=== PATIENT | female | born 1970 | race Caucasian/White ===

== ENCOUNTER 2022-07-25 21:28 | Emergency (ER) | payer MEDICARE, SELFPAY ==
[2022-07-25 21:30] VITALS: BP 140/81; PULSE 71; RESP 20; TEMP 36.6; O2SAT 93; BMI 84.9
[2022-07-25 21:50] VITALS: PULSE 71
--- NOTE | 2022-07-25 22:02 | ED_ITS ---
HPI - Extremity Injury (Lower) General Chief Complaint: Extremity Injury, Lower Stated Complaint: LOWER EXTREMITY INJURY Time Seen by Provider: 07/25/22 21:58 Source: patient Mode of arrival: ambulance Limitations: no limitations History of Present Illness HPI Narrative: patient has chronic numbness of her left lower extremity. Has left foot drop and wears AFO brace. has walk in tub. Step into tub with her right foot. when she step in with the left foot it twisted. She now presents via Squad complaining of pain of the ankle. Denies other injury MD complaint: Reports ankle injury Onset (ago): hour(s) Injury: Left: ankle Related Data Home Medications Medication Instructions Recorded Confirmed apixaban 5 mg tablet (Eliquis) 5 mg PO DAILY 07/25/22 07/25/22 gabapentin 300 mg capsule 300 mg PO BID 07/25/22 07/25/22 metoprolol tartrate 25 mg tablet 25 mg PO DAILY 07/25/22 07/25/22 solifenacin 5 mg tablet 5 mg PO DAILY 07/25/22 07/25/22 Allergies Allergy/AdvReac Type Severity Reaction Status Date / Time No Known Drug Allergies Allergy Verified 07/25/22 21:35 Review of Systems ROS Status of ROS 10 or more systems reviewed and unremarkable except as noted in history and below [facility] PFS Social History Smoking status: Never smoker Exam Constitutional Vital Signs - 24 hr 07/25/22 21:30 07/25/22 21:50 Temperature 97.9 F Pulse Rate [Monitor] 71 71 Respiratory Rate 20 Blood Pressure [Right Arm] 140/81 H Pulse Oximetry 93 L Oxygen Delivery Method Room Air Common normals: no apparent distress, oriented x3 and alert HENMT Common normals: normocephalic and head/scalp atraumatic Eye Common normals: PERRL and EOMs intact bilaterally Respiratory Common normals: normal respiratory effort, no retractions and no use of acc essory muscles Cardio Common normals: no JVD, regular rate, regular rhythm, S1 normal heart sound and S2 normal heart sound GI Common normals: Normal to inspection, nondistended, normoactive bowel sounds present Extremity Other: mild swelling left lat malleolus. No discoloration. Mild tenderness Neuro Common normals: oriented x3 and CN's II-XII intact bilaterally Psych Appearance: grossly normal Course Vital Signs Vital signs: Vital Signs Temperature 97.9 F 07/25/22 21:30 Pulse Rate 71 07/25/22 21:30 Respiratory Rate 20 07/25/22 21:30 Blood Pressure 140/81 H 07/25/22 21:30 Pulse Oximetry 93 L 07/25/22 21:30 Oxygen Delivery Method Room Air 07/25/22 21:30 Temperature 97.9 F 07/25/22 21:30 Pulse Rate 71 07/25/22 21:50 Respiratory Rate 20 07/25/22 21:30 Blood Pressure 140/81 H 07/25/22 21:30 Pulse Oximetry 93 L 07/25/22 21:30 Oxygen Delivery Method Room Air 07/25/22 21:30 MDM - Extremity Injury (Lower) MDM Narrative Medical decision making narrative: patient presents after twisting her left ankle stepping into her walk in tub. she has drop foot left ankle. Exam with mild swelling and tenderness. Xray of the left ankle and foot neg. Patient informed of the diagnosis of ankle sprain and discharged home Discharge Plan Discharge Chief Complaint: Extremity Injury, Lower Clinical Impression: Ankle sprain and strain Patient Disposition: Home, Self-Care Prescriptions / Home Meds: No Action Eliquis 5 mg tablet 5 mg PO DAILY gabapentin 300 mg capsule 300 mg PO BID metoprolol tartrate 25 mg tablet 25 mg PO DAILY solifenacin 5 mg tablet 5 mg PO DAILY Instructions: Ankle Sprain (ED) Stand Alone Forms: Portal Instructions Referrals: Physician,Non-Staff, MD [Primary Care Provider] - 1 week Follow Up Appointments: follow up with the family doctor next week
--- NOTE | 2022-07-25 22:09 | XR_ITS ---
The [address] [address] Patient Name: LUIS DANIEL SMITH MRN: [id number] date: 1970 Sex: F Assigned Patient Location: ER Current Patient Location: ER Accession/Order Number: [id number] Exam Date: 07/25/2022 22:20 Report Date: 07/25/2022 22:46 At the request of: KEV RAMIREZ Procedure: XR foot LT min 3V EXAM: XR foot LT min 3V, XR ankle LT min 3V HISTORY: Posterior foot getting into tub COMPARISON: None. TECHNIQUE: 3 views of the ankle and 3 views of the foot FINDINGS: Global decreased osseous mineralization and soft tissue irregularities consistent with patient's nerve damage. No visualized acute fracture, dislocation, subluxation or osseous lesion. No acute soft tissue edema. Joint spaces are unremarkable. IMPRESSION: No visualized acute irregularity. Electronically authenticated by: BRAD RUFFIN Date: 07/25/2022 22:46
--- NOTE | 2022-07-25 22:09 | XR_ITS ---
The [address] [address] Patient Name: LUIS DANIEL SMITH MRN: [id number] date: 1970 Sex: F Assigned Patient Location: ER Current Patient Location: ER Accession/Order Number: [id number] Exam Date: 07/25/2022 22:20 Report Date: 07/25/2022 22:46 At the request of: KEV RAMIREZ Procedure: XR ankle LT min 3V EXAM: XR foot LT min 3V, XR ankle LT min 3V HISTORY: Posterior foot getting into tub COMPARISON: None. TECHNIQUE: 3 views of the ankle and 3 views of the foot FINDINGS: Global decreased osseous mineralization and soft tissue irregularities consistent with patient's nerve damage. No visualized acute fracture, dislocation, subluxation or osseous lesion. No acute soft tissue edema. Joint spaces are unremarkable. IMPRESSION: No visualized acute irregularity. Electronically authenticated by: BRAD RUFFIN Date: 07/25/2022 22:46
== END 2022-07-26 00:09 | disposition home or self-care (01) ==
PROVIDERS: Emergency Provider Internal Medicine
DX: S93.402A Sprain of unspecified ligament of left ankle, initial encounter (principal); X50.1XXA Overexertion from prolonged static or awkward postures, initial encounter; M21.372 Foot drop, left foot; Z79.899 Other long term (current) drug therapy; Z79.01 Long term (current) use of anticoagulants
CPT/HCPCS: 73610; 73630; 99283

== ENCOUNTER 2022-08-06 10:05 | Outpatient (OUT) | payer MEDICARE, SELFPAY ==
--- NOTE | 2022-08-06 10:18 | XR_ITS ---
The [address] [address] Patient Name: LUIS DANIEL SMITH MRN: [id number] date: 1970 Sex: F Assigned Patient Location: [facility] Current Patient Location: [facility] Accession/Order Number: [id number] Exam Date: 08/06/2022 10:35 Report Date: 08/06/2022 11:13 At the request of: LON IBRAHIM Procedure: XR foot LT min 3V PROCEDURE: XR foot LT min 3V DATE: 08/06/2022 9:35 AM CDT COMPARISONS: 07/25/2022 CLINICAL INDICATION: FALL, SUBSEQUENT ENCOUNTER W19.XXXD FINDINGS: There is no evidence of fractures or other acute osseous abnormalities. There is diffuse bone demineralization as on previous exam 07/25/2022. Soft tissue swelling is noted about the foot and ankle. There is a small spur off the posterior inferior os calcis. IMPRESSION: 1. Bone demineralization 2. No evidence of foot fracture . Electronically authenticated by: SARAH MARCELO Date: 08/06/2022 11:13
--- NOTE | 2022-08-06 10:18 | XR_ITS ---
The [address] [address] Patient Name: LUIS DANIEL SMITH MRN: [id number] date: 1970 Sex: F Assigned Patient Location: [facility] Current Patient Location: [facility] Accession/Order Number: [id number] Exam Date: 08/06/2022 10:35 Report Date: 08/06/2022 11:10 At the request of: LON IBRAHIM Procedure: XR ankle LT min 3V PROCEDURE: XR ankle LT min 3V DATE: 08/06/2022 9:35 AM CDT COMPARISONS: 07/25/2022 CLINICAL INDICATION: FALL, SUBSEQUENT ENCOUNTER W19.XXXD Requisition states: Left foot and ankle pain x2 weeks. FINDINGS: There is irregularity of the distal fibula, better seen on today's exam than on previous exam. This could represent nondisplaced avulsion of the distal fibula.. The ankle mortise is intact. There is diffuse bone demineralization, stable. There is diffuse soft tissue swelling, stable from previous exam. There are small spur off the posterior inferior os calcis. There is diffuse soft tissue swelling about the foot and ankle. IMPRESSION: 1. Bone demineralization 2. Soft tissue swelling 3. Today's images show irregularity of the distal fibula which may represent recent or subacute minimally distracted avulsion fracture related to recent trauma. This is not well visualized on previous ankle radiographs from 07/25/2022 . Electronically authenticated by: SARAH MARCELO Date: 08/06/2022 11:10
== END 2022-08-06 10:06 | disposition home or self-care (01) ==
LOC: RAD 10:11
PROVIDERS: PCP Family Medicine; Visit Provider Family Medicine
DX: M79.672 Pain in left foot (principal); W19.XXXD Unspecified fall, subsequent encounter
CPT/HCPCS: 73610; 73630

== ENCOUNTER 2022-10-20 13:43 | Emergency (ER) | payer MEDICARE, SELFPAY ==
[2022-10-20 14:03] VITALS: BP 127/96; PULSE 84; RESP 16; TEMP 36.7; O2SAT 95; BMI 38.5
--- NOTE | 2022-10-20 14:04 | ED_ITS ---
HPI - Female Genitourinary General Chief complaint: Urogenital-Female Stated complaint: BOTTOM AREA BLEEDING Time Seen by Provider: 10/20/22 13:50 History of Present Illness HPI Narrative: 52-year-old female presents for blood in her urine. She'll only sees it when she urinates. No blood in her stool. She has decreased sensation from her waist down because of an old surgery so she doesn't have much sensation. She is able to walk with a walker. No complaints of back pain. There was no injury. Symptoms are intermittent. No fever or vomiting. Related Data Home Medications Medication Instructions Recorded Confirmed apixaban 5 mg tablet (Eliquis) 5 mg PO DAILY 07/25/22 07/25/22 gabapentin 300 mg capsule 300 mg PO BID 07/25/22 07/25/22 metoprolol tartrate 25 mg tablet 25 mg PO DAILY 07/25/22 07/25/22 solifenacin 5 mg tablet 5 mg PO DAILY 07/25/22 07/25/22 Previous Rx's Medication Instructions Recorded cephalexin 500 mg capsule 500 mg PO TID 7 days #21 caps 10/20/22 Allergies Allergy/AdvReac Type Severity Reaction Status Date / Time adhesive tape AdvReac Intermediate Rash Verified 10/20/22 14:07 Review of Systems ROS Narrative A ten point review of systems is negative except as noted above. PFSH PFSH Social History Smoking status: Never smoker Exam Narrative Exam Narrative: Nurses note and vital signs reviewed and patient is not hypoxic. General: The patient appears well and in no apparent distress. Patient is resting comfortably on cart. Skin: Warm, dry, no pallor noted. There is no rash noted. Head: Normocephalic, atraumatic Eye: Normal conjunctiva, no drainage Ears, Nose, Mouth, and Throat: oral mucosa is moist. Nares patent. Cardiovascular: Regular Rate and Rhythm Respiratory: Patient is in no distress, no accessory muscle use, lungs are clear to auscultation, no wheezing, rales or rhonchi Back: non-tender GI: obese and nontender Musculoskeletal: The patient has no evidence of calf tenderness, no pitting edema, symmetrical pulses noted bilaterally Neurological: A&O, normal speech Psychiatric: Cooperative Constitutional Vital Signs, click to edit/add: Last Vital Signs Temp 98.1 F 10/20/22 14:03 Pulse 84 10/20/22 14:03 Resp 16 10/20/22 14:03 BP 127/96 H 10/20/22 14:03 Pulse Ox 95 10/20/22 14:03 O2 Del Method Room Air 10/20/22 14:03 Course Vital Signs Vital signs: Vital Signs Temperature 98.1 F 10/20/22 14:03 Pulse Rate 84 10/20/22 14:03 Respiratory Rate 16 10/20/22 14:03 Blood Pressure 127/96 H 10/20/22 14:03 Pulse Oximetry 95 10/20/22 14:03 Oxygen Delivery Method Room Air 10/20/22 14:03 Temperature 98.1 F 10/20/22 14:03 Pulse Rate 84 10/20/22 14:03 Respiratory Rate 16 10/20/22 14:03 Blood Pressure 127/96 H 10/20/22 14:03 Pulse Oximetry 95 10/20/22 14:03 Oxygen Delivery Method Room Air 10/20/22 14:03 MDM - Female Genitourinary MDM Narrative Medical decision making narrative: urinary tract infection identified and she's prescribed Keflex. She was started on here. I've no clinical suspicion of pyelonephritis. Treatment diagnosis and follow up are discussed with the patient. Differential Diagnosis Differential diagnosis: Likely urinary tract infection and other (kidney stone) Lab Data Attestation: I reviewed the patient's lab results. Labs: Lab Results 10/20/22 Range/Units 14:15 Urine Color Dk red A (YELLOW) Urine Clarity Turbid A (CLEAR) Urine pH 5.5 (5.0-9.0) Ur Specific [place] 1.015 (1.005-1.025) Urine Protein 100 A (NEG/TRACE) mg/dL Urine Glucose (UA) Negative (NEGATIVE) mg/dL Urine Ketones Negative (NEGATIVE) mg/dL Urine Occult Blood Large A (NEGATIVE) Urine Nitrite Negative (NEGATIVE) Urine Bilirubin Negative (NEGATIVE) Urine Urobilinogen 0.2 (0.2-1.0) EU/dL Ur Leukocyte Esterase Moderate A (NEGATIVE) Urine RBC >100 A (0-2) #/HPF Urine WBC 75-100 A (NONE SEEN) #/HPF Ur Squamous Epith Cells Few A (NONE/RARE) #/LPF Urine Bacteria Large A (NONE SEEN) #/HPF Urine Mucus None seen (NONE SEEN) Discharge Plan Discharge Chief Complaint: Urogenital-Female Clinical Impression: Urinary tract infection Patient Disposition: Home, Self-Care Time of Disposition Decision: 14:51 Condition: Good Mode of Transportation: Private Vehicle Prescriptions / Home Meds: New cephalexin 500 mg capsule 500 mg PO TID 7 Days Qty: 21 0RF No Action Eliquis 5 mg tablet 5 mg PO DAILY gabapentin 300 mg capsule 300 mg PO BID metoprolol tartrate 25 mg tablet 25 mg PO DAILY solifenacin 5 mg tablet 5 mg PO DAILY Instructions: Urinary Tract Infection in Women (ED) Stand Alone Forms: Portal Instructions Referrals: LON IBRAHIM [Primary Care Provider] - 1 week
[2022-10-20 14:31] LABS: Bilirubin Urine NEGATIVE (NEGATIVE); Blood Urine LARGE (NEGATIVE); Glucose Urine UA NEGATIVE (NEGATIVE); Ketones Urine NEGATIVE (NEGATIVE); Leukocyte Esterase Urine MODERATE (NEGATIVE); Nitrite Urine NEGATIVE (NEGATIVE); Protein Urine 100 mg/dL (NEG/TRACE); Specific Gravity Urine 1.015 (1.005-1.025); Urobilinogen Urine 0.2 EU/dL (0.2-1.0); pH Urine 5.5 (5.0-9.0)
[2022-10-20 14:34] LABS: Color Urine DK RED (YELLOW)
[2022-10-20 14:35] LABS: Clarity Urine TURBID (CLEAR)
[2022-10-20 14:36] LABS: Bacteria Urine LARGE #/HPF (NONE SEEN); Mucus Urine NONE SEEN (NONE SEEN); RBC Urine >100 #/HPF (0-2); Squamous Epithelial Cell Urine FEW #/LPF (NONE/RARE); WBC Urine 75-100 #/HPF (NONE SEEN)
[2022-10-20] MEDS: CEPHALEXIN 500 MG CAPSULE PO (15:04)
== END 2022-10-20 15:20 | disposition home or self-care (01) ==
PROVIDERS: Emergency Provider Emergency Medicine; PCP Family Medicine
DX: N39.0 Urinary tract infection, site not specified (principal); Z79.899 Other long term (current) drug therapy; Z79.01 Long term (current) use of anticoagulants
CPT/HCPCS: 81001; 87086; 87150; 87186; 99283

== ENCOUNTER 2023-03-01 09:40 | Outpatient (OUT) | payer MEDICARE, SELFPAY ==
--- NOTE | 2023-03-01 09:46 | MM_ITS ---
Patient Name: LUIS DANIEL SMITH MR#: [id number] : 1970 Exam Date: 03/01/2023 Ordering Doctor: DR LON IBRAHIM RADIOLOGY REPORT PROCEDURE: MM TOMOSYNTHESIS SCREENING BI COMPARISON: MAMMO SAKINA SCREEN, 09/04/2016. MAMMO SAKINA SCREEN, 09/03/2020. INDICATIONS: screening Calculator Name NCI Breast Cancer Risk Assessment Tool 5 Year Breast Cancer Risk 1.20% Lifetime Breast Cancer Risk 9.40% Personal Breast Cancer No Personal Ovarian Cancer No Treatments None Family Cancers None LOCATION: [facility] BREAST COMPOSITION: Scattered areas fibroglandular density. FINDINGS: DIAGNOSTIC CATEGORY 2--BENIGN FINDING. NO CHANGE FROM COMPARISON. Scattered benign-appearing calcifications are present. Bilateral partially inverted nipples, grossly stable RIGHT BREAST: No significant suspicious finding. LEFT BREAST: No significant suspicious finding. RECOMMENDATIONS: ROUTINE MAMMOGRAM AND CLINICAL EVALUATION IN 12 MONTHS. PLEASE NOTE: A NORMAL MAMMOGRAM DOES NOT EXCLUDE THE POSSIBILITY OF BREAST CANCER. A CLINICALLY SUSPICIOUS PALPABLE LUMP SHOULD BE BIOPSIED. Dictated by: Harjinder Murdock MD on 03/09/2023 at 14:38 Approved by: Harjinder Murdock MD on 03/09/2023 at 14:46
== END 2023-03-01 09:41 | disposition home or self-care (01) ==
LOC: MAMMO 09:40
PROVIDERS: PCP Family Medicine; Visit Provider Family Medicine
DX: Z12.31 Encounter for screening mammogram for malignant neoplasm of breast (principal)
CPT/HCPCS: 77063; 77067

== ENCOUNTER 2023-04-28 07:52 | Outpatient (OUT) | payer MEDICARE, SELFPAY ==
--- OUTSIDE RECORDS SUMMARY | 2023-04-28 07:57 | XMS_ITS | CCD ---
Author Organization [facility] Care Team Providers Care Bed Setter Name Role Phone KAELYN ZAIDI Referring Unavailable HECTOR, RUGEN M Primary Care Unavailable Hetcor Rugen M Primary Care Provider [phone] AHAKAELYN SANTOS Admitting Unavailable KAELYN ZAIDI Attending Unavailable HECTOR, RUGEN M Primary Care Unavailable GROUP, PSYCH COVERAGE Consulting Unavailabl e HECTOR, RUGEN M Primary Care Unavailable TIM KIM Consulting Unavailable FIDEL GUERRERO Admitting Unavailable IONA VANG Attending Unavailable YOLANDA FIDEL Consulting Unavailable ARLINE MOHJAILENE S Consulting Unavailable CYPEARLOR JANINA M Referring Unavailable HECTOR, RUGEN M Primary Care Unavailable CYJANINA GIBBS Referring Unavailable HECTOR, RUGEN M Primary Care Unavailable AK Procedure Practitioner Unavailab LON Arceo Primary Care Unavailable UNKNOWN, PROVIDER Admitting Unavailable UNKNOWN, PROVIDER Surgeon Unavailable UNKNOWN, PROVIDER Attending Unavailable LON IBRAHIM Referring Unavailable LON IBRAHIM Primary Care Physician [phone] Lon Ibrahim Unavailable DO Lon Ibrahim Primary Care Provider DO Lon Ibrahim Attending Provider [phone] LON IBRAHIM Attending Unavailable DR LON IBRAHIM Primary Care Unavailable DR LON IBRAHIM Admitting Unavailable Lon Ibrahim DO Primary Care Provider Unavailab Lon Arceo Primary Care Provider [phone] Ann Marie Mccrod CNP Unavailable Nicole KEENE Attending Unavailable Nicole KEENE Attending Unavailable Nicole KEENE Attending Unavailable Nicole KEENE Attending Unavailable Nicole KEENE Referring Unavailable RICE, Nicole W Attending Unavailable Cheatham, Mihir L Attending Unavailable RICE, Nicole W Attending Unavailable RICE, Nicole W Referring Unavailable Cheatham, Mihir L Attending Unavailable MARYJANE, ANGELITA E Attending Unavailable RICE, Nicole W Admitting Unavailable RICE, Nicole W Attending Unavailable RICE, Nicole W Referring Unavailable RICE, Nicole W Attending Unavailable RICE, Nicole W Admitting Unavailable MARYJANE, ANGELITA E Admitting Unavailable MARYJANE, ANGELITA E Attending Unavailable RICE, Nicole W Admitting Unavailable RICE, Nicole W Attending Unavailable Kuns DO, Lon R Primary Care Provider Unavailab le LON ANTONIO Referring Unavailab le KUNS, LON R Primary Care Unavailable BRYCE LARA Referring Unavailable KUNS, LON R Primary Care Unavailable ILSA PERALTA Attending Unavailable CAM CARVER Referring Unavailable Kelly Mcdowell Unavailable LEATHA Mcdowell Attending Provider Kuns, DO Lon Primary Care Provider Kuns, DO Lon Attending Provider Kuns, Lon Admitting Unavailable Kuns, Lon Primary Care Unavailable Kuns, Lon Attending Unavailable Kuns, Lon Admitting Unavailable Kuns, Lon Primary Care Unavailable Kuns, Lon Attending Unavailable NO FAMILY, PHYSICIAN Primary Care Unavailable Kelly Mcdowell Admitting Unavailable Kelly Mcdowell Attending Unavailable KUNS, LON BC Primary Care Unavailable BONUSTUANCHAMP Attending Unavailable KUNS, LON BC Primary Care Unavailable BONUS, CHAMP Referring Unavailable KUNS, LON BC Primary Care Unavailable PELLEMARITAMOISES Referring Unavailable PELLEMOISES Attending Unavailable WORTHAMS, JANINA Referring Unavailable KUNS, LON BC Primary Care Unavailable WORTHAMS, JANINA Referring Unavailable KUNS, LON BC Primary Care Unavailable WORTHAMS, JANINA Referring Unavailable KUNS, LON BC Primary Care Unavailable WORTHAMS, JANINA Referring Unavailable KUNS, LON BC Primary Care Unavailable APURVA CAMPA Attending Unavailable KUNS, LON BC Primary Care Unavailable APURVA CAMPA Referring Unavailable LON ANTONIO Referring Unavailab le KUNS, LON BC Primary Care Unavailable BRYCE LARA Attending Unavailable PELLEMOISES Attending Unavailable KUNS, LON BC Primary Care Unavailable BRYCE LARA Referring Unavailable PELLEMOISES Referring Unavailable KUNS, LON BC Primary Care Unavailable LON IBRAHIM Primary Care Unavailable MOISES WILLIS Referring Unavailable Allergies Allergy Classification Reported Allergen(s) Allergy Type Date of Onset Reaction(s) Facility (7 sources) Adhesive Tape; Translations: [Tape] Drug allergy Eruption (morphologic abnormality) [facility] (20 sources) Amoxicillin / Clavulanate Drug Allergy diarrhea, vomiting [facility] Other (20 sources) oxyCODONE; Translations: [OXYCODONE] Drug Allergy 3 Unknown [facility] (3 sources) Adhesive Tape; Translations: [adhesive tape] Propensity to adverse reactions 1 itchy rash [facility] (19 sources) Amoxicillin / Clavulanate; Translations: [AMOXICILLIN-PO T CLAVULANATE] Drug Allergy 3 Diarrhea [facility] (19 sources) Adhesive Tape-Silicones; Translations: [ADHESIVE TAPE-SILICONES] Drug Allergy 9 Rash [facility] (1 source) ALLERGIES NOT ON FILE; Translations: [ALLERGIES NOT ON FILE] Propensity to adverse reactions (disorder) [facility] (1 source) Amoxicillin Drug Allergy 4 [facility] (1 source) Clavulanate Drug Allergy 4 [facility] (1 source) oxyCODONE Drug Allergy 4 [facility] Medications Current Medications Medication Drug Class(es) Dates Sig (Normalized) Sig (Original) Acetaminophen (20 sources) Start: 11-16-2018 acetaminophen Refills(s) 0 Start Date: 11/16/18 Status: Ordered Start: 08-31-2018 take 2 tablets by mo uth every six hours as needed for pain acetaminophen (TYLENOL) 500 MG tablet Take 2 tablets by mouth every 6 hours as needed for Pain 60 tablet 0 08/31/2018 Active take 1 capsule by mo uth every six hours Acetaminophen 500 MG 1 capsule as needed Orally every 6 hrs Active take 1 capsule by mo uth every six hours as needed Acetaminophen 500 MG 1 capsule as needed Orally every 6 hrs Active Cranberry Conc-Ascorbic Acid (2 sources) Non-Standardized Food Allergenic Extract, Non-Standardized Plant Allergenic Extract, Vitamin C Start: 03-21-2019 take 1 tablet by mouth once daily Cranberry Conc-Ascorbic Acid (Cranberry Plus Vitamin C) 140-100 mg Capsule Active 1 TAB PO Daily March 21, 2019 12:00am Start: 03-21-2019 take 1 tablet by walter th once daily Cranberry Conc-Ascorbic Acid (Cranberry Plus Vitamin C) 140-100 mg Capsule Active 1 TAB PO Daily March 21, 2019 1:00am azithromycin 250 mg oral tablet (8 sources) Macrolide Antimicrobial Start: 02-24-2021 Zithromax Z-Qasim 250 MG 2 tablet on the first day, then 1 tablet daily for 4 days Orally Once a day for 5 day(s) Feb, Active B Complex 100 (6 sources) Start: 11-16-2018 B Complex 100 sacod, Refill(s) 0 Start Date: 11/16/18 Status: Ordered b complex vitamins capsule (4 sources) take 1 capsule by mouth once daily b complex vitamins capsule Take 1 capsule by mouth daily 0 Active Balance B-100 - (20 sources) take 1 tablet by mouth once daily Balance B-100 - 1 tablet Orally once a day Active take 1 tablet by mouth once lee ann y Balance B-100 - 1 tablet Orally once a day for 90 days Active Biotin (20 sources) Start: 07-25-2020 biotin Oral, B edtime, Refills(s) 0 Start Date: 07/25/20 Status: Ordered Start: 03-21-2019 take 1 capsule by mo ut once daily Biotin Active 1 CAP PO Daily March 21, 2019 12:00am take 1 capsule by mo uth every twenty-four hours Biotin 5000 MCG 1 capsule Orally Once a day Active take 1 capsule by mo uth once daily Biotin 5000 MCG 1 capsule Orally Once a day Active Bisacodyl (8 sources) Stimulant Laxative Start: 11-16-2018 bisacodyl R efills(s) 0 Start Date: 11/16/18 Status: Ordered Start: 08-31-2018 take 1 tablet by walter th once daily as needed for constipation bisacodyl (DULCOLAX) 5 MG EC tablet Take 1 tablet by mouth daily as needed for Constipation 5 tablet 0 08/31/2018 Active calcium carbonate 750 mg chewable tablet (20 sources) Start: 03-21-2019 take 2 tablets by mouth twice daily Calcium Carbonate (Tums Extra Strength Smoothies) 300 mg (750 mg) Tablet,Chewable Active 2 TAB PO Twice daily March 21, 2019 12:00am Start: 11-16-2018 calcium carbon ate Refills(s) 0 Start Date: 11/16/18 Status: Ordered take 1000 mg by mout h three times daily calcium carbonate (TUMS ULTRA) 400 mg (1,000 mg) chew Take 1,000 mg by mouth three times daily. 0 Active Comment on above: Take 1,000 mg by walter th three times daily. Calcium Carbonate Antacid 750 MG (20 sources) take 1 tablet by mouth once daily Calcium Carbonate Antacid 750 MG 1 tablet Orally Once a day Active cefdinir 300 mg oral capsule (2 sources) Cephalosporin Antibacterial take 1 capsule by mouth twice daily cefdinir (OMNICEF) 300 MG capsule Take 300 mg by mouth 2 times daily 0 Active cephalexin 500 mg oral capsule (6 sources) Cephalosporin Antibacterial Start: 3 take 1 capsule by mouth every eight hours Cephalexin 500 MG 1 capsule Orally every 8 hrs for 7 Jan, Active Start: 09-11-2021 take 1 capsule by [facility] once daily Keflex 250 mg Cap 250 mg = 1 cap(s), Oral, Daily, # 30 cap(s), Refills(s) 11, Pharmacy: [facility]/pharmacy #[id number], 187, helen, 07/09/21 13:05:00 EDT, Height/Length Dosing, 110, kg, 07/21/21 14:28:00 EDT, Weight Dosing Start Date: 09/11/21 Status: Ordered Start: 04-29-2021 take 1 capsule by [facility] once daily Keflex 250 mg Cap 250 mg = 1 cap(s), Oral, Daily, # 30 cap(s), Refills(s) 3, Pharmacy: [facility]/pharmacy #[id number], 187, helen, 03/20/21 9:31:00 EST, Height/Length Dosing, 110, kg, 03/20/21 9:31:00 EST, Weight Dosing Start Date: 04/29/21 Status: Ordered cholecalciferol 0.125 mg oral tablet (20 sources) Vitamin D Start: 02-09-2021 take 1 tablet by mouth once daily Cholecalciferol (Vitamin D3) (Vitamin D3) 125 mcg (5,000 unit) Tablet Active 125 MCG PO Daily March 19, 2020 12:00am Start: 11-21-2019 take 1 capsule by mo [facility] every twenty-four hours Vitamin D (Cholecalciferol) 50 MCG (1999 UT) 1 capsule Orally Once a day 5000 IU OTC Nov, Active cholecalciferol (VITAMIN D3) 5,000 unit tab Vitamin D3 1000 IU daily 0 Active Comment on above: Vitamin D3 1000 IU daily ciprofloxacin 500 mg oral tablet (4 sources) Quinolone Antimicrobial Start: 2 take 1 tablet by mouth twice daily Cipro 500 mg Tab 500 mg = 1 tab(s), Oral, BID, # 14 tab(s), Refills(s) 0, Pharmacy: [facility]/pharmacy #[id number], 187, cm, 12/22/21 15:10:00 EST, Height/Length Dosing, 110, kg, 12/22/21 15:10:00 EST, Weight Dosing Start Date: 12/22/21 Status: Ordered Start: 07-09-2021 take 1 tablet by [facility] once daily Cipro 500 mg Tab 500 mg = 1 tab(s), Oral, As Directed, Take 1 tablet day before procedure, then 1 tablet day of procedure after procedure., # 2 tab(s), Refills(s) 0, Pharmacy: [facility]/pharmacy #[id number], 187, cm, 07/09/21 13:05:00 EDT, Height/Length Dosing, 110, kg, 07/09/21... Start Date: 07/09/21 Status: Ordered Compression stockings, 20-30mmHg, calf 20-30mmHg (20 sources) Start: 06-11-[address] ockings, 20-30mmHg, calf 20-30mmHg as directed externally daily as directed June, Active Cranberry preparation (20 sources) Non-Standardized Food Allergenic Extract, Non-Standardized Plant Allergenic Extract Start: 11-16-2018 Cranberry Refill(s) 0 Start Date: 11/16/18 Status: Ordered take 1 tablet by mouth twice rosie ly Cranberry 400 MG TABS Take 1 tablet by mouth 2 times daily For urine 0 Active Cranberry 400 MG as directed Orally Active take 1 tablet by mouth twice rosie ly Cranberry 400 MG TABS Take 1 tablet by mouth 2 times daily For urine 0 Active cyclobenzaprine hydrochloride 10 mg oral tablet (2 sources) Muscle Relaxant take 1 tablet by mouth three times daily as needed for muscle spasms cyclobenzaprine (FLEXERIL) 10 MG tablet Take 10 mg by mouth 3 times daily as needed for Muscle spasms 0 Active docosahexaenoic acid 120 mg / eicosapentaenoic acid 180 mg oral capsule (2 sources) take 1 capsule by mouth once daily Defiance-3 Fatty Acids (FISH OIL) 1000 MG CAPS Take 1,000 mg by mouth daily LAST DOSE 08/16/2018 0 Active Defiance 8-Gnc-Mgy-Fish Oil (2 sources) Start: 03-21-19 20 take 1000 mg by mouth once daily [place] 6-Riz-Upc-Fish Oil Active 1000 MG PO Daily March 21, 2019 12:00am Start: 03-21-2019 take 1000 mg by mout h once daily [place] 7-Awe-Nmh-Fish Oil Active 1000 MG PO Daily March 21, 2019 1:00am docusate sodium 100 mg oral capsule (20 sources) Start: 03-21-2019 take 100 mg by mouth three times daily Docusate Sodium Active 100 MG PO Three times daily March 21, 2019 12:00am Start: 11-16-2018 docusate sodiu m Refills(s) 0 Start Date: 11/16/18 Status: Ordered Start: 08-31-2018 take 1 capsule by mo uth twice daily docusate sodium (COLACE, DULCOLAX) 100 MG CAPS Take 100 mg by mouth 2 times daily 30 capsule 0 08/31/2018 Active Docusate Sodium 250 mg capsule Stool Softener Active 0 Active Comment on above: Stool Softener Activ e 12 hr guaiFENesin 600 mg extended release oral tablet (2 sources) take 2 tablets by mouth twice daily as needed for congestion, then take 1 tablet by mouth as needed for congestion guaiFENesin (MUCINEX) 600 MG extended release tablet Take 1,200 mg by mouth 2 times daily as needed for Congestion 0 Active hydrOXYzine hydrochloride 10 mg oral tablet (2 sources) Antihistamine take 1 tablet by mouth three times daily as needed hydrOXYzine (ATARAX) 10 MG tablet Take 10 mg by mouth 3 times daily as needed for Itching 0 Active lidocaine 0.04 mg/mg medicated patch (2 sources) Antiarrhythmic, Amide Local Anesthetic Start : 09-01 apply 1 dose transdermal route once daily lidocaine 4 % external patch Place 1 patch onto the skin daily 15 patch 0 09/01/2018 Active magnesium hydroxide 80 mg/ml oral suspension (2 sources) Start : 08-31 take 30 mL by mouth once daily as needed for constipation magnesium hydroxide (MILK OF MAGNESIA) 400 MG/5ML suspension Take 30 mLs by mouth daily as needed for Constipation 1 Bottle 0 08/31/2018 Active menthol 3 mg oral lozenge (2 sources) menthol-cetylpyr idiniu m (CEPACOL) 3 MG lozenge Take 1 lozenge by mouth every 2 hours as needed for Sore Throat 0 Active methylPREDNISolone 4 mg oral tablet (8 sources) Corticosteroid Start : 02-24 methylPREDNISolone 4 MG as directed Orally Feb, Active 24 hr metoprolol succinate 25 mg extended release oral tablet (20 sources) beta-Adrenergic Pilo Start : 04-09 take 1 mg by mouth once daily metoprolol 25 mg ER Tab mg tab(s), Oral, Daily, Refills(s) 0 Start Date: 04/09/20 Status: Ordered Start: 03-19-2020 take 1 tablet by walter th twice daily metoprolol tartrate, short acting, (LOPRESSOR) 25 mg tablet metoprolol tartrate 25 mg tablet TAKE 1/2 TABLET BY MOUTH TWICE DAILY 0 03/19/2020 Active Start: 03-19-2020 take 12.5 mg by mout h twice daily Metoprolol Tartrate Active 12.5 MG PO Twice daily March 19, 2020 12:00am take 0.5 tablet by m outh twice daily at mealtime Metoprolol Tartrate 25 MG 1/2 tablet with food Orally Twice a day for 90 days Active metoprolol tartr ate (LOPRESSOR) 25 MG tablet Take 12.5 mg by mouth 2 times daily 0 Active Comment on above: metoprolol tartrate 25 mg tablet TAKE 1/2 TABLET BY MOUTH TWICE DAILY Multi Vitamin+ (6 sources) Start: 9 Multi Vitamin+ Refill(s) 0 Start Date: 11/16/18 Status: Ordered Multiple Vitamin (MVI, BARIATRIC ADVANTAGE MULTI-FORMULA, CHEW TAB) (4 sources) Multiple Vitamin (MVI, BARIATRIC ADVANTAGE MULTI-FORMULA, CHEW TAB) Take 1 tablet by mouth 0 Active Multiple Vitamins-Minerals (WOMENS MULTI VITAMIN & MINERAL PO) (2 sources) take 1 tablet by mouth once daily Multiple Vitamins-Minerals (WOMENS MULTI VITAMIN & MINERAL PO) Take 1 tablet by mouth daily 0 Active Multivitamin Adult - (20 sources) Start: 7 take 1 tablet by mouth once daily Multivitamin Adult - 1 tablet Orally QD 14 Oct, 2016 Active Multivitamin preparation (2 sources) Start: 0 take 1 tablet by mouth once daily Multivitamin Active 1 TAB PO Daily March 21, 2019 12:00am Start: 03-21-2019 take 1 tablet by walter th once daily Multivitamin Active 1 TAB PO Daily March 21, 2019 1:00am Defiance 3 1000 MG (20 sources) take 1 capsule by mouth once daily Defiance 3 1000 MG 1 capsule Orally Once a day for 90 days Active Defiance-3 (6 sources) Start: Defiance-3 Refill(s) 0 Start Date: 11/16/18 Status: Ordered omega-3 acid ethyl esters (half-way) 1000 mg oral capsule (2 sources) take 1 capsule by mouth once daily Defiance-3 Fatty Acids (FISH OIL) 1000 MG CAPS Take 1,000 mg by mouth daily LAST DOSE 08/16/2018 0 Active oxyCODONE hydrochloride 5 mg oral tablet (2 sources) Opioid Agonist take 1 tablet by mouth every four hours as needed for pain oxyCODONE (ROXICODONE) 5 MG immediate release tablet Take 5 mg by mouth every 4 hours as needed for Pain. 0 Active polyethylene glycol 3350 [id number] mg powder for oral solution (2 sources) Osmotic Laxative take 17 g by mouth once daily as needed polyethylene glycol (GLYCOLAX) powder Take 17 g by mouth daily as needed 0 Active sennosides, half-way 8.6 mg oral tablet (2 sources) take 2 tablets by mouth once daily senna (SENOKOT) 8.6 MG tablet Take 2 tablets by mouth nightly 0 Active sertraline 25 mg oral tablet (2 sources) Serotonin Reuptake Inhibitor Start: 019 take 1 tablet by mouth once daily sertraline (ZOLOFT) 25 MG tablet Take 1 tablet by mouth daily 30 tablet 0 08/31/2018 Active 1000 ml sodium chloride 9 mg/ml injection (1 source) Start: 024 End: 0.9 % sodium chloride (NACL 0.9%) infusion Administer at rate defined per CT contrast administration specifications. To be provided with radiology test. 150 mL 0 04/19/2023 04/19/2023 Active Comment on above: Administer at rate d efined per CT contrast administration specifications. To be provided with radiology test. Stool Softener (20 sources) Stool Softener A ctive Tespo Womens Bariatric Complete Vitamin Formula (2 sources) Start: take 1 capsule by mouth twice daily Tespo Womens Bariatric Complete Vitamin Formula Active 1 CAP PO Twice daily March 21, 2019 12:00am Start: 03-21-2019 take 1 capsule by mo uth twice daily Tespo Womens Bariatric Complete Vitamin Formula Active 1 CAP PO Twice daily March 21, 2019 1:00am Vitamin B Complex-Folic Acid (2 sources) Start: 03-21-2019 take 1 tablet by mouth once daily Vitamin B Complex-Folic Acid Active 1 TAB PO Daily March 21, 2019 12:00am Start: 03-21-2019 take 1 tablet by walter th once daily Vitamin B Complex-Folic Acid Active 1 TAB PO Daily March 21, 2019 1:00am Vitamin D (Cholecalciferol) 50 MCG (2000 UT) (20 sources) Start: 11-21-2019 take 1 capsule by mouth once daily Vitamin D (Cholecalciferol) 50 MCG (2000 UT) 1 capsule Orally Once a day 5000 IU OTC Nov, Active Completed/Discontinued Medications Medication Drug Class(es) Dates Sig (Normalized) Sig (Original) acetaminophen 325 mg / HYDROcodone bitartrate 5 mg oral tablet (8 sources) Opioid Agonist Start: 08-24-2019 End: 03-19-2020 take 1 tablet by mouth every four to six hours Hydrocodone-Acetam inophen (Pep) 5-325 mg tablet Discontinued 1 TAB PO EVERY 4-6 HOURS 7 August 30, 2019 March 19, 2020 1:17pm apixaban 5 mg oral tablet (20 sources) Factor Xa Inhibitor Start: 09-13-2018 take 1 tablet by mouth twice daily apixaban (ELIQUIS) 5 mg tab(s) Eliquis 5 mg tablet TAKE 1 TABLET BY MOUTH TWICE A DAY 0 09/13/2018 Active Comment on above: Eliquis 5 mg tablet TAKE 1 TABLET BY MOUTH TWICE A DAY atorvastatin 40 mg oral tablet (2 sources) HMG-CoA Reductase Inhibitor Start: 08-30-2019 End: 03-19-2020 take 40 mg by mouth once daily in the evening Atorvastatin Discontinued 40 MG PO Every evening 0 August 29, 2019 11:00pm March 19, 2020 1:17pm 0.4 ml enoxaparin sodium 100 mg/ml prefilled syringe (2 sources) Low Molecular Weight Heparin Start: 08-27-2019 End: 08-30-2019 inject 40 mg by subcutaneous injection once daily Enoxaparin Discontinued 40 MG SUBCUT Daily August 26, 2019 11:00pm August 30, 2019 10:20am gabapentin 600 mg oral tablet (20 sources) Anti-epileptic Agent Start: 06-23-2022 take 1 tablet by mouth once daily at bedtime gabapentin (NEURONTIN) 600 mg tablet Take 600 mg by mouth daily at bedtime. 0 06/23/2022 Active Start: 03-21-2019 End: 09-23-2020 take 200 mg by mouth twice daily Gabapentin Discontinu ed 200 MG PO Twice daily March 21, 2019 12:00am September 23, 2020 8:16am Start: 11-16-2018 take 1 capsule by mo uth in the morning gabapentin (NEURONTIN) 300 mg capsule TAKE 1 CAPSULE BY MOUTH IN THE MORNING AND IN THE AFTERNOON 0 04/05/2022 Active Start: 04-19-2018 take 400 mg by mouth once daily at bedtime Gabapentin Active 400 MG PO Daily at bedtime March 21, 2019 12:00am take 2 capsules by m out twice daily gabapentin (NEURONTIN) 100 MG capsule Take 200 mg by mouth 2 times daily. Give 2 capsules BID for neuropathy 0 Active Comment on above: Take 600 mg by mouth daily at bedtime. TAKE 1 CAPSULE BY MO UTH IN THE MORNING AND IN THE AFTERNOON iv contrast (will be provided with radiology test) (2 sources) Start: 04-19-2023 End: 04-20-2023 iv contrast (will be provided with radiology test) CT Urogram WO/W Inject, intravenously, once for 1 dose.No IV access, insert saline lock prior to the beginning of sedation, infusion, injection of imaging exam. Discontinue saline lock post exam. If Pt. has a central line or IVAD, may access for administration according to line specific nursing protocol. Once exam is complete flush line and de-access according to line specific nursing protocol in the CT contrast administration guidelines link. 1 Each 0 04/19/2023 04/20/2023 Start: 04-19-2023 End: 04-20-2023 iv contrast (will be provide d with radiology test) CT Urogram WO/W Inject, intravenously, once for 1 dose.No IV access, insert saline lock prior to the beginning of sedation, infusion, injection of imaging exam. Discontinue saline lock post exam. If Pt. has a central line or IVAD, may access for administration according to line specific nursing protocol. Once exam is complete flush line and de-access according to line specific nursing protocol in the CT contrast administration guidelines link. 1 Each 0 04/19/2023 04/20/2023 Active Comment on above: CT Urogram WO/W Inje ct, intravenously, once for 1 dose.No IV access, insert saline lock prior to the beginning of sedation, infusion, injection of imaging exam. Discontinue saline lock post exam. If Pt. has a central line or IVAD, may access for administration according to line specific nursing protocol. Once exam is complete flush line and de-access according to line specific nursing protocol in the CT contrast administration guidelines link. Ketorolac (20 sources) Nonsteroidal Anti-inflammatory Drug, Cyclooxygenase Inhibitor Start: 05-12-2017 Toradol per 15 mg May, 2 cc Start: 05-05-2017 Toradol per 15 mg Apr, 2 cc Start: 11-12-2016 Toradol per 15 mg Nov, 2 cc Start: 10-27-2016 Toradol per 15 mg Oct, 2 cc Start: 11-01-2014 Toradol per 15 mg Oct, 2 mL multivit-minerals/folic acid (ONE-A-DAY WOMEN VITACRAVES ORAL) (18 sources) multivit-mineral s/folic acid (ONE-A-DAY WOMEN VITACRAVES ORAL) Take by mouth. 0 Active Comment on above: Take by mouth. nitrofurantoin, macrocrystals 25 mg / nitrofurantoin, monohydrate 75 mg oral capsule (2 sources) Nitrofuran Antibacterial Star t: 06-08 End: 09-08 take 100 mg by mouth twice daily Nitrofurantoin Monohyd/M-Cryst Discontinued 100 MG PO Twice daily June 16, 2020 11:00pm September 23, 2020 8:17am omega-3 fatty acids 1,000 mg cap (18 sources) omega-3 fatty ac ids 1,000 mg cap Take by mouth q 24 HR. 0 Active Comment on above: Take by mouth q 24 H R. sennosides (SENOKOT ORAL) (18 sources) sennosides (SENO NANI ORAL) Take by mouth. 0 Active Comment on above: Take by mouth. solifenacin succinate 5 mg oral tablet (20 sources) Cholinergic Muscarinic Antagonist Star t: 06-08 take 1 tablet by mouth in the evening solifenacin (VESICARE) 5 mg tablet Take 15 mg by mouth as directed. TAKE 2 TABLETS BY MOUTH IN THE MORNING, AND 1 TABLET IN THE EVENING 0 06/25/2022 Active Start: 01-21-2022 take 1 tablet by walter twice daily Vesicare 5 mg Tab 5 mg = 1 tab(s), Oral, BID, # 60 tab(s), Refills(s) 5, Pharmacy: [id number], 187, cm, 12/30/21 9:14:00 EST, Height/Length Dosing, 110, kg, 12/30/21 9:14:00 EST, Weight Dosing Start Date: 01/21/22 Status: Ordered take 2 tablets by mo [facility] in the morning, then take 1 tablet by mouth twice daily in the evening Solifenacin Succinate 5 MG 2 tablets in the AM, 1 tablet in the PM Orally twice a day as directed Active take 1 tablet by walter every twenty-four hours VESIcare 5 MG 1 tablet Orally Once a day Active Comment on above: Take 15 mg by mouth as directed. TAKE 2 TABLETS BY MOUTH IN THE MORNING, AND 1 TABLET IN THE EVENING sulfamethoxazole 800 mg / trimethoprim 160 mg oral tablet (4 sources) Dihydrofolate Reductase Inhibitor Antibacterial, Sulfonamide Antimicrobial Start: 06-01-19 End: 06-18-19 take 1 tablet by mouth twice daily Sulfamethoxazole-Tr imethoprim (Sulfamethoprim Ds) 800-160 mg Tablet Discontinued 1 TAB PO Twice daily May 30, 2020 11:00pm June 17, 2020 7:08am Start: 03-21-2019 End: 08-24-2019 take 2 tablets by mouth twice daily Sulfamethoxazole-Trimethoprim Discontinu ed 2 TAB PO Twice daily March 21, 2019 12:00am August 24, 2019 5:19am viatmin b complex - vitamin C - ferrous fumarate - folic acid (NEPHRON FA) 66 mg iron- 1,000 mcg tab tablet (18 sources) Start: 11-16-2018 viatmin b comp michael - vitamin C - ferrous fumarate - folic acid (NEPHRON FA) 66 mg iron- 1,000 mcg tab tablet B Complex 100 sacod, Refill(s) 0 Start Date: 11/16/18 Status: Ordered 0 11/16/2018 Active Comment on above: B Complex 100 sacod, Refill(s) 0 Start Date: 11/16/18 Status: Ordered Vitamin D 1000 intl units Tab (6 sources) Start: 07-25-2020 take 1 tablet by mouth once daily Vitamin D 1000 intl units Tab 1,000 International_Unit = 1 tab(s), Oral, Daily, # 30 tab(s), Refills(s) 0 Start Date: 07/25/20 Status: Ordered Problems Active Problems Problem Classification Problem Date Documented Da te Episodic/Chronic Acquired foot deformities (20 sources) Left foot drop; Translations: [Foot drop, left foot] 08-29-2019 Episodic Acute myocardial infarction (20 sources) Acute non-ST segment elevation myocardial infarction; Translations: [Non-ST elevation (NSTEMI) myocardial infarction] 08-28-2019 Chronic Administrative/social admission (3 sources) Dietary counseling and surveillance; Translations: [Reduced mobility] Onset: 2 Resolved: 2 Episodic Anxiety disorders (20 sources) Mixed anxiety and depressive disorder; Translations: [Anxiety disorder] 09-04-2018 Chronic Bacterial infection; unspecified site (20 sources) Actinomycotic infection; Translations: [Actinomycosis, unspecified] 03-28-2019 Episodic Biliary tract disease (20 sources) Cholecystitis; Translations: [Cholecystitis, unspecified] Episodic Cardiac dysrhythmias (20 sources) Supraventricular tachycardia; Translations: [Supraventricular tachycardia] Onset: 2 Resolved: 2 Chronic Cardiac dysrhythmias (6 sources) Tachycardia 11-15-2018 Episodic Chronic ulcer of skin (20 sources) Pressure ulcer of unspecified site, unspecified stage; Translations: [Non-pressure chronic ulcer of other part of left foot with unspecified severity] 06-26-2020 Chronic Conditions associated with dizziness or vertigo (2 sources) Dizziness; Translations: [Dizziness and giddiness] 08-28-2019 Episodic Congestive heart failure; nonhypertensive (20 sources) Diastolic heart failure; Translations: [Unspecified diastolic (congestive) heart failure] 08-29-2019 Chronic Deficiency and other anemia (2 sources) Anemia; Translations: [Anemia, unspecified] 08-29-2019 Episodic Diabetes mellitus without complication (2 sources) Type 2 diabetes mellitus; Translations: [Type 2 diabetes mellitus without complications] 03-19-2020 Chronic Disorders of lipid metabolism (20 sources) Hypertriglyceridemia; Translations: [Hyperlipidemia] Onset: 7 Resolved: 2 08-05-2016 Chronic Diverticulosis and diverticulitis (8 sources) Diverticular disease; Translations: [Diverticulum of duodenum] Onset: 7 11-15-2018 Chronic Diverticulosis and diverticulitis (2 sources) Diverticulum of duodenum; Translations: [Duodenal diverticulum] Onset: 7 08-05-2016 E Codes: Fall (2 sources) Unspecified fall, subsequent encounter; Translations: [Unspecified fall, initial encounter] Episodic Esophageal disorders (20 sources) Gastroesophageal reflux disease without esophagitis; Translations: [Gastroesophageal reflux disease] Resolved: 8 10-25-2017 Chronic Esophageal disorders (4 sources) Esophageal mass; Translations: [Esophageal mass] 07-20-2016 Episodic Essential hypertension (2 sources) Hypertensive disorder; Translations: [Essential (primary) hypertension] 03-28-2019 Chronic Gastroduodenal ulcer (except hemorrhage) (20 sources) Gastric ulcer; Translations: [Gastric ulcer, unspecified as acute or chronic, without hemorrhage or perforation] Chronic Genitourinary congenital anomalies (20 sources) Cyst of kidney; Translations: [Congenital renal cyst, unspecified] Chronic Genitourinary symptoms and ill-defined conditions (20 sources) Urge incontinence; Translations: [Genuine stress incontinence] Onset: 2 Chronic Genitourinary symptoms and ill-defined conditions (20 sources) Microscopic hematuria; Translations: [Other microscopic hematuria] Onset: 2 Episodic Headache; including migraine (20 sources) Headache; Translations: [Headache] Episodic Immunizations and screening for infectious disease (2 sources) Infectious disease carrier; Translations: [Carrier or suspected carrier of Methicillin resistant Staphylococcus aureus] 03-28-2019 Episodic Malaise and fatigue (2 sources) Decline in functional status; Translations: [Other malaise] 03-29-2019 Episodic Mood disorders (20 sources) Depressive disorder; Translations: [Major depressive disorder, single episode, unspecified] 11-15-2018 Chronic Mood disorders (20 sources) Mood swings; Translations: [Emotional lability] Episodic Neoplasms of unspecified nature or uncertain behavior (1 source) Neoplasm of bladder; Translations: [Neoplasm of unspecified behavior of bladder] 04-20-2023 Episodic Nutritional deficiencies (20 sources) Vitamin D deficiency; Translations: [Vitamin D deficiency, unspecified] Onset: 2 Resolved: 2 Chronic Other aftercare (2 sources) Long-term current use of anticoagulant; Translations: [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 (current) use of anticoagulants] Onset: 2 Episodic Other connective tissue disease (1 source) History of cervical spine fusion; Translations: [Arthrodesis status] Episodic Other connective tissue disease (2 sources) Muscle weakness of upper limb; Translations: [Other symptoms and signs involving the musculoskeletal system] Episodic Other connective tissue disease (9 sources) Pain in left foot; Translations: [Pain in left foot] Episodic Other connective tissue disease (2 sources) Pain in left foot Episodic Other diseases of bladder and urethra (8 sources) Detrusor and sphincter dyssynergia; Translations: [Muscular disorders of urethra] 04-12-2019 Chronic Other diseases of bladder and urethra (10 sources) Mass of urinary bladder; Translations: [Other specified disorders of bladder] 04-12-2019 Chronic Other diseases of bladder and urethra (20 sources) Neurogenic bladder; Translations: [Neuromuscular dysfunction of bladder, unspecified] 04-12-2019 Chronic Other diseases of bladder and urethra (4 sources) Neuromuscular dysfunction of bladder, unspecified; Translations: [Neuromuscular dysfunction of bladder, unspecified] Onset: 3 Chronic Other diseases of bladder and urethra (1 source) Other specified disorders of bladder; Translations: [Bladder mass] Onset: 4 Chronic Other diseases of kidney and ureters (9 sources) Hydronephrosis; Translations: [Other hydronephrosis] 04-12-2019 Episodic Other diseases of kidney and ureters (1 source) Bilateral hydronephrosis ; Translations: [Unspecified hydronephrosis] 04-19-2023 Episodic Other diseases of kidney and ureters (2 sources) Unspecified hydronephrosis; Translations: [Bilateral hydronephrosis] Onset: 4 Episodic Other diseases of kidney and ureters (1 source) Other hydronephrosis; Translations: [Other hydronephrosis] Onset: 4 Episodic Other diseases of veins and lymphatics (10 sources) Lymphedema; Translations: [Lymphedema, not elsewhere classified] Onset: 7 08-05-2016 Chronic Other diseases of veins and lymphatics (20 sources) Disorder of vein; Translations: [Venous insufficiency (chronic) (peripheral)] Episodic Other ear and sense organ disorders (10 sources) Bilateral tinnitus; Translations: [Tinnitus, bilateral] Episodic Other gastrointestinal disorders (20 sources) Constipation; Translations: [Constipation, unspecified] Episodic Other gastrointestinal disorders (20 sources) History of bariatric surgical procedure; Translations: [Bariatric surgery status] Episodic Other gastrointestinal disorders (5 sources) Bariatric surgery status; Translations: [Bariatric surgery status] Onset: 2 Resolved: 2 Episodic Other gastrointestinal disorders (2 sources) History of bypass of stomach; Translations: [Bariatric surgery status] 04-17-2020 Episodic Other hematologic conditions (1 source) High troponin I level; Translations: [Other specified abnormalities of plasma proteins] 08-28-2019 Episodic Other hematologic conditions (1 source) Raised cardiac enzyme or marker; Translations: [Other specified abnormalities of plasma proteins] 08-28-2019 Episodic Other liver diseases (4 sources) Steatosis of liver; Translations: [Fatty (change of) liver, not elsewhere classified] 06-28-2017 Chronic Other nervous system disorders (11 sources) Cervical myelopathy; Translations: [Disease of spinal cord, unspecified] Chronic Other nervous system disorders (1 source) Disease of spinal cord, unspecified; Translations: [Disease of spinal cord, unspecified] Onset: 3 Chronic Other nervous system disorders (20 sources) Paresthesia; Translations: [Paresthesia of skin] Episodic Other non-traumatic joint disorders (20 sources) Arthralgia of the pelvic region and thigh; Translations: [Pain in left hip] Episodic Other nutritional; endocrine; and metabolic disorders (4 sources) Body mass index 30+ - obesity; Translations: [Obesity, unspecified] Onset: 9 09-04-2018 Chronic Other nutritional; endocrine; and metabolic disorders (20 sources) Morbid obesity; Translations: [Morbid (severe) obesity due to excess calories] Onset: 7 Resolved: 9 03-08-2018 Chronic Other nutritional; endocrine; and metabolic disorders (2 sources) Obesity; Translations: [Obesity, unspecified] 03-19-2020 Chronic Other nutritional; endocrine; and metabolic disorders (19 sources) Body mass index 40+ - severely obese; Translations: [Body mass index (BMI) 45.0-49.9, adult] Onset: 7 Resolved: 9 03-08-2018 Chronic Other nutritional; endocrine; and metabolic disorders (1 source) Body mass index (BMI) 45.0-49.9, adult Chronic Other nutritional; endocrine; and metabolic disorders (1 source) Morbid (severe) obesity due to excess calories Chronic Other nutritional; endocrine; and metabolic disorders (4 sources) Obesity caused by energy imbalance; Translations: [Morbid (severe) obesity due to excess calories] Onset: 4 04-19-2023 Chronic Other screening for suspected conditions (not mental disorders or infectious disease) (4 sources) Imaging result abnormal; Translations: [Abnormal findings on diagnostic imaging of other specified body structures] Onset: 4 03-24-2023 Chronic Other screening for suspected conditions (not mental disorders or infectious disease) (20 sources) Culture positive for methicillin resistant Staphylococcus aureus; Translations: [Mammography abnormal] Onset: 0 03-13-2019 Episodic Comment on above: MRSA urine 03/07/2019 MRSA urine 03/07/2019 Other skin disorders (20 sources) Epidermoid cyst of skin; Translations: [Sebaceous cyst] Episodic Paralysis (4 sources) Paraplegia, unspecified; Translations: [PARAPLEGIA UNSPECIFIED] Onset: 3 Chronic Jessie-; endo-; and myocarditis; cardiomyopathy (except that caused by tuberculosis or sexually transmitted disease) (4 sources) Pericardial effusion; Translations: [Pericardial effusion] 09-04-2018 Episodic Pulmonary heart disease (20 sources) Pulmonary embolism; Translations: [H/O: pulmonary embolus] Onset: 9 Resolved: 2 09-05-2018 Episodic Residual codes; unclassified (4 sources) Obstructive sleep apnea syndrome; Translations: [Obstructive sleep apnea (adult) (pediatric)] Onset: 7 09-04-2018 Chronic Residual codes; unclassified (6 sources) Sleep apnea 11-15-2018 Chronic Residual codes; unclassified (20 sources) Obstructive sleep apnea of adult; Translations: [Obstructive sleep apnea (adult) (pediatric)] Chronic Residual codes; unclassified (20 sources) Edema; Translations: [Edema, unspecified] Episodic Residual codes; unclassified (20 sources) History of excision of intestinal structure; Translations: [Acquired absence of other specified parts of digestive tract] Episodic Residual codes; unclassified (2 sources) Postoperative state; Translations: [Other specified postprocedural states] 08-28-2019 Episodic Residual codes; unclassified (10 sources) Postprocedural state finding; Translations: [Other specified postprocedural states] Episodic Residual codes; unclassified (1 source) Asymptomatic menopausal state Episodic Spondylosis; intervertebral disc disorders; other back problems (2 sources) Degeneration of lumbar intervertebral disc; Translations: [Other intervertebral disc degeneration, lumbar region] Chronic Thyroid disorders (20 sources) Thyroid nodule; Translations: [Nontoxic single thyroid nodule] Chronic Unclassified (1 source) History of cervical spine fusion; Translations: [S/P cervical spinal fusion] Unclassified (6 sources) Drug therapy finding 03-01-2019 Unclassified (4 sources) Asymptomatic microscopic hematuria 07-21-2021 Urinary tract infections (20 sources) Urinary tract infectious disease; Translations: [Urinary tract infection, site not specified] Onset: 2 Episodic Past or Other Problems Problem Classification Problem Date Documented Da te Episodic/Chronic Diabetes mellitus without complication (20 sources) Hyperglycemia, unspecified; Translations: [Hyperglycemia] Onset: 10-10-2021 Resolved: 10-10-2021 Episodic Other connective tissue disease (3 sources) Neuralgia and neuritis, unspecified Onset: 02-24-2021 Resolved: 10-24-2021 Episodic Other connective tissue disease (3 sources) Arthrodesis status; Translations: [S/P cervical spinal fusion] Onset: 06-29-2022 Episodic Other connective tissue disease (5 sources) Other symptoms and signs involving the musculoskeletal system; Translations: [Other musculoskeletal symptoms referable to limbs] Onset: 06-29-2022 Episodic Other gastrointestinal disorders (2 sources) History of sleeve gastrectomy; Translations: [Bariatric surgery status] Onset: 06-21-2017 06-23-2017 Episodic Other nervous system disorders (4 sources) Numbness of foot ; Translations: [Anesthesia of skin] Onset: 08-05-2016 08-05-2016 Episodic Residual codes; unclassified (4 sources) History of surgical procedure on cervical spine; Translations: [Other specified postprocedural states] Onset: 08-30-2018 09-04-2018 Episodic Residual codes; unclassified (2 sources) H/O: surgery; Translations: [Status post laparoscopic sleeve gastrectomy] Onset: 06-21-2017 06-23-2017 Episodic Spondylosis; intervertebral disc disorders; other back problems (20 sources) Lumbosacral radiculopathy; Translations: [Spinal stenosis in cervical region] Onset: 06-29-2022 06-23-2017 Episodic Results Test Name Value Interpretation Reference Range [facility] CARRIE FLETCHER ([id number]) 1970 F Date Time Provider Department 04/20/23 APURVA CAMPA During your visit today, we recorded the following information about you: Apurva Campa MD 04/20/2023 12:28 AM Signed Please schedule patient for local flexible cystoscopy at [facility] on Wednesday05-04-23 MD Angela Griffith Heather A 04/20/2023 4:07 PM Signed Left VM confirming date. 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 Discontinue saline lock post exam. If Pt. has a central line or IVAD, may access for administration according to line specific nursing protocol. Once exam is complete flush line and de-access according to line specific nursing protocol in the CT contrast administration guidelines link. - gabapentin (NEURONTIN) 600 mg tablet Take 600 mg by mouth daily at bedtime. - gabapentin (NEURONTIN) 300 mg capsule TAKE 1 CAPSULE BY MOUTH IN THE MORNING AND IN THE AFTERNOON - metoprolol tartrate, short acting, (LOPRESSOR) 25 mg tablet metoprolol tartrate 25 mg tablet TAKE 1/2 TABLET BY MOUTH TWICE DAILY - apixaban (ELIQUIS) 5 mg tab(s) Eliquis 5 mg tablet TAKE 1 TABLET BY MOUTH TWICE A DAY - solifenacin (VESICARE) 5 mg tablet Take 15 mg by mouth as directed. TAKE 2 TABLETS BY MOUTH IN THE MORNING, AND 1 TABLET IN THE EVENING - Docusate Sodium 250 mg capsule Stool Softener Active - cholecalciferol (VITAMIN D3) 5,000 unit tab Vitamin D3 1000 IU daily - omega-3 fatty acids 1,000 mg cap Take by mouth q 24 HR. - viatmin b complex - vitamin C - ferrous fumarate - folic acid (NEPHRON FA) 66 mg iron- 1,000 mcg tab tablet B Complex 100 sacod, Refill(s) 0 Start Date: 11/16/18 Status: Ordered - calcium carbonate (TUMS ULTRA) 400 mg (1,000 mg) chew Take 1,000 mg by mouth three times daily. - multivit-minerals/fol ic acid (ONE-A-DAY WOMEN VITACRAVES ORAL) Take by mouth. - sennosides (SENOKOT ORAL) Take by mouth. Problem List As Of Date 04/20/2023 Noted Resolved Mild protein-calorie malnutrition (HCC) [E44.1] 04/19/2023 Morbid (severe) obesity due to excess calories *04/19/2023 Encounter Status:Closed by MACY SIMON on 04/20/23 [facility] Bacteria Ur Culton 4 Bacteria identified Cx Nom (U) ORGANISM ID: 1 >=100,000 CFU/ml Mixed microbiota No further workup. Mixed microbiota can be due to???urine???contamin ation with skin bacteria at time of collection or presence of a long-term urinary catheter. If a new culture is needed, please consider re-education of the patient on proper midstream collection technique or straight catheterization for???urine???collect ion. [facility] Comment on above: Performed By: #### 6 30-4 ####[facility] LABCLIA [id number] [address] [place] 04-19-2023 CNOV Office Visit (UROLLN ) CARRIE FLETCHER ([id number]) 1970 F Date Time Provider Department 04/19/23 2:40 PM APURVA CAMPA During your visit today, we recorded the following information about you: Pulse Blood pressure Weight 80/minute 131/87 158.8 kg Apurva Campa MD 04/19/2023 2:43 PM Addendum UA/culture[facility]ology [facility] lab Schedule CTU Surgical schedulers will call for cystoscopy under local 05/04/23 office visit post op 05-12-23 in post op slot 9:20 AM Negrita Da Silva 04/19/2023 2:41 PM Signed Carrie Fletcher [id number] [facility] [id number] is a 52 year old female and is here today for hydronephrosis, bladder mass at the request of Janina Hadley [id number] [facility] [id number] My final recommendation will be communicated back to the requesting physician by way of shared medical record or letter. 52 year old female with degenerative disc disease, lumbar steosis, obesity, unsteady gait, on Eliquis here today for bladder mass and bilateral moderate-marked hydronephrosis. Renal US 04/15/23: Irregular echogenic material within the urinary bladder and probable wall thickening, suspicious for urothelial neoplasm. Urology consultation and potentially further assessment with cystoscopy is suggested. Bilateral moderate-marked hydronephrosis, right greater than left. Findings are likely secondary to distal ureteral obstruction in light of urinary bladder findings. If warranted, this can be further assessed with CT Urogram. Creatinine Date Value Ref Range Status 03/30/2023 1.01 (H) 0.58 - 0.96 mg/dL Final GFR 03/30/23: 67 HISTORY OF PRESENT ILLNESS: Location: bladder Severity Scale: see lab Duration: several months Associated signs and symptoms: none No past medical history on file. No past surgical history on file. No family history on file. Social History Tobacco Use Smoking status: Never Smokeless tobacco: Never Substance Use Topics Alcohol use: Never Drug use: Never MEDICATIONS: Current Outpatient Medications Medication Sig gabapentin (NEURONTIN) 600 mg tablet Take 600 mg by mouth daily at bedtime. gabapentin (NEURONTIN) 300 mg capsule TAKE 1 CAPSULE BY MOUTH IN THE MORNING AND IN THE AFTERNOON metoprolol tartrate, short acting, (LOPRESSOR) 25 mg tablet metoprolol tartrate 25 mg tablet TAKE 1/2 TABLET BY MOUTH TWICE DAILY apixaban (ELIQUIS) 5 mg tab(s) Eliquis 5 mg tablet TAKE 1 TABLET BY MOUTH TWICE A DAY solifenacin (VESICARE) 5 mg tablet Take 15 mg by mouth as directed. TAKE 2 TABLETS BY MOUTH IN THE MORNING, AND 1 TABLET IN THE EVENING Docusate Sodium 250 mg capsule Stool Softener Active cholecalciferol (VITAMIN D3) 5,000 unit tab Vitamin D3 1000 IU daily omega-3 fatty acids 1,000 mg cap Take by mouth q 24 HR. viatmin b complex - vitamin C - ferrous fumarate - folic acid (NEPHRON FA) 66 mg iron- 1,000 mcg tab tablet B Complex 100 sacod, Refill(s) 0 Start Date: 11/16/18 Status: Ordered calcium carbonate (TUMS ULTRA) 400 mg (1,000 mg) chew Take 1,000 mg by mouth three times daily. multivit-minerals/fol ic acid (ONE-A-DAY WOMEN VITACRAVES ORAL) Take by mouth. sennosides (SENOKOT ORAL) Take by mouth. No current facility-administered medications for this visit. ALLERGY: ALLERGIES Allergen Reactions Amoxicillin-Pot Cla* Diarrhea Oxycodone Unknown Adhesive Tape-Silic* Rash REVIEW OF SYSTEMS GENERAL: No fever, no fatigue and no weight loss. HEAD AND NECK: No headache, no blurred vision and no hearing loss. CARDIOVASCULAR: No chest pain, no palpitations and no leg edema. RESPIRATORY: No cough, wheezing and no shortness of breath. : As indicated in HPI. GI: No epigastric discomfort, no blood in stool and no changes in bowel habits. MUSCLOSKELETAL: No neck pain, no back anin and no joint pain. SKIN: No varicose veins, no rash and no abnormal itching. NEUROLOGICAL: No numbness, no seizures and no tremor. BLOOD: No ekimosis, no hematomas or no bleeding from the gums. PHYSICAL EXAM: GENERAL: Alert, oriented and in no distress. ABDOMEN: Soft, non tender with no masses or organomegaly. No CVA tenderness. HERNIA: Negative EXTREMITIES: No leg edema, No joint swelling GENITALIA: Deferred IMPRESSION: (Diagnostic Possibilities): Irregular echogenic material within the urinary bladder and probable wall thickening, suspicious for urothelial neoplasm. Bilateral moderate-marked hydronephrosis, right greater than left. Paralysis s/p gastric bypass surgery 2018 Able to walk with a walker after neck surgery 2019 On Eliquis PLAN: (Management Options): UA/culture[facility]ology [facility] lab CTU, GFR 03/31/23: 67 Cystoscopy under local in the operating room 05/04/23. Medical Decision Making: Data: Unique test (more content not included)... [facility] CYTOLOGY NON-GYNon CASE REPORT [facility] Comment on above: Order Comment: Speci men Type: FLUID SPECIMENOrdering Facility: [facility] Address: [address] [place] [address] Result Comment: [facility] Cytology Report Case: [id number] Authorizing Provider: Apurva Campa MD Collected: 04/19/2023 02:58 PM Ordering Location: Urology Received: 04/19/2023 03:19 PM Pathologist: Ruy Díaz MD Specimen: URINE VOIDED Performed By: #### C YTONON ####[facility] LABCLIA [id number] [place] [address] [place] CLINICAL HISTORY bladder mass, hydronephrosis [facility] Comment on above: Order Comment: Speci men Type: FLUID SPECIMENOrdering Facility: [facility] Address: [address] [place] [address] Performed By: #### C YTONON ####[facility] LABCLIA [id number] [place] [address] [place] FINAL DIAGNOSIS Normal [facility] Comment on above: Order Comment: Speci men Type: FLUID SPECIMENOrdering Facility: [facility] Address: [address] [place] [address] Result Comment: A - URINE VOIDED Negative for high-grade urothelial carcinoma. Acute inflammation Performed By: #### C YTONON ####[facility] LABCLIA [id number] [place] [address] [place] FINAL PERFORMING LAB Normal [facility] Comment on above: Order Comment: Speci men Type: FLUID SPECIMENOrdering Facility: [facility] Address: [address] [place] [address] Result Comment: Tech nical component, surveillance dual rate officer screening performed at [facility], [address] [place] [address] CLIA# [id number] Diagnostic interpretation performed at [facility], [address] [place] [address] CLIA# [id number] Assistant Portfolio Manager: Sha Boswell M.D. Performed By: #### C YTONON ####[facility] LABCLIA [id number] [place] [address] [place] GROSS DESCRIPTION A. URINE VOIDED Normal [facility] Comment on above: Order Comment: Speci men Type: FLUID SPECIMENOrdering Facility: [facility] Address: [address] [place] [address] Result Comment: 10 c c cloudy light yellow fluid . ThinPrep prepared. Performed By: #### C YTONON ####[facility] LABCLIA [id number] [place] [address] [place] URINALYSIS, REFLEX MICROSCOP ICon 04-19-2023 BACTERIA UL >9821 High Negative [facility] Comment on above: Order Comment: Speci men Type: URINE SPECIMENOrdering Facility: [facility] Address: [address] [place] [address] Performed By: #### L [id number] ####[facility] LABCLIA [id number] [place] [address] [place] Bilirubin Ql (U) Negative Normal Negative [facility] Comment on above: Order Comment: Speci men Type: URINE SPECIMENOrdering Facility: [facility] Address: [address] [place] [address] Performed By: #### L [id number] ####[facility] LABCLIA [id number] [place] [address] [place] Clarity (Unsp spec) Turbid Abnormal Clear [facility] Comment on above: Order Comment: Speci men Type: URINE SPECIMENOrdering Facility: [facility] Address: [address] [place] [address] Performed By: #### L [id number] ####[facility] LABCLIA [id number] [place] [address] [place] Color (U) Yellow Normal Yellow [facility] Comment on above: Order Comment: Speci men Type: URINE SPECIMENOrdering Facility: [facility] Address: [address] [place] [address] Performed By: #### L [id number] ####[facility] LABCLIA [id number] [place] [address] [place] Epithelial cells LM.HPF (Urine sed) [#/Area] Moderate Normal [facility] Comment on above: Order Comment: Speci men Type: URINE SPECIMENOrdering Facility: [facility] Address: [address] [place] [address] Performed By: #### L [id number] ####[facility] LABCLIA [id number] [place] [address] [place] Glucose Test strip (U) [Mass/Vol] Negative Normal Negative [facility] Comment on above: Order Comment: Speci men Type: URINE SPECIMENOrdering Facility: [facility] Address: [address] [place] [address] Performed By: #### L [id number] ####[facility] LABCLIA [id number] [place] [address] [place] Hemoglobin Ql (U) 2+ Abnormal Negative [facility] Comment on above: Order Comment: Speci men Type: URINE SPECIMENOrdering Facility: [facility] Address: [address] [place] [address] Performed By: #### L [id number] ####[facility] LABCLIA [id number] [place] [address] [place] Hyaline casts (Urine sed) [#/Area] /[LPF] Abnormal 0 /LPF [facility] Comment on above: Order Comment: Speci men Type: URINE SPECIMENOrdering Facility: [facility] Address: [address] [place] [address] Performed By: #### L [id number] ####[facility] LABCLIA [id number] [place] [address] [place] Ketones Ql (U) Negative Normal Negative [facility] Comment on above: Order Comment: Speci men Type: URINE SPECIMENOrdering Facility: [facility] Address: [address] [place] [address] Performed By: #### L [id number] ####[facility] LABCLIA [id number] [place] [address] [place] Leukocyte esterase Test strip Ql (U) 3+ Abnormal Negative [facility] Comment on above: Order Comment: Speci men Type: URINE SPECIMENOrdering Facility: [facility] Address: [address] [place] [address] Performed By: #### L [id number] ####[facility] LABCLIA [id number] [place] [address] [place] Nitrite Ql (U) Positive Abnormal Negative [facility] Comment on above: Order Comment: Speci men Type: URINE SPECIMENOrdering Facility: [facility] Address: [address] [place] [address] Performed By: #### L [id number] ####[facility] LABCLIA [id number] [place] [address] [place] pH (U) 7.0 [pH] Normal <8.5 [facility] Comment on above: Order Comment: Speci men Type: URINE SPECIMENOrdering Facility: [facility] Address: [address] [place] [address] Performed By: #### L [id number] ####[facility] LABIA [id number] [place] [address] [place] Protein (U) [Mass/Vol] 2+ Abnormal Negative Cl [facility] Comment on above: Order Comment: Speci men Type: URINE SPECIMENOrdering Facility: [facility] Address: [address] [place] [address] Performed By: #### L [id number] ####[facility] [id number] [place] [address] [place] RBC LM.HPF (Urine sed) [#/Area] 0-2 /HPF Normal 0-2 /HPF [facility] Comment on above: Order Comment: Speci men Type: URINE SPECIMENOrdering Facility: [facility] Address: [address] [place] [address] Performed By: #### L [id number] ####[facility] [id number] [place] [address] [place] Specific gravity (U) [Rel density] 1.013 Normal 1.005-1.030 [facility] Comment on above: Order Comment: Speci men Type: URINE SPECIMENOrdering Facility: [facility] Address: [address] [place] [address] Performed By: #### L [id number] ####[facility] LABIA [id number] [place] [address] [place] Urobilinogen Ql (U) 0.2 EU/dL Normal 0.2-1.0 EU/dL [facility] Comment on above: Order Comment: Speci men Type: URINE SPECIMENOrdering Facility: [facility] Address: [address] [place] [address] Performed By: #### L [id number] ####[facility] LABCLIA [id number] [place] [address] [place] WBC LM.HPF (Urine sed) [#/Area] /[HPF] Abnormal 0-5 /HPF [facility] Comment on above: Order Comment: Speci men Type: URINE SPECIMENOrdering Facility: [facility] Address: [address] [place] [address] Performed By: #### L [id number] ####[facility] LABCLIA [id number] [place] [address] [place] US KIDNEY/BLADDERon 04-15-19 US KIDNEY/BLADDER * * *Final Report* * * DATE OF EXAM: Apr 15 2023 1:52PM [id number] - US KIDNEY/BLADDER / PROCEDURE REASON: multiple diagnoses * * * * Physician Interpretation * * * * EXAMINATION: RENAL ULTRASOUND CLINICAL HISTORY: Hydronephrosis identified on lumbar spine MRI TECHNIQUE: Sonography of the kidneys and urinary bladder was performed. Images were obtained and stored in a permanent archive. MQ: UR_1 COMPARISON: MRI lumbar spine 11/16/2022 RESULT: Right Kidney: -Renal length: 13.7 cm -Parenchyma: Normal parenchymal echogenicity. Normal parenchymal thickness. -Collecting system: Severe hydronephrosis -Calculus: No echogenic, shadowing calculus. -Lesion: Suspected cyst arising from the upper pole measuring 5.3 cm. Left Kidney: -Renal length: 13.3 cm -Parenchyma: Normal parenchymal echogenicity. Normal parenchymal thickness. -Collecting system: Moderate hydronephrosis -Calculus: No echogenic, shadowing calculus. -Lesion: None. Bladder: Incompletely distended. Irregular hypoechoic material within the dependent bladder lumen and probable bladder wall thickening. IMPRESSION: 1. Irregular echogenic material within the urinary bladder and probable wall thickening, suspicious for urothelial neoplasm. Urology consultation and potentially further assessment with cystoscopy is suggested. 2. Bilateral moderate-marked hydronephrosis, right greater than left. Findings are likely secondary to distal ureteral obstruction in light of urinary bladder findings. If warranted, this can be further assessed with CT urogram. COMMUNICATION: Communicated with Janina Hadley NP on 04/15/2023 4:27 PM via verbal communication. ACTIONABLE RESULT: FOLLOW-UP Acuity: Actionable Findings: Kidneys/Ureters/Bladd er Routing Code: GU_1 Recommendation: Unlisted Recommendation (see report) Time Frame: At the discretion of the clinical team. COMMUNICATION: Results will be communicated with the ordering provider via Tarisa staff message or phone message by [employer] within 2 business days of report finalization. --END OF FINDING-- Acuity: Actionable Findings: Kidneys/Ureters/Bladd er Routing Code: GU_1 Recommendation: CT UROGRAM WO/W IVCON TimeFrame: at the discretion of the clinical team. --END OF FINDING-- Orthopedic Nurse: PSCB Transcribe Date/Time: Apr 15 2023 4:17P Dictated by : LUIS DANIEL SANZ MD This examination was interpreted and the report reviewed and electronically signed by: LUIS DANIEL SANZ MD on Apr 15 2023 4:28PM EST [id number] N ACTIONABLE Invalid Interpretation Code [facility] US Kidney - bilateral and Ur inary bladderon 04-15-2023 Radiology Result ACTIONABLE Abnormal [facility] Comprehensive metabolic 2000 panelon 03-30-2023 Albumin [Mass/Vol] 3.6 g/dL Low 3.9-4.9 [facility] Comment on above: Order Comment: Speci men Type: BLOOD SPECIMENOrdering Facility: [facility] Address: [address] [place] [address] Performed By: #### 2 4323-8 ####[facility] LABCLIA [id number] [place] [address] [place] ALP [Catalytic activity/Vol] 53 U/L Normal 34-123 [facility] Comment on above: Order Comment: Speci men Type: BLOOD SPECIMENOrdering Facility: [facility] Address: [address] [place] [address] Performed By: #### 2 4323-8 ####[facility] LABCLIA [id number] [place] [address] [place] ALT [Catalytic activity/Vol] 11 U/L Normal 7-38 [facility] Comment on above: Order Comment: Speci men Type: BLOOD SPECIMENOrdering Facility: [facility] Address: [address] [place] [address] Performed By: #### 2 4323-8 ####[facility] LABCLIA [id number] [address] [address] [place] Anion gap [Moles/Vol] 12 mmol/L Normal 9-18 [facility] Comment on above: Order Comment: Speci men Type: BLOOD SPECIMENOrdering Facility: [facility] Address: [address] [place] [address] Performed By: #### 2 4323-8 ####[facility] LABCLIA [id number] [place] [address] [place] AST [Catalytic activity/Vol] 9 U/L Low 13-35 [facility] Comment on above: Order Comment: Speci men Type: BLOOD SPECIMENOrdering Facility: [facility] Address: [address] [place] [address] Performed By: #### 2 4323-8 ####[facility] LABCLIA [id number] [place] [address] [place] Bilirubin [Mass/Vol] 0.2 mg/dL Normal 0.2-1.3 [facility] Comment on above: Order Comment: Speci men Type: BLOOD SPECIMENOrdering Facility: [facility] Address: [address] [place] [address] Performed By: #### 2 4323-8 ####[facility] LABCLIA [id number] [place] [address] [place] Calcium [Mass/Vol] 10.0 mg/dL Normal 8.5-10.2 [facility] Comment on above: Order Comment: Speci men Type: BLOOD SPECIMENOrdering Facility: [facility] Address: [address] [place] [address] Performed By: #### 2 4323-8 ####[facility] LABCLIA [id number] [place] [address] [place] Chloride [Moles/Vol] 106 mmol/L High 97-105 [facility] Comment on above: Order Comment: Speci men Type: BLOOD SPECIMENOrdering Facility: [facility] Address: [address] [place] [address] Performed By: #### 2 4323-8 ####[facility] LABCLIA [id number] [place] [address] [place] CO2 [Moles/Vol] 26 mmol/L Normal 22-30 [facility] Comment on above: Order Comment: Speci men Type: BLOOD SPECIMENOrdering Facility: [facility] Address: [address] [place] [address] Performed By: #### 2 4323-8 ####[facility] LABCLIA [id number] [place] [address] [place] Creatinine [Mass/Vol] 1.01 mg/dL High 0.58-0.96 [facility] Comment on above: Order Comment: Speci men Type: BLOOD SPECIMENOrdering Facility: [facility] Address: [address] [place] [address] Performed By: #### 2 4323-8 ####[facility] LABIA [id number] [address] [facility] Creatinine and Glomerular filtration rate.predicted panel (S/P/Bld) 67 mL/min/1.73m??? Normal >=60 [facility] Comment on above: Order Comment: Speci men Type: BLOOD SPECIMENOrdering Facility: [facility] Address: [address] [place] [address] Result Comment: Radha mated Glomerular Filtration Rate (eGFR) is calculated using the 2020 CKD-EPI creatinine equation. This equation utilizes serum creatinine, sex, and age as parameters. The creatinine assay has traceable calibration to isotope dilution-mass spectrometry. Refer to KDIGO guidelines for clinical interpretation. In patients with unstable renal function, e.g. those with acute kidney injury, the eGFR may not accurately reflect actual GFR. Performed By: #### 2 4323-8 ####[facility] LABIA [id number] [place] [address] [place] Glucose [Mass/Vol] 84 mg/dL Normal 74-99 [facility] Comment on above: Order Comment: Enrique men Type: BLOOD SPECIMENOrdering Facility: [facility] Address: [address] [place] [address] Result Comment: The [place] [employer] (ADA) provides guidance for cutoff values for fasting glucose and random glucose. The ADA defines fasting as no caloric intake for at least 8 hours. Fasting plasma glucose results between 100 to 125 mg/dL indicate increased risk for diabetes (prediabetes). Fasting plasma glucose results greater than or equal to 126 mg/dL meet the criteria for diagnosis of diabetes. In the absence of unequivocal hyperglycemia, results should be confirmed by repeat testing. In a patient with classic symptoms of hyperglycemia or hyperglycemic crisis, random plasma glucose results greater than or equal to 200 mg/dL meet the criteria for diagnosis of diabetes. Reference: Standards of Medical Care in Diabetes 2016, [place] [employer] Association. Diabetes Care. 2016.39(Suppl 1). Performed By: #### 2 4323-8 ####[facility] LABIA [id number] [place] [address] [place] Potassium [Moles/Vol] 4.7 mmol/L Normal 3.7-5.1 [facility] Comment on above: Order Comment: Enrique men Type: BLOOD SPECIMENOrdering Facility: [facility] Address: [address] [place] [address] Performed By: #### 2 4323-8 ####[facility] LABIA [id number] [place] [address] [place] Protein [Mass/Vol] 7.6 g/dL Normal 6.3-8.0 [facility] Comment on above: Order Comment: Enrique lam Type: BLOOD SPECIMENOrdering Facility: [facility] Address: [address] [place] [address] Performed By: #### 2 4323-8 ####[facility] LABIA [id number] [place] [id number] [place] Sodium [Moles/Vol] 144 mmol/L Normal 136-144 [facility] Comment on above: Order Comment: Speci men Type: BLOOD SPECIMENOrdering Facility: [facility] Address: [address] [place] [address] Performed By: #### 2 4323-8 ####[facility] LABIA [id number] [place] [address] [place] Urea nitrogen [Mass/Vol] 23 mg/dL High 7-21 [facility] Comment on above: Order Comment: Speci men Type: BLOOD SPECIMENOrdering Facility: [facility] Address: [address] [place] [address] Performed By: #### 2 4323-8 ####[facility] [id number] [address] OF [place] Rina 03-25-2023 NATALIA Telephone (EBONI) CARRIE FLETCHER ([id number]) 1970 F Date Time Provider Department 03/25/23 JANINA HADLEY During your visit today, we recorded the following information about you: Allergies As of Date: 03/25/2023 Noted Allergy Reaction AMOXICILLIN-POT CLAVULANATE 06/29/2022 6 - Diarrhea OXYCODONE 06/29/2022 16 - Unknown ADHESIVE TAPE-SILICONES 11/08/2018 2 - Rash Date Reviewed: 12/21/2022 Reviewed by: Shelley Cheatham MA - Fully Assessed Primary Visit Diagnosis:Abnormal finding of diagnostic imaging [R93.89] Prescriptions as of 04/01/2023 - gabapentin (NEURONTIN) 600 mg tablet Take 600 mg by mouth daily at bedtime. - gabapentin (NEURONTIN) 300 mg capsule TAKE 1 CAPSULE BY MOUTH IN THE MORNING AND IN THE AFTERNOON - metoprolol tartrate, short acting, (LOPRESSOR) 25 mg tablet metoprolol tartrate 25 mg tablet TAKE 1/2 TABLET BY MOUTH TWICE DAILY - apixaban (ELIQUIS) 5 mg tab(s) Eliquis 5 mg tablet TAKE 1 TABLET BY MOUTH TWICE A DAY - solifenacin (VESICARE) 5 mg tablet Take 15 mg by mouth as directed. TAKE 2 TABLETS BY MOUTH IN THE MORNING, AND 1 TABLET IN THE EVENING - Docusate Sodium 250 mg capsule Stool Softener Active - cholecalciferol (VITAMIN D3) 5,000 unit tab Vitamin D3 1000 IU daily - omega-3 fatty acids 1,000 mg cap Take by mouth q 24 HR. - viatmin b complex - vitamin C - ferrous fumarate - folic acid (NEPHRON FA) 66 mg iron- 1,000 mcg tab tablet B Complex 100 sacod, Refill(s) 0 Start Date: 11/16/18 Status: Ordered - calcium carbonate (TUMS ULTRA) 400 mg (1,000 mg) chew Take 1,000 mg by mouth three times daily. - multivit-minerals/fol ic acid (ONE-A-DAY WOMEN VITACRAVES ORAL) Take by mouth. - sennosides (SENOKOT ORAL) Take by mouth. Problem List As Of Date: 03/25/2023 (None) Encounter Status:Closed by TIFFANY GRUBER on 04/01/23 Normal [facility] A1C with Estimated Average G thereseshaehen 01-15-2023 Glucose [Mass/Vol] 105 mg/dL Normal [facility] Comment on above: Order Comment: Reaso n for Exam Neurogenic bladder;S/P bariatric surgery;History of pulmonar Result Comment: PERF ORMED BY: [address] [place] [address] PATHOLOGIST HEALTH PROFESSIONAL DINO ANDREWS M.D. Performed By: #### A 1C [facility] #### [address] [place] [address] [place] HbA1c (Bld) [Mass fraction] 5.3 % Normal 4.3-5.6 [facility] Comment on above: Order Comment: Reaso n for Exam Neurogenic bladder;S/P bariatric surgery;History of pulmonar Result Comment: Incr eased risk for diabetes: 5.7 - 6.4 diabetes: >6.4 glycemic control for adults with diabetes: <7.0 Performed By: #### A 1C [facility] #### [facility] [address] [id number] [facility] Alanine aminotransferase [En zymatic activity/volume] in Serum or PlasmaOrdered By: Lon Ibrahim on 01-15-2023 ALT [Catalytic activity/Vol] 12 U/L 7-52 [facility] Albumin [Mass/volume] in Ser um or Plasma by Bromocresol green (BCG) dye binding methoOrdered By: Lon Ibrahim on 01-15-2023 Albumin BCG dye [Mass/Vol] 3.7 g/dL 3.5-5.7 [facility] Alkaline phosphatase [Enzyma tic activity/volume] in Serum or PlasmaOrdered By: Lon Ibrahim on 01-15-2023 ALP [Catalytic activity/Vol] 44 U/L 34-104 [facility] Aspartate aminotransferase [ Enzymatic activity/volume] in Serum or PlasmaOrdered By: Lon Ibrahim on 01-15-2023 AST [Catalytic activity/Vol] 13 U/L 13-39 [facility] Basophils Auto (Bld) [#/Vol] Ordered By: Lon Ibrahim on 01-15-2023 Basophils (Bld) [#/Vol] 0.0 10*3/uL 0.0-0.2 [facility] Basophils/100 WBC Auto (Bld) Ordered By: Lon Ibrahim on 01-15-2023 Basophils/100 WBC (Bld) 0.3 % . F [facility] Bilirubin.total [Mass/volume ] in Serum or PlasmaOrdered By: Lon Ibrahim on 01-15-2023 Bilirubin [Mass/Vol] 0.3 mg/dL 0.3-1.0 [facility] Calcium [Mass/volume] in Ser um or PlasmaOrdered By: Lon Ibrahim on 01-15-2023 Calcium [Mass/Vol] 9.2 mg/dL 8.6-10.3 [facility] Carbon dioxide, total [Moles /volume] in Serum or PlasmaOrdered By: Lon Ibrahim on 01-15-2023 CO2 [Moles/Vol] 28.4 mmol/L 21.0-31.0 [facility] Chloride [Moles/volume] in S enedina or PlasmaOrdered By: Lon Ibrahim on 01-15-2023 Chloride [Moles/Vol] 107 mmol/L 98-107 [facility] Cholesterol [Mass/volume] in Serum or PlasmaOrdered By: Lon Ibrahim on 01-15-2023 Cholesterol [Mass/Vol] 193 mg/dL 140-200 [facility] Comment on above: Chol less than 200 m g/dl low riskChol 201-239 mg/dl borderline riskChol 240 mg/dl and greater high risk Cholesterol in LDL Calc [Mas s/Vol]Ordered By: Lon Ibrahim on 01-15-2023 Cholesterol in LDL [Mass/Vol] 104 mg/dL 0-100 [facility] Comment on above: LDL ATP III CLASSIFI CATIONLDL less than 100 mg/dL OptimalLDL 100-129 mg/dL Near or above optimalLDL 130-159 mg/dL Borderline highLDL 160-189 mg/dL HighLDL greater than 189 mg/dL Very high Cholesterol in VLDL Calc [Ma ss/Vol]Ordered By: Lon Ibrahim on 01-15-2023 Cholesterol in VLDL [Mass/Vol] 39 mg/dL [facility] Complete Blood Count Auto Di ffon 01-15-2023 Basophils (Bld) [#/Vol] 0.0 10*3/uL Normal 0.0-0.2 [facility] Comment on above: Order Comment: Reaso n for Exam Hyperlipidemia Reason for Exam S/P bariatric surgery Result Comment: PERF ORMED BY: [facility] [address] [place] [address] PATHOLOGIST HEALTH PROFESSIONAL DINO ANDREWS M.D. Performed By: #### B 12, BARIN, CBC, FOL, TSH3, CMP, LIPID, A1C WT eA #### [facility] [address] [place] [address] [place] Basophils/100 WBC (Bld) 0.3 % Normal . F [facility] Comment on above: Order Comment: Reaso n for Exam Hyperlipidemia Reason for Exam S/P bariatric surgery Performed By: #### B 12, BRAIN, CBC, FOL, TSH3, CMP, LIPID, A1C WTH eA #### [facility] [address] [place] [address] [place] Eosinophils (Bld) [#/Vol] 0.1 10*3/uL Normal 0.0-0.45 [facility] Comment on above: Order Comment: Reaso n for Exam Hyperlipidemia Reason for Exam S/P bariatric surgery Performed By: #### B 12, BRAIN, CBC, FOL, TSH3, CMP, LIPID, A1C WTH eA #### [facility] [address] [place] [address] [place] Eosinophils/100 WBC (Bld) 1.6 % Normal . [facility] Comment on above: Order Comment: Reaso n for Exam Hyperlipidemia Reason for Exam S/P bariatric surgery Performed By: #### B 12, BRAIN, CBC, FOL, TSH3, CMP, LIPID, A1C WTH eA #### [facility] [address] Erythrocyte distribution width (RBC) [Ratio] 14.1 % Normal 11.9-15.3 [facility] Comment on above: Order Comment: Reaso n for Exam Hyperlipidemia Reason for Exam S/P bariatric surgery Performed By: #### B 12, BRAIN, CBC, FOL, TSH3, CMP, LIPID, A1C WTH eA #### [facility] [address] [place] [address] [place] Hematocrit (Bld) [Volume fraction] 39.8 % Normal 34.0-46.4 [facility] Comment on above: Order Comment: Reaso n for Exam Hyperlipidemia Reason for Exam S/P bariatric surgery Performed By: #### B 12, BRIAN, CBC, FOL, TSH3, CMP, LIPID, A1C WTH eA #### [facility] [address] [place] [address] [place] Hemoglobin (Bld) [Mass/Vol] 13.0 g/dL Normal 11.8-15.4 [facility] Comment on above: Order Comment: Reaso n for Exam Hyperlipidemia Reason for Exam S/P bariatric surgery Performed By: #### B 12, BRAIN, CBC, FOL, TSH3, CMP, LIPID, A1C WTH eA #### [facility] [address] Lymphocytes (Bld) [#/Vol] 2.5 10*3/uL Normal 1.00-4.8 [facility] Comment on above: Order Comment: Reaso n for Exam Hyperlipidemia Reason for Exam S/P bariatric surgery Performed By: #### B 12, BRAIN, CBC, FOL, TSH3, CMP, LIPID, A1C WTH eA #### [facility] [address] Lymphocytes/100 WBC (Bld) 37.2 % Normal . [facility] Comment on above: Order Comment: Reaso n for Exam Hyperlipidemia Reason for Exam S/P bariatric surgery Performed By: #### B 12, BRAIN, CBC, FOL, TSH3, CMP, LIPID, A1C WTH eA #### [facility] [address] MCH (RBC) [Entitic mass] 30.3 pg Normal 24.7-34.3 [facility] Comment on above: Order Comment: Reaso n for Exam Hyperlipidemia Reason for Exam S/P bariatric surgery Performed By: #### B 12, BRAIN, CBC, FOL, TSH3, CMP, LIPID, A1C WTH eA #### [facility] [address] [place] [address] MCV (RBC) [Entitic vol] 93.2 fL Normal 80-100 F [facility] Comment on above: Order Comment: Reaso n for Exam Hyperlipidemia Reason for Exam S/P bariatric surgery Performed By: #### B 12, BRAIN, CBC, FOL, TSH3, CMP, LIPID, A1C WTH eA #### [facility] [address] Mean Corpuscular HGB Conc 32.5 g/dL Normal 32.0-35.0 [facility] Comment on above: Order Comment: Reaso n for Exam Hyperlipidemia Reason for Exam S/P bariatric surgery Performed By: #### B 12, BRAIN, CBC, FOL, TSH3, CMP, LIPID, A1C WTH eA #### [facility] [address] [place] [address] [place] Monocytes (Bld) [#/Vol] 0.4 10*3/uL Normal 0.0-0.8 [facility] Comment on above: Order Comment: Reaso n for Exam Hyperlipidemia Reason for Exam S/P bariatric surgery Performed By: #### B 12, BRAIN, CBC, FOL, TSH3, CMP, LIPID, A1C WTH eA #### [facility] [address] [place] [address] [place] Monocytes/100 WBC (Bld) 6.4 % Normal . [facility] Comment on above: Order Comment: Reaso n for Exam Hyperlipidemia Reason for Exam S/P bariatric surgery Performed By: #### B 12, BRAIN, CBC, FOL, TSH3, CMP, LIPID, A1C WTH eA #### [facility] [address] [place] [address] [place] Neutrophils (Bld) [#/Vol] 3.7 10*3/uL Normal 1.8-7.7 [facility] Comment on above: Order Comment: Reaso n for Exam Hyperlipidemia Reason for Exam S/P bariatric surgery Performed By: #### B 12, BRAIN, CBC, FOL, TSH3, CMP, LIPID, A1C WTH eA #### [facility] [address] [place] [id number] [place] Neutrophils/100 WBC (Bld) 54.5 % Normal . [facility] Comment on above: Order Comment: Reaso n for Exam Hyperlipidemia Reason for Exam S/P bariatric surgery Performed By: #### B 12, BRAIN, CBC, FOL, TSH3, CMP, LIPID, A1C WTH eA #### [facility] [address] [place] [address] [place] NRBC% 0.1 /100{WBC} Normal 0-0.5 [facility] Comment on above: Order Comment: Reaso n for Exam Hyperlipidemia Reason for Exam S/P bariatric surgery Performed By: #### B 12, BRAIN, CBC, FOL, TSH3, CMP, LIPID, A1C WTH eA #### [facility] [address] Platelet mean volume (Bld) [Entitic vol] 8.7 fL Normal 6.3-10.7 [facility] Comment on above: Order Comment: Reaso n for Exam Hyperlipidemia Reason for Exam S/P bariatric surgery Performed By: #### B 12, BRAIN, CBC, FOL, TSH3, CMP, LIPID, A1C WTH eA #### [facility] [address] [place] [id number] [facility] Platelets (Bld) [#/Vol] 234 10*3/uL Normal 150-450 [facility] Comment on above: Order Comment: Reaso n for Exam Hyperlipidemia Reason for Exam S/P bariatric surgery Performed By: #### B 12, BRAIN, CBC, FOL, TSH3, CMP, LIPID, A1C WTH eA #### [facility] [address] RBC (Bld) [#/Vol] 4.27 10*6/uL Normal 3.60-5.00 [facility] Comment on above: Order Comment: Reaso n for Exam Hyperlipidemia Reason for Exam S/P bariatric surgery Performed By: #### B 12, BRAIN, CBC, FOL, TSH3, CMP, LIPID, A1C WTH eA #### [facility] [address] WBC (Bld) [#/Vol] 6.8 10*3/uL Normal 3.8-11.6 [facility] Comment on above: Order Comment: Reaso n for Exam Hyperlipidemia Reason for Exam S/P bariatric surgery Performed By: #### B 12, BRAIN, CBC, FOL, TSH3, CMP, LIPID, A1C WTH eA #### [facility] [address] Comprehensive Metabolic Pane mal 01-15-2023 Albumin [Mass/Vol] 3.7 g/dL Normal 3.5-5.7 [facility] Comment on above: Order Comment: Reaso n for Exam Hyperlipidemia Reason for Exam S/P bariatric surgery Performed By: #### B 12, BRAIN, CBC, FOL, TSH3, CMP, LIPID, A1C WTH eA #### [facility] [address] [place] [id number] [place] Albumin/Globulin [Mass ratio] 1.1 {ratio} Normal [facility] Comment on above: Order Comment: Reaso n for Exam Hyperlipidemia Reason for Exam S/P bariatric surgery Performed By: #### B 12, BRAIN, CBC, FOL, TSH3, CMP, LIPID, A1C WTH eA #### [facility] [address] [place] [id number] [place] ALP [Catalytic activity/Vol] 44 U/L Normal 34-104 [facility] Comment on above: Order Comment: Reaso n for Exam Hyperlipidemia Reason for Exam S/P bariatric surgery Performed By: #### B 12, BRAIN, CBC, FOL, TSH3, CMP, LIPID, A1C WTH eA #### [facility] [address] [place] [id number] [facility] ALT [Catalytic activity/Vol] 12 U/L Normal 7-52 [facility] Comment on above: Order Comment: Reaso n for Exam Hyperlipidemia Reason for Exam S/P bariatric surgery Performed By: #### B 12, BRAIN, CBC, FOL, TSH3, CMP, LIPID, A1C WTH eA #### [facility] [address] [place] [address] [place] Anion gap [Moles/Vol] 9.7 mmol/L Normal 6.0-15.0 [facility] Comment on above: Order Comment: Reaso n for Exam Hyperlipidemia Reason for Exam S/P bariatric surgery Performed By: #### B 12, BRAIN, CBC, FOL, TSH3, CMP, LIPID, A1C WTH eA #### [facility] [address] [place] [id number] [place] AST [Catalytic activity/Vol] 13 U/L Normal 13-39 [facility] Comment on above: Order Comment: Reaso n for Exam Hyperlipidemia Reason for Exam S/P bariatric surgery Performed By: #### B 12, BRAIN, CBC, FOL, TSH3, CMP, LIPID, A1C WTH eA #### [facility] [address] [place] [id number] [place] Bilirubin [Mass/Vol] 0.3 mg/dL Normal 0.3-1.0 [facility] Comment on above: Order Comment: Reaso n for Exam Hyperlipidemia Reason for Exam S/P bariatric surgery Performed By: #### B 12, BRAIN, CBC, FOL, TSH3, CMP, LIPID, A1C WTH eA #### [facility] [address] Calcium [Mass/Vol] 9.2 mg/dL Normal 8.6-10.3 [facility] Comment on above: Order Comment: Reaso n for Exam Hyperlipidemia Reason for Exam S/P bariatric surgery Performed By: #### B 12, BRAIN, CBC, FOL, TSH3, CMP, LIPID, A1C WTH eA #### [facility] [address] Chloride [Moles/Vol] 107 mmol/L Normal 98-107 [facility] Comment on above: Order Comment: Reaso n for Exam Hyperlipidemia Reason for Exam S/P bariatric surgery Performed By: #### B 12, BRAIN, CBC, FOL, TSH3, CMP, LIPID, A1C WTH eA #### [facility] [address] CO2 [Moles/Vol] 28.4 mmol/L Normal 21.0-31.0 [facility] Comment on above: Order Comment: Reaso n for Exam Hyperlipidemia Reason for Exam S/P bariatric surgery Performed By: #### B 12, BRAIN, CBC, FOL, TSH3, CMP, LIPID, A1C WTH eA #### [facility] [address] Creatinine [Mass/Vol] 0.83 mg/dL Normal 0.60-1.20 [facility] Comment on above: Order Comment: Reaso n for Exam Hyperlipidemia Reason for Exam S/P bariatric surgery Performed By: #### B 12, BRAIN, CBC, FOL, TSH3, CMP, LIPID, A1C WTH eA #### [facility] [address] [place] [address] [place] GFR/1.73 sq M.predicted MDRD (S/P/Bld) [Vol rate/Area] mL/min/{1.73_m2} [facility] Comment on above: Order Comment: Reaso n for Exam Hyperlipidemia Reason for Exam S/P bariatric surgery Performed By: #### B 12, BRAIN, CBC, FOL, TSH3, CMP, LIPID, A1C WTH eA #### [facility] [address] [place] [id number] [facility] Globulin (S) [Mass/Vol] 3.3 g/dL Normal [facility] Comment on above: Order Comment: Reaso n for Exam Hyperlipidemia Reason for Exam S/P bariatric surgery Performed By: #### B 12, BRAIN, CBC, FOL, TSH3, CMP, LIPID, A1C WTH eA #### [facility] [address] Glucose [Mass/Vol] 84 mg/dL Normal 70-100 [facility] Comment on above: Order Comment: Reaso n for Exam Hyperlipidemia Reason for Exam S/P bariatric surgery Result Comment: [facility] Glucose Reference Range is dependent on time and content of last meal. Glucose of more than 200 mg/dL in a nonstressed, ambulatory subject supports the diagnosis of Diabetes Mellitus. ADA recommended reference range Performed By: #### B 12, BRAIN, CBC, FOL, TSH3, CMP, LIPID, A1C WTH eA #### [facility] [address] Potassium [Moles/Vol] 4.1 mmol/L Normal 3.5-5.1 [facility] Comment on above: Order Comment: Reaso n for Exam Hyperlipidemia Reason for Exam S/P bariatric surgery Performed By: #### B 12, BRAIN, CBC, FOL, TSH3, CMP, LIPID, A1C WTH eA #### [facility] [address] [place] [id number] [facility] Protein [Mass/Vol] 7.0 g/dL Normal 6.4-8.9 [facility] Comment on above: Order Comment: Reaso n for Exam Hyperlipidemia Reason for Exam S/P bariatric surgery Performed By: #### B 12, BRAIN, CBC, FOL, TSH3, CMP, LIPID, A1C WTH eA #### [facility] [address] [place] [id number] [facility] Sodium [Moles/Vol] 141 mmol/L Normal 136-145 [facility] Comment on above: Order Comment: Reaso n for Exam Hyperlipidemia Reason for Exam S/P bariatric surgery Performed By: #### B 12, BRAIN, CBC, FOL, TSH3, CMP, LIPID, A1C WT eA #### [facility] [address] Urea nitrogen [Mass/Vol] 22 mg/dL Normal 7-25 [facility] Comment on above: Order Comment: Reaso n for Exam Hyperlipidemia Reason for Exam S/P bariatric surgery Performed By: #### B 12, BRAIN, CBC, FOL, TSH3, CMP, LIPID, A1C WT eA #### [facility] [address] [place] [address] [place] Creatinine [Mass/volume] in Serum or PlasmaOrdered By: Lon Ibrahim on 01-15-2023 Creatinine [Mass/Vol] 0.83 mg/dL 0.60-1.20 [facility] Eosinophils Auto (Bld) [#/Vo l]Ordered By: Lon Ibrahim on 01-15-2023 Eosinophils (Bld) [#/Vol] 0.1 10*3/uL 0.0-0.45 [facility] Eosinophils/100 WBC Auto (Bl d)Ordered By: Lon Ibrahim on 01-15-2023 Eosinophils/100 WBC (Bld) 1.6 % . [facility] Erythrocyte distribution wid th Auto (RBC) [Ratio]Ordered By: Lon Ibrahim on 01-15-2023 Erythrocyte distribution width (RBC) [Ratio] 14.1 % 11.9-15.3 [facility] Globulin Calc (S) [Mass/Vol] Ordered By: Lon Ibrahim on 01-15-2023 Globulin (S) [Mass/Vol] 3.3 g/dL [facility] Glucose [Mass/volume] in Ser um or PlasmaOrdered By: Lon Ibrahim on 01-15-2023 Glucose [Mass/Vol] 84 mg/dL 70-100 [facility] Comment on above: ADA recommended refe rence rangeRandom Glucose Reference Range is dependent on time and content of last meal. Glucose of more than 200 mg/dL in a nonstressed, ambulatory subject supports the diagnosis of Diabetes Mellitus. Hematocrit Auto (Bld) [Volum e fraction]Ordered By: Lon Ibrahim on 01-15-2023 Hematocrit (Bld) [Volume fraction] 39.8 % 34.0-46.4 [facility] Hemoglobin [Mass/volume] in BloodOrdered By: Lon Ibrahim on 01-15-2023 Hemoglobin (Bld) [Mass/Vol] 13.0 g/dL 11.8-15.4 [facility] Leukocytes [#/volume] correc patricia for nucleated erythrocytes in Blood by Automated counOrdered By: Lon Ibrahim on 01-15-2023 WBC corrected for nucl RBC Auto (Bld) [#/Vol] 6.8 10*3/uL 3.8-11.6 [facility] Lipid Panelon 01-15-2023 Cholesterol [Mass/Vol] 193 mg/dL Normal 140-200 [facility] Comment on above: Order Comment: Reaso n for Exam Hyperlipidemia Reason for Exam S/P bariatric surgery Result Comment: Chol less than 200 mg/dl low risk Chol 201-239 mg/dl borderline risk Chol 240 mg/dl and greater high risk Performed By: #### B 12, BRAIN, CBC, FOL, TSH3, CMP, LIPID, A1C WT eA #### [facility] [address] Cholesterol in HDL [Mass/Vol] 50 mg/dL Normal 23-92 [facility] Comment on above: Order Comment: Reaso n for Exam Hyperlipidemia Reason for Exam S/P bariatric surgery Result Comment: HDL CHOL ATP-III CLASSIFICATION Cardiovascular Risk HDL > or equal to 60 mg/dL LOW HDL < 40 mg/dL HIGH Performed By: #### B 12, BRAIN, CBC, FOL, TSH3, CMP, LIPID, A1C WT eA #### [facility] [address] [place] [address] [place] Cholesterol.total/Roseanna sterol in HDL [Mass ratio] 3.9 {ratio} Normal <5.0 [facility] Comment on above: Order Comment: Reaso n for Exam Hyperlipidemia Reason for Exam S/P bariatric surgery Performed By: #### B 12, BRAIN, CBC, FOL, TSH3, CMP, LIPID, A1C WTH eA #### [facility] [address] LDL Cholesterol,Calculated 104 mg/dL High 0-100 [facility] Comment on above: Order Comment: Reaso n for Exam Hyperlipidemia Reason for Exam S/P bariatric surgery Result Comment: LDL ATP III CLASSIFICATION LDL less than 100 mg/dL Optimal LDL 100-129 mg/dL Near or above optimal LDL 130-159 mg/dL Borderline high LDL 160-189 mg/dL High LDL greater than 189 mg/dL Very high Performed By: #### B 12, BRAIN, CBC, FOL, TSH3, CMP, LIPID, A1C WTH eA #### [facility] [address] Triglyceride w/Reflex 196 mg/dL High 0-149 [facility] Comment on above: Order Comment: Reaso n for Exam Hyperlipidemia Reason for Exam S/P bariatric surgery Result Comment: TRIG ATP III CLASSIFICATION TRIG less than 150 mg/dL Normal TRIG 150-199 mg/dL Borderline high TRIG 200-500 mg/dL High TRIG greater than 500 mg/dL Very high Standard traceable to the Center for Disease Conrtrol and Prevention (CDC) test method. Performed By: #### B 12, BRAIN, CBC, FOL, TSH3, CMP, LIPID, A1C WTH eA #### [facility] [address] VLDL CHOLESTEROL 39 mg/dL Normal [facility] Comment on above: Order Comment: Reaso n for Exam Hyperlipidemia Reason for Exam S/P bariatric surgery Performed By: #### B 12, BRAIN, CBC, FOL, TSH3, CMP, LIPID, A1C WTH eA #### [facility] [address] Lymphocytes Auto (Bld) [#/Vo l]Ordered By: Lon Ibrahim on 01-15-2023 Lymphocytes (Bld) [#/Vol] 2.5 10*3/uL 1.00-4.8 [facility] Lymphocytes/100 WBC Auto (Bl d)Ordered By: Lon Ibrahim on 01-15-2023 Lymphocytes/100 WBC (Bld) 37.2 % . [facility] MCH Auto (RBC) [Entitic mass ]Ordered By: Lon Ibrahim on 01-15-2023 MCH (RBC) [Entitic mass] 30.3 pg 24.7-34.3 [facility] MCHC Auto (RBC) [Mass/Vol]Or dered By: Lon Ibrahim on 01-15-2023 MCHC (RBC) [Mass/Vol] 32.5 g/dL 32.0-35.0 [facility] MCV Auto (RBC) [Entitic vol] Ordered By: Lon Ibrahim on 01-15-2023 MCV (RBC) [Entitic vol] 93.2 fL 80-100 F [facility] Monocytes Auto (Bld) [#/Vol] Ordered By: Lon Ibrahim on 01-15-2023 Monocytes (Bld) [#/Vol] 0.4 10*3/uL 0.0-0.8 [facility] Monocytes/100 WBC Auto (Bld) Ordered By: Lon Ibrahim on 01-15-2023 Monocytes/100 WBC (Bld) 6.4 % . [facility] Neutrophils Auto (Bld) [#/Vo l]Ordered By: Lon Ibrahim on 01-15-2023 Neutrophils (Bld) [#/Vol] 3.7 10*3/uL 1.8-7.7 [facility] Neutrophils/100 WBC Auto (Bl d)Ordered By: Lon Ibrahim on 01-15-2023 Neutrophils/100 WBC (Bld) 54.5 % . [facility] No Panel InformationOrdered By: Lon Ibrahim on 01-15-2023 Estimated GFR (CKD-EPI) > 60.0 mL/Min [facility] Creatinine Clearance (Chem N/A [facility] Nucleated erythrocytes [Pres ence] in Blood by Automated countOrdered By: Lon Ibrahim on 01-15-2023 Nucleated RBC Auto Ql (Bld) 0.1 /100{WBC} 0-0.5 [facility] Platelet mean volume Auto (B ld) [Entitic vol]Ordered By: Lon Ibrahim on 01-15-2023 Platelet mean volume (Bld) [Entitic vol] 8.7 fL 6.3-10.7 [facility] Platelets Auto (Bld) [#/Vol] Ordered By: Lon Ibrahim on 01-15-2023 Platelets (Bld) [#/Vol] 234 10*3/uL 150-450 [facility] Potassium [Moles/volume] in Serum or PlasmaOrdered By: Lon Ibrahim on 01-15-2023 Potassium [Moles/Vol] 4.1 mmol/L 3.5-5.1 [facility] Protein [Mass/volume] in Ser um or PlasmaOrdered By: Lon Ibrahim on 01-15-2023 Protein [Mass/Vol] 7.0 g/dL 6.4-8.9 [facility] RBC Auto (Bld) [#/Vol]Ordere d By: Lon Ibrahim on 01-15-2023 RBC (Bld) [#/Vol] 4.27 10*6/uL 3.60-5.00 [facility] Serum or plasma albumin/glob ulin mass ratioOrdered By: Lon Ibrahim on 01-15-2023 Albumin/Globulin [Mass ratio] 1.1 {ratio} [facility] Serum or plasma anion gap de terminationOrdered By: Lon Ibrahim on 01-15-2023 Anion gap [Moles/Vol] 9.7 mmol/L 6.0-15.0 [facility] Serum or plasma high density lipoprotein (HDL) cholesterol measurementOrdered By: Lon Ibrahim on 01-15-2023 Cholesterol in HDL [Mass/Vol] 50 mg/dL 23-92 [facility] Comment on above: HDL CHOL ATP-III CLA SSIFICATION Cardiovascular RiskHDL > or equal to 60 mg/dL LOWHDL < 40 mg/dL HIGH Serum or plasma total choles terol/high density lipoprotein (HDL) cholesterol mass ratOrdered By: Lon Ibrahim on 01-15-2023 Cholesterol.total/Roseanna sterol in HDL [Mass ratio] 3.9 {ratio} <5.0 [facility] Sodium [Moles/volume] in Ser um or PlasmaOrdered By: Lon Ibrahim on 01-15-2023 Sodium [Moles/Vol] 141 mmol/L 136-145 [facility] Thyroid Stimulating Hormoneo n 01-15-2023 TSH Qn 1.78 m[IU]/L Normal 0.45-5.33 [facility] Comment on above: Order Comment: Reaso n for Exam Hyperlipidemia Reason for Exam S/P bariatric surgery Result Comment: PERF ORMED BY: [facility] [address] [place] [address] PATHOLOGIST HEALTH PROFESSIONAL DINO ANDREWS M.D. Performed By: #### B 12, BRAIN, CBC, FOL, TSH3, CMP, LIPID, A1C WTH eA #### [facility] [address] Thyrotropin [Units/volume] i n Serum or PlasmaOrdered By: Lon Ibrahim on 01-15-2023 TSH Qn 1.78 m[IU]/L 0.45-5.33 [facility] Triglyceride [Mass/volume] i n Serum or PlasmaOrdered By: Lon Ibrahim on 01-15-2023 Triglyceride [Mass/Vol] 196 mg/dL 0-149 [facility] Comment on above: TRIG ATP III CLASSIF ICATIONTRIG less than 150 mg/dL NormalTRIG 150-199 mg/dL Borderline highTRIG 200-500 mg/dL High TRIG greater than 500 mg/dL Very highStandard traceable to the Center for Disease Conrtrol and Prevention (CDC) test method. Urea nitrogen [Mass/volume] in Serum or PlasmaOrdered By: Lon Ibrahim on 01-15-2023 Urea nitrogen [Mass/Vol] 22 mg/dL 7-25 [facility] WBC Auto (Bld) [#/Vol]Ordere d By: Lon Ibrahim on 01-15-2023 WBC (Bld) [#/Vol] 6.8 10*3/uL 3.8-11.6 [facility] Urinalysis - AUTOMATEDon Appearance (U) cloudy [employer] Other Bilirubin Ql (U) Negative [employer] Other Color (U) brown [employer] Other Glucose Ql (U) Negative [employer] Other Hemoglobin Ql (U) Large [employer] Other Ketones Ql (U) Trace [employer] Other Leukocyte esterase Test strip Ql (U) Large [employer] Other Nitrite Ql (U) Positive [employer] Other pH (U) 6.0 [pH] [employer] Other Protein Ql (U) 30+ [employer] Other Specific gravity (U) [Rel density] 1.015 [employer] Other Urobilinogen (U) [Mass/Vol] 0.2 mg/dL [employer] Other Urinalysis - AUTOMATED No rt [employer] Other Urine Cultureon 01-12-2023 Bacteria identified Cx Nom (U) ORGANISM: Escherichia coli (MDRO) (O:ESCCOLMDRO) [place] Count >100,000 Aerobic JAVIER Charge (NMIC56) ---- SUSCEPTIBILITY --- ORGANISM: O:ESCCOLMDRO ANTIBIOTIC INTERPRETATION JAVIER Amikacin S <16 Amoxacillin/K Clavulanate I 1616/8 Ampicillin R >16 Ampicillin/Sulbactam R >16 Aztreonam S <4 Cefazolin R >16 Cefepime S <2 Ceftazidime S <1 Ceftazidime/Avibactam S <4 Ceftolozane/Tazobacta m S <2 Ceftriaxone S <1 Cefuroxime R >16 Ciprofloxacin R >2 Ertapenem S <0.5 Gentamicin R >8 Levofloxacin R >4 Meropenem S <1 Meropenem/Vaborbactam S <2 Nitrofurantoin I 64 Piperacillin/Tazobact am I 64 Tetracycline R >8 Tigecycline S <2 Tobramycin R >8 Trimethoprim/Sulfamet hoxazole R >2 S = SUSCEPTIBLE I = INTERMEDIATE R = RESISTANT BLANK = DATA NOT AVAILABLE, OR DRUG NOT ADVISABLE OR TESTED R* = RESISTANCE DUE TO EXTENDED SPECTRUM BETA-LACTAMASES ESBL = EXTENDED SPECTRUM BETA-LACTAMASE TFG = THYMIDINE-DEPENDENT STRAIN LUISA = BETA-LACTAMASE POSITIVE IB = INDUCIBLE BETA-LACTAMASE. APPEARS IN PLACE OF 'S' WITH SPECIES KNOWN TO POSSESS INDUCIBLE BETA-LACTAMASES. POTENTIALLY THEY MAY BECOME RESISTANT TO ALL B-LACTAM DRUGS. PERFORMED BY: [place] [address] PATHOLOGIST HEALTH PROFESSIONAL DINO ANDREWS M.D. Normal [facility] Comment on above: Performed By: #### C UU #### [address] CNOVon 12-21-2022 CNOV Office Visit (SPNSMN ) CARRIE FLETCHER ([id number]) 1970 F Date Time Provider Department 12/21/22 12:00 PM MOISES WILLIS SPNSMN During your visit today, we recorded the following information about you: Pulse Respiration Blood pressure Weight 87/minute 16/minute 122/91 136.1 kg Height 1.88 m Moises Willis MD 12/21/2022 1:15 PM Signed SPINE SURGERY ESTABLISHED This is an in-person visit. Staff note: Patient with stable leg symptoms that came on suddenly with cord injury SP gastric bypass Lumbar canal stenosis, severe No pain in legs, numbness and weakness Patient not interested in lumbar surgery at this time FU in one year if stable symptoms, sooner with symptom worsening Moises Willis MD DATE OF SERVICE: 12/21/2022 DATE OF LAST VISIT: 09/21/2022 SUBJECTIVE: HPI:Carrie Fletcher is a 52 year old female presenting alone. Patient with complex history of 2018 gastric bypass c/b leg paralysis, which partially resolved after 2019 ACDF with residual left foot drop. She then experienced burning pain and weakness in the legs, progressing since 2021. Last saw Champ Patel on 11/27 during a virtual visit, with MRI showing severe central stenosis at L2/3, L3/4, moderate at L1/2, L4/5. Recommended to see Dr. Willis with lumbar flex/ex XR and CT scan. Today reports stable lower extremity and right shoulder weakness. She reports occasional burning feet bilaterally, occasional shooting pain in the left posterior leg below the knee and circumferential numbness. She has chronic numbness in the buttocks bilaterally. She worked with OT with her arms without much progression, with weakness with arm above her head. No pain. Known incontinence since 2018 gastric bypass. 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 gabapentin (NEURONTIN) 300 mg capsule TAKE 1 CAPSULE BY MOUTH IN THE MORNING AND IN THE AFTERNOON metoprolol tartrate, short acting, (LOPRESSOR) 25 mg tablet metoprolol tartrate 25 mg tablet TAKE 1/2 TABLET BY MOUTH TWICE DAILY apixaban (ELIQUIS) 5 mg tab(s) Eliquis 5 mg tablet TAKE 1 TABLET BY MOUTH TWICE A DAY solifenacin (VESICARE) 5 mg tablet Take 15 mg by mouth as directed. TAKE 2 TABLETS BY MOUTH IN THE MORNING, AND 1 TABLET IN THE EVENING Docusate Sodium 250 mg capsule Stool Softener Active cholecalciferol (VITAMIN D3) 5,000 unit tab Vitamin D3 1000 IU daily omega-3 fatty acids 1,000 mg cap Take by mouth q 24 HR. viatmin b complex - vitamin C - ferrous fumarate - folic acid (NEPHRON FA) 66 mg iron- 1,000 mcg tab tablet B Complex 100 sacod, Refill(s) 0 Start Date: 11/16/18 Status: Ordered calcium carbonate (TUMS ULTRA) 400 mg (1,000 mg) chew Take 1,000 mg by mouth three times daily. multivit-minerals/fol ic acid (ONE-A-DAY WOMEN VITACRAVES ORAL) Take by mouth. sennosides (SENOKOT ORAL) Take by mouth. Patient Entered Questionnaires Spine Questions 09/20/2022 11/24/2022 12/17/2022 Pain Location: Neck Leg Leg Pain Duration: 1 to 5 years - - Pain over last 6 months: Every day or nearly every day in the past 6 months - - Symptoms from neck/cervical spine: Yes Yes Yes Employment Status: Disabled due to back pain, permanently or temporarily - Disabled due to back pain, permanently or temporarily Off work 1 month or more due to back/neck pain: Yes - Yes Applied for/receive disability/WC due to low back/neck pain Yes - Yes Involved in law suit/legal claim: No - - Neck Questionnaires 09/20/2022 11/24/2022 Benzel Modified VELASQUEZ Score 12 (A lower score indicates increased pain and issues.) 13 (A lower score indicates increased pain and issues.) PROMIS Score Percentiles Physical Health 09/20/2022 11/24/2022 Physical Function Percentile 4 0 Sleep Percentile 24* 34 Fatigue Percentile 31 38 Pain Interference Percentile 4 10 PROMIS SOCIAL ROLE SCORE 09/20/2022 11/24/2022 Social Role Satisfaction Percentile 27* 21* PROMIS Global Health Scale 09/20/2022 12/17/2022 Physical Health Percentile 2 (more content not included)... Normal [facility] XR LUMBAR 4V AP/LAT/ FLEX/EX Ton 12-21-2022 XR LUMBAR 4V AP/LAT/ FLEX/EXT * * *Final Report* * * DATE OF EXAM: Dec 21 2022 11:43AM [facility] [id number] - XR LUMBAR 4V AP/LAT/ FLEX/EXT / PROCEDURE REASON: Spinal stenosis, lumbar region with neurogenic claudication * * * * Physician Interpretation * * * * EXAMINATION: XR LUMBAR 4V AP/LAT/ FLEX/EXT HISTORY: back pain Spinal stenosis, lumbar region with neurogenic claudication . TECHNIQUE: XR LUMBAR 4V AP/LAT/ FLEX/EXT Laterality: NOT APPLICABLE Number of different views (projections): 4 M: XB_1 COMPARISON: None RESULT/ IMPRESSION: Counting reference: Lumbosacral junction. For the purposes of this report, L4-5 is considered the level of the iliac crest and assume there are 5 lumbar-type vertebrae. Anatomic variant: None. Minimal retrolisthesis of L3 on L4 and L4 on L5 without significant change on flexion or extension. Multilevel degenerative changes. No compression fracture. Narrowing and sclerosis about the lower lumbar facet joints. No other significant abnormality. Orthopedic Nurse: PSCB Transcribe Date/Time: Dec 21 2022 12:36P Dictated by : BERTA HERMAN MD This examination was interpreted and the report reviewed and electronically signed by: BERTA HERMAN MD on Dec 21 2022 12:38PM EST [id number] Normal [facility] XR LUMBAR MOTION 4V AP/LAT/ FLEX/EXTon 12-21-2022 [facility] No Panel Informationon 11-17 Radiology Result ACTIONABLE Abnormal [facility] MRI LUMBAR SPINE WO IVCONon 11-16-2022 MRI LUMBAR SPINE WO IVCON * * *Final Report* * * DATE OF EXAM: Nov 16 2022 4:58PM [facility] 0303 - MRI LUMBAR SPINE WO IVCON / PROCEDURE REASON: Spinal stenosis of lumbar region, unspecified whether neurogenic claudication pr * * * * Physician Interpretation * * * * EXAMINATION: MRI THORACIC SPINE WO IVCON, MRI LUMBAR SPINE WO IVCON CLINICAL HISTORY: Spinal stenosis of lumbar region, unspecified whether neurogenic claudication present TECHNIQUE: Routine lumbosacral and thoracic spine MR protocol without gadolinium. MQ: [id number] COMPARISON: Cervical spine MRI performed 05/18/2022 RESULT: THORACIC: Counting reference: Craniocervical and lumbosacral junctions. For the purposes of this report, L4-5 is considered the level of the iliac crest and assume there are 5 lumbar-type vertebrae. Anatomic variant: None. Localizer images: Noncontributory. Alignment: Alignment is anatomic. Cord: The thoracic spinal cord is within normal limits of signal intensity and morphology. Bone marrow signal/fracture: No evidence of pathologic marrow infiltration. No evidence of prior fracture. Thoracic soft tissues: Small bilateral pleural effusions. Canal and foramina: Mild multilevel degenerative changes throughout the thoracic spine. Multiple bulging discs, most notably T10-T11 and T11-T12. Neural foraminal narrowing bilaterally at T10-T11 and T11-T12. LUMBAR: Counting reference: Craniocervical and lumbosacral junctions. For the purposes of this report, L4-5 is considered the level of the iliac crest and assume there are 5 lumbar-type vertebrae. Anatomic variant: None. Localizer images: Innumerable hepatic cysts and hydronephrosis and hydroureter partially imaged. Alignment: Straightening lumbar lordosis with alignment otherwise normal. Bone marrow signal/fracture: No evidence of pathologic marrow infiltration. No evidence of prior fracture. Posterior elements are intact. Type I endplate changes at L4-L5 with type II endplate changes at L5-S1 Conus: The conus is within normal limits of signal intensity and morphology. Paraspinal soft tissues: Innumerable renal cysts. L1-L2: Bulging disk, facet, and ligamentous hypertrophy results in moderate central canal narrowing and minimal neural foraminal narrowing. L2-L3: Bulging disk, facet, and ligamentous hypertrophy results in severe central canal narrowing and minimal neural foraminal narrowing. L3-L4: Bulging disk, facet, and ligamentous hypertrophy results in severe central canal narrowing and moderate neural foraminal narrowing. L4-L5: Bulging disk with a central inferiorly directed disc extrusion, facet, and ligamentous hypertrophy results in severe central canal narrowing and severe RIGHT and moderate LEFT neural foraminal narrowing. L5-S1: Bulging disk, facet, and ligamentous hypertrophy results in moderate central canal narrowing and severe neural foraminal narrowing. Sacrum and iliac wings: The visualized sacrum and iliac wings are within normal limits. The presacral soft tissues are normal in appearance. IMPRESSION: Degenerative changes at multiple levels in the lumbar spine most severe at L2-L3 through L4-L5 as itemized above. Mild multilevel degenerative changes present within the thoracic spine. Hydronephrosis and hydroureter, partially imaged. Anatomic Thoracic/Lumbar Variant: None. L4-5 is considered the level of the iliac crest and assume there are 5 lumbar-type vertebrae. ACTIONABLE RESULT: FOLLOW-UP Acuity: Actionable Findings: Kidneys/Ureters/Bladd er Routing Code: GU_1 Recommendation: Unlisted Recommendation (see report) Time Frame: At the discretion of the clinical team. COMMUNICATION: Results will be communicated with the ordering provider via [facility]isa staff message or phone message by [facility] Support Services within 2 business days of report finalization. --END OF FINDING-- Algorithms for management of incidental imaging findings can be found on the [facility] Intranet Sharepoint site at: [email or web address] [email or web address] [email or web address] [email or web address] [email or web address] Orthopedic Nurse: BEBEOT Transcribe Date/Time: Nov 17 2022 7:28A Dictated by : MOUSTAPHA DAY MD This examination was interpreted and the report reviewed and electronically signed by: MOUSTAPHA DAY MD on Nov 17 2022 7:41AM EST [id number] ACTIONABLE Invalid Interpretation Code [facility] MRI THORACIC SPINE WO IVCONo n 11-16-2022 MRI THORACIC SPINE WO IVCON * * *Final Report* * * DATE OF EXAM: Nov 16 2022 4:58PM [facility] 0325 - MRI THORACIC SPINE WO IVCON / PROCEDURE REASON: Spinal stenosis of lumbar region, unspecified whether neurogenic claudication pr * * * * Physician Interpretation * * * * EXAMINATION: MRI THORACIC SPINE WO IVCON, MRI LUMBAR SPINE WO IVCON CLINICAL HISTORY: Spinal stenosis of lumbar region, unspecified whether neurogenic claudication present TECHNIQUE: Routine lumbosacral and thoracic spine MR protocol without gadolinium. MQ: [id number] COMPARISON: Cervical spine MRI performed 05/18/2022 RESULT: THORACIC: Counting reference: Craniocervical and lumbosacral junctions. For the purposes of this report, L4-5 is considered the level of the iliac crest and assume there are 5 lumbar-type vertebrae. Anatomic variant: None. Localizer images: Noncontributory. Alignment: Alignment is anatomic. Cord: The thoracic spinal cord is within normal limits of signal intensity and morphology. Bone marrow signal/fracture: No evidence of pathologic marrow infiltration. No evidence of prior fracture. Thoracic soft tissues: Small bilateral pleural effusions. Canal and foramina: Mild multilevel degenerative changes throughout the thoracic spine. Multiple bulging discs, most notably T10-T11 and T11-T12. Neural foraminal narrowing bilaterally at T10-T11 and T11-T12. LUMBAR: Counting reference: Craniocervical and lumbosacral junctions. For the purposes of this report, L4-5 is considered the level of the iliac crest and assume there are 5 lumbar-type vertebrae. Anatomic variant: None. Localizer images: Innumerable hepatic cysts and hydronephrosis and hydroureter partially imaged. Alignment: Straightening lumbar lordosis with alignment otherwise normal. Bone marrow signal/fracture: No evidence of pathologic marrow infiltration. No evidence of prior fracture. Posterior elements are intact. Type I endplate changes at L4-L5 with type II endplate changes at L5-S1 Conus: The conus is within normal limits of signal intensity and morphology. Paraspinal soft tissues: Innumerable renal cysts. L1-L2: Bulging disk, facet, and ligamentous hypertrophy results in moderate central canal narrowing and minimal neural foraminal narrowing. L2-L3: Bulging disk, facet, and ligamentous hypertrophy results in severe central canal narrowing and minimal neural foraminal narrowing. L3-L4: Bulging disk, facet, and ligamentous hypertrophy results in severe central canal narrowing and moderate neural foraminal narrowing. L4-L5: Bulging disk with a central inferiorly directed disc extrusion, facet, and ligamentous hypertrophy results in severe central canal narrowing and severe RIGHT and moderate LEFT neural foraminal narrowing. L5-S1: Bulging disk, facet, and ligamentous hypertrophy results in moderate central canal narrowing and severe neural foraminal narrowing. Sacrum and iliac wings: The visualized sacrum and iliac wings are within normal limits. The presacral soft tissues are normal in appearance. IMPRESSION: Degenerative changes at multiple levels in the lumbar spine most severe at L2-L3 through L4-L5 as itemized above. Mild multilevel degenerative changes present within the thoracic spine. Hydronephrosis and hydroureter, partially imaged. Anatomic Thoracic/Lumbar Variant: None. L4-5 is considered the level of the iliac crest and assume there are 5 lumbar-type vertebrae. ACTIONABLE RESULT: FOLLOW-UP Acuity: Actionable Findings: Kidneys/Ureters/Bladd er Routing Code: GU_1 Recommendation: Unlisted Recommendation (see report) Time Frame: At the discretion of the clinical team. COMMUNICATION: Results will be communicated with the ordering provider via [facility] staff message or phone message by Imaging Support Services within 2 business days of report finalization. --END OF FINDING-- Algorithms for management of incidental imaging findings can be found on the [facility] Intranet Sharepoint site at: [email or web address] [email or web address] [email or web address] [email or web address] [email or web address] Orthopedic Nurse: BEBETO Transcribe Date/Time: Nov 17 2022 7:28A Dictated by : MOUSTAPHA DAY MD This examination was interpreted and the report reviewed and electronically signed by: MOUSTAPHA DAY MD on Nov 17 2022 7:41AM EST [id number] ACTIONABLE Invalid Interpretation Code [facility] Telephoneon 11-13-2022 Telephone [id number] Carrie Fletcher 1970 F Date Provider Department Center 11/13/2022 ILSA MÁRQUEZ OT Medical [facility] No family history on file Normal [facility] CNOVon 09-21-2022 CNOV Office Visit (SPNSMN ) CARRIE FLETCHER ([id number]) 1970 F Date Time Provider Department 09/21/22 10:10 AM MOISES WILLIS SPNSMN During your visit today, we recorded the following information about you: Pulse Respiration Blood pressure Weight 77/minute 18/minute 119/67 136.1 kg Height 1.88 m Moises Willis MD 09/21/2022 12:40 PM Signed SPINE SURGERY NEW PATIENT This is an in-person visit. Staff note: Patient with complex story, BLLE parparetic SP gastric bypass, no thoracic imaging, no lumbar imaging, 4.5 ACDF with some improvement, still with inability to walk without support and LLE foot drop, complaints of C5 palsy MRI prior to surgery to be sent in MRI t and L spine Scoli xr Plan to follow Moises Willis MD PCP: Lon Ibrahim REFERRING PROVIDER: Bryce Lara APRN.[employer] SUBJECTIVE HISTORY OF PRESENT ILLNESS: Carrie Fletcher is a 52 year old female presenting with spouse. CHIEF COMPLAINT: R arm weakness PRECIPITATING EVENT: Gastric bypass surgery in 2018 DURATION OF SYMPTOMS: Greater Than 1 Year Patient reports that all of her symptoms began after gastric bypass surgery in 2018. She endorses left foot drop since then; she is unable to dorsi or plantarflex her foot and wears her AFO. She is unable to ambulate without assistive devices; she uses a walker at home and a wheelchair when out of the house. She does not stand without assistance. She had a C4-5 ACDF in 2019 following the gastric bypass; postoperative course was complicated by PE. She takes Eliquis 5 mg twice daily since. Her symptoms today include subjective weakness of the right arm, especially the right shoulder. She feels that she is not able to abduct or forward flex the right shoulder adequately compared to the left. She endorses further clumsiness of her hands bilaterally; she notes dropping mugs frequently. She also reports intermittent numbness of the left thumb. She does not have any neck pain per se, and denies radicular pain or paresthesias in the arms. She has ill-defined lower extremity pain, complicated by patchy numbness following the gastric bypass surgery. She does not feel her buttocks, but notes a burning sensation in her calves intermittently. She takes gabapentin 300 mg twice daily and 600 mg at night. She takes Tylenol frequently for diffuse body pain. 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 PAIN EVALUATION 09/20/2022 0225 09/21/2022 0931 Pain Level: 5 -- Pain Location: Ankle-Right Back neck Description: Numbness -- Duration Amount of Time: 5 -- Duration Units: Hours -- Frequency: Intermittent -- Pain Radiation: Nonspecific R arm, nonradicular Aggravating Factors: Above shoulder activities Alleviating Factors: None Pain Ratio: Pain in the arm is greater than in the neck DERMATOMAL DISTRIBUTION: Not applicable AMBULATORY STATUS: Impaired Home Distances ANTIPLATELET OR ANTICOAGULATION STATUS: Yes PE 2019 after ACDF ; Eliquis 5 mg BID PREVIOUS CONSERVATIVE TREATMENTS: OTC NSAIDS for 3 Months or Greater (Tylenol / acetaminophen) Dates of PT this year for shoulders Gabapentin as above PREVIOUS SPINAL SURGERY: SURGERY #1: ACDF C4-5 2019 There is no problem list on file for this patient. No past medical history on file. No past surgical history on file. No family history on file. Social History Tobacco Use Smoking status: Never Smokeless tobacco: Never Substance Use Topics Alcohol use: Never Drug use: Never ALLERGIES Allergen Reactions Amoxicillin-Pot Cla* Diarrhea Oxycodone Unknown Adhesive Tape-Silic* Rash MEDICATIONS: gabapentin (NEURONTIN) 600 mg tablet Take 600 mg by mouth daily at bedtime. gabapentin (NEURONTIN) 300 mg capsule TAKE 1 CAPSULE BY MOUTH IN THE MORNING AND IN THE AFTERNOON metoprolol tartrate, short acting, (LOPRESSOR) 25 mg tablet metoprolol tartrate 25 mg tablet TAKE 1/2 TABLET BY MOUTH TWICE DAILY apixaban (ELIQUIS) 5 mg tab(s) Eliquis 5 mg tablet TAKE 1 TABLET BY MOUTH TWICE A DAY solifenacin (VESICARE) 5 mg tablet Take 15 mg by mouth as directed. TAKE 2 TABLETS BY MOUTH IN THE MORNING, AND 1 TABLET IN THE EVENING Docusate Sodium 250 mg capsule Stool Softener Active cholecalciferol (VITAMIN D3) 5,000 unit tab Vitamin D3 1000 IU daily omega-3 fatty acids 1,000 mg cap Take by mouth q 24 HR. viatmin b complex - vitamin C - ferrous fumarate - folic acid (NEPHRON FA) 66 mg iron- 1,000 mcg tab tablet B Complex 100 sacod, Refill(s) 0 Start Date: 11/16/18 Status: Ordered calcium carbonate (TUMS ULTRA) 400 mg (1,000 mg) chew Take 1,000 mg by mouth three times daily. multivit-minerals/fol ic acid (ONE-A-DAY WOMEN VITACRAVES ORAL) Take by mouth. sennosides (SENOKOT ORAL) Take by mouth. REVIEW OF SYSTEMS: GENERAL: No weight loss or malaise MUSCULOSKELETAL: Negative for joint pain, swelling or muscl (more content not included)... Normal [facility] No Panel Informationon 09-21 [facility] XR SCOLIOSIS 2V PA STAND/LAT on 09-21-2022 XR SCOLIOSIS 2V PA STAND/LAT * * *Final Report* * * DATE OF EXAM: Sep 21 2022 11:19AM [facility] 5251 - XR SCOLIOSIS 2V PA STAND/LAT / PROCEDURE REASON: Spinal stenosis of lumbar region, unspecified whether neurogenic claudication pr * * * * Physician Interpretation * * * * XR SCOLIOSIS 2V PA STAND/LAT HISTORY: chronic. Spinal stenosis of lumbar region, unspecified whether neurogenic claudication present . TECHNIQUE: AP and lateral scoliosis series (11 total films). COMPARISON: None RESULT: Counting reference: Lumbosacral junction. For the purposes of this report, L5-S1 is considered the last lumbar type disc space and L4-5 is considered the level of the iliac crest. Minimal S-shaped scoliosis thoracolumbar spine which is convex to the left in the thoracic spine and convex to the right in the lumbar spine. There is degenerative disc disease throughout the thoracolumbar spine, this is mild throughout the thoracic spine and mild to moderate in the lumbar spine. Findings are most pronounced at L3-L4 and L5-S1. Additionally noted are postsurgical changes from remote anterior cervical spine fusion at C4-C5. IMPRESSION: Minimal scoliosis thoracolumbar spine. Mild thoracic and mild to moderate lumbar degenerative change. Orthopedic Nurse: BEBETO Transcribe Date/Time: Sep 21 2022 11:58A Dictated by : BETH FUNEZ MD This examination was interpreted and the report reviewed and electronically signed by: BETH FUNEZ MD on Sep 21 2022 12:44PM EST [id number] Normal [facility] Telephoneon 08-27-2022 Telephone [id number] Carrie Fletcher 1970 F Date Provider Department Center 08/27/2022 ILSA MÁRQUEZ MP OT Medical [facility] No family history on file Normal [facility] Telephoneon 08-24-2022 Telephone [id number] Carrie Fletcher 1970 F Date Provider Department Center 08/24/2022 ILSA MÁRQUEZ MP OT Medical [facility] No family history on file Normal [facility] Rina 07-28-2022 CNPN Telephone (SPNSMN) CARRIE FLETCHER ([id number]) 1970 F Date Time Provider Department 07/28/22 BRYCE LARA SPNSMN During your visit today, we recorded the following information about you: Meaghan Moser [facility] 07/28/2022 9:50 AM Signed Pt called; states she had EMG completed on 06/06/22 at an external facility; she will notify them to fax it to [phone]. Allergies As of Date: 07/28/2022 Noted Allergy Reaction AMOXICILLIN-POT CLAVULANATE 06/29/2022 6 - Diarrhea OXYCODONE 06/29/2022 16 - Unknown ADHESIVE TAPE-SILICONES 11/08/2018 2 - Rash Date Reviewed: 06/29/2022 Reviewed by: Shelley Cheatham MA - Fully Assessed Reason for Visit: Patient Update [1234] Prescriptions as of 07/28/2022 - gabapentin (NEURONTIN) 600 mg tablet Take 600 mg by mouth daily at bedtime. - gabapentin (NEURONTIN) 300 mg capsule TAKE 1 CAPSULE BY MOUTH IN THE MORNING AND IN THE AFTERNOON - metoprolol tartrate, short acting, (LOPRESSOR) 25 mg tablet metoprolol tartrate 25 mg tablet TAKE 1/2 TABLET BY MOUTH TWICE DAILY - apixaban (ELIQUIS) 5 mg tab(s) Eliquis 5 mg tablet TAKE 1 TABLET BY MOUTH TWICE A DAY - solifenacin (VESICARE) 5 mg tablet Take 15 mg by mouth as directed. TAKE 2 TABLETS BY MOUTH IN THE MORNING, AND 1 TABLET IN THE EVENING - Docusate Sodium 250 mg capsule Stool Softener Active - cholecalciferol (VITAMIN D3) 5,000 unit tab Vitamin D3 1000 IU daily - omega-3 fatty acids 1,000 mg cap Take by mouth q 24 HR. - viatmin b complex - vitamin C - ferrous fumarate - folic acid (NEPHRON FA) 66 mg iron- 1,000 mcg tab tablet B Complex 100 sacod, Refill(s) 0 Start Date: 11/16/18 Status: Ordered - calcium carbonate (TUMS ULTRA) 400 mg (1,000 mg) chew Take 1,000 mg by mouth three times daily. - multivit-minerals/fol ic acid (ONE-A-DAY WOMEN VITACRAVES ORAL) Take by mouth. - sennosides (SENOKOT ORAL) Take by mouth. Problem List As Of Date: 07/28/2022 (None) Encounter Status:Closed by MEAGHAN DAVID on 07/28/22 [address] [facility] [address] CERVICAL SPINE WO CONTRAS Ton 07-18-2022 CT CERVICAL SPINE WO CONTRAST EXAMINATION: CT OF THE CERVICAL SPINE WITHOUT CONTRAST 07/13/2022 11:32 am TECHNIQUE: CT of the cervical spine was performed without the administration of intravenous contrast. Multiplanar reformatted images are provided for review. Automated exposure control, iterative reconstruction, and/or weight based adjustment of the mA/kV was utilized to reduce the radiation dose to as low as reasonably achievable. COMPARISON: MRI 05/18/2022. HISTORY: ORDERING SYSTEM PROVIDED HISTORY: Spinal stenosis, cervical region FINDINGS: BONES/ALIGNMENT: Prior anterior metallic fusion discectomy at C4-C5 is again noted. The hardware is intact with no evidence of loosening. The disc space appears partially fused. There is normal spinal alignment. C1 and C2 have normal relationship. There is no acute fracture. DEGENERATIVE CHANGES: Degenerative disc disease is moderate at C5-C6 and mild elsewhere. There is [id number] multilevel facet arthropathy in the spine. Central canal narrowing appears at least moderate and possibly severe at C5-C6 and is mild at C3-C4 and C6-C7. Multilevel osseous foraminal narrowing is mild bilaterally at C3-C4, mild on the left at C4-C5 and [id number] bilaterally at C5-C6. SOFT TISSUES: There is no prevertebral soft tissue swelling. IMPRESSION: 1. Prior anterior metallic fusion discectomy at C4-C5 out evident hardware complication. 2. Spinal degenerative changes as described. Multilevel central canal narrowing is most prominent at least moderate and possibly severe at C5-C6. Multilevel osseous neural foraminal narrowing is most prominent and ivuu-jv-lbxxfjoh bilaterally at C5-C6. Interpreted by: Ilsa Whitley MD Signed by: Ilsa Whitley MD 07/17/22 Final result [facility] 07-17-2022 [facility] Telephone (NIQ) CARRIE FLETCHER ([id number]) 1970 F Date Time Provider Department 07/17/22 BRYCE LARA During your visit today, we recorded the following information about you: Donna Pal 07/17/2022 12:55 PM Signed Received the following record(s) via Fax. -MRI Cervical Spine WO Contrast Date 05/18/22 Sending images over through PACS. Record(s) scanned into pt's chart. Donna Bradmel Allergies As of Date: 07/17/2022 Noted Allergy Reaction AMOXICILLIN-POT CLAVULANATE 06/29/2022 6 - Diarrhea OXYCODONE 06/29/2022 16 - Unknown ADHESIVE TAPE-SILICONES 11/08/2018 2 - Rash Date Reviewed: 06/29/2022 Reviewed by: Shelley Cheatham MA - Fully Assessed Reason for Visit: MRI Report [1240] Prescriptions as of 07/28/2022 - gabapentin (NEURONTIN) 600 mg tablet Take 600 mg by mouth daily at bedtime. - gabapentin (NEURONTIN) 300 mg capsule TAKE 1 CAPSULE BY MOUTH IN THE MORNING AND IN THE AFTERNOON - metoprolol tartrate, short acting, (LOPRESSOR) 25 mg tablet metoprolol tartrate 25 mg tablet TAKE 1/2 TABLET BY MOUTH TWICE DAILY - apixaban (ELIQUIS) 5 mg tab(s) Eliquis 5 mg tablet TAKE 1 TABLET BY MOUTH TWICE A DAY - solifenacin (VESICARE) 5 mg tablet Take 15 mg by mouth as directed. TAKE 2 TABLETS BY MOUTH IN THE MORNING, AND 1 TABLET IN THE EVENING - Docusate Sodium 250 mg capsule Stool Softener Active - cholecalciferol (VITAMIN D3) 5,000 unit tab Vitamin D3 1000 IU daily - omega-3 fatty acids 1,000 mg cap Take by mouth q 24 HR. - viatmin b complex - vitamin C - ferrous fumarate - folic acid (NEPHRON FA) 66 mg iron- 1,000 mcg tab tablet B Complex 100 sacod, Refill(s) 0 Start Date: 11/16/18 Status: Ordered - calcium carbonate (TUMS ULTRA) 400 mg (1,000 mg) chew Take 1,000 mg by mouth three times daily. - multivit-minerals/fol ic acid (ONE-A-DAY WOMEN VITACRAVES ORAL) Take by mouth. - sennosides (SENOKOT ORAL) Take by mouth. Problem List As Of Date: 07/17/2022 (None) Encounter Status:Closed by MEAGHAN DAVID on 07/28/22 [facility] Rina 07-16-2022 NATALIA Telephone (NIQ) CARRIE FLETCHER ([id number]) 1970 F Date Time Provider Department 07/16/22 BRYCE LARA During your visit today, we recorded the following information about you: Donna Pal 07/16/2022 1:33 PM Signed Received outside imaging/report: CD Yes Report No Images Uploaded: Yes Report Scanned: No Imaging received CT Cervical Spine Date of study 07/13/22 Verified imaging and reports were received. Forwarded to team for review. Donna Lara APRN.[facility] 07/22/2022 9:33 AM Addendum Called patient to go over CT results next step in plan of care. No answer on patient's phone and voicemail was full could not leave a message. We will place order for EMG of right upper extremity to confirm cervical radiculopathy versus neuropathy. Reviewed with Dr Banks and I will also review with Dr. 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 Once I have confirmed this with an EMG I will probably recommend patient see first available surgeon to discuss possible revision versus alternative treatments. Bryce Lara APRN.[facility] Allergies As of Date: 07/16/2022 Noted Allergy Reaction AMOXICILLIN-POT CLAVULANATE 06/29/2022 6 - Diarrhea OXYCODONE 06/29/2022 16 - Unknown ADHESIVE TAPE-SILICONES 11/08/2018 2 - Rash Date Reviewed: 06/29/2022 Reviewed by: Shelley Cheatham MA - Fully Assessed Reason for Visit: Scans [867] Primary Visit Diagnosis:Cervical disc disorder with radiculopathy [M50.10] Other Visit Diagnosis:Right arm weakness [R29.898] Order(s):EMG(NEURO/NI ) [[id number]] Order #: [id number]: 1 FUTURE Prescriptions as of 07/22/2022 - gabapentin (NEURONTIN) 600 mg tablet Take 600 mg by mouth daily at bedtime. - gabapentin (NEURONTIN) 300 mg capsule TAKE 1 CAPSULE BY MOUTH IN THE MORNING AND IN THE AFTERNOON - metoprolol tartrate, short acting, (LOPRESSOR) 25 mg tablet metoprolol tartrate 25 mg tablet TAKE 1/2 TABLET BY MOUTH TWICE DAILY - apixaban (ELIQUIS) 5 mg tab(s) Eliquis 5 mg tablet TAKE 1 TABLET BY MOUTH TWICE A DAY - solifenacin (VESICARE) 5 mg tablet Take 15 mg by mouth as directed. TAKE 2 TABLETS BY MOUTH IN THE MORNING, AND 1 TABLET IN THE EVENING - Docusate Sodium 250 mg capsule Stool Softener Active - cholecalciferol (VITAMIN D3) 5,000 unit tab Vitamin D3 1000 IU daily - omega-3 fatty acids 1,000 mg cap Take by mouth q 24 HR. - viatmin b complex - vitamin C - ferrous fumarate - folic acid (NEPHRON FA) 66 mg iron- 1,000 mcg tab tablet B Complex 100 sacod, Refill(s) 0 Start Date: 11/16/18 Status: Ordered - calcium carbonate (TUMS ULTRA) 400 mg (1,000 mg) chew Take 1,000 mg by mouth three times daily. - multivit-minerals/fol ic acid (ONE-A-DAY WOMEN VITACRAVES ORAL) Take by mouth. - sennosides (SENOKOT ORAL) Take by mouth. Problem List As Of Date: 07/16/2022 (None) Encounter Status:Closed by BRYCE LARA on 07/22/22 [facility] CNOVon 06-29-2022 CNOV Office Visit (SPNSMN ) CARRIE FLETCHER ([id number]) 1970 F Date Time Provider Department 06/29/22 1:00 PM BRYCE LARA SPNSMN During your visit today, we recorded the following information about you: Pulse Respiration Blood pressure Height 88/minute 16/minute 121/71 1.88 m Bryce Lara APRN.[facility] 07/01/2022 11:56 AM Signed SPINE SURGERY OUTPATIENT CONSULT This is an in-person visit. SERVICE DATE: 06/29/2022 PCP: Lon Ibrahim DO REFERRING PROVIDER: Lon Antonio DO [address] [place] [phone] Consult requested for an opinion regarding the evaluation and treatment of right arm weakness. My final impression and recommendations will be communicated back to the requesting physician by way of the shared medical record or letter via US mail. SUBJECTIVE Carrie Fletcher is a 51 year old female presenting with her brother. CHIEF COMPLAINT: Right arm weakness In 2018 patient had gastric bypass and woke up with left foot drop was discharged to a jail and now wears AFO brace constantly since. Has been in PT since 2018. She endorses left leg numbness and difficulty walking uses a walker shortly and currently in wheelchair. She had C4/5 ACDF in 2019 still having difficulty walking has recently fall twice. CMT: PT, Gabapentin 300 mg BID, 600 mg at night + bowel and bladder incontinence; she does have a spastic bladder following ACDF on Vesicare. Denies trouble using hands. Denies numbness and tingling. Denies neck pain. HISTORY OF PRESENT ILLNESS PRECIPITATING EVENT: None DURATION OF SYMPTOMS: Greater Than 1 Year Progressive worsening right arm weakness AMBULATORY STATUS: Impaired Community Distances ANTIPLATELET OR ANTICOAGULATION STATUS: Yes SVTs PREVIOUS CONSERVATIVE TREATMENTS: See HPI PREVIOUS SPINAL SURGERY: SURGERY #1: ACDF C4/5 2019 ALLERGIES Allergen Reactions Amoxicillin-Pot Cla* Diarrhea Oxycodone Unknown Adhesive Tape-Silic* Rash MEDICATIONS: gabapentin (NEURONTIN) 600 mg tablet Take 600 mg by mouth daily at bedtime. gabapentin (NEURONTIN) 300 mg capsule TAKE 1 CAPSULE BY MOUTH IN THE MORNING AND IN THE AFTERNOON metoprolol tartrate, short acting, (LOPRESSOR) 25 mg tablet metoprolol tartrate 25 mg tablet TAKE 1/2 TABLET BY MOUTH TWICE DAILY apixaban (ELIQUIS) 5 mg tab(s) Eliquis 5 mg tablet TAKE 1 TABLET BY MOUTH TWICE A DAY solifenacin (VESICARE) 5 mg tablet Take 15 mg by mouth as directed. TAKE 2 TABLETS BY MOUTH IN THE MORNING, AND 1 TABLET IN THE EVENING Docusate Sodium 250 mg capsule Stool Softener Active cholecalciferol (VITAMIN D3) 5,000 unit tab Vitamin D3 1000 IU daily omega-3 fatty acids 1,000 mg cap Take by mouth q 24 HR. viatmin b complex - vitamin C - ferrous fumarate - folic acid (NEPHRON FA) 66 mg iron- 1,000 mcg tab tablet B Complex 100 sacod, Refill(s) 0 Start Date: 11/16/18 Status: Ordered calcium carbonate (TUMS ULTRA) 400 mg (1,000 mg) chew Take 1,000 mg by mouth three times daily. multivit-minerals/fol ic acid (ONE-A-DAY WOMEN VITACRAVES ORAL) Take by mouth. sennosides (SENOKOT ORAL) Take by mouth. REVIEW OF SYSTEMS: GENERAL: No weight loss or malaise MUSCULOSKELETAL: Negative for joint pain, swelling or muscle pain NEURO: No history of headaches, syncope, paralysis, seizures or tremors Patient Entered Questionnaires PROMIS Score Percentiles Percentiles provide an indication of how the patient's score ranks in relation to the general population. Higher percentile rankings indicate better function/quality of life. 50th percentile is the average of the general population and indicates half of respondents had a worse score. Depression Screening: PHQ-9 Self-Harm (Item 9) response options: 0 Not at all 1 Several days 2 More than half the days 3 Nearly every day PHQ-9 Levels: 0-4 No to mild depression 5-9 Mild depression 10-14 Moderate depression 15-19 Moderately severe depression 20-27 Severe depression OBJECTIVE: PHYSICAL EXAM BP 121/71 Pulse 88 Resp 16 Ht 188 cm (6' 2 ) SpO2 94% GENERAL APPEARANCE: Well nourished, well developed, and no apparent distress. NEURO PSYCH: Patient oriented to person, place, and time. Mood pleasant. Benign affect. MUSCULOSKELETAL VISUAL INSPECTION CERVICAL: WNL THORACIC: WNL LUMBAR: WNL PALPATION: SPINOUS PROCESS: No pain. PARASPINALS: No pain. MUSCLE BULK: Normal and symmetrical in the upper AND lower extremities. MUSCLE TONE: Normal. MOTOR: Deltoid Right: 4, Left: 5 SENSORY: Normal sensory exam GAIT: Abnormal. Antalgic. Steppage gait. REFLEXES: +2 to bilateral U/L extremities. PROPRIOCEPTION: Normal. LONG TRACT SIGNS: No clonus. No Hoffmans. LHERMITTE SIGN: Negative. SPURLING'S TEST: Negative. DATA REVIEW Images independently reviewed with the patient MRI cervical spine reveals chronic myomalacia centered at C for C5 le (more content not included)... 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1970 Visit Date:06/16/2022 Ambulatory Visit Instructions Your Diagnosis Recurrent UTI Incontinence without sensory awareness Asymptomatic microscopic hematuria Postinfective urethral stricture in female Your Care Team Attending Physician - Nicole KEENE MD Primary Care Physician - LON IBRAHIM DO This Is Your Medications List solifenacin (Vesicare 5 mg Tab) Contact prescribing physician if questions or concerns acetaminophen apixaban (Eliquis 5 mg oral tablet) biotin bisacodyl calcium carbonate cholecalciferol (Vitamin D 1000 intl units Tab) ciprofloxacin (Cipro 500 mg Tab) cranberry (Cranberry) docusate (docusate sodium) gabapentin gabapentin (gabapentin 400 mg Cap) metoprolol (metoprolol 25 mg ER Tab) multivitamin (B Complex 100) multivitamin (Multi Vitamin+) omega-3 polyunsaturated fatty acids ([place]-3) Procedures Performed Urodynamics (12/10/2021), Cystourethroscopy and dilation of bladder (07/21/2021), TURBT - Transurethral resection of bladder tumor (03/11/2019), 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 Discharge Vitals Heart Rate (Peripheral) 90 Respiratory Rate 16 Blood Pressure 114/76 Height 187 cm Height 74 in Weight 110 kg Weight 242 lb BMI 31.46 What to do next Scheduled Follow-Up Appointments Wednesday. 2023 9:45 AM EDT With: YECENIA FOLEY, Nicole Garcia Where: [facility] Patient Educationon 06-17-19 Patient Education Obstetrics and Gynecology Urinary Tract Infection, Adult A urinary tract infection (UTI) is an infection of any part of the urinary tract. The urinary tract includes the kidneys, ureters, bladder, and urethra. These organs make, store, and get rid of urine in the body. An upper UTI affects the ureters and kidneys. A lower UTI affects the bladder and urethra. What are the causes? Most urinary tract infections are caused by bacteria in your genital area around your urethra, where urine leaves your body. These bacteria grow and cause inflammation of your urinary tract. What increases the risk? You are more likely to develop this condition if: ? You have a urinary catheter that stays in place. ? You are not able to control when you urinate or have a bowel movement (incontinence). ? You are female and you: ? Use a spermicide or diaphragm for control. ? Have low estrogen levels. ? Are . ? You have certain genes that increase your risk. ? You are sexually active. ? You take antibiotic medicines. ? You have a condition that causes your flow of urine to slow down, such as: ? An enlarged prostate, if you are male. ? Blockage in your urethra. ? A kidney stone. ? A nerve condition that affects your bladder control (neurogenic bladder). ? Not getting enough to drink, or not urinating often. ? You have certain medical conditions, such as: ? Diabetes. ? A weak disease-fighting system (immunesystem). ? Sickle cell disease. ? Gout. ? Spinal cord injury. What are the signs or symptoms? Symptoms of this condition include: ? Needing to urinate right away (urgency). ? Frequent urination. This may include small amounts of urine each time you urinate. ? Pain or burning with urination. ? Blood in the urine. ? Urine that smells bad or unusual. ? Trouble urinating. ? Cloudy urine. ? Vaginal discharge, if you are female. ? Pain in the abdomen or the lower back. You may also have: ? Vomiting or a decreased appetite. ? Confusion. ? Irritability or tiredness. ? A fever or chills. ? Diarrhea. The first symptom in older adults may be confusion. In some cases, they may not have any symptoms until the infection has worsened. How is this diagnosed? This condition is diagnosed based on your medical history and a physical exam. You may also have other tests, including: ? Urine tests. ? Blood tests. ? Tests for STIs (sexually transmitted infections). If you have had more than one UTI, a cystoscopy or imaging studies may be done to determine the cause of the infections. How is this treated? Treatment for this condition includes: ? Antibiotic medicine. ? Ftrn-vkp-obzxfln medicines to treat discomfort. ? Drinking enough water to stay hydrated. If you have frequent infections or have other conditions such as a kidney stone, you may need to see a health care provider who specializes in the urinary tract (urologist). In rare cases, urinary tract infections can cause sepsis. Sepsis is a life-threatening condition that occurs when the body responds to an infection. Sepsis is treated in the hospital with IV antibiotics, fluids, and other medicines. Follow these instructions at home: Medicines ? Take irga-lxg-ezzanoz and prescription medicines only as told by your health care provider. ? If you were prescribed an antibiotic medicine, take it as told by your health care provider. Do not stop using the antibiotic even if you start to feel better. General instructions ? Make sure you: ? Empty your bladder often and completely. Do not hold urine for long periods of time. ? Empty your bladder after sex. ? Wipe from front to back after urinating or having a bowel movement if you are female. Use each tissue only one time when you wipe. ? Drink enough fluid to keep your urine pale yellow. ? Keep all follow-up visits. This is important. Contact a health care provider if: ? Your symptoms do not get better after 1?2 days. ? Your symptoms go away and then return. Get help right away if: ? You have severe pain in your back or your lower abdomen. ? You have a fever or chills. ? You have nausea or vomiting. Summary ? A urinary tract infection (UTI) is an infection of any part of the urinary tract, which includes the kidneys, ureters, bladder, and urethra. ? Most urinary tract infections are caused by bacteria in your genital area. ? Treatment for this condition often includes antibiotic medicines. ? If you were prescribed an antibiotic medicine, take it as told by your health care provider. Do not stop using the antibiotic even if you start to feel better. ? Keep all follow-up visits. This is important. This information is not intended to replace advice given to you by your health care provider. Make sure you discuss any questions you have with your health care provider. Document Revised: 09/06/2020 Document Revie (more content not included)... Normal [facility] Urology Office/Clinic Noteon 06-16-2022 Urology Office/Clinic Note Chief Complaint 3 month HPI Staff This is a 51 year old female here for 3 month F/U. Previous DX: recurrent UTI, incontinence without sensory awareness, asymptomatic micro hematuria and postinfective urethral stricture in female. S/P Cysto/UD done 07/21/21. Pt. is not able to give a urine sample today. Pt. states VESIcare is working a little. Pt. states she has been taking Uqora over the counter. Pain with urination:No Blood in urine:Pt. states her urine was dark brown and not sure was blood or just dark urine. Incomplete bladder emptying:No Frequency: every 2 hours Urgency:No Nocturia:1x Hesitancy:No Urination requires straining:No Stream:good stream Stream starts and stops:no Leaking before getting to the restroom:Moderate Urinary incontinence without sensory awareness:Moderate Temporarily unable to restrain urination with body movement:Moderate Wearing pad/Depends:Yes Pt. will use 6 depends a day History of Present Illness Tests reviewed: None. I have reviewed the previous health record information and history for this patient from Dr. Keene. I have reviewed and verified the staff HPI to be accurate for this encounter. There have been no associated fever, chills, flank pain, or blood in the urine. Denies any urinary infections since last encounter. Review of Systems PHQ Score Initial Depression Screen Score: 0 ROS - Provider Constitutional: denies weight loss, denies hot flashes. Eyes: denies eye problems. Gastrointestinal: denies nausea, denies vomiting. Cardiovascular: denies chest pain or angina. Integumentary: no dryness Musculoskeletal: denies musculoskeletal symptoms. ENMT: denies otolaryngeal symptoms. Respiratory: no shortness of breath. Heme/Lymph: denies easy bleeding tendency, denies easy bruising tendency. Psychiatric: no confusion, no anxiety. Genitourinary: See HPI. Physical Exam Vitals & Measurements HR: 90(Peripheral) RR: 16 BP: 114/76 HT: 74 in HT: 187 cm WT: 110 kg WT: 242 lb BMI: 31.46 General Appearance: alert , no acute distress, well nourished, well developed female. Genitourinary: bladder nonpalpable, no flank pain. Assessment/Plan 1. Recurrent UTI (N39.0: Urinary tract infection, site not specified) No urine sample today. + culture 02/26/22 E Coli. Patient states she starting taking Uqora. 2. Incontinence without sensory awareness (N39.42: Incontinence without sensory awareness) Urodynamics 12/10/21 normal report. Patient also experiencing urge incontinence. Continues VESIcare 5mg daily, states it is somewhat working. Patient goes through 6 pads/day. Will increase VESIcare 5mg (2 tabs in the morning and 1 tab in the evening). New script sent today. Follow up in 1 year. All questions/concerns were discussed. Pt. to call the office if she encounters any issues prior. Pt. acknowledges understanding. 3. Asymptomatic microscopic hematuria (R31.21: Asymptomatic microscopic hematuria) S/p cysto 07/2021 neg for b.t. or lesions. No urine sample provided today. States her urine is dark. Denies gross hematuria. Patient to call the office if she would witness gross blood. 4. Postinfective urethral stricture in female (N35.12: Postinfective urethral stricture, not elsewhere classified, female) S/p Cysto/UD 07/21/21. 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 Follow-up With When Contact Information YECENIA FOLEY, Nicole Garcia, URL [address] [place] [address]- Additional Instructions: 1 year Patient Education Urinary Tract Infection, Adult I, Peyton Bond, personally scribed for Dr. Keene on 06/16/2022 10:19:29. . Documentation recorded by the scribe, Peyton Bond, accurately reflects the services(s) I performed and decisions made by me. Authenticated by Dr. Keene on 06/16/2022 10:23:43. Problem List/Past Medical History Ongoing Anticoagulated Anxiety disorder Apnea, sleep Asymptomatic microscopic hematuria Bladder diverticulitis Bladder mass Cervical spine disease Chronic lower back pain Depression Detrusor and sphincter dyssynergia Diverticulosis GERD (gastroesophageal reflux disease) Gross hematuria Hydronephrosis of right kidney Incontinence without sensory awareness Lymphedema Microhematuria Morbid obesity MRSA (methicillin resistant staph aureus) culture positive Neurogenic bladder Postinfective urethral stricture in female Recurrent UTI Retention of urine Stress incontinence Tachycardia Urgency incontinence Urinary retention Historical No qualifying data Procedure/Surgical History Urodynamics (12/10/2021), Cystourethr (more content not included)... Normal [facility] Comment on above: Result Comment: Elec tronically Signed By: Nicole KEENE MD\.br\Date and Time Signed: 06/16/22 10:23 EDT\.br\Electronically Co-Signed By: Peyton Bond\.br\Date and Time Co-Signed: 06/16/22 10:19 EDT A1C with Estimated Average G thereseshaheen 05-26-2022 Glucose [Mass/Vol] 108 mg/dL Normal [facility] Comment on above: Order Comment: Reaso n for Exam Hyperglycemia Result Comment: PERF ORMED BY: [facility] [address] [place] [address] PATHOLOGIST HEALTH PROFESSIONAL DINO ANDREWS M.D. Performed By: #### B 12, BRAIN, CBC, FOL, TSH3, CMP, LIPID, A1C WT eA #### [address] HbA1c (Bld) [Mass fraction] 5.4 % Normal 4.3-5.6 [facility] Comment on above: Order Comment: Reaso n for Exam Hyperglycemia Result Comment: Incr eased risk for diabetes: 5.7 - 6.4 diabetes: >6.4 glycemic control for adults with diabetes: <7.0 Performed By: #### B 12, BRAIN, CBC, FOL, TSH3, CMP, LIPID, A1C WTH eA #### [address] Complete Blood Count Auto Di ffon 05-26-2022 Basophils (Bld) [#/Vol] 0.0 10*3/uL Normal 0.0-0.2 [facility] Comment on above: Order Comment: Reaso n for Exam Hyperlipidemia Result Comment: PERF ORMED BY: [place] [address] PATHOLOGIST HEALTH PROFESSIONAL DINO ANDREWS M.D. Performed By: #### B 12, BRAIN, CBC, FOL, TSH3, CMP, LIPID, A1C WTH eA #### [address] Basophils/100 WBC (Bld) 0.3 % Normal . F [facility] Comment on above: Order Comment: Reaso n for Exam Hyperlipidemia Performed By: #### B 12, BRAIN, CBC, FOL, TSH3, CMP, LIPID, A1C WTH eA #### [address] Eosinophils (Bld) [#/Vol] 0.1 10*3/uL Normal 0.0-0.45 [facility] Comment on above: Order Comment: Reaso n for Exam Hyperlipidemia Performed By: #### B 12, BRAIN, CBC, FOL, TSH3, CMP, LIPID, A1C WTH eA #### [address] Eosinophils/100 WBC (Bld) 2.1 % Normal . [facility] Comment on above: Order Comment: Reaso n for Exam Hyperlipidemia Performed By: #### B 12, BRAIN, CBC, FOL, TSH3, CMP, LIPID, A1C WTH eA #### [facility] [address] Erythrocyte distribution width (RBC) [Ratio] 14.1 % Normal 11.9-15.3 [facility] Comment on above: Order Comment: Reaso n for Exam Hyperlipidemia Performed By: #### B 12, BRAIN, CBC, FOL, TSH3, CMP, LIPID, A1C WTH eA #### [facility] [address] Hematocrit (Bld) [Volume fraction] 39.2 % Normal 34.0-46.4 [facility] Comment on above: Order Comment: Reaso n for Exam Hyperlipidemia Performed By: #### B 12, BRAIN, CBC, FOL, TSH3, CMP, LIPID, A1C WTH eA #### [address] Hemoglobin (Bld) [Mass/Vol] 12.6 g/dL Normal 11.8-15.4 [facility] Comment on above: Order Comment: Reaso n for Exam Hyperlipidemia Performed By: #### B 12, BRAIN, CBC, FOL, TSH3, CMP, LIPID, A1C WTH eA #### [address] Lymphocytes (Bld) [#/Vol] 2.3 10*3/uL Normal 1.00-4.8 [facility] Comment on above: Order Comment: Reaso n for Exam Hyperlipidemia Performed By: #### B 12, BRAIN, CBC, FOL, TSH3, CMP, LIPID, A1C WTH eA #### [place] [address] [place] Lymphocytes/100 WBC (Bld) 35.4 % Normal . [facility] Comment on above: Order Comment: Reaso n for Exam Hyperlipidemia Performed By: #### B 12, BRAIN, CBC, FOL, TSH3, CMP, LIPID, A1C WTH eA #### [address] MCH (RBC) [Entitic mass] 30.0 pg Normal 24.7-34.3 [facility] Comment on above: Order Comment: Reaso n for Exam Hyperlipidemia Performed By: #### B 12, BRAIN, CBC, FOL, TSH3, CMP, LIPID, A1C WTH eA #### [facility] [address] MCV (RBC) [Entitic vol] 93.3 fL Normal 80-100 F [facility] Comment on above: Order Comment: Reaso n for Exam Hyperlipidemia Performed By: #### B 12, BRAIN, CBC, FOL, TSH3, CMP, LIPID, A1C WTH eA #### [facility] [address] Mean Corpuscular HGB Conc 32.2 g/dL Normal 32.0-35.0 [facility] Comment on above: Order Comment: Reaso n for Exam Hyperlipidemia Performed By: #### B 12, BRAIN, CBC, FOL, TSH3, CMP, LIPID, A1C WTH eA #### [address] Monocytes (Bld) [#/Vol] 0.4 10*3/uL Normal 0.0-0.8 [facility] Comment on above: Order Comment: Reaso n for Exam Hyperlipidemia Performed By: #### B 12, BRAIN, CBC, FOL, TSH3, CMP, LIPID, A1C WTH eA #### [facility] [address] [place] [address] Monocytes/100 WBC (Bld) 6.9 % Normal . F [facility] Comment on above: Order Comment: Reaso n for Exam Hyperlipidemia Performed By: #### B 12, BRAIN, CBC, FOL, TSH3, CMP, LIPID, A1C WTH eA #### [place] [address] [place] Neutrophils (Bld) [#/Vol] 3.6 10*3/uL Normal 1.8-7.7 [facility] Comment on above: Order Comment: Reaso n for Exam Hyperlipidemia Performed By: #### B 12, BRAIN, CBC, FOL, TSH3, CMP, LIPID, A1C WTH eA #### [facility] [address] [place] [address] Neutrophils/100 WBC (Bld) 55.3 % Normal . [facility] Comment on above: Order Comment: Reaso n for Exam Hyperlipidemia Performed By: #### B 12, BRAIN, CBC, FOL, TSH3, CMP, LIPID, A1C WTH eA #### [facility] [address] NRBC% 0.2 /100{WBC} Normal 0-0.5 [facility] Comment on above: Order Comment: Reaso n for Exam Hyperlipidemia Performed By: #### B 12, BRAIN, CBC, FOL, TSH3, CMP, LIPID, A1C WTH eA #### [address] Platelet mean volume (Bld) [Entitic vol] 8.3 fL Normal 6.3-10.7 [facility] Comment on above: Order Comment: Reaso n for Exam Hyperlipidemia Performed By: #### B 12, BRAIN, CBC, FOL, TSH3, CMP, LIPID, A1C WTH eA #### [address] Platelets (Bld) [#/Vol] 219 10*3/uL Normal 150-450 [facility] Comment on above: Order Comment: Reaso n for Exam Hyperlipidemia Performed By: #### B 12, BRAIN, CBC, FOL, TSH3, CMP, LIPID, A1C WTH eA #### [address] RBC (Bld) [#/Vol] 4.20 10*6/uL Normal 3.60-5.00 [facility] Comment on above: Order Comment: Reaso n for Exam Hyperlipidemia Performed By: #### B 12, BRAIN, CBC, FOL, TSH3, CMP, LIPID, A1C WTH eA #### [address] WBC (Bld) [#/Vol] 6.5 10*3/uL Normal 3.8-11.6 [facility] Comment on above: Order Comment: Reaso n for Exam Hyperlipidemia Performed By: #### B 12, BRAIN, CBC, FOL, TSH3, CMP, LIPID, A1C WTH eA #### [facility] [address] Comprehensive Metabolic Pane mal 05-26-2022 Albumin [Mass/Vol] 3.7 g/dL Normal 3.5-5.7 [facility] Comment on above: Order Comment: Reaso n for Exam Hyperlipidemia Reason for Exam S/P bariatric surgery Performed By: #### B 12, BRAIN, CBC, FOL, TSH3, CMP, LIPID, A1C WTH eA #### [facility] [address] Albumin/Globulin [Mass ratio] 1.1 {ratio} Normal [facility] Comment on above: Order Comment: Reaso n for Exam Hyperlipidemia Reason for Exam S/P bariatric surgery Performed By: #### B 12, BRAIN, CBC, FOL, TSH3, CMP, LIPID, A1C WTH eA #### [facility] [address] ALP [Catalytic activity/Vol] 44 U/L Normal 34-104 [facility] Comment on above: Order Comment: Reaso n for Exam Hyperlipidemia Reason for Exam S/P bariatric surgery Performed By: #### B 12, BRAIN, CBC, FOL, TSH3, CMP, LIPID, A1C WTH eA #### [facility] [address] ALT [Catalytic activity/Vol] 12 U/L Normal 7-52 [facility] Comment on above: Order Comment: Reaso n for Exam Hyperlipidemia Reason for Exam S/P bariatric surgery Performed By: #### B 12, BRAIN, CBC, FOL, TSH3, CMP, LIPID, A1C WTH eA #### [facility] [address] Anion gap [Moles/Vol] 10.6 mmol/L Normal 6.0-15.0 [facility] Comment on above: Order Comment: Reaso n for Exam Hyperlipidemia Reason for Exam S/P bariatric surgery Performed By: #### B 12, BRAIN, CBC, FOL, TSH3, CMP, LIPID, A1C WTH eA #### [facility] [address] AST [Catalytic activity/Vol] 13 U/L Normal 13-39 [facility] Comment on above: Order Comment: Reaso n for Exam Hyperlipidemia Reason for Exam S/P bariatric surgery Performed By: #### B 12, BRAIN, CBC, FOL, TSH3, CMP, LIPID, A1C WTH eA #### [facility] [address] [place] [id number] [facility] Bilirubin [Mass/Vol] 0.5 mg/dL Normal 0.3-1.0 [facility] Comment on above: Order Comment: Reaso n for Exam Hyperlipidemia Reason for Exam S/P bariatric surgery Performed By: #### B 12, BRAIN, CBC, FOL, TSH3, CMP, LIPID, A1C WT eA #### [facility] [address] Calcium [Mass/Vol] 8.7 mg/dL Normal 8.6-10.3 [facility] Comment on above: Order Comment: Reaso n for Exam Hyperlipidemia Reason for Exam S/P bariatric surgery Performed By: #### B 12, BRAIN, CBC, FOL, TSH3, CMP, LIPID, A1C WTH eA #### [facility] [address] [place] [address] [place] Chloride [Moles/Vol] 107 mmol/L Normal 98-107 [facility] Comment on above: Order Comment: Reaso n for Exam Hyperlipidemia Reason for Exam S/P bariatric surgery Performed By: #### B 12, BRAIN, CBC, FOL, TSH3, CMP, LIPID, A1C WTH eA #### [facility] [address] [place] [id number] [place] CO2 [Moles/Vol] 28.3 mmol/L Normal 21.0-31.0 [facility] Comment on above: Order Comment: Reaso n for Exam Hyperlipidemia Reason for Exam S/P bariatric surgery Performed By: #### B 12, BRAIN, CBC, FOL, TSH3, CMP, LIPID, A1C WTH eA #### [facility] [address] [place] [id number] [facility] Creatinine [Mass/Vol] 0.96 mg/dL Normal 0.60-1.20 [facility] Comment on above: Order Comment: Reaso n for Exam Hyperlipidemia Reason for Exam S/P bariatric surgery Performed By: #### B 12, BRAIN, CBC, FOL, TSH3, CMP, LIPID, A1C WTH eA #### [facility] [address] [place] [address] [place] GFR/1.73 sq M.predicted MDRD (S/P/Bld) [Vol rate/Area] mL/min/{1.73_m2} [facility] Comment on above: Order Comment: Reaso n for Exam Hyperlipidemia Reason for Exam S/P bariatric surgery Performed By: #### B 12, BRAIN, CBC, FOL, TSH3, CMP, LIPID, A1C WTH eA #### [facility] [address] [place] [id number] [facility] Globulin (S) [Mass/Vol] 3.4 g/dL Normal [facility] Comment on above: Order Comment: Reaso n for Exam Hyperlipidemia Reason for Exam S/P bariatric surgery Performed By: #### B 12, BRAIN, CBC, FOL, TSH3, CMP, LIPID, A1C WTH eA #### [facility] [address] Glucose [Mass/Vol] 82 mg/dL Normal 70-100 [facility] Comment on above: Order Comment: Reaso n for Exam Hyperlipidemia Reason for Exam S/P bariatric surgery Result Comment: [facility] Glucose Reference Range is dependent on time and content of last meal. Glucose of more than 200 mg/dL in a nonstressed, ambulatory subject supports the diagnosis of Diabetes Mellitus. ADA recommended reference range Performed By: #### B 12, BRAIN, CBC, FOL, TSH3, CMP, LIPID, A1C WTH eA #### [facility] [address] [place] [id number] [facility] Potassium [Moles/Vol] 3.9 mmol/L Normal 3.5-5.1 [facility] Comment on above: Order Comment: Reaso n for Exam Hyperlipidemia Reason for Exam S/P bariatric surgery Performed By: #### B 12, BRAIN, CBC, FOL, TSH3, CMP, LIPID, A1C WTH eA #### [facility] [address] [place] [id number] [place] Protein [Mass/Vol] 7.1 g/dL Normal 6.4-8.9 [facility] Comment on above: Order Comment: Reaso n for Exam Hyperlipidemia Reason for Exam S/P bariatric surgery Performed By: #### B 12, BRAIN, CBC, FOL, TSH3, CMP, LIPID, A1C WTH eA #### [facility] [address] Sodium [Moles/Vol] 142 mmol/L Normal 136-145 [facility] Comment on above: Order Comment: Reaso n for Exam Hyperlipidemia Reason for Exam S/P bariatric surgery Performed By: #### B 12, BRAIN, CBC, FOL, TSH3, CMP, LIPID, A1C WT eA #### [facility] [address] Urea nitrogen [Mass/Vol] 24 mg/dL Normal 7-25 [facility] Comment on above: Order Comment: Reaso n for Exam Hyperlipidemia Reason for Exam S/P bariatric surgery Performed By: #### B 12, BRAIN, CBC, FOL, TSH3, CMP, LIPID, A1C WTH eA #### [facility] [address] [place], [place] [id number] [facility] Ferritinon 05-26-2022 Ferritin [Mass/Vol] 28.0 ng/mL Normal 11.0-306.8 [facility] Comment on above: Order Comment: Reaso n for Exam Hyperlipidemia Reason for Exam S/P bariatric surgery Performed By: #### B 12, BRAIN, CBC, FOL, TSH3, CMP, LIPID, A1C WTH eA #### [facility] [address] [place] [id number] [facility] Folateon 05-26-2022 Folate 37.0 ng/mL Normal >5.9 [facility] Comment on above: Order Comment: Reaso n for Exam Hyperlipidemia Reason for Exam S/P bariatric surgery Result Comment: Linda te reference range: >5.9 ng/ml The WHO technical consultation on folate and vitamin b12 deficiencies has determined that folate concentrations less than 4 ng/ml are considered deficient. Performed By: #### B 12, BRAIN, CBC, FOL, TSH3, CMP, LIPID, A1C WTH eA #### [facility] [address] [place] [address] [place] Lipid Panelon 05-26-2022 Cholesterol [Mass/Vol] 192 mg/dL Normal 140-200 [facility] Comment on above: Order Comment: Reaso n for Exam Hyperlipidemia Reason for Exam S/P bariatric surgery Result Comment: Chol less than 200 mg/dl low risk Chol 201-239 mg/dl borderline risk Chol 240 mg/dl and greater high risk Performed By: #### B 12, BRAIN, CBC, FOL, TSH3, CMP, LIPID, A1C WTH eA #### [facility] [address] [place] [address] [place] Cholesterol in HDL [Mass/Vol] 51 mg/dL Normal 35-85 [facility] Comment on above: Order Comment: Reaso n for Exam Hyperlipidemia Reason for Exam S/P bariatric surgery Result Comment: HDL CHOL ATP-III CLASSIFICATION Cardiovascular Risk HDL > or equal to 60 mg/dL LOW HDL < 40 mg/dL HIGH Performed By: #### B 12, BRAIN, CBC, FOL, TSH3, CMP, LIPID, A1C WTH eA #### [facility] [address] [place] [id number] [place] Cholesterol.total/Roseanna sterol in HDL [Mass ratio] 3.8 {ratio} Normal <5.0 [facility] Comment on above: Order Comment: Reaso n for Exam Hyperlipidemia Reason for Exam S/P bariatric surgery Performed By: #### B 12, BRAIN, CBC, FOL, TSH3, CMP, LIPID, A1C WTH eA #### [facility] [address] [place] [address] [place] LDL Cholesterol,Calculated 108 mg/dL High 0-100 [facility] Comment on above: Order Comment: Reaso n for Exam Hyperlipidemia Reason for Exam S/P bariatric surgery Result Comment: LDL ATP III CLASSIFICATION LDL less than 100 mg/dL Optimal LDL 100-129 mg/dL Near or above optimal LDL 130-159 mg/dL Borderline high LDL 160-189 mg/dL High LDL greater than 189 mg/dL Very high Performed By: #### B 12, BRAIN, CBC, FOL, TSH3, CMP, LIPID, A1C WTH eA #### [facility] [address] [place] [address] [place] Triglyceride w/Reflex 166 mg/dL High 0-149 [facility] Comment on above: Order Comment: Reaso n for Exam Hyperlipidemia Reason for Exam S/P bariatric surgery Result Comment: TRIG ATP III CLASSIFICATION TRIG less than 150 mg/dL Normal TRIG 150-199 mg/dL Borderline high TRIG 200-500 mg/dL High TRIG greater than 500 mg/dL Very high Standard traceable to the Center for Disease Conrtrol and Prevention (CDC) test method. Performed By: #### B 12, BRAIN, CBC, FOL, TSH3, CMP, LIPID, A1C WTH eA #### [address] VLDL CHOLESTEROL 33 mg/dL Normal [facility] Comment on above: Order Comment: Reaso n for Exam Hyperlipidemia Reason for Exam S/P bariatric surgery Performed By: #### B 12, BRAIN, CBC, FOL, TSH3, CMP, LIPID, A1C WTH eA #### [address] Thyroid Stimulating Hormoneo n 05-26-2022 TSH Qn 1.91 m[IU]/L Normal 0.45-5.33 [facility] Comment on above: Order Comment: Reaso n for Exam Hyperlipidemia Reason for Exam S/P bariatric surgery Result Comment: PERF ORMED BY: [place] [address] PATHOLOGIST HEALTH PROFESSIONAL DINO ANDREWS M.D. Performed By: #### B 12, BRAIN, CBC, FOL, TSH3, CMP, LIPID, A1C WTH eA #### [address] Vitamin B12on 05-26-2022 Cobalamin (Vitamin B12) [Mass/Vol] 330 pg/mL Normal 180-914 [facility] Comment on above: Order Comment: Reaso n for Exam Hyperlipidemia Reason for Exam S/P bariatric surgery Performed By: #### B 12, BRAIN, CBC, FOL, TSH3, CMP, LIPID, A1C WTH eA #### [address] MRI CERVICAL SPINE WO CONTRA STon 05-19-2022 MRI CERVICAL SPINE WO CONTRAST EXAMINATION: MRI OF THE CERVICAL SPINE WITHOUT CONTRAST 05/18/2022 2:55 pm TECHNIQUE: Multiplanar multisequence MRI of the cervical spine was performed without the administration of intravenous contrast. COMPARISON: 07/14/2018. HISTORY: ORDERING SYSTEM PROVIDED HISTORY: Cervical myelopathy (HCC) FINDINGS: Suboptimal evaluation secondary to image degradation, likely related to body habitus. BONES/ALIGNMENT: Anterior cervical discectomy and fusion of C4-C5, new since 07/14/2018. No significant spondylolisthesis. Vertebral body heights appear preserved. Marrow signal appears within normal limits. No evidence of acute fracture or aggressive appearing osseous lesions. SPINAL CORD: Chronic myelomalacia centered at the C4-C5 level. Otherwise, no abnormal cord signal. SOFT TISSUES: No paraspinal mass identified. C2-C3: No significant spinal canal stenosis or foraminal narrowing. C3-C4: Disc osteophyte complex. Moderate spinal canal stenosis. Suspected mild bilateral foraminal narrowing. C4-C5: Status post fusion. Osteophytosis. Mild spinal canal stenosis. Suspected mild/moderate bilateral foraminal narrowing. C5-C6: Disc osteophyte complex. Ligamentum flavum thickening. Severe spinal canal stenosis. Suspected severe bilateral foraminal narrowing. C6-C7: Disc osteophyte complex. Ligamentum flavum thickening. Mild/moderate spinal canal stenosis. Suspected mild left foraminal narrowing. C7-T1: Disc bulge. Ligamentum flavum thickening. Mild spinal canal stenosis. No significant foraminal narrowing. IMPRESSION: 1. Anterior cervical discectomy and fusion of C4-C5. 2. Multilevel cervical spondylosis, most notable at C5-C6 (severe spinal canal stenosis, suspected severe bilateral foraminal narrowing). 3. Chronic C4-C5 myelomalacia. Interpreted by: Ramsey Trammell MD Signed by: Ramsey Trammell MD 05/19/22 Final result Normal [facility] 1. Anterior cervical discectomy and fusion of C4-C5. 2. Multilevel cervical spondylosis, most notable at C5-C6 (severe spinal canal stenosis, suspected severe bilateral foraminal narrowing). 3. Chronic C4-C5 myelomalacia. [facility] RIS CONSOLIDATED EXAMINATION: MRI OF THE CERVICAL SPINE WITHOUT CONTRAST 05/18/2022 2:55 pm TECHNIQUE: Multiplanar multisequence MRI of the cervical spine was performed without the administration of intravenous contrast. COMPARISON: 07/14/2018. HISTORY: ORDERING SYSTEM PROVIDED HISTORY: Cervical myelopathy (HCC) FINDINGS: Suboptimal evaluation secondary to image degradation, likely related to body habitus. BONES/ALIGNMENT: Anterior cervical discectomy and fusion of C4-C5, new since 07/14/2018. No significant spondylolisthesis. Vertebral body heights appear preserved. Marrow signal appears within normal limits. No evidence of acute fracture or aggressive appearing osseous lesions. SPINAL CORD: Chronic myelomalacia centered at the C4-C5 level. Otherwise, no abnormal cord signal. SOFT TISSUES: No paraspinal mass identified. C2-C3: No significant spinal canal stenosis or foraminal narrowing. C3-C4: Disc osteophyte complex. Moderate spinal canal stenosis. Suspected mild bilateral foraminal narrowing. C4-C5: Status post fusion. Osteophytosis. Mild spinal canal stenosis. Suspected mild/moderate bilateral foraminal narrowing. C5-C6: Disc osteophyte complex. Ligamentum flavum thickening. Severe spinal canal stenosis. Suspected severe bilateral foraminal narrowing. C6-C7: Disc osteophyte complex. Ligamentum flavum thickening. Mild/moderate spinal canal stenosis. Suspected mild left foraminal narrowing. C7-T1: Disc bulge. Ligamentum flavum thickening. Mild spinal canal stenosis. No significant foraminal narrowing. [facility] RIS CONSOL[facility] Ramsey Trammell MD - 05/19/2022 EXAMINATION: MRI OF THE CERVICAL SPINE WITHOUT CONTRAST 05/18/2022 2:55 pm TECHNIQUE: Multiplanar multisequence MRI of the cervical spine was performed without the administration of intravenous contrast. COMPARISON: 07/14/2018. HISTORY: ORDERING SYSTEM PROVIDED HISTORY: Cervical myelopathy (HCC) FINDINGS: Suboptimal evaluation secondary to image degradation, likely related to body habitus. BONES/ALIGNMENT: Anterior cervical discectomy and fusion of C4-C5, new since 07/14/2018. No significant spondylolisthesis. Vertebral body heights appear preserved. Marrow signal appears within normal limits. No evidence of acute fracture or aggressive appearing osseous lesions. SPINAL CORD: Chronic myelomalacia centered at the C4-C5 level. Otherwise, no abnormal cord signal. SOFT TISSUES: No paraspinal mass identified. C2-C3: No significant spinal canal stenosis or foraminal narrowing. C3-C4: Disc osteophyte complex. Moderate spinal canal stenosis. Suspected mild bilateral foraminal narrowing. C4-C5: Status post fusion. Osteophytosis. Mild spinal canal stenosis. Suspected mild/moderate bilateral foraminal narrowing. C5-C6: Disc osteophyte complex. Ligamentum flavum thickening. Severe spinal canal stenosis. Suspected severe bilateral foraminal narrowing. C6-C7: Disc osteophyte complex. Ligamentum flavum thickening. Mild/moderate spinal canal stenosis. Suspected mild left foraminal narrowing. C7-T1: Disc bulge. Ligamentum flavum thickening. Mild spinal canal stenosis. No significant foraminal narrowing. IMPRESSION: 1. Anterior cervical discectomy and fusion of C4-C5. 2. Multilevel cervical spondylosis, most notable at C5-C6 (severe spinal canal stenosis, suspected severe bilateral foraminal narrowing). 3. Chronic C4-C5 myelomalacia. [employer] Phone: MRI CERVICAL SPINE WO CONTRA STOrdered By: Ramsey Trammell on 05-19-2022 [employer] Phone: MRI CERVICAL SPINE WO CONTRA STon 05-18-2022 Radiology Study observation (narrative) [employer] Phone: Telephoneon 04-08-2022 Telephone [phone] Carrie Fletcher 1970 F Date Provider Department Center 04/08/2022 ILSA MÁRQUEZ [facility] Medical Pavi No family history on file Normal [facility] Clinical Supporton Clinical Support [id number] Carrie Fletcher 1970 F Date Provider Department Center 03/06/2022 ILSA MÁRQUEZ [facility] Medical Pavi No family history on file Normal [facility] Coding Summary.on 03-02-2022 Coding Summary. [id number] G h0bWw+PGhlYWQ+TF6ZZSG bP41pjJQchP5RE0uVUI5G FTIQZJUJWR8VPT5cbYM4R GkkX1IhixUm ZpsfkKNnQR32BEa5XMZ2j ValPXbtvH4ieTSeL4f2Uh JrXN47eS82QEqkIGPkDrN 3LjZpbjsgbWFy H9mwBeYnbFMhSvy+PHRhY mxlIHdpZHRoPScxMDAlJy WwqBplFD6cVc0iGUFbFXF vbGxhcHNlOiBj c6gaRVTtYCqyUR0hfZwhB 4XqpCN5VDGjz4l8Za77oX I+IPFaDYB5bPcbXFyib26 7NfMir6qbKYD4 wVCzTXidHMH2D82zi2O3W FBnGUPpJTL8hQO1gF9edM ejdfnoV1EniSZgGaB7ZIE 2yYMcaQ4zbEtw noiumI2sYvn+Z65TJA9RA FDREL1XEcz8W8OwHynozT I+XZ21LBVpCP08tJPucBR ql2lkyAo0HbDw EYHuEDX0tZxnTYgxd6WmA IClN04hdDXek2V8TWVjlX qkoZXoImKhdIX9yI9sRHg zneuzo9vhrhia Dzggv5arcf48nR75V83aS KmbYZMvVHK2BPKpADDsyU hhlr8tyY6aMg7+UFiet7m sv2pgbCo9DuNn CJMdbpAboAkdDDP2q4JtT f26M7MqyVltx1QqUrc6uj 10xPKjj1G8kBG3EOhuFZX xoD8zLBclCgE4 WDYkWnHnxG70vYWePWmjJ p9uwMnvfVitPG3fEIUtgm jeQESxeV5xEHBpcKWtkRz uBM2wPEXkcxkv o652TbDkBNW4WUAfeTErU 6BnoW9oUwHfJYFoXXTiD6 MfqPMsVAkzO570KPqpAvU 0BTUubkXvZ6Kh LQKneAbgHpE6v7C9Pi3Ob 8UfuacvXXJ9PMwwSSNoMe OwQpIvUdN0G6ZuNat1VUX cpJscAV8jT1Em BBFuzwtiofifdUA4FTIzK MVnkA56jNOvOYvaDj0dp2 A1f356OCMhPTLbjA57Wj8 udDogMTBwdCBU bT3mcjskd5fzywsaQqFiR OCdLNm2JJd4AUIegVvaDm RiDPG0WyJ4ERQ0zNGeiA7 qiUituikitE3d Oyc+V71rnC5lOWN2KHA4a fvoLDImrnMoBI10UF01Q3 RyPjwvdGFibGU+PGRpdiB xeDdhLW8oGeYq s7qqi0IxAKdkW2TuCDGlQ JfbKeg8AKHhUKU4yBX7tI 1tFHHzENtuz4N5fRW0N3U hsfWiiw8sl2cj MBLqGTovR83vfDJwi1E0O TUgbFI5ROBemZggCtGdqU 93Oyc+RDBsxGqyi3XsSpg nx6wnj8fpvPp3 HkYtVVQtbjBqjAuiZCU3t 5HuOi40Z70pILtnWFNgWB XxFEHvKDDleNfwza1kwJ2 wIi8+PGNvbCB3 wJO0yZ6oGJPzUaT3GGdvQ 821JyLszXJfMnlvt9bzf2 lhxJq2NzLtEVMqoxRpsSk jJBU4g3ZoLc66 S99yUFrkDUTxJVSjXSNjT SLujNccxw1rqS7jVn5+PC 3yb3srwh04oA95hDH+PHR kIQR5cQgvDXrd TZNevG5rFYhzEjF2EZYwX bZfjP81nUZuRCbmLq7tsM hpnFksFN5iFHKdhegtb24 4UkOzf2ubCOGp oREeFHqtZHX7C91yw3W8K AWwXHUwQIO7pLI7uQ2wlT lnbjogbGVmdDsgdmVydGl kQHzzUKnmX379 IHRvcDsnPlBhdGllbnQgT iUiXQa9C0ZoTif9ILDvgP rnEI8meBTrPDndDi2kcFq uyJloVA0gWVWy oppkl669UfNhf0iwSWCce TZbCAueHQH6F51mr5I7NF ExZJDhGSR8gEX1wA2bqQi nbjogbGVmdDsg ttLifLgrGXrnRYmmJ067B HRvcDsnPkJpcnRoIERhdG G0NI24MF68gBPik9S6wFY 6X6FhELShrnam vnboaOQ4TNViUMCebT55P z0xyRfdLk0iIQMhWBF8CW DpvDVgU7HabZ2gPhZdWKD sXZXqN3XhiSUd IXavP255ZGohBaX4SRNlu kImR4CjMWAgyFniBcW2b8 H6Cs0GU7A5IL00SL96eXZ dx6Q9vEC3R3Qt VHByurscucrwaWC5HMIxG NMswV59Ms6gxJvnEb3dDH VzESN6YAWuwBNcJ4RihZ8 yOiAjMDAwMDAw W4LufAQdSNnvJ422VYjnT fO2MIGrwoQlH4NrYHWmoA cjQwI5o6P3Jk4DTMc4NJ3 6BH71tSGer0F1 vIG2K9CpMCYmdpooalone WA2VYEhFFAmuY28Xl9zyE thRx0bDOXwGDB0SDHzxNN oW0KehW7oXzHi XDVzDWOaR8PdiAIwRFpiX 266CYjgXjE8KMCtguPkL3 QcGNLgiQegImK9x7X3Zy7 KBCCfLN92DNL4 qZF9EF30ZQ04F6QfLtjwr GFibGU+PHRhYmxlIHdpZH RoPScxMDAlJyBzdHlsZT0 eLn6wGOClKAGe rEdepNQxKyNao9yoNOOdU YavJE8rrUtmW5LgsAP3BT Taw3q9Lm96V77wU9NlwWV +RVYvrZV8gKP5 hH7sQnZaVlX2OOrdS557A yFueQRpZtxfj2zzy0kxiT m2LtL2NOGijtSdpSigOVS 1x2BqLz94J90i IHdpZHRoPSIxNSUiIHZhb Xudyw8qvU5uRt3+PGNvbC H8cCR9pE9gNyNhQzD7SYj xJ889DlVbbYNn Ohcer0mdr9kzpKk1SjKpN FTvjwNneTanFNE8p6KoIx 81G2QwrFmwa0GoUes8lo5 4qWLda7V0jIN0 X5TxHNBawghcwCTckDesI P8tTRKgrwcrIOTthN2zEM AgH4j3FvPyEtW2DJibV6Y nouJ3SCLdmSSj [id number] TLgXTW8gSP4sZ6qiNczzy ogbGVmdDsgdmVydGljYWw gWPqtI091JRKf uTygVMTswH3oIARwqHZbk PdwIE4yDEPwyvpgYqAZQM osIERFTkEgTTwvdGQ+PHR cDND2fFbzHXxg NSTbjR6aGJUxW1b3LcXyT jS0IHzkX4YhDXMwqwewDr 81qS5jYlKgFeI2OEqgI8T pgrW1RBHyaPCv ILrbKTL0S50im5D2ADPrS DArDEO8yQE7lK9mlTdxpy ogbGVmdDsgdmVydGljYWw nQNnpC702JCVo gXgqEdE2YcH0JxR4DvQ6H 0HfMiv3QUFjwMjxXU9byB GkJFgrSq4gmPdftZuoRM9 wNTBpbjtwYWRk zX7cGSCbhOBxwDybNN1wD PQzfiveo366UoHbMXT6JS YjuLNfX1SnsV2gBjNtARA eHNOtS1HzkAVb AJrcB939MWgmOuN2BJAqc cZrL9XbNOVmhCekYwS7r1 W2Tj45XaACGVUrnhkfqXH +IOTnYMU8wAqq UYuqIFMlpN3tLYEpU3z5R jQxNgH6SDtiB6ShFXPtfu zmSs88hQ3iWjXfKjJ1SNf hS6OxceD8CXFt gNFoUCufLCF1N79cv1M0Z AOpGCXsZCT6jWL8oO6akQ lnbjogbGVmdDsgdmVydGl fHPmfGJgwU220 IHRvcDsnPkZlbWFsZTwvd GQ+SZKtVSC1nYquPMhuGP HpnB6gOUDaE3m5CvPlUpZ 9AJsyN6LeNWLt kyccAe66bL5nTiQkOjT4H UveU4YsjrL0VDKnwNYeUD mjTZC3D80wy7U9JYTnNTU eELC4yRQ1zE4r bGlnbjogbGVmdDsgdmVyd AawZEafRJcaQ250XXAiaW rwRgqyTvOGyh1yVT3hZzs vdGQ+BG04om75 L2SyFeagQyh2IYCcPXK8k ND6lI0wWFUfNMvgd9M4pY K0K9EvolBeud2ai6qvVWA oDPieI74foKVx h0G2LOQqnVQ9AKKozUiwC eTiyF73Ulf+PGNvbGdyb3 FeJnoni9xjt9omgQc1NyY wJSIgdmFsaWdu UUS3e1MrUn26K33xMVvzS HRoPSIzMCUiIHZhbGlnbj 0wlC4rKx4+HXSwlAJ5kEP 8fE2qIrQjEmG6 RUqkD605LqQhoZSoGtesd 9iul6jxkEd9HsAyIRJuxl XtoHduORT7b7EoQk94Z3A vgIaad5McJnp6 fi43tYWhn4M5sKI1Q8GoS EQroyveiPHzjMgxXA9rGX AwccvzONXseW0uURFoX1j 4SsJbEcI9UTom K3BdweV7FFMfcDOnIPGdi TCZsB0lpoiee9medqxaOa EnGIVoPTw3GMc7LUYlgXc sFpHpKBT5XlS7 AYX8rYHdjB3knYjrfyoqh G9wOyc+PGh2n1zyhXByAM 9qsGK1QJ10UP28jLCrh3H 1tEU3X5EbQULw agwctmsrhGG8EPSaVCCyk B81Ia2kzPpuOr6tCCAmGM W3DJQaeSDvB5YtpZ4pRpF wTGMgQTSyJ9Ku eUBrIFwiJ611SRvjSpQ1Z VBxqwZtB6KgSQQwxZcbFd F9i3J6Jj6NJW10GE03YV5 4wFFia1N5fZC0 F3EwUXPyuiecmjtteCA4T HFqKKQkuO28Xo8woQpcKe 5mONGyDKO9BAZddQYkI9B rxV8uJrRzVMCp KPJjL1UzvFJqMHdcB889O IqbKdA4MAGeurTbK3RtCX UvuLetQeT8w2D5Wg1UMs8 9MM88VH67cYMp z1Z5tIP8W1SqNDWndsksc hovqVX8KMVlBZGckW11Fa 2apObuOn0vVDCtFXF5TGF gdBOnV4VkbM0m QmEbLLAnWBHlA8YgvVMaI BymE574KNdzVuG9XAIpaw ZnS6TjVAKtkZdtVzC1m4Y 9Ut1NVEjqwql9 X0GwVwefbSR+TF69BPAkX T07sLRirFYky1auaDe6Zd NfULOuINN5aKktFXyck6L jCGQmW52ohXYd c2U6 (more content not included)... Normal [facility] Lab Reportson 02-27-2022 Lab Reports [id number] .00CD:127 Normal [facility] C Urineon 02-26-2022 Bacteria identified Cx Nom (U) Microbiology PROCEDURE: Urine Culture [R1] SOURCE: U Random BODY SITE: COLLECTED DATE/TIME: 02/24/2022 13:42 EST RECEIVED DATE/TIME: 02/24/2022 18:50 EST START DATE/TIME: 02/24/2022 18:50 EST FREE TEXT SOURCE: YECENIA FOLEY, Nicole KEENE MD, Nicole Garcia FINAL REPORTS Final Report [] Verified Date/Time: 02/26/2022 10:54 EST >100,000 cfu/ml Escherichia coli SUSCEPTIBILITY RESULTS LEGEND: S=Susceptible, N/R=Not Reported, Blank=Data not available, or drug not advisable or tested, I=Intermediate, ESBL=Extended spectrum beta-lactamase, R=Resistant, TFG=Thymidine-depende nt strain, LUISA=Beta-lactamase positive, JAVIER=mcg/m;(mg/L), S*=Predicted susceptible interp, R*=Predicted resistant interp EC Antibiotic JAVIER Dilutn JAVIER Interp Amikacin <=16 S Ampicillin >16 R Ampicillin/ >16/8 R Sulbactam Aztreonam <=4 S Cefazolin >16 R Cefepime <=2 S Cefoxitin 16 I Ceftazidime <=1 S Ceftazidime/ <=8 S Avibactam Ceftriaxone <=1 S Ciprofloxacin >2 R Ertapenem <=0.5 S Gentamicin >8 R Levofloxacin >4 R Meropenem <=1 S Nitrofurantoin >64 R Piperacillin/ 64 I Tazobactam Tetracycline >8 R Tigecycline <=2 S Tobramycin >8 R Trimethoprim/ >2/38 R Sulfa Performing Locations R1: This test was performed at: [facility], [address] [place] [address], [id number] , [place], Normal [facility] Comment on above: Performed By: #### [id number] ####[facility] [address] [place] [address] Ambulatory Visit Summaryon 0 02-24-2022 Ambulatory Visit Summary LUIS CARRIE oRwan :1970 Visit Date:02/24/2022 Ambulatory Visit Instructions Your Diagnosis Recurrent UTI Incontinence without sensory awareness Asymptomatic microscopic hematuria Postinfective urethral stricture in female Anticoagulated Tests Performed Urnls Dip Stick Auto w/o Microscopy POC 41889 Your Care Team Attending Physician - Nicole KEENE MD Primary Care Physician - LON IBRAHIM DO This Is Your Medications List solifenacin (Vesicare 5 mg Tab) Contact prescribing physician if questions or concerns acetaminophen apixaban (Eliquis 5 mg oral tablet) biotin bisacodyl calcium carbonate cholecalciferol (Vitamin D 1000 intl units Tab) ciprofloxacin (Cipro 500 mg Tab) cranberry (Cranberry) docusate (docusate sodium) gabapentin gabapentin (gabapentin 400 mg Cap) metoprolol (metoprolol 25 mg ER Tab) multivitamin (B Complex 100) multivitamin (Multi Vitamin+) omega-3 polyunsaturated fatty acids (Defiance-3) Procedures Performed Urodynamics (12/10/2021), Cystourethroscopy and dilation of bladder (07/21/2021), TURBT - Transurethral resection of bladder tumor (03/11/2019), 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 Discharge Vitals Height 187 cm Height 74 in Weight 110 kg Weight 242 lb BMI 31.46 What to do next Scheduled Follow-Up Appointments Wednesday 9:15 AM EDT With: Nicole KEENE MD Where: [facility] [place] Normal [facility] Patient Educationon 02-24-19 Patient Education Obstetrics and Gynecology Urinary Tract Infection, Adult A urinary tract infection (UTI) is an infection of any part of the urinary tract. The urinary tract includes the kidneys, ureters, bladder, and urethra. These organs make, store, and get rid of urine in the body. Your health care provider may use other names to describe the infection. An upper UTI affects the ureters and kidneys (pyelonephritis). A lower UTI affects the bladder (cystitis) and urethra (urethritis). What are the causes? Most urinary tract infections are caused by bacteria in your genital area, around the entrance to your urinary tract (urethra). These bacteria grow and cause inflammation of your urinary tract. What increases the risk? You are more likely to develop this condition if: ? You have a urinary catheter that stays in place (indwelling). ? You are not able to control when you urinate or have a bowel movement (you have incontinence). ? You are female and you: ? Use a spermicide or diaphragm for control. ? Have low estrogen levels. ? Are . ? You have certain genes that increase your risk (genetics). ? You are sexually active. ? You take antibiotic medicines. ? You have a condition that causes your flow of urine to slow down, such as: ? An enlarged prostate, if you are male. ? Blockage in your urethra (stricture). ? A kidney stone. ? A nerve condition that affects your bladder control (neurogenic bladder). ? Not getting enough to drink, or not urinating often. ? You have certain medical conditions, such as: ? Diabetes. ? A weak disease-fighting system (immunesystem). ? Sickle cell disease. ? Gout. ? Spinal cord injury. What are the signs or symptoms? Symptoms of this condition include: ? Needing to urinate right away (urgently). ? Frequent urination or passing small amounts of urine frequently. ? Pain or burning with urination. ? Blood in the urine. ? Urine that smells bad or unusual. ? Trouble urinating. ? Cloudy urine. ? Vaginal discharge, if you are female. ? Pain in the abdomen or the lower back. You may also have: ? Vomiting or a decreased appetite. ? Confusion. ? Irritability or tiredness. ? A fever. ? Diarrhea. The first symptom in older adults may be confusion. In some cases, they may not have any symptoms until the infection has worsened. How is this diagnosed? This condition is diagnosed based on your medical history and a physical exam. You may also have other tests, including: ? Urine tests. ? Blood tests. ? Tests for sexually transmitted infections (STIs). If you have had more than one UTI, a cystoscopy or imaging studies may be done to determine the cause of the infections. How is this treated? Treatment for this condition includes: ? Antibiotic medicine. ? Uzow-ymp-wlltjqs medicines to treat discomfort. ? Drinking enough water to stay hydrated. If you have frequent infections or have other conditions such as a kidney stone, you may need to see a health care provider who specializes in the urinary tract (urologist). In rare cases, urinary tract infections can cause sepsis. Sepsis is a life-threatening condition that occurs when the body responds to an infection. Sepsis is treated in the hospital with IV antibiotics, fluids, and other medicines. Follow these instructions at home: Medicines ? Take xzhh-hfp-wefmrem and prescription medicines only as told by your health care provider. ? If you were prescribed an antibiotic medicine, take it as told by your health care provider. Do not stop using the antibiotic even if you start to feel better. General instructions ? Make sure you: ? Empty your bladder often and completely. Do not hold urine for long periods of time. ? Empty your bladder after sex. ? Wipe from front to back after a bowel movement if you are female. Use each tissue one time when you wipe. ? Drink enough fluid to keep your urine pale yellow. ? Keep all follow-up visits as told by your health care provider. This is important. Contact a health care provider if: ? Your symptoms do not get better after 1?2 days. ? Your symptoms go away and then return. Get help right away if you have: ? Severe pain in your back or your lower abdomen. ? A fever. ? Nausea or vomiting. Summary ? A urinary tract infection (UTI) is an infection of any part of the urinary tract, which includes the kidneys, ureters, bladder, and urethra. ? Most urinary tract infections are caused by bacteria in your genital area, around the entrance to your urinary tract (urethra). ? Treatment for this condition often includes antibiotic medicines. ? If you were prescribed an antibiotic medicine, take it as told by your health care provider. Do not stop using the antibiotic even if you start to feel better. ? Keep all follow-up visits as told by your health care provider. This is important. This in (more content not included)... Normal [facility] Urology Office/Clinic Noteon 02-24-2022 Urology Office/Clinic Note Chief Complaint 2 month F/U HPI Staff This is a 51 year old female here for 2 month F/U to starting VESIcare. Previous DX: recurrent UTI, incontinence w/out sensory awareness, asymptomatic micro hematuria and postinfective urethral stricture. S/P Cysto/UD done 07/21/21. Pt. states she has only been on the VESIcare for a couple weeks Dysuria: no Incomplete bladder emptying: no Hematuria: UA shows large today Frequency: no Urgency: occasionally Nocturia: 1-2x's Pt. states last night she woke up wet. Stream: Pt. states the last 2 days the stream is slow, Pt. states normally stream is good Leaking: yes Post void dripping: _ Wearing pads/ Depends: yes Urge incontinence: yes Stress incontinence: yes Incontinence without Sensory Awareness: yes History of Present Illness Tests reviewed: reviewed UA. I have reviewed the previous health record information and history for this patient from Dr. Keene. I have reviewed and verified the staff HPI to be accurate for this encounter. There have been no associated fever, chills, flank pain, or blood in the urine. Denies any urinary infections since last encounter. Review of Systems ROS - Provider Constitutional: denies weight loss, denies hot flashes. Eyes: denies eye problems. Gastrointestinal: denies nausea, denies vomiting. Cardiovascular: denies chest pain or angina. Integumentary: no dryness Musculoskeletal: denies musculoskeletal symptoms. ENMT: denies otolaryngeal symptoms. Respiratory: no shortness of breath. Heme/Lymph: denies easy bleeding tendency, denies easy bruising tendency. Psychiatric: no confusion, no anxiety. Genitourinary: denies vaginal discharge, denies incontinence, denies dysuria, denies hematuria, denies urinary frequency, denies amenorrhea, denies menorrhagia, denies abnormal bleeding, denies pelvic pain, denies genital sores, and denies decreased libido. Physical Exam Vitals & Measurements HT: 74 in HT: 187 cm WT: 110 kg WT: 242 lb BMI: 31.46 General Appearance: alert , no acute distress, well nourished, well developed female. Genitourinary: bladder nonpalpable, no flank pain. Assessment/Plan 1. Recurrent UTI (N39.0: Urinary tract infection, site not specified) UA today shows LARGE blood, positive nitrates, and large AGUSTIN. Two documented cultures on 12/22/21 and 07/09/21. Encouraged adequate hydration. Will send today's sample for culture. 2. Incontinence without sensory awareness (N39.42: Incontinence without sensory awareness) UDS done 12/10/21, normal report. Patient also experiencing urge incontinence. Pt. was started on VESIcare 5mg BID last encounter. Pt. states she has not been on medication for a long time due to issues with insurance. Pt. states she has noticed an improvement with medication. Pt. to continue timed voids. Follow up in 3 months. All questions/concerns were discussed. Pt. to call the office if she encounters any issues prior. Pt. acknowledges understanding. 3. Asymptomatic microscopic hematuria (R31.21: Asymptomatic microscopic hematuria) SMALL per UA today. Denies gross hematuria. Pt. to call the office if she would experience gross hematuria. Negative Cysto in July. 4. Postinfective urethral stricture in female (N35.12: Postinfective urethral stricture, not elsewhere classified, female) S/p Cysto/UD done 07/21/21. patient understands that the stricture can return and dilation may need repeated. States her stream is better than what it Dr. Keene dictating this patient and only sporadically tried Vesicare she failed her to obtain but now she has it she has been on it regularly yet so I told her to take it in the morning and then evening. She said when she did take it. To help sort on the right track I checked her urine had some white cells and touch of blood but she is on blood thinner I thought the best thing to do which is culture make sure there is no infection because she has had those in the past otherwise she will go on her Vesicare 5 mg twice a day I will see her in 3 months Patient was. Follow-up With When Contact Information YECENIA FOLEY, Nicole Garcia, [address] [place] [address]- Additional Instructions: 3 mos Patient Education Urinary Tract Infection, Adult I, Peyton Bond, personally scribed for Dr. Keene on 02/24/2022 12:57:02. Documentation recorded by the [email or web address] meade, accurately reflects the services(s) I performed and decisions made by me. Authenticated by Dr. Keene on 02/24/2022 13:21:46.12:57:02. Problem List/Past Medical History Ongoing Anticoagulated Anxiety disorder Apnea, sleep Asymptomatic microscopic hematuria Bladder diverticulitis Bladder mass Cervical spine disease Chronic lower back pain Depression Detrusor and sphincter dyssynergia Diverticulosis GERD (gastroesophageal reflux disease) Gross hematuria Hydronephrosis of right kidney Incontinence without sensory aw (more content not included)... Normal [facility] Comment on above: Result Comment: Elec tronically Signed By: Nicole KEENE MD\.br\Date and Time Signed: 02/24/22 13:22 EST\.br\Electronically Co-Signed By: Peyton Bond\.br\Date and Time Co-Signed: 02/24/22 12:57 EST IntraOperative Documentson 1 03-30-2021 Intra[employer]ative Documents [id number]# 1.00CD:127 Normal [facility] [employer] Documents [id number]# 1.00CD:127 Normal [facility] Ambulatory Visit Summaryon 1 03-01-2021 Ambulatory Visit Summary 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1970 Visit Date:12/30/2021 Ambulatory Visit Instructions Your Diagnosis Recurrent UTI Incontinence without sensory awareness Asymptomatic microscopic hematuria Postinfective urethral stricture in female Anticoagulated Tests Performed Urnls Dip Stick Auto w/o Microscopy POC 98988 Your Care Team Attending Physician - Nicole KEENE MD Primary Care Physician - LON IBRAHIM DO This Is Your Medications List solifenacin (Vesicare 5 mg Tab) Contact prescribing physician if questions or concerns acetaminophen apixaban (Eliquis 5 mg oral tablet) biotin bisacodyl calcium carbonate cefdinir (cefdinir 300 mg Cap) cholecalciferol (Vitamin D 1000 intl units Tab) ciprofloxacin (Cipro 500 mg Tab) cranberry (Cranberry) docusate (docusate sodium) gabapentin gabapentin (gabapentin 400 mg Cap) metoprolol (metoprolol 25 mg ER Tab) multivitamin (B Complex 100) multivitamin (Multi Vitamin+) omega-3 polyunsaturated fatty acids (Defiance-3) Procedures Performed Urodynamics (12/10/2021), Cystourethroscopy and dilation of bladder (07/21/2021), TURBT - Transurethral resection of bladder tumor (03/11/2019), 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 Discharge Vitals Height 187 cm Height 74 in Weight 110 kg Weight 242 lb BMI 31.46 What to do next Scheduled Follow-Up Appointments Wednesday 12:15 PM EST With: Nicole KEENE MD Where: [facility] Patient Educationon 12-31-19 Patient Education Obstetrics and Gynecology Urinary Tract Infection, Adult A urinary tract infection (UTI) is an infection of any part of the urinary tract. The urinary tract includes the kidneys, ureters, bladder, and urethra. These organs make, store, and get rid of urine in the body. Your health care provider may use other names to describe the infection. An upper UTI affects the ureters and kidneys (pyelonephritis). A lower UTI affects the bladder (cystitis) and urethra (urethritis). What are the causes? Most urinary tract infections are caused by bacteria in your genital area, around the entrance to your urinary tract (urethra). These bacteria grow and cause inflammation of your urinary tract. What increases the risk? You are more likely to develop this condition if: ? You have a urinary catheter that stays in place (indwelling). ? You are not able to control when you urinate or have a bowel movement (you have incontinence). ? You are female and you: ? Use a spermicide or diaphragm for control. ? Have low estrogen levels. ? Are . ? You have certain genes that increase your risk (genetics). ? You are sexually active. ? You take antibiotic medicines. ? You have a condition that causes your flow of urine to slow down, such as: ? An enlarged prostate, if you are male. ? Blockage in your urethra (stricture). ? A kidney stone. ? A nerve condition that affects your bladder control (neurogenic bladder). ? Not getting enough to drink, or not urinating often. ? You have certain medical conditions, such as: ? Diabetes. ? A weak disease-fighting system (immunesystem). ? Sickle cell disease. ? Gout. ? Spinal cord injury. What are the signs or symptoms? Symptoms of this condition include: ? Needing to urinate right away (urgently). ? Frequent urination or passing small amounts of urine frequently. ? Pain or burning with urination. ? Blood in the urine. ? Urine that smells bad or unusual. ? Trouble urinating. ? Cloudy urine. ? Vaginal discharge, if you are female. ? Pain in the abdomen or the lower back. You may also have: ? Vomiting or a decreased appetite. ? Confusion. ? Irritability or tiredness. ? A fever. ? Diarrhea. The first symptom in older adults may be confusion. In some cases, they may not have any symptoms until the infection has worsened. How is this diagnosed? This condition is diagnosed based on your medical history and a physical exam. You may also have other tests, including: ? Urine tests. ? Blood tests. ? Tests for sexually transmitted infections (STIs). If you have had more than one UTI, a cystoscopy or imaging studies may be done to determine the cause of the infections. How is this treated? Treatment for this condition includes: ? Antibiotic medicine. ? Dgoj-qpp-plwiwuv medicines to treat discomfort. ? Drinking enough water to stay hydrated. If you have frequent infections or have other conditions such as a kidney stone, you may need to see a health care provider who specializes in the urinary tract (urologist). In rare cases, urinary tract infections can cause sepsis. Sepsis is a life-threatening condition that occurs when the body responds to an infection. Sepsis is treated in the hospital with IV antibiotics, fluids, and other medicines. Follow these instructions at home: Medicines ? Take ytam-tfm-giwmrws and prescription medicines only as told by your health care provider. ? If you were prescribed an antibiotic medicine, take it as told by your health care provider. Do not stop using the antibiotic even if you start to feel better. General instructions ? Make sure you: ? Empty your bladder often and completely. Do not hold urine for long periods of time. ? Empty your bladder after sex. ? Wipe from front to back after a bowel movement if you are female. Use each tissue one time when you wipe. ? Drink enough fluid to keep your urine pale yellow. ? Keep all follow-up visits as told by your health care provider. This is important. Contact a health care provider if: ? Your symptoms do not get better after 1?2 days. ? Your symptoms go away and then return. Get help right away if you have: ? Severe pain in your back or your lower abdomen. ? A fever. ? Nausea or vomiting. Summary ? A urinary tract infection (UTI) is an infection of any part of the urinary tract, which includes the kidneys, ureters, bladder, and urethra. ? Most urinary tract infections are caused by bacteria in your genital area, around the entrance to your urinary tract (urethra). ? Treatment for this condition often includes antibiotic medicines. ? If you were prescribed an antibiotic medicine, take it as told by your health care provider. Do not stop using the antibiotic even if you start to feel better. ? Keep all follow-up visits as told by your health care provider. This is important. This in (more content not included)... Normal [facility] Urology Office/Clinic Noteon 12-30-2021 Urology Office/Clinic Note Chief Complaint 2 week F/U HPI Staff This is a 51 year old female here for 2 week F/U. Previous DX: recurrent UTI, postinfective without sensory awareness, asymptomatic micro hematuria and urge incontinence. S/P URO's 12/10/21, Cysto/UD 07/21/21. Dysuria: no Incomplete bladder emptying: no Hematuria: UA shows large today Frequency: every 1-2 hours Urgency: yes Nocturia: 2x's Stream: better then what it was Leaking: yes Post void dripping: no Wearing pads/ Depends: yes, Pt. using 6 Depends a day Urge incontinence: yes Stress incontinence: yes Incontinence without Sensory Awareness: occasionally Abdominal pain: no Flank pain: no History of Present Illness Tests reviewed: reviewed UA I have reviewed the previous health record information and history for this patient from Dr. Keene. I have reviewed and verified the staff HPI to be accurate for this encounter. There have been no associated fever, chills, flank pain, or blood in the urine. Denies any urinary infections since last encounter. Review of Systems ROS - Provider Constitutional: denies weight loss, denies hot flashes. Eyes: denies eye problems. Gastrointestinal: denies nausea, denies vomiting. Cardiovascular: denies chest pain or angina. Integumentary: no dryness Musculoskeletal: denies musculoskeletal symptoms. ENMT: denies otolaryngeal symptoms. Respiratory: no shortness of breath. Heme/Lymph: denies easy bleeding tendency, denies easy bruising tendency. Psychiatric: no confusion, no anxiety. Genitourinary: denies vaginal discharge, denies incontinence, denies dysuria, denies hematuria, denies urinary frequency, denies amenorrhea, denies menorrhagia, denies abnormal bleeding, denies pelvic pain, denies genital sores, and denies decreased libido. Physical Exam Vitals & Measurements HT: 74 in HT: 187 cm WT: 110 kg WT: 242 lb BMI: 31.46 General Appearance: alert , no acute distress, well nourished, well developed female. Genitourinary: bladder nonpalpable, no flank pain. Assessment/Plan 1. Recurrent UTI (N39.0: Urinary tract infection, site not specified) UA today shows LARGE blood and moderate AGUSTIN. Two documented cultures on 12/22/21 and 07/09/21. Pt. reports she has 2 or 3 days left of abx course. Encouraged adequate hydration. 2. Incontinence without sensory awareness (N39.42: Incontinence without sensory awareness) UDS done 12/10/21, normal report. Patient also experiencing urge incontinence. Reports she is going through 6 depends a day, states she was using 8. Pt. shares that leakage is worse during the night. Patient has tried Oxybutynin in the past but states it made her feel like she couldn't void. Will start Vesicare 5mg bid (AM/PM). Discussed the medication side effects, and the patient will monitor closely for these, as well as for symptom improvement. If severe side effects occur, the medication should be stopped and the office notified. Follow up in February. Pt. to continue timed voids. 3. Asymptomatic microscopic hematuria (R31.21: Asymptomatic microscopic hematuria) LARGE per UA today. Denies gross hematuria. Negative Cysto in July. 4. Postinfective urethral stricture in female (N35.12: Postinfective urethral stricture, not elsewhere classified, female) S/p Cysto/UD done 07/21/21. patient understands that the stricture can return and dilation may need repeated. States her stream is better than what it was. 5. Anticoagulated (Z79.01: 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 (current) use of anticoagulants) Eliquis therapy. Patient needs timed voiding for her leakage a small dose of Vesicare 5 every morning and at bedtime may help. Her urinary tract infection has responded to the antibiotic therapy. Patient still has her uterus. Dr. Cheatham had scoped this patient that is good finally I will see the patient in 2 months and see how she makes out with timed voiding and Vesicare medications Follow-up With When Contact Information YECENIA FOLEY, Nicole Garcia, [facility] [address] [place] [address]- Additional Instructions: 2 mos f/up to new med Patient Education Urinary Tract Infection, Adult IPeyton, personally scribed for Dr. Keene on 12/30/2021 09:57:23. Documentation recorded by the scribe, Peyton Bond, accurately reflects the services(s) I performed and decisions made by me. Authenticated by Dr. Keene on 12/30/2021 10:00:57.09:57:23. Problem List/Past Medical History Ongoing Anticoagulated Anxiety disorder Apnea, sleep Asymptomatic microscopic hematuria Bladder diverticulitis Bladder mass Cervical spine disease Chronic lower back pain Depression Detrusor and sphincter dyssynergia Diverticulosis GERD (gastroesophageal reflux disease) Gross hematuria Hydronephrosis of right kidney Incontinence without sensory awareness Lymphedema Microhematuria Morbid obesity MRSA (methicillin resistant staph aureus) culture positive Neurogeni (more content not included)... Normal [facility] Comment on above: Result Comment: Elec tronically Signed By: Nicole KEENE MD\.br\Date and Time Signed: 12/30/21 10:01 EST\.br\Electronically Co-Signed By: Peyton Bond.br\Date and Time Co-Signed: 12/30/21 09:57 EST Physician Orderon 12-29-2021 Physician Order [id number] .00CD:127 Normal [facility] Coding Summary.on 12-27-2021 Coding Summary. CD:[id number] G h0bWw+PGhlYWQ+RP6TWHM zP24pfQVvyP3MD4nELB2A MOJDPEYEMI4CNH7gnXZ4I LjpT5MujxEi ZhirfEWdIS34CDk5TZA8z YghXPcpaF4ruDHtN7x9Ow GuEC54dE70IIrnQARuWtW 3LjZpbjsgbWFy X5tpWaDyvBStIsz+PHRhY mxlIHdpZHRoPScxMDAlJy IspZkbHW1pPt5hULZpIVI vbGxhcHNlOiBj u1crXYEcSNkkYB6vpWwuL 7BfnWM9LYDsi8m7Nu37lV I+RQSfJIG2dKojMJfcw04 4EpLgp3thVXK6 gKAuPOloUPM8V47dm1N2T YRkNPNdZLH3lWJ2zI5qsL vjcbfmH3RnzYKeImI4MKS 9aPOlyI5zsNeg wnakdQ2cHso+R87KGW4FW WMJFK9JPpq5Z9IrSletfB I+LC92ESRtDB42xTQrzOV dy6qoeCo1TxRm TIDaOSZ0pFfuEAqda9BsW SUbE69rkVPye6Z4KOFojB getVTyMqKmjIL8jR4eRYs zqoceo3duvers Gqtsb5npln60gR55A50vQ PxjCUIsYOD3YGPnDRXfvF urmh6euR9mCt1+HCbfa9q aw7jhmLl4QpWx TQHckrKnzXekQTY0k2GqA u76J1ZzgMmho3MeIpp3jq 55aVAet5F5iEA9APgmOHZ inU6mXWwzSwU3 MXRzPaCcoU06lCMiKOzqH j1paBrfyNmcGN4rSQLwwn xlYTLotA7bOLUxpCOqvBl vTB8eEXQezvel z388McJaHVA3QDDljCXaH 7YorT2lDkVmYRGqWRWsP6 EfrQHxLQdrT506LCziLjU 5BFFzepSaI6Bl PORlpFmqRcN3o9T0Rs4Lr 6YtlmfmZNX0LDbxEMRzWx U4GjSoPbR1D5XrMjp4FZE ngEwtKF5fC2Vr PPGoeavnjcsalIS7KEMcC XFdpU36vKPaPAdePh8bh6 H5n276GRLqABUthU22Qp6 udDogMTBwdCBU gZ3euprsr6hlhfzjUuQaR LHkLZg8DIb8ZXHmiUigOz ApWTU4WiH6KBQ0mREgnB2 qzZhankhwjB6h Oyc+R05fgY0qUMJ9JZQ8w btrDPLcmhNrYB29CY53D7 RyPjwvdGFibGU+PGRpdiB jyKboGJ4qQsLm e9efd0OyNWngA3XmALJiN CymGjt4IMCtRKJ8dIU5dV 5xKBUtXBitb9J6gBV7E1Z txxOejd4zf0hj CWZaEWncR36nhBZjq2H4K ZRetGL1OUMekPpoYoIogQ 93Oyc+MCEuhYsnu5VbTrn lg4pnz9bhvVx4 QyZrVURezdSubQbbLVK6d 0YgMj49K76nNYnnYMLwMU CoEITkESRkqHhzfu7mfK3 wIi8+PGNvbCB3 kGX9hO0eTOSrMjD5IZcjG 318FxQihVTqPhhzm1god9 vckUp7LkOeNDZfauPeaOa xRNY2l8YwZj77 N78nRBopSPCvLTJwANAmJ QWxsSbpnv5dgJ9jKn0+PC 8og7quiy82dI81gKP+PHR nAKF4tKgcYMji GFKjmC7oOGsaZgU7QYVcT pKmhN44lTLqOWvsOh3rzT bosZlxJB1oHZLbmoyxa09 2WgPka8gvLOFb eDGzVNutRIO3I77xm7X8Q CGaOGXrQZS4cWZ6rG5ndY lnbjogbGVmdDsgdmVydGl vEEqnHQmxL672 IHRvcDsnPlBhdGllbnQgT mTwLUb7E4IoQfu2LLTlnP nyQI7jjEPxOEzvDg9vyFw ysIokEX2rNVYj iymba783KdIzo7mnATEyo TDxXZauICM8P13id1Y2LV PbZZUxKCD6yEQ6tQ4dvFx nbjogbGVmdDsg lgCukFbfVXnuZNsnD010F HRvcDsnPkJpcnRoIERhdG R0WP24OW72yIRry1L0lHR 1P4YxVMQezfcj aufmfIS6VXSkVAQggJ99M p6mqZdvNg3bYWVyABS4UI UrrZJfW9ZhxT0dLhStVYP tPJUqW4GyvUWn TGfcV187BIwkDnZ5OGBed cXaF1XgKMKncDpnWzW4d3 J0Uv7RL2T6HU57AG50uDH dp8K7xIM4R2Za HGXstapdfemhlUA2UFUxU XZnwG48Lt5ulExnRg1vQZ IhNNS5QKZghUTiU4LfbK0 yOiAjMDAwMDAw C2GzeWZbLIgnG220UWbwY eR7XTBiubSeE9QnFJGikN jyGvK4v7E0Bg7HIEl3BY6 2MU31wMPjw4F7 mFI0R4IpSTWrhrjvxachf JN6OZJxXMYowI69Vh9ilW fmRv8iIXFsYFE5OZOnfGS vD8VeyL2eJmWe STQbEKVsV8ErjDYpRYijJ 551EFqbFyM6MZLsnrDpG3 CbCOWdmBkxWjO1t5N4Pd4 FEYIyNI26QLT9 eKQ5JI14MA01I3VzJayje GFibGU+PHRhYmxlIHdpZH RoPScxMDAlJyBzdHlsZT0 pXb4uRVApRGVi fFsbxNJmVqDyi3reVXDbR XjuBV9cnWenB1TidBF1CW Epq4q6Mo55R43vQ3WpgJL +DHOnpJM8aCP6 oU7dMbHlDwL8WZwgT951I gBnfBOjYjngv2zcv3vbyN a6VoK3WKFywrKnkAouWWV 3k0VlTv15E49n IHdpZHRoPSIxNSUiIHZhb Fncgt9oyT8xBu8+PGNvbC X8dFA0vG7fOsWlLyH4TKf lR669NnQauZQz Petch1acc7fooAp4EbPiC IQznwQscWwdUBZ7n4UfOk 93X6VzaBjou0YbPgf7zu2 2aZHdc3A4sSP3 M8ZfZCRdlqhuvTPybAvvQ E7eFDFgkijcFAJisI4pLH PyE3h2RuZiPkN0KScmI0E ascT1EQZamACo RJsmLUF5R47xd4F7DKMrM ZQkAKP3xOE3hQ4jjLhzwu ogbGVmdDsgdmVydGljYWw uNLknT077EBTb qBmbKNHgcW1dONLiaKYme ZcmZD7dDTSjegepLiIZMU osIERFTkEgTTwvdGQ+PHR nZDH0aLudJVux GRRxzI2iYPLdJ1g6QxQlK xT0UHliX9XmYCUiesqeTg 96pB2yPzEaJoD5WYtwL6F pruV4XKMakSOe EVsvDGX7I95tm8S8CXHdC DIvXCG3mES2eP2onEarzh ogbGVmdDsgdmVydGljYWw mGFhyZ025WBYh bZwgTsI1YcS0QhO6XzC8W 4BdSkh2JNXroYmrHS5soV GpMZoxLz5toSnbeNkvLP9 wNTBpbjtwYWRk sH6xTBNfxNFvxLrmXC9rC PTyjanlp771UdRqIFP1GB OepVEaV7ZrbJ7sNoBbZYM uZWTzL3QqyXYq KNkfQ435SWyjQdT5IBLja tUxE8AbECMsvThfPrK0p5 Z8Hy73PeMUILCczliuiPZ +ZLHuDHB8tAje JTrwJWYhlX4nNOJaB5d6S vDlPuG9WQvkM2NyWTGwpf nkBn12rD7bHwNrWhJ3PCq tZ6XtvlT1YPHj iUUgUJrfROL8N70lf1O8A DXbNLDjWQJ8jKL1yD2dfU lnbjogbGVmdDsgdmVydGl yAAssYEqcJ768 IHRvcDsnPkZlbWFsZTwvd GQ+NBIiTJK9iMujHVtzYS VyoJ9mHNUxJ7a5CyDsRrN 2JOquA0QtSJXj yixyGl18oV7aIiLiFzP9C MbwS5RrxuD4CULyeMEgTS hpCOO8Q50po8L2NBTvDXY gGDS4aVU3nF9x bGlnbjogbGVmdDsgdmVyd UnfWFicVJvwV821SQJueW pnKtsoRnQAou6tEY3lLfe vdGQ+JS77oe03 S4FuZmjnGtp4RBFtCQV1w FB1nO3jRJKwTYbpt6G7tZ M6H2NhdmVcxa0ql8quUAX bLNruY49qlGSp z1W5PANgcHH7ROWhaFsyD jKhoD71Fzd+PGNvbGdyb3 TvRdysv7ash3kywTq4DkR wJSIgdmFsaWdu MAG3w8CvRb69S05eLWjeF HRoPSIzMCUiIHZhbGlnbj 7sfY8pLx8+SLTivGC1qGI 2zY3fXbRcFeW8 UDttQ690ZyYryAYeXxugy 6hlu4aplBx0OhMnYKHuep BhzJjrFJP3u0FsGn78W6O gvOjtb2MfYay8 lj28tVAck7Q2pFC3Q6YgB THpmvlkjRJblGnoPQ1jOQ ZmfghfCQNaiV5pHHYnO0o 7UnJtXzX6LHnq F7PsqdI8AEHfmZHdCGGnz QLIeA2dlnkkn2nmaqmtYp ZfPUMbXLd8PJo3CXYymJd cRyLvPBO1FaJ7 ANT9lDJjlX1fsBcdcjcli G9wOyc+RCh0z9xkzZJoXC 5xgGR2NG32OY17cZShl7T 1nOM4O6HbXQMl bzeagrsqyDW1JFFjZDZup W63Ld6jxKcgWh4iPCHqVD F6UHKwzQVaL8HlsH0jObU kTSYvKTDuW3Es oWBkQEbfD167DPcqFqS3D XVqhvRjJ1GmBQKmrOfoSq B2o8B7Si2VWO57ZD14LF3 2vLRbi6F2qPF0 O0OvHNAavdhftbfdeVW6J JVhSVPqnQ12Fg6rlNdiNk 3xKKOmDMO0JYJfkDScF4P neF4xJqUiNCLm RWBoR7AraZGsEOmuY186Y JexUxQ4VZCwdqKmY1BuOR XctMvrOkP4g0H9Tp4TWc9 0MY45II63oABf y6V2cEE5O0EcRURqnxoty zxoeSB2CTRpKVXszZ03Bv 0tbYxpMf3pUMRfWFI0UYP zoQCkR8MouR2x OvVbPCXsYABgL7JbaUNwH MyiD211MFxzDlR0PPRwix CiT6VtQEHoqVojEmJ5b7J 4Sv4FLXjncbx2 N4UcAhkszMK+CQ62RHVoX A12xOYolBQwx0uuhDw0Tb YlCVUhIYP4sXgeZOphq0T uWGQaF29ceJMy c2U6 (more content not included)... Normal [facility] C Urineon 12-25-2021 Bacteria identified Cx Nom (U) Microbiology PROCEDURE: Urine Culture [R1] SOURCE: U Random BODY SITE: COLLECTED DATE/TIME: 12/22/2021 15:30 EST RECEIVED DATE/TIME: 12/23/2021 11:26 EST START DATE/TIME: 12/23/2021 11:26 EST FREE TEXT SOURCE: YECENIA FOLEY, Nicole KEENE MD, Nicole Garcia FINAL REPORTS Final Report [] Verified Date/Time: 12/25/2021 08:46 EST >100,000 cfu/ml Escherichia coli SUSCEPTIBILITY RESULTS LEGEND: S=Susceptible, N/R=Not Reported, Blank=Data not available, or drug not advisable or tested, I=Intermediate, ESBL=Extended spectrum beta-lactamase, R=Resistant, TFG=Thymidine-depende nt strain, LUISA=Beta-lactamase positive, JAVIER=mcg/m;(mg/L), S*=Predicted susceptible interp, R*=Predicted resistant interp EC Antibiotic JAVIER Dilutn JAVIER Interp Amikacin <=16 S Ampicillin >16 R Ampicillin/ >16/8 R Sulbactam Aztreonam <=4 S Cefazolin >16 R Cefepime <=2 S Cefoxitin <=8 S Ceftazidime <=1 S Ceftazidime/ <=8 S Avibactam Ceftriaxone <=1 S Ciprofloxacin >2 R Ertapenem <=0.5 S Gentamicin >8 R Levofloxacin >4 R Meropenem <=1 S Nitrofurantoin 64 I Piperacillin/ 64 I Tazobactam Tetracycline >8 R Tigecycline <=2 S Tobramycin >8 R Trimethoprim/ >2/38 R Sulfa Performing Locations R1: This test was performed at: [facility], [address] [place] [address], [facility]- , , [facility] Comment on above: Performed By: #### [id number] ####[facility] [address] [place] [address] Physician Orderon 12-24-2021 Physician Order [id number] .[id number]:127 [facility] Ambulatory Visit Summaryon 1 02-21-2021 Ambulatory Visit Summary 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1970 Visit Date:12/22/2021 Ambulatory Visit Instructions Your Diagnosis Recurrent UTI 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 Asymptomatic microscopic hematuria Urgency incontinence Anticoagulated Tests Performed Urnls Dip Stick Auto w/o Microscopy POC 78621 Your Care Team Attending Physician - Nicole KEENE MD Primary Care Physician - LON IBRAHIM DO Referring Physician - Nicole KEENE MD This Is Your Medications List Contact prescribing physician if questions or concerns acetaminophen apixaban (Eliquis 5 mg oral tablet) biotin bisacodyl calcium carbonate cholecalciferol (Vitamin D 1000 intl units Tab) cranberry (Cranberry) docusate (docusate sodium) gabapentin gabapentin (gabapentin 400 mg Cap) metoprolol (metoprolol 25 mg ER Tab) multivitamin (B Complex 100) multivitamin (Multi Vitamin+) omega-3 polyunsaturated fatty acids (Defiance-3) Procedures Performed Urodynamics (12/10/2021), Cystourethroscopy and dilation of bladder (07/21/2021), TURBT - Transurethral resection of bladder tumor (03/11/2019), 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 Discharge Vitals Height 187.0 cm Height 74 in Weight 110.0 kg Weight 242 lb BMI 31.46 What to do next Scheduled Follow-Up Appointments Wednesday 10:45 AM EST With: Nicole KEENE MD Where: [facility] Patient Educationon 12-23-19 Patient Education Urology Urodynamic Testing What is urodynamic testing? Urodynamic tests are done to determine how well your lower urinary tract is working. The lower urinary tract includes your bladder and the part of your body that drains urine from the bladder (urethra). When your kidneys filter your blood, urine is stored in your bladder until you feel the urge to urinate. Urination requires coordination between the nerves and muscles of your bladder and urethra. When your lower urinary tract is working well, you should be able to: ? Start urinating when your bladder is full. ? Empty your bladder completely. ? Control the flow of your urine. Why do I need urodynamic testing? You may need urodynamic testing to help find the cause of any of these problems: ? Leaking urine (incontinence). ? Problems starting or stopping your urine flow. ? Frequent or painful urination. ? Frequent urinary tract infections. ? Being unable to empty your bladder completely. ? Having strong urges to pass urine (urgency). ? Having a weak flow of urine. How do I prepare for the tests? ? Ask your health care provider about changing or stopping your regular medicines. This is especially important if you are taking diabetes medicines or blood thinners. ? You may be asked to avoid urinating before coming to the test so that you arrive with a full bladder. ? Tell a health care provider about: ? Any allergies you have. ? All medicines you are taking, including vitamins, herbs, eye drops, creams, and txua-hei-dndfzpj medicines. ? Whether you are or may be . What are the risks of this testing? Generally, these tests are safe. However, some of the tests have risks, including: ? Discomfort. ? Frequent urge to urinate. ? Bleeding. ? Infection. ? Allergic reactions to medicines or dyes (contrast material). How is urodynamic testing done? You may have various urodynamic tests. The tests may be done separately or may all be done during one testing visit. You may be given an antibiotic medicine before or after testing to help prevent infection. The types of tests that may be done include: Uroflowmetry This test measures how much urine you pass and how long it takes to pass. ? You will urinate into a certain type of toilet or device (flowmeter). ? The device will measure the volume and the time of your urine flow. ? These measurements will be sent to a computer that creates a graph of your urine flow. Postvoid residual measurement This test measures how much urine is left in your bladder after you urinate. ? The test may be done with ultrasound. In this method, sound waves and a computer will be used to create an image of your bladder. ? The test can also be done by inserting a thin, flexible tube (catheter) into your bladder after you urinate. The remaining urine will be removed through the catheter so it can be measured. ? Remaining urine will be measured in milliliters (mL). If you have more than 100 mL left in your bladder after you urinate, your bladder is not emptying as it should. Cystometric testing This test uses a type of bladder catheter that can measure pressure. ? You may be given a medicine to numb the area (local anesthetic). ? The area around the opening of your urethra will be cleaned. ? A urinary catheter will be passed through your urethra into your bladder and used to empty your bladder completely. ? Then a measuring catheter will be placed, and your bladder will be filled with warm, germ-free (sterile) water. ? Pressure measurements will be taken: ? As your bladder fills. ? When you feel the need to urinate. ? As your bladder is emptied. ? You may be asked to cough or bear down to check for leakage. ? In some cases, your bladder may be filled with a material that shows up on X-rays (contrast material) so that X-ray pictures can be taken during the test. Electromyogram This test measures the electrical activity of the nerves and muscles of your bladder and the opening of your urethra. ? Sticky patches (electrodes) will be placed near your rectum and urethra to measure electrical activity. ? The measurements will show how well your nerves are communicating with your muscles. What happens after the testing? ? You should be able to go home right away and do your usual activities. ? You may be told to drink a glass of water every 30 minutes for the first 2 hours after testing. ? Taking a warm bath or using warm, wet cloths (warm compresses) may relieve any discomfort near your urethra. ? Contact your health care provider if you have: ? Pain. ? Blood in your urine. ? Chills. ? Fever. What do the results mean? Talk with your health care provider about what your results mean. Some common causes for abnormal results from urodynamic tests include: ? Enlarged prostate in men. ? Overactive bladder. ? Urinary tract infection. ? Nervous system diseases. (more content not included)... Normal [facility] Urology Office/Clinic Noteon 12-22-2021 Urology Office/Clinic Note Chief Complaint follow up to Urodynamics HPI Staff 2 weeks follow up to Urodynamics done 12/10/21. Previous DX: asymptomatic microscopic hematuria, bladder mass, gross hematuria, hydronephrosis of right kidney, incontinence without sensory awareness, neurogenic bladder, retention of urine, recurrent UTI, stress incontinence, urge incontinence. Dysuria: denies pain or burning Incomplete bladder emptying: denies Hematuria: denies visible blood, UA shows LARGE Frequency: yes Urgency: yes Nocturia: 2x a night Stream: slow stream Leaking: yes Post void dripping: yes Wearing pads/ Depends: yes wears depends daily, changes 5-8x times a day Urge incontinence: yes Stress incontinence: yes Incontinence without Sensory Awareness: yes when she sleeps she urinates Abdominal pain: denies Flank pain: denies Sexual complaints: denies History of Present Illness Tests reviewed: reviewed UA, urodynamics. I have reviewed the previous health record information and history for this patient from Dr. Keene. I have reviewed and verified the staff HPI to be accurate for this encounter. There have been no associated fever, chills, flank pain, or blood in the urine. Denies any urinary infections since last encounter. Review of Systems PHQ Score Initial Depression Screen Score: 0 ROS - Provider Constitutional: denies weight loss, denies hot flashes. Eyes: denies eye problems. Gastrointestinal: denies nausea, denies vomiting. Cardiovascular: denies chest pain or angina. Integumentary: no dryness Musculoskeletal: denies musculoskeletal symptoms. ENMT: denies otolaryngeal symptoms. Respiratory: no shortness of breath. Heme/Lymph: denies easy bleeding tendency, denies easy bruising tendency. Psychiatric: no confusion, no anxiety. Genitourinary: denies vaginal discharge, denies incontinence, denies dysuria, denies hematuria, denies urinary frequency, denies amenorrhea, denies menorrhagia, denies abnormal bleeding, denies pelvic pain, denies genital sores, and denies decreased libido. Physical Exam Vitals & Measurements HT: 74 in HT: 187.0 cm WT: 110.0 kg WT: 242 lb BMI: 31.46 General Appearance: alert , no acute distress, well nourished, well developed female. Genitourinary: bladder nonpalpable, no flank pain. Assessment/Plan Dr. Cheatham patient. 1. Recurrent UTI (N39.0: Urinary tract infection, site not specified) UA today shows LARGE leuks and POSITIVE nitrates, TRACE proteins. Will send urine for culture. Pt reports that she was getting UTIs every month, then after starting abx therapy, she was only getting UTIs every few months. Sent Rx for Cipro 500mg BID x 14ct. Will call pt with results from culture. 2. Postinfective urethral stricture in female (N35.12: Postinfective urethral stricture, not elsewhere classified, female) S/p Cysto/UD done 07/21/2021 without complications. 3. Incontinence without sensory awareness (N39.42: Incontinence without sensory awareness) Pt reports when she sleeps she urinates. Wears depends daily, changes 5-8x times a day. 4. Asymptomatic microscopic hematuria (R31.21: Asymptomatic microscopic hematuria) UA shows LARGE. Pt has hx of asymptomatic microscopic blood, moderate at previous encounter. Pt denies visible blood. Pt to call if she were to experience gross blood. 5. Urgency incontinence (N39.41: Urge incontinence) Urodynamics done 12/10/21. Discussed results of urodynamics study with pt, normal urodynamics. Ongoing, pt experiencing urgency, frequency. 6. Anticoagulated (Z79.01: 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 (current) use of anticoagulants) Eliquis 5mg. It is a complicated story patient had gastric bypass and 18 507 pounds. That said 2018. 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 May have been something to do with the neck 1 never knows. She is developed chronic UTIs and urinary incontinence still weighs almost 300 pounds is difficult to assess. Dr. Cheatham had done cystoscopy in the summer I was treating her for UTIs I am seeing her now she does have a UTI I am sending it for culture and sensitivity meantime putting her on Cipro pending the cultures. Urodynamics that I did and the patient were equivocal certainly no residual urine looks like she is emptying her bladder. We will treat her infections here in 2 weeks I may put her on long-term prophylactic medications we will see Follow-up With When Contact Information YECENIA FOLEY, Nicole Garcia, URL [address] [place] [address]- Additional Instructions: F/u 2 weeks Patient Education Urodynamic Testing ISheeba, personally scribed for Dr. Keene on 12/22/2021 15:46:36. . Documentation recorded by the scribe, Kelly Craft, accurately reflects the services(s) I performed and decisions made by me. Authenticated by Dr. Keene on 12/22/2021 15:54:15. Problem List/Past Medical History Ongoing Anticoagulated (more content not included)... Normal [facility] Comment on above: Result Comment: Elec tronically Signed By: Nicole KEENE MD\.br\Date and Time Signed: 12/22/21 15:54 EST\.br\Electronically Co-Signed By: Sheeba Gunn\.br\Date and Time Co-Signed: 12/22/21 15:47 EST Coding Summary.on 12-11-2021 Coding Summary. CD:[id number] G h0bWw+PGhlYWQ+IW1VZFL aQ96fpRDkiL1AH1gFBZ4G FXNLIPRXCS1GZJ8lfNT0T JuuV6KahlXz ZqewuMZkCA90ATd9CWG5z WecQBckhU3yzNUkY6y4Jz ZlYI39jQ30TYnbVHPsFnM 3LjZpbjsgbWFy J2rqCwTivYPqJkz+PHRhY mxlIHdpZHRoPScxMDAlJy NklQdvYX8iRn8zYJOcJDL vbGxhcHNlOiBj s5ueZYOkLQtuXD8hyXbqA 9UijFV4UZFek1z3Ux73gH I+IKMoCEE8eWunHJjfb70 8YvQyj2dnRNS4 fPDrZZopJJN5E62ya7V0P PLnMDImQNC7aQW9lB4vcG pgrxjmG3StkHRjTfA3PSY 6jIYfoB7pvWwc lkspeM8oVcu+L93OLE3IJ OBURU0BVel6H3NpPptguQ I+SA49EVLjDA94lZWdwAT ug1jwaCu3JpWl IJOjQTU4wWzcTGnfe6DlG BSkY57pyDVsj7T1MGBwfP npkOQaSvMyuMA8yO2sVNe dutzbj2qpdppa Ghwuo5oenk07wT67L67zK OlaWOXpJUD1JLSgSXKouL chzp0ibZ0pPb4+AGixc0l rg0xlcGz1UmOj JLAgfpTweDrdKOI9d8XjD i47I1FvyKglu7PfWwa5kc 80zDXsh3Z1jJR7MIixQGF foJ9bRVpgTzW6 KJNgXjRefG74vEXxTEjqO g3ghIekoMkpEL2rUTRfex yeTBHejP3pHKQajATeiKl gEV8gIMIgombk k142YhUsBKQ9BOPqzMRzI 1ZwjG4xBmCuKCFtKGCiJ0 WraHPxOHtwF719EUwhLvK 8QBUpjbIrY9Lu CQMaxLitJkR8a7B4Rn7No 2YdkzupIJP7ABeaAZZcSz NoQeZaUcK3L9SmNmw4XOQ axXagGI6kA0Qv LYYrqxfyccmljSV1PYMeV RRceA15ySRaBHyfLu2yj5 C4d345RLMbOYXzcA12Ko1 udDogMTBwdCBU rC6yzjlgu5aasrdwOrGiE FRjNBp8VHk0EXMnfGyxNm HmYFF4YlZ8QEN1eAOhoH0 pqZwaroenaO7c Oyc+F53jdI2lDNK6REF4s yfySUVmyxRoRV98GB52I8 RyPjwvdGFibGU+PGRpdiB poCesFH5cCdHr a8ofo9PdRWisN8FcPYBrV JyrEki1DOTuUNA0iBW0aI 3uJCNnQYwpe7K7zQA7X0X wfkOwax4yw4yo EORtQTysM10biVKuc7A9V LZywUG4NGPzfUadCsQylX 93Oyc+IRUhyXpag4RsYor xw2vwg5gnoMk5 ObPiSQUydsFdpWeqMLA2w 2UkDd92C40vWDtaGJZsTM OxDFVgMZQqmNwnsb5rqP0 wIi8+PGNvbCB3 aVM4fB6nVMWrAwV6ATuyM 226ZrGhxPAmTsobk1wnk0 cbeKk3SiQaBAImouTlmLh vHSO2o3FgIf81 K85jOXbnKSRqTJRfUOGbH XGkgFtxwj1qpT8dJd8+PC 1oc1mnol31jJ86lID+PHR cMXX0eJhzVEjg ROEaoQ3fLBhhXfB9GGIpF hMauB95sDMtCAuyZh6rfD rydQdyXA6pEXIsisvoc64 4DdSbx1seNWVn sVGlSSqpJBT5Q14wu7A6T NSpJSDvMQP2hCU7cV3jpS lnbjogbGVmdDsgdmVydGl qDArlUCkoK946 IHRvcDsnPlBhdGllbnQgT vCtSFw3G2PpKuq2HMLvxJ kaIN6bzVGmUEkvKa1rlDj naSyoZN8tVKBj rrnui388AuLsc4ooMJHgq ZYvIAdnRSC9J24ws1M0MP HhVGBgKYC7nCX7mQ7nmSz nbjogbGVmdDsg knPjcBhnLWmsIHjzL120C HRvcDsnPkJpcnRoIERhdG V0MA47BL53qQGfn0O2rPZ 9X1AiUETutzuz nahrkAT0CVZsUHLdpK03U s7deQzsQe8oDXHfZRX0XG QaxBWpQ9BmcF1tKcUbPUY rGATmP8SbcPDy ZGiuW919OHaiDtS1GPOey bOfT9XjZWNwwIqpAwD9p1 A3Gs9MR4O8RP38EE10fJC wj6L0nRY6P1Ea CGHjlxrktrndrIZ3RIBvK VWxvH73Xs9pqFsmMs1vBE EiJYB2BVMtzSWbF7NcoV6 yOiAjMDAwMDAw O3QomFTpUWcyJ479VEyqX mI6SOZsjsYfJ7JfABLziB wvKrD8n1S7Mz5XBLs9KR9 6XU41pVNnz2X7 pYG8A2CtHSBzsfisuiqua IL6WNZoEDEgfX69Lu8toV zaSg3kNXQqFAZ4ITKmfJY iY4QqdT2dMmUj TFXlDGGxB5LglGQaWVtlA 216YUnePnA0UBZksiTuL3 MaXLHimWekUgS2i7P6Aw1 HUVOaAB50HNI8 vPX9WS47JM58Z9PmAhonw GFibGU+PHRhYmxlIHdpZH RoPScxMDAlJyBzdHlsZT0 yVb0zMUXeILDi sLobnWTtFzEdg6ngEYRnF XjmBK7zaYgvW7VheBD8GD Plb9d5Qb11L48aR5SlzKW +YPJjeXH0iOM7 fW5fZvXqZcH4PKytP133G tNcdMRqXzbal0jac0wtyH t6NzZ5VKGfjtNnmAvdUGT 6g9HpJm14E34u IHdpZHRoPSIxNSUiIHZhb Iwyka1hrJ2gZc4+PGNvbC T6rWB1lA1yQjMlLrM9ACo lD868WxSxxZKy Fnwfu8jzg6jmvAe4QfUnT OImjrIbbEamTZA3m4VnHt 68O4YrxHobi7DeCqg9op7 7rLFdg3I5nOX0 D8NzTDTsmiqmbYMajVkkN G0oCEVkvunvYKMigR0rYO YmI1q3CeBgBnE4KZyqV4Q ttzN6CWExoBSj FXraZWS9Q17rt2R4ZBZiC LNeWBB6iEC8lW2enAtywt ogbGVmdDsgdmVydGljYWw uGFuyG139YGMn pCclVCPvlL3zUDJkwCOvj TvjDZ6wWDNwrbbgSuHEIV osIERFTkEgTTwvdGQ+PHR jPMC4yRsbAYyr ERPhyX7rHSZbN0t5PwUwW wL7WChvE1SkZGAogiqsOf 26lI0lNcUnWiA9RQolU5K qjiF5WPHrmAXk GNvgJQA3S55dw0H1OVTtS SLiIVB1mFS4fB4udNcriv ogbGVmdDsgdmVydGljYWw aFPwbL831RQVo uShdElV8IgE6UfQ8VvE1B 8QoPmt2CDPrcDfvXX0wrY VkCLivNw6xeAsnvKacZN3 wNTBpbjtwYWRk sN9mWCVlvVXpoSanGR2hD RWwqeggk866FnFzJJE1PL FdkNRlX5OkaU6cNkYsIJK gOZEwI9EpeHHf RJkzY391LAkwWmV3VZGnx xRbD5OrTZPjyRhcBlU2n4 X5Fb34XxGAFGRdkgxfuMH +SMEpVWD1gPew AUhmYBFbxK9eOZXlT7d2A qXuVwG9MEhiZ1CmYLReqz gdIk15nN6fTjXoLuF2UGd hL3BgncS3HIEm xIPmQTmkZPN8E81cr2Z8U TVoDWUeKWM1jME1fI8wfJ lnbjogbGVmdDsgdmVydGl qACxrJYqfO335 IHRvcDsnPkZlbWFsZTwvd GQ+NVPaHUI1dSllFIajVQ WhmI5eKNJbJ7y2MpDjQnT 0DKcqN0XvIAKh ekyvEn06rL3sCqXwEfR8B BwyO3JnptA9IEKikKXbDV foDXW5W18ws9J2FZJsWVJ rMPD2jXS1tJ9n bGlnbjogbGVmdDsgdmVyd BxrEChoBYznF978EGQqeF tzRv24uDMgxVaxtcM8T0G kPjwvdHI+PC90 EEHgKE13oGPmoHMpi2nxq Aw4UqFeBXLoOOS2wXlaNU evn5NlMJTtF04xbNYpc6C 6IGNvbGxhcHNl XgZcgSI9rZ0eWOkqwoqjm 8bpapdvVicpu2rkgb31kG 24Q31cNVtjAMTjBEQkDOM nGSQogTcbur5l mF9mId7+CMYnvYP7yCY8s E0oJhWhJbD8RGvjN376Qz HgkFPtShdto1vzb2inoCd 9IjIwJSIgdmFs yWwaKSA8g5NiUn34T40oI HdpZHRoPSIyMCUiIHZhbG qlkw4maX9xHq0+NC6zm3x cdy85tR85jLP+ CNQtIZG3hXwhHHwwGCXtj L2nBTirHeY3BTInCxRbeV 63sNYfMKozEx7lmEfmqYm nEZ2aQWFvcttr r705JrQyv9tlJSQhdQWrS CxdYHE6F43qa6N6DDByOG SvBVO0qHQ8dQ3gqZiufzp gbGVmdDsgdmVy wXtmLKskVWfeI423WKDca EyxHyQhgYUgE7oqufKYZT 1lOjwvdGQ+JKMsODX8sBe qRZkrLSAarO0z QWGcD9t4QqZrGcJ4RUstX 9AlouV9ELZccYWtZHAdkU GCrG5hakrvi5mavzrkPxK qJOEfOXr4ZHj0 IVGzgVlzRtQdHYI6BhH4H HF2iDBliP5bpVifecwjzE 9wOyc+RklOOjwvdGQ+PHR fAQP2lXkfDOws PGXicT9bCXRzY8d4BnByJ wJ7OIdpS8VmiwE7GDEjtD YtZLDzlDEUhS7rkfkyj4s vcjogIzAwMDAw PHl1WVf7SGWnuNcdTpOuW UB5DoF5UVB8cXQqsW7cyK cozqnqoX2yVgj+TVJOOjw vdGQ+PHRkIHN0 eXyiSQfrLOHyxT8oBWLwR 3s9MoEwXvH8YRhxA5Oqyr K0OTGxjGEmVUOqiXKQcS1 necpto0jhsamx VxHhGNPmRMo6LFf3NWHvw EhwAsYlYNF0XgA4MMH1eI JdaN8aoXoltjzybD5iImi +DYK6OZX1JU34 VP21D7MgUmjnhVLouMJ+P HRhYmxlIHdpZHRoPScxMD LlSnGhhGhiNS3sCm8cAFR yLWNvbGxhcHNl OiBj (more content not included)... Normal [facility] Consent for Procedure/Surger yon 12-10-2021 Consent for Procedure/Surgery [id number]# 1.00CD:127 Normal [facility] Consent for Treatmenton Consent for Treatment [id number]#1 .00CD:127 Normal [facility] Albumin [Mass/volume] in Ser um or PlasmaOrdered By: Lon Ibrahim on 10-16-2021 Albumin [Mass/Vol] 3.3 g/dL 3.2-5.5 [facility] Basophils Auto (Bld) [#/Vol] Ordered By: Lon Ibrahim on 10-16-2021 Basophils (Bld) [#/Vol] 0.0 10*3/uL 0.0-0.2 [facility] Basophils/100 WBC Auto (Bld) Ordered By: Lon Ibrahim on 10-16-2021 Basophils/100 WBC (Bld) 0.5 % . [facility] Blood hemoglobin measurement (mass/volume)Ordered By: Lon Ibrhaim on 10-16-2021 Hemoglobin (Bld) [Mass/Vol] 12.8 g/dL 11.8-15.4 [facility] Blood leukocytes automated c ount (number/volume)Ordered By: Lon Ibrahim on 10-16-2021 WBC (Bld) [#/Vol] 6.2 10*3/uL 4.5-11.0 [facility] Cholesterol [Mass/volume] in Serum or PlasmaOrdered By: Lon Ibrahim on 10-16-2021 Cholesterol [Mass/Vol] 206 mg/dL 140-200 [facility] Comment on above: Chol less than 200 m g/dl low risk Chol 201-239 mg/dl borderline risk Chol 240 mg/dl and greater high risk Cholesterol in LDL Calc [Mas s/Vol]Ordered By: Lon Ibrahim on 10-16-2021 Cholesterol in LDL [Mass/Vol] 118 mg/dL 0-100 [facility] Comment on above: LDL ATP III CLASSIFI CATION LDL less than 100 mg/dL Optimal LDL 100-129 mg/dL Near or above optimal LDL 130-159 mg/dL Borderline high LDL 160-189 mg/dL High LDL greater than 189 mg/dL Very high Cholesterol in VLDL Calc [Ma ss/Vol]Ordered By: Lon Ibrahim on 10-16-2021 Cholesterol in VLDL [Mass/Vol] 38 mg/dL [facility] Creatinine and Glomerular fi ltration rate.predicted panel (S/P/Bld)Ordered By: Lon Ibrahim on 10-16-2021 Creatinine [Mass/Vol] 0.90 mg/dL 0.44-1.03 [facility] Eosinophils Auto (Bld) [#/Vo l]Ordered By: Lon Ibrahim on 10-16-2021 Eosinophils (Bld) [#/Vol] 0.1 10*3/uL 0.0-0.45 [facility] Eosinophils/100 WBC Auto (Bl d)Ordered By: Lon Ibrahim on 10-16-2021 Eosinophils/100 WBC (Bld) 1.7 % . [facility] Erythrocyte distribution wid th Auto (RBC) [Ratio]Ordered By: Lon Ibrahim on 10-16-2021 Erythrocyte distribution width (RBC) [Ratio] 13.4 % 11.9-15.3 [facility] Estimated glomerular filtrat ion rate (GFR) non- AmericanOrdered By: Lon Ibrahim on 10-16-2021 GFR/1.73 sq M.predicted among non-blacks MDRD (S/P/Bld) [Vol rate/Area] > 60 mL/Min [facility] Ferritin [Mass/volume] in Se rum or PlasmaOrdered By: Lon Ibrahim on 10-16-2021 Ferritin [Mass/Vol] 46.6 ng/mL 11-306.8 [facility] Folate [Mass/volume] in Seru m or PlasmaOrdered By: Lon Ibrahim on 10-16-2021 Folate [Mass/Vol] ng/mL >5.9 [facility] Comment on above: Folate reference ran ge: >5.9 ng/ml The WHO technical consultation on folate and vitamin b12 deficiencies has determined that folate concentrations less than 4 ng/ml are considered deficient. Globulin Calc (S) [Mass/Vol] Ordered By: Lon Ibrahim on 10-16-2021 Globulin (S) [Mass/Vol] 3.3 g/dL [facility] Glucose mean value [Mass/vol ume] in Blood Estimated from glycated hemoglobinOrdered By: Lon Ibrahim on 10-16-2021 Average glucose Estimated from glycated hemoglobin (Bld) [Mass/Vol] 105 mg/dL [facility] Hematocrit Auto (Bld) [Volum e fraction]Ordered By: Lon Ibrahim on 10-16-2021 Hematocrit (Bld) [Volume fraction] 39.1 % 34.0-46.4 [facility] Hemoglobin A1c percentageOrd ered By: Lon Ibrahim on 10-16-2021 HbA1c (Bld) [Mass fraction] 5.3 % 4.3-5.6 [facility] Comment on above: Increased risk for d iabetes: 5.7 - 6.4 diabetes: >6.4 glycemic control for adults with diabetes: <7.0 Laboratory - Chemistry and C hemistry - challengeOrdered By: Lon Ibrahim on 10-16-2021 Cobalamin (Vitamin B12) [Mass/Vol] 432 pg/mL 180-914 [facility] Laboratory - Hematology and Cell countsOrdered By: Lon Ibrahim on 10-16-2021 Nucleated RBC/100 WBC (Bld) [Ratio] 0.2 % 0-0.5 [facility] Lymphocytes Auto (Bld) [#/Vo l]Ordered By: Lon Ibrahim on 10-16-2021 Lymphocytes (Bld) [#/Vol] 2.3 10*3/uL 1.00-4.8 [facility] Lymphocytes/100 WBC Auto (Bl d)Ordered By: Lon Ibrahim on 10-16-2021 Lymphocytes/100 WBC (Bld) 37.6 % . [facility] MCH Auto (RBC) [Entitic mass ]Ordered By: Lon Ibrahim on 10-16-2021 MCH (RBC) [Entitic mass] 30.6 pg 24.7-34.3 [facility] MCHC Auto (RBC) [Mass/Vol]Or dered By: Lon Ibrahim on 10-16-2021 MCHC (RBC) [Mass/Vol] 32.7 g/dL 32.0-35.[address] [facility] MCV Auto (RBC) [Entitic vol] Ordered By: Lon Ibrahim on 10-16-2021 MCV (RBC) [Entitic vol] 93.5 fL 80-100 [facility] Monocytes Auto (Bld) [#/Vol] Ordered By: Lon Ibrahim on 10-16-2021 Monocytes (Bld) [#/Vol] 0.4 10*3/uL 0.0-0.8 [facility] Monocytes/100 WBC Auto (Bld) Ordered By: Lon Ibrahim on 10-16-2021 Monocytes/100 WBC (Bld) 6.9 % . [facility] Neutrophils Auto (Bld) [#/Vo l]Ordered By: Lon Ibrahim on 10-16-2021 Neutrophils (Bld) [#/Vol] 3.3 10*3/uL 1.8-7.7 [facility] Neutrophils/100 WBC Auto (Bl d)Ordered By: Lon Ibrahim on 10-16-2021 Neutrophils/100 WBC (Bld) 53.3 % . [facility] No Panel InformationOrdered By: Lon Ibrahim on 10-16-2021 25-Hydroxy Vitamin D Total 47.4 ng/mL 30-100 [facility] Comment on above: VITAMIN D STATUS 25( [place])VITAMIN D RANGE (ng/mL) Deficient <20 Insufficient 20 to <30 Sufficient 30 to 100 Reference: Neema MF,Tico NC, Cindi ANGULO, et al. Evaluation,treatment, and prevention of vitamin D deficiency; an Endocrine Society clinical practice guideline. JCEM. 2010; 96(7):1911-30. Estimated GFR () > 60 mL/Min [facility] Comment on above: GFR estimated refere nce range: According to KDOQI guidelines, <60 ml/min/1.73m2 is sufficient to diagnose a patient with chronic kidney disease. Pharmacy Creatinine Clearance (Chem N/A [facility] Platelet mean volume Auto (B ld) [Entitic vol]Ordered By: Lon Ibrahim on 10-16-2021 Platelet mean volume (Bld) [Entitic vol] 8.6 fL 6.3-10.7 [facility] Platelets Auto (Bld) [#/Vol] Ordered By: Lon Ibrahim on 10-16-2021 Platelets (Bld) [#/Vol] 237 10*3/uL 150-450 [facility] Protein [Mass/volume] in Ser um or PlasmaOrdered By: Lon Ibrahim on 10-16-2021 Protein [Mass/Vol] 6.6 g/dL 6.1-7.9 [facility] RBC Auto (Bld) [#/Vol]Ordere d By: Lon Ibrahim on 10-16-2021 RBC (Bld) [#/Vol] 4.18 10*6/uL 3.60-5.00 [facility] Serum or plasma alanine swenson otransferase measurement without P-5'-P (enzymatic activiOrdered By: Lon Ibrahim on 10-16-2021 ALT No additional P-5'-P [Catalytic activity/Vol] 16 U/L 10-60 [facility] Serum or plasma albumin/glob ulin mass ratioOrdered By: Lon Ibrahim on 10-16-2021 Albumin/Globulin [Mass ratio] 1.0 {ratio} [facility] Serum or plasma alkaline yandel sphatase measurement (enzymatic activity/volume)Ordered By: Lon Ibrahim on 10-16-2021 ALP [Catalytic activity/Vol] 56 U/L 32-92 [facility] Serum or plasma anion gap de terminationOrdered By: Lon Ibrahim on 10-16-2021 Anion gap [Moles/Vol] 12.5 mmol/L 6.0-15.0 [facility] Serum or plasma aspartate am inotransferase measurement (enzymatic activity/volume)Ordered By: Lon Ibrahim on 10-16-2021 AST [Catalytic activity/Vol] 15 U/L 10-42 [facility] Serum or plasma calcium jon urement (mass/volume)Ordered By: Lon Ibrahim on 10-16-2021 Calcium [Mass/Vol] 9.3 mg/dL 8.2-10.2 [facility] Serum or plasma chloride latrell surement (moles/volume)Ordered By: Lon Ibrahim on 10-16-2021 Chloride [Moles/Vol] 103 mmol/L 95-114 [facility] Serum or plasma glucose jon urement (mass/volume)Ordered By: Lon Ibrahim on 10-16-2021 Glucose [Mass/Vol] 80 mg/dL 70-100 [facility] Comment on above: ADA recommended refe rence range Random Glucose Reference Range is dependent on time and content of last meal. Glucose of more than 200 mg/dL in a nonstressed, ambulatory subject supports the diagnosis of Diabetes Mellitus. Serum or plasma high density lipoprotein (HDL) cholesterol measurementOrdered By: Lon Ibrahim on 10-16-2021 Cholesterol in HDL [Mass/Vol] 50 mg/dL 35-85 [facility] Comment on above: HDL CHOL ATP-III CLA SSIFICATION Cardiovascular Risk HDL > or equal to 60 mg/dL LOW HDL < 40 mg/dL HIGH Serum or plasma potassium me asurement (moles/volume)Ordered By: Lon Ibrahim on 10-16-2021 Potassium [Moles/Vol] 4.2 mmol/L 3.5-5.1 [facility] Serum or plasma sodium measu rement (moles/volume)Ordered By: Lon Ibrahim on 10-16-2021 Sodium [Moles/Vol] 139 mmol/L 136-146 [facility] Serum or plasma total biliru bin measurement (mass/volume)Ordered By: Lon Ibrahim on 10-16-2021 Bilirubin [Mass/Vol] 0.5 mg/dL 0.3-1.2 [facility] Serum or plasma total carbon dioxide measurement (moles/volume)Ordered By: Lon Ibrahim on 10-16-2021 CO2 [Moles/Vol] 27.7 mmol/L 22.0-30.0 [facility] Serum or plasma total choles terol/high density lipoprotein (HDL) cholesterol mass ratOrdered By: Lon Ibrahim on 10-16-2021 Cholesterol.total/Roseanna sterol in HDL [Mass ratio] 4.1 {ratio} <5.0 [facility] Serum or plasma urea nitroge n measurement (mass/volume)Ordered By: Lon Ibrahim on 10-16-2021 Urea nitrogen [Mass/Vol] 21 mg/dL 9-23 [facility] TSH DL <= 0.005 mIU/L QnOrde red By: Lon Ibrahim on 10-16-2021 TSH Qn 1.34 m[IU]/L 0.45-5.33 [facility] Triglyceride [Mass/volume] i n Serum or PlasmaOrdered By: Lon Ibrahim on 10-16-2021 Triglyceride [Mass/Vol] 192 mg/dL 35-149 [facility] Comment on above: TRIG ATP III CLASSIF ICATION TRIG less than 150 mg/dL Normal TRIG 150-199 mg/dL Borderline high TRIG 200-500 mg/dL High TRIG greater than 500 mg/dL Very high Standard traceable to the Center for Disease Conrtrol and Prevention (CDC) test method. Ambulatory Visit Summaryon 0 09-16-2021 Ambulatory Visit Summary 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1970 Visit Date:09/16/2021 Ambulatory Visit Instructions Your Diagnosis 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 Asymptomatic microscopic hematuria Recurrent UTI Urgency incontinence Anticoagulated Tests Performed Urnls Dip Stick Auto w/o Microscopy POC 32542 Your Care Team Attending Physician - Linden Villarreal MD, Mihir Broderick Primary Care Physician - LON IBRAHIM DO This Is Your Medications List Contact prescribing physician if questions or concerns acetaminophen apixaban (Eliquis 5 mg oral tablet) biotin bisacodyl calcium carbonate cephalexin (Keflex 250 mg Cap) cholecalciferol (Vitamin D 1000 intl units Tab) cranberry (Cranberry) docusate (docusate sodium) gabapentin gabapentin (gabapentin 400 mg Cap) metoprolol (metoprolol 25 mg ER Tab) multivitamin (B Complex 100) multivitamin (Multi Vitamin+) omega-3 polyunsaturated fatty acids ([place]iance-3) Procedures Performed Cystourethroscopy and dilation of bladder (07/21/2021), TURBT - Transurethral resection of bladder tumor (03/11/2019), 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 Discharge Vitals Respiratory Rate 16 Height 187.0 cm Height 187 cm Weight 110.0 kg Weight 110 kg BMI 31.46 What to do next You Need to Schedule the Following Appointments Follow Up with Linden Villarreal MD, Mihir Broderick, URO When: Comments: schedule Urodynamics Where: [facility] [address] , [place] [address]- [phone] Medications What How Much When Why Instructions Unchanged acetaminophen Contact prescribing physician if questions or concerns Unchanged apixaban (Eliquis 5 mg oral tablet) 1 Tablets By Mouth 2 times a day Contact prescribing physician if questions or concerns Unchanged biotin By Mouth At bedtime Contact prescribing physician if questions or concerns Unchanged bisacodyl Contact prescribing physician if questions or concerns Unchanged calcium carbonate Contact prescribing physician if questions or concerns Unchanged cephalexin (Keflex 250 mg Cap) 1 Capsules By Mouth Every day Recurrent UTI Contact prescribing physician if questions or concerns Unchanged cholecalciferol (Vitamin D 1000 intl units Tab) 1 Tablets By Mouth Every day Contact prescribing physician if questions or concerns Unchanged cranberry (Cranberry) Contact prescribing physician if questions or concerns Unchanged docusate (docusate sodium) Contact prescribing physician if questions or concerns Unchanged gabapentin 300 Milligram By Mouth 2 times a day Contact prescribing physician if questions or concerns Unchanged gabapentin (gabapentin 400 mg Cap) 90 Unspecified/ Unknown, TAKE 1 CAPSULE BY MOUTH AT BEDTIME Contact prescribing physician if questions or concerns Unchanged metoprolol (metoprolol 25 mg ER Tab) By Mouth Every day Contact prescribing physician if questions or concerns Unchanged multivitamin (B Complex 100) sacod Contact prescribing physician if questions or concerns Unchanged multivitamin (Multi Vitamin+) Contact prescribing physician if questions or concerns Unchanged omega-3 polyunsaturated fatty acids (Defiance-3) Contact prescribing physician if questions or concerns Test Results Urnls Dip Stick Auto w/o Microscopy POC 09933 (09/16/2021) Bilirubin Urine Dipstick - Negative Blood Urine Dipstick - 2+ Moderate Glucose Urine Dipstick - Negative Ketones Urine Dipstick - Negative Leukocytes Urine Dipstick - 3+ Large Nitrite Urine Dipstick - Negative Protein Urine Dipstick - Negative Specific [place] Urine Dipstick - 1.015 Urine Appearance Urine Dipstick - Clear Urine Color Urine Dipstick - Light yellow Urobilinogen Urine Dipstick - Normal 0.2-1 EU/dl pH Urine Dipstick - 6 Allergies Tape (Rash) Problems Ongoing - Any problem that you are currently receiving treatment for. Anticoagulated Anxiety disorder Apnea, sleep Asymptomatic microscopic hematuria Bladder diverticulitis Bladder mass Cervical spine disease Chronic lower back pain Depression Detrusor and sphincter dyssynergia Diverticulosis GERD (gastroesophageal reflux disease) Gross hematuria Hydronephrosis of right kidney Incontinence without sensory awareness Lymphedema Microhematuria Morbid obesity MRSA (methicillin resistant staph aureus) culture positive Neurogenic bladder Postinfective urethral stricture in female Recurrent UTI Retention of urine Stress incontinence Tachycardia Urgency incontinence Urinary retention Education Materials Urinary Tract Infection, Adult A urinary tract infection (UTI) is an infection of any part of the urinary tract. The urinary tract includes: ? The kidneys. ? The ureters. ? The bladder. ? The urethra. These organs make, store, and get (more content not included)... Normal [facility] Patient Educationon 09-17-19 Patient Education Obstetrics and Gynecology Urinary Tract Infection, Adult A urinary tract infection (UTI) is an infection of any part of the urinary tract. The urinary tract includes: ? The kidneys. ? The ureters. ? The bladder. ? The urethra. These organs make, store, and get rid of pee (urine) in the body. What are the causes? This is caused by germs (bacteria) in your genital area. These germs grow and cause swelling (inflammation) of your urinary tract. What increases the risk? You are more likely to develop this condition if: ? You have a small, thin tube (catheter) to drain pee. ? You cannot control when you pee or poop (incontinence). ? You are female, and: ? You use these methods to prevent : ? A medicine that kills sperm (spermicide). ? A device that blocks sperm (diaphragm). ? You have low levels of a female hormone (estrogen). ? You are . ? You have genes that add to your risk. ? You are sexually active. ? You take antibiotic medicines. ? You have trouble peeing because of: ? A prostate that is bigger than normal, if you are male. ? A blockage in the part of your body that drains pee from the bladder (urethra). ? A kidney stone. ? A nerve condition that affects your bladder (neurogenic bladder). ? Not getting enough to drink. ? Not peeing often enough. ? You have other conditions, such as: ? Diabetes. ? A weak disease-fighting system (immune system). ? Sickle cell disease. ? Gout. ? Injury of the spine. What are the signs or symptoms? Symptoms of this condition include: ? Needing to pee right away (urgently). ? Peeing often. ? Peeing small amounts often. ? Pain or burning when peeing. ? Blood in the pee. ? Pee that smells bad or not like normal. ? Trouble peeing. ? Pee that is cloudy. ? Fluid coming from the vagina, if you are female. ? Pain in the belly or lower back. Other symptoms include: ? Throwing up (vomiting). ? No urge to eat. ? Feeling mixed up (confused). ? Being tired and grouchy (irritable). ? A fever. ? Watery poop (diarrhea). How is this treated? This condition may be treated with: ? Antibiotic medicine. ? Other medicines. ? Drinking enough water. Follow these instructions at home: Medicines ? Take ipge-vwb-aaixekf and prescription medicines only as told by your doctor. ? If you were prescribed an antibiotic medicine, take it as told by your doctor. Do not stop taking it even if you start to feel better. General instructions ? Make sure you: ? Pee until your bladder is empty. ? Do not hold pee for a long time. ? Empty your bladder after sex. ? Wipe from front to back after pooping if you are a female. Use each tissue one time when you wipe. ? Drink enough fluid to keep your pee pale yellow. ? Keep all follow-up visits as told by your doctor. This is important. Contact a doctor if: ? You do not get better after 1?2 days. ? Your symptoms go away and then come back. Get help right away if: ? You have very bad back pain. ? You have very bad pain in your lower belly. ? You have a fever. ? You are sick to your stomach (nauseous). ? You are throwing up. Summary ? A urinary tract infection (UTI) is an infection of any part of the urinary tract. ? This condition is caused by germs in your genital area. ? There are many risk factors for a UTI. These include having a small, thin tube to drain pee and not being able to control when you pee or poop. ? Treatment includes antibiotic medicines for germs. ? Drink enough fluid to keep your pee pale yellow. This information is not intended to replace advice given to you by your health care provider. Make sure you discuss any questions you have with your health care provider. Document Released: 07/13/2008 Document Revised: 01/12/2019 Document Reviewed: 08/04/2018 [employer] Patient Education ? 2019 [employer]. [facility] Urology Office/Clinic Noteon 09-16-2021 Urology Office/Clinic Note Chief Complaint 2 month follow up with Cysto/UD This 51-year-old female urinary incontinence. Status post Patient on 07/21/2021. Since that time her symptoms are well since improved significantly. She still has urgency and stress incontinence with the use of 10 incontinence garments per day. He is here to discuss treatment options. HPI Staff Carrie is here today for a 2 month follow up from Cysto/UD done on 07/21/21. Previous DX: Postinfective urethral stricture in female, incontinence without sensory awareness, asymptomatic microscopic hematuria, recurrent UTI, urgency incontinence, anticoagulated. Pt is currently taking Keflex 250mg qd.PVR today was 151ml. Dysuria: _denies Incomplete bladder emptying: _denies Hematuria: _denies, UA shows moderate blood. Frequency: _roughly every hour and a half Urgency: _yes Nocturia: _2x Stream: _slower stream Leaking: _yes Post void dripping: _yes Wearing pads/ Depends: _yes changed multiple times a day Urge incontinence: _yes Stress incontinence: _yes Incontinence without Sensory Awareness: _yes Abdominal pain: _denies Flank pain: _denies Sexual complaints: _ History of Present Illness Tests reviewed: reviewed UA I have reviewed the previous health record information and history for this patient from Dr. Cheatham. I have reviewed and verified the staff HPI to be accurate for this encounter. There have been no associated fever, chills, flank pain, or blood in the urine. Denies any urinary infections since last encounter. Review of Systems PHQ Score Initial Depression Screen Score: 0 ROS - Provider Constitutional: denies weight loss, denies hot flashes. Eyes: denies eye problems. Gastrointestinal: denies nausea, denies vomiting. Cardiovascular: denies chest pain or angina. Integumentary: no dryness Musculoskeletal: denies musculoskeletal symptoms. ENMT: denies otolaryngeal symptoms. Respiratory: no shortness of breath. Heme/Lymph: denies easy bleeding tendency, denies easy bruising tendency. Psychiatric: no confusion, no anxiety. Genitourinary: denies vaginal discharge, denies incontinence, denies dysuria, denies hematuria, denies urinary frequency, denies amenorrhea, denies menorrhagia, denies abnormal bleeding, denies pelvic pain, denies genital sores, and denies decreased libido. Physical Exam Vitals & Measurements RR: 16 HT: 187.0 cm HT: 187 cm WT: 110.0 kg WT: 110 kg BMI: 31.46 General Appearance: alert , no acute distress, well nourished, well developed female. Genitourinary: bladder nonpalpable, no flank pain. Assessment/Plan Urinary incontinence most likely stress incontinence with mixed incontinence. Symptoms. This patient is being scheduled for urodynamics. Following that we will discuss the possibility of surgical options to help with her urinary incontinence. The procedure risk and potential complications have been discussed with the patient. Informed consent has been obtained. Arranges will be made for urodynamics. Review of urinalysis shows positive leukocytes and blood. She is on anticoagulants and went to be planned constantly causing significant amount of irritation.. She has no symptoms of urinary tract infection. 1. Postinfective urethral stricture in female (N35.12: Postinfective urethral stricture, not elsewhere classified, female) S/p Cysto/UD done 07/21/2021 without complications. PVR today is 151mL. Ordered: Measure Post Void residual urine and/or bladder capacity by US- non-imaging 00141 Urnls Dip Stick Auto w/o Microscopy POC 99337 Urology Procedure Order 2. 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 Pt states she wears briefs and changes them about 10x/day. Ordered: Measure Post Void residual urine and/or bladder capacity by US- non-imaging 63377 Urnls Dip Stick Auto w/o Microscopy POC 20901 Urology Procedure Order 3. Asymptomatic microscopic hematuria (R31.21: Asymptomatic microscopic hematuria) UA today shows moderate blood. Ordered: Measure Post Void residual urine and/or bladder capacity by US- non-imaging 01646 Urnls Dip Stick Auto w/o Microscopy POC 38537 Urology Procedure Order 4. Recurrent UTI (N39.0: Urinary tract infection, site not specified) Pt states she is unable to feel if she has dysuria or itching. Pt has been taking her Keflex 250mg qd. UA today shows large leuks. Ordered: Measure Post Void residual urine and/or bladder capacity by US- non-imaging 77992 Urnls Dip Stick Auto w/o Microscopy POC 37950 Urology Procedure Order 5. Urgency incontinence (N39.41: Urge incontinence) Pt c/o daytime freq, urgency, bladder spasms, nocturia x2, changes pads multiple times daily. Discussed w/ pt tx options, such as urodynamics. Will schedule Urodynamics. Ordered: Measure Post Void residual urine and/or bladder capacity by US- non-imaging 86759 Urnls Dip Stick Auto w/o Microscopy POC 16087 Urology Procedure Order (more content not included)... Normal [facility] Comment on above: Result Comment: Elec tronically Signed By: Linden Villarreal MD, Mihir Broderick\.br\Date and Time Signed: 09/16/21 09:04 EDT\.br\Electronically Co-Signed By: Loren Negro\.br\Date and Time Co-Signed: 09/16/21 08:54 EDT Consent for Procedure/Surger yon 07-22-2021 Consent for Procedure/Surgery [id number]:127 Normal [facility] Urology Office/Clinic Noteon 07-22-2021 Urology Office/Clinic Note Chief Complaint Patient in office for Cysto/UD HPI Staff Patient in office for Cysto/UD. Antibiotics have been taken. History of Present Illness Tests Reviewed: I have reviewed and verified the staff HPI to be accurate for this encounter. I have reviewed the previous health record information and history for this patient from Dr. Cheatham There have been no associated fever, chills, flank pain, or blood in the urine. Denies any urinary infections since last encounter...ag Review of Systems ROS - Provider Constitutional: denies weight loss, denies hot flashes. Eyes: denies eye problems. Gastrointestinal: denies nausea, denies vomiting. Cardiovascular: denies chest pain or angina. Integumentary: no dryness Musculoskeletal: denies musculoskeletal symptoms. ENMT: denies otolaryngeal symptoms. Respiratory: no shortness of breath. Heme/Lymph: denies easy bleeding tendency, denies easy bruising tendency. Psychiatric: no confusion, no anxiety. Genitourinary: denies vaginal discharge, denies incontinence, denies dysuria, denies hematuria, denies urinary frequency, denies amenorrhea, denies menorrhagia, denies abnormal bleeding, denies pelvic pain, denies genital sores, and denies decreased libido. Physical Exam Vitals & Measurements HR: 66(Peripheral) BP: 124/72 WT: 110.0 kg WT: 110.0 kg General Appearance: alert , no acute distress, well nourished, well developed female. Genitourinary: bladder nonpalpable, no flank pain. Procedure Operative Information Anesthesia Type: Local Procedure: Local Cystoscopy with Urethral Dilation Complications: None Surgical risks, benefits, details of the procedure have been explained to the patient. Full informed consent has been obtained. Intraoperative Information Prepped: Patient is brought back to the endoscopy suite. Patient is placed in modified dorso/lithotomy position. Patient prepped in the usual fashion with Betadine solution. 2% Xylocaine Jelly is placed per Urethra. After waiting several minutes, the Cystoscope is introduced. The Urethra is: Tight The Prostatic Urethra is: _ The Bladder: Abnormal, Trabeculated: Moderate (2) small diverticuli were identified. There were no mucosal lesions seen. Valsalva revealed a significant amount of leakage of urine. Simulated suspension of the urethra using fingers led to a significant improvement on the incontinence. There is a grade 2 cystocele. The Ureteral orifices: Show efflux of clear urine The Urethra was dilated to: 28 Kazakh with sounds. Specimens Removed: None Removal: Cystoscope is removed. The patient tolerated it well. Postoperative Information Patient is discharged home with antibiotic coverage. Follow up arranged. Assessment/Plan This patient has a relatively hypermobile urethra with urinary incontinence especially with Valsalva. Urethral dilation was performed without complication. This patient's bladder was moderately trabeculated with some cellule formation. This has the appearance of a high-pressure bladder. 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 I am not sure that that is still a problem at this point. She does frequently urinate at times. We will discuss treatment options on her next visit. These may include sling type bladder suspension and/or the possible use of Botox. Hopefully she will have some relief after the urethral dilation. We will reassess on her next visit. 1. Postinfective urethral stricture in female (N35.12: Postinfective urethral stricture, not elsewhere classified, female) cysto/ud done today Ordered: 43054 Cystourethroscop w/ calib and/or dilat of structure/stenosis w/w/o meatotomy / inj Dilation of urethral stricture, female, Initial 82207 2. 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 3. Asymptomatic microscopic hematuria (R31.21: Asymptomatic microscopic hematuria) previous UA showed large Ordered: 19640 Cystourethroscop w/ calib and/or dilat of structure/stenosis w/w/o meatotomy / inj Dilation of urethral stricture, female, Initial 71295 4. Recurrent UTI (N39.0: Urinary tract infection, site not specified) Pt stated she feels as if she currently has a UTI. Stated that her urine is a dark color and a little cloudy. Denies burning. no odor noted. has been taking her suppressive Keflex. Previous UA showed large blood and small AGUSTIN. Ordered: 25819 Cystourethroscop w/ calib and/or dilat of structure/stenosis w/w/o meatotomy / inj Dilation of urethral stricture, female, Initial 68495 5. Urgency incontinence (N39.41: Urge incontinence) c/o daytime freq, urgency, bladder spasms, nocturia x2, changes pads multiple times daily Tried oxybutynin 5mg but stopped it because she felt it made it difficult to void. Ordered: 60361 Cystourethroscop w/ calib and/or dilat of structure/stenosis w/w/o meatotomy / inj Dilation of urethral stri (more content not included)... Normal [facility] Comment on above: Result Comment: Elec tronically Signed By: Mihir Cheatham Jr., MD\.br\Date and Time Signed: 07/22/21 08:18 EDT\.br\Electronically Co-Signed By: Shirley Guevara MA\.br\Date and Time Co-Signed: 07/21/21 15:13 EDT Ambulatory Visit Summaryon 0 07-21-2021 Ambulatory Visit Summary LUISRANJEETHannah Rowan :1970 Visit Date:07/21/2021 Ambulatory Visit Instructions Your Diagnosis Recurrent UTI Asymptomatic microscopic hematuria Urgency incontinence Postinfective urethral stricture in female Anticoagulated Your Care Team Attending Physician - Mihir Cheatham Jr., MD Primary Care Physician - LON IBRAHIM DO This Is Your Medications List Contact prescribing physician if questions or concerns acetaminophen apixaban (Eliquis 5 mg oral tablet) biotin bisacodyl calcium carbonate cholecalciferol (Vitamin D 1000 intl units Tab) cranberry (Cranberry) docusate (docusate sodium) gabapentin gabapentin (gabapentin 400 mg Cap) metoprolol (metoprolol 25 mg ER Tab) multivitamin (B Complex 100) multivitamin (Multi Vitamin+) omega-3 polyunsaturated fatty acids (Defiance-3) Procedures Performed Cystourethroscopy and dilation of bladder (07/21/2021), TURBT - Transurethral resection of bladder tumor (03/11/2019), 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 Discharge Vitals Heart Rate (Peripheral) 66 Blood Pressure 124/72 Weight 110.0 kg Weight 110.0 kg What to do next Scheduled Follow-Up Appointments Wednesday 8:00 AM EDT With: Linden Villarreal MD, Mihir Broderick Where: [facility] F[facility]ix Normal [facility] Patient Educationon 07-22-19 Patient Education Obstetrics and Gynecology Overactive Bladder, Adult Overactive bladder refers to a condition in which a person has a sudden need to pass urine. The person may leak urine if he or she cannot get to the bathroom fast enough (urinary incontinence). A person with this condition may also wake up several times in the night to go to the bathroom. Overactive bladder is associated with poor nerve signals between your bladder and your brain. Your bladder may get the signal to empty before it is full. You may also have very sensitive muscles that make your bladder squeeze too soon. These symptoms might interfere with daily work or social activities. What are the causes? This condition may be associated with or caused by: ? Urinary tract infection. ? Infection of nearby tissues, such as the prostate. ? Prostate enlargement. ? Surgery on the uterus or urethra. ? Bladder stones, inflammation, or tumors. ? Drinking too much caffeine or alcohol. ? Certain medicines, especially medicines that get rid of extra fluid in the body (diuretics). ? Muscle or nerve weakness, especially from: ? A spinal cord injury. ? Stroke. ? Multiple sclerosis. ? Parkinson's disease. ? Diabetes. ? Constipation. What increases the risk? You may be at greater risk for overactive bladder if you: ? Are an older adult. ? Smoke. ? Are going through menopause. ? Have prostate problems. ? Have a neurological disease, such as stroke, dementia, Parkinson's disease, or multiple sclerosis (MS). ? Eat or drink things that irritate the bladder. These include alcohol, spicy food, and caffeine. ? Are overweight or obese. What are the signs or symptoms? Symptoms of this condition include: ? Sudden, strong urge to urinate. ? Leaking urine. ? Urinating 8 or more times a day. ? Waking up to urinate 2 or more times a night. How is this diagnosed? Your health care provider may suspect overactive bladder based on your symptoms. He or she will diagnose this condition by: ? A physical exam and medical history. ? Blood or urine tests. You might need bladder or urine tests to help determine what is causing your overactive bladder. You might also need to see a health care provider who specializes in urinary tract problems (urologist). How is this treated? Treatment for overactive bladder depends on the cause of your condition and whether it is mild or severe. You can also make lifestyle changes at home. Options include: ? Bladder training. This may include: ? Learning to control the urge to urinate by following a schedule that directs you to urinate at regular intervals (timed voiding). ? Doing Kegel exercises to strengthen your pelvic floor muscles, which support your bladder. Toning these muscles can help you control urination, even if your bladder muscles are overactive. ? Special devices. This may include: ? Biofeedback, which uses sensors to help you become aware of your body's signals. ? Electrical stimulation, which uses electrodes placed inside the body (implanted) or outside the body. These electrodes send gentle pulses of electricity to strengthen the nerves or muscles that control the bladder. ? Women may use a plastic device that fits into the vagina and supports the bladder (pessary). ? Medicines. ? Antibiotics to treat bladder infection. ? Antispasmodics to stop the bladder from releasing urine at the wrong time. ? Tricyclic antidepressants to relax bladder muscles. ? Injections of botulinum toxin type A directly into the bladder tissue to relax bladder muscles. ? Lifestyle changes. This may include: ? Weight loss. Talk to your health care provider about weight loss methods that would work best for you. ? Diet changes. This may include reducing how much alcohol and caffeine you consume, or drinking fluids at different times of the day. ? Not smoking. Do not use any products that contain nicotine or tobacco, such as cigarettes and e-cigarettes. If you need help quitting, ask your health care provider. ? Surgery. ? A device may be implanted to help manage the nerve signals that control urination. ? An electrode may be implanted to stimulate electrical signals in the bladder. ? A procedure may be done to change the shape of the bladder. This is done only in very severe cases. Follow these instructions at home: Lifestyle ? Make any diet or lifestyle changes that are recommended by your health care provider. These may include: ? Drinking less fluid or drinking fluids at different times of the day. ? Cutting down on caffeine or alcohol. ? Doing Kegel exercises. ? Losing weight if needed. ? Eating a healthy and balanced diet to prevent constipation. This may include: ? Eating foods that are high in fiber, such as fresh fruits and vegetables, whole grains, and beans. ? Limiting foods that are high in fat and processed sugars, such as fried and sweet foods. General instructions ? Take ove (more content not included)... Normal [facility] C Urineon 07-11-2021 Bacteria identified Cx Nom (U) Microbiology PROCEDURE: Urine Culture [R1] SOURCE: U CleanCatch BODY SITE: COLLECTED DATE/TIME: 07/09/2021 13:50 EDT RECEIVED DATE/TIME: 07/09/2021 18:01 EDT START DATE/TIME: 07/09/2021 18:01 EDT FREE TEXT SOURCE: MARYJANE PEARSON, ANGELITA PAEZ PA-C, ANGELITA Meade FINAL REPORTS Final Report [] Verified Date/Time: 07/11/2021 10:07 EDT >100,000 cfu/ml Morganella morganii SUSCEPTIBILITY RESULTS LEGEND: S=Susceptible, N/R=Not Reported, Blank=Data not available, or drug not advisable or tested, I=Intermediate, ESBL=Extended spectrum beta-lactamase, R=Resistant, TFG=Thymidine-depende nt strain, LUISA=Beta-lactamase positive, JAVIER=mcg/m;(mg/L), S*=Predicted susceptible interp, R*=Predicted resistant interp Mormor Antibiotic JAVIER Dilutn JAVIER Interp Amikacin <=16 S Ampicillin >16 R Ampicillin/ >16/8 R Sulbactam Aztreonam >16 R Cefazolin >16 R Cefepime <=2 S Cefoxitin <=8 S Ceftazidime >16 R Ceftazidime/ <=8 S Avibactam Ceftriaxone 8 R Ciprofloxacin <=1 S Ertapenem <=0.5 S Gentamicin <=4 S Levofloxacin <=2 S Meropenem <=1 S Nitrofurantoin >64 R Piperacillin/ <=16 S Tazobactam Tetracycline >8 R Tigecycline <=2 R* Tobramycin <=4 S Trimethoprim/ <=2/38 S Sulfa Performing Locations R1: This test was performed at: [facility], [address] [place] [address], [id number] , , [facility] Comment on above: Performed By: #### 2 [id number] ####[place] [address] Coding Summary.on 07-11-2021 Coding Summary. [id number] G h0bWw+PGhlYWQ+XI8ZUNZ iW03cmAAahP5TL7kEEN3O EMOAEXTYTL6MMZ1muNV8U ZwlK0YrhhJs MfqrkOYyPK18NFw9RBE1d JhdQSikxS8iaSGqK0n1Xi OiPG45aO74OIpjHOOxYfD 3LjZpbjsgbWFy L9ckQkMlxWZuJnq+PHRhY mxlIHdpZHRoPScxMDAlJy SyxPwiTJ8uGo9nICAbSFC vbGxhcHNlOiBj v1jlLKYgLJhhLL9jqCuoE 2IngAB9MZBwr6q7Bs38dS I+BEYnRKA2vDlhIShpj46 3GeEha0cxZST6 dDKqTJhmOJH1R04bz2G8T KQdWUBuYFM7nTV0qW2sbM bhghveX7AebTEtHmM5ODC 8aYRtpC7wdUdq ksbeeL9oLmp+C62NCQ8CI RLBHL1WJyi0H2CnMdufoB I+SG40LZFzOO50iRFbwJW yd4mrgVn7PlUx PSNuWUX7pSepTTbfm2DtC RRfH42xrKUnt5D2BJIuqB awlVOdQkYctBW3tO7gNFe wxqyzg4qzpodf Iwbcr2pzdh38bF41P15lO ZisHIZuSBU3MMKhLVOyaF jfvf6psJ8iRb4+UPyfm0z fi3gbiJs5AlYx KYNbrcJkuEorTLS2m2BvY l14C7TioIpqy6ToTnh5hz 03oVEli9B5rRH8YDblPWZ dvY1vJGgtCpF9 INHyGtHneV48eLPuWIpyP j7cfRzblHtlJJ4wJSSisy yoRUWfgZ9nPXNztCZmaVu jFS8iVKPryzun t730FpRpWUY0JFLenCBbP 7GsrH3bSoTmRYVlRHUeB2 OyrOCoONtpB099OOdhQsR 1DRUuipEwC0Rq WCEyiRspJhO1p7A7Ag6Gf 8FlnbzdDPC7XUjzJTT8Zu UtLnLpReA2D9UsPwg4KSR abYgrTY6kW0Bm GJMpyofnedaspEA8WDHbN XOwzX67cVVrUHwzPz1hm1 V1s504UPDlDKXbqJ54Qy2 udDogMTBwdCBU hT9jlpyzj6lpenbzXpKdT PDtGDp7UYs8HAOdyDqeCj HaFTJ3NzO1ZUW6cPQlpX4 nfYszctwktZ9r Oyc+U24soK1dDRJ9RMM4b roeRPRgqxRlHP40YY93D3 RyPjwvdGFibGU+PGRpdiB enRaxPL6zBjUu z0usj0JoAZqoB5YvDHWgH NmpZzb0HOPqMHE7fRV3oK 0wDLPvQPxbu8E1zBA2C8W dhnZztx5ot6wa EASkITcwI91akENol7E7E ZGvrOL6NIGrcXdjSbBqiN 93Oyc+KGJjlAjhx3IhJhm un7zda5nhbKj7 UmKmHOOlkbFzmKyaHBO9t 8EhQa81I33vKEbdNSKnKZ SzXPBuNYTzbHzopl5muY0 wIi8+PGNvbCB3 gFB4xK6eEUUpBiN8AQkfJ 566MfKndCFjJooak1kzg2 jbmTm2AuOeHEBlcbGquZu lYOJ0k9HsBi94 M04uXJtmDXXfSALhOHNpH RMqqAowyd1zcZ2nSr3+PC 4aa6abmh68jM45tYP+PHR zBIB1nPgqNHmz ZFGahU7jZDngApJ9SGCoA rHmqP53oOGfCOnlPq6mqQ khdMbuMA0yNQDykdebq84 7ZfRjd7xpGFAa aUQrVXojXBJ2U92lw5Z7U AJbOLZkQPA7dUM2jB7knP lnbjogbGVmdDsgdmVydGl mLYssZFrfG300 IHRvcDsnPlBhdGllbnQgT sZkNOw0Y1XkDlb9VIIupE nrQE3ecAPnMFvtNe0ygRl xlOeaJT5nCZLk enise961OsNqh0bzHQAsr UTtXCycXQV9A13wi7F8WF NlJISaFGL0iIV4qR3biAz nbjogbGVmdDsg suXbsIeyIGgbTLuzX581B HRvcDsnPkJpcnRoIERhdG G2UL95OK36cLNah8U8hVZ 7Y4YlBNMekneh zhsrwHQ1MBIjKQCkgC82M g9vyQdkXh3tCUOjSNX3KY VnhTHdC2AbfE7uOjLtDQA uYNVsI4OggVVp UIfvD324GKoqFdH5PVAdr bLfB1VcUOYguDslUwW7m2 E2Sa7VQ5O5BF22UH10ePC nd1O8fDC2C0Sf GZPenhtxxwbjzSM1IAFqX KKayU43Pf7pqOegBw6cFU XdITH7XOQptENvY1XrkF2 yOiAjMDAwMDAw N1MoaFQvZUrhH063FHhiO yU3BBVkciXvR1XoOEIeeV iuCyQ2v7C2Jg5VPSg8WH9 6XU25dHHgb4A9 cJK1Z8MlLDFfcukgzebug VY3XNGlOZPhyQ49Ce6koN xiKj2bXWEzXNG8SGJcjIG zF6ObdV1pUtDe LRHqUWNaT7YllHAwDDwbY 476LNioYoU8ZYSonrOtL7 WhTKVzwIftThS0u9E1Pc9 BFBXiQT25YIT4 dWO2XC79ZV54F8GwGvnfe GFibGU+PHRhYmxlIHdpZH RoPScxMDAlJyBzdHlsZT0 eQi2eKLXgWHHv iGbvxIWvJbJbh8fmSNSoX VbdBG3pjZseC1VgrWZ6MI Izd8v8Vf99P73yH3AumQQ +ZCHaoDN9aLO4 lU1bQvMdIlJ7RCboK911C wJeuSGnJmxpg6owh1qouS s2GmQ0WIAizvHnvKzmWMY 4y7MzJz97C73p IHdpZHRoPSIxNSUiIHZhb Gfavu4ukA6kNe2+PGNvbC T3hUI1cQ5nXoGfKvV1IRf sG673DvBiaUXf Cnoxl3dks5byoNx3IwSsD LImxgKsyWaaEMI6o5PuTg 82O6JhfQwmy8UqRzw8dp3 6mKGjd0D4kOW0 U6CuINMfizjyhCOrvThsQ T2yUYLgipwlDJIphA9oET IvD1h0MnNlFxM2UMicR1U koeB7OIMifMNd YJwjUIF9A31xg7X8TKQrE FBdCHB1lFF4iJ6umHtiuq ogbGVmdDsgdmVydGljYWw eZZwjZ811SKLk wDxgMOYudU4tDRDmnUCfi QdaKX8lKIGjuuokKcTCJJ osIERFTkEgTTwvdGQ+PHR lSZF3uKsvQNey QMKjbH7zCUDcN8u5UmXzN gU1FFimH4YvJLJkriqcKv 64kB1vTjQlVkF3GNnfP0K wizS7RWItaAZn CRqhCMR8S39zs7C2AAAzU BLrQDP3gHQ2wA8sdWacqf ogbGVmdDsgdmVydGljYWw jSVwyF741UNIu tPlyQkP4GaR3LkJ6TiX4Y 6FuMku7QVDwnXcdSE0bdE VgXIswQb5dpQnoeIoyUK8 wNTBpbjtwYWRk hE5sTEXcwPLgjNwsCH0nI VYckojhu145QtJcXEH5HU XlzVTaK1AdiU5hTpDaBUO hSPKhC8CvzKTi MIwsL431PGbzOlY7JCVzu rBsC9DfQHGlmEzkEvP4f4 J4Oo03VDSNJJZaduxryQP +FERgAWQ3pZuq MUnwLJNcjP1kAJKgG6o7T vDaWdU6WZmgI2GlZZYmee cqTk09cS5oMxRuWaZ3EXf uC3BncyF8THDo uXLjQWzqEGF2G35od0L3K VUsKBJxWIH0iNS2wR8ddC lnbjogbGVmdDsgdmVydGl aABoiLWhkM623 IHRvcDsnPkZlbWFsZTwvd GQ+AMFiRVS4uSdhBUiiOS GkxA1hLZIgK4z2ZbBmLnR 3HJarX7FuLTVe nwmdSu00oZ6oTpDvMhG4Z ZlqX9WtlcU6MZPiiVOxRP lmTFF2Y53hx6N4OKDxNTU tMFR3aWR2kD5t bGlnbjogbGVmdDsgdmVyd SebFGilJJhpH218ADHdrX xkHbbrQhLPeo0gFV3nDms vdGQ+FI89qa38 A8UzRqojCuy1NAUpHGY1k AM6cD8kVDMwMBarl7P7oT T4I1WdoxSran2yt4xgWSB dRFjgS83hxUKu b9D0XVZuwYZ2GZNmxGhbK nBxcL32Egu+PGNvbGdyb3 MfIkfov8utu7olnIl7FbX wJSIgdmFsaWdu VCO5a9TtHu67V24nMEoyA HRoPSIzMCUiIHZhbGlnbj 2cpA1fYu0+MJQjuXX6bQL 3mX2sCdArEsH8 EWyfH274UqVefVMwHyflf 4nqh5xvkVp3WnHnHSUmfl JpkTpgESQ1j5TeWe50F3V juZnpp8CiPxf2 uw20tUOwn2C3kCU0U1HjY DYmzyizqMYliZrxNJ3vLF DnxckfPDJpmK8eQMHyA2n 7IuJgNqR4IRqs R0LlvzR0TDJuhVIlDDBur UJRbV6aesvme4araphqIm HaQLMtBWf8ZMb4LESgyWs fObJoINW7VaK1 LHI2uIQumH3vhSsbtvxrt G9wOyc+SKi8b2yxbXNoDW 7ssTN7LE28HI81eTUlu2F 8gJV2X0EyPYWi kkorbhbqcWB6FKMrQKGgd T14Ix0kaFibRa5kBLOmVF F2BYVzcWKuV9UxxW4nRsQ kASWeTHRyD3Ah lRJgNCqeE072XCthXqR8V HNtghAqT9JaLUWtpCtaKa Y0k4G4Of3XEC16HS26VM0 4hBHxm5K3iYG7 V4LsHKAhunhamjnrgET2W PYrGAMjwT60Ea0zzNucPq 2zRYOnUKA3FUDmrTKgY5G izI8mDjRzEDQp AIDqQ6LenCPjEQycE947U GuoAqQ5DKCpoiDmK5GlOA QfoGsaLuX7c2D6Lz5NQx6 3MX94YE40gIXu v0Q2dSJ3R2RjHUEgmwktf wftvLK6RNJzOMRhdJ45Aq 7dtZlxKm1vPPDvKFR7QSX yeAVzM9SmjX2n KgNkHNFdOHUlL7OmcGMsM ZmfW945EGevBuR4YEEkon YaB9FkHBKosZtvWbB7b1P 5Nj1UPVzdenj8 T2IkEqdgkAB+UF14DQVtV Z97vANluNVmv8njfVe8Ri UkLZHsXKM0yDtiZLksj3A vTTYiT02wpSRj c2U6 (more content not included)... Normal [facility] Reminderson 07-11-2021 Reminders - From: Kelly Dominguez MA To: EU - Clinical; Sent: 07/09/2021 13:51:55 EDT Show up: 07/11/2021 13:51:00 EDT Subject: Urine Culture Reminder/Recall Urine Culture addressed. DAREK Normal [facility] Ambulatory Visit Summaryon 0 07-09-2021 Ambulatory Visit Summary 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1970 Visit Date:07/09/2021 Ambulatory Visit Instructions Your Diagnosis Recurrent UTI Weak urine stream Urgency incontinence Microhematuria Tests Performed Urnls Dip Stick Auto w/o Microscopy POC 95209 Your Care Team Attending Physician - ANGELITA PAEZ PA-C Primary Care Physician - LON IBRAHIM DO This Is Your Medications List ciprofloxacin (Cipro 500 mg Tab) Contact prescribing physician if questions or concerns acetaminophen apixaban (Eliquis 5 mg oral tablet) biotin bisacodyl calcium carbonate cephalexin (Keflex 250 mg Cap) cholecalciferol (Vitamin D 1000 intl units Tab) cranberry (Cranberry) docusate (docusate sodium) gabapentin gabapentin (gabapentin 400 mg Cap) metoprolol (metoprolol 25 mg ER Tab) multivitamin (B Complex 100) multivitamin (Multi Vitamin+) omega-3 polyunsaturated fatty acids (Defiance-3) [Image Removed: STOP]Stop taking these medications oxybutynin (oxybutynin 5 mg ER Tab) Procedures Performed TURBT - Transurethral resection of bladder tumor (03/11/2019), 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 Discharge Vitals Heart Rate (Peripheral) 79 Blood Pressure 125/89 Height 187 cm Height 187.0 cm Weight 110 kg Weight 110.0 kg BMI 31.46 What to do next You Need to Schedule the Following Appointments Follow Up with ANGELITA PAEZ PA-C, URL When: Where: [address] [place] [address] Medications What How Much When Why Instructions New ciprofloxacin (Cipro 500 mg Tab) 1 Tablets By Mouth As Directed Take 1 tablet day before procedure, then 1 tablet day of procedure after procedure. Pickup at [facility]/pharmacy #[id number] Unchanged acetaminophen Contact prescribing physician if questions or concerns Unchanged apixaban (Eliquis 5 mg oral tablet) 1 Tablets By Mouth 2 times a day Contact prescribing physician if questions or concerns Unchanged biotin By Mouth At bedtime Contact prescribing physician if questions or concerns Unchanged bisacodyl Contact prescribing physician if questions or concerns Unchanged calcium carbonate Contact prescribing physician if questions or concerns Unchanged cephalexin (Keflex 250 mg Cap) 1 Capsules By Mouth Every day Recurrent UTI Contact prescribing physician if questions or concerns Unchanged cholecalciferol (Vitamin D 1000 intl units Tab) 1 Tablets By Mouth Every day Contact prescribing physician if questions or concerns Unchanged cranberry (Cranberry) Contact prescribing physician if questions or concerns Unchanged docusate (docusate sodium) Contact prescribing physician if questions or concerns Unchanged gabapentin 300 Milligram By Mouth 2 times a day Contact prescribing physician if questions or concerns Unchanged gabapentin (gabapentin 400 mg Cap) 90 Unspecified/ Unknown, TAKE 1 CAPSULE BY MOUTH AT BEDTIME Contact prescribing physician if questions or concerns Unchanged metoprolol (metoprolol 25 mg ER Tab) By Mouth Every day Contact prescribing physician if questions or concerns Unchanged multivitamin (B Complex 100) sacod Contact prescribing physician if questions or concerns Unchanged multivitamin (Multi Vitamin+) Contact prescribing physician if questions or concerns Unchanged omega-3 polyunsaturated fatty acids (Defiance-3) Contact prescribing physician if questions or concerns Pharmacy Information [facility]/pharmacy #[id number]: [address], [place] [id number] [phone] What How Much When Why Comments Stop Taking oxybutynin (oxybutynin 5 mg ER Tab) 1 Tablets By Mouth Every day Urge incontinence Urine frequency Recurrent UTI Microscopic hematuria Test Results Urnls Dip Stick Auto w/o Microscopy POC 65696 (07/09/2021) Bilirubin Urine Dipstick - Negative Blood Urine Dipstick - 3+ Large Glucose Urine Dipstick - Negative Ketones Urine Dipstick - Negative Leukocytes Urine Dipstick - 1+ Small Nitrite Urine Dipstick - Negative Protein Urine Dipstick - 1+ (30 mg/dl) Specific [place] Urine Dipstick - 1.015 Urine Appearance Urine Dipstick - Clear Urine Color Urine Dipstick - Yellow Urobilinogen Urine Dipstick - Normal 0.2-1 EU/dl pH Urine Dipstick - 6 Medications and Immunizations Administered Not Given SARS-CoV-2 mRNA (tozinameran 5y-11y) vac, Postpone due to refusal Allergies Tape (Rash) Problems Ongoing - Any problem that you are currently receiving treatment for. Anticoagulated Anxiety disorder Apnea, sleep Bladder diverticulitis Bladder mass Cervical spine disease Chronic lower back pain Depression Detrusor and sphincter dyssynergia Diverticulosis GERD (gastroesophageal reflux disease) Gross hematuria Hydronephrosis of right kidney Incontinence without sensory awareness Lymphedema Microhematuria Morbid obesity MRSA (methicillin resistant staph aureus) culture (more content not included)... Normal [facility] Patient Educationon 07-10-19 Patient Education Obstetrics and Gynecology Overactive Bladder, Adult Overactive bladder refers to a condition in which a person has a sudden need to pass urine. The person may leak urine if he or she cannot get to the bathroom fast enough (urinary incontinence). A person with this condition may also wake up several times in the night to go to the bathroom. Overactive bladder is associated with poor nerve signals between your bladder and your brain. Your bladder may get the signal to empty before it is full. You may also have very sensitive muscles that make your bladder squeeze too soon. These symptoms might interfere with daily work or social activities. What are the causes? This condition may be associated with or caused by: ? Urinary tract infection. ? Infection of nearby tissues, such as the prostate. ? Prostate enlargement. ? Surgery on the uterus or urethra. ? Bladder stones, inflammation, or tumors. ? Drinking too much caffeine or alcohol. ? Certain medicines, especially medicines that get rid of extra fluid in the body (diuretics). ? Muscle or nerve weakness, especially from: ? A spinal cord injury. ? Stroke. ? Multiple sclerosis. ? Parkinson's disease. ? Diabetes. ? Constipation. What increases the risk? You may be at greater risk for overactive bladder if you: ? Are an older adult. ? Smoke. ? Are going through menopause. ? Have prostate problems. ? Have a neurological disease, such as stroke, dementia, Parkinson's disease, or multiple sclerosis (MS). ? Eat or drink things that irritate the bladder. These include alcohol, spicy food, and caffeine. ? Are overweight or obese. What are the signs or symptoms? Symptoms of this condition include: ? Sudden, strong urge to urinate. ? Leaking urine. ? Urinating 8 or more times a day. ? Waking up to urinate 2 or more times a night. How is this diagnosed? Your health care provider may suspect overactive bladder based on your symptoms. He or she will diagnose this condition by: ? A physical exam and medical history. ? Blood or urine tests. You might need bladder or urine tests to help determine what is causing your overactive bladder. You might also need to see a health care provider who specializes in urinary tract problems (urologist). How is this treated? Treatment for overactive bladder depends on the cause of your condition and whether it is mild or severe. You can also make lifestyle changes at home. Options include: ? Bladder training. This may include: ? Learning to control the urge to urinate by following a schedule that directs you to urinate at regular intervals (timed voiding). ? Doing Kegel exercises to strengthen your pelvic floor muscles, which support your bladder. Toning these muscles can help you control urination, even if your bladder muscles are overactive. ? Special devices. This may include: ? Biofeedback, which uses sensors to help you become aware of your body's signals. ? Electrical stimulation, which uses electrodes placed inside the body (implanted) or outside the body. These electrodes send gentle pulses of electricity to strengthen the nerves or muscles that control the bladder. ? Women may use a plastic device that fits into the vagina and supports the bladder (pessary). ? Medicines. ? Antibiotics to treat bladder infection. ? Antispasmodics to stop the bladder from releasing urine at the wrong time. ? Tricyclic antidepressants to relax bladder muscles. ? Injections of botulinum toxin type A directly into the bladder tissue to relax bladder muscles. ? Lifestyle changes. This may include: ? Weight loss. Talk to your health care provider about weight loss methods that would work best for you. ? Diet changes. This may include reducing how much alcohol and caffeine you consume, or drinking fluids at different times of the day. ? Not smoking. Do not use any products that contain nicotine or tobacco, such as cigarettes and e-cigarettes. If you need help quitting, ask your health care provider. ? Surgery. ? A device may be implanted to help manage the nerve signals that control urination. ? An electrode may be implanted to stimulate electrical signals in the bladder. ? A procedure may be done to change the shape of the bladder. This is done only in very severe cases. Follow these instructions at home: Lifestyle ? Make any diet or lifestyle changes that are recommended by your health care provider. These may include: ? Drinking less fluid or drinking fluids at different times of the day. ? Cutting down on caffeine or alcohol. ? Doing Kegel exercises. ? Losing weight if needed. ? Eating a healthy and balanced diet to prevent constipation. This may include: ? Eating foods that are high in fiber, such as fresh fruits and vegetables, whole grains, and beans. ? Limiting foods that are high in fat and processed sugars, such as fried and sweet foods. General instructions ? Take ove (more content not included)... Normal [facility] Urology Office/Clinic Noteon 07-09-2021 Urology Office/Clinic Note Chief Complaint 3 month f/u HPI Staff Carrie is a 50 y/o female here for a 3 month f/u. 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 Pt is no longer taking oxybutynin Dysuria: _denies Incomplete bladder emptying: _denies Hematuria: _denies Frequency: _roughly every hour and a half Urgency: _yes Nocturia: _2x Stream: _slower stream Leaking: _yes Post void dripping: _yes Wearing pads/ Depends: _yes changed multiple times a day Urge incontinence: _yes Stress incontinence: _yes Incontinence without Sensory Awareness: _yes Abdominal pain: _denies Flank pain: _denies Sexual complaints: _ History of Present Illness staff HPI reviewed and agree. Review of Systems no fever, chills, malaise, myalgia. no rash/lesions. no chest pain, palpitations, or SOB. no abdominal pain, nausea, vomiting. no unilateral calf swelling, redness, pain Physical Exam Vitals & Measurements HR: 79(Peripheral) BP: 125/89 HT: 187 cm HT: 187.0 cm WT: 110 kg WT: 110.0 kg BMI: 31.46 General: nontoxic, NAD Mouth: moist mucosa Lungs: normal respiratory effort Cardio: regular rate, good distal perfusion Abdomen: nondistended, no suprapubic distention or tenderness, no CVA tenderness Skin: No rashes or suspicious lesions Assessment/Plan 1. Recurrent UTI (N39.0: Urinary tract infection, site not specified) Pt stated she feels as if she currently has a UTI. Stated that her urine is a dark color and a little cloudy. Denies burning. no odor noted. has been taking her suppressive keflex. UA today shows large blood and small AGUSTIN. Will send pt UA for culture. Ordered: Urnls Dip Stick Auto w/o Microscopy POC 24033 2. Weak urine stream (R39.12: Poor urinary stream) She has a weak stream, and some straining and hesitancy. Pt had cysto U/D July 2020. feels things have worsened over the past couple months. Will schedule pt for another cysto UD. Will schedule Cysto with UD. The procedure risks, benefits, details, and treatment alternatives have been discussed with the patient. These include bleeding, infection, recurrent scar in over 50%, need for repeat dilation or other procedures, no symptom relief with dilation, among others. Full informed consent has been obtained. Will order Local anesthesia. 3. Urgency incontinence (N39.41: Urge incontinence) c/o daytime freq, urgency, bladder spasms, nocturia x2, changes pads multiple times daily Tried oxybutynin 5mg but stopped it because she felt it made it difficult to void. 4. Microhematuria (R31.29: Other microscopic hematuria) neg cysto w retrogrades Mar 2019. neg cysto Jul 2020. large on UA today. has upcoming cysto/UD. Follow-up With When Contact Information ANGELITA PAEZ PA-C, URL [address] [place] [place] [address] Additional Instructions: Patient Education Overactive Bladder, Adult I, Janina Rosa, personally scribed for Angelita Paez PA-C on 07/09/2021 13:34:14. . Documentation recorded by the scrsivakumar Rosa accurately reflects the services(s) I performed and decisions made by me. Authenticated by Angelita Paez PA-C on 07/09/2021 13:49:23. Problem List/Past Medical History Ongoing Anticoagulated Anxiety disorder Apnea, sleep Bladder diverticulitis Bladder mass Cervical spine disease Chronic lower back pain Depression Detrusor and sphincter dyssynergia Diverticulosis GERD (gastroesophageal reflux disease) Gross hematuria Hydronephrosis of right kidney Incontinence without sensory awareness Lymphedema Morbid obesity MRSA (methicillin resistant staph aureus) culture positive Neurogenic bladder Recurrent UTI Retention of urine Stress incontinence Tachycardia Urgency incontinence Urinary retention Historical No qualifying data Procedure/Surgical History TURBT - Transurethral resection of bladder tumor (03/11/2019), 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 Medications acetaminophen B Complex 100, sacod biotin, Oral, Bedtime bisacodyl calcium carbonate Cranberry docusate sodium Eliquis 5 mg oral tablet, 5 mg= 1 tab(s), Oral, BID gabapentin, 300 mg, Oral, BID gabapentin 400 mg Cap Keflex 250 mg Cap, 250 mg= 1 cap(s), Oral, Daily, 3 refills metoprolol 25 mg ER Tab, Oral, Daily Multi Vitamin+ Defiance-3 oxybutynin 5 mg ER Tab, 5 mg= 1 tab(s), Oral, Daily, Not taking Vitamin D 1000 intl units Tab, 1000 International_Unit= 1 tab(s), Oral, Daily Allergies Tape (Rash) Social History Tobacco Never (less than 100 in lifetime) Tobacco Use:., 07/16/2020 Never (less than 100 in lifetime) Tobacco Use:., 04/09/2020 Never (less than 100 in lifetime) Tobacco Use:. Never Smokeless Tobacco Use:., 11/16/2018 Family History Cardiac arrhythmia: Mot (more content not included)... Normal [facility] Comment on above: Result Comment: Elec tronically Signed By: ANGELITA PAEZ PA-C\.br\Date and Time Signed: 07/09/21 13:49 EDT\.br\Electronically Co-Signed By: Janina Rosa\.br\Date and Time Co-Signed: 07/09/21 13:34 EDT Operative Reporton Operative Report MR#: [id number] [facility] Pt. Name: Carrie Fletcher Room #: D5 Discharge 03/09/2020 Date: Birthdate: 1970 OPERATIVE REPORT DATE OF SURGERY: 03/12/2020 SURGEON: Rehan Brown M.D. PREOPERATIVE DIAGNOSIS: Acute cholecystitis status post percutaneous drainage of gallbladder. POSTOPERATIVE DIAGNOSIS: Acute cholecystitis status post percutaneous drainage of gallbladder. PROCEDURE: DaVinci assisted laparoscopic cholecystectomy. ESTIMATED BLOOD LOSS: Minimal. COMPLICATIONS: None. SPECIMENS REMOVED: Gallbladder. PATIENT CONDITION: Stable. ANESTHESIA: General anesthesia. DRAINS PLACED: None. PROCEDURE NOTE: The patient was seen in our General Surgery Clinic. She is status post percutaneous drainage of the gallbladder for acute cholecystitis. The patient had clearance from the supervisor phosphatic fertilizer and she was scheduled for DaVinci assisted cholecystectomy. The patient was identified in the holding area by me. She was then taken to the operating room and kept in supine position. General anesthesia was given and the patient was intubated. The patient received 3 g of Ancef for antibiotic prophylaxis. EPC cuffs were placed in both the lower extremities for mechanical DVT prophylaxis. A Jansen catheter was placed into the bladder. The previously placed cholecystostomy drain tube was removed. The abdomen was prepped using ChloraPrep solution and draped in the sterile fashion. After time-out, a skin incision was made in the left upper quadrant and a 10 mm balloon trocar was placed under direct vision into the peritoneal cavity. Pneumoperitoneum of 15 mmHg was created. We then proceeded to place 8 mm trocar in the supraumbilical area, 8 mm trocar in the left side of the supraumbilical trocar, and two 8 mm trocars, 1 in the midclavicular line and 1 in the anterior axillary line on the right side along the line of the umbilical trocar. The patient was then kept in reverse Trendelenburg position and the right side up. The DaVinci robot was docked. The gallbladder was found to be distended and there were omental adhesions to the gallbladder wall, which was taken down using hook electrocautery. The fundus was then held with the help of a grasper and retracted in the cephalad direction. I then started dissecting around the gallbladder in the hepatic cystic triangle taking down the adhesions. There was severe inflammatory reaction from the previous acute cholecystitis. The cystic duct was skeletonized. The firefly was used to identify the cystic duct and the common bile duct. At this point, I found that the gallbladder was folded onto itself. The cystic duct was anterior and the fundus was found to be posteriorly stuck to the gallbladder fossa. I then carefully dissected the fundus of the gallbladder from the gallbladder fossa to make sure it was not a double gallbladder. There was only 1 cystic duct and cystic artery. After confirming this, I clipped the cystic duct twice proximally, once distally using Hem-o-kortney clips and divided sharply with the help of Endo Giselle. I then clipped the cystic artery twice proximally, once distally with the help of Hem-o-kortney clips and divided sharply with the help of the hook electrocautery. The gallbladder was then taken out of the gallbladder fossa using hook electrocautery. It was then kept in an endobag and delivered through the previously placed 10 mm trocar site and sent for histopathology. After making sure that the hemostasis was completely adequate, I proceeded to release the pneumoperitoneum. The fascia of the 10 mm trocar site was closed using 0 Vicryl sutures. The skin incisions were closed using 4-0 Monocryl subcuticular sutures. After removing all of the trocars. Skin glue was applied. The patient was then extubated and taken back to the PACU where she was stable at the end of the procedure. Electronically Signed by: Rehan Brown M.D. 03/15/2020 05:38 A Rehan Brown M.D. Date Dict: 03/14/2020/10:46 A/Rehan Brown M.D. Date Trans: 03/14/2020 09:53 P/mmo [id number] cc: Lon Ibrahim M.D. [facility] [address] [facility] [address] [place] [facility] Operative Report MR#: [id number] [facility] Pt. Name: Carrie Fletcher Room #: 4AB [id number] Discharge 03/13/2020 Date: Birthdate: 1970 OPERATIVE REPORT DATE OF SURGERY: 03/12/2020 SURGEON: Rehan Brown M.D. PREOPERATIVE DIAGNOSIS: Acute cholecystitis status post percutaneous drainage of gallbladder. POSTOPERATIVE DIAGNOSIS: Acute cholecystitis status post percutaneous drainage of gallbladder. PROCEDURE: DaVinci assisted laparoscopic cholecystectomy. ESTIMATED BLOOD LOSS: Minimal. COMPLICATIONS: None. SPECIMENS REMOVED: Gallbladder. PATIENT CONDITION: Stable. ANESTHESIA: General anesthesia. DRAINS PLACED: None. PROCEDURE NOTE: The patient was seen in our General Surgery Clinic. She is status post percutaneous drainage of the gallbladder for acute cholecystitis. The patient had clearance from the supervisor phosphatic fertilizer and she was scheduled for DaVinci assisted cholecystectomy. The patient was identified in the holding area by me. She was then taken to the operating room and kept in supine position. General anesthesia was given and the patient was intubated. The patient received 3 g of Ancef for antibiotic prophylaxis. EPC cuffs were placed in both the lower extremities for mechanical DVT prophylaxis. A Jansen catheter was placed into the bladder. The previously placed cholecystostomy drain tube was removed. The abdomen was prepped using ChloraPrep solution and draped in the sterile fashion. After time-out, a skin incision was made in the left upper quadrant and a 10 mm balloon trocar was placed under direct vision into the peritoneal cavity. Pneumoperitoneum of 15 mmHg was created. We then proceeded to place 8 mm trocar in the supraumbilical area, 8 mm trocar in the left side of the supraumbilical trocar, and two 8 mm trocars, 1 in the midclavicular line and 1 in the anterior axillary line on the right side along the line of the umbilical trocar. The patient was then kept in reverse Trendelenburg position and the right side up. The Suite101inci robot was docked. The gallbladder was found to be distended and there were omental adhesions to the gallbladder wall, which was taken down using hook electrocautery. The fundus was then held with the help of a grasper and retracted in the cephalad direction. I then started dissecting around the gallbladder in the hepatic cystic triangle taking down the adhesions. There was severe inflammatory reaction from the previous acute cholecystitis. The cystic duct was skeletonized. The firefly was used to identify the cystic duct and the common bile duct. At this point, I found that the gallbladder was folded onto itself. The cystic duct was anterior and the fundus was found to be posteriorly stuck to the gallbladder fossa. I then carefully dissected the fundus of the gallbladder from the gallbladder fossa to make sure it was not a double gallbladder. There was only 1 cystic duct and cystic artery. After confirming this, I clipped the cystic duct twice proximally, once distally using Hem-o-kortney clips and divided sharply with the help of Endo Giselle. I then clipped the cystic artery twice proximally, once distally with the help of Hem-o-kortney clips and divided sharply with the help of the hook electrocautery. The gallbladder was then taken out of the gallbladder fossa using hook electrocautery. It was then kept in an endobag and delivered through the previously placed 10 mm trocar site and sent for histopathology. After making sure that the hemostasis was completely adequate, I proceeded to release the pneumoperitoneum. The fascia of the 10 mm trocar site was closed using 0 Vicryl sutures. The skin incisions were closed using 4-0 Monocryl subcuticular sutures. After removing all of the trocars. Skin glue was applied. The patient was then extubated and taken back to the PACU where she was stable at the end of the procedure. Electronically Signed by: Rehan Brown M.D. 03/15/2020 05:38 A Rehan Brown M.D. Date Dict: 03/14/2020/10:46 A/Rehan Brown M.D. Date Trans: 03/14/2020 09:53 P/patriziao [id number] cc: Lon Ibrahim M.D. [address] [place] [address] Normal The [facility] BASIC METABOLIC PANELon Calcium [Mass/Vol] 9.0 mg/dL Normal 8.6-10.3 [facility] Comment on above: Order Comment: No: D o not add to previous draw Performed By: #### 1 4530, 04269, 10537 #### [facility] [address] [place] [address], [facility] Chloride [Moles/Vol] 100 mmol/L Normal 98-107 The [facility] Comment on above: Order Comment: No: D o not add to previous draw Performed By: #### 1 0070, 26209, 85400 #### [facility] [address] [place] [address], [facility] CO2 [Moles/Vol] 30 mmol/L Normal 21-31 [facility] Comment on above: Order Comment: No: D o not add to previous draw Performed By: #### 1 0070, 70348, 53677 #### [facility] [address] [place] [address], [place] Creatinine [Mass/Vol] 0.57 mg/dL Low 0.60-1.20 [facility] Comment on above: Order Comment: No: D o not add to previous draw Performed By: #### 1 0070, 69167, 15817 #### [facility] [address] [place] [address], [place] GFR/1.73 sq M.predicted among blacks MDRD (S/P/Bld) [Vol rate/Area] mL/min/{1.73_m2} Normal >60 [facility] Comment on above: Order Comment: No: D o not add to previous draw Performed By: #### 1 0070, 31347, 56712 #### [facility] [address] [place] [address], [place] GFR/1.73 sq M.predicted among non-blacks MDRD (S/P/Bld) [Vol rate/Area] mL/min/{1.73_m2} Normal >60 The [facility] Comment on above: Order Comment: No: D o not add to previous draw Performed By: #### 1 0, 58641, 20155 #### [facility] [address] [place] [address], [place] Glucose [Mass/Vol] 120 mg/dL High 70-100 [facility] Comment on above: Order Comment: No: D o not add to previous draw Performed By: #### 1 0070, 83220, 61403 #### [facility] [address] [place] [address], [place] Potassium [Moles/Vol] 3.8 mmol/L Normal 3.5-5.1 The [facility] Comment on above: Order Comment: No: D o not add to previous draw Performed By: #### 1 0070, 02603, 92008 #### [facility] [address] [place] [address], [facility] Sodium [Moles/Vol] 134 mmol/L Low 136-145 [facility] Comment on above: Order Comment: No: D o not add to previous draw Performed By: #### 1 0070, 82842, 86075 #### [facility] [address] [place] [address], [facility] Urea nitrogen [Mass/Vol] 15 mg/dL Normal 7-25 The [facility] Comment on above: Order Comment: No: D o not add to previous draw Performed By: #### 1 0070, 60862, 22067 #### [facility] [address] [place] [address], [facility] CBC COMPLETE BLOOD COUNTon 0 - Erythrocyte distribution width (RBC) [Ratio] 13.9 % Normal 11.5-15.0 The [facility] Comment on above: Order Comment: Evalu ate Performed By: #### 5 0608 ####[facility] [facility] [place] [address], [facility] Hematocrit (Bld) [Volume fraction] 36.9 % Normal 36.0-45.0 The [facility] Comment on above: Order Comment: Evalu ate Performed By: #### 5 0608 ####[facility] [facility] [place] [address], [facility] Hemoglobin (Bld) [Mass/Vol] 11.7 g/dL Low 12.0-15.0 The [facility] Comment on above: Order Comment: Evalu ate Performed By: #### 5 0608 ####[facility] [place] [address], [facility] MCH (RBC) [Entitic mass] 29.8 pg Normal 27.0-33.0 The [facility] Comment on above: Order Comment: Evalu ate Performed By: #### 5 0608 ####[facility] [place] [address], [facility] MCHC (RBC) [Mass/Vol] 31.7 g/dL Low 32.0-35.0 The [facility] Comment on above: Order Comment: Evalu ate Performed By: #### 5 0608 ####[facility] MCV (RBC) [Entitic vol] 94.1 fL Normal 82.0-98.0 T he [facility] Comment on above: Order Comment: Evalu ate Performed By: #### 5 0608 ####[facility] Nucleated RBC/100 WBC (Bld) [Ratio] 0 % Normal 0-0 The [facility] Comment on above: Order Comment: Evalu ate Performed By: #### 5 0608 ####[facility] PLAT CNT 190 10*3/uL Normal 150-400 The [facility] Comment on above: Order Comment: Evalu ate Performed By: #### 5 0608 ####[place] [address] [address] RBC (Bld) [#/Vol] 3.92 10*6/uL Normal 3.80-5.00 The [facility] Comment on above: Order Comment: Evalu ate Performed By: #### 5 0608 ####[facility].[address] WBC (Bld) [#/Vol] 7.94 10*3/uL Normal 4.00-10.60 The [facility] Comment on above: Order Comment: Evalu ate Performed By: #### 5 0608 ####[facility] [place] [address] LIVER BATTERYon 03-13-2020 Albumin [Mass/Vol] 3.2 g/dL Low 3.5-5.7 The [facility] Comment on above: Order Comment: No: D o not add to previous draw Performed By: #### 1 0070, 91200, 00167 #### [facility] [address] [place] [address], [place] ALKALINE PHOSPH 34 IU/L Normal 34-104 [facility] Comment on above: Order Comment: No: D o not add to previous draw Performed By: #### 1 0070, 65299, 31375 #### [facility] [address] [place] [address], [place] ALT [Catalytic activity/Vol] 8 U/L Normal 7-52 The [facility] Comment on above: Order Comment: No: D o not add to previous draw Performed By: #### 1 0070, 61466, 44388 #### [facility] [address] [place] [address], [place] AST [Catalytic activity/Vol] 11 U/L Low 13-39 The [facility] Comment on above: Order Comment: No: D o not add to previous draw Performed By: #### 1 0, 07262, 39808 #### [facility] [address] [place] [address], [place] Bilirubin [Mass/Vol] 0.5 mg/dL Normal 0.3-1.0 The [facility] Comment on above: Order Comment: No: D o not add to previous draw Performed By: #### 1 0, 56741, 96294 #### [facility] [address] [place] [address], [place] Bilirubin.direct [Mass/Vol] 0.1 mg/dL Normal 0.0-0.2 The [facility] Comment on above: Order Comment: No: D o not add to previous draw Performed By: #### 1 0070, 67111, 23740 #### [facility] [address] [place] [address], [place] Protein [Mass/Vol] 6.1 g/dL Normal 6.0-8.3 The [facility] Comment on above: Order Comment: No: D o not add to previous draw Performed By: #### 1 0070, 19958, 45823 #### [facility] [address] MAGNESIUM BLOODon 03-13-2020 Magnesium [Mass/Vol] 1.4 mg/dL Low 1.9-2.7 The [facility] Comment on above: Order Comment: No: D o not add to previous draw Performed By: #### 1 0070, 27453, 76376 #### [facility] [address] [facility] [address] POC GLUCOSE LABon 03-12-2020 Glucose [Mass/Vol] 81 mg/dL Normal 70-100 The [facility] Comment on above: Performed By: #### 8 5499 #### [facility] [address] [facility]. [address] *SARS-CoV-2 COVID-19on 03-09 Clinical Report Normal [facility] Comment on above: Result Comment: Spec imen: OROPHARYNGEAL Collected: 03/09/2020 09:30 Status: Final Last Updated: 03/09/2020 14:46 COVID-19 (Final) Not Detected The [employer] SARS-CoV-2 assay is a real-time (rt) reverse transcriptase (RT) polymerase chain reaction (PCR) test intended for the [employer] system. The SARS-CoV-2 primer and probe sets are designed to detect RNA from SARS-CoV-2 in a nasopharyngeal (FISH DRIER) or oropharyngeal (OP) swab from patients with signs and symptoms of infection who are suspected of COVID-19. Results are for the identification of SARS-CoV-2 RNA. The SARS-CoV-2 RNA is generally detectable in a nasopharyngeal or oropharyngeal swab during the acute phase of infection. The [employer] SARS-CoV-2 assay is intended for use by qualified and trained clinical laboratory personnel specifically instructed and trained in the techniques of real-time PCR and in vitro diagnostic procedures. The [employer] SARS-CoV-2 assay is only for use under the Food and Drug Administration Emergency Use Authorization. Testing is limited to laboratories certified under the Clinical Laboratory Improvement Amendments of 1988 (CLIA), 42 U.S.C. 263a, to perform high complexity tests. Performed By: #### 3 1792 #### [facility] [address] *MRSA/MSSA DNA NASALon 02-22 *MRSA/MSSA DNA NASAL Clinical Report: (D ) Specimen: NASAL SWAB Collected: 02/23/2020 11:12 Status: Final Last Updated: 02/23/2020 15:43 MSSA DNA (Final) Negative MRSA DNA (Final) Methicillin Resistant Staphylococcus aureus DNA Detected Normal The [facility] Comment on above: Performed By: #### 3 1595 ####[facility] APTTon 02-23-2020 aPTT Coag (Bld) [Time] 27.7 s Normal 25.0-35.0 Th e [facility] Comment on above: Result Comment: ALL RESULTS MUST BE INTERPRETED WITH RESPECT TO BLOOD DRAWING ARTIFACT OR DILUTION ERROR OF ANTICOAGULANT AT THE TIME OF SAMPLING. THE APTT SHOULD NOT BE USED TO MONITOR UNFRACTIONATED HEPARIN THERAPY, THIS LABORATORY NO LONGER HAS AN ESTABLISHED THERAPEUTIC RANGE BASED ON THE APTT. IT IS RECOMMENDED THAT THE UFH - HEPARIN ASSAY (ANTI-XA ACTIVITY) BE USED FOR THIS PURPOSE. Performed By: #### 5 6101, 31000 #### [facility] [address] BASIC METABOLIC PANELon 02-08 Calcium [Mass/Vol] 9.8 mg/dL Normal 8.6-10.3 [facility] Comment on above: Performed By: #### 0 0071 #### [facility] [address] Chloride [Moles/Vol] 104 mmol/L Normal 98-107 The [facility] Comment on above: Performed By: #### 0 0071 #### [facility] [address] [place] [address], [place] CO2 [Moles/Vol] 31 mmol/L Normal 21-31 The [facility] Comment on above: Performed By: #### 0 0071 #### [facility] [address] [place] [address], [place] Creatinine [Mass/Vol] 0.62 mg/dL Normal 0.60-1.20 The [facility] Comment on above: Performed By: #### 0 0071 #### [facility] [address] [place] [address], [place] GFR/1.73 sq M.predicted among blacks MDRD (S/P/Bld) [Vol rate/Area] mL/min/{1.73_m2} Normal >60 The [facility] Comment on above: Performed By: #### 0 0071 #### [facility] [address] [place] [address], [place] GFR/1.73 sq M.predicted among non-blacks MDRD (S/P/Bld) [Vol rate/Area] mL/min/{1.73_m2} Normal >60 The [facility] Comment on above: Performed By: #### 0 0071 #### [facility] [address] [place] [address], [place] Glucose [Mass/Vol] 88 mg/dL Normal 70-100 The [facility] Comment on above: Performed By: #### 0 0071 #### [facility] [address] [place] [address], [place] Potassium [Moles/Vol] 3.9 mmol/L Normal 3.5-5.1 The [facility] Comment on above: Performed By: #### 0 0071 #### [facility] [address] [place] [address], [place] Sodium [Moles/Vol] 140 mmol/L Normal 136-145 The [facility] Comment on above: Performed By: #### 0 0071 #### [facility] [address] [facility] [place] [address], [facility] Urea nitrogen [Mass/Vol] 21 mg/dL Normal 7-25 [facility] Comment on above: Performed By: #### 0 0071 #### [facility] [address] [facility] [place] [address], [facility] CBC W/DIFFon 02-23-2020 ABS IMM GRANS 0.0 10*3/uL Normal 0.0-0.2 The [facility] Comment on above: Performed By: #### 5 0103 ####[facility] [place] [address], [facility] ABS NEUTROPHILS 3.5 10*3/uL Normal 1.6-7.6 The [facility] Comment on above: Performed By: #### 5 0103 ####[facility] [place] [address], [facility] Basophils (Bld) [#/Vol] 0.0 10*3/uL Normal 0.0-0.2 The [facility] Comment on above: Performed By: #### 5 3 ####[facility] [place] [address], [facility] Basophils/100 WBC (Bld) 0.3 % Normal 0.0-1.0 T zack [facility] Comment on above: Performed By: #### 5 3 ####[facility] [facility] [place] [address], [facility] Eosinophils (Bld) [#/Vol] 0.1 10*3/uL Normal 0.0-0.5 The [facility] Comment on above: Performed By: #### 5 102 ####[facility] [place] [address], [facility] Eosinophils/100 WBC (Bld) 1.9 % Normal 0.0-6.0 The [facility] Comment on above: Performed By: #### 5 0103 ####[facility] [facility].[address] Erythrocyte distribution width (RBC) [Ratio] 14.1 % Normal 11.5-15.0 The [facility] Comment on above: Performed By: #### 5 0103 ####[facility] Hematocrit (Bld) [Volume fraction] 41.2 % Normal 36.0-45.0 The [facility] Comment on above: Performed By: #### 5 3 ####[facility] [facility].[address] Hemoglobin (Bld) [Mass/Vol] 12.9 g/dL Normal 12.0-15.0 The [facility] Comment on above: Performed By: #### 5 0103 ####[facility] [facility].[address] IMMATURE GRANS 0.3 % Normal 0.0-1.0 The [facility] Comment on above: Performed By: #### 5 3 ####[facility] [facility].[address] Lymphocytes (Bld) [#/Vol] 2.7 10*3/uL Normal 1.2-4.0 The [facility] Comment on above: Performed By: #### 5 3 ####[facility] [facility].[address] Lymphocytes/100 WBC (Bld) 40.1 % Normal 20.0-45.0 The [facility] Comment on above: Performed By: #### 5 3 ####[facility] [facility] [place] [address], [facility] MCH (RBC) [Entitic mass] 29.3 pg Normal 27.0-33.0 The [facility] Comment on above: Performed By: #### 5 0103 ####[facility] [facility].[address] MCHC (RBC) [Mass/Vol] 31.3 g/dL Low 32.0-35.0 [facility] Comment on above: Performed By: #### 5 0103 ####[facility] MCV (RBC) [Entitic vol] 93.6 fL Normal 82.0-98.0 T [facility] Comment on above: Performed By: #### 5 0103 ####[facility] Monocytes (Bld) [#/Vol] 0.4 10*3/uL Normal 0.1-1.0 The [facility] Comment on above: Performed By: #### 5 0103 ####[facility] MONOS 5.3 % Normal 5.0-12.0 [facility] Comment on above: Performed By: #### 5 0103 ####[facility] Neutrophils/100 WBC (Bld) 52.1 % Normal 40.0-72.0 [facility] Comment on above: Performed By: #### 5 3 ####[facility] [place] [address], [facility] Nucleated RBC/100 WBC (Bld) [Ratio] 0 % Normal 0-0 The [facility] Comment on above: Performed By: #### 5 3 ####[facility] [place] [address], [facility] PLAT CNT 272 10*3/uL Normal 150-400 The [facility] Comment on above: Performed By: #### 5 0103 ####[facility] [facility].[address] RBC (Bld) [#/Vol] 4.40 10*6/uL Normal 3.80-5.00 The [facility] Comment on above: Performed By: #### 5 0103 ####[facility] WBC (Bld) [#/Vol] 6.78 10*3/uL Normal 4.00-10.60 The [facility] Comment on above: Performed By: #### 5 0103 ####[facility] PROTHROMBIN TIMEon 1 INR Coag (PPP) [Relative time] 1.10 {INR} Normal 0.91-1.16 [facility] Comment on above: Result Comment: ACCC P RECOMMENDED INR FOR WARFARIN THERAPY ------- CONDITION INR PROPHYLAXIS OF VENOUS THROMBOSIS 2-3 (HIGH-RISK SURGERY) TREATMENT OF VENOUS THROMBOSIS 2-3 TREATMENT OF PULMONARY EMBOLISM 2-3 PREVENTION OF SYSTEMIC EMBOLISM: 2-3 ACUTE MYOCARDIAL INFARCTION TISSUE HEART VALVES VALVULAR HEART DISEASE ATRIAL FIBRILLATION RECURRENT SYSTEMIC EMBOLISM MECHANICAL HEART VALVE 2.5-3.5 FROM: ORAL ANTICOAGULANTS. MECHANISM OF ACTION, CLINICAL EFFECTIVENESS, AND OPTIMAL THERAPEUTIC RANGE. CHEST 1995;108:231S-246S. Performed By: #### 5 6101, 08792 #### [facility] [address] PT Coag (PPP) [Time] 14.3 s Normal 12.3-14.8 The [facility] Comment on above: Result Comment: ALL RESULTS MUST BE INTERPRETED WITH RESPECT TO BLOOD DRAWING ARTIFACT OR DILUTION ERROR OF ANTICOAGULANT AT THE TIME OF SAMPLING. Performed By: #### 5 6101, 32566 #### [address] T TUBE CHOLANGIOGRAMon 01-15 T TUBE CHOLANGIOGRAM [facility] Department of Radiology [address] [place] [address] [phone] Patient Name: 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 1970 Sex: F Age: Race: White Pt. Location: Patient Status: Ordered Date: 01/01/2020 9:45:00 AM Completed Date: 01/16/2020 11:33 AM Requesting Provider: REHAN BROWN Attending Provider: Report Copy To: Signs & Symptoms: K81.0 Acute cholecystitis I10 History: Comments: Evaluate Exam: T TUBE CHOLANGIOGRAM Cholangiogram via cholecystotomy tube: Iodinated contrast material was injected through the patient's cholecystotomy tube. The study outlined the patient's gallbladder. The cystic duct was opacified with some passage of contrast into the duodenum. Impression satisfactory positioning of cholecystostomy tube. Patency of the cystic duct with passage of contrast through cystic duct into duodenum. Electronically signed: Nicole Jackson. Transcribed by: [email or web address], User Resident: Electronically Signed by: NICOLE JACKSON @ 01/16/2020 01:36 PM Normal The [facility] Comment on above: Order Comment: Evalu ate XR CERVICAL SPINE (2-3 VIEWS )on 12-28-2018 XR CERVICAL SPINE (2-3 VIEWS) EXAMINATION: 3 XRAY VIEWS OF THE CERVICAL SPINE 12/28/2018 10:01 am COMPARISON: August 31, 2018 HISTORY: ORDERING SYSTEM PROVIDED HISTORY: S/P cervical spinal fusion TECHNOLOGIST PROVIDED HISTORY: s/p ACDF 08/30/18 Reason for Exam: Pt states cervical fusion August 2018, f/u Acuity: Unknown Type of Exam: Subsequent/Follow-up FINDINGS: Status post anterior discectomy and fusion at C4-5, unchanged in appearance. No acute osseous abnormality identified. Minimal anterolisthesis of C2. Advanced lower cervical facet arthropathy and mild multilevel disc space narrowing. No prevertebral soft tissue abnormality identified. Hardware fixation overlying the maxillary region and mandible again demonstrated. The lung apices are clear. IMPRESSION: Expected postoperative findings status post C4-5 ACDF. Interpreted by: Anurag Mcqueen MD Signed by: Anurag Mcqueen MD 12/28/18 Final result Normal [facility] Expected postoperative findings status post C4-5 ACDF. [facility] XRAY VIEWS OF THE CERVICAL SPINE 12/28/2018 10:01 am COMPARISON: August 31, 2018 HISTORY: ORDERING SYSTEM PROVIDED HISTORY: S/P cervical spinal fusion TECHNOLOGIST PROVIDED HISTORY: s/p ACDF 08/30/18 Reason for Exam: Pt states cervical fusion August 2018, f/u Acuity: Unknown Type of Exam: Subsequent/Follow-up FINDINGS: Status post anterior discectomy and fusion at C4-5, unchanged in appearance. No acute osseous abnormality identified. Minimal anterolisthesis of C2. Advanced lower cervical facet arthropathy and mild multilevel disc space narrowing. No prevertebral soft tissue abnormality identified. Hardware fixation overlying the maxillary region and mandible again demonstrated. The lung apices are clear. [facility] William, Mhpn Incoming Radiant Results From 3G Multimediacribe/Pacs - 12/28/2018 10:11 AM EST EXAMINATION: 3 XRAY VIEWS OF THE CERVICAL SPINE 12/28/2018 10:01 am COMPARISON: August 31, 2018 HISTORY: ORDERING SYSTEM PROVIDED HISTORY: S/P cervical spinal fusion TECHNOLOGIST PROVIDED HISTORY: s/p ACDF 08/30/18 Reason for Exam: Pt states cervical fusion August 2018, f/u Acuity: Unknown Type of Exam: Subsequent/Follow-up FINDINGS: Status post anterior discectomy and fusion at C4-5, unchanged in appearance. No acute osseous abnormality identified. Minimal anterolisthesis of C2. Advanced lower cervical facet arthropathy and mild multilevel disc space narrowing. No prevertebral soft tissue abnormality identified. Hardware fixation overlying the maxillary region and mandible again demonstrated. The lung apices are clear. IMPRESSION: Expected postoperative findings status post C4-5 ACDF. [facility] [place] Bacterial susceptibility lentz el by [facility] 11-27-2018 Bacterial susceptibility panel by Minimum inhibitory concentration (JAVIER) ORDERED BY: DR. SRIDHAR SOURCE: Urine Clean Catch COLLECTED: 11/27/18 08:42 ANTIBIOTICS AT [facility]ELIS[facility].: RECEIVED : 11/27/18 08:42 CALL doctor [id number] tel. , Culture, Urine FINAL 11/29/18 08:27 >100,000 CFU/ml Escherichia coli E. coli ANTIBIOTICS JAVIER Interp Amoxicillin/Clavulana te 4 S Ampicillin >=32 R Cefazolin <=4 S Ciprofloxacin >=4 R Gentamicin >=16 R Levofloxacin >=8 R Nitrofurantoin <=16 S Tobramycin 8 I Trimethoprim/Sulfamet hoxazole <=20 S S=SUSCEPTIBLE I=INTERMEDIATE R=RESISTANT Normal [facility] Comment on above: Performed By: #### 5 0545-3 #### [facility] [address] [place] [address] Culture, Urineon 11-27-2018 Culture, Urine ORDERED BY: DR. SRIDHAR SOURCE: Urine Clean Catch COLLECTED: 11/27/18 08:42 ANTIBIOTICS AT MELIS[facility].: RECEIVED : 11/27/18 08:42 CALL doctor [id number] tel. , Culture, Urine INTERIM 11/28/18 08:05 >100,000 CFU/ml Escherichia coli Sensitivity to follow Normal [facility] Comment on above: Performed By: #### C TAMIKARN #### [facility] [address] [facility] [address] Urinalysis, reflex to cultur tori 11-27-2018 Bilirubin Ql (U) Negative Normal Negative [facility] Comment on above: Order Comment: CALL doctor [id number] tel. , Performed By: #### U AR #### [facility] [address] [place] [address] Clarity (U) TURBID Abnormal Clear [facility] Comment on above: Order Comment: CALL doctor [id number] tel. , Performed By: #### U AR #### [facility] [address] [place] [address] Color (U) Yellow Normal Straw/Isabela [facility] Comment on above: Order Comment: CALL doctor [id number] tel. , Performed By: #### U AR #### [facility] [address] [place] [address] Glucose Ql (U) Negative Normal Negative [facility] Comment on above: Order Comment: CALL doctor [id number] tel. , Performed By: #### U AR #### [facility] [address] [place] [address] Hemoglobin Ql (U) LARGE Abnormal Negative [facility] Comment on above: Order Comment: CALL doctor [id number] tel. , Performed By: #### U AR #### [facility] [address] [place] [address] Ketones Ql (U) Negative Normal Negative [facility] Comment on above: Order Comment: CALL doctor [id number] tel. , Performed By: #### U AR #### [facility] [address] [place] [address] Leukocyte esterase Test strip Ql (U) LARGE Abnormal Negative [facility] Comment on above: Order Comment: CALL doctor [id number] tel. , Performed By: #### U AR #### [facility] [address] [place] [address] Nitrite Ql (U) Negative Normal Negative [facility] Comment on above: Order Comment: CALL doctor [id number] tel. , Performed By: #### U AR #### [facility] [address] [place] [address] pH (U) 8.0 [pH] Normal 5.0-9.0 [facility] Comment on above: Order Comment: CALL doctor [id number] tel. , Performed By: #### U AR #### [facility] [address] [place] [address] Protein Ql (U) 30 mg/dL Abnormal Negative [facility] Comment on above: Order Comment: CALL doctor [id number] tel. , Performed By: #### U AR #### [facility] [address] [place] [address] Specific gravity (U) [Rel density] 1.016 Normal 1.005-1.03 [facility] Comment on above: Order Comment: CALL doctor [id number] tel. , Performed By: #### U AR #### [facility] [address] [place] [address] Urine Reflexed to Culture YES Normal [facility] Comment on above: Order Comment: CALL doctor [id number] tel. , Performed By: #### U AR #### [facility] [address] [place] [address] Urobilinogen Qn (U) 1.0 {Marcela'U}/dL Normal < 2.0 [facility] Comment on above: Order Comment: CALL doctor [id number] tel. , Performed By: #### U AR #### [facility] [address] [place] [address] Urine Microscopicon 10-20-20 19 RBC (U) [#/Vol] 10-20 Abnormal 0-2 [facility] Comment on above: Order Comment: CALL doctor [id number] tel. , Performed By: #### U JAVIER #### [facility] [address] [place] [address] Bacteria LM.HPF (Urine sed) [#/Area] MANY Abnormal [facility] Comment on above: Order Comment: CALL doctor [id number] tel. , Performed By: #### U JAVIER #### [facility] [address] [place] [address] Urine Epithelial Cells Auto 0-2 Normal 0-5 [facility] Comment on above: Order Comment: CALL doctor [id number] tel. , Performed By: #### U JAVIER #### [facility] [address] [place] [address] Urine Hyaline Casts Auto 10-20 Normal 0-5 [facility] Comment on above: Order Comment: CALL doctor [id number] tel. , Performed By: #### U JAVIER #### [facility] [address] [place] [address] Urine WBC Auto >100 Critically high 0-5 [facility] Comment on above: Order Comment: CALL doctor [id number] tel. , Performed By: #### U JAVIER #### [facility] [address] [place] [id number] Basic Metab w/rfx MGon 09-06 (cont.) Normal [facility] Comment on above: Result Comment: Aver age GFR for 40-49 years old: 99 mL/min/1.73sq m Chronic Kidney Disease: <60 mL/min/1.73sq m Kidney failure: <15 mL/min/1.73sq m eGFR calculated using average adult body mass. Additional eGFR calculator available at: http://www.[employer]/multiple_crcl_2012.htm Performed By: #### B MPX, CDP ####[facility] [address] [place], [place] [phone] Director: Felipe Randall MD Anion gap [Moles/Vol] 8 mmol/L Low 9-17 [facility] Comment on above: Performed By: #### B MPX, CDP ####[facility] [address] [place], [place] [phone] Director: Felipe Randall MD Calcium [Mass/Vol] 8.8 mg/dL Normal 8.6-10.4 [facility] Comment on above: Performed By: #### B MPX, CDP ####[facility] Llpxzbycgneg2098 [place], [place] [id number])[phone] Director: Felipe Randall MD Chloride [Moles/Vol] 100 mmol/L Normal 98-107 [facility] Comment on above: Performed By: #### B MPX, CDP ####[facility] [address]xddbs[address] [place], [place] [phone] Director: Felipe Randall MD CO2 [Moles/Vol] 29 mmol/L Normal 20-31 [facility] Comment on above: Performed By: #### B MPX, CDP ####[facility] Tzsk[address]efcfjy[address] [place], [place] [phone] Director: Felipe Randall MD Creatinine [Mass/Vol] 0.54 mg/dL Normal 0.50-0.90 [facility] Comment on above: Performed By: #### B MPX, CDP ####[facility] [address]qi[address] [place] [address] Lab Director: Felipe Randall MD GFR, Amer >60 Normal >60 [facility] Comment on above: Performed By: #### B MPX, CDP ####[facility] K[address]stsp[address] [place], [place] [id number])[phone] Director: Felipe Randall MD GFR,non Amer >60 Normal >60 [facility] Comment on above: Performed By: #### B MPX, CDP ####[facility] Q[address]yp[address] [place], [place] [phone])[phone] Director: Felipe Randall MD Glucose [Mass/Vol] 83 mg/dL Normal 70-99 [facility] Comment on above: Performed By: #### B MPX, CDP ####[facility] Qdxzwyhsxraj9844 [place], [place] [id number])[phone] Director: Felipe Randall MD Potassium [Moles/Vol] 3.7 mmol/L Normal 3.7-5.3 [facility] Comment on above: Performed By: #### B MPX, CDP ####[facility] [address]edy[address]xtsi[address] [place], [place] [id number])[phone] Director: Felipe Randall MD Sodium [Moles/Vol] 137 mmol/L Normal 135-144 [facility] Comment on above: Performed By: #### B MPX, CDP ####[facility] [address]isptjy[address] [place], [place] [id number])[phone] Director: Felipe Randall MD Urea nitrogen [Mass/Vol] 9 mg/dL Normal 6-20 [facility] Comment on above: Performed By: #### B MPX, CDP ####[facility] Mfqhpmwttgxc[address]42 [place], [place] [phone])[phone] Director: Felipe Randall MD BUN/CRE Ratio NOT REPORTED Normal - [facility] Comment on above: Performed By: #### B MPX, CDP ####[address] [place], [place] [id number])[phone] Director: Felipe Randall MD Staging: NOT REPORTED Normal [facility] Comment on above: Performed By: #### B MPX, CDP ####[address] [address])[phone] Director: Felipe Randall MD CBC with Diffon 09-06-2018 Abs. Basophil 0.03 k/uL Normal 0.00-0.20 [facility] Comment on above: Performed By: #### B MPX, CDP ####[address] [address])[phone] Director: Felipe Randall MD Abs.Imm.Granulocyte 0.04 k/uL Normal 0.00-0.30 [facility] Comment on above: Performed By: #### B MPX, CDP ####[address] [place], [place] [id number])[phone] Director: Felipe Randall MD Abs.Neutrophil (Seg) 3.48 k/uL Normal 1.50-8.10 [facility] Comment on above: Performed By: #### B MPX, CDP ####[facility] Olxvhimpdgpu[address]47 [place], [place] [id number])[phone] Director: Felipe Randall MD Basophils/100 WBC (Bld) 1 % Normal 0-2 [facility] Comment on above: Performed By: #### B MPX, CDP ####[facility] [address] [place] [address] [id number])[phone] Director: Felipe Randall MD Eosinophils (Bld) [#/Vol] 0.16 10*3/uL Normal 0.00-0.44 [facility] Comment on above: Performed By: #### B MPX, CDP ####[address] [address] Lab Director: Felipe Randall MD Eosinophils/100 WBC (Bld) 3 % Normal 1-4 [facility] Comment on above: Performed By: #### B MPX, CDP ####[facility] [address] [place] [address])[phone] Director: Felipe Randall MD Erythrocyte distribution width (RBC) [Ratio] 13.2 % Normal 11.8-14.4 [facility] Comment on above: Performed By: #### B MPX, CDP ####[address] [address])[phone] Director: Felipe Randall MD Hematocrit (Bld) [Volume fraction] 35.5 % Low 36.3-47.1 [facility] Comment on above: Performed By: #### B MPX, CDP ####[place], [place] [address])[phone] Director: Felipe Randall MD Hemoglobin (Bld) [Mass/Vol] 11.6 g/dL Low 11.9-15.1 [facility] Comment on above: Performed By: #### B MPX, CDP ####[facility] [address] [place] [address])[phone] Director: Felipe Randall MD Immature granulocytes (Bld) [#/Vol] 1 % High 0 [facility] Comment on above: Performed By: #### B MPX, CDP ####[facility] Hvmiuzdluzqh4615 [place] [address] Lab Director: Felipe Randall MD Lymphocytes (Bld) [#/Vol] 2.34 10*3/uL Normal 1.10-3.70 [facility] Comment on above: Performed By: #### B MPX, CDP ####[facility] [address] [place] [address])[phone] Director: Felipe Randall MD Lymphocytes/100 WBC (Bld) 36 % Normal 24-43 [facility] Comment on above: Performed By: #### B MPX, CDP ####[place], [place] [address])[phone] Director: Felipe Randall MD MCH (RBC) [Entitic mass] 29.2 pg Normal 25.2-33.5 [facility] Comment on above: Performed By: #### B MPX, CDP ####[place], [place] [address])[phone] Director: Felipe Randall MD MCHC (RBC) [Mass/Vol] 32.7 g/dL Normal 28.4-34.8 [facility] Comment on above: Performed By: #### B MPX, CDP ####[place], [place] [address])[phone] Director: Felipe Randall MD MCV (RBC) [Entitic vol] 89.4 fL Normal 82.6-102.9 [facility] Comment on above: Performed By: #### B MPX, CDP ####[place], [place] [address])[phone] Director: Felipe Randall MD Monocytes (Bld) [#/Vol] 0.37 10*3/uL Normal 0.10-1.20 [facility] Comment on above: Performed By: #### B MPX, CDP ####[address] [address])[phone] Director: Felipe Randall MD Monocytes/100 WBC (Bld) 6 % Normal 3-12 [facility] Comment on above: Performed By: #### B MPX, CDP ####[facility] [address] [place], [place] [id number])[phone] Director: Felipe Randall MD Neutrophil (Seg) 54 % Normal 36-65 [facility] Comment on above: Performed By: #### B MPX, CDP ####[facility] [address]udls[address]nyjoqb2402 [place], [place] [id number])[phone] Director: Felipe Randall MD NRBC Automated 0.0 per 100 WBC Normal 0.0 [facility] Comment on above: Performed By: #### B MPX, CDP ####[facility] Xmfnsmbpkcad6184 [place], [place] [id number])[phone] Director: Felipe Randall MD Platelet mean volume (Bld) [Entitic vol] 10.5 fL Normal 8.1-13.5 [facility] Comment on above: Performed By: #### B MPX, CDP ####[facility] [address] [place] [address] [id number])[phone] Director: Felipe Randall MD Platelets (Bld) [#/Vol] 220 10*3/uL Normal 138-453 [facility] Comment on above: Performed By: #### B MPX, CDP ####[facility] [address] [place], [place] [id number])[phone] Director: Felipe Randall MD RBC (Bld) [#/Vol] 3.97 10*6/uL Normal 3.95-5.11 [facility] Comment on above: Performed By: #### B MPX, CDP ####[facility] Ektxyggbjtiw6979 [place], [place] [phone])[phone] Director: Felipe Randall MD WBC (Bld) [#/Vol] 6.4 10*3/uL Normal 3.5-11.3 [facility] Comment on above: Performed By: #### B MPX, CDP ####[facility] [address]qsngwktyu[address]24 [place] [address] Lab Director: Felipe Randall MD Auto Diff Performed NOT REPORTED Normal [facility] Comment on above: Performed By: #### B MPX, CDP ####[facility] Guoth[address]kaavaf[address] [place], [place] [id number])[phone] Director: Felipe Randall MD Platelets (Bld) [#/Vol] NOT REPORTED Normal [facility] Comment on above: Performed By: #### B MPX, CDP ####[facility] Zficwfadlyte9088 [place], [place] [id number])[phone] Director: Felipe Randall MD RBC morphology finding Nom (Bld) NOT REPORTED Normal [facility] Comment on above: Performed By: #### B MPX, CDP ####[facility] [address] [place] [address] [id number])[phone] Director: Felipe Randall MD WBC Morphology NOT REPORTED Normal [facility] Comment on above: Performed By: #### B MPX, CDP ####[facility] [address]kw[address] [place], [place] [id number])[phone] Director: Felipe Randall MD APTTon 09-05-2018 aPTT Coag (Bld) [Time] 56.3 s High 20.5-30.5 Me [facility] Comment on above: Performed By: #### P TT ####[facility] [address] [place] [address] [id number])[phone] Director: Felipe Randall MD aPTT Coag (Bld) [Time] 84.6 s High 20.5-30.5 Me [facility] Comment on above: Performed By: #### P TT ####[facility] [address] [place] [address] [id number])[phone] Director: Felipe Randall MD aPTT Coag (Bld) [Time] 78.1 s High 20.5-30.5 Me [facility] Comment on above: Performed By: #### P TT ####[facility] Al[address]psg2662 [place] [address] Lab Director: Felipe Randall MD Basic Metab w/rfx MGon 09-05 (cont.) Normal [facility] Comment on above: Result Comment: Aver age GFR for 40-49 years old: 99 mL/min/1.73sq m Chronic Kidney Disease: <60 mL/min/1.73sq m Kidney failure: <15 mL/min/1.73sq m eGFR calculated using average adult body mass. Additional eGFR calculator available at: http://www.[employer]/multiple_crcl_2011.htm Performed By: #### C DP, BMPX ####[facility] [address] [place] [address] [id number])[phone] Director: Felipe Randall MD Anion gap [Moles/Vol] 12 mmol/L Normal 9-17 [facility] Comment on above: Performed By: #### C DP, BMPX ####[facility] [address] [place] [address] Lab Director: Felipe Randall MD Calcium [Mass/Vol] 8.7 mg/dL Normal 8.6-10.4 [facility] Comment on above: Performed By: #### C DP, BMPX ####[facility] Xjuu[address]utfts2619 [place] [address] Lab Director: Felipe Randall MD Chloride [Moles/Vol] 104 mmol/L Normal 98-107 [facility] Comment on above: Performed By: #### C DP, BMPX ####[facility] Umbaq[address]bgigbr6477 [place], [place] [id number])[phone] Director: Felipe Randall MD CO2 [Moles/Vol] 25 mmol/L Normal 20-31 [facility] Comment on above: Performed By: #### C DP, BMPX ####[facility] [address]oy[address] [place] [address] Lab Director: Felipe Randall MD Creatinine [Mass/Vol] 0.47 mg/dL Low 0.50-0.90 [facility] Comment on above: Performed By: #### C DP, BMPX ####[facility] Cgpxktpjlfmw7072 [place] [address] Lab Director: Felipe Randall MD GFR, Amer >60 Normal >60 [facility] Comment on above: Performed By: #### C DP, BMPX ####[facility] Y[address]zsvbqqiwot[address] [place], [place] [id number])[phone] Director: Felipe Randall MD GFR,non Amer >60 Normal >60 [facility] Comment on above: Performed By: #### C DP, BMPX ####[facility] [address] [place] [address] Lab Director: Felipe Randall MD Glucose [Mass/Vol] 91 mg/dL Normal 70-99 [facility] Comment on above: Performed By: #### C DP, BMPX ####[facility] [address] [place] [address] [id number])[phone] Director: Felipe Randall MD Potassium [Moles/Vol] 3.9 mmol/L Normal 3.7-5.3 [facility] Comment on above: Performed By: #### C DP, BMPX ####[facility] [address] [place] [address] [id number])[phone] Director: Felipe Randall MD Sodium [Moles/Vol] 141 mmol/L Normal 135-144 [facility] Comment on above: Performed By: #### C DP, BMPX ####[facility] [address] [place] [address] [id number])[phone] Director: Felipe Randall MD Urea nitrogen [Mass/Vol] 8 mg/dL Normal 6-20 [facility] Comment on above: Performed By: #### C DP, BMPX ####[address] [address])[phone] Director: Felipe Randall MD BUN/CRE Ratio NOT REPORTED Normal -20 [facility] Comment on above: Performed By: #### C DP, BMPX ####[address] [address])[phone] Director: Felipe Randall MD Staging: NOT REPORTED Normal [facility] Comment on above: Performed By: #### C DP, BMPX ####[place], [place] [address])[phone] Director: Felipe Randall MD CBC with Diffon 09-05-2018 Abs. Basophil 0.03 k/uL Normal 0.00-0.20 [facility] Comment on above: Performed By: #### C DP, BMPX ####[place], [place] [address])[phone] Director: Felipe Randall MD Abs.Imm.Granulocyte <0.03 Normal 0.00-0.30 [facility] Comment on above: Performed By: #### C DP, BMPX ####[place], [place] [address])[phone] Director: Felipe Randall MD Abs.Neutrophil (Seg) 3.98 k/uL Normal 1.50-8.10 [facility] Comment on above: Performed By: #### C DP, BMPX ####[place], [place] [address])[phone] Director: Felipe Randall MD Basophils/100 WBC (Bld) 0 % Normal 0-2 M [facility] Comment on above: Performed By: #### C DP, BMPX ####[address] [address])[phone] Director: Felipe Randall MD Eosinophils (Bld) [#/Vol] 0.25 10*3/uL Normal 0.00-0.44 [facility] Comment on above: Performed By: #### C DP, BMPX ####[place] [address] Lab Director: Felipe Randall MD Eosinophils/100 WBC (Bld) 3 % Normal 1-4 [facility] Comment on above: Performed By: #### C DP, BMPX ####[place], [place] [address])[phone] Director: Felipe Randall MD Erythrocyte distribution width (RBC) [Ratio] 13.2 % Normal 11.8-14.4 [facility] Comment on above: Performed By: #### C DP, BMPX ####[place], [place] [address])[phone] Director: Felipe Randall MD Hematocrit (Bld) [Volume fraction] 36.9 % Normal 36.3-47.1 [facility] Comment on above: Performed By: #### C DP, BMPX ####[place], [place] [address])[phone] Director: Felipe Randall MD Hemoglobin (Bld) [Mass/Vol] 11.3 g/dL Low 11.9-15.1 [facility] Comment on above: Performed By: #### C DP, BMPX ####[place], [place] [address])[phone] Director: Felipe Randall MD Immature granulocytes (Bld) [#/Vol] 0 % Normal 0 [facility] Comment on above: Performed By: #### C DP, BMPX ####[place] [address] Lab Director: Felipe Randall MD Lymphocytes (Bld) [#/Vol] 2.62 10*3/uL Normal 1.10-3.70 [facility] Comment on above: Performed By: #### C DP, BMPX ####[place], [place] [address])[phone] Director: Felipe Randall MD Lymphocytes/100 WBC (Bld) 36 % Normal 24-43 [facility] Comment on above: Performed By: #### C DP, BMPX ####[place], [place] [address])[phone] Director: Felipe Randall MD MCH (RBC) [Entitic mass] 28.6 pg Normal 25.2-33.5 [facility] Comment on above: Performed By: #### C DP, BMPX ####[place], [place] [address])[phone] Director: Felipe Randall MD MCHC (RBC) [Mass/Vol] 30.6 g/dL Normal 28.4-34.8 [facility] Comment on above: Performed By: #### C DP, BMPX ####[place], [place] [address])[phone] Director: Felipe Randall MD MCV (RBC) [Entitic vol] 93.4 fL Normal 82.6-102.9 [facility] Comment on above: Performed By: #### C DP, BMPX ####[place], [place] [address])[phone] Director: Felipe Randall MD Monocytes (Bld) [#/Vol] 0.45 10*3/uL Normal 0.10-1.20 [facility] Comment on above: Performed By: #### C DP, BMPX ####[place], [place] [address])[phone] Director: Felipe Randall MD Monocytes/100 WBC (Bld) 6 % Normal 3-12 [facility] Comment on above: Performed By: #### C DP, BMPX ####[facility] [address] [place] [address] Lab Director: Felipe Randall MD Neutrophil (Seg) 55 % Normal 36-65 [facility] Comment on above: Performed By: #### C DP, BMPX ####[address] [address] Lab Director: Felipe Randall MD NRBC Automated 0.0 per 100 WBC Normal 0.0 [facility] Comment on above: Performed By: #### C DP, BMPX ####[address] [address] Lab Director: Felipe Randall MD Platelet mean volume (Bld) [Entitic vol] 10.4 fL Normal 8.1-13.5 [facility] Comment on above: Performed By: #### C DP, BMPX ####[address] [address] Lab Director: Felipe Randall MD Platelets (Bld) [#/Vol] 258 10*3/uL Normal 138-453 [facility] Comment on above: Performed By: #### C DP, BMPX ####[address] [address] Lab Director: Felipe Randall MD RBC (Bld) [#/Vol] 3.95 10*6/uL Normal 3.95-5.11 [facility] Comment on above: Performed By: #### C DP, BMPX ####[address] [address] Lab Director: Felipe Randall MD WBC (Bld) [#/Vol] 7.4 10*3/uL Normal 3.5-11.3 [facility] Comment on above: Performed By: #### C DP, BMPX ####[address], [place] [id number])[phone] Director: Felipe Randall MD Auto Diff Performed NOT REPORTED Normal [facility] Comment on above: Performed By: #### C DP, BMPX ####[facility] [address] [place] [address] [id number])[phone] Director: Felipe Randall MD Platelets (Bld) [#/Vol] NOT REPORTED Normal [facility] Comment on above: Performed By: #### C DP, BMPX ####[facility] [address] [place] [address] [id number])[phone] Director: Felipe Randall MD RBC morphology finding Nom (Bld) NOT REPORTED Normal [facility] Comment on above: Performed By: #### C DP, BMPX ####[facility] [address] [place] [address] [id number])[phone] Director: Felipe Randall MD WBC Morphology NOT REPORTED Normal [facility] Comment on above: Performed By: #### C DP, BMPX ####[facility] [address] [place] [address] [id number])[phone] Director: Felipe Randall MD APTTon 09-04-2018 aPTT Coag (Bld) [Time] 53.8 s High 20.5-30.5 [facility] Comment on above: Performed By: #### C DP, PTT, BMPX ####[facility] [address] [place] [address] [id number])[phone] Director: Felipe Randall MD aPTT Coag (Bld) [Time] 66.8 s High 20.5-30.5 [facility] Comment on above: Performed By: #### U A, [place] #### [facility] [address] [place] [address] [employer] Secretary: Felipe Randall MD Basic Metab w/rfx MGon 09-04 (cont.) Normal [facility] Comment on above: Result Comment: Aver age GFR for 40-49 years old: 99 mL/min/1.73sq m Chronic Kidney Disease: <60 mL/min/1.73sq m Kidney failure: <15 mL/min/1.73sq m eGFR calculated using average adult body mass. Additional eGFR calculator available at: http://www.[employer]/multiple_crcl_2012.htm Performed By: #### C DP, PTT, BMPX ####[facility] [address] [place] [address])[phone] Director: Felipe Randall MD Anion gap [Moles/Vol] 11 mmol/L Normal 9-17 [facility] Comment on above: Performed By: #### C DP, PTT, BMPX ####[place], [place] [address])[phone] Director: Felipe Randall MD Calcium [Mass/Vol] 8.5 mg/dL Low 8.6-10.4 [facility] Comment on above: Performed By: #### C DP, PTT, BMPX ####[facility] [address] [place] [address])[phone] Director: Felipe Randall MD Chloride [Moles/Vol] 104 mmol/L Normal 98-107 [facility] Comment on above: Performed By: #### C DP, PTT, BMPX ####[facility] [address] [place] [address])[phone] Director: Feliep Randall MD CO2 [Moles/Vol] 29 mmol/L Normal 20-31 [facility] Comment on above: Performed By: #### C DP, PTT, BMPX ####[facility] [address] [place] [address])[phone] Director: Felipe Randall MD Creatinine [Mass/Vol] 0.51 mg/dL Normal 0.50-0.90 [facility] Comment on above: Performed By: #### C DP, PTT, BMPX ####[facility] [address]mos[address]xwirq75[address] [place], [place] [id number])[phone] Director: Felipe Randall MD GFR, Amer >60 Normal >60 [facility] Comment on above: Performed By: #### C DP, PTT, BMPX ####[facility] [address]tw[address]dwx50[address] [place], [place] [id number])[phone] Director: Felipe Randall MD GFR,non Amer >60 Normal >60 [facility] Comment on above: Performed By: #### C DP, PTT, BMPX ####[facility] Yft[address]vhuwh[address] [place], [place] [id number])[phone] Director: Felipe Randall MD Glucose [Mass/Vol] 89 mg/dL Normal 70-99 [facility] Comment on above: Performed By: #### C DP, PTT, BMPX ####[facility] [address] [place] [address] [id number])[phone] Director: Felipe Randall MD Potassium [Moles/Vol] 3.6 mmol/L Low 3.7-5.3 [facility] Comment on above: Performed By: #### C DP, PTT, BMPX ####[facility] [address] [place] [address] [id number])[phone] Director: Felipe Randall MD Sodium [Moles/Vol] 144 mmol/L Normal 135-144 [facility] Comment on above: Performed By: #### C DP, PTT, BMPX ####[facility] [address] [place], [place] [id number])[phone] Director: Felipe Randall MD Urea nitrogen [Mass/Vol] 8 mg/dL Normal 6-20 [facility] Comment on above: Performed By: #### C DP, PTT, BMPX ####[facility] [address]qbs[address]xb[address] [place], [place] [id number])[phone] Director: Felipe Randall MD BUN/CRE Ratio NOT REPORTED Normal 9-20 [facility] Comment on above: Performed By: #### C DP, PTT, BMPX ####[address] [address] Lab Director: Felipe Randall MD Staging: NOT REPORTED Normal [facility] Comment on above: Performed By: #### C DP, PTT, BMPX ####[place], [place] [address])[phone] Director: Felipe Randall MD CBC with Diffon 09-04-2018 Abs. Basophil 0.03 k/uL Normal 0.00-0.20 [facility] Comment on above: Performed By: #### U AENIDICAO #### [place] [address] Special Education Secretary: Felipe Randall MD Abs.Imm.Granulocyte 0.04 k/uL Normal 0.00-0.30 [facility] Comment on above: Performed By: #### U ENID YoungICAKamran #### [place] [address] Special Education Secretary: Felipe Randall MD Abs.Neutrophil (Seg) 5.49 k/uL Normal 1.50-8.10 [facility] Comment on above: Performed By: #### U AENIDICAO #### [place] [address] Special Education Secretary: Felipe Randall MD Basophils/100 WBC (Bld) 0 % Normal 0-2 M [facility] Comment on above: Performed By: #### U AENIDICAO #### [place] [address] Special Education Secretary: Felipe Randall MD Eosinophils (Bld) [#/Vol] 0.27 10*3/uL Normal 0.00-0.44 [facility] Comment on above: Performed By: #### U A, UMICAO #### [address] [address] Special Education Secretary: Felipe Randall MD Eosinophils/100 WBC (Bld) 3 % Normal 1-4 [facility] Comment on above: Performed By: #### U A, UMICAO #### [address] [address] Special Education Secretary: Felipe Randall MD Erythrocyte distribution width (RBC) [Ratio] 13.2 % Normal 11.8-14.4 [facility] Comment on above: Performed By: #### U ANEOO #### [address] [address] Special Education Secretary: Felipe Randall MD Hematocrit (Bld) [Volume fraction] 38.6 % Normal 36.3-47.1 [facility] Comment on above: Performed By: #### U A, NEOO #### [address] [address] Special Education Secretary: Felipe Randall MD Hemoglobin (Bld) [Mass/Vol] 12.3 g/dL Normal 11.9-15.1 [facility] Comment on above: Performed By: #### U ANEOO #### [address] [address] Special Education Secretary: Felipe Randall MD Immature granulocytes (Bld) [#/Vol] 1 % High 0 [facility] Comment on above: Performed By: #### U A UMICAO #### [facility] [employer] [address] [place] [address] Special Education Secretary: Felipe Randall MD Lymphocytes (Bld) [#/Vol] 2.08 10*3/uL Normal 1.10-3.70 [facility] Comment on above: Performed By: #### U ANEOO #### [address] [address] Special Education Secretary: Felipe Randall MD Lymphocytes/100 WBC (Bld) 25 % Normal 24-43 [facility] Comment on above: Performed By: #### U A, UMICAO #### [address] [address] Special Education Secretary: Felipe Randall MD MCH (RBC) [Entitic mass] 28.9 pg Normal 25.2-33.5 [facility] Comment on above: Performed By: #### U A, UMKONGO #### [address] [address] Special Education Secretary: Felipe Randall MD MCHC (RBC) [Mass/Vol] 31.9 g/dL Normal 28.4-34.8 [facility] Comment on above: Performed By: #### U A, UMKONGO #### [address] [address] Special Education Secretary: Felipe Randall MD MCV (RBC) [Entitic vol] 90.6 fL Normal 82.6-102.9 [facility] Comment on above: Performed By: #### U A, UMKONGO #### [address] [address] Special Education Secretary: Felipe Randall MD Monocytes (Bld) [#/Vol] 0.42 10*3/uL Normal 0.10-1.20 [facility] Comment on above: Performed By: #### U A, UMICAO #### [address] [address] Special Education Secretary: Felipe Randall MD Monocytes/100 WBC (Bld) 5 % Normal 3-12 M [facility] Comment on above: Performed By: #### U A, UMICAO #### [address] [address] Special Education Secretary: Felipe Randall MD Neutrophil (Seg) 66 % High 36-65 [facility] Comment on above: Performed By: #### U A, ENIDICAO #### [address] [address] Special Education Secretary: Felipe Randall MD NRBC Automated 0.0 per 100 WBC Normal 0.0 [facility] Comment on above: Performed By: #### U A, ENIDICAO #### [address] [address] Special Education Secretary: Felipe Randall MD Platelet mean volume (Bld) [Entitic vol] 10.5 fL Normal 8.1-13.5 [facility] Comment on above: Performed By: #### U ANEOO #### [address] [address] Special Education Secretary: Felipe Randall MD Platelets (Bld) [#/Vol] 243 10*3/uL Normal 138-453 [facility] Comment on above: Performed By: #### U ANEOO #### [address] [address] Special Education Secretary: Felipe Randall MD RBC (Bld) [#/Vol] 4.26 10*6/uL Normal 3.95-5.11 [facility] Comment on above: Performed By: #### U A UMICAO #### [address] [address] Special Education Secretary: Felipe Randall MD WBC (Bld) [#/Vol] 8.3 10*3/uL Normal 3.5-11.3 [facility] Comment on above: Performed By: #### U AENIDICAO #### [address] [address] Special Education Secretary: Felipe Randall MD Auto Diff Performed NOT REPORTED Normal [facility] Comment on above: Performed By: #### U A, UMICAO #### [facility] [address] [place] [address] Special Education Secretary: Felipe Randall MD Platelets (Bld) [#/Vol] NOT REPORTED Normal [facility] Comment on above: Performed By: #### U A, UMICAO #### [facility] [address] [place] [address] Special Education Secretary: Felipe Randall MD RBC morphology finding Nom (Bld) NOT REPORTED Normal [facility] Comment on above: Performed By: #### U A, UMICAO #### [facility] [address] [place] [address] Special Education Secretary: Felipe Randall MD WBC Morphology NOT REPORTED Normal [facility] Comment on above: Performed By: #### U A, NEOO #### [facility] [address] [place] [address] Special Education Secretary: Felipe Randall MD APTTon 09-03-2018 aPTT Coag (Bld) [Time] 50.3 s High 20.5-30.5 [facility] Comment on above: Performed By: #### U ANEOO #### [facility] [address] [place] [address] Special Education Secretary: Felipe Randall MD aPTT Coag (Bld) [Time] 62.8 s High 20.5-30.5 [facility] Comment on above: Performed By: #### U A, UMICAO #### [facility] [address] [place] [address] Special Education Secretary: Felipe Randall MD aPTT Coag (Bld) [Time] 21.9 s Normal 20.5-30.5 [facility] Comment on above: Performed By: #### U TAYLOR Young #### [facility] [address] [place] [address] Special Education Secretary: Felipe Randall MD aPTT Coag (Bld) [Time] 22.8 s Normal 20.5-30.5 [facility] Comment on above: Performed By: #### TAYLOR Masters #### [facility] [address] [place] [address] Special Education Secretary: Felipe Randall MD Basic Metab w/rfx MGon 09-03 Potassium [Moles/Vol] 3.4 mmol/L Low 3.7-5.3 [facility] Comment on above: Performed By: #### TAYLOR Masters #### [facility] [employer] [address] [place] [address] Special Education Secretary: Felipe Randall MD Anion gap [Moles/Vol] 12 mmol/L Normal 9-17 [facility] Comment on above: Performed By: #### TAYLOR Masters #### [facility] [employer] [address] [place] [address] Special Education Secretary: Felipe Randall MD Calcium [Mass/Vol] 8.8 mg/dL Normal 8.6-10.4 [facility] Comment on above: Performed By: #### TAYLOR Masters #### [facility] [employer] [address] [place] [address] Special Education Secretary: Felipe Randall MD Chloride [Moles/Vol] 101 mmol/L Normal 98-107 [facility] Comment on above: Performed By: #### TAYLOR Masters #### [facility] [address] [place] [address] Special Education Secretary: Felipe Randall MD CO2 [Moles/Vol] 27 mmol/L Normal 20-31 [facility] Comment on above: Performed By: #### ENID MastersICAO #### [facility] [address] [place] [address] Special Education Secretary: Felipe Randall MD Creatinine [Mass/Vol] 0.64 mg/dL Normal 0.50-0.90 [facility] Comment on above: Performed By: #### U A, UMICAO #### [facility] [address] [place] [address] Special Education Secretary: Felipe Randall MD GFR, Amer >60 Normal >60 [facility] Comment on above: Performed By: #### U A, UMICAO #### [facility] [address] [place] [address] Special Education Secretary: Felipe Randall MD GFR,non Amer >60 Normal >60 [facility] Comment on above: Performed By: #### U A, UMICAO #### [address] [address] Special Education Secretary: Felipe Randall MD Glucose [Mass/Vol] 89 mg/dL Normal 70-99 [facility] Comment on above: Performed By: #### U A, UMICAO #### [address] [address] Special Education Secretary: Felipe Randall MD Sodium [Moles/Vol] 140 mmol/L Normal 135-144 [facility] Comment on above: Performed By: #### U A, UMICAO #### [facility] [address] [place] [address] Special Education Secretary: Felipe Randall MD Urea nitrogen [Mass/Vol] 11 mg/dL Normal 6-20 [facility] Comment on above: Performed By: #### U A, UMICAO #### [facility] [address] [place] [address] Special Education Secretary: Felipe Randall MD (cont.) Normal [facility] Comment on above: Result Comment: Aver age GFR for 40-49 years old: 99 mL/min/1.73sq m Chronic Kidney Disease: <60 mL/min/1.73sq m Kidney failure: <15 mL/min/1.73sq m eGFR calculated using average adult body mass. Additional eGFR calculator available at: http://www.[employer]/multiple_crcl_2012.htm Performed By: #### U A, UMICAO #### [facility] [address] [place] [address] Special Education Secretary: Felipe Randall MD BUN/CRE Ratio NOT REPORTED Normal - [facility] Comment on above: Performed By: #### U A, UMKONGO #### [facility] [employer] [address] [place] [address] Special Education Secretary: Felipe Randall MD Staging: NOT REPORTED Normal [facility] Comment on above: Performed By: #### U A, UMICAO #### [facility] [employer] [address] [place] [address] Special Education Secretary: Felipe Randall MD Basic Metabolic Profon 09-03 Anion gap [Moles/Vol] 10 mmol/L Normal 9-17 [facility] Comment on above: Performed By: #### U A, ENIDICAO #### [address] [address] Special Education Secretary: Felipe Randall MD Calcium [Mass/Vol] 8.7 mg/dL Normal 8.6-10.4 [facility] Comment on above: Performed By: #### U A UMICAO #### [facility] [employer] [address] [place] [address] Special Education Secretary: Felipe Randall MD Chloride [Moles/Vol] 100 mmol/L Normal 98-107 [facility] Comment on above: Performed By: #### U A, UMICAO #### [facility] [employer] [address] [place] [address] Special Education Secretary: Felipe Randall MD CO2 [Moles/Vol] 26 mmol/L Normal 20-31 [facility] Comment on above: Performed By: #### U A, ENIDICAO #### [facility] [address] [place] [address] Special Education Secretary: Felipe Randall MD Creatinine [Mass/Vol] 0.57 mg/dL Normal 0.50-0.90 [facility] Comment on above: Performed By: #### U AENIDICAO #### [facility] [address] [place] [address] Special Education Secretary: Felipe Randall MD GFR, Amer >60 Normal >60 [facility] Comment on above: Performed By: #### U ATAYLOR #### [facility] [address] [place] [address] Special Education Secretary: Felipe Randall MD GFR,non Amer >60 Normal >60 [facility] Comment on above: Performed By: #### U ANEOO #### [facility] [address] [place] [address] Special Education Secretary: Felipe Randall MD Glucose [Mass/Vol] 102 mg/dL High 70-99 [facility] Comment on above: Performed By: #### U ANEOO #### [facility] [address] [place] [address] Special Education Secretary: Felipe Randall MD Potassium [Moles/Vol] 3.5 mmol/L Low 3.7-5.3 [facility] Comment on above: Performed By: #### U A, UMICAO #### [facility] [address] [place] [address] Special Education Secretary: Felipe Randall MD Sodium [Moles/Vol] 136 mmol/L Normal 135-144 [facility] Comment on above: Performed By: #### U A, UMICAO #### [address] [place] [address] Special Education Secretary: Felipe Randall MD Urea nitrogen [Mass/Vol] 11 mg/dL Normal -20 [facility] Comment on above: Performed By: #### U A, UMICAO #### [address] [address] Special Education Secretary: Felipe Randall MD (cont.) Normal [facility] Comment on above: Result Comment: Aver age GFR for 40-49 years old: 99 mL/min/1.73sq m Chronic Kidney Disease: <60 mL/min/1.73sq m Kidney failure: <15 mL/min/1.73sq m eGFR calculated using average adult body mass. Additional eGFR calculator available at: http://www.[employer]/multiple_crcl_2012.htm Performed By: #### U A, UMICAO #### [address] [address] Special Education Secretary: Felipe Randall MD BUN/CRE Ratio NOT REPORTED Normal -20 [facility] Comment on above: Performed By: #### U A, UMICAO #### [address] [address] Special Education Secretary: Felipe Randall MD Staging: NOT REPORTED Normal [facility] Comment on above: Performed By: #### U A, UMICAO #### [facility] [address] [place] [address] Special Education Secretary: Felipe Randall MD Brain Natri. Peptideon 09-03 Natriuretic peptide B (Bld) [Mass/Vol] 2284 pg/mL High <300 [facility] Comment on above: Result Comment: Pro- BNP results cannot be compared to BNP results. Performed By: #### C DP, BNP, TROPI, BMP, PT, PTT #### [address] [address] Special Education Secretary: Felipe Randall MD Natriuretic peptide B (Bld) [Mass/Vol] Pro-BNP Reference Range: Normal [facility] Comment on above: Result Comment: Rule Out: <300 [place]: Age <50 300-450 Age 50-75 300-900 Age >75 300-1800 Usually represents mild to moderate HF but other cardiopulmonary causes cannot be ruled out. Rule In: Age <50 >450 Age 50-75 >900 Age >75 >1800 Performed By: #### C DP, BNP, TROPI, BMP, PT, PTT #### [address] [address] Special Education Secretary: Felipe Randall MD CBCon 09-03-2018 Erythrocyte distribution width (RBC) [Ratio] 13.4 % Normal 11.8-14.4 [facility] Comment on above: Performed By: #### TAYLOR Masters #### [facility] [employer] [address] [place] [address] Special Education Secretary: Felipe Randall MD Hematocrit (Bld) [Volume fraction] 36.7 % Normal 36.3-47.1 [facility] Comment on above: Performed By: #### TAYLOR Masters #### [facility] [employer] [address] [place] [address] Special Education Secretary: Felipe Randall MD Hemoglobin (Bld) [Mass/Vol] 11.7 g/dL Low 11.9-15.1 [facility] Comment on above: Performed By: #### TAYLOR Masters #### [facility] [employer] [address] [place] [address] Special Education Secretary: Felipe Randall MD MCH (RBC) [Entitic mass] 28.4 pg Normal 25.2-33.5 [facility] Comment on above: Performed By: #### U TAYLOR Young #### [address] [address] Special Education Secretary: Felipe Randall MD MCHC (RBC) [Mass/Vol] 31.9 g/dL Normal 28.4-34.8 [facility] Comment on above: Performed By: #### U TAYLOR Young #### [address] [address] Special Education Secretary: Felipe Randall MD MCV (RBC) [Entitic vol] 89.1 fL Normal 82.6-102.9 [facility] Comment on above: Performed By: #### U ATAYLOR #### [address] [address] Special Education Secretary: Felipe Randall MD NRBC Automated 0.0 per 100 WBC Normal 0.0 [facility] Comment on above: Performed By: #### U ATAYLOR #### [address] [address] Special Education Secretary: Felipe Randall MD Platelet mean volume (Bld) [Entitic vol] 10.9 fL Normal 8.1-13.5 [facility] Comment on above: Performed By: #### U TAYLOR Young #### [address] [address] Special Education Secretary: Felipe Randall MD Platelets (Bld) [#/Vol] 232 10*3/uL Normal 138-453 [facility] Comment on above: Performed By: #### U ANEOO #### [address] [address] Special Education Secretary: Felipe Randall MD RBC (Bld) [#/Vol] 4.12 10*6/uL Normal 3.95-5.11 [facility] Comment on above: Performed By: #### U ANEOO #### [address] [address] Special Education Secretary: Felipe Randall MD WBC (Bld) [#/Vol] 8.9 10*3/uL Normal 3.5-11.3 [facility] Comment on above: Performed By: #### U ATAYLOR #### [address] [address] Special Education Secretary: Felipe Randall MD CBC with Diffon 09-03-2018 Abs. Basophil 0.04 k/uL Normal 0.00-0.20 [facility] Comment on above: Performed By: #### U ATAYLOR #### [address] [address] Special Education Secretary: Felipe Randall MD Abs.Imm.Granulocyte 0.03 k/uL Normal 0.00-0.30 [facility] Comment on above: Performed By: #### TAYLOR Masters #### [place] [address] Special Education Secretary: Felipe Randall MD Abs.Neutrophil (Seg) 5.69 k/uL Normal 1.50-8.10 [facility] Comment on above: Performed By: #### U TAYLOR Young #### [address] [address] Special Education Secretary: Felipe Randall MD Basophils/100 WBC (Bld) 0 % Normal 0-2 M [facility] Comment on above: Performed By: #### U AENIDICAO #### [place] [address] Special Education Secretary: Felipe Randall MD Eosinophils (Bld) [#/Vol] 0.15 10*3/uL Normal 0.00-0.44 [facility] Comment on above: Performed By: #### U ANEOO #### [address] [address] Special Education Secretary: Felipe Randall MD Eosinophils/100 WBC (Bld) 2 % Normal 1-4 [facility] Comment on above: Performed By: #### U A, UMICAO #### [address] [address] Special Education Secretary: Felipe Randall MD Erythrocyte distribution width (RBC) [Ratio] 13.4 % Normal 11.8-14.4 [facility] Comment on above: Performed By: #### U A, UMICAO #### [address] [address] Special Education Secretary: Felipe Randall MD Hematocrit (Bld) [Volume fraction] 37.7 % Normal 36.3-47.1 [facility] Comment on above: Performed By: #### U A UMICAO #### [address] [address] Special Education Secretary: Felipe Randall MD Hemoglobin (Bld) [Mass/Vol] 11.6 g/dL Low 11.9-15.1 [facility] Comment on above: Performed By: #### U A, UMICAO #### [address] [address] Special Education Secretary: Felipe Randall MD Immature granulocytes (Bld) [#/Vol] 0 % Normal 0 [facility] Comment on above: Performed By: #### U A, UMICAO #### [address] [address] Special Education Secretary: Felipe Randall MD Lymphocytes (Bld) [#/Vol] 3.06 10*3/uL Normal 1.10-3.70 [facility] Comment on above: Performed By: #### U A, UMICAO #### [facility] [employer] [address] [place] [phone] Special Education Secretary: Felipe Randall MD Lymphocytes/100 WBC (Bld) 32 % Normal 24-43 [facility] Comment on above: Performed By: #### U A, UMICAO #### [address] [address] Special Education Secretary: Felipe Randall MD MCH (RBC) [Entitic mass] 29.1 pg Normal 25.2-33.5 [facility] Comment on above: Performed By: #### U A, UMICAO #### [address] [address] Special Education Secretary: Felipe Randall MD MCHC (RBC) [Mass/Vol] 30.8 g/dL Normal 28.4-34.8 [facility] Comment on above: Performed By: #### U A, UMICAO #### [address] [address] Special Education Secretary: Felipe Randall MD MCV (RBC) [Entitic vol] 94.7 fL Normal 82.6-102.9 [facility] Comment on above: Performed By: #### U A, UMICAO #### [address] [address] Special Education Secretary: Felipe Randall MD Monocytes (Bld) [#/Vol] 0.56 10*3/uL Normal 0.10-1.20 [facility] Comment on above: Performed By: #### U A, UMICAO #### [address] [address] Special Education Secretary: Felipe Randall MD Monocytes/100 WBC (Bld) 6 % Normal 3-12 [facility] Comment on above: Performed By: #### U A, UMICAO #### [address] [address] Special Education Secretary: Felipe Randall MD Neutrophil (Seg) 60 % Normal 36-65 [facility] Comment on above: Performed By: #### U NEO YoungO #### [address] [address] Special Education Secretary: Felipe Randall MD NRBC Automated 0.0 per 100 WBC Normal 0.0 [facility] Comment on above: Performed By: #### U AENIDICAO #### [address] [address] Special Education Secretary: Felipe Randall MD Platelet mean volume (Bld) [Entitic vol] 10.7 fL Normal 8.1-13.5 [facility] Comment on above: Performed By: #### U AENIDICAO #### [address] [address] Special Education Secretary: Felipe Randall MD Platelets (Bld) [#/Vol] 283 10*3/uL Normal 138-453 [facility] Comment on above: Performed By: #### U ANEOO #### [address] [address] Special Education Secretary: Felipe Randall MD RBC (Bld) [#/Vol] 3.98 10*6/uL Normal 3.95-5.11 [facility] Comment on above: Performed By: #### U A UMICAO #### [address] [address] Special Education Secretary: Felipe Randall MD WBC (Bld) [#/Vol] 9.5 10*3/uL Normal 3.5-11.3 [facility] Comment on above: Performed By: #### U A, UMICAO #### [address] [address] Special Education Secretary: Felipe Randall MD Auto Diff Performed NOT REPORTED Normal [facility] Comment on above: Performed By: #### U A, UMICAO #### [address] [address] Special Education Secretary: Felipe Randall MD Platelets (Bld) [#/Vol] NOT REPORTED Normal [facility] Comment on above: Performed By: #### U A, UMICAO #### [address] [address] Special Education Secretary: Felipe Randall MD RBC morphology finding Nom (Bld) NOT REPORTED Normal [facility] Comment on above: Performed By: #### U ATAYLOR #### [address] [address] Special Education Secretary: Felipe Randall MD WBC Morphology NOT REPORTED Normal [facility] Comment on above: Performed By: #### U ATAYLOR #### [address] [address] Special Education Secretary: Felipe Randall MD Abs. Basophil 0.03 k/uL Normal 0.00-0.20 [facility] Comment on above: Performed By: #### C DP, BNP, TROPI, BMP, PT, PTT #### [place] [address] Special Education Secretary: Felipe Randall MD Abs.Imm.Granulocyte 0.03 k/uL Normal 0.00-0.30 [facility] Comment on above: Performed By: #### C DP, BNP, TROPI, BMP, PT, PTT #### [address] [address] Special Education Secretary: Felipe Randall MD Abs.Neutrophil (Seg) 5.21 k/uL Normal 1.50-8.10 [facility] Comment on above: Performed By: #### C DP, BNP, TROPI, BMP, PT, PTT #### [address] [place] [address] Special Education Secretary: Felipe Randall MD Basophils/100 WBC (Bld) 0 % Normal 0-2 [facility] Comment on above: Performed By: #### C DP, BNP, TROPI, BMP, PT, PTT #### [address] [address] Special Education Secretary: Felipe Randall MD Eosinophils (Bld) [#/Vol] 0.13 10*3/uL Normal 0.00-0.44 [facility] Comment on above: Performed By: #### C DP, BNP, TROPI, BMP, PT, PTT #### [address] [address] Special Education Secretary: Felipe Randall MD Eosinophils/100 WBC (Bld) 1 % Normal 1-4 [facility] Comment on above: Performed By: #### C DP, BNP, TROPI, BMP, PT, PTT #### [place] [address] Special Education Secretary: Felipe Randall MD Erythrocyte distribution width (RBC) [Ratio] 13.5 % Normal 11.8-14.4 [facility] Comment on above: Performed By: #### C DP, BNP, TROPI, BMP, PT, PTT #### [address] [address] Special Education Secretary: Felipe Randall MD Hematocrit (Bld) [Volume fraction] 35.2 % Low 36.3-47.1 [facility] Comment on above: Performed By: #### C DP, BNP, TROPI, BMP, PT, PTT #### [address] [address] Special Education Secretary: Felipe Randall MD Hemoglobin (Bld) [Mass/Vol] 11.1 g/dL Low 11.9-15.1 [facility] Comment on above: Performed By: #### C DP, BNP, TROPI, BMP, PT, PTT #### [address] [address] Special Education Secretary: Felipe Randall MD Immature granulocytes (Bld) [#/Vol] 0 % Normal 0 [facility] Comment on above: Performed By: #### C DP, BNP, TROPI, BMP, PT, PTT #### [place] [address] Special Education Secretary: Felipe Randall MD Lymphocytes (Bld) [#/Vol] 3.12 10*3/uL Normal 1.10-3.70 [facility] Comment on above: Performed By: #### C DP, BNP, TROPI, BMP, PT, PTT #### [place] [address] Special Education Secretary: Felipe Randall MD Lymphocytes/100 WBC (Bld) 34 % Normal 24-43 [facility] Comment on above: Performed By: #### C DP, BNP, TROPI, BMP, PT, PTT #### [place] [address] Special Education Secretary: Felipe Randall MD MCH (RBC) [Entitic mass] 29.1 pg Normal 25.2-33.5 [facility] Comment on above: Performed By: #### C DP, BNP, TROPI, BMP, PT, PTT #### [place] [address] Special Education Secretary: Felipe Randall MD MCHC (RBC) [Mass/Vol] 31.5 g/dL Normal 28.4-34.8 [facility] Comment on above: Performed By: #### C DP, BNP, TROPI, BMP, PT, PTT #### [address] [address] Special Education Secretary: Felipe Randall MD MCV (RBC) [Entitic vol] 92.1 fL Normal 82.6-102.9 [facility] Comment on above: Performed By: #### C DP, BNP, TROPI, BMP, PT, PTT #### [address] [address] Special Education Secretary: Felipe Randall MD Monocytes (Bld) [#/Vol] 0.62 10*3/uL Normal 0.10-1.20 [facility] Comment on above: Performed By: #### C DP, BNP, TROPI, BMP, PT, PTT #### [address] [address] Special Education Secretary: Felipe Randall MD Monocytes/100 WBC (Bld) 7 % Normal 3-12 [facility] Comment on above: Performed By: #### C DP, BNP, TROPI, BMP, PT, PTT #### [address] [address] Special Education Secretary: Felipe Randall MD Neutrophil (Seg) 57 % Normal 36-65 [facility] Comment on above: Performed By: #### C DP, BNP, TROPI, BMP, PT, PTT #### [address] [address] Special Education Secretary: Felipe Randall MD NRBC Automated 0.0 per 100 WBC Normal 0.0 [facility] Comment on above: Performed By: #### C DP, BNP, TROPI, BMP, PT, PTT #### [address] [address] Special Education Secretary: Felipe Randall MD Platelet mean volume (Bld) [Entitic vol] 10.4 fL Normal 8.1-13.5 [facility] Comment on above: Performed By: #### C DP, BNP, TROPI, BMP, PT, PTT #### [address] [address] Special Education Secretary: Felipe Randall MD Platelets (Bld) [#/Vol] 278 10*3/uL Normal 138-453 [facility] Comment on above: Performed By: #### C DP, BNP, TROPI, BMP, PT, PTT #### [address] [address] Special Education Secretary: Felipe Randall MD RBC (Bld) [#/Vol] 3.82 10*6/uL Low 3.95-5.11 [facility] Comment on above: Performed By: #### C DP, BNP, TROPI, BMP, PT, PTT #### [address] [address] Special Education Secretary: Felipe Randall MD WBC (Bld) [#/Vol] 9.1 10*3/uL Normal 3.5-11.3 [facility] Comment on above: Performed By: #### C DP, BNP, TROPI, BMP, PT, PTT #### [address] [address] Special Education Secretary: Felipe Randall MD Auto Diff Performed NOT REPORTED Normal [facility] Comment on above: Performed By: #### C DP, BNP, TROPI, BMP, PT, PTT #### [address] [address] Special Education Secretary: Felipe Randall MD Platelets (Bld) [#/Vol] NOT REPORTED Normal [facility] Comment on above: Performed By: #### C DP, BNP, TROPI, BMP, PT, PTT #### [address] [address] Special Education Secretary: Felipe Randall MD RBC morphology finding Nom (Bld) NOT REPORTED Normal [facility] Comment on above: Performed By: #### C DP, BNP, TROPI, BMP, PT, PTT #### [address] [address] Special Education Secretary: Felipe Randall MD WBC Morphology NOT REPORTED Normal [facility] Comment on above: Performed By: #### C DP, BNP, TROPI, BMP, PT, PTT #### [facility] [place] [address] Special Education Secretary: Felipe Randall MD Lactic Acidon 09-03-2018 Lactate [Moles/Vol] 1.0 mmol/L Normal 0.7-2.1 [facility] Comment on above: Performed By: #### U A UMICAO #### [facility] [address] [place] [address] Special Education Secretary: Felipe Randall MD Lactate [Moles/Vol] NOT REPORTED Normal [facility] Comment on above: Performed By: #### U ANEOO #### [facility] [employer] [address] [place] [address] Special Education Secretary: Felipe Randall MD Liver Profileon 09-03-2018 Albumin [Mass/Vol] 2.9 g/dL Low 3.5-5.2 [facility] Comment on above: Performed By: #### U A UMICAO #### [facility] [employer] [address] [place] [address] Special Education Secretary: Felipe Randall MD Albumin/Globulin [Mass ratio] 0.7 {ratio} Low 1.0-2.5 [facility] Comment on above: Performed By: #### U A UMICAO #### [facility] [address] [place] [address] Special Education Secretary: Felipe Randall MD Alkaline Phos 50 U/L Normal 35-104 [facility] Comment on above: Performed By: #### U A UMICAO #### [facility] [employer] [address] [place] [address] Special Education Secretary: Felipe Randall MD ALT [Catalytic activity/Vol] 6 U/L Normal 5-33 [facility] Comment on above: Performed By: #### U TAYLOR Young #### [facility] [facility] [address] [place] [address] Special Education Secretary: Felipe Randall MD AST [Catalytic activity/Vol] 16 U/L Normal <32 [facility] Comment on above: Performed By: #### U TAYLOR Young #### [facility] [address] [place] [address] Special Education Secretary: Felpie Randall MD Bilirubin Ql (U) 0.32 mg/dL Normal 0.3-1.2 [facility] Comment on above: Performed By: #### U TAYLOR Young #### [facility] [employer] [address] [place] [address] Special Education Secretary: Felipe Randall MD Bilirubin, Indirect 0.22 mg/dL Normal 0.00-1.00 [facility] Comment on above: Performed By: #### TAYLOR Masters #### [facility] [address] [place] [address] Special Education Secretary: Felipe Randall MD Bilirubin.direct [Mass/Vol] 0.10 mg/dL Normal <0.31 [facility] Comment on above: Performed By: #### U TAYLOR Young #### [facility] [address] [place] [address] Special Education Secretary: Felipe Randall MD Protein [Mass/Vol] 7.0 g/dL Normal 6.4-8.3 [facility] Comment on above: Performed By: #### U NEO YoungO #### [facility] [facility] [address] [place] [address] Special Education Secretary: Felipe Randall MD Globulin (S) [Mass/Vol] NOT REPORTED Normal 1.5-3.8 [facility] Comment on above: Performed By: #### U Hannah, NEOO #### [facility] [address] [place] [address] Special Education Secretary: Felipe Randall MD MRSA, DNA, Nasalon 9 MRSA, DNA, Nasal POSITIVE: MRSA DNA detected by nucleic acid amplification. Abnormal NMRSAA [facility] Comment on above: Result Comment: Results should be used as an adjunct to nosocomial control efforts to identify patients needing enhanced precautions. The test is not intended to identify patients with staphylococcal infections. Results should not be used to guide or monitor treatment for MRSA infections. Performed By: #### U Hannah, NEOO #### [facility] [address] [place] [address] Special Education Secretary: Felipe Randall MD Specimen Description .NASAL SWAB Normal [facility] Comment on above: Performed By: #### TAYLOR Masters #### [facility] [address] [place] [address] Special Education Secretary: Felipe Randall MD Magnesiumon 09-03-2018 Magnesium [Mass/Vol] 1.5 mg/dL Low 1.6-2.6 [facility] Comment on above: Performed By: #### U NEO YoungO #### [facility] [facility] [address] [place] [address] Special Education Secretary: Felipe Randall MD PTon 09-03-2018 INR Coag (PPP) [Relative time] 1.0 {INR} Normal [facility] Comment on above: Result Comment: Therapeutic Range: Moderate Anticoagulant Intensity: INR = 2.0-3.0 High Anticoagulant Intensity: INR = 2.5-3.5 Performed By: #### U Hannah UMKONGO #### [facility] [facility] [address] [place] [address] Special Education Secretary: Felipe Randall MD PT Coag (PPP) [Time] 10.6 s Normal 9.0-12.0 [facility] Comment on above: Performed By: #### U TAYLOR Yougn #### [facility] [address] [place] [address] Special Education Secretary: Felipe Randall MD INR Coag (PPP) [Relative time] 1.0 {INR} Normal [facility] Comment on above: Result Comment: Therapeutic Range: Moderate Anticoagulant Intensity: INR = 2.0-3.0 High Anticoagulant Intensity: INR = 2.5-3.5 Performed By: #### TAYLOR Masters #### [facility] [address] [place] [address] Special Education Secretary: Felipe Randall MD PT Coag (PPP) [Time] 10.8 s Normal 9.0-12.0 [facility] Comment on above: Performed By: #### TAYLOR Masters #### [facility] [address] [place] [address] Special Education Secretary: Felipe Randall MD TSH w/reflex to FT4on 2018 TSH Qn 1.30 m[IU]/L Normal 0.30-5.00 [facility] Comment on above: Performed By: #### TAYLOR Masters #### [facility] [address] [place] [address] Special Education Secretary: Felipe Randall MD Troponinon 09-03-2018 Troponin I.cardiac [Mass/Vol] 96 ng/L Critically high 0-14 [facility] Comment on above: Result Comment: High Sensitivity Troponin values cannot be compared with other Troponin methodologies. Patients with high levels of Biotin oral intake (i.e >5mg/day) may have falsely decreased Troponin levels. Samples collected within 8 hours of biotin intake may require additional information for diagnosis. Previous Alert Value Reported Performed By: #### U TAYLOR Young #### [facility] [address] [place] [address] Special Education Secretary: Felipe Randall MD Troponin I.cardiac [Mass/Vol] NOT REPORTED Normal [facility] Comment on above: Performed By: #### U A, UMICAO #### [facility] [address] [place] [address] Special Education Secretary: Felipe Randall MD Troponin I.cardiac [Mass/Vol] 133 ng/L Critically high 0-14 [facility] Comment on above: Result Comment: High Sensitivity Troponin values cannot be compared with other Troponin methodologies. Patients with high levels of Biotin oral intake (i.e >5mg/day) may have falsely decreased Troponin levels. Samples collected within 8 hours of biotin intake may require additional information for diagnosis. Previous Alert Value Reported Performed By: #### U A, UMICAO #### [employer] [address] [place] [address] Special Education Secretary: Felipe Randall MD Troponin I.cardiac [Mass/Vol] NOT REPORTED Normal <0.03 [facility] Comment on above: Performed By: #### U A, UMICAO #### [facility] [address] [place] [address] Special Education Secretary: Felipe Randall MD Troponin I.cardiac [Mass/Vol] 132 ng/L Critically high 0-14 [facility] Comment on above: Result Comment: High Sensitivity Troponin values cannot be compared with other Troponin methodologies. Patients with high levels of Biotin oral intake (i.e >5mg/day) may have falsely decreased Troponin levels. Samples collected within 8 hours of biotin intake may require additional information for diagnosis. Performed By: #### C DP, BNP, TROPI, BMP, PT, PTT #### [facility] [address] [place] [address] Special Education Secretary: Felipe Randall MD Troponin I.cardiac [Mass/Vol] NOT REPORTED Normal [facility] Comment on above: Performed By: #### C DP, BNP, TROPI, BMP, PT, PTT #### [employer] [address] [place] [address] Special Education Secretary: Felipe Randall MD Vitamin D 25 OHon 09-03-2018 Vitamin D 25 [place] 34.6 ng/mL Normal 30.0-100.0 [facility] Comment on above: Result Comment: Reference Range: Vitamin D status Range Deficiency <20 ng/mL Mild Deficiency 20-30 ng/mL Sufficiency 30-100 ng/mL Toxicity >100 ng/mL Performed By: #### U NEO YoungO #### [address] [address] Special Education Secretary: Felipe Randall MD Cult,Urineon 09-01-2018 Cult,Urine Specimen Description .URINE Special Requests 1ST INSERTION Culture AEROCOCCUS URINAE >[id number] CFU/ML There are no CLSI interpretive guidelines for routine susceptibility testing. Aerococcus species are reported to be susceptible to penicillin. A. urinae has also been described as susceptible to amoxicillin and nitrofurantoin (for treatment of urinary tract infections only). Report Status FINAL 08/31/2018 Normal [facility] Comment on above: Performed By: #### U RC #### [address] [address] Special Education Secretary: Felipe Randall MD CBCon 08-31-2018 Erythrocyte distribution width (RBC) [Ratio] 13.4 % Normal 11.8-14.4 [facility] Comment on above: Performed By: #### C BC #### [address] [address] Special Education Secretary: Felipe Randall MD Hematocrit (Bld) [Volume fraction] 39.8 % Normal 36.3-47.1 [facility] Comment on above: Performed By: #### C BC #### [facility] [address] [place] [phone] Special Education Secretary: Felipe Randall MD Hemoglobin (Bld) [Mass/Vol] 11.6 g/dL Low 11.9-15.1 [facility] Comment on above: Performed By: #### C BC #### [address] [address] Special Education Secretary: Felipe Randall MD MCH (RBC) [Entitic mass] 28.9 pg Normal 25.2-33.5 [facility] Comment on above: Performed By: #### C BC #### [address] [address] Special Education Secretary: Felipe Randall MD MCHC (RBC) [Mass/Vol] 29.1 g/dL Normal 28.4-34.8 [facility] Comment on above: Performed By: #### C BC #### [address] [address] Special Education Secretary: Felipe Randall MD MCV (RBC) [Entitic vol] 99.0 fL Normal 82.6-102.9 [facility] Comment on above: Performed By: #### C BC #### [address] [address] Special Education Secretary: Felipe Randall MD NRBC Automated 0.0 per 100 WBC Normal 0.0 [facility] Comment on above: Performed By: #### C BC #### [address] [address] Special Education Secretary: Felipe Randall MD Platelet mean volume (Bld) [Entitic vol] 11.2 fL Normal 8.1-13.5 [facility] Comment on above: Performed By: #### C BC #### [address] [address] Special Education Secretary: Felipe Randall MD Platelets (Bld) [#/Vol] 239 10*3/uL Normal 138-453 [facility] Comment on above: Performed By: #### C BC #### [address] [address] Special Education Secretary: Felipe Randall MD RBC (Bld) [#/Vol] 4.02 10*6/uL Normal 3.95-5.11 [facility] Comment on above: Performed By: #### C BC #### [facility] [facility] [address] [place] [address] Special Education Secretary: Felipe Randall MD WBC (Bld) [#/Vol] 10.1 10*3/uL Normal 3.5-11.3 [facility] Comment on above: Performed By: #### C BC #### [facility] [address] [place] [address] Special Education Secretary: Felipe Randall MD XR CERVICAL SPINE (2-3 VIEWS )on 08-31-2018 XR CERVICAL SPINE (2-3 VIEWS) EXAMINATION: TWO XRAY VIEWS OF THE CERVICAL SPINE 08/30/2018 10:41 am COMPARISON: Initial evaluation HISTORY: ORDERING SYSTEM PROVIDED HISTORY: Intra op TECHNOLOGIST PROVIDED HISTORY: Intra op Reason for Exam: C4-C5 fusion in OR, fluoro time: 26.2 sec, cumulative dose: 9.05 mGy There are two intraoperative exposures. FINDINGS: C-arm was provided for intraoperative cervical spine fusion. The procedure was performed by Dr. Zaidi. A screw and plate has been applied to the anterior aspect of the C4-5 vertebral bodies with intervertebral spacer. Refer to the intraoperative report for full detail. IMPRESSION: C-arm provided for intraoperative cervical spine fusion at C4-5. Refer to the intraoperative report for full detail. Interpreted by: Sanaz Mullins MD Signed by: Sanaz Mullins MD 08/31/18 Final result Normal [facility] XR CERVICAL SPINE (2-3 VIEWS) EXAMINATION: 2 XRAY VIEWS OF THE CERVICAL SPINE 08/31/2018 9:49 am COMPARISON: Fluoroscopy from August 30, 2018 HISTORY: ORDERING SYSTEM PROVIDED HISTORY: post-op TECHNOLOGIST PROVIDED HISTORY: AP AND lateral post-op FINDINGS: AP and lateral views of the cervical spine demonstrate anterior cervical fusion of C4-C5 with prevertebral soft tissue swelling and a soft tissue drain. No acute osseous abnormality. IMPRESSION: Expected postoperative changes from anterior cervical fusion. Interpreted by: Pepe Mckeon MD Signed by: Pepe Mckeon MD 08/31/18 Final result Normal [facility] Type + Screenon 08-30-2018 Type + Screen Sample Expiration 09/02/2018 Arm Band Number [id number] ABO/Rh(D) AB POSITIVE Antibody Screen NEGATIVE Normal [facility] Comment on above: Performed By: #### T YS #### [address] [address] Special Education Secretary: Felipe Randall MD Urinalysis, Routineon 2018 Acetoacetic Acid,Ur Negative Normal NEG [facility] Comment on above: Performed By: #### U A, UMICAO #### [facility] [address] [place] [address] Special Education Secretary: Felipe Randall MD Bilirubin, SemiQt,Ur Negative Normal NEG [facility] Comment on above: Performed By: #### U A, UMICAO #### [facility] [address] [place] [address] Special Education Secretary: Felipe Randall MD Color (U) YELLOW Normal YEL [facility] Comment on above: Performed By: #### U A, UMICAO #### [facility] [address] [place] [address] Special Education Secretary: Felipe Randall MD Glucose Ql (U) Negative Normal NEG [facility] Comment on above: Performed By: #### U A, UMICAO #### [facility] [address] [place] [address] Special Education Secretary: eFlipe Randall MD Hemoglobin, Ur SMALL Abnormal NEG [facility] Comment on above: Performed By: #### U A, UMICAO #### [facility] [address] [place] [address] Special Education Secretary: Felipe Randall MD Leukocyte esterase Test strip Ql (U) LARGE Abnormal NEG [facility] Comment on above: Performed By: #### U A, UMICAO #### [facility] [address] [place] [address] Special Education Secretary: Felipe Randall MD Nitrite,Ur Negative Normal NEG [facility] Comment on above: Performed By: #### U A, UMICAO #### [facility] [address] [place] [address] Special Education Secretary: Felipe Randall MD pH (U) 6.0 [pH] Normal 5.0-8.0 [facility] Comment on above: Performed By: #### U A, UMICAO #### [facility] [address] [place] [address] Special Education Secretary: Felipe Randall MD Protein Ql (U) TRACE Abnormal NEG [facility] Comment on above: Performed By: #### U A, UMICAO #### [facility] [address] [place] [address] Special Education Secretary: Felipe Randall MD Specific gravity (U) [Rel density] 1.008 Normal 1.005-1.030 [facility] Comment on above: Performed By: #### U A, UMICAO #### [facility] [facility] [address] [place] [address] Special Education Secretary: Felipe Randall MD Turbidity TURBID Abnormal CLEAR [facility] Comment on above: Performed By: #### U A, UMICAO #### [facility] [facility] [address] [place] [address] Special Education Secretary: Felipe Randall MD Urobilinogen,Ur Normal Normal NORM [facility] Comment on above: Performed By: #### U A, UMICAO #### [address] [address] Special Education Secretary: Felipe Randall MD Comment NOT REPORTED Normal [facility] Comment on above: Performed By: #### U A, UMICAO #### [facility] [facility] [address] [place] [address] Special Education Secretary: Felipe Randall MD Urinalysis,Microon 9 ----- Normal [facility] Comment on above: Performed By: #### U A, UMICAO #### [address] [address] Special Education Secretary: Felipe Randall MD Bacteria LM.HPF (Urine sed) [#/Area] MANY Abnormal NONE [facility] Comment on above: Performed By: #### U A, UMICAO #### [facility] [address] [place] [address] Special Education Secretary: Felipe Randall MD Casts LM.LPF (Urine sed) [#/Area] 2 TO 5 HYALINE Normal 0-8 [facility] Comment on above: Result Comment: Refe rence range defined for non-centrifuged specimen. Performed By: #### U A, UMICAO #### [facility] [address] [place] [address] Special Education Secretary: Felipe Randall MD Epithelial cells LM.HPF (Urine sed) [#/Area] 0 TO 2 Normal 0-5 [facility] Comment on above: Performed By: #### U A, UMICAO #### [facility] [facility] [address] [place] [address] Special Education Secretary: Felipe Randall MD RBC (U) [#/Vol] 5 TO 10 Normal 0-4 [facility] Comment on above: Result Comment: Refe rence range defined for non-centrifuged specimen. Performed By: #### U A, UMICAO #### [address] [address] Special Education Secretary: Felipe Randall MD WBC (U) [#/Vol] TOO NUMEROUS TO COUNT Normal 0-5 [facility] Comment on above: Performed By: #### U A, UMICAO #### [facility] [address] [place] [address] Special Education Secretary: Felipe Randall MD Amorphous sediment LM Ql (Urine sed) NOT REPORTED Normal NONE [facility] Comment on above: Performed By: #### U A, UMICAO #### [facility] [address] [place] [place] [phone] Special Education Secretary: Felipe Randall MD Crystals LM Nom (Urine sed) NOT REPORTED Normal NONE [facility] Comment on above: Performed By: #### U A, UMICAO #### [facility] [address] [place] [phone] Special Education Secretary: Felipe Randall MD Epithelial, Renal NOT REPORTED Normal 0 [facility] Comment on above: Performed By: #### U A, UMICAO #### [facility] [address] [place] [phone] Special Education Secretary: Felipe Randall MD Mucus Strands NOT REPORTED Normal NONE [facility] Comment on above: Performed By: #### U A, UMICAO #### [facility] [address] [place] [phone] Special Education Secretary: Felipe Randall MD Other Observations NOT REPORTED Normal NREQ [facility] Comment on above: Performed By: #### U A, UMICAO #### [facility] [address] [place] [phone] Special Education Secretary: Felipe Randall MD Trichomonas NOT REPORTED Normal NONE [facility] Comment on above: Performed By: #### U A, UMICAO #### [facility] [address] [place] [phone] Special Education Secretary: Felipe Randall MD Yeast LM Ql (Urine sed) NOT REPORTED Normal [facility] Comment on above: Performed By: #### U A, UMICAO #### [facility] [address] [place] [phone] Special Education Secretary: Felipe Randall MD MRI CERVICAL SPINE WO CONTRA STon 07-14-2018 MRI CERVICAL SPINE WO CONTRAST EXAMINATION: MRI OF THE CERVICAL SPINE WITHOUT CONTRAST 07/14/2018 2:23 pm TECHNIQUE: Multiplanar multisequence MRI of the cervical spine was performed without the administration of intravenous contrast. COMPARISON: None. HISTORY: ORDERING SYSTEM PROVIDED HISTORY: Chronic incomplete quadriplegia (HCC) TECHNOLOGIST PROVIDED HISTORY: Ordering Physician Provided Reason for Exam: chronic incomplete quadriplegia Additional signs and symptoms: lower back pain, arm problems amd numb from waiste down for over a year FINDINGS: BONES/ALIGNMENT: There straightening of the normal cervical spine lordotic curvature. Degenerative endplate signal changes are noted at C5-6. There is no acute fracture SPINAL CORD: Cord signal evaluation is limited due to artifact. Increased signal in the cord is noted on both sides of midline at the upper C5 level. SOFT TISSUES: Multiple small cervical nodes are present. C2-C3: Mild endplate and facet hypertrophic changes are noted. C3-C4: Minimal disc bulging is noted. Mild endplate and facet hypertrophic changes are noted. Mild foraminal narrowing is noted, left greater than right. Mild narrowing of the canal is noted C4-C5: Diffuse disc bulging is noted. There is a broad-based right paracentral protrusion. Smaller left proximal foraminal protrusion is noted. Endplate, uncovertebral and facet hypertrophic changes are noted. Severe foraminal narrowing is noted, left greater than right. Cord compression is noted with severe canal narrowing. C5-C6: Minimal disc bulging is noted with a broad-based right paracentral protrusion. Ventral cord flattening is noted. Moderate narrowing of the canal right of midline is noted. There is a suggested left foraminal protrusion. Severe left foraminal narrowing is noted. There is moderate to severe right foraminal narrowing. C6-C7: Minimal disc bulging is noted. Minimal endplate and mild facet hypertrophic changes are noted. Mild foraminal narrowing is noted bilaterally C7-T1: Facet hypertrophic changes are noted. IMPRESSION: Multilevel degenerative disc disease throughout the cervical spine as described. See above for detailed description of every level High signal in the cord is noted on both sides of midline at the upper C5 level myelomalacia related to the cord compression just above this level is favored. Interpreted by: Ilsa Finch MD Signed by: Ilsa Finch MD 07/14/18 Final result Normal [facility] Vital Signs Date Time Vital Sign Value Performing Clinician Facility 04-19-2023 14:07-0400 Body weight 158.76 kg Apurva Campa MD Work Phone: [facility] 04-19-2023 14:07-0400 Diastolic blood pressure 87 mm[Hg] Apurva Campa MD Work Phone: [facility] 04-19-2023 14:07-0400 Heart rate 80 /min Apurva Campa MD Work Phone: [facility] 04-19-2023 14:07-0400 Systolic blood pressure 131 mm[Hg] Apurva Campa MD Work Phone: [facility] 02-16-2023 10:00-0500 Body height 187.96 cm Lon Ibrahim Other [employer] Other 02-16-2023 10:00-0500 Body mass index (BMI) [Ratio] 45.32 kg/m2 Lon Telefonicas Other [employer] Other 02-16-2023 10:00-0500 Body weight 160.12 kg Lon Telefonicas Other [employer] Other 02-16-2023 10:00-0500 Diastolic blood pressure 86 mm[Hg] Lon Telefonicas Other [employer] Other 02-16-2023 10:00-0500 Respiratory rate 18 /min Lon Telefonicas Other [employer] Other 02-16-2023 10:00-0500 SaO2% (BldA) [Mass fraction] 93 % Lon Telefonicas Other [employer] Other 02-16-2023 10:00-0500 Systolic blood pressure 126 mm[Hg] Lon Telefonicas Other [employer] Other 01-12-2023 17:40-0500 Body height 187.96 cm Kelly Jeremias Other [employer] Other 01-12-2023 17:40-0500 Body mass index (BMI) [Ratio] 38.51 kg/m2 Kelly Mcdowell Other [employer] Other 01-12-2023 17:40-0500 Body temperature 97.9 [degF] Kelly Mcdowell Other [employer] Other 01-12-2023 17:40-0500 Body weight 136.08 kg Kelly Mcdowell Other [employer] Other 01-12-2023 17:40-0500 Respiratory rate 18 /min Kelly Mcdowell Other [employer] Other 01-12-2023 17:40-0500 SaO2% (BldA) [Mass fraction] 93 % Kelly Mcdowell Other [employer] Other 12-21-2022 11:56-0500 Body height 188 cm Moises Willis MD Work Phone: [facility] 12-21-2022 11:56-0500 Body weight 136.08 kg Moises Willis MD Work Phone: [facility] 12-21-2022 11:56-0500 Diastolic blood pressure 91 mm[Hg] Moises Willis MD Work Phone: [facility] 12-21-2022 11:56-0500 Heart rate 87 /min Moises Willis MD Work Phone: [facility] 12-21-2022 11:56-0500 Respiratory rate 16 /min Moises Willis MD Work Phone: [facility] 12-21-2022 11:56-0500 SaO2% (BldA) [Mass fraction] 98 % Moises Willis MD Work Phone: [facility] 12-21-2022 11:56-0500 Systolic blood pressure 122 mm[Hg] Moises Willis MD Work Phone: [facility] 09-21-2022 09:26-0400 Body height 188 cm Moises Willis MD Work Phone: [facility] 09-21-2022 09:26-0400 Body weight 136.08 kg Moises Willis MD Work Phone: [facility] 09-21-2022 09:26-0400 Diastolic blood pressure 67 mm[Hg] Moises Willis MD Work Phone: [facility] 09-21-2022 09:26-0400 Heart rate 77 /min Moises Willis MD Work Phone: [facility] 09-21-2022 09:26-0400 Respiratory rate 18 /min Moises Willis MD Work Phone: [facility] 09-21-2022 09:26-0400 SaO2% (BldA) [Mass fraction] 96 % Moises Willis MD Work Phone: [facility] 09-21-2022 09:26-0400 Systolic blood pressure 119 mm[Hg] Moises Willis MD Work Phone: [facility] 03-26-2022 11:15-0500 Body height 187.96 cm Lon Telefon[employer] Other [employer] Other 03-26-2022 11:15-0500 Body mass index (BMI) [Ratio] 42.83 kg/m2 LonNightingales Other [employer] Other 03-26-2022 11:15-0500 Body weight 151.32 kg Lon [employer] Other [employer] Other 03-26-2022 11:15-0500 Diastolic blood pressure 76 mm[Hg] Lon Kuns Other [employer] Other 03-26-2022 11:15-0500 Respiratory rate 16 /min Lon Kuns Other [employer] Other 03-26-2022 11:15-0500 SaO2% (BldA) [Mass fraction] 95 % Lon Kuns Other [employer] Other 03-26-2022 11:15-0500 Systolic blood pressure 112 mm[Hg] Lon Kuns Other [employer] Other 02-26-2022 11:15-0500 Body height 187.96 cm Lon Kuns Other [employer] Other 02-26-2022 11:15-0500 Body mass index (BMI) [Ratio] 43.65 kg/m2 Lon Kuns Other [employer] Other 02-26-2022 11:15-0500 Body weight 154.22 kg Lon Kuns Other [employer] Other 02-26-2022 11:15-0500 Diastolic blood pressure 84 mm[Hg] Lon Kuns Other [employer] Other 02-26-2022 11:15-0500 Respiratory rate 16 /min Lon Kuns Other [employer] Other 02-26-2022 11:15-0500 SaO2% (BldA) [Mass fraction] 95 % Lon Kuns Other [employer] Other 02-26-2022 11:15-0500 Systolic blood pressure 136 mm[Hg] Lon Ibrahim Other [employer] Other 10-24-2021 14:30-0400 Body height 187.96 cm Lon Ibrahim Other [employer] Other 09-16-2021 08:20-0400 Blood Pressure Location Mihir Cheatham Jr. [facility] 09-16-2021 08:20-0400 Respiratory rate 16 /min Mihir Linden Villarreal [facility] 07-09-2021 13:05-0400 Blood Pressure Location [facility]EZ [facility] 07-09-2021 13:05-0400 Diastolic blood pressure 89 mm[Hg] ANGELITA PAEZ [facility] 07-09-2021 13:05-0400 Heart rate 79 /min ANGELITA PAEZ [facility] 07-09-2021 13:05-0400 Systolic blood pressure 125 mm[Hg] ANGELITA MARYJANE [facility] En[facility] Encounter Date Encounter Type Care Provider Facility Start: 06-22-2023 ambulatory [facility] Facility: [facility] Start: 04-26-2023 Chart abstracting Apurva Gary Work Phone: Urology Start: 04-20-2023 Telephone encounter Apurva Campa MD Work Phone: Urology Start: 04-19-2023 End: 04-20-2023 ambulatory LON IBRAHIM Facility:[facility] Start: 04-19-2023 End: 04-19-2023 Patient encounter procedure Apurva Campa MD Work Phone: Urology Comment on above: Bilateral hydronephr osis (Primary Dx); Bladder mass; Hydronephrosis, unspecified hydronephrosis type; Mild protein-calorie malnutrition (HCC); Morbid (severe) obesity due to excess calories (HCC) Start: 04-15-2023 End: 04-15-2023 [facility] Start: 04-15-2023 End: 04-15-2023 Telemedicine consultation with patient [facility] Work Phone: [facility] Start: 04-15-2023 End: 04-15-2023 [facility] Comment on above: Other hydronephrosis (Primary Dx); Bladder mass Start: 04-15-2023 End: 04-15-2023 [facility] Comment on above: Abnormal finding of diagnostic imaging [R93.89] Start: 03-30-2023 End: 03-30-2023 ambulatory JANINA [facility] Facility:[facility] Start: 03-25-2023 Telephone encounter Janina Peterson ams DRUG ABUSE SOCIAL WORKER.DRIVER MERCHANDISER Work Phone: Radiology Start: 03-24-2023 E-mail encounter harriett rowan caregiver Nicole Engle PA-C Work Phone: [facility] Start: 03-24-2023 Follow-up encounter Nicole trivedi PA-C Work Phone: Radiology Comment on above: Actionable Findings Follow-Up Start: 02-16-2023 End: 02-16-2023 ambulatory Lon Ibrahim Other [employer] Other Start: 02-16-2023 Patient encounter procedure Lon Ibrahim [facility] Start: 01-15-2023 End: 01-15-2023 ambulatory Lon Ibrahim Facility:[facility] Start: 01-15-2023 End: 01-15-2023 ambulatory DO Lon Kuns Work Phone: [facility] Work Phone: Start: 01-15-2023 End: 01-15-2023 Patient encounter procedure DO Lon Kuns Work Phone: [facility] [place] Work Phone: Start: 01-13-2023 End: 01-13-2023 ambulatory Lonalondra Morejons Other [employer] Other Start: 01-13-2023 Telephone encounter Lon Morejons [facility] Start: 01-12-2023 End: 01-12-2023 Departed Referred DO Lon Kuns Work Phone: [facility] [place] Work Phone: Start: 01-12-2023 End: 01-12-2023 ambulatory PHYSICIAN NO [facility] [employer] Other Start: 01-12-2023 Office outpatient vi sit 15 minutes Kelly Mcdowell [facility] Start: 01-08-2023 End: 01-08-2023 ambulatory Lonalondra Ibrahim Other [employer] Other Start: 01-08-2023 Telephone encounter Lon Ibrahim [facility] Start: 12-21-2022 End: 12-21-2022 ambulatory LON IBRAHIM Facility:[facility] Start: 12-21-2022 End: 12-21-2022 Patient encounter procedure Moises Willis MD Work Phone: [facility] Comment on above: Spinal stenosis, lum bar region with neurogenic claudication (Primary Dx) Start: 12-21-2022 End: 12-21-2022 Subsequent hospital visit by physician Magdaleno Sheikh J1-4 Work Phone: Radiology Comment on above: Spinal stenosis, lum bar region with neurogenic claudication [M48.062] Start: 11-30-2022 End: 11-30-2022 ambulatory Lon Ibrahim Other [employer] Other Start: 11-30-2022 Telephone encounter Lon Ibrahim [facility] Start: 11-27-2022 End: 11-27-2022 ambulatory LON YANCEY LINDAAna Facility:[facility] Start: 11-27-2022 End: 11-27-2022 ambulatory Champ Fierrous PEARSON Work Phone: [facility] Comment on above: Spinal stenosis, lum bar region with neurogenic claudication (Primary Dx); Spinal stenosis of lumbar region with neurogenic claudication Start: 11-27-2022 End: 11-27-2022 Telemedicine consultation with patient Champ Patel MICHEL Work Phone: [facility] Start: 11-16-2022 End: 11-16-2022 ambulatory LON IBRAHIM Facility:[facility] Start: 11-16-2022 End: 11-16-2022 Subsequent hospital visit by physician Mri [facility] (Lg Bore/1.5t) Radiology MRI Comment on above: Spinal stenosis of l umbar region, unspecified whether neurogenic claudication present [M48.061] Start: 10-16-2022 ambulatory Moises Willis MD Work Phone: [facility] Comment on above: mri dvd Start: 10-09-2022 End: 10-09-2022 ambulatory Lon Evelia Other [employer] Other Start: 10-09-2022 Telephone encounter Lonalondra Morejonana [facility] Start: 09-24-2022 End: 09-24-2022 ambulatory Lon Ibrahim Other [employer] Other Start: 09-24-2022 Telephone encounter Lon Ibrahim [facility] Start: 09-21-2022 End: 09-21-2022 ambulatory MOISES WILLIS Facility:[facility] Start: 09-21-2022 End: 09-21-2022 Subsequent hospital visit by physician [facility] Radiology Comment on above: Spinal stenosis of l umbar region, unspecified whether neurogenic claudication present [M48.061] Start: 09-21-2022 End: 09-22-2022 ambulatory MOISES CHANELL Facility:[facility] Start: 09-21-2022 End: 09-21-2022 Patient encounter procedure Moises Willis MD Work Phone: [facility] Comment on above: Spinal stenosis of l umbar region, unspecified whether neurogenic claudication present (Primary Dx); Spinal stenosis in cervical region; Arm weakness Start: 09-10-2022 End: 09-10-2022 ambulatory Lon Ibrahim Other [employer] Other Start: 09-10-2022 Telephone encounter Lon Ibrahim [facility] Start: 09-03-2022 End: 09-03-2022 ambulatory Lon Ibrahim Other [employer] Other Start: 09-03-2022 Telephone encounter Lon Ibrahim [facility] Start: 07-28-2022 End: 07-28-2022 ambulatory Bryce Lara APRN.DRIVER MERCHANDISER Work Phone: [facility] Comment on above: Emg Start: 07-28-2022 Telephone encounter Bryce polanco DRUG ABUSE SOCIAL WORKER.DRIVER MERCHANDISER Work Phone: [facility] Comment on above: Patient Update Start: 07-17-2022 Telephone encounter Bryce polanco DRUG ABUSE SOCIAL WORKER.DRIVER MERCHANDISER Work Phone: Neurology Comment on above: MRI Report Start: 07-16-2022 Telephone encounter Bryce polanco DRUG ABUSE SOCIAL WORKER.DRIVER MERCHANDISER Work Phone: Neurology Comment on above: Scans Start: 07-13-2022 End: 07-16-2022 ambulatory [facility] Start: 07-13-2022 End: 07-15-2022 Subsequent hospital visit by physician [facility] Cat Scan Room [facility] CT Scan Comment on above: Spinal stenosis, cer vical region Start: 06-29-2022 End: 06-30-2022 ambulatory LON ANTONIO Facility:[facility] Start: 06-17-2022 Chart abstracting Unk Pcp Justo broderick) Neurology Start: 06-16-2022 End: 06-17-2022 ambulatory Nicole KEENE Facility:[facility] Start: 05-26-2022 End: 05-26-2022 ambulatory Lon Ibrahim Facility:[facility] Start: 05-18-2022 End: 05-21-2022 [facility] Start: 05-18-2022 End: 05-20-2022 Subsequent hospital visit by physician [facility] Mri Scanner [facility] MRI Comment on above: Cervical myelopathy (HCC) Start: 04-07-2022 End: 04-07-2022 ambulatory Lon Ibrahim Other [employer] Other Start: 04-07-2022 Telephone encounter Lon Ibrahim [facility] Start: 03-31-2022 End: 03-31-2022 ambulatory Lon Ibrahim Other [employer] Other Start: 03-31-2022 Telephone encounter Lon Ibrahim [facility] Start: 03-26-2022 End: 03-26-2022 ambulatory Lon Ibrahim Other [employer] Other Start: 03-26-2022 Office outpatient vi sit 25 minutes Lon Ibrahim [facility] Start: 03-13-2022 End: 04-08-[address] LON IBRAHIM Facility:[facility] Start: 03-09-2022 End: 03-09-2022 ambulatory Lon Ibrahim Other [employer] Other Start: 03-09-2022 Telephone encounter Lon Ibrahim [facility] [place] Start: 03-06-2022 ambulatory ILSA [facility] Start: 02-26-2022 End: 02-26-2022 ambulatory Lon Ibrahim Other [employer] Other Start: 02-26-2022 Office outpatient vi sit 25 minutes Lonalondra Morejons [facility] [place] Start: 02-24-2022 End: 02-25-2022 ambulatory Nicole W RICE Facility:[facility] Start: 02-24-2022 End: 02-25-2022 ambulatory Nicole W RICE Facility:[facility] Start: 02-24-2022 End: 02-24-2022 Lab Drop off Nicole KEENE [facility] Start: 02-24-2022 End: 02-24-2022 Patient encounter procedure Nicole KEENE [facility] Start: 02-16-2022 End: 02-16-2022 ambulatory Lon Ibrahim Other [employer] Other Start: 02-16-2022 Telephone encounter Lon Ibrahim [facility] [place] Start: 02-12-2022 End: 02-12-2022 ambulatory Lon Ibrahim Other [employer] Other Start: 02-12-2022 Telephone encounter Lon Morejons [facility] [place] Start: 12-30-2021 End: 12-31-2021 ambulatory Nicole W RICE [facility] Start: 12-22-2021 End: 12-23-2021 ambulatory Nicole W RICE Facility:[facility] Start: 12-22-2021 End: 12-23-2021 ambulatory Nicole W RICE Facility: [facility] Start: 12-10-2021 End: 12-11-2021 ambulatory Nicole W RICE Facility:[facility] Start: 10-24-2021 End: 10-24-2021 ambulatory Lon Kuns Other [employer] Other Start: 10-24-2021 Office outpatient vi sit 15 minutes Lon Kuns [facility] Start: 10-16-2021 End: 10-16-2021 Patient encounter procedure DO Lon Kuns Work Phone: [facility] [place] Start: 10-14-2021 End: 10-14-2021 ambulatory Lon Kuns Other [employer] Other Start: 10-14-2021 Telephone encounter Lon Kuns [facility] Start: 10-10-2021 End: 10-10-2021 ambulatory Lon Kuns Other [employer] Other Start: 10-10-2021 Telephone encounter Lon Kuns [facility] Start: 09-17-2021 End: 10-10-2021 Pre-admission assessment Mihir Cheatham Jr. [facility] Start: 09-16-2021 End: 09-17-2021 ambulatory Mihir Cheatham Facility:[facility] Start: 09-16-2021 End: 09-16-2021 Patient encounter procedure Mihir Cheatham Jr. [facility] Start: 07-21-2021 ambulatory Nicole KEENE Facility:[facility] Start: 07-21-2021 End: 07-22-2021 ambulatory Mihir Cheatham Facility:[facility] Start: 07-09-2021 End: 07-10-2021 ambulatory ANGELITA PAEZ Facility:[facility] Start: 07-09-2021 End: 07-10-2021 ambulatory ANGELITA PAEZ Facility:[facility] [place] Start: 07-09-2021 End: 07-09-2021 Lab Drop off ANGELITA PAEZ [facility] Start: 07-09-2021 End: 07-09-2021 Patient encounter procedure ANGELITA PAEZ [facility] Start: 07-01-2021 End: 07-01-2021 ambulatory Lon Kuns Other [employer] Other Start: 07-01-2021 Telephone encounter Lon Kuns [facility] Start: 05-12-2021 End: 05-12-2021 ambulatory Lon Kuns Other [employer] Other Start: 05-12-2021 Telephone encounter Lon Kuns [facility] Start: 04-10-2021 End: 04-10-2021 ambulatory Lon Kuns Other [employer] Other Start: 04-10-2021 Telephone encounter Lon Kuns [facility] Start: 02-24-2021 End: 02-24-2021 ambulatory Lon Kuns Other [employer] Other Start: 02-24-2021 Telephone encounter Lon Kuns [facility] Start: 01-23-2021 End: 01-23-2021 ambulatory Lon Kuns Other [employer] Other Start: 01-23-2021 Telephone encounter Lon Kuns [facility] [place] Start: 12-03-2020 Telephone encounter Lon Kuns [facility] [place] Start: 03-12-2020 End: 03-13-2020 ambulatory [place] Facility:[facility] Start: 12-28-2018 End: 12-31-2018 Patient encounter procedure JANINA HERNANDEZALVARO [facility] Start: 12-28-2018 End: 12-30-2018 Subsequent hospital visit by physician Juvencio C-Arm 2 [facility] Radiology Comment on above: S/P cervical spinal fusion; 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) Start: 09-03-2018 End: 09-07-2018 Evaluation and management of inpatient TUSHAR YOUNG [facility] Start: 08-30-2018 End: 08-31-2018 [facility] Start: 07-14-2018 End: 07-17-2018 Patient encounter procedure [facility] Procedures Date Procedure Procedure Detail Performing Clinician Start: 04-15-2023 Us retroperitoneal r eal time w/image complete Janina Hadley APRN.DRIVER MERCHANDISER Work Phone: Start: 12-21-2022 Radex spine lumbosac ral minimum 4 views Champ Patel PA-C Work Phone: Start: 11-16-2022 Mri spinal canal tho racic w/o contrast matrl Baljinder Keith MD Work Phone: Start: 09-21-2022 Radex entir thrc lmb r crv sac spi w/skull 2/3 vw Baljinder Keith MD Work Phone: Start: 05-18-2022 Mri spinal canal cer vical w/o contrast matrl Lon Antonio DO Work Phone: Start: 12-10-2021 Urodynamic studies Medhat KEENE Start: 07-21-2021 Cystourethroscopy an d dilation of bladder Mihir Cheatham Jr. Start: 03-12-2020 Anes intraperitoneal upper abdomen w/laps nos Start: 03-12-2020 Laparoscopic cholecystectomy REHAN BROWN Start: 03-11-2019 Transurethral resect ion of bladder neoplasm ANGELITA PAEZ Start: 12-28-2018 Radex spine cervical 2 or 3 views KAELYN AHAMMAD Start: 12-28-2018 Radex spine cervical 2 or 3 views Janina Qureshi Start: 09-06-2018 CPAP KAELYN AHA MMAD Start: 09-06-2018 Blood count complete auto&auto difrntl wbc KAELYN AHAMMAD Start: 09-06-2018 Comprehensive metabo lic panel KAELYN AHAMMAD Start: 09-06-2018 CPAP KAELYN AHA MMAD Start: 09-06-2018 DISCHARGE PATIENT ZUBAI R AHAMMAD Start: 09-06-2018 CPAP KAELYN AHA MMAD Start: 09-06-2018 CPAP KAELYN AHA MMAD Start: 09-06-2018 INITIATE OXYGEN THER APY PROTOCOL KAELYN AHAMMAD Start: 09-06-2018 NASAL CANNULA OXYGEN ZU DANNY AHAMMAD Start: 09-06-2018 Blood count complete auto&auto difrntl wbc KAELYN AHAMMAD Start: 09-06-2018 Comprehensive metabo lic panel KAELYN AHAMMAD Start: 09-06-2018 CPAP KAELYN AHA MMAD Start: 09-06-2018 INTAKE AND OUTPUT ZUBAI R AHAMMAD Start: 09-06-2018 CPAP KEALYN AHA MMAD Start: 09-05-2018 CPAP KAELYN AHA MMAD Start: 09-05-2018 CPAP KAELYN AHA MMAD Start: 09-05-2018 CPAP KAELYN AHA MMAD Start: 09-05-2018 Thromboplastin time partial plasma/whole blood KAELYN AHAMMAD Start: 09-05-2018 Dup-scan xtr veins c omplete bilateral study KAELYN AHAMMAD Start: 09-05-2018 CPAP KAELYN AHA MMAD Start: 09-05-2018 INITIATE OXYGEN THER APY PROTOCOL KAELYN AHAMMAD Start: 09-05-2018 RHYTHM STRIP REPORT ZUB AIR AHAMMAD Start: 09-05-2018 Blood count complete auto&auto difrntl wbc KAELYN AHAMMAD Start: 09-05-2018 Comprehensive metabo lic panel KAELYN AHAMMAD Start: 09-05-2018 CPAP KAELYN AHA MMAD Start: 09-05-2018 Thromboplastin time partial plasma/whole blood KAELYN AHAMMAD Start: 09-05-2018 INTAKE AND OUTPUT ZUBAI R AHAMMAD Start: 09-05-2018 CPAP KAELYN AHA MMAD Start: 09-05-2018 Thromboplastin time partial plasma/whole blood KAELYN AHAMMAD Start: 09-04-2018 CPAP KAELYN AHA MMAD Start: 09-04-2018 CPAP KAELYN AHA MMAD Start: 09-04-2018 CPAP KAELYN AHA MMAD Start: 09-04-2018 Blood count complete auto&auto difrntl wbc KAELYN AHAMMAD Start: 09-04-2018 Comprehensive metabo lic panel KAELYN AHAMMAD Start: 09-04-2018 Thromboplastin time partial plasma/whole blood KAELYN AHAMMAD Start: 09-04-2018 Culture bacterial quanttative colony count urine KAELYN AHAMMAD Start: 09-04-2018 INITIATE OXYGEN THER APY PROTOCOL KAELYN AHAMMAD Start: 09-04-2018 INTAKE AND OUTPUT ZUBAI R AHAMMAD Start: 09-04-2018 Thromboplastin time partial plasma/whole blood KAELYN AHAMMAD Start: 09-04-2018 Urnls dip stick/tabl et reagent auto microscopy KAELYN AHAMMAD Start: 09-03-2018 CONTACT ISOLATION ZUBAI R AHAMMAD Start: 09-03-2018 Urnls dip stick/tabl et rgnt auto w/o microscopy KAELYN AHAMMAD Start: 09-03-2018 DIET GENERAL KAELYN AHA MMAD Start: 09-03-2018 Thromboplastin time partial plasma/whole blood KAELYN AHAMMAD Start: 09-03-2018 TRANSFER PATIENT KAELYN AHAMMAD Start: 09-03-2018 Dup-scan xtr veins c omplete bilateral study KAELYN AHAMMAD Start: 09-03-2018 Assay of troponin quantitative KAELYN AHAMMAD Start: 09-03-2018 Blood count complete automated KAELYN AHAMMAD Start: 09-03-2018 PREVIOUS SPECIMEN ZUBAI R AHAMMAD Start: 09-03-2018 Thromboplastin time partial plasma/whole blood KAELYN AHAMMAD Start: 09-03-2018 OT EVAL AND TREAT ZUBAI R AHAMMAD Start: 09-03-2018 PT EVAL AND TREAT ZUBAI R AHAMMAD Start: 09-03-2018 ELEVATE HEELS OFF OF BED KAELYN AHAMMAD Start: 09-03-2018 HEAD OF BED 60 DEGRE ES OR LESS KAELYN AHAMMAD Start: 09-03-2018 NURSING COMMUNICATION Z UBAIR AHAMMAD Start: 09-03-2018 TURN PATIENT KAELYN AHA MMAD Start: 09-03-2018 Echo tthrc r-t 2d w/ wom-mode compl spec&colr d KAELYN AHAMMAD Start: 09-03-2018 INITIATE OXYGEN THER APY PROTOCOL KAELYN AHAMMAD Start: 09-03-2018 Iadna s aureus methi cillin resist amp probe tq KAELYN AHAMMAD Start: 09-03-2018 25 hydroxy includes fractions if performed KAELYN AHAMMAD Start: 09-03-2018 Assay of lactate KAELYN AHAMMAD Start: 09-03-2018 Assay of magnesium ZUBA IR AHAMMAD Start: 09-03-2018 Assay of thyroid sti mulating hormone tsh KAELYN AHAMMAD Start: 09-03-2018 Assay of troponin quantitative KAELYN AHAMMAD Start: 09-03-2018 Blood count complete auto&auto difrntl wbc KAELYN AHAMMAD Start: 09-03-2018 Comprehensive metabo lic panel KAELYN AHAMMAD Start: 09-03-2018 Hepatic function panel KAELYN AHAMMAD Start: 09-03-2018 Blood gases any comb ination ph pco2 po2 co2 hco3 KAELYN AHAMMAD Start: 09-03-2018 FULL CODE KAELYN AHA MMAD Start: 09-03-2018 PLACE INTERMITTENT P NEUMATIC COMPRESSION DEVICE KAELYN AHAMMAD Start: 09-03-2018 REASON FOR NO CHEMIC AL VTE PROPHYLAXIS KAELYN AHAMMAD Start: 09-03-2018 TELEMETRY MONITORING ZU DANNY AHAMMAD Start: 09-03-2018 DAILY WEIGHTS KAELYN AH AMMAD Start: 09-03-2018 ELEVATE HOB KAELYN AHA MMAD Start: 09-03-2018 INITIATE OXYGEN THER APY PROTOCOL KAELYN AHAMMAD Start: 09-03-2018 INTAKE AND OUTPUT ZUBAI R AHAMMAD Start: 09-03-2018 IP CONSULT TO CASE MANAGEMENT KAELYN AHAMMAD Start: 09-03-2018 NEURO/VASCULAR CHECKS Z UBAIR AHAMMAD Start: 09-03-2018 NOTIFY PHYSICIAN (SPECIFY) KAELYN AHAMMAD Start: 09-03-2018 VITAL SIGNS KAELYN AHA MMAD Start: 09-03-2018 IP CONSULT TO CARDIOLOGY KAELYN AHAMMAD Start: 09-03-2018 HEIGHT AND WEIGHT TIMOTHY R AHAMMAD Start: 09-03-2018 PATIENT STATUS (FROM ED OR OR/PROCEDURAL) KAELYN AHAMMAD Start: 09-03-2018 Ecg routine ecg w/le ast 12 lds w/i&r KAELYN AHAMMAD Start: 09-03-2018 EKG REPORT KAELYN AHA STAND Start: 09-03-2018 Assay of troponin quantitative KAELYN AHASTAND Start: 09-03-2018 Basic metabolic pane l calcium total KAELYN AHASTAND Start: 09-03-2018 Blood count complete auto&auto difrntl wbc KAELYN KRISHNAD Start: 09-03-2018 BRAIN NATRIURETIC PEPTIDE KAELYN AHASTAND Start: 09-03-2018 Prothrombin time KAELYN KRISHNAD Start: 09-03-2018 Thromboplastin time partial plasma/whole blood KAELYN KRISHNAD Start: 09-03-2018 IP CONSULT TO CRITICAL CARE KAELYN KRISHNAD Start: 09-03-2018 [facility] Start: 09-03-2018 Jim-Jair sequenc e (disorder) ANGELITA PAEZ Start: 08-31-2018 INCENTIVE SPIROMETRY RT KAELYN AHAMMAD Start: 08-31-2018 INCENTIVE SPIROMETRY RT KAELYN AHAMMAD Start: 08-31-2018 INCENTIVE SPIROMETRY RT KAELYN AHAMMAD Start: 08-31-2018 DISCHARGE PATIENT TIMOTHY R KRISHNAD Start: 08-31-2018 INCENTIVE SPIROMETRY RT KAELYN AHAMMAD Start: 08-31-2018 Radex spine cervical 2 or 3 views KAELYN AHAMMAD Start: 08-31-2018 INCENTIVE SPIROMETRY RT KAELYN AHAMMAD Start: 08-31-2018 IP CONSULT TO PSYCHIATRY KAELYN ANNETTAMMAD Start: 08-31-2018 INCENTIVE SPIROMETRY RT KAELYN AHAMMAD Start: 08-31-2018 INITIATE OXYGEN THER APY PROTOCOL KAELYN ANNETTAMMAD Start: 08-31-2018 INCENTIVE SPIROMETRY RT KAELYN AHAMMAD Start: 08-31-2018 Blood count complete automated [facility] Start: 08-31-2018 ELEVATE HEELS OFF OF BED KAELYN AHAMMAD Start: 08-31-2018 HEAD OF BED 60 DEGRE ES OR LESS KAELYN AHAMMAD Start: 08-31-2018 NURSING COMMUNICATION Z UBAIR AHAMMAD Start: 08-31-2018 TURN PATIENT KAELYN AHA MMAD Start: 08-31-2018 CATHETER REMOVAL KAELYN AHAMMAD Start: 08-31-2018 INTAKE AND OUTPUT ZUBAI R AHAMMAD Start: 08-31-2018 VITAL SIGNS KAELYN AHA MMAD Start: 08-31-2018 NURSING COMMUNICATION Z UBAIR AHAMMAD Start: 08-31-2018 ADVANCE DIET TOLE RATED (NURSING COMMUNICATION) KAELYN AHAMMAD Start: 08-31-2018 DIET CLEAR LIQUID ZUBAI R AHAMMAD Start: 08-31-2018 ENCOURAGE DEEP BREAT ROSALIE AND COUGHING KAELYN AHAMMAD Start: 08-31-2018 OT EVAL AND TREAT ZUBAI R AHAMMAD Start: 08-31-2018 PT EVAL AND TREAT ZUBAI R AHAMMAD Start: 08-31-2018 TELEMETRY MONITORING ZU DANNY AHAMMAD Start: 08-31-2018 ACTIVITY TOLERATED Z UBAIR AHAMMAD Start: 08-31-2018 AMBULATE PATIENT KAELYN AHAMMAD Start: 08-31-2018 FULL CODE KAELYN AHA MMAD Start: 08-31-2018 INCENTIVE SPIROMETRY RT KAELYN AHAMMAD Start: 08-31-2018 INITIATE OXYGEN THER APY PROTOCOL KAELYN AHAMMAD Start: 08-31-2018 WOUND CARE KAELYN AHA MMAD Start: 08-31-2018 INTAKE AND OUTPUT ZUBAI R AHAMMAD Start: 08-31-2018 NEURO/VASCULAR CHECKS Z UBAIR AHAMMAD Start: 08-31-2018 PLACE INTERMITTENT P NEUMATIC COMPRESSION DEVICE KAELYN AHAMMAD Start: 08-31-2018 NOTIFY PHYSICIAN (SPECIFY) KAELYN AHAMMAD Start: 08-31-2018 VITAL SIGNS KAELYN AHA MMAD Start: 08-30-2018 PLACE CERVICAL COLLAR Z UBAIR AHAMMAD Start: 08-30-2018 PATIENT STATUS (FROM ED OR OR/PROCEDURAL) KAELYN AHAMMAD Start: 08-30-2018 TRANSFER PATIENT KAELYN AHAMMAD Start: 08-30-2018 Radex spine cervical 2 or 3 views KAELYN AHAMMAD Start: 08-30-2018 Urinalysis microscopic only KAELYN ZAIDI Start: 08-30-2018 Urnls dip stick/tabl et rgnt auto w/o microscopy KAELYN ANNETTAMMAD Start: 08-30-2018 Culture bacterial quanttative colony count urine KAELYN KELLERD Start: 08-30-2018 TYPE AND SCREEN KAELYN KELLERD Start: 07-14-2018 Mri spinal canal cer vical w/o contrast matrl KAELYN KELLERD Bariatric surgery se rvice (qualifier value) ANGELITA PAEZ Cystoscopy ANGELITA PAEZ Pericardial effusion (disorder) ANGELITA PAEZ Pulmonary embolism (disorder) ANGELITA PAEZ Comment on above: treated at [facility] treated at [facility] Tonsillectomy and adenoidectomy ANGELITA PAEZ Plan of Treatment Date Care Activity Detail Author Start: 10-16-2026 Lipid panel Lipids [facility] Start: 03-30-2026 Diabetes Screening Diabetes Screenin [facility] Start: 04-19-2023 End: 07-19-2023 Bacteria identified in Urine by Culture [facility] Work Phone: Comment on above: Expected: 04/19/2023 (Approximate), Expires: 07/19/2023 Start: 04-19-2023 End: 05-18-2024 CT Kidney WO and W contrast IV CT UROGRAM WO/W IVCON Radiology Routine Hydronephrosis, unspecified hydronephrosis type Expected: 04/19/2023 (Approximate), Expires: 05/18/2024 [facility] Work Phone: Comment on above: Expected: 04/19/2023 (Approximate), Expires: 05/18/2024 Start: 04-19-2023 End: 07-19-2023 CYTOLOGY NON-INTEGRITY SPECIALIST [facility] Work Phone: Comment on above: Expected: 04/19/2023 (Approximate), Expires: 07/19/2023 Start: 04-19-2023 End: 07-19-2023 URINALYSIS, REFLEX MICROSCOPIC [facility] Work Phone: Comment on above: Expected: 04/19/2023 (Approximate), Expires: 07/19/2023 Start: 03-09-2023 Lipid screen Lipid screen [place], [place] Start: 02-08-2023 Depression Assessment Depression Ass [facility] Start: 02-08-2023 DTaP/Tdap/Td vaccine (2 - Td or Tdap) DTaP/Tdap/Td vaccine (2 - Td or Tdap) [facility] Start: 02-08-2023 DTaP/Tdap/Td vaccine (2 - Td) DTaP/Tdap/Td vaccine (2 - Td) [place], [place] Start: 02-08-2023 Urine microalbumin profile DTaP,Tdap,Td Vaccine (2 - Td or Tdap) [facility] Start: 01-12-2023 Urine culture Urine Culture [facility] Start: 10-09-2022 Covid-19 Vaccine ( season) Covid-19 Vaccine ( season) [facility] Start: 10-09-2022 Influenza vaccination [facility] Start: 02-08-2022 DEPRESSION ASSESSMENT DEPRESSION ASS [facility] Start: 09-06-2021 Diabetes Screening Diabetes Screenin g [facility] Start: 03-19-2021 COVID-19 VACCINE (4 - Booster for Moderna series) COVID-19 VACCINE (4 - Booster for Moderna series) [facility] Start: 03-19-2021 COVID-19 VACCINE (4 - Moderna series) COVID-19 VACCINE (4 - Moderna series) [facility] Start: 07-28-2019 Screening for malign ant neoplasm of breast Breast cancer screen [facility] Start: 07-28-2019 Shingles vaccine (1 of 2) Shingles vaccine (1 of 2) [facility] Start: 07-28-2019 SHINGRIX VACCINE (1 of 2) SHINGRIX VACCINE (1 of 2) [facility] Start: 02-23-2019 End: 02-23-2019 Office Visit [facility] Start: 10-09-2018 Influenza vaccination Flu vaccine (# 1) [place], [place] Start: 08-21-2018 Annual Wellness Visi t (AWV) Annual Wellness Visit (AWV) [facility] Start: 2014 COLOGUARD (FIT-DNA) COLOGUARD (FIT-D NA) [facility] Start: 2014 Colonoscopy COLONOSCOPY [facility] Start: 2014 COLORECTAL CANCER SCREENING COLORECTAL CANCER SCREENING [facility] Start: [address] COLONOGRAPHY [facility] Start: 2014 DIABETES SCREEN DIABETES SCREEN [facility] Start: 2014 Diabetes Screening Diabetes Screenin g [facility] Start: 2014 FECAL OCCULT BLOOD FECAL OCCULT BLOO D [facility] Start: 2014 Lipid 1996 panel - Serum or Plasma Lipid Screening [facility] Start: 2014 Lipid panel Lipid Screening [facility] Start: 2014 LIPID SCREEN LIPID SCREEN [facility] Start: 2014 Screening for malign ant neoplasm of colon [facility] Start: 2014 SIGMOIDOSCOPY SIGMOIDOSCOPY [facility] Start: 2009 Mammography [facility] Start: 2009 Screening for malign ant neoplasm of breast Mammogram Screening [facility] Start: 07-28-1999 HPV TESTING HPV TESTING [facility] Start: 07-28-1999 Screening for malign ant neoplasm of cervix [facility] Start: 1990 Cervical cancer screen Cervical canc er screen [place], [place] Start: 1990 PAP TESTING PAP TESTING [facility] Start: 1990 Screening for malign ant neoplasm of cervix [facility] Start: 1988 Hepatitis B Vaccine (1 of 3 - + 3-dose series) Hepatitis B Vaccine (1 of 3 - + 3-dose series) [facility] Start: 1988 Urine microalbumin profile DTAP,TDAP,TD (1 - Tdap) [facility] Start: 07-28-1987 Hepatitis C screening B ON [facility] Start: 07-28-1987 HEPATITIS C SCREENING HEPATITIS C SC REENING [facility] Start: 07-28-1987 HIV SCREENING HIV SCREENING [facility] Start: 07-28-1987 HIV screening HIV Screening [facility] Start: 1984 HIV screen HIV screen [facility] jeniffer- [facility] Start: 1984 HIV screening HIV screen [facility] Start: 1981 Depression Monitoring Depression Mon itoring [facility] Start: 1969 HEPATITIS B (1 of 3 - 3-dose series) HEPATITIS B (1 of 3 - 3-dose series) [facility] Start: 1969 Hepatitis B Vaccine (1 of 3 - 3-dose series) Hepatitis B Vaccine (1 of 3 - 3-dose series) [facility] End: 07-13-2022 CT CERVICAL SPINE WO CONTRAST [facility] Work Phone: Comment on above: 1 Occurrences starti ng 07/13/2022 until 07/13/2022 End: 12-27-2023 Ct lumbar spine w/o contrast material CT LUMBAR SPINE WO IVCON Radiology Routine Spinal stenosis of lumbar region with neurogenic claudication 1 Occurrences starting 11/27/2022 until 12/27/2023 [facility] Work Phone: Comment on above: 1 Occurrences starti ng 11/27/2022 until 12/27/2023 End: 07-23-2023 EMG(NEURO/NI) EMG(NEURO/NI) EMG Routine Cervical disc disorder with radiculopathy Right arm weakness 1 Occurrences starting 07/22/2022 until 07/23/2023 [facility] Work Phone: Comment on above: 1 Occurrences starti ng 07/22/2022 until 07/23/2023 Glucose measurement estimated from glycated hemoglobin [facility] End: 10-21-2023 Mri spinal canal lumbar w/o contrast material MRI LUMBAR SPINE WO IVCON Radiology Routine Spinal stenosis of lumbar region, unspecified whether neurogenic claudication present 1 Occurrences starting 09/21/2022 until 10/21/2023 [facility] Work Phone: Comment on above: 1 Occurrences starti ng 09/21/2022 until 10/21/2023 End: 10-21-2023 Mri spinal canal thoracic w/o contrast matrl MRI THORACIC SPINE WO IVCON Radiology Routine Spinal stenosis of lumbar region, unspecified whether neurogenic claudication present 1 Occurrences starting 09/21/2022 until 10/21/2023 [facility] Work Phone: Comment on above: 1 Occurrences starti ng 09/21/2022 until 10/21/2023 End: 12-27-2023 Radex spine lumbosacral minimum 4 views XR LUMBAR MOTION 4V AP/LAT/ FLEX/EXT Radiology Routine Spinal stenosis, lumbar region with neurogenic claudication 1 Occurrences starting 11/27/2022 until 12/27/2023 [facility] Work Phone: Comment on above: 1 Occurrences starti ng 11/27/2022 until 12/27/2023 [facility] [place] Immunizations Immunization Date Immunization Notes Care Provider Hayley mayfield 11-30-2022 Flu Shot - Documentation Purposes Only [employer] Other [employer] [facility] Other 11-30-2022 COVID-19 Vaccine Pfizer - Documentation Purposes Only [employer] Other [employer] [facility] Other 11-21-2021 influenza virus vaccine, unspecified formulation [place] [facility] 11-21-2021 SARS-CoV-2 (COVID-19 ) [id number] [employer] [facility] 01-22-2021 SARS-CoV-2 (COVID-19 ) [id number] vaccine [employer] [facility] 05-25-2020 COVID-19 Vaccine Moderna - Documentation Purposes Only [employer] Other [facility] 04-27-2020 COVID-19 Vaccine Moderna - Documentation Purposes Only [employer] Other [facility] 02-09-2020 SARS-CoV-2 (COVID-19 ) [id number] vaccine ANGELITA PAEZ [facility] Comment on above: Result Comment: pt i s fully vaccinated but does not know the dates Result Comment: pt i s fully vaccinated but does not know the dates 12-10-2019 influenza virus vaccine, unspecified formulation ANGELITA PAEZ [facility] 11-21-2019 influenza, injectabl e, quadrivalent, contains preservative [employer] Other [employer] Other 11-21-2019 influenza virus vaccine, unspecified formulation [employer] [facility] 11-13-2018 influenza virus vaccine, unspecified formulation [employer] [facility] 05-12-2017 Toradol per 15 mg [employer] Other [employer] Other 05-05-2017 Toradol per 15 mg [employer] Other [employer] Other 11-12-2016 influenza virus vaccine, unspecified formulation [employer] [facility] 11-12-2016 influenza, injectabl e, quadrivalent, contains preservative [employer] Other [employer] Other 11-12-2016 Toradol per 15 mg [employer] Other [employer] Other 12-18-2015 influenza virus vaccine, unspecified formulation [employer] [facility] 11-01-2014 Toradol per 15 mg [employer] Other [employer] Other 12-21-2013 influenza virus vaccine, unspecified formulation [employer] [facility] 02-08-2013 tetanus toxoid, reduced diphtheria toxoid, and acellular pertussis vaccine, adsorbed Stv 2 [facility] Comment on above: Result Comment: 2021: EXTERNAL ADMIN: PT RPT 11-30-2012 influenza virus vaccine, unspecified formulation [employer] [facility] 12-23-2011 influenza virus vaccine, unspecified formulation [employer] [facility] 11-25-2010 influenza virus vaccine, unspecified formulation [place] [facility] 12-14-2007 pneumococcal polysaccharide vaccine, 23 valent [employer] [facility] 12-13-2007 influenza, whole [employer] [facility] NEGATED: Highlighted row has not occurred!07-09-2021 SARS-CoV-2 mRNA (tozinameran 5y-11y) vaccine ANGELITA PAEZ [facility] NEGATED: Highlighted row has not occurred!10-27-2016 Toradol per 15 mg [employer] Other [employer] Other Payers Date Payer Category Payer Self-pay [id number] 2022 Unknown [id number] 2022 Medicare [id number] 2018 Medicaid MEDICAID [facility] DEPT OF JOB xxxxxxxxxxxx 2018-Present [phone] [address] [place] [address] xxxxxxxxxxxx [id number] 2018 Medicaid [id number] 2018 Medicare MEDICARE MEDICAR E PART A AND B xxxxxxxxxxx 2018-Present [phone] [address] [address] [place] [address] xxxxxxxxxxx [id number] 2018 Medicare [id number] 2014 Unknown [id number] 1969 Unknown [id number] [id number] 1969 Unknown [id number] 2.16.840.1.521121.3.579.2.175 1969 Unknown [id number] 2.16.840.1.871172.3.579.2.175 1969 Unknown [id number] 2.16.840.1.747958.3.579.2.175 1969 Unknown [id number] 2.16.840.1.123031.3.579.2.175 1969 Unknown [id number] 2.16.840.1.556478.3.579.2.647 1969 Unknown [id number] 2.16.840.1.041204.3.579.2.593 1969 Unknown [id number] 2.16.840.1.113462.3.579.2.72 1969 Unknown [id number] 2.16.840.1.553177.3.579.2. 1969 Unknown [id number] 2.16.840.1.618667.3.579.2.72 1969 Unknown [id number] 2.16.840.1.036797.3.579.2. 1969 Unknown [id number] 2.16.840.1.944860.3.579.2. 1969 Unknown [id number] 2.16.840.1.879721.3.579.2 1969 Unknown [id number] 2.16.840.1.167077.3.579.2. 1969 Unknown [id number] 2.16.840.1.934185.3.579.2. 1969 Unknown [id number] 2.16.840.1.750711.3.579.2 1969 Unknown [id number] 2.16.840.1.637951.3.579.2. 1969 Unknown [id number] 2.16.840.1.557724.3.579.2. 1969 Unknown [id number] 2.16.840.1.871078.3.579.2. 1969 Unknown [id number] 2.16.840.1.921843.3.579.2. 1969 Unknown [id number] 2.16.840.1.314854.3.579.2 1969 Unknown [id number] 2.16.840.1.471111.3.579.2.173 1969 Unknown [id number] 2.16.840.1.831041.3.579.2.173 1959 Medicare [id number] 2.16.840.1.356543.19 Self-pay [id number] Unknown HCAP/HFA/FAP Active [id number] Unknown [id number] 2.16840.1.470975.3.579.2.531 Unknown [id number] 2.840.1.365688.3.579.2.531 Unknown [id number] 2.16840.1.255866.3.579.2.531 Social History Date Type Detail Facility Start: 12-28-2018 End: 06-29-2022 Tobacco smoking status IAIS Never smoker [place], [place] Start: 12-28-2018 End: 04-03-2020 Alcohol intake Current non-drinker of alcohol (finding) [place], [place] Start: 1970 Sex Assigned At Not on file [place] Start: 09-21-2022 End: 11-24-2022 Female [facility] Other Start: 1970 Sex Assigned At Female [facility] Tobacco smoking status Never [facility] Start: 07-02-2016 End: 06-29-2022 Tobacco use and exposure Smokeless tobacco non-user [facility] Work Phone: Tobacco smoking status IAIS Tobacco smoking consumption unknown [facility] Start: 06-29-2022 End: 12-21-2022 Alcohol intake Lifetime non-drinker (finding) [facility] Start: 09-21-2022 End: 11-24-2022 History of Social function [facility] Start: 09-20-2022 Gender identity Identifies as female gender (finding) [facility] Medical Equipment Procedure Code Equipment Code Equipment Origin al Text Equipment Identifier Dates Bailey-Putty Proge nix Plus 1cc [id number] Start: 08-30-2018 Reload Stapler 4 5 Bl Davinci Xi _imp Start: 06-21-2017 Reload Stapler 4 5 Bl Davinci Xi [id number] Start: 06-21-2017 Reload Stapler 4 5 Bl Davinci Xi [id number] Start: 06-21-2017 Reload Stapler 4 5 Bl Davinci Xi [id number] Start: 06-21-2017 Reload Sequoyah B lk 60mm [id number] Start: 06-21-2017 Reload Sequoyah B lk 60mm [id number] Start: 06-21-2017 Impl Spine Cage Spacr Bengal Lg 7deg 6mm [id number] Start: 08-30-2018 Plate Cerv Ant T i 12mm [id number] Start: 08-30-2018 Screw Cerv [facility] Ti 16mm [id number] Start: 08-30-2018 Functional Status Date Assessment Result Facility 02-24-2022 Functional Status N/A [facility] 09-16-2021 Functional Status N/A [facility] Clinical Notes 08-08-2016 to 04-26-2023 Apurva Campa MD - 04/26/2023 9:29 PM EDTTelephone Encounter - Macy Simon - 04/20/2023 4:14 PM EDTTelephone Encounter - Macy Simon - 04/20/2023 4:07 PM EDTPatient Instructions Note Date & Type Note Facility 04-26-2023 Note HNO ID: [id number] Author: APURVA CAMPA MD Service: ? Author Type: Physician Type: Progress Notes Filed: 04/26/2023 21:37 Note Text: local cysto 05-04-23 lumbar steosis, obesity, unsteady gait, on Eliquis Irregular echogenic material within the urinary bladder and probable wall thickening, suspicious for urothelial neoplasm. Bilateral moderate-marked hydronephrosis, right greater than left. Paralysis s/p gastric bypass surgery 2017 Able to walk with a walker after neck surgery 2018 On Eliquis Renal US 04/15/23: Irregular echogenic material urinary bladder and probable wall thickening, suspicious for urothelial neoplasm. Urology consultation and potentially further assessment with cystoscopy is suggested. Bilateral moderate-marked hydronephrosis, right > left. secondary to distal ureteral obstruction in light of urinary bladder findings. UA 04-19-23 = nitrite +ve, wbc and RBC Culture =-ve cytology= blood [facility] 04-26-2023 History of Presen t illness Narrative local cysto 05-04-23 lumbar steosis, obesity, unsteady gait, on Eliquis Irregular echogenic material within the urinary bladder and probable wall thickening, suspicious for urothelial neoplasm. Bilateral moderate-marked hydronephrosis, right greater than left. Paralysis s/p gastric bypass surgery 2018 Able to walk with a walker after neck surgery 2019 On Eliquis Renal US 04/15/23: Irregular echogenic material urinary bladder and probable wall thickening, suspicious for urothelial neoplasm. Urology consultation and potentially further assessment with cystoscopy is suggested. Bilateral moderate-marked hydronephrosis, right > left. secondary to distal ureteral obstruction in light of urinary bladder findings. UA 04-19-23 = nitrite +ve, wbc and RBC Culture =-ve cytology= blood documented in this encounter [facility] 04-20-2023 Miscellaneous Notes Formattin g of this note might be different from the original. Patient called back and confirmed date Left VM confirming date. Please schedule patient for local flexible cystoscopy at [facility] on Wednesday05-04-23 Apurva Campa MD documented in this encounter [facility] 04-19-2023 Note HNO ID: [id number] Author: ?, ?, ? Service: ? Author Type: ? Type: Progress Notes Filed: 04/19/2023 14:41 Note Text: Carrie Fletcher [id number] [facility] [address] is a 52 year old female and is here today for hydronephrosis, bladder mass at the request of Janina Hadley [address] [place] [address] My final recommendation will be communicated back to the requesting physician by way of shared medical record or letter. 52 year old female with degenerative disc disease, lumbar steosis, obesity, unsteady gait, on Eliquis here today for bladder mass and bilateral moderate-marked hydronephrosis. Renal US 04/15/23: Irregular echogenic material within the urinary bladder and probable wall thickening, suspicious for urothelial neoplasm. Urology consultation and potentially further assessment with cystoscopy is suggested. Bilateral moderate-marked hydronephrosis, right greater than left. Findings are likely secondary to distal ureteral obstruction in light of urinary bladder findings. If warranted, this can be further assessed with CT Urogram. Creatinine Date Value Ref Range Status 03/30/2023 1.01 (H) 0.58 - 0.96 mg/dL Final GFR 03/30/23: 67 HISTORY OF PRESENT ILLNESS: Location: bladder Severity Scale: see lab Duration: several months Associated signs and symptoms: none No past medical history on file. No past surgical history on file. No family history on file. Social History Tobacco Use Smoking status: Never Smokeless tobacco: Never Substance Use Topics Alcohol use: Never Drug use: Never MEDICATIONS: Current Outpatient Medications Medication Sig gabapentin (NEURONTIN) 600 mg tablet Take 600 mg by mouth daily at bedtime. gabapentin (NEURONTIN) 300 mg capsule TAKE 1 CAPSULE BY MOUTH IN THE MORNING AND IN THE AFTERNOON metoprolol tartrate, short acting, (LOPRESSOR) 25 mg tablet metoprolol tartrate 25 mg tablet TAKE 1/2 TABLET BY MOUTH TWICE DAILY apixaban (ELIQUIS) 5 mg tab(s) Eliquis 5 mg tablet TAKE 1 TABLET BY MOUTH TWICE A DAY solifenacin (VESICARE) 5 mg tablet Take 15 mg by mouth as directed. TAKE 2 TABLETS BY MOUTH IN THE MORNING, AND 1 TABLET IN THE EVENING Docusate Sodium 250 mg capsule Stool Softener Active cholecalciferol (VITAMIN D3) 5,000 unit tab Vitamin D3 1000 IU daily omega-3 fatty acids 1,000 mg cap Take by mouth q 24 HR. viatmin b complex - vitamin C - ferrous fumarate - folic acid (NEPHRON FA) 66 mg iron- 1,000 mcg tab tablet B Complex 100 sacod, Refill(s) 0 Start Date: 11/16/18 Status: Ordered calcium carbonate (TUMS ULTRA) 400 mg (1,000 mg) chew Take 1,000 mg by mouth three times daily. multivit-minerals/folic acid (ONE-A-DAY WOMEN VITACRAVES ORAL) Take by mouth. sennosides (SENOKOT ORAL) Take by mouth. No current facility-administered medications for this visit. ALLERGY: ALLERGIES Allergen Reactions Amoxicillin-Pot Cla* Diarrhea Oxycodone Unknown Adhesive Tape-Silic* Rash == REVIEW OF SYSTEMS == GENERAL: No fever, no fatigue and no weight loss. HEAD AND NECK: No headache, no blurred vision and no hearing loss. CARDIOVASCULAR: No chest pain, no palpitations and no leg edema. RESPIRATORY: No cough, wheezing and no shortness of breath. : As indicated in HPI. GI: No epigastric discomfort, no blood in stool and no changes in bowel habits. MUSCLOSKELETAL: No neck pain, no back anin and no joint pain. SKIN: No varicose veins, no rash and no abnormal itching. NEUROLOGICAL: No numbness, no seizures and no tremor. BLOOD: No ekimosis, no hematomas or no bleeding from the gums. = PHYSICAL EXAM: = GENERAL: Alert, oriented and in no distress. ABDOMEN: Soft, non tender with no masses or organomegaly. No CVA tenderness. HERNIA: Negative EXTREMITIES: No leg edema, No joint swelling GENITALIA: Deferred IMPRESSION: (Diagnostic Possibilities): Irregular echogenic material within the urinary bladder and probable wall thickening, suspicious for urothelial neoplasm. Bilateral moderate-marked hydronephrosis, right greater than left. Paralysis s/p gastric bypass surgery 2018 Able to walk with a walker after neck surgery 2019 On Eliquis PLAN: (Management Options): [facility], GFR 03/31/23: 67 Cystoscopy under local in the operating room 05/04/23. Medical Decision Making: Data: Unique test result(s) reviewed: 3+ Unique test(s) ordered: 1 Risk: Moderate: Moderate risk from testing/treatment Medical Decision Making Level: 4 - Moderate By signing my name below, Negrita Haji, attest that this documentation has been prepared under the direction and in the presence of Dr. Campa. Negrita Da Silva Scribhalina Provider Attestation: Apurva Haji M.D., personally performed the services described in this documentation. All medical record entries m (more content not included)... [facility] 04-19-2023 History of Presen t illness Narrative Carrie Fletcher [id number] [facility] [address] is a 52 year old female and is here today for hydronephrosis, bladder mass at the request of Janina Hadley [address] [facility] [address] My final recommendation will be communicated back to the requesting physician by way of shared medical record or letter. 52 year old female with degenerative disc disease, lumbar steosis, obesity, unsteady gait, on Eliquis here today for bladder mass and bilateral moderate-marked hydronephrosis. Renal US 04/15/23: Irregular echogenic material within the urinary bladder and probable wall thickening, suspicious for urothelial neoplasm. Urology consultation and potentially further assessment with cystoscopy is suggested. Bilateral moderate-marked hydronephrosis, right greater than left. Findings are likely secondary to distal ureteral obstruction in light of urinary bladder findings. If warranted, this can be further assessed with CT Urogram. Creatinine Date Value Ref Range Status 03/30/2023 1.01 (H) 0.58 - 0.96 mg/dL Final GFR 03/30/23: 67 HISTORY OF PRESENT ILLNESS: Location: bladder Severity Scale: see lab Duration: several months Associated signs and symptoms: none No past medical history on file. No past surgical history on file. No family history on file. Social History Tobacco Use Smoking status: Never Smokeless tobacco: Never Substance Use Topics Alcohol use: Never Drug use: Never MEDICATIONS: Current Outpatient Medications Medication Sig gabapentin (NEURONTIN) 600 mg tablet Take 600 mg by mouth daily at bedtime. gabapentin (NEURONTIN) 300 mg capsule TAKE 1 CAPSULE BY MOUTH IN THE MORNING AND IN THE AFTERNOON metoprolol tartrate, short acting, (LOPRESSOR) 25 mg tablet metoprolol tartrate 25 mg tablet TAKE 1/2 TABLET BY MOUTH TWICE DAILY apixaban (ELIQUIS) 5 mg tab(s) Eliquis 5 mg tablet TAKE 1 TABLET BY MOUTH TWICE A DAY solifenacin (VESICARE) 5 mg tablet Take 15 mg by mouth as directed. TAKE 2 TABLETS BY MOUTH IN THE MORNING, AND 1 TABLET IN THE EVENING Docusate Sodium 250 mg capsule Stool Softener Active cholecalciferol (VITAMIN D3) 5,000 unit tab Vitamin D3 1000 IU daily omega-3 fatty acids 1,000 mg cap Take by mouth q 24 HR. viatmin b complex - vitamin C - ferrous fumarate - folic acid (NEPHRON FA) 66 mg iron- 1,000 mcg tab tablet B Complex 100 sacod, Refill(s) 0 Start Date: 11/16/18 Status: Ordered calcium carbonate (TUMS ULTRA) 400 mg (1,000 mg) chew Take 1,000 mg by mouth three times daily. multivit-minerals/folic acid (ONE-A-DAY WOMEN VITACRAVES ORAL) Take by mouth. sennosides (SENOKOT ORAL) Take by mouth. No current facility-administered medications for this visit. ALLERGY: ALLERGIES Allergen Reactions Amoxicillin-Pot Cla* Diarrhea Oxycodone Unknown Adhesive Tape-Silic* Rash == REVIEW OF SYSTEMS == GENERAL: No fever, no fatigue and no weight loss. HEAD & NECK: No headache, no blurred vision and no hearing loss. CARDIOVASCULAR: No chest pain, no palpitations and no leg edema. RESPIRATORY: No cough, wheezing and no shortness of breath. : As indicated in HPI. GI: No epigastric discomfort, no blood in stool and no changes in bowel habits. MUSCLOSKELETAL: No neck pain, no back anin and no joint pain. SKIN: No varicose veins, no rash and no abnormal itching. NEUROLOGICAL: No numbness, no seizures and no tremor. BLOOD: No ekimosis, no hematomas or no bleeding from the gums. = PHYSICAL EXAM: = GENERAL: Alert, oriented and in no distress. ABDOMEN: Soft, non tender with no masses or organomegaly. No CVA tenderness. HERNIA: Negative EXTREMITIES: No leg edema, No joint swelling GENITALIA: Deferred IMPRESSION: (Diagnostic Possibilities): Irregular echogenic material within the urinary bladder and probable wall thickening, suspicious for urothelial neoplasm. Bilateral moderate-marked hydronephrosis, right greater than left. Paralysis s/p gastric bypass surgery 2018 Able to walk with a walker after neck surgery 2019 On Eliquis PLAN: (Management Options): [facility], GFR 03/31/23: 67 Cystoscopy under local in the operating room 05/04/23. Medical Decision Making: Data: Unique test result(s) reviewed: 3+ Unique test(s) ordered: 1 Risk: Moderate: Moderate risk from testing/treatment Medical Decision Making Level: 4 - Moderate By signing my name below, INegrita, attest that this documentation has been prepared under the direction and in the presence of Dr. Campa. Marcelino Phelps Provider Attestation: IApurva M.D., personally performed the services described in this documentation. All medical record entries made by the scribe were at my direction and in my presence. I have reviewed the chart and discharge instructions (if applicable) and agree that the record reflects my personal performance and is accurate and complete. Apurva Campa M.D. documented in this encounter [facility] 04-19-2023 Instructions Apurva Campa MD - 04/19/2023 2:38 PM EDT UA[facility]culture[facility] Schedule CTU Surgical schedulers will call for cystoscopy under local 05/04/23 office visit post op 05-12-23 in post op slot 9:20 AM documented in this encounter [facility] 04-15-2023 Note HNO ID: [id number] Author: JANINA HADLEY APRN.MERLYN Service: ? Author Type: Nurse Practitioner Type: Progress Notes Filed: 04/15/2023 16:54 Note Text: Called pt to discussed results after receiving phone call from josse Engle to cover this matter if needed tomorrow Message sent to Brittany Cheatham RN Consult placed Phone number sent to pt to call if she doesn't hear anything by Wednesday next week All questions answered Other hydronephrosis - CONSULT TO UROLOGY; Future Bladder mass - CONSULT TO UROLOGY; Future Janina Hadley APRN.CNP Actionable Findings Diagnostic Hector Impression IMPRESSION: 1. Irregular echogenic material within the urinary bladder and probable wall thickening, suspicious for urothelial neoplasm. Urology consultation and potentially further assessment with cystoscopy is suggested. 2. Bilateral moderate-marked hydronephrosis, right greater than left. Findings are likely secondary to distal ureteral obstruction in light of urinary bladder findings. If warranted, this can be further assessed with CT urogram. COMMUNICATION: Communicated with Janina Hadley NP on 04/15/2023 4:27 PM via verbal communication. [facility] 04-15-2023 History of Presen t illness Narrative Called pt to discussed results after receiving phone call from josse Engle to cover this matter if needed tomorrow Message sent to Brittany Cheatham RN Consult placed Phone number sent to pt to call if she doesn't hear anything by Wednesday evening next week All questions answered Other hydronephrosis - CONSULT TO UROLOGY; Future Bladder mass - CONSULT TO UROLOGY; Future Janina Hadley APRN.CNP Actionable Findings Diagnostic Hector Impression IMPRESSION: 1. Irregular echogenic material within the urinary bladder and probable wall thickening, suspicious for urothelial neoplasm. Urology consultation and potentially further assessment with cystoscopy is suggested. 2. Bilateral moderate-marked hydronephrosis, right greater than left. Findings are likely secondary to distal ureteral obstruction in light of urinary bladder findings. If warranted, this can be further assessed with CT urogram. COMMUNICATION: Communicated with Janina Hadley NP on 04/15/2023 4:27 PM via verbal communication. documented in this encounter [facility] 04-15-2023 Note HNO ID: [id number] Author: DANIELLE PARIS RT(Iram) Service: ? Author Type: Art Display Maker Type: Progress Notes Filed: 04/15/2023 13:39 Note Text: Radiology Service Progress Note PATIENT NAME: Carrie Fletcher DATE OF SERVICE: April 15, 2023 TIME: 1:39 PM PATIENT IDENTITY VERIFICATION COMPLETED USING TWO (2) IDENTIFIERS: Name and Date of confirmed by patient verbally. FALL SCREENING: Has the patient had 2 falls in the last year or 1 fall with injury or currently using an Ambulatory Assistive Device (Walker, Cane, Wheelchair, Crutches, etc.)? Yes, Patient High Risk for Falls What interventions were put in place to prevent falls during this visit? Offered Assistance with Transfers/Clothing and Increased Observations by Caregivers PATIENT GENDER DATA: Female. status: : No status: N/A PATIENT RELEVANT IMPLANT DATA REVIEWED: Not Applicable PATIENT PRESENTS WITH AN IMPLANTABLE OR ATTACHED LOOK OUT TOWER FIRE WATCHER: No RADIOLOGY DEPARTMENT: Ultrasound PERIPHERAL IV DATA: Not applicable SIGNED BY: RT Byron(Iram) April 15, 2023 1:39 PM [facility] 02-16-2023 Evaluation note Encounter Date Diagnosis Assessment Notes Feb, Medicare annual wellness visit, subsequent (ICD-10 - Z00.00) Personalized health advice was given to the beneficiary including a written plan for screenings discussed and provided. Advanced care planning reviewed and/or information given as requested. Additional counseling was provided here today in regards to, mammography, gynecological exam and dexa. The above visit was performed by [Melody Flynn LPN ], under direct supervision of [ Lon Ibrahim ]. Document reviewed and amended by provider signed below. Feb, Hyperlipidemia (ICD-10 - E78.5) Review of patients laboratory results and therefore they are to continue watching her diet and increase their exercise regimen and we will continue to monitor. Feb, Morbid obesity (ICD-10 - E66.01) Feb, Chronic UTI (ICD-10 - N39.0) Urine collection kit was provided to her she will drop a sample off at [facility]. If positive will call her and initiate treatemtn Feb, Neurogenic bladder (ICD-10 - N31.9) Encouraged patient to call for f/u with urologist. Feb, S/P bariatric surgery (ICD-10 - Z98.84) Patient has gained weight back since her gastric bipass surgery. She has not seen surgeon in quite a while. Feb, Encounter for screening mammogram for malignant neoplasm of breast (ICD-10 - Z12.31) Mammogram ordered today Feb, Degenerative lumbar disc (ICD-10 - M51.36) I have reviewed her recent progress note and recent MRIs. I would recommend that she follow up with local neurolgist in addition to [facility]. Feb, Spinal stenosis of thoracolumbar region (ICD-10 - M48.05) Feb, Post-menopausal (ICD-10 - Z78.0) [employer] Other 12-05-2023 Evaluation note* Encounter Date Diagnosis Assessment Notes Treatment Notes Treatment Clinical Notes Jan, Hematuria (ICD-10 - R31.9) Jan, Acute cystitis with hematuria (ICD-10 - N30.01) Discussed diagnosis and dipstick findings with patient. Will treat patient for UTI. Instructed patient to take antibiotic as prescribed, take with food, complete entire course of therapy even if feeling better. Allergies and recent antibiotic use were reviewed with patient. Advised patient culture was sent today and we will call with her results in 2-5 days. Patient instructed to push fluids. Patient symptoms should improve in the next 48 hours, if symptoms persist follow up with PCP or UC. Immediate eval by ER if back or flank pain, fever, chills, N/V, or any other concerning symptoms arise. Advised to call PCP in morning to make follow up appointment. Patient verbalizes understanding and is agreeable to treatment plan. Jan, Other Urinary tract infection (UTI) home care material was printed [employer] Other 11-13-2023 NoteHNO ID: [id number] Author: Moises Willis MD Service: ? Author Type: Physician Type: Progress Notes Filed: 12/21/2022 1:15 PM Note Text: SPINE SURGERY ESTABLISHED This is an in-person visit. Staff note: Patient with stable leg symptoms that came on suddenly with cord injury SP gastric bypass Lumbar canal stenosis, severe No pain in legs, numbness and weakness Patient not interested in lumbar surgery at this time FU in one year if stable symptoms, sooner with symptom worsening Moises Willis MD DATE OF SERVICE: 12/21/2022 DATE OF LAST VISIT: 09/21/2022 SUBJECTIVE: HPI:Carrie Fletcher is a 52 year old female presenting alone. Patient with complex history of 2018 gastric bypass c/b leg paralysis, which partially resolved after 2019 ACDF with residual left foot drop. She then experienced burning pain and weakness in the legs, progressing since 2021. Last saw Champ Patel on 11/27 during a virtual visit, with MRI showing severe central stenosis at L2/3, L3/4, moderate at L1/2, L4/5. Recommended to see Dr. Willis with lumbar flex/ex XR and CT scan. Today reports stable lower extremity and right shoulder weakness. She reports occasional burning feet bilaterally, occasional shooting pain in the left posterior leg below the knee and circumferential numbness. She has chronic numbness in the buttocks bilaterally. She worked with OT with her arms without much progression, with weakness with arm above her head. No pain. Known incontinence since 2018 gastric bypass. PAIN EVALUATION 12/17/2022 1426 Pain Level: 5 Pain Location: Foot-Left Description: Burning;Stabbing;Throbbing Duration Units: Months Frequency: Intermittent Intervention/Comfort measure: Medication;Relaxation Pain Radiation: none Aggravating Factors: Lying supine Alleviating Factors: Walking Pain Ratio: Pain in the leg(s) is greater than in the back, AMBULATORY STATUS: wheelchair out and about, walker at home ANTIPLATELET OR ANTICOAGULATION STATUS: Yes DVT or PE on Eliquis since 2019 PREVIOUS CONSERVATIVE TREATMENTS: Intolerant of NSAIDS Dates of PT February and March 2022 for shoulder, for lower back Membrane Stabilizers REVIEW OF SYSTEMS: GENERAL: No weight loss or malaise MUSCULOSKELETAL: weakness in right shoulder, burning pain in feet NEURO: No history of headaches, syncope, paralysis, seizures or tremors MEDICATIONS: gabapentin (NEURONTIN) 600 mg tablet Take 600 mg by mouth daily at bedtime. gabapentin (NEURONTIN) 300 mg capsule TAKE 1 CAPSULE BY MOUTH IN THE MORNING AND IN THE AFTERNOON metoprolol tartrate, short acting, (LOPRESSOR) 25 mg tablet metoprolol tartrate 25 mg tablet TAKE 1/2 TABLET BY MOUTH TWICE DAILY apixaban (ELIQUIS) 5 mg tab(s) Eliquis 5 mg tablet TAKE 1 TABLET BY MOUTH TWICE A DAY solifenacin (VESICARE) 5 mg tablet Take 15 mg by mouth as directed. TAKE 2 TABLETS BY MOUTH IN THE MORNING, AND 1 TABLET IN THE EVENING Docusate Sodium 250 mg capsule Stool Softener Active cholecalciferol (VITAMIN D3) 5,000 unit tab Vitamin D3 1000 IU daily omega-3 fatty acids 1,000 mg cap Take by mouth q 24 HR. viatmin b complex - vitamin C - ferrous fumarate - folic acid (NEPHRON FA) 66 mg iron- 1,000 mcg tab tablet B Complex 100 sacod, Refill(s) 0 Start Date: 11/16/18 Status: Ordered calcium carbonate (TUMS ULTRA) 400 mg (1,000 mg) chew Take 1,000 mg by mouth three times daily. multivit-minerals/folic acid (ONE-A-DAY WOMEN VITACRAVES ORAL) Take by mouth. sennosides (SENOKOT ORAL) Take by mouth. Patient Entered Questionnaires Spine Questions 09/20/2022 11/24/2022 12/17/2022 Pain Location: Neck Leg Leg Pain Duration: 1 to 5 years - - Pain over last 6 months: Every day or nearly every day in the past 6 months - - Symptoms from neck/cervical spine: Yes Yes Yes Employment Status: Disabled due to back pain, permanently or temporarily - Disabled due to back pain, permanently or temporarily Off work 1 month or more due to back/neck pain: Yes - Yes Applied for/receive disability/WC due to low back/neck pain Yes - Yes Involved in law suit/legal claim: No - - Neck Questionnaires 09/20/2022 11/24/2022 Benzel Modified VELASQUEZ Score 12 (A lower score indicates increased pain and issues.) 13 (A lower score indicates increased pain and issues.) PROMIS Score Percentiles Physical Health 09/20/2022 11/24/2022 Physical Function Percentile 4 0 Sleep Percentile 24* 34 Fatigue Percentile 31 38 Pain Interference Percentile 4 10 PROMIS SOCIAL ROLE SCORE 09/20/2022 11/24/2022 Social Role Satisfaction Percentile 27* 21* PROMIS Global Health Scale 09/20/2022 12/17/2022 Physical Health Percentile 2 7 Mental Health Percentile 13 9 Percentiles provide an indication of how the patient's score ranks in relation to the general population. Higher percentile rankings indicate better function/quality of life. 50th percentile is the average of the general populati (more content not included)...[facility] 12-21-2022 NoteHNO ID: [id number] Author: Bree Sharma RT(R) Service: Radiology Author Type: Technologist Type: Progress Notes Filed: 12/21/2022 11:48 AM Note Text: Radiology Service Progress Note PATIENT NAME: Carrie Fletcher DATE OF SERVICE: December 21, 2022 TIME: 11:48 AM PATIENT IDENTITY VERIFICATION COMPLETED USING TWO (2) IDENTIFIERS: Name and Date of confirmed by patient verbally. FALL SCREENING: Has the patient had 2 falls in the last year or 1 fall with injury or currently using an Ambulatory Assistive Device (Walker, Cane, Wheelchair, Crutches, etc.)? No PATIENT GENDER DATA: Female. status: : No status: NO. PATIENT RELEVANT IMPLANT DATA REVIEWED: Not Applicable RADIOLOGY DEPARTMENT: General X-ray: Exam(s) Completed: Spine X-Ray(s): Lumbar AP / LAT / L5-S1 / FLEX-EXT PERIPHERAL IV DATA: Not applicable SIGNED BY: RT RILEY(R) December 21, 2022 11:48 [facility]11-13-[facility]23 History of Present illness Narrative* Moises Willis MD - 12/21/2022 12:18 PM EST Images from the original note were not included. SPINE SURGERY ESTABLISHED This is an in-person visit. Staff note: Patient with stable leg symptoms that came on suddenly with cord injury SP gastric bypass Lumbar canal stenosis, severe No pain in legs, numbness and weakness Patient not interested in lumbar surgery at this time FU in one year if stable symptoms, sooner with symptom worsening Moises Willis MD DATE OF SERVICE: 12/21/2022 DATE OF LAST VISIT: 09/21/2022 SUBJECTIVE: HPI:Carrie Fletcher is a 52 year old female presenting alone. Patient with complex history of 2018 gastric bypass c/b leg paralysis, which partially resolved after 2019 ACDF with residual left foot drop. She then experienced burning pain and weakness in the legs, progressing since 2021. Last saw Champ Patel on 11/27 during a virtual visit, with MRI showing severe central stenosis at L2/3, L3/4, moderate at L1/2, L4/5. Recommended to see Dr. Willis with lumbar flex/ex XR and CT scan. Today reports stable lower extremity and right shoulder weakness. She reports occasional burning feet bilaterally, occasional shooting pain in the left posterior leg below the knee and circumferential numbness. She has chronic numbness in the buttocks bilaterally. She worked with OT with her arms without much progression, with weakness with arm above her head. No pain. Known incontinence since 2018 gastric bypass. PAIN EVALUATION 12/17/2022 1426 Pain Level: 5 Pain Location: Foot-Left Description: Burning;Stabbing;Throbbing Duration Units: Months Frequency: Intermittent Intervention/Comfort measure: Medication;Relaxation Pain Radiation: none Aggravating Factors: Lying supine Alleviating Factors: Walking Pain Ratio: Pain in the leg(s) is greater than in the back, AMBULATORY STATUS: wheelchair out and about, walker at home ANTIPLATELET OR ANTICOAGULATION STATUS: Yes DVT or PE on Eliquis since 2019 PREVIOUS CONSERVATIVE TREATMENTS: Intolerant of NSAIDS Dates of PT February and March 2022 for shoulder, for lower back Membrane Stabilizers REVIEW OF SYSTEMS: GENERAL: No weight loss or malaise MUSCULOSKELETAL: weakness in right shoulder, burning pain in feet NEURO: No history of headaches, syncope, paralysis, seizures or tremors MEDICATIONS: gabapentin (NEURONTIN) 600 mg tablet Take 600 mg by mouth daily at bedtime. gabapentin (NEURONTIN) 300 mg capsule TAKE 1 CAPSULE BY MOUTH IN THE MORNING AND IN THE AFTERNOON metoprolol tartrate, short acting, (LOPRESSOR) 25 mg tablet metoprolol tartrate 25 mg tablet TAKE 1/2 TABLET BY MOUTH TWICE DAILY apixaban (ELIQUIS) 5 mg tab(s) Eliquis 5 mg tablet TAKE 1 TABLET BY MOUTH TWICE A DAY solifenacin (VESICARE) 5 mg tablet Take 15 mg by mouth as directed. TAKE 2 TABLETS BY MOUTH IN THE MORNING, AND 1 TABLET IN THE EVENING Docusate Sodium 250 mg capsule Stool Softener Active cholecalciferol (VITAMIN D3) 5,000 unit tab Vitamin D3 1000 IU daily omega-3 fatty acids 1,000 mg cap Take by mouth q 24 HR. viatmin b complex - vitamin C - ferrous fumarate - folic acid (NEPHRON FA) 66 mg iron- 1,000 mcg tab tablet B Complex 100 sacod, Refill(s) 0 Start Date: 11/16/18 Status: Ordered calcium carbonate (TUMS ULTRA) 400 mg (1,000 mg) chew Take 1,000 mg by mouth three times daily. multivit-minerals/folic acid (ONE-A-DAY WOMEN VITACRAVES ORAL) Take by mouth. sennosides (SENOKOT ORAL) Take by mouth. Patient Entered Questionnaires Spine Questions 09/20/2022 11/24/2022 12/17/2022 Pain Location: Neck Leg Leg Pain Duration: 1 to 5 years - - Pain over last 6 months: Every day or nearly every day in the past 6 months - - Symptoms from neck/cervical spine: Yes Yes Yes Employment Status: Disabled due to back pain, permanently or temporarily - Disabled due to back pain, permanently or temporarily Off work 1 month or more due to back/neck pain: Yes - Yes Applied for/receive disability/WC due to low back/neck pain Yes - Yes Involved in law suit/legal claim: No - - Neck Questionnaires 09/20/2022 11/24/2022 Benzel Modified VELASQUEZ Score 12 (A lower score indicates increased pain and issues.) 13 (A lower scoreindicates increased pain and issues.) PROMIS Score Percentiles Physical Health 09/20/2022 11/24/2022 Physical Function Percentile 4 0 Sleep Percentile 24* 34 Fatigue Percentile 31 38 Pain Interference Percentile 4 10 PROMIS SOCIAL ROLE SCORE 09/20/2022 11/24/2022 Social Role Satisfaction Percentile 27* 21* PROMIS Global Health Scale 09/20/2022 12/17/2022 Physical Health Percentile 2 7 Mental Health Percentile 13 9 Percentiles provide an indication of how the patient's score ranks in relation to the general population. Higher percentile rankings indicate better function/quality of life. 50th percentile is the average of the general population and indicates half of respondents had a worse score. Depression Screening: PHQ-9 09/20/2022 11/24/2022 Score 3 1 PHQ-9 Self-harm Question 09/20/2022 11/24/2022 Thoughts that you would be better off , or of hurting yourself in some way 0 0 PHQ-9 Self-Harm (Item 9) response options: 0 Not at all 1 Several days 2 More than half the days 3 Nearly every day PHQ-9 Levels: 0-4 No to mild depression 5-9 Mild depression 10-14 Moderate depression 15-19 Moderately severe depression 20-27 Severe depression OBJECTIVE: PHYSICAL EXAM: BP 122/91 Pulse 87 Resp 16 Ht 6' 2 (1.88m) Wt 300 lb (136.1kg) SpO2 98% BMI 38.50 kg/(m^2). GENERAL APPEARANCE: Well nourished, well developed, and no apparent distress. NEURO PSYCH: Patient oriented to person, place, and time. Mood pleasant. Benign affect. MUSCULOSKELETAL VISUAL INSPECTION CERVICAL: WNL THORACIC: WNL LUMBAR: WNL MOTOR: Deltoid Right: 4, Left: 5 Elbow Flexors Right: 5, Left: 5 Wrist Extensors Right: 5, Left: 5 Elbow Extensors Right: 5, Left: 5 Hip Flexors Right: 5, Left: 5 Knee Extensors Right 5 and Left 5 Long Toe Extensors Right: 5, Left: 0 Ankle Plantar Flexors Right: 4, Left: 0 SENSORY: Normal sensory exam, Stocking GAIT: Antalgic. NEURO TESTS: None DATA REVIEW:Diagnostic tests reviewed for today's visit, films/specimens were personally reviewed by me: [facility] records independently reviewed ASSESSMENT/PLAN (M48.062) Spinal stenosis, lumbar region with neurogenic claudication (primary encounter diagnosis) Carrie Fletcher will continue with medical management of his/her condition. 1. No Orders Entered Today 2. Follow up: in one year to monitor progression Imaging Ordered: None Moises Willis MD SIGNATURE: Moises Willis MD PATIENT NAME: Carrie Fletcher DATE: December 21, 2022 TIME: 12:18 PM PAGER: documented in this encounter[facility] History of Present illness Narrative* Bree Sharma RT(R) - 12/21/2022 10:50 AM EST Radiology Service Progress Note PATIENT NAME: Carrie Fletcher DATE OF SERVICE: December 21, 2022 TIME: 11:48 AM PATIENT IDENTITY VERIFICATION COMPLETED USING TWO (2) IDENTIFIERS: Name and Date of confirmedby patient verbally. FALL SCREENING: Has the patient had 2 falls in the last year or 1 fall with injury or currently using an Ambulatory Assistive Device (Walker, Cane, Wheelchair, Crutches, etc.)? No PATIENT GENDER DATA: Female. status: : No status: NO. PATIENT RELEVANT IMPLANT DATA REVIEWED: Not Applicable RADIOLOGY DEPARTMENT: General X-ray: Exam(s) Completed: Spine X-Ray(s): Lumbar AP / LAT / L5-S1 / FLEX-EXT PERIPHERAL IV DATA: Not applicable SIGNED BY: RT RILEY(R) December 21, 2022 11:48 AM documented in this encounterOhio[facility]10-23-2023 Evaluation note* Encounter Date Diagnosis Assessment Notes Treatment Notes Treatment Clinical Notes Nov, History of pulmonary embolism (ICD-10 - Z86.711) [employer] Other 10-20-2023 NoteHNO ID: [id number] Author: Champ Patel PA-C Service: ? Author Type: Physician Pot Puncher Type: Progress Notes Filed: 11/27/2022 7:19 AM Note Text: SPINE SURGERY ESTABLISHED This is a virtual visit using [employer] Video Visit. It required patient-provider interaction for the medical decision making as documented below. I have communicated my name and active licensure. The patient's identity and physical location were verified at the time of this visit. Either the patient or their legal medical center representative has been informed of the risks and benefits of -- and alternatives to -- treatment through a remote evaluation and consents to proceed with the evaluation remotely. DATE OF SERVICE: 11/27/2022 DATE OF LAST VISIT: 09/21/2022 SUBJECTIVE: HPI:Carrie Fletcher is a 52 year old female Seen virtually for image review. She continues to have burning pain in the legs, weakness and foot drop. Complex hx of paralysis in the legs post gastric bypass in 2018. ACDF in 2019 and regained her ability to walk. Burning pain and subjective weakness/heaviness in the legs progressed in 2021. No new symptoms since her last visit with Dr. Willis in September. REVIEW OF SYSTEMS: GENERAL: No weight loss or malaise MUSCULOSKELETAL: see HPI NEURO: No history of headaches, syncope, paralysis, seizures or tremors MEDICATIONS: gabapentin (NEURONTIN) 600 mg tablet Take 600 mg by mouth daily at bedtime. gabapentin (NEURONTIN) 300 mg capsule TAKE 1 CAPSULE BY MOUTH IN THE MORNING AND IN THE AFTERNOON metoprolol tartrate, short acting, (LOPRESSOR) 25 mg tablet metoprolol tartrate 25 mg tablet TAKE 1/2 TABLET BY MOUTH TWICE DAILY apixaban (ELIQUIS) 5 mg tab(s) Eliquis 5 mg tablet TAKE 1 TABLET BY MOUTH TWICE A DAY solifenacin (VESICARE) 5 mg tablet Take 15 mg by mouth as directed. TAKE 2 TABLETS BY MOUTH IN THE MORNING, AND 1 TABLET IN THE EVENING Docusate Sodium 250 mg capsule Stool Softener Active cholecalciferol (VITAMIN D3) 5,000 unit tab Vitamin D3 1000 IU daily omega-3 fatty acids 1,000 mg cap Take by mouth q 24 HR. viatmin b complex - vitamin C - ferrous fumarate - folic acid (NEPHRON FA) 66 mg iron- 1,000 mcg tab tablet B Complex 100 sacod, Refill(s) 0 Start Date: 11/16/18 Status: Ordered calcium carbonate (TUMS ULTRA) 400 mg (1,000 mg) chew Take 1,000 mg by mouth three times daily. multivit-minerals/folic acid (ONE-A-DAY WOMEN VITACRAVES ORAL) Take by mouth. sennosides (SENOKOT ORAL) Take by mouth. Patient Entered Questionnaires Spine Questions 09/20/2022 11/24/2022 Pain Location: Neck Leg Pain Duration: 1 to 5 years - Pain over last 6 months: Every day or nearly every day in the past 6 months - Symptoms from neck/cervical spine: Yes Yes Employment Status: Disabled due to back pain, permanently or temporarily - Off work 1 month or more due to back/neck pain: Yes - Applied for/receive disability/WC due to low back/neck pain Yes - Involved in law suit/legal claim: No - Neck Questionnaires 09/20/2022 11/24/2022 Benzel Modified VELASQUEZ Score 12 (A lower score indicates increased pain and issues.) 13 (A lower score indicates increased pain and issues.) PROMIS Score Percentiles Physical Health 09/20/2022 11/24/2022 Physical Function Percentile 4 0 Sleep Percentile 24* 34 Fatigue Percentile 31 38 Pain Interference Percentile 4 10 PROMIS SOCIAL ROLE SCORE 09/20/2022 11/24/2022 Social Role Satisfaction Percentile 27* 21* PROMIS Global Health Scale 09/20/2022 Physical Health Percentile 2 Mental Health Percentile 13 Percentiles provide an indication of how the patient's score ranks in relation to the general population. Higher percentile rankings indicate better function/quality of life. 50th percentile is the average of the general population and indicates half of respondents had a worse score. Depression Screening: PHQ-9 09/20/2022 11/24/2022 Score 3 1 PHQ-9 Self-harm Question 09/20/2022 11/24/2022 Thoughts that you would be better off , or of hurting yourself in some way 0 0 PHQ-9 Self-Harm (Item 9) response options: 0 Not at all 1 Several days 2 More than half the days 3 Nearly every day PHQ-9 Levels: 0-4 No to mild depression 5-9 Mild depression 10-14 Moderate depression 15-19 Moderately severe depression 20-27 Severe depression OBJECTIVE: PHYSICAL EXAM: There were no vitals taken for this visit. Virtual visit NEURO TESTS: None DATA REVIEW:Diagnostic tests reviewed for today's visit, films/specimens were personally reviewed by me: [facility] records independently reviewed ASSESSMENT/PLAN No diagnosis found. Complex hx. Seen virtually for image review. Previously seen by Dr. Willis and thoracic and lumbar MRI ordered because of progressive leg pain, and LE weakness. Lumbar MRI with multilevel central stenosis. Severe at L2-3, L3-4. Moderate at L1-2, L4-5. Denies any red flags. Flat back as well. Given her complex hx and imag (more content not included)...[facility]10-20-[facility] History of Present illness Narrative* Champ Patel PA-C - 11/27/2022 6:56 AM EDT SPINE SURGERY ESTABLISHED This is a virtual visit using [employer] Video Visit. It required patient- provider interaction for the medical decision making as documented below. I have communicated my name and active licensure. The patient's identity and physical location wereverified at the time of this visit. Either the patient or their legal medical center representative has been informed of the risks and benefits of -- and alternatives to -- treatment through a remote evaluation andconsents to proceed with the evaluation remotely. DATE OF SERVICE: 11/27/2022 DATE OF LAST VISIT: 09/21/2022 SUBJECTIVE: HPI:Carrie Fletcher is a 52 year old female Seen virtually for image review. She continues to have burning pain in the legs, weakness and foot drop. Complex hx of paralysis in the legs post gastric bypass in 2017. ACDF in 2018 and regained her ability to walk. Burning pain and subjective weakness/heaviness in the legs progressed in 2021. No new symptoms since her last visit with Dr. Willis in September. REVIEW OF SYSTEMS: GENERAL: No weight loss or malaise MUSCULOSKELETAL: see HPI NEURO: No history of headaches, syncope, paralysis, seizures or tremors MEDICATIONS: gabapentin (NEURONTIN) 600 mg tablet Take 600 mg by mouth daily at bedtime. gabapentin (NEURONTIN) 300 mg capsule TAKE 1 CAPSULE BY MOUTH IN THE MORNING AND IN THE AFTERNOON metoprolol tartrate, short acting, (LOPRESSOR) 25 mg tablet metoprolol tartrate 25 mg tablet TAKE 1/2 TABLET BY MOUTH TWICE DAILY apixaban (ELIQUIS) 5 mg tab(s) Eliquis 5 mg tablet TAKE 1 TABLET BY MOUTH TWICE A DAY solifenacin (VESICARE) 5 mg tablet Take 15 mg by mouth as directed. TAKE 2 TABLETS BY MOUTH IN THE MORNING, AND 1 TABLET IN THE EVENING Docusate Sodium 250 mg capsule Stool Softener Active cholecalciferol (VITAMIN D3) 5,000 unit tab Vitamin D3 1000 IU daily omega-3 fatty acids 1,000 mg cap Take by mouth q 24 HR. viatmin b complex - vitamin C - ferrous fumarate - folic acid (NEPHRON FA) 66 mg iron- 1,000 mcg tab tablet B Complex 100 sacod, Refill(s) 0 Start Date: 11/16/18 Status: Ordered calcium carbonate (TUMS ULTRA) 400 mg (1,000 mg) chew Take 1,000 mg by mouth three times daily. multivit-minerals/folic acid (ONE-A-DAY WOMEN VITACRAVES ORAL) Take by mouth. sennosides (SENOKOT ORAL) Take by mouth. Patient Entered Questionnaires Spine Questions 09/20/2022 11/24/2022 Pain Location: Neck Leg Pain Duration: 1 to 5 years - Pain over last 6 months: Every day or nearly every day in the past 6 months - Symptoms from neck/cervical spine: Yes Yes Employment Status: Disabled due to back pain, permanently or temporarily - Off work 1 month or more due to back/neck pain: Yes - Applied for/receive disability/WC due to low back/neck pain Yes - Involved in law suit/legal claim: No - Neck Questionnaires 09/20/2022 11/24/2022 Benzel Modified VELASQUEZ Score 12 (A lower score indicates increased pain and issues.) 13 (A lower scoreindicates increased pain and issues.) PROMIS Score Percentiles Physical Health 09/20/2022 11/24/2022 Physical Function Percentile 4 0 Sleep Percentile 24* 34 Fatigue Percentile 31 38 Pain Interference Percentile 4 10 PROMIS SOCIAL ROLE SCORE 09/20/2022 11/24/2022 Social Role Satisfaction Percentile 27* 21* PROMIS Global Health Scale 09/20/2022 Physical Health Percentile 2 Mental Health Percentile 13 Percentiles provide an indication of how the patient's score ranks in relation to the general population. Higher percentile rankings indicate better function/quality of life. 50th percentile is the average of the general population and indicates half of respondents had a worse score. Depression Screening: PHQ-9 09/20/2022 11/24/2022 Score 3 1 PHQ-9 Self-harm Question 09/20/2022 11/24/2022 Thoughts that you would be better off , or of hurting yourself in some way 0 0 PHQ-9 Self-Harm (Item 9) response options: 0 Not at all 1 Several days 2 More than half the days 3 Nearly every day PHQ-9 Levels: 0-4 No to mild depression 5-9 Mild depression 10-14 Moderate depression 15-19 Moderately severe depression 20-27 Severe depression OBJECTIVE: PHYSICAL EXAM: There were no vitals taken for this visit. Virtual visit NEURO TESTS: None DATA REVIEW:Diagnostic tests reviewed for today's visit, films/specimens were personally reviewed by me: [facility] records independently reviewed ASSESSMENT/PLAN No diagnosis found. Complex hx. Seen virtually for image review. Previously seen by Dr. Willis and thoracic and lumbar MRI ordered because of progressive leg pain, and LE weakness. Lumbar MRI with multilevel central stenosis. Severe at L2-3, L3-4. Moderate at L1-2, L4-5. Denies any red flags. Flat back as well. Given her complex hx and imaging I would recommend she see Dr. Willis again prior to scheduling surgery. Appointment scheduled for 12/21/22. X-Ray and CT ordered. The majority of the visit was spent counseling and/or coordinating care for the patient. Total faceto face time was 30 minutes. SIGNATURE: Champ Patel PA-C PATIENT NAME: Carrie Fletcher DATE: November 27, 2022 TIME: 6:59 AM PAGER: documented in this encounterOhio[facility]10-09-2023 NoteHNO ID: [id number] Author: Alexis Ramos RT(Iram) Service: Radiology Author Type: Technologist Type: Progress Notes Filed: 11/16/2022 4:13 PM Note Text: Radiology Service Progress Note PATIENT NAME: Carrie Fletcher DATE OF SERVICE: November 16, 2022 TIME: 4:04 PM PATIENT IDENTITY VERIFICATION COMPLETED USING TWO (2) IDENTIFIERS: Name and Date of confirmed by patient verbally and Name and Date of confirmed by identification band FALL SCREENING: Has the patient had 2 falls in the last year or 1 fall with injury or currently using an Ambulatory Assistive Device (Walker, Cane, Wheelchair, Crutches, etc.)? No PATIENT GENDER DATA: Female. status: : No status: N/A PATIENT RELEVANT IMPLANT DATA REVIEWED: Yes RADIOLOGY DEPARTMENT: MR; Exam(s) Completed: Spine: Thoracic spine and Lumbar spine PERIPHERAL IV DATA: Not applicable SIGNED BY: RT Yg(R) November 16, 2022 4:04 [facility]10-09-2023 History of Present illness Narrative* Alexis Ramos RT(R) - 11/16/2022 4:00 PM EDT Radiology Service Progress Note PATIENT NAME: Carrie Fletcher DATE OF SERVICE: November 16, 2022 TIME: 4:04 PM PATIENT IDENTITY VERIFICATION COMPLETED USING TWO (2) IDENTIFIERS: Name and Date of confirmedby patient verbally and Name and Date of confirmed by identification band FALL SCREENING: Has the patient had 2 falls in the last year or 1 fall with injury or currently using an Ambulatory Assistive Device (Walker, Cane, Wheelchair, Crutches, etc.)? No PATIENT GENDER DATA: Female. status: : No status: N/A PATIENT RELEVANT IMPLANT DATA REVIEWED: Yes RADIOLOGY DEPARTMENT: MR; Exam(s) Completed: Spine: Thoracic spine and Lumbar spine PERIPHERAL IV DATA: Not applicable SIGNED BY: RT Yg(R) November 16, 2022 4:04 PM documented in this encounterOhio[facility]10-06-2023 NoteOccupational Therapy Covered [facility] 11/13. Spoke with Carrie regarding follow up with surgeon. She is pending further MRI's at this time. 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 Ilsa Peralta OTR/L CDRSUniversity of [facility]09-01-2023 Evaluation note* Encounter Date Diagnosis Assessment Notes Treatment Notes Treatment Clinical Notes Oct, Left foot pain (ICD-10 - M79.672) [facility] Other 08-17-2023 Evaluation note* Encounter Date Diagnosis Assessment Notes Treatment Notes Treatment Clinical Notes Sep, Spinal stenosis of lumbar region with neurogenic claudication (ICD-10 - M48.062) [employer] Other 08-14-2023 NoteHNO ID: [id number] Author: Moises Willis MD Service: ? Author Type: Physician Type: Progress Notes Filed: 09/21/2022 12:40 PM Note Text: SPINE SURGERY NEW PATIENT This is an in-person visit. Staff note: Patient with complex story, BLLE parparetic SP gastric bypass, no thoracic imaging, no lumbar imaging, 4.5 ACDF with some improvement, still with inability to walk without support and LLE foot drop, complaints of C5 palsy MRI prior to surgery to be sent in MRI t and L spine Scoli xr Plan to follow Moises Willis MD PCP: Lon Ibrahim REFERRING PROVIDER: Bryce Lara APRN.DRIVER MERCHAND[employer] SUBJECTIVE HISTORY OF PRESENT ILLNESS: Carrie Fletcher is a 52 year old female presenting with spouse. CHIEF COMPLAINT: R arm weakness PRECIPITATING EVENT: Gastric bypass surgery in 2018 DURATION OF SYMPTOMS: Greater Than 1 Year Patient reports that all of her symptoms began after gastric bypass surgery in 2018. She endorses left foot drop since then; she is unable to dorsi or plantarflex her foot and wears her AFO. She is unable to ambulate without assistive devices; she uses a walker at home and a wheelchair when out of the house. She does not stand without assistance. She had a C4-5 ACDF in 2019 following the gastric bypass; postoperative course was complicated by PE. She takes Eliquis 5 mg twice daily since. Her symptoms today include subjective weakness of the right arm, especially the right shoulder. She feels that she is not able to abduct or forward flex the right shoulder adequately compared to the left. She endorses further clumsiness of her hands bilaterally; she notes dropping mugs frequently. She also reports intermittent numbness of the left thumb. She does not have any neck pain per se, and denies radicular pain or paresthesias in the arms. She has ill-defined lower extremity pain, complicated by patchy numbness following the gastric bypass surgery. She does not feel her buttocks, but notes a burning sensation in her calves intermittently. She takes gabapentin 300 mg twice daily and 600 mg at night. She takes Tylenol frequently for diffuse body pain. 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 PAIN EVALUATION 09/20/2022 0225 09/21/2022 0903 Pain Level: 5 -- Pain Location: Ankle-Right Back neck Description: Numbness -- Duration Amount of Time: 5 -- Duration Units: Hours -- Frequency: Intermittent -- Pain Radiation: Nonspecific R arm, nonradicular Aggravating Factors: Above shoulder activities Alleviating Factors: None Pain Ratio: Pain in the arm is greater than in the neck DERMATOMAL DISTRIBUTION: Not applicable AMBULATORY STATUS: Impaired Home Distances ANTIPLATELET OR ANTICOAGULATION STATUS: Yes PE 2019 after ACDF ; Eliquis 5 mg BID PREVIOUS CONSERVATIVE TREATMENTS: OTC NSAIDS for 3 Months or Greater (Tylenol / acetaminophen) Dates of PT this year for shoulders Gabapentin as above PREVIOUS SPINAL SURGERY: SURGERY #1: ACDF C4-5 2019 There is no problem list on file for this patient. No past medical history on file. No past surgical history on file. No family history on file. Social History Tobacco Use Smoking status: Never Smokeless tobacco: Never Substance Use Topics Alcohol use: Never Drug use: Never ALLERGIES Allergen Reactions Amoxicillin-Pot Cla* Diarrhea Oxycodone Unknown Adhesive Tape-Silic* Rash MEDICATIONS: gabapentin (NEURONTIN) 600 mg tablet Take 600 mg by mouth daily at bedtime. gabapentin (NEURONTIN) 300 mg capsule TAKE 1 CAPSULE BY MOUTH IN THE MORNING AND IN THE AFTERNOON metoprolol tartrate, short acting, (LOPRESSOR) 25 mg tablet metoprolol tartrate 25 mg tablet TAKE 1/2 TABLET BY MOUTH TWICE DAILY apixaban (ELIQUIS) 5 mg tab(s) Eliquis 5 mg tablet TAKE 1 TABLET BY MOUTH TWICE A DAY solifenacin (VESICARE) 5 mg tablet Take 15 mg by mouth as directed. TAKE 2 TABLETS BY MOUTH IN THE MORNING, AND 1 TABLET IN THE EVENING Docusate Sodium 250 mg capsule Stool Softener Active cholecalciferol (VITAMIN D3) 5,000 unit tab Vitamin D3 1000 IU daily omega-3 fatty acids 1,000 mg cap Take by mouth q 24 HR. viatmin b complex - vitamin C - ferrous fumarate - folic acid (NEPHRON FA) 66 mg iron- 1,000 mcg tab tablet B Complex 100 sacod, Refill(s) 0 Start Date: 11/16/18 Status: Ordered calcium carbonate (TUMS ULTRA) 400 mg (1,000 mg) chew Take 1,000 mg by mouth three times daily. multivit-minerals/folic acid (ONE-A-DAY WOMEN VITACRAVES ORAL) Take by mouth. sennosides (SENOKOT ORAL) Take by mouth. REVIEW OF SYSTEMS: GENERAL: No weight loss or malaise MUSCULOSKELETAL: Negative for joint pain, swelling or muscle pain NEURO: No history of headaches, syncope, paralysis, seizures or tremors Patient Entered Questionnaires Spine Questions 09/20/2022 Pain Location: Neck Pain Duration: 1 to 5 years Pain over last 6 months: Every day or nearly every day in the past 6 months Sy (more content not included)...[facility]08-14-2023 History of Present illness Narrative* Moises Willis MD - 09/21/2022 9:31 AM EDT Images from the original note were not included. SPINE SURGERY NEW PATIENT This is an in-person visit. Staff note: Patient with complex story, BLLE parparetic SP gastric bypass, no thoracic imaging, no lumbar imaging, 4.5 ACDF with some improvement, still with inability to walk without support and LLE foot drop, complaints of C5 palsy MRI prior to surgery to be sent in MRI t and L spine Scoli xr Plan to follow Moises Willis MD PCP: Lon Ibrahim REFERRING PROVIDER: Bryce Lara APRN.DRIVER MERCHANDISER SUBJECTIVE HISTORY OF PRESENT ILLNESS: Carrie Fletcher is a 52 year old female presenting with spouse. CHIEF COMPLAINT: R arm weakness PRECIPITATING EVENT: Gastric bypass surgery in 2018 DURATION OF SYMPTOMS: Greater Than 1 Year Patient reports that all of her symptoms began after gastric bypass surgery in 2018. She endorses left foot drop since then; she is unable to dorsi or plantarflex her foot and wears her AFO. She is unable to ambulate without assistive devices; she uses a walker at home and a wheelchair when out of the house. She does not stand without assistance. She had a C4-5 ACDF in 2019 following the gastric bypass; postoperative course was complicated by PE. She takes Eliquis 5 mg twice daily since. Her symptoms today include subjective weakness of the right arm, especially the right shoulder. Shefeels that she is not able to abduct or forward flex the right shoulder adequately compared to the left. She endorses further clumsiness of her hands bilaterally; she notes dropping mugs frequently. She also reports intermittent numbness of the left thumb. She does not have any neck pain per se, and denies radicular pain or paresthesias in the arms. She has ill-defined lower extremity pain, complicated by patchy numbness following the gastric bypass surgery. She does not feel her buttocks, but notes a burning sensation in her calves intermittently. She takes gabapentin 300 mg twice daily and 600 mg at night. She takes Tylenol frequently for diffuse body pain. 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 PAIN EVALUATION 09/20/2022 0225 09/21/2022 0925 Pain Level: 5 -- Pain Location: Ankle-Right Back neck Description: Numbness -- Duration Amount of Time: 5 -- Duration Units: Hours -- Frequency: Intermittent -- Pain Radiation: Nonspecific R arm, nonradicular Aggravating Factors: Above shoulder activities Alleviating Factors: None Pain Ratio: Pain in the arm is greater than in the neck DERMATOMAL DISTRIBUTION: Not applicable AMBULATORY STATUS: Impaired Home Distances ANTIPLATELET OR ANTICOAGULATION STATUS: Yes PE 2019 after ACDF ; Eliquis 5 mg BID PREVIOUS CONSERVATIVE TREATMENTS: OTC NSAIDS for 3 Months or Greater (Tylenol / acetaminophen) Dates of PT this year for shoulders Gabapentin as above PREVIOUS SPINAL SURGERY: SURGERY #1: ACDF C4-5 2019 There is no problem list on file for this patient. No past medical history on file. No past surgical history on file. No family history on file. Social History Tobacco Use Smoking status: Never Smokeless tobacco: Never Substance Use Topics Alcohol use: Never Drug use: Never ALLERGIES Allergen Reactions Amoxicillin-Pot Cla* Diarrhea Oxycodone Unknown Adhesive Tape-Silic* Rash MEDICATIONS: gabapentin (NEURONTIN) 600 mg tablet Take 600 mg by mouth daily at bedtime. gabapentin (NEURONTIN) 300 mg capsule TAKE 1 CAPSULE BY MOUTH IN THE MORNING AND IN THE AFTERNOON metoprolol tartrate, short acting, (LOPRESSOR) 25 mg tablet metoprolol tartrate 25 mg tablet TAKE 1/2 TABLET BY MOUTH TWICE DAILY apixaban (ELIQUIS) 5 mg tab(s) Eliquis 5 mg tablet TAKE 1 TABLET BY MOUTH TWICE A DAY solifenacin (VESICARE) 5 mg tablet Take 15 mg by mouth as directed. TAKE 2 TABLETS BY MOUTH IN THE MORNING, AND 1 TABLET IN THE EVENING Docusate Sodium 250 mg capsule Stool Softener Active cholecalciferol (VITAMIN D3) 5,000 unit tab Vitamin D3 1000 IU daily omega-3 fatty acids 1,000 mg cap Take by mouth q 24 HR. viatmin b complex - vitamin C - ferrous fumarate - folic acid (NEPHRON FA) 66 mg iron- 1,000 mcg tab tablet B Complex 100 sacod, Refill(s) 0 Start Date: 11/16/18 Status: Ordered calcium carbonate (TUMS ULTRA) 400 mg (1,000 mg) chew Take 1,000 mg by mouth three times daily. multivit-minerals/folic acid (ONE-A-DAY WOMEN VITACRAVES ORAL) Take by mouth. sennosides (SENOKOT ORAL) Take by mouth. REVIEW OF SYSTEMS: GENERAL: No weight loss or malaise MUSCULOSKELETAL: Negative for joint pain, swelling or muscle pain NEURO: No history of headaches, syncope, paralysis, seizures or tremors Patient Entered Questionnaires Spine Questions 09/20/2022 Pain Location: Neck Pain Duration: 1 to 5 years Pain over last 6 months: Every day or nearly every day in the past 6 months Symptoms from neck/cervical spine: Yes Employment Status: Disabled due to back pain, permanently or temporarily Off work 1 month or more due to back/neck pain: Yes Applied for/receive disability/WC due to low back/neck pain Yes Involved in law suit/legal claim: No Neck Questionnaires 09/20/2022 Benzel Modified VELASQUEZ Score 12 (A lower score indicates increased pain and issues.) PROMIS Score Percentiles Physical Health 09/20/2022 Physical Function Percentile 4 Sleep Percentile 24* Fatigue Percentile 31 Pain Interference Percentile 4 PROMIS SOCIAL ROLE SCORE 09/20/2022 Social Role Satisfaction Percentile 27* PROMIS Global Health Scale 09/20/2022 Physical Health Percentile 2 Mental Health Percentile 13 Percentiles provide an indication of how the patient's score ranks in relation to the general population. Higher percentile rankings indicate better function/quality of life. 50th percentile is the average of the general population and indicates half of respondents had a worse score. Depression Screening: PHQ-9 09/20/2022 Score 3 PHQ-9 Self-harm Question 09/20/2022 Thoughts that you would be better off , or of hurting yourself in some way 0 PHQ-9 Self-Harm (Item 9) response options: 0 Not at all 1 Several days 2 More than half the days 3 Nearly every day PHQ-9 Levels: 0-4 No to mild depression 5-9 Mild depression 10-14 Moderate depression 15-19 Moderately severe depression 20-27 Severe depression OBJECTIVE: PHYSICAL EXAM BP 119/67 Pulse 77 Resp 18 Ht 188 cm (6' 2 ) Wt 136.1 kg (300 lb) LMP (LMP Unknown) SpO2 96% BMI 38.52 kg/m GENERAL APPEARANCE: Well nourished, well developed, and no apparent distress. NEURO PSYCH: Patient oriented to person, place, and time. Mood pleasant. Benign affect. MUSCULOSKELETAL VISUAL INSPECTION CERVICAL: WNL THORACIC: WNL LUMBAR: WNL MOTOR: Deltoid Right: 4, Left: 5 Elbow Flexors Right: 5, Left: 5 Wrist Extensors Right: 5, Left: 5 Elbow Extensors Right: 5, Left: 5 Finger Flexors (Distal Phalanx of Middle Finger) Right: 5, Left: 5 Finger Abductors (Little Finger) Right: 4, Left: 4 Hip Flexors Right: 4, Left: 4 Knee Extensors Right 4 and Left 4 Long Toe Extensors Right: 4, Left: 0 Ankle Plantar Flexors Right: 4, Left: 0 SENSORY: Normal sensory exam GAIT: In wheelchair, unable to ambulate for exam today REFLEXES: +2 to bilateral U/L extremities. PROPRIOCEPTION: Not tested. LONG TRACT SIGNS: No clonus. No Hoffmans. NEURO TESTS: None DATA REVIEW [facility] records independently reviewed Imaging and outside records independently reviewed ASSESSMENT/PLAN (M48.061) Spinal stenosis of lumbar region, unspecified whether neurogenic claudication present (primary encounter diagnosis) (M48.02) Spinal stenosis in cervical region (R29.898) Arm weakness Moises Willis MD SIGNATURE: Moises Willis MD PATIENT NAME: Carrie Fletcher DATE: September 21, 2022 TIME: 9:31 AM PAGER: documented in this encounterOhio[facility]08-[facility] Evaluation note* Encounter Date Diagnosis Assessment Notes Treatment Notes Treatment Clinical Notes Sep, Supraventricular tachycardia (ICD-10 - I47.1) [employer] Other 2023 Evaluation note* Encounter Date Diagnosis Assessment Notes Treatment Notes Treatment Clinical Notes Aug, Left foot pain (ICD-10 - M79.672) Aug, Fall, initial encounter (ICD-10 - W19.XXXA) [employer] Other 07-20-2023 NoteOccupational Therapy Covered [facility] Spoke with Mrs. Fletcher today. States she has a LE fx and follows up with a surgeon in October. 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 Mailbox stated full, will re attempt at a later time. Ilsa Peralta OTR/L CDRSUniversFayette [facility]06-21-2023 Miscellaneous Notes* Telephone Encounter - Bryce Lara APRN.CNP - 07/29/2022 10:38 AM EDT Called patient after reviewing all uploaded files including MRI, EMG, CT scan. 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 MRI shows severe canal stenosis as well as bilateral foraminal narrowing. I discussed with the patient I feel she should see a cervical spine surgeon to see if she is a surgical candidate due to the severity of her symptoms and how they are progressing. Will have schedulers reach out to patient to schedule and in the meantime patient is instructed to continue PT to maintain strength. All questions answered. Bryce Lara APRN.CNP documented in this encounterOhiohealth [facility] Hospital06-20-2023 Evaluation note* Encounter Date Diagnosis Assessment Notes Treatment Notes Treatment Clinical Notes Jul, Fall, subsequent encounter (ICD-10 - W19.XXXD) [employer] Other 06-20-2023 Miscellaneous Notes* Telephone Encounter - Meaghan Moser [facility] [place] [facility] - 07/28/2022 9:49 AM EDT Pt called; states she had EMG completed on 06/06/22 at an external facility; she will notify them tofax it to [phone]. Electronically signed by Meaghan Moser [facility] at 07/28/2022 9:50 AM EDT documented in this encounterOhiohealth Shelby Hospital06-14-2023 Miscellaneous Notes* Telephone Encounter - Bryce Lara APRN.CNP - 07/22/2022 9:28 AM EDT Called patient to go over CT results next step in plan of care. No answer on patient's phone and voicemail was full could not leave a message. We will place order for EMG of right upper extremity to confirm cervical radiculopathy versus neuropathy. Reviewed with Dr Banks and I will also review with Dr. 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 Once I have confirmed this with an EMG I will probably recommend patient see first available surgeon to discuss possible revision versus alternative treatments. Bryce Lara APRN.MERLYN * Telephone Encounter - Donna Pal - 07/16/2022 1:32 PM EDT Received outside imaging/report: CD Yes Report No Images Uploaded: Yes Report Scanned: No Imaging received CT Cervical Spine Date of study 07/13/22 Verified imaging and reports were received. Forwarded to team for review. Donna Pal documented in this encounterOhiohealth Shelby Hospital06-09-2023 Miscellaneous Notes* Telephone Encounter - Donna Pal - 07/17/2022 12:53 PM EDT Received the following record(s) via Fax. -MRI Cervical Spine WO Contrast Date 05/18/22 Sending images over through PACS. Record(s) scanned into pt's chart. Donna Pal documented in this encounterOhiohealth Shelby Hospital05-22-2023 NoteHNO ID: [id number] Author: Bryce Lara APRN.DRIVER MERCHANDISER Service: ? Author Type: Nurse Practitioner Type: Progress Notes Filed: 07/01/2022 11:56 AM Note Text: SPINE SURGERY OUTPATIENT CONSULT This is an in-person visit. SERVICE DATE: 06/29/2022 PCP: Lon Ibrahim DO REFERRING PROVIDER: Lon Antonio DO [address] [place] [phone] Consult requested for an opinion regarding the evaluation and treatment of right arm weakness. My final impression and recommendations will be communicated back to the requesting physician by way of the shared medical record or letter via US mail. SUBJECTIVE Carrie Fletcher is a 51 year old female presenting with her brother. CHIEF COMPLAINT: Right arm weakness In 2018 patient had gastric bypass and woke up with left foot drop was discharged to a jail and now wears AFO brace constantly since. Has been in PT since 2018. She endorses left leg numbness and difficulty walking uses a walker shortly and currently in wheelchair. She had C4/5 ACDF in 2019 still having difficulty walking has recently fall twice. CMT: PT, Gabapentin 300 mg BID, 600 mg at night + bowel and bladder incontinence; she does have a spastic bladder following ACDF on Vesicare. Denies trouble using hands. Denies numbness and tingling. Denies neck pain. HISTORY OF PRESENT ILLNESS PRECIPITATING EVENT: None DURATION OF SYMPTOMS: Greater Than 1 Year Progressive worsening right arm weakness AMBULATORY STATUS: Impaired Community Distances ANTIPLATELET OR ANTICOAGULATION STATUS: Yes SVTs PREVIOUS CONSERVATIVE TREATMENTS: See HPI PREVIOUS SPINAL SURGERY: SURGERY #1: ACDF C4/5 2019 ALLERGIES Allergen Reactions Amoxicillin-Pot Cla* Diarrhea Oxycodone Unknown Adhesive Tape-Silic* Rash MEDICATIONS: gabapentin (NEURONTIN) 600 mg tablet Take 600 mg by mouth daily at bedtime. gabapentin (NEURONTIN) 300 mg capsule TAKE 1 CAPSULE BY MOUTH IN THE MORNING AND IN THE AFTERNOON metoprolol tartrate, short acting, (LOPRESSOR) 25 mg tablet metoprolol tartrate 25 mg tablet TAKE 1/2 TABLET BY MOUTH TWICE DAILY apixaban (ELIQUIS) 5 mg tab(s) Eliquis 5 mg tablet TAKE 1 TABLET BY MOUTH TWICE A DAY solifenacin (VESICARE) 5 mg tablet Take 15 mg by mouth as directed. TAKE 2 TABLETS BY MOUTH IN THE MORNING, AND 1 TABLET IN THE EVENING Docusate Sodium 250 mg capsule Stool Softener Active cholecalciferol (VITAMIN D3) 5,000 unit tab Vitamin D3 1000 IU daily omega-3 fatty acids 1,000 mg cap Take by mouth q 24 HR. viatmin b complex - vitamin C - ferrous fumarate - folic acid (NEPHRON FA) 66 mg iron- 1,000 mcg tab tablet B Complex 100 sacod, Refill(s) 0 Start Date: 11/16/18 Status: Ordered calcium carbonate (TUMS ULTRA) 400 mg (1,000 mg) chew Take 1,000 mg by mouth three times daily. multivit-minerals/folic acid (ONE-A-DAY WOMEN VITACRAVES ORAL) Take by mouth. sennosides (SENOKOT ORAL) Take by mouth. REVIEW OF SYSTEMS: GENERAL: No weight loss or malaise MUSCULOSKELETAL: Negative for joint pain, swelling or muscle pain NEURO: No history of headaches, syncope, paralysis, seizures or tremors Patient Entered Questionnaires PROMIS Score Percentiles Percentiles provide an indication of how the patient's score ranks in relation to the general population. Higher percentile rankings indicate better function/quality of life. 50th percentile is the average of the general population and indicates half of respondents had a worse score. Depression Screening: PHQ-9 Self-Harm (Item 9) response options: 0 Not at all 1 Several days 2 More than half the days 3 Nearly every day PHQ-9 Levels: 0-4 No to mild depression 5-9 Mild depression 10-14 Moderate depression 15-19 Moderately severe depression 20-27 Severe depression OBJECTIVE: PHYSICAL EXAM BP 121/71 Pulse 88 Resp 16 Ht 188 cm (6' 2 ) SpO2 94% GENERAL APPEARANCE: Well nourished, well developed, and no apparent distress. NEURO PSYCH: Patient oriented to person, place, and time. Mood pleasant. Benign affect. MUSCULOSKELETAL VISUAL INSPECTION CERVICAL: WNL THORACIC: WNL LUMBAR: WNL PALPATION: SPINOUS PROCESS: No pain. PARASPINALS: No pain. MUSCLE BULK: Normal and symmetrical in the upper AND lower extremities. MUSCLE TONE: Normal. MOTOR: Deltoid Right: 4, Left: 5 SENSORY: Normal sensory exam GAIT: Abnormal. Antalgic. Steppage gait. REFLEXES: +2 to bilateral U/L extremities. PROPRIOCEPTION: Normal. LONG TRACT SIGNS: No clonus. No Hoffmans. LHERMITTE SIGN: Negative. SPURLING'S TEST: Negative. DATA REVIEW Images independently reviewed with the patient MRI cervical spine reveals chronic myomalacia centered at C for C5 level. Prior anterior cervical discectomy and fusion at C4-5. Mild spinal stenosis at C4-5 moderate canal stenosis at C3-C4 with bilateral foraminal narrowing C5-6 severe canal stenosis and possible suspected severe bilateral foraminal stenos (more content not included)...[facility]05-15-2023 NoteHNO ID: [id number] Author: Danielle Alarcon PA-C Service: ? Author Type: Physician Pot Puncher Type: Progress Notes Filed: 06/22/2022 8:37 AM Note Text: Per Triage: Carrie Fletcher is a 51 year old female that requests evaluation of spine. Per review, they have symptoms of difficulty walking, left leg numbness, right foot numbness. Right shoulder weakness. Request: 1st available Referring provider: Dr. Lno Antonio Patient out of state: no 2nd opinion: no Prior spine surgery: [place] [address] CMT: PT Gabapentin Tylenol Studies (Reports unless indicated) MRI cervical spine report 05/18/22 1. Anterior cervical discectomy and fusion of C4-C5. 2. Multilevel cervical spondylosis, most notable at C5-C6 (severe spinal canal stenosis, suspected severe bilateral foraminal narrowing). 3. Chronic C4-C5 myelomalacia. Disposition: Based on triage, recommend patient be scheduled with surgical GARIMA for eval - in person for exam. May need xrays and CT cervical spine as well. [facility] History of Present illness Narrative* Danielle Alarcon PA-C - 06/22/2022 8:34 AM EDT Per Triage: Carrie Fletcher is a 51 year old female that requests evaluation of spine. Per review, they have symptoms of difficulty walking, left leg numbness, right foot numbness. Right shoulder weakness. Request: 1st available Referring provider: Dr. Lon Antonio Patient out of state: no 2nd opinion: no Prior spine surgery: yes [id number] [place] [address] CMT: PT Gabapentin Tylenol Studies (Reports unless indicated) MRI cervical spine report 05/18/22 1. Anterior cervical discectomy and fusion of C4-C5. 2. Multilevel cervical spondylosis, most notable at C5-C6 (severe spinal canal stenosis, suspected severe bilateral foraminal narrowing). 3. Chronic C4-C5 myelomalacia. Disposition: Based on triage, recommend patient be scheduled with surgical GARIMA for eval - in person for exam. May need xrays and CT cervical spine as well. Danielle Alarcon PA-C * Anastasia Berumen - 06/17/2022 4:51 PM EDT Patient name: Carrie Fletcher Are you being referred by a [facility] Provider or [facility] Management Provider at [facility]? No If answer is YES please schedule directly with surgeon, triage does not need to be completed. Is this a self-referral No If not, who is the Referring Provider Dr. Lon Antonio Is this a 2nd opinion? No Were you offered surgery? No MRI/CT/myelogram within 12 months? Yes If NO , please refer to medical spine or PCP to complete above imaging, triage does not need to be completed If YES, please ask for the name/address of the facility where the MRI/CT/myelogram was completed: [address] , [place] [address] MRI/CT/myelogram viewable in Epic: No If not, please provide [phone] to fax in imaging reports for review. Also, please inform patient to hand carry imaging disc to appointment. XR (spine) within 12 months: No If YES, please ask for the name/address of the facility where the XR was completed: Dr. Banks's patients: Have you had previous EMG/Nerve Conduction Study, Ultrasound, or MRI for thesesame symptoms? If YES, please ask for the name/address of the facility where they were completed: Requested provider (First and Last name): unknown Are you interested in a virtual visit if offered? 1. Where are you having symptoms related to this visit? Cervical spine Back pain No Leg pain No Arm pain No Neck pain No 2. Are you having any of the following symptoms: Difficulty walking Yes Numbness Yes Lt leg and Rt foot Weakness Yes Rt shoulder Trouble using your hands? No 3. Have you had any injections or physical therapy in the last 12 months? Yes If YES then please ask for the name/address of the facility where the injections and/or physical therapy was completed PT: [facility] [address] [place] [address] Have you tried any other kinds of non-surgical treatments in the last 12 months? (For example: NSAIDS, muscle relaxants, analgesics, oral steroids, Chiropractor, Acupuncture): Gabapentin, Tylenol 4. Are you currently taking daily prescribed narcotic medications for your current symptoms (For example Oxycodone, Hydrocodone, Tramadol, Morphine, Other)? No 5. Have you had previous spinal surgery for this same symptoms? Yes 2019 If YES please ask for the name of facility/address of where the surgery was completed: [facility] [place] [address] Additional Comments [phone] documented in this encounterOhio[facility]05-10-2023 NoteHNO ID: [id number] Author: Anastasia Berumen Service: ? Author Type: ? Type: Progress Notes Filed: 06/22/2022 8:37 AM Note Text: Patient name: Carrie Fletcher Are you being referred by a [facility] or [facility] Management Provider at [facility]? No If answer is YES please schedule directly with surgeon, triage does not need to be completed. Is this a self-referral No If not, who is the Referring Provider Dr. Lon Antonio Is this a 2nd opinion? No Were you offered surgery? No MRI/CT/myelogram within 12 months? Yes If NO , please refer to medical spine or PCP to complete above imaging, triage does not need to be completed If YES,? please ask for the name/address of the facility where the MRI/CT/myelogram was completed: [facility] [address] [place] [address] MRI/CT/myelogram viewable in Epic: No If not, please provide [phone] to fax in imaging reports for review. Also, please inform patient to hand carry imaging disc to appointment. XR (spine) within 12 months: No If YES,? please ask for the name/address of the facility where the XR was completed: Dr. Banks's patients: Have you had previous EMG/Nerve Conduction Study, Ultrasound, or MRI for these same symptoms? If YES,? please ask for the name/address of the facility where they were completed: Requested provider (First and Last name): unknown Are you interested in a virtual visit if offered? 1. Where are you having symptoms related to this visit? Cervical spine Back pain No Leg pain No Arm pain No Neck pain No 2. Are you having any of the following symptoms: Difficulty walking Yes Numbness Yes Lt leg and Rt foot Weakness Yes Rt shoulder Trouble using your hands? No 3. Have you had any injections or physical therapy in the last 12 months? Yes If YES then please ask for the name/address of the facility where the injections and/or physical therapy was completed PT: [facility] [address] [place] [address] Have you tried any other kinds of non-surgical treatments in the last 12 months? (For example: NSAIDS, muscle relaxants, analgesics, oral steroids, Chiropractor, Acupuncture): Gabapentin, Tylenol 4. Are you currently taking daily prescribed narcotic medications for your current symptoms (For example Oxycodone, Hydrocodone, Tramadol, Morphine, Other)? No 5. Have you had previous spinal surgery for this same symptoms? Yes 2019 If YES? please ask for the name of facility/address of where the surgery was completed: [facility] [address] [place] [address] Additional Comments [phone]03-[facility] Note Occupational Therapy Covered [facility] 04/08/22 Follow up vladimir regarding advancement with community services such as Waiver and OOD. 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 Stated Medicare will cover new wheelchair for her. Will plan to follow up 2-4 weeks to determine OOD application status and Waiver prior to return to local company truck driver rehab. Ilsa Peralta OTR/L CDRSUniOhio State Health System02-16-2023 Evaluation note* Encounter Date Diagnosis Assessment Notes Treatment Notes Treatment Clinical Notes Mar, Spinal stenosis of lumbar region with neurogenic claudication (ICD-10 - M48.062) Functional community mobility evaluation by occupational therapist Ilsa Peralta performed in regard to her driving capacities. In my medical opinion due to her righ upper and bilateral lower extremity weakness .The patient advised I am not comfortable releasing her to operate a motor vehicle even with adaptive driving. I recommend she consults with a neurosurgeon for a neurological evaluation and recommendation. Neurosurgeon Dr.Deborah Eubanks recommended. Mar, S/P cervical spinal fusion (ICD-10 - Z98.1) The patient continues to have right armed weakness, she has not noticed any improvement since starting occupational therapy. Discussion was had an MRI of the cervical spine will likely be needed. We will let the neurosurgeon make this decision. Mar, Left foot drop (ICD-10 - M21.372) The patient encouraged following through with Kavya as scheduled today in regard to her broken left foot brace. Left foot drop continues to be evident Mar, Hyperlipidemia (ICD-10 - E78.5) Blood work ordered. Mar, S/P bariatric surger y (ICD-10 - Z98.84) Mar, Hyperglycemia (ICD-1 0 - R73.9) Mar, Neurogenic bladder (ICD-10 - N31.9) Per patient the above medication seems to have made an improvement in regards to better bladder control. The patient encouraged to continue following with urology as scheduled. 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 Chart Reviewed: Yes Family/Caregiver Present: No Patient Active Problem List Diagnosis Paraplegia, unspecified (CMS/HCC) Past Surgical History: Procedure Laterality Date CT GUIDED PERCUTANEOUS PERITONEAL OR RETROPERITONEAL FLUID COLLECTION DRAINAGE 12/08/2019 CT GUIDED PERCUTANEOUS PERITONEAL OR RETROPERITONEAL FLUID COLLECTION DRAINAGE PRO CONVERSION IR BILIARY CHOLANGIOGRAM 01/16/2020 IR BILIARY CHOLANGIOGRAM PRO CONVERSION Functional Community Mobility Assessment Time: 8:00-9:30 Diagnosis and Onset: Ms. 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 Per history, she underwent gastric bypass in 2018 and woke up from surgery with no lower extremity function and right shoulder weakness. 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 2019 she underwent C3-C4 fusion. She is now able to ambulate very short distances with a rolling walker, however is compromised due to lower extremity weakness, left foot drop, lower extremity numbness, and decreased endurance. She is mostly dependent on a manual wheelchair throughout the community and is only able to ambulate very short distances such as in her house using her walker. She reports having increased falls within the last few months and increased lower extremity weakness. She stated that this is being monitored and she may need further surgical intervention. She is dependent upon communitymobility by her family. She has not driven in approximately 5 years and her goal is to be able to resume independent community mobility by using adaptive devices. She was referred to determine adaptive device recommendations, return to community mobility independence, and vehicle selection assistance due to paraplegia. Past History: Gastric bypass 2017, C3-C4 fusion 2018, right ankle fracture 2014, cholecystectomy 2020, neurogenic bladder. Medications: Gabapentin, antibiotics, vitamin B, vitamin D, multivitamin, stool softener, Eliquis, metoprolol [place]: [id number]. State: [place]. Expiration Date: 07/28/2023. License Restrictions: B. [place]. Vehicle Make and Model: Currently does not have a vehicle. Attempted driving since disability: No Last time driven: 2018. Current means of community mobility: Dependent upon family. Brother provides most driving. 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 Currently dependent hand primary passenger. Necessity for eval: medical condition, cannot operate OEM setup Denies History of : Seizure Spasms Drowsiness Education/Occupation: Currently off work. 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 Goals with Driving: Return to independence with community mobility, use of adaptive devices, return to employment. Pain Pain Assessment Pain Assessment: No/denies pain Precautions Precautions Prosthesis/Orthosis Used: Uses left AFO Visual Oculomotor Skills Visual History: Ms. Fletcher wears glasses. She reports she has seen an wholesale and retail merchant within the past year. She denies any visual changes. Range of Motion: Right eye: Full. Left eye: Full. Both eyes: Full. Convergence: Normal. Saccades: Horizontal and vertical. Right Field: Direct fixation. Left Field: Direct fixation. Pursuits: Sustains fixation. Stereo Optical [facility] Vision Test Peripheral Brown Left Eye: 40 degrees nasal-85 degrees temporal intact. Right Eye: 40 degrees nasal-85 degrees temporal intact. Bilateral Simultaneous Stimulation: Intact at 70 degrees. Contrast Sensitivity: 6/9, within functional limits. Distant Visual Acuity: Assessed with correction. Left Eye: 20/40-1. Both Eyes: 20/40-1. Right Eye: 20/40. Near Visual Acuity: Within functional limits. Depth Perception: 3/[address] Sign Recognition: 10/12. Color Recognition: 4/4. Comments: MVPT: Visual Processing Raw Score: 36/36. Within normal limits. Norm: 32-36. Processing Time: 3.25 seconds. Within normal limits. Norm: 3.0-5.4 seconds. Comments: Cognition Cognition Overall Cognitive Status: Within Functional Limits Arousal/Alertness: Appropriate responses to stimuli Orientation Level: Oriented X4 Following Commands: Follows multistep commands without difficulty Communication: Intact Hearing: Intact Ubaldo Cognitive Assessment: Evaluates orientation and general cognitive functioning. Norm equals 26 or more. Score: 26. WFL Nenana Making Part B: Evaluates divided attention and mental flexibility. Completion time: 105 seconds. Comments: No error (more content not included)... [facility]01-23-2023 NotePhysical Therapy Communications Note Patient Name: Carrie Fletcher Today's Date: 03/02/22 Total Visit Count: 1 Time In: 1:15 PM Time Out: 1:35 PM Subjective: Carrie Fletcher is a 51 y.o. 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 She has not driven in some time and wants to get a van that she can drive with modifications. Currently her brother, Arvin, brings her to appointments, but the patient states he is starting to become frustrated with transporting her. She wishes to gain some independence by returning to driving. In 2017 she underwent gastric bypass but woke up without BLE function and limited R shoulder function. For the next 1.5 years she was paralyzed from the waist down and was operating at a slideboard level. In August 2018, she underwent a C3-C4 fusion at the [facility]. She experienced partial return of the BLEs. She has L drop foot; generally her L leg is weaker than the R, but both are problematic. Her R leg is also weak 2/2 a fall in 2014 resulting in a R ankle fx; s/p non-operative management. In 2019, she had plastic surgery to remove excess skin from her pelvis. And in 2020 she had a cholecystectomy. She denies any significant change in her mobility after the last 2 surgeries. Within the last month, her pain has intensified and legs are going more numb than usual. Her walking is also more difficult despite use of the L AFO; feels that her L foot drags on the ground occasionally. Carrie walks with the FWW at home and uses a manual WC or uses the store's scooter in the community. She does not use the WC in the home. She has experienced 2 falls in the last 3 months. Her pain is in the LLE from the knee to the toes and describes it as numb and burning. She is on Gabapentin but states the pain has been constant. The pain intensifies when she lays down at night (supine). She uses a special mattress at home because she is prone to pressure sores. She wears a brief d/t urinary incontinence, which has not changed since . Carrie lives 1.5 hours away from [facility] and would prefer to undergo PT closer to home, as transportation is an issue. However, she is interested in scheduling a Covered Buckle Assembler's Evaluation at [facility]. Plan: Carrie was instructed to contact her PCP to send her PT referral to the PT clinic closer to home that she has in mind. She was scheduled for an OT Covered Buckle Assembler's Evaluation today, which she will attend on 03/17/22. No formal PT evaluation was completed today, as it is in the patient's best interest to attend PT closer to home.[facility]01-23-2023 [id number] Carrie Fletcher 1970 F Date Provider Department Center 03/02/2022 [facility] No [facility]* Encounter Date Diagnosis Assessment Notes Treatment Notes Treatment Clinical Notes Feb, Depression (ICD-10 - F32.9) Patient declined treatment. I encouraged her to call if she changes her mind and or if depression becomes worse. Patient states that she can be a little emotional but mainly due to her health conditions. Feb, BMI 45.0-49.9, adult (ICD-10 - Z68.42) Patient reports a poor diet over the last several months due to the holidays and eating more carbohydrates. Feb, Spinal stenosis of lumbar region with neurogenic claudication (ICD-10 - M48.062) Patient has an appt at a special rehabilitation center to determine if she would be a candidate to learn to drive again with modifications. I am concerned with her increased weakness and increased neuropathy symptoms. Prevous surgery and followed by [facility]. I encouraged her to have rehab dept fax us a report after her consultation and will determine further work up / diagnostic imaging following report. Continue with gabapentin for the time being. Feb, S/P cervical spinal fusion (ICD-10 - Z98.1) Patient reports left sided neck pain, with arm weakness however worse in right upper extremity vs left. Feb, Upper extremity weakness (ICD-10 - R29.898) Patient does report worsening upper extremity weakness. I am concerned this is related to her cevical spine therefore we discussed further work up once she has consult with rehab. Feb, Neurogenic bladder (ICD-10 - N31.9) Patient is to continue with the above regimen and urologists plan of care. [employer] Other 01-17-2023 Hospital Discharge instructions Patient Education 02/24/2022 12:56:44 Urinary Tract Infection, Adult Urinary Tract Infection, Adult A urinary tract infection (UTI) is an infection of any part of the urinary tract. The urinary tractincludes the kidneys, ureters, bladder, and urethra. These organs make, store, and get rid of urinein the body. Your health care provider may use other names to describe the infection. An upper UTI affects the ureters and kidneys (pyelonephritis). A lower UTI affects the bladder (cystitis) and urethra (urethritis). What are the causes? Most urinary tract infections are caused by bacteria in your genital area, around the entrance to your urinary tract (urethra). These bacteria grow and cause inflammation of your urinary tract. What increases the risk? You are more likely to develop this condition if: You have a urinary catheter that stays in place (indwelling). You are not able to control when you urinate or have a bowel movement (you have incontinence). You are female and you: ?Use a spermicide or diaphragm for control. ?Have low estrogen levels. ?Are . You have certain genes that increase your risk (genetics). You are sexually active. You take antibiotic medicines. You have a condition that causes your flow of urine to slow down, such as: ?An enlarged prostate, if you are male. ?Blockage in your urethra (stricture). ?A kidney stone. ?A nerve condition that affects your bladder control (neurogenic bladder). ?Not getting enough to drink, or not urinating often. You have certain medical conditions, such as: ?Diabetes. ?A weak disease-fighting system (immunesystem). ?Sickle cell disease. ?Gout. ?Spinal cord injury. What are the signs or symptoms? Symptoms of this condition include: Needing to urinate right away (urgently). Frequent urination or passing small amounts of urine frequently. Pain or burning with urination. Blood in the urine. Urine that smells bad or unusual. Trouble urinating. Cloudy urine. Vaginal discharge, if you are female. Pain in the abdomen or the lower back. You may also have: Vomiting or a decreased appetite. Confusion. Irritability or tiredness. A fever. Diarrhea. The first symptom in older adults may be confusion. In some cases, they may not have any symptoms until the infection has worsened. How is this diagnosed? This condition is diagnosed based on your medical history and a physical exam. You may also have other tests, including: Urine tests. Blood tests. Tests for sexually transmitted infections (STIs). If you have had more than one UTI, a cystoscopy or imaging studies may be done to determine the cause of the infections. How is this treated? Treatment for this condition includes: Antibiotic medicine. Juse-xcw-oatqwux medicines to treat discomfort. Drinking enough water to stay hydrated. If you have frequent infections or have other conditions such as a kidney stone, you may need to see a health care provider who specializes in the urinary tract (urologist). In rare cases, urinary tract infections can cause sepsis. Sepsis is a life- threatening condition that occurs when the body responds to an infection. Sepsis is treated in the hospital with IV antibiotics, fluids, and other medicines. Follow these instructions at home: Medicines Take mnvc-moi-drzzjxw and prescription medicines only as told by your health care provider. If you were prescribed an antibiotic medicine, take it as told by your health care provider. Do notstop using the antibiotic even if you start to feel better. General instructions Make sure you: ?Empty your bladder often and completely. Do not hold urine for long periods of time. ?Empty your bladder after sex. ?Wipe from front to back after a bowel movement if you are female. Use each tissue one time when you wipe. Drink enough fluid to keep your urine pale yellow. Keep all follow-up visits as told by your health care provider. This is important. Contact a health care provider if: Your symptoms do not get better after 1 2 days. Your symptoms go away and then return. Get help right away if you have: Severe pain in your back or your lower abdomen. A fever. Nausea or vomiting. Summary A urinary tract infection (UTI) is an infection of any part of the urinary tract, which includes the kidneys, ureters, bladder, and urethra. Most urinary tract infections are caused by bacteria in your genital area, around the entrance to your urinary tract (urethra). Treatment for this condition often includes antibiotic medicines. If you were prescribed an antibiotic medicine, take it as told by your health care provider. Do notstop using the antibiotic even if you start to feel better. Keep all follow-up visits as told by your health care provider. This is important. This information is not intended to replace advice given to you by your health care provider. Make sure you discuss any questions you have with your health care provider. Document Released: 11/04/2005 Document Revised: 01/12/2019 Document Reviewed: 08/04/2018 [employer] Patient Education 2019 [employer]. Follow Up Care 12/30/2021 09:59:20 With:YECENIA FOLEY, Nicole Garcia, URL Address: [address] [place] [address]- When: Unknown [facility] 11-02-2022 Note [id number] 10-24-2021 Evaluation note* Encounter Date Diagnosis Assessment Notes Treatment Notes Treatment Clinical Notes Oct, Neuropathic pain (ICD-10 - M79.2) Patient is to continue with the above medications. Oct, Bariatric surgery status (ICD-10 - Z98.84) Blood work appears to be satisfactory upon review, we will fax results to Dr. Camacho. Oct, Vitamin D deficiency (ICD-10 - E55.9) Vitamin D level is WNL upon review of blood work results, I advised the patient to continue with the above medication. Oct, Hyperlipidemia (ICD-10 - E78.5) [employer] Other 09-06-2022 Evaluation note* Encounter Date Diagnosis Assessment Notes Treatment Notes Treatment Clinical Notes Oct, S/P bariatric surgery (ICD-10 - Z98.84) Oct, Dietary counseling and surveillance (ICD-10 - Z71.3) [employer] Other 09-02-2022 Evaluation note* Encounter Date Diagnosis Assessment Notes Treatment Notes Treatment Clinical Notes Oct, Vitamin D deficiency (ICD-10 - E55.9) Oct, Hyperlipidemia (ICD-10 - E78.5) Oct, Hyperglycemia (ICD-1 0 - R73.9) [employer] [facility] Other 08-09-2022 Hospital Discharge instructions Patient Education 09/16/2021 08:40:56 Urinary Tract Infection, Adult, Tzdx-bt-Utun Urinary Tract Infection, Adult A urinary tract infection (UTI) is an infection of any part of the urinary tract. The urinary tractincludes: The kidneys. The ureters. The bladder. The urethra. These organs make, store, and get rid of pee (urine) in the body. What are the causes? This is caused by germs (bacteria) in your genital area. These germs grow and cause swelling (inflammation) of your urinary tract. What increases the risk? You are more likely to develop this condition if: You have a small, thin tube (catheter) to drain pee. You cannot control when you pee or poop (incontinence). You are female, and: ?You use these methods to prevent : ?A medicine that kills sperm (spermicide). ?A device that blocks sperm (diaphragm). ?You have low levels of a female hormone (estrogen). ?You are . You have genes that add to your risk. You are sexually active. You take antibiotic medicines. You have trouble peeing because of: ?A prostate that is bigger than normal, if you are male. ?A blockage in the part of your body that drains pee from the bladder (urethra). ?A kidney stone. ?A nerve condition that affects your bladder (neurogenic bladder). ?Not getting enough to drink. ?Not peeing often enough. You have other conditions, such as: ?Diabetes. ?A weak disease-fighting system (immune system). ?Sickle cell disease. ?Gout. ?Injury of the spine. What are the signs or symptoms? Symptoms of this condition include: Needing to pee right away (urgently). Peeing often. Peeing small amounts often. Pain or burning when peeing. Blood in the pee. Pee that smells bad or not like normal. Trouble peeing. Pee that is cloudy. Fluid coming from the vagina, if you are female. Pain in the belly or lower back. Other symptoms include: Throwing up (vomiting). No urge to eat. Feeling mixed up (confused). Being tired and grouchy (irritable). A fever. Watery poop (diarrhea). How is this treated? This condition may be treated with: Antibiotic medicine. Other medicines. Drinking enough water. Follow these instructions at home: Medicines Take qpof-bga-qeseryb and prescription medicines only as told by your doctor. If you were prescribed an antibiotic medicine, take it as told by your doctor. Do not stop taking it even if you start to feel better. General instructions Make sure you: ?Pee until your bladder is empty. ?Do not hold pee for a long time. ?Empty your bladder after sex. ?Wipe from front to back after pooping if you are a female. Use each tissue one time when you wipe. Drink enough fluid to keep your pee pale yellow. Keep all follow-up visits as told by your doctor. This is important. Contact a doctor if: You do not get better after 1 2 days. Your symptoms go away and then come back. Get help right away if: You have very bad back pain. You have very bad pain in your lower belly. You have a fever. You are sick to your stomach (nauseous). You are throwing up. Summary A urinary tract infection (UTI) is an infection of any part of the urinary tract. This condition is caused by germs in your genital area. There are many risk factors for a UTI. These include having a small, thin tube to drain pee and notbeing able to control when you pee or poop. Treatment includes antibiotic medicines for germs. Drink enough fluid to keep your pee pale yellow. This information is not intended to replace advice given to you by your health care provider. Make sure you discuss any questions you have with your health care provider. Document Released: 07/13/2008 Document Revised: 01/12/2019 Document Reviewed: 08/04/2018 [employer] Patient Education 2020 [employer]. Follow Up Care 07/21/2021 15:16:53 With:Linden Villarreal MD, iMhir Broderick, URO Address: [facility] [address] [place] [address]- [phone] When: Unknown Comments:schedule Urodynamics [facility] 06-01-2022 Hospital Discharge instructions Patient Education 07/09/2021 13:33:39 Overactive Bladder, Adult Overactive Bladder, Adult Overactive bladder refers to a condition in which a person has a sudden need to pass urine. The person may leak urine if he or she cannot get to the bathroom fast enough (urinary incontinence). A person with this condition may also wake up several times in the night to go to the bathroom. Overactive bladder is associated with poor nerve signals between your bladder and your brain. Your bladder may get the signal to empty before it is full. You may also have very sensitive muscles thatmake your bladder squeeze too soon. These symptoms might interfere with daily work or social activities. What are the causes? This condition may be associated with or caused by: Urinary tract infection. Infection of nearby tissues, such as the prostate. Prostate enlargement. Surgery on the uterus or urethra. Bladder stones, inflammation, or tumors. Drinking too much caffeine or alcohol. Certain medicines, especially medicines that get rid of extra fluid in the body (diuretics). Muscle or nerve weakness, especially from: ?A spinal cord injury. ?Stroke. ?Multiple sclerosis. ?Parkinson's disease. Diabetes. Constipation. What increases the risk? You may be at greater risk for overactive bladder if you: Are an older adult. Smoke. Are going through menopause. Have prostate problems. Have a neurological disease, such as stroke, dementia, Parkinson's disease, or multiple sclerosis (MS). Eat or drink things that irritate the bladder. These include alcohol, spicy food, and caffeine. Are overweight or obese. What are the signs or symptoms? Symptoms of this condition include: Sudden, strong urge to urinate. Leaking urine. Urinating 8 or more times a day. Waking up to urinate 2 or more times a night. How is this diagnosed? Your health care provider may suspect overactive bladder based on your symptoms. He or she will diagnose this condition by: A physical exam and medical history. Blood or urine tests. You might need bladder or urine tests to help determine what is causing your overactive bladder. You might also need to see a health care provider who specializes in urinary tract problems (urologist). How is this treated? Treatment for overactive bladder depends on the cause of your condition and whether it is mild or severe. You can also make lifestyle changes at home. Options include: Bladder training. This may include: ?Learning to control the urge to urinate by following a schedule that directs you to urinate at regular intervals (timed voiding). ?Doing Kegel exercises to strengthen your pelvic floor muscles, which support your bladder. Toning these muscles can help you control urination, even if your bladder muscles are overactive. Special devices. This may include: ?Biofeedback, which uses sensors to help you become aware of your body's signals. ?Electrical stimulation, which uses electrodes placed inside the body (implanted) or outside the body. These electrodes send gentle pulses of electricity to strengthen the nerves or muscles that control the bladder. ?Women may use a plastic device that fits into the vagina and supports the bladder (pessary). Medicines. ?Antibiotics to treat bladder infection. ?Antispasmodics to stop the bladder from releasing urine at the wrong time. ?Tricyclic antidepressants to relax bladder muscles. ?Injections of botulinum toxin type A directly into the bladder tissue to relax bladder muscles. Lifestyle changes. This may include: ?Weight loss. Talk to your health care provider about weight loss methods that would work best for you. ?Diet changes. This may include reducing how much alcohol and caffeine you consume, or drinking fluids at different times of the day. ?Not smoking. Do not use any products that contain nicotine or tobacco, such as cigarettes and e-cigarettes. If you need help quitting, ask your health care provider. Surgery. ?A device may be implanted to help manage the nerve signals that control urination. ?An electrode may be implanted to stimulate electrical signals in the bladder. ?A procedure may be done to change the shape of the bladder. This is done only in very severe cases. Follow these instructions at home: Lifestyle Make any diet or lifestyle changes that are recommended by your health care provider. These may include: ?Drinking less fluid or drinking fluids at different times of the day. ?Cutting down on caffeine or alcohol. ?Doing Kegel exercises. ?Losing weight if needed. ?Eating a healthy and balanced diet to prevent constipation. This may include: ?Eating foods that are high in fiber, such as fresh fruits and vegetables, whole grains, and beans. ?Limiting foods that are high in fat and processed sugars, such as fried and sweet foods. General instructions Take cafu-llb-bsajgjm and prescription medicines only as told by your health care provider. If you were prescribed an antibiotic medicine, take it as told by your health care provider. Do notstop taking the antibiotic even if you start to feel better. Use any implants or pessary as told by your health care provider. If needed, wear pads to absorb urine leakage. Keep a journal or log to track how much and when you drink and when you feel the need to urinate. This will help your health care provider monitor your condition. Keep all follow-up visits as told by your health care provider. This is important. Contact a health care provider if: You have a fever. Your symptoms do not get better with treatment. Your pain and discomfort get worse. You have more frequent urges to urinate. Get help right away if: You are not able to control your bladder. Summary Overactive bladder refers to a condition in which a person has a sudden need to pass urine. Several conditions may lead to an overactive bladder. Treatment for overactive bladder depends on the cause and severity of your condition. Follow your health care provider's instructions about lifestyle changes, doing Kegel exercises, keeping a journal, and taking medicines. This information is not intended to replace advice given to you by your health care provider. Make sure you discuss any questions you have with your health care provider. Document Released: 11/21/2009 Document Revised: 05/18/2019 Document Reviewed: 02/10/2018 [employer] Patient Education 2020 [employer] Follow Up Care 03/20/2021 09:54:04 With:MARYJANE PEARSON, ANGELITA Meade, URL Address: [address] [place] [address] When: Unknown [facility] [employer] 06-01-2022 Evaluation + Plan note Diagnostic Tests Pending * Urine Culture 07/09/21 [facility] Evaluation note* Encounter Date Diagnosis Assessment Notes Treatment Notes Treatment Clinical Notes June, Supraventricular tachycardia (ICD-10 - I47.1) [employer] Other 04-04-2022 Evaluation note* Encounter Date Diagnosis Assessment Notes Treatment Notes Treatment Clinical Notes May, History of pulmonary embolus (PE) (ICD-10 - Z86.711) [employer] Other 03-03-2022 Evaluation note* Encounter Date Diagnosis Assessment Notes Treatment Notes Treatment Clinical Notes Apr, Neuropathic pain (ICD-10 - M79.2) [facility] Other 01-17-2022 Evaluation note* Encounter Date Diagnosis Assessment Notes Treatment Notes Treatment Clinical Notes 17 Bud, 2022 Neuropathic pain (ICD-10 - M79.2) [employer] Other 02-04-2021 NoteMR#: [id number] [facility] Pt. Name: Carrie Fletcher Admitted: 03/12/2020 Discharged: 03/13/2020 Date of : 1970 Physician: Rehan Brown M.D. DISCHARGE SUMMARY RESIDENT PHYSICIAN: Sammi Piedra M.D. PRIMARY DIAGNOSIS: Acute cholecystitis, status post robotic cholecystectomy. SECONDARY DIAGNOSES: History of pulmonary embolism on Eliquis, morbid obesity status post gastric bypass surgery, lymphedema. HOSPITAL COURSE: The patient is a 49-year-old female with a past medical history of pulmonary embolism on Eliquis, morbid obesity status post gastric bypass surgery, transferred from [facility] on 12/06/2019 for management of septic shock due to acute cholecystitis and UTI. The patient subsequently underwent percutaneous cholecystectomy tube placement. The patient was seen in clinic by Dr. Brwon and scheduled for elective cholecystectomy. The patient presented on 03/11/2020 for robotic cholecystectomy. The patient underwent robotic cholecystectomy on 03/11/2020. The patient tolerated the procedure well, was extubated in the OR, transferred to PACU in stable condition. Postoperative recovery was uneventful. The patient tolerated advancement of diet without abdominal pain, nausea, or vomiting. On the day of discharge, the patient was passing gas, pain was well controlled with oral medications, tolerating diet with no nausea or vomiting, was ambulating in the halls without difficulty. On postoperative #2, the patient was deemed stable for discharge to home. The patient was seen and examined on the date of discharge and this discharge summary is in conjunction with any daily progress notes from date of discharge. CONSULTS: None. DISCHARGE MEDICATIONS: All home medications restarted on discharge. ACTIVITY: Up as tolerated. DIET: Regular diet, low fat. The patient instructed to eat low fat diet. FOLLOWUP APPOINTMENTS: The patient instructed to call the clinic to schedule a followup appointment with me in 2 weeks. Reviewed By: Sammi Piedra MD 03/14/2020 04:54 P Electronically Signed by: Rehan Brown M.D. 03/15/2020 05:38 A Rehan Brown M.D. I personally saw this patient on the day of the encounter, performed the chowdary portion(s) of the service and participated in the management and confirm the resident's documentation. Please note there may be an additional personal documentation from me. Date Dict: 03/13/2020/06:17 P/Sammi Piedra MD Date Trans: 03/14/2020 09:42 A/adi [id number] cc: Lon Ibrahim M.D. [facility] [address] [facility] [address] History general Narrative - Reported* Type Description Date Medical History mammogram at age 34 Medical History Fractured left arm Medical History Fracture of foot Medical History Fracture of foot Medical History EGD Medical History 08/2016 Mammogram Medical History osteoarthritis Medical History spinal stenosis Medical History lymphadema Medical History sepsis Medical History obesity Medical History diverticulitis Medical History gastric bipass 06/2017 Medical History Pulmonary embolism 08/2018 Medical History Lexiscan 02/29/20 Normal Surgical History Jaw Surgical History tonsillectomy and adenoidectomy Surgical History gastric bipass 06/2017 Surgical History cervical fusion 08/2018 Surgical History lipectomy w/ Dr. Smallwood Surgical History Cholecystecomy 03/2019 [facility] Other 07-01-2017 History general Narrative - Reported* Type Description Date Medical History mammogram at age 34 Medical History Fractured left arm Medical History Fracture of foot Medical History Fracture of foot Medical History EGD Medical History 08/2016 Mammogram Medical History osteoarthritis Medical History spinal stenosis Medical History lymphadema Medical History sepsis Medical History obesity Medical History diverticulitis Medical History gastric bipass 06/2017 Medical History Pulmonary embolism 08/2018 Medical History Lexiscan 02/29/20 Normal Surgical History Jaw Surgical History tonsillectomy and adenoidectomy Surgical History gastric bipass 06/2017 Surgical History cervical fusion 08/2018 Surgical History lipectomy w/ Dr. Smallwood Surgical History Cholecystecomy 03/2019 Hospitalization History See Above [employer] Other Evaluation + Plan note No data available for this section [facility] evaluation + Plan note Future Appointments Appointment Date:05/26/2022 09:15:00 AM Scheduled Provider:Nicole KEENE MD Location: Appointment Type:URO Office Visit [facility] Evaluation + Plan note Future Appointments Appointment Date:05/26/2022 09:15:00 AM Scheduled Provider:Nicole KEENE MD Location: Appointment Type:URO Office Visit Diagnostic Tests Pending * [facility]rine [facility] InformationNort [email or web address] Other evaluation noteNo assessment information available [facility] Work Phone: [email or web address] note* Diagnosis Cervical myelopathy (HCC) Cervical spondylosis with myelopathy documented in this encounter [employer] Work Phone: [email or web address] note* Diagnosis S/P cervical spinal fusion- Primary Arthrodesis status 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) [facility] Diagnosis Spinal stenosis, cervical region documented in this encounter [employer] Phone: evaluation note* Diagnosis Cervical disc disorder with radiculopathy- Primary Brachial neuritis or radiculitis nos Right arm weakness Other musculoskeletal symptoms referable to limbs [facility]* Diagnosis Spinal stenosis in cervical region- Primary Arm weakness Other musculoskeletal symptoms referable to limbs [facility]* Diagnosis Spinal stenosis of lumbar region, unspecified whether neurogenic claudication present- Primary Spinal stenosis in cervical region Arm weakness Other musculoskeletal symptoms referable to limbs [facility]* Diagnosis Spinal stenosis of lumbar region, unspecified whether neurogenic claudication present [facility]* Diagnosis Spinal stenosis, lumbar region with neurogenic claudication- Primary Spinal stenosis of lumbar region with neurogenic claudication Spinal stenosis, lumbar region, with neurogenic claudication [facility]* Diagnosis Spinal stenosis of lumbar region, unspecified whether neurogenic claudication present [facility]* Diagnosis Spinal stenosis, lumbar region with neurogenic claudication- Primary [facility]* Diagnosis Spinal stenosis, lumbar region with neurogenic claudication [facility]* Diagnosis Abnormal finding of diagnostic imaging- Primary Other nonspecific (abnormal) findings on radiological and other examinations of body structure [facility]* Diagnosis Abnormal finding of diagnostic imaging- Primary Other nonspecific (abnormal) findings on radiological and other examinations of body structure [facility]* Diagnosis Other hydronephrosis- Primary Bladder mass Other specified disorders of bladder [facility]* Diagnosis Abnormal finding of diagnostic imaging Other nonspecific (abnormal) findings on radiological and other examinations of body structure Hydronephrosis, unspecified hydronephrosis type [facility]* Diagnosis Bilateral hydronephrosis- Primary Hydronephrosis Bladder mass Other specified disorders of bladder Hydronephrosis, unspecified hydronephrosis type Mild protein-calorie malnutrition (HCC) Malnutrition of mild degree Morbid (severe) obesity due to excess calories (HCC) [facility]* Diagnosis 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 of unspecified nature of bladder documented in this encounter [facility] Discharge instructions No data available for this section [facility] No data available for this section [facility] [place] reason for referral (narrative)* Outpatient Procedure (Routine) - Pending Review Specialty Diagnoses / Procedures Referred By Sima paulino Referred To Contact [facility] Diagnoses Cervical disc disorder with radiculopathy Right arm weakness Procedures EMG(NEURO/NI) NERVE CONDUCTION STUDIES 9-10 STUDIES Bryce Lara APRN.[employer] [address] [place] [address] [facility] [address] [place] [id number] Referral ID Status Reason Start Date Expiration Date Visits Requested Visits Authorized [id number] Pending Review Auto-Generat ed Referral 07/22/2022 07/23/[address] [facility] for referral (narrative)* Diagnostic Procedure Only (Routine) - Closed Specialty Diagnoses / Procedures Referred By Contac t Referred To Contact XR IMAGING Diagnoses Spinal stenosis of lumbar region, unspecified whether neurogenic claudication present Procedures XR SCOLIOSIS PA STAND/LAT 2V RADEX ENTIR THRC LMBR CRV SAC SPI W/SKULL 2/3 VW Moises Willis MD [address] [place] [address] Xr Imaging Referral ID Status Reason Start Date Expiration Date V isits Requested Visits Authorized [id number] Closed Auto-Generate d Referral 09/21/2022 10/21/2023 1 1 * MRI/CT (Routine) - Authorized Specialty Diagnoses / Procedures Referred By Contac t Referred To Contact MR IMAGING Diagnoses Spinal stenosis of lumbar region, unspecified whether neurogenic claudication present Procedures MRI LUMBAR SPINE WO IVCON MRI SPINAL CANAL LUMBAR W/O CONTRAST MATERIAL Moises Willis MD [address] [facility] [address] Mr Imaging Referral ID Status Reason Start Date Expiration Date Visits Requested Visits Authorized [id number] Authorized Auto-Generat ed Referral 09/21/2022 10/21/2023 1 1 * MRI/CT (Routine) - Authorized Specialty Diagnoses / Procedures Referred By Contac t Referred To Contact MR IMAGING Diagnoses Spinal stenosis of lumbar region, unspecified whether neurogenic claudication present Procedures MRI THORACIC SPINE WO IVCON MRI SPINAL CANAL THORACIC W/O CONTRAST MATRL Moises Willis MD [address] [place] [address] Mr Imaging Referral ID Status Reason Start Date Expiration Date Visits Requested Visits Authorized [id number] Authorized Auto-Generat ed Referral 09/21/2022 10/21/[address] [facility] for referral (narrative)* Diagnostic Procedure Only (Routine) - Closed Specialty Diagnoses / Procedures Referred By Contac t Referred To Contact XR IMAGING Diagnoses Spinal stenosis of lumbar region, unspecified whether neurogenic claudication present Procedures XR SCOLIOSIS PA STAND/LAT 2V RADEX ENTIR THRC LMBR CRV SAC SPI W/SKULL 2/3 VW Moises Willis MD [address] [place] [id number] Xr Imaging Referral ID Status Reason Start Date Expiration Date V isits Requested Visits Authorized [id number] Closed Auto-Generate d Referral 09/21/2022 10/21/2023 1 1 [facility] for referral (narrative)* Diagnostic Procedure Only (Routine) - Closed Specialty Diagnoses / Procedures Referred By Contac t Referred To Contact XR IMAGING Diagnoses Spinal stenosis, lumbar region with neurogenic claudication Procedures XR LUMBAR MOTION 4V AP/LAT/ FLEX/EXT RADEX SPINE LUMBOSACRAL MINIMUM 4 VIEWS Champ Patel PA-C [address] [place] [address] Xr Imaging [facility] Referral ID Status Reason Start Date Expiration Date V isits Requested Visits Authorized [id number] Closed Auto-Generate d Referral 11/27/2022 12/27/2023 1 1 [facility] for referral (narrative)* Diagnostic Procedure Only (Routine) - Closed Specialty Diagnoses / Procedures Referred By Contac t Referred To Contact US IMAGING Diagnoses Abnormal finding of diagnostic imaging Hydronephrosis, unspecified hydronephrosis type Procedures US KIDNEY/BLADDER US RETROPERITONEAL REAL TIME W/IMAGE Janina Bourgeois APRN.DR[employer] [address] [place] [id number] Us Imaging [facility] Referral ID Status Reason Start Date Expiration Date V isits Requested Visits Authorized [id number] Closed Auto-Generate d Referral 03/25/2023 04/23/[address] [facility] for visit Narrative* Diagnostic Procedure Only (Routine) - Closed Specialty Diagnoses / Procedures Referred By Contac t Referred To Contact XR IMAGING Diagnoses Spinal stenosis of lumbar region, unspecified whether neurogenic claudication present Procedures XR SCOLIOSIS PA STAND/LAT 2V RADEX ENTIR THRC LMBR CRV SAC SPI W/SKULL 2/3 VW Moises Willis MD [address] [place] [address] Xr Imaging Referral ID Status Reason Start Date Expiration Date V isits Requested Visits Authorized [id number] Closed Auto-Generate d Referral 09/21/2022 10/21/[address] [facility] for visit Narrative* Diagnostic Procedure Only (Routine) - Closed Specialty Diagnoses / Procedures Referred By Contac t Referred To Contact US IMAGING Diagnoses Abnormal finding of diagnostic imaging Hydronephrosis, unspecified hydronephrosis type Procedures US KIDNEY/BLADDER US RETROPERITONEAL REAL TIME W/IMAGE COMPLETE Janina Hadley, SHASHA [address] [place] [address] [place] [address] Referral ID Status Reason Start Date Expiration Date V isits Requested Visits Authorized [id number] Closed Auto-Generate d Referral 03/25/2023 04/23/2024 1 1 [facility] Summary Purpose Family History No Family History Records Found Relationship Condition Age at Onset Recorded Date/T steven Not Specified Presence of cardiac pacemaker Unknown Hypertension Unknown Hyperlipidemia Unknown father Malignant neoplasm of liver Unknown brother Hyperlipidemia Unknown Advance Directives No Advanced Directives Records FoundDocuments on File Type Date Recorded Patient Roll On Worker Expl anation Advance Directives and Living Will Power of Psychic Reader Latest Code Status on File Code Status Date Activated Date Inactivated Comments Full Code 09/03/2018 3:56 AM 09/07/2018 2:02 AM Full Code 09/03/2018 3:56 AM 09/03/2018 3:56 AM Full Code 08/30/2018 10:15 PM 08/31/2018 8:47 PM Full Code 08/30/2018 10:07 PM 08/30/2018 10:15 PM Full Code 06/21/2017 2:09 PM 06/25/2017 12:45 AM Advance Directive Response Recorded Date/ Time Advance Directives No October 9:10am Latest Code Status on File Code Status Date Activated Date Inactivated Comments Full Code 09/03/2018 3:56 AM 09/07/2018 2:02 AM Code Status History Code Status Date Activated Date Inactivated Comments Full Code 09/03/2018 3:56 AM 09/03/2018 3:56 AM Full Code 08/30/2018 10:15 PM 08/31/2018 8:47 PM Full Code 08/30/2018 10:07 PM 08/30/2018 10:15 PM Full Code 06/21/2017 2:09 PM 06/25/2017 12:45 AM Advance Directive Response Recorded Date/ Time Advance Directives No October 8:10am Assessments Diagnosis S/P cervical spinal fusion Arthrodesis status 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) Chief Complaint and Reason for Visit Chief Complaint E55.9 E78.5 R73.9 Chief Complaint n31.9 e78.5 i47.1 z8 6.711 z98.84 Reason for Referral Specialty Diagnoses / Procedures Referred By Sima paulino Referred To Contact CT IMAGING Diagnoses Hydronephrosis, unspecified hydronephrosis type Procedures CT UROGRAM WO/W IVCON CT ABD & PELVIS W/WO CONTRST 1+ BODY Apurva Stauffer MD [address] [place] [address] [place] [address] Referral ID Status Reason Start Date Expiration Date Visits Requested Visits Authorized [id number] Pending Review Auto-Generat ed Referral 04/19/2023 05/18/2024 1 1 Specialty Diagnoses / Procedures Referred By Sima paulino Referred To Contact Urology Diagnoses Other hydronephrosis Bladder mass Procedures CONSULT TO UROLOGY OFFICE/OUTPATIENT NEW HIGH MDM 60 MINUTES Janina Hadley, LEATHA.DRIVER [employer] [address] [place] [address] Referral ID Status Reason Start Date Expiration Date Visits Requested Visits Authorized [id number] Authorized PCP Requested Referral 04/15/2023 04/14/2024 1 1 Specialty Diagnoses / Procedures Referred By Contac t Referred To Contact MR IMAGING Diagnoses Spinal stenosis of lumbar region, unspecified whether neurogenic claudication present Procedures MRI LUMBAR SPINE WO IVCON MRI SPINAL CANAL LUMBAR W/O CONTRAST MATERIAL Moises Willis MD [address] [address] [facility] [place] [phone] Mr Imaging [facility] Referral ID Status Reason Start Date Expiration Date V isits Requested Visits Authorized [id number] Closed Auto-Generate d Referral 09/21/2022 10/21/2023 1 1 Specialty Diagnoses / Procedures Referred By Contac t Referred To Contact MR IMAGING Diagnoses Spinal stenosis of lumbar region, unspecified whether neurogenic claudication present Procedures MRI THORACIC SPINE WO IVCON MRI SPINAL CANAL THORACIC W/O CONTRAST MATRL Moises Willis MD [address] [place] [phone] Mr Imaging [facility] Referral ID Status Reason Start Date Expiration Date V isits Requested Visits Authorized [id number] Closed Auto-Generate d Referral 09/21/2022 10/21/2023 1 1 Specialty Diagnoses / Procedures Referred By Contac t Referred To Contact CT IMAGING Diagnoses Spinal stenosis of lumbar region with neurogenic claudication Procedures CT LUMBAR SPINE WO IVCON CT LUMBAR SPINE W/O CONTRAST MATERIAL Champ Patel PA-C [address] [facility] [place] [phone] Imaging [facility] Referral ID Status Reason Start Date Expiration Date Visits Requested Visits Authorized [id number] Pending Review Auto-Generat ed Referral 3 12/27/2023 1 1 Specialty Diagnoses / Procedures Referred By Contac t Referred To Contact XR IMAGING Diagnoses Spinal stenosis, lumbar region with neurogenic claudication Procedures XR LUMBAR MOTION 4V AP/LAT/ FLEX/EXT RADEX SPINE LUMBOSACRAL MINIMUM 4 VIEWS Champ Patel PA-C [address] [place] [address] Xr Imaging [facility] Referral ID Status Reason Start Date Expiration Date Visits Requested Visits Authorized [id number] Pending Review Auto-Generat ed Referral 3 12/27/2023 1 1 Specialty Diagnoses / Procedures Referred By Contac t Referred To Contact Diagnoses Spinal stenosis in cervical region Arm weakness Procedures CONSULT TO SPINE SURGERY OFFICE/OUTPATIENT NEW HIGH MDM 60-74 MINUTES Bryce Laar APRN.[facility] [address] [phone] Referral ID Status Reason Start Date Expiration Date Visits Requested Visits Authorized [id number] Authorized PCP Requested Referral 07/29/2022 07/29/2023 1 1 Specialty Diagnoses / Procedures Referred By Contac t Referred To Contact Radiology Diagnoses Spinal stenosis, cervical region Procedures CT CERVICAL SPINE WO CONTRAST Bryce Lara APRN - [facility] [address] [facility] [place] [address] Referral ID Status Reason Start Date Expiration Date Visits Re quested Visits Authorized [id number] Open 07/13/2022 07/13/2023 1 1 Specialty Diagnoses / Procedures Referred By Contac t Referred To Contact Radiology Diagnoses Cervical myelopathy (HCC) Procedures MRI CERVICAL SPINE WO CONTRAST Lon Antonio, [address] [place] [address] Referral ID Status Reason Start Date Expiration Date Visits Re quested Visits Authorized [id number] Closed 05/04/2022 05/04/2023 1 1 Reason consult and treat Diagnosis 1 Spinal stenosis of l umbar region with neurogenic claudication (M48.062) Referral Organization [facility] Family [facility] Referring Provider First Name Lon Referring Provider Last Name Evelia Referring Provider Specialty Family Prac cleo Referred Organization [facility] Ne urosurgery Referred Provider Caprice Eubanks Referred Address [address],[phone] Referred Provider Specialty Neurological Surgery Referral Priority Routine General Notes Melody Flynn 03/11 03:11:34 PM > This evaluation is requested to assist with determining if patient is able to drive with modifications. H/o c-spine fusion in 2019, will hard fax old notes from neurosurgeon seperately , files are too large to attach. No recent MRI- see our notes also about her recent PT etc. Melody Flynn 03/26/2022 03:19:40 PM > Melody Flynn 03/26/2022 03:19:42 PM >sent p2p Additional Source Comments INFORMATION SOURCE (unrecogn ized section and content) DATE CREATED AUTHOR 07/17/2018 [facility] DATE CREATED AUTHOR AUTHOR'S ORGANIZ ATION 12/30/2018 [facility] DATE CREATED AUTHOR AUTHOR'S ORGANIZ ATION 12/31/2018 [facility] DATE CREATED AUTHOR AUTHOR'S ORGANIZ ATION 12/29/2020 [facility] DATE CREATED AUTHOR AUTHOR'S ORGANIZ ATION 04/10/2022 [facility] DATE CREATED AUTHOR AUTHOR'S ORGANIZ ATION 06/24/2022 [facility] DATE CREATED AUTHOR AUTHOR'S ORGANIZ ATION 07/20/2022 [facility] DATE CREATED AUTHOR AUTHOR'S ORGANIZ ATION 11/16/2022 [facility] DATE CREATED AUTHOR AUTHOR'S ORGANIZ ATION 03/19/2023 [facility] DATE CREATED AUTHOR AUTHOR'S ORGANIZ ATION 04/27/2023 [facility] REASON FOR VISIT (unrecogniz ed section and content) Specialty Diagnoses / Procedures Referred By Contac t Referred To Contact Radiology Diagnoses Cervical myelopathy (HCC) Procedures MRI CERVICAL SPINE WO CONTRAST Lon Antonio, [address] [place], [place] [id number] Referral ID Status Reason Start Date Expiration Date Visits Re quested Visits Authorized [id number] Closed 05/04/2022 05/04/2023 1 1 Specialty Diagnoses / Procedures Referred By Contac t Referred To Contact Radiology Diagnoses Spinal stenosis, cervical region M48.02 (ICD-10-CM) - Spinal stenosis, cervical region Procedures CT CERVICAL SPINE WO CONTRAST CHG CT CERVICAL SPINE W/O CONTRAST MATERIAL [address] - CHG CT CERVICAL SPINE W/O CONTRAST MATERIAL Lon Ibrahim, DO [address] [place] [address] Referral ID Status Reason Start Date Expiration Date V isits Requested Visits Authorized [id number] Pending Review 07/03/2022 07/13/2023 1 1 Reason Comments Scans Reason Comments MRI Report Reason Comments Patient Update Reason Comments New Patient Specialty Diagnoses / Procedures Referred By Contac t Referred To Contact Diagnoses Spinal stenosis in cervical region Arm weakness Procedures CONSULT TO SPINE SURGERY OFFICE/OUTPATIENT NEW HIGH MDM 60-74 MINUTES Bryce Lara APRN.DR[employer] [address] [place] [address] Referral ID Status Reason Start Date Expiration Date V isits Requested Visits Authorized [id number] Closed PCP Requested Referral 07/29/2022 07/29/2023 1 1 Reason Comments Established Patient Specialty Diagnoses / Procedures Referred By Contac t Referred To Contact MR IMAGING Diagnoses Spinal stenosis of lumbar region, unspecified whether neurogenic claudication present Procedures MRI THORACIC SPINE WO IVCON MRI SPINAL CANAL THORACIC W/O CONTRAST MATRL Moises Willis MD [address] [place] [address] [facility] [place] [address] Referral ID Status Reason Start Date Expiration Date V isits Requested Visits Authorized [id number] Closed Auto-Generate d Referral 09/21/2022 10/21/2023 1 1 Reason Comments Established Patient Follow Up Specialty Diagnoses / Procedures Referred By Contac t Referred To Contact Neurosurgery / SPINE SURGERY Diagnoses Spinal stenosis of lumbar region with neurogenic claudication Procedures EST NI PATIENT Moises Willis MD [address] [place] [address] Moises Willis MD [address] [place] [address] Referral ID Status Reason Start Date Expiration Date Visits Re quested Visits Authorized [id number] Closed 12/21/2022 02/07/2023 1 1 Reason Comments Radio Main J1 Specialty Diagnoses / Procedures Referred By Contac t Referred To Contact XR IMAGING Diagnoses Spinal stenosis, lumbar region with neurogenic claudication Procedures XR LUMBAR MOTION 4V AP/LAT/ FLEX/EXT RADEX SPINE LUMBOSACRAL MINIMUM 4 VIEWS Champ Patel PA-C [address] [place] [address] Xr Imaging [id number] Referral ID Status Reason Start Date Expiration Date V isits Requested Visits Authorized [id number] Closed Auto-Generate d Referral 11/27/2022 12/27/2023 1 1 Reason Comments Radiology Review Reason Comments Consult Specialty Diagnoses / Procedures Referred By Contac t Referred To Contact Urology Diagnoses Other hydronephrosis Bladder mass Procedures CONSULT TO UROLOGY OFFICE/OUTPATIENT [facility] [place] 60 MINUTES Janina Hadley, LEATHA.DRIVER [employer] [address] [place] [id number] Referral ID Status Reason Start Date Expiration Date V isits Requested Visits Authorized [id number] Closed PCP Requested Referral 04/15/2023 04/14/2024 1 1 Care Team (unrecognized sect ion and content) Team Status: Active Member Role Status Dates Lon Ibrahim DO Primary Care Provider Active Team Status: Inactive Member Role Status Dates Kelly Mcdowell APRN Attending Provider Active Team Status: Inactive Member Role Status Dates Lon Ibrahim DO Primary Care Provider, Attending Provi kenneth Active Bed Setter Relationship Specialty Start Date End Date Lon Ibrahim DO PCP - General Family Medicine 02/23/19 Bed Setter Relationship Specialty Start Date End Date Lon Ibrahim [address] [place] [phone] PCP - General Family Medicine 06/05/22 Ann Marie Mccord CNP [address] [place] [phone] Referring Family Medicine 06/19/22 Bed Setter Relationship Specialty Start Date End Date Lon Ibrahim DO PCP - General Family Medicine 02/23/19 Bed Setter Relationship Specialty Start Date End Date Lon Ibrahim [address] [place] [address] PCP - General Family Medicine 06/05/22 Ann Marie Mccord, [employer] [address] [id number] Referring Family Medicine 06/19/22 Bed Setter Relationship Specialty Start Date End Date Eevlia Lon Lechugaer [address] [place] [phone] PCP - General Family Medicine 06/05/22 Ann Marie Mccord CNP [address] [facility] [address] [place] [address] Referring Family Medicine 06/19/22 Bed Setter Relationship Specialty Start Date End Date Lon Ibrahim [address] [place] [address] PCP - General Family Medicine 06/05/22 Ann Marie Mccord CNP [address] [facility] [address] [place] [address] Referring Family Medicine 06/19/22 Bed Setter Relationship Specialty Start Date End Date LindaanaLon [address] [place] [phone] PCP - General Family Medicine 06/05/22 Ann Marie Mccord CNP [address] [place] [address] Referring Family Medicine 06/19/22 Bed Setter Relationship Specialty Start Date End Date Lon Ibrahim [address] [place] [phone] PCP - General Family Medicine 06/05/22 Ann Marie Mccord CNP [address] [place] [address] Referring Family Medicine 06/19/22 Bed Setter Relationship Specialty Start Date End Date Lon Ibrahim [address] [place] [address] PCP - General Family Medicine 06/05/22 Ann Marie Mccord CNP [address] [place] [address] Referring Family Medicine 06/19/22 Bed Setter Relationship Specialty Start Date End Date Lon Ibrahim [address] [place] [phone] PCP - General Family Medicine 06/05/22 Ann Marie Mccord CNP [address] [place] [address] Referring Family Medicine 06/19/22 Bed Setter Relationship Specialty Start Date End Date Evelia Lon Lechugaer [address] [place] [phone] PCP - General Family Medicine 06/05/22 Ann Marie Mccord CNP [address] [place] [address] Referring Family Medicine 06/19/22 Bed Setter Relationship Specialty Start Date End Date Lon Ibrahimer [address] [place] [phone] PCP - General Family Medicine 06/05/22 Ann Marie Mccord CNP [address] [place] [address] Referring Family Medicine 06/19/22 Bed Setter Relationship Specialty Start Date End Date Evelia Lon Bc [address] [place] [phone] PCP - General Family Medicine 06/05/22 Ann Marie Mccord CNP [address] [place] [address] Referring Family Medicine 06/19/22 Bed Setter Relationship Specialty Start Date End Date Lon Ibrahim [address] [place] [address] PCP - General Family Medicine 06/05/22 Ann Marie Mccord CNP [address] [place] [address] Referring Family Medicine 06/19/22 Bed Setter Relationship Specialty Start Date End Date Lon Ibrahim [address] [place] [address] PCP - General Family Medicine 06/05/22 Ann Marie Mccord CNP [address] [place] [address] Referring Family Medicine 06/19/22 Goals (unrecognized section and content) Goals may be documented in a n alternate section Source Comments (unrecognize d section and content) In the event this informatio n is protected by the Federal Confidentiality of Alcohol and Drug Abuse Patient Records regulations: The Federal rules restrict any use of the information to criminally investigate or prosecute any alcohol or drug abuse patient.[facility] the event this information is protected by the Federal Confidentiality of Alcohol and Drug Abuse Patient Records regulations: The Federal rules restrict any use of the information to criminally investigate or prosecute any alcohol or drug abuse patient.[facility] HospitalIn the event this information is protected by the Federal Confidentiality of Alcohol and Drug Abuse Patient Records regulations: The Federal rules restrict any use of the information to criminally investigate or prosecute any alcohol or drug abuse patient.[facility] the event this information is protected by the Federal Confidentiality of Alcohol and Drug Abuse Patient Records regulations: The Federal rules restrict any use of the information to criminally investigate or prosecute any alcohol or drug abuse patient.[facility] Hospital[facility] the event this information is protected by the Federal Confidentiality of Alcohol and Drug Abuse Patient Records regulations: The Federal rules restrict any use of the information to criminally investigate or prosecute any alcohol or drug abuse patient.[facility] Hospital[facility] the event this information is protected by the Federal Confidentiality of Alcohol and Drug Abuse Patient Records regulations: The Federal rules restrict any use of the information to criminally investigate or prosecute any alcohol or drug abuse patient.[facility] Hospital[facility] the event this information is protected by the Federal Confidentiality of Alcohol and Drug Abuse Patient Records regulations: The Federal rules restrict any use of the information to criminally investigate or prosecute any alcohol or drug abuse patient.[facility] HospitalIn the event this information is protected by the Federal Confidentiality of Alcohol and Drug Abuse Patient Records regulations: The Federal rules restrict any use of the information to criminally investigate or prosecute any alcohol or drug abuse patient.[facility] HospitalIn the event this information is protected by the Federal Confidentiality of Alcohol and Drug Abuse Patient Records regulations: The Federal rules restrict any use of the information to criminally investigate or prosecute any alcohol or drug abuse patient.[facility] Hospital[facility] the event this information is protected by the Federal Confidentiality of Alcohol and Drug Abuse Patient Records regulations: The Federal rules restrict any use of the information to criminally investigate or prosecute any alcohol or drug abuse patient.[facility] HospitalIn the event this information is protected by the Federal Confidentiality of Alcohol and Drug Abuse Patient Records regulations: The Federal rules restrict any use of the information to criminally investigate or prosecute any alcohol or drug abuse patient.[facility] HospitalIn the event this information is protected by the Federal Confidentiality of Alcohol and Drug Abuse Patient Records regulations: The Federal rules restrict any use of the information to criminally investigate or prosecute any alcohol or drug abuse patient.[facility] HospitalIn the event this information is protected by the Federal Confidentiality of Alcohol and Drug Abuse Patient Records regulations: The Federal rules restrict any use of the information to criminally investigate or prosecute any alcohol or drug abuse patient.[facility] HospitalIn the event this information is protected by the Federal Confidentiality of Alcohol and Drug Abuse Patient Records regulations: The Federal rules restrict any use of the information to criminally investigate or prosecute any alcohol or drug abuse patient.[facility] HospitalIn the event this information is protected by the Federal Confidentiality of Alcohol and Drug Abuse Patient Records regulations: The Federal rules restrict any use of the information to criminally investigate or prosecute any alcohol or drug abuse patient.[facility] HospitalIn the event this information is protected by the Federal Confidentiality of Alcohol and Drug Abuse Patient Records regulations: The Federal rules restrict any use of the information to criminally investigate or prosecute any alcohol or drug abuse patient.[facility] HospitalIn the event this information is protected by the Federal Confidentiality of Alcohol and Drug Abuse Patient Records regulations: The Federal rules restrict any use of the information to criminally investigate or prosecute any alcohol or drug abuse patient.[facility] HospitalIn the event this information is protected by the Federal Confidentiality of Alcohol and Drug Abuse Patient Records regulations: The Federal rules restrict any use of the information to criminally investigate or prosecute any alcohol or drug abuse patient.[facility] HospitalIn the event this information is protected by the Federal Confidentiality of Alcohol and Drug Abuse Patient Records regulations: The Federal rules restrict any use of the information to criminally investigate or prosecute any alcohol or drug abuse patient.[facility] FOR RECORDS PERTAINING TO PATIENTS WHO ARE OR HAVE BEEN ENROLLED IN A CHEMICAL DEPENDENCY/SUBSTANCEABUSE PROGRAM, SOME INFORMATION MAY BE OMITTED. This clinical summary was aggregated from multiple sources. Caution should be exercised in using it in the provision of clinical care. This summary normalizes information from multiple sources, and as a consequence, information in this document may materially change the coding, format and clinical context of patient data. In addition, data may be omitted in some cases. CLINICAL DECISIONS SHOULD BE BASED ON THE PRIMARY CLINICAL RECORDS. [facility] [employer] [facility]. provides no warranty or guarantee of the accuracy or completeness of information in this document.
--- NOTE | 2023-04-28 07:58 | CT_ITS ---
[address] [address] Patient Name: LUIS DANIEL SMITH MRN: [id number] date: 1970 Sex: F Assigned Patient Location: CT Current Patient Location: Accession/Order Number: [id number] Exam Date: 04/28/2023 08:05 Report Date: 04/29/2023 06:43 At the request of: NON-STAFF PHYSICIAN Procedure: CT abdomen pelvis wo/w con EXAMINATION: CT abdomen pelvis wo/w con HISTORY: Hydronephrosis N13.30 COMPARISON: No relevant comparison available. TECHNIQUE: Axial, Coronal, and Sagittal images were obtained without and/or with IV contrast as indicated by examination type. Dose reduction techniques were achieved by using automated exposure control and/or adjustment of mA and/or kV according to patient size and/or use of iterative reconstruction technique. FINDINGS: LUNG BASES: No visible pulmonary or pleural disease. LIVER: No enlargement, atrophy, suspicious density, or significant focal lesion. BILIARY: Cholecystectomy. PANCREAS: No lesion, fluid collection, or abnormal duct dilatation. SPLEEN: No enlargement or focal lesion. ADRENALS: No mass or enlargement. KIDNEYS: Marked hydronephrosis bilaterally without perinephric edema. Marked dilation of the ureters bilaterally, up to 1.8 cm in diameter on the right. No appreciable renal or ureteral mass or stones. BOWEL/MESENTERY: No visible mass, obstruction, or bowel wall thickening. AORTA/VASCULAR: No aneurysm or dissection. RETROPERITONEUM: No mass or adenopathy. LYMPH NODES: No adenopathy. URINARY BLADDER: Markedly irregular, circumferential bladder wall thickening up to 1.5 cm. PELVIC ORGANS: No visible mass. Pelvic organs appropriate for patient age. ABDOMINAL WALL: No mass or hernia. BONES: No bony lesion or fracture. L5-S1 marked degenerative disc disease. Multilevel moderate degenerative changes. OTHER: Negative. CT/CT abdomen pelvis wo/w con IMPRESSION: 1. Chronic marked hydronephrosis and hydroureter bilaterally secondary to irregular urinary bladder wall thickening most suggestive of neoplasm. 2. No appreciable lymphadenopathy or metastatic disease. 3. L5-S1 marked degenerative disc disease. Electronically authenticated by: JEFF ESQUIVEL Date: 04/29/2023 06:43
== END 2023-04-28 07:53 | disposition home or self-care (01) ==
LOC: CT 07:52
DX: N13.30 Unspecified hydronephrosis (principal)
CPT/HCPCS: 74178; Q9967

== ENCOUNTER 2023-05-07 14:24 | Emergency (ER) | payer MEDICARE, SELFPAY ==
[2023-05-07 14:30] VITALS: BP 132/95; PULSE 87; TEMP 36.7; O2SAT 93; BMI 44.9
--- OUTSIDE RECORDS SUMMARY | 2023-05-07 14:35 | XMS_ITS | CCD ---
Author Organization [facility] Care Team Providers Care Human Resources Office Assistant Name Role Phone AHATOM KAELYN Referring Unavailable HECTOR, RUGEN M Primary Care Unavailable Mccaskill, Rugen M Primary Care Provider AHAMMAD KAELYN Admitting Unavailable AHAMMAD, KAELYN Attending Unavailable HECTOR, RUGEN M Primary Care Unavailable GROUP, PSYCH COVERAGE Consulting Unavailabl e HECTOR, RUGEN M Primary Care Unavailable TIM KIM Consulting Unavailable YOLANDA, FIDEL Admitting Unavailable IONA VANG Attending Unavailable YOLANDA, FIDEL Consulting Unavailable ARLINE MOHJAILENE S Consulting Unavailable CYGNOR, JANINA M Referring Unavailable HECTOR, RUGEN M Primary Care Unavailable CYGNOR JANINA M Referring Unavailable HECTOR, RUGEN M Primary Care Unavailable NH Procedure Practitioner Unavailab LON Arceo Primary Care Unavailable UNKNOWN, PROVIDER Admitting Unavailable UNKNOWN, PROVIDER Surgeon Unavailable UNKNOWN, PROVIDER Attending Unavailable LON IBRAHIM Referring Unavailable LON IBRAHIM Primary Care Physician Lon Ibrahim Unavailable DO Lon Ibrahim Primary Care Provider DO Lon Ibrahim Attending Provider DR LON IBRAHIM Attending Unavailable ALEXANDRIA, DR FORREST Primary Care Unavailable DR LON IBRAHIM Admitting Unavailable Lon Ibrahim DO Primary Care Provider Unavailab Lon Arceo Primary Care Provider [phone] Ann Marie Mccord CNP Unavailable [phone] Nicole KEENE Attending Unavailable Nicole KEENE Attending Unavailable Nicole KEENE Attending Unavailable Nicole KEENE Attending Unavailable Nicole KEENE Referring Unavailable Nicole KEENE Attending Unavailable Mihir Cheatham Attending Unavailable Nicole KEENE Attending Unavailable Nicole KEENE Referring Unavailable Mihir Cheatham Attending Unavailable MARYJANE, ANGELITA Meade Attending Unavailable RICE, Nicole W Admitting Unavailable RICE, Nicole W Attending Unavailable RICE, Nicole W Referring Unavailable RICE, Nicole W Attending Unavailable RICE, Nicole W Admitting Unavailable MARYJANE, ANGELITA Meade Admitting Unavailable MARYJANE, ANGELITA Me[address] Attending Unavailable RICE, Nicole W Admitting Unavailable RICE, Nicole W Attending Unavailable Kuns DO, Lon R Primary Care Provider Unavailab le LON ANTONIO Referring Unavailab le KUNS, LON R Primary Care Unavailable BRYCE LARA Referring Unavailable KUNS, LON R Primary Care Unavailable ILSA PERALTA Attending Unavailable CAM CARVER Referring Unavailable Jeremias, Kelly Unavailable LEATHA Mcdowell Attending Provider Kuns, DO Lno Primary Care Provider Kuns, DO Lon Attending Provider Kuns, Lon Admitting Unavailable Kuns, Lon Primary Care Unavailable Kuns, Lon Attending Unavailable Kuns, Lon Admitting Unavailable Kuns, Lon Primary Care Unavailable Kuns, Lon Attending Unavailable NO FAMILY, PHYSICIAN Primary Care Unavailable Kelly Mcdowell L Admitting Unavailable Kelly Mcdowell L Attending Unavailable PELLMOISES Meade Attending Unavailable PELLE, MOISES Referring Unavailable KUNS, LON BC Primary Care Unavailable KATHERYN, APURVA Referring Unavailable KUNS, LON BC Primary Care Unavailable KUNS, LON BC Primary Care Unavailable BRYCE LARA Attending Unavailable LON ANTONIO Referring Unavailab le APURVA CAMPA Attending Unavailable KUNS, LON BC Primary Care Unavailable WORTHAMS, JANINA Referring Unavailable KUNS, LON BC Primary Care Unavailable WORTHAMS, JANINA Referring Unavailable KUNS, LON BC Primary Care Unavailable WORTHAMS, JANINA Referring Unavailable KUNS, LON BC Primary Care Unavailable KATHERYN, APURVA Referring Unavailable KATHERYN, APURVA Admitting Unavailable KATHERYN APURVA Attending Unavailable KUNS, LON BC Primary Care Unavailable WORTHAMS, JANINA Referring Unavailable KUNS, LON BC Primary Care Unavailable LARABRYCE Referring Unavailable PELLEMOISES Attending Unavailable PELLE, MOISES Referring Unavailable KUNS, LON BC Primary Care Unavailable PELLE, MOISES Referring Unavailable KUNS, LON BC Primary Care Unavailable CHAMP CARR Attending Unavailable LNO IBRAHIM Primary Care Unavailable CHAMP CARR Referring Unavailable LON IBRAHIM Primary Care Unavailable Allergies Allergy Classification Reported Allergen(s) Allergy Type Date of Onset Reaction(s) Facility (7 sources) Adhesive Tape; Translations: [Tape] Drug allergy Eruption (morphologic abnormality) [facility] (20 sources) Amoxicillin / Clavulanate Drug Allergy diarrhea, vomiting [place] Other (20 sources) oxyCODONE; Translations: [OXYCODONE] Drug Allergy 3 Unknown [facility] (3 sources) Adhesive Tape; Translations: [adhesive tape] Propensity to adverse reactions 1 itchy rash [facility] (20 sources) Amoxicillin / Clavulanate; Translations: [AMOXICILLIN-PO T CLAVULANATE] Drug Allergy 3 Diarrhea [facility] (20 sources) Adhesive Tape-Silicones; Translations: [ADHESIVE TAPE-SILICONES] Drug Allergy 9 Rash [facility] (1 source) ALLERGIES NOT ON FILE; Translations: [ALLERGIES NOT ON FILE] Propensity to adverse reactions (disorder) [facility] (1 source) Amoxicillin Drug Allergy 4 [facility] (1 source) Clavulanate Drug Allergy 4 [facility] (1 source) oxyCODONE Drug Allergy 4 [facility] Medications Current Medications Medication Drug Class(es) [...] Start: 03-21-2019 take 1 capsule by mo [facility] once daily Biotin Active 1 CAP PO Daily March 21, 2019 12:00am take 1 capsule by mo [facility] every twenty-four hours Biotin 5000 MCG 1 capsule Orally Once a day Active take 1 capsule by mo sch once daily Biotin 5000 MCG 1 capsule Orally Once a day Active Bisacodyl (8 sources) Stimulant Laxative Start: 11-16-2018 bisacodyl R efills(s) 0 Start Date: 11/16/18 Status: Ordered Start: 08-31-2018 take 1 tablet by [facility]ter once daily as needed for constipation bisacodyl [...] Active Start: 09-11-2021 take 1 capsule by [facility] once daily Keflex 250 mg Cap 250 mg = 1 cap(s), Oral, Daily, # 30 cap(s), Refills(s) 11, Pharmacy: [facility]/pharmacy #[id number], 187, helen, 07/09/21 13:05:00 EDT, Height/Length Dosing, 110, kg, 07/21/21 14:28:00 EDT, Weight Dosing Start Date: 09/11/21 Status: Ordered Start: 04-29-2021 take 1 capsule by [facility] once daily Keflex 250 mg Cap 250 mg = 1 cap(s), Oral, Daily, # 30 cap(s), Refills(s) 3, Pharmacy: [facility]/pharmacy #[id number], 187helen, 03/20/21 9:31:00 EST, Height/Length Dosing, 110, kg, 03/20/21 9:31:00 EST, Weight Dosing Start Date: 04/29/21 Status: Ordered cholecalciferol 0.125 mg oral tablet (20 sources) Vitamin D Start: 03-19-2020 take 1 tablet by mouth once daily Cholecalciferol (Vitamin D3) (Vitamin D3) 125 mcg (5,000 unit) Tablet Active 125 MCG PO Daily March 19, 2020 12:00am Start: 11-21-2019 take 1 capsule by mo [facility] every twenty-four hours Vitamin D (Cholecalciferol) 50 MCG (2000 UT) 1 capsule Orally Once a day 5000 IU OTC Nov, Active cholecalciferol (VITAMIN D3) 5,000 unit tab Vitamin D3 1000 IU daily 0 Active Comment on above: Vitamin D3 1000 IU daily ciprofloxacin 500 mg oral tablet (6 sources) Quinolone Antimicrobial Start: 05-04-19 End: 05-14-19 take 1 tablet by mouth twice daily ciprofloxacin HCl (CIPRO) 500 mg tablet Take 1 tablet by mouth two times a day for 10 days. 20 tablet 0 05/04/2023 05/14/2023 Active Start: 12-22-2021 take 1 tablet by walter twice daily Cipro 500 mg Tab 500 mg = 1 tab(s), Oral, BID, # 14 tab(s), Refills(s) 0, Pharmacy: [facility]/pharmacy #[id number], 187, cm, 12/22/21 15:10:00 EST, Height/Length Dosing, 110, kg, 12/22/21 15:10:00 EST, Weight Dosing Start Date: 12/22/21 Status: Ordered Start: 07-09-2021 take 1 tablet by walter once daily Cipro 500 mg Tab 500 mg = 1 tab(s), Oral, As Directed, Take 1 tablet day before procedure, then 1 tablet day of procedure after procedure., # 2 tab(s), Refills(s) 0, Pharmacy: [facility]/pharmacy #[id number], 187, cm, 07/09/21 13:05:00 EDT, Height/Length Dosing, 110, kg, 07/09/21... Start Date: 07/09/21 Status: Ordered Comment on above: Take 1 tablet by walter two times a day for 10 days. Compression stockings, 20-30mmHg, calf 20-30mmHg (20 sources) Start: 06-11-2017 Compression stockings, 20-30mmHg, calf 20-30mmHg as directed externally daily [...] take 1 capsule by mouth once daily [place]-3 Fatty Acids (FISH OIL) 1000 MG CAPS Take 1,000 mg by mouth daily LAST DOSE 08/16/2018 0 Active [place] 9-Lao-Jhc-Fish Oil (2 sources) Start: 03-21-19 20 take 1000 mg by mouth once daily [place] 3-Zrv-Src-Fish Oil Active 1000 MG PO Daily March 21, 2019 12:00am Start: 03-21-2019 take 1000 mg by mout h once daily [place] 8-Tek-Bid-Fish Oil Active 1000 MG PO Daily March [...] TAB PO Daily March 21, 2019 1:00am [place] 3 1000 MG (20 sources) take 1 capsule by mouth once daily [place] 3 1000 MG 1 capsule Orally Once a day for 90 days Active [place]-3 (6 sources) Start: 019 [place]-3 Refill(s) 0 Start Date: 11/16/18 Status: Ordered omega-3 acid ethyl esters ([facility]) 1000 mg oral capsule (2 sources) take 1 capsule by mouth once daily [place]-3 Fatty Acids (FISH OIL) 1000 MG CAPS [...] for Pain. 0 Active polyethylene glycol 3350 [id number] mg powder for oral solution (2 sources) Osmotic Laxative take 17 g by mouth once daily as needed polyethylene glycol (GLYCOLAX) powder Take 17 g by mouth daily as needed 0 Active sennosides, [facility] 8.6 mg oral tablet (2 sources) take [...] chloride 9 mg/ml injection (1 source) Start: End: 024 0.9 % sodium chloride (NACL 0.9%) infusion [...] 2019 1:00am Vitamin D (Cholecalciferol) 50 MCG (1999 UT) (20 sources) Start: 11-21-2019 take 1 [...] every four to six hours Hydrocodone-Acetam inophen ([place]) 5-325 mg tablet Discontinued 1 TAB PO EVERY 4-6 HOURS 7 7 August 30, 2019 March 19, 2020 [...] Start: 11-16-2018 take 1 capsule by mo [facility] in the morning gabapentin (NEURONTIN) 300 mg capsule TAKE 1 CAPSULE BY MOUTH IN THE MORNING AND IN THE AFTERNOON 0 04/05/2022 Active Start: 04-19-2018 take 400 mg by mouth once daily at bedtime Gabapentin Active 400 MG PO Daily at bedtime March 21, 2019 12:00am take 2 capsules by [facility] twice daily gabapentin (NEURONTIN) 100 MG capsule Take 200 mg by mouth 2 times daily. Give 2 capsules BID for neuropathy 0 Active Comment on above: Take 600 mg by mouth daily at bedtime. TAKE 1 CAPSULE BY [facility] IN THE MORNING AND IN THE AFTERNOON [...] mL multivit-minerals/folic acid (ONE-A-DAY WOMEN VITACRAVES ORAL) (20 sources) multivit-mineral s/folic acid (ONE-A-DAY WOMEN VITACRAVES [...] 8:17am omega-3 fatty acids 1,000 mg cap (20 sources) omega-3 fatty ac ids 1,000 mg cap Take by mouth q 24 HR. 0 Active Comment on above: Take by mouth q 24 H R. sennosides (SENOKOT ORAL) (20 sources) sennosides (SENO NANI ORAL) Take by [...] Start: 01-21-2022 take 1 tablet by walter th twice daily Vesicare 5 mg Tab 5 mg = 1 tab(s), Oral, BID, # 60 tab(s), Refills(s) 5, Pharmacy: [facility] #[id number], 187, cm, 12/30/21 9:14:00 EST, Height/Length Dosing, 110, kg, 12/30/21 9:14:00 EST, Weight Dosing Start Date: 01/21/22 Status: Ordered take 2 tablets by mo [facility] in the morning, then take 1 tablet by mouth twice daily in the evening Solifenacin Succinate 5 MG 2 tablets in the AM, 1 tablet in the PM Orally twice a day as directed Active take 1 tablet by walter th every twenty-four hours VESIcare 5 MG 1 [...] 66 mg iron- 1,000 mcg tab tablet (20 sources) Start: 11-16-2018 viatmin b comp michael [...] Neoplasms of unspecified nature or uncertain behavior (4 sources) Neoplasm of bladder; Translations: [Neoplasm of unspecified behavior of bladder] Onset: 4 04-20-2023 Episodic Nutritional deficiencies (20 sources) Vitamin D deficiency; Translations: [Vitamin D deficiency, unspecified] Onset: 2 Resolved: 2 Chronic Other aftercare (2 sources) Long-term current use of anticoagulant; Translations: [prison (current) use of anticoagulants] Onset: 2 Episodic [...] nutritional; endocrine; and metabolic disorders (20 sources) Body mass index 40+ - severely obese; Translations: [Body mass index (BMI) 45.0-49.9, adult] Onset: 7 Resolved: 9 03-08-2018 Chronic Other nutritional; endocrine; and metabolic disorders (1 source) Body mass index (BMI) 45.0-49.9, adult Chronic Other nutritional; endocrine; and metabolic disorders (1 source) Morbid (severe) obesity due to excess calories Chronic Other nutritional; endocrine; and metabolic disorders (6 sources) Obesity caused by energy imbalance; Translations: [...] Results Test Name Value Interpretation Reference Range Facility [facility] 05-04-2023 NATALIA Telephone (LOPROV) CARRIE FLETCHER ([id number]) 1970 F Date Time Provider Department 05/04/23 APURVA CAMPA During your visit today, we recorded the following information about you: Apurva Campa MD 05/04/2023 12:48 PM Signed Patient has cystoscopy under local at [facility] today. Schedule follow-up office visit with nurse practitioner in 1 month. Plan to remove catheter at the office visit at the office visit. Kinjal GRIFFITH Angelique 05/04/2023 4:03 PM Signed Called and spoke with patient. Patient is scheduled ov in 1 month with Vi Fernandes CNP on 06/04/23 Allergies As of Date: 05/04/2023 Noted Allergy Reaction AMOXICILLIN-POT CLAVULANATE 06/29/2022 6 - Diarrhea OXYCODONE 06/29/2022 16 - Unknown ADHESIVE TAPE-SILICONES 11/08/2018 2 - Rash Date Reviewed: 05/04/2023 Reviewed by: Shelbie Betancourt RN - Fully Assessed Order(s):Order #: [id number] Prescriptions as of 05/04/2023 - ciprofloxacin HCl (CIPRO) 500 mg tablet Take 1 tablet by mouth two times a day for 10 days. - gabapentin (NEURONTIN) 600 mg tablet Take [...] by mouth. Problem List As Of Date 05/04/2023 Noted Resolved Mild protein-calorie malnutrition (HCC) [E44.1] 04/19/2023 Morbid (severe) obesity due to excess calories *04/19/2023 Obesity, Class III, BMI >= 40 [E66.01] 05/04/2023 Bladder tumor [D49.4] 05/04/2023 Prescriptions ordered this encounter Disp Refills Start End CIPROFLOXACIN 500 MG TABLET 20 t* 0 05/04/2023 05/14/2023 Class: Print RX Route: ORAL Sig: Take 1 tablet by mouth two times a day for 10 days. Encounter Status:Closed by APURVA CAMPA on 05/04/23 [facility] Telephone (UROMAYDAN) CARRIE FLETCHER ([id number]) 1970 F Date Time Provider Department 05/04/23 APURVA CAMPA During your visit today, we recorded the following information about you: Apurva Campa MD 05/04/2023 2:32 PM Signed Please get me the report of CT scan of the patient that was done at [facility] APURVA CAMPA M.D. Barbara Marie MA 05/05/2023 10:38 AM Signed I left a detailed voicemail and mychart message in regards to message below. If patient were to call back, please read over messages to patient. Thank you Barbara Marie MA 05/05/2023 1:50 PM Signed Received fax of results. Placed in Dr. Campa's box for further review. Hoda Costello 05/05/2023 1:52 PM Signed Patient returning call. She states she spoke with [facility] and they indicate they will upload the imaging today. It may take 24-48 hours to appear in her chart. Care everywhere utilized to pull report and imaging date. Please call to advise when everything has been received. Hoda Pravin [facility] (Patient Operations Support Team) Please note: Please do not re-route encounters back to this agent, please send to appropriate office pool. Agent works in operations center and cannot complete patient specific tasks. Barbara Marie MA 05/05/2023 2:04 PM Signed Tried to call patient, OVM to return call or send [employer] message back. On Voicemail I explained that we would need actual images as care everywhere only shows reports. No imaging is accessed. If she is able to have qasim transfer her scans to CD and either the CD is mailed to our office, or she brings them to the office to get uploaded on [facility] end that would work. The reports from the scans were received by fax and given to Dr. Campa for review. If she calls back please advise her of the message below. Allergies As of Date: 05/04/2023 Noted Allergy Reaction AMOXICILLIN-POT CLAVULANATE 06/29/2022 6 - Diarrhea OXYCODONE 06/29/2022 16 - Unknown ADHESIVE TAPE-SILICONES 11/08/2018 2 - Rash Date Reviewed: 05/04/2023 Reviewed by: Shelbie Betancourt, EVE - Fully Assessed Reason for Visit: Results [95] Prescriptions as of 05/05/2023 - ciprofloxacin HCl (CIPRO) 500 mg tablet Take 1 tablet by mouth two times a day for 10 days. - gabapentin (NEURONTIN) 600 mg tablet Take [...] by mouth. Problem List As Of Date 05/04/2023 Noted Resolved Mild protein-calorie malnutrition (HCC) [E44.1] 04/19/2023 Morbid (severe) obesity due to excess calories *04/19/2023 Obesity, Class III, BMI >= 40 [E66.01] 05/04/2023 Bladder tumor [D49.4] 05/04/2023 Encounter Status:Closed by APURVA CAMPA on 05/04/23 [facility] HISTORY PHYSICALon HISTORY PHYSICAL HNO ID: [id number] Author: BRYCE MON APRN.SHOWROOM MANAGER Service: ? Author Type: Nurse Practitioner Type: H&P Filed: 05/04/2023 11:44 Note Text: LOCAL PROCEDURE HISTORY AND PHYSICAL EXAM SERVICE DATE: 05/04/2023 SERVICE TIME: 11:43 AM Provisional Diagnosis/Treatment Plan: Bladder tumor [D49.4] Subjective HPI: This is a 52 year old female who presents with bladder tumor schedule for CYSTOSCOPY FLEXIBLE today. Patient denies recent illnesses, fevers, chills, cough, SOB, CP, palpitations, or fluttering. MEDICATIONS: Prior to Admission medications as of 04/19/23 1407 Medication Sig Last Dose Taking gabapentin (NEURONTIN) 600 mg tablet Take 600 [...] mouth. sennosides (SENOKOT ORAL) Take by mouth. ALLERGIES Allergen Reactions Amoxicillin-Pot Cla* Diarrhea Oxycodone Unknown Adhesive Tape-Silic* Rash Objective PHYSICAL EXAM: The remainder of the physical exam is noncontributory. GENERAL: Alert, no distress, cooperative, Morbidly Obese LUNGS: Lungs clear to auscultation, Good diaphragmatic excursion CARDIAC: Normal S1 and S2; no rubs, murmurs, or gallops LMP (LMP Unknown) PAIN ASSESSMENT: PAIN EVALUATION No data found in the last 1 encounters. Assessment/Plan Active Problems: Obesity, Class III, BMI >= 40 (POA: Unknown) Assessment AND Plan: Bladder tumor (POA: Unknown) Assessment AND Plan: Resolved Problems: Bladder tumor [D49.4] Medication and Non-Pharmacologic VTE Prophylaxis/Anticoagu lants VTE Prophylaxis: NA SIGNATURE: Bryce Mon APRN.CNP PATIENT NAME: Carrie Fletcher DATE: May 04, 2023 TIME: 11:43 AM PAGER: [facility] HISTORY PHYSICAL HNO ID: [id number] Author: APURVA CAMPA MD Service: Urology Author Type: Physician Type: H&P Filed: 05/04/2023 11:40 Note Text: UPDATED HISTORY AND PHYSICAL EXAMINATION SERVICE DATE: 05/04/2023 SERVICE TIME: 11:40 AM PHYSICAL EXAM MUST BE COMPLETED ON ADMISSION The History and Physical (completed in the past 30 days) has been reviewed and the patient has been examined. The contents accurately reflect the patient's condition with the following additions or revisions since the HANDP was completed. Examination indicates no changes. This HANDP can be found in the attached. SIGNATURE: Apurva Campa MD PATIENT NAME: Carrie Fletcher DATE: May 04, 2023 TIME: 11:40 AM [facility] OPERATIVE NOon 05-04-2023 OPERATIVE NO HNO ID: [id number] Author: APURVA CAMPA MD Service: Urology Author Type: Physician Type: Operative Report Filed: 05/04/2023 12:45 Note Text: PROCEDURE: CYSTOSCOPY Preoperative diagnosis: Bladder tumor Postoperative diagnosis: Acute cystitis with debris, multiple diverticulum Surgeon: Apurva Campa M.D. ANESTHESIA: 2% LOCAL XYLOCAIN JELLY. PREOPERATIVE/PROCEDUR AL VERIFICATION: History and Physical reviewed and unchanged. Risks, benefits, alternatives and personnel discussed with patient who consents to proceed. Pt ID verified with patient::YES Procedure verified with patient:: Yes Procedure confirmed with gwot ia/ilo intelligence support:Yes Audible time out was performed: Yes PATIENT WAS PLACED IN: Supine GENETALIA PREPED WITH BETADINE AND DRAPED IN STERILE MANNER. CYSTOSCOPY WAS PERFORMED WITH: Flexible FIBEROPTIC CYSTOSCOPE 30 DEGREE LENSE FINDINGS: COTTON SWAB TEST: NOT APPLICABLE URETHAL MEATUS: NORMAL BLADDER NECK: CLOSED URETHAL DILIATION: No PVRV: DEFERRED STRESS TEST: NOT APPLICABLE CYSTOCELE: NO RECTOCELE: Yes PV EXAM: DEFERRED BLADDER: INFLAMMED: Yes, diffuse throughout the whole bladder TRABECULATIONS: Yes, severe DIVERTICULAE: Yes, multiple and diffuse throughout the bladder STONES: No NORMAL URETERIC ORFICES: Yes NORMAL TRIGONE: Yes TUMOR: no Jansen catheter 18 Serbian was inserted into the bladder and attached to gravity drainage COMPLICATIONS: No DIAGNOSIS: Acute cystitis with pyuria, debris and multiple small diverticuli PLAN: DISCUSSED FINDINGS WITH PATIENT Indwelling catheter inserted Will treat with antibiotics Encourage liberal fluid intake Will remove catheter in 1 month Drain: Nil Specimen: Nil Complications: Nil Estimated blood loss: Nil Incidental punctures or lacerations: Nil I performed the entire procedure APURVA CAMPA M.D. Incision/Procedure Start Time: 12:24 PM Incision Close/Procedure End Time: 12:31 PM May 04, 2023 [facility] CNPNon 04-20-2023 CNPN Telephone (UROLLN) CARRIE FLETCHER ([id number]) 1970 F Date Time Provider Department 04/20/23 APURVA CAMPA During your visit today, we recorded the following information about you: Apurva Campa MD 04/20/2023 12:28 AM Signed Please schedule patient for local flexible cystoscopy at [facility] on Wednesday05-04-23 MD Angela Griffith Heather [...] tumor [D49.4] Order(s):SURGICAL REQUEST - ELECTIVE (09/2019) [[id number]] Order #: [id number]: 1 Prescriptions as of 04/20/2023 - iv [...] Status:Closed by MACY SIMON on 04/20/23 [facility] Bacteria Ur Culton 4 Bacteria identified Cx Nom (U) ORGANISM ID: 1 >=100,000 CFU/ml Mixed microbiota No further workup. Mixed microbiota can be due to???urine???contamin ation with skin bacteria at time of collection or presence of a long-term urinary catheter. If a new culture is needed, please consider re-education of the patient on proper midstream collection technique or straight catheterization for???urine???collect ion. [facility] Comment on above: Performed By: #### 6 30-4 ####[facility] LAB[facility] [id number] [facility] [id number] [facility] CNOVon 04-19-2023 CNOV Office Visit (UROLLN ) CARRIE FLETCHER ([id number]) 1970 F Date Time Provider Department 04/19/23 2:40 PM APURVA CAMPA During your visit today, we recorded the following information about you: Pulse Blood pressure Weight 80/minute 131/87 158.8 kg Apurva Campa MD 04/19/2023 2:43 PM Addendum UA/culture/cytology at [facility] lab Schedule CTU Surgical schedulers will call for cystoscopy under local 05/04/23 office visit post op -05-01 in post op slot 9:20 AM Negrita Da Silva 04/19/2023 2:41 PM Signed Carrie Rowan Chance [id number] [facility] [id number] is a 52 year old female and is here today for hydronephrosis, bladder mass at the request of Janina Hadley [id number] [id number] My final recommendation will be communicated back [...] On Eliquis PLAN: (Management Options): UA/culture/cytology at [facility] lab CTU, GFR 03/31/23: 66 Cystoscopy under local in the operating room 05/04/23. Medical Decision Making: Data: Unique test (more content not included)... [facility] CYTOLOGY NON-GYNon 4 CASE REPORT [facility] Comment on above: Order Comment: Speci men Type: FLUID SPECIMENOrdering Facility: [facility] Address: [address] [place] [address] Result Comment: [facility] Cytology Report Case: [id number] Authorizing Provider: Apurva Campa MD Collected: 04/19/2023 02:58 PM Ordering Location: Urology Received: 04/19/2023 03:19 PM Pathologist: Ruy Díaz MD Specimen: URINE VOIDED Performed By: #### C YTONON ####[facility] LABCLIA [id number] [place] [address] [place] CLINICAL HISTORY bladder mass, hydronephrosis Normal [facility] Comment on above: Order Comment: Speci men Type: FLUID SPECIMENOrdering Facility: [facility] Address: [address] [place] [address] Performed By: #### C YTONON ####[facility] LABCLIA [id number] [place] [address] [place] FINAL DIAGNOSIS Normal [facility] Comment on above: Order Comment: Speci men Type: FLUID SPECIMENOrdering Facility: [facility] Address: [address] [place] [address] Result Comment: A - URINE VOIDED Negative for high-grade urothelial carcinoma. Acute inflammation Performed By: #### C YTONON ####[facility] LABCLIA [id number] [address] [place] FINAL PERFORMING LAB Normal [facility] Comment on above: Order Comment: Speci men Type: FLUID SPECIMENOrdering Facility: [facility] Address: [address] [place] [address] Result Comment: Tech nical component, shock absorber installer screening performed at [facility], [address] [place] [address] CLIA# [id number] Diagnostic interpretation performed at [facility], [address] [place] [address] CLIA# [id number] Overedge Sewer: Sha Boswell M.D. Performed By: #### C YTONON ####[facility] LABCLIA [id number] [place] [address] [place] GROSS DESCRIPTION A. URINE VOIDED Normal Cl [facility] Comment on above: Order Comment: Speci men Type: FLUID SPECIMENOrdering Facility: [facility] Address: [address] [place] [address] Result Comment: 10 c c cloudy light yellow fluid . ThinPrep prepared. Performed By: #### C YTONON ####[facility] LABCLIA [id number] [place] [address] [place] URINALYSIS, REFLEX MICROSCOP ICon 04-19-2023 BACTERIA UL >9821 High Negative [facility] Comment on above: Order Comment: Speci men Type: URINE SPECIMENOrdering Facility: [facility] Address: [address] [place] [address] Performed By: #### L [id number] ####[facility] LABCLIA [id number] [place] [address] [place] Bilirubin Ql (U) Negative Normal Negative [facility] Comment on above: Order Comment: Speci men Type: URINE SPECIMENOrdering Facility: [facility] Address: [address] [place] [address] Performed By: #### L [id number] ####[facility] LABCLIA [id number] [place] [address] [place] Clarity (Unsp spec) Turbid Abnormal Clear [facility] Comment on above: Order Comment: Speci men Type: URINE SPECIMENOrdering Facility: [facility] Address: [address] [place] [address] Performed By: #### L [id number] ####[facility] LABCLIA [id number] [place] [address] [place] Color (U) Yellow Normal Yellow [facility] Comment on above: Order Comment: Speci men Type: URINE SPECIMENOrdering Facility: [facility] Address: [address] [place] [address] Performed By: #### L [id number] ####[facility] LABCLIA [id number] [place] [address] [place] Epithelial cells LM.HPF (Urine sed) [#/Area] Moderate Normal [facility] Comment on above: Order Comment: Speci men Type: URINE SPECIMENOrdering Facility: [facility] Address: [address] [place] [address] Performed By: #### L [id number] ####[facility] LABCLIA [id number] [place] [address] [place] Glucose Test strip (U) [Mass/Vol] Negative Normal Negative [facility] Comment on above: Order Comment: Speci men Type: URINE SPECIMENOrdering Facility: [facility] Address: [address] [place] [address] Performed By: #### L [id number] ####[facility] LABCLIA [id number] [place] [address] [place] Hemoglobin Ql (U) 2+ Abnormal Negative [facility] Comment on above: Order Comment: Speci men Type: URINE SPECIMENOrdering Facility: [facility] Address: [address] [place] [address] Performed By: #### L [id number] ####[facility] LABCLIA [id number] [place] [address] [place] Hyaline casts (Urine sed) [#/Area] /[LPF] Abnormal 0 /LPF [facility] Comment on above: Order Comment: Speci men Type: URINE SPECIMENOrdering Facility: [facility] Address: [address] [place] [address] Performed By: #### L [id number] ####[facility] LABCLIA [id number] [place] [address] [place] Ketones Ql (U) Negative Normal Negative [facility] Comment on above: Order Comment: Speci men Type: URINE SPECIMENOrdering Facility: [facility] Address: [address] [place] [address] Performed By: #### L [id number] ####[facility] LABCLIA [id number] [place] [address] [place] Leukocyte esterase Test strip Ql (U) 3+ Abnormal Negative [facility] Comment on above: Order Comment: Speci men Type: URINE SPECIMENOrdering Facility: [facility] Address: [address] [place] [address] Performed By: #### L [id number] ####[facility] LABCLIA [id number] [place] [address] [place] Nitrite Ql (U) Positive Abnormal Negative [facility] Comment on above: Order Comment: Speci men Type: URINE SPECIMENOrdering Facility: [facility] Address: [address] [place] [address] Performed By: #### L [id number] ####[facility] LABCLIA [id number] [place] [address] [place] pH (U) 7.0 [pH] Normal <8.5 [facility] Comment on above: Order Comment: Speci men Type: URINE SPECIMENOrdering Facility: [facility] Address: [address] [place] [address] Performed By: #### L [id number] ####[facility] LABCLIA [id number] [place] [address] [place] Protein (U) [Mass/Vol] 2+ Abnormal Negative Cl [facility] Comment on above: Order Comment: Speci men Type: URINE SPECIMENOrdering Facility: [facility] Address: [address] [place] [address] Performed By: #### L [id number] ####[facility] LABCLIA [id number] [place] [address] [place] RBC LM.HPF (Urine sed) [#/Area] 0-2 /HPF Normal 0-2 /HPF [facility] Comment on above: Order Comment: Speci men Type: URINE SPECIMENOrdering Facility: [facility] Address: [address] [place] [address] Performed By: #### L [id number] ####[facility] LABIA [id number] [place] [address] [place] Specific gravity (U) [Rel density] 1.013 Normal 1.005-1.030 [facility] Comment on above: Order Comment: Speci men Type: URINE SPECIMENOrdering Facility: [facility] Address: [address] [place] [address] Performed By: #### L [id number] ####[facility] LABIA [id number] [address] [place] Urobilinogen Ql (U) 0.2 EU/dL Normal 0.2-1.0 EU/dL [facility] Comment on above: Order Comment: Speci men Type: URINE SPECIMENOrdering Facility: [facility] Address: [address] [place] [address] Performed By: #### L [id number] ####[facility] LABIA [id number] [address] [place] WBC LM.HPF (Urine sed) [#/Area] /[HPF] Abnormal 0-5 /HPF [facility] Comment on above: Order Comment: Speci men Type: URINE SPECIMENOrdering Facility: [facility] Address: [address] [place] [address] Performed By: #### L [id number] ####[facility] LABIA [id number] [place] [address] [place] US KIDNEY/BLADDERon 04-15-19 24 US KIDNEY/BLADDER * * *Final Report* * * DATE OF EXAM: Apr 15 2023 1:52PM [facility] 1055 - KIDNEY/BLADDER / PROCEDURE REASON: multiple diagnoses * [...] be communicated with the ordering provider via [employer] staff message or phone message by [employer] within 2 business days of report finalization. --END OF FINDING-- Acuity: Actionable Findings: Kidneys/Ureters/Bladd er Routing Code: GU_1 Recommendation: CT UROGRAM WO/W IVCON TimeFrame: at the discretion of the clinical team. --END OF FINDING-- Manager Pool: [id number] Transcribe Date/Time: Apr 15 2023 4:17P Dictated by : LUIS DANIEL SANZ MD This examination was interpreted and the report reviewed and electronically signed by: LUIS DANIEL SANZ MD on Apr 15 2023 4:28PM EST [id number] N ACTIONABLE Invalid Interpretation Code [facility] US Kidney - bilateral and Ur inary bladderon 04-15-2023 Radiology Result ACTIONABLE Abnormal [facility] metabolic 2000 panelon 03-30-2023 Albumin [Mass/Vol] 3.6 g/dL Low 3.9-4.9 [facility] Comment on above: Order Comment: Speci men Type: BLOOD SPECIMENOrdering Facility: [facility] Address: [address] [place] [address] Performed By: #### 2 4323-8 ####[facility] LABCLIA [id number] [place] [address] [place] ALP [Catalytic activity/Vol] 53 U/L Normal 34-123 [facility] Comment on above: Order Comment: Speci men Type: BLOOD SPECIMENOrdering Facility: [facility] Address: [address] [place] [address] Performed By: #### 2 4323-8 ####[facility] LABCLIA [id number] [place] [address] [place] ALT [Catalytic activity/Vol] 11 U/L Normal 7-38 [facility] Comment on above: Order Comment: Speci men Type: BLOOD SPECIMENOrdering Facility: [facility] Address: [address] [place] [address] Performed By: #### 2 4323-8 ####[facility] LABCLIA [id number] [place] [address] [place] Anion gap [Moles/Vol] 12 mmol/L Normal 9-18 [facility] Comment on above: Order Comment: Speci men Type: BLOOD SPECIMENOrdering Facility: [facility] Address: [address] [place] [address] Performed By: #### 2 4323-8 ####[facility] LABCLIA [id number] [place] [address] [place] AST [Catalytic activity/Vol] 9 U/L Low 13-35 [facility] Comment on above: Order Comment: Speci men Type: BLOOD SPECIMENOrdering Facility: [facility] Address: [address] [place] [address] Performed By: #### 2 4323-8 ####[facility] LABCLIA [id number] [place] [id number] [place] Bilirubin [Mass/Vol] 0.2 mg/dL Normal 0.2-1.3 [facility] Comment on above: Order Comment: Speci men Type: BLOOD SPECIMENOrdering Facility: [facility] Address: [address] [place] [address] Performed By: #### 2 4323-8 ####[facility] LABCLIA [id number] [place] [address] [place] Calcium [Mass/Vol] 10.0 mg/dL Normal 8.5-10.2 [facility] Comment on above: Order Comment: Speci men Type: BLOOD SPECIMENOrdering Facility: [facility] Address: [address] [place] [address] Performed By: #### 2 4323-8 ####[facility] LABCLIA [id number] [place] [address] [place] Chloride [Moles/Vol] 106 mmol/L High 97-105 [facility] Comment on above: Order Comment: Speci men Type: BLOOD SPECIMENOrdering Facility: [facility] Address: [address] [place] [address] Performed By: #### 2 4323-8 ####[facility] LABCLIA [id number] [place] [address] [place] CO2 [Moles/Vol] 26 mmol/L Normal 22-30 [facility] Comment on above: Order Comment: Speci men Type: BLOOD SPECIMENOrdering Facility: [facility] Address: [address] [place] [address] Performed By: #### 2 4323-8 ####[facility] LABCLIA [id number] [place] [address] [place] Creatinine [Mass/Vol] 1.01 mg/dL High 0.58-0.96 [facility] Comment on above: Order Comment: Enrique lam Type: BLOOD SPECIMENOrdering Facility: [facility] Address: [address] [place] [address] Performed By: #### 2 4323-8 ####[facility] LABIA [id number] [place] [address] [place] Creatinine and Glomerular filtration rate.predicted panel (S/P/Bld) 67 mL/min/1.73m??? Normal >=60 [facility] Comment on above: Order Comment: Enrique lam Type: BLOOD SPECIMENOrdering Facility: [facility] Address: [address] [place] [address] Result Comment: Radha mated Glomerular Filtration Rate [...] actual GFR. Performed By: #### 2 4323-8 ####[facility] LABIA [id number] [place] [address] [place] Glucose [Mass/Vol] 84 mg/dL Normal 74-99 [facility] Comment on above: Order Comment: Enrique lam Type: BLOOD SPECIMENOrdering Facility: [facility] Address: [address] [place] [address] Result Comment: The [place] Diabetes [employer] (ADA) provides guidance for cutoff [...] Standards of Medical Care in Diabetes 2016, [place] [employer]. Diabetes Care. 2016.39(Suppl 1). Performed By: #### 2 4323-8 ####[facility] LABCLIA [id number] [place] [address] [place] Potassium [Moles/Vol] 4.7 mmol/L Normal 3.7-5.1 [facility] Comment on above: Order Comment: Speci men Type: BLOOD SPECIMENOrdering Facility: [facility] Address: [address] [place] [address] Performed By: #### 2 4323-8 ####[facility] LABCLIA [id number] [place] [address] [place] Protein [Mass/Vol] 7.6 g/dL Normal 6.3-8.0 [facility] Comment on above: Order Comment: Speci men Type: BLOOD SPECIMENOrdering Facility: [facility] Address: [address] [place] [address] Performed By: #### 2 4323-8 ####[facility] LABCLIA [id number] [place] [address] [place] Sodium [Moles/Vol] 144 mmol/L Normal 136-144 [facility] Comment on above: Order Comment: Speci men Type: BLOOD SPECIMENOrdering Facility: [facility] Address: [address] [place] [address] Performed By: #### 2 4323-8 ####[facility] LABCLIA [id number] [place] [address] [place] Urea nitrogen [Mass/Vol] 23 mg/dL High 7-21 [facility] Comment on above: Order Comment: Speci men Type: BLOOD SPECIMENOrdering Facility: [facility] Address: [address] [place] [id number] Performed By: #### 2 4323-8 ####[facility] JUNIOR [id number] [id number] [id number] [place] Rina 03-25-2023 CNPN Telephone (ANGMNQ) CARRIE FLETCHER ([id number]) 1970 F Date Time Provider Department 03/25/23 [...] Status:Closed by TIFFANY GRUBER on 04/01/23 Normal [facility] A1C with Estimated Average Rito salehshaheen 01-15-2023 Glucose [Mass/Vol] 105 mg/dL Normal [facility] Comment on above: Order Comment: Reaso n for Exam Neurogenic bladder;S/P bariatric surgery;History of pulmonar Result Comment: PERF ORMED BY: [place] [address] PATHOLOGIST BILLING MANAGER DINO ANDREWS M.D. Performed By: #### [facility] e[facility] #### [facility] [address] [place] [address] HbA1c (Bld) [Mass fraction] 5.3 % Normal 4.3-5.6 [facility] Comment on above: Order Comment: Reaso n for Exam Neurogenic bladder;S/P bariatric surgery;History of pulmonar Result Comment: Incr eased risk for diabetes: 5.7 - 6.4 diabetes: >6.4 glycemic control for adults with diabetes: <7.0 Performed By: #### [facility] #### [facility] [address] [place] [address] Alanine aminotransferase [En zymatic activity/volume] in Serum or PlasmaOrdered By: Lon Ibrahim on 01-15-2023 ALT [Catalytic activity/Vol] 12 U/L 7-52 [facility] Albumin [Mass/volume] in Ser um or Plasma by Bromocresol green (BCG) dye binding methoOrdered By: Lon Ibrahim on 01-15-2023 Albumin BCG dye [Mass/Vol] 3.7 g/dL 3.5-5.7 [facility] Alkaline phosphatase [Enzyma tic activity/volume] in Serum or PlasmaOrdered By: Lon Ibrahim on 01-15-2023 ALP [Catalytic activity/Vol] 44 U/L 34-104 [facility] Aspartate aminotransferase [ Enzymatic activity/volume] in Serum or PlasmaOrdered By: Lon Ibrahim on 01-15-2023 AST [Catalytic activity/Vol] 13 U/L 13-39 [facility] Basophils Auto (Bld) [#/Vol] Ordered By: Lon Ibrahim on 01-15-2023 Basophils (Bld) [#/Vol] 0.0 10*3/uL 0.0-0.2 [facility] Basophils/100 WBC Auto (Bld) Ordered By: Lon Ibrahim on 01-15-2023 Basophils/100 WBC (Bld) 0.3 % . [facility] Bilirubin.total [Mass/volume ] in Serum or PlasmaOrdered By: Lon Ibrahim on 01-15-2023 Bilirubin [Mass/Vol] 0.3 mg/dL 0.3-1.0 [facility] Calcium [Mass/volume] in Ser um or PlasmaOrdered By: Lon Ibrahim 01-15-2023 Calcium [Mass/Vol] 9.2 mg/dL 8.6-10.3 [facility] Carbon dioxide, total [Moles /volume] in Serum or PlasmaOrdered By: Lon Ibrahim on 01-15-2023 CO2 [Moles/Vol] 28.4 mmol/L 21.0-31.0 [facility] Chloride [Moles/volume] in S enedina or PlasmaOrdered By: Lon Ibrahim 01-15-2023 Chloride [Moles/Vol] 107 mmol/L 98-107 [facility] Cholesterol [Mass/volume] in Serum or PlasmaOrdered By: Lon Ibrahim on 01-15-2023 Cholesterol [Mass/Vol] 193 mg/dL 140-200 [facility] Comment on above: Chol less than 200 m g/dl low riskChol 201-239 mg/dl borderline riskChol 240 mg/dl and greater high risk Cholesterol in LDL Calc [Mas s/Vol]Ordered By: Lon Ibrahim on 01-15-2023 Cholesterol in LDL [Mass/Vol] 104 mg/dL 0-100 [facility] Comment on above: LDL ATP III CLASSIFI CATIONLDL less than 100 mg/dL OptimalLDL 100-129 mg/dL Near or above optimalLDL 130-159 mg/dL Borderline highLDL 160-189 mg/dL HighLDL greater than 189 mg/dL Very high Cholesterol in VLDL Calc [Ma ss/Vol]Ordered By: Lon Ibrahim on 01-15-2023 Cholesterol in VLDL [Mass/Vol] 39 mg/dL [facility] Complete Blood Count Auto Di ffon 01-15-2023 Basophils (Bld) [#/Vol] 0.0 10*3/uL Normal 0.0-0.2 [facility] Comment on above: Order Comment: Reaso n for Exam Hyperlipidemia Reason for Exam S/P bariatric surgery Result Comment: PERF ORMED BY: [place] [address] PATHOLOGIST BILLING MANAGER DINO ANDREWS M.D. Performed By: #### B 12, BRAIN, CBC, FOL, TSH3, CMP, LIPID, A1C WTH eA #### [facility] [address] [place] [address] [place] Basophils/100 WBC (Bld) 0.3 % Normal . [facility] Comment on above: Order Comment: Reaso n for Exam Hyperlipidemia Reason for Exam S/P bariatric surgery Performed By: #### B 12, BRAIN, CBC, FOL, TSH3, CMP, LIPID, A1C WTH eA #### [facility] [address] [place] [address] [place] Eosinophils (Bld) [#/Vol] 0.1 10*3/uL Normal 0.0-0.45 [facility] Comment on above: Order Comment: Reaso n for Exam Hyperlipidemia Reason for Exam S/P bariatric surgery Performed By: #### B 12, BRAIN, CBC, FOL, TSH3, CMP, LIPID, A1C WTH eA #### [facility] [address] [place] [address] [place] Eosinophils/100 WBC (Bld) 1.6 % Normal . [facility] Comment on above: Order Comment: Reaso n for Exam Hyperlipidemia Reason for Exam S/P bariatric surgery Performed By: #### B 12, BRAIN, CBC, FOL, TSH3, CMP, LIPID, A1C WTH eA #### [facility] [address] Erythrocyte distribution width (RBC) [Ratio] 14.1 % Normal 11.9-15.3 [facility] Comment on above: Order Comment: Reaso n for Exam Hyperlipidemia Reason for Exam S/P bariatric surgery Performed By: #### B 12, BRAIN, CBC, FOL, TSH3, CMP, LIPID, A1C WTH eA #### [facility] [address] [place] [address] Hematocrit (Bld) [Volume fraction] 39.8 % Normal 34.0-46.4 [facility] Comment on above: Order Comment: Reaso n for Exam Hyperlipidemia Reason for Exam S/P bariatric surgery Performed By: #### B 12, BRAIN, CBC, FOL, TSH3, CMP, LIPID, A1C WTH eA #### [place] [address] [place] Hemoglobin (Bld) [Mass/Vol] 13.0 g/dL Normal 11.8-15.4 [facility] Comment on above: Order Comment: Reaso n for Exam Hyperlipidemia Reason for Exam S/P bariatric surgery Performed By: #### B 12, BRAIN, CBC, FOL, TSH3, CMP, LIPID, A1C WTH eA #### [place] [address] [place] Lymphocytes (Bld) [#/Vol] 2.5 10*3/uL Normal 1.00-4.8 [facility] Comment on above: Order Comment: Reaso n for Exam Hyperlipidemia Reason for Exam S/P bariatric surgery Performed By: #### B 12, BRAIN, CBC, FOL, TSH3, CMP, LIPID, A1C WTH eA #### [place] [address] [place] Lymphocytes/100 WBC (Bld) 37.2 % Normal . [facility] Comment on above: Order Comment: Reaso n for Exam Hyperlipidemia Reason for Exam S/P bariatric surgery Performed By: #### B 12, BRAIN, CBC, FOL, TSH3, CMP, LIPID, A1C WTH eA #### [facility] [address] MCH (RBC) [Entitic mass] 30.3 pg Normal 24.7-34.3 [facility] Comment on above: Order Comment: Reaso n for Exam Hyperlipidemia Reason for Exam S/P bariatric surgery Performed By: #### B 12, BRAIN, CBC, FOL, TSH3, CMP, LIPID, A1C WTH eA #### [facility] [address] MCV (RBC) [Entitic vol] 93.2 fL Normal 80-100 [facility] Comment on above: Order Comment: Reaso n for Exam Hyperlipidemia Reason for Exam S/P bariatric surgery Performed By: #### B 12, BRAIN, CBC, FOL, TSH3, CMP, LIPID, A1C WTH eA #### [facility] [address] [place] [address] Mean Corpuscular HGB Conc 32.5 g/dL Normal 32.0-35.0 [facility] Comment on above: Order Comment: Reaso n for Exam Hyperlipidemia Reason for Exam S/P bariatric surgery Performed By: #### B 12, BRAIN, CBC, FOL, TSH3, CMP, LIPID, A1C WTH eA #### [address] Monocytes (Bld) [#/Vol] 0.4 10*3/uL Normal 0.0-0.8 [facility] Comment on above: Order Comment: Reaso n for Exam Hyperlipidemia Reason for Exam S/P bariatric surgery Performed By: #### B 12, BRAIN, CBC, FOL, TSH3, CMP, LIPID, A1C WTH eA #### [facility] [address] [place] [address] [place] Monocytes/100 WBC (Bld) 6.4 % Normal . [facility] Comment on above: Order Comment: Reaso n for Exam Hyperlipidemia Reason for Exam S/P bariatric surgery Performed By: #### B 12, BRAIN, CBC, FOL, TSH3, CMP, LIPID, A1C WTH eA #### [facility] [address] [place] [address] [place] Neutrophils (Bld) [#/Vol] 3.7 10*3/uL Normal 1.8-7.7 [facility] Comment on above: Order Comment: Reaso n for Exam Hyperlipidemia Reason for Exam S/P bariatric surgery Performed By: #### B 12, BRAIN, CBC, FOL, TSH3, CMP, LIPID, A1C WTH eA #### [facility] [address] [place] [address] [place] Neutrophils/100 WBC (Bld) 54.5 % Normal . [facility] Comment on above: Order Comment: Reaso n for Exam Hyperlipidemia Reason for Exam S/P bariatric surgery Performed By: #### B 12, BRAIN, CBC, FOL, TSH3, CMP, LIPID, A1C WTH eA #### [facility] [address] [place] [address] NRBC% 0.1 /100{WBC} Normal 0-0.5 [facility] Comment on above: Order Comment: Reaso n for Exam Hyperlipidemia Reason for Exam S/P bariatric surgery Performed By: #### B 12, BRAIN, CBC, FOL, TSH3, CMP, LIPID, A1C WTH eA #### [facility] [address] [place] [address] [place] Platelet mean volume (Bld) [Entitic vol] 8.7 fL Normal 6.3-10.7 [facility] Comment on above: Order Comment: Reaso n for Exam Hyperlipidemia Reason for Exam S/P bariatric surgery Performed By: #### B 12, BRAIN, CBC, FOL, TSH3, CMP, LIPID, A1C WTH eA #### [facility] [address] [place] [address] [place] Platelets (Bld) [#/Vol] 234 10*3/uL Normal 150-450 [facility] Comment on above: Order Comment: Reaso n for Exam Hyperlipidemia Reason for Exam S/P bariatric surgery Performed By: #### B 12, BRAIN, CBC, FOL, TSH3, CMP, LIPID, A1C WTH eA #### [facility] [address] [place] [address] [place] RBC (Bld) [#/Vol] 4.27 10*6/uL Normal 3.60-5.00 [facility] Comment on above: Order Comment: Reaso n for Exam Hyperlipidemia Reason for Exam S/P bariatric surgery Performed By: #### B 12, BRAIN, CBC, FOL, TSH3, CMP, LIPID, A1C WTH eA #### [facility] [address] [place] [id number] [facility] WBC (Bld) [#/Vol] 6.8 10*3/uL Normal 3.8-11.6 [facility] Comment on above: Order Comment: Reaso n for Exam Hyperlipidemia Reason for Exam S/P bariatric surgery Performed By: #### B 12, BRAIN, CBC, FOL, TSH3, CMP, LIPID, A1C WTH eA #### [facility] [address] Comprehensive Metabolic Pane mal 01-15-2023 Albumin [Mass/Vol] 3.7 g/dL Normal 3.5-5.7 [facility] Comment on above: Order Comment: Reaso n for Exam Hyperlipidemia Reason for Exam S/P bariatric surgery Performed By: #### B 12, BRAIN, CBC, FOL, TSH3, CMP, LIPID, A1C WTH eA #### [facility] [address] Albumin/Globulin [Mass ratio] 1.1 {ratio} Normal [facility] Comment on above: Order Comment: Reaso n for Exam Hyperlipidemia Reason for Exam S/P bariatric surgery Performed By: #### B 12, BRAIN, CBC, FOL, TSH3, CMP, LIPID, A1C WTH eA #### [facility] [address] [place] [id number] [facility] ALP [Catalytic activity/Vol] 44 U/L Normal 34-104 [facility] Comment on above: Order Comment: Reaso n for Exam Hyperlipidemia Reason for Exam S/P bariatric surgery Performed By: #### B 12, BRAIN, CBC, FOL, TSH3, CMP, LIPID, A1C WTH eA #### [facility] [address] ALT [Catalytic activity/Vol] 12 U/L Normal 7-52 [facility] Comment on above: Order Comment: Reaso n for Exam Hyperlipidemia Reason for Exam S/P bariatric surgery Performed By: #### B 12, BRAIN, CBC, FOL, TSH3, CMP, LIPID, A1C WTH eA #### [facility] [address] [place] [id number] [facility] Anion gap [Moles/Vol] 9.7 mmol/L Normal 6.0-15.0 [facility] Comment on above: Order Comment: Reaso n for Exam Hyperlipidemia Reason for Exam S/P bariatric surgery Performed By: #### B 12, BRAIN, CBC, FOL, TSH3, CMP, LIPID, A1C WTH eA #### [facility] [address] AST [Catalytic activity/Vol] 13 U/L Normal 13-39 [facility] Comment on above: Order Comment: Reaso n for Exam Hyperlipidemia Reason for Exam S/P bariatric surgery Performed By: #### B 12, BRAIN, CBC, FOL, TSH3, CMP, LIPID, A1C WTH eA #### [facility] [address] Bilirubin [Mass/Vol] 0.3 mg/dL Normal 0.3-1.0 [facility] Comment on above: Order Comment: Reaso n for Exam Hyperlipidemia Reason for Exam S/P bariatric surgery Performed By: #### B 12, BRAIN, CBC, FOL, TSH3, CMP, LIPID, A1C WTH eA #### [facility] [address] [place] [id number] [facility] Calcium [Mass/Vol] 9.2 mg/dL Normal 8.6-10.3 [facility] Comment on above: Order Comment: Reaso n for Exam Hyperlipidemia Reason for Exam S/P bariatric surgery Performed By: #### B 12, BRAIN, CBC, FOL, TSH3, CMP, LIPID, A1C WTH eA #### [facility] [address] [place] [id number] [facility] Chloride [Moles/Vol] 107 mmol/L Normal 98-107 [facility] Comment on above: Order Comment: Reaso n for Exam Hyperlipidemia Reason for Exam S/P bariatric surgery Performed By: #### B 12, BRAIN, CBC, FOL, TSH3, CMP, LIPID, A1C WTH eA #### [facility] [address] CO2 [Moles/Vol] 28.4 mmol/L Normal 21.0-31.0 [facility] Comment on above: Order Comment: Reaso n for Exam Hyperlipidemia Reason for Exam S/P bariatric surgery Performed By: #### B 12, BRAIN, CBC, FOL, TSH3, CMP, LIPID, A1C WTH eA #### [facility] [address] Creatinine [Mass/Vol] 0.83 mg/dL Normal 0.60-1.20 [facility] Comment on above: Order Comment: Reaso n for Exam Hyperlipidemia Reason for Exam S/P bariatric surgery Performed By: #### B 12, BRAIN, CBC, FOL, TSH3, CMP, LIPID, A1C WTH eA #### [facility] [address] GFR/1.73 sq M.predicted MDRD (S/P/Bld) [Vol rate/Area] mL/min/{1.73_m2} [facility] Comment on above: Order Comment: Reaso n for Exam Hyperlipidemia Reason for Exam S/P bariatric surgery Performed By: #### B 12, BRAIN, CBC, FOL, TSH3, CMP, LIPID, A1C WTH eA #### [facility] [address] [place] [place] [phone] [facility] Globulin (S) [Mass/Vol] 3.3 g/dL Normal [facility] Comment on above: Order Comment: Reaso n for Exam Hyperlipidemia Reason for Exam S/P bariatric surgery Performed By: #### B 12, BRAIN, CBC, FOL, TSH3, CMP, LIPID, A1C WTH eA #### [facility] [address] [place] [place] [id number] [facility] Glucose [Mass/Vol] 84 mg/dL Normal 70-100 [facility] Comment on above: Order Comment: Reaso n for Exam Hyperlipidemia Reason for Exam S/P bariatric surgery Result Comment: [facility] Glucose Reference Range is dependent on time and content of last meal. Glucose of more than 200 mg/dL in a nonstressed, ambulatory subject supports the diagnosis of Diabetes Mellitus. ADA recommended reference range Performed By: #### B 12, BRAIN, CBC, FOL, TSH3, CMP, LIPID, A1C WTH eA #### [facility] [address] [place] [phone] [facility] Potassium [Moles/Vol] 4.1 mmol/L Normal 3.5-5.1 [facility] Comment on above: Order Comment: Reaso n for Exam Hyperlipidemia Reason for Exam S/P bariatric surgery Performed By: #### B 12, BRAIN, CBC, FOL, TSH3, CMP, LIPID, A1C WTH eA #### [facility] [address] Protein [Mass/Vol] 7.0 g/dL Normal 6.4-8.9 [facility] Comment on above: Order Comment: Reaso n for Exam Hyperlipidemia Reason for Exam S/P bariatric surgery Performed By: #### B 12, BRAIN, CBC, FOL, TSH3, CMP, LIPID, A1C WTH eA #### [facility] [address] [place] [id number] [place] Sodium [Moles/Vol] 141 mmol/L Normal 136-145 [facility] Comment on above: Order Comment: Reaso n for Exam Hyperlipidemia Reason for Exam S/P bariatric surgery Performed By: #### B 12, BRAIN, CBC, FOL, TSH3, CMP, LIPID, A1C WTH eA #### [facility] [address] [place] [place] [phone] [place] Urea nitrogen [Mass/Vol] 22 mg/dL Normal 7-25 [facility] Comment on above: Order Comment: Reaso n for Exam Hyperlipidemia Reason for Exam S/P bariatric surgery Performed By: #### B 12, BRAIN, CBC, FOL, TSH3, CMP, LIPID, A1C WTH eA #### [facility] [address] [place] [place] [phone] [place] Creatinine [Mass/volume] in Serum or PlasmaOrdered By: Lon Ibrahim on 01-15-2023 Creatinine [Mass/Vol] 0.83 mg/dL 0.60-1.20 [facility] Eosinophils Auto (Bld) [#/Vo l]Ordered By: Lon Ibrahim on 01-15-2023 Eosinophils (Bld) [#/Vol] 0.1 10*3/uL 0.0-0.45 [facility] Eosinophils/100 WBC Auto (Bl d)Ordered By: Lon Ibrahim on 01-15-2023 Eosinophils/100 WBC (Bld) 1.6 % . [facility] Erythrocyte distribution wid th Auto (RBC) [Ratio]Ordered By: Lon Ibrahim on 01-15-2023 Erythrocyte distribution width (RBC) [Ratio] 14.1 % 11.9-15.3 [facility] Globulin Calc (S) [Mass/Vol] Ordered By: Lon Ibrahim on 01-15-2023 Globulin (S) [Mass/Vol] 3.3 g/dL [facility] Glucose [Mass/volume] in Ser um or PlasmaOrdered By: Lon Ibrahim on 01-15-2023 Glucose [Mass/Vol] 84 mg/dL 70-100 [facility] Comment on above: ADA recommended refe rence rangeRandom Glucose Reference Range is dependent on time and content of last meal. Glucose of more than 200 mg/dL in a nonstressed, ambulatory subject supports the diagnosis of Diabetes Mellitus. Hematocrit Auto (Bld) [Volum e fraction]Ordered By: Lon Ibrahim on 01-15-2023 Hematocrit (Bld) [Volume fraction] 39.8 % 34.0-46.4 [facility] Hemoglobin [Mass/volume] in BloodOrdered By: Lon Ibrahim on 01-15-2023 Hemoglobin (Bld) [Mass/Vol] 13.0 g/dL 11.8-15.4 [facility] Leukocytes [#/volume] correc patricia for nucleated erythrocytes in Blood by Automated counOrdered By: Lon Ibrahim on 01-15-2023 WBC corrected for nucl RBC Auto (Bld) [#/Vol] 6.8 10*3/uL 3.8-11.6 [facility] Lipid Panelon 01-15-2023 Cholesterol [Mass/Vol] 193 mg/dL Normal 140-200 [facility] Comment on above: Order Comment: Reaso n for Exam Hyperlipidemia Reason for Exam S/P bariatric surgery Result Comment: Chol less than 200 mg/dl low risk Chol 201-239 mg/dl borderline risk Chol 240 mg/dl and greater high risk Performed By: #### B 12, BRAIN, CBC, FOL, TSH3, CMP, LIPID, A1C WTH eA #### [facility] [address] [place] [address] [place] Cholesterol in HDL [Mass/Vol] 50 mg/dL Normal 23-92 [facility] Comment on above: Order Comment: Reaso n for Exam Hyperlipidemia Reason for Exam S/P bariatric surgery Result Comment: HDL CHOL ATP-III CLASSIFICATION Cardiovascular Risk HDL > or equal to 60 mg/dL LOW HDL < 40 mg/dL HIGH Performed By: #### B 12, BRAIN, CBC, FOL, TSH3, CMP, LIPID, A1C WT eA #### [facility] [address] [place] [phone] [facility] Cholesterol.total/Roseanna sterol in HDL [Mass ratio] 3.9 {ratio} Normal <5.0 [facility] Comment on above: Order Comment: Reaso n for Exam Hyperlipidemia Reason for Exam S/P bariatric surgery Performed By: #### B 12, BRAIN, CBC, FOL, TSH3, CMP, LIPID, A1C WTH eA #### [facility] [address] [place] [address] [place] LDL Cholesterol,Calculated 104 mg/dL High 0-100 [facility] Comment on above: Order Comment: Reaso n [...] TSH3, CMP, LIPID, A1C WTH eA #### [facility] [address] [place] [address] [place] Triglyceride w/Reflex 196 mg/dL High 0-149 [facility] Comment on above: Order Comment: Reaso n [...] TSH3, CMP, LIPID, A1C WT eA #### [facility] [address] VLDL CHOLESTEROL 39 mg/dL Normal [facility] Comment on above: Order Comment: Reaso n for Exam Hyperlipidemia Reason for Exam S/P bariatric surgery Performed By: #### B 12, BRAIN, CBC, FOL, TSH3, CMP, LIPID, A1C WT eA #### [facility] [address] Lymphocytes Auto (Bld) [#/Vo l]Ordered By: Lon Ibrahim on 01-15-2023 Lymphocytes (Bld) [#/Vol] 2.5 10*3/uL 1.00-4.8 [facility] Lymphocytes/100 WBC Auto (Bl d)Ordered By: Lon Ibrahim on 01-15-2023 Lymphocytes/100 WBC (Bld) 37.2 % . [facility] MCH Auto (RBC) [Entitic mass ]Ordered By: Lon Ibrahim on 01-15-2023 MCH (RBC) [Entitic mass] 30.3 pg 24.7-34.3 [facility] MCHC Auto (RBC) [Mass/Vol]Or dered By: Lon Ibrahim on 01-15-2023 MCHC (RBC) [Mass/Vol] 32.5 g/dL 32.0-35.0 [facility] MCV Auto (RBC) [Entitic vol] Ordered By: Lon Ibrahim on 01-15-2023 MCV (RBC) [Entitic vol] 93.2 fL 80-100 [facility] Monocytes Auto (Bld) [#/Vol] Ordered By: Lon Ibrahim on 01-15-2023 Monocytes (Bld) [#/Vol] 0.4 10*3/uL 0.0-0.8 [facility] Monocytes/100 WBC Auto (Bld) Ordered By: Lon Ibrahim on 01-15-2023 Monocytes/100 WBC (Bld) 6.4 % . [facility] Neutrophils Auto (Bld) [#/Vo l]Ordered By: Lon Ibrahim on 01-15-2023 Neutrophils (Bld) [#/Vol] 3.7 10*3/uL 1.8-7.7 [facility] Neutrophils/100 WBC Auto (Bl d)Ordered By: Lon Ibrahim on 01-15-2023 Neutrophils/100 WBC (Bld) 54.5 % . [facility] No Panel InformationOrdered By: Lon Ibrahim on 01-15-2023 Estimated GFR (CKD-EPI) > 60.0 mL/Min [facility] Creatinine Clearance (Chem N/A [facility] Nucleated erythrocytes [Pres ence] in Blood by Automated countOrdered By: Lon Ibrahim on 01-15-2023 Nucleated RBC Auto Ql (Bld) 0.1 /100{WBC} 0-0.5 [facility] Platelet mean volume Auto (B ld) [Entitic vol]Ordered By: Lon Ibrahim on 01-15-2023 Platelet mean volume (Bld) [Entitic vol] 8.7 fL 6.3-10.7 [facility] Platelets Auto (Bld) [#/Vol] Ordered By: Lon Ibrahim on 01-15-2023 Platelets (Bld) [#/Vol] 234 10*3/uL 150-450 [facility] Potassium [Moles/volume] in Serum or PlasmaOrdered By: Lon Ibrahim on 01-15-2023 Potassium [Moles/Vol] 4.1 mmol/L 3.5-5.1 [facility] Protein [Mass/volume] in Ser um or PlasmaOrdered By: Lon Ibrahim on 01-15-2023 Protein [Mass/Vol] 7.0 g/dL 6.4-8.9 [facility] RBC Auto (Bld) [#/Vol]Ordere d By: Lon Ibrahim on 01-15-2023 RBC (Bld) [#/Vol] 4.27 10*6/uL 3.60-5.00 [facility] Serum or plasma albumin/glob ulin mass ratioOrdered By: Lon Ibrahim on 12-08-2023 Albumin/Globulin [Mass ratio] 1.1 {ratio} [facility] Serum or plasma anion gap de terminationOrdered By: Lon Ibrahim on 01-15-2023 Anion gap [Moles/Vol] 9.7 mmol/L 6.0-15.0 [facility] Serum or plasma high density lipoprotein (HDL) cholesterol measurementOrdered By: Lon Ibrahim on 01-15-2023 Cholesterol in HDL [Mass/Vol] 50 mg/dL 23-92 [facility] Comment on above: HDL CHOL ATP-III CLA SSIFICATION Cardiovascular RiskHDL > or equal to 60 mg/dL LOWHDL < 40 mg/dL HIGH Serum or plasma total choles terol/high density lipoprotein (HDL) cholesterol mass ratOrdered By: Lon Ibrahim on 01-15-2023 Cholesterol.total/Roseanna sterol in HDL [Mass ratio] 3.9 {ratio} <5.0 [facility] Sodium [Moles/volume] in Ser um or PlasmaOrdered By: Lon Ibrahim on 01-15-2023 Sodium [Moles/Vol] 141 mmol/L 136-145 [facility] Thyroid Stimulating Hormoneo n 01-15-2023 TSH Qn 1.78 m[IU]/L Normal 0.45-5.33 [facility] Comment on above: Order Comment: Reaso n for Exam Hyperlipidemia Reason for Exam S/P bariatric surgery Result Comment: PERF ORMED BY: [place] [address] PATHOLOGIST BILLING MANAGER DINO ANDREWS M.D. Performed By: #### B 12, BRAIN, CBC, FOL, TSH3, CMP, LIPID, A1C [facility] e[facility] #### [facility] [address] Thyrotropin [Units/volume] i n Serum or PlasmaOrdered By: Lon Ibrahim on 01-15-2023 TSH Qn 1.78 m[IU]/L 0.45-5.33 [facility] Triglyceride [Mass/volume] i n Serum or PlasmaOrdered By: Lon Ibrahim on 01-15-2023 Triglyceride [Mass/Vol] 196 mg/dL 0-149 [facility] Comment on above: TRIG ATP III CLASSIF ICATIONTRIG less than 150 mg/dL NormalTRIG 150-199 mg/dL Borderline highTRIG 200-500 mg/dL High TRIG greater than 500 mg/dL Very highStandard traceable to the Center for Disease Conrtrol and Prevention (CDC) test method. Urea nitrogen [Mass/volume] in Serum or PlasmaOrdered By: Lon Ibrahim on 01-15-2023 Urea nitrogen [Mass/Vol] 22 mg/dL 7-25 [facility] WBC Auto (Bld) [#/Vol]Ordere d By: Lon Ibrahim on 01-15-2023 WBC (Bld) [#/Vol] 6.8 10*3/uL 3.8-11.6 [facility] Urinalysis - AUTOMATEDon Appearance (U) cloudy [employer] Other Bilirubin Ql (U) Negative [employer] Other Color (U) brown [employer] Other Glucose Ql (U) Negative [employer] Other Hemoglobin Ql (U) Large [employer] Other Ketones Ql (U) Trace [employer] Other Leukocyte esterase Test strip Ql (U) [employer] Other Nitrite Ql (U) Positive [employer] Other pH (U) 6.0 [pH] [employer] Other Protein Ql (U) 30+ [employer] Other Specific gravity (U) [Rel density] 1.015 [employer] Other Urobilinogen (U) [Mass/Vol] 0.2 mg/dL [employer] Other Urinalysis - AUTOMATED No rt [employer] Other Urine Cultureon 01-12-2023 Bacteria identified Cx Nom (U) ORGANISM: Escherichia coli (MDRO) (O:ESCCOLMDRO) [place] Count >100,000 Aerobic JAVIER Charge (NMIC56) ---- [...] RESISTANT TO ALL B-LACTAM DRUGS. PERFORMED BY: [place] [address] PATHOLOGIST BILLING MANAGER DINO ANDREWS M.D. Normal [facility] Comment on above: Performed By: #### C UU #### [address] CNOVon 12-21-2022 CNOV Office Visit (SPNSMN ) CARRIE FLETCHER ([id number]) 1970 F Date Time Provider Department 12/21/22 [...] legs, progressing since 2021. Last saw Champ Carr on 11/27 during a virtual visit, with [...] Percentile 2 (more content not included)... Normal [facility] XR LUMBAR 4V AP/LAT/ FLEX/EX Ton 12-21-2022 [...] lumbar facet joints. No other significant abnormality. Manager Pool: PSCB Transcribe Date/Time: Dec 21 2022 12:36P Dictated by : BERTA HERMAN MD This examination was interpreted and the report reviewed and electronically signed by: BERTA HERMAN MD on Dec 21 2022 12:38PM EST [id number] Normal [facility] XR LUMBAR MOTION 4V AP/LAT/ FLEX/EXTon 12-21-2022 [facility] No Panel Informationon 11-17 Radiology Result ACTIONABLE Abnormal [facility] MRI LUMBAR SPINE WO IVCONon 11-16-2022 MRI LUMBAR SPINE WO IVCON * * *Final Report* * * DATE OF EXAM: Nov 16 2022 4:58PM [facility] 0303 - MRI LUMBAR SPINE WO IVCON [...] be communicated with the ordering provider via [employer] staff message or phone message by [employer] within 2 business days of report finalization. --END OF FINDING-- Algorithms for management of incidental imaging findings can be found on the [facility] Intranet Sharepoint site at: [email or web address] [email or web address] [email or web address]%20Incide ntal%20Findi ngs%20at%20Imaging/Fo suellen/AllItems.aspx Manager Pool: BEBETO Transcribe Date/Time: Nov 17 2022 7:28A Dictated by : MOUSTAPHA DAY MD This examination was interpreted and the report reviewed and electronically signed by: MOUSTAPHA DAY MD on Nov 17 2022 7:41AM EST [id number] ACTIONABLE Invalid Interpretation Code [facility] MRI THORACIC SPINE WO IVCONo n 11-16-2022 MRI THORACIC SPINE WO IVCON * * *Final Report* * * DATE OF EXAM: Nov 16 2022 4:58PM [facility] 0325 - MRI THORACIC SPINE WO [...] be communicated with the ordering provider via [employer] staff message or phone message by [employer] within 2 business days of report finalization. --END OF FINDING-- Algorithms for management of incidental imaging findings can be found on the [facility] Intranet Sharepoint site at: [email or web address] [email or web address] nks/Managing%20Incide ntal%20Findi ngs%20at%20Imaging/Fo suellen/AllItems.aspx Manager Pool: BEBETO Transcribe Date/Time: Nov 17 2022 7:28A Dictated by : MOUSTAPHA DAY MD This examination was interpreted and the report reviewed and electronically signed by: MOUSTAPHA DAY MD on Nov 17 2022 7:41AM EST [id number] ACTIONABLE Invalid Interpretation Code [facility] Telephoneon 11-13-2022 Telephone [id number] Carrie Fletcher 1970 F Date Provider Department Center 11/13/2022 ILSA MÁRQUEZ MP OT Medical [facility]avi No family history on file Normal [facility] CNOVon 09-21-2022 CNOV Office Visit (SPNSMN ) CARRIE FLETCHER ([id number]) 1970 F Date Time Provider Department 09/21/22 [...] PCP: Lon Ibrahim REFERRING PROVIDER: Bryce Lara APRN.SHOWROOM MANAGER SUBJECTIVE HISTORY OF PRESENT ILLNESS: Carrie Fletcher [...] or muscl (more content not included)... Normal [facility] No Panel Informationon 09-21 [facility] XR SCOLIOSIS 2V PA STAND/LAT on [...] and mild to moderate lumbar degenerative change. Manager Pool: PSCB Transcribe Date/Time: Sep 21 2022 11:58A Dictated by : BETH FUNEZ MD This examination was interpreted and the report reviewed and electronically signed by: BETH FUNEZ MD on Sep 21 2022 12:44PM EST [id number] Normal [facility] Telephoneon 08-27-2022 Telephone [id number] Carrie Fletcher 1970 F Date Provider Department Center 08/27/2022 ILSA MÁRQUEZ OT Medical [facility] No family history on file Normal [facility] Telephoneon 08-24-2022 Telephone [id number] Carrie Fletcher 1970 F Date Provider Department Center 08/24/2022 ILSA MÁRQUEZ MP OT Medical [facility] No family history on file Normal [facility] CNPNon 07-28-2022 CNPN Telephone (SPNSMN) CARRIE FLETCHER ([id number]) 1970 F Date Time Provider Department 07/28/22 BRYCE LARA OTTOWY During your visit today, we recorded the following information about you: Meaghan Moser [facility] 07/28/2022 9:50 AM Signed Pt called; states she had EMG completed on 06/06/22 at an external facility; she will notify them to fax it to [phone]. Allergies As of Date: 07/28/2022 Noted Allergy [...] Status:Closed by MEAGHAN DAVID on 07/28/22 Normal [facility] CT CERVICAL SPINE WO CONTRAS Ton 07-18-2022 [...] at C5-C6 and mild elsewhere. There is pzxg-zj-vjjihdgd multilevel facet arthropathy in the spine. Central canal narrowing appears at least moderate and possibly severe at C5-C6 and is mild at C3-C4 and C6-C7. Multilevel osseous foraminal narrowing is mild bilaterally at C3-C4, mild on the left at C4-C5 and afmq-sq-uttmdfod bilaterally at C5-C6. SOFT TISSUES: There is no prevertebral soft tissue swelling. IMPRESSION: 1. Prior anterior metallic fusion discectomy at C4-C5 out evident hardware complication. 2. Spinal degenerative changes as described. Multilevel central canal narrowing is most prominent at least moderate and possibly severe at C5-C6. Multilevel osseous neural foraminal narrowing is most prominent and agdv-ll-rqrwigdr bilaterally at C5-C6. Interpreted by: Ilsa Whitley MD Signed by: Ilsa Whitley MD 07/17/22 Final result Normal [facility] 07-17-2022 [facility] Telephone (NIQ) CARRIE FLETCHER ([id number]) 1970 F Date Time Provider Department 07/17/22 BRYCE LARA During your visit today, we recorded the following information about you: Donna Kae 07/17/2022 12:55 PM Signed Received the following record(s) via Fax. -MRI Cervical Spine WO Contrast Date 05/18/22 Sending images over through PACS. Record(s) scanned into pt's chart. Donna Pal Allergies As of Date: 07/17/2022 Noted Allergy [...] Encounter Status:Closed by MEAGHAN DAVID on 07/28/22 [facility] Rina 07-16-2022 [facility] Telephone (NIQ) CARRIE FLETCHER ([id number]) 1970 F Date Time Provider Department 07/16/22 BRYCE LARA During your visit today, we recorded the following information about you: Donna Pal 07/16/2022 1:33 PM Signed Received outside imaging/report: CD Yes Report No Images Uploaded: Yes Report Scanned: No Imaging received CT Cervical Spine Date of study 07/13/22 Verified imaging and reports were received. Forwarded to team for review. Donna Lara APRN.[facility] 07/22/2022 9:33 AM Addendum Called patient to [...] possible revision versus alternative treatments. Bryce Lara APRN.SHOWROOM MANAGER Allergies As of Date: 07/16/2022 Noted Allergy Reaction AMOXICILLIN-POT CLAVULANATE 06/29/2022 6 - Diarrhea OXYCODONE 06/29/2022 16 - Unknown ADHESIVE TAPE-SILICONES 11/08/2018 2 - Rash Date Reviewed: 06/29/2022 Reviewed by: Shelley Cheatham MA - Fully Assessed Reason for Visit: Scans [867] Primary Visit Diagnosis:Cervical disc disorder with radiculopathy [M50.10] Other Visit Diagnosis:Right arm weakness [R29.898] Order(s):EMG(NEURO/NI ) [9480013] Order #: [id number]: 1 FUTURE Prescriptions as of 07/22/2022 - [...] Encounter Status:Closed by [facility]SPNSMN [facility] CARRIE FLETCHER ([id number]) 1970 F Date Time Provider Department 06/29/22 1:00 PM BRYCE LARA SPNSMN During your visit today, we recorded the following information about you: Pulse Respiration Blood pressure Height 88/minute 16/minute 121/71 1.88 m Bryce LaraLEATHA.SHOWROOM MANAGER 07/01/2022 11:56 AM Signed SPINE SURGERY OUTPATIENT CONSULT This is an in-person visit. SERVICE DATE: 06/29/2022 PCP: Lon Ibrahim DO REFERRING PROVIDER: Lon Antonio DO [address] [place] [phone] Consult requested for an opinion regarding the [...] left foot drop [place] and now wears AFO brace constantly since. [...] C5 le (more content not included)... Normal [facility] Ambulatory Visit Summaryon 0 06-16-2022 Ambulatory Visit [...] multivitamin (Multi Vitamin+) omega-3 polyunsaturated fatty acids ([place]-3) Procedures Performed Urodynamics (12/10/2021), Cystourethroscopy and dilation [...] Appointments Wednesday. 2023 9:45 AM EDT With: Nicole KEENE MD Where: [facility] Patient Educationon 06-17-19 23 Patient Education Obstetrics and Gynecology Urinary Tract [...] this condition includes: ? Antibiotic medicine. ? Avyc-hym-iyvpwhn medicines to treat discomfort. ? Drinking enough [...] these instructions at home: Medicines ? Take nrux-rfn-zyhsxlc and prescription medicines only as told by [...] Document Revie (more content not included)... Normal [facility] Urology Office/Clinic Noteon 06-16-2022 Urology Office/Clinic Note Chief Complaint 3 month HPI Staff This is a 51 year old female here for 3 month F/U. Previous DX: recurrent UTI, incontinence without sensory awareness, asymptomatic micro hematuria and postinfective urethral stricture in female. S/P Cysto/UD done 07/21/21. Pt. is not able to give a urine sample today. Pt. states [employer] is working a little. Pt. states she [...] Information YECENIA FOLEY, Nicole Garcia, URL [address] [place] [address]- Additional Instructions: 1 year Patient Education Urinary Tract Infection, Adult I, Peyton Bond, personally scribed for Dr. Keene on 06/16/2022 10:19:29. . Documentation recorded by the scribPeyton meade, accurately reflects the services(s) I performed [...] (12/10/2021), Cystourethr (more content not included)... Normal [facility] Comment on above: Result Comment: Elec tronically Signed By: Nicole KEENE MD\.br\Date and Time Signed: 06/16/22 10:23 EDT\.br\Electronically Co-Signed By: Peyton Bond\.br\Date and Time Co-Signed: 06/16/22 10:19 EDT A1C with Estimated Average G thereseshaheen 05-26-2022 Glucose [Mass/Vol] 108 mg/dL Normal [facility] Comment on above: Order Comment: Reaso n for Exam Hyperglycemia Result Comment: PERF ORMED BY: [place] [address] PATHOLOGIST BILLING MANAGER DINO ANDREWS M.D. Performed By: #### B 12, BRAIN, CBC, FOL, TSH3, CMP, LIPID, A1C WT eA #### [facility] [address] [place] [address] HbA1c (Bld) [Mass fraction] 5.4 % Normal 4.3-5.6 [facility] Comment on above: Order Comment: Reaso n for Exam Hyperglycemia Result Comment: Incr eased risk for diabetes: 5.7 - 6.4 diabetes: >6.4 glycemic control for adults with diabetes: <7.0 Performed By: #### B 12, BRAIN, CBC, FOL, TSH3, CMP, LIPID, A1C WT eA #### [facility] [address] [place] [address] Complete Blood Count Auto Di ffon 05-26-2022 Basophils (Bld) [#/Vol] 0.0 10*3/uL Normal 0.0-0.2 [facility] Comment on above: Order Comment: Reaso n for Exam Hyperlipidemia Result Comment: PERF ORMED BY: [place] [address] PATHOLOGIST BILLING MANAGER DINO ANDREWS M.D. Performed By: #### B 12, BRAIN, CBC, FOL, TSH3, CMP, LIPID, A1C WTH eA #### [place] [address] [place] Basophils/100 WBC (Bld) 0.3 % Normal . [facility] Comment on above: Order Comment: Reaso n for Exam Hyperlipidemia Performed By: #### B 12, BRAIN, CBC, FOL, TSH3, CMP, LIPID, A1C WTH eA #### [place] [address] [place] Eosinophils (Bld) [#/Vol] 0.1 10*3/uL Normal 0.0-0.45 [facility] Comment on above: Order Comment: Reaso n for Exam Hyperlipidemia Performed By: #### B 12, BRAIN, CBC, FOL, TSH3, CMP, LIPID, A1C WTH eA #### [address] Eosinophils/100 WBC (Bld) 2.1 % Normal . [facility] Comment on above: Order Comment: Reaso n for Exam Hyperlipidemia Performed By: #### B 12, BRAIN, CBC, FOL, TSH3, CMP, LIPID, A1C WTH eA #### [address] Erythrocyte distribution width (RBC) [Ratio] 14.1 % Normal 11.9-15.3 [facility] Comment on above: Order Comment: Reaso n for Exam Hyperlipidemia Performed By: #### B 12, BRAIN, CBC, FOL, TSH3, CMP, LIPID, A1C WTH eA #### [address] Hematocrit (Bld) [Volume fraction] 39.2 % Normal 34.0-46.4 [facility] Comment on above: Order Comment: Reaso n for Exam Hyperlipidemia Performed By: #### B 12, RBAIN, CBC, FOL, TSH3, CMP, LIPID, A1C WTH eA #### [address] [address] [place] Hemoglobin (Bld) [Mass/Vol] 12.6 g/dL Normal 11.8-15.4 [facility] Comment on above: Order Comment: Reaso n for Exam Hyperlipidemia Performed By: #### B 12, BRAIN, CBC, FOL, TSH3, CMP, LIPID, A1C WTH eA #### [address] Lymphocytes (Bld) [#/Vol] 2.3 10*3/uL Normal 1.00-4.8 [facility] Comment on above: Order Comment: Reaso n for Exam Hyperlipidemia Performed By: #### B 12, BRAIN, CBC, FOL, TSH3, CMP, LIPID, A1C WTH eA #### [address] Lymphocytes/100 WBC (Bld) 35.4 % Normal . [facility] Comment on above: Order Comment: Reaso n for Exam Hyperlipidemia Performed By: #### B 12, BRAIN, CBC, FOL, TSH3, CMP, LIPID, A1C WTH eA #### [address] MCH (RBC) [Entitic mass] 30.0 pg Normal 24.7-34.3 [facility] Comment on above: Order Comment: Reaso n for Exam Hyperlipidemia Performed By: #### B 12, BRAIN, CBC, FOL, TSH3, CMP, LIPID, A1C WTH eA #### [address] MCV (RBC) [Entitic vol] 93.3 fL Normal 80-100 [facility] Comment on above: Order Comment: Reaso n for Exam Hyperlipidemia Performed By: #### B 12, BRAIN, CBC, FOL, TSH3, CMP, LIPID, A1C WTH eA #### [address] Mean Corpuscular HGB Conc 32.2 g/dL Normal 32.0-35.0 [facility] Comment on above: Order Comment: Reaso n for Exam Hyperlipidemia Performed By: #### B 12, BRAIN, CBC, FOL, TSH3, CMP, LIPID, A1C WTH eA #### [facility] [address] [place] [address] [place] Monocytes (Bld) [#/Vol] 0.4 10*3/uL Normal 0.0-0.8 [facility] Comment on above: Order Comment: Reaso n for Exam Hyperlipidemia Performed By: #### B 12, BRAIN, CBC, FOL, TSH3, CMP, LIPID, A1C WTH eA #### [facility] [address] [place] [address] [place] Monocytes/100 WBC (Bld) 6.9 % Normal . [facility] Comment on above: Order Comment: Reaso n for Exam Hyperlipidemia Performed By: #### B 12, BRAIN, CBC, FOL, TSH3, CMP, LIPID, A1C WTH eA #### [facility] [address] [place] [address] [place] Neutrophils (Bld) [#/Vol] 3.6 10*3/uL Normal 1.8-7.7 [facility] Comment on above: Order Comment: Reaso n for Exam Hyperlipidemia Performed By: #### B 12, BRAIN, CBC, FOL, TSH3, CMP, LIPID, A1C WTH eA #### [facility] [address] [place] [address] [place] Neutrophils/100 WBC (Bld) 55.3 % Normal . [facility] Comment on above: Order Comment: Reaso n for Exam Hyperlipidemia Performed By: #### B 12, BRAIN, CBC, FOL, TSH3, CMP, LIPID, A1C WTH eA #### [facility] [address] [place] [address] [place] NRBC% 0.2 /100{WBC} Normal 0-0.5 [facility] Comment on above: Order Comment: Reaso n for Exam Hyperlipidemia Performed By: #### B 12, BRAIN, CBC, FOL, TSH3, CMP, LIPID, A1C WTH eA #### [address] Platelet mean volume (Bld) [Entitic vol] 8.3 fL Normal 6.3-10.7 [facility] Comment on above: Order Comment: Reaso n for Exam Hyperlipidemia Performed By: #### B 12, BRAIN, CBC, FOL, TSH3, CMP, LIPID, A1C WTH eA #### [facility] [address] Platelets (Bld) [#/Vol] 219 10*3/uL Normal 150-450 [facility] Comment on above: Order Comment: Reaso n for Exam Hyperlipidemia Performed By: #### B 12, BRAIN, CBC, FOL, TSH3, CMP, LIPID, A1C WTH eA #### [facility] [address] RBC (Bld) [#/Vol] 4.20 10*6/uL Normal 3.60-5.00 [facility] Comment on above: Order Comment: Reaso n for Exam Hyperlipidemia Performed By: #### B 12, BRAIN, CBC, FOL, TSH3, CMP, LIPID, A1C WTH eA #### [facility] [address] WBC (Bld) [#/Vol] 6.5 10*3/uL Normal 3.8-11.6 [facility] Comment on above: Order Comment: Reaso n for Exam Hyperlipidemia Performed By: #### B 12, BRAIN, CBC, FOL, TSH3, CMP, LIPID, A1C WTH eA #### [facility] [address] Comprehensive Metabolic Pane mal 05-26-2022 Albumin [Mass/Vol] 3.7 g/dL Normal 3.5-5.7 [facility] Comment on above: Order Comment: Reaso n for Exam Hyperlipidemia Reason for Exam S/P bariatric surgery Performed By: #### B 12, BRAIN, CBC, FOL, TSH3, CMP, LIPID, A1C WTH eA #### [facility] [address] Albumin/Globulin [Mass ratio] 1.1 {ratio} Normal [facility] Comment on above: Order Comment: Reaso n for Exam Hyperlipidemia Reason for Exam S/P bariatric surgery Performed By: #### B 12, BRAIN, CBC, FOL, TSH3, CMP, LIPID, A1C WTH eA #### [facility] [address] [place] [id number] [place] ALP [Catalytic activity/Vol] 44 U/L Normal 34-104 [facility] Comment on above: Order Comment: Reaso n for Exam Hyperlipidemia Reason for Exam S/P bariatric surgery Performed By: #### B 12, BRAIN, CBC, FOL, TSH3, CMP, LIPID, A1C WTH eA #### [facility] [address] [place] [id number] [facility] ALT [Catalytic activity/Vol] 12 U/L Normal 7-52 [facility] Comment on above: Order Comment: Reaso n for Exam Hyperlipidemia Reason for Exam S/P bariatric surgery Performed By: #### B 12, BRAIN, CBC, FOL, TSH3, CMP, LIPID, A1C WTH eA #### [facility] [address] [place] [id number] [facility] Anion gap [Moles/Vol] 10.6 mmol/L Normal 6.0-15.0 [facility] Comment on above: Order Comment: Reaso n for Exam Hyperlipidemia Reason for Exam S/P bariatric surgery Performed By: #### B 12, BRAIN, CBC, FOL, TSH3, CMP, LIPID, A1C WTH eA #### [facility] [address] AST [Catalytic activity/Vol] 13 U/L Normal 13-39 [facility] Comment on above: Order Comment: Reaso n for Exam Hyperlipidemia Reason for Exam S/P bariatric surgery Performed By: #### B 12, BRAIN, CBC, FOL, TSH3, CMP, LIPID, A1C WTH eA #### [facility] [address] [place] [id number] [facility] Bilirubin [Mass/Vol] 0.5 mg/dL Normal 0.3-1.0 [facility] Comment on above: Order Comment: Reaso n for Exam Hyperlipidemia Reason for Exam S/P bariatric surgery Performed By: #### B 12, BRAIN, CBC, FOL, TSH3, CMP, LIPID, A1C WTH eA #### [facility] [address] [place] [id number] [facility] Calcium [Mass/Vol] 8.7 mg/dL Normal 8.6-10.3 [facility] Comment on above: Order Comment: Reaso n for Exam Hyperlipidemia Reason for Exam S/P bariatric surgery Performed By: #### B 12, BRAIN, CBC, FOL, TSH3, CMP, LIPID, A1C WTH eA #### [facility] [address] Chloride [Moles/Vol] 107 mmol/L Normal 98-107 [facility] Comment on above: Order Comment: Reaso n for Exam Hyperlipidemia Reason for Exam S/P bariatric surgery Performed By: #### B 12, BRAIN, CBC, FOL, TSH3, CMP, LIPID, A1C WTH eA #### [facility] [address] CO2 [Moles/Vol] 28.3 mmol/L Normal 21.0-31.0 [facility] Comment on above: Order Comment: Reaso n for Exam Hyperlipidemia Reason for Exam S/P bariatric surgery Performed By: #### B 12, BRAIN, CBC, FOL, TSH3, CMP, LIPID, A1C WTH eA #### [facility] [address] Creatinine [Mass/Vol] 0.96 mg/dL Normal 0.60-1.20 [facility] Comment on above: Order Comment: Reaso n for Exam Hyperlipidemia Reason for Exam S/P bariatric surgery Performed By: #### B 12, BRAIN, CBC, FOL, TSH3, CMP, LIPID, A1C WTH eA #### [facility] [address] GFR/1.73 sq M.predicted MDRD (S/P/Bld) [Vol rate/Area] mL/min/{1.73_m2} Normal [facility] Comment on above: Order Comment: Reaso n for Exam Hyperlipidemia Reason for Exam S/P bariatric surgery Performed By: #### B 12, BRAIN, CBC, FOL, TSH3, CMP, LIPID, A1C WTH eA #### [facility] [address] Globulin (S) [Mass/Vol] 3.4 g/dL Normal [facility] Comment on above: Order Comment: Reaso n for Exam Hyperlipidemia Reason for Exam S/P bariatric surgery Performed By: #### B 12, BRAIN, CBC, FOL, TSH3, CMP, LIPID, A1C WTH eA #### [facility] [address] [place] [id number] [facility] Glucose [Mass/Vol] 82 mg/dL Normal 70-100 [facility] Comment on above: Order Comment: Reaso n for Exam Hyperlipidemia Reason for Exam S/P bariatric surgery Result Comment: [facility] Glucose Reference Range is dependent on time and content of last meal. Glucose of more than 200 mg/dL in a nonstressed, ambulatory subject supports the diagnosis of Diabetes Mellitus. ADA recommended reference range Performed By: #### B 12, BRAIN, CBC, FOL, TSH3, CMP, LIPID, A1C WTH eA #### [facility] [address] Potassium [Moles/Vol] 3.9 mmol/L Normal 3.5-5.1 [facility] Comment on above: Order Comment: Reaso n for Exam Hyperlipidemia Reason for Exam S/P bariatric surgery Performed By: #### B 12, BRAIN, CBC, FOL, TSH3, CMP, LIPID, A1C WTH eA #### [facility] [address] [place] [address] [place] Protein [Mass/Vol] 7.1 g/dL Normal 6.4-8.9 [facility] Comment on above: Order Comment: Reaso n for Exam Hyperlipidemia Reason for Exam S/P bariatric surgery Performed By: #### B 12, BRAIN, CBC, FOL, TSH3, CMP, LIPID, A1C WTH eA #### [facility] [address] [place] [id number] [place] Sodium [Moles/Vol] 142 mmol/L Normal 136-145 [facility] Comment on above: Order Comment: Reaso n for Exam Hyperlipidemia Reason for Exam S/P bariatric surgery Performed By: #### B 12, BRAIN, CBC, FOL, TSH3, CMP, LIPID, A1C WTH eA #### [facility] [address] [place] [id number] [place] Urea nitrogen [Mass/Vol] 24 mg/dL Normal 7-25 [facility] Comment on above: Order Comment: Reaso n for Exam Hyperlipidemia Reason for Exam S/P bariatric surgery Performed By: #### B 12, BRAIN, CBC, FOL, TSH3, CMP, LIPID, A1C WT eA #### [facility] [address] [place] [id number] [facility] Ferritinon 05-26-2022 Ferritin [Mass/Vol] 28.0 ng/mL Normal 11.0-306.8 [facility] Comment on above: Order Comment: Reaso n for Exam Hyperlipidemia Reason for Exam S/P bariatric surgery Performed By: #### B 12, BRAIN, CBC, FOL, TSH3, CMP, LIPID, A1C WT eA #### [facility] [address] [place] [id number] [facility] Folateon 05-26-2022 Folate 37.0 ng/mL Normal >5.9 [facility] Comment on above: Order Comment: Reaso n for Exam Hyperlipidemia Reason for Exam S/P bariatric surgery Result Comment: Linda te reference range: >5.9 ng/ml The WHO technical consultation on folate and vitamin b12 deficiencies has determined that folate concentrations less than 4 ng/ml are considered deficient. Performed By: #### B 12, BRAIN, CBC, FOL, TSH3, CMP, LIPID, A1C WT eA #### [facility] [address] [place] [id number] [facility] Lipid Panelon 05-26-2022 Cholesterol [Mass/Vol] 192 mg/dL Normal 140-200 [facility] Comment on above: Order Comment: Reaso n for Exam Hyperlipidemia Reason for Exam S/P bariatric surgery Result Comment: Chol less than 200 mg/dl low risk Chol 201-239 mg/dl borderline risk Chol 240 mg/dl and greater high risk Performed By: #### B 12, BRAIN, CBC, FOL, TSH3, CMP, LIPID, A1C WT eA #### [facility] [address] [place] [id number] [facility] Cholesterol in HDL [Mass/Vol] 51 mg/dL Normal 35-85 [facility] Comment on above: Order Comment: Reaso n for Exam Hyperlipidemia Reason for Exam S/P bariatric surgery Result Comment: HDL CHOL ATP-III CLASSIFICATION Cardiovascular Risk HDL > or equal to 60 mg/dL LOW HDL < 40 mg/dL HIGH Performed By: #### B 12, BRAIN, CBC, FOL, TSH3, CMP, LIPID, A1C WTH eA #### [facility] [address] Cholesterol.total/Roseanna sterol in HDL [Mass ratio] 3.8 {ratio} Normal <5.0 [facility] Comment on above: Order Comment: Reaso n for Exam Hyperlipidemia Reason for Exam S/P bariatric surgery Performed By: #### B 12, BRAIN, CBC, FOL, TSH3, CMP, LIPID, A1C WTH eA #### [facility] [address] LDL Cholesterol,Calculated 108 mg/dL High 0-100 [facility] Comment on above: Order Comment: Reaso n [...] TSH3, CMP, LIPID, A1C WT eA #### [facility] [address] Triglyceride w/Reflex 166 mg/dL High 0-149 [facility] Comment on above: Order Comment: Reaso n [...] TSH3, CMP, LIPID, A1C WTH eA #### [facility] [address] [place] [id number] [facility] VLDL CHOLESTEROL 33 mg/dL Normal [facility] Comment on above: Order Comment: Reaso n for Exam Hyperlipidemia Reason for Exam S/P bariatric surgery Performed By: #### B 12, BRAIN, CBC, FOL, TSH3, CMP, LIPID, A1C WTH eA #### [facility] [address] [place], [place] [id number] [facility] Thyroid Stimulating Hormoneo n 05-26-2022 TSH Qn 1.91 m[IU]/L Normal 0.45-5.33 [facility] Comment on above: Order Comment: Reaso n for Exam Hyperlipidemia Reason for Exam S/P bariatric surgery Result Comment: PERF ORMED BY: [place] [address] PATHOLOGIST BILLING MANAGER DINO ANDREWS M.D. Performed By: #### B 12, BRAIN, CBC, FOL, TSH3, CMP, LIPID, A1C WTH eA #### [place] [id number] [facility] Vitamin B12on 05-26-2022 Cobalamin (Vitamin B12) [Mass/Vol] 330 pg/mL Normal 180-914 [facility] Comment on above: Order Comment: Reaso n for Exam Hyperlipidemia Reason for Exam S/P bariatric surgery Performed By: #### B 12, BRAIN, CBC, FOL, TSH3, CMP, LIPID, A1C WTH eA #### [address] MRI CERVICAL SPINE WO CONTRA STon [...] Ramsey Trammell MD 05/19/22 Final result Normal [facility] 1. Anterior cervical discectomy and fusion of C4-C5. 2. Multilevel cervical spondylosis, most notable at C5-C6 (severe spinal canal stenosis, suspected severe bilateral foraminal narrowing). 3. Chronic C4-C5 myelomalacia. [facility] RIS CONSOLIDATED EXAMINATION: MRI OF THE CERVICAL [...] spinal canal stenosis. No significant foraminal narrowing. [facility] Ramsey Wolfe MD - 05/19/2022 EXAMINATION: MRI OF THE [...] bilateral foraminal narrowing). 3. Chronic C4-C5 myelomalacia. [facility] Phone: MRI CERVICAL SPINE WO CONTRA STOrdered By: Ramsey Trammell on 05-19-2022 [employer] Phone: MRI CERVICAL SPINE CONCEPCION Madrigal 05-18-2022 Radiology Study observation (narrative) SIDNEY SERRANO DICOM [employer] Phone: Telephoneon 04-08-2022 Telephone [phone] Carrie Fletcher 1970 F Date Provider Department Center 04/08/2022 ILSA MÁRQUEZ MP OT Medical Pavi No family history on file Normal [facility] Clinical Supporton Clinical Support [id number] Carrie Fletcher 1970 F Date Provider Department Center 03/06/2022 ILSA MÁRQUEZ MP OT Medical Pavi No family history on file Normal [facility] Coding Summary.on 03-02-2022 Coding Summary. CD:[id number] G h0bWw+PGhlYWQ+IZ9YRGK kR70juHThmG3MA0hRBD3K IWMZAQTGRH7VXL0dwCU7C IuoV4KgvtRy QafzbQXnGR81DQr3KCP5t McwTOlyiQ2pmSFkV5d2Ut XwQK29pB43CNmsXSVuJmV 3LjZpbjsgbWFy M4omYrGozPVkPqy+PHRhY mxlIHdpZHRoPScxMDAlJy WyqXdhND4fZm5fYMXeRYI vbGxhcHNlOiBj x5waPGVqLKbuXP7lyKdnO 3AmnCR9KRBke9p2Rc12fT I+AHBjFPC1pEcaHVcgf92 4DnEzx0nsOMD8 zPKvVVadEDL0U23pn0U7Y FGdWFTkOSK1eCQ7tN0orW rwzqfgP0PjqEPcSxB0MKV 7dPCupB9rkOyu vjoqwE3sTso+P62RKF0ZL YJTBA9XQwg2W5YcDhfzaJ I+BO40WALyGT93tVIjzEY rf6vyuGs3TqJt HDUoXGH2tEsvIFooz0FcP QQuE52foUHts0M5IFPttO fmoJLlKjJojMS8nC3jCWw dxjqif7taaqlq Eokab2svzy10aS95S53xK ZiwHZPcBYC0MTRzBFYmaV stvo8kmA2hKx0+TJvtj1p aq0tfzHw2GbIo DOJrjkQhpTuxDOY0t5LxZ q87P0MdmZmtn6JeEvu9de 22iTDla4P2uKM3DLsfWVG zhR0vFIrrXuH0 VUYsScOloV59vWXaTWtaC t2xbKbeuSqdYL3oCXLrfy rkNPRhwA4cJDGleYKqkZx oEU3cBDNzwqxs h686ZmLxKEB3KDDgiEKbK 4PutN5nPdYdRZHaDSZmI4 BdmAGoBOsiH158AIpiXxH 1YQHvwiUqV4Zl HVBgzFhsHfR8f9G6Du8Yb 8PeswdmHQQ4QMbuGSXcWt KlYjFiOoL0K3ZaVeg6HBN noTqyQN1hG4Vu RPUnrfvgkgszuED0EQAnT LTaeQ23pNPfPXroTp7rc6 Q3m113TTEyXUTskB42Qh3 udDogMTBwdCBU pQ2kdyoua0qixsidHtMwN XOzFNf3POv4BZDziWdhNk QkLMM2GhA3CFX8oXXhgS0 reYcrmqjkiA2p Oyc+C72rgH7dCTW9GFY5b qreGQQxeeIiCI82HZ34W4 RyPjwvdGFibGU+PGRpdiB pnVyuJD6sZyKj j1xwh2XfXVyoS0WxTNUsA LzqAew9DUOmHVB1fZI6iN 4cUWKlAKhyu9Z3yHX7O3F wygKroh5oi7zz QJTsLRwzF63ijXJpt5G9O GTkdCU3FYCguKgpHyAzsY 93Oyc+VVOckTsoc7HvWbr rm0vke6uoxIb8 LsHzSVHzkvAvnHuaNCC5a 4HnJu48E89jKVdeMTSbHR MdIFJmCILymBfqmw8jfH9 wIi8+PGNvbCB3 eYB7vG6lEMEaQxW0HScgE 653RjRozKKwQzzrz9gxw0 rxlZa8XkPfVFMhojWetQw cSMP3p4LzUp55 H36gLDauLYDmRDAeCQByS GSqcJzutr4ojG3jJi2+PC 7qh1iemw19oZ18jXY+PHR uKCJ1rIjrHYkv PSErnE1rWEdwBpL6RODtW cMcfE24nKCcGRxsEa9zlA oplMagNB0cRDOdaeoni99 8UtJlh6feFXJd gPArIRzxROR0L54ej5W9G EVvJFApTGV7oQU5sN0xbF lnbjogbGVmdDsgdmVydGl sMRsvXGdsL914 IHRvcDsnPlBhdGllbnQgT dWkSXn9M6PmKva6IJJkbR mnRL8tnIAvGVugJc3yhTb uwNoaRC8aJPGu wpxrc444NlEoh6doQUVts YEcAXycSPI1N35uj0N6GO TfOGAcWZT1xQP4aJ7aoOb nbjogbGVmdDsg uuPozXotBYrvSSunL283X HRvcDsnPkJpcnRoIERhdG J9QQ20EY29cEQsp0J5wES 4M8AwIZAxjuuk pqtcvTL8WUTdUGRdsR91M l4ymRmhLs6eGYPiGOX0UO EsnMPbO4PdbU0bMwFgLIE yEJHtS4GhrBJx PJxqG178PXfqUsR5GQVkg uFmJ5FiZROkwEcbEyW4o6 V2To3QW1V2BX26QA08rDG kk4B8wHW7X7Xl WZTyhoyptvhotZH8DDXmJ RVmgJ19Ac1orFdoBs4jCL CuXQD0BPWqkWTmD5YsfD9 yOiAjMDAwMDAw M2TznKTbLPkbT045GNolK rP0BYKfknReP4ZiQKBtnY zkArC5e1E7Zg5TOKl2OU7 4GP07pIHtu6U9 gEW8L4LbOBXyyaetoobad SN8USLwMRYreQ56Yq7msR jpDo6hIBVkPPA2DDEfgFW fH5KqsV6nCrFz HGOlUOGgC8NnbKPoSMpsO 060ZCxaNdD3JIKfktLkJ9 ViSOCbiFoxJaQ3e7W2Hm9 AGXTtPD07RVC4 lQL0PR49JF04O6KeMiehk GFibGU+PHRhYmxlIHdpZH RoPScxMDAlJyBzdHlsZT0 nMe6tEOHpSFBh mRmrrNEaZcUyf5kwGLHtP IeyTN5ezAanE9UuySH9SX Kun2u1Za65J48gN3BdwXL +GJNlhBV0wBX2 pC4hMoJcKfI6FZpdM525W aUddYJhGvqyt3cvs4xaiF h8VeP0DOTtkuSctBwrKIF 4e5CuSj69X98v IHdpZHRoPSIxNSUiIHZhb Ycroe3ndP3yOo2+PGNvbC A7hYP7sQ0qWzSyWpW4UUa eX000ZfNmxAQh Shnby8xze7ykkLu8NwDwH DMuvkYzhFgzLPW5f4AxYk 24E6HhkNxaw6MqCnn3aa3 7wAGvd2U8dQF9 O1MmKAVqosqjgUJqmVsbF D9kDDRbgvgwUUWqeC6zLC EwH6e3GeYmYbH8CEtoD7B aakO3ZCFtvYMe BTkhBNK1Z45au4N1ZTRrB KYuWWI4rAE3wW7ybOfwrf ogbGVmdDsgdmVydGljYWw qWUbbS837QZGj yEujYLNvgY3fNGSadJUxy RjgUE8gZPLcoccrJfBLHQ osIERFTkEgTTwvdGQ+PHR sJVN5iBrrICnl ZUWrnA5bBFEwL5t1FxBbD wD6ZUwqC8MkFGXcctajMr 68aN1qAiKiBcN3VWruQ9O pcvT7GYFibXWo AIpwMIP1J05dj2G4LYZcH BVcYZI8vEY8aY4gwQlwgk ogbGVmdDsgdmVydGljYWw oOIgjD434TLZm dVjuPxC0KwN9CdO5ZmI4T 9OgBco9QKJxsJmhZI0ojK LsZEigDl3xdGirsQagNH2 wNTBpbjtwYWRk fJ1pAJJjgQVbgTboST3qU HHfmujnh113TzKxJBK2ZT XgtJSxW3AphH1bUnMlRGB qMHUcF8GbqUKf CFhpW502XMifKhO7HFMml lPeN5YjJPOsvBeaZeO7k1 W6Cp97NfAKBQWqfrpovSX +QNAvTVX3zQav ZKqgXVByvX3jTMKfV0z2X pPcJoC4SZhdM3OdAWGaxm ebAw15wL2tBuFrExX4QLr bS8UuujK1NBMj eAPrNJwuDXR1S07vk6H7N SNrEBJqGJJ0xZV7yQ0fmH lnbjogbGVmdDsgdmVydGl vVSxyOWphZ110 IHRvcDsnPkZlbWFsZTwvd GQ+HUChEYL6mNioSBhvHK DmkL7qIGBuV0h7JbSvNhI 3HHxgZ0PrKQIr qfcaVh88aB5zNxFmJzP2W TvwZ2BtgaR5BQNhaIIiPS nrUYM9M95wv1I5GEFeJFX pWKB9eTJ3fW3b bGlnbjogbGVmdDsgdmVyd CjiCVsdWHueN677EYSrvT gyXflpUbORlg9hTC8rPdl vdGQ+CK53gx10 E9NcHypoUhl6FORiZGT3z AD5zM2vWJHkIGfmh4A4zD M7P6HbfaHtmy3cn6ofIND jFFcoL67enJKc b5V6ESNtrUN9ECZpnErgF iFhuA09Boc+PGNvbGdyb3 IcUapan4gps1ghoPu0XkU wJSIgdmFsaWdu ARI7w4ZhIy42L04rMLpcW HRoPSIzMCUiIHZhbGlnbj 0aqB7mTu9+XLWjmKD3iWN 3wE7qTcGdRnH3 RTmvO650JmQdsUIrWrsee 4aix0wzlRg8CmCfPBQooh VnrAxqMVQ4d8YhDq03G4W voQmcm8WfIbm7 hu87iXRlh4E3uQB3M9OnE FZofhotpFVckBncMB5bJR PihptrGFRfmJ9pQTLsQ7g 2ArDvZsL0QHgu L3DwkwO6HLSjbOEvXZNvw GXSjR8bmknjs8gvrmbhIk GiYSZbONt7GBy7CSRzmAy jYfJvVZS1ZpO1 JQN9yNVrcI4zdOhiohisl G9wOyc+PJs9s7eojSJfTF 6ezKD7IP76KN95wOPjw6M 3eZI1C4JcKPXc exggydwnjPS5FYQfSPBwj N53Ma9glPxaRs7cWATnYF U9HKNspUFsB0RrcY3oSiL jULSwLQOzO9No oJJrTCdeP152TMovWsS7I HXtqvMvP3EnKICjvTmdUe H2d3V6Ds6LSH83ZY20XH7 2kLIos8X2iLM6 F1PkPRRdlkmklavmbNO1P BBjAAXmsL10Wj0hkQlxMy 9yQYQeSYG2GIViwULnV4N opA2uRzEoGYZw GULdM6LthUFhTFhwT221K CxkQvW2QNYfknAhR4HoPU BdoNbmQpY6a9Q8Nr0NRr2 9EN66OW13zEKi h2G9iDD1F2TdCSRelgsjm kjaySG2ESLoXPKmkC91Qf 3jnRxkGi9sQZLzGGT8MNX itIToF0KigB3n HlNzWXYfUDRwB6PonBEpG FcfJ956OUpiZvW0ZFKsog OiG3UkQKMckVmoViC9f3G 5Fu9GEEtoltg5 K3MzFjvaqVD+GO92NLRnV M50vDJyySNna0ikvSh0Vy AhIIAnIOB4xRkmWNred2W vBVObG38pqGGu c2U6 (more content not included)... Normal [facility] Lab Reportson 02-27-2022 Lab Reports [id number]#1 .00CD:[address] [facility] C Urineon 02-26-2022 Bacteria identified Cx [...] Locations R1: This test was performed at: [facility], [address] [place] [address], [address] , , [facility] Comment on above: Performed By: #### 2 [id number] ####[id number] [place] [address] Ambulatory Visit Summaryon 0 02-24-2022 Ambulatory Visit Summary CHANCE, CARRIE M :1970 Visit Date:02/24/2022 Ambulatory Visit Instructions Your Diagnosis Recurrent UTI Incontinence without sensory awareness Asymptomatic microscopic hematuria Postinfective urethral stricture in female Anticoagulated Tests Performed Urnls Dip Stick Auto w/o Microscopy POC 88983 Your Care Team Attending Physician - Nicole [...] multivitamin (Multi Vitamin+) omega-3 polyunsaturated fatty acids ([place]-3) Procedures Performed Urodynamics (12/10/2021), Cystourethroscopy and dilation [...] Nicole KEENE MD Where: [facility] Patient Educationon 02-24-19 Patient Education Obstetrics and [...] this condition includes: ? Antibiotic medicine. ? Hxwt-cpb-kaxbeko medicines to treat discomfort. ? Drinking enough [...] these instructions at home: Medicines ? Take kbch-egb-mqfwjhe and prescription medicines only as told by [...] This in (more content not included)... Normal [facility] Urology Office/Clinic Noteon 02-24-2022 Urology Office/Clinic [...] Contact Information YECENIA FOLEY, Nicole Garcia, [address] [id number]- Additional Instructions: 3 mos Patient Education Urinary Tract Infection, Adult IPeyton, personally scribed for Dr. Keene on 02/24/2022 12:57:02. Documentation recorded by the scribePeyton, accurately reflects the services(s) I performed and [...] sensory aw (more content not included)... Normal [facility] Comment on above: Result Comment: Elec tronically Signed By: Nicole KEENE MD\.br\Date and Time Signed: 02/24/22 13:22 EST\.br\Electronically Co-Signed By: Peyton Bond\.br\Date and Time Co-Signed: 02/24/22 12:57 EST IntraOperative Documentson 1 03-30-2021 IntraOperative Documents [id number]# 1.00CD:127 [facility] IntraOperative Documents [id number]# 1.00CD:127 [facility] Ambulatory Visit Summaryon 1 03-01-2021 Ambulatory Visit Summary 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1970 Visit Date:12/30/2021 Ambulatory Visit Instructions Your Diagnosis Recurrent UTI Incontinence without sensory awareness Asymptomatic microscopic hematuria Postinfective urethral stricture in female Anticoagulated Tests Performed Urnls Dip Stick Auto w/o Microscopy POC 73360 Your Care Team Attending Physician - Nicole [...] multivitamin (Multi Vitamin+) omega-3 polyunsaturated fatty acids ([place]-3) Procedures Performed Urodynamics (12/10/2021), Cystourethroscopy and dilation of bladder (07/21/2021), TURBT - Transurethral resection of bladder tumor (03/11/2019), 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 Discharge Vitals Height 187 cm Height 74 in Weight 110 kg Weight 242 lb BMI 31.46 What to do next Scheduled Follow-Up Appointments Wednesday 12:15 PM EST With: YECENIA FOLEY, Nicole Garcia Where: [facility] Patient Educationon 12-31-19 Patient Education Obstetrics and [...] this condition includes: ? Antibiotic medicine. ? Nfbd-qda-nlgplkb medicines to treat discomfort. ? Drinking enough [...] these instructions at home: Medicines ? Take mtam-gzf-pcqajdn and prescription medicines only as told by [...] This in (more content not included)... Normal [facility] Urology Office/Clinic Noteon 12-30-2021 Urology Office/Clinic [...] than what it was. 5. Anticoagulated (Z79.01: prison (current) use of anticoagulants) Eliquis therapy. Patient [...] Information YECENIA FOLEY, Nicole Garcia, [address] [place] [address]- Additional Instructions: 2 mos f/up to [facility] Patient Education Urinary Tract Infection, Adult I, Peyton Bond, personally scribed for Dr. Keene on 12/30/2021 09:57:23. Documentation recorded by the scribPeyton meade, accurately reflects the services(s) I performed [...] culture positive Neurogeni (more content not included)... [facility] Comment on above: Result Comment: Elec tronically Signed By: Nicole KEENE MD\.br\Date and Time Signed: 12/30/21 10:01 EST\.br\Electronically Co-Signed By: Peyton Bond\.br\Date and Time Co-Signed: 12/30/21 09:57 EST Physician Orderon 12-29-2021 Physician Order [id number]#1 .00CD:[address] [facility] Coding Summary.on 12-27-2021 Coding Summary. CD:[id number] G h0bWw+PGhlYWQ+OD5HHFE qF97clPVyyB3HA6zQBK1J VIXOKWWEJE7GXA4ejSY2S WpoX7BgcgAd XlxjaXYdLM23NTv9XEW3d VovEIwfiG4anGBzV9h5Za ZvCT87qE39JKfvSLRqSyQ 3LjZpbjsgbWFy D6bxXuUysQTxCvh+PHRhY mxlIHdpZHRoPScxMDAlJy XipHnbMD4kJx5qSSDcVSW vbGxhcHNlOiBj d7gcYEAnAUlyNX5duOvgF 4VedKE4MDIst3h4Yq67xC I+IZYuCGA8tKfxPSerz71 2JzZve8kzLVG3 zTHyYBooISW7R36mb9H1X KDiHANnCUI0fQU9iB0ojF ywujkwP9DfaSCqSaW5QQN 1zNZfcB7ggTbx npvscP2kHad+H08CBD9IS OTIRM2IXpo8P5HaHscdkO I+RB33LCSgHY60lCAyyVB wx1djeFq5QzIj NQLlSOS5gVxvRRfta4QaC TDfP59mmXTmb1M4LLHjqH rrmOHjBtZdsBQ7hY8lKBl ozchml2xejelh Lkpnf8ibvl81hY52W57sL WxjMZPpSXB3CEEiENYxxV vyqe7goL7hYi9+DHwjp1y pm2xgpMq2ZxJb NWPgsmNbbVnhUEW8q4WrF y52P6RgaIsso6CiZto4bt 96eGXca0U0lIQ6CMzcJTW kcR8iAAdsZkL9 FJTgXxHjbQ62hIBgACgwZ p2cnQlrsMegJT2xBBLcob ghMFBcdN2qTVRvxTAzgGt vVH7dCMHujjbc g529HwFgIML9SGSyjMJaA 5RwiO1xJiQeRRInZDXwN2 AiiLRrYGauJ582UTfnGyO 3OMQebvDqR7Vz PZIbhEmuIuX0b4M1Bi0Rf 8IhnjotGBD5VVnnCCKwBx L6EfAwLvM3S3MwVxt6MAC vtKyxTP0tD5Ue QVQwvkawgthzhGB0VCTlY QLctH21aKRdHIpoJq7ae2 F5c253DJJqGYHwgI24Nc2 udDogMTBwdCBU mX5othrfe9nnvpjlZhEbT EWuQPo4VRm5VJEjkWsnZc YvTOH8SuK1DPR9rATrhQ3 rnCzanjvhyQ2r Oyc+J35awQ0cELQ5JJB0b qhgDMWtdzHzIP56MS98R9 RyPjwvdGFibGU+PGRpdiB juPlvKF4uCeEs s2rjt5PrUPkoZ7GaGWYmR AjcJxl6INPvCXJ5aRZ2zE 9lGTNoQRhhi4E9eQY1V2L hcpPazy9cx5ep FXFoGPciZ06kaBFko6H9V AQxwGH9PKCwbLqeMrHlgQ 93Oyc+NDCrrHpem9DfNkt mw9rbf7yovGu6 MgJrBGYxwuVnpJfqGZE6t 9AmGy59I19hQFzaRBOvCS TjXKQeRIAckNdexf4lwK0 wIi8+PGNvbCB3 sTE1xU0kJKTcQaR2KUmrW 033AxLtkNZzXmivc6eeq0 hbdJz0BuKdJKXespArlAg zRUR3s3IfGh48 R53nUNwdMRPtVVGcKTHjU IPlaLveyi1xoB7mHs5+PC 9mc2tptk49cT95mWS+PHR oEVL1uXxpXIpx IJJerZ5jFRvsAdW3RVWfK zQwbE26oUIaICxzWe5dzS nhwVxdUB4wXVCgkxhdv53 0JiIiq7ldDUJf kYOqGMawNRC5O00bn7W6A OSwYAEjTUI6rOK7oI7urI lnbjogbGVmdDsgdmVydGl nWWwbSSrhZ805 IHRvcDsnPlBhdGllbnQgT yFvQIx3B0PlOto5KCLpkW qfYW5hqYBiLRakOr5yoMb pyCvnOL8pROSp uicbq070GbWxq1yyDEBsp WSmSZaeLIK2F47xw5Y1SZ BzAOLzXNA2yFL6uQ8rdQf nbjogbGVmdDsg zgKbwXzgIUriYCzcG922W HRvcDsnPkJpcnRoIERhdG E2PY15VI85dMJtt0T9lBV 8Y4YsJXFwbpkr ckvaoDO5SLFnVSCwzE46H t6osRaiXs8rFDZnXZR1ZQ HkdDUaA9WgcR3rLaXaJIN lQCQrJ5MhoBAe QWywN524UQgmCiX0JUWjv zTnI9NoDUKfaGzvHcY1h5 V5Ra2AJ3Y6NB77DB53kWU xk1B9zGO9J0Kk AYNfkoylwwvcdFK4QZLsO LZvuG16Eu2eoScrAv7iEN HoJAF0LEFegPYwW6ZlgI7 yOiAjMDAwMDAw Q6MwjVGpLTqrH803FRkmC uA6DNKrczYgX0KzEWAnhZ ciYmY0a6W4Pj5ARRx4DG5 3NZ36uHXcj9J3 tJQ9P1HaZXStqprvodxss TA4MZYvLJHtyR62Kq5jzH lhKl6eYOKpJUF2YAKoyRP fY1DvmX2cRlXu WJGbHRIkD9TnrYBlDGteU 994ATtmYwO9CLKnkhRmA7 XjOVEqrTazJtU0m3F2Io2 HHYIpQI12RTD0 iHQ3AU43BD98G3YsZfofo GFibGU+PHRhYmxlIHdpZH RoPScxMDAlJyBzdHlsZT0 xBn4yXUQtDSAq vZwreKUuHiCga1zfDVPxI CmiNL5evEgzK8HixZP1CR Fvm2k4Ut99T19aU7AliYY +OBKxrFV8fDA3 iN3sVtYeDzM9ACyzY568K wUzuTCuLmwea3zzg5xmqO u1LaB3IMDbnmLrqJkkLBP 6y8FdOb30X26a IHdpZHRoPSIxNSUiIHZhb Bkeob9hgI3xHv5+PGNvbC Z7yKS3iR6wTuExClY4PSl wZ821GkEejWQi Bzscd4jgi0ehsRn6SgVcH OHfenMipKhwUYC5p1LdZd 96P0DbzRsvj1XkRkb5bc1 2iVJob9S6yMX8 U7OxDKEcpcdqyTIpyLmfI N8iUQWpezviORAawF8iPX SgZ4o5UeOcRyN9YXwwZ3T czqM5GCCerYPk RInxTNY9V69nd4L6MMXmG QBnAHN4nTJ4hJ3nuJnowv ogbGVmdDsgdmVydGljYWw rQGeaL298WIVt eUwgCOQgmC7cBFInnZLus EuvMA8xLEJommcyRhUWOA osIERFTkEgTTwvdGQ+PHR bYCN3hDqfVQww TTMzdO5hZREcK2n5MwYgR jN1ARcsL8XdZLWzrrpkDc 02eH5kVfMiXbN9XCikJ8C tjxY1TFOviNLp WAzhFEX3G06pn2L3XHEfT JZyORG2dNL5iA8hdJvsph ogbGVmdDsgdmVydGljYWw zMBgbC535UQKf nDwaXsQ4QxJ3LzE5TwO2Y 5RySpl7CBChuXunBU9ruY HgDKtrNi0koYmfcRreJS9 wNTBpbjtwYWRk jN7yNHIdmBEtbSbgSE0iB PErhoejk676NgWtJSS3QW JweNDrB2NbxC4zYtZuJSV iFNCdJ7PqgVKy BAuzE620QFnwWzI1XROok oOkK0OsNWEnxEphNgR5k5 Z5Nm40NjVSPVGneskvjHF +XXDoPPE1zVgm KSlqEJJqxS4hLDBoV6f0F tKtOeO9DAnkX9LeQLLreb qaBz71qK4cOdUmWwI4ANa sL2RfymD0SCXz sHTqEVoxEBS2P45br2F1C SZwZORhPPT4bVL8dD8eyA lnbjogbGVmdDsgdmVydGl qTHyqDJkuX923 IHRvcDsnPkZlbWFsZTwvd GQ+VHUsAHX4lIncWQovLI PhqG1xEOVgT8j4WfRgKyS 2ZHwyM7YeJIDz jwunBi76xR1gGjIlOpS6Y WzuW6KvcgY6LMYlmWEiPO ycTSF3E20ug3V0SGLqZIB qXXJ0tQH6eJ6j bGlnbjogbGVmdDsgdmVyd KtsIQdwSKpmJ170LVLaxU erVmcpQkTRxt7qHN5yQdm vdGQ+QO21kk58 B3OyXtmjRlv6DQJpZJP0d UF4vV5xJDCpRUzlw9R3hQ Z3Q2JgwxZrex0cq9hnAYA yUSriA52dwTLo b5Y4FAQjwGO3IXOskDrlM gKxmP37Woe+PGNvbGdyb3 WwAibdd9vzw9pgnTg1IwE wJSIgdmFsaWdu ARS9s5BuQk03A47jWUtyA HRoPSIzMCUiIHZhbGlnbj 4elZ6nTv1+IBVveXP2tNA 5eU2pTnHyPoT4 SCodX281VvQelKRcZwyle 4axk5mokWk4NdMcSEWdhy ZroQfnLPP8m9CbKn05O7J cfYzgj1KjWjm1 bu47uKFbl7W0xNK0D8GmJ EOuxvybsHWdxSzmWX1zXO LlhummVPXuoA6zQABeF0r 1McKnJvX9UPja M7DxuaF7VGWfiXBdIZAgc OALpG1urxgtt0hqttljWq PhZHVwUCw5YBv5BTLvvVj zEbNwIDW7XnL1 QIV1oVBpxD4jlAzqrvcux G9wOyc+KKj6e5iphSUqXI 5bzMV2GS54LB31oTOtq2B 2tOO6N5ShZSCv cgafpfruzVT4DLYgAPBbx A10Cq1ogZbtJw4aHMYfWR S9TJWqcWBwQ8NqyR2jEwJ kXJZnXYTgP0Zo gAKgRIscA685GXeiMkA6G MZcgxCyF5SgCJGhvRvgRl S4i0F4Gr9OFW59WS96MG6 7uAXvs6R9yKH9 Y7BvNVYninfqwmyneUO4E FZsLEAjuQ27Dl5npKvpRb 8sQIFmSKH7IJEtaSQiL8I bdW4nSsApFGFq CBGsR7WbrAApECxbF542W HxpLoR2TAItwqFjD4IyTL XhkLecKuM2p5T3Dy5TJg2 2EJ80FA26tFBd l5G6tRC2C7PuVLRhsdbof cwnoAG5ITJbGCYxtP98Xk 8muTroNo4uUVPbSIG2MTS esOOsA1JnjQ8v UdGcWBUcSRJyD6VfiMRhZ VcbQ276VPagAzV3EBVfik TwC5GyBPSfmEuvAnQ2t8T 6Lv6QNHmbvmv1 W0EdZactvVN+KU55BYYtE F96kBButHSri5ogeMl7Du WwTPGnPWJ4xZfjAUjuz9I uCEBvG59ihGBt c2U6 (more content not included)... Normal [facility] C Urineon 12-25-2021 Bacteria identified Cx [...] Locations R1: This test was performed at: [facility], [address] [place] [address], [address] , [place], Normal [facility] Comment on above: Performed By: #### 2 [id number] ####[facility] [address] [place] [address] Physician Orderon 12-24-2021 Physician Order [id number] .[id number]:127 [facility] Ambulatory Visit Summaryon 1 02-21-2021 Ambulatory Visit Summary CHANCECARRIE Luz :1970 Visit Date:12/22/2021 Ambulatory Visit Instructions Your Diagnosis Recurrent UTI 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 Discharge Vitals Height 187.0 cm Height 74 in Weight 110.0 kg Weight 242 lb BMI 31.46 What to do next Scheduled Follow-Up Appointments Wednesday 10:45 AM EST With: YECENIA FOLEY, Nicole Garcia Where: [facility] Patient Educationon 12-23-19 Patient Education Urology Urodynamic [...] including vitamins, herbs, eye drops, creams, and fgga-aaf-dvhsowk medicines. ? Whether you are or may [...] system diseases. (more content not included)... Normal [facility] Urology Office/Clinic Noteon 12-22-2021 Urology Office/Clinic [...] pt experiencing urgency, frequency. 6. Anticoagulated (Z79.01: intermediate designer (current) use of anticoagulants) Eliquis 5mg. It [...] When Contact Information YECENIA FOLEY, Nicole Garcia, [address] [id number]- Additional Instructions: F/u 2 weeks Patient Education Urodynamic Testing I, Sheeba Gunn, personally scribed for Dr. Keene on 12/22/2021 15:46:36. . Documentation recorded by the scribe, Kelly Craft, accurately reflects the services(s) I performed and decisions made by me. Authenticated by Dr. Keene on 12/22/2021 15:54:15. Problem List/Past Medical History Ongoing Anticoagulated (more content not included)... Normal [facility] Comment on above: Result Comment: Elec tronically Signed By: Nicole KEENE MD\.br\Date and Time Signed: 12/22/21 15:54 EST\.br\Electronically Co-Signed By: Sheeba Gunn\.br\Date and Time Co-Signed: 12/22/21 15:47 EST Coding Summary.on 12-11-2021 Coding Summary. CD:[id number] G h0bWw+PGhlYWQ+KM0QSWC zL39cxIEmgJ4WL1rQCM8A AVCJCAEHRY2VDS2hoQE7J EziC6IxetGx DbecfAZtNI64OEj4JEI9x BdzYKypcE5vbDWrW4g0Is UoPP18iB02XPpaQHPmDtG 3LjZpbjsgbWFy Y2dlKnWecKMwHmt+PHRhY mxlIHdpZHRoPScxMDAlJy EcpQbjLJ4eKc0rQGSiLOS vbGxhcHNlOiBj a9opEAHqBAipUB3ikKnrS 4JlzZS3OZWvf3b9Lk87gI I+MQQtLCB7oBpkYZuzq95 8OqZbv9toNGP7 yOBoATmvYXC3X14sw9E1G VPmYNMoMRL2mCS0gL4tjJ tlnzxmM3SyqXJmUoP4VEK 2xNVcuI4xxWeh tkhleH0vYnj+S55YIA1JP VPCWN5TRuk0L6QyTwtoaW I+OO31RLByTW03xNOaaAA dr5qrhGx1QkWy NAOkJTP3lKmsPZifs8TxB YYqE36jlXUas4V9EMTstJ ddxRVcHpMpjAO6lE9iBGh ujdzbg0gdeyfr Fxxzv0aewt52pS79W41xY WvgMQMyQJF7QIMjJWMzyM igxx9lpN9fXz6+LVdlt8f gm2futRl0AjHw OLGejvEprHtgNCM6g7LmW l34M9RxhQikm9UhOlw2ft 59tTGgv3P7fXU3TKsoEKO crP4vAUvmPoJ1 VDCfItYrvE02vVLzBEulB m9nwZihzYrvYW5mNDMgsv lgBVXteO8hMWUqqDJclRi vCI3eCGAufrsl e321YhMrAAB6THTthRAxV 6WruG4xKzUdPAEaRQVrF9 BqzHZkYXqvJ832CVfgDbX 1VNHravVpQ7Aa FGJnoVzfIoD2e2T7Bz0Ea 3SumdmbPND4UBxsCMOmCj DhXmAxJiE2P6VvXjx7LWY dnYpoUJ2vD9Qe QFSrlknnfepuuPN1EFMdD XWgeE12iMAlVDpiYr2rb3 I7n958RAHwOARpiJ26Rk9 udDogMTBwdCBU mA7deowua1tsraenBqChG VDzBWx0ZAp4BSBflYbcMi HvODN9YjG1RAW4qZEgrG1 bbBsmkjgyiU1q Oyc+Q29xgE9cSNU2SZT1m uzeLWFtxbZjQP53IP41O4 RyPjwvdGFibGU+PGRpdiB leSetFS0bDjJb j3jza4CqNPdnP5IbWZKpQ TwvZbp5BWVmGIA6vNL5zR 8xFWDsTZimj8A6nZC3E5B ulqFwdq7ga4xu NVHfWRmzP04wlEKli9Q1B VXkrXW8JYYdnZeqVpRsuA 93Oyc+LTDmhUuvf4BzJba zq9ehl3ugmOt2 GxInEWZejzSlgRsrZJK0c 4RcSe28A65kEPgzMIFzSR HdFSLhUWKlrIalth0zpZ5 wIi8+PGNvbCB3 uVJ0yA9gBMDcZuG9IZhcW 680TbGpaUIwQbklq7rem7 anuOq4AfEpKRMqqjJwwAn wBLE6w2EdRt97 P93jAAemKDLdIWBeFSSnN NDhqGbsgp5zgY3vMs4+PC 1ym4tvwv64zN96kHD+PHR rCSC6mRxxDPry PDFmhF9qHCgzTlX7MNBdA lMvfM16rOAsMFfxRs7cbV bfmZbwLU4nNBCbckamp70 9BqQup5ufMHPj oESiHYtsWPJ6H06xs1W8J AExZDJqJNU1rJM2fL9avU lnbjogbGVmdDsgdmVydGl fRKmhQTsbH502 IHRvcDsnPlBhdGllbnQgT xRiIPd5W6HtJpg9RDWorX peRQ6ysTJjJFpaMu7rxGm xnTnvMD5zUPYu thxty622HzLxs5ogZELpx QSnFTlyTDZ0S92xu6Z6MB KxBNNbFDD7fGK7wD5zoVt nbjogbGVmdDsg xyAekLvrIBmeXNjqV564T HRvcDsnPkJpcnRoIERhdG E1SH54BS25fURwa5P4mCB 0W7VcBBKkduim fwhypHG2YWHyNEFhuH90K m3baCetZu9mEWMbYAN9SR QgqPMoD0GhhS8rDyZrOZB jXVNeB3XcdIFz AScoW406HEygNgI3MBAnj hYdH6LmLKWqyHuiInQ9y6 X8Nd2HF8P2CQ62QH35gYD gn7T8iRD9O6Sg ZGLwhhcqgdjxySL1DTMuN HHriV32Xb9szJweUe5xSS JqGDV7SOFkoTJsI5UulY5 yOiAjMDAwMDAw F6NcyIQrLHnsG686WYuiT pH2BPTiipWaD4HfFURgjE ojKaZ2o3Q9Up9JFRi6AG6 1XB67kZWig9S1 fRQ0Y7FcLIGilbtbggelv QW1YOOtKYGgxR89Zu4hfJ seEh4hFJByNNJ2WSNafYM yF7GuvA8mJtJq ZTDkBRIlQ3GhhUJjACyqZ 579GYmaKvE3DZJcdmSgI4 ZzNKMhsYhrJyC7z5K9De9 WJISfRP98JRE4 wQR6HE77ES81C1VsGhrjn GFibGU+PHRhYmxlIHdpZH RoPScxMDAlJyBzdHlsZT0 kUz7iIERaAUDs rYodxAGeCrAea7dmRYSwL XksIX1hsXizK1CigNO2YO Lwh0m1Vz48N40kY7BswBM +RVTolVX8bMW2 nB5fDfTsEpE4GYzeF592C uJhcITlFofic8xfy3jbsS c2CsR0WMZyluGfdWybXRN 0u8ReVt54P35s IHdpZHRoPSIxNSUiIHZhb Sguxn0utN2aFb1+PGNvbC X8vGB5lO4vMbEsWgO4GGq lY583PwCeeYBo Gweha1hbq5wzkOk9RqXcR HTgqkSegKedYDD7d9YyMa 55A3OniXtar3HlJyv1lq7 2aASbk6V7uLW3 B3VcUXZsrzdysNYskJfiT R6gRGKcjfmnOUKxpM0qWG EvC4h1EpXeCfD8JYejO2G brzV3JCExrFHb YYppHRH3I08oi6E9CEOcM GCmFGV5vBQ3cC5qyLvsnr ogbGVmdDsgdmVydGljYWw pUSjwH434XHVi iPjjBLEgwF1mMNEobQSls LgeHD0eNUZyqomzVlYGPA osIERFTkEgTTwvdGQ+PHR iZZK5wMwuTXdp UMRoaG8wLSAwW0d7VcLvC xR4MNqsY2JhKKEldmvvWp 37kE6cKoDkZuU8TFexV4D cwzW6QRKhaIVz AHvtZRC2A26jl9V4CSQoG YMdWAU3iCM6jL8jeNjufl ogbGVmdDsgdmVydGljYWw xLYabU343FGDp lVpdJjG5GwF2GaQ7AmZ9L 5RqZzv8GXMzwVwnEH7qjL PyIUibWr6jkMetzIuaZD7 wNTBpbjtwYWRk mB1cGNMyoBQbpLlrXJ8qG EQnzergg613AkCjOXP9TE BvcCFnP7UfqR2lYcSmSQL iPMXaB6BksMEx MVpnW520SBjmAaU3GEVat oCyA1VqTSUoyPnjOaO8f9 Y2Sq50PeFFESIcayvutZV +RGOwIJF5nNha ZShyQYLmiZ3vTXPzQ3r2J jFaBzJ7XEojH5JkMJKxng blMt65vZ6pWrTuPtT2GSw yK8MrxnL1GVOe xNUlNEakWTA8Z60un8Q0Y HUlQTToCCU4iIC2dY1orZ lnbjogbGVmdDsgdmVydGl mMXjcQNjlK992 IHRvcDsnPkZlbWFsZTwvd GQ+HJLrNOE8fNvtXMvoXB DphM6mICXpM6m5McGfNbF 0NPypE8LtNXYo alfeUq97qG8zKwIfIgJ9M IviO6DiwzO6WDDecBWtHI gjDCN8V46mg8H1BKGbEQY xZOP8yPK8hI2u bGlnbjogbGVmdDsgdmVyd AotTFggKWvvF083BVTevN mbKi16pXKpmFdhviR8Z6H kPjwvdHI+PC90 DPZaXM30eITvnTUem5oyi Iz1WdGxRUJfIAJ4gAliVX bvh0ScQJRlD93plCTvx8L 6IGNvbGxhcHNl EiHmiTO8oD0dWWsarttch 6wrbuhrXpxcv4xhqy04aB 17V05zPNqkBKDrRBIlLGU rEDZwkMiqjo4r rD7cMp8+RDPclPM8oOK9y Q4oGoEpBdL7EEuwZ845Nk GchXGzZdhdo4tdr3epdXd 9IjIwJSIgdmFs aHgqKRR5b9XrAh27F82cD HdpZHRoPSIyMCUiIHZhbG laqs4iqG9nWq6+PB5vp0w kkq56rE22eXA+ NRYpXGI4jBmjYPekJCNjb B2hBFrfGeH5UWDrEeJsgS 04aLYrAWfoHt1bgMlskAh eET4tHJRepqjm s991DpIgp7zkHTVqiZMeX IcoYDZ3F55bk4X2EPPcXQ AjQEE6gNH1xI4pvRxysor gbGVmdDsgdmVy qGnuQMtvBLmlU001SDUdy QxbLyIieZOvM6eopwPAGD 1lOjwvdGQ+SGJmPIP7aTo vWKiqTPDeuY9y MZEbB6l9ZmAsDoV9AAenE 1YcljM4TYBbpJTxRNJxvN JEhV5crcvip9ozghpiQnG gFENiEEm2LNe0 VDHydBrrPhKiKKL7CkT0W WZ4xZCelR6mvUdkmorkzS 9wOyc+RklOOjwvdGQ+PHR zSGD6zAomJIvt JQEcpJ1vIQOaT0c1RbRyN lO6YSnlL8XevxU4CKKmnU QsTOPclEWRpS9mkerrd8u vcjogIzAwMDAw MIr8SLq8OBJjdZclVhYxI WU2IiO3HEI8zZMgaS0nxJ bjnroqhN7fKgx+TVJOOjw vdGQ+PHRkIHN0 uHipROioHBQqjD5oOQFsZ 8f0YdMtAaT4WOexE3Cruv U1WZIuqECbRUDmkOJRzX5 wzncan0upvepe XaBwOIXgTRf1DPr4AAOdq WnkKrOlTTS4CbY6UTC7uK YpmH5fuFnfvzwfzE0vYxr +XAK5NVF8GL21 WV48P3FbNnljjDFjhRN+P HRhYmxlIHdpZHRoPScxMD FzWsFtiNvcED0iZk5nYVI yLWNvbGxhcHNl OiBj (more content not included)... Normal [facility] Consent for Procedure/Surger yon 12-10-2021 Consent for Procedure/Surgery [id number]# 1.00CD:127 Normal [facility] Consent for Treatmenton 11-0 Consent for Treatment [id number]#1 .00CD:127 Normal [facility] Albumin [Mass/volume] in Ser um or PlasmaOrdered By: Lon Ibrahim on 10-16-2021 Albumin [Mass/Vol] 3.3 g/dL 3.2-5.5 [facility] Basophils Auto (Bld) [#/Vol] Ordered By: Lon Ibrahim on 10-16-2021 Basophils (Bld) [#/Vol] 0.0 10*3/uL 0.0-0.2 [facility] Basophils/100 WBC Auto (Bld) Ordered By: Lon Ibrahim on 10-16-2021 Basophils/100 WBC (Bld) 0.5 % . [facility] Blood hemoglobin measurement (mass/volume)Ordered By: Lon Ibrahim on 10-16-2021 Hemoglobin (Bld) [Mass/Vol] 12.8 g/dL 11.8-15.4 [facility] Blood leukocytes automated c ount (number/volume)Ordered By: Lon Ibrahim on 10-16-2021 WBC (Bld) [#/Vol] 6.2 10*3/uL 4.5-11.0 [facility] Cholesterol [Mass/volume] in Serum or PlasmaOrdered By: Lon Ibrahim on 10-16-2021 Cholesterol [Mass/Vol] 206 mg/dL 140-200 [facility] Comment on above: Chol less than 200 m g/dl low risk Chol 201-239 mg/dl borderline risk Chol 240 mg/dl and greater high risk Cholesterol in LDL Calc [Mas s/Vol]Ordered By: Lon Ibrahim on 10-16-2021 Cholesterol in LDL [Mass/Vol] 118 mg/dL 0-100 [facility] Comment on above: LDL ATP III CLASSIFI CATION LDL less than 100 mg/dL Optimal LDL 100-129 mg/dL Near or above optimal LDL 130-159 mg/dL Borderline high LDL 160-189 mg/dL High LDL greater than 189 mg/dL Very high Cholesterol in VLDL Calc [Ma ss/Vol]Ordered By: Lon Ibrahim on 10-16-2021 Cholesterol in VLDL [Mass/Vol] 38 mg/dL [facility] Creatinine and Glomerular fi ltration rate.predicted panel (S/P/Bld)Ordered By: Lon Ibrahim on 10-16-2021 Creatinine [Mass/Vol] 0.90 mg/dL 0.44-1.03 [facility] Eosinophils Auto (Bld) [#/Vo l]Ordered By: Lon Ibrahim on 10-16-2021 Eosinophils (Bld) [#/Vol] 0.1 10*3/uL 0.0-0.45 [facility] Eosinophils/100 WBC Auto (Bl d)Ordered By: Lon Ibrahim on 10-16-2021 Eosinophils/100 WBC (Bld) 1.7 % . [facility] Erythrocyte distribution wid th Auto (RBC) [Ratio]Ordered By: Lon Ibrahim on 10-16-2021 Erythrocyte distribution width (RBC) [Ratio] 13.4 % 11.9-15.3 [facility] Estimated glomerular filtrat ion rate (GFR) non- AmericanOrdered By: Lon Ibrahim on 10-16-2021 GFR/1.73 sq M.predicted among non-blacks MDRD (S/P/Bld) [Vol rate/Area] > 60 mL/Min [facility] Ferritin [Mass/volume] in Se rum or PlasmaOrdered By: Lon Ibrahim on 10-16-2021 Ferritin [Mass/Vol] 46.6 ng/mL 11-306.8 [facility] Folate [Mass/volume] in Seru m or PlasmaOrdered By: Lon Ibrahim on 10-16-2021 Folate [Mass/Vol] ng/mL >5.9 [facility] Comment on above: Folate reference ran ge: >5.9 ng/ml The WHO technical consultation on folate and vitamin b12 deficiencies has determined that folate concentrations less than 4 ng/ml are considered deficient. Globulin Calc (S) [Mass/Vol] Ordered By: Lon Ibrahim on 10-16-2021 Globulin (S) [Mass/Vol] 3.3 g/dL [facility] Glucose mean value [Mass/vol ume] in Blood Estimated from glycated hemoglobinOrdered By: Lon Ibrahim on 10-16-2021 Average glucose Estimated from glycated hemoglobin (Bld) [Mass/Vol] 105 mg/dL [facility] Hematocrit Auto (Bld) [Volum e fraction]Ordered By: Lon Ibrahim on 10-16-2021 Hematocrit (Bld) [Volume fraction] 39.1 % 34.0-46.4 [facility] Hemoglobin A1c percentageOrd ered By: Lon Ibrahim on 10-16-2021 HbA1c (Bld) [Mass fraction] 5.3 % 4.3-5.6 [facility] Comment on above: Increased risk for d iabetes: 5.7 - 6.4 diabetes: >6.4 glycemic control for adults with diabetes: <7.0 Laboratory - Chemistry and C hemistry - challengeOrdered By: Lon Ibrahim on 10-16-2021 Cobalamin (Vitamin B12) [Mass/Vol] 432 pg/mL 180-914 [facility] Laboratory - Hematology and Cell countsOrdered By: Lon Ibrahim on 10-16-2021 Nucleated RBC/100 WBC (Bld) [Ratio] 0.2 % 0-0.5 [facility] Lymphocytes Auto (Bld) [#/Vo l]Ordered By: Lon Ibrahim on 10-16-2021 Lymphocytes (Bld) [#/Vol] 2.3 10*3/uL 1.00-4.8 [facility] Lymphocytes/100 WBC Auto (Bl d)Ordered By: Lon Ibrahim on 10-16-2021 Lymphocytes/100 WBC (Bld) 37.6 % . [facility] MCH Auto (RBC) [Entitic mass ]Ordered By: Lon Ibrahim on 10-16-2021 MCH (RBC) [Entitic mass] 30.6 pg 24.7-34.3 [facility] MCHC Auto (RBC) [Mass/Vol]Or dered By: Lon Ibrahim on 10-16-2021 MCHC (RBC) [Mass/Vol] 32.7 g/dL 32.0-35.0 [facility] MCV Auto (RBC) [Entitic vol] Ordered By: Lon Ibrahim on 10-16-2021 MCV (RBC) [Entitic vol] 93.5 fL 80-100 [facility] Monocytes Auto (Bld) [#/Vol] Ordered By: Lon Ibrahim on 10-16-2021 Monocytes (Bld) [#/Vol] 0.4 10*3/uL 0.0-0.8 [facility] Monocytes/100 WBC Auto (Bld) Ordered By: Lon Ibrahim on 10-16-2021 Monocytes/100 WBC (Bld) 6.9 % . [facility] Neutrophils Auto (Bld) [#/Vo l]Ordered By: Lon Ibrahim on 10-16-2021 Neutrophils (Bld) [#/Vol] 3.3 10*3/uL 1.8-7.7 [facility] Neutrophils/100 WBC Auto (Bl d)Ordered By: Lon Ibrahim on 10-16-2021 Neutrophils/100 WBC (Bld) 53.3 % . [facility] No Panel InformationOrdered By: Lon Ibrahim on 10-16-2021 25-Hydroxy Vitamin D Total 47.4 ng/mL 30-100 [facility] Comment on above: VITAMIN D STATUS 25( [place])VITAMIN D RANGE (ng/mL) Deficient <20 Insufficient 20 to <30 Sufficient 30 to 100 Reference: Neema MF,Tico NC, Cindi ANGULO, et al. Evaluation,treatment, and prevention of vitamin D deficiency; an Endocrine Society clinical practice guideline. JCEM. 2010; 96(7):1911-30. Estimated GFR () > 60 mL/Min [facility] Comment on above: GFR estimated refere nce range: According to KDOQI guidelines, <60 ml/min/1.73m2 is sufficient to diagnose a patient with chronic kidney disease. Pharmacy Creatinine Clearance (Chem N/A [facility] Platelet mean volume Auto (B ld) [Entitic vol]Ordered By: Lon Ibrahim on 10-16-2021 Platelet mean volume (Bld) [Entitic vol] 8.6 fL 6.3-10.7 [facility] Platelets Auto (Bld) [#/Vol] Ordered By: Lon Ibrahim on 10-16-2021 Platelets (Bld) [#/Vol] 237 10*3/uL 150-450 [facility] Protein [Mass/volume] in Ser um or PlasmaOrdered By: Lon Ibrahim on 10-16-2021 Protein [Mass/Vol] 6.6 g/dL 6.1-7.9 [facility] RBC Auto (Bld) [#/Vol]Ordere d By: Lon Ibrahim on 10-16-2021 RBC (Bld) [#/Vol] 4.18 10*6/uL 3.60-5.00 [facility] Serum or plasma alanine swenson otransferase measurement without P-5'-P (enzymatic activiOrdered By: Lon Ibrahim on 10-16-2021 ALT No additional P-5'-P [Catalytic activity/Vol] 16 U/L 10-60 [facility] Serum or plasma albumin/glob ulin mass ratioOrdered By: Lon Ibrahim on 10-16-2021 Albumin/Globulin [Mass ratio] 1.0 {ratio} [facility] Serum or plasma alkaline yandel sphatase measurement (enzymatic activity/volume)Ordered By: Lon Ibrahim on 10-16-2021 ALP [Catalytic activity/Vol] 56 U/L 32-92 [facility] Serum or plasma anion gap de terminationOrdered By: Lon Ibrahim on 10-16-2021 Anion gap [Moles/Vol] 12.5 mmol/L 6.0-15.0 [facility] Serum or plasma aspartate am inotransferase measurement (enzymatic activity/volume)Ordered By: Lon Ibrahim on 10-16-2021 AST [Catalytic activity/Vol] 15 U/L 10-42 [facility] Serum or plasma calcium jon urement (mass/volume)Ordered By: Lon Ibrahim on 10-16-2021 Calcium [Mass/Vol] 9.3 mg/dL 8.2-10.2 [facility] Serum or plasma chloride latrell surement (moles/volume)Ordered By: Lon Ibrahim on 10-16-2021 Chloride [Moles/Vol] 103 mmol/L 95-114 [facility] Serum or plasma glucose jon urement (mass/volume)Ordered By: Lon Ibrahim on 10-16-2021 Glucose [Mass/Vol] 80 mg/dL 70-100 [facility] Comment on above: ADA recommended refe rence range Random Glucose Reference Range is dependent on time and content of last meal. Glucose of more than 200 mg/dL in a nonstressed, ambulatory subject supports the diagnosis of Diabetes Mellitus. Serum or plasma high density lipoprotein (HDL) cholesterol measurementOrdered By: Lon Ibrahim on 10-16-2021 Cholesterol in HDL [Mass/Vol] 50 mg/dL 35-85 [facility] Comment on above: HDL CHOL ATP-III CLA SSIFICATION Cardiovascular Risk HDL > or equal to 60 mg/dL LOW HDL < 40 mg/dL HIGH Serum or plasma potassium me asurement (moles/volume)Ordered By: Lon Ibrahim on 10-16-2021 Potassium [Moles/Vol] 4.2 mmol/L 3.5-5.1 [facility] Serum or plasma sodium measu rement (moles/volume)Ordered By: Lon Ibrahim on 10-16-2021 Sodium [Moles/Vol] 139 mmol/L 136-146 [facility] Serum or plasma total biliru bin measurement (mass/volume)Ordered By: Lon Ibrahim on 10-16-2021 Bilirubin [Mass/Vol] 0.5 mg/dL 0.3-1.2 [facility] Serum or plasma total carbon dioxide measurement (moles/volume)Ordered By: Lon Ibrahim on 10-16-2021 CO2 [Moles/Vol] 27.7 mmol/L 22.0-30.0 [facility] Serum or plasma total choles terol/high density lipoprotein (HDL) cholesterol mass ratOrdered By: Lon Ibrahim on 10-16-2021 Cholesterol.total/Roseanna sterol in HDL [Mass ratio] 4.1 {ratio} <5.0 [facility] Serum or plasma urea nitroge n measurement (mass/volume)Ordered By: Lon Ibrahim on 10-16-2021 Urea nitrogen [Mass/Vol] 21 mg/dL 9- [facility] TSH DL <= 0.005 mIU/L QnOrde red By: Lon Ibrahim on 10-16-2021 TSH Qn 1.34 m[IU]/L 0.45-5.33 [facility] Triglyceride [Mass/volume] i n Serum or PlasmaOrdered By: Lon Ibrahim on 10-16-2021 Triglyceride [Mass/Vol] 192 mg/dL 35-149 [facility] Comment on above: TRIG ATP III CLASSIF [...] Urnls Dip Stick Auto w/o Microscopy POC 23022 Your Care Team Attending Physician - Linden [...] multivitamin (Multi Vitamin+) omega-3 polyunsaturated fatty acids ([place]) Procedures Performed Cystourethroscopy and dilation of bladder [...] schedule Urodynamics Where: [facility] [address], [place] [phone] Medications What How Much When Why Instructions [...] or concerns Unchanged omega-3 polyunsaturated fatty acids ([place]-3) Contact prescribing physician if questions or concerns Test Results Urnls Dip Stick Auto w/o Microscopy POC 88340 (09/16/2021) Bilirubin Urine Dipstick - Negative Blood Urine Dipstick - 2+ Moderate Glucose Urine Dipstick - Negative Ketones Urine Dipstick - Negative Leukocytes Urine Dipstick - 3+ Large Nitrite Urine Dipstick - Negative Protein Urine Dipstick - Negative Specific [place] Urine Dipstick - 1.015 Urine Appearance Urine [...] and get (more content not included)... Normal [facility] Patient Educationon 09-17-19 Patient Education Obstetrics [...] these instructions at home: Medicines ? Take oxtr-bvs-pybcvth and prescription medicines only as told by [...] 07/13/2008 Document Revised: 01/12/2019 Document Reviewed: 08/04/2018 [employer] Patient Education ? 2019 [employer] Vinny [facility] Urology Office/Clinic Noteon 09-16-2021 Urology Office/Clinic Note [...] urine and/or bladder capacity by US- non-imaging 86816 Urnls Dip Stick Auto w/o Microscopy POC 43136 Urology Procedure Order 2. 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 Pt states she wears briefs and changes them about 10x/day. Ordered: Measure Post Void residual urine and/or bladder capacity by US- non-imaging 23792 Urnls Dip Stick Auto w/o Microscopy POC 69122 Urology Procedure Order 3. Asymptomatic microscopic hematuria (R31.21: Asymptomatic microscopic hematuria) UA today shows moderate blood. Ordered: Measure Post Void residual urine and/or bladder capacity by US- non-imaging 50538 Urnls Dip Stick Auto w/o Microscopy POC 14471 Urology Procedure Order 4. Recurrent UTI (N39.0: Urinary tract infection, site not specified) Pt states she is unable to feel if she has dysuria or itching. Pt has been taking her Keflex 250mg qd. UA today shows large leuks. Ordered: Measure Post Void residual urine and/or bladder capacity by US- non-imaging 02229 Urnls Dip Stick Auto w/o Microscopy POC 41797 Urology Procedure Order 5. Urgency incontinence (N39.41: Urge incontinence) Pt c/o daytime freq, urgency, bladder spasms, nocturia x2, changes pads multiple times daily. Discussed w/ pt tx options, such as urodynamics. Will schedule Urodynamics. Ordered: Measure Post Void residual urine and/or bladder capacity by US- non-imaging 29873 Urnls Dip Stick Auto w/o Microscopy POC 56587 Urology Procedure Order (more content not included)... Normal [facility] Comment on above: Result Comment: Elec tronically Signed By: Linden Villarreal MD, Mihir Broderick\.br\Date and Time Signed: 09/16/21 09:04 EDT\.br\Electronically Co-Signed By: Loren Negro\.br\Date and Time Co-Signed: 09/16/21 08:54 EDT Consent for Procedure/Surger yon 07-22-2021 Consent for Procedure/Surgery [id number] Normal [facility] Urology Office/Clinic Noteon 07-22-2021 Urology Office/Clinic Note [...] urine The Urethra was dilated to: 28 Serbian with sounds. Specimens Removed: None Removal: Cystoscope [...] elsewhere classified, female) cysto/ud done today Ordered: 89959 Cystourethroscop w/ calib and/or dilat of structure/stenosis w/w/o meatotomy / inj Dilation of urethral stricture, female, Initial 82869 2. 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 3. Asymptomatic microscopic hematuria (R31.21: Asymptomatic microscopic hematuria) previous UA showed large Ordered: 64438 Cystourethroscop w/ calib and/or dilat of structure/stenosis w/w/o meatotomy / inj Dilation of urethral stricture, female, Initial 56992 4. Recurrent UTI (N39.0: Urinary tract infection, site not specified) Pt stated she feels as if she currently has a UTI. Stated that her urine is a dark color and a little cloudy. Denies burning. no odor noted. has been taking her suppressive Keflex. Previous UA showed large blood and small AGUSTIN. Ordered: 54019 Cystourethroscop w/ calib and/or dilat of structure/stenosis w/w/o meatotomy / inj Dilation of urethral stricture, female, Initial 68469 5. Urgency incontinence (N39.41: Urge incontinence) c/o daytime freq, urgency, bladder spasms, nocturia x2, changes pads multiple times daily Tried oxybutynin 5mg but stopped it because she felt it made it difficult to void. Ordered: 69233 Cystourethroscop w/ calib and/or dilat of structure/stenosis w/w/o meatotomy / inj Dilation of urethral stri (more content not included)... 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 Discharge Vitals Heart Rate (Peripheral) 66 Blood Pressure 124/72 Weight 110.0 kg Weight 110.0 kg What to do next Scheduled Follow-Up Appointments Wednesday 8:00 AM EDT With: Mihir Cheatham Jr., MD Where: [facility] Patient Educationon 07-22-19 22 Patient Education Obstetrics and Gynecology Overactive Bladder, [...] Take ove (more content not included)... Normal [facility] C Urineon 07-11-2021 Bacteria identified Cx [...] Locations R1: This test was performed at: [facility], [address] [place] [address], [address] , [place], Normal [facility] Comment on above: Performed By: #### 2 [id number] ####[facility] [id number] SINGH Vigil [address] Coding Summary.on 07-11-2021 Coding Summary. CD:[id number] G h0bWw+PGhlYWQ+MX1WYUK fG73jqVBdjP5FB6eFUU9Z YBSBAYEJIM7TGV3ndIQ2G OifZ9DoplHq SmdshTIsVB14DIr9XZL4f RjfOFsllY9hdFIlK1u1Ko JbJK07aW77MIejXONcCzZ 3LjZpbjsgbWFy B7dhHiMypUEcNbv+PHRhY mxlIHdpZHRoPScxMDAlJy ZofNdyEK4rIh3iZQJqFBH vbGxhcHNlOiBj h0suJGHlPLvdZA8ohUoeI 3FkeRV2MZZpa9d6Vk87qN I+DQHeKQR2aApbTQzvn75 4BwHww5vgUUG7 xUNiQYcmCNZ5L12fx4E2M RWzVUAxFOY9uOL2nA3gaS ydouasK5UwaIKvGsW5BPU 5qTIcnM0qgWqo kxpzsV1pQlo+Y57VNI3NI XWDPS2YSij7O9EeUrhayL I+YQ55UATyTH57uNTtySC gq0kliBk5FoRa GKVpNIU4tAkrEDcvq2BsC QGgI62raCHic1I3BINmeG qagVCtKgUxeHN3tD8vHVc qvuxuw9jalihm Bbipi3qwcd48dK79C76tY SrnEVAoBHM0DVMqLAFuyL azit1xpG7sJf1+PEjno9a yx9oryVa0RaRb HHTulaKvfOjzXYT1z4UjJ t45L3MrqVomc4OnGjj8nz 97jKLzb4P7lTE6YEuaELO zqA3wDLqxPkW7 OPTgAhMedK90oHNxXCafP n5oxJtbfFawTH5nWKWtod yyXPUbrA3pDISxgKCftKj kYR7jLZAvibvp e117TfNjOHL7PXRmjUFhV 0JgyP8oZjVhSXKjZFRwX2 AtfAQiDDrkC287VQwzWjE 0ZORvpkLqF2Xa FUGjnGenLoF6p3K7Lo1Qu 7WxulfjUFD3IUypQKD2Lh AeZlHlHoS6M3DtFwl5YFM aaImoNQ3iR8Cp QSXztepmzutcqXV4DLWqP UCeqX17aBWqZNqeRk9xp4 P2h145HSXuCFOmtJ02Sm3 udDogMTBwdCBU fJ1qzsipj3gmlcdcHtNuK IClCWd1PMt1ETFvnAhpZg HjWMQ8FgN8PYS2nJHciI4 qpVeafisziQ9r Oyc+Q59gbX9kAOP3ZRC8i aaoMDLjwcVwLK72AS13I8 RyPjwvdGFibGU+PGRpdiB nsLszHG1wHwMy y8xlq7QuTHrkT2ZcGMToB PxmQey5QXOgURK9dTK3eT 7eLLFnUNwee2B7fFE7I2N frkFxsp7ea5du RHSaSAnwP74zsVBjd0Y9D WQdxOP2ZTBieAwcPtSmqG 93Oyc+JGCfuArqt6TuUbp wo9yvz9wrpBu6 ScTnUXMybhRyaBzsXZD0u 2WlXv93R89pAAesMFZdIP OrGSHqJINrkHeoqh5irU1 wIi8+PGNvbCB3 hHQ0vB4wHOLgKsW7KLbuA 664FvYstVMeDnfyi7zht2 bwtLr5KsDrQVKqpqStdCz qVVW3v0CiYk34 L50yNRgnYSPjMRIqHVVtP VKpeQocpu1elH1hKd3+PC 6ey8szsf54fT04qRT+PHR hTKU0iYscPDbh WHCnzX8mHLlxOzS0ARPgX wExqP74tGZoHUoiUy9zqR sgfKjjBE3hMWOfimpbj10 9QlQll9ehYNXy oGFmRGziAFP3P41lj2K8F JPgBBStOJS4sVI2gT2lpF lnbjogbGVmdDsgdmVydGl cLDmxLUixD031 IHRvcDsnPlBhdGllbnQgT nUhIMq4K2VgSoa5NJUgjF nvGD3xjMGtGAdzCf6llBt pdGfcEG4pAOCu dhgjf957QnAzv0msYXNnj VUhTGziLFC2E01mf8S3WM ZsWFOhROB1rJW2qR8evEx nbjogbGVmdDsg shXvrNtpGLneHTqvO715M HRvcDsnPkJpcnRoIERhdG Z5LB61UV87wESut4W1nNA 4U9QfRMBiexyi qehdiOC3NMWcIDMggR45Z k9nkEuaCk5dNHWmRBG5ZP UynNEiO1AsxV3lCsZkUVR zDONpS1PluMRu PAizO259CRqrItA8MWQyj sMkD9ZiGRHtkEniFxJ6p9 J6Xf6ON8R6RG51VK39tVB mp4K8yCF6X2Ke VHLtcrcsxzkchWO8PNEuP DBadP14Qi5suQyjAd3lTW KfXBG0HSUzbSWbF2IbdJ0 yOiAjMDAwMDAw J6SwoXQxJHxxV426JPokZ qN9JJFwxmTnN6OtVYFfiS snTyL7l3O3Lg0AEQn1WV0 2UQ50jUEur5A4 uCQ1Q9LfWJNpaucgrczkc LM3JQFlQBGzhB75Ha5dxN hfEb0qNOQoXDP0IEOviVW lA8ShtD4tHiKs PFOlGHMcZ3MjqEPhPDcfY 693TMshWtN4GLZnjrZuW1 MmSGFluCzqEmW5t9P8Bd8 BCIEzXV61PEF7 eCL2BL83LX36B8AuVadzo GFibGU+PHRhYmxlIHdpZH RoPScxMDAlJyBzdHlsZT0 cEc6hAYSjIKEi eIxeiYVcZiVme8meKWVmS TiiCU0irKxhK4JkuSU7FD Rpi4q9Nz51Z19vU3WkbFT +HOImgKS6wUZ8 mC0kRbPnNhL7LZfoD677W hZuiGBbXzbgm3myf8obiV d5BoG2HQOoqkDtgSndZOP 9g5LmBy63T24o IHdpZHRoPSIxNSUiIHZhb Gsejo1dgS3hDp3+PGNvbC P1aVF7vG2bWfXmSjE2MFh aN058ZzZzuEIc Ullic4ubx9wfuAp8AoLvG EAjamGfaKoeMNW1p7FqEn 03F1OifEeaj5QoSqe5md5 5sTDxl0U0mUU1 D2LdQSFxdfoavIJgwGwxS R1dSLHeyxthJLOeaP9vZB HlL7i4QqUwKgO4JAdnO6V bwsB4DUXtqTBg AQejGBA1O22ji5Q4JVZyD VHeJKP0pYV5eJ2nxRarat ogbGVmdDsgdmVydGljYWw tOUycC193VMGf xWqiGTUxgG2yUQKpsBNog QyiFV1fWWEgvqbpYpZFDH osIERFTkEgTTwvdGQ+PHR jLMW3xFvtARwi RCDlkM7gYUCjG2a2XfLcY wW6RAvcR8WuJDTuvyblEt 74yN1vLqEfKrZ8JDwuR4X ftvJ6MHCqbNGu DHgwZRN8G70zc6X2KFGsM CTfWLZ2fFS1lF9bqYdsja ogbGVmdDsgdmVydGljYWw lBOxfN999VNLx tRhzExW1IaW3MuM3XvY4A 3SvPuv3AOHnyVdaNH6kmB QjROmeBe9gxWgdcOooNI7 wNTBpbjtwYWRk tP4aQCRljSEkoRzbAG9zT VSxwixiu928AuZhWVS4VO KjcCMmT0ViyZ9rOzTjVXK nJRZiU0MyrXZl YZdrH077ESikNaL2YOBfh pIhB2OxYJMrpDlgBhT6k2 B0Ak21BDIKLJOtlachaCM +ULYoWFI8mYem WSckXQEzlC0gIHSrN8i3S cQnArP0ABjyB8EbSQGmev bcGo35qX0qJxObUgL7EVb bZ9AwtqJ8MTWi sVTfICzlSSR6I29mu3W5A PNyCHFdGHB6vYE5nV2bxW lnbjogbGVmdDsgdmVydGl aCHjnKOnpG045 IHRvcDsnPkZlbWFsZTwvd GQ+LAMsOHF8qJcvKGogSQ JkoS9jHSZxR0j7IkTmTcB 4XWlaB9GrNUAt hfgvEh35kV1uOrZzHcB2Z SgfP0SuowR4FXGqdZPsLW rzHRD9U90bw6O0WUCvTPV fAGV3lJC4lD0a bGlnbjogbGVmdDsgdmVyd SnnGWpcWTpkW463DARieM wyAewtSuLCqb4oXU5uVah vdGQ+BZ91vf93 W8TtSyyjPug7IPNwWVT9l VX9jL9aCLPpWKenf7E7bF W4Z2KqfuAoaz0uk0ruSTQ nPHxwA85geOMf m0G9WJRarSL6KULicAsuB vXokC13Gaj+PGNvbGdyb3 WjTcwnt4lip4iwtNs1UwH wJSIgdmFsaWdu TMN1t0EyUg06A92lTArjV HRoPSIzMCUiIHZhbGlnbj 3cfW7bXv9+PJZmuKP4rJJ 4eA0kDvNwHfG2 OVpeT477FgRuyBBaQoeqg 4grq1sznXm1EnTzOOZbfu EbxAxvTQT3f7VeZx76L8G dkNvwp2UvLan5 cf37vJMnh8G9xOR5Z7XpK XVlqeuqlFRinSmeLM6cRF JombztJMDrmI2tHYDrS7d 5AbNkMyJ9PMqq W0WfoeD9AFFjsERfOOUlw PROwE2ckdhnk6kvgoekDv CcEEElMAh1QEq7VOOjjCl dFfKgQNK5EmC5 DXP4pZTbfF5zoJwmshfoq G9wOyc+GNy3h9ltxVBcAH 2vbDS5WQ70XC08iJEvo0G 1yFD2W4GeULSi qjoesseqqSV4LOGiYGJti H31Cx7nfHtgAd4mBQSlUE X5SFYtfXMhD4GvmA6eTvJ gHIKyMYOuN4Xt vKRpIZneD102YOcoHlP5T ZNyuvEhZ4QvVZZffErwXm W9s6F0Do0WKM59JF47ZT6 2iCBmu8E7oHJ5 Q6WfFYUmqvzwspcgqPQ8D USfNXWbsI07Cv9biUymVt 3dARHuGPA6ZYIgfBXmH4R lcM8dAvEpSNMb ETQlR1DebFAjZVgdX022K HisSwJ0IIFepoNqA4BlXJ TrpHgbYuP1n5S4Bi6DYz1 0AY62FH38eXXb a5J9gFG5O2MaVVTtbcosh tawtQM1YVUmQRNahO40Th 1dqQnmEh0pHHTlMTB1UEM ssWFtS5IqdP2d IlWdNVTyIIZiD4LxbSWtE KmsM512BCseXmZ9VZXagd ZfR6WmDNUenGxfWoZ0b9I 1Va0PKIwqhvt7 W8PuTjeymWI+BD41TMYmW P07rLResKWgd6bamZn0Ht UsYPUuJWJ8cMukPIsef3I jKAMpN66inCYw c2U6 (more content not included)... Normal [facility] Reminderson 07-11-2021 Reminders - From: Kelly Dominguez MA To: EU - Clinical; Sent: 07/09/2021 13:51:55 EDT Show up: 07/11/2021 13:51:00 EDT Subject: Urine Culture Reminder/Recall Urine Culture addressed. DAREK Normal [facility] Ambulatory Visit Summaryon 0 07-09-2021 Ambulatory Visit Summary 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1970 Visit Date:07/09/2021 Ambulatory Visit Instructions Your Diagnosis Recurrent UTI Weak urine stream Urgency incontinence Microhematuria Tests Performed Urnls Dip Stick Auto w/o Microscopy POC 37680 Your Care Team Attending Physician - ANGELITA [...] multivitamin (Multi Vitamin+) omega-3 polyunsaturated fatty acids ([place]-3) [Image Removed: STOP]Stop taking these medications oxybutynin [...] ANGELITA PAEZ PA-C, URL When: Where: [address] [place] [address] Medications What How Much When Why Instructions New ciprofloxacin (Cipro 500 mg Tab) 1 Tablets By Mouth As Directed Take 1 tablet day before procedure, then 1 tablet day of procedure after procedure. Pickup at [facility]/pharmacy #[id number] Unchanged acetaminophen Contact prescribing physician if questions [...] or concerns Unchanged omega-3 polyunsaturated fatty acids ([place]-3) Contact prescribing physician if questions or concerns Pharmacy Information [facility]/pharmacy #[id number]: [address] [place], [place] [id number] [phone] What How Much When Why Comments Stop Taking oxybutynin (oxybutynin 5 mg ER Tab) 1 Tablets By Mouth Every day Urge incontinence Urine frequency Recurrent UTI Microscopic hematuria Test Results Urnls Dip Stick Auto w/o Microscopy POC 00413 (07/09/2021) Bilirubin Urine Dipstick - Negative Blood Urine Dipstick - 3+ Large Glucose Urine Dipstick - Negative Ketones Urine Dipstick - Negative Leukocytes Urine Dipstick - 1+ Small Nitrite Urine Dipstick - Negative Protein Urine Dipstick - 1+ (30 mg/dl) Specific [place] Urine Dipstick - 1.015 Urine Appearance Urine [...] aureus) culture (more content not included)... Normal [facility] Patient Educationon 07-10-19 Patient Education Obstetrics and [...] Take ove (more content not included)... Normal [facility] Urology Office/Clinic Noteon 07-09-2021 Urology Office/Clinic [...] Urnls Dip Stick Auto w/o Microscopy POC 36612 2. Weak urine stream (R39.12: Poor urinary [...] upcoming cysto/UD. Follow-up With When Contact Information MARYJANE PEARSON, ANGELITA Meade, URL [address] [place] [address] Additional Instructions: Patient Education Overactive Bladder, Adult I, Jainna Rosa, personally scribed for Angelita Paez PA-C on 07/09/2021 13:34:14. . Documentation recorded by the scribyemi Rosa accurately reflects the services(s) I performed [...] mg ER Tab, Oral, Daily Multi Vitamin+ [place]-3 oxybutynin 5 mg ER Tab, 5 mg= [...] arrhythmia: Mot (more content not included)... Normal [facility] Comment on above: Result Comment: Elec tronically Signed By: ANGELITA PAEZ PA-C\.br\Date and Time Signed: 07/09/21 13:49 EDT\.br\Electronically Co-Signed By: Janina Rosa\.br\Date and Time Co-Signed: 07/09/21 13:34 EDT Operative Reporton Operative Report MR#: [id number] # [facility] Pt. Name: Carrie Fletcher Room #: D5 [...] cholecystitis. The patient had clearance from the plate shop helper and she was scheduled for DaVinci assisted [...] position and the right side up. The Pristine.[email or web address] robot was docked. The gallbladder was found [...] Brown M.D. Date Trans: 03/14/2020 09:53 P/patriziao [id number] cc: Lon Ibrahim M.D. [facility] [address] [facility] [address] [place] [facility] Operative Report MR#: [id number] 2 [facility] Pt. Name: Carrie Fletcher Room #: 4AB [id number] Discharge 03/13/2020 Date: Birthdate: 1970 OPERATIVE REPORT [...] cholecystitis. The patient had clearance from the plate shop helper and she was scheduled for DaVinci assisted [...] position and the right side up. The Pristine.[email or web address] robot was docked. The gallbladder was found [...] Brown M.D. Date Trans: 03/14/2020 09:53 P/mmo [id number] cc: Lon Ibrahim M.D. [address] [facility] [address] Normal [facility] BASIC METABOLIC PANELon 02-0 Calcium [Mass/Vol] 9.0 mg/dL Normal 8.6-10.3 [facility] Comment on above: Order Comment: No: D o not add to previous draw Performed By: #### 1 0070, 62134, [address]261 #### [facility] [address] [place] [address], [facility] Chloride [Moles/Vol] 100 mmol/L Normal 98-107 [facility] Comment on above: Order Comment: No: D o not add to previous draw Performed By: #### 1 0, 59070, 70619 #### [facility] [address] [place] [address], [place] CO2 [Moles/Vol] 30 mmol/L Normal 21-31 [facility] Comment on above: Order Comment: No: D o not add to previous draw Performed By: #### 1 0, [id number], [id number] #### [facility] [address] [place] [address], [place] Creatinine [Mass/Vol] 0.57 mg/dL Low 0.60-1.20 [facility] Comment on above: Order Comment: No: D o not add to previous draw Performed By: #### 1 0070, [id number], [id number] #### [facility] [address] [place] [address], [place] GFR/1.73 sq M.predicted among blacks MDRD (S/P/Bld) [Vol rate/Area] mL/min/{1.73_m2} Normal >60 [facility] Comment on above: Order Comment: No: D o not add to previous draw Performed By: #### 1 0070, 52771, 05716 #### [facility] [address] [place] [address], [facility] GFR/1.73 sq M.predicted among non-blacks MDRD (S/P/Bld) [Vol rate/Area] mL/min/{1.73_m2} Normal >60 [facility] Comment on above: Order Comment: No: D o not add to previous draw Performed By: #### 1 0070, 08676, 49683 #### [facility] [address] [place] [address], [facility] Glucose [Mass/Vol] 120 mg/dL High 70-100 The [facility] Comment on above: Order Comment: No: D o not add to previous draw Performed By: #### 1 0, 43247, 89784 #### [facility] [address] [place] [address], [facility] Potassium [Moles/Vol] 3.8 mmol/L Normal 3.5-5.1 [facility] Comment on above: Order Comment: No: D o not add to previous draw Performed By: #### 1 0, 74922, 60647 #### [facility] [address] [place] [address], [facility] Sodium [Moles/Vol] 134 mmol/L Low 136-145 [facility] Comment on above: Order Comment: No: D o not add to previous draw Performed By: #### 1 0, 08524, 74419 #### [facility] [address] [place] [id number], [facility] Urea nitrogen [Mass/Vol] 15 mg/dL Normal 7-25 [facility] Comment on above: Order Comment: No: D o not add to previous draw Performed By: #### 1 0070, 01994, 90588 #### [facility] [address] [place] [address], [place] CBC COMPLETE BLOOD COUNTon 0 2- Erythrocyte distribution width (RBC) [Ratio] 13.9 % Normal 11.5-15.0 [facility] Comment on above: Order Comment: Evalu ate Performed By: #### 5 0608 ####[facility].[address] Hematocrit (Bld) [Volume fraction] 36.9 % Normal 36.0-45.0 [facility] Comment on above: Order Comment: Evalu ate Performed By: #### 5 0608 ####[facility].[address] Hemoglobin (Bld) [Mass/Vol] 11.7 g/dL Low 12.0-15.0 [facility] Comment on above: Order Comment: Evalu ate Performed By: #### 5 0608 ####[address] MCH (RBC) [Entitic mass] 29.8 pg Normal 27.0-33.0 [facility] Comment on above: Order Comment: Evalu ate Performed By: #### 5 0608 ####[facility] MCHC (RBC) [Mass/Vol] 31.7 g/dL Low 32.0-35.0 [facility] Comment on above: Order Comment: Evalu ate Performed By: #### 5 0608 ####[facility].[address] MCV (RBC) [Entitic vol] 94.1 fL Normal 82.0-98.0 T he [facility] Comment on above: Order Comment: Evalu ate Performed By: #### 5 0608 ####[address] Nucleated RBC/100 WBC (Bld) [Ratio] 0 % Normal 0-0 The [facility] Comment on above: Order Comment: Evalu ate Performed By: #### 5 0608 ####[facility] [facility] [place] [address], [facility] PLAT CNT 190 10*3/uL Normal 150-400 The [facility] Comment on above: Order Comment: Evalu ate Performed By: #### 5 0608 ####[facility] [place] [address], [facility] RBC (Bld) [#/Vol] 3.92 10*6/uL Normal 3.80-5.00 The [facility] Comment on above: Order Comment: Evalu ate Performed By: #### 5 0608 ####[facility] [place] [address], [facility] WBC (Bld) [#/Vol] 7.94 10*3/uL Normal 4.00-10.60 The [facility] Comment on above: Order Comment: Evalu ate Performed By: #### 5 0608 ####[facility].[address] LIVER BATTERYon 03-13-2020 Albumin [Mass/Vol] 3.2 g/dL Low 3.5-5.7 [facility] Comment on above: Order Comment: No: D o not add to previous draw Performed By: #### 1 0, 03019, 81150 #### [facility] [address] [facility] [place] [address], [facility] ALKALINE PHOSPH 34 IU/L Normal 34-104 The [facility] Comment on above: Order Comment: No: D o not add to previous draw Performed By: #### 1 0, 80410, 04947 #### [facility] [address] [facility] [place] [address], [facility] ALT [Catalytic activity/Vol] 8 U/L Normal 7-52 The [facility] Comment on above: Order Comment: No: D o not add to previous draw Performed By: #### 1 0, 52975, 12875 #### [facility] [address] [place] [address], [facility] AST [Catalytic activity/Vol] 11 U/L Low 13-39 The [facility] Comment on above: Order Comment: No: D o not add to previous draw Performed By: #### 1 0070, 20164, 93346 #### [facility] [address] [place] [address], [place] Bilirubin [Mass/Vol] 0.5 mg/dL Normal 0.3-1.0 The [facility] Comment on above: Order Comment: No: D o not add to previous draw Performed By: #### 1 0070, 09717, 10958 #### [facility] [address] [place] [address], [facility] Bilirubin.direct [Mass/Vol] 0.1 mg/dL Normal 0.0-0.2 The [facility] Comment on above: Order Comment: No: D o not add to previous draw Performed By: #### 1 0, 57184, 26377 #### [facility] [address] [place] [id number], [facility] Protein [Mass/Vol] 6.1 g/dL Normal 6.0-8.3 The [facility] Comment on above: Order Comment: No: D o not add to previous draw Performed By: #### 1 0, 56960, 64160 #### [facility] [address] [place] [id number], [facility] MAGNESIUM BLOODon 03-13-2020 Magnesium [Mass/Vol] 1.4 mg/dL Low 1.9-2.7 The [facility] Comment on above: Order Comment: No: D o not add to previous draw Performed By: #### 1 0070, 96392, 51635 #### [facility] [address] [place] [address], [place] POC GLUCOSE LABon 03-12-2020 Glucose [Mass/Vol] 81 mg/dL Normal 70-100 The [facility] Comment on above: Performed By: #### 8 5499 #### [facility] [address] [facility]. [address] *SARS-CoV-2 COVID-19on 03-09 Clinical Report Normal The [facility] Comment on above: Result Comment: Spec imen: OROPHARYNGEAL Collected: 03/09/2020 09:30 Status: Final Last Updated: 03/09/2020 14:46 COVID-19 (Final) Not Detected The [employer] SARS-CoV-2 assay is a real-time (rt) reverse transcriptase (RT) polymerase chain reaction (PCR) test intended for the [employer] system. The SARS-CoV-2 primer and probe sets are designed to detect RNA from SARS-CoV-2 in a nasopharyngeal (RCIS) or oropharyngeal (OP) swab from patients with signs and symptoms of infection who are suspected of COVID-19. Results are for the identification of SARS-CoV-2 RNA. The SARS-CoV-2 RNA is generally detectable in a nasopharyngeal or oropharyngeal swab during the acute phase of infection. The [employer] SARS-CoV-2 assay is intended for use by qualified and trained clinical laboratory personnel specifically instructed and trained in the techniques of real-time PCR and in vitro diagnostic procedures. The [employer] SARS-CoV-2 assay is only for use under the Food and Drug Administration Emergency Use Authorization. Testing is limited to laboratories certified under the Clinical Laboratory Improvement Amendments of 1988 (CLIA), 42 U.S.C. 263a, to perform high complexity tests. Performed By: #### 3 1792 #### [facility] [address] [facility]. [address] *MRSA/MSSA DNA NASALon 02-22 *MRSA/MSSA DNA NASAL Clinical Report: (D ) Specimen: NASAL SWAB Collected: 02/23/2020 11:12 Status: Final Last Updated: 02/23/2020 15:43 MSSA DNA (Final) Negative MRSA DNA (Final) Methicillin Resistant Staphylococcus aureus DNA Detected Normal The [facility] Comment on above: Performed By: #### 3 1595 ####[facility] APTTon 02-23-2020 aPTT Coag (Bld) [Time] 27.7 s Normal 25.0-35.0 Th e [facility] Comment on above: Result Comment: ALL RESULTS [...] THIS PURPOSE. Performed By: #### 5 6101, 99874 #### [facility] [address] [place] [address], [facility] BASIC METABOLIC PANELon 02-08 Calcium [Mass/Vol] 9.8 mg/dL Normal 8.6-10.3 [facility] Comment on above: Performed By: #### 0 0071 #### [facility] [address] [facility] [place] [address], [facility] Chloride [Moles/Vol] 104 mmol/L Normal 98-107 The [facility] Comment on above: Performed By: #### 0 0071 #### [facility] [address] [facility] [place] [address], [facility] CO2 [Moles/Vol] 31 mmol/L Normal 21-31 [facility] Comment on above: Performed By: #### 0 0071 #### [facility] [address] [facility] [place] [address], [facility] Creatinine [Mass/Vol] 0.62 mg/dL Normal 0.60-1.20 The [facility] Comment on above: Performed By: #### 0 0071 #### [facility] [address] [place] [address], [facility] GFR/1.73 sq M.predicted among blacks MDRD (S/P/Bld) [Vol rate/Area] mL/min/{1.73_m2} Normal >60 The [facility] Comment on above: Performed By: #### 0 0071 #### [facility] [address] [facility] [place] [address], [facility] GFR/1.73 sq M.predicted among non-blacks MDRD (S/P/Bld) [Vol rate/Area] mL/min/{1.73_m2} Normal >60 The [facility] Comment on above: Performed By: #### 0 0071 #### [facility] [address] [facility] [place] [address], [facility] Glucose [Mass/Vol] 88 mg/dL Normal 70-100 The [facility] Comment on above: Performed By: #### 0 0071 #### [facility] [address] [place] [address], [facility] Potassium [Moles/Vol] 3.9 mmol/L Normal 3.5-5.1 The [facility] Comment on above: Performed By: #### 0 0071 #### [facility] [address] [facility] [place] [address], [facility] Sodium [Moles/Vol] 140 mmol/L Normal 136-145 The [facility] Comment on above: Performed By: #### 0 0071 #### [facility] [address] [facility] [place] [place] [address], [facility] Urea nitrogen [Mass/Vol] 21 mg/dL Normal 7-25 The [facility] Comment on above: Performed By: #### 0 0071 #### [facility] [address] [facility] [place] [address], [facility] CBC W/DIFFon 02-23-2020 ABS IMM GRANS 0.0 10*3/uL Normal 0.0-0.2 The [facility] Comment on above: Performed By: #### 5 0103 ####[facility] [place] [address], [facility] ABS NEUTROPHILS 3.5 10*3/uL Normal 1.6-7.[address] [facility] Comment on above: Performed By: #### 0103 ####[facility] [place] [address], [facility] Basophils (Bld) [#/Vol] 0.0 10*3/uL Normal 0.0-0.2 The [facility] Comment on above: Performed By: #### 0103 ####[facility] [place] [address], [facility] Basophils/100 WBC (Bld) 0.3 % Normal 0.0-1.0 T [facility] Comment on above: Performed By: #### 5 3 ####[facility] [place] [address], [facility] Eosinophils (Bld) [#/Vol] 0.1 10*3/uL Normal 0.0-0.5 The [facility] Comment on above: Performed By: #### 5 0103 ####[facility] [place] [address], [facility] Eosinophils/100 WBC (Bld) 1.9 % Normal 0.0-6.0 The [facility] Comment on above: Performed By: #### 3 ####[facility] [place] [address], [facility] Erythrocyte distribution width (RBC) [Ratio] 14.1 % Normal 11.5-15.0 The [facility] Comment on above: Performed By: #### 3 ####[facility] [place] [address], [facility] Hematocrit (Bld) [Volume fraction] 41.2 % Normal 36.0-45.0 The [facility] Comment on above: Performed By: #### 3 ####[facility] [place] [address], [facility] Hemoglobin (Bld) [Mass/Vol] 12.9 g/dL Normal 12.0-15.0 The [facility] Comment on above: Performed By: #### 5 0103 ####[facility] [place] [address], [facility] IMMATURE GRANS 0.3 % Normal 0.0-1.0 The [facility] Comment on above: Performed By: #### 5 0103 ####[facility] [place] [address], [facility] Lymphocytes (Bld) [#/Vol] 2.7 10*3/uL Normal 1.2-4.0 The [facility] Comment on above: Performed By: #### 5 0103 ####[address] Lymphocytes/100 WBC (Bld) 40.1 % Normal 20.0-45.0 The [facility] Comment on above: Performed By: #### 5 0103 ####[facility] MCH (RBC) [Entitic mass] 29.3 pg Normal 27.0-33.0 The [facility] Comment on above: Performed By: #### 5 3 ####[facility] [place] [address], [facility] MCHC (RBC) [Mass/Vol] 31.3 g/dL Low 32.0-35.0 The [facility] Comment on above: Performed By: #### 5 0103 ####[facility] [place] [address], [facility] MCV (RBC) [Entitic vol] 93.6 fL Normal 82.0-98.0 T zack [facility] Comment on above: Performed By: #### 5 3 ####[facility] [place] [address], [facility] Monocytes (Bld) [#/Vol] 0.4 10*3/uL Normal 0.1-1.0 The [facility] Comment on above: Performed By: #### 5 0103 ####[facility] [place] [address], [facility] MONOS 5.3 % Normal 5.0-12.0 The [facility] Comment on above: Performed By: #### 5 0103 ####[facility] [place] [address], [facility] Neutrophils/100 WBC (Bld) 52.1 % Normal 40.0-72.0 The [facility] Comment on above: Performed By: #### 5 3 ####[facility] [place] [address], [facility] Nucleated RBC/100 WBC (Bld) [Ratio] 0 % Normal 0-0 The [facility] Comment on above: Performed By: #### 5 3 ####[facility] [place] [address], [facility] PLAT CNT 272 10*3/uL Normal 150-400 The [facility] Comment on above: Performed By: #### 5 3 ####[facility] [place] [address].[place] [address], [facility] RBC (Bld) [#/Vol] 4.40 10*6/uL Normal 3.80-5.00 The [facility] Comment on above: Performed By: #### 5 102 ####[facility] [place] [address], [facility] WBC (Bld) [#/Vol] 6.78 10*3/uL Normal 4.00-10.60 The [facility] Comment on above: Performed By: #### 5 102 ####[facility] [place] [address].[place] [address], [facility] PROTHROMBIN TIMEon 1 INR Coag (PPP) [Relative time] 1.10 {INR} Normal 0.91-1.16 The [facility] Comment on above: Result Comment: [facility] P RECOMMENDED INR FOR WARFARIN THERAPY ------- [...] CHEST 1995;108:231S-246S. Performed By: #### 5 6101, [address]017 #### [address] PT Coag (PPP) [Time] 14.3 s Normal 12.3-14.8 [facility] Comment on above: Result Comment: ALL RESULTS MUST BE INTERPRETED WITH RESPECT TO BLOOD DRAWING ARTIFACT OR DILUTION ERROR OF ANTICOAGULANT AT THE TIME OF SAMPLING. Performed By: #### 5 6101, 79091 #### [address] T TUBE CHOLANGIOGRAM 01-15 T TUBE CHOLANGIOGRAM [facility] Department of Radiology [address] [place] [id number] Patient Name: 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 1970 Sex: [...] duodenum. Electronically signed: Nicole Jackson. Transcribed by: [email or web address], User Resident: Electronically Signed by: NICOLE JACKSON @ 01/16/2020 01:36 PM Normal The [facility] Comment on above: Order Comment: Evalu [...] Anurag Mcqueen MD 12/28/18 Final result Normal [facility] Expected postoperative findings status post C4-5 ACDF. [place] EXAMINATION: 3 XRAY VIEWS OF THE CERVICAL [...] again demonstrated. The lung apices are clear. [place], [place], [facility] Incoming Radiant Results From [employer] - 12/28/2018 10:11 AM EST EXAMINATION: 3 [...] Expected postoperative findings status post C4-5 ACDF. [place] Bacterial susceptibility lentz el by [facility] 11-27-2018 Bacterial susceptibility panel by Minimum inhibitory [...] hoxazole <=20 S S=SUSCEPTIBLE I=INTERMEDIATE R=RESISTANT Normal [facility] Comment on above: Performed By: #### 5 0545-3 #### [facility] [address] [place] [address] Culture, Urineon 11-27-2018 Culture, Urine ORDERED BY: DR. SRIDHAR SOURCE: Urine Clean Catch COLLECTED: 11/27/18 08:42 ANTIBIOTICS AT [facility].: RECEIVED : 11/27/18 08:42 CALL doctor [id number] tel. , Culture, Urine INTERIM 11/28/18 08:05 >100,000 CFU/ml Escherichia coli Sensitivity to follow Normal [facility] Comment on above: Performed By: #### C XURN #### [facility] [address] [place] [address] Urinalysis, reflex to cultur tori 11-27-2018 Bilirubin Ql (U) Negative Normal Negative [facility] Comment on above: Order Comment: CALL doctor [id number] tel. , Performed By: #### U AR #### [facility] [address] [place] [address] Clarity (U) TURBID Abnormal [facility] Comment on above: Order Comment: CALL doctor [id number] tel. , Performed By: #### U AR #### [facility] [address] [place] [address] Color (U) Yellow Normal [facility] [facility] Comment on above: Order Comment: CALL doctor [id number] tel. , Performed By: #### U AR #### [facility] [address] [place] [address] Glucose Ql (U) Negative Normal Negative [facility] Comment on above: Order Comment: CALL doctor [id number] tel. , Performed By: #### U AR #### [facility] [address] [place] [address] Hemoglobin Ql (U) LARGE Abnormal Negative [facility] [place] Comment on above: Order Comment: CALL doctor [id number] tel. , Performed By: #### U AR #### [facility] [address] [place] [address] Ketones Ql (U) Negative Normal Negative [facility] Comment on above: Order Comment: CALL doctor [id number] tel. , Performed By: #### U AR #### [facility] [address] [place] [address] Leukocyte esterase Test strip Ql (U) LARGE Abnormal Negative [facility] Comment on above: Order Comment: CALL doctor [id number] tel. , Performed By: #### U AR #### [facility] [address] [place] [address] Nitrite Ql (U) Negative Normal Negative [facility] Comment on above: Order Comment: CALL doctor [id number] tel. , Performed By: #### U AR #### [facility] [address] [place] [address] pH (U) 8.0 [pH] Normal 5.0-9.0 [facility] Comment on above: Order Comment: CALL doctor [id number] tel. , Performed By: #### U AR #### [facility] [address] [place] [address] Protein Ql (U) 30 mg/dL Abnormal Negative [facility] Comment on above: Order Comment: CALL doctor [id number] tel. , Performed By: #### U AR #### [facility] [address] [place] [address] Specific gravity (U) [Rel density] 1.016 Normal 1.005-1.03 [facility] Comment on above: Order Comment: CALL doctor [id number] tel. , Performed By: #### U AR #### [facility] [address] [place] [address] Urine Reflexed to Culture YES Normal [facility] Comment on above: Order Comment: CALL doctor [id number] tel. , Performed By: #### U AR #### [facility] [address] [place] [address] Urobilinogen Qn (U) 1.0 {Marcela'U}/dL Normal < 2.0 [facility] Comment on above: Order Comment: CALL doctor [id number] tel. , Performed By: #### U AR #### [facility] [address] [place] [address] Urine Microscopicon 10-20-20 19 RBC (U) [#/Vol] 10-20 Abnormal 0-2 [facility] Comment on above: Order Comment: CALL doctor [id number] tel. , Performed By: #### U JAVIER #### [facility] [address] [facility] [address] Bacteria LM.HPF (Urine sed) [#/Area] MANY Abnormal [facility] Comment on above: Order Comment: CALL doctor [id number] tel. , Performed By: #### U JAVIER #### [facility] [address] [facility] [address] Urine Epithelial Cells Auto 0-2 Normal 0-5 [facility] Comment on above: Order Comment: CALL doctor [id number] tel. , Performed By: #### U JAVIER #### [facility] [address] [facility] [address] Urine Hyaline Casts Auto 10-20 Normal 0-5 [facility] Comment on above: Order Comment: CALL doctor [id number] tel. , Performed By: #### U JAVIER #### [facility] [address] [facility] [address] Urine WBC Auto >100 Critically high 0-5 [facility] Comment on above: Order Comment: CALL doctor [id number] tel. , Performed By: #### U JAVIER #### [facility] [address] [facility] [address] Basic Metab w/rfx MGon 09-06 (cont.) Normal [facility] Comment on above: Result Comment: Aver age GFR for 40-49 years old: 99 mL/min/1.73sq m Chronic Kidney Disease: <60 mL/min/1.73sq m Kidney failure: <15 mL/min/1.73sq m eGFR calculated using average adult body mass. Additional eGFR calculator available at: http://www.[employer]Soft.com/multiple_crcl_2011.htm Performed By: #### B MPX, CDP ####[place] [address] [place] [address] [facility] Director: Felipe Randall MD Anion gap [Moles/Vol] 8 mmol/L Low 9-17 [facility] Comment on above: Performed By: #### B MPX, CDP ####[facility] [address] [place], [place] [phone])[phone] Director: Felipe Randall MD Calcium [Mass/Vol] 8.8 mg/dL Normal 8.6-10.4 [facility] Comment on above: Performed By: #### B MPX, CDP ####[facility] [address] [place], [place] [id number])[phone] Director: Felipe Randall MD Chloride [Moles/Vol] 100 mmol/L Normal 98-107 [facility] Comment on above: Performed By: #### B MPX, CDP ####[facility] [address] [place], [place] [phone])[phone] Director: Felipe Randall MD CO2 [Moles/Vol] 29 mmol/L Normal 20-31 [facility] Comment on above: Performed By: #### B MPX, CDP ####[facility] [address] [place], [place] [phone] Director: Felipe Randall MD Creatinine [Mass/Vol] 0.54 mg/dL Normal 0.50-0.90 [facility] Comment on above: Performed By: #### B MPX, CDP ####[facility] [address] [place], [place] [phone])[phone] Director: Felipe Randall MD GFR, Amer >60 Normal >60 [facility] Comment on above: Performed By: #### B MPX, CDP ####[facility] [address] [place], [place] [phone] Director: Felipe Randall MD GFR,non Amer >60 Normal >60 [facility] Comment on above: Performed By: #### B MPX, CDP ####[facility] [address] [place] [address] Lab Director: Felipe Randall MD Glucose [Mass/Vol] 83 mg/dL Normal 70-99 [facility] Comment on above: Performed By: #### B MPX, CDP ####[facility] [address] [place], [place] [phone])[phone] Director: Felipe Randall MD Potassium [Moles/Vol] 3.7 mmol/L Normal 3.7-5.3 [facility] Comment on above: Performed By: #### B MPX, CDP ####[facility] [address] [place], [place] [phone] Director: Felipe Randall MD Sodium [Moles/Vol] 137 mmol/L Normal 135-144 [facility] Comment on above: Performed By: #### B MPX, CDP ####[facility] [address] [place] [address] [phone] Director: Felipe Randall MD Urea nitrogen [Mass/Vol] 9 mg/dL Normal 6-20 [facility] Comment on above: Performed By: #### B MPX, CDP ####[facility] [address] [place] [address] [phone] Director: Felipe Randall MD BUN/CRE Ratio NOT REPORTED Normal 9-20 [facility] Comment on above: Performed By: #### B MPX, CDP ####[facility] [address] [place], [place] [phone] Director: Felipe Randall MD Staging: NOT REPORTED Normal [facility] Comment on above: Performed By: #### B MPX, CDP ####[facility] [address] [place], [place] [phone] Director: Felipe Randall MD CBC with Diffon 09-06-2018 Abs. Basophil 0.03 k/uL Normal 0.00-0.20 [facility] Comment on above: Performed By: #### B MPX, CDP ####[facility] [address] [place], [place] [phone] Director: Felipe Randall MD Abs.Imm.Granulocyte 0.04 k/uL Normal 0.00-0.30 [facility] Comment on above: Performed By: #### B MPX, CDP ####[address] [address])[phone] Director: Felipe Randall MD Abs.Neutrophil (Seg) 3.48 k/uL Normal 1.50-8.10 [facility] Comment on above: Performed By: #### B MPX, CDP ####[address] [address])[phone] Director: Felipe Randall MD Basophils/100 WBC (Bld) 1 % Normal 0-2 [facility] Comment on above: Performed By: #### B MPX, CDP ####[address] [address])[phone] Director: Felipe Randall MD Eosinophils (Bld) [#/Vol] 0.16 10*3/uL Normal 0.00-0.44 [facility] Comment on above: Performed By: #### B MPX, CDP ####[address] [address] Lab Director: Felipe Randall MD Eosinophils/100 WBC (Bld) 3 % Normal 1-4 [facility] Comment on above: Performed By: #### B MPX, CDP ####[facility] [address] [place] [address])[phone] Director: Felipe Randall MD Erythrocyte distribution width (RBC) [Ratio] 13.2 % Normal 11.8-14.4 [facility] Comment on above: Performed By: #### B MPX, CDP ####[facility] [address] [place] [address] [phone] Director: Felipe Randall MD Hematocrit (Bld) [Volume fraction] 35.5 % Low 36.3-47.1 [facility] Comment on above: Performed By: #### B MPX, CDP ####[facility] [address] [place], [place] [id number])[phone] Director: Felipe Randall MD Hemoglobin (Bld) [Mass/Vol] 11.6 g/dL Low 11.9-15.1 [facility] Comment on above: Performed By: #### B MPX, CDP ####[facility] [address] [place], [place] [id number])[phone] Director: Felipe Randall MD Immature granulocytes (Bld) [#/Vol] 1 % High 0 [facility] Comment on above: Performed By: #### B MPX, CDP ####[facility] [address] [place], [place] [phone] Director: Felipe Randall MD Lymphocytes (Bld) [#/Vol] 2.34 10*3/uL Normal 1.10-3.70 [facility] Comment on above: Performed By: #### B MPX, CDP ####[facility] [address] [place], [place] [phone])[phone] Director: Felipe Randall MD Lymphocytes/100 WBC (Bld) 36 % Normal 24-43 [facility] Comment on above: Performed By: #### B MPX, CDP ####[facility] [address] [place], [place] [phone] Director: Felipe Randall MD MCH (RBC) [Entitic mass] 29.2 pg Normal 25.2-33.5 [facility] Comment on above: Performed By: #### B MPX, CDP ####[facility] Wcf[address]60[address] [place], [place] [phone] Director: Felipe Randall MD MCHC (RBC) [Mass/Vol] 32.7 g/dL Normal 28.4-34.8 [facility] Comment on above: Performed By: #### B MPX, CDP ####[address] [phone] Director: Felipe Randall MD MCV (RBC) [Entitic vol] 89.4 fL Normal 82.6-102.9 [facility] Comment on above: Performed By: #### B MPX, CDP ####[address] [phone] Director: Felipe Randall MD Monocytes (Bld) [#/Vol] 0.37 10*3/uL Normal 0.10-1.20 [facility] Comment on above: Performed By: #### B MPX, CDP ####[address] [phone] Director: Felipe Randall MD Monocytes/100 WBC (Bld) 6 % Normal 3-12 [facility] Comment on above: Performed By: #### B MPX, CDP ####[address] [id number])[phone] Director: Felipe Randall MD Neutrophil (Seg) 54 % Normal 36-65 [facility] Comment on above: Performed By: #### B MPX, CDP ####[address] [phone] Director: Felipe Randall MD NRBC Automated 0.0 per 100 WBC Normal 0.0 [facility] Comment on above: Performed By: #### B MPX, CDP ####[address] [phone] Director: Felipe Randall MD Platelet mean volume (Bld) [Entitic vol] 10.5 fL Normal 8.1-13.5 [facility] Comment on above: Performed By: #### B MPX, CDP ####[facility] [address] [place] [address] Lab Director: Felipe Randall MD Platelets (Bld) [#/Vol] 220 10*3/uL Normal 138-453 [facility] Comment on above: Performed By: #### B MPX, CDP ####[facility] [address] [place] [address] Lab Director: Felipe Randall MD RBC (Bld) [#/Vol] 3.97 10*6/uL Normal 3.95-5.11 [facility] Comment on above: Performed By: #### B MPX, CDP ####[facility] [address] [place] [address] Lab Director: Felipe Randall MD WBC (Bld) [#/Vol] 6.4 10*3/uL Normal 3.5-11.3 [facility] Comment on above: Performed By: #### B MPX, CDP ####[facility] [address] [place] [address] Lab Director: Felipe Randall MD Auto Diff Performed NOT REPORTED Normal [facility] Comment on above: Performed By: #### B MPX, CDP ####[facility] [address] [place] [address] Lab Director: Felipe Randall MD Platelets (Bld) [#/Vol] NOT REPORTED Normal [facility] Comment on above: Performed By: #### B MPX, CDP ####[facility] [address] [place] [address] Lab Director: Felipe Randall MD RBC morphology finding Nom (Bld) NOT REPORTED Normal [facility] Comment on above: Performed By: #### B MPX, CDP ####[facility] [address] [place] [address] Lab Director: Felipe Randall MD WBC Morphology NOT REPORTED Normal [facility] Comment on above: Performed By: #### B MPX, CDP ####[address] [address])[phone] Director: Felipe Randall MD APTTon 09-05-2018 aPTT Coag (Bld) [Time] 56.3 s High 20.5-30.5 [facility] Comment on above: Performed By: #### P TT ####[address] [address])[phone] Director: Felipe Randall MD aPTT Coag (Bld) [Time] 84.6 s High 20.5-30.5 [facility] Comment on above: Performed By: #### P TT ####[address] [address])[phone] Director: Felipe Randall MD aPTT Coag (Bld) [Time] 78.1 s High 20.5-30.5 [facility] Comment on above: Performed By: #### P TT ####[address] [address])[phone] Director: Felipe Randall MD Basic Metab w/rfx MGon 09-05 (cont.) Normal [facility] Comment on above: Result Comment: Aver age GFR for 40-49 years old: 99 mL/min/1.73sq m Chronic Kidney Disease: <60 mL/min/1.73sq m Kidney failure: <15 mL/min/1.73sq m eGFR calculated using average adult body mass. Additional eGFR calculator available at: http://www.ScheduleSoft.Purple Blue Bo/multiple_crcl_2012.htm Performed By: #### C DP, BMPX ####[address] [address])[phone] Director: Felipe Randall MD Anion gap [Moles/Vol] 12 mmol/L Normal 9-17 [facility] Comment on above: Performed By: #### C DP, BMPX ####[facility] [address] [place] [address] Lab Director: Felipe Randall MD Calcium [Mass/Vol] 8.7 mg/dL Normal 8.6-10.4 [facility] Comment on above: Performed By: #### C DP, BMPX ####[facility] [address] [place] [address])[phone] Director: Felipe Randall MD Chloride [Moles/Vol] 104 mmol/L Normal 98-107 [facility] Comment on above: Performed By: #### C DP, BMPX ####[facility] [address] [place] [address])[phone] Director: Felipe Randall MD CO2 [Moles/Vol] 25 mmol/L Normal 20-31 [facility] Comment on above: Performed By: #### C DP, BMPX ####[facility] [address] [place] [address])[phone] Director: Felipe Randall MD Creatinine [Mass/Vol] 0.47 mg/dL Low 0.50-0.90 [facility] Comment on above: Performed By: #### C DP, BMPX ####[facility] [address] [place] [address])[phone] Director: Felipe Randall MD GFR, Amer >60 Normal >60 [facility] Comment on above: Performed By: #### C DP, BMPX ####[facility] [address] [place], [place] [phone])[phone] Director: Felipe Randall MD GFR,non Amer >60 Normal >60 [facility] Comment on above: Performed By: #### C DP, BMPX ####[facility] [id number])[phone] Director: Felipe Randall MD Glucose [Mass/Vol] 91 mg/dL Normal 70-99 [facility] Comment on above: Performed By: #### C DP, BMPX ####[address] [id number])[phone] Director: Felipe Randall MD Potassium [Moles/Vol] 3.9 mmol/L Normal 3.7-5.3 [facility] Comment on above: Performed By: #### C DP, BMPX ####[address] [id number])[phone] Director: Felipe Randall MD Sodium [Moles/Vol] 141 mmol/L Normal 135-144 [facility] Comment on above: Performed By: #### C DP, BMPX ####[address] [id number])[phone] Director: Felipe Randall MD Urea nitrogen [Mass/Vol] 8 mg/dL Normal 6-20 [facility] Comment on above: Performed By: #### C DP, BMPX ####[address] [phone])[phone] Director: Felipe Randall MD BUN/CRE Ratio NOT REPORTED Normal 9-20 [facility] Comment on above: Performed By: #### C DP, BMPX ####[facility] [address] [place] [address] [id number])[phone] Director: Felipe Randall MD Staging: NOT REPORTED Normal [facility] Comment on above: Performed By: #### C DP, BMPX ####[address] [id number])[phone] Director: Felipe Randall MD CBC with Diffon 09-05-2018 Abs. Basophil 0.03 k/uL Normal 0.00-0.20 [facility] Comment on above: Performed By: #### C DP, BMPX ####[address] [address])[phone] Director: Felipe Randall MD Abs.Imm.Granulocyte <0.03 Normal 0.00-0.30 [facility] Comment on above: Performed By: #### C DP, BMPX ####[place], [place] [address])[phone] Director: Felipe Randall MD Abs.Neutrophil (Seg) 3.98 k/uL Normal 1.50-8.10 [facility] Comment on above: Performed By: #### C DP, BMPX ####[place], [place] [address])[phone] Director: Felipe Randall MD Basophils/100 WBC (Bld) 0 % Normal 0-2 [facility] Comment on above: Performed By: #### C DP, BMPX ####[place], [place] [address])[phone] Director: Felipe Randall MD Eosinophils (Bld) [#/Vol] 0.25 10*3/uL Normal 0.00-0.44 [facility] Comment on above: Performed By: #### C DP, BMPX ####[place], [place] [address])[phone] Director: Felipe Randall MD Eosinophils/100 WBC (Bld) 3 % Normal 1-4 [facility] Comment on above: Performed By: #### C DP, BMPX ####[place], [place] [address])[phone] Director: Felipe Randall MD Erythrocyte distribution width (RBC) [Ratio] 13.2 % Normal 11.8-14.4 [facility] Comment on above: Performed By: #### C DP, BMPX ####[address], [place] [id number])[phone] Director: Felipe Randall MD Hematocrit (Bld) [Volume fraction] 36.9 % Normal 36.3-47.1 [facility] Comment on above: Performed By: #### C DP, BMPX ####[address] [phone] Director: Felipe Randall MD Hemoglobin (Bld) [Mass/Vol] 11.3 g/dL Low 11.9-15.1 [facility] Comment on above: Performed By: #### C DP, BMPX ####[address] [address])[phone] Director: Felipe Randall MD Immature granulocytes (Bld) [#/Vol] 0 % Normal 0 [facility] Comment on above: Performed By: #### C DP, BMPX ####[address] [address])[phone] Director: Felipe Randall MD Lymphocytes (Bld) [#/Vol] 2.62 10*3/uL Normal 1.10-3.70 [facility] Comment on above: Performed By: #### C DP, BMPX ####[address] [phone] Director: Felipe Randall MD Lymphocytes/100 WBC (Bld) 36 % Normal 24-43 [facility] Comment on above: Performed By: #### C DP, BMPX ####[address] [phone])[phone] Director: Felipe Randall MD MCH (RBC) [Entitic mass] 28.6 pg Normal 25.2-33.5 [facility] Comment on above: Performed By: #### C DP, BMPX ####[address] [address])[phone] Director: Felipe Randall MD MCHC (RBC) [Mass/Vol] 30.6 g/dL Normal 28.4-34.8 [facility] Comment on above: Performed By: #### C DP, BMPX ####[address] [id number])[phone] Director: Felipe Randall MD MCV (RBC) [Entitic vol] 93.4 fL Normal 82.6-102.9 [facility] Comment on above: Performed By: #### C DP, BMPX ####[address] [address])[phone] Director: Felipe Randall MD Monocytes (Bld) [#/Vol] 0.45 10*3/uL Normal 0.10-1.20 [facility] Comment on above: Performed By: #### C DP, BMPX ####[address] [address])[phone] Director: Felipe Randall MD Monocytes/100 WBC (Bld) 6 % Normal 3-12 [facility] Comment on above: Performed By: #### C DP, BMPX ####[address] [address])[phone] Director: Felipe Randall MD Neutrophil (Seg) 55 % Normal 36-65 [facility] Comment on above: Performed By: #### C DP, BMPX ####[address] [address])[phone] Director: Felipe Randall MD NRBC Automated 0.0 per 100 WBC Normal 0.0 [facility] Comment on above: Performed By: #### C DP, BMPX ####[address] [address])[phone] Director: Felipe Randall MD Platelet mean volume (Bld) [Entitic vol] 10.4 fL Normal 8.1-13.5 [facility] Comment on above: Performed By: #### C DP, BMPX ####[facility] [address] [place] [address] Lab Director: Felipe Randall MD Platelets (Bld) [#/Vol] 258 10*3/uL Normal 138-453 [facility] Comment on above: Performed By: #### C DP, BMPX ####[facility] [address] [place] [address] Lab Director: Felipe Randall MD RBC (Bld) [#/Vol] 3.95 10*6/uL Normal 3.95-5.11 [facility] Comment on above: Performed By: #### C DP, BMPX ####[address] [address] Lab Director: Felipe Randall MD WBC (Bld) [#/Vol] 7.4 10*3/uL Normal 3.5-11.3 [facility] Comment on above: Performed By: #### C DP, BMPX ####[address] [address] Lab Director: Felipe Randall MD Auto Diff Performed NOT REPORTED Normal [facility] Comment on above: Performed By: #### C DP, BMPX ####[facility] [address] [place] [address] Lab Director: Felipe Randall MD Platelets (Bld) [#/Vol] NOT REPORTED Normal [facility] Comment on above: Performed By: #### C DP, BMPX ####[facility] [address] [place] [address] Lab Director: Felipe Randall MD RBC morphology finding Nom (Bld) NOT REPORTED Normal [facility] Comment on above: Performed By: #### C DP, BMPX ####[facility] [address] [place] [address] Lab Director: Felipe Randall MD WBC Morphology NOT REPORTED Normal [facility] Comment on above: Performed By: #### C DP, BMPX ####[facility] [address] [place] [address] Lab Director: Felipe Randall MD APTTon 09-04-2018 aPTT Coag (Bld) [Time] 53.8 s High 20.5-30.5 [facility] Comment on above: Performed By: #### C DP, PTT, BMPX ####[facility] [address] [place], [place] [address])[phone] Director: Felipe Randall MD aPTT Coag (Bld) [Time] 66.8 s High 20.5-30.5 [facility] Comment on above: Performed By: #### U A, UMICAO #### [address] [place] [address] Record Changer Tester: Felipe Randall MD Basic Metab w/rfx MGon 09-04 (cont.) Normal [facility] Comment on above: Result Comment: Aver age GFR for 40-49 years old: 99 mL/min/1.73sq m Chronic Kidney Disease: <60 mL/min/1.73sq m Kidney failure: <15 mL/min/1.73sq m eGFR calculated using average adult body mass. Additional eGFR calculator available at: http://www.ScheduleSoft.Purple Blue Bo/multiple_crcl_2012.htm Performed By: #### C DP, PTT, BMPX ####[facility] [address] [place] [address] Lab Director: Felipe Randall MD Anion gap [Moles/Vol] 11 mmol/L Normal 9-17 [facility] Comment on above: Performed By: #### C DP, PTT, BMPX ####[facility] [address] [place] [address] [id number] Lab Director: Felipe Randall MD Calcium [Mass/Vol] 8.5 mg/dL Low 8.6-10.4 [facility] Comment on above: Performed By: #### C DP, PTT, BMPX ####[facility] [address] [place], [place] [id number])[phone] Director: Felipe Randall MD Chloride [Moles/Vol] 104 mmol/L Normal 98-107 [facility] Comment on above: Performed By: #### C DP, PTT, BMPX ####[facility] [address] [place] [address] Lab Director: Felipe Randall MD CO2 [Moles/Vol] 29 mmol/L Normal 20-31 [facility] Comment on above: Performed By: #### C DP, PTT, BMPX ####[address] [address])[phone] Director: Felipe Randall MD Creatinine [Mass/Vol] 0.51 mg/dL Normal 0.50-0.90 [facility] Comment on above: Performed By: #### C DP, PTT, BMPX ####[address] [address] Lab Director: Felipe Randall MD GFR, Amer >60 Normal >60 [facility] Comment on above: Performed By: #### C DP, PTT, BMPX ####[facility] [address] [place] [address] Lab Director: Felipe Randall MD GFR,non Amer >60 Normal >60 [facility] Comment on above: Performed By: #### C DP, PTT, BMPX ####[facility] [address] [place] [address] Lab Director: Felipe Randall MD Glucose [Mass/Vol] 89 mg/dL Normal 70-99 [facility] Comment on above: Performed By: #### C DP, PTT, BMPX ####[facility] [address] [place] [address] Lab Director: Felipe Randall MD Potassium [Moles/Vol] 3.6 mmol/L Low 3.7-5.3 [facility] Comment on above: Performed By: #### C DP, PTT, BMPX ####[facility] [address] [place], [place] [id number])[phone] Director: Felipe Randall MD Sodium [Moles/Vol] 144 mmol/L Normal 135-144 [facility] Comment on above: Performed By: #### C DP, PTT, BMPX ####[facility] [address] [place], [place] [id number])[phone] Director: Felipe Randall MD Urea nitrogen [Mass/Vol] 8 mg/dL Normal 6-20 [facility] Comment on above: Performed By: #### C DP, PTT, BMPX ####[facility] [address] [place] [address] [id number])[phone] Director: Felipe Randall MD BUN/CRE Ratio NOT REPORTED Normal -20 [facility] Comment on above: Performed By: #### C DP, PTT, BMPX ####[facility] [address] [place], [place] [id number])[phone] Director: Felipe Randall MD Staging: NOT REPORTED Normal [facility] Comment on above: Performed By: #### C DP, PTT, BMPX ####[facility] [address] [place], [place] [id number])[phone] Director: Felipe Randall MD CBC with Diffon 09-04-2018 Abs. Basophil 0.03 k/uL Normal 0.00-0.20 [facility] Comment on above: Performed By: #### U TAYLOR Young #### [facility] [address] [place] [address] Record Changer Tester: Felipe Randall MD Abs.Imm.Granulocyte 0.04 k/uL Normal 0.00-0.30 [facility] Comment on above: Performed By: #### U TAYLOR Young #### [address] [address] Record Changer Tester: Felipe Randall MD Abs.Neutrophil (Seg) 5.49 k/uL Normal 1.50-8.10 [facility] Comment on above: Performed By: #### U ATAYLOR #### [address] [address] Record Changer Tester: Felipe Randall MD Basophils/100 WBC (Bld) 0 % Normal 0-2 [facility] Comment on above: Performed By: #### TAYLOR Masters #### [address] [address] Record Changer Tester: Felipe Randall MD Eosinophils (Bld) [#/Vol] 0.27 10*3/uL Normal 0.00-0.44 [facility] Comment on above: Performed By: #### U ATAYLOR #### [address] [address] Record Changer Tester: Felipe Randall MD Eosinophils/100 WBC (Bld) 3 % Normal 1-4 [facility] Comment on above: Performed By: #### U ANEOO #### [address] [address] Record Changer Tester: Felipe Randall MD Erythrocyte distribution width (RBC) [Ratio] 13.2 % Normal 11.8-14.4 [facility] Comment on above: Performed By: #### U ANEOO #### [address] [address] Record Changer Tester: Felipe Randall MD Hematocrit (Bld) [Volume fraction] 38.6 % Normal 36.3-47.1 [facility] Comment on above: Performed By: #### U ATAYLOR #### [facility] [employer] [address] [place] [address] Record Changer Tester: Felipe Randall MD Hemoglobin (Bld) [Mass/Vol] 12.3 g/dL Normal 11.9-15.1 [facility] Comment on above: Performed By: #### U A, UMICAO #### [facility] [employer] [address] [place] [address] Record Changer Tester: Felipe Randall MD Immature granulocytes (Bld) [#/Vol] 1 % High 0 [facility] Comment on above: Performed By: #### U ANEOO #### [address] [address] Record Changer Tester: Felipe Randall MD Lymphocytes (Bld) [#/Vol] 2.08 10*3/uL Normal 1.10-3.70 [facility] Comment on above: Performed By: #### U A, U[place] #### [address] [address] Record Changer Tester: Felipe Randall MD Lymphocytes/100 WBC (Bld) 25 % Normal 24-43 [facility] Comment on above: Performed By: #### U A, UMICAO #### [facility] [employer] [address] [place] [address] Record Changer Tester: Felipe Randall MD MCH (RBC) [Entitic mass] 28.9 pg Normal 25.2-33.5 [facility] Comment on above: Performed By: #### U A, UMICAO #### [facility] [employer] [address] [place] [address] Record Changer Tester: Felipe Randall MD MCHC (RBC) [Mass/Vol] 31.9 g/dL Normal 28.4-34.8 [facility] Comment on above: Performed By: #### U TAYLOR Young #### [address] [address] Record Changer Tester: Felipe Randall MD MCV (RBC) [Entitic vol] 90.6 fL Normal 82.6-102.9 [facility] Comment on above: Performed By: #### TAYLOR Masters #### [address] [address] Record Changer Tester: Felipe Randall MD Monocytes (Bld) [#/Vol] 0.42 10*3/uL Normal 0.10-1.20 [facility] Comment on above: Performed By: #### TAYLOR Masters #### [address] [address] Record Changer Tester: Felipe Randall MD Monocytes/100 WBC (Bld) 5 % Normal 3-12 [facility] Comment on above: Performed By: #### TAYLOR Masters #### [address] [address] Record Changer Tester: Felipe Randall MD Neutrophil (Seg) 66 % High 36-65 [facility] Comment on above: Performed By: #### TAYLOR Masters #### [place] [address] Record Changer Tester: Felipe Randall MD NRBC Automated 0.0 per 100 WBC Normal 0.0 [facility] Comment on above: Performed By: #### TAYLOR Masters #### [address] [address] Record Changer Tester: Felipe Randall MD Platelet mean volume (Bld) [Entitic vol] 10.5 fL Normal 8.1-13.5 [facility] Comment on above: Performed By: #### U A, UMICAO #### [facility] [place] [address] Record Changer Tester: Felipe Randall MD Platelets (Bld) [#/Vol] 243 10*3/uL Normal 138-453 [facility] Comment on above: Performed By: #### U A, UMICAO #### [facility] [facility] [address] [place] [address] 20842 Record Changer Tester: Felipe Randall MD RBC (Bld) [#/Vol] 4.26 10*6/uL Normal 3.95-5.11 [facility] Comment on above: Performed By: #### U A, UMICAO #### [facility] [address] [place] [address] 04859 Record Changer Tester: Felipe Randall MD WBC (Bld) [#/Vol] 8.3 10*3/uL Normal 3.5-11.3 [facility] Comment on above: Performed By: #### U A, UMICAO #### [facility] [address] [place] [address] 44241 Record Changer Tester: Felipe Randall MD Auto Diff Performed NOT REPORTED Normal [facility] Comment on above: Performed By: #### U A, UMICAO #### [facility] [address] [place] [address] 70780 Record Changer Tester: Felipe Randall MD Platelets (Bld) [#/Vol] NOT REPORTED Normal [facility] Comment on above: Performed By: #### U A, UMICAO #### [facility] [address] [place] [address] 50602 Record Changer Tester: Felipe Randall MD RBC morphology finding Nom (Bld) NOT REPORTED Normal [facility] Comment on above: Performed By: #### U A, UMICAO #### [facility] [address] [place] [address] [phone] Record Changer Tester: Felipe Randall MD WBC Morphology NOT REPORTED Normal [facility] Comment on above: Performed By: #### U TAYLOR Young #### [facility] [employer] [address] [place] [address] 33562 Record Changer Tester: Felipe Randall MD APTTon 09-03-2018 aPTT Coag (Bld) [Time] 50.3 s High 20.5-30.5 [facility] Comment on above: Performed By: #### U TAYLOR Young #### [facility] [address] [place] [address] 34494 Record Changer Tester: Felipe Randall MD aPTT Coag (Bld) [Time] 62.8 s High 20.5-30.5 [facility] Comment on above: Performed By: #### TAYLOR Masters #### [address] [address] Record Changer Tester: Felipe Randall MD aPTT Coag (Bld) [Time] 21.9 s Normal 20.5-30.5 [facility] Comment on above: Performed By: #### TAYLOR Masters #### [facility] [address] [place] [address] 24573 Record Changer Tester: Felipe Randall MD aPTT Coag (Bld) [Time] 22.8 s Normal 20.5-30.5 [facility] Comment on above: Performed By: #### U TAYLOR Young #### [address] [address] Record Changer Tester: Felipe Randall MD Basic Metab w/rfx MGon 09-03 Potassium [Moles/Vol] 3.4 mmol/L Low 3.7-5.3 [facility] Comment on above: Performed By: #### U TAYLOR Young #### [facility] [employer] [address] [place] [address] 37335 Record Changer Tester: Felipe Randall MD Anion gap [Moles/Vol] 12 mmol/L Normal 9-17 [facility] Comment on above: Performed By: #### U A, UMICAO #### [facility] [address] [place] [address] 63070 Record Changer Tester: Felipe Randall MD Calcium [Mass/Vol] 8.8 mg/dL Normal 8.6-10.4 [facility] Comment on above: Performed By: #### U A, UMICAO #### [facility] [address] [place] [address] 58934 Record Changer Tester: Felipe Randall MD Chloride [Moles/Vol] 101 mmol/L Normal 98-107 [facility] Comment on above: Performed By: #### U A UMICAO #### [facility] [address] [place] [address] 57746 Record Changer Tester: Felipe Randall MD CO2 [Moles/Vol] 27 mmol/L Normal 20-31 [facility] Comment on above: Performed By: #### U A, UMICAO #### [facility] [address] [place] [address] 38075 Record Changer Tester: Felipe Randall MD Creatinine [Mass/Vol] 0.64 mg/dL Normal 0.50-0.90 [facility] Comment on above: Performed By: #### U A, UMICAO #### [facility] [address] [place] [address] 77077 Record Changer Tester: Felipe Randall MD GFR, Amer >60 Normal >60 [facility] Comment on above: Performed By: #### U A, UMICAO #### [facility] [address] [place] [address] 52747 Record Changer Tester: Felipe Randall MD GFR,non Amer >60 Normal >60 [facility] Comment on above: Performed By: #### U A, UMICAO #### [facility] [address] [place] [address] Record Changer Tester: Felipe Randall MD Glucose [Mass/Vol] 89 mg/dL Normal 70-99 [facility] Comment on above: Performed By: #### U A, UMICAO #### [facility] [address] [place] [address] Record Changer Tester: Felipe Randall MD Sodium [Moles/Vol] 140 mmol/L Normal 135-144 [facility] Comment on above: Performed By: #### U A, UMICAO #### [facility] [address] [place] [address] 15491 Record Changer Tester: Felipe Randall MD Urea nitrogen [Mass/Vol] 11 mg/dL Normal 6-20 [facility] Comment on above: Performed By: #### U A, UMICAO #### [address] [address] Record Changer Tester: Felipe Randall MD (cont.) Normal [facility] Comment on above: Result Comment: Aver age GFR for 40-49 years old: 99 mL/min/1.73sq m Chronic Kidney Disease: <60 mL/min/1.73sq m Kidney failure: <15 mL/min/1.73sq m eGFR calculated using average adult body mass. Additional eGFR calculator available at: http://www.ScheduleSoft.Purple Blue Bo/multiple_crcl_2012.htm Performed By: #### U A, UMICAO #### [facility] [address] [place] [address] Record Changer Tester: Felipe Randall MD BUN/CRE Ratio NOT REPORTED Normal -20 [facility] Comment on above: Performed By: #### U A, UMICAO #### [facility] [address] [place] [address] 06917 Record Changer Tester: Felipe Randall MD Staging: NOT REPORTED Normal [facility] Comment on above: Performed By: #### U TAYLOR Young #### [facility] [employer] [address] [place] [address] 20561 Record Changer Tester: Felipe Randall MD Basic Metabolic Profon 09-03 Anion gap [Moles/Vol] 10 mmol/L Normal 9-17 [facility] Comment on above: Performed By: #### U TAYLOR Young #### [facility] [address] [place] [address] 05471 Record Changer Tester: Felipe Randall MD Calcium [Mass/Vol] 8.7 mg/dL Normal 8.6-10.4 [facility] Comment on above: Performed By: #### U TAYLOR Young #### [address] [address] Record Changer Tester: Felipe Randall MD Chloride [Moles/Vol] 100 mmol/L Normal 98-107 [facility] Comment on above: Performed By: #### U TAYLOR Young #### [address] [address] Record Changer Tester: Felipe Randall MD CO2 [Moles/Vol] 26 mmol/L Normal 20-31 [facility] Comment on above: Performed By: #### U TAYLOR Young #### [facility] [employer] [address] [place] [address] 58850 Record Changer Tester: Felipe Randall MD Creatinine [Mass/Vol] 0.57 mg/dL Normal 0.50-0.90 [facility] Comment on above: Performed By: #### U TAYLOR Young #### [facility] [employer] [address] [place] [address] 25100 Record Changer Tester: Felipe Randall MD GFR, Amer >60 Normal >60 [facility] Comment on above: Performed By: #### U A, UMICAO #### [facility] [employer] [address] [place] [address] 44074 Record Changer Tester: Felipe Randall MD GFR,non Amer >60 Normal >60 [facility] Comment on above: Performed By: #### U A, UMICAO #### [facility] [address] [place] [address] 58536 Record Changer Tester: Felipe Randall MD Glucose [Mass/Vol] 102 mg/dL High 70-99 [facility] Comment on above: Performed By: #### U A, UMICAO #### [facility] [address] [place] [address] 36477 Record Changer Tester: Felipe Randall MD Potassium [Moles/Vol] 3.5 mmol/L Low 3.7-5.3 [facility] Comment on above: Performed By: #### U A, UMICAO #### [address] [address] Record Changer Tester: Felipe Randall MD Sodium [Moles/Vol] 136 mmol/L Normal 135-144 [facility] Comment on above: Performed By: #### U A, UMICAO #### [facility] [address] [place] [address] 45845 Record Changer Tester: Felipe Randall MD Urea nitrogen [Mass/Vol] 11 mg/dL Normal 6-20 [facility] Comment on above: Performed By: #### U A, UMICAO #### [address] [address] Record Changer Tester: Felipe Randall MD (cont.) [facility] Comment on above: Result Comment: Aver age GFR for 40-49 years old: 99 mL/min/1.73sq m Chronic Kidney Disease: <60 mL/min/1.73sq m Kidney failure: <15 mL/min/1.73sq m eGFR calculated using average adult body mass. Additional eGFR calculator available at: http://www.ScheduleSoft.com/multiple_crcl_2012.htm Performed By: #### TAYLOR Masters #### [address] [address] Record Changer Tester: Felipe Randall MD BUN/CRE Ratio NOT REPORTED Normal 9-20 [facility] Comment on above: Performed By: #### U TAYLOR Young #### [address] [address] Record Changer Tester: Felipe Randall MD Staging: NOT REPORTED Normal [facility] Comment on above: Performed By: #### TAYLOR Masters #### [address] [address] Record Changer Tester: Felipe Randall MD Brain Natri. Peptideon 09-03 Natriuretic peptide B (Bld) [Mass/Vol] 2284 pg/mL High <300 [facility] Comment on above: Result Comment: Pro- BNP results cannot be compared to BNP results. Performed By: #### C DP, BNP, TROPI, BMP, PT, PTT #### [address] [address] Record Changer Tester: Felipe Randall MD Natriuretic peptide B (Bld) [Mass/Vol] Pro-BNP Reference Range: Normal [facility] Comment on above: Result Comment: Rule Out: <300 [place] Zone: Age <50 300-450 Age 50-75 300-900 Age >75 300-1800 Usually represents mild to moderate HF but other cardiopulmonary causes cannot be ruled out. Rule In: Age <50 >450 Age 50-75 >900 Age >75 >1800 Performed By: #### C DP, BNP, TROPI, BMP, PT, PTT #### [address] [address] Record Changer Tester: Felipe Randall MD CBCon 09-03-2018 Erythrocyte distribution width (RBC) [Ratio] 13.4 % Normal 11.8-14.4 [facility] Comment on above: Performed By: #### U TAYLOR Young #### [facility] [address] [place] [address] 49551 Record Changer Tester: Felipe Randall MD Hematocrit (Bld) [Volume fraction] 36.7 % Normal 36.3-47.1 [facility] Comment on above: Performed By: #### U ATAYLOR #### [facility] [address] [place] [address] 92691 Record Changer Tester: Felipe Randall MD Hemoglobin (Bld) [Mass/Vol] 11.7 g/dL Low 11.9-15.1 [facility] Comment on above: Performed By: #### U TAYLOR Young #### [address] 7[address] Record Changer Tester: Felipe Randall MD MCH (RBC) [Entitic mass] 28.4 pg Normal 25.2-33.5 [facility] Comment on above: Performed By: #### U TAYLOR Young #### [address] [address] Record Changer Tester: Felipe Randall MD MCHC (RBC) [Mass/Vol] 31.9 g/dL Normal 28.4-34.8 [facility] Comment on above: Performed By: #### U ATAYLOR #### [address] [address] Record Changer Tester: Felipe Randall MD MCV (RBC) [Entitic vol] 89.1 fL Normal 82.6-102.9 [facility] Comment on above: Performed By: #### U ANEOO #### [facility] [employer] [address] [place] [address] 21826 Record Changer Tester: Felipe Randall MD NRBC Automated 0.0 per 100 WBC Normal 0.0 [facility] Comment on above: Performed By: #### U A, UMICAO #### [address] [address] Record Changer Tester: Felipe Randall MD Platelet mean volume (Bld) [Entitic vol] 10.9 fL Normal 8.1-13.5 [facility] Comment on above: Performed By: #### U A, UMICAO #### [address] [address] Record Changer Tester: Felipe Randall MD Platelets (Bld) [#/Vol] 232 10*3/uL Normal 138-453 [facility] Comment on above: Performed By: #### U A, UMICAO #### [address] [address] Record Changer Tester: Felipe Randall MD RBC (Bld) [#/Vol] 4.12 10*6/uL Normal 3.95-5.11 [facility] Comment on above: Performed By: #### NEO MastersO #### [address] [address] Record Changer Tester: Felipe Randall MD WBC (Bld) [#/Vol] 8.9 10*3/uL Normal 3.5-11.3 [facility] Comment on above: Performed By: #### U A, UMICAO #### [address] [address] Record Changer Tester: Felipe Randall MD CBC with Diffon 09-03-2018 Abs. Basophil 0.04 k/uL Normal 0.00-0.20 [facility] Comment on above: Performed By: #### U A, UMICAO #### [facility] [employer] [address] [place] [address] 72634 Record Changer Tester: Felipe Randall MD Abs.Imm.Granulocyte 0.03 k/uL Normal 0.00-0.30 [facility] Comment on above: Performed By: #### U ANEOO #### [address] [address] Record Changer Tester: Felipe Randall MD Abs.Neutrophil (Seg) 5.69 k/uL Normal 1.50-8.10 [facility] Comment on above: Performed By: #### U A, ENIDICAO #### [address] [address] Record Changer Tester: Felipe Randall MD Basophils/100 WBC (Bld) 0 % Normal 0-2 [facility] Comment on above: Performed By: #### U ANEOO #### [address] [address] Record Changer Tester: Felipe Randall MD Eosinophils (Bld) [#/Vol] 0.15 10*3/uL Normal 0.00-0.44 [facility] Comment on above: Performed By: #### U ANEOO #### [address] [address] Record Changer Tester: Felipe Randall MD Eosinophils/100 WBC (Bld) 2 % Normal 1-4 [facility] Comment on above: Performed By: #### U ANEOO #### [address] [address] Record Changer Tester: Felipe Randall MD Erythrocyte distribution width (RBC) [Ratio] 13.4 % Normal 11.8-14.4 [facility] Comment on above: Performed By: #### U AENIDICAO #### [address] [address] Record Changer Tester: Felipe Randall MD Hematocrit (Bld) [Volume fraction] 37.7 % Normal 36.3-47.1 [facility] Comment on above: Performed By: #### U TAYLOR Young #### [address] [address] Record Changer Tester: Felipe Randall MD Hemoglobin (Bld) [Mass/Vol] 11.6 g/dL Low 11.9-15.1 [facility] Comment on above: Performed By: #### TAYLOR Masters #### [address] [address] Record Changer Tester: Felipe Randall MD Immature granulocytes (Bld) [#/Vol] 0 % Normal 0 [facility] Comment on above: Performed By: #### TAYLOR Masters #### [address] [address] Record Changer Tester: Felipe Randall MD Lymphocytes (Bld) [#/Vol] 3.06 10*3/uL Normal 1.10-3.70 [facility] Comment on above: Performed By: #### TAYLOR Masters #### [place] [address] Record Changer Tester: Felipe Randall MD Lymphocytes/100 WBC (Bld) 32 % Normal 24-43 [facility] Comment on above: Performed By: #### TAYLOR Masters #### [place] [address] Record Changer Tester: Felipe Randall MD MCH (RBC) [Entitic mass] 29.1 pg Normal 25.2-33.5 [facility] Comment on above: Performed By: #### TAYLOR Masters #### [address] [address] Record Changer Tester: Felipe Randall MD MCHC (RBC) [Mass/Vol] 30.8 g/dL Normal 28.4-34.8 [facility] Comment on above: Performed By: #### NEO MastersO #### [address] [address] Record Changer Tester: Felipe Randall MD MCV (RBC) [Entitic vol] 94.7 fL Normal 82.6-102.9 [facility] Comment on above: Performed By: #### U A, UMICAO #### [address] [address] Record Changer Tester: Felipe Randall MD Monocytes (Bld) [#/Vol] 0.56 10*3/uL Normal 0.10-1.20 [facility] Comment on above: Performed By: #### U A, UMICAO #### [address] [address] Record Changer Tester: Felipe Randall MD Monocytes/100 WBC (Bld) 6 % Normal 3-12 [facility] Comment on above: Performed By: #### U A, UMICAO #### [address] [address] Record Changer Tester: Felipe Randall MD Neutrophil (Seg) 60 % Normal 36-65 [facility] Comment on above: Performed By: #### U A, UMICAO #### [address] [address] Record Changer Tester: Felipe Ranadll MD NRBC Automated 0.0 per 100 WBC Normal 0.0 [facility] Comment on above: Performed By: #### U A, UMICAO #### [address] [address] Record Changer Tester: Felipe Randall MD Platelet mean volume (Bld) [Entitic vol] 10.7 fL Normal 8.1-13.5 [facility] Comment on above: Performed By: #### U A, UMICAO #### [address] [address] Record Changer Tester: Felipe Randall MD Platelets (Bld) [#/Vol] 283 10*3/uL Normal 138-453 [facility] Comment on above: Performed By: #### U A, UMICAO #### [facility] [address] [place] [address] 90071 Record Changer Tester: Felipe Randall MD RBC (Bld) [#/Vol] 3.98 10*6/uL Normal 3.95-5.11 [facility] Comment on above: Performed By: #### U A, UMICAO #### [address] [address] Record Changer Tester: Felipe Randall MD WBC (Bld) [#/Vol] 9.5 10*3/uL Normal 3.5-11.3 [facility] Comment on above: Performed By: #### U A, UMICAO #### [address] [address] Record Changer Tester: Felipe Randall MD Auto Diff Performed NOT REPORTED Normal [facility] Comment on above: Performed By: #### U A, UMICAO #### [address] [address] Record Changer Tester: Felipe Randall MD Platelets (Bld) [#/Vol] NOT REPORTED Normal [facility] Comment on above: Performed By: #### U A, UMICAO #### [facility] [address] [place] [address] 9[address]92 Record Changer Tester: Felipe Randall MD RBC morphology finding Nom (Bld) NOT REPORTED Normal [facility] Comment on above: Performed By: #### U A, UMICAO #### [facility] [address] [place] [address] 13155 Record Changer Tester: Felipe Randall MD WBC Morphology NOT REPORTED Normal [facility] Comment on above: Performed By: #### U A, UMICAO #### [address] [address] Record Changer Tester: Felipe Randall MD Abs. Basophil 0.03 k/uL Normal 0.00-0.20 [facility] Comment on above: Performed By: #### C DP, BNP, TROPI, BMP, PT, PTT #### [address] [address] Record Changer Tester: Felipe Randall MD Abs.Imm.Granulocyte 0.03 k/uL Normal 0.00-0.30 [facility] Comment on above: Performed By: #### C DP, BNP, TROPI, BMP, PT, PTT #### [place] [address] Record Changer Tester: Felipe Randall MD Abs.Neutrophil (Seg) 5.21 k/uL Normal 1.50-8.10 [facility] Comment on above: Performed By: #### C DP, BNP, TROPI, BMP, PT, PTT #### [place] [address] Record Changer Tester: Felipe Randall MD Basophils/100 WBC (Bld) 0 % Normal 0-2 [facility] Comment on above: Performed By: #### C DP, BNP, TROPI, BMP, PT, PTT #### [place] [address] Record Changer Tester: Felipe Randall MD Eosinophils (Bld) [#/Vol] 0.13 10*3/uL Normal 0.00-0.44 [facility] Comment on above: Performed By: #### C DP, BNP, TROPI, BMP, PT, PTT #### [address] [address] Record Changer Tester: Felipe Randall MD Eosinophils/100 WBC (Bld) 1 % Normal 1-4 [facility] Comment on above: Performed By: #### C DP, BNP, TROPI, BMP, PT, PTT #### [address] [address] Record Changer Tester: Felipe Randall MD Erythrocyte distribution width (RBC) [Ratio] 13.5 % Normal 11.8-14.4 [facility] Comment on above: Performed By: #### C DP, BNP, TROPI, BMP, PT, PTT #### [address] [address] Record Changer Tester: Felipe Randall MD Hematocrit (Bld) [Volume fraction] 35.2 % Low 36.3-47.1 [facility] Comment on above: Performed By: #### C DP, BNP, TROPI, BMP, PT, PTT #### [address] [address] Record Changer Tester: Felipe Randall MD Hemoglobin (Bld) [Mass/Vol] 11.1 g/dL Low 11.9-15.1 [facility] Comment on above: Performed By: #### C DP, BNP, TROPI, BMP, PT, PTT #### [address] [address] Record Changer Tester: Felipe Randall MD Immature granulocytes (Bld) [#/Vol] 0 % Normal 0 [facility] Comment on above: Performed By: #### C DP, BNP, TROPI, BMP, PT, PTT #### [address] [address] Record Changer Tester: Felipe Randall MD Lymphocytes (Bld) [#/Vol] 3.12 10*3/uL Normal 1.10-3.70 [facility] Comment on above: Performed By: #### C DP, BNP, TROPI, BMP, PT, PTT #### [facility] [address] [place] [address] Record Changer Tester: Felipe Randall MD Lymphocytes/100 WBC (Bld) 34 % Normal 24-43 [facility] Comment on above: Performed By: #### C DP, BNP, TROPI, BMP, PT, PTT #### [address] [address] Record Changer Tester: Felipe Randall MD MCH (RBC) [Entitic mass] 29.1 pg Normal 25.2-33.5 [facility] Comment on above: Performed By: #### C DP, BNP, TROPI, BMP, PT, PTT #### [place] [address] Record Changer Tester: Felipe Randall MD MCHC (RBC) [Mass/Vol] 31.5 g/dL Normal 28.4-34.8 [facility] Comment on above: Performed By: #### C DP, BNP, TROPI, BMP, PT, PTT #### [address] [address] Record Changer Tester: Felipe Randall MD MCV (RBC) [Entitic vol] 92.1 fL Normal 82.6-102.9 [facility] Comment on above: Performed By: #### C DP, BNP, TROPI, BMP, PT, PTT #### [place] [address] Record Changer Tester: Felipe Randall MD Monocytes (Bld) [#/Vol] 0.62 10*3/uL Normal 0.10-1.20 [facility] Comment on above: Performed By: #### C DP, BNP, TROPI, BMP, PT, PTT #### [address] [address] Record Changer Tester: Felipe Randall MD Monocytes/100 WBC (Bld) 7 % Normal 3-12 [facility] Comment on above: Performed By: #### C DP, BNP, TROPI, BMP, PT, PTT #### [address] [address] Record Changer Tester: Felipe Randall MD Neutrophil (Seg) 57 % Normal 36-65 [facility] Comment on above: Performed By: #### C DP, BNP, TROPI, BMP, PT, PTT #### [address] [address] Record Changer Tester: Felipe Randall MD NRBC Automated 0.0 per 100 WBC Normal 0.0 [facility] Comment on above: Performed By: #### C DP, BNP, TROPI, BMP, PT, PTT #### [address] [address] Record Changer Tester: Felipe Randall MD Platelet mean volume (Bld) [Entitic vol] 10.4 fL Normal 8.1-13.5 [facility] Comment on above: Performed By: #### C DP, BNP, TROPI, BMP, PT, PTT #### [address] [address] Record Changer Tester: Felipe Randall MD Platelets (Bld) [#/Vol] 278 10*3/uL Normal 138-453 [facility] Comment on above: Performed By: #### C DP, BNP, TROPI, BMP, PT, PTT #### [address] [address] Record Changer Tester: Felipe Randall MD RBC (Bld) [#/Vol] 3.82 10*6/uL Low 3.95-5.11 [facility] Comment on above: Performed By: #### C DP, BNP, TROPI, BMP, PT, PTT #### [address] [address] Record Changer Tester: Felipe Randall MD WBC (Bld) [#/Vol] 9.1 10*3/uL Normal 3.5-11.3 [facility] Comment on above: Performed By: #### C DP, BNP, TROPI, BMP, PT, PTT #### [address] [address] Record Changer Tester: Felipe Randall MD Auto Diff Performed NOT REPORTED Normal [facility] Comment on above: Performed By: #### C DP, BNP, TROPI, BMP, PT, PTT #### [address] [address] Record Changer Tester: Felipe Randall MD Platelets (Bld) [#/Vol] NOT REPORTED Normal [facility] Comment on above: Performed By: #### C DP, BNP, TROPI, BMP, PT, PTT #### [address] [address] Record Changer Tester: Felipe Randall MD RBC morphology finding Nom (Bld) NOT REPORTED Normal [facility] Comment on above: Performed By: #### C DP, BNP, TROPI, BMP, PT, PTT #### [address] [address] Record Changer Tester: Felipe Randall MD WBC Morphology NOT REPORTED Normal [facility] Comment on above: Performed By: #### C DP, BNP, TROPI, BMP, PT, PTT #### [address] [address] Record Changer Tester: Felipe Randall MD Lactic Acidon 09-03-2018 Lactate [Moles/Vol] 1.0 mmol/L Normal 0.7-2.1 [facility] Comment on above: Performed By: #### TAYLOR Masters #### [facility] [address] [place] [address] Record Changer Tester: Felipe Randall MD Lactate [Moles/Vol] NOT REPORTED Normal [facility] Comment on above: Performed By: #### U ATAYLOR #### [facility] [address] [place] [address] Record Changer Tester: Felipe Randall MD Liver Profileon 09-03-2018 Albumin [Mass/Vol] 2.9 g/dL Low 3.5-5.2 [facility] Comment on above: Performed By: #### U ANEOO #### [facility] [address] [place] [address] Record Changer Tester: Felipe Randall MD Albumin/Globulin [Mass ratio] 0.7 {ratio} Low 1.0-2.5 [facility] Comment on above: Performed By: #### U ATAYLOR #### [facility] [address] [place] [phone] Record Changer Tester: Felipe Randall MD Alkaline Phos 50 U/L Normal 35-104 [facility] Comment on above: Performed By: #### U ATAYLOR #### [facility] [address] [place] [phone] Record Changer Tester: Felipe Randall MD ALT [Catalytic activity/Vol] 6 U/L Normal 5-33 [facility] Comment on above: Performed By: #### U ATAYLOR #### [facility] [address] [place] [address] Record Changer Tester: Felipe Randall MD AST [Catalytic activity/Vol] 16 U/L Normal <32 [facility] Comment on above: Performed By: #### U A UMICAO #### [facility] [address] [place] [address] Record Changer Tester: Felipe Randall MD Bilirubin Ql (U) 0.32 mg/dL Normal 0.3-1.2 [facility] Comment on above: Performed By: #### U AENIDICAO #### [facility] [address] [place] [address] Record Changer Tester: Felipe Randall MD Bilirubin, Indirect 0.22 mg/dL Normal 0.00-1.00 [facility] Comment on above: Performed By: #### U AENIDICAO #### [facility] [address] [place] [address] Record Changer Tester: Felipe Randall MD Bilirubin.direct [Mass/Vol] 0.10 mg/dL Normal <0.31 [facility] Comment on above: Performed By: #### U A, UMICAO #### [facility] [address] [place] [address] Record Changer Tester: Felipe Randall MD Protein [Mass/Vol] 7.0 g/dL Normal 6.4-8.3 [facility] Comment on above: Performed By: #### U A, UMICAO #### [facility] [address] [place] [address] Record Changer Tester: Felipe Randall MD Globulin (S) [Mass/Vol] NOT REPORTED Normal 1.5-3.8 [facility] Comment on above: Performed By: #### U A UMICAO #### [facility] [address] [place] [address] Record Changer Tester: Felipe Randall MD MRSA, DNA, Nasalon 9 MRSA, DNA, Nasal POSITIVE: MRSA DNA detected by nucleic acid amplification. Abnormal NMRSAA [facility] Comment on above: Result Comment: Results should be used as an adjunct to nosocomial control efforts to identify patients needing enhanced precautions. The test is not intended to identify patients with staphylococcal infections. Results should not be used to guide or monitor treatment for MRSA infections. Performed By: #### U A, UMICAO #### [facility] [address] [place] [phone] Record Changer Tester: Felipe Randall MD Specimen Description .NASAL SWAB Normal [facility] Comment on above: Performed By: #### U ANEOO #### [facility] [place] [address] Record Changer Tester: Felipe Randall MD Magnesiumon 09-03-2018 Magnesium [Mass/Vol] 1.5 mg/dL Low 1.6-2.6 [facility] Comment on above: Performed By: #### U A UMJOSETTE #### [facility] [address] [place] [phone] Record Changer Tester: Felipe Randall MD PTon 09-03-2018 INR Coag (PPP) [Relative time] 1.0 {INR} Normal [facility] Comment on above: Result Comment: Therapeutic Range: Moderate Anticoagulant Intensity: INR = 2.0-3.0 High Anticoagulant Intensity: INR = 2.5-3.5 Performed By: #### U ATAYLOR #### [facility] [address] [place] [address] Record Changer Tester: Felipe Randall MD PT Coag (PPP) [Time] 10.6 s Normal 9.0-12.0 [facility] Comment on above: Performed By: #### U TAYLOR Young #### [facility] [address] [place] [address] Record Changer Tester: Felipe Randall MD INR Coag (PPP) [Relative time] 1.0 {INR} Normal [facility] Comment on above: Result Comment: Therapeutic Range: Moderate Anticoagulant Intensity: INR = 2.0-3.0 High Anticoagulant Intensity: INR = 2.5-3.5 Performed By: #### U A UMICAO #### [facility] [address] [place] [address] Record Changer Tester: Felipe Randall MD PT Coag (PPP) [Time] 10.8 s Normal 9.0-12.0 [facility] Comment on above: Performed By: #### U AENIDICAKamran #### [facility] [address] [place] [phone] Record Changer Tester: Felipe Randall MD TSH w/reflex to FT4on 2018 TSH Qn 1.30 m[IU]/L Normal 0.30-5.00 [facility] Comment on above: Performed By: #### U A, TAYLOR #### [facility] [address] [place] [address] Record Changer Tester: Felipe Randall MD Troponinon 09-03-2018 Troponin I.cardiac [Mass/Vol] 96 ng/L Critically high 0-14 [facility] Comment on above: Result Comment: High Sensitivity Troponin values cannot be compared with other Troponin methodologies. Patients with high levels of Biotin oral intake (i.e >5mg/day) may have falsely decreased Troponin levels. Samples collected within 8 hours of biotin intake may require additional information for diagnosis. Previous Alert Value Reported Performed By: #### U A, TAYLOR #### [facility] [address] [place] [address] Record Changer Tester: Felipe Randall MD Troponin I.cardiac [Mass/Vol] NOT REPORTED Normal [facility] Comment on above: Performed By: #### U A, TAYLOR #### [facility] [address] [place] [address] Record Changer Tester: Felipe Randall MD Troponin I.cardiac [Mass/Vol] 133 ng/L Critically high 0-14 [facility] Comment on above: Result Comment: High Sensitivity Troponin values cannot be compared with other Troponin methodologies. Patients with high levels of Biotin oral intake (i.e >5mg/day) may have falsely decreased Troponin levels. Samples collected within 8 hours of biotin intake may require additional information for diagnosis. Previous Alert Value Reported Performed By: #### U A, UMKONGO #### [facility] [address] [place] [phone] Record Changer Tester: Felipe Randall MD Troponin I.cardiac [Mass/Vol] NOT REPORTED Normal <0.03 [facility] Comment on above: Performed By: #### U NEO YoungO #### [facility] [address] [place] [address] [phone] Record Changer Tester: Felipe Randall MD Troponin I.cardiac [Mass/Vol] 132 ng/L Critically high 0-14 [facility] Comment on above: Result Comment: High Sensitivity Troponin values cannot be compared with other Troponin methodologies. Patients with high levels of Biotin oral intake (i.e >5mg/day) may have falsely decreased Troponin levels. Samples collected within 8 hours of biotin intake may require additional information for diagnosis. Performed By: #### C DP, BNP, TROPI, BMP, PT, PTT #### [facility] [address] [place] [address] [phone] Record Changer Tester: Felipe Randall MD Troponin I.cardiac [Mass/Vol] NOT REPORTED Normal [facility] Comment on above: Performed By: #### C DP, BNP, TROPI, BMP, PT, PTT #### [facility] [address] [place] [address] [phone] Record Changer Tester: Felipe Randall MD Vitamin D 25 OHon 09-03-2018 Vitamin D 25 OH 34.6 ng/mL Normal 30.0-100.0 [facility] Comment on above: Result Comment: Reference Range: Vitamin D status Range Deficiency <20 ng/mL Mild Deficiency 20-30 ng/mL Sufficiency 30-100 ng/mL Toxicity >100 ng/mL Performed By: #### U A, UMICAO #### [address] [id number] Record Changer Tester: Felipe Randall MD Cult,Urineon 09-01-2018 Cult,Urine Specimen Description .URINE Special Requests 1ST INSERTION Culture AEROCOCCUS URINAE >[id number] CFU/ML There are no CLSI interpretive guidelines for routine susceptibility testing. Aerococcus species are reported to be susceptible to penicillin. A. urinae has also been described as susceptible to amoxicillin and nitrofurantoin (for treatment of urinary tract infections only). Report Status FINAL 08/31/2018 Normal [facility] Comment on above: Performed By: #### U RC #### [address] [address] Record Changer Tester: Felipe Randall MD CBCon 08-31-2018 Erythrocyte distribution width (RBC) [Ratio] 13.4 % Normal 11.8-14.4 [facility] Comment on above: Performed By: #### C BC #### [address] [address] Record Changer Tester: Felipe Randall MD Hematocrit (Bld) [Volume fraction] 39.8 % Normal 36.3-47.1 [facility] Comment on above: Performed By: #### C BC #### [address] [address] Record Changer Tester: Felipe Randall MD Hemoglobin (Bld) [Mass/Vol] 11.6 g/dL Low 11.9-15.1 [facility] Comment on above: Performed By: #### C BC #### [address] [address] Record Changer Tester: Felipe Randall MD MCH (RBC) [Entitic mass] 28.9 pg Normal 25.2-33.5 [facility] Comment on above: Performed By: #### C BC #### [address] [address] Record Changer Tester: Felipe Randall MD MCHC (RBC) [Mass/Vol] 29.1 g/dL Normal 28.4-34.8 [facility] Comment on above: Performed By: #### C BC #### [address] [address] Record Changer Tester: Felipe Randall MD MCV (RBC) [Entitic vol] 99.0 fL Normal 82.6-102.9 [facility] Comment on above: Performed By: #### C BC #### [address] [address] Record Changer Tester: Felipe Randall MD NRBC Automated 0.0 per 100 WBC Normal 0.0 [facility] Comment on above: Performed By: #### C BC #### [address] [address] Record Changer Tester: Felipe Randall MD Platelet mean volume (Bld) [Entitic vol] 11.2 fL Normal 8.1-13.5 [facility] Comment on above: Performed By: #### C BC #### [address] [address] Record Changer Tester: Felipe Randall MD Platelets (Bld) [#/Vol] 239 10*3/uL Normal 138-453 [facility] Comment on above: Performed By: #### C BC #### [address] [address] Record Changer Tester: Felipe Randall MD RBC (Bld) [#/Vol] 4.02 10*6/uL Normal 3.95-5.11 [facility] Comment on above: Performed By: #### C BC #### [address] [address] Record Changer Tester: Felipe Randall MD WBC (Bld) [#/Vol] 10.1 10*3/uL Normal 3.5-11.3 [facility] Comment on above: Performed By: #### C BC #### [address] [address] Record Changer Tester: Felipe Randall MD XR CERVICAL SPINE (2-3 [...] Sanaz Mullins MD 08/31/18 Final result Normal [facility] XR CERVICAL SPINE (2-3 VIEWS) EXAMINATION: 2 [...] Pepe Mckeon MD 08/31/18 Final result Normal [facility] Type + Screenon 08-30-2018 Type + Screen Sample Expiration 09/02/2018 Arm Band Number [id number] ABO/Rh(D) AB POSITIVE Antibody Screen NEGATIVE Normal [facility] Comment on above: Performed By: #### T YS #### [facility] [address] [place] [phone] Record Changer Tester: Felipe Randall MD Urinalysis, Routineon 2018 Acetoacetic Acid,Ur Negative Normal NEG [facility] Comment on above: Performed By: #### U TAYLOR Young #### [facility] [address] [place] [address] Record Changer Tester: Felipe Randall MD Bilirubin, SemiQt,Ur Negative Normal NEG [facility] Comment on above: Performed By: #### U TAYLOR Young #### [facility] [address] [place] [address] Record Changer Tester: Felipe Randall MD Color (U) YELLOW Normal YEL [facility] Comment on above: Performed By: #### U A, UMICAO #### [facility] [address] [place] [address] Record Changer Tester: Felipe Randall MD Glucose Ql (U) Negative Normal NEG [facility] Comment on above: Performed By: #### U A, UMICAO #### [facility] [address] [place] [address]61 Record Changer Tester: Felipe Randall MD Hemoglobin, Ur SMALL Abnormal NEG [facility] Comment on above: Performed By: #### U A, UMICAO #### [facility] [address] [place] [address] Record Changer Tester: Felipe Randall MD Leukocyte esterase Test strip Ql (U) LARGE Abnormal NEG [facility] Comment on above: Performed By: #### U A, UMICAO #### [address] [address] Record Changer Tester: Felipe Randall MD Nitrite,Ur Negative Normal NEG [facility] Comment on above: Performed By: #### U A, UMICAO #### [address] [address] Record Changer Tester: Felipe Randall MD pH (U) 6.0 [pH] Normal 5.0-8.0 [facility] Comment on above: Performed By: #### U A, UMICAO #### [address] [address] Record Changer Tester: Felipe Randall MD Protein Ql (U) TRACE Abnormal NEG [facility] Comment on above: Performed By: #### U A, UMICAO #### [facility] [address] [place] [address] Record Changer Tester: Felipe Randall MD Specific gravity (U) [Rel density] 1.008 Normal 1.005-1.030 [facility] Comment on above: Performed By: #### U A, UMICAO #### [facility] [address] [place] [address] Record Changer Tester: Felipe Randall MD Turbidity TURBID Abnormal CLEAR [facility] Comment on above: Performed By: #### U A, UMICAO #### [facility] [address] [place] [address] Record Changer Tester: Felipe Randall MD Urobilinogen,Ur Normal Normal NORM [facility] Comment on above: Performed By: #### U A, UMICAO #### [address] [address] Record Changer Tester: Felipe Randall MD Comment NOT REPORTED Normal [facility] Comment on above: Performed By: #### U A, UMICAO #### [address] [address] Record Changer Tester: Felipe Randall MD Urinalysis,Microon 9 ----- Normal [facility] Comment on above: Performed By: #### U A, UMICAO #### [address] [address] Record Changer Tester: Felipe Randall MD Bacteria LM.HPF (Urine sed) [#/Area] MANY Abnormal NONE [facility] Comment on above: Performed By: #### U A, UMICAO #### [address] [address] Record Changer Tester: Felipe Randall MD Casts LM.LPF (Urine sed) [#/Area] 2 TO 5 HYALINE Normal 0-8 [facility] Comment on above: Result Comment: Refe rence range defined for non-centrifuged specimen. Performed By: #### U A, UMICAO #### [facility] [address] [place] [address] Record Changer Tester: Felipe Randall MD Epithelial cells LM.HPF (Urine sed) [#/Area] 0 TO 2 Normal 0-5 [facility] Comment on above: Performed By: #### U A, UMICAO #### [facility] [address] [place] [address] Record Changer Tester: Felipe Randall MD RBC (U) [#/Vol] 5 TO 10 Normal 0-4 [facility] Comment on above: Result Comment: Refe rence range defined for non-centrifuged specimen. Performed By: #### U A, UMICAO #### [facility] [address] [place] [address] Record Changer Tester: Felipe Randall MD WBC (U) [#/Vol] TOO NUMEROUS TO COUNT Normal 0-5 [facility] Comment on above: Performed By: #### U A, UMICAO #### [facility] [address] [place] [address] Record Changer Tester: Felipe Randall MD Amorphous sediment LM Ql (Urine sed) NOT REPORTED Normal NONE [facility] Comment on above: Performed By: #### U A, UMICAO #### [facility] [address] [place] [phone] Record Changer Tester: Felipe Randall MD Crystals LM Nom (Urine sed) NOT REPORTED Normal NONE [facility] Comment on above: Performed By: #### U A, UMICAO #### [facility] [address] [place] [address]12 Record Changer Tester: Felipe Randall MD Epithelial, Renal NOT REPORTED Normal 0 [facility] Comment on above: Performed By: #### U A, UMICAO #### [facility] [address] [place] [address] [phone] Record Changer Tester: Felipe Randall MD Mucus Strands NOT REPORTED Normal NONE [facility] Comment on above: Performed By: #### U A, UMICAO #### [facility] [address] [place], [place] [phone] Record Changer Tester: Felipe Randall MD Other Observations NOT REPORTED Normal NREQ [facility] Comment on above: Performed By: #### U A, UMICAO #### [facility] [address] [place] [phone] Record Changer Tester: Felipe Randall MD Trichomonas NOT REPORTED Normal NONE [facility] Comment on above: Performed By: #### U A, UMICAO #### [facility] [address] [place] [address] [phone] Record Changer Tester: Felipe Randall MD Yeast LM Ql (Urine sed) NOT REPORTED Normal [facility] Comment on above: Performed By: #### U A, UMICAO #### [address] [address] Record Changer Tester: Felipe Randall MD MRI CERVICAL SPINE WO [...] Ilsa Finch MD 07/14/[address] Final [address] [facility] Vital Signs Date Time Vital Sign Value Performing Clinician Facility 04-19-2023 14:07-0400 Body weight 158.76 kg Apurva Campa MD Work Phone: [facility] 04-19-2023 14:07-0400 Diastolic blood pressure 87 mm[Hg] Apurva Campa MD Work Phone: [facility] 04-19-2023 14:07-0400 Heart rate 80 /min Apurva Campa MD Work Phone: [facility] 04-19-2023 14:07-0400 Systolic blood pressure 131 mm[Hg] Apurva Campa MD Work Phone: [facility] 02-16-2023 10:00-0500 Body height 187.96 cm Lon Ibrahim Other [facility] 02-16-2023 10:00-0500 Body mass index (BMI) [Ratio] 45.32 kg/m2 Lonalondra Mckeons Other [facility] 02-16-2023 10:00-0500 Body weight 160.12 kg Lon Jean-Pierres Other [facility] 02-16-2023 10:00-0500 Diastolic blood pressure 86 mm[Hg] Lon Kuns Other [facility] 02-16-2023 10:00-0500 Respiratory rate 18 /min Lon Jean-Pierres Other [facility] 02-16-2023 10:00-0500 SaO2% (BldA) [Mass fraction] 93 % Lonalondra Mckeons Other [facility] 02-16-2023 10:00-0500 Systolic blood pressure 126 mm[Hg] Lon Kuns Other [facility] 01-12-2023 17:40-0500 Body height 187.96 cm Kelly Mcdowell Other [facility] 01-12-2023 17:40-0500 Body mass index (BMI) [Ratio] 38.51 kg/m2 Kelly Mcdowell Other [facility] 01-12-2023 17:40-0500 Body temperature 97.9 [degF] Kelly Mcdowell Other [facility] 01-12-2023 17:40-0500 Body weight 136.08 kg Kelly Mcdowell Other [facility] 01-12-2023 17:40-0500 Respiratory rate 18 /min Kelly Mcdowell Other [facility] 01-12-2023 17:40-0500 SaO2% (BldA) [Mass fraction] 93 % Kelly Mcdowell Other [facility] 12-21-2022 11:56-0500 Body height 188 cm Moises Willis MD Work Phone: [facility] 12-21-2022 11:56-0500 Body weight 136.08 kg Moises Willis MD Work Phone: [facility] 12-21-2022 11:56-0500 Diastolic blood pressure 91 mm[Hg] Moises Willis MD Work Phone: [facility] 12-21-2022 11:56-0500 Heart rate 87 /min Moises Willis MD Work Phone: [facility] 12-21-2022 11:56-0500 Respiratory rate 16 /min Moises Willis MD Work Phone: [facility] 12-21-2022 11:56-0500 SaO2% (BldA) [Mass fraction] 98 % Moises Willis MD Work Phone: [facility] 12-21-2022 11:56-0500 Systolic blood pressure 122 mm[Hg] Moises Willis MD Work Phone: [facility] 09-21-2022 09:26-0400 Body height 188 cm Moises Willis MD Work Phone: [facility] 09-21-2022 09:26-0400 Body weight 136.08 kg Moises Willis MD Work Phone: [facility] 09-21-2022 09:26-0400 Diastolic blood pressure 67 mm[Hg] Moises Willis MD Work Phone: [facility] 09-21-2022 09:26-0400 Heart rate 77 /min Moises Willis MD Work Phone: [facility] 09-21-2022 09:26-0400 Respiratory rate 18 /min Moises Willis MD Work Phone: [facility] 09-21-2022 09:26-0400 SaO2% (BldA) [Mass fraction] 96 % Moises Willis MD Work Phone: [facility] 09-21-2022 09:26-0400 Systolic blood pressure 119 mm[Hg] Moises Willis MD Work Phone: [facility] 03-26-2022 11:15-0500 Body height 187.96 cm Lon Ibrahim Other [facility] 03-26-2022 11:15-0500 Body mass index (BMI) [Ratio] 42.83 kg/m2 Lonalondra Ibrahim Other [facility] 03-26-2022 11:15-0500 Body weight 151.32 kg Lon [employer] Other [facility] 03-26-2022 11:15-0500 Diastolic blood pressure 76 mm[Hg] Lonalondra Mckeons Other [facility] 03-26-2022 11:15-0500 Respiratory rate 16 /min Lon [employer] Other [facility] 03-26-2022 11:15-0500 SaO2% (BldA) [Mass fraction] 95 % Lon [employer] Other [facility] 03-26-2022 11:15-0500 Systolic blood pressure 112 mm[Hg] Lon Jean-Pierres Other [facility] 02-26-2022 11:15-0500 Body height 187.96 cm Lon Kuns Other [facility] 02-26-2022 11:15-0500 Body mass index (BMI) [Ratio] 43.65 kg/m2 Lon Kuns Other [facility] 02-26-2022 11:15-0500 Body weight 154.22 kg Lon Kuns Other [facility] 02-26-2022 11:15-0500 Diastolic blood pressure 84 mm[Hg] Lon Kuns Other [facility] 02-26-2022 11:15-0500 Respiratory rate 16 /min Lon Kuns Other [facility] 02-26-2022 11:15-0500 SaO2% (BldA) [Mass fraction] 95 % Lon Kuns Other [facility] 02-26-2022 11:15-0500 Systolic blood pressure 136 mm[Hg] Lon Kuns Other [facility] 10-24-2021 14:30-0400 Body height 187.96 cm Lon Kuns Other [facility] 09-16-2021 08:20-0400 Blood Pressure Location Mihir Cheatham Jr. [facility] 09-16-2021 08:20-0400 Respiratory rate 16 /min Mihir Cheatham Jr. [facility] 07-09-2021 13:05-0400 Blood Pressure Location ANGELITA PAEZ [facility] 07-09-2021 13:05-0400 Diastolic blood pressure 89 mm[Hg] ANGELITA PAEZ [facility] 07-09-2021 13:05-0400 Heart rate 79 /min ANGELITA PAEZ [facility] 07-09-2021 13:05-0400 Systolic blood pressure 125 mm[Hg] ANGELITA PAEZ [facility] [facility] Date Encounter Type Care Provider Facility Start: 06-22-2023 ambulatory [facility] Facility: [facility] Start: 05-04-2023 Telephone encounter Apurva Campa MD Work Phone: [facility] Adult Start: 05-04-2023 End: 05-04-2023 ambulatory LON IBRAHIM Facility:[facility] Start: 04-26-2023 Chart abstracting Apurva Gary Work Phone: Urology Start: 04-20-2023 Telephone encounter Apurva Campa MD Work Phone: Urology Start: 04-19-2023 End: 04-20-2023 ambulatory APURVA CAMPA Facility:[facility] Start: 04-19-2023 End: 04-19-2023 Patient encounter procedure Apurva Campa MD Work Phone: Urology Comment on above: Bilateral hydronephr osis (Primary Dx); Bladder mass; Hydronephrosis, unspecified hydronephrosis type; Mild protein-calorie malnutrition (HCC); Morbid (severe) obesity due to excess calories (HCC) Start: 04-15-2023 End: 04-15-2023 ambulatory LON IBRAHIM Facility:[facility] Start: 04-15-2023 End: 04-15-2023 Telemedicine consultation with patient [facility] Work Phone: [facility] Start: 04-15-2023 End: 04-15-2023 ambulatory LON MCKEONAna Radiology Comment on above: Other hydronephrosis (Primary Dx); Bladder mass Start: 04-15-2023 End: 04-15-2023 Subsequent hospital visit by physician [facility] Ultrasound Comment on above: Abnormal finding of diagnostic imaging [R93.89] Start: 03-30-2023 End: 03-30-2023 ambulatory LON IBRAHIM Facility:[facility] Start: 03-25-2023 Telephone encounter Janina Peterson ams, APRN.SHOWROOM MANAGER Work Phone: Radiology Start: 03-24-2023 E-mail encounter harriett rowan caregiver Nicole Engle PA-C Work Phone: [facility] Start: 03-24-2023 Follow-up encounter Nicole trivedi PA-C Work Phone: Radiology Comment on above: Actionable Findings Follow-Up Start: 02-16-2023 End: 02-16-2023 ambulatory Lon Ibrahim Other [facility] Other Start: 02-16-2023 Patient encounter procedure Lon Ibrahim [facility] Start: 01-15-2023 End: 01-15-2023 ambulatory Lon Ibrahim Facility:[facility] Start: 01-15-2023 End: 01-15-2023 ambulatory DO Lon Jean-Pierres Work Phone: [facility] Work Phone: Start: 01-15-2023 End: 01-15-2023 Patient encounter procedure DO Lon Jean-Pierres Work Phone: [facility] Work Phone: Start: 01-13-2023 End: 01-13-2023 ambulatory Lon Ibrahim Other [facility] Other Start: 01-13-2023 Telephone encounter Lon Ibrahim [facility] Start: 01-12-2023 End: 01-12-2023 Departed Referred DO Lon Ibrahim Work Phone: [facility] [place] Work Phone: Start: 01-12-2023 End: 01-12-2023 ambulatory PHYSICIAN NO [facility] Other Start: 01-12-2023 Office outpatient vi sit 15 minutes Kelly Mcdowell [facility] Start: 01-08-2023 End: 01-08-2023 ambulatory Lon Ibrahim Other [facility] Other Start: 01-08-2023 Telephone encounter Lon Ibrahim [facility] Start: 12-21-2022 End: 12-21-2022 ambulatory MOISES WILLIS Facility:[facility] Start: 12-21-2022 End: 12-21-2022 Patient encounter procedure Moises Willis MD Work Phone: [facility] Comment on above: Spinal stenosis, lum bar region with neurogenic claudication (Primary Dx) Start: 12-21-2022 End: 12-21-2022 Subsequent hospital visit by physician [facility] J1-4 Work Phone: Radiology Comment on above: Spinal stenosis, lum bar region with neurogenic claudication [M48.062] Start: 11-30-2022 End: 11-30-2022 ambulatory Lon Ibrahim Other [facility] Other Start: 11-30-2022 Telephone encounter Lon Ibrahim [facility] Start: 11-27-2022 End: 11-27-2022 ambulatory CHAMP CARR Facility:[facility] Start: 11-27-2022 End: 11-27-2022 ambulatory Champ Carr MICHEL Work Phone: [facility] Comment on above: Spinal stenosis, lum bar region with neurogenic claudication (Primary Dx); Spinal stenosis of lumbar region with neurogenic claudication Start: 11-27-2022 End: 11-27-2022 Telemedicine consultation with patient Champ Carr MICHEL Work Phone: [facility] Start: 11-16-2022 End: 11-16-2022 ambulatory MOISES WILLIS Facility:[facility] Start: 11-16-2022 End: 11-16-2022 Subsequent hospital visit by physician Mri [facility] [place] (Lg Bore/1.5t) Radiology MRI Comment on above: Spinal stenosis of l umbar region, unspecified whether neurogenic claudication present [M48.061] Start: 10-16-2022 ambulatory Moises Willis MD Work Phone: [facility] Comment on above: mri dvd Start: 10-09-2022 End: 10-09-2022 ambulatory Lon Ibrahim Other [facility] Other Start: 10-09-2022 Telephone encounter Lon Ibrahim [facility] Start: 09-24-2022 End: 09-24-2022 ambulatory oLn Ibrahim Other [facility] Other Start: 09-24-2022 Telephone encounter Lon Ibrahim [facility] Start: 09-21-2022 End: 09-21-2022 ambulatory MOISES WILLIS Facility:[facility] Start: 09-21-2022 End: 09-21-2022 Subsequent hospital visit by physician Xr [facility] Radiology Comment on above: Spinal stenosis of l umbar region, unspecified whether neurogenic claudication present [M48.061] Start: 09-21-2022 End: 09-22-2022 ambulatory LON IBRAHIM Facility:[facility] Start: 09-21-2022 End: 09-21-2022 Patient encounter procedure Moises Willis MD Work Phone: [facility] Comment on above: Spinal stenosis of l umbar region, unspecified whether neurogenic claudication present (Primary Dx); Spinal stenosis in cervical region; Arm weakness Start: 09-10-2022 End: 09-10-2022 ambulatory Lon Alexandria Other [facility] [employer] Other Start: 09-10-2022 Telephone encounter Lon Ibrahim [facility] Start: 09-03-2022 End: 09-03-2022 ambulatory Lon Ibrahim Other [employer] [facility] [employer] Other Start: 09-03-2022 Telephone encounter Lon Ibrahim [facility] Start: 07-28-2022 End: 07-28-2022 ambulatory Bryce Lara LOADING MACHINE OPERATOR.SHOWROOM MANAGER Work Phone: [facility] Comment on above: Emg Start: 07-28-2022 Telephone encounter Bryce polanco LOADING MACHINE OPERATOR.SHOWROOM MANAGER Work Phone: [facility] Comment on above: Patient Update Start: 07-17-2022 Telephone encounter Bryce polanco LOADING MACHINE OPERATOR.SHOWROOM MANAGER Work Phone: Neurology Comment on above: MRI Report Start: 07-16-2022 Telephone encounter Bryce polanco LOADING MACHINE OPERATOR.SHOWROOM MANAGER Work Phone: Neurology Comment on above: Scans Start: 07-13-2022 End: 07-16-2022 ambulatory BRYCE LARA [facility] Start: 07-13-2022 End: 07-15-2022 Subsequent hospital visit by physician [facility] Cat Scan Room [facility] CT Scan Comment on above: Spinal stenosis, cer vical region Start: 06-29-2022 End: 06-30-2022 ambulatory LON IBRAHIM Facility:[facility] Start: 06-17-2022 Chart abstracting Unk Pcp (Pantera broderick) Neurology Start: 06-16-2022 End: 06-17-2022 ambulatory Nicole KEENE Facility:[facility] Start: 05-26-2022 End: 05-26-2022 ambulatory Lon Ibrahim Facility:[facility] Start: 05-18-2022 End: 05-21-2022 ambulatory [facility]ON [facility] Start: 05-18-2022 End: 05-20-2022 Subsequent hospital visit by physician Mth Mri Scanner [facility] MRI Comment on above: Cervical myelopathy (HCC) Start: 04-07-2022 End: 04-07-2022 ambulatory Lon Ibrahim Other [facility] Other Start: 04-07-2022 Telephone encounter Lon Ibrahim [facility] Start: 03-31-2022 End: 03-31-2022 ambulatory Lon Ibrahim Other [facility] Other Start: 03-31-2022 Telephone encounter Lon Ibrahim [facility] Start: 03-26-2022 End: 03-26-2022 ambulatory Lon Ibrahim Other [facility] Other Start: 03-26-2022 Office outpatient vi sit 25 minutes Lon Ibrahim [facility] Start: 03-13-2022 End: 04-08-[address] LON IBRAHIM Facility: Start: 03-09-2022 End: 03-09-2022 ambulatory Lon Ibrahim Other [facility] Other Start: 03-09-2022 Telephone encounter Lon Ibrahim [facility] Start: 03-06-2022 ambulatory ILSA [facility] Start: 02-26-2022 End: 02-26-2022 ambulatory Lon Ibrahim Other [facility] Other Start: 02-26-2022 Office outpatient vi sit 25 minutes Lon Ibrahim [facility] Start: 02-24-2022 End: 02-25-2022 ambulatory Nicole KEENE [facility] Start: 02-24-2022 End: 02-25-2022 ambulatory Nicole W RICE Facility:[facility] Start: 02-24-2022 End: 02-24-2022 Lab Drop off Nicole KEENE [facility] Start: 02-24-2022 End: 02-24-2022 Patient encounter procedure Nicole KEENE [facility] Start: 02-16-2022 End: 02-16-2022 ambulatory Lon Kuns Other [facility] Other Start: 02-16-2022 Telephone encounter Lon Kuns [facility] Start: 02-12-2022 End: 02-12-2022 ambulatory Lon Kuns Other [facility] Other Start: 02-12-2022 Telephone encounter Lon Kuns [facility] Start: 12-30-2021 End: 12-31-2021 ambulatory Nicole W RICE Facility: [place] Start: 12-22-2021 End: 12-23-2021 ambulatory Nicole W RICE [facility] Start: 12-22-2021 End: 12-23-2021 ambulatory Nicole W RICE Facility: [facility] Start: 12-10-2021 End: 12-11-2021 ambulatory Nicole W RICE Facility[facility] Start: 10-24-2021 End: 10-24-2021 ambulatory Lon Kuns Other [facility] Other Start: 10-24-2021 Office outpatient vi sit 15 minutes Lon Kuns [facility] Start: 10-16-2021 End: 10-16-2021 Patient encounter procedure DO Lon Kuns Work Phone: [facility] Start: 10-14-2021 End: 10-14-2021 ambulatory Lon Kuns Other [facility] Other Start: 10-14-2021 Telephone encounter Lon Jean-Pierres [facility] Start: 10-10-2021 End: 10-10-2021 ambulatory Lon Jean-Pierres Other [facility] Other Start: 10-10-2021 Telephone encounter Lon Jean-Pierres [facility] Start: 09-17-2021 End: 10-10-2021 Pre-admission assessment Mihir Cheatham Jr. [facility] Start: 09-16-2021 End: 09-17-2021 ambulatory Mihir Cheatham Facility:[facility] Start: 09-16-2021 End: 09-16-2021 Patient encounter procedure Mihir Cheatham Jr. [facility] Start: 07-21-2021 ambulatory Nicole KEENE Facility:[facility] Start: 07-21-2021 End: 07-22-2021 ambulatory Mihir Cheatham Facility:[facility] Start: 07-09-2021 End: 07-10-2021 ambulatory ANGELITA PAEZ Facility[facility] Start: 07-09-2021 End: 07-10-2021 ambulatory ANEGLITA PAEZ Facility:[facility] Start: 07-09-2021 End: 07-09-2021 Lab Drop off ANGELITA JIMENEZRY [facility] Start: 07-09-2021 End: 07-09-2021 Patient encounter procedure ANGELITA PAEZ [facility] Start: 07-01-2021 End: 07-01-2021 ambulatory Lonalondra Mckeons Other [facility] Other Start: 07-01-2021 Telephone encounter Lon Kuns [facility] Start: 05-12-2021 End: 05-12-2021 ambulatory Lon Kuns Other [facility] Other Start: 05-12-2021 Telephone encounter Lon Kuns [facility] Start: 04-10-2021 End: 04-10-2021 ambulatory Lon Kuns Other [facility] Other Start: 04-10-2021 Telephone encounter Lon Kuns [facility] Start: 02-24-2021 End: 02-24-2021 ambulatory Lon Kuns Other [facility] Other Start: 02-24-2021 Telephone encounter Lon Kuns [facility] Start: 01-23-2021 End: 01-23-2021 ambulatory Lon Kuns Other [facility] Other Start: 01-23-2021 Telephone encounter Lon Kuns [facility] Start: 12-03-2020 Telephone encounter Lon Kuns [facility] Start: 03-12-2020 End: 03-13-2020 ambulatory [place] Facility:[facility] Start: 12-28-2018 End: 12-31-2018 Patient encounter procedure JANINA QURESHI [facility] Start: 12-28-2018 End: 12-30-2018 Subsequent hospital visit by physician Juvencio C-Arm 2 [facility] Radiology Comment on above: S/P cervical spinal fusion; 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 Procedures Date Procedure Procedure Detail Performing Clinician Start: 04-15-2023 Us retroperitoneal r eal time w/image complete Janina Hadley APRN.SHOWROOM MANAGER Work Phone: Start: 12-21-2022 Radex spine lumbosac ral minimum 4 views Champ Carr PA-C Work Phone: Start: 11-16-2022 Mri spinal [...] Transurethral resect ion of bladder neoplasm ANGELITA MARYJANE Start: 12-28-2018 Radex spine cervical 2 or [...] OUTPUT ZUBAI R AHAMMAD Start: 09-06-2018 CPAP KAELYN AHA MMAD Start: 09-05-2018 CPAP [...] KAELYN AHAMMAD Start: 09-03-2018 HEIGHT AND WEIGHT ZUBAI R AHAMMAD Start: 09-03-2018 PATIENT STATUS (FROM ED OR OR/PROCEDURAL) KAELYN AHAMMAD Start: 09-03-2018 Ecg routine ecg w/le ast 12 lds w/i&r KAELYN AHAMMAD Start: 09-03-2018 EKG REPORT KAELYN AHA MMAD Start: 09-03-2018 Assay of troponin quantitative KAELYN AHAMMAD Start: 09-03-2018 Basic metabolic pane l calcium total KAELYN AHAMMAD Start: 09-03-2018 Blood count complete auto&auto difrntl wbc KAELYN AHAMMAD Start: 09-03-2018 BRAIN NATRIURETIC PEPTIDE KAELYN AHAMMAD Start: 09-03-2018 Prothrombin time KAELYN AHAMMAD Start: 09-03-2018 Thromboplastin time partial plasma/whole blood KAELYN AHAMMAD Start: 09-03-2018 IP CONSULT TO CRITICAL CARE KAELYN AHAMMAD Start: 09-03-2018 IP CONSULT TO NEUROSURGERY KAELYN AHAMMAD Start: 09-03-2018 [facility] ANGELITA PAEZ Start: 08-31-2018 INCENTIVE SPIROMETRY RT KAELYN AHAMMAD Start: 08-31-2018 INCENTIVE SPIROMETRY RT KAELYN AHAMMAD Start: 08-31-2018 INCENTIVE SPIROMETRY RT KAELYN AHAMMAD Start: 08-31-2018 DISCHARGE PATIENT ZUBAI R AHAMMAD Start: 08-31-2018 INCENTIVE SPIROMETRY RT KAELYN AHAMMAD Start: 08-31-2018 Radex spine cervical 2 or 3 views KAELYN AHAMMAD Start: 08-31-2018 INCENTIVE SPIROMETRY RT KAELYN AHAMMAD Start: 08-31-2018 IP CONSULT TO PSYCHIATRY KAELYN AHAMMAD Start: 08-31-2018 INCENTIVE SPIROMETRY RT KAELYN AHAMMAD Start: 08-31-2018 INITIATE OXYGEN THER APY PROTOCOL KAELYN AHAMMAD Start: 08-31-2018 INCENTIVE SPIROMETRY RT KAELYN AHAMMAD Start: 08-31-2018 Blood count complete automated KAELYN AHAMMAD Start: 08-31-2018 ELEVATE HEELS OFF OF BED KAELYN AHAMMAD Start: 08-31-2018 HEAD OF BED 60 DEGRE ES OR LESS KAELYN AHAMMAD Start: 08-31-2018 NURSING COMMUNICATION Z UBAIR AHAMMAD Start: 08-31-2018 TURN PATIENT KAELYN AHA MMAD Start: 08-31-2018 CATHETER REMOVAL KAELYN AHAMMAD Start: 08-31-2018 INTAKE AND OUTPUT ZUBAI R AHAMMAD Start: 08-31-2018 VITAL SIGNS AKELYN AHA MMAD Start: 08-31-2018 NURSING COMMUNICATION Z [...] AHAMMAD Start: 08-30-2018 Urinalysis microscopic only KAELYN AHAMMAD Start: 08-30-2018 Urnls dip stick/tabl et rgnt auto w/o microscopy KAELYN AHAMMAD Start: 08-30-2018 Culture bacterial quanttative colony count urine KAELYN AHAMMAD Start: 08-30-2018 TYPE AND SCREEN KAELYN AHAMMAD Start: 07-14-2018 Mri spinal canal cer vical w/o contrast matrl KAELYN AHAMMAD Bariatric surgery se rvice (qualifier value) ANGELITA PAEZ Cystoscopy ANGELITA PAEZ Pericardial effusion (disorder) ANGELITA PAEZ Pulmonary embolism (disorder) ANGELITA PAEZ Comment on above: treated at [facility] treated at [facility] Tonsillectomy and adenoidectomy ANGELITA PAEZ Plan of Treatment Date Care Activity Detail Author Start: 10-16-2026 Lipid panel Lipids [facility] Start: 03-30-2026 Diabetes Screening Diabetes Screenin g [facility] Start: 04-19-2023 End: 07-19-2023 Bacteria identified in Urine by Culture [facility] Work Phone: Comment on above: Expected: 04/19/2023 (Approximate), Expires: 07/19/2023 Start: 04-19-2023 End: 05-18-2024 CT Kidney WO and W contrast IV CT UROGRAM WO/W IVCON Radiology Routine Hydronephrosis, unspecified hydronephrosis type Expected: 04/19/2023 (Approximate), Expires: 05/18/2024 [facility] Work Phone: Comment on above: Expected: 04/19/2023 (Approximate), Expires: 05/18/2024 Start: 04-19-2023 End: 07-19-2023 CYTOLOGY NON-HARPOONER [facility] Work Phone: Comment on above: Expected: 04/19/2023 (Approximate), Expires: 07/19/2023 Start: 04-19-2023 End: 07-19-2023 URINALYSIS, REFLEX MICROSCOPIC [facility] Work Phone: Comment on above: Expected: 04/19/2023 (Approximate), Expires: 07/19/2023 Start: 03-09-2023 Lipid screen Lipid screen [facility]- [place], [place] Start: 02-08-2023 Depression Assessment Depression Ass essment [facility] Start: 02-08-2023 DTaP/Tdap/Td vaccine (2 - Td or Tdap) DTaP/Tdap/Td vaccine (2 - Td or Tdap) [facility] Start: 02-08-2023 DTaP/Tdap/Td vaccine (2 - Td) DTaP/Tdap/Td vaccine (2 - Td) [place] Start: 02-08-2023 Urine microalbumin profile DTaP,Tdap,Td Vaccine (2 - Td or Tdap) [facility] Start: 01-12-2023 Urine culture Urine Culture [facility] Start: 10-09-2022 Covid-19 Vaccine () Covid-19 Vaccine ( season) [facility] Start: 10-09-2022 Influenza vaccination [facility] Start: 02-08-2022 DEPRESSION ASSESSMENT DEPRESSION ASS ESSMENT [facility] Start: 09-06-2021 Diabetes Screening Diabetes Screenin g [facility] Start: 03-19-2021 COVID-19 VACCINE (4 - Booster for Moderna series) COVID-19 VACCINE (4 - Booster for Moderna series) [facility] Start: 03-19-2021 COVID-19 VACCINE (4 - Moderna series) COVID-19 VACCINE (4 - Moderna series) [facility] Start: 07-28-2019 Screening for malign ant neoplasm of breast Breast cancer screen [facility] Start: 07-28-2019 Shingles vaccine (1 of 2) Shingles vaccine (1 of 2) [facility] Start: 07-28-2019 SHINGRIX VACCINE (1 of 2) SHINGRIX VACCINE (1 of 2) [facility] Start: 02-23-2019 End: 02-23-2019 Office Visit Chantel Melendez Invasive Bariatric Surg Start: 10-09-2018 Influenza vaccination Flu vaccine (# 1) [place] Start: 08-21-2018 Annual Wellness Visi t (AWV) Annual Wellness Visit (AWV) [facility] Start: 2014 COLOGUARD (FIT-DNA) COLOGUARD (FIT-D NA) [facility] Start: 2014 Colonoscopy COLONOSCOPY [facility] Start: 2014 COLORECTAL CANCER SCREENING COLORECTAL CANCER SCREENING [facility] Start: [address] COLONOGRAPHY [facility] Start: 2014 DIABETES SCREEN DIABETES SCREEN [facility] Start: 2014 Diabetes Screening Diabetes Screenin g [facility] Start: 2014 FECAL OCCULT BLOOD FECAL OCCULT BLOO D [facility] Start: 2014 Lipid 1996 panel - Serum or Plasma Lipid Screening [facility] Start: 2014 Lipid panel Lipid Screening [facility] Start: 2014 LIPID SCREEN LIPID SCREEN [facility] Start: 2014 Screening for malign ant neoplasm of colon [facility] Start: 2014 SIGMOIDOSCOPY SIGMOIDOSCOPY [facility] Start: 2009 Mammography [facility] Start: 2009 Screening for malign ant neoplasm of breast Mammogram Screening [facility] Start: 07-28-1999 HPV TESTING HPV TESTING [facility] Start: 07-28-1999 Screening for malign ant neoplasm of cervix [facility] Start: 1990 Cervical cancer screen Cervical canc er screen [facility] [place] Start: 1990 PAP TESTING PAP TESTING [facility] Start: 1990 Screening for malign ant neoplasm of cervix [facility] Start: 1988 Hepatitis B Vaccine (1 of 3 - 19+ 3-dose series) Hepatitis B Vaccine (1 of 3 - + 3-dose series) [facility] Start: 1988 Urine microalbumin profile DTAP,TDAP,TD (1 - Tdap) [facility] Start: 07-28-1987 Hepatitis C screening B ON [facility] Start: 07-28-1987 HEPATITIS C SCREENING HEPATITIS C SC REENING [facility] Start: 07-28-1987 HIV SCREENING HIV SCREENING [facility] Start: 07-28-1987 HIV screening HIV Screening [facility] Start: 1984 HIV screen HIV screen [facility] [place] [place] Start: 1984 HIV screening HIV screen [facility] Start: 1981 Depression Monitoring Depression Mon itoring [facility] Start: 1969 HEPATITIS B (1 of 3 - 3-dose series) HEPATITIS B (1 of 3 - 3-dose series) [facility] Start: 1969 Hepatitis B Vaccine (1 of 3 - 3-dose series) Hepatitis B Vaccine (1 of 3 - 3-dose series) [facility] End: 07-13-2022 CT CERVICAL SPINE WO CONTRAST BON [facility] Work Phone: Comment on above: 1 Occurrences starti ng 07/13/2022 until 07/13/2022 End: 12-27-2023 Ct lumbar spine w/o contrast material CT LUMBAR SPINE WO IVCON Radiology Routine Spinal stenosis of lumbar region with neurogenic claudication 1 Occurrences starting 11/27/2022 until 12/27/2023 [facility] Work Phone: Comment on above: 1 Occurrences starti ng 11/27/2022 until 12/27/2023 End: 07-23-2023 EMG(NEURO/NI) EMG(NEURO/NI) EMG Routine Cervical disc disorder with radiculopathy Right arm weakness 1 Occurrences starting 07/22/2022 until 07/23/2023 [facility] Work Phone: Comment on above: 1 Occurrences starti ng 07/22/2022 until 07/23/2023 Glucose measurement estimated from glycated hemoglobin [facility] End: 10-21-2023 Mri spinal canal lumbar w/o contrast material MRI LUMBAR SPINE WO IVCON Radiology Routine Spinal stenosis of lumbar region, unspecified whether neurogenic claudication present 1 Occurrences starting 09/21/2022 until 10/21/2023 [facility] Work Phone: Comment on above: 1 Occurrences starti ng 09/21/2022 until 10/21/2023 End: 10-21-2023 Mri spinal canal thoracic w/o contrast matrl MRI THORACIC SPINE WO IVCON Radiology Routine Spinal stenosis of lumbar region, unspecified whether neurogenic claudication present 1 Occurrences starting 09/21/2022 until 10/21/2023 [facility] Work Phone: Comment on above: 1 Occurrences starti ng 09/21/2022 until 10/21/2023 End: 12-27-2023 Radex spine lumbosacral minimum 4 views XR LUMBAR MOTION 4V AP/LAT/ FLEX/EXT Radiology Routine Spinal stenosis, lumbar region with neurogenic claudication 1 Occurrences starting 11/27/2022 until 12/27/2023 [facility] Work Phone: Comment on above: 1 Occurrences starti ng 11/27/2022 until 12/27/2023 [facility] Immunizations Immunization Date Immunization Notes Care Provider Hayley mayfield 11-30-2022 Flu Shot - Documentation Purposes Only Lon Kuns Other [facility] Other 11-30-2022 COVID-19 Vaccine Pfizer - Documentation Purposes Only Lon Kuns Other [facility] Other 11-21-2021 influenza virus vaccine, unspecified formulation Nicole [employer] 11-21-2021 SARS-CoV-2 (COVID-19 ) [id number] Nicole [employer] [facility] 01-22-2021 SARS-CoV-2 (COVID-19 ) mRNA-1273 vaccine Nicole KEENE [facility] 05-25-2020 COVID-19 Vaccine Moderna - Documentation Purposes Only Lon Kuns Other [facility] 04-27-2020 COVID-19 Vaccine Moderna - Documentation Purposes Only Lon Kuns Other [facility] 02-09-2020 SARS-CoV-2 (COVID-19 ) mRNA-1273 vaccine ANGELITA PAEZ [facility] Comment on above: Result Comment: pt i s fully vaccinated but does not know the dates Result Comment: pt i s fully vaccinated but does not know the dates 12-10-2019 influenza virus vaccine, unspecified formulation ANGELITA PAEZ [facility] 11-21-2019 influenza, injectabl e, quadrivalent, contains preservative Lon Kuns Other [facility] Other 11-21-2019 influenza virus vaccine, unspecified formulation Nicole Ponominalu[employer]ru [facility] 11-13-2018 influenza virus vaccine, unspecified formulation Nicole Ponominalu[employer]ru [facility] 05-12-2017 Toradol per 15 mg Lon Kuns Other [facility] Other 05-05-2017 Toradol per 15 mg Lon Kuns Other [facility] Other 11-12-2016 influenza virus vaccine, unspecified formulation EVERFANS [facility] 11-12-2016 influenza, injectabl e, quadrivalent, contains preservative Lon Kuns Other [facility] Other 11-12-2016 Toradol per 15 mg Lon Kuns Other [facility] Other 12-18-2015 influenza virus vaccine, unspecified formulation Nicole [employer]ru [facility] 11-01-2014 Toradol per 15 mg Lon Kuns Other [facility] Other 12-21-2013 influenza virus vaccine, unspecified formulation Nicole Ponom[employer]ru [facility] 02-08-2013 tetanus toxoid, reduced diphtheria toxoid, and acellular pertussis vaccine, adsorbed Stv 2 [facility] Comment on above: Result Comment: 2021: EXTERNAL ADMIN: PT RPT 11-30-2012 influenza virus vaccine, unspecified formulation Nicole [employer] [facility] 12-23-2011 influenza virus vaccine, unspecified formulation Nicole [employer] [facility] 11-25-2010 influenza virus vaccine, unspecified formulation Nicole [employer] [facility] 12-14-2007 pneumococcal polysaccharide vaccine, 23 valent Nicole [employer] [facility] 12-13-2007 influenza, whole Nicole [employer] [facility] NEGATED: Highlighted row has not occurred!07-09-2021 SARS-CoV-2 mRNA (tozinameran 5y-11y) vaccine ANGELITA PAEZ [facility] NEGATED: Highlighted row has not occurred!10-27-2016 Toradol per 15 mg Lon Kuns Other [facility] Other Payers Date Payer Category Payer Self-pay [id number] 2022 Unknown [id number] 2022 Medicare [id number] .[id number] 2018 Medicaid MEDICAID [facility] DEPT OF JOB xxxxxxxxxxxx 2018-Present [phone] [address] [place] [address] xxxxxxxxxxxx [id number] .[id number] 2018 Medicaid [id number] 2018 Medicare MEDICARE MEDICAR E PART A AND B xxxxxxxxxxx 2018-Present [phone] [place] [address] xxxxxxxxxxx [id number] .[id number] 2018 Medicare [id number] 2014 Unknown [id number] 1970 Unknown [id number] 2.16.840.1.636568.3.579.2.176 1969 Unknown [id number] 2.16.840.1.514639.3.579.2.175 1969 Unknown [id number] 2.16.840.1.992569.3.579.2.175 1969 Unknown [id number] 2.16.840.1.706809.3.579.2.175 1969 Unknown [id number] 2.16.840.1.428183.3.579.2.175 1969 Unknown [id number] 2.16.840.1.777697.3.579.2.647 1969 Unknown [id number] 2.16.840.1.289647.3.579.2.593 1969 Unknown [id number] 2.16.840.1.139977.3.579.2.727 1969 Unknown [id number] 2.16.840.1.091533.3.579.2.727 1969 Unknown [id number] 2.16.840.1.583558.3.579.2.727 1969 Unknown [id number] 2.16.840.1.440767.3.579.2.727 1969 Unknown [id number] 2.16.840.1.838761.3.579.2.727 1969 Unknown [id number] 2.16.840.1.699005.3.579.2.727 1969 Unknown [id number] 2.16.840.1.520612.3.579.2.727 1969 Unknown [id number] 2.16.840.1.642186.3.579.2. 1969 Unknown [id number] 2.16.840.1.875874.3.579.2.72 1969 Unknown [id number] 2.16.840.1.669788.3.579.2. 1969 Unknown [id number] 2.16.840.1.752778.3.579.2. 1969 Unknown [id number] 2.16.840.1.647633.3.579.2. 1969 Unknown [id number] 2.16.840.1.340172.3.579.2. 1969 Unknown [id number] 2.16.840.1.944505.3.579.2. 1969 Unknown [id number] 2.16.840.1.682621.3.579.2.173 1969 Unknown [id number] 2.16.840.1.346482.3.579.2.173 1959 Medicare [id number] 2.16.840.1.737306.19 Self-pay [id number] Unknown HCAP/HFA/FAP Active [id number] Unknown [id number] 2.16.840.1.941029.3.579.2.531 Unknown [id number] 2.16.840.1.949265.3.579.2.531 Unknown [id number] 2.16.840.1.925286.3.579.2.531 Social History Date Type Detail Facility Start: 12-28-2018 End: 06-29-2022 Tobacco smoking status NHIS Never smoker [facility] Start: 12-28-2018 End: 04-03-2020 Alcohol intake Current non-drinker of alcohol (finding) [facility] Start: 1970 Sex Assigned At Not on file [place] Start: 09-21-2022 End: 11-24-[address] [facility] [employer] Other Start: 1970 Sex Assigned At Female [facility] Tobacco smoking status Never [facility] Start: 07-02-2016 End: 06-29-2022 Tobacco use and exposure Smokeless tobacco non-user [facility] zhouwu Work Phone: Tobacco [facility] smoking consumption unknown [facility] Start: 06-29-2022 End: 05-04-2023 Alcohol intake Lifetime non-drinker (finding) [facility] Start: 09-21-2022 End: 11-24-2022 History of Social function [facility] Start: 09-20-2022 Gender identity Identifies as female gender (finding) [facility] Medical Equipment Procedure Code Equipment Code Equipment Origin al Text Equipment Identifier Dates Bailey-Putty Proge nix Plus 1cc [id number] Start: 08-30-2018 Reload Stapler 4 5 Bl Davinci Xi _imp Start: 06-21-2017 Reload Stapler 4 5 Bl Davinci Xi [id number] Start: 06-21-2017 Reload Stapler 4 5 Bl Davinci Xi [id number] Start: 06-21-2017 Reload Stapler 4 5 Bl Davinci Xi [id number] Start: 06-21-2017 Reload [place] B lk 60mm [id number] Start: 06-21-2017 Reload [place] B lk 60mm [id number] Start: 06-21-2017 Impl Spine Cage Spacr Bengal Lg 7deg 6mm [id number] Start: 08-30-2018 Plate Cerv Ant T i 12mm [id number] Start: 08-30-2018 Screw Cerv [facility] Selftap Ti 16mm [id number] Start: 08-30-2018 Functional Status Date Assessment Result Facility 02-24-2022 Functional Status N/A [facility] 09-16-2021 Functional Status N/A [facility] Clinical Notes 08-08-2016 to 05-04-2023 Telephone Encounter - Tiffanie Bucio - 05/04/2023 4:01 PM EDTTelephone Encounter - Apurva Campa MD - 05/04/2023 12:46 PM EDTTelephone Encounter - Apurva Campa MD - 05/04/2023 2:31 PM EDT Note Date & Type Note Facility 05-04-2023 Miscellaneous Notes Formattin g of this note might be different from the original. Called and spoke with patient. Patient is scheduled ov in 1 month with Vi Fernandes CNP on 06/04/23 Patient has cystoscopy under local at [facility]. Schedule follow-up office visit with nurse practitioner in 1 month. Plan to remove catheter at the office visit at the office visit. APURVA CAMPA M.D. documented in this encounter [facility] 05-04-2023 Miscellaneous Notes Formattin g of this note might be different from the original. Please get me the report of CT scan of the patient that was done at [facility] APURVA CAMPA M.D. documented in this encounter [facility] 04-26-2023 Note HNO ID: [id number] Author: APURVA CAMPA MD Service: ? Author [...] wbc and RBC Culture =-ve cytology= blood [facility] 04-26-2023 History of Presen t illness Narrative [...] =-ve cytology= blood documented in this encounter [facility] 04-20-2023 Miscellaneous Notes Formattin g of this note might be different from the original. Patient called back and confirmed date Left VM confirming date. Please schedule patient for local flexible cystoscopy at [facility] on Wednesday05-04-23 Apurva Campa MD documented in this encounter [facility] 04-19-2023 Note HNO ID: [id number] Author: ?, ?, ? Service: ? Author Type: ? Type: Progress Notes Filed: 04/19/2023 14:41 Note Text: Carrie Fletcher [id number] [facility] [address] is a 52 year old female and is here today for hydronephrosis, bladder mass at the request of Janina Hadley [address] [facility] [address] My final recommendation will be communicated back [...] On Eliquis PLAN: (Management Options): UA/culture/cytology at [facility] lab CTU, GFR 03/31/23: 67 Cystoscopy under [...] presence of Dr. Campa. Negrita Da Silva Scribe Provider Attestation: pAurva Haji M.D., personally performed the services described in this documentation. All medical record entries m (more content not included)... [facility] 04-19-2023 History of Presen t illness Narrative Carrie Fletcher [id number] [facility] [address] is a 52 year old female and is here today for hydronephrosis, bladder mass at the request of Janina Hadley [address] [facility] [address] My final recommendation will be communicated back [...] On Eliquis PLAN: (Management Options): UA/culture/cytology at [facility] lab CTU, GFR 03/31/23: 67 Cystoscopy under [...] of Dr. Campa. Marcelino Phelps Provider Attestation: Apurva Haji M.D., personally performed the services described in this documentation. All medical record entries made by the scribe were at my direction and in my presence. I have reviewed the chart and discharge instructions (if applicable) and agree that the record reflects my personal performance and is accurate and complete. Apurva Campa M.D. documented in this encounter [facility] 04-19-2023 Instructions Apurva Campa MD - 04/19/2023 2:38 PM EDT UA/culture/cytology at [facility] lab Schedule CTU Surgical schedulers will call for cystoscopy under local 05/04/23 office visit post op 05-12-23 in post op slot 9:20 AM documented in this encounter [facility] 04-15-2023 Note HNO ID: [id number] Author: JANINA HADLEY APRN.SHOWROOM MANAGER Service: ? Author Type: Nurse Practitioner Type: [...] - CONSULT TO UROLOGY; Future Janina Hadley APRN.SHOWROOM MANAGER Actionable Findings Diagnostic Mobile Impression IMPRESSION: 1. Irregular echogenic material within [...] on 04/15/2023 4:27 PM via verbal communication. [facility] 04-15-2023 History of Presen t illness Narrative Called pt to discussed results after receiving phone call from josse Engle to cover this matter if needed tomorrow Message sent to Brittany Cheatham RN Consult placed Phone number sent to pt to call if she doesn't hear anything by Ulises evening next week All questions answered Other hydronephrosis - CONSULT TO UROLOGY; Future Bladder mass - CONSULT TO UROLOGY; Future Janina Hadley APRN.CNP Actionable Findings Diagnostic Mobile Impression IMPRESSION: 1. Irregular echogenic material within [...] via verbal communication. documented in this encounter [facility] 04-15-2023 Note HNO ID: [id number] Author: DANIELLE PARIS RT(Iram) Service: ? Author Type: Food And Beverage Manager Type: Progress Notes Filed: 04/15/2023 13:39 Note [...] PATIENT PRESENTS WITH AN IMPLANTABLE OR ATTACHED CLINICAL TRIALS SPECIALIST: No RADIOLOGY DEPARTMENT: Ultrasound PERIPHERAL IV DATA: Not applicable SIGNED BY: RT Byron(Iram) April 15, 2023 1:39 PM [facility] 02-16-2023 Evaluation note Encounter Date Diagnosis Assessment [...] Flynn LPN ], under direct supervision of Dr. [ Lon Ibrahim ]. Document reviewed and [...] she will drop a sample off at [facility]. If positive will call her and initiate [...] up with local neurolgist in addition to [facility]. Feb, Spinal stenosis of thoracolumbar region (ICD-10 - M48.05) Feb, Post-menopausal (ICD-10 - Z78.0) [facility] Other 12-05-2023 Evaluation note* Encounter Date Diagnosis [...] infection (UTI) home care material was printed [facility] Other 11-13-2023 NoteHNO ID: [id number] Author: Moises Willis MD Service: ? Author [...] legs, progressing since 2021. Last saw Champ Carr on 11/27 during a virtual visit, with [...] of the general populati (more content not included)...[facility] 12-21-2022 NoteHNO ID: [id number] Author: Bree Sharma RT(R) Service: Radiology Author [...] PERIPHERAL IV DATA: Not applicable SIGNED BY: SANAZ LINR) December 21, 2022 11:48 [facility]11-13-2023 History of Present illness Narrative* Moises Willis [...] legs, progressing since 2021. Last saw Champ Carr on 11/27 during a virtual visit, with [...] TIME: 12:18 PM PAGER: [facility] History of Present illness Narrative* Bree [...] 21, 2022 11:48 AM documented [facility] Evaluation note* Encounter Date Diagnosis Assessment Notes Treatment Notes Treatment Clinical Notes Nov, History of pulmonary embolism (ICD-10 - Z86.711) [facility] Other 10-20-2023 NoteHNO ID: [id number] Author: Champ Carr PA-C Service: ? Author Type: Physician Pipe Roller Type: Progress Notes Filed: 11/27/2022 7:19 AM Note Text: SPINE SURGERY ESTABLISHED This is a virtual visit using Care Team Connectom Video Visit. It required patient-provider interaction for the medical decision making as documented below. I have communicated my name and active licensure. The patient's identity and physical location were verified at the time of this visit. Either the patient or their legal customer solutions representative has been informed of the risks [...] complex hx and imag (more content not included)...[facility]10-20-2023 History of Present illness Narrative* Champ Carr PA-C - 11/27/2022 6:56 AM EDT SPINE SURGERY ESTABLISHED This is a virtual visit using [email or web address] Zoom Video Visit. It required patient- provider interaction for the medical decision making as documented below. I have communicated my name and active licensure. The patient's identity and physical location wereverified at the time of this visit. Either the patient or their legal customer solutions representative has been informed of the risks [...] face time was 30 minutes. SIGNATURE: Champ Carr PA-C PATIENT NAME: Carrie Fletcher DATE: November 27, 2022 TIME: 6:59 AM PAGER: documented in [facility] encounterCl[facility]10-09-2023 NoteHNO ID: [id number] Author: Alexis Ramos RT(Iram) Service: Radiology Author [...] BY: RT Yg(R) November 16, 2022 4:04 [facility]10-09-2023 History of Present illness Narrative* Alexis [...] IV DATA: Not applicable SIGNED BY: RT Yg(Iram) November 16, 2022 4:04 PM documented in this encounterCl[facility]10-06-2023 NoteOccupational Therapy Psych Coordinator Rehab 11/13. Spoke with Carrie regarding follow up with surgeon. She is pending further MRI's at this time. Will follow up to determine plan of action for driver wheelchair rehab goals/services. Ilsa Peralta OTR/L CDRSUniFort Hamilton Hospital09-01-2023 Evaluation note* Encounter Date Diagnosis Assessment Notes Treatment Notes Treatment Clinical Notes Oct, Left foot pain (ICD-10 - M79.672) [facility] Other 08-17-2023 Evaluation note* Encounter Date Diagnosis Assessment Notes Treatment Notes Treatment Clinical Notes Sep, Spinal stenosis of lumbar region with neurogenic claudication (ICD-10 - M48.062) [facility] Other 08-14-2023 NoteHNO ID: [id number] Author: Moises Willis MD Service: ? Author [...] PCP: Lon Ibrahim REFERRING PROVIDER: Bryce Lara APRN.SHOWROOM MANAGER SUBJECTIVE HISTORY OF PRESENT ILLNESS: Carrie Fletcher [...] past 6 months Sy (more content not included)...[facility]08-14-2023 History of Present illness Narrative* Moises Willis [...] PCP: Lon Ibrahim REFERRING PROVIDER: Bryce Lara APRN.SHOWROOM MANAGER SUBJECTIVE HISTORY OF PRESENT ILLNESS: Carrie Fletcher [...] SIGNATURE: Moises Willis MD PATIENT NAME: Carrie Feltcher DATE: September 21, 2022 TIME: 9:31 AM PAGER: documented in this encounterCl[facility]08-03-2023 Evaluation note* Encounter Date Diagnosis Assessment Notes Treatment Notes Treatment Clinical Notes Sep, Supraventricular tachycardia (ICD-10 - I47.1) [facility] Other 2023 Evaluation note* Encounter Date Diagnosis Assessment Notes Treatment Notes Treatment Clinical Notes Aug, Left foot pain (ICD-10 - M79.672) Aug, Fall, initial encounter (ICD-10 - W19.XXXA) [facility] Other 07-20-2023 NoteOccupational Therapy Psych Coordinator Rehab Spoke with Mrs. Fletcher today. States she has a LE fx and follows up with a surgeon in October. Pt is on hold at this time regarding driver wheelchair rehab. Advised to follow up after appointment with surgeon to determine advancement with driver wheelchair rehab. Ilsa Peralta OTR/L CDRSUniversity [facility]07-17-2023 Note Occupational Therapy Psych Coordinator Rehab Attempted to call pt 08/24 to follow up on process regarding return to driver wheelchair rehab. Mailbox stated full, will re attempt at a later time. Ilsa Peralta OTR/L CDRSUniversity [facility]06-21-2023 Miscellaneous Notes* Telephone Encounter - [...] answered. Bryce Lara APRN.CNP documented in this encounterCl[facility]06-20-2023 Evaluation note* Encounter Date Diagnosis Assessment Notes Treatment Notes Treatment Clinical Notes Jul, Fall, subsequent encounter (ICD-10 - W19.XXXD) [facility] Other [id number] Miscellaneous Notes* Telephone Encounter - Meaghan Ehsan [facility] - 07/28/2022 9:49 AM EDT Pt called; states she had EMG completed on 06/06/22 at an external facility; she will notify them tofax it to [phone]. documented in this encounterClinton [facility] Hospital06-14-2023 Miscellaneous Notes* Telephone Encounter - Bryce [...] possible revision versus alternative treatments. Bryce Lara APRN.CNP * Telephone Encounter - Donna Pal - 07/16/2022 1:32 PM EDT Received outside imaging/report: CD Yes Report No Images Uploaded: Yes Report Scanned: No Imaging received CT Cervical Spine Date of study 07/13/22 Verified imaging and reports were received. Forwarded to team for review. Donna Pal documented in this encounterCl[facility] Hospital06-09-2023 Miscellaneous Notes* Telephone Encounter - Donnazain Limonmel - 07/17/2022 12:53 PM EDT Received the following record(s) via Fax. -MRI Cervical Spine WO Contrast Date 05/18/22 Sending images over through PACS. Record(s) scanned into pt's chart. Donnazain Pal documented in this encounterCl[facility] Hospital05-22-2023 NoteHNO ID: [id number] Author: Bryce Lara APRN.SHOWROOM MANAGER Service: ? Author Type: Nurse Practitioner Type: Progress Notes Filed: 07/01/2022 11:56 AM Note Text: SPINE SURGERY OUTPATIENT CONSULT This is an in-person visit. SERVICE DATE: 06/29/2022 PCP: Lon Ibrahim DO REFERRING PROVIDER: Lon Antonio DO [address] [place] [phone] Consult requested for an opinion regarding the [...] left foot drop was [place] [facility] [place] and now wears AFO brace constantly since. [...] severe bilateral foraminal stenos (more content not included)...[facility]05-15-2023 NoteHNO ID: [id number] Author: Danielle Alarcon PA-C Service: ? Author Type: Physician Pipe Roller Type: Progress Notes Filed: 06/22/2022 8:37 AM Note Text: Per Triage: Carrie Fletcher is a 51 year old female that requests evaluation of spine. Per review, they have symptoms of difficulty walking, left leg numbness, right foot numbness. Right shoulder weakness. Request: 1st available Referring provider: Dr. Lon Antonio Patient out of state: no 2nd opinion: no Prior spine surgery: yes [facility] [place] [address] CMT: PT Gabapentin Tylenol Studies (Reports unless [...] xrays and CT cervical spine as well. HOLLY ArchibaldCClA[facility]05-15-[facility] History of Present illness Narrative* Danielle [...] 2nd opinion: no Prior spine surgery: yes [address] [address] CMT: PT Gabapentin Tylenol Studies (Reports unless [...] Health Provider or Pain Management Provider at [facility]? No If answer is YES please schedule [...] the facility where the MRI/CT/myelogram was completed: [address] , [place] [address] MRI/CT/myelogram viewable in Epic: No If not, please provide [phone] to fax in imaging reports for review. [...] and/or physical therapy was completed PT: [facility] [address] [place] [address] Have you tried any other kinds of [...] facility/address of where the surgery was completed: [facility] [place] [address] Additional Comments [phone] documented in this encounterClinton [facility] Hospital05-10-2023 NoteHNO ID: [id number] Author: Anastasia Berumen Service: ? Author Type: ? Type: Progress Notes Filed: 06/22/2022 8:37 AM Note Text: Patient name: Carrie Fletcher Are you being referred by a Center for [facility] Provider or Pain Management Provider at [facility]? No If answer is YES please schedule [...] the facility where the MRI/CT/myelogram was completed: [address] [place], [facility] MRI/CT/myelogram viewable in Epic: No If not, please provide [phone] to fax in imaging reports for review. [...] and/or physical therapy was completed PT: [facility] [address] [place] [address] Have you tried any other kinds of [...] facility/address of where the surgery was completed: [facility] [address] [place] [address] Additional Comments [phone] [facility] Center03-01-2023 Note Occupational Therapy Psych Coordinator Rehab 04/08/22 Follow up vladimir regarding advancement with community services such as Waiver and OOD. Pending follow up with Waiver and OOD before starting driver wheelchair rehab. Stated Medicare will cover new wheelchair for her. Will plan to follow up 2-4 weeks to determine OOD application status and Waiver prior to return to driver wheelchair rehab. Ilsa Peralta OTR/L CDRSUniversity of [facility]02-16-2023 Evaluation note* Encounter Date Diagnosis Assessment Notes [...] scheduled. Mar, Arm weakness (ICD-10 - R29.898) [facility] Other 01-27-2023 NoteOccupational Therapy Occupational Therapy Evaluation Psych Coordinator Rehab 8:00-: Patient Name: Carrie Fletcher : 1970 Date: [...] PRO CONVERSION Functional Community Mobility Assessment Time: 8:00-: Diagnosis and Onset: Ms. Fletcher is a 51-year-old female who was referred to the driver wheelchair rehab clinic for a functional community mobility evaluation. Per history, she underwent gastric bypass in 2018 and woke up from surgery with no lower extremity function and right shoulder weakness. 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 2018 she underwent C3-C4 fusion. She is now [...] stool softener, Eliquis, metoprolol [place]: [id number]. State: [place]. Expiration Date: 07/28/2023. License Restrictions: B. [employer]. Vehicle Make and Model: Currently does not have a vehicle. Attempted driving since disability: No Last time driven: 2018. Current means of community mobility: Dependent upon family. Brother provides most driving. 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 Primary Psych Coordinator/Passenger: Prior to 2018 was primary driver wheelchair. Currently dependent hand primary passenger. Necessity for [...] glasses. She reports she has seen an freight booker within the past year. She denies any visual changes. Range of Motion: Right eye: Full. Left eye: Full. Both eyes: Full. Convergence: Normal. Saccades: Horizontal and vertical. Right Field: Direct fixation. Left Field: Direct fixation. Pursuits: Sustains fixation. [employer] Psych Coordinator Rehab Vision Test Peripheral Brown Left Eye: [...] commands without difficulty Communication: Intact Hearing: Intact [place] Cognitive Assessment: Evaluates orientation and general cognitive functioning. Norm equals 26 or more. Score: 26. WFL [place] Making Part B: Evaluates divided attention and mental flexibility. Completion time: 105 seconds. Comments: No error (more content not included)... [facility]01-23-2023 NotePhysical Therapy Communications Note Patient Name: Carrie Fletcher Today's Date: 03/02/22 Total Visit Count: 1 Time In: 1:15 PM Time Out: 1:35 PM Subjective: Carrie Fletcher is a 51 y.o. female who believes she is here today for a driver wheelchair's evaluation. She has not driven in some [...] she underwent a C3-C4 fusion at the [facility]. She experienced partial return of the [...] . Carrie lives 1.5 hours away from [facility] and would prefer to undergo PT closer to home, as transportation is an issue. However, she is interested in scheduling a Psych Coordinator's Evaluation at [facility]. Plan: Carrie was instructed to contact her PCP to send her PT referral to the PT clinic closer to home that she has in mind. She was scheduled for an OT Psych Coordinator's Evaluation today, which she will attend on 03/17/22. No formal PT evaluation was completed today, as it is in the patient's best interest to attend PT closer to home.[facility]01-23-2023 [id number] Carrie Fletcher 1970 F Date Provider Department Center 03/02/2022 ADRIANA MAJOR MP PT Medical Pavi [facility] Evaluation [facility]* Encounter Date Diagnosis Assessment Notes [...] neuropathy symptoms. Prevous surgery and followed by [facility]. I encouraged her to have [...] above regimen and urologists plan of care. [facility] Other 01-17-2023 Hospital Discharge instructions Patient Education [...] Treatment for this condition includes: Antibiotic medicine. Uzjd-bby-ussfysx medicines to treat discomfort. Drinking enough water [...] Follow these instructions at home: Medicines Take sayn-qtt-riicfoq and prescription medicines only as told by [...] 11/04/2005 Document Revised: 01/12/2019 Document Reviewed: 08/04/2018 [employer] Patient Education 2020 [email or web address] Follow Up Care 12/30/2021 09:59:20 With:YECENIA FOLEY, Nicole Garcia, URL Address: [address] [place] [address]- When: Unknown [facility] 11-02-2022 Note [id number]:127[facility] 10-24-2021 Evaluation note* Encounter Date Diagnosis [...] above medication. Oct, Hyperlipidemia (ICD-10 - E78.5) [facility] Other 09-06-2022 Evaluation note* Encounter Date Diagnosis Assessment Notes Treatment Notes Treatment Clinical Notes Oct, S/P bariatric surgery (ICD-10 - Z98.84) Oct, Dietary counseling and surveillance (ICD-10 - Z71.3) [facility] Other 09-02-2022 Evaluation note* Encounter Date Diagnosis Assessment Notes Treatment Notes Treatment Clinical Notes Oct, Vitamin D deficiency (ICD-10 - E55.9) Oct, Hyperlipidemia (ICD-10 - E78.5) Oct, Hyperglycemia (ICD-1 0 - R73.9) [facility] Other 08-09-2022 Hospital Discharge instructions Patient Education 09/16/2021 08:40:56 Urinary Tract Infection, Adult, Tpvq-gg-Vxdz Urinary Tract Infection, Adult A urinary tract [...] Follow these instructions at home: Medicines Take uqfc-vtd-uqblbsu and prescription medicines only as told by [...] 07/13/2008 Document Revised: 01/12/2019 Document Reviewed: 08/04/2018 [employer] Patient Education 2020 [email or web address] Follow Up Care 07/21/2021 15:16:53 With:Linden Villarreal MD, Mihir Broderick, URO Address: [facility] [address] [place] [phone] When: Unknown Comments:schedule [employer] [facility] 06-01-2022 Hospital Discharge instructions Patient Education 07/09/2021 [...] fried and sweet foods. General instructions Take wioy-iuy-piynwct and prescription medicines only as told by [...] 11/21/2009 Document Revised: 05/18/2019 Document Reviewed: 02/10/2018 [employer] Patient Education 2020 [email or web address] Follow Up Care 03/20/2021 09:54:04 With:ANGELITA PAEZ PA-C, URL Address: [address] [place], [place] [address]dg[place] [address] When: Unknown [facility] 06-01-2022 Evaluation + Plan note Diagnostic Tests Pending * Urine Culture 07/09/21 [facility]05-24-2022 Evaluation note* Encounter Date Diagnosis Assessment Notes Treatment Notes Treatment Clinical Notes June, Supraventricular tachycardia (ICD-10 - I47.1) [facility] Other 04-04-2022 Evaluation note* Encounter Date Diagnosis Assessment Notes Treatment Notes Treatment Clinical Notes May, History of pulmonary embolus (PE) (ICD-10 - Z86.711) [facility] Other 03-03-2022 Evaluation note* Encounter Date Diagnosis Assessment Notes Treatment Notes Treatment Clinical Notes Apr, Neuropathic pain (ICD-10 - M79.2) [facility] [employer] Other 01-17-2022 Evaluation note* Encounter Date Diagnosis Assessment Notes Treatment Notes Treatment Clinical Notes Feb, Neuropathic pain (ICD-10 - M79.2) [facility] Other 02-04-2021 NoteMR#: [id number] [facility] Pt. Name: Carrie Fletcher Admitted: 03/12/2020 Discharged: [...] status post gastric bypass surgery, transferred from [facility] on 12/06/2019 for management of septic shock due to acute cholecystitis and UTI. The patient subsequently underwent percutaneous cholecystectomy tube placement. The patient was seen in clinic by Dr. Brown and scheduled for elective cholecystectomy. The patient [...] Piedra MD Date Trans: 03/14/2020 09:42 A/adi [id number] cc: Lon Ibrahim M.D. [address] [address] History general Narrative - Reported* Type Description [...] w/ Dr. Smallwood Surgical History Cholecystecomy 03/2019 [facility] Other [id number] History general Narrative - Reported* Type Description [...] History Cholecystecomy 03/2019 Hospitalization History See Above [place] [employer] Other Evaluation + Plan note No data available for this section [facility] evaluation + Plan note Future Appointments Appointment Date:05/26/2022 09:15:00 AM Scheduled Provider:Nicole KEENE MD Location:[facility] Appointment Type:URO Office Visit [facility] Evaluation + Plan note Future Appointments Appointment Date:05/26/2022 09:15:00 AM Scheduled Provider:Nicole KEENE MD Location:[facility] Appointment Type:URO Office Visit Diagnostic Tests Pending * Urine Culture 02/24/22 [facility] noteNo InformationNort [employer] Other Evalukwgeh noteNo assessment information available [facility] Work Phone: Evaluooqep note* Diagnosis Cervical myelopathy (HCC) Cervical spondylosis with myelopathy documented in this encounter [employer] Work Phone: evaltvozbf note* Diagnosis S/P cervical spinal fusion- Primary Arthrodesis status 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) [facility] Diagnosis Spinal stenosis, cervical region documented in this encounter [employer] Work Phone: evaltufiqt note* Diagnosis Cervical disc disorder with radiculopathy- Primary Brachial neuritis or radiculitis nos Right arm weakness Other musculoskeletal symptoms referable to limbs [facility] Diagnosis Spinal stenosis in cervical region- Primary Arm weakness Other musculoskeletal symptoms referable to limbs [facility] Diagnosis Spinal stenosis of lumbar region, unspecified whether neurogenic claudication present- Primary Spinal stenosis in cervical region Arm weakness Other musculoskeletal symptoms referable to limbs [facility] Diagnosis Spinal stenosis of lumbar region, unspecified whether neurogenic claudication present [facility]* Diagnosis Spinal stenosis, lumbar region with neurogenic claudication- Primary Spinal stenosis of lumbar region with neurogenic claudication Spinal stenosis, lumbar region, with neurogenic claudication documented [facility]* Diagnosis Spinal stenosis of lumbar region, unspecified whether neurogenic claudication present documented [facility]* Diagnosis Spinal stenosis, lumbar region with neurogenic claudication- Primary [facility]* Diagnosis Spinal stenosis, lumbar region with neurogenic claudication documented [facility]* Diagnosis Abnormal finding of diagnostic imaging- Primary Other nonspecific (abnormal) findings on radiological and other examinations of body structure [facility] Diagnosis Abnormal finding of diagnostic imaging- Primary Other nonspecific (abnormal) findings on radiological and other examinations of body structure documented [facility]* Diagnosis Other hydronephrosis- Primary Bladder mass Other specified disorders of bladder [facility]* Diagnosis Abnormal finding of diagnostic imaging Other nonspecific (abnormal) findings on radiological and other examinations of body structure Hydronephrosis, unspecified hydronephrosis type documented [facility]* Diagnosis Bilateral hydronephrosis- Primary Hydronephrosis Bladder mass Other specified disorders of bladder Hydronephrosis, unspecified hydronephrosis type Mild protein-calorie malnutrition (HCC) Malnutrition of mild degree Morbid (severe) obesity due to excess calories (HCC) documented [facility] this encounter [facility]* Diagnosis 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 of unspecified nature of bladder [facility] No data available for this section [facility] No data available for this section [facility] reason for referral (narrative)* Outpatient Procedure (Routine) - Pending Review Specialty Diagnoses / Procedures Referred By Sima paulino [facility]erred To [facility] Diagnoses Cervical disc disorder with radiculopathy Right arm weakness Procedures EMG(NEURO/NI) NERVE CONDUCTION STUDIES 9-10 STUDIES Bryce Lara APRN.CNP [address] [id number] [facility] [address] [place] [address] Referral ID Status Reason Start Date Expiration Date Visits Requested Visits Authorized [id number] Pending Review Auto-Generat ed Referral 07/22/2022 07/23/2023 1 1 [facility] for referral (narrative)* Diagnostic Procedure Only (Routine) - Closed Specialty Diagnoses / Procedures Referred By Contac t Referred To Contact XR IMAGING Diagnoses Spinal stenosis of lumbar region, unspecified whether neurogenic claudication present Procedures XR SCOLIOSIS PA STAND/LAT 2V RADEX ENTIR THRC LMBR CRV SAC SPI W/SKULL 2/3 VW Moises Willis MD [address] [place] [address] Xr Imaging Referral ID Status Reason Start Date Expiration Date V isits Requested Visits Authorized [id number] Closed Auto-Generate d Referral 09/21/2022 10/21/2023 1 1 * MRI/CT (Routine) - Authorized Specialty Diagnoses / Procedures Referred By Contac t Referred To Contact MR IMAGING Diagnoses Spinal stenosis of lumbar region, unspecified whether neurogenic claudication present Procedures MRI LUMBAR SPINE WO IVCON MRI SPINAL CANAL LUMBAR W/O CONTRAST MATERIAL Moises Willis MD [address] [phone] Mr Imaging Referral ID Status Reason Start Date Expiration Date Visits Requested Visits Authorized [id number] Authorized Auto-Generat ed Referral 09/21/2022 10/21/2023 1 1 * MRI/CT (Routine) - Authorized Specialty Diagnoses / Procedures Referred By Contac t Referred To Contact MR IMAGING Diagnoses Spinal stenosis of lumbar region, unspecified whether neurogenic claudication present Procedures MRI THORACIC SPINE WO IVCON MRI SPINAL CANAL THORACIC W/O CONTRAST MATRL Moises Willis MD [address] [place] [address] Mr Imaging Referral ID Status Reason Start Date Expiration Date Visits Requested Visits Authorized [id number] Authorized Auto-Generat ed Referral 09/21/2022 10/21/2023 1 1 [facility] for referral (narrative)* Diagnostic Procedure Only (Routine) - Closed Specialty Diagnoses / Procedures Referred By Contac t Referred To Contact XR IMAGING Diagnoses Spinal stenosis of lumbar region, unspecified whether neurogenic claudication present Procedures XR SCOLIOSIS PA STAND/LAT 2V RADEX ENTIR THRC LMBR CRV SAC SPI W/SKULL 2/3 VW Moises Willis MD [address] [place] [address] Xr Imaging Referral ID Status Reason Start Date Expiration Date V isits Requested Visits Authorized [id number] Closed Auto-Generate d Referral 09/21/2022 10/21/2023 1 1 [facility] (narrative)* Diagnostic Procedure Only (Routine) - Closed Specialty Diagnoses / Procedures Referred By Contac t Referred To Contact XR IMAGING Diagnoses Spinal stenosis, lumbar region with neurogenic claudication Procedures XR LUMBAR MOTION 4V AP/LAT/ FLEX/EXT RADEX SPINE LUMBOSACRAL MINIMUM 4 VIEWS Champ Carr PA-C [address] [facility] [facility] [address] Xr Imaging [place] [address] Referral ID Status Reason Start Date Expiration Date V isits Requested Visits Authorized [id number] Closed Auto-Generate d Referral 11/27/2022 12/27/2023 1 1 [facility] for referral (narrative)* Diagnostic Procedure Only (Routine) - Closed Specialty Diagnoses / Procedures Referred By Contac t Referred To Contact US IMAGING Diagnoses Abnormal finding of diagnostic imaging Hydronephrosis, unspecified hydronephrosis type Procedures US KIDNEY/BLADDER US RETROPERITONEAL REAL TIME W/IMAGE COMPLETE Janina Hadley APRN.SHOWROOM MANAGER [address] [facility] [facility] [place] [phone] [place] [id number] Referral ID Status Reason Start Date Expiration Date V isits Requested Visits Authorized [id number] Closed Auto-Generate d Referral 03/25/2023 04/23/2024 1 1 [facility] for visit Narrative* Diagnostic Procedure Only (Routine) - Closed Specialty Diagnoses / Procedures [facility] Referred To Contact XR IMAGING Diagnoses Spinal stenosis of lumbar region, unspecified whether neurogenic claudication present Procedures XR SCOLIOSIS PA STAND/LAT 2V RADEX ENTIR THRC LMBR CRV SAC SPI W/SKULL 2/3 VW Moises Willis MD [address] [facility] [place] [phone] Xr Imaging Referral ID Status Reason Start Date Expiration Date V isits Requested Visits Authorized [id number] Closed Auto-Generate d Referral 09/21/2022 10/21/2023 1 1 [facility] for visit Narrative* Diagnostic Procedure Only (Routine) - Closed Specialty Diagnoses / Procedures [facility] Referred To Contact US IMAGING Diagnoses Abnormal finding of diagnostic imaging Hydronephrosis, unspecified hydronephrosis type Procedures US KIDNEY/BLADDER US RETROPERITONEAL REAL TIME W/IMAGE COMPLETE Janina Hadley, LEATHA.SHOWROOM MANAGER [address] [facility] [address] [place] [id number] Referral ID Status Reason Start Date Expiration Date V isits Requested Visits Authorized [id number] Closed Auto-Generate d Referral 03/25/2023 04/23/2024 1 1 [facility] Summary Purpose Family History No Family History Records Found Relationship Condition Age at Onset Recorded Date/T steven Not Specified Presence of cardiac pacemaker Unknown Hypertension Unknown Hyperlipidemia Unknown father Malignant neoplasm of liver Unknown brother Hyperlipidemia Unknown Advance Directives No Advanced Directives Records FoundDocuments on File Type Date Recorded Patient Fit Model Expl anation Advance Directives and Living Will Power of Transfer Knitter Latest Code Status on File Code Status [...] Specialty Diagnoses / Procedures Referred By Sima t Referred To Contact CT IMAGING Diagnoses Hydronephrosis, unspecified hydronephrosis type Procedures CT UROGRAM WO/W IVCON CT ABD & PELVIS W/WO CONTRST 1+ BODY Apurva Stauffer MD [address] [facility] [address] [place] [id number] Referral ID Status Reason Start Date Expiration Date Visits Requested Visits Authorized [id number] Pending Review Auto-Generat ed Referral 04/19/2023 05/18/2024 1 1 Specialty Diagnoses / Procedures Referred By Contac t Referred To Contact Urology Diagnoses Other hydronephrosis Bladder mass Procedures CONSULT TO UROLOGY OFFICE/OUTPATIENT [facility] 60 MINUTES Janina Hadley APRN.MERLYN [address] [phone] Referral ID Status Reason Start Date Expiration Date Visits Requested Visits Authorized [id number] Authorized PCP Requested Referral 04/15/2023 04/14/2024 1 1 Specialty Diagnoses / Procedures Referred By Contac t Referred To Contact MR IMAGING Diagnoses Spinal stenosis of lumbar region, unspecified whether neurogenic claudication present Procedures MRI LUMBAR SPINE WO IVCON MRI SPINAL CANAL LUMBAR W/O CONTRAST MATERIAL Moises Willis MD [address] [facility] [place] [phone] Mr [facility] Referral ID Status Reason Start Date Expiration Date V isits Requested Visits Authorized [id number] Closed Auto-Generate d Referral 09/21/2022 10/21/2023 1 1 Specialty Diagnoses / Procedures Referred By Contac t Referred To Contact MR IMAGING Diagnoses Spinal stenosis of lumbar region, unspecified whether neurogenic claudication present Procedures MRI THORACIC SPINE WO IVCON MRI SPINAL CANAL THORACIC W/O CONTRAST MATRL Moises Willis MD [address] [phone] Mr [facility] Referral ID Status Reason Start Date Expiration Date V isits Requested Visits Authorized [id number] Closed Auto-Generate d Referral 09/21/2022 10/21/2023 1 1 Specialty Diagnoses / Procedures Referred By Contac t Referred To Contact CT IMAGING Diagnoses Spinal stenosis of lumbar region with neurogenic claudication Procedures CT LUMBAR SPINE WO IVCON CT LUMBAR SPINE W/O CONTRAST MATERIAL Champ Carr PA-C [phone] [facility] Referral ID Status Reason Start Date Expiration Date Visits Requested Visits Authorized [id number] Pending Review Auto-Generat ed Referral 12/27/2023 1 1 Specialty Diagnoses / Procedures Referred By Contac t Referred To Contact XR IMAGING Diagnoses Spinal stenosis, lumbar region with neurogenic claudication Procedures XR LUMBAR MOTION 4V AP/LAT/ FLEX/EXT RADEX SPINE LUMBOSACRAL MINIMUM 4 VIEWS Champ Carr PA-C [address] [place] [address] Xr Imaging [place] [address] Referral ID Status Reason Start Date Expiration Date Visits Requested Visits Authorized [id number] Pending Review Auto-Generat ed Referral 3 12/27/2023 1 1 Specialty Diagnoses / Procedures Referred By Contac t Referred To Contact Diagnoses Spinal stenosis in cervical region Arm weakness Procedures CONSULT TO SPINE SURGERY OFFICE/OUTPATIENT [facility] 60-74 MINUTES Bryce Lara APRN.SHOWROOM MANAGER [facility] [place] [address] Referral ID Status Reason Start Date Expiration Date Visits Requested Visits Authorized [id number] Authorized PCP Requested Referral 07/29/2022 07/29/2023 1 1 Specialty Diagnoses / Procedures Referred By Contac t Referred To Contact Radiology Diagnoses Spinal stenosis, cervical region Procedures CT CERVICAL SPINE WO CONTRAST Bryce Lara APRN - SHOWROOM MANAGER [facility] [address] [facility] [address] [place] [address] Referral ID Status Reason Start Date Expiration Date Visits Re quested Visits Authorized [id number] Open 07/13/2022 07/13/2023 1 1 Specialty Diagnoses / Procedures Referred By Contac t Referred To Contact Radiology Diagnoses Cervical myelopathy (HCC) Procedures MRI CERVICAL SPINE WO CONTRAST Lon Antonio, [address] [place], [place] [id number] Referral ID Status Reason Start Date Expiration Date Visits Re quested Visits Authorized [id number] Closed 05/04/2022 05/04/2023 1 1 Reason consult and treat Diagnosis 1 Spinal stenosis of l umbar region with neurogenic claudication (M48.062) Referral Organization [facility] Family Medicin e Davy Referring Provider First Name Lon Referring Provider Last Name [place] Referring Provider Specialty Family Prac cleo Referred Organization [facility] Ne urosurgery Referred Provider Caprice Eubanks Referred Address [address] [facility] [address] ,[place], [place],[address] Referred Provider Specialty Neurological Surgery Referral Priority Routine General Notes SunitaravinderMelody campos Hannah 03/11 03:11:34 PM > This evaluation is requested to assist with determining if patient is able to drive with modifications. H/o c-spine fusion in 2019, will hard fax old notes from neurosurgeon seperately , files are too large to attach. No recent MRI- see our notes also about her recent PT etc. SunitaMelody alexis 03/26/2022 03:19:40 PM > Melody Flynn 03/26/2022 03:19:42 PM >sent p2p Additional Source Comments INFORMATION SOURCE (unrecogn ized section and content) DATE CREATED AUTHOR 07/17/2018 [facility] DATE CREATED AUTHOR AUTHOR'S ORGANIZ ATION 12/30/2018 [facility] DATE CREATED AUTHOR AUTHOR'S ORGANIZ ATION 12/31/2018 [facility] DATE CREATED AUTHOR AUTHOR'S ORGANIZ ATION 12/29/2020 [facility] DATE CREATED AUTHOR AUTHOR'S ORGANIZ ATION 04/10/2022 [facility] DATE CREATED AUTHOR AUTHOR'S ORGANIZ ATION 06/24/2022 [facility] DATE CREATED AUTHOR AUTHOR'S ORGANIZ ATION 07/20/2022 [facility] DATE CREATED AUTHOR AUTHOR'S ORGANIZ ATION 11/16/2022 [facility] DATE CREATED AUTHOR AUTHOR'S ORGANIZ ATION 03/19/2023 [facility] DATE CREATED AUTHOR AUTHOR'S ORGANIZ ATION 05/05/2023 [facility] REASON FOR VISIT (unrecogniz ed section and content) Specialty Diagnoses / Procedures Referred By Sima paulino Referred To Contact Radiology Diagnoses Cervical myelopathy (HCC) Procedures MRI CERVICAL SPINE WO CONTRAST Lon Antonio, [address] [place] [address] Referral ID Status Reason Start Date Expiration Date Visits Re quested Visits Authorized [id number] Closed 05/04/2022 05/04/2023 1 1 Specialty Diagnoses / Procedures Referred By Contac t Referred To Contact Radiology Diagnoses Spinal stenosis, cervical region M48.02 (ICD-10-CM) - Spinal stenosis, cervical region Procedures CT CERVICAL SPINE WO CONTRAST CHG CT CERVICAL SPINE W/O CONTRAST MATERIAL 48846 - CHG CT CERVICAL SPINE W/O CONTRAST MATERIAL Lon Ibrahim, DO Mthz Ct Scan [address] [id number] Referral ID Status Reason Start Date Expiration Date V isits Requested Visits Authorized [id number] Pending Review 07/03/2022 07/13/2023 1 1 Reason Comments Scans Reason Comments MRI Report Reason Comments Patient Update Reason Comments New Patient Specialty Diagnoses / Procedures Referred By Contac t Referred To Contact Diagnoses Spinal stenosis in cervical region Arm weakness Procedures CONSULT TO SPINE SURGERY OFFICE/OUTPATIENT NEW HIGH MDM 60-74 MINUTES Bryce Lara APRN.SHOWROOM MANAGER [address] [place] [address] Referral ID Status Reason Start Date Expiration Date V isits Requested Visits Authorized [id number] Closed PCP Requested Referral 07/29/2022 07/29/2023 1 1 Reason Comments Established Patient Specialty Diagnoses / Procedures Referred By Contac t Referred To Contact MR IMAGING Diagnoses Spinal stenosis of lumbar region, unspecified whether neurogenic claudication present Procedures MRI THORACIC SPINE WO IVCON MRI SPINAL CANAL THORACIC W/O CONTRAST MATRL Moises Willis MD [address] [place] [address] Mr Imaging [place] [address] Referral ID Status Reason Start Date Expiration Date V isits Requested Visits Authorized [id number] Closed Auto-Generate d Referral 09/21/2022 10/21/2023 1 1 Reason Comments Established Patient Follow Up Specialty Diagnoses / Procedures Referred By Contac t Referred To Contact Neurosurgery / SPINE SURGERY Diagnoses Spinal stenosis of lumbar region with neurogenic claudication Procedures EST NI PATIENT Moises Willis MD [address] [place] [address] Moises Willis MD [address] [place] [address] Referral ID Status Reason Start Date Expiration Date Visits Re quested Visits Authorized [id number] Closed 12/21/2022 02/07/2023 1 1 Reason Comments Radio Main J1 Specialty Diagnoses / Procedures Referred By Contac t Referred To Contact XR IMAGING Diagnoses Spinal stenosis, lumbar region with neurogenic claudication Procedures XR LUMBAR MOTION 4V AP/LAT/ FLEX/EXT RADEX SPINE LUMBOSACRAL MINIMUM 4 VIEWS Champ Carr PA-C [address] [employer] [place] [address] Xr Imaging [place] [address] Referral ID Status Reason Start Date Expiration Date V isits Requested Visits Authorized [id number] Closed Auto-Generate d Referral 11/27/2022 12/27/2023 1 1 Reason Comments Radiology Review Reason Comments Consult Specialty Diagnoses / Procedures Referred By Contac t Referred To Contact Urology Diagnoses Other hydronephrosis Bladder mass Procedures CONSULT TO UROLOGY OFFICE/OUTPATIENT [facility] 60 MINUTES Janina Hadley APRN.SHOWROOM MANAGER [address] [place] [address] Referral ID Status Reason Start Date Expiration Date V isits Requested Visits Authorized [id number] Closed PCP Requested Referral 04/15/2023 04/14/2024 1 1 Care Team (unrecognized sect ion and content) Team Status: Active Member Role Status Dates Lon Ibrahim DO Primary Care Provider Active Team Status: Inactive Member Role Status Dates Kelly Mcdowell APRN Attending Provider Active Team Status: Inactive Member Role Status Dates Lon Ibrahim DO Primary Care Provider, Attending Provi kenneth Active Human Resources Office Assistant Relationship Specialty Start Date End Date Lon Ibrahim DO PCP - General Family Medicine 02/23/19 Human Resources Office Assistant Relationship Specialty Start Date End Date Lon Ibrahim [address] [facility] [place] [address] PCP - General Family Medicine 06/05/22 Ann Marie Mccord, SHOWROOM MANAGER [address] [place] [address] Referring Family Medicine 06/19/22 Human Resources Office Assistant Relationship Specialty Start Date End Date Lon Ibrahim DO PCP - General Family Medicine 02/23/19 Human Resources Office Assistant Relationship Specialty Start Date End Date Jean-PierreanaLon Bc [address] [place] [address] PCP - General Family Medicine 06/05/22 Ann Marie Mccord CNP [address] [place] [address] Referring Family Medicine 06/19/22 Human Resources Office Assistant Relationship Specialty Start Date End Date Jean-PierreanaLon [address] [place] [address] PCP - General Family Medicine 06/05/22 Ann Marie Mccord CNP [address] [facility] [address] [place] [address] Referring Family Medicine 06/19/22 Human Resources Office Assistant Relationship Specialty Start Date End Date Lon Ibrahim [address] [place] [phone] PCP - General Family Medicine 06/05/22 Ann Marie Mccord CNP [address] [place] [address] Referring Family Medicine 06/19/22 Human Resources Office Assistant Relationship Specialty Start Date End Date Jean-PierreLon perez [address] [place] [address] PCP - General Family Medicine 06/05/22 Ann Marie Mccord CNP [address] [place] [address] Referring Family Medicine 06/19/22 Human Resources Office Assistant Relationship Specialty Start Date End Date Lon Ibrahim [address] [place] [address] PCP - General Family Medicine 06/05/22 Ann Marie Mccord CNP [address] [place] [address] Referring Family Medicine 06/19/22 Human Resources Office Assistant Relationship Specialty Start Date End Date Lon Ibrahim [address] [place] [phone] PCP - General Family Medicine 06/05/22 Ann Marie Mccord CNP [address] [place] [address] Referring Family Medicine 06/19/22 Human Resources Office Assistant Relationship Specialty Start Date End Date Lon Ibrahim [address] [place] [phone] PCP - General Family Medicine 06/05/22 Ann Marie Mccord CNP [address] [address] Referring Family Medicine 06/19/22 Human Resources Office Assistant Relationship Specialty Start Date End Date Lon Ibrahim [address] [place] [phone] PCP - General Family Medicine 06/05/22 Ann Marie Mccord CNP [address] [address] Referring Family Medicine 06/19/22 Human Resources Office Assistant Relationship Specialty Start Date End Date Lon Ibrahim [address] [place] [phone] PCP - General Family Medicine 06/05/22 Ann Marie Mccord CNP [address] [place] [address] Referring Family Medicine 06/19/22 Human Resources Office Assistant Relationship Specialty Start Date End Date Lon Ibrahim [address] [place] [phone] PCP - General Family Medicine 06/05/22 Ann Marie Mccord CNP [address] [place] [address] Referring Family Medicine 06/19/22 Human Resources Office Assistant Relationship Specialty Start Date End Date Lon Ibrahim [address] [place] [address] PCP - General Family Medicine 06/05/22 Ann Marie Mccord CNP [address], [place] [phone] Referring Family Medicine 06/19/22 Human Resources Office Assistant Relationship Specialty Start Date End Date Lon Ibrahim [address] [place] [phone] PCP - General Family Medicine 06/05/22 Ann Marie Mccord CNP [address] [place] [address] Referring Family Medicine 06/19/22 Human Resources Office Assistant Relationship Specialty Start Date End Date Lon Ibrahim [address] [place] [phone] PCP - General Family Medicine 06/05/22 Ann Marie Mccord CNP [address] [place] [address] Referring Family Medicine 06/19/22 Human Resources Office Assistant Relationship Specialty Start Date End Date Lon Ibrahim [address] [place] [phone] PCP - General Family Medicine 06/05/22 Ann Marie Mccord CNP [address] [place] [address] Referring Family Medicine 06/19/22 Goals (unrecognized section [...] or prosecute any alcohol or drug abuse patient.[facility] the event this information is protected by the Federal Confidentiality of Alcohol and Drug Abuse Patient Records regulations: The Federal rules restrict any use of the information to criminally investigate or prosecute any alcohol or drug abuse patient.[facility] HospitalIn the event this information is protected by the Federal Confidentiality of Alcohol and Drug Abuse Patient Records regulations: The Federal rules restrict any use of the information to criminally investigate or prosecute any alcohol or drug abuse patient.[facility] Hospital[facility] the event this information is protected by the Federal Confidentiality of Alcohol and Drug Abuse Patient Records regulations: The Federal rules restrict any use of the information to criminally investigate or prosecute any alcohol or drug abuse patient.[facility] Hospital[facility] the event this information is protected by the Federal Confidentiality of Alcohol and Drug Abuse Patient Records regulations: The Federal rules restrict any use of the information to criminally investigate or prosecute any alcohol or drug abuse patient.[facility] HospitalIn the event this information is protected by the Federal Confidentiality of Alcohol and Drug Abuse Patient Records regulations: The Federal rules restrict any use of the information to criminally investigate or prosecute any alcohol or drug abuse patient.[facility] Hospital[facility] the event this information is protected by the Federal Confidentiality of Alcohol and Drug Abuse Patient Records regulations: The Federal rules restrict any use of the information to criminally investigate or prosecute any alcohol or drug abuse patient.[facility] HospitalIn the event this information is protected by the Federal Confidentiality of Alcohol and Drug Abuse Patient Records regulations: The Federal rules restrict any use of the information to criminally investigate or prosecute any alcohol or drug abuse patient.[facility] HospitalIn the event this information is protected by the Federal Confidentiality of Alcohol and Drug Abuse Patient Records regulations: The Federal rules restrict any use of the information to criminally investigate or prosecute any alcohol or drug abuse patient.[facility] Hospital[facility] the event this information is protected by the Federal Confidentiality of Alcohol and Drug Abuse Patient Records regulations: The Federal rules restrict any use of the information to criminally investigate or prosecute any alcohol or drug abuse patient.[facility] HospitalIn the event this information is protected by the Federal Confidentiality of Alcohol and Drug Abuse Patient Records regulations: The Federal rules restrict any use of the information to criminally investigate or prosecute any alcohol or drug abuse patient.[facility] HospitalIn the event this information is protected by the Federal Confidentiality of Alcohol and Drug Abuse Patient Records regulations: The Federal rules restrict any use of the information to criminally investigate or prosecute any alcohol or drug abuse patient.[facility] HospitalIn the event this information is protected by the Federal Confidentiality of Alcohol and Drug Abuse Patient Records regulations: The Federal rules restrict any use of the information to criminally investigate or prosecute any alcohol or drug abuse patient.[facility] HospitalIn the event this information is protected by the Federal Confidentiality of Alcohol and Drug Abuse Patient Records regulations: The Federal rules restrict any use of the information to criminally investigate or prosecute any alcohol or drug abuse patient.[facility] HospitalIn the event this information is protected by the Federal Confidentiality of Alcohol and Drug Abuse Patient Records regulations: The Federal rules restrict any use of the information to criminally investigate or prosecute any alcohol or drug abuse patient.[facility] HospitalIn the event this information is protected by the Federal Confidentiality of Alcohol and Drug Abuse Patient Records regulations: The Federal rules restrict any use of the information to criminally investigate or prosecute any alcohol or drug abuse patient.[facility] HospitalIn the event this information is protected by the Federal Confidentiality of Alcohol and Drug Abuse Patient Records regulations: The Federal rules restrict any use of the information to criminally investigate or prosecute any alcohol or drug abuse patient.[facility] HospitalIn the event this information is protected by the Federal Confidentiality of Alcohol and Drug Abuse Patient Records regulations: The Federal rules restrict any use of the information to criminally investigate or prosecute any alcohol or drug abuse patient.[facility] HospitalIn the event this information is protected by the Federal Confidentiality of Alcohol and Drug Abuse Patient Records regulations: The Federal rules restrict any use of the information to criminally investigate or prosecute any alcohol or drug abuse patient.[facility] HospitalIn the event this information is protected by the Federal Confidentiality of Alcohol and Drug Abuse Patient Records regulations: The Federal rules restrict any use of the information to criminally investigate or prosecute any alcohol or drug abuse patient.[facility] HospitalIn the event this information is protected by the Federal Confidentiality of Alcohol and Drug Abuse Patient Records regulations: The Federal rules restrict any use of the information to criminally investigate or prosecute any alcohol or drug abuse patient.[facility] FOR RECORDS PERTAINING TO PATIENTS WHO [...] BE BASED ON THE PRIMARY CLINICAL RECORDS. [facility] [employer] [facility]. provides no warranty or guarantee of the accuracy or completeness of information in this document.
--- NOTE | 2023-05-07 14:45 | ED_ITS ---
HPI - Female Genitourinary General Chief complaint: Urogenital-Female Stated complaint: CATHETER CAME OUT Time Seen by Provider: 05/07/23 14:38 Source: patient Mode of arrival: Wheelchair Limitations: physical limitation History of Present Illness HPI Narrative: 52-year-old female presents to the emergency department because her Jansen catheter fell out. She does not know how it happened. She did not feel it and does not have any pain, there is been no bleeding. She is under the care of a urologist at the [facility] and she was told she will need it for a month because of infections. Related Data Home Medications ?Medication ?Instructions ?Recorded ?Confirmed apixaban 5 mg tablet (Eliquis) 5 mg PO DAILY 07/25/22 05/07/23 gabapentin 300 mg capsule 300 mg PO BID 07/25/22 05/07/23 metoprolol tartrate 25 mg tablet 25 mg PO DAILY 07/25/22 05/07/23 solifenacin 5 mg tablet 5 mg PO DAILY 07/25/22 05/07/23 Previous Rx's ?Medication ?Instructions ?Recorded cephalexin 500 mg capsule 500 mg PO TID 7 days #21 caps 10/20/22 Allergies Allergy/AdvReac Type Severity Reaction Status Date / Time adhesive tape AdvReac Intermediate Rash Verified 05/07/23 14:34 Review of Systems ROS Narrative A ten point review of systems is negative except as noted above. PFSH PFSH Social History Smoking status: Never smoker Exam Narrative Exam Narrative: Nurses note and vital signs reviewed and patient is not hypoxic. General: The patient appears well and in no apparent distress. Patient is resting comfortably on cart. Skin: Warm, dry, no pallor noted. There is no rash noted. Head: Normocephalic, atraumatic Ears, Nose, Mouth, and Throat: oral mucosa is moist. Nares patent. Cardiovascular: Regular Rate and Rhythm Respiratory: Patient is in no distress, no accessory muscle use, lungs are clear to auscultation, no wheezing, rales or rhonchi Back: non-tender GI: Soft and nontender Musculoskeletal: No joint swelling Neurological: Awake and alert Psychiatric: Cooperative Constitutional Vital Signs, click to edit/add: Last Vital Signs Temp 98.1 F 05/07/23 14:30 Pulse 87 05/07/23 14:30 Resp 18 05/07/23 14:30 BP 132/95 H 05/07/23 14:30 Pulse Ox 93 L 05/07/23 14:30 O2 Del Method Room Air 05/07/23 14:30 Course Vital Signs Vital signs: Vital Signs Temperature 98.1 F 05/07/23 14:30 Pulse Rate 87 05/07/23 14:30 Respiratory Rate 18 05/07/23 14:30 Blood Pressure 132/95 H 05/07/23 14:30 Pulse Oximetry 93 L 05/07/23 14:30 Oxygen Delivery Method Room Air 05/07/23 14:30 Temperature 98.1 F 05/07/23 14:30 Pulse Rate 87 05/07/23 14:30 Respiratory Rate 18 05/07/23 14:30 Blood Pressure 132/95 H 05/07/23 14:30 Pulse Oximetry 93 L 05/07/23 14:30 Oxygen Delivery Method Room Air 05/07/23 14:30 MDM - Female Genitourinary MDM Narrative Medical decision making narrative: Jansen catheter was replaced and she is discharged home. Differential Diagnosis Differential diagnosis: Likely other (Jansen catheter displacement) Discharge Plan Discharge Stand Alone Forms: Portal Instructions Chief Complaint: Urogenital-Female Clinical Impression: Displacement of Jansen catheter Patient Disposition: Home, Self-Care Time of Disposition Decision: 14:44 Condition: Good Mode of Transportation: Private Vehicle Prescriptions / Home Meds: No Action Eliquis 5 mg tablet 5 mg PO DAILY gabapentin 300 mg capsule 300 mg PO BID metoprolol tartrate 25 mg tablet 25 mg PO DAILY solifenacin 5 mg tablet 5 mg PO DAILY cephalexin 500 mg capsule 500 mg PO TID 7 Days Qty: 21 0RF Print Language: Tajik Instructions: Jansen Catheter Placement and Care (ED) Referrals: Physician,Non-Staff, MD [Primary Care Provider] - 1 week
[2023-05-07] MEDS: OXYBUTYNIN chloride 5 MG TABLET 10 MG PO (15:21)
== END 2023-05-07 16:08 | disposition home or self-care (01) ==
PROVIDERS: Emergency Provider Emergency Medicine
DX: Z46.6 Encounter for fitting and adjustment of urinary device (principal); Z79.01 Long term (current) use of anticoagulants; Z79.899 Other long term (current) drug therapy
CPT/HCPCS: 51702; 99284

== ENCOUNTER 2023-05-26 10:37 | Emergency (ER) | payer MEDICARE, SELFPAY ==
[2023-05-26 10:43] VITALS: BP 120/74; PULSE 57; TEMP 36.7; O2SAT 94; BMI 44.9
--- NOTE | 2023-05-26 11:12 | XR_ITS ---
The [address] [address] Patient Name: LUIS DANIEL SMITH MRN: [id number] date: 1970 Sex: F Assigned Patient Location: ER Current Patient Location: ER Accession/Order Number: [id number] Exam Date: 05/26/2023 11:25 Report Date: 05/26/2023 12:11 At the request of: NEEL CARTER Procedure: XR cervical spine 2-3V EXAMINATION: XR cervical spine 2-3V HISTORY: Atraumatic pain, woke up 2 days ago with pain COMPARISON: No relevant comparison available. FINDINGS: BONES: Normal alignment with no acute fracture or spondylolisthesis. Mild to moderate degenerative spondylosis and facet osteoarthropathy. Anterior fusion with interbody spacer C4-C5. No mechanical failure DISC SPACES: Mild to moderate multilevel disc space narrowing most significant C3-4 and C5-6 PARASPINOUS: Negative. No paraspinous abnormality is seen. OTHER: Negative. XR/XR cervical spine 2-3V IMPRESSION: Mild to moderate degenerative change with no acute abnormality Anterior C4-C5 fusion Electronically authenticated by: BRAD TRUJILLO Date: 05/26/2023 12:11
--- NOTE | 2023-05-26 11:13 | ED.NECK1 ---
HPI HPI - Neck Pain/Injury General Chief Complaint: Neck Pain/Injury Stated Complaint: NECK PAIN Time Seen by Provider: 05/26/23 11:10 Source: patient Mode of arrival: walk-in Limitations: no limitations History of Present Illness HPI Narrative: 52-year-old female presents for neck pain. She woke up this way 2 days ago. There was no injury or unusual activity. 5 years ago she had C3-C4 fusion. She does not know if there is hardware in her neck or not. The pain is bilateral and goes towards her shoulders. No weakness or numbness. The pain is moderate and worse if she turns her head. Related Data Home Medications ?Medication ?Instructions ?Recorded ?Confirmed apixaban 5 mg tablet (Eliquis) 5 mg PO DAILY 07/25/22 05/26/23 gabapentin 300 mg capsule 300 mg PO BID 07/25/22 05/26/23 metoprolol tartrate 25 mg tablet 25 mg PO DAILY 07/25/22 05/26/23 solifenacin 5 mg tablet 5 mg PO DAILY 07/25/22 05/26/23 gabapentin 600 mg tablet 600 mg PO DAILY 05/26/23 05/26/23 Previous Rx's ?Medication ?Instructions ?Recorded methocarbamol 750 mg tablet 750 mg PO Q8H #20 tabs 05/26/23 Allergies Allergy/AdvReac Type Severity Reaction Status Date / Time adhesive tape AdvReac Intermediate Rash Verified 05/07/23 14:34 Opioid HPI Opioid Management Most Recent Opioid Data: Last Pain Scale 7 05/26/23 11:24 Review of Systems ROS Narrative A ten point review of systems is negative except as noted above. PFSH PFSH Social History Smoking status: Never smoker Exam Narrative Exam Narrative: Nurses note and vital signs reviewed and patient is not hypoxic. General: The patient is sitting in a wheelchair and is reluctant to turn her head. Skin: Warm, dry, no pallor noted. There is no rash noted. Head: Normocephalic, atraumatic; neck has no bruise or rash or swelling or mass. Eye: Normal conjunctiva, no drainage Ears, Nose, Mouth, and Throat: oral mucosa is moist. Nares patent. Cardiovascular: Regular Rate and Rhythm Respiratory: Patient is in no distress, no accessory muscle use, lungs are clear to auscultation, no wheezing, rales or rhonchi GI: Soft and nontender Musculoskeletal: No joint swelling Neurological: A&O, normal speech Psychiatric: Cooperative Constitutional Vital Signs, click to edit/add: Last Vital Signs Temp 98.0 F 05/26/23 10:43 Pulse 57 L 05/26/23 10:43 Resp 18 05/26/23 10:43 BP 120/74 05/26/23 10:43 Pulse Ox 94 L 05/26/23 10:43 O2 Del Method Room Air 05/26/23 10:43 Course Vital Signs Vital signs: Vital Signs Temperature 98.0 F 05/26/23 10:43 Pulse Rate 57 L 05/26/23 10:43 Respiratory Rate 18 05/26/23 10:43 Blood Pressure 120/74 05/26/23 10:43 Pulse Oximetry 94 L 05/26/23 10:43 Oxygen Delivery Method Room Air 05/26/23 10:43 Temperature 98.0 F 05/26/23 10:43 Pulse Rate 57 L 05/26/23 10:43 Respiratory Rate 18 05/26/23 10:43 Blood Pressure 120/74 05/26/23 10:43 Pulse Oximetry 94 L 05/26/23 10:43 Oxygen Delivery Method Room Air 05/26/23 10:43 MDM - Neck Pain/Injury MDM Narrative Medical decision making narrative: X-ray findings were discussed with the patient. She had fusion of C4-5, not C3-4 as she thought. No acute findings are present and she is feeling improved with IM Norflex. Treatment diagnosis and follow-up were discussed with the patient. Differential Diagnosis Differential diagnosis: Likely disc disorder of cervical region, cervical radiculopathy, torticollis and strain of neck muscle Imaging Data X-ray C-spine: Radiologist's impression: ITS Impressions Cervical Spine X-Ray 05/26/23 11:12 IMPRESSION: Mild to moderate degenerative change with no acute abnormality Anterior C4-C5 fusion Electronically authenticated by: BRAD TRUJILLO Date: 05/26/2023 12:11 Discharge Plan Discharge Stand Alone Forms: Portal Instructions Chief Complaint: Neck Pain/Injury Clinical Impression: Cervical muscle strain Patient Disposition: Home, Self-Care Time of Disposition Decision: 12:25 Condition: Good Mode of Transportation: Private Vehicle Prescriptions / Home Meds: New methocarbamol 750 mg tablet 750 mg PO Q8H Qty: 20 0RF No Action Eliquis 5 mg tablet 5 mg PO DAILY gabapentin 300 mg capsule 300 mg PO BID metoprolol tartrate 25 mg tablet 25 mg PO DAILY solifenacin 5 mg tablet 5 mg PO DAILY gabapentin 600 mg tablet 600 mg PO DAILY Print Language: Iranian Instructions: Cervical Strain (ED) Referrals: Physician,Non-Staff, MD [Primary Care Provider] - 1 week
[2023-05-26] MEDS: ORPHENADRINE 60 MG/ 2 ML VIAL IM (11:20)
== END 2023-05-26 12:51 | disposition home or self-care (01) ==
PROVIDERS: Emergency Provider Emergency Medicine
DX: S16.1XXA Strain of muscle, fascia and tendon at neck level, initial encounter (principal); X58.XXXA Exposure to other specified factors, initial encounter; Z98.1 Arthrodesis status; Z79.899 Other long term (current) drug therapy; Z79.01 Long term (current) use of anticoagulants
CPT/HCPCS: 72040; 96372; 99284

== ENCOUNTER 2023-10-08 09:30 | Outpatient (RCR) | payer MEDICARE, SELFPAY | END 2023-11-05 15:28 | disposition home or self-care (01) | LOC: OT 09:30 | PROVIDERS: PCP Family Medicine; Visit Provider Family Medicine | DX: Z74.09 Other reduced mobility (principal) | CPT/HCPCS: 97166 ==

== ENCOUNTER 2024-01-25 14:16 | Emergency (ER) | payer MEDICARE, SELFPAY ==
[2024-01-25 14:25] VITALS: BP 131/95; PULSE 77; TEMP 37; O2SAT 95; BMI 44.9
--- NOTE | 2024-01-25 14:45 | ED_ITS ---
HPI - Female Genitourinary General Chief complaint: Urogenital-Female Stated complaint: UTI COMPLAINTS Time Seen by Provider: 01/25/24 14:39 Source: patient Mode of arrival: Wheelchair History of Present Illness HPI Narrative: 53 year old female presents to the ED for UTI concern. Reports fever, brain fog the past 3 days. She noticed blood in her urine today. She is incontinent of urine and utilizes the Purewick at home. Denies abd pain, flank pain, N/V/D. She has decreased sensation from the waist down; onset in 2019. She ambulates with a walker. Related Data Home Medications ?Medication ?Instructions ?Recorded ?Confirmed apixaban 5 mg tablet (Eliquis) 5 mg PO DAILY 07/25/22 05/26/23 gabapentin 300 mg capsule 300 mg PO BID 07/25/22 05/26/23 metoprolol tartrate 25 mg tablet 25 mg PO DAILY 07/25/22 05/26/23 solifenacin 5 mg tablet 5 mg PO DAILY 07/25/22 05/26/23 gabapentin 600 mg tablet 600 mg PO DAILY 05/26/23 05/26/23 Previous Rx's ?Medication ?Instructions ?Recorded methocarbamol 750 mg tablet 750 mg PO Q8H #20 tabs 05/26/23 cephalexin 500 mg capsule 500 mg PO TID #15 caps 01/25/24 Allergies Allergy/AdvReac Type Severity Reaction Status Date / Time adhesive tape AdvReac Intermediate Rash Verified 05/07/23 14:34 Review of Systems ROS Constitutional Reports: fever; Denies: chills Ears, nose, mouth, and throat Denies: throat pain Cardiovascular Denies: chest pain Respiratory Denies: shortness of breath or cough Gastrointestinal Denies: abdominal pain, nausea, vomiting or diarrhea Genitourinary Reports: blood in urine; Denies: painful urination, urinary frequency or urinary urgency Musculoskeletal Denies: back pain or neck pain Integumentary/Breast Denies: rash Neurological Denies: headache PFSH PFSH Social History Smoking status: Never smoker Little interest or pleasure in doing things: not at all Feeling down, depressed, or hopeless: not at all Exam Constitutional Vital Signs, click to edit/add: Last Vital Signs Temp 98.6 F 01/25/24 14:25 Pulse 77 01/25/24 14:25 Resp 16 01/25/24 14:25 BP 131/95 H 01/25/24 14:25 Pulse Ox 95 01/25/24 14:25 O2 Del Method Room Air 01/25/24 14:25 Common normals: no apparent distress and oriented x3 General appearance: cooperative; not ill appearing HENMT Common normals: moist oral mucous membranes Eye Common normals: conjunctivae normal and no scleral icterus Neck & C-Spine Common normals: supple Chest Chest: symmetrical chest wall rise Respiratory Common normals: normal respiratory effort Effort & inspection: able to speak in complete sentences and symmetric chest movement Cardio Common normals: regular rate and regular rhythm GI Common normals: Normal to inspection, nondistended, normoactive bowel sounds present, soft to palpation and non-tender Common normals: no CVA tenderness Neuro Common normals: oriented x3 Sensorium/orientation: awake and alert Speech: speech normal Course Vital Signs Vital signs: Vital Signs Temperature 98.6 F 01/25/24 14:25 Pulse Rate 77 01/25/24 14:25 Respiratory Rate 16 01/25/24 14:25 Blood Pressure 131/95 H 01/25/24 14:25 Pulse Oximetry 95 01/25/24 14:25 Oxygen Delivery Method Room Air 01/25/24 14:25 Temperature 98.6 F 01/25/24 14:25 Pulse Rate 77 01/25/24 14:25 Respiratory Rate 16 01/25/24 14:25 Blood Pressure 131/95 H 01/25/24 14:25 Pulse Oximetry 95 01/25/24 14:25 Oxygen Delivery Method Room Air 01/25/24 14:25 MDM - Female Genitourinary MDM Narrative Medical decision making narrative: Urinalysis showed infection; culture was pending. A prescription was provided for Keflex. Follow up with pcp for a recheck, further evaluation and treatment. Differential Diagnosis Differential diagnosis: Likely urinary tract infection, cystitis and other Medical Records Attestation: I reviewed the patient's medical records. Lab Data Attestation: I reviewed the patient's lab results. Labs: Lab Results 01/25/24 Range/Units 14:40 Urine Color Yellow (YELLOW) Urine Clarity Clear (CLEAR) Urine pH 6.0 (5.0-9.0) Ur Specific [place] 1.015 (1.005-1.025) Urine Protein 30 A (NEG/TRACE) mg/dL Urine Glucose (UA) Negative (NEGATIVE) mg/dL Urine Ketones Negative (NEGATIVE) mg/dL Urine Occult Blood Moderate A (NEGATIVE) Urine Nitrite Positive A (NEGATIVE) Urine Bilirubin Negative (NEGATIVE) Urine Urobilinogen 0.2 (0.2-1.0) EU/dL Ur Leukocyte Esterase Large A (NEGATIVE) Urine RBC 5-10 A (0-2) #/HPF Urine WBC >100 A (NONE SEEN) #/HPF Ur Squamous Epith Cells Few A (NONE/RARE) #/LPF Urine Crystals None seen (None Seen) #/HPF Urine Bacteria Moderate A (NONE SEEN) #/HPF Urine Casts None seen (NONE SEEN) #/LPF Urine Mucus None seen (NONE SEEN) Ur Culture Indicated? Yes Discharge Plan Discharge Chief Complaint: Urogenital-Female Clinical Impression: Urinary tract infection Patient Disposition: Home, Self-Care Time of Disposition Decision: 14:53 Condition: Good Mode of Transportation: Private Vehicle Prescriptions / Home Meds: New cephalexin 500 mg capsule 500 mg PO TID Qty: 15 0RF No Action Eliquis 5 mg tablet 5 mg PO DAILY gabapentin 300 mg capsule 300 mg PO BID metoprolol tartrate 25 mg tablet 25 mg PO DAILY solifenacin 5 mg tablet 5 mg PO DAILY gabapentin 600 mg tablet 600 mg PO DAILY methocarbamol 750 mg tablet 750 mg PO Q8H Qty: 20 0RF Print Language: Estonian Instructions: Urinary Tract Infection in Women (ED) Additional Instructions: Return to the ER for worsening symptoms. Referrals: LON IBRAHIM [Primary Care Provider] - 1 week Discharge Date/Time: 01/25/24 15:16
[2024-01-25 14:48] LABS: Bilirubin Urine NEGATIVE (NEGATIVE); Blood Urine MODERATE (NEGATIVE); Clarity Urine CLEAR (CLEAR); Color Urine YELLOW (YELLOW); Glucose Urine UA NEGATIVE (NEGATIVE); Ketones Urine NEGATIVE (NEGATIVE); Leukocyte Esterase Urine LARGE (NEGATIVE); Nitrite Urine POSITIVE (NEGATIVE); Protein Urine 30 mg/dL (NEG/TRACE); Specific Gravity Urine 1.015 (1.005-1.025); Urine Microscopic Indicated YES; Urobilinogen Urine 0.2 EU/dL (0.2-1.0)
[2024-01-25 14:55] LABS: Bacteria Urine MODERATE #/HPF (NONE SEEN); Cast Seen? NONE SEEN #/LPF (NONE SEEN); Crystals Seen? None Seen #/HPF (None Seen); Mucus Urine NONE SEEN (NONE SEEN); Squamous Epithelial Cell Urine FEW #/LPF (NONE/RARE); Urine Culture Indicated YES; WBC Urine >100 #/HPF (NONE SEEN)
== END 2024-01-25 15:16 | disposition home or self-care (01) ==
PROVIDERS: Nurse Practitioner Family; Emergency Provider Emergency Medicine; PCP Family Medicine
DX: N39.0 Urinary tract infection, site not specified (principal)
CPT/HCPCS: 81001; 87086; 87150; 87186; 99285

== ENCOUNTER 2024-12-14 10:01 | Outpatient (OUT) | payer MEDICARE, SELFPAY ==
--- OUTSIDE RECORDS SUMMARY | 2024-12-13 19:30 | XMS_ITS | Continuity of Care Document ---
Author Organization [facility] Address [address] [place] [address] Phone Care Team Providers Care Benefits Advisor Name Role Phone Garth Altamirano DO Primary Care Provider Garth Altamirano DO Attending Provider Care Teams Patient Care Team Team Status: Active Member Role/Relationship Status Dates Garth Altamirano DO Primary Care Provider Active Visit Care Team Team Status: Inactive Member Role/Relationship Status Dates Garth Altamirano DO Primary Care Provider Active Sta rt: December 13, 2024 End: December 13rose Altamirano DOAttcarline ProviderActiveStart: December 13, 2024 End: December 13, 2024 Visit Care Team Team Status: Inactive Member Role/Relationship Status Dates Garth Altamirano DO Primary Care Provider Active Sta rt: December 13, 2024 End: December 13Herrera Ramirez ProviderActiveStart: December 13, 2024 End: December 13, 2024 Chief Complaint and Reason for Visit Chief Complaint Admit Date follow up December 13, 2024 1 :07pm Reason for Visit Admit Date BMI 50.0-59.9, adult December 13, 2024 1:07pm Chronic UTI December 13, 2024 1 :07pm Decreased mobility December 13, 2024 1 :07pm Lumbar radiculopathy December 13, 2024 1:07pm Skin breakdown December 13, 2024 1 :07pm Allergies, Adverse Reactions, Alerts Allergen Type Severity Reaction Last Updated Verified Status amoxicillin Allergy Unknown diarrhea, vomiting December 13, 2024 1:45pm Yes Active clavulanic acid Allergy Unknown diarrhea, vomiting December 13, 2024 1:45pm Yes Active oxycodone Allergy Unknown dizziness December 13, 2024 1:45pm Yes Active adhesive tape Adverse Reaction Unknown itchy rash December 13, 2024 1:45pm Yes Active Social History Smoking Status Status Start Date End Date Date of Observa tion Never smoked tobacco (finding) September 23, 2020 9:15am Observation Status Observation Response Date of Response Legal Sex [facility] (finding) [facility] Family History Relationship Condition Age at Onset Recorded Date/T steven mother Presence of cardiac pacemaker Unknown HypertensionUnknownHyperlipidemiaUnknownfatherMalignant neoplasm of liverUnknown brotherHyperlipidemiaUnknownbrotherHyperlipidemiaUnknownfatherMalignant neoplasm UnknownDeceasedUnknownfatherMalignant neoplasmUnknowngrandparentHeart disease UnknownDeceasedUnknowngrandparentDiabetes mellitusUnknownDeceasedUnknown grandparentDeceasedUnknownDiabetes mellitusUnknowngrandparentDeceasedUnknown grandparentHeart diseaseUnknowngrandparentDiabetes mellitusUnknowngrandparent Diabetes mellitusUnknownmotherHypertensionUnknownDeceasedUnknownmother HypertensionUnknown Problems Active Problems Problem Diagnosis/Recorded Date Onset Date Status C omments Obstructive sleep apnea May 20, 2023 7:55am Unknown Active Other specified postprocedural statesApril 2023 7:55amUnknownActiveLumbar radiculopathyApril 2023 7:55amUnknownActiveHx of gastric bypassFebruary 2020 1:33pmUnknownActiveMorbid obesityJune 2023 8:11amUnknownActive Neurogenic bladderApril 2023 7:11lrJvquljiYekwemB3ZB (type 2 diabetes mellitus)March 28, 2019 4:41pmUnknownActiveDepressionApril 2023 7:56amUnknownActiveHyperglycemiaApril 2023 7:55amUnknownActive HyperlipidemiaApril 2023 7:55amUnknownActiveLimited mobilityFebruary 2020 1:31pmUnknownActiveChronic UTIApril 2023 7:56amUnknownActiveDiastolic heart failureApril 2023 7:56amUnknownActiveDecreased activities of daily living (ADL)August 02, 2023 12:00pmUnknownActiveLow back pain with right-sided sciaticaApril 2023 7:55amUnknownActiveOsteoarthritisApril 2023 7:55amUnknownActiveNSTEMI (non-ST elevated myocardial infarction)May 20, 2023 7:56amUnknownActiveS/P bariatric surgeryApril 2023 7:55amUnknown ActiveUrinary catheter (Jansen) change requiredApril 2023 5:20pmUnknown ActiveRight leg paresthesiasApril 2023 7:55amUnknownActiveRenal cystApril 2023 7:55amUnknownActiveDegenerative lumbar discApril 2023 7:55am UnknownActiveShakinessJune 2023 8:03amUnknownActiveVenous insufficiency May 20, 2023 7:56amUnknownActiveDecreased mobilityJune 2023 12:00pm UnknownActiveCervical myelopathyApril 2023 7:55amUnknownActiveBMI 50.0- 59.9, adultNovember 2024 4:15pmUnknownActiveS/P cholecystectomyApril 2023 7:55amUnknownActiveAnxiety and depressionApril 2023 7:55amUnknown ActiveLeft foot dropApril 2023 7:55amUnknownActiveHistory of pulmonary embolismApril 2023 7:55amUnknownActiveSkin breakdownNovember 2024 2:12pmUnknownActiveGERD (gastroesophageal reflux disease)May 20, 2023 7:56am UnknownActiveImpaired mobilityAugust 2023 1:08pmUnknownActiveVitamin D deficiencyApril 2023 7:56amUnknownActiveObesityApril 2023 7:56am UnknownActiveObesityJuly 2019 7:34amUnknownActiveInactive/Resolved Problems Problem Diagnosis/Recorded Date Onset Date Status C omments UTI (urinary tract infection) August 28, 2019 8:47am Unknown Resolved Problem L ist clean-up per request of Phys. EHR Cmte Neck pain with history of cervical spinal surgery March 28, 2019 9:36am Unknown Resolved Probl em List clean-up per request of Phys. EHR Cmte Elevated troponin I level August 28, 2019 12:53pm Unknown Resolved Problem List clean-up per request of Phys. EHR Cmte Dizziness August 28, 2019 8:48am Unknown Resolved Pr oblem List clean-up per request of Phys. EHR Cmte Morbid obesity March 21, 2019 2:17pm Unknown Resol tara Problem List clean-up per request of Phys. EHR Cmte DSD (detrusor and sphincter dyssynergia) March 28, 2019 9:38am Unknown Resolved Probl em List clean-up per request of Phys. EHR Cmte Stranguria March 28, 2019 9:35am Unknown Resolved Problem List clean-up per request of Phys. EHR Cmte Ulcer March 19, 2020 1:32pm Unknown Resolved Anemialy 2019 7:32amUnknownResolvedProblem List clean-up per request of Phys. EHR CmteColonization with multidrug-resistant bacteriaFebruary 2019 9:36amUnknownResolvedProblem List clean-up per request of Phys. EHR Cmte Infection with multi-drug resistant microorganismsFebruary 2019 9:36am UnknownResolvedProblem List clean-up per request of Phys. EHR CmteChronic UTI March 28, 2019 9:35amUnknownResolvedProblem List clean-up per request of Phys. EHR CmteDiastolic heart failurely 2019 7:34amUnknownResolved Problem List clean-up per request of Phys. EHR CmteNSTEMI (non-ST elevated myocardial infarction)August 28, 2019 8:48amUnknownResolvedProblem List clean-up per request of Phys. EHR CmteElevated troponinly 2019 3:43amUnknown ResolvedProblem List clean-up per request of Phys. EHR CmteUrinary retention March 29, 2019 6:59amUnknownResolvedProblem List clean-up per request of Phys. EHR CmteFoot dropJuly 2019 7:32amUnknownResolvedProblem List clean- up per request of Phys. EHR CmteDeclining functional statusFebruary 2019 6:58amUnknownResolvedProblem List clean-up per request of Phys. EHR CmteAcute non-ST elevation myocardial infarction (NSTEMI)August 27, 2019 11:23pmUnknown ResolvedProblem List clean-up per request of Phys. EHR CmtePost-operative state August 28, 2019 8:47amUnknownResolvedProblem List clean-up per request of Phys. EHR CmtePulmonary embolismFebruary 2019 2:04pmUnknownResolvedProblem List clean-up per request of Phys. EHR CmteKidney filling defectFebruary 2019 7:01amUnknownResolvedProblem List clean-up per request of Phys. EHR CmteBladder massFebruary 2019 9:35amUnknownResolvedProblem List clean-up per request of Phys. EHR CmteHypertensionFebruary 2019 4:41pmUnknownResolvedProblem List clean-up per request of Phys. EHR Cmte Medications Medication Status Dose Units Route Directions Qty Days Refills S tart Date Stop Date End Date Reason(s) Instructions Adherence Gabapentin 600 mg tablet Discontinued 600 MG PO Da juliane March 29, 2023 12:00amFebruary 2023 12:37pmGabapentin 600 mg tablet Vfxcwdyfmazd389XXRNSabbg996Wondrorz 2023 12:36pmMay 2023 11:32am Apixaban (Eliquis) 5 mg iqimglFccpcgfhfahw4QRDMGijru bbtox1402Fmomw 2023 2:30pmAugust 2023 1:15pmGabapentin 600 mg aozpyfFqckqspkfosf219QGRYFuypy88 2023 11:32amAugust 2023 1:15pmApixaban (Eliquis) 5 mg tablet Mpozsgsqsuju2HIDKVilgu gcikj8610Twduye2023 1:14pmMarch 2024 3:25pm Metoprolol Tartrate 25 mg jdifplJonalzdhrckq68.5MGPOTwice clcbg1685Mjhroh2023 1:14pmAugust 2024 1:50pmGabapentin 300 mg ldwqgxgUjnlwmetrtau991FXAX Twice ipdyr950945Hwqakp2023 1:15pmMar2024 3:25pmFreeTextSi capsule orally in the morning and in the afternoon Provider: Evelia Walden Gabapentin 600 mg ckgrujDmwrujpczmdu638EJVLMtubx037Vljsoa 23rd, 2024 1:15pm December 09, 2023 4:29pmGabapentin 600 mg zrozsbEnpurwghuafk788NRQGVaklk730 December 09, 2023 4:29pmAugust 2024 1:50pmApixaban (Eliquis) 5 mg tablet Noyqyyshmhty5FBQZMrqwk ahxaf4806Vonyo2024 3:24pmJuly 2024 6:13am Gabapentin 300 mg bpekmzcSrfnrzihyxie581OGSKIvfgk rzers341652Hwuhe2024 3:24pmSeptember 2024 5:58amFreeTextSi capsule orally in the morning and in the afternoon Provider: Evelia Liang RApixaban (Eliquis) 5 mg tablet Tfugbncofkic1AGCCItsxr iduqb8304Jkbv2024 6:13amSept2024 5:58am Gabapentin 600 mg ylryvsIoynekvwhvhf426IDHGJvthg138Ditjym 11th, 2025 1:50pm December 13, 2024 2:18pmMetoprolol Tartrate 25 mg pmwjvdQdxifd75.5MGPOTwice ptqek3553Ccrczz2024 1:50pmUnknownApixaban (Eliquis) 5 mg khbvcmSoaiar4ZF POTwice knawj9672Rxwvfgnsw2024 5:58amUnknownGabapentin 300 mg capsule Jlzzon630HZMNEysmt wixgb293826Qiuohjbzx 2024 5:58amFreeTextSi capsule orally in the morning and in the afternoon Provider: Evelia Lowe Multivitamin EfvpruIszafo8JGUCSIpmzgQqdmsxld 2019 12:00amsupplementUnknown Sulfamethoxazole-Trimethoprim 400-80 mg rgrgbzBhtufryoaqih1ROPAVPaixy daily March 21, 2019 12:00amJuly 2019 5:19amutiGabapentin 400 mg capsule Wfvaaesgkvin214QQBWAmvdx at bedtimeFebruary 2019 12:00amFebruary 2023 10:56amnerve painCalcium Carbonate (Tums Extra Strength Smoothies) 300 mg (750 mg) Tablet,VvrerfcnZbuwwb5SQLMPQuqux dailyFebruary 2019 12:00am supplementUnknownCranberry Conc-Ascorbic Acid (Cranberry Plus Vitamin C) 140-100 mg IofluazDpfnuk4MXZMYOvhbkBaucfntw 2019 12:00amsupplementUnknownDocusate Sodium 100 mg huatguvJqwwnl159WMSZDsidm times dailyFebruary 2019 12:00am constipationUnknownGabapentin 100 mg tehxfsdGvlnjqrzjewu730OTJIGvmbm daily March 21, 2019 12:00amAugust 2020 8:16amnerve painVitamin B Complex- Folic Acid 400 mcg tablet extended arxqmtoGsnbxt5GJIHPDpvtdJrpegatt 2019 12:00amsupplementUnknownOmega 2-Hrt-Rbn-Fish Oil 300-1,000 mg kflpvqpZrzcqh0659 MGPODailyFebruary 2019 12:00amhyperlipidemiaUnknownBiotin 1 mg Capsule Rhzbviwowirq1JZZAGKpuowIlqpmmis 2019 12:00amMarch 2023 10:00am supplementTespo Womens Bariatric Complete Vitamin GwkezecHgkkqp1TAQWYVtmhu daily March 21, 2019 12:00amsupplementUnknownMetoprolol Tartrate 25 mg tablet Umbxsulozlwh73.5MGPOTwice dailyFebruary 2020 12:00amMarch 2023 9:58am Cholecalciferol (Vitamin D3) (Vitamin D3) 125 mcg (5,000 unit) Tablet Yodduomseazj795HKJTNCdrsjOigvxtxk 2020 12:00amMarch 2023 10:01am Sulfamethoxazole-Trimethoprim (Sulfamethoprim Ds) 800-160 mg TabletDiscontinued1 TABPOTwice dailyApril 2020 11:00pmMay 2020 7:08amNitrofurantoin Monohyd/M-Cryst 100 mg tsyzavpImawjkqwjqvq394CAEQArmxt dailyMay 2020 11:00pmAugust 2020 8:17amApixaban (Eliquis) 5 mg qbomqqKympqixakkvg3TMGR Twice dailyJuly 2019 11:00pmApril 2023 2:30pmHydrocodone-Acetaminophen (Abell) 5-325 mg plntbpRnmffonupnyo5HASRJVUCWP 4-6 HOURS as needed for vzzd1096 August 24, 2019July 2019 4:04pmEncounter for cosmetic surgery Encounter for cosmetic surgeryHydrocodone-Acetaminophen (Abell) 5-325 mg tablet Wyanbossyvnf0GKIICNDPEV 4-6 HOURS as needed for cplp8036Kfot 2019July 2019 4:04pmEncounter for cosmetic surgery Encounter for cosmetic surgeryHydrocodone-Acetaminophen (Abell) 5-325 mg tablet Kocnxmseheky2ARUTTPYFLK 4-6 HOURS as needed for ovrz2515Jbqb 2019July 2019 10:20amEncounter for cosmetic surgery Encounter for cosmetic surgeryEnoxaparin 40 mg/0.4 mL pudncfuPitwfxtjfuwe60XF SUBCUTDailyJuly 2019 11:00pmJuly 2019 10:20amAtorvastatin 40 mg IyuoblImtzlgheqopn92CVOPUvfpm egqzggf73Vdek 2019 11:00pmFebruary 2020 1:17pmHydrocodone-Acetaminophen (Abell) 5-325 mg gfvncuZdsdaynrahge8KBJFHRRXST 4-6 HOURS as needed for qurz372Scje 2019February 2020 1:17pmEncounter for cosmetic surgery Encounter for cosmetic surgeryGabapentin 300 mg ecpktazWcrrkmxswmrb343UYOGDmauo dailyAugust 2020 11:00pmFebruary 2023 10:56amSolifenacin 5 mg tablet DiscontinuedMGPOMarch 2023 11:00pmJune 2023 6:59amFreeTextSi tablets in the AM, 1 tablet in the PM Orally twice a day as directed; Note: Source Status: Taking; Provider: Evelia Liang ( )Metoprolol Tartrate 25 mg tabletDiscontinued0.5TABPOTwice dailyMarch 2023 11:00pmJun2023 7:00amFreeTextSi/2 tablet with food Orally Twice a day; Note: Source Status: Taking; Refills: 3; Provider: Evelia Liang RAcetaminophen 500 mg avmbayyRdghke2RNOWWUcrzx 6 hours[facility] 2023 11:00pmFreeTextSi capsule as needed Orally every 6 hrs; Note: Source Status: Taking; Provider: Evelia Liang ( )UnknownGabapentin 300 mg bwvcoxzXjryivpiqwba525TJZXHfjss daily April 21, 2023 11:00pmMarch 2023 1:54pmFreeTextSi capsule orally in the morning and in the afternoon Provider: Evelia Liang RBiotin 5 mg capsuleActive 1CAPPODailyWilson Health 2023 11:00pmFreeTextSi capsule Orally Once a day; Note: Source Status: Taking; Provider: Evelia Liang ( )Unknown Cholecalciferol (Vitamin D3) 50 mcg (2,000 unit) epfvheuFjfkum8TWBATVfuhbRoyuu 2023 11:00pmFreeTextSi capsule Orally Once a day; Note: Source Status: Cixzln4832 IU OTC; Provider: Evelia MorelandnMetoprolol Tartrate 25 mg tablet Vqirdmqytyvk99.5MGPOTwice dailyAtrium Health [facility] 2023 6:59amAugust 2023 1:15pm Methocarbamol 750 mg rdqjhaJohvox699SAYLIhwy 2023 11:00pmUnknown Ciprofloxacin Hcl 500 mg plwlrjLrcprl426AIEANrkmw khteu86272Jbjzlbae 5th, 2025 12:00amUnknownGabapentin 600 mg twujbiLabnvw850YEXEYticv331Nmtkfqka 5th, 2025 2:18pmUnknownPerfecto miscActive0.Wrihi07RrvoozzaDecember 13, 2024 12:00amDecreased activities of daily living (ADL) Impaired mobility Other specified health status Other reduced mobilityAs directedGabapentin 300 mg jjeuveoDqyxpaiemjvn654QROY Twice wjtoe665316Twpyq 2023 1:54pmAugust 2023 1:15pmFreeTextSi capsule orally in the morning and in the afternoon Provider: Evelia Walden Immunizations Immunization Event Date Not Given Reason Dose Number Analog Design 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 Vaccine, 23 valent December 14, 2007Quadrivalent InfluenzaOctober 2016Quadrivalent Influenza November 21, 2019Quadrivalent InfluenzaNovember 2015Quadrivalent Influenza November 21, 2021Tetanus, Diphtheria, Pertussis (Tdap)February 08, 2013 Trivalent Influenza VaccineOctober 2010Trivalent Influenza VaccineNovember 2011Trivalent Influenza VaccineOctober 2012Trivalent Influenza VaccineNovember 2013 Relevant Diagnostic Tests and/or Laboratory Data Laboratory Results Test Collection Date/Time Result Date/Time Result Interpretation Reference Range Result Comment Performing Site Corrected White Blood Count December 13, 2024 2:24pm December 13, 2024 8:27pm 8.7 10*3/uL 3.8-11.6F[facility] [id number] [address] [facility] [address]Lxdfzyvnpjf WBC CountNov2024 2:24pmNov2024 8:27pm8.7 10*3/uL3.8-11.6FVan [facility] [id number] [address] [facility] [address]Abc Blood CountNov2024 2:24pmDecember 13, 2024 8:27pm4.65 10*6/uL3.60-5.00[facility] [id number] [address] [facility] [address]GjhtmoegkfIeqdstxk 5th, 2025 2:24pmNov2024 8:27pm 14.4 g/dL11.8-15.4FVan [facility] [id number] [address] [facility] [address]27[address]XkoxviqwbnDvmekycf 5th, 2025 2:24pmDecember 13, 2024 8:27pm 44.1 %34.0-46.4F[facility] [id number] [address] [facility] 395[address]Xtvf Corpuscular VolumeNov2024 2:24pmNov2024 8:27pm94.9 sP44-540XsvrabosmAdams County [facility] [id number] [address] [facility] [address]Fupr Corpuscular HemoglobinNov2024 2:24pmNov2024 8:27pm30.9 pg24.7-34.3FVan [facility] [id number] [address] [facility] [address]Hiuk Corpuscular Hemoglobin ConcentNov2024 2:24pm December 13, 2024 8:27pm32.6 g/dL32.0-35.0[facility] [id number] [address] [facility] [address]Egs Cell Distribution WidthNov2024 2:24pmNov2024 8:27pm14.3 %11.9-15.3F[facility] [id number] [address] [facility] 17[address]Vnhrocyq CountDecember 13, 2024 2:24pmNov2024 8:31gy940 10*3/gT224-665WhzqkauwcAd[facility] [id number] [address] [facility] [address]Mpgc Platelet VolumeDecember 13, 2024 2:24pmNov2024 8:27pm8.1 fL6.3-10.7FVan [facility] [id number] [address] [facility] [address]487Hmnoclfkxvw (%) (Auto)December 13, 2024 2:24pmNov2024 8:27pm72.8 %.[facility] [id number] [address] [facility] [address]Dvsqnufyymo (%) (Auto)December 13, 2024 2:24pmNov2024 8:27pm18.8 %.[facility] [id number] [address] [facility] [address]Lpbwrqsgl (%) (Auto)December 13, 2024 2:24pmNov2024 8:27pm5.7 %.[facility] [id number] [address] [facility] [address]Lknhwnpragc (%) (Auto)December 13, 2024 2:24pmNov2024 8:27pm2.1 %.[facility] [id number] [address] [facility] [address]Ttbqmivsl (%) (Auto)December 13, 2024 2:24pmNov2024 8:27pm0.6 %.[facility] [id number] [address] [facility] [address]Iezabilzq RBC Relative Count (auto)December 13, 2024 2:24pm December 13, 2024 8:27pm0.1 /100{WBC}0-0.5F[facility] [id number] [address] [facility] [address]Hefzmduxwkk # (Auto)December 13, 2024 2:24pmNov2024 8:27pm6.3 10*3/uL1.8-7.7F[facility] [id number] [address] [facility] [address]Sqfjnubuouz # (Auto)December 13, 2024 2:24pmNov2024 8:27pm1.6 10*3/uL1.00-4.8[facility] [id number] [address] [facility] [address]Fzfltoula # (Auto)December 13, 2024 2:24pmNov2024 8:27pm0.5 10*3/uL0.0-0.8[facility] [id number] [address] [facility] [address]Kkderranabp # (Auto)December 13, 2024 2:24pmNov2024 8:27pm0.2 10*3/uL0.0-0.45[facility] [id number] [address] [facility] [address]Ywpdavtte # (Auto)December 13, 2024 2:24pmNov2024 8:27pm0.1 10*3/uL0.0-0.2FVan [facility] [id number] [address] [facility] [address]Wscukvf LevelNov2024 2:24pmNov2024 8:33pm 94 mg/hX88-766FJC recommended reference rangeRandom Glucose Reference Range is dependent on time and content of last meal. Glucose of more than 200 mg/dL in a nonstressed, ambulatory subject supports the diagnosisof Diabetes Mellitus. [facility] [id number] [address] [facility] [address]Zcoxe Urea NitrogenNov2024 2:24pmNov2024 8:33pm16 mg/dL7-25[facility] [id number] [address] [facility] [address]793MnxjnjrweiCltwxbfs 5th, 2025 2:24pmNov2024 8:33pm 1.09 mg/dL0.60-1.20[facility] [id number] [address] [facility] 36783Nipdxdhxr GFR (CKD-EPI)December 13, 2024 2:24pmNov2024 8:33pm59.995 mL/MinAdams County Regional [facility] [id number] [address] [facility] 14[address]Eepxxn LevelNovember 2024 2:24pmNovember 2024 8:33pm 141 mmol/F203-240IwkixhnviAdams County Regional [facility] [id number] [address] [facility] [address]Lqkjqjtsf LevelNovember 2024 2:24pmNovember 2024 8:33pm4.1 mmol/L3.5-5.1FVan [facility] [id number] [address] [facility] [address]Okezbjka LevelNovember 2024 2:24pmNovember 2024 8:45gw720 mmol/LAbove high uecrvu18-937EbsythlhoAd[facility] [id number] [address] [facility] [address]Tmvnzz Dioxide LevelNovember 2024 2:24pmNovember 2024 8:33pm24.6 mmol/L21.0-31.0[facility] [id number] [address] [facility] [address]Rpldh GapNov2024 2:24pmNovember 2024 8:33pm11.5 mEq/L6.0-15.0[facility] [id number] [address] [facility] [address]Jibigej LevelNovember 2024 2:24pmNovember 2024 8:33pm 9.4 mg/dL8.6-10.3F[facility] [id number] [address] [facility] 28[address]Rqogq ProteinNovember 2024 2:24pmNovember 2024 8:33pm 7.4 g/dL6.4-8.9[facility] [id number] [address] [facility] [address]AsacmtfOexmphwz 2024 2:24pmNovember 2024 8:33pm3.8 g/dL3.5-5.7FVan [facility] [id number] [address] [facility] 7[address]LafmpxvdJpmcuhui 2024 2:24pmNovember 2024 8:33pm3.6 g/dLAdams County Regional [facility] [id number] [address] [facility] [address]Txljxue/Globulin RatioNovember 2024 2:24pmNov2024 8:33pm1.1FVan [facility] [id number] [address] [facility] 20424Lpebk BilirubinNov2024 2:24pmNov2024 8:33pm0.3 mg/dL0.3-1.0[facility] [id number] [address] [facility] 264[address]Btfmvenaf Amino Transf (AST/SGOT)December 13, 2024 2:24pm December 13, 2024 8:33pm18 U/V94-99HttltywmzAdams County Regional [facility] [id number] [address] [facility] 08942Zzdhgqo Aminotransferase (ALT/SGPT)December 13, 2024 2:24pm December 13, 2024 8:33pm18 U/L7-52[facility] [id number] [address] [facility] [address]Vgtsrdvl PhosphataseNov2024 2:24pmNov2024 8:33pm55 U/V73-784QaapeexmwAdams County Regional [facility] [id number] [address] [facility] [address]Xrqngsbrxmt LevelNov2024 2:24pmNov2024 8:18ok888 mg/pJ228-343Agnb less than 200 mg/dl low riskChol 201-239 mg/dl borderline riskChol 240 mg/dl and greater high riskAdams County Regional Medical Center [facility]tr [id number] [address] [facility] [address]CBX CholesterolNov2024 2:24pmNov2024 8:33pm49 mg/vY99-44CVX CHOL ATP-III CLASSIFICATION Cardiovascular RiskHDL > or equal to 60 mg/dL LOWHDL < 40 mg/dL HIGHAdams County Regional Medical Center Ctr [id number] [address] [facility] [address]Yuqtqrjzthisp LevelNov2024 2:24pmNov2024 8:14af338 mg/dLAbove high normal0-149TRIG ATP III CLASSIFICATIONTRIG less than 150 mg/dL NormalTRIG 150-199 mg/dL Borderline highTRIG 200-500 mg/dL High TRIG greater than 500 mg/dL Very highStandard traceable to the Center for Disease Co nrtrol and Prevention (CDC) test method.[facility] [id number] [address] [facility] [address]OOF Cholesterol, CalculatedNov2024 2:24pmDecember 13, 2024 8:33pm73 mg/dL0-100LDL ATP III CLASSIFICATIONLDL less than 100 mg/dL OptimalLDL 100-129 mg/dL Near or above optimalLDL 130-159 mg/dL Borderline highLDL 160-189 mg/dL HighLDL greater than 189 mg/dL Very highAdams County [facility] [id number] [address] [facility] 15356VQOF CholesterolNov2024 2:24pmNov2024 8:33pm48 mg/dLAdams County Regional Medical [facility] [id number] [address] [facility] [address]Esslkgerjie/HDL RatioNovember 2024 2:24pmDecember 13, 2024 8:33pm3.5<5.0[facility] [id number] [address] [facility] 19462Aeqsdbc Stimulating Hormone GenDecember 13, 2024 2:24pm December 13, 2024 8:47pm1.33 u[iU]/mL0.45-5.33[facility] [id number] [address] [facility] [address]Oytrigni Creatinine Clearance (ChemNov2024 2:24pm December 13, 2024 8:33pmN/AFVan [facility]ert [facility] [id number] [address] [facility] [address] Vital Signs Vital Reading Result Reference Range Collection Date/Time Height 74 [in_i] December 13, 2024 1:50igUtvfyk705.35 kgDecember 13, 2024 1:19pmBody Wsbcndleboz891.4 [degF]97.6-99.0December 13, 2024 1:19pmHeart Rate61 /ykx23-662 December 13, 2024 1:19pmOxygen saturation by Pulse voijyqvp06 %95-100December 13, 2024 1:19pmBP Nagnwykg189 mm[Hg]100-140December 13, 2024 1:19pmBP Hdxwjvmiq67 mm[Hg]60-100Nov2024 1:19pmBMI (Body Mass Index)50.2 kg/m2 December 13, 2024 1:19pm Advance Directives Advance Directive Response Recorded Date/ Time Advance Directives No October 8:10am Insurance Providers Guarantor Luz Velazquez Address [address] [address]Contact Info.Home Phone: Coverage Status Update:December 13, 2024 Payer Group Member ID Coverage Type Subscriber Relationship to Subscriber Effective Date Expiration Date Medicaid [id number] Butz , M Id: [id number] [address] [address] Home Phone: Email: [email or web address] Medicaid [id number] Butz , M Id: [id number] [address] [address] Home Phone: Email: [email or web address] [id number] Butz , M Id: [id number] [address] [id number] Home Phone: Email: [email or web address] Nonpatient Id: [id number] Butz , M Id: [id number] [address] [id number] Home Phone: Email: [email or web address] PFFS [id number] Butz , M Id: [id number] [address] [id number] Home Phone: Email: [email or web address] PFFS [id number] Butz , M Id: [id number] [address] [facility] [address] Home Phone: Email: [email or web address] DevelopmentLECOM Health - [facility] Hospitaln[facility] Healthcare Dual Compl [id number] Butz , M Id: [id number] [address] [facility] [address] Home Phone: Email: [email or web address] DevelopmentHaven Behavioral HealthcareApplication Developments plc 2022HCAP/HFA/FAP Active 100% 08/25/22 [address] [id number] Work Phone: [phone] [id number] Butz , M Id: [id number] [address] [facility] [address] Home Phone: Email: [email or web address] DevelopmentC[facility] 2022 Encounters Encounter Location(s) Arrival/Admit Date Discharge/Departure Date Discharge/Departure Disposition Provider(s) Departed Physician/ Provider Office Visit -[facility] Family Medicine Mckenzie December 13, 2024 1:07pm December 13, 2024 2:25pm Discharged to home care or self care (routine discharge) Garth Altamirano DO Departed Clinical -Lab [place] December 13, 2024 2:17pm December 13, 2024 2:18pm Discharged to home care or self care (routine discharge) Garth Altamirano DO Recent Diagnosis Onset Date Admit Date BMI 50.0-59.9, adult Unknown December 1:07pm Chronic UTI Unknown December 13 1:07pm Decreased mobility Unknown December 13, 2024 1:07pm Lumbar radiculopathy Unknown December 1:07pm Skin breakdown Unknown December 13 1:07pm Assessments Diagnosis Onset Date Resolution Status Admit Date BMI 50.0-59.9, adult acuteNovember 2024 1:07pmChronic UTIacuteNovember 2024 1:07pmDecreased mobilityacuteNovember 2024 1:07pmLumbar radiculopathyacuteNovember 2024 1:07pmSkin breakdownacuteNovember 2024 1:07pm Plan of Treatment Author Melody Flynn [facility]Author[facility]December 13, 2024 4:17pmPatient has significant mobility deficits that impairs her ability to perform her ADLS. S/p lumbar and cervical surgeries, has chronic neuropathy and left foot drop. This mobility deficit cannot be corrected with cane or crutches. She is able to safely use a walker in her home and her functional mobility deficits can be sufficiently resolved by the use of a walker. Patient continues to use her AFO brace, walker, and also has a hover round. She denies any increase in radiculopathy symptoms but it has not gotten any better. Mild skin irritation is noted on her abdominal fold. No skin break down. Recommended she use a barrier cream and call if anything worsens. Due to diarrhea and chronic UTI , she could potentially have a urinary tract infection. Discussed and recommended to patient that we treat with Cipro, as this would target an E Coli infection. Preferably would like her to give urine sample first but she was unable to give sample today. She will go to [facility] to give sample, as they can cath her if she cannot go. Strongly encouraged patient to make dietary changes. Exercise is limited. Sooner if needed, ER if concerns. The above note was written by Melody Flynn LPN , acting as human recorder, note dictated by Dr. Garth Altamirano. Future Tests Future scheduled test information is unavailable Pending Tests Test Name Ordered Date Scheduled Date Hemoglobin A1c December 13, 2024 2:24pm Estimated Average GlucoseDecember 13, 2024 2:24pm Future Visits Future appointment information is unavailable Future Procedures Procedure Name Ordered Date Scheduled Date A1C with Estimated Average Glu December 13 2:10pm December 13, 2024 2:24pm Urine Culture December 13, 2024 1:46pm UrinalysisDecember 13, 2024 1:46pm Future Medications Future medication information is unavailable Patient Instructions Patient instructions are unavailable
--- OUTSIDE RECORDS SUMMARY | 2024-12-14 10:06 | XMS_ITS | Clinical Summary ---
Author Organization [facility] Address [address] [place] [address] Care Team Providers Care Sales Engagement Executive Name Role Phone Unavailable Primary Care Provider Unavailabl e Active Problems ProblemNoted DateDiagnosed DateParaplegia, /27/2023 Social History Tobacco UseTypesPacks/DayYears UsedDateSmoking Tobacco: Never AssessedUT Safety & EnvironmentAnswerDate RecordedFear of Current or Ex-PartnerNot on file 04/01/2023Emotionally AbusedNot on file04/01/2023hysically AbusedNot on file 04/01/2023Sexually AbusedNot on file04/01/2023hysically or Sexually AbusedNot on file04/01/2023CommentsUnknownSex and Gender InformationValueDate RecordedSex Assigned at BirthNot on fileLegal YxjVhmgmt59/29/2022 11:35 PM EDT Gender IdentityNot on fileSexual OrientationNot on file Last Filed Vital Signs Vital SignReadingTime TakenCommentsBlood Scjougyf426/67003/25/2020 8:42 AM EST Fxfkx370003/25/2020 8:42 AM ZAKAbsvnycdexb31.5 ??C (97.7 ??F)01/29/2020 9:17 AM ESTRespiratory Rate--Oxygen Saturation--Inhaled Oxygen Concentration--Szemml401 kg (276 lb)03/25/2020 8:41 AM WRFKrnxnl321 cm (6' 2 )03/25/2020 8:41 AM ESTBody Mass Index35.44003/25/2020 8:41 AM EST Plan of Treatment Health MaintenanceDue DateLast DoneCommentsCT Yvftddloqpic03/19/1970Colonoscopy 1969Colorectal Cancer Lutmlrahl16/19/1970FIT-DNA1969FIT1969 FOBT1969Medicare Annual Wellness (AWV)1969 5918Jwkcsihcyrrez07/19/1970 Depression Mhaipjqlo34/19/1982Hepatitis B Vaccines (1 of 3 - 19+ 3-dose series) 1988Pap Smear1990Cervical Cancer Qfimrangb69/19/2000HPV/Cotest 07/28/19997055Sincbguvh17/19/2010Zoster Vaccines (1 of 2)07/28/2019Adult Tetanus /02/2013COVID-19 Vaccine (2 - season) Influenza Vaccine (#1)/, 11/21/2019, 11/09/2019, Additional history existsPneumococcal Vaccine: Pediatrics (0 to 5 Years) and At-Risk Patients (6 to 64 Years)Aged Out12/14/2007No longer eligible based on patient's age to complete this topicHIB VaccinesAged OutNo longer eligible based on patient's age to complete this topicHPV VaccinesAged OutNo longer eligible based on patient's age to complete this topicIPV VaccinesAged OutNo longer eligible based on patient's age to complete this topicMeningococcal B VaccineAged OutNo longer eligible based on patient's age to complete this topicMeningococcal VaccineAged OutNo longer eligible based on patient's age to complete this topic Rotavirus VaccinesAged OutNo longer eligible based on patient's age to complete this topic Insurance * Guarantor: Lenora Fletcher TypeRelation to PatientDate of BirthPhoneBilling AddressPersonal/SvfzksFulx39/[birth year]/[id number] [address]
--- OUTSIDE RECORDS SUMMARY | 2024-12-14 10:06 | XMS_ITS | Clinical Summary ---
Author Organization [facility] Address [address] [place] [address] Care Team Providers Care Associate Pastor Name Role Phone Unallocated, [facility] Provider Primary Care Provi kenneth Social History Tobacco UseTypesPacks/DayYears UsedDateSmoking Tobacco: Never Assessed CommentsUnknownSex and Gender InformationValueDate RecordedSex Assigned at Not on fileLegal McmVvomsh77/15/2023 7:14 PM EDTGender IdentityNot on fileSexual OrientationNot on file Plan of Treatment Health MaintenanceDue DateLast DoneCommentsCT Mwoopvzhqwfq66/19/1970Colonoscopy 1969Colorectal Cancer Slbtjehke74/19/1970FIT-DNA1969FIT1969 FOBT1969Medicare Annual Wellness (AWV)1969 5018Pczwnypiotovl55/19/1970Pap Smear1990Cervical Cancer Hlnydirqp61/19/2000HPV/Ykmtit0407/28/1999Mammogram 2009COVID-19 Vaccine ( season)2024Influenza Vaccine (#1) , 11/13/2018, 11/12/2016, Additional history exists Pneumococcal Vaccine: Pediatrics (0 to 5 Years) and At-Risk Patients (6 to 64 Years)Aged OutNo longer eligible based on patient's age to complete this topic Insurance * Guarantor: Carrie Fletchercount TypeRelation to PatientDate of BirthPhone Billing AddressPersonal/OaekdfLkpi13/[birth year][id number] [address] Care Teams Team MemberRelationshipSpecialtyStart DateEnd Date Unallocated, [facility], [address] [place] [address] PCP - GeneralFamily Ehknbjzk26/18/24
--- OUTSIDE RECORDS SUMMARY | 2024-12-14 10:06 | XMS_ITS | Patient Health Record ---
Author Organization [facility] Address [address] [place], [place] [id number] [place], [place] [id number] Care Team Providers Care School Speech Language Pathologist Name Role Phone Camacho Trent DODGE Primary Care Provider Stone Shanks MD Steven Unavailable [phone] Reason For Referral No Information Plan Of Treatment No Information Insurance Providers Payer Name Payer Address Payer Phone Subscriber Number Group Number Insured Name Patient Relationship to Insured Coverage Start Date Coverage End Date [facility] [address] [place] [id number] Sharri Fletcher - patient is the insured
--- OUTSIDE RECORDS SUMMARY | 2024-12-14 10:06 | XMS_ITS | Clinical Summary ---
Author Organization [facility] Address [address] [facility] [place] [address] Care Team Providers Care Satellite Dish Installer Name Role Phone Unavailable Primary Care Provider Unavailabl e Source Comments The following information is NOT included in Care Everywhere downloads:Psychiatric notes, ECG results, Cardiac Rehab notes, Pulmonary Function notes, data from SmartForms (includes but not limited toPregnancy data,audiograms, eye exams, pre-surgical evaluation notes, well-child exam data).[facility] Immunizations ImmunizationAdministration DatesNext DueInfluenza, injectable, quadrivalent, preservative (LEI=671)11/21/2019,11/13/2018,11/12/2016Influenza, injectable, quadrivalent, preservative free (HDK=976)12/18/2015Influenza, injectable, trivalent, preservative (NVA=635)12/21/2013,11/30/2012,12/23/2011,11/25/2010 Influenza, novel E0P0-53, injectable, preservative-free (BFO=123)02/27/2009 Influenza, whole virus (CVX=16)12/13/2007Pneumococcal polysaccharide 23 Valent (PPSV23) (CVX=33)12/14/2007Tdap (TWX=957)02/08/2013 Social History Tobacco UseTypesPacks/DayYears UsedDateSmoking Tobacco: Never Assessed CommentsUnknownSex and Gender InformationValueDate RecordedSex Assigned at Not on fileLegal LrjPcdfem64/28/2020 8:31 PM EDTGender IdentityNot on fileSexual OrientationNot on file Plan of Treatment Health MaintenanceDue DateLast BfirMckrtdljEnudoyheojn92/19/1970HIV Test 1984Hepatitis C Ecrtwmoa32/19/1988Hepatitis A (HAV) Vaccine (optional start 19+ years)1988Hepatitis B (HBV) Vaccine (1 of 3 - 19+ 3-dose series) 1988Pap Smear07/27/19900148Iunjnyfepna58/19/2010CRC Dmrlyscqu19/19/2015 Iaffqqvogwx96/19/2015Cologuard (Stool DNA)2014FIT2014Pneumococcal Vaccine(s) (50+ yrs) (2 of 2 - PCV)/06/2007Shingles (RZV) Vaccine (1 of 2)07/28/2019Annual Wellness Visit (G0438)08/09/2019Tetanus (Td or Tdap) Tzzoqxq44/01/74473402/08/2013COVID-19 Vaccine (2024- season)2024 01/22/2021, 05/25/2020, 04/27/2020Influenza Vaccine (#1)/, 11/13/2018, 11/12/2016, Additional history existsTdap KlxormaZdvaktbpj27/01/2014 Insurance
--- OUTSIDE RECORDS SUMMARY | 2024-12-14 10:07 | XMS_ITS | Continuity of Care Document ---
Author Organization [facility] Address [address], [address] [place] [address] Care Team Providers Care Retail Representative Name Role Phone Jean-PierreanaGarth DO Primary Care Provider [phone] Encounters DateTypeDepartmentCare VxleFksbowqrjoa73/27/2024bstract [place] [facility] - [place] [address] [place], [place] [address] [place] [address] Sara Aburto MD 06/24/2023Telephone [facility] Invasive B[facility]ric [facility]urg [address] [facility] [address] [place], [place] [phone] Trent Camacho DO Annual post op /05/2023 2:18 PM EDT - 07/15/2022 11:59 PM EDT Hospital Encounter [facility] CT Scan [address] [place], [place] [id number] Spinal stenosis, cervical region Discharge Disposition: Home or Self Care07/08/2022Orders Only [facility] CT Scan [address] [place] [address] [phone] Suzie Lara APRN - MERLYN 06/30/2022Transcribe Orders [facility] Pre Access [address] [place] [address] [phone] Suzie Lara APRN - MERLYN Spinal stenosis in cervical region (Primary Dx)05/18/2022 2:41 PM EDT - 05/20/2022 11:59 PM EDTHospital Encounter [facility] MRI [address] [place] [address] Cervical myelopathy (HCC) Discharge Disposition: Home or Self Care05/04/2022Transcribe Orders [facility] Pre Access [address] [place] [address] Eliezer Antonio DO Cervical myelopathy (HCC) (Primary Dx)2Orders Only [facility] [address] [facility] [address] [place] [address] Provider, MD Adela 05/07/2020Orders Only [facility] [address] [place] [address] Shirley Bill MA Status post bariatric rnzdpuo0804/03/20206619Lgtfge43/24/2021 9:00 AM ESTOffice Visit [facility] [address] [place] [address] Trent Camacho DO Gastroesophageal reflux disease without esophagitis (Primary Dx); Status post bariatric zxgyaqz5010/27/2019Orders Only [facility] [address] [place] [address] Provider, MD Adela 04/20/2019Telephone [address] - Ground Floor, [address] [place] [address] Naye Zaidi, DO Other (address progress note in media)04/13/2019[facility] [address] [place] [address] Trent Camacho DO Other (Diarrhea )02/23/2019 9:30 AM ESTOffice Visit [facility] [address] [place] [address] Trent Camacho DO Gastroesophageal reflux disease without esophagitis (Primary Dx); S/P bariatric [id number]/28/2018 9:51 AM EST - 12/30/2018 11:59 PM ESTHospital Encounter [facility] Radiology [address] [place] [address] S/P cervical spinal fusion; 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) Discharge Disposition: Home or Self Care12/28/2018 9:48 AM EST - 12/30/2018 11:59 PM ESTHospital Encounter [facility] Radiology [address] [place] [address] Discharge Disposition: Home or Self Care12/28/2018 11:10 AM ESTOffice Visit [facility] [address] [facility] [address] - Ground Floor, [address] [place] [address] Naye Zaidi DO 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 Invasive Bariatric Surg [address] [place] [address] Trent Camacho DO Other (other)09/12/2018 10:30 AM EDTOffice Visit [place] [address] [facility] [address] - Ground Floor, [address] [place] [address] Gena Qureshi PA S/P cervical spinal fusion (Primary Dx); 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)09/03/2018 1:05 AM EDT - 09/06/2018 10:45 PM EDTHospital Encounter [facility] Car 3- [facility] [address] [place] [address] Cal Ham MD Sauber, MD Tal Marroquin Rawan, MD Jamal, MD Fidel Other acute pulmonary embolism without acute cor pulmonale (HCC) (Primary Dx) Discharge Disposition: Assisted Yffveley23/27/0752Cnifrh85/26/2019Direct Admit Orders [facility] INT MED [address] [place] [address] Guerita Cabrera, CAGE CLERK - BANANA LOADER 09/02/2018Telephone [facility] [address] [facility] [address] - Ground Floor, [address] [place] [address] Naye Zaidi DO Other (discharge orders )09/01/2018Telephone [facility] [address] [facility] [address] - Ground Floor, [address] [place] [address] Naye Zaidi DO Nutrition Bfxevocghc67/23/2019 6:01 AM EDT - 08/31/2018 6:30 PM EDTHospital Encounter [facility] 5C Stepdown [address] [place] [address] Naye Zaidi DO H/O cervical spine surgery (Primary Dx) Discharge Disposition: Assisted Zeaawkux19/23/2019 8:32 AM EDTAnesthesia Event [facility] OR [facility] [place] [address] Aryan Ortiz MD 08/30/2018 8:30 AM EDT - 08/30/2018 11:[address] OR [address] [place] [address] Naye Zaidi DO ANTERIOR CERVICAL DISCECTOMY WITH FUSION C4, C5, (SYNTHES, SUPINE, C-ARM, EVOKES CONF# [id number] - [facility])08/26/2018 2:[address] [facility] Invasive Bariatric Surg [address] [place] [address] Trent Camacho DO Obstructive sleep apnea (Primary Dx); Status post bariatric lxkrwbd4208/01/2018Telephone 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) (Primary Dx); Chronic incomplete quadriplegia (HCC)07/14/2018 12:05 PM EDT - 07/16/2018 11:59 PM EDTHospital Encounter [facility] [address] [place] [address] Chronic incomplete quadriplegia (HCC) Discharge Disposition: Home or Self Care07/06/2018 10:20 AM EDTOffice Visit [facility] Neurology Specialist [address] [facility] [address] [place] [address] Elvin Reagan MD Lumbar radiculopathy (Primary Dx)06/29/2018 9:30 AM EDTOffice Visit [facility] [address] [facility] [address] - Ground Floor, [address] [place] [address] Naye Zaidi DO Chronic incomplete quadriplegia (HCC) (Primary Dx)06/21/2018 8:40 AM EDTOffice Visit [facility] Neurology Specialist [address] [facility] [address] [place] [address] Elvin Reagan MD Spinal stenosis of lumbar region, unspecified whether neurogenic claudication present; Weakness of both lower limbs06/01/2018 9:31 AM EDT - 06/03/2018 11:59 PM EDT Hospital Encounter [facility] MRI [address] [place] [address] Spinal stenosis of lumbar region, unspecified whether neurogenic claudication present; Weakness of both lower limbs Discharge Disposition: Home or Self Care05/31/2018 11:00 AM EDTOffice Visit [facility] [address] [facility] [address] [place] [address] Kate Dixon, CAGE CLERK - BANANA LOADER JOLANTA (obstructive sleep apnea) (Primary Dx); Lymphedema; Status post laparoscopic sleeve gastrectomy; Chronic midline low back pain with bilateral sciatica; Obesity (BMI 30-39.9)05/24/2018Telephone [facility] Neurology Specialist [address] [facility] [address] [place] [address] Elvin Reagan MD Results (on MRI lumbar spine/ hydronephrosis)05/24/2018 10:00 AM EDTOffice Visit [facility] Neurology Specialist [address] [facility] [address] [place] [address] Elvin Reagan MD Lumbar radiculitis (Primary Dx)05/10/2018 11:59 AM EDT - 05/12/2018 11:59 PM EDT Hospital Encounter [address] [address] Spinal stenosis of lumbar region, unspecified whether neurogenic claudication present; Weakness of both lower limbs Discharge Disposition: Home or Self Care04/26/2018 2:00 PM EDTOffice Visit [facility] Neurosurgery [facility] [address] [facility] [address] - Ground Floor, [address] [place] [address] Gena Qureshi PA Spinal stenosis of lumbar region, unspecified whether neurogenic claudication present (Primary Dx); Weakness of both lower limbs03/24/2018Telephone [facility] Min Invasive Bariatric Surg [address] [facility] [address] [place] [address] Trent Camacho DO Medication Problem (d/c lovenox )03/15/2018 9:40 AM ESTOffice Visit [facility] Neurology Specialist [address] [facility] [address] [place] [address] Elvin Reagan MD Lumbar radiculopathy (Primary Dx)03/10/2018Orders Only [facility] [address] [facility] [address] [place] [address] Kate Dixon, CAGE CLERK - BANANA LOADER JOLANTA (obstructive sleep apnea); Status post laparoscopic sleeve gastrectomy; Chronic midline low back pain with sciatica, sciatica laterality unspecified; Lumbosacral radiculopathy; High triglycerides; Lymphedema; Hepatic steatosis; Morbid obesity with body mass index (BMI) of 40.0 to 49.9 (HCC)03/08/2018 11:00 AM ESTOffice Visit [facility] Management [place] [address] [facility] [address] [place] [address] Kate Dixon APRN - CNP JOLANTA (obstructive sleep apnea) (Primary Dx); Hepatic steatosis; Chronic midline low back pain with sciatica, sciatica laterality unspecified; Status post laparoscopic sleeve gastrectomy; Lymphedema; Obesity (BMI 30-39.9)12/01/2017Telephone [facility] Neurology Specialist [address] [facility] [address] [place] [address] Elvin Reagan MD Other11/11/2017 12:20 PM EDTOffice Visit [facility] Neurology Specialist [address] [facility] [address] [place] [address] Elvin Reagan MD Weakness of both lower extremities (Primary Dx)10/25/2017Orders Only [facility] Invasive Bariatric Surg [address] [facility] [address] [place] [address] Shirley Bill MA JOLANTA (obstructive sleep apnea); Status post laparoscopic sleeve gastrectomy; Chronic midline low back pain with sciatica, sciatica laterality unspecified; Lumbosacral radiculopathy; High triglycerides; Lymphedema; Hepatic steatosis; Morbid obesity with body mass index (BMI) of 40.0 to 49.9 (HCC); Obstructive sleep apnea; Status post bariatric xqzalwr4710/25/2017 9:30 AM EDTOffice Visit [facility] [address] [facility] [address] [place] [address] Kate Dixon APRN - CNP JOLANTA (obstructive sleep apnea) (Primary Dx); Status post laparoscopic sleeve gastrectomy; Chronic midline low back pain with sciatica, sciatica laterality unspecified; Lumbosacral radiculopathy; High triglycerides; Lymphedema; Hepatic steatosis; Morbid obesity with body mass index (BMI) of 40.0 to 49.9 ([facility])09/28/2017Orders Only [facility] 2C Ortho/Med Surg [address] [place] [address] Sharmin Burden, CAGE CLERK - BANANA LOADER Chronic midline low back pain with sciatica, sciatica laterality unspecified; Lumbosacral radiculopathy; Numbness of right foot09/27/2017 11:00 AM EDTOffice Visit [facility] Neurology Specialist [address] [place] [address] [address] [place] [address] Elvin Reagan MD Lumbar spondylolysis (Primary Dx)09/10/2017 9:10 AM EDTOffice Visit [address] [place] [address] Ronn Little MD Urinary retention (Primary Dx)08/19/2017 2:[address] [facility] Invasive Bariatric Surg [address] [place] [address] Trent Camacho DO Obstructive sleep apnea (Primary Dx); Status post bariatric yaeiqmz9308/16/2017 2:40 PM EDTOffice Visit [facility] Neurology Specialist [address] [place] [address] [address] [place] [address] Elvin Reagan MD Numbness (Primary Dx)08/06/2017 8:40 AM EDTOffice Visit [address] [place] [address] Schuyler Avina MD Urinary retention (Primary Dx); Acute cystitis without bekhcvupu39/31/2018 11:15 AM EDTOffice Visit [facility] [address] [place] [address] Trent Camacho DO Status post bariatric surgery (Primary Dx)07/01/2017Telephone [facility] [address] [place] [address] Kirsty Alicia RN Other (question from care center)06/25/2017Telephone [facility] [address] [place] [address] Kirsty Alicia RN Other (routine post op call)06/21/2017 7:10 AM EDT - 06/24/2017 10:30 PM EDT Hospital Encounter [facility] Ortho/Med Surg [address] [place] [address] Trent Camacho DO Status post laparoscopic sleeve gastrectomy (Primary Dx); Chronic midline low back pain with sciatica, sciatica laterality unspecified; Lumbosacral radiculopathy; Numbness of right foot Discharge Disposition: Assisted Dtjcwztc02/14/2018 9:50 AM EDT - 06/21/2017 12:00 PM EDTSurgery ST[facility] OR [address] [place] [address] Trent Camacho DO XI ROBOTIC GASTRECTOMY SLEEVE LAPAROSCOPIC, LIVER BIOPSY, EGD - GI UNIT SCHEDULED.06/21/2017 9:51 AM EDTAnesthesia Event [facility] OR [address] [place] [address] Miya Graham MD Waldman, Brian A, CAGE CLERK - CREDIT CARD CONTROL CLERK 05/20/2017Telephone [facility] [address] [place] [address] Trent Camacho DO Surgery Scheduling (reschedule bariatric surgery )05/20/2017 3:00 PM EDTOffice Visit [facility] [address] [place] [address] Trent Camacho DO Obstructive sleep apnea (Primary Dx); Gastroesophageal reflux disease without esophagitis; Morbid obesity (HCC)05/11/2017 11:30 AM EDTNurse Only [facility] [address] [place] [address] 05/06/2017 1:47 PM EDT - 05/10/2017 11:59 PM EDTHospital Encounter [facility] Pre-Admit Testing [address] [place] [address] Discharge Disposition: Home or Self Care05/06/2017 2:38 PM EDT - 05/08/2017 11:59 PM EDTHospital Encounter [facility] Radiology [address] [place] [address] Discharge Disposition: Home or Self Care04/21/2017Telephone [facility] Min Invasive Bariatric Surg [address] [place] [address] Trent Camacho DO Other (insurance denial)03/17/2017Telephone [facility] Min Invasive Bariatric Surg [address] [place] [address] Trent Camacho, Other (Submitted to insurance [facility])03/12/2017 11:30 AM ESTOffice Visit [facility] [address] [facility] [address] [place] [address] Kate Dixon, CAGE CLERK - BANANA LOADER JOLANTA (obstructive sleep apnea) (Primary Dx); High triglycerides; Lymphedema; Gastroesophageal reflux disease without esophagitis; Duodenal qywatqinudto54/10/2018 3:15 PM ESTOffice Visit [facility], [facility] [address] [facility] [address] [place] [address] Fidel Guerrero MD JOLANTA on CPAP (Primary Dx)02/17/2017 12:00 PM ESTOffice Visit [facility] Bariatric [address] [place] [address] Unruly Pleitez MD JOLANTA (obstructive sleep apnea) (Primary Dx); Lymphedema; High iunmejvhmedau36/13/2017 1:30 PM ESTOffice Visit [facility] Bariatric [address] [place], [place] [address] Trent Camacho DO Obstructive sleep apnea (Primary Dx); Morbid obesity (HCC)12/16/2016 1:15 PM ESTOffice Visit [address] [place], [place] [address] Unruly Pleitez MD JOLANTA (obstructive sleep apnea) (Primary Dx); Lymphedema; Gastroesophageal reflux disease without yzvwfwnmpwb60/11/2017 12:15 PM EDTOffice Visit [address] [place] [address] Unruly Pleitez MD JOLANTA (obstructive sleep apnea) (Primary Dx); Lymphedema; Gastroesophageal reflux disease without gwtcqhdevhk08/09/2017 9:24 AM EDT Anesthesia Event [facility] [address] [place] [address] Rory Delong MD 11/16/2016 8:30 AM EDT - 11/16/2016 9:00 AM EDTSurgery [facility] Endoscopy [address] [place] [address] Carlton Guerra, EGD YRYTQD7511/16/2016 8:01 AM EDT - 11/16/2016 11:15 AM EDTHospital Encounter [facility] [address] [place] [address] Carlton Guerra DO Discharge Disposition: Home or Self Care10/21/2016 2:00 PM EDTOffice Visit [address] [facility] [place] [address] Trent Camacho DO Obstructive sleep apnea (Primary Dx); Morbid obesity due to excess calories (HCC)10/07/2016 1:30 PM EDTOffice Visit [facility] [address] [place] [address] [address] [place] [address] Fidel Guerrero MD JOLANTA (obstructive sleep apnea) (Primary Dx); Pre-op [id number]/07/2016 2:15 PM EDTOffice Visit [facility] [address] [facility] [address] [place] [address] Fidel Guerrero MD JOLANTA (obstructive sleep apnea) (Primary Dx); Morbid obesity with body mass index (BMI) of 60.0 to 69.9 in adult (HCC) 09/17/2016Telephone [facility] Invasive Bariatric Surg [address] [place] [address], LD Other (review of nutrition goals)09/16/2016 2:45 PM EDTOffice Visit [facility] Bariatric [address] [place] [address] Trent Camacho DO Obstructive sleep apnea (Primary Dx); Congenital duplication cyst of esophagus; Morbid obesity due to excess calories ([facility])09/10/2016Orders Only [facility] Invasive Bariatric Surg [address] [facility] [address] [place] [address] Shirley Bill MA Gastroesophageal reflux disease without esophagitis; Snoring; Primary osteoarthritis involving multiple joints; Morbid obesity due to excess calories ([facility])08/19/2016 1:30 PM EDTOffice Visit [address] [place] [address] Unruly Pleitez MD JOLANTA (obstructive sleep apnea) (Primary Dx); Lymphedema; Duodenal diverticulum; Gastroesophageal reflux disease without esophagitis; Morbid obesity with BMI of 60.0-69.9, adult ([facility])08/12/2016 8:01 AM EDT Anesthesia Event [facility] OR [address] [place] [address] Mary Welch MD 08/12/2016 7:30 AM EDT - 08/12/2016 9:00 AM EDTSurgery [facility] OR [address] [place] [address] Steven Shanks MD ENDOSCOPIC ULTRASOUND WITH PATHOLOGY (PATHOLOGY AVAIJANN CHESTER) - GI OWWIWNTLQ90/05/2017 6:14 AM EDT - 08/12/2016 9:52 AM EDTHospital Encounter [facility] OR [address] [place] [address] Steven Shanks MD Discharge Disposition: Home or Self Care08/05/2016 3:15 PM EDTOffice Visit [facility] [address] [facility] [address] [place] [address] Kate Dixon, CAGE CLERK - BANANA LOADER Gastroesophageal reflux disease without esophagitis (Primary Dx); Esophageal mass; Morbid obesity with BMI of 60.0-69.9, adult (HCC); JOLANTA (obstructive sleep apnea); Numbness of right foot; Lymphedema; Duodenal diverticulum; High ktezxnwmnriio57/28/2017 5:30 PM EDTNurse Only [facility] [address] [place] [address] 07/31/2016 6:44 PM EDT - 07/31/2016 11:59 PM EDTHospital Encounter [facility] Sleep [address] [address] Discharge Disposition: Home or Self Care07/25/2016 7:05 PM EDT - 07/25/2016 11:59 PM EDTHospital Encounter [address] [address] Discharge Disposition: Home or Self Care07/23/2016Orders Only [facility] [place] [address] [facility] [address] [place] [address] Trent Camacho DO Esophageal mass (Primary Dx)07/22/2016 5:30 PM EDTNurse Only [facility] [address] [place] [address] Morbid obesity due to excess calories (HCC) (Primary Dx)07/21/2016Orders Only [facility] [address] [place] [address] Trent Camacho DO Gastroesophageal reflux disease without esophagitis; Snoring; Primary osteoarthritis involving multiple joints; Morbid obesity due to excess calories (HCC)07/17/2016 8:42 AM EDT - 07/17/2016 11:59 PM EDTHospital Encounter [facility] Radiology [address] [place], [place] [address] Radiologist, [facility] Gastroesophageal reflux disease without esophagitis; Morbid obesity due to excess calories (HCC) Discharge Disposition: Home or Self Care07/10/2016 10:33 AM EDTAnesthesia Event [facility] Endoscopy [address] [place] [address] Stanley Tijerina MD 07/10/2016 9:50 AM EDT - 07/10/2016 10:10 AM EDTSurgery [facility] Endoscopy [address] [place] [address] Trent Camacho DO EGD LABEVD8707/10/2016 8:20 AM EDT - 07/10/2016 12:15 PM EDTHospital Encounter [facility] [address] [place] [address] Trent Camacho DO Discharge Disposition: Home or Self Care07/08/2016 12:30 PM EDTNurse Only [facility] [address] [place] [address] 07/02/2016 8:30 AM EDTOffice Visit [facility] [address] [place] [address] Trent Camacho DO Gastroesophageal reflux disease without esophagitis (Primary Dx); Snoring; Primary osteoarthritis involving multiple joints; Morbid obesity due to excess calories (HCC)06/10/2016Telephone [facility] [address] [place] [address] Trent Camacho DO Other (online surgical seminar- can schedule ADMINISTRATIVE OFFICE MANAGER appt) Allergies No known active allergies Medications MedicationSigDispense QuantityRefillsLast FilledStart DateEnd DateStatus b complex vitamins capsule Take 1 capsule by mouth dailyActive gabapentin (NEURONTIN) 400 MG capsule Indications:pt. states taking 200 mg AM; 200 in afternoon; 400mg at nightTake 400 mg by mouth every evening. Indications: pt. states taking 200 mg AM; 200 in afternoon; 400mg at night04/19/2018Active [place]-3 Fatty Acids (FISH OIL) 1000 MG CAPS Take 1,000 mg by mouth daily LAST DOSE 08/16/2018Active calcium carbonate (TUMS E-X 750) 750 MG chewable tablet Take 1 tablet by mouth 2 times dailyActive Multiple Vitamin (MVI, BARIATRIC ADVANTAGE MULTI-FORMULA, CHEW TAB) Take 1 tablet by mouthActive acetaminophen (TYLENOL) 500 MG tablet Take 2 tablets by mouth every 6 hours as needed for Pain 60 tablet 08/31/2018Active docusate sodium (COLACE, DULCOLAX) 100 MG CAPS Take 100 mg by mouth 2 times daily 30 capsule 08/31/2018Active apixaban (ELIQUIS) 5 MG TABS tablet Take 1 tablet by mouth 2 times daily 60 tablet 5009/13/2018Active gabapentin (NEURONTIN) 100 MG capsule Take 200 mg by mouth 2 times daily. Give 2 capsules BID for neuropathyActive Cranberry 400 MG TABS Take 1 tablet by mouth 2 times daily For urineActive metoprolol tartrate (LOPRESSOR) 25 MG tablet Take 12.5 mg by mouth 2 times dailyActive Active Problems Patient Care Coordination No te Formatting of this note is d ifferent from the original. Post -op Bariatric Summary Procedure: Xochilt carrillo Surgeon: Dr. Camacho HT: 6'2 ?? Date Weight Labs Ordered Labs Resulted Notes Initial Wt 07-02-16 501 ?? Day of Surgery 06-21-16 459 ?? 1 Wk Post-op ??07-08-17 396 ? Weighed at [facility] 5 Wk Post-op 08-19-17 363 Y ?? Weighed [facility] 3 Mon Post-op 10/25/17?? 342lb y 10-11-[address] dent 6 Mon Post-op ? 9 Mon Post-op ??05/31/18 ??287 y ? 1 Year Post-op ??08/26/18 280? Annual ? Starting at 1 Wk Post-op: Bariatric Multivitamin with iron and Calcium Citrate ProblemNoted DateDiagnosed DatePulmonary embolism on right09/03/2018 Overview (11/08/2024): Replacing diagnoses that were inactivated after the 11/08 regulatory import H/O cervical spine jfiaeiz9908/30/2018Obesity (BMI 30-39.9)03/08/2018Status post laparoscopic sleeve hkltqgsxlup22/14/2018OSA (obstructive sleep apnea)08/05/2016 Numbness of right foot08/05/20162819Fyyayxzgoo52/28/2017Duodenal diverticulum 08/05/2016High zeugzxfcrmxum02/28/2017Esophageal massChronic midline low back pain with sciaticaLumbosacral radiculopathyHepatic steatosisAnxiety and depressionPericardial effusion Resolved Problems ProblemNoted DateDiagnosed DateResolved DateMorbid obesity with body mass index (BMI) of 40.0 to 49.90Gastroesophageal reflux disease without ujwbtfgmvkj99/17/2018 Immunizations ImmunizationAdministration DatesNext DueTDaP, ADACEL (age 10y-64y), BOOSTRIX (age 10y+), IM, 0.5mL02/08/2013 Family History Medical HistoryRelationNameCommentsHigh Blood PressureBrother 1JONHigh CholesterolBrother 1JONCancerFatherLIVERHeart DiseaseMaternal Grandfather DiabetesMaternal GrandmotherCancerMaternal UncleDiabetesMaternal UncleHeart DiseaseMotherHigh Blood PressureMotherHigh CholesterolMotherOtherMotherPACEMAKER DiabetesPaternal GrandfatherRelationNameStatusCommentsBrother 1JONAliveBrother 2 ALLENAliveBrother 3BENAliveFatherDeceasedMaternal GrandfatherDeceasedMaternal GrandmotherDeceasedMaternal UncleMotherAlivePaternal GrandfatherDeceasedPaternal GrandmotherDeceased Social History Tobacco UseTypesPacks/DayYears UsedDateSmoking Tobacco: Never AssessedSex and Gender InformationValueDate RecordedSex Assigned at BirthNot on fileLegal Sex Lwugzk5303/20/2012 6:41 PM ESTGender IdentityNot on fileSexual OrientationNot on file Last Filed Vital Signs Vital SignReadingTime TakenCommentsBlood Pgbjecsj749/72004/03/2020 8:39 AM EST Pejhv372502/23/2019 9:11 AM AYOPocrkmyiqkc76.9 ??C (96.6 ??F)04/03/2020 8:39 AM ESTRespiratory Trhx676802/23/2019 9:11 AM ESTOxygen Wmmyezceib13%12/28/2018 11:23 AM ESTInhaled Oxygen Concentration--Qyqvmw833.9 kg (271 lb)04/03/2020 8:39 AM RFCLkclbj381 cm (6' 2 )04/03/2020 8:39 AM ESTBody Mass Index34.7904/03/2020 8:39 AM EST Plan of Treatment Not on file Medical Devices ImplantedTypeAreaManufacturerDevice IdentifierShelf Expiration DateModel / Serial / LotTims-Putty Progenix Plus 1cc Implanted:Qty: 1 on 08/30/2018 [facility]/Human/SynthN/A: Spine CervicalMEDTRONIC USA INC-PMM 02/28/[id number] / / [id number] Stapler 45 Bl Davinci Xi Implanted:Qty: 1 on 06/21/2017 by Trent Camacho DO at [facility] SURGICAL INC-[id number] / / Reload Stapler 45 Bl Davinci Xi Implanted:Qty: 1 on 06/21/2017 by Trent Camacho DO at [facility] SURGICAL INC-[id number] / / Reload Stapler 45 Bl Davinci Xi Implanted:Qty: 1 on 06/21/2017 by Trent Camacho DO at [facility] SURGICAL INC-[id number] / / Reload Stapler 45 Bl Davinci Xi Implanted:Qty: 1 on 06/21/2017 [facility]-[id number] / / Reload [place] Blk 60mm Implanted:Qty: 1 on 06/21/2017 [facility] DEPUY ORTHOPAEDICS-[id number] / / Reload [place] Blk 60mm Implanted:Qty: 1 on 06/21/2017 [facility] DEPUY ORTHOPAEDICS-[id number] / / Screw Cerv [place] Selftap Ti 16mm Implanted:Qty: 4 on 08/30/2018 [facility]/A: Spine CervicalJN[place]: DEPUY ORTHOPAEDICS-[id number] / / Impl Spine Cage Spacr Bengal Lg 7deg 6mm Implanted:Qty: 1 on 08/30/2018 by Naye Zaidi DO at [facility] [place]/A: Spine CervicalJN[place]: DEPUY ORTHOPAEDICS-[id number] / / Plate Cerv Ant Ti 12mm Implanted:Qty: 1 on 08/30/2018 by Naye Zaidi DO at [facility] [place]/A: Spine CervicalJN[place]: DEPUY ORTHOPAED[employer]-[id number] / / Procedures Procedure NamePriorityDate/TimeAssociated DiagnosisCommentsCT CERVICAL SPINE WO CUVTMNYZNtgkypy65/05/2023 2:32 PM EDT Spinal stenosis, cervical region MRI CERVICAL SPINE WO TYVHRTAOAujallp63/10/2023 3:26 PM EDT Cervical myelopathy (HCC) KFVOMLMsapbam97/08/2022 IHHOZDPOHxsdrsq39/08/2022 VITAMIN D 1,25 UTAOUXSKALruilmv41/08/2022 VITAMIN K00Uioxfqh49/08/2022 CBC WITH AUTO LKYNDNONMZJIOwfnaeh76/08/2022 TSH REFLEX TO FT4, R1Wldtjhz07/08/2022 LIPID IOSONCvlwuyq02/08/2022 COMPREHENSIVE METABOLIC YSJQSDqppeva73/08/2022 HEMOGLOBIN G2AUqtboqu79/08/2022 VITAMIN J7Lwdcbls12/18/2021 Status post bariatric surgery CYUOQqtlzso09/18/2021 Status post bariatric surgery VITAMIN UXhulqxd25/18/2021 Status post bariatric surgery PTH, FZDAWBCejhwae18/18/2021 Status post bariatric surgery HEMOGLOBIN D5BDzndjjp01/18/2021 Status post bariatric surgery VITAMIN D 25 NSFVRSCZnrgypw65/18/2021 Status post bariatric surgery GAGDezgnet36/ Status post bariatric surgery VITAMIN B12 & AXIVKGIrldjyb80/18/2021 Status post bariatric surgery FMDYYIFPZCebohgp30 Status post bariatric surgery IRON AND SILBIolcwfn22/18/2021 Status post bariatric surgery LIPID UNYQWJlwtlgo63/18/2021 Status post bariatric surgery COMPREHENSIVE METABOLIC BLXDPZrkgipr08/18/2021 Status post bariatric surgery CBC WITH AUTO EBTINHQYPEHUQkccbge23/18/2021 Status post bariatric surgery KGTXKXBVIPxuqujs17/18/2020 PTH, GCDDEPMgichnq36/18/2020 VITAMIN D 1,25 YNCCXUNINQeogfql18/18/2020 COMPREHENSIVE METABOLIC LONMRKsonexz27/18/2020 XR CERVICAL SPINE (2-3 VIEWS)Oxgqlxg0712/28/2018 10:01 AM EST S/P cervical spinal fusion 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) MICROSCOPIC ZUVZHSLMCCOprhfbx35/20/2019 8:42 AM EDT URINALYSIS WITH REFLEX TO BGJJYOCLopyfhz96/20/2019 8:42 AM EDT CULTURE, MOSCGJejrtbg80/20/2019 8:42 AM EDT RHYTHM STRIP UIJIEY7909/07/2018 3:13 PM EDTCBC WITH AUTO DIFFERENTIALSTAT 09/06/2018 5:50 AM EDT BASIC METABOLIC PANEL W/ REFLEX TO MG FOR LOW KSTAT09/06/2018 5:50 AM EDT RQHHYtdgcfc48/29/2019 11:30 AM EDT VASCULAR YDFJIZ7109/05/2018 10:57 AM EDTCBC WITH AUTO ERAOCPZDUMHITYQR13/29/2019 5:31 AM EDT BASIC METABOLIC PANEL W/ REFLEX TO MG FOR LOW KSTAT09/05/2018 5:31 AM EDT AKRTUjwdgds27/29/2019 3:20 AM EDT RWAQLamzv02/28/2019 10:05 PM EDT YBKAPallr39/28/2019 10:24 AM EDT CBC WITH AUTO YTTSLZDBNHPCQKQN90/28/2019 10:24 AM EDT BASIC METABOLIC PANEL W/ REFLEX TO MG FOR LOW KSTAT09/04/2018 10:24 AM EDT EMPUHzljm13/27/2019 11:25 PM EDT ONPDLxyqy23/27/2019 5:11 PM EDT VL DUP LOWER EXTREMITY VENOUS HKWKALFVPYpatkfo40/27/2019 2:08 PM EDT ORRBECJUPlkss25/27/2019 10:10 AM EDT OTZLLocnh81/27/2019 10:10 AM EDT WLWGczudhl33/27/2019 10:10 AM EDT ECHOCARDIOGRAM COMPLETE 2D W DOPPLER W ESTXCWxzxpje72/27/2019 8:15 AM EDT PROTIME-ENLSrtglqv25/27/2019 5:00 AM EDT NPKVInybf45/27/2019 5:00 AM EDT MRSA DNA PROBE, NASALSunquest Label Print09/03/2018 4:55 AM EDT VITAMIN D 25 XXZPUYRHspzace29/27/2019 4:54 AM EDT TSH REFLEX TO VA1Iyuypij14/27/2019 4:54 AM EDT NEHSMKTEUPlvruey22/27/2019 4:54 AM EDT CBC WITH AUTO BOBTQUIBAJMQIIRM39/27/2019 4:54 AM EDT XZYQEAUPLsjuu01/27/2019 4:54 AM EDT LACTIC YEXOMYZW19/27/2019 4:54 AM EDT BASIC METABOLIC PANEL W/ REFLEX TO MG FOR LOW KSTAT09/03/2018 4:54 AM EDT HEPATIC FUNCTION QYUGFUCFG49/27/2019 4:54 AM EDT EKG REVLIV3809/03/2018 2:49 AM EDTEKG 12-ZSXUPfocvvo34/27/2019 2:49 AM EDT CRDEFZMCEjkgj13/27/2019 2:23 AM EDT BRAIN NATRIURETIC PEPTIDEStat Sunquest Label 09/03/2018 2:23 AM EDT APTTStat Sunquest Label 09/03/2018 2:23 AM EDT PROTIME-INRStat Sunquest Label print09/03/2018 2:23 AM EDT BASIC METABOLIC PANELStat Sunquest Label print09/03/2018 2:23 AM EDT CBC WITH AUTO DIFFERENTIALStat Sunquest Label print09/03/2018 2:23 AM EDT RHYTHM STRIP YPKIBX6509/01/2018 3:02 PM EDTXR CERVICAL SPINE (2-3 VIEWS)Routine 08/31/2018 10:36 AM EDT HZSVzpxaxq83/24/2019 5:29 AM EDT XR CERVICAL SPINE (2-3 VIEWS)Jwvtxrt6108/30/2018 10:35 AM EDT MICROSCOPIC FFEWVAIEHFWfyacru16/23/2019 10:20 AM EDT OASYHGZRZZCjrusxr06/23/2019 10:20 AM EDT CULTURE, XWPRCXmwfrfm44/23/2019 10:19 AM EDT CERVICAL LAMINECTOMY FUSION JFEKIDEQ38/23/2019 8:32 AM EDT CERVICAL STENOSIS Special Needs PAT OFFSITE, PT IN NURSING FACILITY, NICOLA TYPE AND SCREENStat Sunquest Label 08/30/2018 7:00 AM EDT MRI CERVICAL SPINE WO GDUYPTZXOipxnuy11/06/2019 4:33 PM EDT Chronic incomplete quadriplegia (HCC) MRI THORACIC SPINE WO OKUDBYGYJwlaeka77/24/2019 10:54 AM EDT Spinal stenosis of lumbar region, unspecified whether neurogenic claudication present Weakness of both lower limbs MRI LUMBAR SPINE WO VKEEAIQGYgkilwc48/02/2019 1:09 PM EDT Spinal stenosis of lumbar region, unspecified whether neurogenic claudication present Weakness of both lower limbs BHAKplmsiy31/27/2019 JOLANTA (obstructive sleep apnea) Status post laparoscopic sleeve gastrectomy Chronic midline low back pain with sciatica, sciatica laterality unspecified Lumbosacral radiculopathy High triglycerides Lymphedema Hepatic steatosis Morbid obesity with body mass index (BMI) of 40.0 to 49.9 (HCC) CBBXXGOWNIdywvow20/30/2019 JOLANTA (obstructive sleep apnea) Status post laparoscopic sleeve gastrectomy Chronic midline low back pain with sciatica, sciatica laterality unspecified Lumbosacral radiculopathy High triglycerides Lymphedema Hepatic steatosis Morbid obesity with body mass index (BMI) of 40.0 to 49.9 (HCC) LIPID JELXHWgqdeov24/30/2019 JOLANTA (obstructive sleep apnea) Status post laparoscopic sleeve gastrectomy Chronic midline low back pain with sciatica, sciatica laterality unspecified Lumbosacral radiculopathy High triglycerides Lymphedema Hepatic steatosis Morbid obesity with body mass index (BMI) of 40.0 to 49.9 (HCC) VITAMIN B12 & VLZHPMZfjieai08/30/2019 JOLANTA (obstructive sleep apnea) Status post laparoscopic sleeve gastrectomy Chronic midline low back pain with sciatica, sciatica laterality unspecified Lumbosacral radiculopathy High triglycerides Lymphedema Hepatic steatosis Morbid obesity with body mass index (BMI) of 40.0 to 49.9 (HCC) IRON AND GDYDZsqujjp91/30/2019 JOLANTA (obstructive sleep apnea) Status post laparoscopic sleeve gastrectomy Chronic midline low back pain with sciatica, sciatica laterality unspecified Lumbosacral radiculopathy High triglycerides Lymphedema Hepatic steatosis Morbid obesity with body mass index (BMI) of 40.0 to 49.9 (HCC) LRNEFTSMFpaetkt78/30/2019 JOLANTA (obstructive sleep apnea) Status post laparoscopic sleeve gastrectomy Chronic midline low back pain with sciatica, sciatica laterality unspecified Lumbosacral radiculopathy High triglycerides Lymphedema Hepatic steatosis Morbid obesity with body mass index (BMI) of 40.0 to 49.9 (HCC) T4, YWTSBrawtif79/30/2019 JOLANTA (obstructive sleep apnea) Status post laparoscopic sleeve gastrectomy Chronic midline low back pain with sciatica, sciatica laterality unspecified Lumbosacral radiculopathy High triglycerides Lymphedema Hepatic steatosis Morbid obesity with body mass index (BMI) of 40.0 to 49.9 (HCC) COMPREHENSIVE METABOLIC WXQRDApgyyzc40/30/2019 JOLANTA (obstructive sleep apnea) Status post laparoscopic sleeve gastrectomy Chronic midline low back pain with sciatica, sciatica laterality unspecified Lumbosacral radiculopathy High triglycerides Lymphedema Hepatic steatosis Morbid obesity with body mass index (BMI) of 40.0 to 49.9 (HCC) CBC WITH AUTO XLSOGWYUYZPHApsrqkf32/30/2019 JOLANTA (obstructive sleep apnea) Status post laparoscopic sleeve gastrectomy Chronic midline low back pain with sciatica, sciatica laterality unspecified Lumbosacral radiculopathy High triglycerides Lymphedema Hepatic steatosis Morbid obesity with body mass index (BMI) of 40.0 to 49.9 (HCC) HEMOGLOBIN T3SSnyrxkf78/03/2018 Obstructive sleep apnea Status post bariatric surgery VITAMIN D 25 BHRPHACXhnvsqw25/03/2018 Obstructive sleep apnea Status post bariatric surgery KQUXSHWNECqevcsf20/03/2018 Obstructive sleep apnea Status post bariatric surgery HEMOGLOBIN V5KTxryzsc13/03/2018 JOLANTA (obstructive sleep apnea) Status post laparoscopic sleeve gastrectomy Chronic midline low back pain with sciatica, sciatica laterality unspecified Lumbosacral radiculopathy High triglycerides Lymphedema Hepatic steatosis Morbid obesity with body mass index (BMI) of 40.0 to 49.9 (HCC) RNOTvztouw27/03/2018 Obstructive sleep apnea Status post bariatric surgery COMPREHENSIVE METABOLIC JNEHCOjwynew39/03/2018 Obstructive sleep apnea Status post bariatric surgery IRON AND MVIYCydirxp70/03/2018 Obstructive sleep apnea Status post bariatric surgery PTH, NAHUGFQhxoyis16/03/2018 Obstructive sleep apnea Status post bariatric surgery TSH REFLEX TO RY7Xonbgaf60/03/2018 Obstructive sleep apnea Status post bariatric surgery VITAMIN B12 & MJTIDYZpnljaj83/03/2018 Obstructive sleep apnea Status post bariatric surgery VITAMIN D 25 UMJOMNSVgzsscs39/03/2018 JOLANTA (obstructive sleep apnea) Status post laparoscopic sleeve gastrectomy Chronic midline low back pain with sciatica, sciatica laterality unspecified Lumbosacral radiculopathy High triglycerides Lymphedema Hepatic steatosis Morbid obesity with body mass index (BMI) of 40.0 to 49.9 (HCC) MRI LUMBAR SPINE WO PQCQGRNQVdkzagv09/21/2018 Chronic midline low back pain with sciatica, sciatica laterality unspecified Lumbosacral radiculopathy Numbness of right foot RHYTHM STRIP EZEMBW8106/28/2017 2:23 PM EDTCULTURE, URINESunquest Label Print 06/24/2017 7:39 PM EDT MICROSCOPIC YVTHAYMYIPRjaiqwo14/17/2018 2:30 PM EDT URINALYSISSunquest Label Print06/24/2017 2:30 PM EDT VITAMIN O6Jdwybfq22/16/2018 5:40 PM EDT TSH REFLEX TO BR7Zvdokla27/16/2018 5:40 PM EDT BASIC METABOLIC OGDHUEfmusyv08/16/2018 5:40 PM EDT SEDIMENTATION DNQLKyujire05/16/2018 5:40 PM EDT ELECTROPHORESIS PROTEIN, NREGJOyfjdmb69/16/2018 5:40 PM EDT C4 CBWFEFVLDBZcthxwb09/16/2018 5:40 PM EDT C3 IPVZMDIJMKSjkloik46/16/2018 5:40 PM EDT VITAMIN DLlfyubu35/16/2018 5:40 PM EDT SUSY SCREEN WITH RQJOVNZlnniml57/16/2018 5:40 PM EDT HEAVY METALS SCREEN, URINESunquest Label 06/23/2017 2:50 PM EDT KAPPA / LAMBDA LIGHT CHAINS, URINE, 24 HOURSunquest Label 06/23/2017 2:00 PM EDT XR KNEE LEFT (3 VIEWS)STAT06/22/2017 5:40 PM EDT XR LUMBAR SPINE (2-3 VIEWS)STAT06/22/2017 5:40 PM EDT XR HIP LEFT (2-3 VIEWS)STAT06/22/2017 5:40 PM EDT FL RQFVIXIPNCGngrcwk36/15/2018 9:05 AM EDT BASIC METABOLIC GVMUCXeutacp79/14/2018 4:01 PM EDT CBC WITH AUTO EQZFXUNYGSRIBdhelxl84/14/2018 4:01 PM EDT SURGICAL SEEYVVGSMJzfcrxd46/14/2018 2:42 PM EDT GASTRECTOMY SLEEVE LAPAROSCOPIC RXSXIYS7306/21/2017 9:52 AM EDT MORBID OBESITY, OBSTRUCTIVE SLEEP APNEA, LYMPHEDEMA, GERD Special Needs PAT (MICHELE) HCG, SERUM, QUALITATIVESunquest Label 06/21/2017 9:00 AM EDT XR CHEST (2 VW)Cthzorc6405/06/2017 3:50 PM EDT MUEErbrxrf58/29/2018 3:37 PM EDT ALKALINE JQNYASJDCBHBvfeicz12/29/2018 3:37 PM EDT NICOTINE, MMAVQKcvnpwi98/29/2018 3:37 PM EDT PROTIME-IWDAdkoxmo90/29/2018 3:37 PM EDT ZNEKJevxzkt00/29/2018 3:37 PM EDT BASIC METABOLIC CEMJYTzludtt89/29/2018 3:37 PM EDT DAQHsmfhkz42/29/2018 3:37 PM EDT EKG 12-XWYRDmxeclg86/29/2018 1:49 PM EDT SURGICAL IULCYQRABAmetngy09/09/2017 12:03 PM EDT ESOPHAGOGASTRODUODENOSCOPY ZZROYM3611/16/2016 9:25 AM EDT GASTRIC ULCER FOLLOW UP Special Needs GARRICK Duenas ZLCJDMQDQmqvnzy68/02/2017 Gastroesophageal reflux disease without esophagitis Snoring Primary osteoarthritis involving multiple joints Morbid obesity due to excess calories (HCC) KYKVLBPIMPrzfuzx01/02/2017 Gastroesophageal reflux disease without esophagitis Snoring Primary osteoarthritis involving multiple joints Morbid obesity due to excess calories (HCC) AMB EXTERNAL REFERRAL TO GUXBXMIBPOCfcomfc53/17/2017 Gastroesophageal reflux disease without esophagitis Primary osteoarthritis involving multiple joints Morbid obesity due to excess calories (HCC) AMB EXTERNAL REFERRAL TO OTICOKQLBKJlumvmy51/10/2017 Morbid obesity due to excess calories (HCC) RHYTHM STRIP ULXWOV3608/14/2016 1:17 PM EDTSURGICAL ETERYDTOKDbeipcn07/05/2017 10:06 AM EDT US GI ENDOSCOPIC S&QNtupgso45/05/2017 9:43 AM EDT ENDOSCOPIC XQGJGLOUUF16/05/2017 7:58 AM EDT ESOPHAGEAL MASS POCT URINE DDHXMUZARQkgqhlf05/05/2017 6:35 AM EDT AMB REFERRAL TO SLEEP ZORDKBJRGogkjfc87/17/2017 Snoring Morbid obesity due to excess calories (HCC) FL DQVYcptyzt68/09/2017 9:18 AM EDT Gastroesophageal reflux disease without esophagitis Morbid obesity due to excess calories (HCC) HEMOGLOBIN V2ADnjtmby76/07/2017 Gastroesophageal reflux disease without esophagitis [place]oring Primary osteoarthritis involving multiple joints Morbid obesity due to excess calories (HCC) NICOTINE, WQATXMqeqbam32/07/2017 Gastroesophageal reflux disease without esophagitis [place]oring Primary osteoarthritis involving multiple joints Morbid obesity due to excess calories (HCC) VITAMIN V4Gctzyvc89/07/2017 Gastroesophageal reflux disease without esophagitis [place]oring Primary osteoarthritis involving multiple joints Morbid obesity due to excess calories (HCC) JOSJYsrrelm20/07/2017 Gastroesophageal reflux disease without esophagitis [place]oring Primary osteoarthritis involving multiple joints Morbid obesity due to excess calories (HCC) PTH, FVRBRQZlhadns58/07/2017 Gastroesophageal reflux disease without esophagitis [place]oring Primary osteoarthritis involving multiple joints Morbid obesity due to excess calories (HCC) VITAMIN FSjgsnxv65/07/2017 Gastroesophageal reflux disease without esophagitis [place]oring Primary osteoarthritis involving multiple joints Morbid obesity due to excess calories (HCC) VITAMIN D 25 SZAMNMJJmjbffl94/07/2017 Gastroesophageal reflux disease without esophagitis [place]oring Primary osteoarthritis involving multiple joints Morbid obesity due to excess calories (HCC) URINE DRUG NPMSXJEpvqjty21/07/2017 Gastroesophageal reflux disease without esophagitis [place]oring Primary osteoarthritis involving multiple joints Morbid obesity due to excess calories (HCC) IRON AND EQBMPhqxgxw02/07/2017 Gastroesophageal reflux disease without esophagitis [place]oring Primary osteoarthritis involving multiple joints Morbid obesity due to excess calories (HCC) VITAMIN B12 & GKRNUBCixawpw70/07/2017 Gastroesophageal reflux disease without esophagitis [place]oring Primary osteoarthritis involving multiple joints Morbid obesity due to excess calories (HCC) T4, FFJEAygkhok59/07/2017 Gastroesophageal reflux disease without esophagitis [place]oring Primary osteoarthritis involving multiple joints Morbid obesity due to excess calories (HCC) CVSYjxwzzv58/07/2017 Gastroesophageal reflux disease without esophagitis [place]oring Primary osteoarthritis involving multiple joints Morbid obesity due to excess calories (HCC) LIPID PUCCZQxtrtow49/07/2017 Gastroesophageal reflux disease without esophagitis [place]oring Primary osteoarthritis involving multiple joints Morbid obesity due to excess calories (HCC) COMPREHENSIVE METABOLIC JEHEWIuhulus04/07/2017 Gastroesophageal reflux disease without esophagitis [place]oring Primary osteoarthritis involving multiple joints Morbid obesity due to excess calories (HCC) CBC WITH AUTO QTUGIUBUSSUCQyvfrya00/07/2017 Gastroesophageal reflux disease without esophagitis [place]oring Primary osteoarthritis involving multiple joints Morbid obesity due to excess calories (HCC) SURGICAL OWLIPACAVAopqkaz00/02/2017 2:17 PM EDT H. PYLORI JCOYBMMKGDwosxxm20/02/2017 10:40 AM EDT ESOPHAGOGASTRODUODENOSCOPY OPTGLL6707/10/2016 10:33 AM EDT GERD, OBESITY Special Needs (FAX) POCT URINE FVLRPLZTTLciltjc71/02/2017 9:10 AM EDT Results * CT CERVICAL SPINE WO CONTRAST (07/13/2022 2:32 PM EDT)Anatomical Region LateralityModalityC-spine, T-spine, NeckComputed TomographySpecimen (Source) Anatomical Location / LateralityCollection Method / VolumeCollection Time Received Time07/13/2022 2:37 PM EDT Impressions 07/17/2022 11:00 PM EDT 1. Prior anterior metallic fusion discectomy at C4-C5 out evident hardware complication. 2. Spinal degenerative changes as described. ??Multilevel central canal narrowing is most prominent at least moderate and possibly severe at C5-C6. Multilevel osseous neural foraminal narrowing is most prominent and ygsg-ce-mmgwqehc bilaterally at C5-C6. Narrative 07/17/2022 11:00 PM EDT EXAMINATION: CT OF THE CERVICAL SPINE WITHOUT [...] fusion discectomy at C4-C5 is again noted. ??The hardware is intact with no evidence of loosening. ??The disc space appears partially fused. ??There is normal spinal alignment. ??C1 and C2 have normal relationship. ??There is no acute fracture. DEGENERATIVE CHANGES: Degenerative disc disease is moderate at C5-C6 and mild elsewhere. ??There is iasj-nt-pujavjoh multilevel facet arthropathy in the spine. ??Central canal narrowing appears at least moderate and possibly severe at C5-C6 and is mild at C3-C4 and C6-C7. ??Multilevel osseous foraminal narrowing is mild bilaterally at C3-C4, mild on the left at C4-C5 and snjb-iz-bijpkwsa bilaterally at C5-C6. SOFT TISSUES: There is no prevertebral soft tissue swelling. Procedure Note Ezra Mason MD - 07/17/2022 EXAMINATION: CT OF THE CERVICAL SPINE WITHOUT CONTRAST 07/13/2022 11:32 am TECHNIQUE: CT of the cervical spine was performed without the administration of intravenous contrast. Multiplanar reformatted images are provided forreview. Automated exposure control, iterative reconstruction, and/or weightbased adjustment of the mA/kV was utilized to reduce the radiation dose to aslow as reasonably achievable. COMPARISON: MRI 05/18/2022. HISTORY: ORDERING SYSTEM PROVIDED HISTORY: Spinal stenosis, cervical region FINDINGS: BONES/ALIGNMENT: Prior anterior metallic fusion discectomy at C4-C5 isagain noted. The hardware is intact with no evidence of loosening. The discspace appears partially fused. There is normal spinal alignment. C1 and C2have normal relationship. There is no acute fracture. DEGENERATIVE CHANGES: Degenerative disc disease is moderate at C5-C6 andmild elsewhere. There is xmms-ct-gogsnewx multilevel facet arthropathy inthe spine. Central canal narrowing appears at least moderate and possiblysevere at C5-C6 and is mild at C3-C4 and C6-C7. Multilevel osseous foraminal narrowing is mild bilaterally at C3-C4, mild on the left at C4-C5 and iujk-ol-tcvryovj bilaterally at C5-C6. SOFT TISSUES: There is no prevertebral soft tissue swelling. IMPRESSION: 1. Prior anterior metallic fusion discectomy at C4-C5 out evidenthardware complication. 2. Spinal degenerative changes as described. Multilevel central canal narrowing is most prominent at least moderate and possibly severe atC5-C6. Multilevel osseous neural foraminal narrowing is most prominent and pyda-qr-opdmdqkg bilaterally at C5-C6. Authorizing ProviderResult TypeResult StatusMegan Lara CAGE CLERK - CNPNORMAN REGIONAL H[facility]ITAL [facility] – [place] ORDERABLESFinal Result * MRI CERVICAL SPINE WO CONTRAST (05/18/2022 3:26 PM EDT) Only the most recent of2 resultswithin the time period is included. Anatomical RegionLateralityModalityC-spine, T-spine, NeckMagnetic Resonance Specimen (Source)Anatomical Location / LateralityCollection Method / Volume Collection TimeReceived Time05/18/2022 3:37 PM EDT Impressions 05/19/2022 10:27 AM EDT 1. Anterior cervical discectomy and fusion of C4-C5. 2. Multilevel cervical spondylosis, most notable at C5-C6 (severe spinal canal stenosis, suspected severe bilateral foraminal narrowing). 3. Chronic C4-C5 myelomalacia. Narrative 05/19/2022 10:27 AM EDT EXAMINATION: MRI OF THE CERVICAL SPINE WITHOUT CONTRAST 05/18/2022 2:55 pm TECHNIQUE: Multiplanar multisequence MRI of the cervical spine was performed without the administration of intravenous contrast. COMPARISON: 07/14/2018. HISTORY: ORDERING SYSTEM PROVIDED HISTORY: Cervical myelopathy (HCC) FINDINGS: Suboptimal evaluation secondary to image degradation, likely related to body habitus. BONES/ALIGNMENT: Anterior cervical discectomy and fusion of C4-C5, new since 07/14/2018. ??No significant spondylolisthesis. ??Vertebral body heights appear preserved. ??Marrow signal appears within normal limits. ??No evidence of acute fracture or aggressive appearing osseous lesions. SPINAL CORD: Chronic myelomalacia centered at the C4-C5 level. ??Otherwise, no abnormal cord signal. SOFT TISSUES: No paraspinal mass identified. C2-C3: No significant spinal canal stenosis or foraminal narrowing. C3-C4: Disc osteophyte complex. ??Moderate spinal canal stenosis. ??Suspected mild bilateral foraminal narrowing. C4-C5: Status post fusion. ??Osteophytosis. ??Mild spinal canal stenosis. Suspected mild/moderate bilateral foraminal narrowing. C5-C6: Disc osteophyte complex. ??Ligamentum flavum thickening. ??Severe spinal canal stenosis. ??Suspected severe bilateral foraminal narrowing. C6-C7: Disc osteophyte complex. ??Ligamentum flavum thickening. ??Mild/moderate spinal canal stenosis. ??Suspected mild left foraminal narrowing. C7-T1: Disc bulge. ??Ligamentum flavum thickening. ??Mild spinal canal stenosis. ??No significant foraminal narrowing. Procedure Note Ramsey Trammell MD - 05/19/2022 EXAMINATION: MRI OF THE CERVICAL SPINE WITHOUT CONTRAST 05/18/2022 2:55 pm TECHNIQUE: Multiplanar multisequence MRI of the cervical spine was performed withoutthe administration of intravenous contrast. COMPARISON: 07/14/2018. HISTORY: ORDERING SYSTEM PROVIDED HISTORY: Cervical myelopathy (HCC) FINDINGS: Suboptimal evaluation secondary to image degradation, likely related tobody habitus. BONES/ALIGNMENT: Anterior cervical discectomy and fusion of C4-C5, newsince 07/14/2018. No significant spondylolisthesis. Vertebral body heightsappear preserved. Marrow signal appears within normal limits. No evidence ofacute fracture or aggressive appearing osseous lesions. SPINAL CORD: Chronic myelomalacia centered at the C4-C5 level. Otherwise,no abnormal cord signal. SOFT TISSUES: No paraspinal mass identified. C2-C3: No significant spinal canal stenosis or foraminal narrowing. C3-C4: Disc osteophyte complex. Moderate spinal canal stenosis.Suspected mild bilateral foraminal narrowing. C4-C5: Status post fusion. Osteophytosis. Mild spinal canal stenosis. Suspected mild/moderate bilateral foraminal narrowing. C5-C6: Disc osteophyte complex. Ligamentum flavum thickening. Severespinal canal stenosis. Suspected severe bilateral foraminal narrowing. C6-C7: Disc osteophyte complex. Ligamentum flavum thickening.Mild/moderate spinal canal stenosis. Suspected mild left foraminal narrowing. C7-T1: Disc bulge. Ligamentum flavum thickening. Mild spinal canal stenosis. No significant foraminal narrowing. IMPRESSION: 1. Anterior cervical discectomy and fusion of C4-C5. 2. Multilevel cervical spondylosis, most notable at C5-C6 (severe spinal canal stenosis, suspected severe bilateral foraminal narrowing). 3. Chronic C4-C5 myelomalacia. Authorizing ProviderResult TypeResult StatusChristopher Luz Antonio [facility] MRI ORDERABLESFinal Result * TSH with Reflex to FT4 (10/16/2021)Specimen (Source)Anatomical Location / LateralityCollection Method / VolumeCollection TimeReceived TimeBLOOD SPECIMEN / Unknown Impressions Tom Franklin RN - 10/16/2021 1.34 (reference range 0.45-5.33) Narrative Authorizing ProviderResult TypeResult StatusHistorical Provider MDCHEMISTRY ORDERABLESEdited Result - Final * CBC with Auto Differential (10/16/2021) Only the most recent of10 resultswithin the time period is included. ComponentValueRef RangeTest MethodAnalysis TimePerformed AtPathologist Signature WBC6.210^3/mLRBC4.1810^6/??KNiqncmvrhn40.812.0 - 16.0 g/sBXiamvbeiub94.136 - 46 %MCV93.9pBREJ54.7tvOEBI45.7g/mWUzsqdfgyn879J/??LRDW13.4%MPV8.6fLNeutrophils % 53.3%Lymphocytes %37.6%Monocytes %6.9%Eosinophils %1.7%Basophils %0.5% Neutrophils Absolute3.3/??LLymphocytes Absolute2.3/??LMonocytes Absolute0.4/??L Eosinophils Absolute0.1/??LBasophils Absolute0.0/??LSpecimen (Source)Anatomical Location / LateralityCollection Method / VolumeCollection TimeReceived TimeBLOOD SPECIMEN / Unknown Narrative Authorizing ProviderResult TypeResult StatusHistorical Provider MDHEMATOLOGY ORDERABLESEdited Result - Final * Vitamin D 1,25 Dihydroxy (10/16/2021) Only the most recent of2 resultswithin the time period is included. Specimen (Source)Anatomical Location / LateralityCollection Method / Volume Collection TimeReceived TimeBLOOD SPECIMEN / Unknown Impressions Tom Franklin, EVE - 10/16/2021 47.4 (reference range 30-100ng/mL) Narrative Authorizing ProviderResult TypeResult StatusHistorical Provider MDCHEMISTRY ORDERABLESEdited Result - Final * Hemoglobin A1C (10/16/2021) Only the most recent of5 resultswithin the time period is included. ComponentValueRef RangeTest MethodAnalysis TimePerformed AtPathologist Signature Hemoglobin A1C5.3%Estimated Avg Ohzdcwb884Ildaukih (Source)Anatomical Location / LateralityCollection Method / VolumeCollection TimeReceived TimeBLOOD SPECIMEN / Unknown Narrative Authorizing ProviderResult TypeResult StatusHistorical Provider MDCHEMISTRY ORDERABLESEdited Result - Final * Folate (10/16/2021)Specimen (Source)Anatomical Location / LateralityCollection Method / VolumeCollection TimeReceived TimeBLOOD SPECIMEN / Unknown Impressions Tom Franklin RN - 10/16/2021 >22.3 Narrative Authorizing ProviderResult TypeResult StatusHistorical Provider MDCHEMISTRY ORDERABLESEdited Result - Final * Ferritin (10/16/2021) Only the most recent of3 resultswithin the time period is included. ComponentValueRef RangeTest MethodAnalysis TimePerformed AtPathologist Signature Fpqhptbd15.69.0 - 150.0 ng/mLComment:reference range 11-306.8ng/mLSpecimen (Source)Anatomical Location / LateralityCollection Method / VolumeCollection TimeReceived TimeBLOOD SPECIMEN / Unknown Narrative Authorizing ProviderResult TypeResult StatusHistorical Provider MDCHEMISTRY ORDERABLESEdited Result - Final * Vitamin B12 (10/16/2021)ComponentValueRef RangeTest MethodAnalysis Time Performed AtPathologist SignatureVitamin B-80347Gxgnaur:refrence range 180-914 pg/mlSpecimen (Source)Anatomical Location / LateralityCollection Method / VolumeCollection TimeReceived TimeBLOOD SPECIMEN / Unknown Narrative Authorizing ProviderResult TypeResult StatusHistorical Provider MDCHEMISTRY ORDERABLESEdited Result - Final * Lipid Panel (10/16/2021) Only the most recent of4 resultswithin the time period is included. ComponentValueRef RangeTest MethodAnalysis TimePerformed AtPathologist Signature Cholesterol, Zitou155lo/xDYRC4234 - 70 mg/dLLDL Qdnqbbggwe5767 - 160 mg/dL Dcmmpfcssjuoi464mm/dLChol/HDL Ratio4.6EPFP44sg/dLCholesterol non HDLSpecimen (Source)Anatomical Location / LateralityCollection Method / VolumeCollection TimeReceived TimeBLOOD SPECIMEN / Unknown Narrative Authorizing ProviderResult TypeResult StatusHistorical Provider MDCHEMISTRY ORDERABLESEdited Result - Final * Comprehensive Metabolic Panel (10/16/2021) Only the most recent of6 resultswithin the time period is included. ComponentValueRef RangeTest MethodAnalysis TimePerformed AtPathologist Signature Lqjkuw333mbzl/JNsvixzeh314owts/LPotassium4.2mmol/FQKB82mk/dLCreatinine0.90 Ssjwkyr30as/wPJEU86P/MDCH78J/LCalcium9.3mg/dLTotal Protein6.4AE076.7mmol/L Albumin3.2Alkaline Dmctatedahb66O/LTotal Bilirubin0.50.1 - 1.4 mg/dLEst, Glom Filt Rate>60Anion GapSpecimen (Source)Anatomical Location / LateralityCollection Method / VolumeCollection TimeReceived TimeBLOOD SPECIMEN / Unknown Narrative Authorizing ProviderResult TypeResult StatusHistorical Provider MDCHEMISTRY ORDERABLESEdited Result - Final * Vitamin B12 & Folate (04/25/2020) Only the most recent of4 resultswithin the time period is included. ComponentValueRef RangeTest MethodAnalysis TimePerformed AtPathologist Signature Vitamin B-75182Lkeowq>20.0Specimen (Source)Anatomical Location / Laterality Collection Method / VolumeCollection TimeReceived TimeBLOOD SPECIMEN / Unknown 04/25/2020 Narrative Authorizing ProviderResult TypeResult StatusFormerly [facility] DOCHEMISTRY ORDERABLESFinal Result * Iron and TIBC (04/25/2020) Only the most recent of4 resultswithin the time period is included. ComponentValueRef RangeTest MethodAnalysis TimePerformed AtPathologist Signature Czxd338HUIV548Fskxofae (Source)Anatomical Location / LateralityCollection Method / VolumeCollection TimeReceived TimeBLOOD SPECIMEN / Epxxthz8404/25/2020 Narrative Authorizing ProviderResult TypeResult StatusW[facility] [place] DOCHEMISTRY ORDERABLESFinal Result * Zinc (04/25/2020) Only the most recent of2 resultswithin the time period is included. Specimen (Source)Anatomical Location / LateralityCollection Method / Volume Collection TimeReceived TimeBLOOD SPECIMEN / Schdmax2004/25/2020 Impressions RankShirley MA - 04/25/2020 100 Narrative Authorizing ProviderResult TypeResult [facility] AdVantage NetworksHEMISTRY ORDERABLESFinal Result * Vitamin A (04/25/2020) Only the most recent of2 resultswithin the time period is included. Specimen (Source)Anatomical Location / LateralityCollection Method / Volume Collection TimeReceived TimeBLOOD SPECIMEN / Nbuzgwr2504/25/2020 Impressions Rank, Shirley Delgadillo MA - 04/25/2020 53.9 Narrative Authorizing ProviderResult TypeResult StatusFormerly [facility] AdVantage NetworksHEMISTRY ORDERABLESFinal Result * Vitamin D 25 Hydroxy (04/25/2020) Only the most recent of5 resultswithin the time period is included. ComponentValueRef RangeTest MethodAnalysis TimePerformed AtPathologist Signature Vit D, 25-Skeolyu30.2Vitamin D3,25 HydroxyVitamin D2, 25 HydroxySpecimen (Source)Anatomical Location / LateralityCollection Method / VolumeCollection TimeReceived TimeBLOOD SPECIMEN / Hdbhicg3004/25/2020 Narrative Authorizing ProviderResult TypeResult StatusWalthall [facility] [place] AdVantage NetworksHEMISTRY ORDERABLESFinal Result * TSH without Reflex (04/25/2020) Only the most recent of3 resultswithin the time period is included. ComponentValueRef RangeTest MethodAnalysis TimePerformed AtPathologist Signature TSH1.622uIU/mLSpecimen (Source)Anatomical Location / LateralityCollection Method / VolumeCollection TimeReceived TimeBLOOD SPECIMEN / Fjxzwsu2204/25/2020 Narrative Authorizing ProviderResult TypeResult StatusW[facility] [employer] Player ORDERABLESFinal Result * Vitamin B1 (04/25/2020) Only the most recent of3 resultswithin the time period is included. Specimen (Source)Anatomical Location / LateralityCollection Method / Volume Collection TimeReceived TimeBloodBLOOD SPECIMEN / Mvujqcl3104/25/2020 Impressions Rank, Shirley DelgadilloELVIS - 04/25/2020 215.1 Narrative Authorizing ProviderResult TypeResult StatusWalth[facility] [employer] Player ORDERABLESEdited Result - Final * PTH, Intact (04/25/2020) Only the most recent of4 resultswithin the time period is included. ComponentValueRef RangeTest MethodAnalysis TimePerformed AtPathologist Signature Pth Lvetbo37Incgcrof (Source)Anatomical Location / LateralityCollection Method / VolumeCollection TimeReceived TimeBLOOD SPECIMEN / Bzultab1104/25/2020 Narrative Authorizing ProviderResult TypeResult StatusWalth[facility] [employer] Player ORDERABLESFinal Result * Magnesium (04/25/2020) Only the most recent of6 resultswithin the time period is included. ComponentValueRef RangeTest MethodAnalysis TimePerformed AtPathologist Signature Magnesium1.9mg/dLSpecimen (Source)Anatomical Location / LateralityCollection Method / VolumeCollection TimeReceived TimeBLOOD SPECIMEN / Vzhpkyx1504/25/2020 Narrative Authorizing ProviderResult TypeResult StatusWalthall [facility] Hospital On[employer] Player ORDERABLESFinal Result * XR CERVICAL SPINE (2-3 VIEWS) (12/28/2018 10:01 AM EST) Only the most recent of3 resultswithin the time period is included. Anatomical RegionLateralityModalityC-spine, T-spine, NeckComputed Radiography Specimen (Source)Anatomical Location / LateralityCollection Method / Volume Collection TimeReceived Time12/28/2018 10:03 AM EST Impressions 12/28/2018 10:09 AM EST Expected postoperative findings status post C4-5 ACDF. Narrative 12/28/2018 10:09 AM EST EXAMINATION: 3 XRAY VIEWS OF [...] in appearance. No acute osseous abnormality identified. ??Minimal anterolisthesis of C2. Advanced lower cervical facet arthropathy and mild multilevel disc space narrowing. ??No prevertebral soft tissue abnormality identified. ??Hardware fixation overlying the maxillary region and mandible again demonstrated. ??The lung apices are clear. Procedure Note Anurag Mcqueen MD - 12/28/2018 EXAMINATION: 3 XRAY VIEWS OF THE CERVICAL SPINE 12/28/2018 10:01 am COMPARISON: August 31, 2018 HISTORY: ORDERING SYSTEM PROVIDED HISTORY: S/P cervical spinal fusion TECHNOLOGIST PROVIDED HISTORY: s/p ACDF 08/30/18 Reason for Exam: Pt states cervical fusion August 2018, f/u Acuity: Unknown Type of Exam: Subsequent/Follow-up FINDINGS: Status post anterior discectomy and fusion at C4-5, unchanged inappearance. No acute osseous abnormality identified. Minimal anterolisthesis of C2. Advanced lower cervical facet arthropathy and mild multilevel disc space narrowing. No prevertebral soft tissue abnormality identified.Hardware fixation overlying the maxillary region and mandible again demonstrated.The lung apices are clear. IMPRESSION: Expected postoperative findings status post C4-5 ACDF. Authorizing ProviderResult TypeResult StatusGena Escobar [facility] ORDERABLESFinal Result * (ABNORMAL) Urinalysis Reflex to Culture (11/27/2018 8:42 AM EDT)ComponentValue Ref RangeTest MethodAnalysis TimePerformed AtPathologist SignatureColor, UA YellowStraw/Icctjn1811/27/2018 8:22 AM [facility] LABClarity, UA TURBID(A)Clear11/27/2018 8:22 AM [facility] LABGlucose, Ur NegativeNegative mg/dL11/27/2018 8:22 AM [facility] LABBilirubin LmyrjPqvmsfbvXglnejid49/20/2019 8:22 AM [facility] LABKetones, UrineNegativeNegative mg/dL11/27/2018 8:22 AM [facility] Specific [place], UA1.0161.005 - 1.8971211/27/2018 8:22 AM [facility] LABBlood, UrineLARGE(A)Mlkrqrzx15/20/2019 8:22 AM [facility] LABpH, UA8.05.0 - 9.010 8:22 AM [facility] Protein, UA30(A)Negative mg/dL11/27/2018 8:22 AM [facility] Urobilinogen, Urine1.0<2.0 E.U./dL11/27/2018 8:22 AM [facility] LABNitrite, FpphuFwcediqmXmcrkozk02/20/2019 8:22 AM [facility] LABLeukocyte Esterase, UrineLARGE(A)Eluiqoyq92/20/2019 8:22 AM [facility] LABUrine Reflex to PzdziwpVYD18/20/2019 8:22 AM [facility] LABSpecimen (Source)Anatomical Location / LateralityCollection Method / VolumeCollection TimeReceived TimeURINE SPECIMEN / Jdalwzw7611/27/2018 8:42 AM EDT1 8:42 AM EDT Narrative [facility] - 11/27/2018 9:34 AM EDT CALL doctor [id number] tel. , Authorizing ProviderResult TypeResult StatusYousuf Lady Harris MDURINE ORDERABLESEdited Result - FinalPerforming OrganizationAddressCity/State/ZIP Code Phone Number [facility] [address] [place] [address], [facility] [place] [phone] * (ABNORMAL) Microscopic Urinalysis (11/27/2018 8:42 AM EDT) Only the most recent of3 resultswithin the time period is included. ComponentValueRef RangeTest MethodAnalysis TimePerformed AtPathologist Signature RBC, UA10-20(A)0 - 2 /HPF11/27/2018 9:34 AM [facility] Bacteria, UAMANY(A)/HPF11/27/2018 8:25 AM [facility] LABHyaline Casts, OX76-072 - 5 /HPF11/27/2018 8:25 AM [facility] LABWBC, UA >100(H)0 - 5 /HPF11/27/2018 8:25 AM [facility] LABEpithelial Cells, UA0-20 - 5 /HPF11/27/2018 8:25 AM [facility] LABSpecimen (Source)Anatomical Location / LateralityCollection Method / VolumeCollection TimeReceived Time11/27/2018 8:42 AM EDT1 8:42 AM EDT [facility] - 11/27/2018 9:34 AM EDT CALL doctor [id number] tel. , Authorizing ProviderResult TypeResult StatusIla SALGADO ORDERABLES Edited Result - FinalPerforming OrganizationAddressCity/State/ZIP CodePhone Number [facility] [address] [place] [address], [facility] [place] [phone] * (ABNORMAL) Urine Culture (11/27/2018 8:42 AM EDT) Only the most recent of3 resultswithin the time period is included. ComponentValueRef RangeTest MethodAnalysis TimePerformed AtPathologist Signature OrganismEscherichia coli(A)[facility] LABUrine Culture, Routine >100,000 CFU/mlHCA [facility] LABSpecimen (Source)Anatomical Location / LateralityCollection Method / VolumeCollection TimeReceived TimeURINE SPECIMEN / Vmastio0511/27/2018 8:42 AM EDT1 8:42 AM EDT [facility] - 11/29/2018 8:27 AM EDT ORDERED BY: DR. SRIDHAR SOURCE: Urine Clean Catch ?COLLECTED: ??11/27/18 08:42 ANTIBIOTICS AT [facility].: ?RECEIVED : ??11/27/18 08:42 CALL ??doctor ??[id number] tel. , OrganismAntibioticMethodSusceptibilityEscherichia coliamoxicillin-clavulanate BACTERIAL SUSCEPTIBILITY PANEL BY JAVIER 4 mcg/mL: Sensitive Escherichia coliampicillinBACTERIAL SUSCEPTIBILITY PANEL BY JAVIER >=32 mcg/mL: Resistant Escherichia coliceFAZolinBACTERIAL SUSCEPTIBILITY PANEL BY JAVIER <=4 mcg/mL: Sensitive Escherichia coliciprofloxacinBACTERIAL SUSCEPTIBILITY PANEL BY JAVIER >=4 mcg/mL: Resistant Escherichia coligentamicinBACTERIAL SUSCEPTIBILITY PANEL BY JAVIER >=16 mcg/mL: Resistant Escherichia colilevofloxacinBACTERIAL SUSCEPTIBILITY PANEL BY JAVIER >=8 mcg/mL: Resistant Escherichia colinitrofurantoinBACTERIAL SUSCEPTIBILITY PANEL BY JAVIER <=16 mcg/mL: Sensitive Escherichia colitobramycinBACTERIAL SUSCEPTIBILITY PANEL BY JAVIER 8 mcg/mL: Intermediate Escherichia colitrimethoprim-sulfamethoxazoleBACTERIAL SUSCEPTIBILITY PANEL BY JAVIER <=20 mcg/mL: Sensitive Authorizing ProviderResult TypeResult StatusUnknown Provider ResultMICROBIOLOGY - GENERAL ORDERABLESFinal ResultPerforming OrganizationAddressCity/State/ZIP CodePhone Number [facility] [address] [facility] [place] [address], [facility] [place] [phone] * RHYTHM STRIP REPORT (09/07/2018 3:13 PM EDT) Only the most recent of4 resultswithin the time period is included. Narrative Authorizing ProviderResult TypeResult StatusHpf ScanningECG ORDERABLESFinal Result * (ABNORMAL) Basic Metabolic Panel w/ Reflex to MG (09/06/2018 5:50 AM EDT) Only the most recent of4 resultswithin the time period is included. ComponentValueRef RangeTest MethodAnalysis TimePerformed AtPathologist Signature Aihfemi4819 - 99 mg/dL09/06/2018 5:50 AM EDTMERCY PGMXXVJLJXLNWQS86 - 20 mg/dL 09/06/2018 5:50 AM EDTMERCY LABORATORIESCreatinine0.540.50 - 0.90 mg/dL 09/06/2018 5:50 AM EDTMERCY LABORATORIESBUN/Creatinine RatioNOT REPORTED9 - 20 09/06/2018 5:50 AM EDTMERCY LABORATORIESCalcium8.88.6 - 10.4 mg/dL09/06/2018 5:50 AM EDTMERCY YMFSBVCJLGUVQsilwj590772 - 144 mmol/L09/06/2018 5:50 AM EDT [facility] LABORATORIESPotassium3.73.7 - 5.3 mmol/L09/06/2018 5:50 AM EDTMERCY DHULZPZBIYLYNjyumwwq40186 - 107 mmol/L09/06/2018 5:50 AM EDTMERCY LABORATORIES IG35177 - 31 mmol/L09/06/2018 5:50 AM EDTMERCY LABORATORIESAnion Gap8(L)9 - 17 mmol/L09/06/2018 5:50 AM EDTMERCY LABORATORIESGFR Non->60>60 mL/min09/06/2018 5:50 AM EDTMERCY LABORATORIESGFR >60>60 mL/min 09/06/2018 5:50 AM EDTMERCY LABORATORIESGFR Rnzfxpv9009/06/2018 5:50 AM EDTMERCY LABORATORIESComment: Average GFR for 40-49 years old: 99 mL/min/1.73sq m Chronic Kidney Disease: <60 mL/min/1.73sq m Kidney failure: <15 mL/min/1.73sq m ? eGFR calculated using average adult body mass. Additional eGFR calculator available at: ? http://www.[employer]/multiple_crcl_2012.htm ? GFR StagingNOT AFJGKEYR02/30/2019 5:50 AM EDTMERCY LABORATORIESSpecimen (Source) Anatomical Location / LateralityCollection Method / VolumeCollection Time Received TimeBLOOD SPECIMEN / Huxasyc5009/06/2018 5:50 AM EDT09/06/2018 5:57 AM EDT Narrative Authorizing ProviderResult TypeResult StatusYousuf Lady Harris MDCHEMISTRY ORDERABLESFinal ResultPerforming OrganizationAddressCity/State/ZIP CodePhone Number KATIE BOWER [address] [place] [address], [facility] [place] [phone] * (ABNORMAL) APTT (09/05/2018 11:30 AM EDT) Only the most recent of10 resultswithin the time period is included. ComponentValueRef RangeTest MethodAnalysis TimePerformed AtPathologist Signature APTT56.3(H)20.5 - 30.5 sec09/05/2018 11:30 AM EDTMERCSylvia LABORATORIESSpecimen (Source)Anatomical Location / LateralityCollection Method / VolumeCollection TimeReceived TimeBLOOD SPECIMEN / Ysrcssj7909/05/2018 11:30 AM EDT09/05/2018 11:53 AM EDT Narrative Authorizing ProviderResult TypeResult StatusRadaniel Parada MDHEMATOLOGY ORDERABLES Final ResultPerforming OrganizationAddressCity/State/ZIP CodePhone Number [employer] [address] [place] [address], [facility] [place] [phone] * VASCULAR REPORT (09/05/2018 10:57 AM EDT)Anatomical RegionLateralityModality Other Narrative Authorizing ProviderResult TypeResult StatusHpf ScanningIMG VASCULAR ORDERABLES Final Result * VL DUP LOWER EXTREMITY VENOUS BILATERAL (09/03/2018 2:08 PM EDT)Anatomical RegionLateralityModalityOtherSpecimen (Source)Anatomical Location / Laterality Collection Method / VolumeCollection TimeReceived Time09/03/2018 2:08 PM EDT Narrative 09/04/2018 2:06 AM EDT [facility] Vascular Lower Extremities DVT Study Procedure Patient Name ?? LUIS Escobar Date of Study ? 09/03/2018 Date of ??1970 ??Gender ?Female Age ?48 year(s) ??Race ? Room Number ?0121 ?Height: ? 74 inch, 187.96 cm Corporate ID # [id number] ?Weight: ? 280 pounds, 127 kg Patient ?? BSA: ?2.51 m^2 ?BMI: ?35.95 kg/m^2 MR # ? [id number] ? Channel Cementer Insole Machine ? Kandis Mcqueen RVT Accession # ?[id number] ?? Interpreting Physician ??Harjinder Levy Referring ?Referring Physician ? FIDEL TARUN Nurse Practitioner Procedure Type of Study: Veins: Lower Extremities DVT Study, Venous Scan Lower Bilateral. Indications for Study:Pulmonary Embolism. Patient Status:In Patient. Technical Quality:Limited visualization. Limitation reason:edema. ??- Critical Result:Dung Pérez RN at 2:36PM. Conclusions Summary Chronic deep vein thrombosis of the bilateral leg involving the popliteal veins. No evidence of superficial venous thrombosis in the right lower extremity. Superficial phlebitis of the left greater saphenous vein. Signature Findings: Right Impression: ?Left Impression: The common femoral, femoral and ?The common femoral, femoral and tibial veins demonstrate normal ?tibial veins demonstrate normal compressibility and augmentation. ?compressibility and augmentation. The popliteal vein demonstrates ?The popliteal vein demonstrates partial compressibility. ? partial compressibility. Normal compressibility of the great ??Normal compressibility of the great saphenous vein. ?saphenous vein proximally. Normal compressibility of the small ??The great saphenous vein mid thigh to saphenous vein. ?knee demonstrates partial ?compressibility. ?Normal compressibility of the small ?saphenous vein. Risk Factors History + +----+--------+ !Diagnosis ? !Date!Comments! + +----+--------+ !Pulmonary Embolism ?! ?! ?! + +----+--------+ ??- The patient's risk factor(s) include: obesity. Velocities are measured in cm/s ; Diameters are measured in cm Right Lower Extremities DVT Study Measurements Right 2D Measurements + + + + + !Location ?!Visualized!Compressibility!Thrombosis! + + + + + !Common Femoral ?!Yes ? !Yes ?!None ?! + + + + + !Prox Femoral ?!Yes ? !Yes ?!None ?! + + + + + !Mid Femoral ? !Yes ? !Yes ?!None ?! + + + + + !Dist Femoral ?!Yes ? !Yes ?!None ?! + + + + + !Deep Femoral ?!No ?! ? ! ?! + + + + + !Popliteal ? !Yes ? !Partial ?!Chronic ?? ! + + + + + !Sapheno Femoral Junction ?!Yes ? !Yes ?!None ?! + + + + + !PTV ? !Partial ?? !Yes ?!None ?! + + + + + !Peroneal ?!Partial ?? !Yes ?!None ?! + + + + + !Gastroc ? !Yes ? !Yes ?!None ?! + + + + + !GSV Thigh ? !Yes ? !Yes ?!None ?! + + + + + !GSV Knee ?!Yes ? !Yes ?!None ?! + + + + + !GSV Ankle ? !Yes ? !Yes ?!None ?! + + + + + !SSV ? !Yes ? !Yes ?!None ?! + + + + + Right Doppler Measurements + +------+------+ + !Location ? !Signal!Reflux!Reflux (msec) ? ! + +------+------+ + !Common Femoral ? !Phasic! ?! ?! + +------+------+ + !Prox Femoral ? !Phasic! ?! ?! + +------+------+ + !Popliteal ?!Phasic! ?! ?! + +------+------+ + Left Lower Extremities DVT Study Measurements Left 2D Measurements + + + + + !Location ?!Visualized!Compressibility!Thrombosis! + + + + + !Common Femoral ?!Yes ? !Yes ?!None ?! + + + + + !Prox Femoral ?!Yes ? !Yes ?!None ?! + + + + + !Mid Femoral ? !Yes ? !Yes ?!None ?! + + + + + !Dist Femoral ?!Yes ? !Yes ?!None ?! + + + + + !Deep Femoral ?!No ?! ? ! ?! + + + + + !Popliteal ? !Yes ? !Partial ?!Chronic ?? ! + + + + + !Sapheno Femoral Junction ?!Yes ? !Yes ?!None ?! + + + + + !PTV ? !Partial ?? !Yes ?!None ?! + + + + + !Peroneal ?!Partial ?? !Yes ?!None ?! + + + + + !Gastroc ? !Yes ? !Yes ?!None ?! + + + + + !GSV Thigh ? !Yes ? !Yes ?!None ?! + + + + + !GSV Knee ?!Yes ? !Partial ?!Chronic ?? ! + + + + + !GSV Ankle ? !Yes ? !Yes ?!None ?! + + + + + !SSV ? !Yes ? !Yes ?!None ?! + + + + + Left Doppler Measurements + +------+------+ + !Location ? !Signal!Reflux!Reflux (msec) ? ! + +------+------+ + !Common Femoral ? !Phasic! ?! ?! + +------+------+ + !Prox Femoral ? !Phasic! ?! ?! + +------+------+ + !Popliteal ?!Phasic! ?! ?! + +------+------+ + Procedure Note Harjinder Levy MD - 09/04/2018 [facility] Vascular Lower Extremities DVT Study Procedure Patient Name LUIS Escobar Date of Study 09/03/2018 Date of 1970 Gender Female Age 48 year(s) Race Room Number 0121 Height: 74 inch, 187.96 cm Corporate ID # [id number] Weight: 280 pounds, 127 kg Patient BSA: 2.51 m^2 BMI: 35.95kg/m^2 MR # [id number] Channel Cementer Insole Machine Kandis Mcqueen RVT Interpreting Physician Harjinder Levy Referring Referring Physician FIDEL GUERRERO Nurse Practitioner Procedure Type of Study: Veins: Lower Extremities DVT Study, Venous Scan Lower Bilateral. Indications for Study:Pulmonary Embolism. Patient Status:In Patient. Technical Quality:Limited visualization. Limitation reason:edema. - Critical Result:Dung Pérez RN at 2:36PM. Conclusions Summary Chronic deep vein thrombosis of the bilateral leg involving thepopliteal veins. No evidence of superficial venous thrombosis in the right lowerextremity. Superficial phlebitis of the left greater saphenous vein. Signature Findings: Right Impression: Left Impression: The common femoral, femoral and The common femoral, femoral and tibial veins demonstrate normal tibial veins demonstrate normal compressibility and augmentation. compressibility and augmentation. The popliteal vein demonstrates The popliteal vein demonstrates partial compressibility. partial compressibility. Normal compressibility of the great Normal compressibility of thegreat saphenous vein. saphenous vein proximally. Normal compressibility of the small The great saphenous vein mid thighto saphenous vein. knee demonstrates partial compressibility. Normal compressibility of thesmall saphenous vein. Risk Factors History + +----+--------+ !Diagnosis!Date!Comments! + +----+--------+ !Pulmonary Embolism ! !! + +----+--------+ - The patient's risk factor(s) include: obesity. Velocities are measured in cm/s ; Diameters are measured in cm Right Lower Extremities DVT Study Measurements Right 2D Measurements + + + + + !Location!Visualized!Compressibility!Thrombosis! + + + + + !Common Femoral !Yes !Yes !None! + + + + + !Prox Femoral !Yes !Yes !None! + + + + + !Mid Femoral !Yes !Yes !None! + + + + + !Dist Femoral !Yes !Yes !None! + + + + + !Deep Femoral !No ! !! + + + + + !Popliteal !Yes !Partial !Chronic! + + + + + !Sapheno Femoral Junction !Yes !Yes !None! + + + + + !PTV !Partial !Yes !None! + + + + + !Peroneal !Partial !Yes !None! + + + + + !Gastroc !Yes !Yes !None! + + + + + !GSV Thigh !Yes !Yes !None! + + + + + !GSV Knee !Yes !Yes !None! + + + + + !GSV Ankle !Yes !Yes !None! + + + + + !SSV !Yes !Yes !None! + + + + + Right Doppler Measurements + +------+------+ + !Location !Signal!Reflux!Reflux (msec)! + +------+------+ + !Common Femoral !Phasic! !! + +------+------+ + !Prox Femoral !Phasic! !! + +------+------+ + !Popliteal !Phasic! !! + +------+------+ + Left Lower Extremities DVT Study Measurements Left 2D Measurements + + + + + !Location!Visualized!Compressibility!Thrombosis! + + + + + !Common Femoral !Yes !Yes !None! + + + + + !Prox Femoral !Yes !Yes !None! + + + + + !Mid Femoral !Yes !Yes !None! + + + + + !Dist Femoral !Yes !Yes !None! + + + + + !Deep Femoral !No ! !! + + + + + !Popliteal !Yes !Partial !Chronic! + + + + + !Sapheno Femoral Junction !Yes !Yes !None! + + + + + !PTV !Partial !Yes !None! + + + + + !Peroneal !Partial !Yes !None! + + + + + !Gastroc !Yes !Yes !None! + + + + + !GSV Thigh !Yes !Yes !None! + + + + + !GSV Knee !Yes !Partial !Chronic! + + + + + !GSV Ankle !Yes !Yes !None! + + + + + !SSV !Yes !Yes !None! + + + + + Left Doppler Measurements + +------+------+ + !Location !Signal!Reflux!Reflux (msec)! + +------+------+ + !Common Femoral !Phasic! !! + +------+------+ + !Prox Femoral !Phasic! !! + +------+------+ + !Popliteal !Phasic! !! + +------+------+ + Authorizing ProviderResult TypeResult StatusYousmahsa Harris MDRito VASCULAR ORDERABLESFinal Result * (ABNORMAL) Troponin (09/03/2018 10:10 AM EDT) Only the most recent of3 resultswithin the time period is included. ComponentValueRef RangeTest MethodAnalysis TimePerformed AtPathologist Signature Troponin, High Wrintrbpmiw30(HH)0 - 14 ng/L09/03/2018 10:10 AM EDContactualComment: ? High Sensitivity Troponin values cannot be compared with other Troponin methodologies. ? Patients with high levels of Biotin oral intake (i.e >5mg/day) may have falsely decreased Troponin levels. Samples collected within 8 hours of biotin intake may require additional information for diagnosis. Previous Alert Value Reported Troponin TNOT REPORTED<0.03 ng/mL09/03/2018 10:10 AM [facility]Store[facility] Troponin InterpNOT ZKFCPKRC95/27/2019 10:10 AM EDStoreAge LABORATORIESSpecimen (Source)Anatomical Location / LateralityCollection Method / VolumeCollection TimeReceived Time09/03/2018 10:10 AM EDT09/03/2018 10:15 AM EDT Narrative Authorizing ProviderResult TypeResult StatusRaheel Tarun MDCHEMISTRY ORDERABLES Final ResultPerforming OrganizationAddressCity/State/ZIP CodePhone Number [employer] [facility] [place] [address], [facility] [place] [phone] * (ABNORMAL) CBC (09/03/2018 10:10 AM EDT) Only the most recent of4 resultswithin the time period is included. ComponentValueRef RangeTest MethodAnalysis TimePerformed AtPathologist Signature WBC8.93.5 - 11.3 k/uL09/03/2018 10:10 AM EDTMERCY LABORATORIESRBC4.123.95 - 5.11 m/uL09/03/2018 10:10 AM EDTMERCY WIBOMHKZDDSGUmgtpfieie16.7(L)11.9 - 15.1 g/dL 09/03/2018 10:10 AM EDTMERCY VHRHZUGFYWAYFiuqnzrjhu61.736.3 - 47.1 %09/03/2018 10:10 AM EDTMERCY XHCHHULXZDKNFKX09.182.6 - 102.9 fL09/03/2018 10:10 AM EDTMERCY FVLQXDOFSGTBOLQ29.425.2 - 33.5 pg09/03/2018 10:10 AM EDTMERCY LABORATORIESMCHC 31.928.4 - 34.8 g/dL09/03/2018 10:10 AM EDTMERCY LWALQGUDMSLAQAK50.411.8 - 14.4 %09/03/2018 10:10 AM EDTMERCY GYUMAOFXOSZSPqvspwtgu020592 - 453 k/uL09/03/2018 10:10 AM EDTMERCY IPJXQBWYXDQUQSR46.98.1 - 13.5 fL09/03/2018 10:10 AM EDTMERCY LABORATORIESNRBC Automated0.00.0 per 100 WBC09/03/2018 10:10 AM EDTMERCY LABORATORIESSpecimen (Source)Anatomical Location / LateralityCollection Method / VolumeCollection TimeReceived Time09/03/2018 10:10 AM EDT09/03/2018 10:15 AM EDT Narrative Authorizing ProviderResult TypeResult StatusRaheel Tarun MDHEMATOLOGY ORDERABLES Final ResultPerforming OrganizationAddressCity/State/[place] [address], [facility] [place] [phone] * ECHO Complete 2D W Doppler W Color (09/03/2018 8:15 AM EDT)ComponentValueRef RangeTest MethodAnalysis TimePerformed AtPathologist SignatureLeft Ventricular Ejection Kbdfhrwe39IQ LVEFLVEF MODALITYECHOMH LVEFSpecimen (Source)Anatomical Location / LateralityCollection Method / VolumeCollection TimeReceived Time 09/03/2018 8:15 AM EDT Narrative MH LVEF - 09/03/2018 3:01 PM EDT Transthoracic Echocardiography Report (TTE) Patient Name LUIS Escobar Date of Study ? 09/03/2018 Date of ?1970 ??Gender ?Female Age ?48 year(s) ??Race ? Room Number ??0121 ?Height: ? 74 inch, 187.96 cm Corporate ID [id number] ?Weight: ? 280 pounds, 127 kg # Patient Acct [id number] ?? BSA: ? 2.51 m^2 ? BMI: ? 35.95 kg/m^2 # MR # ? [id number] ? Channel Cementer Insole Machine ? Suzie Rodriguez ?? Interpreting Physician ?Sara Garrison Fellow ? Referring Nurse ?Practitioner Interpreting ? Referring Physician ? Daniel Harris MD Fellow Additional Comments Technically difficult study, patient body habitus. Patient supine and unable to be adequately repositioned. Type of Study TTE procedure:2D Echocardiogram, M-Mode, Doppler, Color Doppler. Procedure Date Date: 09/03/2018 Start: 08:15 AM Study Location: [facility] Technical Quality: Adequate visualization Indications:LV Function and Pulmonary embolus. History / Tech. Comments: Procedure explained to patient. PMHx: Gastric bypass surgery Patient Status: Inpatient Height: 74 inches Weight: 280.01 pounds BSA: 2.51 m^2 BMI: 35.95 kg/m^2 HR: 56 bpm CONCLUSIONS Summary Left ventricle is normal in size, normal wall thickness, global left ventricular systolic function is normal, calculated ejection fraction is 60% (by 3D Heart Model.) Evidence of moderate (grade II) diastolic dysfunction. Small pericardial effusion noted posteriorly (measuring between 0.65cm-1.0cm.) Signature FINDINGS Left Atrium Left atrium is mildly dilated. Inter-atrial septum is intact with no evidence for an atrial septal defect, by color doppler. Left Ventricle Left ventricle is normal in size, normal wall thickness, global left ventricular systolic function is normal, calculated ejection fraction is 60% (by 3D Heart Model.) Evidence of moderate (grade II) diastolic dysfunction. Right Atrium Right atrium is normal in size. Right Ventricle Normal right ventricular size and function. Mitral Valve Normal mitral valve structure. No evidence of mitral regurgitation. Aortic Valve Aortic valve is trileaflet. No evidence of aortic insufficiency or stenosis. Tricuspid Valve Tricuspid valve was not well visualized. No tricuspid regurgitation was seen. Insignificant tricuspid regurgitation, unable to estimate RVSP. Pulmonic Valve Pulmonic valve not well visualized but Doppler velocities are normal. Pericardial Effusion Small pericardial effusion noted posteriorly (measuring between 0.65cm-1.0cm.) Anterior echo free space suggestive of fat pad. Miscellaneous Normal aortic root dimension. E/E'' = 12.75 . IVC Increased diameter, but still has inspiratory variation suggesting upper normal or mildly elevated RA filling pressure. M-mode / 2D Measurements & Calculations: LVIDd:4.8 cm(3.7 - 5.6 cm) ?Diastolic Volume:85.5 ml IVSd:0.9 cm(0.6 - 1.1 cm) ? Systolic Volume:34.3 ml LVPWd:0.9 cm(0.6 - 1.1 cm) ?Aortic Root:3.4 cm(2.0 - 3.7 cm) ? LA Dimension: 4.3 cm(1.9 - 4.0 cm) Calculated LVEF (%): 59.88 % ?LA volume/Index: 85.09 ml /34m^2 ? LVOT:2.4 cm ? RVDd:3.4 cm Mitral: ? Aortic Valve Area (P1/2-Time): 3.73 cm^2 ? Peak Velocity: 1.23 m/s Peak E-Wave: 1.01 m/s ? Mean Velocity: 0.88 m/s Peak A-Wave: 0.86 m/s ? Peak Gradient: 6.05 mmHg E/A Ratio: 1.18 ? Mean Gradient: 4 mmHg Peak Gradient: 4.08 mmHg Mean Gradient: 2 mmHg Deceleration Time: 151 msec ? Area (continuity): 3.34 cm^2 P1/2t: 59 msec ?AV VTI: 28.6 cm Area (continuity): 2.58 cm^2 Mean Velocity: 0.56 m/s ? Pulmonic: ? Peak Velocity: 0.77 m/s ? Peak Gradient: 2.38 mmHg Diastology / Tissue Doppler Septal Wall E' velocity:0.08 m/s Septal Wall E/E':13.4 Lateral Wall E' velocity:0.08 m/s Lateral Wall E/E':12.1 Procedure Note Sara Garrison S, DO / Result, Unknown Provider - 09/03/2018 Transthoracic Echocardiography Report (TTE) Patient Name LUIS Escobar Date of Study 09/03/2018 Date of 1970 Gender Female Age 48 year(s) Race Room Number 0121 Height: 74 inch, 187.96 cm Corporate ID [id number] Weight: 280 pounds, 127 kg # Patient Acct [id number] BSA: 2.51 m^2 BMI: 35.95kg/m^2 # MR # [id number] Channel Cementer Insole Machine Suzie Rodriguez Interpreting Physician Sara Garrison Fellow Referring Nurse Practitioner Interpreting Referring Physician Daniel Harris MD Fellow Additional Comments Technically difficult study, patient body habitus. Patient supine and unable to be adequately repositioned. Type of Study TTE procedure:2D Echocardiogram, M-Mode, Doppler, Color Doppler. Procedure Date Date: 09/03/2018 Start: 08:15 AM Study Location: [facility] Technical Quality: Adequate visualization Indications:LV Function and Pulmonary embolus. History / Tech. Comments: Procedure explained to patient. PMHx: Gastric bypass surgery Patient Status: Inpatient Height: 74 inches Weight: 280.01 pounds BSA: 2.51 m^2 BMI: 35.95 kg/m^2 HR: 56 bpm CONCLUSIONS Summary Left ventricle is normal in size, normal wall thickness, global left ventricular systolic function is normal, calculated ejection fraction is60% (by 3D Heart Model.) Evidence of moderate (grade II) diastolic dysfunction. Small pericardial effusion noted posteriorly (measuring between 0.65cm-1.0cm.) Signature 11:23 AM FINDINGS Left Atrium Left atrium is mildly dilated. Inter-atrial septum is intact with no evidence for an atrial septaldefect, by color doppler. Left Ventricle Left ventricle is normal in size, normal wall thickness, global left ventricular systolic function is normal, calculated ejection fraction is60% (by 3D Heart Model.) Evidence of moderate (grade II) diastolic dysfunction. Right Atrium Right atrium is normal in size. Right Ventricle Normal right ventricular size and function. Mitral Valve Normal mitral valve structure. No evidence of mitral regurgitation. Aortic Valve Aortic valve is trileaflet. No evidence of aortic insufficiency or stenosis. Tricuspid Valve Tricuspid valve was not well visualized. No tricuspid regurgitation was seen. Insignificant tricuspid regurgitation, unable to estimate RVSP. Pulmonic Valve Pulmonic valve not well visualized but Doppler velocities are normal. Pericardial Effusion Small pericardial effusion noted posteriorly (measuring between 0.65cm-1.0cm.) Anterior echo free space suggestive of fat pad. Miscellaneous Normal aortic root dimension. E/E'' = 12.75 . IVC Increased diameter, but still has inspiratory variation suggestingupper normal or mildly elevated RA filling pressure. M-mode / 2D Measurements & Calculations: LVIDd:4.8 cm(3.7 - 5.6 cm) Diastolic Volume:85.5 ml IVSd:0.9 cm(0.6 - 1.1 cm) Systolic Volume:34.3 ml LVPWd:0.9 cm(0.6 - 1.1 cm) Aortic Root:3.4 cm(2.0 - 3.7 cm) LA Dimension: 4.3 cm(1.9 - 4.0 cm) Calculated LVEF (%): 59.88 % LA volume/Index: 85.09 ml /34m^2 LVOT:2.4 cm RVDd:3.4 cm Mitral: Aortic Valve Area (P1/2-Time): 3.73 cm^2 Peak Velocity: 1.23 m/s Peak E-Wave: 1.01 m/s Mean Velocity: 0.88 m/s Peak A-Wave: 0.86 m/s Peak Gradient: 6.05 mmHg E/A Ratio: 1.18 Mean Gradient: 4 mmHg Peak Gradient: 4.08 mmHg Mean Gradient: 2 mmHg Deceleration Time: 151 msec Area (continuity): 3.34 cm^2 P1/2t: 59 msec AV VTI: 28.6 cm Area (continuity): 2.58 cm^2 Mean Velocity: 0.56 m/s Pulmonic: Peak Velocity: 0.77 m/s Peak Gradient: 2.38 mmHg Diastology / Tissue Doppler Septal Wall E' velocity:0.08 m/s Septal Wall E/E':13.4 Lateral Wall E' velocity:0.08 m/s Lateral Wall E/E':12.1 Authorizing ProviderResult TypeResult StatusYousmahsa SIMON ORDERABLES Edited Result - FinalPerforming OrganizationAddressCity/State/ZIP CodePhone Number [facility] LVEF * Protime-INR (09/03/2018 5:00 AM EDT) Only the most recent of3 resultswithin the time period is included. ComponentValueRef RangeTest MethodAnalysis TimePerformed AtPathologist Signature Zcyqpsp53.69.0 - 12.0 sec09/03/2018 5:00 AM EDTMERCY LABORATORIESINR1.0 09/03/2018 5:00 AM EDTMERCY LABORATORIESComment: ? Therapeutic Range: Moderate Anticoagulant Intensity: ?? INR = 2.0-3.0 High Anticoagulant Intensity: ?? INR = 2.5-3.5 ? Specimen (Source)Anatomical Location / LateralityCollection Method / Volume Collection TimeReceived Time09/03/2018 5:00 AM EDT09/03/2018 5:04 AM EDT Narrative Authorizing ProviderResult TypeResult StatusYousmahsa Harris MDHEMATOLOGY ORDERABLESFinal ResultPerforming OrganizationAddressty/State/ZIP CodePhone Number [address] [phone] * (ABNORMAL) MRSA DNA Probe, Nasal (09/03/2018 4:55 AM EDT)ComponentValueRef RangeTest MethodAnalysis TimePerformed AtPathologist SignatureSpecimen Description.NASAL SWAB09/03/2018 4:55 AM EDTMERCY LABORATORIESMRSA, DNA, Nasal POSITIVE: MRSA DNA detected by nucleic acid amplification.(A)NEGATIVE: MRSA DNA not detected by nucleic acid ulzcoohwwtx35/27/2019 4:55 AM EDTMERCY LABORATORIESComment: ? Results should be used as an adjunct to nosocomial control efforts to identify patients needing enhanced precautions. ?? The test is not intended to identify patients with staphylococcal infections. ??Results should not be used to guide or monitor treatment for MRSA infections. Specimen (Source)Anatomical Location / LateralityCollection Method / Volume Collection TimeReceived OkgyKxlns27/27/2019 4:55 AM EDT09/03/2018 4:56 AM EDT Narrative Authorizing ProviderResult TypeResult StatusLuis Halina Lee MDMICROBIOLOGY - GENERAL ORDERABLESFinal ResultPerforming OrganizationAddressty/State/ZIP Code Phone Number [address] [phone] * TSH with Reflex (09/03/2018 4:54 AM EDT) Only the most recent of3 resultswithin the time period is included. ComponentValueRef RangeTest MethodAnalysis TimePerformed AtPathologist Signature TSH1.300.30 - 5.00 mIU/L09/03/2018 4:54 AM EDTMERCY LABORATORIESSpecimen (Source)Anatomical Location / LateralityCollection Method / VolumeCollection TimeReceived Time09/03/2018 4:54 AM EDT09/03/2018 4:59 AM EDT Narrative Authorizing ProviderResult TypeResult StatusDaniel Harris MDCHEMISTRY ORDERABLESFinal ResultPerforming OrganizationAddressCity/State/[place] [address], [facility] [place] [phone] * Lactic acid, plasma (09/03/2018 4:54 AM EDT)ComponentValueRef RangeTest Method Analysis TimePerformed AtPathologist SignatureLactic AcidNOT REPORTEDmmol/L 09/03/2018 4:54 AM EDTMERCY LABORATORIESLactic Acid, Whole Blood1.00.7 - 2.1 mmol/L09/03/2018 4:54 AM EDTMERCY LABORATORIESSpecimen (Source)Anatomical Location / LateralityCollection Method / VolumeCollection TimeReceived Time BLOOD SPECIMEN / Fhgywwn0009/03/2018 4:54 AM EDT09/03/2018 4:59 AM EDT Narrative Authorizing ProviderResult TypeResult StatusDaniel Harris MDCHEMISTRY ORDERABLESFinal ResultPerforming OrganizationAddressCity/State/ZIP CodePhone Number [facility] [employer] [address] [place] [address], [facility] [place] [phone] * (ABNORMAL) Hepatic function panel (09/03/2018 4:54 AM EDT)ComponentValueRef RangeTest MethodAnalysis TimePerformed AtPathologist SignatureAlbumin2.9(L)3.5 - 5.2 g/dL09/03/2018 4:54 AM EDTMERCY LABORATORIESAlkaline Jndryepopfw9952 - 104 U/L09/03/2018 4:54 AM EDTMERCY HNIPBTIPLASDTPF69 - 33 U/L09/03/2018 4:54 AM EDTMERCY EBKPJXROMJMTXON27<32 U/L09/03/2018 4:54 AM EDTMERCY LABORATORIES Total Bilirubin0.320.3 - 1.2 mg/dL09/03/2018 4:54 AM EDTMERCY LABORATORIES Bilirubin, Direct0.10<0.31 mg/dL09/03/2018 4:54 AM EDTMERCY LABORATORIES Bilirubin, Indirect0.220.00 - 1.00 mg/dL09/03/2018 4:54 AM EDTMERCY LABORATORIESTotal Protein7.06.4 - 8.3 g/dL09/03/2018 4:54 AM EDTMERCY LABORATORIESGlobulinNOT REPORTED1.5 - 3.8 g/dL09/03/2018 4:54 AM EDTMERCY LABORATORIESAlbumin/Globulin Ratio0.7(L)1.0 - 2.507 4:54 AM EDTMERCY LABORATORIESSpecimen (Source)Anatomical Location / LateralityCollection Method / VolumeCollection TimeReceived TimeBLOOD SPECIMEN / Gaxfnay9209/03/2018 4:54 AM EDT09/03/2018 4:59 AM EDT Narrative Authorizing ProviderResult TypeResult StatusYousuf Narayanan Steven MDCHEMISTRY ORDERABLESFinal ResultPerforming OrganizationAddressCity/State/ZIP CodePhone Number [employer] [address] [place] [address], [facility] [place] [phone] * EKG REPORT (09/03/2018 2:49 AM EDT) Narrative Authorizing ProviderResult TypeResult StatusHpf ScanningECG ORDERABLESFinal Result * EKG 12 Lead (09/03/2018 2:49 AM EDT) Only the most recent of2 resultswithin the time period is included. ComponentValueRef RangeTest MethodAnalysis TimePerformed AtPathologist Signature Ventricular Klzz08DOZOJXJ STV MUSEAtrial Zwjr77LKWKBOC STV MUSEP-R Ivrqgtdx275cm MHPN STV MUSEQRS Bjrxeqji29reBGIN STV MUSEQ-T Rnkfezeq123qqOUCR STV MUSEQTc Calculation ([place]azett)459msMHPN STV MUSEP Purk30xzntihqJOGL STV MUSER [place]-7 degreesMHPN STV MUSET Zpxb80xsfeundRZCZ STV MUSESpecimen (Source)Anatomical Location / LateralityCollection Method / VolumeCollection TimeReceived Time 09/03/2018 2:49 AM EDT Narrative MHPN STV MUSE - 09/05/2018 9:25 AM EDT Sinus rhythm with Premature atrial complexes with Aberrant conduction Otherwise normal ECG When compared with ECG of 06-MAY-2017 13:49, Aberrant conduction is now Present Procedure Note Neal Cortez MD - 09/05/2018 Sinus rhythm with Premature atrial complexes with Aberrant conduction Otherwise normal ECG When compared with ECG of 06-MAY-2017 13:49, Aberrant conduction is now Present Authorizing ProviderResult TypeResult Jai Powell MDECG ORDERABLES Final ResultPerforming OrganizationAddressCity/State/ZIP CodePhone Number MHPN STV MUSE * (ABNORMAL) Brain Natriuretic Peptide (09/03/2018 2:23 AM EDT)ComponentValueRef RangeTest MethodAnalysis TimePerformed AtPathologist SignaturePro-BNP2,284(H) <300 pg/mL09/03/2018 2:23 AM EDTMERCY LABORATORIESComment:Pro-BNP results cannot be compared to BNP results.BNP InterpretationPro-BNP Reference Range: 09/03/2018 2:23 AM EDTMERCY LABORATORIESComment: ? Rule Out: <300 ? [place] Zone: Age <50 300-450 Age 50-75 ?? 300-900 Age >75 300-1800 Usually represents mild to moderate HF but other cardiopulmonary causes cannot be ruled out. ? Rule In: Age <50 >450 Age 50-75 >900 Age >75 >1800 Specimen (Source)Anatomical Location / LateralityCollection Method / Volume Collection TimeReceived TimeBLOOD SPECIMEN / Ucbdbrb8309/03/2018 2:23 AM EDT 09/03/2018 2:28 AM EDT Narrative Authorizing ProviderResult TypeResult Jai Powell MDCHEMISTRY ORDERABLESFinal ResultPerforming OrganizationAddressCity/State/[place] [address], [facility] [place] [phone] * (ABNORMAL) Basic Metabolic Panel (09/03/2018 2:23 AM EDT) Only the most recent of4 resultswithin the time period is included. ComponentValueRef RangeTest MethodAnalysis TimePerformed AtPathologist Signature Dxzuzbo081(H)70 - 99 mg/dL09/03/2018 2:23 AM EDTMERCY YSNKVECKGVXYVTY159 - 20 mg/dL09/03/2018 2:23 AM EDTMERCY LABORATORIESCreatinine0.570.50 - 0.90 mg/dL 09/03/2018 2:23 AM EDTMERCY LABORATORIESBUN/Creatinine RatioNOT REPORTED9 - 20 09/03/2018 2:23 AM EDTMERCY LABORATORIESCalcium8.78.6 - 10.4 mg/dL09/03/2018 2:23 AM EDTMERCY ZAGFBNUBWAKXAxnfrz364026 - 144 mmol/L09/03/2018 2:23 AM EDT MERCZoodak LABORATORIESPotassium3.5(L)3.7 - 5.3 mmol/L09/03/2018 2:23 AM EDTMERCY DFFWKVEZNRPFEqmepxtx76123 - 107 mmol/L09/03/2018 2:23 AM EDTMERCY LABORATORIES PU27119 - 31 mmol/L09/03/2018 2:23 AM EDTMERCY LABORATORIESAnion Bgg674 - 17 mmol/L09/03/2018 2:23 AM EDTMERCY LABORATORIESGFR Non->60>60 mL/min09/03/2018 2:23 AM EDTMERCY LABORATORIESGFR >60>60 mL/min 09/03/2018 2:23 AM EDTMERCY LABORATORIESGFR Gedulqr0109/03/2018 2:23 AM EDTMERCY LABORATORIESComment: Average GFR for 40-49 years old: 99 mL/min/1.73sq m Chronic Kidney Disease: <60 mL/min/1.73sq m Kidney failure: <15 mL/min/1.73sq m ? eGFR calculated using average adult body mass. Additional eGFR calculator available at: ? http://www.[employer]/multiple_crcl_2012.htm ? GFR StagingNOT PDDMDSBC35/27/2019 2:23 AM EDTMERCY LABORATORIESSpecimen (Source) Anatomical Location / LateralityCollection Method / VolumeCollection Time Received TimeBLOOD SPECIMEN / Kqepsma2009/03/2018 2:23 AM EDT09/03/2018 2:28 AM EDT Narrative Authorizing ProviderResult TypeResult StatusMichael Powell MDCHEMISTRY ORDERABLESFinal ResultPerforming OrganizationAddressCity/State/ZIP CodePhone Number [facility] [address] [place] [address], [facility] [place] [phone] * (ABNORMAL) Urinalysis (08/30/2018 10:20 AM EDT) Only the most recent of2 resultswithin the time period is included. ComponentValueRef RangeTest MethodAnalysis TimePerformed AtPathologist Signature Color, YVOZSDDONYLYBV77/23/2019 10:20 AM EDTMERCY LABORATORIESTurbidity UATURBID (A)CLEAR08/30/2018 10:20 AM EDTMERCY LABORATORIESGlucose, UrNEGATIVENEGATIVE 08/30/2018 10:20 AM EDTMERCY LABORATORIESBilirubin UrineNEGATIVENEGATIVE 08/30/2018 10:20 AM EDTMERCY LABORATORIESKetones, UrineNEGATIVENEGATIVE 08/30/2018 10:20 AM EDTMERCY LABORATORIESSpecific [place], UA1.0081.005 - 1.030 08/30/2018 10:20 AM EDTMERCY LABORATORIESUrine HgbSMALL(A)UFHEIRVL13/23/2019 10:20 AM EDTMERCY LABORATORIESpH, UA6.05.0 - 8. 10:20 AM EDTMERCY LABORATORIESProtein, UATRACE(A)SZEHFHMA34/23/2019 10:20 AM EDTMERCY LABORATORIES Urobilinogen, TfztfVrdcvwGwhaul41/23/2019 10:20 AM EDTMERCY LABORATORIESNitrite, UsuudEMTRJISDIXLKEDCS89/23/2019 10:20 AM EDTMERCY LABORATORIESLeukocyte Esterase, UrineLARGE(A)QSQSCTMA88/23/2019 10:20 AM EDTMERCY LABORATORIES Urinalysis CommentsNOT WLMZGBIB97/23/2019 10:20 AM EDTMERCY LABORATORIESSpecimen (Source)Anatomical Location / LateralityCollection Method / VolumeCollection TimeReceived TimeUrine (substance) (Urine)08/30/2018 9:40 AM EDTComment:URINE - HART INSERTION Pre-op diagnosis: CERVICAL STENOSIS Narrative Authorizing ProviderResult TypeResult StatusZubair Ahammad DOURINE ORDERABLES Edited Result - FinalPerforming OrganizationAddressCity/State/ZIP CodePhone Number [employer] [address] [place] [address], [facility] [place] [phone] * TYPE AND SCREEN (08/30/2018 7:00 AM EDT)ComponentValueRef RangeTest Method Analysis TimePerformed AtPathologist SignatureExpiration Date09/02/2018 08/30/2018 7:00 AM EDTMERCY LABORATORIESArm Band NumberBE [id number] 7:00 AM EDTMERCY LABORATORIESABO/RhAB NTOUCBPL51/23/2019 7:00 AM EDTMERCY LABORATORIESAntibody PytjrdITOBFZMD09/23/2019 7:00 AM EDTMERCY LABORATORIES Specimen (Source)Anatomical Location / LateralityCollection Method / Volume Collection TimeReceived TimeBLOOD SPECIMEN / Jqizxia8008/30/2018 7:00 AM EDT 08/30/2018 7:46 AM EDT Narrative Authorizing ProviderResult TypeResult StatusZubair Ahammad DOBLOOD BANK TEST ORDERABLESFinal ResultPerforming OrganizationAddressCity/State/ZIP CodePhone Number [employer] [address] [place] [address], [facility] [place] [phone] * MRI THORACIC SPINE WO CONTRAST (06/01/2018 10:54 AM EDT)Anatomical Region LateralityModalityC-spine, T-spine, L-spine, ChestMagnetic ResonanceSpecimen (Source)Anatomical Location / LateralityCollection Method / VolumeCollection TimeReceived Time06/01/2018 11:16 AM EDT Impressions 06/01/2018 3:12 PM EDT 1. Multiple levels with small disc herniations in the thoracic spine. Please see body of the report for details. 2. ??Moderate spinal canal stenosis at T11-T12. ??Severe left and moderate right neural foraminal narrowing at T11-T12. 3. ??Small bilateral pleural effusions. Narrative 06/01/2018 3:12 PM EDT EXAMINATION: MRI OF THE THORACIC SPINE WITHOUT CONTRAST ??06/01/2018 9:46 am TECHNIQUE: Multiplanar multisequence MRI of the thoracic spine was performed without the administration of intravenous contrast. COMPARISON: None. HISTORY: ORDERING SYSTEM PROVIDED HISTORY: Spinal stenosis of lumbar region, unspecified whether neurogenic claudication present FINDINGS: BONES/ALIGNMENT: There is normal alignment of the spine. The vertebral body heights are maintained. The bone marrow signal appears unremarkable. SPINAL CORD: No abnormal cord signal is seen. SOFT TISSUES: No paraspinal mass identified. DEGENERATIVE CHANGES: T3-T4: Small central disc protrusion at T3-T4 without significant spinal canal stenosis or neural foraminal narrowing. T6-T7: Small right paracentral disc protrusion at T6-T7 without significant spinal canal stenosis or neural foraminal narrowing. T7-T8: Small focal right paracentral disc protrusion at T7-T8 has mass effect on the anterior contour of the cord. ??No significant spinal canal stenosis. Bilateral neural foramina are patent. T10-T11: Mild broad-based disc protrusion. ??Mild spinal canal stenosis. ??Mild bilateral neural foraminal narrowing. T11-T12: Right paracentral disc protrusion has mass effect on the anterior contour of the cord. ??Moderate spinal canal stenosis at this level. ??Severe left and moderate right neural foraminal narrowing at this level. T12-L1: Mild disc bulge. ??No significant spinal canal stenosis. ??Bilateral neural foramina are patent. Multiple bilateral renal cysts. ??Small bilateral pleural effusions. Procedure Note Flory Alcantara MD - 06/01/2018 EXAMINATION: MRI OF THE THORACIC SPINE WITHOUT CONTRAST 06/01/2018 9:46 am TECHNIQUE: Multiplanar multisequence MRI of the thoracic spine was performed withoutthe administration of intravenous contrast. COMPARISON: None. HISTORY: ORDERING SYSTEM PROVIDED HISTORY: Spinal stenosis of lumbar region, unspecified whether neurogenic claudication present FINDINGS: BONES/ALIGNMENT: There is normal alignment of the spine. The vertebralbody heights are maintained. The bone marrow signal appears unremarkable. SPINAL CORD: No abnormal cord signal is seen. SOFT TISSUES: No paraspinal mass identified. DEGENERATIVE CHANGES: T3-T4: Small central disc protrusion at T3-T4 without significant spinal canal stenosis or neural foraminal narrowing. T6-T7: Small right paracentral disc protrusion at T6-T7 withoutsignificant spinal canal stenosis or neural foraminal narrowing. T7-T8: Small focal right paracentral disc protrusion at T7-T8 has masseffect on the anterior contour of the cord. No significant spinal canalstenosis. Bilateral neural foramina are patent. T10-T11: Mild broad-based disc protrusion. Mild spinal canal stenosis.Mild bilateral neural foraminal narrowing. T11-T12: Right paracentral disc protrusion has mass effect on theanterior contour of the cord. Moderate spinal canal stenosis at this level.Severe left and moderate right neural foraminal narrowing at this level. T12-L1: Mild disc bulge. No significant spinal canal stenosis.Bilateral neural foramina are patent. Multiple bilateral renal cysts. Small bilateral pleural effusions. IMPRESSION: 1. Multiple levels with small disc herniations in the thoracic spine. Please see body of the report for details. 2. Moderate spinal canal stenosis at T11-T12. Severe left and moderate right neural foraminal narrowing at T11-T12. 3. Small bilateral pleural effusions. Authorizing ProviderResult TypeResult StatusGena Qureshi [facility] MRI ORDERABLES Final Result * MRI Lumbar Spine WO Contrast (05/10/2018 1:09 PM EDT) Only the most recent of2 resultswithin the time period is included. Anatomical RegionLateralityModalityT-spine, L-spine, PelvisMagnetic Resonance Specimen (Source)Anatomical Location / LateralityCollection Method / Volume Collection TimeReceived Time05/10/2018 1:50 PM EDT Impressions 05/12/2018 10:41 AM EDT Stable moderate to severe spinal canal narrowing and multifocal neural foraminal narrowing as detailed above compared to the prior exam. There is no evidence of cord compression or cauda equina compression. No myelomalacia in the lower spinal cord. New hydronephrosis bilaterally. ??CT abdomen and pelvis with contrast is advised for further evaluation. The findings were sent to the Radiology Results Communication Center at 2:26 pm on 05/10/2018to be communicated to a licensed caregiver. Narrative 05/12/2018 10:41 AM EDT EXAMINATION: MRI OF THE LUMBAR SPINE WITHOUT CONTRAST, 05/10/2018 12:45 pm TECHNIQUE: Multiplanar multisequence MRI of the lumbar spine was performed without the administration of intravenous contrast. COMPARISON: Outside MRI from August 10, 2017 HISTORY: ORDERING SYSTEM PROVIDED HISTORY: Spinal stenosis of lumbar region, unspecified whether neurogenic claudication present FINDINGS: BONES/ALIGNMENT: Straightening of the lumbar lordosis. ??Patchy bone marrow possibly related to underlying anemia. ??Endplate edema at L4-L5 and L5-S1 related to degenerative changes. ??No compression fracture. SPINAL CORD: The conus terminates normally. SOFT TISSUES: Bilateral hydronephrosis appears new since the prior exam and should be further evaluated with dedicated CT. ??Atrophy of the paraspinal muscles. ??Moderate spinal canal narrowing at T11-T12 secondary to disc bulges and facet arthropathy. ??There is no myelomalacia or cord signal abnormality. L1-L2: Circumferential disc bulge with facet and ligamentum flavum hypertrophy produce mild spinal canal narrowing. ??There is mild bilateral neural foraminal narrowing. L2-L3: Circumferential disc bulge with facet and ligamentum flavum hypertrophy produce moderate to severe spinal canal narrowing. ??There is mild bilateral neural foraminal narrowing. L3-L4: Circumferential disc bulge with facet and ligamentum flavum hypertrophy produce moderate to severe spinal canal narrowing and moderate bilateral neural foraminal narrowing. L4-L5: Circumferential disc bulge with facet and ligamentum flavum hypertrophy produce moderate to severe spinal canal narrowing. ??There is moderate bilateral neural foraminal narrowing. L5-S1: Circumferential disc bulge with facet and ligamentum flavum hypertrophy. ??There is moderate canal narrowing, moderate left, and severe right neural foraminal narrowing. Procedure Note Pepe Mckeon MD - 05/12/2018 EXAMINATION: MRI OF THE LUMBAR SPINE WITHOUT CONTRAST, 05/10/2018 12:45 pm TECHNIQUE: Multiplanar multisequence MRI of the lumbar spine was performed withoutthe administration of intravenous contrast. COMPARISON: Outside MRI from August 10, 2017 HISTORY: ORDERING SYSTEM PROVIDED HISTORY: Spinal stenosis of lumbar region, unspecified whether neurogenic claudication present FINDINGS: BONES/ALIGNMENT: Straightening of the lumbar lordosis. Patchy bonemarrow possibly related to underlying anemia. Endplate edema at L4-L5 andL5-S1 related to degenerative changes. No compression fracture. SPINAL CORD: The conus terminates normally. SOFT TISSUES: Bilateral hydronephrosis appears new since the prior examand should be further evaluated with dedicated CT. Atrophy of theparaspinal muscles. Moderate spinal canal narrowing at T11-T12 secondary to discbulges and facet arthropathy. There is no myelomalacia or cord signalabnormality. L1-L2: Circumferential disc bulge with facet and ligamentum flavum hypertrophy produce mild spinal canal narrowing. There is mildbilateral neural foraminal narrowing. L2-L3: Circumferential disc bulge with facet and ligamentum flavum hypertrophy produce moderate to severe spinal canal narrowing. There ismild bilateral neural foraminal narrowing. L3-L4: Circumferential disc bulge with facet and ligamentum flavum hypertrophy produce moderate to severe spinal canal narrowing andmoderate bilateral neural foraminal narrowing. L4-L5: Circumferential disc bulge with facet and ligamentum flavum hypertrophy produce moderate to severe spinal canal narrowing. There is moderate bilateral neural foraminal narrowing. L5-S1: Circumferential disc bulge with facet and ligamentum flavum hypertrophy. There is moderate canal narrowing, moderate left, andsevere right neural foraminal narrowing. IMPRESSION: Stable moderate to severe spinal canal narrowing and multifocal neural foraminal narrowing as detailed above compared to the prior exam. There is no evidence of cord compression or cauda equina compression. No myelomalacia in the lower spinal cord. New hydronephrosis bilaterally. CT abdomen and pelvis with contrast is advised for further evaluation. The findings were sent to the Radiology Results Communication Center at2:26 pm on 05/10/2018to be communicated to a licensed caregiver. Authorizing ProviderResult TypeResult StatusGena Qureshi [facility] MRI ORDERABLES Final Result * T4, Free (03/09/2018) Only the most recent of2 resultswithin the time period is included. ComponentValueRef RangeTest MethodAnalysis TimePerformed AtPathologist Signature T4 FreeSpecimen (Source)Anatomical Location / LateralityCollection Method / VolumeCollection TimeReceived TimeBLOOD SPECIMEN / Memcoin9903/09/2018 Narrative Authorizing ProviderResult TypeResult StatusKate Dixon CAGE CLERK - CNPCHEMISTRY ORDERABLESFinal Result * SUSY Screen with Reflex (06/23/2017 5:40 PM EDT)ComponentValueRef RangeTest MethodAnalysis TimePerformed AtPathologist QqycpnrbrQPZQEDBDMYNVIK44/17/2018 1:12 PM EDTMERCY LABORATORIESComment: This test was run on the [employer] SUSY test system. ??The system provides ten test results (HEp-2NA, dsDNA, SSA, SSB, Sm, LAWN SERVICE WORKER, Scl-70, Inez-1, Centromere and Histone analytes) from a single patient sample. ??A negative SUSY screen indicates that the specimen was negative for all ten markers. [facility] [address] [place] [address] ([phone] Specimen (Source)Anatomical Location / LateralityCollection Method / Volume Collection TimeReceived Time06/23/2017 5:40 PM EDT06/23/2017 5:40 PM EDT Narrative Authorizing ProviderResult TypeResult StatusTrent Camacho DOCHEMISTRY ORDERABLESFinal ResultPerforming OrganizationAddressCity/State/ZIP CodePhone Number [id number] [place] [address] * (ABNORMAL) Sedimentation Rate (06/23/2017 5:40 PM EDT)ComponentValueRef Range Test MethodAnalysis TimePerformed AtPathologist SignatureSed Rate, Fcbdfbzif41 (H)0 - 20 mm06/23/2017 6:52 PM EDTMERCY LABORATORIESComment:[address] [address] ([phone] (Source)Anatomical Location / LateralityCollection Method / VolumeCollection TimeReceived Time 06/23/2017 5:40 PM EDT06/23/2017 5:40 PM EDT Narrative Authorizing ProviderResult TypeResult StatusFormerly [facility] DOHEMATOLOGY ORDERABLESFinal ResultPerforming OrganizationAddressty/State/[place] [address], [facility] [place] [phone] * C3 Complement (06/23/2017 5:40 PM EDT)ComponentValueRef RangeTest Method Analysis TimePerformed AtPathologist SignatureComplement [id number] - 180 mg/dL 06/23/2017 6:22 PM EDTMERCY LABORATORIESComment:[address] [address] ([phone] (Source)Anatomical Location / LateralityCollection Method / VolumeCollection TimeReceived Time06/23/2017 5:40 PM EDT06/23/2017 5:40 PM EDT Narrative Authorizing ProviderResult TypeResult StatusGregGranville Medical Center DOCHEMISTRY ORDERABLESFinal ResultPerforming OrganizationAddLehigh Valley Hospital–Cedar Crestty/State/ZIP CodePhone Number [address] [address], [facility] [place] [phone] * C4 Complement (06/23/2017 5:40 PM EDT)ComponentValueRef RangeTest Method Analysis TimePerformed AtPathologist SignatureComplement Q89712 - 40 mg/dL 06/23/2017 6:22 PM EDTMERCY LABORATORIESComment:[address] [address] ([phone] (Source)Anatomical Location / LateralityCollection Method / VolumeCollection TimeReceived Time06/23/2017 5:40 PM EDT06/23/2017 5:40 PM EDT Narrative Authorizing ProviderResult TypeResult StatusGregnancy [place] DOCHEMISTRY ORDERABLESFinal ResultPerforming OrganizationAddressty/State/[place] [address], [facility] [place] [phone] * Vitamin E (06/23/2017 5:40 PM EDT)ComponentValueRef RangeTest MethodAnalysis TimePerformed AtPathologist SignatureAlpha-Tocopherol6.85.5 - 18.0 mg/L 06/26/2017 11:28 AM EDTARUP LABORATORYComment: (NOTE) Test developed and characteristics determined by [employer]. See Compliance Statement B: [employer]/ Gamma-Tocopherol1.10.0 - 6.0 mg/L06/26/2017 11:28 AM EDTARUP LABORATORYComment: (NOTE) Performed by [employer], [address] [place] [address] [email or web address], Papo Bradley MD, [place] [address] Specimen (Source)Anatomical Location / LateralityCollection Method / Volume Collection TimeReceived Time06/23/2017 5:40 PM EDT06/23/2017 5:40 PM EDT Narrative Authorizing ProviderResult TypeResult StatusGregaultman hospital [place] DOCHEMISTRY ORDERABLESFinal ResultPerforming OrganizationAddressty/State/ZIP CodePhone Number [address] [phone] [phone] * (ABNORMAL) Electrophoresis Protein, Serum without Reflex to Immunofixation (06/23/2017 5:40 PM EDT)ComponentValueRef RangeTest MethodAnalysis Time Performed AtPathologist SignatureTotal Protein5.8(L)6.4 - 8.3 g/dL06/23/2017 6:22 PM EDTMERCY LABORATORIESAlbumin (calculated)3.53.2 - 5.2 g/dL06/24/2017 4:43 PM EDTMERCY LABORATORIESAlbumin %6045 - 65 %06/24/2017 4:43 PM EDTMERCY LVFVTTHGCMIYQcibl-0-Tpolrvyh9.20.1 - 0.4 g/dL06/24/2017 4:43 PM EDTMERCY LABORATORIESAlpha 1 %43 - 6 %06/24/2017 4:43 PM EDTMERCY LABORATORIES Sbcqk-7-Drmdkpvl5.70.5 - 0.9 g/dL06/24/2017 4:43 PM EDTMERCY LABORATORIESAlpha 2 %126 - 13 %06/24/2017 4:43 PM EDTMERCY LABORATORIESBeta Globulin0.80.5 - 1.1 g/dL06/24/2017 4:43 PM EDTMERCY LABORATORIESBeta Onujbni7945 - 19 %06/24/2017 4:43 PM EDTMERCY LABORATORIESGamma Globulin0.70.5 - 1.5 g/dL06/24/2017 4:43 PM EDTMERCY LABORATORIESGamma Globulin %129 - 20 %06/24/2017 4:43 PM EDTMERCY LABORATORIESTotal Prot. Sum5.9(L)6.3 - 8.2 g/dL06/24/2017 4:43 PM EDTMERCY LABORATORIESTotal Prot. Sum,%28651 - 102 %06/24/2017 4:43 PM EDTMERCY LABORATORIESProtein Electrophoresis, SerumSLIGHTLY DECREASED TOTAL PROTEIN WITH A NORMAL ELECTROPHORETIC PATTERN.06/25/2017 7:43 AM EDTMERCY LABORATORIES PathologistELECTRONICALLY SIGNED. DAVID HENNING M.D.06/25/2017 7:43 AM EDTMERCY LABORATORIESComment:[facility] [address] [place] [address] [phone] ([phone] (Source)Anatomical Location / LateralityCollection Method / VolumeCollection TimeReceived Time06/23/2017 5:40 PM EDT06/23/2017 5:40 PM EDT Narrative Authorizing ProviderResult TypeResult StatusTrent Camacho DOIMMUNOLOGY ORDERABLESFinal ResultPerforming OrganizationAddressCity/State/ZIP CodePhone Number [employer] [address] [place] [address], [facility] [place] [phone] * (ABNORMAL) HEAVY METALS SCREEN, URINE (06/23/2017 2:50 PM EDT)ComponentValue Ref RangeTest MethodAnalysis TimePerformed AtPathologist SignatureHours WbcqpftydDFGMBFD27/16/2018 2:50 PM EDTMERCY LABORATORIESUrine Volume.Random Urine06/23/2017 3:17 PM EDTMERCY LABORATORIESArsenic, Urine /volume<10.00.0 - 34.9 ug/L06/27/2017 8:19 AM EDTARUP LABORATORYComment: (NOTE) INTERPRETIVE INFORMATION: Arsenic, Urine w/ Reflex to Fractionated The ACGIH Biological Exposure Index (JEFFERY) for arsenic in urine is 35 ug/L. The ACGIH JEFFEYR is based on the sum of inorganic and methylated species. For specimens with a total arsenic concentration of 35 to 2000 ug/L, fractionation is automatically performed to determine the proportions of inorganic, methylated and organic species. ??It may be appropriate to request fractionation for specimens with total arsenic greater than 30 ug/gCRT despite a total arsenic concentration less than 35 ug/L. If low-level chronic poisoning is suspected, the ug/gCRT ratio may be a more sensitive indicator of arsenic exposure than the total arsenic concentration. Test developed and characteristics determined by [employer]. See Compliance Statement B: [employer] Arsenic, Urine /24 HrNot Applicable0.0 - 49.9 ug/d006/27/2017 8:19 AM EDTARUP LABORATORYArsenic, Urine ratio CreatinineNot Applicable0.0 - 29.9 ug/g STUDENT LIFE COORDINATOR 06/27/2017 8:19 AM EDTARUP LABORATORYComment: (NOTE) Unable to accurately calculate the creatinine normalized result due to a low per volume result. Cadmium, Urine /volume<1.00.0 - 1.0 ug/L06/27/2017 8:19 AM EDTARUP LABORATORY Comment: (NOTE) INTERPRETATION INFORMATION: Cadmium, Urine Urine cadmium levels can be used to assess cadmium body burden. In chronic exposures, the kidneys are the primary target organ. Symptoms associated with cadmium toxicity vary based upon route of exposure and may include tubular proteinuria, fever, headache, dyspnea, chest pain, conjunctivitis, rhinitis, sore throat and cough. Ingestion of cadmium in high concentration may cause vomiting, diarrhea, salivation, cramps, and abdominal pain. See Compliance Statement B: [employer] Cadmium, Urine /24 HrNot Applicable0.0 - 3.2 ug/d006/27/2017 8:19 AM EDTARUP LABORATORYCadmium, Urine ratio CreatinineNot Applicable0.0 - 3.2 ug/g STUDENT LIFE COORDINATOR 06/27/2017 8:19 AM EDTARUP LABORATORYComment: (NOTE) Unable to accurately calculate the creatinine normalized result due to a low per volume result. Copper, Urine /volume1.60.3 - 3.2 ug/dL06/27/2017 8:19 AM EDTARUP LABORATORY Comment: (NOTE) INTERPRETIVE INFORMATION: Copper, Urine Individuals with symptomatic Jay disease usually excrete more than 100 ug copper per day. Other conditions associated with elevated urine copper include cholestatic liver disease, proteinuria, some medications, and contaminated specimens. Although random specimens may contain diagnostic information, a 24-hour collection is a more consistent indicator of urine copper. Test developed and characteristics determined by [employer]. See Compliance Statement B: [employer] Copper, Urine /24 HrNot Applicable3.0 - 45.0 ug/d006/27/2017 8:19 AM EDTARUP LABORATORYCopper, Urine ratio Aqafqwzcru19.610.0 - 45.0 ug/g CRT06/27/2017 8:19 AM EDTARUP LABORATORYLead, Urine /volume<5.00.0 - 1.4 ug/L06/27/2017 8:19 AM EDT [facility] LABORATORYComment: (NOTE) INTERPRETIVE INFORMATION: Lead, Urine Quantification of urine excretion rates before or after chelation therapy has been used as an indicator of lead exposure. Urinary excretion of >125 mg of lead per 24 hours is usually associated with related evidence of lead toxicity. See Compliance Statement B: [employer] Lead, Urine /24 HrNot Applicable0.0 - 8.1 ug/d006/27/2017 8:19 AM EDTARUP LABORATORYLead, Urine ratio CreatinineNot Applicable0.0 - 1.4 ug/g CRT06/27/2017 8:19 AM EDTARUP LABORATORYComment: (NOTE) Unable to accurately calculate the creatinine normalized result due to a low per volume result. Mercury, Urine/ Volume<2.50.0 - 1.9 ug/L06/27/2017 8:19 AM EDTARUP LABORATORY Comment: (NOTE) INTERPRETIVE INFORMATION: ??Mercury, Urine Urinary mercury levels predominantly reflect acute or chronic elemental or inorganic mercury exposure. Urine concentrations in unexposed individuals are typically less than 10 ug/L. 24 hour urine concentrations of 30 to 100 ug/L may be associated with subclinical neuropsychiatric symptoms and tremors. Concentrations greater than 100 ug/L can be associated with overt neuropsychiatric disturbances and tremors. Urine mercury levels may be useful in monitoring chelation therapy. Test developed and characteristics determined by [employer]. See Compliance Statement B: [employer] Mercury, Urine /24 HrNot Applicable0.0 - 2.9 ug/d006/27/2017 8:19 AM EDTARUP LABORATORYMercury, Urine /G CRTNot Applicable0.0 - 20.0 ug/g CRT06/27/2017 8:19 AM EDTARUP LABORATORYComment: (NOTE) Unable to accurately calculate the creatinine normalized result due to a low per volume result. Zinc, Urine /ffnqik55.415.0 - 120.0 ug/dL06/27/2017 8:19 AM EDTARUP LABORATORY Zinc, Urine /24 HrNot Iredqpggry932.0 - 1200.0 ug/d006/27/2017 8:19 AM EDTARUP LABORATORYZinc, Urine ratio Creatinine1,039.5(H)110.0 - 750.0 ug/g CRT06/27/2017 8:19 AM EDTARUP LABORATORYComment: (NOTE) INTERPRETIVE INFORMATION: Zinc, Urine Zinc is predominantly eliminated in the feces. Elevated urine zinc may suggest excessive zinc supplementation but should be interpreted with a corresponding serum zinc concentration. Test developed and characteristics determined by [employer]. See Compliance Statement B: [employer] Creatinine Urine /fhnbkt08hy/dL06/27/2017 8:19 AM EDTARUP LABORATORYCreatinine Urine /24 HrNot Nlsuwifbda166 - 1600 mg/d006/27/2017 8:19 AM EDTARUP LABORATORY Comment: (NOTE) Performed by [employer], [address] [place] [id number] [email or web address], Papo Bradley MD, Lab. Director [facility] [address] [place] [address] ([phone] Specimen (Source)Anatomical Location / LateralityCollection Method / Volume Collection TimeReceived TimeURINE SPECIMEN OBTAINED BY SINGLE CATHETERIZATION OF URINARY BLADDER / Ypbbqfg0206/23/2017 2:50 PM EDT06/23/2017 2:50 PM EDT Narrative Authorizing ProviderResult TypeResult StatusBrana SALGADO ORDERABLESFinal ResultPerforming OrganizationAddressCity/State/ZIP CodePhone Number KATIE BOWER [address] [place] [address], [facility] [place] [phone] [facility] [address] [place] [address], [facility] [place] [phone] * (ABNORMAL) Philippi / lambda light chains, urine, 24 hour (06/23/2017 2:00 PM EDT)ComponentValueRef RangeTest MethodAnalysis TimePerformed AtPathologist SignatureHours Zpauskjzi6087/17/2018 4:38 PM EDTMERCY LABORATORIESUrine Volume 2,2701506/24/2017 4:43 PM EDTMERCY LABORATORIESProtein, Total Jzyxf6423 - 140 mg/d006/27/2017 3:01 AM EDTARUP LABORATORYComment: (NOTE) INTERPRETIVE INFORMATION: Total Protein Total urinary protein is determined nephelometrically by adding the albumin and Philippi and/or Lambda light chains. This value may not agree with the total protein as determined by chemical methods, which characteristically underestimate urinary light chains. Albumin, OZyueknsdItlongnz79/20/2018 3:01 AM EDTARUP LABORATORYAlpha 1, Urine DetectedNone Snxmukmi99/20/2018 3:01 AM EDTARUP LABORATORYAlpha 2, UrineDetected None Vuzsgiei23/20/2018 3:01 AM EDTARUP LABORATORYBeta, UrineDetectedNone Qonbdmhp57/20/2018 3:01 AM EDTARUP LABORATORYGamma Globulin, UrineDetectedNone Bbvanevt18/20/2018 3:01 AM EDTARUP LABORATORYKappa Lambda Urine InterpSee Note 06/27/2017 3:01 AM EDTARUP LABORATORYComment: (NOTE) Urine MO[place]STO shows a polyclonal increase in free kappa and/or free lambda light chains. No monoclonal free light chains (Bence Angel Protein) are detected. Free Philippi Lt Chains,Ur2.78(H)0.14 - 2.42 mg/dL06/27/2017 3:01 AM EDTARUP LABORATORYUrine Free Philippi EXCRETION/Day58.82mg/d006/27/2017 3:01 AM EDTARUP LABORATORYFree Lambda Lt Chains,Ur0.170.02 - 0.67 mg/dL06/27/2017 3:01 AM EDT ARUP LABORATORYFree Ur Lambda Excretion/Day3.60mg/d006/27/2017 3:01 AM EDTARUP LABORATORYKappa/Lambda Ratio,U16.35(H)2.04 - 10.37 ratio06/27/2017 3:01 AM EDT [facility] LABORATORYComment: (NOTE) Performed by [employer], [address] [place] [address] [email or web address], Papo Bradley MD, [place] [address] Specimen (Source)Anatomical Location / LateralityCollection Method / Volume Collection TimeReceived TimeUrine (substance)URINE SPECIMEN OBTAINED BY SINGLE CATHETERIZATION OF URINARY BLADDER / Avmcdrp7306/23/2017 2:00 PM EDT06/24/2017 4:37 PM EDT Narrative Authorizing ProviderResult TypeResult StatusBruce Ila SALGADO ORDERABLESFinal ResultPerforming OrganizationAddressCity/State/[place] [address], [facility] [place] [phone] [phone] * XR KNEE LEFT (3 VIEWS) (06/22/2017 5:40 PM EDT)Anatomical RegionLaterality ModalityThigh, Knee, LegComputed RadiographySpecimen (Source)Anatomical Location / LateralityCollection Method / VolumeCollection TimeReceived Time 06/22/2017 5:53 PM EDT Impressions 06/22/2017 6:30 PM EDT Moderately severe degenerative change in the knee. Apparent lucency about the lateral aspect of the lateral tibial plateau is noted with findings of chronicity that may be related to an overhanging osteophyte. ??Clinical correlation is recommended to exclude acute trauma. Narrative 06/22/2017 6:30 PM EDT EXAMINATION: 3 VIEWS OF THE LEFT KNEE 06/22/2017 5:16 pm COMPARISON: None. 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 ??No significant joint effusion. ??An apparent lucency along the lateral margin of the lateral tibial plateau is noted with smooth margins suggestive of chronicity. ??This may represent an overhanging osteophyte versus acute trauma. Procedure Note Anurag Mcqueen MD - 06/22/2017 EXAMINATION: 3 VIEWS OF THE LEFT KNEE 06/22/2017 5:16 pm COMPARISON: None. 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 No significant joint effusion. An apparentlucency along the lateral margin of the lateral tibial plateau is noted withsmooth margins suggestive of chronicity. This may represent an overhanging osteophyte versus acute trauma. IMPRESSION: Moderately severe degenerative change in the knee. Apparent lucencyabout the lateral aspect of the lateral tibial plateau is noted with findingsof chronicity that may be related to an overhanging osteophyte. Clinical correlation is recommended to exclude acute trauma. Authorizing ProviderResult TypeResult StatusJerrod Strickland [facility] DIAGNOSTIC IMAGING ORDERABLESFinal Result * XR HIP LEFT (2-3 VIEWS) (06/22/2017 5:40 PM EDT)Anatomical RegionLaterality ModalityHip, Pelvis, ThighComputed RadiographySpecimen (Source)Anatomical Location / LateralityCollection Method / VolumeCollection TimeReceived Time 06/22/2017 5:52 PM EDT Impressions 06/22/2017 6:28 PM EDT No acute osseous abnormality or significant arthropathic features in the left hip. Narrative 06/22/2017 6:28 PM EDT EXAMINATION: 2 VIEWS OF THE LEFT HIP 06/22/2017 5:16 pm COMPARISON: None. HISTORY: ORDERING SYSTEM PROVIDED HISTORY: Hip pain TECHNOLOGIST PROVIDED HISTORY: Reason for exam:->Hip pain Acuity: Unknown Type of Exam: Unknown FINDINGS: No acute osseous abnormality identified. ??No significant arthropathic features are appreciated in the left hip or visualized left hemipelvis. Oral contrast is present within small bowel. Procedure Note Anurag Mcqueen MD - 06/22/2017 EXAMINATION: 2 VIEWS OF THE LEFT HIP 06/22/2017 5:16 pm COMPARISON: None. HISTORY: ORDERING SYSTEM PROVIDED HISTORY: Hip pain TECHNOLOGIST PROVIDED HISTORY: Reason for exam:->Hip pain Acuity: Unknown Type of Exam: Unknown FINDINGS: No acute osseous abnormality identified. No significant arthropathic features are appreciated in the left hip or visualized left hemipelvis. Oral contrast is present within small bowel. IMPRESSION: No acute osseous abnormality or significant arthropathic features in theleft hip. Authorizing ProviderResult TypeResult StatusJerrod Strickland [facility] DIAGNOSTIC IMAG[facility] ORDERABLESFinal Result * XR LUMBAR SPINE (2-3 VIEWS) (06/22/2017 5:40 PM EDT)Anatomical Region LateralityModalityT-spine, L-spine, PelvisComputed RadiographySpecimen (Source)Anatomical Location / LateralityCollection Method / VolumeCollection TimeReceived Time06/22/2017 5:52 PM EDT Impressions 06/22/2017 6:27 PM EDT Suboptimal exam. Mild anterior wedging of L1 and L2 is noted, which may be related to disc disease. ??Clinical correlation is recommended. Multilevel mild degenerative disc disease. Narrative 06/22/2017 6:27 PM EDT EXAMINATION: 3 VIEWS OF THE LUMBAR SPINE 06/22/2017 5:16 pm COMPARISON: None. HISTORY: ORDERING SYSTEM PROVIDED HISTORY: Lower back pain TECHNOLOGIST PROVIDED HISTORY: Reason for exam:->Lower back pain Acuity: Unknown Type of Exam: Unknown FINDINGS: The lateral views are degraded by diminished penetration through soft tissue. 5 lumbar type vertebral bodies are present. ??There is minimal anterior wedging at the L1 and L2 levels, which may be related to degenerative disc disease. ??There appears to be facet arthropathy at L5-S1 on the right. ??No listhesis. ??Multilevel mild disc disease is present. Residual oral contrast is present. ??There is mild gaseous prominence of the bowel. Procedure Note Anurag Mcqueen MD - 06/22/2017 EXAMINATION: 3 VIEWS OF THE LUMBAR SPINE 06/22/2017 5:16 pm COMPARISON: None. HISTORY: ORDERING SYSTEM PROVIDED HISTORY: Lower back pain TECHNOLOGIST PROVIDED HISTORY: Reason for exam:->Lower back pain Acuity: Unknown Type of Exam: Unknown FINDINGS: The lateral views are degraded by diminished penetration through softtissue. 5 lumbar type vertebral bodies are present. There is minimal anterior wedging at the L1 and L2 levels, which may be related to degenerativedisc disease. There appears to be facet arthropathy at L5-S1 on the right.No listhesis. Multilevel mild disc disease is present. Residual oral contrast is present. There is mild gaseous prominence ofthe bowel. IMPRESSION: Suboptimal exam. Mild anterior wedging of L1 and L2 is noted, which maybe related to disc disease. Clinical correlation is recommended. Multilevel mild degenerative disc disease. Authorizing ProviderResult TypeResult StatusJerrod Saritha Marco A [facility] DIAGNOSTIC IMAGING ORDERABLESFinal Result * FL ESOPHAGRAM (06/22/2017 9:05 AM EDT)Anatomical RegionLateralityModality Chest, Abdomen, NeckComputed RadiographySpecimen (Source)Anatomical Location / LateralityCollection Method / VolumeCollection TimeReceived Time06/22/2017 9:11 AM EDT Impressions 06/22/2017 10:22 AM EDT Postoperative gastric sleeve without evidence of obstruction or extravasation of contrast. Narrative 06/22/2017 10:22 AM EDT EXAMINATION: DOUBLE CONTRAST ESOPHAGRAM 06/22/2017 9:05 am TECHNIQUE: Single-contrast postoperative esophagram was performed with water soluble contrast. FLUOROSCOPY DOSE AND TYPE OR TIME AND EXPOSURES: 0.1 minutes. 6.444 Gy/cm2 COMPARISON: None HISTORY: ORDERING SYSTEM PROVIDED HISTORY: s/p sleeve gastrectomy TECHNOLOGIST PROVIDED HISTORY: Reason for exam:->s/p sleeve gastrectomy FINDINGS: Postsurgical changes are seen from gastric sleeve. ??No extravasation of contrast. ??No obstruction. Procedure Note Unruly Carrillo MD - 06/22/2017 EXAMINATION: DOUBLE CONTRAST ESOPHAGRAM 06/22/2017 9:05 am TECHNIQUE: Single-contrast postoperative esophagram was performed with watersoluble contrast. FLUOROSCOPY DOSE AND TYPE OR TIME AND EXPOSURES: 0.1 minutes. 6.444 Gy/cm2 COMPARISON: None HISTORY: ORDERING SYSTEM PROVIDED HISTORY: s/p sleeve gastrectomy TECHNOLOGIST PROVIDED HISTORY: Reason for exam:->s/p sleeve gastrectomy FINDINGS: Postsurgical changes are seen from gastric sleeve. No extravasation of contrast. No obstruction. IMPRESSION: Postoperative gastric sleeve without evidence of obstruction orextravasation of contrast. Authorizing ProviderResult TypeResult StatusDaadelfo Torres DOIMG FLUOROSCOPY ORDERABLESFinal Result * Surgical Pathology (06/21/2017 2:42 PM EDT) Only the most recent of4 resultswithin the time period is included. ComponentValueRef RangeTest MethodAnalysis TimePerformed AtPathologist Signature Surgical Pathology Report(NOTE) [id number] [facility] ??LABORATORIES CONSULTING PATHOLOGISTS [employer] ANATOMIC PATHOLOGY [address] [place] [address]. ??[place], [place] [address] SURGICAL PATHOLOGY CONSULTATION Patient Name: CARRIE FLETCHER [facility] Rec: [id number] Path Number: [id number] Collected: 06/21/2017 Received: 06/21/2017 Reported: 06/22/2017 12:18 -- Diagnosis -- 1. ??LIVER, WEDGE BIOPSY: - MILD MACROVESICULAR STEATOSIS (FATTY LIVER CHANGE). - NEGATIVE FOR SIDEROSIS, INCREASED FIBROSIS, GRANULOMATOUS INFLAMMATION AND MALIGNANCY. 2. ??STOMACH, PARTIAL GASTRECTOMY: - MILD CHRONIC GASTRITIS. - NEGATIVE FOR HELICOBACTER PYLORI, INTESTINAL METAPLASIA, DYSPLASIA AND MALIGNANCY. David Henning, Electronically Signed Out ? sls/06/22/2017 Clinical Information Pre-op Diagnosis: ??MORBID OBESITY, OBSTRUCTIVE SLEEP APNEA Operative Findings: ??LIVER BIOPSY; GASTRIC REMNANT Operation Performed: ??GASTRECTOMY SLEEVE LAPAROSCOPIC XI ROBOTIC, LIVER BIOPSY, EGD Source of Specimen 1: LIVER BIOPSY 2: GASTRIC REMNANT Gross Description 1. ?? CARRIE FLETCHER, LIVER BIOPSY 0.7 x 0.5 x 0.2 cm bustos-brown fragment. Entirely 1cs. ?? 2. ?? CARRIE FLETCHER, GASTRIC REMNANT 21.0 x 5.5 x 4.6 cm portion of stomach with a staple line that runs along its length. ??The serosa is pink-bustos and the mucosa is pink-red with no areas of granularity or masses. ??Cassette summary: A staple line, B additional sections. tm Microscopic Description 1. ??Mild macrovesicular steatosis (fatty liver change) is present. Portal chronic inflammation is minimal. ??Bile ducts and vessels in the portal tracts are unremarkable. ??Mild capsular reactive fibrosis is present. ??Iron stain is negative for hepatocellular siderosis. Trichrome and reticulin stains are negative for significant parenchymal fibrosis. ??The controls for the special stains are appropriate. ??There is no evidence of granulomatous inflammation or malignancy. 2. ??Mild chronic gastritis is present. ??Small lymphoid aggregates are present focally in the deep aspect of the mucosa. ??Submucosal adipose tissue appears increased. ??The muscularis propria smooth muscle and serosa are unremarkable. ??There is no evidence of Helicobacter pylori infection, intestinal metaplasia, dysplasia or malignancy.06/22/2017 12:00 AM EDTMRxRevu LABORATORIESSpecimen (Source)Anatomical Location / LateralityCollection Method / VolumeCollection TimeReceived Time06/21/2017 2:42 PM EDT06/21/2017 2:42 PM EDT Narrative Authorizing ProviderResult TypeResult StatusTrent Camacho DO PATHOLOGY/CYTOLOGY ORDERABLESFinal ResultPerforming OrganizationAddress City/State/ZIP CodePhone Number [employer] [address] [place] [address], [facility] [place] [phone] * HCG, SERUM, QUALITATIVE (06/21/2017 9:00 AM EDT)ComponentValueRef RangeTest MethodAnalysis TimePerformed AtPathologist SignaturePreg, SerumNEGATIVENEG 06/21/2017 9:35 AM EDStoreAge LABORATORIESComment: Specimens with hCG levels near the threshold of the test (25 mIU/mL) may give a negative or indeterminate result. ??In such cases, another test should be performed with a new specimen in 48-72 hours. ??If early is suspected clinically in this setting, correlation with quantitative serum b-hCG level is suggested. ? [facility] has confirmed the use of plasma for this test. This has not been cleared or approved by the U.S. Food and Drug Administration. ??The FDA has determined that such clearance is not necessary. [facility] [address] [place] [address] Specimen (Source)Anatomical Location / LateralityCollection Method / Volume Collection TimeReceived TimeBLOOD SPECIMEN / Iksrzjr8806/21/2017 9:00 AM EDT 06/21/2017 9:08 AM EDT Narrative Authorizing ProviderResult TypeResult StatusAbdalpike community hospitalan Hannah Rosenbergpamellasylvia MDCHEMISTRY ORDERABLESFinal ResultPerforming OrganizationAddressCity/State/ZIP CodePhone Number [facility] [place] [address], [facility] [place] [phone] * XR CHEST STANDARD (2 VW) (05/06/2017 3:50 PM EDT)Anatomical RegionLaterality ModalityChestComputed RadiographySpecimen (Source)Anatomical Location / LateralityCollection Method / VolumeCollection TimeReceived TimeThoracic structure (body structure)05/06/2017 3:55 PM EDT Impressions 05/06/2017 4:03 PM EDT No acute airspace disease identified. Mild cardiac silhouette enlargement. Narrative 05/06/2017 4:03 PM EDT EXAMINATION: TWO VIEWS OF THE CHEST 05/06/2017 3:50 pm COMPARISON: None. HISTORY: ORDERING SYSTEM PROVIDED HISTORY: preop TECHNOLOGIST PROVIDED HISTORY: Reason for exam:-> preoperative evaluation prior to gastric bypass. FINDINGS: Lordotic positioning is noted. ??The cardiac silhouette appears enlarged, which may in part be accentuated by positioning. There is no consolidation, pneumothorax or evidence for edema. ??No pleural effusion. ??No acute osseous abnormality identified. Procedure Note Anurag Mcqueen MD - 05/06/2017 EXAMINATION: TWO VIEWS OF THE CHEST 05/06/2017 3:50 pm COMPARISON: None. HISTORY: ORDERING SYSTEM PROVIDED HISTORY: preop TECHNOLOGIST PROVIDED HISTORY: Reason for exam:-> preoperative evaluation prior to gastric bypass. FINDINGS: Lordotic positioning is noted. The cardiac silhouette appears enlarged, which may in part be accentuated by positioning. There is noconsolidation, pneumothorax or evidence for edema. No pleural effusion. No acuteosseous abnormality identified. IMPRESSION: No acute airspace disease identified. Mild cardiac silhouette enlargement. Authorizing ProviderResult TypeResult StatusTrent Camacho [facility] DIAGNOSTIC IMAG[facility] ORDERABLESFinal Result * Nicotine, Blood (05/06/2017 3:37 PM EDT) Only the most recent of2 resultswithin the time period is included. ComponentValueRef RangeTest MethodAnalysis TimePerformed AtPathologist Signature Nicotine<2ng/mL05/11/2017 1:11 AM EDTARUP LABORATORYComment: (NOTE) Consistent with abstinence from nicotine-containing products for at least 1 week. INTERPRETIVE INFORMATION: Nicotine and Metabolites, ? Serum or Plasma, ? Quantitative Methodology: Quantitative Liquid Chromatography-Tandem Mass Spectrometry Positive cutoff: 2 ng/mL For medical purposes only; not valid for forensic use. This test is designed to evaluate recent use of nicotine-containing products. ??Passive and active exposure cannot be discriminated definitively, although a cutoff of 10 ng/mL cotinine is frequently used for surgery qualification purposes. For smoking cessation programs or compliance testing, the absence of expected drug(s) and/or drug metabolite(s) may indicate non-compliance, inappropriate timing of specimen collection relative to drug administration, poor drug absorption, or limitations of testing. This test cannot distinguish between use of tobacco and purified nicotine products. The concentration value must be greater than or equal to the cutoff to be reported as positive. Test developed and characteristics determined by [employer]. See Compliance Statement B: [employer] Performed by [employer], [address] [place] [address] [email or web address], Papo Bradley MD, Lab. Director Cotinine<2ng/mL05/11/2017 1:11 AM EDTARUP BUWZGSADIB0-DF-Qnkdypgi<2ng/mL 05/11/2017 1:11 AM EDTAP LABORATORYComment:[facility] [employer] [address] [place] [address] ([phone] (Source)Anatomical Location / Laterality Collection Method / VolumeCollection TimeReceived Time05/06/2017 3:37 PM EDT 05/06/2017 3:50 PM EDT Narrative Authorizing ProviderResult TypeResult StatusTrent Camacho DOCHEMISTRY ORDERABLESFinal ResultPerforming OrganizationAddressCity/State/ZIP CodePhone Number [address] [address], [facility] [place] [phone] [address], [facility] [place] [phone] * ALT (05/06/2017 3:37 PM EDT)ComponentValueRef RangeTest MethodAnalysis Time Performed AtPathologist BhtwggoupFXE024 - 33 U/L05/06/2017 4:24 PM EDTMERCY LABORATORIESComment:[address] [address] ([phone] (Source)Anatomical Location / LateralityCollection Method / VolumeCollection TimeReceived Time05/06/2017 3:37 PM EDT05/06/2017 3:51 PM EDT Narrative Authorizing ProviderResult TypeResult StatusMary Welch MDCHEMISTRY ORDERABLESFinal ResultPerforming OrganizationAddressCity/State/ZIP CodePhone Number [address] [phone] * Alkaline Phosphatase (05/06/2017 3:37 PM EDT)ComponentValueRef RangeTest MethodAnalysis TimePerformed AtPathologist SignatureAlkaline Zludrbdejbo9428 - 104 U/L05/06/2017 4:24 PM EDTMERCY LABORATORIESComment:[address] [address] ([phone] (Source)Anatomical Location / LateralityCollection Method / VolumeCollection TimeReceived Time05/06/2017 3:37 PM EDT05/06/2017 3:51 PM EDT Narrative Authorizing ProviderResult TypeResult StatusMary Welch MDCHEMISTRY ORDERABLESFinal ResultPerforming OrganizationAddressCity/State/ZIP CodePhone Number [address] [phone] * Amb External Referral To Psychology (08/24/2016) Narrative Authorizing ProviderResult TypeResult StatusGregnancy [facility] AMB EXT REFERRALSFinal Result * Amb External Referral To Cardiology (08/17/2016) Narrative Authorizing ProviderResult TypeResult StatusGregnancy [facility] AMB EXT REFERRALSEdited Result - Final * US GI ENDOSCOPIC (08/12/2016 9:43 AM EDT)Specimen (Source)Anatomical Location / LateralityCollection Method / VolumeCollection TimeReceived Time08/12/2016 10:38 AM EDT Narrative [facility] - 08/12/2016 11:19 AM EDT Radiology exam is complete. No Radiologist dictation. Please follow up with ordering provider. Authorizing ProviderResult TypeResult StatusSyed Danny Shanks [facility] ORDERABLESFinal ResultPerforming OrganizationAddressCity/State/ZIP CodePhone Number [facility] * POCT urine (08/12/2016 6:35 AM EDT) Only the most recent of2 resultswithin the time period is included. ComponentValueRef RangeTest MethodAnalysis TimePerformed AtPathologist Signature HCG, Urine (POC)JYCSENXIYBI47/05/2017 10:00 AM EDTMERCY LABORATORIES Comment: Specimens with hCG levels near the threshold of the test (25 mIU/mL) may give a negative or indeterminate result. ??In such cases, another test should be performed with a new specimen in 48-72 hours. ??If early is suspected clinically in this setting, correlation with quantitative serum b-hCG level is suggested. Specimen (Source)Anatomical Location / LateralityCollection Method / Volume Collection TimeReceived Time08/12/2016 6:35 AM EDT08/12/2016 10:00 AM EDT Narrative Authorizing ProviderResult TypeResult StatusSyed Danny Shanks [facility] TEST ORDERABLESFinal ResultPerforming OrganizationAddressCity/State/ZIP Code Phone Number [employer] [address] [place] [address], [facility] [place] [phone] * Ambulatory referral to Sleep Medicine (07/25/2016) Narrative Authorizing ProviderResult TypeResult StatusGregory R [facility] HospitalPATIENT REFERRAL ORDERABLESFinal Result * FL UGI (07/17/2016 9:18 AM EDT)Anatomical RegionLateralityModalityComputed Radiography, Radiographic ImagingSpecimen (Source)Anatomical Location / LateralityCollection Method / VolumeCollection TimeReceived Time Narrative 07/17/2016 11:22 AM EDT UPPER GI TECHNIQUE: Radiographic evaluation of the esophagus and stomach performed with thin barium contrast. INDICATION: Gastroesophageal reflux disease without esophagitis, morbid obesity due to excess calories FINDINGS: The esophagus is normal in size and contour. No stenosis, mass lesion or diverticulum identified. Gastroesophageal junction is below the diaphragm. Moderate gastroesophageal reflux in the supine position. The stomach is normal in size and contour. No focal mass lesions are identified. Normal rugal fold pattern. No evidence of ulceration. Duodenal bulb is normal. Moderate sized duodenal diverticulum. 1. Moderate gastroesophageal reflux 2. Moderate duodenal diverticulum Final report electronically signed by Vandana Salomon on 07/17/2016 11:22 AM Authorizing ProviderResult TypeResult StatusTrent Camacho DOI FLUOROSCOPY ORDERABLESEdited Result - Final * Urine Drug Screen (07/15/2016)ComponentValueRef RangeTest MethodAnalysis Time Performed AtPathologist SignatureAmphetamine Screen, UrnegBarbiturate Screen, UrnegBenzodiazepine Screen, UrinenegCannabinoid Scrn, UrCocaine Metabolite, UrinenegMethadone Screen, UrinenegOpiates, UrinenegPCPnegPropoxyphene, Urine Phencyclidine, UrineOxycodoneMethamphetamine, UrineTricyclic Antidepressants, UrineMDMA, UrineSpecimen (Source)Anatomical Location / LateralityCollection Method / VolumeCollection TimeReceived Time07/15/2016 Narrative Authorizing ProviderResult TypeResult StatusTrent Camacho DOURINE ORDERABLESFinal Result * H. PYLORI DETECTION (07/10/2016 10:40 AM EDT)ComponentValueRef RangeTest MethodAnalysis TimePerformed AtPathologist SignatureSpecimen Description .TISSUE, STOMACH OQEHOJ4907/10/2016 10:40 AM EDTMHPN LABSpecial RequestsNOT YZESNCUH52/02/2017 10:40 AM EDTMHPN LABDirect ScwiDBSEGAUW16/03/2017 11:35 AM EDTMHPN LABDirect [facility]am[facility] [address] [place] [address] (263)[phone]/11/2016 11:35 AM EDTMHPN LABStatusFINAL 11:35 AM EDTMHPN LABSpecimen (Source)Anatomical Location / Laterality Collection Method / VolumeCollection TimeReceived TimeBody tissue structure (body structure)SPECIMEN FROM STOMACH / Zugzrvi0307/10/2016 10:40 AM EDTComment: Gastric Bx Clotest Pre-op diagnosis: GERD, OBESITY Narrative Authorizing ProviderResult TypeResult StatusGregory R Camacho DOBODY FLUIDS AND STOOLS ORDERABLESFinal ResultPerforming OrganizationAddressCity/State/ZIP Code Phone Number [employer] [address] [place] [address], [facility] [place] [phone] [facility] Visit Diagnoses DiagnosisStart Date Gastroesophageal reflux disease without esophagitis Esophageal reflux 07/02/2016 Snoring Other dyspnea and respiratory abnormality 07/02/2016 Primary osteoarthritis involving multiple joints 07/02/2016 Morbid obesity due to excess calories (HCC) 07/02/2016 Gastroesophageal reflux disease without esophagitis Esophageal reflux 07/17/2016 Morbid obesity due to excess calories (HCC) 07/17/2016 Gastroesophageal reflux disease without esophagitis Esophageal reflux 07/21/2016 Snoring Other dyspnea and respiratory abnormality 07/21/2016 Primary osteoarthritis involving multiple joints 07/21/2016 Morbid obesity due to excess calories (HCC) 07/21/2016 Morbid obesity due to excess calories (HCC) 07/22/2016 Esophageal mass Unspecified disorder of esophagus 07/23/2016 Gastroesophageal reflux disease without esophagitis Esophageal reflux 08/05/2016 Esophageal mass Unspecified disorder of esophagus 08/05/2016 Morbid obesity with BMI of 60.0-69.9, adult (HCC) 08/05/2016 JOLANTA (obstructive sleep apnea) Obstructive sleep apnea (adult) (pediatric) 08/05/2016 Numbness of right foot 08/05/2016 Lymphedema Other lymphedema 08/05/2016 Duodenal diverticulum Diverticulosis of small intestine (without mention of hemorrhage) 08/05/2016 High triglycerides Pure hyperglyceridemia 08/05/2016 JOLANTA (obstructive sleep apnea) Obstructive sleep apnea (adult) (pediatric) 08/19/2016 Lymphedema Other lymphedema 08/19/2016 Duodenal diverticulum Diverticulosis of small intestine (without mention of hemorrhage) 08/19/2016 Gastroesophageal reflux disease without esophagitis Esophageal reflux 08/19/2016 Morbid obesity with BMI of 60.0-69.9, adult (HCC) 08/19/2016 Gastroesophageal reflux disease without esophagitis Esophageal reflux 09/10/2016 Snoring Other dyspnea and respiratory abnormality 09/10/2016 Primary osteoarthritis involving multiple joints 09/10/2016 Morbid obesity due to excess calories (HCC) 09/10/2016 Obstructive sleep apnea Obstructive sleep apnea (adult) (pediatric) 09/16/2016 Congenital duplication cyst of esophagus 09/16/2016 Morbid obesity due to excess calories (HCC) 09/16/2016 JOLANTA (obstructive sleep apnea) Obstructive sleep apnea (adult) (pediatric) 10/07/2016 Pre-op testing Preoperative examination, unspecified 10/07/2016 JOLANTA (obstructive sleep apnea) Obstructive sleep apnea (adult) (pediatric) 10/07/2016 Morbid obesity with body mass index (BMI) of 60.0 to 69.9 in adult ([facility]) 10/07/2016 Obstructive sleep apnea Obstructive sleep apnea (adult) (pediatric) 10/21/2016 Morbid obesity due to excess calories ([facility]) 10/21/2016 JOLANTA (obstructive sleep apnea) Obstructive sleep apnea (adult) (pediatric) 11/18/2016 Lymphedema Other lymphedema 11/18/2016 Gastroesophageal reflux disease without esophagitis Esophageal reflux 11/18/2016 JOLANTA (obstructive sleep apnea) Obstructive sleep apnea (adult) (pediatric) 12/16/2016 Lymphedema Other lymphedema 12/16/2016 Gastroesophageal reflux disease without esophagitis Esophageal reflux 12/16/2016 Obstructive sleep apnea Obstructive sleep apnea (adult) (pediatric) 01/20/2017 Morbid obesity ([facility]) Morbid obesity 01/20/2017 JOLANTA on CPAP Obstructive sleep apnea (adult) (pediatric) 02/17/2017 JOLANTA (obstructive sleep apnea) Obstructive sleep apnea (adult) (pediatric) 02/17/2017 Lymphedema Other lymphedema 02/17/2017 High triglycerides Pure hyperglyceridemia 02/17/2017 JOLANTA (obstructive sleep apnea) Obstructive sleep apnea (adult) (pediatric) 03/12/2017 High triglycerides Pure hyperglyceridemia 03/12/2017 Lymphedema Other lymphedema 03/12/2017 Gastroesophageal reflux disease without esophagitis Esophageal reflux 03/12/2017 Duodenal diverticulum Diverticulosis of small intestine (without mention of hemorrhage) 03/12/2017 Obstructive sleep apnea Obstructive sleep apnea (adult) (pediatric) 05/20/2017 Gastroesophageal reflux disease without esophagitis Esophageal reflux 05/20/2017 Morbid obesity (HCC) Morbid obesity 05/20/2017 Status post laparoscopic sleeve gastrectomy 06/21/2017 Chronic midline low back pain with sciatica, sciatica laterality unspecified 06/21/2017 Lumbosacral radiculopathy Thoracic or lumbosacral neuritis or radiculitis, unspecified 06/21/2017 Numbness of right foot 06/21/2017 Status post bariatric surgery Bariatric surgery status 07/08/2017 Urinary retention Retention of urine, unspecified 08/06/2017 Acute cystitis without hematuria Acute cystitis 08/06/2017 Numbness Disturbance of skin sensation 08/16/2017 Obstructive sleep apnea Obstructive sleep apnea (adult) (pediatric) 08/19/2017 Status post bariatric surgery Bariatric surgery status 08/19/2017 Urinary retention Retention of urine, unspecified 09/10/2017 Lumbar spondylolysis Acquired spondylolisthesis 09/27/2017 Chronic midline low back pain with sciatica, sciatica laterality unspecified 09/28/2017 Lumbosacral radiculopathy Thoracic or lumbosacral neuritis or radiculitis, unspecified 09/28/2017 Numbness of right foot 09/28/2017 JOLANTA (obstructive sleep apnea) Obstructive sleep apnea (adult) (pediatric) 10/25/2017 Status post laparoscopic sleeve gastrectomy 10/25/2017 Chronic midline low back pain with sciatica, sciatica laterality unspecified 10/25/2017 Lumbosacral radiculopathy Thoracic or lumbosacral neuritis or radiculitis, unspecified 10/25/2017 High triglycerides Pure hyperglyceridemia 10/25/2017 Lymphedema Other lymphedema 10/25/2017 Hepatic steatosis Other chronic nonalcoholic liver disease 10/25/2017 Morbid obesity with body mass index (BMI) of 40.0 to 49.9 (HCC) 10/25/2017 Obstructive sleep apnea Obstructive sleep apnea (adult) (pediatric) 10/25/2017 Status post bariatric surgery Bariatric surgery status 10/25/2017 JOLANTA (obstructive sleep apnea) Obstructive sleep apnea (adult) (pediatric) 10/25/2017 Status post laparoscopic sleeve gastrectomy 10/25/2017 Chronic midline low back pain with sciatica, sciatica laterality unspecified 10/25/2017 Lumbosacral radiculopathy Thoracic or lumbosacral neuritis or radiculitis, unspecified 10/25/2017 High triglycerides Pure hyperglyceridemia 10/25/2017 Lymphedema Other lymphedema 10/25/2017 Hepatic steatosis Other chronic nonalcoholic liver disease 10/25/2017 Morbid obesity with body mass index (BMI) of 40.0 to 49.9 (HCC) 10/25/2017 Weakness of both lower extremities 11/11/2017 JOLANTA (obstructive sleep apnea) Obstructive sleep apnea (adult) (pediatric) 03/08/2018 Hepatic steatosis Other chronic nonalcoholic liver disease 03/08/2018 Chronic midline low back pain with sciatica, sciatica laterality unspecified 03/08/2018 Status post laparoscopic sleeve gastrectomy 03/08/2018 Lymphedema Other lymphedema 03/08/2018 Obesity (BMI 30-39.9) Obesity, unspecified 03/08/2018 JOLANTA (obstructive sleep apnea) Obstructive sleep apnea (adult) (pediatric) 03/10/2018 Status post laparoscopic sleeve gastrectomy 03/10/2018 Chronic midline low back pain with sciatica, sciatica laterality unspecified 03/10/2018 Lumbosacral radiculopathy Thoracic or lumbosacral neuritis or radiculitis, unspecified 03/10/2018 High triglycerides Pure hyperglyceridemia 03/10/2018 Lymphedema Other lymphedema 03/10/2018 Hepatic steatosis Other chronic nonalcoholic liver disease 03/10/2018 Morbid obesity with body mass index (BMI) of 40.0 to 49.9 (HCC) 03/10/2018 Lumbar radiculopathy Thoracic or lumbosacral neuritis or radiculitis, unspecified 03/15/2018 Spinal stenosis of lumbar region, unspecified whether neurogenic claudication present 04/26/2018 Weakness of both lower limbs Other musculoskeletal symptoms referable to limbs 04/26/2018 Spinal stenosis of lumbar region, unspecified whether neurogenic claudication present 05/10/2018 Weakness of both lower limbs Other musculoskeletal symptoms referable to limbs 05/10/2018 Lumbar radiculitis Thoracic or lumbosacral neuritis or radiculitis, unspecified 05/24/2018 JOLANTA (obstructive sleep apnea) Obstructive sleep apnea (adult) (pediatric) 05/31/2018 Lymphedema Other lymphedema 05/31/2018 Status post laparoscopic sleeve gastrectomy 05/31/2018 Chronic midline low back pain with bilateral sciatica 05/31/2018 Obesity (BMI 30-39.9) Obesity, unspecified 05/31/2018 Spinal stenosis of lumbar region, unspecified whether neurogenic claudication present 06/01/2018 Weakness of both lower limbs Other musculoskeletal symptoms referable to limbs 06/01/2018 Spinal stenosis of lumbar region, unspecified whether neurogenic claudication present 06/21/2018 Weakness of both lower limbs Other musculoskeletal symptoms referable to limbs 06/21/2018 Chronic incomplete quadriplegia (HCC) 06/29/2018 Lumbar radiculopathy Thoracic or lumbosacral neuritis or radiculitis, unspecified 07/06/2018 Chronic incomplete quadriplegia (HCC) 07/14/2018 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) 07/18/2018 Chronic incomplete quadriplegia (HCC) 07/18/2018 Obstructive sleep apnea Obstructive sleep apnea (adult) (pediatric) 08/26/2018 Status post bariatric surgery Bariatric surgery status 08/26/2018 H/O cervical spine surgery Personal history of surgery to other organs 08/30/2018 Other acute pulmonary embolism without acute cor pulmonale (HCC) 09/03/2018 S/P cervical spinal fusion Arthrodesis status 09/12/2018 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) 09/12/2018 S/P bariatric surgery Bariatric surgery status 09/22/2018 Cervical myelopathy (HCC) Cervical spondylosis with myelopathy 10/06/2018 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) 12/28/2018 S/P cervical spinal fusion Arthrodesis status 12/28/2018 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) 12/28/2018 Gastroesophageal reflux disease without esophagitis Esophageal reflux 02/23/2019 S/P bariatric surgery Bariatric surgery status 02/23/2019 Gastroesophageal reflux disease without esophagitis Esophageal reflux 04/03/2020 Status post bariatric surgery Bariatric surgery status 04/03/2020 Status post bariatric surgery Bariatric surgery status 05/07/2020 Cervical myelopathy (HCC) Cervical spondylosis with myelopathy 05/04/2022 Cervical myelopathy (HCC) Cervical spondylosis with myelopathy 05/18/2022 Spinal stenosis in cervical region 06/30/2022 Spinal stenosis, cervical region 07/13/2022 Morbid obesity with BMI of 50.0-59.9, adult (HCC) 06/21/2017 Status post laparoscopic sleeve gastrectomy 06/21/2017 Gastroesophageal reflux disease without esophagitis Esophageal reflux 06/21/2017 JOLANTA (obstructive sleep apnea) Obstructive sleep apnea (adult) (pediatric) 06/21/2017 Chronic midline low back pain with sciatica 06/21/2017 Lumbosacral radiculopathy Thoracic or lumbosacral neuritis or radiculitis, unspecified 06/21/2017 H/O cervical spine surgery Personal history of surgery to other organs 08/30/2018 Anxiety and depression Dysthymic disorder 08/30/2018 Pulmonary embolism on right Other pulmonary embolism and infarction 09/03/2018 Anxiety and depression Dysthymic disorder 09/03/2018 H/O cervical spine surgery Personal history of surgery to other organs 09/03/2018 Obesity (BMI 30-39.9) Obesity, unspecified 09/03/2018 JOLANTA (obstructive sleep apnea) Obstructive sleep apnea (adult) (pediatric) 09/03/2018 Pericardial effusion Unspecified disease of pericardium 09/03/2018 Care Teams Team MemberRelationshipSpecialtyStart DateEnd Date Garth Altamirano DO PCP - GeneralFamily Medicine02/23/19
--- OUTSIDE RECORDS SUMMARY | 2024-12-14 10:07 | XMS_ITS | Clinical Summary ---
Author Organization [facility] Address [address] [place] [address] Care Team Providers Care Audio Experience Expert Name Role Phone Garth Altamirano Primary Care Provider [phone] Ann Marie Mccord HANDLE TURNER Unavailable [phone] Allergies Active AllergyReactionsCriticalityNoted DateCommentsAdhesive Tape-SiliconesRash Low11/08/2018Amoxicillin-Pot QeqmtkijogrZylbblsz45/22/2023OxycodoneUnknown 06/29/2022 Medications MedicationSigDispense QuantityRefillsLast FilledStart DateEnd DateStatus gabapentin (NEURONTIN) 600 mg tablet Take 600 mg by mouth daily at bedtime.06/23/2022ctive gabapentin (NEURONTIN) 300 mg capsule TAKE 1 CAPSULE BY MOUTH IN THE MORNING AND IN THE HKEFTEURZ41/26/2023ctive metoprolol tartrate, short acting, (LOPRESSOR) 25 mg tablet metoprolol tartrate 25 mg tablet TAKE 1/2 TABLET BY MOUTH TWICE DAILY03/19/2020ctive apixaban (ELIQUIS) 5 mg tab(s) Eliquis 5 mg tablet TAKE 1 TABLET BY MOUTH TWICE A DAY09/13/2018Active solifenacin (VESICARE) 5 mg tablet Take 15 mg by mouth as directed. TAKE 2 TABLETS BY MOUTH IN THE MORNING, AND 1 TABLET IN THE JDMALCW1606/25/2022ctive Docusate Sodium 250 mg capsule Stool Softener ActiveActive cholecalciferol (VITAMIN D3) 5,000 unit tab Vitamin D3 1000 IU dailyActive omega-3 fatty acids 1,000 mg cap Take by mouth q 24 HR.Active viatmin b complex - vitamin C - ferrous fumarate - folic acid (NEPHRON FA) 66 mg iron- 1,000 mcg tab tablet B Complex 100 sacod, Refill(s) 0 Start Date: 11/16/18 Status: Kszzzzi0811/16/2018 Active calcium carbonate (TUMS ULTRA) 400 mg (1,000 mg) chew Take 1,000 mg by mouth three times daily.Active multivit-minerals/folic acid (ONE-A-DAY WOMEN VITACRAVES ORAL) Take by mouth.Active sennosides (SENOKOT ORAL) Take by mouth.Active Active Problems ProblemNoted DateDiagnosed DateObesity, Class III, BMI >= 40005/04/2023ladder tumor05/04/2023Mild protein-calorie igitrtrcfiao88/11/2024Morbid (severe) obesity due to excess iaeqpqgl41/11/2024 Social History Tobacco UseTypesPacks/DayYears UsedDateSmoking Tobacco: NeverSmokeless Tobacco: Never Tobacco Cessation:Counseling Given: Not Answered Alcohol UseStandard Drinks/WeekCommentsNever0 (1 standard drink = 0.6 oz pure alcohol)PHQ-2AnswerDate RecordedPHQ-2 owmrt453/17/2023CommentsNoSex and Gender InformationValueDate RecordedSex Assigned at FbigfNlumch92/13/2023 2:09 AM EDTLegal IryLjlbtw41/28/2023 9:48 AM EDTGender EjrkgsrbZpevdz64/13/2023 2:09 AM EDTSexual OrientationNot on file Last Filed Vital Signs Vital SignReadingTime TakenCommentsBlood Ebcudxyc262/7806 3:29 PM EDT Sqmbf5248 3:29 PM NUHVbhiumextza87.1 ??C (97 ??F)05/04/2023 12:41 PM EDT Respiratory Sjam220905/04/2023 12:41 PM EDTOxygen Micgjavofd83%05/04/2023 12:41 PM EDTInhaled Oxygen Concentration--Amnuis145.8 kg (350 lb)07/14/2023 3:29 PM EDT Cxsixh009 cm (6' 2 )12/21/2022 11:56 AM ESTBody Mass Index44.9412/21/2022 11:56 AM EST Plan of Treatment Health MaintenanceDue DateLast DoneCommentsAnxiety Rkyszfyhp63/19/1988Depression Njspwijwg09/19/1988HIV Ynjbzpnfk16/19/1988Hepatitis C Ulnmhhzkz95/19/1988 Hepatitis B Vaccine (1 of 3 - 19+ 3-dose series)1988Cervical Cancer Kbqxscztu36/19/1991Mammogram Arxhqzrgp89/19/2010CT Ahmlctwewcpq61/19/2015 Cologuard (FIT-DNA)07/27/20149398Ynavxycdrud19/19/2015Colorectal Cancer Screening 2014Fecal Occult Blood2014Lipid Vlfqisfcf34/19/2015Sigmoidoscopy 2014Pneumococcal Vaccine: 50+ (2 of 2 - PCV)Shingrix Vaccine (1 of 2)07/28/2019DTaP,Tdap,Td Vaccine (2 - Td or Tdap)02/08/2023 02/08/2013Medicare Advantage Annual Wellness Visit5Covid-19 Vaccine ( season), 11/21/2021, 01/22/2021, Additional history existsInfluenza Vaccine (#1)/, 11/21/2021, 11/21/2019, Additional history existsDiabetes Zzuyefikd34, 09/06/2018, 09/05/2018, Additional history exists Procedures Procedure NamePriorityDate/TimeAssociated DiagnosisCommentsCOMPREHENSIVE METABOLIC IYTSANldgcun72/20/2024 10:18 AM EST Abnormal finding of diagnostic imaging Hydronephrosis, unspecified hydronephrosis type from Last 3 Months or Most Recently Relevant to Health Maintenance Results * (ABNORMAL) COMP METABOLIC PANEL (03/30/2023 10:18 AM EST)ComponentValueRef RangeTest MethodAnalysis TimePerformed AtPathologist SignatureProtein, Total 7.66.3 - 8.0 g/dL03/31/2023 12:46 AM [facility] Albumin3.6(L)3.9 - 4.9 g/dL03/31/2023 12:46 AM [facility] LABCalcium, Total10.08.5 - 10.2 mg/dL03/31/2023 12:46 AM [facility] LABBilirubin, Total0.20.2 - 1.3 mg/dL03/31/2023 12:46 AM [facility] LABAlkaline Fibzkuoceqw6626 - 123 U/L03/31/2023 12:46 AM [facility] LABAST9(L)13 - 35 U/L03/31/2023 12:46 AM [facility] ZVIXIM883 - 38 U/L03/31/2023 12:46 AM [facility] LTXTnuzwbh6802 - 99 mg/dL03/31/2023 12:46 AM [facility] LABComment: The [place] [employer] (ADA) provides guidance for cutoff values for fasting glucose andrandom glucose. The ADA defines fasting as no [...] Standards of Medical Care in Diabetes 2016, [place] [employer]. Diabetes Care. 2016.39(Suppl 1). BUN23(H)7 - 21 mg/dL03/31/2023 12:46 AM [facility] Creatinine1.01(H)0.58 - 0.96 mg/dL03/31/2023 12:46 AM [facility] SDORxcirq206307 - 144 mmol/L03/31/2023 12:46 AM [facility] LABPotassium4.73.7 - 5.1 mmol/L03/31/2023 12:46 AM [facility] IQZJvpuigeh238(H)97 - 105 mmol/L03/31/2023 12:46 AM [facility] SNXET87448 - 30 mmol/L03/31/2023 12:46 AM [facility] LABAnion Jkn239 - 18 mmol/L03/31/2023 12:46 AM [facility] LABEstimated Glomerular Filtration Rate67>=60 mL/min/1.73m 03/31/2023 12:46 AM [facility] LABComment:Estimated Glomerular Filtration Rate (eGFR) is calculated using the 2020 CKD-EPI creatinine equation. This equation utilizes serum creatinine, sex, and age as parameters. The creatinine assay has traceable calibration to isotope dilution- mass spectrometry. Refer to KDIGO guidelines for clinical interpretation. In patients with unstable renal function, e.g. those with acute kidney injury, the eGFRmay not accurately reflect actual GFR.Specimen (Source)Anatomical Location / LateralityCollection Method / VolumeCollection TimeReceived TimeBloodBLOOD SPECIMEN / UnknownVenipuncture / Fduhech4203/30/2023 10:18 AM EST03/30/2023 10:18 AM EST Narrative Authorizing ProviderResult TypeResult StatusAnna [facility].CNPLABORATORY Final ResultPerforming OrganizationAddressCity/State/ZIP CodePhone Number [facility] [address] [place] [address], from Last 3 Months or Most Recently Relevant to Health Maintenance Insurance Care Teams Team MemberRelationshipSpecialtyStart DateEnd Date Garth Altamirano [address] [place] [address] PCP - [facility]06/05/22 Ann Marie Mccord CNP [address] [place] [place] [id number] [facility]06/19/22
--- OUTSIDE RECORDS SUMMARY | 2024-12-14 10:07 | XMS_ITS | Clinical Summary ---
Author Organization [facility] Address [address] [place] [address] Phone Care Team Providers Care Grass Farm Laborer Name Role Phone Unavailable Primary Care Provider Unavailabl e Social History Tobacco UseTypesPacks/DayYears UsedDateSmoking Tobacco: Never Assessed CommentsUnknownSex and Gender InformationValueDate RecordedSex Assigned at Not on fileLegal YoaGkvrgi94/26/2022 1:59 PM ESTGender IdentityNot on fileSexual OrientationNot on file Plan of Treatment Not on file
--- OUTSIDE RECORDS SUMMARY | 2024-12-14 10:13 | XMS_ITS | CCD ---
Author Organization [facility] Care Team Providers Care Repacker Name Role Phone AHATOM KAELYN Referring Unavailable HECTOR, RUGEN M Primary Care Unavailable Hector, Rugen M Primary Care Provider AHAMMACookie KAELYN Admitting Unavailable AHAMMAD KAELYN Attending Unavailable HECTOR, RUGEN M Primary Care Unavailable GROUP, PSYCH COVERAGE Consulting Unavailabl e HETCOR, RUGEN M Primary Care Unavailable TIM KIM Consulting Unavailable YOLANDA, FIDEL Admitting Unavailable IONA VANG Attending Unavailable YOLANDA, FIDEL Consulting Unavailable ARLINE MOHJAILENE S Consulting Unavailable CYGNOR, JANINA M Referring Unavailable HECTOR, RUGEN M Primary Care Unavailable CYGNOR JANINA M Referring Unavailable HECTOR, RUGEN M Primary Care Unavailable [place] Procedure Practitioner Unavailab LON Arceo Primary Care Unavailable UNKNOWN, PROVIDER Admitting Unavailable UNKNOWN, PROVIDER Surgeon Unavailable UNKNOWN, PROVIDER Attending Unavailable LON IBRAHIM Referring Unavailable LON IBRAHIM Primary Care Physician [phone] Lon Ibrahim Unavailable DO Lon Ibrahim Primary Care Provider [phone] DO Lon Ibrahim Attending Provider DR LON IBRAHIM Attending Unavailable DR LON IBRAHIM Primary Care Unavailable DR LON IBRAHIM Admitting Unavailable Lon Ibrahim DO Primary Care Provider Unavailab Lon Arceo Primary Care Provider Ann Marie Mccord CNP Unavailable Nicole KEENE Attending Unavailable Nicole [...] DO, Lon R Primary Care Provider Unavailab LON Davis Referring Unavailab le KUNS, LON R Primary Care Unavailable BRYCE LARA Referring Unavailable KUNS, LON R Primary Care Unavailable Kelly Mcdowell Unavailable LEATHA Mcdowell Attending Provider Kuns, DO Lon Primary Care Provider [phone] Kuns, DO Lon Attending Provider [phone] Kuns, Lon Bc Primary Care Provider [phone] Kuns, DO Lon Primary Care Provider Kuns, DO Lon Attending Provider Kuns, Lon Admitting Unavailable Kuns, Lon Primary Care Unavailable Kuns, Lon Attending Unavailable Kuns, Lon Admitting Unavailable Kuns, Lon Primary Care Unavailable Kuns, Lon Attending Unavailable NO FAMILY, PHYSICIAN Primary Care Unavailable Kelly Mcdowell Admitting Unavailable Kelly Mcdowell Attending Unavailable Flex ZULETA Ann Marie Unavailable KUNS, LON BC Primary Care Unavailable WORTHAMS, JANINA Referring Unavailable AKTHERYN, APURVA Referring Unavailable KUNS, LON BC Primary Care Unavailable KUNS, LON BC Primary Care Unavailable DENA, HEATHER D Referring Unavailable KUNS, LON BC Primary Care Unavailable PELLE, MOISES Attending Unavailable PELLE, MOISES Referring Unavailable KUNS, LON BC Referring Unavailable KUNS, LON BC Primary Care Unavailable DENA, HEATHER D Attending Unavailable KUNS, LON BC Primary Care Unavailable DENA, HEATHER D Attending Unavailable KUNS, LON BC Primary Care Unavailable KATHERYN, APURVA Referring Unavailable KUNS, LON BC Primary Care Unavailable KATHERYN, APURVA Attending Unavailable WORTHAMS, JANINA Referring Unavailable KUNS, LON BC Primary Care Unavailable WORTHAMS, JANINA Referring Unavailable LINDAAnaLON Primary Care Unavailable JANINA HADLEY Referring Unavailable APURVA CAMPA Attending Unavailable APURVA CAMPA Referring Unavailable APURVA CAMPA Admitting Unavailable LINDALON Perez BC Primary Care Unavailable Lindaana DODGE Lon Primary Care Provider Rosana Ibrahim DOtt Attending Provider [phone] Allergies Allergy ClassificationReported Allergen(s)Allergy TypeDate of OnsetReaction(s) FacilityAdhesive Tape (1 source)Adhesive TapeSubstance Ryirqjr11-95-4077zeggcWyandot Memorial HospitalAmoxicillin / Clavulanate (1 source)Amoxicillin / ClavulanateDrug Qktwpno48-46-6190XkbxfbtwVvnlzdiyq ClinicClavulanate (1 source)ClavulanateDrug Qlzjlno80-72-3167afyuutnrUC Medical CenterOpioid Agonists (2 sources)oxyCODONEDrug Titdvue03-24-0356WtjlmckDdwoatezq ClinicPenicillins (antibiotic) (1 source)AmoxicillinDrug Tjuyzpm76-23-5678mdveiupsUC Medical Center (7 sources)Adhesive Tape; Translations: [Tape]Drug allergyEruption (morphologic abnormality)[facility] (20 sources)Amoxicillin / ClavulanateDrug Allergydiarrhea, vomitingNorth [facility] Other (20 sources)oxyCODONE; Translations: [OXYCODONE]Drug Zgflczr45-78-3698Zmqgeag [facility] (7 sources)Adhesive Tape; Translations: [adhesive tape]Propensity to adverse myjulvvfp73-29-1267fxjrbWyandot Memorial Hospital (20 sources)Amoxicillin / Clavulanate; Translations: [AMOXICILLIN-POT CLAVULANATE]Drug Rfjbkgy29-99-7218EtjmlvatBvegxlffm Clinic (20 sources)Adhesive Tape-Silicones; Translations: [ADHESIVE TAPE-SILICONES]Drug Uweejdb55-30-8054WbxmJsyuclmws Clinic (5 sources)Amoxicillin; Translations: [amoxicillin]Drug Fipbxhg95-83-3843 diarrhea, vomitingAdena [facility] (5 sources)Clavulanate; Translations: [clavulanic acid]Drug Cgvblcg46-33-5214 diarrhea, vomitingAdena Regional Medical Center (1 source)oxyCODONEDrug Opyaofh77-27-3560YefdzrroxAdena Regional Medical Center Repository Medications Current Medications MedicationDrug Class(es)DatesSig (Normalized)Sig (Original)acetaminophen 500 mg oral capsule (20 sources)Start: 76-06-7156lmuf 1 capsule by mouth every six hours as needed Start: 47-99-9483siughgdicbzkv Refills(s) 0 Start Date: 11/16/18 Status: Ordered Start: 25-97-1345wtgp 2 tablets by mouth every six hours as needed for pain acetaminophen (TYLENOL) 500 MG tablet Take 2 tablets by mouth every 6 hours as needed for Pain 60 tablet 0 08/31/2018 Activetake 1 capsule by mouth every six hoursAcetaminophen 500 MG 1 capsule as needed Orally every 6 hrs Activetake 1 capsule by mouth every six hours as neededAcetaminophen 500 MG 1 capsule as needed Orally every 6 hrs ActiveCranberry Conc-Ascorbic Acid (7 sources)Non-Standardized Food Allergenic Extract, Non-Standardized Plant Allergenic Extract, Vitamin CStart: 28-13-1872jubl 1 tablet by mouth once daily Start: 30-14-9046lltb 1 tablet by mouth once dailyCranberry Conc-Ascorbic Acid (Cranberry Plus Vitamin C) 140-100 mg Capsule Active 1 TAB PO Daily March 21, 2019 12:00amStart: 54-73-5482ewer 1 tablet by mouth once dailyCranberry Conc-Ascorbic Acid (Cranberry Plus Vitamin C) 140-100 mg Capsule Active 1 TAB PO Daily March 21, 2019 1:00amazithromycin 250 mg oral tablet (8 sources)Macrolide AntimicrobialStart: 29-86-9353Nxidbgsgw Z-Qasim 250 MG 2 tablet on the first day, then 1 tablet daily for 4 days Orally Once a day for 5 day(s) Feb, ActiveB Complex 100 (6 sources)Start: 11-16-2018B Complex 100 sacod, Refill(s) 0 Start Date: 11/16/18 Status: Orderedb complex vitamins capsule (4 sources)take 1 capsule by mouth once dailyb complex vitamins capsule Take 1 capsule by mouth daily 0 ActiveBalance B-100 - (20 sources)take 1 tablet by mouth once dailyBalance B-100 - 1 tablet Orally once a day Activetake 1 tablet by mouth once dailyBalance B-100 - 1 tablet Orally once a day for 90 days Activebiotin 5 mg oral capsule (20 sources)Start: 39-55-3787ghmb 1 capsule by mouth once dailyStart: 07-25-2020 biotin Oral, Bedtime, Refills(s) 0 Start Date: 07/25/20 Status: OrderedStart: 03-21-2019 End: 65-90-5470wdgu 1 capsule by mouth once dailyBiotin 1 mg Capsule Discontinued 1 CAP PO Daily March 21, 2019 12:00am April 22, 2023 10:00am supplementtake 1 capsule by mouth every twenty-four hoursBiotin 5000 MCG 1 capsule Orally Once a day Activetake 1 capsule by mouth once dailyBiotin 5000 MCG 1 capsule Orally Once a day ActiveBisacodyl (8 sources)Stimulant LaxativeStart: 35-41-1224kvstzxgic Refills(s) 0 Start Date: 11/16/18 Status: OrderedStart: 44-48-5275blow 1 tablet by mouth once daily as needed for constipationbisacodyl (DULCOLAX) 5 MG EC tablet Take 1 tablet by mouth daily as needed for Constipation 5 tablet 0 08/31/2018 Activecalcium carbonate 750 mg chewable tablet (20 sources)Start: 68-68-4135sklr 2 tablets by mouth twice dailyStart: 93-33-3252tigjbqc carbonate Refills(s) 0 Start Date: 11/16/18 Status: Orderedtake 1000 mg by mouth three times dailycalcium carbonate (TUMS ULTRA) 400 mg (1,000 mg) chew Take 1,000 mg by mouth three times daily. ActiveComment on above:Take 1,000 mg by mouth three times daily.Calcium Carbonate Antacid 750 MG (20 sources)take 1 tablet by mouth once dailyCalcium Carbonate Antacid 750 MG 1 tablet Orally Once a day Activecefdinir 300 mg oral capsule (2 sources)Cephalosporin Antibacterialtake 1 capsule by mouth twice daily cefdinir (OMNICEF) 300 MG capsule Take 300 mg by mouth 2 times daily 0 Active cephalexin 500 mg oral capsule (6 sources)Cephalosporin AntibacterialStart: 31-68-4991ugpu 1 capsule by mouth every eight hoursCephalexin 500 MG 1 capsule Orally every 8 hrs for 7 Jan, ActiveStart: 71-80-9560brqb 1 capsule by mouth once dailyKeflex 250 mg Cap 250 mg = 1 cap(s), Oral, Daily, # 30 cap(s), Refills(s) 11, Pharmacy: [facility]/pharmacy #[id number], 187, cm, 07/09/21 13:05:00 EDT, Height/Length Dosing, 110, kg, 07/21/21 14:28:00 EDT, Weight Dosing Start Date: 09/11/21 Status: Ordered Start: 13-43-8327dqpq 1 capsule by mouth once dailyKeflex 250 mg Cap 250 mg = 1 cap(s), Oral, Daily, # 30 cap(s), Refills(s) 3, Pharmacy: [facility]/pharmacy#[id number], 187, cm, 03/20/21 9:31:00 EST, Height/Length Dosing, 110, kg, 03/20/21 9:31:00 EST, Weight Dosing Start Date: 04/29/21 Status: Orderedcholecalciferol 0.05 mg oral capsule (20 sources)Vitamin DStart: 31-94-6676pznv 1 capsule by mouth once dailyStart: 03-19-2020 End: 04-40-9193nxol 1 tablet by mouth once dailyCholecalciferol (Vitamin D3) (Vitamin D3) 125 mcg (5,000 unit) Tablet Discontinued 125 MCG PO DailyFebruary 2020 12:00am April 22, 2023 10:01amStart: 25-14-4698edwb 1 capsule by mouth every twenty-four hoursVitamin D (Cholecalciferol) 50 MCG (2000 UT) 1 capsule Orally Once a day 5000 IU OTC Nov, Activecholecalciferol (VITAMIN D3) 5,000 unit tab Vitamin D3 1000 IU daily ActiveComment on above: Vitamin D3 1000 IU dailyciprofloxacin 500 mg oral tablet (10 sources)Quinolone AntimicrobialStart: 35-08-7801xmcj 1 tablet by mouth twice dailyStart: 06-04-2023 End: 50-51-7568yqyp 1 tablet by mouth twice dailyciprofloxacin HCl (CIPRO) 500 mg tablet Take 1 tablet by mouth two times a day for 3 days. 6 tablet0 06/04/2023 06/07/2023 ActiveStart: 05-04-2023 End: 88-75-4074lxhs 1 tablet by mouth twice dailyciprofloxacin HCl (CIPRO) 500 mg tablet Take 1 tablet by mouth two times a day for 10 days. 20 tablet 0 05/04/2023 05/14/2023 ActiveStart: 22-76-5219xryj 1 tablet by mouth twice daily Cipro 500 mg Tab 500 mg = 1 tab(s), Oral, BID, # 14 tab(s), Refills(s) 0, Pharmacy: [facility]/pharmacy #[id number], 187, cm, 12/22/21 15:10:00 EST, Height/Length Dosing, 110, kg, 12/22/21 15:10:00 EST, Weight Dosing Start Date: 12/22/21 Status: OrderedStart: 54-78-0967hykx 1 tablet by mouth once dailyCipro 500 mg Tab 500 mg = 1 tab(s), Oral, As Directed, Take 1 tablet day before procedure, then 1 tablet day of procedure after procedure., # 2 tab(s), Refills(s) 0, Pharmacy: [facility]/pharmacy #[id number], 187, cm, 07/09/21 13:05:00 EDT, Height/Length Dosing, 110, kg, 07/09/21... Start Date: 07/09/21 Status: OrderedComment on above: Take 1 tablet by mouth two times a day for 10 days.Compression stockings, 20- 30mmHg, calf 20-30mmHg (20 sources)Start: 31-59-7937Lntgfnchjam stockings, 20-30mmHg, calf 20-30mmHg as directed externally daily as directed June, ActiveCranberry preparation (20 sources)Non-Standardized Food Allergenic Extract, Non-Standardized Plant Allergenic ExtractStart: 42-80-4133Cfutmqcxr Refill(s) 0 Start Date: 11/16/18 Status: Orderedtake 1 tablet by mouth twice dailyCranberry 400 MG TABS Take 1 tablet by mouth 2 times daily For urine 0 ActiveCranberry 400 MG as directed Orally Activetake 1 tablet by mouth twice dailyCranberry 400 MG TABS Take 1 tablet by mouth 2 times daily For urine 0 Activecyclobenzaprine hydrochloride 10 mg oral tablet (2 sources)Muscle Relaxanttake 1 tablet by mouth three times daily as needed for muscle spasmscyclobenzaprine (FLEXERIL) 10 MG tablet Take 10 mg by mouth 3 times daily as needed for Muscle spasms 0 Activedocosahexaenoic acid 120 mg / eicosapentaenoic acid 180 mg oral capsule (2 sources)take 1 capsule by mouth once dailyOmega-3 Fatty Acids (FISH OIL) 1000 MG CAPS Take 1,000 mg by mouth daily LAST DOSE 08/16/2018 0 ActiveOmega 0-Teg-Fgu-Fish Oil (7 sources)Start: 17-19-4152Myrno: 31-72-2787wkjx 1000 mg by mouth once daily [place] 7-Bhd-Hhb-Fish Oil Active 1000 MG PO Daily March 21, 2019 12:00am Start: 98-07-2611rwxv 1000 mg by mouth once dailyOmega 2-Nyh-Bxg-Fish Oil Active 1000 MG PO Daily March 21, 2019 1:00amdocusate sodium 100 mg oral capsule (20 sources)Start: 21-65-2034iqcr 1 capsule by mouth three times dailyStart: 88-34-9909fftfilzn sodium Refills(s) 0 Start Date: 11/16/18 Status: OrderedStart: 21-42-2396aeij 1 capsule by mouth twice dailydocusate sodium (COLACE, DULCOLAX) 100 MG CAPS Take 100 mg by mouth 2 times daily 30 capsule 0 08/31/2018 Active Docusate Sodium 250 mg capsule Stool Softener Active ActiveComment on above: Stool Softener Eedwbn93 hr guaiFENesin 600 mg extended release oral tablet (2 sources)take 2 tablets by mouth twice daily as needed for congestion, then take 1 tablet by mouth as neededfor congestionguaiFENesin (MUCINEX) 600 MG extended release tablet Take 1,200 mg by mouth 2 times daily as neededfor Congestion 0 ActivehydrOXYzine hydrochloride 10 mg oral tablet (2 sources)Antihistaminetake 1 tablet by mouth three times daily as needed hydrOXYzine (ATARAX) 10 MG tablet Take 10 mg by mouth 3 times daily as needed for Itching 0 Activelidocaine 0.04 mg/mg medicated patch (2 sources)Antiarrhythmic, Amide Local AnestheticStart: 14-05-1924eslzb 1 dose transdermal route once dailylidocaine 4 % external patch Place 1 patch onto the skin daily 15 patch 0 09/01/2018 Activemagnesium hydroxide 80 mg/ml oral suspension (2 sources)Start: 64-72-2367klyn 30 mL by mouth once daily as needed for constipationmagnesium hydroxide (MILK OF MAGNESIA) 400 MG/5ML suspension Take 30 mLs by mouth daily as needed for Constipation 1 Bottle 0 08/31/2018 Active menthol 3 mg oral lozenge (2 sources)menthol-cetylpyridinium (CEPACOL) 3 MG lozenge Take 1 lozenge by mouth every 2 hours as needed for Sore Throat 0 Activemethocarbamol 750 mg oral tablet (5 sources)Muscle RelaxantStart: 71-08-6853offnqmPYHELLAfbvoi 4 mg oral tablet (8 sources)CorticosteroidStart: 67-66-0099diktfsTHBZZJYqzpan 4 MG as directed Orally Feb, ActiveMulti Vitamin+ (6 sources)Start: 01-55-6877Kgzwx Vitamin+ Refill(s) 0 Start Date: 11/16/18 Status: OrderedMultiple Vitamin (MVI, BARIATRIC ADVANTAGE MULTI-FORMULA, CHEW TAB) (4 sources)Multiple Vitamin (MVI, BARIATRIC ADVANTAGE MULTI-FORMULA, CHEW TAB) Take 1 tablet by mouth 0 ActiveMultiple Vitamins-Minerals (WOMENS MULTI VITAMIN & MINERAL PO) (2 sources)take 1 tablet by mouth once dailyMultiple Vitamins-Minerals (WOMENS MULTI VITAMIN & MINERAL PO) Take 1 tablet by mouth daily 0 Activemultivit- minerals/folic acid (ONE-A-DAY WOMEN VITACRAVES ORAL) (20 sources)multivit-minerals/folic acid (ONE-A-DAY WOMEN VITACRAVES ORAL) Take by mouth. Activemultivit-minerals/folic acid (ONE-A-DAY WOMEN VITACRAVES ORAL) Take by mouth. 0 ActiveComment on above:Take by mouth.Multivitamin Adult - (20 sources)Start: 61-73-5004smzj 1 tablet by mouth once dailyMultivitamin Adult - 1 tablet Orally QD 14 Oct, 2016 ActiveMultivitamin preparation (5 sources)Start: 77-85-8597dxlw 1 tablet by mouth once dailyMultivitamin Active 1 TAB PO Daily March 21, 2019 12:00amStart: 16-38-4310pebf 1 tablet by mouth once dailyMultivitamin Active 1 TAB PO Daily March 21, 2019 1:00am Multivitamin Tablet (2 sources)Start: 74-41-2917gmbv 1 tablet by mouth once dailyOmega 3 1000 MG (20 sources)take 1 capsule by mouth once dailyOmega 3 1000 MG 1 capsule Orally Once a day for 90 days ActiveOmega-3 (6 sources)Start: 39-00-2502Shmnq-3 Refill(s) 0 Start Date: 11/16/18 Status: Orderedomega-3 acid ethyl esters (retirement) 1000 mg oral capsule (2 sources)take 1 capsule by mouth once dailyOmega-3 Fatty Acids (FISH OIL) 1000 MG CAPS Take 1,000 mg by mouth daily LAST DOSE 08/16/2018 0 Activeomega-3 fatty acids 1,000 mg cap (20 sources)omega-3 fatty acids 1,000 mg cap Take by mouth q 24 HR. Activeomega- 3 fatty acids 1,000 mg cap Take by mouth q 24 HR. 0 ActiveComment on above:Take by mouth q 24 HR.oxyCODONE hydrochloride 5 mg oral tablet (2 sources)Opioid Agonisttake 1 tablet by mouth every four hours as needed for painoxyCODONE (ROXICODONE) 5 MG immediate release tablet Take 5 mg by mouth every 4 hours as needed forPain. 0 Activepolyethylene glycol 3350 60224 mg powder for oral solution (2 sources)Osmotic Laxativetake 17 g by mouth once daily as neededpolyethylene glycol (GLYCOLAX) powder Take 17 g by mouth daily as needed 0 Activesennosides (SENOKOT ORAL) (20 sources)sennosides (SENOKOT ORAL) Take by mouth. Activesennosides (SENOKOT ORAL) Take by mouth. 0 ActiveComment on above:Take by mouth.sennosides, retirement 8.6 mg oral tablet (2 sources)take 2 tablets by mouth once dailysenna (SENOKOT) 8.6 MG tablet Take 2 tablets by mouth nightly 0 Activesertraline 25 mg oral tablet (2 sources)Serotonin Reuptake InhibitorStart: 67-49-7401rwkj 1 tablet by mouth once dailysertraline (ZOLOFT) 25 MG tablet Take 1 tablet by mouth daily 30 tablet 0 08/31/2018 Npskwa1574 ml sodium chloride 9 mg/ml injection (1 source)Start: 04-19-2023 End: .9 % sodium chloride (NACL 0.9%) infusion Administer at rate defined per CT contrast administration specifications. To be provided with radiology test. 150 mL 0 04/19/2023 04/19/2023 ActiveComment on above:Administer at rate defined per CT contrast administration specifications. To be provided with radiology test.Stool Softener (20 sources)Stool Softener ActiveTespo Womens Bariatric Complete Vitamin Formula (7 sources)Start: 37-74-0662ljpb 1 capsule by mouth twice dailyStart: 03-21-2019 take 1 capsule by mouth twice dailyTespo Womens Bariatric Complete Vitamin Formula Active 1 CAP PO Twice daily March 21, 2019 12:00amStart: 03-21-2019 take 1 capsule by mouth twice dailyTespo Womens Bariatric Complete Vitamin Formula Active 1 CAP PO Twice daily March 21, 2019 1:00amviatmin b complex - vitamin C - ferrous fumarate - folic acid (NEPHRON FA) 66 mg iron- 1,000 mcg tab tablet (20 sources)Start: 97-31-6266wjftime b complex - vitamin C - ferrous fumarate - folic acid (NEPHRON FA) 66 mg iron- 1,000 mcg tab tablet B Complex 100 sacod, Refill(s) 0 Start Date: 11/16/18 Status: Ordered 11/16/2018 ActiveStart: 69-48-0540cdtthqt b complex - vitamin C - ferrous fumarate - folic acid (NEPHRON FA) 66 mg iron- 1,000 mcg tab tablet B Complex 100 sacod, Refill(s) 0 Start Date: 11/16/18 Status: Ordered 0 11/16/2018 ActiveComment on above:B Complex 100 sacod, Refill(s) 0 Start Date: 11/16/18 Status: OrderedVitamin B Complex-Folic Acid (5 sources)Start: 76-62-6445pzet 1 tablet by mouth once dailyVitamin B Complex- Folic Acid Active 1 TAB PO Daily March 21, 2019 12:00amStart: 03-21-2019 take 1 tablet by mouth once dailyVitamin B Complex-Folic Acid Active 1 TAB PO Daily March 21, 2019 1:00amVitamin B Complex-Folic Acid 400 mcg tablet extended release (2 sources)Start: 99-46-8237qwnc 1 tablet by mouth once dailyVitamin D (Cholecalciferol) 50 MCG (1999 UT) (20 sources)Start: 21-58-4745awxb 1 capsule by mouth once dailyVitamin D (Cholecalciferol) 50 MCG (1999 UT) 1 capsule Orally Once a day 5000 IU OTC Nov, ActiveWalker misc (1 source)Start: 33-19-4464Lhpnhc misc Active 0 .Route 1 0 December 13, 2024 12:00am Decreased activities of daily living (ADL) Impaired mobility Other specified health status Other reduced mobility As directed Completed/Discontinued Medications MedicationDrug Class(es)DatesSig (Normalized)Sig (Original)acetaminophen 325 mg / HYDROcodone bitartrate 5 mg oral tablet (20 sources)Opioid AgonistStart: 08-24-2019 End: 80-77-7493eomn 1 tablet by mouth every four to six hours as needed for pain Hydrocodone-Acetaminophen (Reserve) 5-325 mg tablet Discontinued 1 TAB PO EVERY 4- 6 HOURS as needed for pain 7 7 0 August 30, 2019 March 19, 2020 1:17pm Encounter for cosmetic surgery Encounter forcosmetic surgeryapixaban 5 mg oral tablet (20 sources)Factor Xa InhibitorStart: 09-13-2018 End: 31-53-9113mfwx 1 tablet by mouth twice dailyApixaban (Eliquis) 5 mg tablet Discontinued 5 MG PO Twice daily August 16, 2019 11:00pm May 18, 2023 2:30pm Comment on above:Eliquis 5 mg tablet TAKE 1 TABLET BY MOUTH TWICE A DAYatorvastatin 40 mg oral tablet (7 sources)HMG-CoA Reductase InhibitorStart: 08-30-2019 End: 08-41-9308wfql 1 tablet by mouth once daily in the eveningAtorvastatin 40 mg Tablet Discontinued 40 MG PO Every evening 0 0 August 29, 2019 11:00pm March 19, 2020 1:17pm0.4 ml enoxaparin sodium 100 mg/ml prefilled syringe (7 sources)Low Molecular Weight HeparinStart: 08-27-2019 End: 91-25-0959czijcr 40 mg by subcutaneous injection once dailyEnoxaparin 40 mg/0.4 mL syringe Discontinued 40 MG SUBCUT Daily August 26, 2019 11:00pm August 30, 2019 10:20amgabapentin 300 mg oral capsule (20 sources)Anti-epileptic AgentStart: 06-23-2022 End: 59-97-8068bntz 1 tablet by mouth once dailyGabapentin 600 mg tablet Discontinued 600 MG PO Daily 90 1 September 18, 2024 1:50pm December 13, 2024 2:18pmStart: 03-21-2019 End: 30-37-8582enyr 2 capsules by mouth twice dailyGabapentin 100 mg capsule Discontinued 200 MG PO Twice daily March 21, 2019 12:00am September 23, 2020 8:16am nerve painStart: 03-21-2019 End: 22-59-5476gvfe 200 mg by mouth twice dailyGabapentin Discontinued 200 MG PO Twice daily March 21, 2019 1:00am September 23, 2020 9:16amStart: 11-16-2018 End: 20-35-9854lsci 1 capsule by mouth twice daily in the morningGabapentin 300 mg capsule Discontinued 300 MG PO Twice daily 180 90 1 April 22, 2023 1:54pm October 01, 2023 1:15pm FreeTextSi capsule orally in the morning and in the afternoon Provider: Kristy RStart: 04-19-2018 End: 10-68-9101olqm 1 capsule by mouth once daily at bedtimeGabapentin 400 mg capsule Discontinued 400 MG PO Daily at bedtime March 21, 2019 12:00am March 29, 2023 10:56am nerve painComment on above:Take 600 mg by mouth daily at bedtime.TAKE 1 CAPSULE BY MOUTH IN THE MORNING AND IN THE AFTERNOONiv contrast (will be provided with radiology test) (2 sources)Start: 04-19-2023 End: 40-62-4175mx contrast (will be provided with radiology test) [...] guidelines link. 1 Each 0 04/19/2023 04/20/2023 ExpiredStart: 04-19-2023 End: 51-02-3716re contrast (will be provided with radiology test) [...] guidelines link. 1 Each 0 04/19/2023 04/20/2023 ActiveComment on above:CT Urogram WO/W Inject, intravenously, once for 1 dose.No IV access, insert saline lock prior to the beginning of sedation, infusion, injection of imaging exam. Discontinue saline lock post exam. If Pt. has a central line or IVAD, may access for administration according to line specific nursing protocol. Once exam is complete flush line and de-access according to line specific nursing protocol inthe CT contrast administration guidelines link. Ketorolac (20 sources)Nonsteroidal Anti-inflammatory Drug, Cyclooxygenase InhibitorStart: 84-56-0393Geebiun per 15 mg May, 2 ccStart: 49-72-2354Wmlldnm per 15 mg Apr, 2 ccStart: 38-45-5949Ujawdrg per 15 mg Nov, 2 ccStart: 54-93-0892Rwzgdxe per 15 mg Oct, 2 ccStart: 62-26-8707Sbwajuc per 15 mg Oct, 2 mLmetoprolol tartrate 25 mg oral tablet (20 sources)beta-Adrenergic BlockerStart: 08-03-2023 End: 44-27-5474Mzrwqnmdgj Tartrate 25 mg tablet Discontinued 12.5 MG PO Twice daily 180 1 October 01, 2023 1:14pmAugust 2024 1:50pmStart: 04-22-2023 End: 56-23-4223tnff 0.5 tablet by mouth twice daily at mealtimeMetoprolol Tartrate 25 mg tablet Discontinued 0.5 TAB PO Twice daily April 21, 2023 11:00pm August 03, 2023 7:00am FreeTextSi/2 tablet with food Orally Twice a day; Note: Source Status: Taking;Refills: 3; Provider: Evelia Liang RStart: 31-09-4447mzfm 1 mg by mouth once dailymetoprolol 25 mg ER Tab mg tab(s), Oral, Daily, Refills(s) 0 Start Date: 04/09/20 Status: OrderedStart: 03-19-2020 End: 86-10-0539jivs 1 tablet by mouth twice dailymetoprolol tartrate, short acting, (LOPRESSOR) 25 mg tablet metoprolol tartrate 25 mg tablet TAKE 1/2 TABLET BY MOUTH TWICE DAILY 03/19/2020 ActiveStart: 03-19-2020 End: 25-94-1704Bcapmlzysj Tartrate 25 mg tablet Discontinued 12.5 MG PO Twice daily March 19, 2020 12:00am April 22, 2023 9:58amStart: 03-19-2020 End: 09-16-7460yjug 12.5 mg by mouth twice dailyMetoprolol Tartrate Active 12.5 MG PO Twice daily 180 October 01, 2023 2:14pmtake 0.5 tablet by mouth twice daily at mealtimeMetoprolol Tartrate 25 MG 1/2 tablet with food Orally Twice a day for 90 days ActiveComment on above:metoprolol tartrate 25 mg tablet TAKE 1/2 TABLET BY MOUTH TWICE DAILYnitrofurantoin, macrocrystals 25 mg / nitrofurantoin, monohydrate 75 mg oral capsule (7 sources)Nitrofuran AntibacterialStart: 06-17-2020 End: 94-45-5683ucsc 1 capsule by mouth twice dailyNitrofurantoin Monohyd/M-Cryst 100 mg capsule Discontinued 100 MG PO Twice daily June 16, 2020 11:00pm September 23, 2020 8:17amsolifenacin succinate 5 mg oral tablet (20 sources)Cholinergic Muscarinic AntagonistStart: 04-22-2023 End: 59-73-6365bwci 2 tablets by mouth in the morning, then take 1 tablet by mouth twice daily in the eveningSolifenacin 5 mg tablet Discontinued MG PO April 21, 2023 11:00pm August 03, 2023 6:59am FreeTextSi tablets in the AM, 1 tablet in the PM Orally twice a day as directed; Note: Source Status: Taking; Provider: Evelia Liang ( )Start: 06-25-2022 End: 83-77-2652drjd 1 tablet by mouth in the eveningsolifenacin (VESICARE) 5 mg tablet Take 15 mg by mouth as directed. TAKE 2 TABLETS BY MOUTH IN THE MORNING, AND 1 TABLET IN THE EVENING 06/25/2022 ActiveStart: 23-52-9154tnln 1 tablet by mouth twice dailyVesicare 5 mg Tab 5 mg = 1 tab(s), Oral, BID, # 60 tab(s), Refills(s) 5, Pharmacy: [id number], 187, cm, 12/30/21 9:14:00 EST, Height/Length Dosing, 110, kg, 12/30/21 9:14:00 EST, Weight Dosing Start Date: 01/21/22 Status: Orderedtake 2 tablets by mouth in the morning, then take 1 tablet by mouth twice daily in the eveningSolifenacin Succinate 5 MG 2 tablets in the AM, 1 tablet in the PM Orally twice a day as directed Activetake 1 tablet by mouth every twenty-four hoursVESIcare 5 MG 1 tablet Orally Once a day Active Comment on above:Take 15 mg by mouth as directed. TAKE 2 TABLETS BY MOUTH IN THE MORNING, AND 1 TABLET IN THE EVENINGsulfamethoxazole 800 mg / trimethoprim 160 mg oral tablet (14 sources)Dihydrofolate Reductase Inhibitor Antibacterial, Sulfonamide AntimicrobialStart: 05-31-2020 End: 69-90-9511uiis 1 tablet by mouth twice dailySulfamethoxazole-Trimethoprim (Sulfamethoprim Ds) 800-160 mg Tablet Discontinued 1 TAB PO Twice daily May 30, 2020 11:00pm June 17, 2020 7:08amStart: 03-21-2019 End: 27-77-1641mrbs 2 tablets by mouth twice dailySulfamethoxazole-Trimethoprim 400-80 mg tablet Discontinued 2 TAB PO Twice daily March 21, 2019 12:00am August 24, 2019 5:19am utiVitamin D 1000 intl units Tab (6 sources)Start: 61-36-7833qouq 1 tablet by mouth once dailyVitamin D 1000 intl units Tab 1,000 International_Unit = 1 tab(s), Oral, Daily, # 30 tab(s), Refills (s) 0 Start Date: 07/25/20 Status: Ordered Problems Active Problems Problem ClassificationProblemDateDocumented DateEpisodic/ChronicAcquired foot deformities (20 sources)Left foot drop; Translations: [Foot drop, left foot]08-29-2019 EpisodicComment on above:Problem List clean-up per request of Phys. EHR Cmte Acute myocardial infarction (20 sources)Acute non-ST segment elevation myocardial infarction; Translations: [Non-ST elevation (NSTEMI) myocardial infarction]41-29-2402QfouufnZaakzwp on above:Problem List clean-up per request of Phys. EHR CmteAdministrative/social admission (12 sources)Dietary counseling and surveillance; Translations: [Reduced mobility]Onset: 10-14-2021 Resolved: 93-54-4691HhzllzxaXxpolbp disorders (20 sources)Mixed anxiety and depressive disorder; Translations: [Anxiety disorder]96-88-9712RjaiehqXmsrxgbgh infection; unspecified site (20 sources)Actinomycotic infection; Translations: [Actinomycosis, unspecified] 69-42-1853OeskdhvnEjphpfh on above:Problem List clean-up per request of Phys. EHR CmteBiliary tract disease (20 sources)Cholecystitis; Translations: [Cholecystitis, unspecified]Episodic Cardiac dysrhythmias (20 sources)Supraventricular tachycardia; Translations: [Supraventricular tachycardia]Onset: 07-01-2021 Resolved: 03-20-5163CgjtrhkZjvsvzd dysrhythmias (6 sources)Isgwipaflvj82-72-8511GktoawkvOcgsmcn ulcer of skin (20 sources)Pressure ulcer of unspecified site, unspecified stage; Translations: [Non-pressure chronic ulcer ofother part of left foot with unspecified severity] 62-62-5764YitxklzRgbklzirmf associated with dizziness or vertigo (7 sources)Dizziness; Translations: [Dizziness and giddiness]67-34-6803Rmktjnep Comment on above:Problem List clean-up per request of Phys. EHR CmteCongestive heart failure; nonhypertensive (20 sources)Diastolic heart failure; Translations: [Unspecified diastolic (congestive) heart failure]77-62-3055VwameuoEysuorj on above:Problem List clean- up per request of Phys. EHR CmteDeficiency and other anemia (7 sources)Anemia; Translations: [Anemia, unspecified]99-88-5555YupasnjnSgyjzyg on above:Problem List clean-up per request of Phys. EHR CmteDiabetes mellitus without complication (8 sources)Type 2 diabetes mellitus; Translations: [Type 2 diabetes mellitus without complications]Onset: 042071-24-1603QjzrecwFjdrpkha mellitus without complication (20 sources)Hyperglycemia, unspecified; Translations: [Hyperglycemia]Onset: 10-10-2021 Resolved: 10-81-5235WcibsgriRnqlowwgl of lipid metabolism (20 sources)Hypertriglyceridemia; Translations: [Hyperlipidemia]Onset: 08-05-2016 Resolved: 386439-33-7634XtqosbeWpmclnwklsmmwg and diverticulitis (8 sources)Diverticular disease; Translations: [Diverticulum of duodenum]Onset: 035017-02-7058GzjnjqsUbgzgvuqtgvtuq and diverticulitis (2 sources)Diverticulum of duodenum; Translations: [Duodenal diverticulum]Onset: E Codes: Fall (2 sources)Unspecified fall, subsequent encounter; Translations: [Unspecified fall, initial encounter]EpisodicEsophageal disorders (20 sources)Gastroesophageal reflux disease without esophagitis; Translations: [Gastroesophageal reflux disease] Resolved: 724044-96-8356AtzveoxIzfzpqwirv disorders (4 sources)Esophageal mass; Translations: [Esophageal mass]14-19-3776Ixuljigu Essential hypertension (7 sources)Hypertensive disorder; Translations: [Essential (primary) hypertension]15-13-4426BrxmutfIrjgjue on above:Problem List clean-up per request of Phys. EHR CmteGastroduodenal ulcer (except hemorrhage) (20 sources)Gastric ulcer; Translations: [Gastric ulcer, unspecified as acute or chronic, without hemorrhage orperforation]ChronicGenitourinary congenital anomalies (20 sources)Cyst of kidney; Translations: [Congenital renal cyst, unspecified] ChronicGenitourinary symptoms and ill-defined conditions (20 sources)Urge incontinence; Translations: [Genuine stress incontinence]Onset: 06-43-1532SrarremTjyjglvaggqzq symptoms and ill-defined conditions (20 sources)Microscopic hematuria; Translations: [Other microscopic hematuria] Onset: 57-47-5657TvpgwnfqEnrzqnv on above:Problem List clean-up per request of Phys. 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 EHR CmteMalaise and fatigue (7 sources)Decline in functional status; Translations: [Other malaise]03-29-2019 EpisodicComment on above:Problem List clean-up per request of Phys. 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]Onset: 96-75-3471LcrtvpbhWxbeq connective tissue disease (3 sources)Arthrodesis status; Translations: [S/P cervical spinal fusion]Onset: 17-58-6875SbtucwelZtnss connective tissue disease (3 sources)Other symptoms and signs involving the musculoskeletal system; Translations: [Other musculoskeletalsymptoms referable to limbs]EpisodicOther connective tissue disease (2 sources)History of cervical spine fusion; Translations: [Arthrodesis status] EpisodicOther connective tissue disease (2 sources)Muscle weakness of upper limb; Translations: [Other symptoms and signs involving the musculoskeletal system]EpisodicOther connective tissue disease (9 sources)Pain in left foot; Translations: [Pain in left foot]EpisodicOther connective tissue disease (2 sources)Pain in left footEpisodicOther diseases of bladder and urethra (13 sources)Detrusor and sphincter dyssynergia; Translations: [Muscular disorders of urethra]52-57-2072MdcbabqUprrabf on above:Problem List clean-up per request of Phys. EHR CmteOther diseases of bladder and urethra (15 sources)Mass of urinary bladder; Translations: [Other specified disorders of bladder]18-80-8386RpqvqfdGerhtze on above:Problem List clean-up per request of Phys. EHR CmteOther diseases of bladder and urethra (20 sources)Neurogenic bladder; Translations: [Neuromuscular dysfunction of bladder, unspecified]78-69-4670KpvlqjkVtloc diseases of bladder and urethra (4 sources)Neuromuscular dysfunction of bladder, unspecified; Translations: [Neuromuscular dysfunction of bladder, unspecified]Onset: 12-16-1551AiekujwDfrrm diseases of bladder and urethra (1 source)Hypertrophy of bladder; Translations: [Other specified disorders of bladder]73-98-5659TozuvfxQiqir diseases of bladder and urethra (1 source)Other specified disorders of bladder; Translations: [Bladder mass] Onset: 61-76-1520KdauenfXejek diseases of kidney and ureters (13 sources)Hydronephrosis; Translations: [Other hydronephrosis]04-12-2019 EpisodicOther diseases of kidney and ureters (1 source)Bilateral hydronephrosis ; Translations: [Unspecified hydronephrosis] 60-83-1693LooxdcbjLlmxm diseases of kidney and ureters (5 sources)Cyst of kidney; Translations: [Cyst of kidney, acquired]05-20-2023 EpisodicOther diseases of veins and lymphatics (10 sources)Lymphedema; Translations: [Lymphedema, not elsewhere classified] Onset: 440652-93-2944RazcwtpDbcpc diseases of veins and lymphatics (20 sources)Disorder of vein; Translations: [Venous insufficiency (chronic) (peripheral)]EpisodicOther diseases of veins and lymphatics (5 sources)Vascular insufficiency; Translations: [Venous insufficiency (chronic) (peripheral)]38-76-3542QpxxjjooJtsfn ear and sense organ disorders (10 sources)Bilateral tinnitus; Translations: [Tinnitus, bilateral]EpisodicOther gastrointestinal disorders (20 sources)Constipation; Translations: [Constipation, unspecified]EpisodicOther gastrointestinal disorders (20 sources)History of bariatric surgical procedure; Translations: [Bariatric surgery status]91-01-5467YzbbdzrgOaxzy gastrointestinal disorders (7 sources)History of bypass of stomach; Translations: [Bariatric surgery status]47-20-4956YssdmqgyIsnnq hematologic conditions (1 source)High troponin I level; Translations: [Other specified abnormalities of plasma proteins]45-90-1094EowcgztuXrknt hematologic conditions (1 source)Raised cardiac enzyme or marker; Translations: [Other specified abnormalities of plasma proteins]77-01-1140QzutntkgEtopi liver diseases (4 sources)Steatosis of liver; Translations: [Fatty (change of) liver, not elsewhere classified]97-50-7390AqrezfuSangr nervous system disorders (16 sources)Cervical myelopathy; Translations: [Disease of spinal cord, unspecified]ChronicOther nervous system disorders (4 sources)Disease of spinal cord, unspecified; Translations: [Cervical spondylosis with myelopathy]Onset: 460875-04-8117XaifpogAbsic nervous system disorders (20 sources)Paresthesia; Translations: [Paresthesia of skin]EpisodicOther nervous system disorders (5 sources)Paresthesia of right lower limb; Translations: [Paresthesia of skin] 94-51-3196PxljqavaPfjsm nervous system disorders (7 sources)Reduced mobility; Translations: [Other abnormalities of gait and mobility]09-46-7300XxyjtqeuHhiyv nervous system disorders (4 sources)Tremor; Translations: [Tremor, unspecified]10-95-7250GemoxecnRujwf nervous system disorders (2 sources)Tremor, unspecified; Translations: [Abnormal involuntary movements] 33-31-4337KvnxjexwCuabt non-traumatic joint disorders (20 sources)Arthralgia of the pelvic region and thigh; Translations: [Pain in left hip]EpisodicOther nutritional; endocrine; and metabolic disorders (4 sources)Body mass index 30+ - obesity; Translations: [Obesity, unspecified] Onset: 294081-02-2381UjifvndMtfvt nutritional; endocrine; and metabolic disorders (20 sources)Morbid obesity; Translations: [Morbid (severe) obesity due to excess calories]Onset: 08-05-2016 Resolved: 667654-33-8806KonmdtlXrggtpk on above:Problem List clean-up per request of Phys. EHR CmteOther nutritional; endocrine; and metabolic disorders (12 sources)Obesity; Translations: [Obesity, unspecified]16-00-6997DswgosaIebwh nutritional; endocrine; and metabolic disorders (20 sources)Body mass index 40+ - severely obese; Translations: [Body mass index (BMI) 45.0-49.9, adult]Onset: 08-05-2016 Resolved: 881965-87-8910ShtlmpmXlugr nutritional; endocrine; and metabolic disorders (1 source)Body mass index (BMI) 45.0-49.9, adultChronicOther nutritional; endocrine; and metabolic disorders (1 source)Morbid (severe) obesity due to excess caloriesChronicOther nutritional; endocrine; and metabolic disorders (12 sources)Obesity caused by energy imbalance; Translations: [Morbid (severe) obesity due to excess calories]Onset: 880095-32-0345RerewwyMrxtc nutritional; endocrine; and metabolic disorders (3 sources)Obesity, unspecified; Translations: [Obesity, unspecified]08-03-2023 ChronicOther screening for suspected conditions (not mental disorders or infectious disease) (4 sources)Imaging result abnormal; Translations: [Abnormal findings on diagnostic imaging of other specified body structures]Onset: 03-30-2023 33-43-2275ZeycedjDaijt screening for suspected conditions (not mental disorders or infectious disease) (20 sources)Culture positive for methicillin resistant Staphylococcus aureus; Translations: [Mammography abnormal]Onset: 683327-38-2135LvhxippyVjimijx on above:MRSA urine 03/07/2019MRSA urine 03/07/2019Problem List clean-up per request of Phys. EHR CmteOther skin disorders (20 sources)Epidermoid cyst of skin; Translations: [Sebaceous cyst]EpisodicOther skin disorders (4 sources)Broken skin; Translations: [Other skin changes]79-39-5057Txgpxuku Paralysis (4 sources)Paraplegia, unspecified; Translations: [PARAPLEGIA UNSPECIFIED]Onset: 18-47-0409GvfsrsePmbh-; endo-; and myocarditis; cardiomyopathy (except that caused by tuberculosis or sexually transmitted disease) (4 sources)Pericardial effusion; Translations: [Pericardial effusion]09-04-2018 EpisodicPulmonary heart disease (20 sources)Pulmonary embolism; Translations: [H/O: pulmonary embolus]Onset: 09-03-2018 Resolved: 225128-62-6348LhbylscwJaoxetf on above:Problem List clean-up per request of Phys. EHR CmteResidual codes; unclassified (9 sources)Obstructive sleep apnea syndrome; Translations: [Obstructive sleep apnea (adult) (pediatric)]Onset: 885552-27-3841OehcfniEkfjlttz codes; unclassified (6 sources)Sleep -05-3023TupjpcvNmjgromk codes; unclassified (20 sources)Obstructive sleep apnea of adult; Translations: [Obstructive sleep apnea (adult) (pediatric)]ChronicResidual codes; unclassified (20 sources)Edema; Translations: [Edema, unspecified]EpisodicResidual codes; unclassified (20 sources)History of excision of intestinal structure; Translations: [Acquired absence of other specified parts of digestive tract]EpisodicResidual codes; unclassified (7 sources)Postoperative state; Translations: [Other specified postprocedural states]35-15-8820QczjsvbwSltpegv on above:Problem List clean-up per request of Phys. EHR CmteResidual codes; unclassified (15 sources)Postprocedural state finding; Translations: [Other specified postprocedural states]02-12-6178LpknmpafTrzphqnx codes; unclassified (1 source)Asymptomatic menopausal stateEpisodicResidual codes; unclassified (5 sources)Activity of daily living (ADL) alteration; Translations: [Other specified health status]46-87-4173TcekcivkLzxumdhf codes; unclassified (3 sources)Other specified health status; Translations: [Other specified conditions influencing health status]52-51-7054AuwwaruaGwgiddtquwq; intervertebral disc disorders; other back problems (10 sources)Degeneration of lumbar intervertebral disc; Translations: [Other intervertebral disc degeneration, lumbar region]ChronicSpondylosis; intervertebral disc disorders; other back problems (20 sources)Lumbosacral radiculopathy; Translations: [Spinal stenosis in cervical region]Onset: 273616-22-8437VyeodzmoXqchqxe on above:Problem List clean-up per request of Phys. EHR CmteThyroid disorders (20 sources)Thyroid nodule; Translations: [Nontoxic single thyroid nodule] ChronicUnclassified (1 source)History of cervical spine fusion; Translations: [S/P cervical spinal fusion]Unclassified (6 sources)Drug therapy arqewzq23-67-1464Gleljvpilrie (4 sources)Asymptomatic microscopic -36-7544Xpspnsn tract infections (20 sources)Urinary tract infectious disease; Translations: [Urinary tract infection, site not specified]Onset: 91-73-7279UibutisbDpkcoll on above:Problem List clean-up per request of Phys. EHR Cmte Past or Other Problems Problem ClassificationProblemDateDocumented DateEpisodic/ChronicNeoplasms of unspecified nature or uncertain behavior (10 sources)Neoplasm of bladder; Translations: [Neoplasm of unspecified behavior of bladder]Onset: 502582-12-4960PuuhowxmZdvak connective tissue disease (3 sources)Neuralgia and neuritis, unspecifiedOnset: 02-24-2021 Resolved: 03-72-7205VdhpydknUxduk diseases of kidney and ureters (2 sources)Unspecified hydronephrosis; Translations: [Bilateral hydronephrosis] Onset: 13-53-6460SdjohbxzGbczs diseases of kidney and ureters (1 source)Other hydronephrosis; Translations: [Other hydronephrosis]Onset: 77-76-6252WkodkvdwMpbvo gastrointestinal disorders (5 sources)Bariatric surgery status; Translations: [Bariatric surgery status] Onset: 10-14-2021 Resolved: 17-73-6278PmosbiroSgfrc gastrointestinal disorders (2 sources)History of sleeve gastrectomy; Translations: [Bariatric surgery status]Onset: 414769-52-3621SklggdjwEeedj nervous system disorders (4 sources)Numbness of foot ; Translations: [Anesthesia of skin]Onset: 717802-40-1446IahsbxdwJgooxcbv codes; unclassified (4 sources)History of surgical procedure on cervical spine; Translations: [Other specified postprocedural states]Onset: 397889-97-7765IkgpkbgzOebfdesw codes; unclassified (2 sources)H/O: surgery; Translations: [Status post laparoscopic sleeve gastrectomy]Onset: 210507-47-8853Gyjtvssl Results Test NameValueInterpretationReference RangeFacilityAlanine aminotransferase [Enzymatic activity/volume] in Serum or PlasmaOrdered By: Lon Ibrahim on 12-43-2311ZIU [Catalytic activity/Vol]18 U/L7-52[facility] CenterAlbumin [Mass/volume] in Serum or Plasma by Bromocresol green (BCG) dye binding methoOrdered By: Lon Ibrahim on 70-98-0834Libjhfk BCG dye [Mass/Vol]3.8 g/dL3.5-5.7FOhioHealth Riverside Methodist HospitalAlkaline phosphatase [Enzymatic activity/volume] in Serum or PlasmaOrdered By: Lon Ibrahim on 81-47-3978PAR [Catalytic activity/Vol]55 U/A86-282IsrsehicxAdena Regional Medical CenterAspartate aminotransferase [Enzymatic activity/volume] in Serum or PlasmaOrdered By: Lon Ibrahim on 89-58-9867ONK [Catalytic activity/Vol]18 U/J53-60FgddpdxcqAdena Regional Medical CenterBasophils Auto (Bld) [#/Vol]Ordered By: Lon Ibrahim on 12-13-2024 Basophils (Bld) [#/Vol]0.1 10*3/uL0.0-0.2FOhioHealth Riverside Methodist Hospital Basophils/100 WBC Auto (Bld)Ordered By: Lon Ibrahim on 07-99-0101Rxprwpxcp/100 WBC (Bld)0.6 %.[facility] CenterBilirubin.total [Mass/volume] in Serum or PlasmaOrdered By: Lon Ibrahim 33-69-9075Oimhojbsv [Mass/Vol]0.3 mg/dL0.3-1.0[facility] CenterCalcium [Mass/volume] in Serum or PlasmaOrdered By: Lon Ibrahim on 01-96-9354Wirshgc [Mass/Vol]9.4 mg/dL8.6-10.3 [facility] CenterCarbon dioxide, total [Moles/volume] in Serum or PlasmaOrdered By: Lon Ibrahim on 27-19-3083TQ7 [Moles/Vol]24.6 mmol/L21.0-31.0 [facility] CenterChloride [Moles/volume] in Serum or Plasma Ordered By: Lon Ibrahim on 71-99-0309Pbitnkhz [Moles/Vol]109 mmol/ZEkaj46-037 [facility] CenterCholesterol [Mass/volume] in Serum or Plasma Ordered By: Lon Ibrahim on 91-05-4093Zedfnxztnpu [Mass/Vol]170 mg/vF070-447 [facility] CenterComment on above:Chol less than 200 mg/dl low riskChol 201-239 mg/dl borderline riskChol 240 mg/dl and greater high risk Cholesterol in HDL [Mass/volume] in Serum or PlasmaOrdered By: Lon Ibrahim on 00-20-5786Cgwvfcacnmy in HDL [Mass/Vol]49 mg/rM20-43TxlbmcwppAdena Regional Medical CenterComment on above:HDL CHOL ATP-III CLASSIFICATION Cardiovascular RiskHDL > or equal to 60 mg/dL LOWHDL < 40 mg/dL HIGHCholesterol in LDL Calc [Mass/Vol] Ordered By: Lon Ibrahim on 09-71-4568Akhrpnxtwpw in LDL [Mass/Vol]73 mg/dL0-100 [facility] CenterComment on above:LDL ATP III CLASSIFICATIONLDL less than 100 mg/dL OptimalLDL 100-129 mg/dL Near or above udqvtgcDFS518-213 mg/dL Borderline highLDL 160-189 mg/dL HighLDL greater than 189 mg/dL Very high Cholesterol in VLDL Calc [Mass/Vol]Ordered By: Lon Ibrahim on 12-13-2024 Cholesterol in VLDL [Mass/Vol]48 mg/dLAdena Regional Medical Center Creatinine [Mass/volume] in Serum or PlasmaOrdered By: Lon Ibrahim on 12-13-2024 Creatinine [Mass/Vol]1.09 mg/dL0.60-1.20[facility] Eosinophils Auto (Bld) [#/Vol]Ordered By: Lon Ibrahim on 66-25-8779Zhghgwnvyke (Bld) [#/Vol]0.2 10*3/uL0.0-0.45[facility] CenterEosinophils/100 WBC Auto (Bld)Ordered By: Lon Ibrahim on 73-41-6618Rtndmdbprhh/100 WBC (Bld)2.1 %.[facility] CenterErythrocyte distribution width Auto (RBC) [Ratio]Ordered By: Lon Ibrahim on 87-49-5415Msfaqrupvss distribution width (RBC) [Ratio]14.3 %11.9-15.3FOhioHealth Riverside Methodist HospitalGlobulin Calc (S) [Mass/Vol]Ordered By: Lon Ibrahim on 51-02-6056Qaktughg (S) [Mass/Vol]3.6 g/dL [facility] CenterGlomerular filtration rate [Volume Rate/Area] in Serum, Plasma or Blood by CreatinineOrdered By: Lon Ibrahim on 12-13-2024 Glomerular filtration rate [Volume Rate/Area] in Serum, Plasma or Blood by Osubnwfjdg52.995 mL/MinAdena Regional Medical CenterGlucose [Mass/volume] in Serum or PlasmaOrdered By: Lon Ibrahim on 86-50-1870Rqvttsj [Mass/Vol]94 mg/dL 70-100[facility] CenterComment on above:ADA recommended reference rangeRandom Glucose Reference Range is dependent on time and content of last meal. Glucose of more than 200 mg/dL in a nonstressed, ambulatory subject supports the diagnosisof Diabetes Mellitus.Hematocrit Auto (Bld) [Volume fraction]Ordered By: Lon Ibrahim on 08-51-9069Msszxqqthm (Bld) [Volume fraction] 44.1 %34.0-46.4FOhioHealth Riverside Methodist HospitalHemoglobin [Mass/volume] in BloodOrdered By: Lon Ibrahim on 40-34-3749Xdrqrfxzfn (Bld) [Mass/Vol]14.4 g/dL 11.8-15.4FOhioHealth Riverside Methodist HospitalLeukocytes [#/volume] corrected for nucleated erythrocytes in Blood by Automated counOrdered By: Lon Ibrahim on 20-32-4787VWY corrected for nucl RBC Auto (Bld) [#/Vol]8.7 10*3/uL3.8-11.6 [facility] CenterLymphocytes Auto (Bld) [#/Vol]Ordered By: Lon Ibrahim on 02-26-2038Enbnlwuggiq (Bld) [#/Vol]1.6 10*3/uL1.00-4.8[facility] CenterLymphocytes/100 WBC Auto (Bld)Ordered By: Lon Ibrahim on 58-35-5411Yoxuvctjwgf/100 WBC (Bld)18.8 %.[facility] CenterMCH Auto (RBC) [Entitic mass]Ordered By: Lon Ibrahim on 44-60-8504HVI (RBC) [Entitic mass]30.9 pg24.7-34.3FOhioHealth Riverside Methodist HospitalMCHC Auto (RBC) [Mass/Vol] Ordered By: Lon Ibrahim on 58-60-0693LLZJ (RBC) [Mass/Vol]32.6 g/dL32.0-35.0 [facility] CenterMCV Auto (RBC) [Entitic vol]Ordered By: Lon Ibrahim on 83-27-5815IFE (RBC) [Entitic vol]94.9 yK96-003EclrflrfsAdena Regional Medical CenterMonocytes Auto (Bld) [#/Vol]Ordered By: Lon Ibrahim on 78-97-5597Zzcblsrru (Bld) [#/Vol]0.5 10*3/uL0.0-0.8[facility] CenterMonocytes/100 WBC Auto (Bld)Ordered By: Lon Ibrahim on 01-78-9526Rbbjusszz/100 WBC (Bld)5.7 %. [facility] CenterNeutrophils Auto (Bld) [#/Vol]Ordered By: Lon Ibrahim on 17-62-7224Gdunsqcdnuq (Bld) [#/Vol]6.3 10*3/uL1.8-7.7FOhioHealth Riverside Methodist HospitalNeutrophils/100 WBC Auto (Bld)Ordered By: Lon Ibrahim on 88-75-1235Sekoszvdogz/100 WBC (Bld)72.8 %.[facility] CenterNo Panel InformationOrdered By: Lon Ibrahim on 11-62-5912Qqkcwthv Creatinine Clearance (ChemN/AFOhioHealth Riverside Methodist HospitalNucleated erythrocytes [Presence] in Blood by Automated countOrdered By: Lon Ibrahim on 12-13-2024 Nucleated RBC Auto Ql (Bld)0.1 /100{WBC}0-0.5FOhioHealth Riverside Methodist Hospital Platelet mean volume Auto (Bld) [Entitic vol]Ordered By: Lon Ibrahim on 34-58-2257Pgccodlm mean volume (Bld) [Entitic vol]8.1 fL6.3-10.7FOhioHealth Riverside Methodist HospitalPlatelets Auto (Bld) [#/Vol]Ordered By: Lon Ibrahim on 17-17-0796Mdeyfksho (Bld) [#/Vol]298 10*3/oR745-757QinkvkthdAdena Regional Medical CenterPotassium [Moles/volume] in Serum or PlasmaOrdered By: Lon Ibrahim on 45-02-8776Idnselbso [Moles/Vol]4.1 mmol/L3.5-5.1FOhioHealth Riverside Methodist HospitalProtein [Mass/volume] in Serum or PlasmaOrdered By: Lon Ibrahim on 46-98-7317Fdxpdda [Mass/Vol]7.4 g/dL6.4-8.9[facility] CenterRBC Auto (d) [#/Vol]Ordered By: Lon Ibrahim on 52-40-6585YGX (d) [#/Vol]4.65 10*6/uL3.60-5.00[facility]ula [facility] Hospitalerum or plasma albumin/globulin mass ratioOrdered By: Lon Ibrahim on 80-75-3299Ahwexbr/Globulin [Mass ratio]1.1 {ratio}[facility]ula [facility] Hospitalerum or plasma anion gap determinationOrdered By: Lon Ibrahim on 48-97-3821Lncta gap [Moles/Vol]11.5 mmol/L6.0-15.0[facility] Hospitalerum or plasma total cholesterol/high density lipoprotein (HDL) cholesterol mass ratOrdered By: Lon Ibrahim on 94-56-5264Hpmrnofdpqa.total/Cholesterol in HDL [Mass ratio]3.5 {ratio} <5.0[facility]ula [facility] Hospitalodium [Moles/volume] in Serum or Plasma Ordered By: Lon Ibrahim on 25-68-4599Cxpssk [Moles/Vol]141 mmol/P616-813ByijqnenwAdena Regional Medical CenterThyrotropin [Units/volume] in Serum or PlasmaOrdered By: Lon Ibrahim on 40-46-9119ITS Qn1.33 m[IU]/L0.45-5.33[facility] CenterTriglyceride [Mass/volume] in Serum or PlasmaOrdered By: Lon Ibrahim on 20-43-3112Khfvpitkxvtl [Mass/Vol]242 mg/dLHigh0-149[facility] CenterComment on above:TRIG ATP III CLASSIFICATIONTRIG less than 150 mg/dL NormalTRIG 150-199 mg/dL Borderline highTRIG 200-500 mg/dL High TRIG greater than 500 mg/dL Very highStandard traceable to the Center for Disease Conrtrol and Prevention (CDC) test method.Urea nitrogen [Mass/volume] in Serum or Plasma Ordered By: Lon Ibrahim on 89-50-6452Dsrg nitrogen [Mass/Vol]16 mg/dL09-01 [facility] CenterWBC Auto (Bld) [#/Vol]Ordered By: Lon Ibrahim on 69-96-2280ALG (Bld) [#/Vol]8.7 10*3/uL3.8-11.6FOhioHealth Riverside Methodist Hospital A1C with Estimated Average Gluon 94-92-0153Tfsxllg [Mass/Vol]103 mg/dLNormAdventHealth Daytona Beach Physician GroupComment on above:Result Comment: PERFORMED BY: [place] [address] PATHOLOGIST S[employer]IOR [employer] DEVELOPER DINO ANDREWS M.D.Performed By: #### LIPID, CBC, TSH3, A1C [facility] eA, CMP #### [facility] [address] [place] [address] USAAlanine aminotransferase [Enzymatic activity/volume] in Serum or PlasmaOrdered By: Lon Ibrahim on 36-29-2109OFE [Catalytic activity/Vol] 15 U/L7-52[facility] Medical CenterComment on above:Performed By: #### LIPID, CBC, TSH3, A1C [facility] Mya, CMP #### [facility] [address] [place] [address] USAAlbumin [Mass/volume] in Serum or Plasma by Bromocresol green (BCG) dye binding methoOrdered By: Lon Ibrahim on 68-45-8466Tortbro BCG dye [Mass/Vol]3.9 g/dL3.5-5.7FOhioHealth Riverside Methodist HospitalAlkaline phosphatase [Enzymatic activity/volume] in Serum or PlasmaOrdered By: Lon Ibrahim on 32-05-8623JVS [Catalytic activity/Vol]47 U/U80-640AnbkwovkwAdena Regional Medical CenterComment on above:Performed By: #### LIPID, CBC, TSH3, A1C [facility] eA, CMP #### [place] [address] USAAspartate aminotransferase [Enzymatic activity/volume] in Serum or PlasmaOrdered By: Lon Ibrahim on 18-05-8384OFD [Catalytic activity/Vol] 14 U/K41-33YjzspkjgrAdena Regional Medical CenterComment on above:Performed By: #### LIPID, CBC, TSH3, A1C [facility] eA, CMP #### [place] [address] USAAutomated basophil %Ordered By: Lon Ibrahim on 08-03-2023 Basophils/100 WBC (Bld)0.4 %.[facility] Medical CenterComment on above: Performed By: #### LIPID, CBC, TSH3, A1C [facility] eA, CMP #### [place] [address] USAAutomated basophil countOrdered By: Lon Ibrahim on 38-97-2644Ctdsqmpjo (Bld) [#/Vol]0.0 10*3/uL0.0-0.2FOhioHealth Riverside Methodist HospitalComment on above:Result Comment: PERFORMED BY: [place] [address] PATHOLOGIST S[employer]IOR [employer] DEVELOPER DINO ANDREWS M.D.Performed By: #### LIPID, CBC, TSH3, A1C [facility] eA, CMP #### [place] [address] USAAutomated blood monocyte countOrdered By: Lon Ibrahim on 99-14-1949Aunoovwix (Bld) [#/Vol]0.4 10*3/uL0.0-0.8[facility] CenterComment on above:Performed By: #### LIPID, CBC, TSH3, A1C [facility] eA, CMP #### [place] [address] USAAutomated eosinophil %Ordered By: Lon Ibrahim on 08-03-2023 Eosinophils/100 WBC (Bld)2.0 %.[facility] CenterComment on above:Performed By: #### LIPID, CBC, TSH3, A1C WT eA, CMP #### [facility] [address] [place] [address] USAAutomated eosinophil countOrdered By: Lon Ibrahim on 11-28-1208Oawbgacurka (Bld) [#/Vol]0.1 10*3/uL0.0-0.45[facility] CenterComment on above:Performed By: #### LIPID, CBC, TSH3, A1C WT eA, CMP #### [facility] [address] [place] [address] USAAutomated monocyte %Ordered By: Lon Ibrahim on 08-03-2023 Monocytes/100 WBC (Bld)6.0 %.[facility] Medical CenterComment on above: Performed By: #### LIPID, CBC, TSH3, A1C [facility] eA, CMP #### [facility] [address] [place] [address] USAAutomated neutrophil %Ordered By: Lon Ibrahim on 08-03-2023 Neutrophils/100 WBC (Bld)60.8 %.[facility] Medical CenterComment on above:Performed By: #### LIPID, CBC, TSH3, A1C [facility] eA, CMP #### [facility] [address] [place] [address] USABilirubin.total [Mass/volume] in Serum or PlasmaOrdered By: Lon Ibrahim on 78-78-7795Fdvcuukca [Mass/Vol]0.5 mg/dL0.3-1.0[facility] CenterComment on above:Performed By: #### LIPID, CBC, TSH3, A1C WT eA, CMP #### [facility] [address] [place] [address] USACalcium [Mass/volume] in Serum or PlasmaOrdered By: Lon Ibrahim on 98-95-7209Ktjkabt [Mass/Vol]9.1 mg/dL8.6-10.3FOhioHealth Riverside Methodist HospitalComment on above:Performed By: #### LIPID, CBC, TSH3, A1C WT eA, CMP #### [facility] [address] [place] [address] USACarbon dioxide, total [Moles/volume] in Serum or Plasma Ordered By: Lon Ibrahim on 59-54-8282RH7 [Moles/Vol]26.2 mmol/L21.0-31.0[facility] CenterComment on above:Performed By: #### LIPID, CBC, TSH3, A1C [facility] eA, CMP #### [facility] [address] [place] [address] USAChloride [Moles/volume] in Serum or PlasmaOrdered By: Lon Ibrahim on 42-97-9822Osxojgjd [Moles/Vol]109 mmol/KNkvp75-942ExcmpvzmdAdena Regional Medical CenterComment on above:Performed By: #### LIPID, CBC, TSH3, A1C [facility] Mya, CMP #### [facility] [address] [place] [address] USACholesterol [Mass/volume] in Serum or PlasmaOrdered By: Lon Ibrahim on 20-75-6012Zjqjhufqdlp [Mass/Vol]201 mg/xAKobn084-610GewryojpgAdena Regional Medical CenterComment on above:Chol less than 200 mg/dl low riskChol 201-239 mg/dl borderline riskChol 240 mg/dl and greater high riskResult Comment: Chol less than 200 mg/dl low risk Chol 201-239 mg/dl borderline risk Chol 240 mg/dl and greater high riskPerformed By: #### LIPID, CBC, TSH3, A1C WT Mya, CMP #### [facility] [address] [place] [address] USACholesterol in LDL Calc [Mass/Vol]Ordered By: Lon Ibrahim on 41-07-9162Zbeibygrgtx in LDL [Mass/Vol]107 mg/dLHigh0-100[facility] CenterComment on above:LDL ATP III CLASSIFICATIONLDL less than 100 mg/dL OptimalLDL 100-129 mg/dL Near or above qhqhqxoZAL240-944 mg/dL Borderline highLDL 160-189 mg/dL HighLDL greater than 189 mg/dL Very highCholesterol in VLDL Calc [Mass/Vol]Ordered By: Lon Ibrahim on 72-13-0976Tqoujhubogu in VLDL [Mass/Vol]39 mg/dLAdena Regional Medical CenterComplete Blood Count Auto Diffon 78-49-0427Nmuz Corpuscular HGB Conc33.2 g/rRXcktit14.0-35.0The [facility]dwell Physician GroupComment on above:Performed By: #### LIPID, CBC, TSH3, A1C WTH eA, CMP #### [facility] [address] [place] [address] USANRBC%0.1 /100{WBC}Normal0-0.5The [facility] Comment on above:Performed By: #### LIPID, CBC, TSH3, A1C WTH eA, CMP #### [facility] [address] [place] [address] USAComprehensive Metabolic Panelon 34-67-0687Qxdtypz [Mass/Vol]3.9 g/dLNormal3.5-5.7The [facility] Physician [facility] HospitalComment on above: Performed By: #### LIPID, CBC, TSH3, A1C WTH eA, CMP #### [place] [address] USAGFR/1.73 sq M.predicted MDRD (S/P/Bld) [Vol rate/Area] mL/min/{1.73_m2}NormalThe [facility] Physician [facility] HospitalComment on above:Performed By: #### LIPID, CBC, TSH3, A1C WTH eA, CMP #### [place] [address] USACreatinine [Mass/volume] in Serum or PlasmaOrdered By: Lon Ibrahim on 10-58-3254Bizvoavcvh [Mass/Vol]1.02 mg/dL0.60-1.20[facility] CenterComment on above:Performed By: #### LIPID, CBC, TSH3, A1C WTH eA, CMP #### [place] [address] USAErythrocyte distribution width [Ratio] by Automated count Ordered By: Lon Ibrahim on 64-25-9151Zsieqydfjiu distribution width (RBC) [Ratio] 14.7 %11.9-15.3FOhioHealth Riverside Methodist HospitalComment on above:Performed By: #### LIPID, CBC, TSH3, A1C WTH eA, CMP #### [address] [place] [address] USAErythrocytes [#/volume] in Blood by Automated countOrdered By: Lon Ibrahim on 85-20-0214YDP (Bld) [#/Vol]4.50 10*6/uL3.60-5.00[facility] Medical CenterComment on above:Performed By: #### LIPID, CBC, TSH3, A1C WTH Mya, CMP #### [facility] [address] [place] [address] USAGlucose [Mass/volume] in Serum or PlasmaOrdered By: Lon Ibrahim on 27-11-2937Tobowcn [Mass/Vol]86 mg/rU60-430YvrwuypfwAdena Regional Medical CenterComment on above:ADA recommended reference rangeRandom Glucose Reference Range is dependent on time and content of last meal. Glucose of more than 200 mg/dL in a nonstressed, ambulatory subject supports the diagnosisof Diabetes Mellitus.Result Comment: Random Glucose Reference Range is dependent on time and content of last meal. Glucose of more than 200 mg/dL in a nonstressed, ambulatory subject supports the diagnosis of Diabetes Mellitus. ADA recommended reference rangePerformed By: #### LIPID, CBC, TSH3, A1C WT Mya, CMP #### [facility] [address] [place] [address] USAGlucose mean value [Mass/volume] in Blood Estimated from glycated hemoglobinOrdered By: Lon Ibrahim on 37-15-3319Kfbsyps glucose Estimated from glycated hemoglobin (Bld) [Mass/Vol]103 mg/dLAdena Regional Medical CenterHematocrit [Volume Fraction] of Blood by Automated countOrdered By: Lon Ibrahim on 12-00-4856Nacnkrsqvi (Bld) [Volume fraction]41.8 %34.0-46.4FOhioHealth Riverside Methodist HospitalComment on above:Performed By: #### LIPID, CBC, TSH3, A1C WT Mya, CMP #### [facility] [address] [place] [address] USAHemoglobin A1c percentageOrdered By: Lon Ibrahim on 80-58-5587XiY4h (Bld) [Mass fraction]5.2 %4.3-5.6FOhioHealth Riverside Methodist HospitalComment on above:Increased risk for diabetes: 5.7 - 6.4diabetes: >6.4glycemic control for adults with diabetes: <7.0Result Comment: Increased risk for diabetes: 5.7 - 6.4 diabetes: >6.4 glycemic control for adults with diabetes: <7.0Performed By: #### LIPID, CBC, TSH3, A1C WTH eA, CMP #### [facility] [address] [place] [address] USAHemoglobin [Mass/volume] in BloodOrdered By: Lon Ibrahim on 38-20-8110Bsmarsuexs (Bld) [Mass/Vol]13.9 g/dL11.8-15.4FOhioHealth Riverside Methodist HospitalComment on above:Performed By: #### LIPID, CBC, TSH3, A1C WTH Mya, CMP #### [facility] [address] [place] [address] USALeukocytes [#/volume] corrected for nucleated erythrocytes in Blood by Automated counOrdered By: Lon Ibrahim on 36-96-5479NDU corrected for nucl RBC Auto (Bld) [#/Vol]6.4 10*3/uL3.8-11.6FOhioHealth Riverside Methodist Hospital Leukocytes [#/volume] in Blood by Automated countOrdered By: Lon Ibrahim on 32-45-2505GCQ (Bld) [#/Vol]6.4 10*3/uL3.8-11.6FOhioHealth Riverside Methodist Hospital Comment on above:Performed By: #### LIPID, CBC, TSH3, A1C WTH Mya, CMP #### [facility] [address] [place] [address] USALipid Panelon 15-97-8392GOF Cholesterol,Evmxdhtdhl023 mg/dLHigh0-100The [facility] Physician GroupComment on above:Result Comment: LDL ATP III CLASSIFICATION LDL less than 100 mg/dL Optimal LDL 100-129 mg/dL Near or above optimal LDL 130-159 mg/dL Borderline high LDL 160-189 mg/dL High LDL greater than 189 mg/dL Very highPerformed By: #### LIPID, CBC, TSH3, A1C WTH eA, CMP #### [facility] [address] [place] [id number] USATriglyceride w/Zlhlzc652 mg/dLHigh0-149The [facility] Physician GroupComment on above:Result Comment: TRIG ATP III CLASSIFICATION TRIG less than 150 mg/dL Normal TRIG 150-199 mg/dL Borderline high TRIG 200-500 mg/dL High TRIG greater than 500 mg/dL Very high Standard traceable to the Center for Disease Conrtrol and Prevention (CDC) test method.Performed By: #### LIPID, CBC, TSH3, A1C WTH eA, CMP #### [facility] [address] [place] [address] USAVLDL JNYEJAGPGJA59 mg/dLNormAdventHealth Daytona Beach Physician GroupComment on above:Performed By: #### LIPID, CBC, TSH3, A1C WTH eA, CMP #### [place] [address] USALymphocytes [#/volume] in Blood by Automated countOrdered By: Lon Ibrahim on 50-41-0403Gksnjrhkccv (Bld) [#/Vol]2.0 10*3/uL1.00-4.8 [facility] CenterComment on above:Performed By: #### LIPID, CBC, TSH3, A1C WTH eA, CMP #### [place] [id number] USALymphocytes/100 leukocytes in Blood by Automated count Ordered By: Lon Ibrahim on 19-52-2251Uuaypwwwdjz/100 WBC (Bld)30.8 %.[facility] Medical CenterComment on above:Performed By: #### LIPID, CBC, TSH3, A1C WTH eA, CMP #### [place] [id number] [facility] [Entitic mass] by Automated countOrdered By: Lon Ibrahim on 51-72-5373KTM (RBC) [Entitic mass]30.8 pg24.7-34.3FOhioHealth Riverside Methodist HospitalComment on above:Performed By: #### LIPID, CBC, TSH3, A1C WTH eA, CMP #### [place] [id number] [facility] Auto (RBC) [Mass/Vol]Ordered By: Lon Ibrahim on 43-94-2866FVCR (RBC) [Mass/Vol]33.2 g/dL32.0-35.0[facility] Medical CenterMCV [Entitic volume] by Automated countOrdered By: Lon Ibrahim on 62-11-8170YBR (RBC) [Entitic vol]93.0 uK85-274DnxrnyvnsAdena Regional Medical Center Comment on above:Performed By: #### LIPID, CBC, TSH3, A1C WT eA, CMP #### [facility] [address] [place] [address] USANeutrophils [#/volume] in Blood by Automated countOrdered By: Lon Ibrahim on 57-40-7893Sycbfdoswzd (Bld) [#/Vol]3.9 10*3/uL1.8-7.7FOhioHealth Riverside Methodist HospitalComment on above:Performed By: #### LIPID, CBC, TSH3, A1C [facility] Mya, CMP #### [facility] [address] [place] [address] USANo Panel InformationOrdered By: Lon Ibrahim on 08-03-2023 Estimated GFR (CKD-EPI)> 60.0 mL/MinAdena Regional Medical CenterPharmacy Creatinine Clearance (ChemN/UK HealthcareNucleated erythrocytes [Presence] in Blood by Automated countOrdered By: Lon Ibrahim on 21-87-7781Ndckpzwwb RBC Auto Ql (Bld)0.1 /100{WBC}0-0.5FOhioHealth Riverside Methodist HospitalPlatelet mean volume [Entitic volume] in Blood by Automated count Ordered By: Lon Ibrahim on 68-85-9955Whtwxwyo mean volume (Bld) [Entitic vol]8.7 fL6.3-10.7FOhioHealth Riverside Methodist HospitalComment on above:Performed By: #### LIPID, CBC, TSH3, A1C WTH eA, CMP #### [facility] [address] [place] [address] USAPlatelets [#/volume] in Blood by Automated countOrdered By: Lon Ibrahim on 48-52-4530Fuakrqwmn (Bld) [#/Vol]235 10*3/wQ117-548NabsnfbpzAdena Regional Medical CenterComment on above:Performed By: #### LIPID, CBC, TSH3, A1C WTH eA, CMP #### [facility] [address] [place] [address] USAPotassium [Moles/volume] in Serum or PlasmaOrdered By: Lon Kuns on 55-17-3164Texznklwc [Moles/Vol]4.3 mmol/L3.5-5.1FOhioHealth Riverside Methodist HospitalComment on above:Performed By: #### LIPID, CBC, TSH3, A1C WTH eA, CMP #### [facility] [address] [place] [address] USAProtein [Mass/volume] in Serum or PlasmaOrdered By: Lon Lindas on 89-34-9246Lbzedbn [Mass/Vol]7.2 g/dL6.4-8.9[facility] Medical CenterComment on above:Performed By: #### LIPID, CBC, TSH3, A1C WT Mya, CMP #### [facility] [address] [place] [address] USASerum globulin measurement by calculation (mass/volume) Ordered By: Lonalondra Morejons on 71-69-5895Dbmpzkks (S) [Mass/Vol]3.3 g/dLAdena Regional Medical CenterComment on above:Performed By: #### LIPID, CBC, TSH3, A1C WTH Mya, CMP #### [facility] [address] [place] [address] USASerum or plasma albumin/globulin mass ratioOrdered By: Lonalondra Morejons on 40-02-9676Xkoqbxi/Globulin [Mass ratio]1.2 {ratio}[facility] Medical CenterComment on above:Performed By: #### LIPID, CBC, TSH3, A1C WTH eA, CMP #### [facility] [address] [place] [address] USASerum or plasma anion gap determinationOrdered By: Lon Lindas on 75-21-5062Awrou gap [Moles/Vol]12.1 mmol/L6.0-15.0[facility] Medical CenterComment on above:Performed By: #### LIPID, CBC, TSH3, A1C WTH eA, CMP #### [facility] [address] [place] [id number] USASerum or plasma high density lipoprotein (HDL) cholesterol measurementOrdered By: Lon Ibrahim on 71-27-9354Mmhpwuunkat in HDL [Mass/Vol]55 mg/zY24-22WqewxqagkAdena Regional Medical CenterComment on above:HDL CHOL ATP-III CLASSIFICATION Cardiovascular RiskHDL > or equal to 60 mg/dL LOWHDL < 40 mg/dL HIGHResult Comment: HDL CHOL ATP-III CLASSIFICATION Cardiovascular Risk HDL > or equal to 60 mg/dL LOW HDL < 40 mg/dL HIGHPerformed By: #### LIPID, CBC, TSH3, A1C WT eA, CMP #### [facility] [address] [place], [place] [address] USASerum or plasma total cholesterol/high density lipoprotein (HDL) cholesterol mass ratOrdered By: Lon Ibrahim on 08-03-2023 Cholesterol.total/Cholesterol in HDL [Mass ratio]3.7 {ratio}<5.0A[facility] Medical CenterComment on above:Performed By: #### LIPID, CBC, TSH3, A1C WT eA, CMP #### [facility] [address] [place], [place] [address] USASodium [Moles/volume] in Serum or PlasmaOrdered By: Lon Ibrahim on 21-55-6721Robwkr [Moles/Vol]143 mmol/W023-841BlzihymxyAdena Regional Medical CenterComment on above:Performed By: #### LIPID, CBC, TSH3, A1C WT Mya, CMP #### [facility] [address] [place], [place] [address] USAThyrotropin [Units/volume] in Serum or PlasmaOrdered By: Lon Ibrahim on 12-24-3649SFI Qn1.60 m[IU]/L0.45-5.33A[facility] Medical CenterComment on above:Result Comment: PERFORMED BY: [place] [address] PATHOLOGIST SENIOR [employer] DEVELOPER DINO ANDREWS M.D.Performed By: #### LIPID, CBC, TSH3, A1C WTH Mya, CMP #### [facility] [address] [place] [address] USATriglyceride [Mass/volume] in Serum or PlasmaOrdered By: Lon Ibrahim on 86-67-2512Eudiswszzqon [Mass/Vol]197 mg/dLHigh0-149A[facility] Medical CenterComment on above:TRIG ATP III CLASSIFICATIONTRIG less than 150 mg/dL NormalTRIG 150-199 mg/dL Borderline highTRIG 200-500 mg/dL High TRIG greater than 500 mg/dL Very highStandard traceable to the Center for Disease Conrtrol and Prevention (CDC) test method.Urea nitrogen [Mass/volume] in Serum or PlasmaOrdered By: Lon Ibrahim on 19-79-0032Vxqu nitrogen [Mass/Vol]30 mg/dLHigh7-25A[facility] Medical CenterComment on above:Performed By: #### LIPID, CBC, TSH3, A1C [facility] Mya, CMP #### [facility] [address] [place] [address] USACNOVon 20-00-8146LCXTFiuwtd Visit (UROLLN) CARRIE FLETCHER ([id number]) 1970 F Date Time Provider Department 07/14/23 3:30 PM HEATHER FERNANDES During your visit today, we recorded the following information about you: Pulse Blood pressure Weight 88/minute 130/78 158.8 kg Heather Fernandes, [facility] 07/14/2023 6:52 PM Signed Carrie Fletcher [id number] [facility] [address] HISTORY OF PRESENT ILLNESS: Seen 06/04/23 for bladder mass and B/L moderate-marded hydronephrosis Pt stated that was urinating prior to catheter placement, pt stated that have desire to urinate. Jansen catheter removed with ease Urine in bag was yellow slightly cloudy Pt stated that have HST of constipation Renal US 04/15/23: Irregular echogenic material within the urinary bladder and probable wall thickening, suspicious for urothelial neoplasm. Urology consultation and potentially further assessment with cystoscopy is suggested. Bilateral moderate-marked hydronephrosis, right greater than left. Findings are likely secondary to distal ureteral obstruction in light of urinary bladder findings. If warranted, this can be further assessed with CT Urogram. US of kidney 06/01/23= IMPRESSION: Limited exam due to poor acoustic penetration. Mild bilateral hydronephrosis is suggested. Decompressed urinary bladder surrounding a Jansen catheter. cysto 05/04/23= DIAGNOSIS: Acute cystitis with pyuria, debris and multiple small diverticuli CT abdomen pelvis wo/w 04/28/23= Chronic marded hydronephrosis and hydroureter B/L secondary to irregular urinary bladder wall thickening most suggestive of neoplasm No appreciable lymphadenopathy or metastatic disease. L5-S1 marked degenerative disc disease Coming bladder mass, hydro, neurogenic bladder (new finding today 07/14/23) Denies gross hematuria Denies burning with urination Pt stated is doing well will cont with present regiment FYB=127 ML US kidney/pelvic w PVR 07/06/23= IMPRESSION: 1. Marked thickening of the wall of the urinary bladder with bladder wall trabeculation. This was also present on a prior outside CT scan from 04/28/2023. This could be secondary to bladder outlet obstruction, neurogenic bladder, or urothelial malignancy. This is not adequately evaluated on ultrasound can be further evaluated with cystoscopy if not already performed. Prevoid bladder volume measures 259 mL and the post void bladder volume measures 138 mL. 2. Mild right hydronephrosis and hydroureter and trace left hydronephrosis. This appears improved when compared to the prior exams. Location: bladder mass, hydro Pain Character: none Severity Scale: see lab, see X-rays Duration: few weeks PAST MEDICAL HISTORY Diagnosis Date A-fib (HCC) Foot drop, left foot Nerve damage Sleep apnea PAST SURGICAL HISTORY Procedure Laterality Date BACK SURGERY HX GASTRIC BYPASS HX No family history on file. Social History [...] 1 TABLET BY MOUTH TWICE A DAY Docusate Sodium 250 mg capsule Stool Softener [...] mouth. sennosides (SENOKOT ORAL) Take by mouth. solifenacin (VESICARE) 5 mg tablet Take 15 mg by mouth as directed. TAKE 2 TABLETS BY MOUTH IN THE MORNING, AND 1 TABLET IN THE EVENING (Patient not taking: Reported on 07/14/2023) No current facility-administered medications for this visit. [...] GI: No epigastric discomfort, no blood in stoo (more content not included)... [facility] Panel Informationon [id number]: 1. Marked thickening of the wall of the urinary bladder with bladder wall trabeculation. This was also present on a prior outside CT scan from 04/28/2023. This could be secondary to bladder outlet obstruction, neurogenic bladder, or urothelial malignancy. This is not adequately evaluated on ultrasound can be further evaluated with cystoscopy if not already performed. Prevoid bladder volume measures 259 mL and the post void bladder volume measures 138 mL. 2. Mild right hydronephrosis and hydroureter and trace left hydronephrosis. This appears improved when compared to the prior exams. Frothing Machine Operator: PSCB Transcribe Date/Time: Jul 06 2023 9:38P Dictated by : MARIBEL ROSADO MD This examination was interpreted and the report reviewed and electronically signed by: MARIBEL ROSADO MD on Jul 06 2023 9:48PM [facility] DIVISION OF RADIOLOGYRadiology Study observation (narrative)[facility] Panel InformationOrdered By: Cc Provider on [id number] ClinicUS KIDNEY/BLADDERon [id number] KIDNEY/BLADDER* * *Final Report* * * DATE OF EXAM: Jul 06 2023 1:40PM [facility] 105 - KIDNEY/BLADDER / PROCEDURE REASON: Hydronephrosis, unspecified hydronephrosis type * * * * Physician Interpretation * * * * EXAMINATION: RENAL ULTRASOUND CLINICAL HISTORY: Hydronephrosis. TECHNIQUE: Sonography of the kidneys and urinary bladder was performed. Images were obtained and stored in a permanent archive. MQ: UR_1 COMPARISON: Renal ultrasound from 06/01/[address] the abdomen pelvis with and without contrast from 04/28/2023 RESULT: Right Kidney: -Renal length: 13.4 cm -Parenchyma: Normal parenchymal echogenicity. Mild cortical atrophy. -Collecting system: Mild right hydronephrosis and hydroureter. -Calculus: No echogenic, shadowing calculus. -Lesion: 4.0 x 4.8 x 4.7 cm simple appearing cyst along the upper pole.. Left Kidney: -Renal length: 12.8 cm -Parenchyma: Normal parenchymal echogenicity. Mild cortical atrophy -Collecting system: Trace left hydronephrosis. -Calculus: No echogenic, shadowing calculus. -Lesion: 1.3 x 1.2 x 1.3 cm simple appearing cyst on the upper pole. Bladder: Marked thickening of the wall of the urinary bladder with bladder wall trabeculation. Prevoid bladder volume measures 259 mL and the post void bladder volume measures 138 mL. IMPRESSION: 1. Marked thickening of the wall of the urinary bladder with bladder wall trabeculation. This was also present on a prior outside CT scan from 04/28/2023. This could be secondary to bladder outlet obstruction, neurogenic bladder, or urothelial malignancy. This is not adequately evaluated on ultrasound can be further evaluated with cystoscopy if not already performed. Prevoid bladder volume measures 259 mL and the post void bladder volume measures 138 mL. 2. Mild right hydronephrosis and hydroureter and trace left hydronephrosis. This appears improved when compared to the prior exams. Frothing Machine Operator: PSCB Transcribe Date/Time: Jul 06 2023 9:38P Dictated by : MARIBEL ROSADO MD This examination was interpreted and the report reviewed and electronically signed by: MARIBEL ROSADO MD on Jul 06 2023 9:48PM EST [id number] Berger HospitalUS Kidney - bilateral and Urinary bladderon 07-06-2023* * *Final Report* * * DATE OF EXAM: Jul 06 2023 1:40PM [address] KIDNEY/BLADDER / PROCEDURE REASON: Hydronephrosis, unspecified hydronephrosis type * * * * Physician Interpretation * * * * EXAMINATION: RENAL ULTRASOUND CLINICAL HISTORY: Hydronephrosis. TECHNIQUE: Sonography of the kidneys and urinary bladder was performed. Images were obtained and stored in a permanent archive. MQ: UR_1 COMPARISON: Renal ultrasound from 06/01/[address] the abdomen pelvis with and without contrast from 04/28/2023 RESULT: Right Kidney: -Renal length: 13.4 cm -Parenchyma: Normal parenchymal echogenicity. Mild cortical atrophy. -Collecting system: Mild right hydronephrosis and hydroureter. -Calculus: No echogenic, shadowing calculus. -Lesion: 4.0 x 4.8 x 4.7 cm simple appearing cyst along the upper pole.. Left Kidney: -Renal length: 12.8 cm -Parenchyma: Normal parenchymal echogenicity. Mild cortical atrophy -Collecting system: Trace left hydronephrosis. -Calculus: No echogenic, shadowing calculus. -Lesion: 1.3 x 1.2 x 1.3 cm simple appearing cyst on the upper pole. Bladder: Marked thickening of the wall of the urinary bladder with bladder wall trabeculation. Prevoid bladder volume measures 259 mL and the post void bladder volume measures 138 mL. DIVISION OF RADIOLOGYProvider, [facility] [place] - 07/06/2023 * * *Final Report* * * DATE OF EXAM: Jul 06 2023 1:40PM [facility] 1055 - US KIDNEY/BLADDER / PROCEDURE REASON: Hydronephrosis, unspecified hydronephrosis type * * * * Physician Interpretation * * * * EXAMINATION: RENAL ULTRASOUND CLINICAL HISTORY: Hydronephrosis. TECHNIQUE: Sonography of the kidneys and urinary bladder was performed. Images were obtained and stored in a permanent archive. MQ: UR_1 COMPARISON: Renal ultrasound from 06/01/[address] the abdomen pelvis with and without contrast from 04/28/2023 RESULT: Right Kidney: -Renal length: 13.4 cm -Parenchyma: Normal parenchymal echogenicity. Mild cortical atrophy. -Collecting system: Mild right hydronephrosis and hydroureter. -Calculus: No echogenic, shadowing calculus. -Lesion: 4.0 x 4.8 x 4.7 cm simple appearing cyst along the upper pole.. Left Kidney: -Renal length: 12.8 cm -Parenchyma: Normal parenchymal echogenicity. Mild cortical atrophy -Collecting system: Trace left hydronephrosis. -Calculus: No echogenic, shadowing calculus. -Lesion: 1.3 x 1.2 x 1.3 cm simple appearing cyst on the upper pole. Bladder: Marked thickening of the wall of the urinary bladder with bladder wall trabeculation. Prevoid bladder volume measures 259 mL and the post void bladder volume measures 138 mL. IMPRESSION IMPRESSION: 1. Marked thickening of the wall of the urinary bladder with bladder wall trabeculation. This was also present on a prior outside CT scan from 04/28/2023. This could be secondary to bladder outlet obstruction, neurogenic bladder, or urothelial malignancy. This is not adequately evaluated on ultrasound can be further evaluated with cystoscopy if not already performed. Prevoid bladder volume measures 259 mL and the post void bladder volume measures 138 mL. 2. Mild right hydronephrosis and hydroureter and trace left hydronephrosis. This appears improved when compared to the prior exams. Frothing Machine Operator: BEBETO Transcribe Date/Time: Jul 06 2023 9:38P Dictated by : MARIBEL ROSADO MD This examination was interpreted and the report reviewed and electronically signed by: MARIBEL ROSADO MD on Jul 06 2023 9:48PM EST [facility] PELVIS BLADDER -NBon [id number] PELVIS BLADDER -NB* * *Final Report* * * DATE OF EXAM: Jul 06 2023 1:40PM [facility] - US PELVIS BLADDER -NB / PROCEDURE REASON: Hydronephrosis, unspecified hydronephrosis type * * * * Physician Interpretation * * * * EXAMINATION: RENAL ULTRASOUND CLINICAL HISTORY: Hydronephrosis. TECHNIQUE: Sonography of the kidneys and urinary bladder was performed. Images were obtained and stored in a permanent archive. MQ: UR_1 COMPARISON: Renal ultrasound from 06/01/[address] the abdomen pelvis with and without contrast from 04/28/2023 RESULT: Right Kidney: -Renal length: 13.4 cm -Parenchyma: Normal parenchymal echogenicity. Mild cortical atrophy. -Collecting system: Mild right hydronephrosis and hydroureter. -Calculus: No echogenic, shadowing calculus. -Lesion: 4.0 x 4.8 x 4.7 cm simple appearing cyst along the upper pole.. Left Kidney: -Renal length: 12.8 cm -Parenchyma: Normal parenchymal echogenicity. Mild cortical atrophy -Collecting system: Trace left hydronephrosis. -Calculus: No echogenic, shadowing calculus. -Lesion: 1.3 x 1.2 x 1.3 cm simple appearing cyst on the upper pole. Bladder: Marked thickening of the wall of the urinary bladder with bladder wall trabeculation. Prevoid bladder volume measures 259 mL and the post void bladder volume measures 138 mL. IMPRESSION: 1. Marked thickening of the wall of the urinary bladder with bladder wall trabeculation. This was also present on a prior outside CT scan from 04/28/2023. This could be secondary to bladder outlet obstruction, neurogenic bladder, or urothelial malignancy. This is not adequately evaluated on ultrasound can be further evaluated with cystoscopy if not already performed. Prevoid bladder volume measures 259 mL and the post void bladder volume measures 138 mL. 2. Mild right hydronephrosis and hydroureter and trace left hydronephrosis. This appears improved when compared to the prior exams. Frothing Machine Operator: BEBETO Transcribe Date/Time: Jul 06 2023 9:38P Dictated by : MARIBEL ROSADO MD This examination was interpreted and the report reviewed and electronically signed by: MARIBEL ROSADO MD on Jul 06 2023 9:48PM EST [id number] Health [facility] Hospital Urinary bladderon 07-06-2023* * *Final Report* * * DATE OF EXAM: Jul 06 2023 1:40PM [place] [id number] - PELVIS BLADDER -NB / PROCEDURE REASON: Hydronephrosis, unspecified hydronephrosis type * * * * Physician Interpretation * * * * EXAMINATION: RENAL ULTRASOUND CLINICAL HISTORY: Hydronephrosis. TECHNIQUE: Sonography of the kidneys and urinary bladder was performed. Images were obtained and stored in a permanent archive. MQ: UR_1 COMPARISON: Renal ultrasound from 06/01/[address] the abdomen pelvis with and without contrast from 04/28/2023 RESULT: Right Kidney: -Renal length: 13.4 cm -Parenchyma: Normal parenchymal echogenicity. Mild cortical atrophy. -Collecting system: Mild right hydronephrosis and hydroureter. -Calculus: No echogenic, shadowing calculus. -Lesion: 4.0 x 4.8 x 4.7 cm simple appearing cyst along the upper pole.. Left Kidney: -Renal length: 12.8 cm -Parenchyma: Normal parenchymal echogenicity. Mild cortical atrophy -Collecting system: Trace left hydronephrosis. -Calculus: No echogenic, shadowing calculus. -Lesion: 1.3 x 1.2 x 1.3 cm simple appearing cyst on the upper pole. Bladder: Marked thickening of the wall of the urinary bladder with bladder wall trabeculation. Prevoid bladder volume measures 259 mL and the post void bladder volume measures 138 mL. DIVISION OF RADIOLOGYProvider, [facility] [place] - 07/06/2023 * * *Final Report* * * DATE OF EXAM: Jul 06 2023 1:40PM [facility] 1042 - US PELVIS BLADDER -NB / PROCEDURE REASON: Hydronephrosis, unspecified hydronephrosis type * * * * Physician Interpretation * * * * EXAMINATION: RENAL ULTRASOUND CLINICAL HISTORY: Hydronephrosis. TECHNIQUE: Sonography of the kidneys and urinary bladder was performed. Images were obtained and stored in a permanent archive. MQ: UR_1 COMPARISON: Renal ultrasound from 06/01/[address] the abdomen pelvis with and without contrast from 04/28/2023 RESULT: Right Kidney: -Renal length: 13.4 cm -Parenchyma: Normal parenchymal echogenicity. Mild cortical atrophy. -Collecting system: Mild right hydronephrosis and hydroureter. -Calculus: No echogenic, shadowing calculus. -Lesion: 4.0 x 4.8 x 4.7 cm simple appearing cyst along the upper pole.. Left Kidney: -Renal length: 12.8 cm -Parenchyma: Normal parenchymal echogenicity. Mild cortical atrophy -Collecting system: Trace left hydronephrosis. -Calculus: No echogenic, shadowing calculus. -Lesion: 1.3 x 1.2 x 1.3 cm simple appearing cyst on the upper pole. Bladder: Marked thickening of the wall of the urinary bladder with bladder wall trabeculation. Prevoid bladder volume measures 259 mL and the post void bladder volume measures 138 mL. IMPRESSION IMPRESSION: 1. Marked thickening of the wall of the urinary bladder with bladder wall trabeculation. This was also present on a prior outside CT scan from 04/28/2023. This could be secondary to bladder outlet obstruction, neurogenic bladder, or urothelial malignancy. This is not adequately evaluated on ultrasound can be further evaluated with cystoscopy if not already performed. Prevoid bladder volume measures 259 mL and the post void bladder volume measures 138 mL. 2. Mild right hydronephrosis and hydroureter and trace left hydronephrosis. This appears improved when compared to the prior exams. Frothing Machine Operator: [facility] HOSPITALChang Transcribe Date/Time: Jul 06 2023 9:38P Dictated by : MARIBEL ROSADO MD This examination was interpreted and the report reviewed and electronically signed by: MARIBEL ROSADO MD on Jul 06 2023 9:48PM [facility] [id number] Visit (UROLLN) RANJEET FLETCHERA Luz ([id number]) 1970 F Date Time Provider Department 06/04/23 1:00 PM HEATHER FERNANDES During your visit today, we recorded the following information about you: Pulse Blood pressure Weight 75/minute 149/102 158.8 kg Heather Fernandes, [employer].ACETYLENE TORCH BURNER 06/04/2023 3:10 PM Signed Carrie Luz [place] [id number] [facility] [address] HISTORY OF PRESENT ILLNESS: Seen 04/19/[address] Campa here today for bladder mass and bilateral [...] can be further assessed with CT Urogram. Coming for bladder mass and B/L moderate-marded hydronephrosis (new finding today 06/04/23) Pt stated that was urinating prior to catheter placement, pt stated that have desire to urinate. Jansen catheter removed with ease Urine in bag was yellow slightly cloudy Pt stated that have HST of constipation UA 04/09/23=+2 hemoglobin, +2 protein, +nitrites, +3 leuk esterase, >20 wbc Culture 04/19/23=contaminated Cytology 04/19/23=neg BUN/crea 03/30/23=23/1.01 GFR=67 US of kidney 06/01/23= IMPRESSION: Limited exam due to poor acoustic penetration. Mild bilateral hydronephrosis is suggested. Decompressed urinary bladder surrounding a Jansen catheter. cysto 05/04/23= DIAGNOSIS: Acute cystitis with pyuria, debris and multiple small diverticuli CT abdomen pelvis wo/w 04/28/23= Chronic marded hydronephrosis and hydroureter B/L secondary to irregular urinary bladder wall thickening most suggestive of neoplasm No appreciable lymphadenopathy or metastatic disease. L5-S1 marked degenerative disc disease Location: bladder mass, hydro Pain Character: none Severity Scale: see lab, see X-rays Duration: few weeks PAST MEDICAL HISTORY Diagnosis Date A-fib (HCC) Foot drop, left foot Nerve damage Sleep apnea PAST SURGICAL HISTORY Procedure Laterality Date BACK SURGERY HX GASTRIC BYPASS HX No family history on file. Social History [...] mouth. sennosides (SENOKOT ORAL) Take by mouth. ciprofloxacin HCl (CIPRO) 500 mg tablet Take 1 tablet by mouth two times a day for 3 days. No current facility-administered medications for this visit. [...] no bleeding from the gums. PHYSICAL EXAM: VITALS: BP 149/102 Pulse 75 Wt (!) 158.8 kg (350 lb) LMP (LMP Unknown) BMI 44.94 kg/m? GENERAL: Alert, oriented and in no distress. HEAD (more content not included)...NormalOhiohealth Berger HospitalUS KIDNEY/BLADDERon [id number] KIDNEY/BLADDER* * *Final Report* * * DATE OF EXAM: Jun 01 2023 11:46AM [facility] 1055 - KIDNEY/BLADDER / PROCEDURE REASON: Hydronephrosis, unspecified hydronephrosis type * * * * Physician Interpretation * * * * EXAMINATION: RENAL ULTRASOUND CLINICAL HISTORY: Hydronephrosis TECHNIQUE: Sonography of the kidneys and urinary bladder was performed. Images were obtained and stored in a permanent archive. MQ: UR_1 COMPARISON: CT abdomen/pelvis 04/28/2023; renal ultrasound 04/15/2023 RESULT: Mildly limited exam due to poor acoustic penetration. Right Kidney: -Renal length: 13.8 cm -Parenchyma: Normal parenchymal echogenicity. Normal parenchymal thickness. -Collecting system: Mild proximal ureterectasis. -Calculus: No echogenic, shadowing calculus. -Lesion: A cyst within the upper pole measures 5 cm. Left Kidney: -Renal length: 13 cm -Parenchyma: Normal parenchymal echogenicity. Normal parenchymal thickness. -Collecting system: Mild hydronephrosis -Calculus: No echogenic, shadowing calculus. -Lesion: None. Bladder: Decompressed around a Jansen catheter balloon. IMPRESSION: Limited exam due to poor acoustic penetration. Mild bilateral hydronephrosis is suggested. Decompressed urinary bladder surrounding a Jansen catheter. Frothing Machine Operator: [facility] Transcribe Date/Time: Jun 01 2023 4:47P Dictated by : LUIS DANIEL SANZ MD This examination was interpreted and the report reviewed and electronically signed by: LUIS DANIEL SANZ MD on Jun 01 2023 4:50PM EST [id number]_IDCSIACNNormalOhiohealth Berger HospitalUS Kidney - bilateral and Urinary bladderon [id number]: Limited exam due to poor acoustic penetration. Mild bilateral hydronephrosis is suggested. Decompressed urinary bladder surrounding a Jansen catheter. Frothing Machine Operator: [facility] Transcribe Date/Time: Jun 01 2023 4:47P Dictated by : LUIS DANIEL SANZ MD This examination was interpreted and the report reviewed and electronically signed by: LUIS DANIEL SANZ MD on Jun 01 2023 4:50PM EST DIVISION OF RADIOLOGY* * *Final Report* * * DATE OF EXAM: Jun 01 2023 11:46AM [facility] 1055 - US KIDNEY/BLADDER / PROCEDURE REASON: Hydronephrosis, unspecified hydronephrosis type * * * * Physician Interpretation * * * * EXAMINATION: RENAL ULTRASOUND CLINICAL HISTORY: Hydronephrosis TECHNIQUE: Sonography of the kidneys and urinary bladder was performed. Images were obtained and stored in a permanent archive. MQ: UR_1 COMPARISON: CT abdomen/pelvis 04/28/2023; renal ultrasound 04/15/2023 RESULT: Mildly limited exam due to poor acoustic penetration. Right Kidney: -Renal length: 13.8 cm -Parenchyma: Normal parenchymal echogenicity. Normal parenchymal thickness. -Collecting system: Mild proximal ureterectasis. -Calculus: No echogenic, shadowing calculus. -Lesion: A cyst within the upper pole measures 5 cm. Left Kidney: -Renal length: 13 cm -Parenchyma: Normal parenchymal echogenicity. Normal parenchymal thickness. -Collecting system: Mild hydronephrosis -Calculus: No echogenic, shadowing calculus. -Lesion: None. Bladder: Decompressed around a Jansen catheter balloon. DIVISION OF RADIOLOGYProvider, [facility] [place] - 06/01/2023 * * *Final Report* * * DATE OF EXAM: Jun 01 2023 11:46AM [facility] 1055 - US KIDNEY/BLADDER / PROCEDURE REASON: Hydronephrosis, unspecified hydronephrosis type * * * * Physician Interpretation * * * * EXAMINATION: RENAL ULTRASOUND CLINICAL HISTORY: Hydronephrosis TECHNIQUE: Sonography of the kidneys and urinary bladder was performed. Images were obtained and stored in a permanent archive. MQ: UR_1 COMPARISON: CT abdomen/pelvis 04/28/2023; renal ultrasound 04/15/2023 RESULT: Mildly limited exam due to poor acoustic penetration. Right Kidney: -Renal length: 13.8 cm -Parenchyma: Normal parenchymal echogenicity. Normal parenchymal thickness. -Collecting system: Mild proximal ureterectasis. -Calculus: No echogenic, shadowing calculus. -Lesion: A cyst within the upper pole measures 5 cm. Left Kidney: -Renal length: 13 cm -Parenchyma: Normal parenchymal echogenicity. Normal parenchymal thickness. -Collecting system: Mild hydronephrosis -Calculus: No echogenic, shadowing calculus. -Lesion: None. Bladder: Decompressed around a Jansen catheter balloon. IMPRESSION IMPRESSION: Limited exam due to poor acoustic penetration. Mild bilateral hydronephrosis is suggested. Decompressed urinary bladder surrounding a Jansen catheter. Frothing Machine Operator: [facility] Transcribe Date/Time: Jun 01 2023 4:47P Dictated by : LUIS DANIEL SANZ MD This examination was interpreted and the report reviewed and electronically signed by: LUIS DANIEL SANZ MD on Jun 01 2023 4:50PM EST [facility] HospitalRadiology Study observation (narrative)[facility] Kidney - bilateral and Urinary bladderOrdered By: Ccf Provider on [id number] ClinicDocumentationon [id number] Carrie Fletcher 1970 F Date Provider Department Center 05/18/2023 Rivas-ILSA PERALTA MP OT Medical Pavi No family history on fileNormalUniversity of Citizens Medical CenterCNPNon [id number] (UROLLN) CARRIE FLETCHER ([id number]) 1970 F Date Time Provider Department 05/11/23 APURVA CAMPA During your visit today, we recorded the following information about you: Apurva Campa MD 05/11/2023 1:44 PM Signed PLEASE CALL PATIENT AND SEE HOW IS SHE IS DOING WITH THE CATHETER IN INFORM HER NEEDS TO KEEP THE CATHETER TILL SHE SEE HEATHER 06-04-23 She need to schedule the renal US needed about a week prior her office visit with MD Dany Dominguez Amanda 05/13/2023 1:17 PM Signed Pt would like to know why she needs to complete another US when she just had one in April. Please review and advise. Apurva Fitzgerald MD 05/16/2023 8:24 AM Signed She needs to do the renal US a week prior seeing Heather and per my prior note. I need to know if her dilated kidneys are resolved with the catheter or not. She needs to repeat the US while on the catheter and not after seeing Heather and catheter is removed I will decide what is the next step after doing the US Apurva Campa MD Allergies As of Date: 05/11/2023 Noted Allergy Reaction AMOXICILLIN-POT CLAVULANATE 06/29/2022 6 - Diarrhea OXYCODONE 06/29/2022 16 - Unknown ADHESIVE TAPE-SILICONES 11/08/2018 2 - Rash Date Reviewed: 05/04/2023 Reviewed by: Shelbie Betancourt, RN - Fully Assessed Prescriptions as of 05/17/2023 - gabapentin (NEURONTIN) 600 mg tablet Take [...] mg by mouth three times daily. - multivit-minerals/folic acid (ONE-A-DAY WOMEN VITACRAVES ORAL) Take by mouth. - sennosides (SENOKOT ORAL) Take by mouth. Problem List As Of Date 05/11/2023 Noted Resolved Mild protein-calorie malnutrition (HCC) [E44.1] 04/19/2023 Morbid (severe) obesity due to excess calories *04/19/2023 Obesity, Class III, BMI >= 40 [E66.01] 05/04/2023 Bladder tumor [D49.4] 05/04/2023 Encounter Status:Closed by APURVA CAMPA on 05/11/23[facility] HospitalAna Luisa [id number] (JEANNE) CARRIE FLETCHER ([id number]) 1970 F Date Time Provider Department 05/09/23 APURVA CAMPA During your visit today, we recorded the following information about you: Apurva Campa MD 05/09/2023 10:34 AM Signed Patient has bilateral hydronephrosis and has Jansen catheter Seeing Heather in 1 month after her cysto Schedule renal US prior her office visit to assess for hydronephrosis She also needs to schedule her CTU ordered on 04-19-23 MD Shreyas Griffith Kamille, EVE 05/10/2023 11:[address] imaging available in [facility]. Called patient and left detailed message regarding message below for scheduling US prior to office visit with heather. Will fax order. Notified patient we received images through [facility] but not radiology impression, if they caqn fax to us. Our fax number was provided. Luiza Pritchett R.N. Allergies As of Date: 05/09/2023 Noted Allergy Reaction AMOXICILLIN-POT CLAVULANATE 06/29/2022 6 - Diarrhea OXYCODONE 06/29/2022 16 - Unknown ADHESIVE TAPE-SILICONES 11/08/2018 2 - Rash Date Reviewed: 05/04/2023 Reviewed by: Shelbie Betancourt RN - Fully Assessed Primary Visit Diagnosis:Hydronephrosis, unspecified hydronephrosis type [N13.30] Order(s): KIDNEY/BLADDER [[id number]] Order #: [id number] FUTURE Prescriptions as of 05/10/2023 - ciprofloxacin HCl (CIPRO) 500 mg tablet [...] mg by mouth three times daily. - multivit-minerals/folic acid (ONE-A-DAY WOMEN VITACRAVES ORAL) Take by mouth. - sennosides (SENOKOT ORAL) Take by mouth. 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 Schedule follow-up office visit with nurse practitioner in 1 month. Plan to remove catheter at the office visit at the office visit. Kinjal GRIFFITH Angelique 05/04/2023 4:03 PM Signed Called and spoke with patient. Patient is scheduled ov in 1 month with Heather Fernandes CNP on 06/04/23 Allergies As of Date: 05/04/2023 Noted Allergy Reaction AMOXICILLIN-POT CLAVULANATE 06/29/2022 6 - Diarrhea OXYCODONE 06/29/2022 16 - Unknown ADHESIVE TAPE-SILICONES 11/08/2018 2 - Rash Date Reviewed: 05/04/2023 Reviewed by: Shelbie Betancourt RN - Fully Assessed Order(s):Order #: [id number] Prescriptions as of 05/04/2023 - ciprofloxacin HCl [...] mg by mouth three times daily. - multivit-minerals/folic acid (ONE-A-DAY WOMEN VITACRAVES ORAL) Take [...] days. Encounter Status:Closed by APURVA CAMPA on 05/04/23[facility], MD, Cancer CenterCNPNTelephone (UROLLN) CHANCECARRIE Escobar ([id number]) 1970 F Date Time Provider Department 05/04/23 APURVA CAMPA During your visit today, we recorded the following information about you: Apurva Campa MD 05/04/2023 2:32 PM Signed Please get me the report of CT scan of the patient that was done at [facility] APURVA CAMPA M.D. Barbara Marie MA 05/05/2023 10:38 AM Signed I left a detailed voicemail and Semetric message in regards to message below. If patient were to call back, please read over messages to patient. Thank you Barbara Marie MA 05/05/2023 1:50 PM Signed Received fax of results. Placed in Dr. Campa's box for further review. Hoda Costello 05/05/2023 1:52 PM Signed Patient returning call. She states she spoke with [facility] and they indicate they will upload the imaging today. It may take 24-48 hours to appear in her chart. Care everywhere utilized to pull report and imaging date. Please call to advise when everything has been received. Hoda Costello [facility] (Patient Operations Support Team) Please note: Please do not re-route encounters back to this agent, please send to appropriate office pool. Agent works in operations center and cannot complete patient specific tasks. Barbara Marie MA 05/05/2023 2:04 PM Signed Tried to call patient, LMOVM to return call or send Semetric message back. On Voicemail I explained that [...] by: Shelbie Betancourt RN - Fully Assessed Reason for Visit: Results [...] mg by mouth three times daily. - multivit-minerals/folic acid (ONE-A-DAY WOMEN VITACRAVES ORAL) Take by mouth. - sennosides (SENOKOT ORAL) Take by mouth. Problem List As Of Date 05/04/2023 Noted Resolved Mild protein-calorie malnutrition (HCC) [E44.1] 04/19/2023 Morbid (severe) obesity due to excess calories *04/19/2023 Obesity, Class III, BMI >= 40 [E66.01] 05/04/2023 Bladder tumor [D49.4] 05/04/2023 Encounter Status:Closed by APURVA CAMPA on 05/04/23[facility] HospitalTORY PHYSICALon [id number] PHYSICALHNO ID: [id number] Author: BRYCE MON APRN.ACETYLENE TORCH BURNER Service: ? Author Type: Nurse Practitioner Type: [...] Bladder tumor [D49.4] Medication and Non-Pharmacologic VTE Prophylaxis/Anticoagulants VTE Prophylaxis: NA SIGNATURE: Bryce Mon APRN.CNP PATIENT NAME: Carrie Fletcher DATE: May 04, 2023 TIME: 11:43 AM PAGER:[facility] MD, Cancer CenterHISTORY PHYSICALHNO ID: [id number] Author: APURVA CAMPA MD Service: Urology Author [...] Fletcher DATE: May 04, 2023 TIME: 11:40 AMNCleveland Clinic Marymount HospitalOPERATIVE NOon [id number] NOHNO ID: [id number] Author: APURVA CAMPA MD Service: Urology Author Type: Physician Type: Operative Report Filed: 05/04/2023 12:45 Note Text: PROCEDURE: CYSTOSCOPY Preoperative diagnosis: Bladder tumor Postoperative diagnosis: Acute cystitis with debris, multiple diverticulum Surgeon: Apurva Campa M.D. ANESTHESIA: 2% LOCAL XYLOCAIN JELLY. PREOPERATIVE/PROCEDURAL VERIFICATION: History and Physical reviewed and unchanged. Risks, benefits, alternatives and personnel discussed with patient who consents to proceed. Pt ID verified with patient::YES Procedure verified with patient:: Yes Procedure confirmed with support worker:Yes Audible time out was performed: Yes PATIENT [...] TRIGONE: Yes TUMOR: no Jansen catheter 18 [place] Islander was inserted into the bladder and attached [...] Close/Procedure End Time: 12:31 PM May 04, 2023NoBlanchard Valley [facility] System Blanchard Valley HospitalCNPNon [id number] (UROLLN) CARRIE FLETCHER ([id number]) 1970 F Date Time Provider Department 04/20/23 APURVA CAMPA During your visit today, we recorded the following information about you: Apurva Campa MD 04/20/2023 12:28 AM Signed Please schedule patient for local flexible cystoscopy at [facility] on Wednesday05-04-23 MD Angela Griffith Heather A [...] tumor [D49.4] Order(s):SURGICAL REQUEST - ELECTIVE (09/2019) [[id number]] Order #: [id number]: 1 Prescriptions as of 04/20/2023 - iv [...] mg by mouth three times daily. - multivit-minerals/folic acid (ONE-A-DAY WOMEN VITACRAVES ORAL) Take by mouth. - sennosides (SENOKOT ORAL) Take by mouth. Problem List As Of Date 04/20/2023 Noted Resolved Mild protein-calorie malnutrition (HCC) [E44.1] 04/19/2023 Morbid (severe) obesity due to excess calories *04/19/2023 Encounter Status:Closed by MACY SIMON on 04/20/23NoBlanchard Valley Health System Blanchard Valley HospitalBacteria Ur Culton 07-35-7460Ahqrquhd identified Cx Nom (U)ORGANISM ID: 1 >=100,000 CFU/ml Mixed microbiota No further workup. Mixed microbiota can be due to???urine???contamination with skin bacteria at time of collection or presence of a long-term urinary catheter. If a new culture is needed, please consider re-education of the patient on proper midstream collection technique or straight catheterization for???urine???collection.NormalOhiohealth Berger HospitalComment on above: Performed By: #### 630-4 ####[facility] LABCLIA [id number] [address] STATES OF [facility] - CANTONCNOVon 90-47-3893XAQYMacehd Visit (UROLLN) CARRIE FLETCHER ([id number]) 1970 F Date Time Provider Department 04/19/23 2:40 PM APURVA CAMPA During your visit today, we recorded the following information about you: Pulse Blood pressure Weight 80/minute 131/87 158.8 kg Apurva Campa MD 04/19/2023 2:43 PM Addendum UA/culture/cytology at [facility] lab Schedule CTU Surgical schedulers will call for cystoscopy under local 05/04/23 office visit post op -05-01 in post op slot 9:20 AM Negrita Da Silva 04/19/2023 2:41 PM Signed Carrie Fletcher [id number] [facility] [place] [address] is a 52 year old female and is here today for hydronephrosis, bladder mass at the request of Janina Hadley [address] [facility] [address] My final recommendation will be communicated back [...] On Eliquis PLAN: (Management Options): UA/culture/cytology at [facility] lab CTU, GFR 03/31/23: 66 Cystoscopy under local in the operating room 05/04/23. Medical Decision Making: Data: Unique test (more content not included)...NormalOhiohealth Berger Hospital CYTOLOGY NON-GYNon [id number] REPORTNormalCUK Healthcare on above:Order Comment: Specimen Type: FLUID SPECIMENOrdering Facility: [facility] Address:[address] [place], [place] [address]Result Comment: Medical Cytology Report Case: [id number] Authorizing Provider: Apurva Campa MD Collected: 04/19/2023 02:58 PM Ordering Location: Urology Received: 04/19/2023 03:19 PM Pathologist: Ruy Díaz MD Specimen: URINE VOIDEDPerformed By: #### CYTONON ####[facility] LABCLIA [id number] [address] STATES OF [facility] - CANTONCLINICAL HISTORYbladder mass, hydronephrosisNormalCUK Healthcare on above:Order Comment: Specimen Type: FLUID SPECIMENOrdering Facility: [facility] Address:[address] [place], [place] [address]Performed By: #### CYTONON ####[facility] LABCLIA [id number] [address] AMERICAFINOK DIAGNOSISNormalCUK Healthcare on above:Order Comment: Specimen Type: FLUID SPECIMENOrdering Facility: [facility] Address:[address] [place], [place] [address]Result Comment: A - URINE VOIDED Negative for high-grade urothelial carcinoma. Acute inflammation Performed By: #### CYTONON ####[facility] LABCLIA [id number] [address] PERFORMING LAB NormalLake County Memorial Hospital - West on above:Order Comment: Specimen Type: FLUID SPECIMENOrdering Facility: [facility] Address:[address] [place], [place] [address]Result Comment: Technical component, image consultant screening performed at [facility], [address] [place] [address] CLIA# [id number] Diagnostic interpretation performed at [facility], [address] [place] [address] CLIA# [id number] Die Cutter Apprentice: Sha Boswell M.D.Performed By: #### CYTONON ####[facility] LABCLIA [id number] [address] OF AMERICAGROSS DESCRIPTIONA. URINE VOIDED NormalLake County Memorial Hospital - West on above:Order Comment: Specimen Type: FLUID SPECIMENOrdering Facility: [facility] Address:[address] [place], [place] [address]Result Comment: 10 cc cloudy light yellow fluid . ThinPrep prepared.Performed By: #### CYTONON ####[facility] LABCLIA [id number] [place] [address] [place] AMERICAURINALYSIS, REFLEX MICROSCOPICon 06-08-2959LGASGPUE UL>9821HighNegative [facility] on above:Order Comment: Specimen Type: URINE SPECIMENOrdering Facility: [facility] Address:[address] [place], [place] [address]Performed By: #### [id number] ####[facility] LABCLIA [id number] [place] [address] [place] AMERICABilirubin Ql (U)NegativeNormalNegativeLake County Memorial Hospital [facility] on above:Order Comment: Specimen Type: URINE SPECIMENOrdering Facility: [facility] Address:[address] [place] [address] Performed By: #### [id number] ####[facility] LABCLIA [id number] [place] [address] [place] Clarity (Unsp spec)TurbidAbnormalClearCUK Healthcare on above:Order Comment: Specimen Type: URINE SPECIMENOrdering Facility: [facility] Address:[address] [place], [place] [address]Performed By: #### [id number] ####[facility] LABCLIA [id number] [place] [address] [place] AMERICAColor (U)YellowNormal YellowLake County Memorial Hospital - West on above:Order Comment: Specimen Type: URINE SPECIMENOrdering Facility: [facility] Address:[address] [place], [place] [address]Performed By: #### [id number] ####[facility] LABIA [id number] [place] [address] [place] AMERICAEpithelial cells LM.HPF (Urine sed) [#/Area]ModerateNormal [facility] on above:Order Comment: Specimen Type: URINE SPECIMENOrdering Facility: [facility] Address:[address] [place], [place] [address]Performed By: #### [id number] ####[facility] LABCLIA [id number] [place] [address] [place] AMERICAGlucose Test strip (U) [Mass/Vol]NegativeNormalNegativeLake County Memorial Hospital [facility] on above:Order Comment: Specimen Type: URINE SPECIMENOrdering Facility: [facility] Address:[address] [place], [place] [address]Performed By: #### [id number] ####[facility] LABCLIA [id number] [place] [address] [place] Hemoglobin Ql (U)2+AbnormalNegativeLake County Memorial Hospital - West on above: Order Comment: Specimen Type: URINE SPECIMENOrdering Facility: [facility] Address:[address] [place], [place] [address]Performed By: #### [id number] ####[facility] LABCLIA [id number] [place] [address] [place] AMERICAHyaline casts (Urine sed) [#/Area]/[LPF]Abnormal0 /LPFCUK Healthcare on above: Order Comment: Specimen Type: URINE SPECIMENOrdering Facility: [facility] Address:[address] [place], [place] [address]Performed By: #### [id number] ####[facility] LABCLIA [id number] [place] [address] [place] AMERICAKetones Ql (U)Negative NormalNegativeLake County Memorial Hospital [facility] West on above:Order Comment: Specimen Type: URINE SPECIMENOrdering Facility: [facility] Address:[address] [place], [place] [address]Performed By: #### [id number] ####[facility] LABCLIA [id number] [place] [address] [place] AMERICALeukocyte esterase Test strip Ql (U)3+AbnormalNegative [facility] on above:Order Comment: Specimen Type: URINE SPECIMENOrdering Facility: [facility] Address:[address] [place], [place] [address]Performed By: #### [id number] ####[facility] LABCLIA [id number] [place] [address] [place] AMERICANitrite Ql (U)PositiveAbnormalNegativeLake County Memorial Hospital [facility] on above:Order Comment: Specimen Type: URINE SPECIMENOrdering Facility: [facility] Address:[address] [place] [address] Performed By: #### [id number] ####[facility] LABCLIA [id number] [place] [address] [place] pH (U)7.0 [pH]Normal<8.5CU[facility] on above:Order Comment: Specimen Type: URINE SPECIMENOrdering Facility: [facility] Address:[address] [place], [place] [address]Performed By: #### [id number] ####[facility] LABIA [id number] [place] [address] [place] [facility] MEDICAL CENTERProtein (U) [Mass/Vol] 2+AbnormalNegativeLake County Memorial Hospital [facility] on above:Order Comment: Specimen Type: URINE SPECIMENOrdering Facility: [facility] Address:[address] [place], [place] [address]Performed By: #### [id number] ####[facility] LABIA [id number] [place] [address] [place] [facility]OSP[facility] - CANTONRB LM.HPF (Urine sed) [#/Area]0- 2 /HPFNormal0-2 /HPFLake County Memorial Hospital [facility] on above:Order Comment: Specimen Type: URINE SPECIMENOrdering Facility: [facility] Address:[address] [place], [place] [address]Performed By: #### [id number] ####[facility] LABIA [id number] [place] [address] [place] AMERICASpecific gravity (U) [Rel density]1.581Aktcob2.005-1.030[facility] on above:Order Comment: Specimen Type: URINE SPECIMENOrdering Facility: [facility] Address:[address] [place], [place] [address]Performed By: #### [id number] ####[facility] LABIA [id number] [place] [address] [place] [facility] - CANTONUrobilinogen Ql (U)0.2 EU/dLNormal0.2-1.0 EU/dLLake County Memorial Hospital - West on above:Order Comment: Specimen Type: URINE SPECIMENOrdering Facility: [facility] Address:[address] [place], [place] [address]Performed By: #### [id number] ####[facility] [id number] [address] STATES OF [facility]TY HOSPITAL - CANTONWBC LM.HPF (Urine sed) [#/Area]/[HPF]Abnormal0-5 /HPFLake County Memorial Hospital [facility] on above:Order Comment: Specimen Type: URINE SPECIMENOrdering Facility: [facility] Address:[address] [place], [place] [address]Performed By: #### [id number] ####[facility] [id number] [place] [address] [place] AMERICAUS KIDNEY/BLADDERon 72-85-9373IP KIDNEY/BLADDER* * *Final Report* * * DATE OF EXAM: Apr 15 2023 1:52PM [address] KIDNEY/BLADDER / PROCEDURE REASON: multiple diagnoses * [...] communication. ACTIONABLE RESULT: FOLLOW-UP Acuity: Actionable Findings: Kidneys/Ureters/Bladder Routing Code: GU_1 Recommendation: Unlisted Recommendation (see report) Time Frame: At the discretion of the clinical team. COMMUNICATION: Results will be communicated with the ordering provider via [employer] staff message or phone message by [employer] within 2 business days of report finalization. --END OF FINDING-- Acuity: Actionable Findings: Kidneys/Ureters/Bladder Routing Code: GU_1 Recommendation: CT UROGRAM WO/W IVCON TimeFrame: at the discretion of the clinical team. --END OF FINDING-- Frothing Machine Operator: [id number] Transcribe Date/Time: Apr 15 2023 4:17P Dictated by : LUIS DANIEL SANZ MD This examination was interpreted and the report reviewed and electronically signed by: LUIS DANIEL SANZ MD on Apr 15 2023 4:28PM EST [id number] ACTIONABLEInvalid Interpretation CodeOhiohealth Berger HospitalUS Kidney - bilateral and Urinary bladderon 25-02-2440Xgwdggzeh ResultACTIONABLEAbnormal St. [facility]S HospitalComprehensive metabolic 2000 panelon 52-09-5012Sfdqqep [Mass/Vol]3.6 g/dLLow3.9-4.9[facility] on above:Order Comment: Specimen Type: BLOOD SPECIMENOrdering Facility: [facility] Address:[address] [place], [place] [address]Performed By: #### [id number]- 8 ####[facility] LABCLIA [id number] [facility] [id number], [place] [address] [place] AMERICAALP [Catalytic activity/Vol]53 U/FNbsbfn67-556XcmdphhzoLake County [facility] Hospital [facility] on above:Order Comment: Specimen Type: BLOOD SPECIMENOrdering Facility: [facility] Address:[address] [place], [place] [address]Performed By: #### 06302-7 ####[facility] LABCLIA [id number] [address] [address] [place] AMERICAALT [Catalytic activity/Vol]11 U/LNormal7-38[facility] on above:Order Comment: Specimen Type: BLOOD SPECIMENOrdering Facility: [facility] Address:[address] [place], [place] [address]Performed By: #### 97943-1 ####[facility] LABCLIA [id number] [place] [address] [place] AMERICAAnion gap [Moles/Vol]12 mmol/LNormal9-18[facility] on above:Order Comment: Specimen Type: BLOOD SPECIMENOrdering Facility: [facility] Address:[address] [place], [place] [address]Performed By: #### 06956-1 ####[facility] LABCLIA [id number] [place] [id number] [place] AST [Catalytic activity/Vol]9 U/LHkn95-24SqqjobxifLake County Memorial Hospital - [facility] on above:Order Comment: Specimen Type: BLOOD SPECIMENOrdering Facility: [facility] Address:[address] [place], [place] [address]Performed By: #### 31599-1 ####[facility] LABCLIA [id number] [address] [address] [place] AMERICABilirubin [Mass/Vol] 0.2 mg/dLNormal0.2-1.3[facility] on above:Order Comment: Specimen Type: BLOOD SPECIMENOrdering Facility: [facility] Address:[address] [place], [place] [address]Performed By: #### 95704-3 ####[facility] LABCLIA [id number] [place] [address] [place] AMERICACalcium [Mass/Vol]10.0 mg/dL Normal8.5-10.2[facility] on above:Order Comment: Specimen Type: BLOOD SPECIMENOrdering Facility: [facility] Address:[address] [place], [place] [address]Performed By: #### 78470-2 ####[facility] LABCLIA [id number] [place] [address] [place] AMERICAChloride [Moles/Vol]106 mmol/ERdml28-483MpvrnkhmtLake County Memorial Hospital [facility] on above:Order Comment: Specimen Type: BLOOD SPECIMENOrdering Facility: [facility] Address:[address] [place], [place] [address]Performed By: #### 75737-9 ####[facility] LABCLIA [id number] [place] [address] [place] CO2 [Moles/Vol]26 mmol/JQtngff13-68DvshsjdlkLake County Memorial Hospital [facility] on above: Order Comment: Specimen Type: BLOOD SPECIMENOrdering Facility: [facility] Address:[address] [place], [place] [address]Performed By: #### 76643- 8 ####[facility] LABCLIA [id number] [place] [address] [place] AMERICACreatinine [Mass/Vol]1.01 mg/dL High0.58-0.96[facility] on above:Order Comment: Specimen Type: BLOOD SPECIMENOrdering Facility: [facility] Address:[address] [place], [place] [address]Performed By: #### 85311-3 ####[facility] LABCLIA [id number] [place] [address] [place] AMERICACreatinine and Glomerular filtration rate.predicted panel (S/P/Bld)67 mL/min/1.73m???Normal>=60[facility] on above:Order Comment: Specimen Type: BLOOD SPECIMENOrdering Facility: [facility] Address:[address] [place] [id number] Comment: Estimated Glomerular Filtration Rate (eGFR) is calculated using the 2020 CKD-EPI creatinine equation. This equation utilizes serum creatinine, sex, and age as parameters. The creatinine assay has traceable calibration to isotope dilution- mass spectrometry. Refer to KDIGO guidelines for clinical interpretation. In patients with unstable renal function, e.g. those with acute kidney injury, the eGFR may not accurately reflect actual GFR.Performed By: #### 71162-2 ####[facility] LABCLIA [id number] [place] [address] [place] AMERICAGlucose [Mass/Vol]84 mg/dLNormal 74-99[facility] on above:Order Comment: Specimen Type: BLOOD SPECIMENOrdering Facility: [facility] Address:[address] [place], [place] [address]Result Comment: The [place] Diabetes Association (ADA) provides guidance for cutoff [...] Standards of Medical Care in Diabetes 2016, [place] Diabetes Association. Diabetes Care. 2016.39(Suppl 1).Performed By: #### 75064-6 ####[facility] LABCLIA [id number] [place] [id number] [place] AMERICAPotassium [Moles/Vol]4.7 mmol/L Normal3.7-5.1[facility] on above:Order Comment: Specimen Type: BLOOD SPECIMENOrdering Facility: [facility] Address:[address] [place], [place] [address]Performed By: #### 36601-6 ####[facility] LABCLIA [id number] [place] [address] [place] AMERICAProtein [Mass/Vol]7.6 g/dLNormal6.3-8.0[facility] on above:Order Comment: Specimen Type: BLOOD SPECIMENOrdering Facility: [facility] Address:[address] [place], [place] [address]Performed By: #### 91814-2 ####[facility] LABIA [id number] [place] [address] [place] Sodium [Moles/Vol]144 mmol/SMxftlp352-605VqnimprjdLake County Memorial Hospital - West on above:Order Comment: Specimen Type: BLOOD SPECIMENOrdering Facility: [facility] Address:[address] [place], [place] [address]Performed By: #### 37162-2 ####[facility] LABIA [id number] [place] [address] [place] AMERICAUrea nitrogen [Mass/Vol]23 mg/dLHigh7-21[facility] on above:Order Comment: Specimen Type: BLOOD SPECIMENOrdering Facility: [facility] Address:[address] [place], [place] [address]Performed By: #### 41174- 8 ####[facility] [id number] [place] [address] [place] STATES OF AMERICACNPNon [id number] (UMAQ) CARRIE FLETCHER ([id number]) 1970 F Date Time Provider Department 03/25/23 [...] mg by mouth three times daily. - multivit-minerals/folic acid (ONE-A-DAY WOMEN VITACRAVES ORAL) Take by mouth. - sennosides (SENOKOT ORAL) Take by mouth. Problem List As Of Date: 03/25/2023 (None) Encounter Status:Closed by TIFFANY GRUBER on 04/01/23No[address] with Estimated Average Gluon 50-93-1503Mclaiyg [Mass/Vol]105 mg/dL NormalThe Unc Health Caldwell Physician GroupComment on above:Order Comment: Reason for Exam Neurogenic bladder;S/P bariatric surgery;History of pulmonarResult Comment: PERFORMED BY: [place] [address] PATHOLOGIST SENIOR RUBY DEVELOPER DINO ANDREWS M.D.Performed By: #### A1C WTH eA #### [facility] [address] [place] [address] CSBHjA8q (Bld) [Mass fraction]5.3 %Normal4.3-5.6The [facility] Caldwell Physician GroupComment on above:Order Comment: Reason for Exam Neurogenic bladder;S/P bariatric surgery;History of pulmonarResult Comment: Increased risk for diabetes: 5.7 - 6.4 diabetes: >6.4 glycemic control for adults with diabetes: <7.0Performed By: #### A1C WTH eA #### [facility] [address] [place] [address] USAAlanine aminotransferase [Enzymatic activity/volume] in Serum or PlasmaOrdered By: Lon Ibrahim on 18-08-2494MZI [Catalytic activity/Vol] 12 U/LNormal7-52A[facility] Medical CenterComment on above:Order Comment: Reason for Exam Neurogenic bladder;S/P bariatric surgery;History of pulmonarPerformed By: #### CMP, TSH3, LIPID #### [facility] [address] [place] [id number] USAAlbumin [Mass/volume] in Serum or Plasma by Bromocresol green (BCG) dye binding methoOrdered By: Lon Ibrahim on 10-49-8759Rttgfhe BCG dye [Mass/Vol]3.7 g/dL3.5-5.7FOhioHealth Riverside Methodist HospitalAlkaline phosphatase [Enzymatic activity/volume] in Serum or PlasmaOrdered By: Lon Ibrahim on 01-84-9841PGL [Catalytic activity/Vol]44 U/PRzvjzg91-278XrsjbsgfvAdena Regional Medical CenterComment on above:Order Comment: Reason for Exam Neurogenic bladder;S/P bariatric surgery;History of pulmonarPerformed By: #### CMP, TSH3, LIPID #### [facility] [address] [place] [id number] USAAspartate aminotransferase [Enzymatic activity/volume] in Serum or PlasmaOrdered By: Lon Ibrahim on 06-57-8110BGR [Catalytic activity/Vol] 13 U/GYrxfil53-10EjoqqgtbwAdena Regional Medical CenterComment on above:Order Comment: Reason for Exam Neurogenic bladder;S/P bariatric surgery;History of pulmonarPerformed By: #### CMP, TSH3, LIPID #### [place] [address] USAAutomated basophil %Ordered By: Lon Ibrahim on 01-15-2023 Basophils/100 WBC (Bld)0.3 %Normal.A[facility] Regional Medical CenterComment on above:Order Comment: Reason for Exam Neurogenic bladder;S/P bariatric surgery;History of pulmonarPerformed By: #### LIPID, CBC, TSH3, A1C WTH eA, CMP #### [place] [address] USAAutomated basophil countOrdered By: Lon Ibrahim on 65-61-9548Rqyqpcttj (Bld) [#/Vol]0.0 10*3/uLNormal0.0-0.2FOhioHealth Riverside Methodist HospitalComment on above:Order Comment: Reason for Exam Neurogenic bladder;S/P bariatric surgery;History of pulmonarResult Comment: PERFORMED BY: [place] [address] PATHOLOGIST SENIOR RUBY DEVELOPER DINO ANDREWS M.D.Performed By: #### LIPID, CBC, TSH3, A1C WTH eA, CMP #### [place] [address] USAAutomated blood monocyte countOrdered By: Lon Ibrahim on 43-71-1465Mnngwdwlp (Bld) [#/Vol]0.4 10*3/uLNormal0.0-0.8A[facility] Regional Medical CenterComment on above:Order Comment: Reason for Exam Neurogenic bladder;S/P bariatric surgery;History of pulmonarPerformed By: #### LIPID, CBC, TSH3, A1C WTH eA, CMP #### [place] [address] USAAutomated eosinophil %Ordered By: Lon Ibrahim on 01-15-2023 Eosinophils/100 WBC (Bld)1.6 %Normal.[facility] Regional Medical CenterComment on above:Order Comment: Reason for Exam Neurogenic bladder;S/P bariatric surgery;History of pulmonarPerformed By: #### LIPID, CBC, TSH3, A1C WTH eA, CMP #### [facility] [address] [place] [id number] USAAutomated eosinophil countOrdered By: Lon Ibrahim on 14-93-9902Saeaeiagmwz (Bld) [#/Vol]0.1 10*3/uLNormal0.0-0.45A[facility] Medical CenterComment on above:Order Comment: Reason for Exam Neurogenic bladder;S/P bariatric surgery;History of pulmonarPerformed By: #### LIPID, CBC, TSH3, A1C WTH eA, CMP #### [facility] [address] [place] [id number] USAAutomated monocyte %Ordered By: Lon Ibrahim on 01-15-2023 Monocytes/100 WBC (Bld)6.4 %Normal.[facility] Regional Medical CenterComment on above:Order Comment: Reason for Exam Neurogenic bladder;S/P bariatric surgery;History of pulmonarPerformed By: #### LIPID, CBC, TSH3, A1C WTH eA, CMP #### [facility] [address] [place] [address] USAAutomated neutrophil %Ordered By: Lon Ibraihm on 01-15-2023 Neutrophils/100 WBC (Bld)54.5 %Normal.[facility] Medical CenterComment on above:Order Comment: Reason for Exam Neurogenic bladder;S/P bariatric surgery;History of pulmonarPerformed By: #### LIPID, CBC, TSH3, A1C WTH eA, CMP #### [facility] [address] [place] [id number] USABilirubin.total [Mass/volume] in Serum or PlasmaOrdered By: Lon Ibrhaim on 50-98-9611Cftlgdrcz [Mass/Vol]0.3 mg/dLNormal0.3-1.0A[facility] Medical CenterComment on above:Order Comment: Reason for Exam Neurogenic bladder;S/P bariatric surgery;History of pulmonarPerformed By: #### CMP, TSH3, LIPID #### [facility] [address] [place] [address] USACalcium [Mass/volume] in Serum or PlasmaOrdered By: Lon Ibrahim on 16-05-3097Whizbbu [Mass/Vol]9.2 mg/dLNormal8.6-10.3FOhioHealth Riverside Methodist HospitalComment on above:Order Comment: Reason for Exam Neurogenic bladder;S/P bariatric surgery;History of pulmonarPerformed By: #### CMP, TSH3, LIPID #### [facility] [address] [place] [address] USACarbon dioxide, total [Moles/volume] in Serum or Plasma Ordered By: Lon Ibrahim on 78-14-9418RF6 [Moles/Vol]28.4 mmol/QVoympj19.0-31.0 [facility] Medical CenterComment on above:Order Comment: Reason for Exam Neurogenic bladder;S/P bariatric surgery;History of pulmonarPerformed By: #### CMP, TSH3, LIPID #### [facility] [address] [place] [address] USAChloride [Moles/volume] in Serum or PlasmaOrdered By: Lon Ibrahim on 22-85-2600Zuskvwrg [Moles/Vol]107 mmol/NFkzsue14-422AakhvaurpAdena Regional Medical CenterComment on above:Order Comment: Reason for Exam Neurogenic bladder;S/P bariatric surgery;History of pulmonarPerformed By: #### CMP, TSH3, LIPID #### [facility] [address] [place] [address] USACholesterol [Mass/volume] in Serum or PlasmaOrdered By: Lon Ibrahim on 11-51-3092Fuhdvvizoqd [Mass/Vol]193 mg/rVFzmxxp877-034WhriczwqcAdena Regional Medical CenterComment on above:Chol less than 200 mg/dl low riskChol 201-239 mg/dl borderline riskChol 240 mg/dl and greater high riskOrder Comment: Reason for Exam Neurogenic bladder;S/P bariatric surgery;History of pulmonarResult Comment: Chol less than 200 mg/dl low risk Chol 201-239 mg/dl borderline risk Chol 240 mg/dl and greater high riskPerformed By: #### CMP, TSH3, LIPID #### [facility] [address] [place] [id number] USACholesterol in LDL Calc [Mass/Vol]Ordered By: Lon Ibrahim on 91-90-3314Qczidqwbyir in LDL [Mass/Vol]104 mg/dL0-100A[facility] Medical CenterComment on above:LDL ATP III CLASSIFICATIONLDL less than 100 mg/dL OptimalLDL 100-129 mg/dL Near or above ydyiftkVJJ702-323 mg/dL Borderline highLDL 160-189 mg/dL HighLDL greater than 189 mg/dL Very highCholesterol in VLDL Calc [Mass/Vol]Ordered By: Lon Ibrahim on 33-47-9959Zmkiubraecx in VLDL [Mass/Vol]39 mg/dLAdena Regional Medical CenterComplete Blood Count Auto Diffon 02-43-2187Rhcg Corpuscular HGB Conc32.5 g/vXCzxqzu29.0-35.0The [facility] Physician GroupComment on above:Order Comment: Reason for Exam Neurogenic bladder;S/P bariatric surgery;History of pulmonarPerformed By: #### LIPID, CBC, TSH3, A1C WTH eA, CMP #### [facility] [address] [place] [id number] USANRBC%0.1 /100{WBC}Normal0-0.5The [facility] Comment on above:Order Comment: Reason for Exam Neurogenic bladder;S/P bariatric surgery;History of pulmonarPerformed By: #### LIPID, CBC, TSH3, A1C WTH eA, CMP #### [facility] [address] [place] [id number] USAComprehensive Metabolic Panelon 79-65-4582Tytuhrf [Mass/Vol]3.7 g/dLNormal3.5-5.7The [facility] Physician GroupComment on above: Order Comment: Reason for Exam Neurogenic bladder;S/P bariatric surgery;History of pulmonarPerformed By: #### CMP, TSH3, LIPID #### [facility] [address] [place] [address] USAGFR/1.73 sq M.predicted MDRD (S/P/Bld) [Vol rate/Area] mL/min/{1.73_m2}NormalThe [facility] Caldwell Physician GroupComment on above:Order Comment: Reason for Exam Neurogenic bladder;S/P bariatric surgery;History of pulmonarPerformed By: #### CMP, TSH3, LIPID #### [facility] [address] [place] [address] USACreatinine [Mass/volume] in Serum or PlasmaOrdered By: Lon Ibrahim on 28-16-9308Tyearfvqly [Mass/Vol]0.83 mg/dLNormal0.60-1.20[facility] Medical CenterComment on above:Order Comment: Reason for Exam Neurogenic bladder;S/P bariatric surgery;History of pulmonarPerformed By: #### CMP, TSH3, LIPID #### [place] [address] USAErythrocyte distribution width [Ratio] by Automated count Ordered By: Lon Ibrahim on 07-57-0580Pvmunneyhoj distribution width (RBC) [Ratio] 14.1 %Gkbpff35.9-15.3FOhioHealth Riverside Methodist HospitalComment on above:Order Comment: Reason for Exam Neurogenic bladder;S/P bariatric surgery;History of pulmonarPerformed By: #### LIPID, CBC, TSH3, A1C WTH eA, CMP #### [place] [address] USAErythrocytes [#/volume] in Blood by Automated countOrdered By: Lon Ibrahim on 08-86-2168AGJ (Bld) [#/Vol]4.27 10*6/uLNormal3.60-5.00 [facility] CenterComment on above:Order Comment: Reason for Exam Neurogenic bladder;S/P bariatric surgery;History of pulmonarPerformed By: #### LIPID, CBC, TSH3, A1C WTH eA, CMP #### [facility] [address] [place] [id number] USAGlucose [Mass/volume] in Serum or PlasmaOrdered By: Lon Ibrahim on 27-47-9330Xbldjgt [Mass/Vol]84 mg/yUIgecok98-162CcbymbbwuAdena Regional Medical CenterComment on above:ADA recommended reference rangeRandom Glucose Reference Range is dependent on time and content of last meal. Glucose of more than 200 mg/dL in a nonstressed, ambulatory subject supports the diagnosisof Diabetes Mellitus.Order Comment: Reason for Exam Neurogenic bladder;S/P bariatric surgery;History of pulmonarResult Comment: Random Glucose Reference Range is dependent on time and content of last meal. Glucose of more than 200 mg/dL in a nonstressed, ambulatory subject supports the diagnosis of Diabetes Mellitus. ADA recommended reference rangePerformed By: #### CMP, TSH3, LIPID #### [facility] [address] [place] [address] USAHematocrit [Volume Fraction] of Blood by Automated count Ordered By: Lon Ibrahim on 41-22-2478Qcgzxzfmys (Bld) [Volume fraction]39.8 % Kinrsh56.0-46.4FOhioHealth Riverside Methodist HospitalComment on above:Order Comment: Reason for Exam Neurogenic bladder;S/P bariatric surgery;History of pulmonar Performed By: #### LIPID, CBC, TSH3, A1C WTH eA, CMP #### [facility] [address] [place] [address] USAHemoglobin [Mass/volume] in BloodOrdered By: Lon Ibrahim on 56-86-9987Ymctwzyovo (Bld) [Mass/Vol]13.0 g/jSVkcofq10.8-15.4FOhioHealth Riverside Methodist HospitalComment on above:Order Comment: Reason for Exam Neurogenic bladder;S/P bariatric surgery;History of pulmonarPerformed By: #### LIPID, CBC, TSH3, A1C WTH eA, CMP #### [facility] [address] [place] [address] USALeukocytes [#/volume] corrected for nucleated erythrocytes in Blood by Automated counOrdered By: Lon Ibrahim on 16-80-0143ZSF corrected for nucl RBC Auto (Bld) [#/Vol]6.8 10*3/uL3.8-11.6FOhioHealth Riverside Methodist Hospital Leukocytes [#/volume] in Blood by Automated countOrdered By: Lon Ibrahim on 61-22-8877SIT (Bld) [#/Vol]6.8 10*3/uLNormal3.8-11.6FOhioHealth Riverside Methodist HospitalComment on above:Order Comment: Reason for Exam Neurogenic bladder;S/P bariatric surgery;History of pulmonarPerformed By: #### LIPID, CBC, TSH3, A1C WTH eA, CMP #### [facility] [address] [place] [address] USALipid Panelon 82-95-0017WWT Cholesterol,Shtscwhlop402 mg/dLHigh0-100The [facility] Physician GroupComment on above:Order Comment: Reason for Exam Neurogenic bladder;S/P bariatric surgery;History of pulmonarResult Comment: LDL ATP III CLASSIFICATION LDL less than 100 mg/dL Optimal LDL 100-129 mg/dL Near or above optimal LDL 130-159 mg/dL Borderline high LDL 160-189 mg/dL High LDL greater than 189 mg/dL Very highPerformed By: #### CMP, TSH3, LIPID #### [facility] [address] [place] [address] USATriglyceride w/Xqexoh113 mg/dLHigh0-149The [facility]ician [facility] HospitalComment on above:Order Comment: Reason for Exam Neurogenic bladder;S/P bariatric surgery;History of pulmonarResult Comment: TRIG ATP III CLASSIFICATION TRIG less than 150 mg/dL Normal TRIG 150-199 mg/dL Borderline high TRIG 200-500 mg/dL High TRIG greater than 500 mg/dL Very high Standard traceable to the Center for Disease Conrtrol and Prevention (CDC) test method.Performed By: #### CMP, TSH3, LIPID #### [facility] [address] [place] [address] USAVLDL OMOYEDIKROS97 mg/dLNormalThe [facility]dwell Physician GroupComment on above:Order Comment: Reason for Exam Neurogenic bladder;S/P bariatric surgery;History of pulmonarPerformed By: #### CMP, TSH3, LIPID #### [facility] [address] [place] [address] USALymphocytes [#/volume] in Blood by Automated countOrdered By: Lon Ibrahim on 35-68-2858Zjiujqltsso (Bld) [#/Vol]2.5 10*3/uLNormal1.00-4.8 [facility] CenterComment on above:Order Comment: Reason for Exam Neurogenic bladder;S/P bariatric surgery;History of pulmonarPerformed By: #### LIPID, CBC, TSH3, A1C WTH eA, CMP #### [facility] [address] [place] [address] USALymphocytes/100 leukocytes in Blood by Automated count Ordered By: Lon Ibrahim on 79-52-3751Qmhuaudvmwd/100 WBC (Bld)37.2 %Normal. [facility] Medical CenterComment on above:Order Comment: Reason for Exam Neurogenic bladder;S/P bariatric surgery;History of pulmonarPerformed By: #### LIPID, CBC, TSH3, A1C WTH eA, CMP #### [facility] [address] [place] [address] [facility] [Entitic mass] by Automated countOrdered By: Lon Ibrahim on 21-29-4520DRN (RBC) [Entitic mass]30.3 onEjxwju97.7-34.3FOhioHealth Riverside Methodist HospitalComment on above:Order Comment: Reason for Exam Neurogenic bladder;S/P bariatric surgery;History of pulmonarPerformed By: #### LIPID, CBC, TSH3, A1C WTH eA, CMP #### [facility] [address] [place] [address] [facility] Auto (RBC) [Mass/Vol]Ordered By: Lon Ibrahim on 21-01-0639DULF (RBC) [Mass/Vol]32.5 g/dL32.0-35.0[facility] HospitalV [Entitic volume] by Automated countOrdered By: Lon Ibrahim on 38-47-8920PRL (RBC) [Entitic vol]93.2 yZYmnbvk39-878TzeufyphjAdena Regional Medical CenterComment on above:Order Comment: Reason for Exam Neurogenic bladder;S/P bariatric surgery;History of pulmonarPerformed By: #### LIPID, CBC, TSH3, A1C WTH eA, CMP #### [facility] [address] [place] [id number] USANeutrophils [#/volume] in Blood by Automated countOrdered By: Lon Ibrahim on 44-03-4696Gufnqfjlkrm (Bld) [#/Vol]3.7 10*3/uLNormal1.8-7.7 [facility] CenterComment on above:Order Comment: Reason for Exam Neurogenic bladder;S/P bariatric surgery;History of pulmonarPerformed By: #### LIPID, CBC, TSH3, A1C WTH eA, CMP #### [facility] [address] [place] [address] USANo Panel InformationOrdered By: Lon Ibrahim on 01-15-2023 Estimated GFR (CKD-EPI)> 60.0 mL/MinAdena Regional Medical CenterPharmacy Creatinine Clearance (ChemN/UK HealthcareNucleated erythrocytes [Presence] in Blood by Automated countOrdered By: Lon Ibrahim on 35-30-0288Tdintkhit RBC Auto Ql (Bld)0.1 /100{WBC}0-0.5FOhioHealth Riverside Methodist HospitalPlatelet mean volume [Entitic volume] in Blood by Automated count Ordered By: Lon Ibrahim on 08-70-2092Iilrnmij mean volume (Bld) [Entitic vol]8.7 fLNormal6.3-10.7FOhioHealth Riverside Methodist HospitalComment on above:Order Comment: Reason for Exam Neurogenic bladder;S/P bariatric surgery;History of pulmonar Performed By: #### LIPID, CBC, TSH3, A1C WTH eA, CMP #### [facility] [address] [place] [id number] USAPlatelets [#/volume] in Blood by Automated countOrdered By: Lon Ibrahim on 51-65-0551Jgyfstrkg (Bld) [#/Vol]234 10*3/uSGzpozc828-251 [facility] CenterComment on above:Order Comment: Reason for Exam Neurogenic bladder;S/P bariatric surgery;History of pulmonarPerformed By: #### LIPID, CBC, TSH3, A1C WTH eA, CMP #### [facility] [address] [place] [id number] USAPotassium [Moles/volume] in Serum or PlasmaOrdered By: Lon Ibrahim on 88-78-6370Frsvgalke [Moles/Vol]4.1 mmol/LNormal3.5-5.1FOhioHealth Riverside Methodist HospitalComment on above:Order Comment: Reason for Exam Neurogenic bladder;S/P bariatric surgery;History of pulmonarPerformed By: #### CMP, TSH3, LIPID #### [facility] [address] [place] [address] USAProtein [Mass/volume] in Serum or PlasmaOrdered By: Lon Ibrahim on 75-54-1488Cjlbdcc [Mass/Vol]7.0 g/dLNormal6.4-8.9[facility] CenterComment on above:Order Comment: Reason for Exam Neurogenic bladder;S/P bariatric surgery;History of pulmonarPerformed By: #### CMP, TSH3, LIPID #### [facility] [address] [place] [address] USASerum globulin measurement by calculation (mass/volume) Ordered By: Lon Ibrahim on 12-60-5044Jcvcnvuu (S) [Mass/Vol]3.3 g/dLNormal [facility] CenterComment on above:Order Comment: Reason for Exam Neurogenic bladder;S/P bariatric surgery;History of pulmonarPerformed By: #### CMP, TSH3, LIPID #### [facility] [address] [place], [place] [address] USASerum or plasma albumin/globulin mass ratioOrdered By: Lon Ibrahim on 17-69-7946Sfxgzrg/Globulin [Mass ratio]1.1 {ratio}NormalAdena Regional Medical CenterComment on above:Order Comment: Reason for Exam Neurogenic bladder;S/P bariatric surgery;History of pulmonarPerformed By: #### CMP, TSH3, LIPID #### [facility] [address] [place] [id number] USASerum or plasma anion gap determinationOrdered By: Lon Ibrahim on 49-34-2608Fbijv gap [Moles/Vol]9.7 mmol/LNormal6.0-15.0[facility] Medical CenterComment on above:Order Comment: Reason for Exam Neurogenic bladder;S/P bariatric surgery;History of pulmonarPerformed By: #### CMP, TSH3, LIPID #### [facility] [address] [place] [address] USASerum or plasma high density lipoprotein (HDL) cholesterol measurementOrdered By: Lon Ibrahim on 90-74-4932Cnpcjjozvbt in HDL [Mass/Vol]50 mg/aEWvzcqy53-26GnrywcgxjAdena Regional Medical CenterComment on above:HDL CHOL ATP- III CLASSIFICATION Cardiovascular RiskHDL > or equal to 60 mg/dL LOWHDL < 40 mg/dL HIGHOrder Comment: Reason for Exam Neurogenic bladder;S/P bariatric surgery;History of pulmonarResult Comment: HDL CHOL ATP-III CLASSIFICATION Cardiovascular Risk HDL > or equal to 60 mg/dL LOW HDL < 40 mg/dL HIGHPerformed By: #### CMP, TSH3, LIPID #### [facility] [address] [place] [address] USASerum or plasma total cholesterol/high density lipoprotein (HDL) cholesterol mass ratOrdered By: Lon Ibrahim on 01-15-2023 Cholesterol.total/Cholesterol in HDL [Mass ratio]3.9 {ratio}Normal<5.0[facility] CenterComment on above:Order Comment: Reason for Exam Neurogenic bladder;S/P bariatric surgery;History of pulmonarPerformed By: #### CMP, TSH3, LIPID #### [facility] [address] [place] [address] USASodium [Moles/volume] in Serum or PlasmaOrdered By: Lon Ibrahim on 12-35-2720Cmrxxm [Moles/Vol]141 mmol/QKifwpg955-381WolprkdyfAdena Regional Medical CenterComment on above:Order Comment: Reason for Exam Neurogenic bladder;S/P bariatric surgery;History of pulmonarPerformed By: #### CMP, TSH3, LIPID #### [facility] [address] [place] [address] USAThyrotropin [Units/volume] in Serum or PlasmaOrdered By: Lon Ibrahim on 85-63-6683KIS Qn1.78 m[IU]/LNormal0.45-5.33[facility] CenterComment on above:Order Comment: Reason for Exam Neurogenic bladder;S/P bariatric surgery;History of pulmonarResult Comment: PERFORMED BY: [place] [address] PATHOLOGIST SENIOR RUBY DEVELOPER DINO ANDREWS M.D.Performed By: #### CMP, TSH3, LIPID #### [facility] [address] [place] [id number] USATriglyceride [Mass/volume] in Serum or PlasmaOrdered By: Lon Ibrahim on 85-82-0682Xbbmyanzmvzu [Mass/Vol]196 mg/dL0-149[facility] CenterComment on above:TRIG ATP III CLASSIFICATIONTRIG less than 150 mg/dL NormalTRIG 150-199 mg/dL Borderline highTRIG 200-500 mg/dL High TRIG greater than 500 mg/dL Very highStandard traceable to the Center for Disease Co nrtrol and Prevention (CDC) test method.Urea nitrogen [Mass/volume] in Serum or PlasmaOrdered By: Lon Ibrahim on 77-96-1305Ixhn nitrogen [Mass/Vol]22 mg/dLNormal 7-25[facility] Medical CenterComment on above:Order Comment: Reason for Exam Neurogenic bladder;S/P bariatric surgery;History of pulmonarPerformed By: #### CMP, TSH3, LIPID #### [facility] [address] [place] [address] USAUrinalysis - AUTOMATEDon 56-61-1003Spggctvhfo (U)cloudy [employer] Other Bilirubin Ql (U)[employer] Other Color (U)[employer] Other Glucose Ql (U)[employer] Other Hemoglobin Ql (U)[employer] Other Ketones Ql (U)TraceInCights [employer] Other Leukocyte esterase Test strip Ql (U)[employer] Other Nitrite Ql (U)PositiveNoripley county memorial hospital Zh[employer] Other pH (U)6.0 [pH][employer] Other Protein Ql (U)30+[employer] Other Specific gravity (U) [Rel density]1.015Noripley county memorial hospital [employer] Other Urobilinogen (U) [Mass/Vol]0.2 mg/dLNoemoteShare Other Urinalysis - AUTOMATEDNoemoteShare Other Urine Cultureon 47-91-7700Drujzadm identified Cx Nom (U)ORGANISM: Escherichia coli (MDRO) (O:ESCCOLMDRO) [place] Count >100,000 Aerobic JAVIER Charge (NMIC56) SUSCEPTIBILITY ORGANISM: O:ESCCOLMDRO ANTIBIOTIC INTERPRETATION JAVIER Amikacin S <16 Amoxacillin/K Clavulanate I 1616/8 Ampicillin R >16 Ampicillin/Sulbactam R >16 Aztreonam S <4 Cefazolin R >16 Cefepime S <2 Ceftazidime S <1 Ceftazidime/Avibactam S <4 Ceftolozane/Tazobactam S <2 Ceftriaxone S <1 Cefuroxime R >16 Ciprofloxacin R >2 Ertapenem S <0.5 Gentamicin R >8 Levofloxacin R >4 Meropenem S <1 Meropenem/Vaborbactam S <2 Nitrofurantoin I 64 Piperacillin/Tazobactam I 64 Tetracycline R >8 Tigecycline S <2 Tobramycin R >8 Trimethoprim/Sulfamethoxazole R >2 S = SUSCEPTIBLE I = [...] RESISTANT TO ALL B-LACTAM DRUGS. PERFORMED BY: [facility] [address] [place] [address] PATHOLOGIST SENIOR RUBY DEVELOPER DINO ANDREWS M.D.[facility]oral Physician GroupComment on above:Performed By: #### CUU #### [place] [id number] USAXR LUMBAR MOTION 4V AP/LAT/ FLEX/EXTon 67-48-3516Omqsprcbu ClinicNo Panel Informationon 47-76-0649Rvwmgqlyd ResultACTIONABLEAbnormal St. Rita'S HospitalTelephoneon [phone] Chance,Carrie 1970 F Date Provider Department Center 11/13/2022 ILSA MÁRQUEZ MP OT [facility] No family history on fileNormalUniversity of Citizens Medical CenterNo Panel Informationon [id number] ClinicTelephoneon [phone] Chance,Carrie 1970 F Date Provider Department Center 08/27/2022 ILSA MÁRQUEZ MP OT Medical [facility] No family history on fileNormalUniversity of Citizens Medical CenterTelephoneon [phone] Chance,Carrie 1970 F Date Provider Department Center 08/24/2022 ILSA MÁRQUEZ MP OT Medical [facility]avi No family history on fileNormalUniversity of Citizens Medical CenterCT CERVICAL SPINE WO CONTRASTon 86-89-7497FT CERVICAL SPINE WO CONTRASTEXAMINATION: CT OF THE CERVICAL SPINE WITHOUT CONTRAST [...] at C5-C6 and mild elsewhere. There is mssq-rl-uhoddlhp multilevel facet arthropathy in the spine. Central canal narrowing appears at least moderate and possibly severe at C5-C6 and is mild at C3-C4 and C6-C7. Multilevel osseous foraminal narrowing is mild bilaterally at C3-C4, mild on the left at C4-C5 and rooq-aj-qxhniyhe bilaterally at C5-C6. SOFT TISSUES: There is no prevertebral soft tissue swelling. IMPRESSION: 1. Prior anterior metallic fusion discectomy at C4-C5 out evident hardware complication. 2. Spinal degenerative changes as described. Multilevel central canal narrowing is most prominent at least moderate and possibly severe at C5-C6. Multilevel osseous neural foraminal narrowing is most prominent and jpfb-bt-oyivoyap bilaterally at C5-C6. Interpreted by: Ilsa Whitley MD Signed by: Ilsa Whitley MD 07/17/22 Final resultNormalMerConnecticut Hospiceulatory Visit Summaryon 06-16-2022 Ambulatory Visit Summary 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1970 [...] multivitamin (Multi Vitamin+) omega-3 polyunsaturated fatty acids (Marion-3) Procedures Performed Urodynamics (12/10/2021), Cystourethroscopy and dilation [...] FOLEY, Nicole Garcia [facility] Educationon 70-40-2161Erasbyc EducationObstetrics and Gynecology Urinary Tract Infection, Adult A urinary tract infection (UTI) is an infection of any part of the urinary tract. The urinary tractincludes the kidneys, ureters, bladder, and urethra. These organs make, store, and get rid of urinein the body. An upper UTI affects the [...] this condition includes: ? Antibiotic medicine. ? Ilku-jrg-exsjyaf medicines to treat discomfort. ? Drinking enough [...] these instructions at home: Medicines ? Take zkcp-die-dmnuldy and prescription medicines only as told by [...] Revised: 09/06/2020 Document Revie (more content not included)...[facility] HospitalU[facility] Office/Clinic Noteon 37-65-8137Nlsdgqj Office/Clinic NoteChief Complaint 3 month HPI Staff This is a 51 year old female here for 3 month F/U. Previous DX: recurrent UTI, incontinence withoutsensory awareness, asymptomatic micro hematuria and postinfective urethral stricture in female. S/PCysto/UD done 07/21/21. Pt. is not able to give a urine sample today. Pt. states Brittany is workinga little. Pt. states she has been taking [...] report. Patient also experiencing urge incontinence. Continues QSALbzbe1vn daily, states it is somewhat working. Patient goes through 6 pads/day. Will increase VESIcare 5mg (2 tabs in the morning and 1 tab in the evening). New script sent today.Follow up in 1 year. All questions/concerns were [...] When Contact Information YECENIA FOLEY, Nicole Garcia, [address] [place] [address]- Additional Instructions: 1 year Patient Education Urinary Tract Infection, Adult I, Peyton Bond, personally scribed for Dr. Keene on 06/16/2022 10:19:29. . Documentation recorded by the scribePeyton, accurately reflects [...] History Urodynamics (12/10/2021), Cystourethr (more content not included)...[facility] CenterComment on above:Result Comment: Electronically Signed By: Nicole KEENE MD\.br\Date and Time Signed: 06/16/22 10:23 EDT\.br\Electronically Co-Signed By: Peyton Bond\.br\Date and Time Co- Signed: 06/16/22 10:19 EDTMRI CERVICAL SPINE WO CONTRASTon 12-44-2487FLD CERVICAL SPINE WO CONTRASTEXAMINATION: MRI OF THE CERVICAL SPINE WITHOUT CONTRAST [...] Signed by: Ramsey Trammell MD 05/19/22 Final resultNormalMercy Charlotte Hunger[facility] Hospital1. Anterior cervical discectomy and fusion of C4-C5. 2. Multilevel cervical spondylosis, most notable at C5-C6 (severe spinal canal stenosis, suspected severe bilateral foraminal narrowing). 3. Chronic C4-C5 myelomalacia. [facility] RIS CONSOLIDATEDEXAMINATION: MRI OF THE CERVICAL SPINE WITHOUT CONTRAST [...] spinal canal stenosis. No significant foraminal narrowing. Ramsey Rothman MD - 05/19/2022 EXAMINATION: MRI OF THE [...] bilateral foraminal narrowing). 3. Chronic C4-C5 myelomalacia. H.BLOOM Phone: MRI CERVICAL SPINE WO CONTRASTOrdered By: Ramsey Trammell on 57-83-3736QOA Capsule.fm Phone: MRQ CERVICAL SPINE WO CONTRASTon 69-85-9350Fatvunvun Study observation (narrative)H.BLOOM Phone: coding Summary.on 67-42-0048Hikrgl Summary. CD:[id number]+PGhlYWQ+XA6HEKVjV69hfJSkpA7QF5vZFR2SHDHYQWISGX9DLV1lt TV7JWypG5XamhUc [file] c2U6 (more content not included)...[facility] CenterLab Reports on 78-59-2813Xjn [id number]#1.00CD:127 [facility] Urineon 10-03-1128Anidmjpx identified Cx Nom (U)Microbiology PROCEDURE: Urine Culture [R1] SOURCE: U Random [...] or tested, I=Intermediate, ESBL=Extended spectrum beta-lactamase, R=Resistant, TFG=Thymidine-dependent strain, LUISA=Beta-lactamase positive, JAVIER=mcg/m;(mg/L), S*=Predicted susceptible interp, [...] Locations R1: This test was performed at: [facility], [address] [place] [address], [address] , , FvercrIrbshyOhioHealth Nelsonville Health CenterComment on above:Performed By: #### [id number] ####[place], [place] [address]Ambulatory Visit Summaryon 61-26-5795Tvyfofnbfd Visit Summary 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1970 Visit Date:02/24/2022 Ambulatory Visit Instructions Your Diagnosis Recurrent UTI Incontinence without sensory awareness Asymptomatic microscopic hematuria Postinfective urethral stricture in female Anticoagulated Tests Performed Urnls Dip Stick Auto w/o Microscopy POC 45578 Your Care Team Attending Physician - Nicole [...] multivitamin (Multi Vitamin+) omega-3 polyunsaturated fatty acids (Marion-3) Procedures Performed Urodynamics (12/10/2021), Cystourethroscopy and dilation [...] Nicole KEENE MD [facility]Patient Educationon 02-54-5883Yelltqi EducationObstetrics and Gynecology Urinary Tract Infection, Adult A [...] this condition includes: ? Antibiotic medicine. ? Hhnk-bkw-ixbbwrr medicines to treat discomfort. ? Drinking enough [...] these instructions at home: Medicines ? Take bslw-pja-zcyspxn and prescription medicines only as told by [...] in your genital area, around the entrance toyour urinary tract (urethra). ? Treatment for this condition often includes antibiotic medicines. ? If you were prescribed an antibiotic medicine, take it as told by your health care provider. Do not stop using the antibiotic even if you start to feel better. ? Keep all follow-up visits as told by your health care provider. This is important. This in (more content not included)...[facility] CenterUrology Office/Clinic Noteon 77-95-1506Ejajtwv Office/Clinic NoteChief Complaint 2 month F/U HPI Staff This is a 51 year old female here for 2 month F/U to starting VESIcare. Previous DX: recurrent UTI,incontinence w/out sensory awareness, asymptomatic micro hematuria and [...] an improvement with medication. Pt. to continue timedvoids. Follow up in 3 months. All questions/concerns were discussed. Pt. to call the office if she e ncounters any issues prior. Pt. acknowledges understanding. 3. [...] the stricture can return and dilation may needrepeated. States her stream is better than what [...] Contact Information YECENIA FOLEY, Nicole Garcia, [address] [place] [address]- Additional Instructions: 3 mos Patient Education Urinary Tract Infection, Adult I, Peyton Bond, personally scribed for Dr. Keene on 02/24/2022 12:57:02. Documentation recorded by the scribe, Peyton Bond, [...] Incontinence without sensory aw (more content not included)...[facility] CenterComment on above:Result Comment: Electronically Signed By: Nicole KEENE MD\.br\Date and Time Signed: 02/24/22 13:22 EST\.br\Electronically Co- Signed By: Peyton Bond\.br\Date and Time Co-Signed: 02/24/22 12:57 EST IntraOperative Documentson 01-69-0670OpimtOguvudlpv Documents [id number]#1.00CD:127[facility] CenterIntraOperative Documents [id number]#1.00CD:127[facility] CenterAmbulatory Visit Summaryon 06-49-1741Mqdknpaamf Visit Summary 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1970 Visit Date:12/30/2021 Ambulatory Visit Instructions Your Diagnosis Recurrent UTI Incontinence without sensory awareness Asymptomatic microscopic hematuria Postinfective urethral stricture in female Anticoagulated Tests Performed Urnls Dip Stick Auto w/o Microscopy POC 11587 Your Care Team Attending Physician - Nicole [...] multivitamin (Multi Vitamin+) omega-3 polyunsaturated fatty acids (Marion-3) Procedures Performed Urodynamics (12/10/2021), Cystourethroscopy and dilation [...] Nicole KEENE MD [facility] HospitalPatient Educationon 96-98-3168Gdlreod EducationObstetrics and Gynecology Urinary Tract Infection, Adult A [...] this condition includes: ? Antibiotic medicine. ? Pmmb-inv-tohaepu medicines to treat discomfort. ? Drinking enough [...] these instructions at home: Medicines ? Take llrf-drk-nrrxkpf and prescription medicines only as told by [...] in your genital area, around the entrance toyour urinary tract (urethra). ? Treatment for this condition often includes antibiotic medicines. ? If you were prescribed an antibiotic medicine, take it as told by your health care provider. Do not stop using the antibiotic even if you start to feel better. ? Keep all follow-up visits as told by your health care provider. This is important. This in (more content not included)...[facility] CenterUrology Office/Clinic Noteon 82-24-7767Kxmsswp Office/Clinic NoteChief Complaint 2 week F/U HPI Staff This is a 51 year old female here for 2 week F/U. Previous DX: recurrent UTI, postinfective withoutsensory awareness, asymptomatic micro hematuria and urge incontinence. [...] also experiencing urge incontinence. Reports she is goingthrough 6 depends a day, states she was using 8. Pt. shares that leakage is worse during the night.Patient has tried Oxybutynin in the past but states it made her feel like she couldn't void. Will start Vesicare 5mg bid (AM/PM). Discussed the medication side effects, and the patient will monitor cl osely for these, as well as for symptom [...] the stricture can return and dilation may needrepeated. States her stream is better than what it was. 5. 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 Patient needs timed voiding for her leakage a small dose of Vesicare 5 every morning and at bedtimemay help. Her urinary tract infection has responded to the antibiotic therapy. Patient still has her uterus. Dr. Cheatham had scoped this patient that is good finally I will see thepatient in 2 months and see how she makes out with timed voiding and Vesicare medications Follow-up With When Contact Information YECENIA FOLEY, Nicole Garcia, [address] [id number]- Additional Instructions: 2 mos f/up to [facility] Patient Education Urinary Tract Infection, Adult I, Peyton Bond, personally scribed for Dr. Keene on 12/30/2021 09:57:23. Electronically signedby marcelino Bond on 12/30/2021 Documentation recorded by the scribe, Peyton Bond, [...] aureus) culture positive Neurogeni (more content not included)...[facility] CenterComment on above:Result Comment: Electronically Signed By: Nicole KEENE MD\.br\Date and Time Signed: 12/30/21 10:01 EST\.br\Electronically Co-Signed By: Peyton Bondbr\Date and Time Co-Signed: 12/30/21 09:57 ESTPhysician Orderon [id number] [id number]:127 [facility] CenterCoding Summary.on 81-00-1582Znlpwr Summary. CD:[id number]+PGhlYWQ+DP9HCTWzP82ajATqlI1OC5fTIF1JRAPHNWXPTK2BMB7ga BN7UXwtO9WryfTh [file] c2U6 (more content not included)...[facility] Urineon 78-81-0599Ntanprat identified Cx Nom (U)Microbiology PROCEDURE: Urine Culture [R1] SOURCE: U Random [...] or tested, I=Intermediate, ESBL=Extended spectrum beta-lactamase, R=Resistant, TFG=Thymidine-dependent strain, LUISA=Beta-lactamase positive, JAVIER=mcg/m;(mg/L), S*=Predicted susceptible interp, [...] Locations R1: This test was performed at: [facility], [address] [place] [address], [facility] , , LytvlyCrkaiaOhioHealth Nelsonville Health CenterComment on above:Performed By: #### [id number] ####[facility] [address] [place], [place] [address]Physician Orderon [id number] Order [id number]:127[facility] CenterAmbulatory Visit Summaryon 19-10-3219Zjwrnzdimk Visit Summary 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1970 Visit Date:12/22/2021 Ambulatory Visit Instructions Your Diagnosis Recurrent UTI 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 Asymptomatic microscopic hematuria Urgency incontinence Anticoagulated Tests Performed Urnls Dip Stick Auto w/o Microscopy POC 66626 Your Care Team Attending Physician - Nicole [...] multivitamin (Multi Vitamin+) omega-3 polyunsaturated fatty acids (Marion-3) Procedures Performed Urodynamics (12/10/2021), Cystourethroscopy and dilation [...] FOLEY, Nicole Garcia [facility] HospitalPatient Educationon 36-91-5983Uohjvek EducationUrology Urodynamic Testing What is urodynamic testing? Urodynamic [...] including vitamins, herbs, eye drops, creams, and yefi-oqk-kvopiab medicines. ? Whether you are or may [...] with a material that shows up on X- rays (contrast material) so that X-ray pictures can [...] ? Nervous system diseases. (more content not included)...[facility] CenterUrology Office/Clinic Noteon 73-75-6053Lwvdiil Office/Clinic NoteChief Complaint follow up to Urodynamics HPI Staff [...] pt experiencing urgency, frequency. 6. 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 It [...] Contact Information YECENIA FOLEY, Nicole Garcia, URL [address] [place] [address]- Additional Instructions: F/u 2 weeks Patient Education Urodynamic Testing I, Sheeba Gunn, personally scribed for Dr. Keene on 12/22/2021 15:46:36. . Documentation recorded by the scribe, Kelly Craft, accurately reflects the services(s) I performed and decisions made by me. Authenticated by Dr. Keene on 12/22/2021 15:54:15. Problem List/Past Medical History Ongoing Anticoagulated (more content not included)...[facility] CenterComment on above: Result Comment: Electronically Signed By: Nicole KEENE MD\.br\Date and Time Signed: 12/22/21 15:54 EST\.br\Electronically Co-Signed By: Sheeba Gunn\.br\Date and Time Co-Signed: 12/22/21 15:47ESTCoding Summary.on 11-03-2022 Coding Summary. CD:[id number]+PGhlYWQ+EZ3ISOKnC92zfYItaX7EM2qKTT1VGEEHFNNCKP2WRS6jd OR0RYwkE9OmtnCs [file] OiBj (more content not included)...NormalBl[facility] HospitalConsent for Procedure/Surgeryon 58-95-2737Rludnzx for Procedure/Surgery [id number]#1.00CD:127NormBluffton HospitalConsent for Treatmenton 55-03-1838Wgdsgsa for Treatment [id number]#1.00CD:127[facility] CenterAlbumin [Mass/volume] in Serum or PlasmaOrdered By: Lon Ibrahim on 91-95-1541Jgzhxpo [Mass/Vol]3.3 g/dL3.2-5.5FOhioHealth Riverside Methodist Hospital Basophils Auto (Bld) [#/Vol]Ordered By: Lon Ibrahim on 68-24-2225Yjakhexxf (Bld) [#/Vol]0.0 10*3/uL0.0-0.2FOhioHealth Riverside Methodist HospitalBasophils/100 WBC Auto (Bld)Ordered By: Lon Ibrahim on 86-73-7535Pnfwatvnj/100 WBC (Bld)0.5 %.[facility] CenterBlood hemoglobin measurement (mass/volume)Ordered By: Lon Ibrahim on 37-80-2058Lyybobscfz (Bld) [Mass/Vol]12.8 g/dL11.8-15.4FOhioHealth Riverside Methodist HospitalBlood leukocytes automated count (number/volume)Ordered By: Lon Ibrahim on 19-99-1744EGK (Bld) [#/Vol]6.2 10*3/uL4.5-11.0[facility] CenterCholesterol [Mass/volume] in Serum or PlasmaOrdered By: Lon Ibrahim on 93-82-5815Gtigaxrriyy [Mass/Vol]206 mg/wJ405-810QfmzbwtcrAdena Regional Medical CenterComment on above:Chol less than 200 mg/dl low risk Chol 201-239 mg/dl borderline risk Chol 240 mg/dl and greater high riskCholesterol in LDL Calc [Mass/Vol]Ordered By: Lon Ibrahim on 84-99-1631Gpbamflfumc in LDL [Mass/Vol]118 mg/dL0-100[facility] CenterComment on above:LDL ATP III CLASSIFICATION LDL less than 100 mg/dL Optimal LDL 100-129 mg/dL Near or above optimal LDL 130-159 mg/dL Borderline high LDL 160-189 mg/dL High LDL greater than 189 mg/dL Very highCholesterol in VLDL Calc [Mass/Vol]Ordered By: Lon Ibrahim on 85-87-5747Cujwddmeeji in VLDL [Mass/Vol]38 mg/dLAdena Regional Medical CenterCreatinine and Glomerular filtration rate.predicted panel (S/P/Bld)Ordered By: Lon Ibrahim on 16-12-2799Gbpgrhqjay [Mass/Vol]0.90 mg/dL 0.44-1.03[facility] CenterEosinophils Auto (Bld) [#/Vol]Ordered By: Lon Ibrahim on 03-26-3834Eimluzxdbqz (Bld) [#/Vol]0.1 10*3/uL0.0-0.45 [facility] CenterEosinophils/100 WBC Auto (Bld)Ordered By: Lon Ibrahim on 07-86-6638Hzocojsqffc/100 WBC (Bld)1.7 %.[facility] CenterErythrocyte distribution width Auto (RBC) [Ratio]Ordered By: Lon Ibrahim on 97-49-2473Uvlpvpgdxqu distribution width (RBC) [Ratio]13.4 %11.9-15.3FOhioHealth Riverside Methodist HospitalEstimated glomerular filtration rate (GFR) non- AmericanOrdered By: Lon Ibrahim on 26-53-7703BLC/1.73 sq M.predicted among non- blacks MDRD (S/P/Bld) [Vol rate/Area]> 60 mL/MinAdena Regional Medical CenterFerritin [Mass/volume] in Serum or PlasmaOrdered By: Lon Ibrahim on 82-52-1901Fkdatuos [Mass/Vol]46.6 ng/pM51-576.8[facility] Folate [Mass/volume] in Serum or PlasmaOrdered By: Lon Ibrahim on 10-16-2021 Folate [Mass/Vol]ng/mL>5.9[facility] Medical CenterComment on above: Folate reference range: >5.9 ng/ml The WHO technical consultation on folate and vitamin b12 deficiencies has determined that folate concentrations less than 4 ng/ml are considered deficient.Globulin Calc (S) [Mass/Vol]Ordered By: Lon Ibrahim on 58-71-6300Ftjfrejv (S) [Mass/Vol]3.3 g/dLAdena Regional Medical CenterGlucose mean value [Mass/volume] in Blood Estimated from glycated hemoglobinOrdered By: Lon Ibrahim on 92-33-8273Hhxadhs glucose Estimated from glycated hemoglobin (Bld) [Mass/Vol]105 mg/dLAdena Regional Medical Center Hematocrit Auto (Bld) [Volume fraction]Ordered By: Lon Ibrahim on 10-16-2021 Hematocrit (Bld) [Volume fraction]39.1 %34.0-46.4FOhioHealth Riverside Methodist HospitalHemoglobin A1c percentageOrdered By: Lon Ibrahim on 45-13-3712BbE1y (Bld) [Mass fraction]5.3 %4.3-5.6FOhioHealth Riverside Methodist HospitalComment on above: Increased risk for diabetes: 5.7 - 6.4 diabetes: >6.4 glycemic control for adults with diabetes: <7.0Laboratory - Chemistry and Chemistry - challengeOrdered By: Lon Ibrahim on 04-16-3983Zptnmzvty (Vitamin B12) [Mass/Vol]432 pg/eW357-078DhyvyavkoAdena Regional Medical CenterLaboratory - Hematology and Cell countsOrdered By: Lon Ibrahim on 25-96-3009Eiynconoz RBC/100 WBC (Bld) [Ratio]0.2 %0-0.5FOhioHealth Riverside Methodist HospitalLymphocytes Auto (Bld) [#/Vol]Ordered By: Lon Ibrahim on 22-84-3224Kzlbioaptfw (Bld) [#/Vol]2.3 10*3/uL1.00-4.8[facility] Medical CenterLymphocytes/100 WBC Auto (Bld) Ordered By: Lon Ibrahim on 65-99-2149Hcesdtdxcyc/100 WBC (Bld)37.6 %.[facility] HospitalH Auto (RBC) [Entitic mass]Ordered By: Lon Ibrahim on 06-73-2242RZF (RBC) [Entitic mass]30.6 pg24.7-34.3FOhioHealth Riverside Methodist HospitalMCHC Auto (RBC) [Mass/Vol]Ordered By: Lon Ibrahim on 35-41-1009JKXW (RBC) [Mass/Vol]32.7 g/dL32.0-35.0[facility] Medical CenterMCV Auto (RBC) [Entitic vol]Ordered By: Lon Ibrahim on 14-31-1011LGH (RBC) [Entitic vol]93.5 fL 80-100[facility] Medical CenterMonocytes Auto (Bld) [#/Vol]Ordered By: Lon Ibrahim on 94-15-1000Sgjwffnhq (Bld) [#/Vol]0.4 10*3/uL0.0-0.8[facility] CenterMonocytes/100 WBC Auto (Bld)Ordered By: Lon Ibrahim on 61-29-0374Wveirqnve/100 WBC (Bld)6.9 %.[facility] Neutrophils Auto (Bld) [#/Vol]Ordered By: Lon Ibrahim on 54-67-9637Ebfqqdintfr (Bld) [#/Vol]3.3 10*3/uL1.8-7.7FOhioHealth Riverside Methodist HospitalNeutrophils/100 WBC Auto (Bld)Ordered By: Lon Ibrahim on 12-49-0584Gufwjtotjgo/100 WBC (Bld)53.3 %.[facility] CenterNo Panel InformationOrdered By: Lon Ibrahim on 31-62-949496883075-Zvkhbde Vitamin D Total47.4 ng/sE82-686LvlfbjdghAdena Regional Medical CenterComment on above:VITAMIN D STATUS 25(OH)VITAMIN D RANGE (ng/mL) Deficient <20 Insufficient 20 to <30 Sufficient 30 to 100 Reference: Neema MF,Tico ORNELAS, ShellAye ANGULO et al. Evaluation,treatment, and prevention of vitamin D deficiency; an Endocrine Society clinical practice guideline. JCEM. 2010; 96(7):1911-30.Estimated GFR ()> 60 mL/MinAdena Regional Medical CenterComment on above: GFR estimated reference range: According to KDOQI guidelines, <60 ml/min/1.73m2 is sufficient todiagnose a patient with chronic kidney disease.Pharmacy Creatinine Clearance (ChemN/UK HealthcarePlatelet mean volume Auto (Bld) [Entitic vol]Ordered By: Lon Ibrahim on 37-19-4201Tnfixjtt mean volume (Bld) [Entitic vol]8.6 fL6.3-10.7FOhioHealth Riverside Methodist Hospital Platelets Auto (Bld) [#/Vol]Ordered By: Lon Ibrahim on 32-45-1636Sollqvwms (Bld) [#/Vol]237 10*3/oT587-007AsqufdcdqAdena Regional Medical CenterProtein [Mass/volume] in Serum or PlasmaOrdered By: Lon Ibrahim on 24-25-7316Eollsub [Mass/Vol]6.6 g/dL 6.1-7.9A[facility] Medical CenterRBC Auto (Bld) [#/Vol]Ordered By: Lon Ibrahim on 33-19-5586HEN (Bld) [#/Vol]4.18 10*6/uL3.60-5.00[facility] General Hospitalerum or plasma alanine aminotransferase measurement without P-5'-P (enzymatic activiOrdered By: Lon Ibrahim on 07-37-0761WUP No additional P-5'-P [Catalytic activity/Vol]16 U/Y99-26DlafztfgdAshtabula General Hospitalerum or plasma albumin/globulin mass ratioOrdered By: Lon Ibrahim on 10-16-2021 Albumin/Globulin [Mass ratio]1.0 {ratio}[facility] Hospitalerum or plasma alkaline phosphatase measurement (enzymatic activity/volume)Ordered By: Lon Ibrahim on 88-11-5298MFH [Catalytic activity/Vol]56 U/C66-48JhktsmmvjAshtabula General Hospitalerum or plasma anion gap determinationOrdered By: Lon Ibrahim on 09-41-1668Pgqen gap [Moles/Vol]12.5 mmol/L6.0-15.0[facility] Hospitalerum or plasma aspartate aminotransferase measurement (enzymatic activity/volume)Ordered By: Lon Ibrahim on 22-13-6641DEU [Catalytic activity/Vol] 15 U/S83-98QgefkioacAshtabula General Hospitalerum or plasma calcium measurement (mass/volume)Ordered By: Lon Ibrahim on 29-59-2328Dmbcypu [Mass/Vol]9.3 mg/dL 8.2-10.2FCorey Hospitalerum or plasma chloride measurement (moles/volume)Ordered By: Lon Ibrahim on 81-74-2848Gyzzaxep [Moles/Vol]103 mmol/L 95-114As[facility] Hospitalerum or plasma glucose measurement (mass/volume)Ordered By: Lon Ibrahim on 06-74-8298Jxoaxam [Mass/Vol]80 mg/dL 70-100[facility] CenterComment on above:ADA recommended reference range Random Glucose Reference Range is dependent on time and content of last meal. Glucose of more than 200 mg/dL in a nonstressed, ambulatory subject supports the diagnosis of Diabetes Mellitus.Serum or plasma high density lipoprotein (HDL) cholesterol measurementOrdered By: Lon Ibrahim on 05-60-2228Owmuayfjrux in HDL [Mass/Vol]50 mg/fA60-35WcqtycbyeAdena Regional Medical CenterComment on above:HDL CHOL ATP-III CLASSIFICATION Cardiovascular Risk HDL > or equal to 60 mg/dL LOW HDL < 40 mg/dL HIGHSerum or plasma potassium measurement (moles/volume)Ordered By: Lon Ibrahim on 57-02-3210Yljkwqlze [Moles/Vol]4.2 mmol/L3.5-5.1FCorey Hospitalerum or plasma sodium measurement (moles/volume)Ordered By: Lon Ibrahim on 69-12-9451Oowszf [Moles/Vol]139 mmol/U487-213XjhfccekxAshtabula General Hospitalerum or plasma total bilirubin measurement (mass/volume) Ordered By: Lon Ibrahim on 53-67-9306Ednomajbo [Mass/Vol]0.5 mg/dL0.3-1.2 [facility] Hospitalerum or plasma total carbon dioxide measurement (moles/volume)Ordered By: Lon Ibrahim on 56-91-4375VQ7 [Moles/Vol] 27.7 mmol/L22.0-30.0[facility] Hospitalerum or plasma total cholesterol/high density lipoprotein (HDL) cholesterol mass ratOrdered By: Lon Ibrahim on 44-29-3454Jiwuxhvpbni.total/Cholesterol in HDL [Mass ratio]4.1 {ratio} <5.0[facility] Hospitalerum or plasma urea nitrogen measurement (mass/volume)Ordered By: Lon Ibrahim on 71-80-6691Wwry nitrogen [Mass/Vol]21 mg/dL9-23[facility] CenterTS DL <= 0.005 mIU/L QnOrdered By: Lon Ibrahim on 00-31-6965LEX Qn1.34 m[IU]/L0.45-5.33[facility] Medical CenterTriglyceride [Mass/volume] in Serum or PlasmaOrdered By: Lon Ibrahim on 05-70-4739Yyilvqzbwpcv [Mass/Vol]192 mg/iX98-995AsxateraxAdena Regional Medical CenterComment on above:TRIG ATP III CLASSIFICATION TRIG less than 150 mg/dL Normal TRIG 150-199 mg/dL Borderline high TRIG 200-500 mg/dL High TRIG greater than 500 mg/dL Very high Standard traceable to the Center for Disease Conrtrol and Prevention (CDC) test method.Ambulatory Visit Summaryon 33-19-6267Jvizduccyl Visit Summary 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1970 Visit Date:09/16/2021 Ambulatory Visit Instructions Your Diagnosis 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 Asymptomatic microscopic hematuria Recurrent UTI Urgency incontinence Anticoagulated Tests Performed Urnls Dip Stick Auto w/o Microscopy POC 35252 Your Care Team Attending Physician - Linden Villarreal MD, Mihir Delgadillo Primary Care Physician - LON IBRAHIM DO [...] multivitamin (Multi Vitamin+) omega-3 polyunsaturated fatty acids (Marion-3) Procedures Performed Cystourethroscopy and dilation of bladder [...] Follow Up with Linden Villarreal MD, Mihir Delgadillo, URO When: Comments: schedule Urodynamics Where: [facility] [address], [place] [phone] Medications What How Much When Why Instructions [...] or concerns Unchanged omega-3 polyunsaturated fatty acids (Marion-3) Contact prescribing physician if questions or concerns Test Results Urnls Dip Stick Auto w/o Microscopy POC 00996 (09/16/2021) Bilirubin Urine Dipstick - Negative Blood Urine Dipstick - 2+ Moderate Glucose Urine Dipstick - Negative Ketones Urine Dipstick - Negative Leukocytes Urine Dipstick - 3+ Large Nitrite Urine Dipstick - Negative Protein Urine Dipstick - Negative Specific [place] Urine Dipstick - 1.015 Urine Appearance Urine [...] of the urinary tract. The urinary tractincludes: ? The kidneys. ? The ureters. ? The bladder. ? The urethra. These organs make, store, and get (more content not included)...[facility] CenterPatient Educationon 44-13-4810Hdjhbpc EducationObstetrics and Gynecology Urinary Tract Infection, Adult A urinary tract infection (UTI) is an infection of any part of the urinary tract. The urinary tractincludes: ? The kidneys. ? The ureters. ? [...] these instructions at home: Medicines ? Take tewk-oaj-acjfdyr and prescription medicines only as told by your doctor. ? If you were prescribed an antibiotic medicine, take it as told by your doctor. Do not stop takingit even if you start to feel better. [...] 07/13/2008 Document Revised: 01/12/2019 Document Reviewed: 08/04/2018 katena Patient Education ? 2019 [employer].[facility] Urology Office/Clinic Noteon 10-81-3200Bxlqueq Office/Clinic NoteChief Complaint 2 month follow up with Cysto/UD This 51-year-old female urinary incontinence. Status post Patient on 07/21/2021. Since that time her symptoms are well since improved significantly. She stillhas urgency and stress incontinence with the use of 10 incontinence garments per day. He is here todiscuss treatment options. [facility] Staff Carrie is here today for a [...] The procedure risk and potential complications have beendiscussed with the patient. Informed consent has been obtained. Arranges will be made for urodynamics. Review of urinalysis shows positive leukocytes and blood. She is on anticoagulants and went to be planned constantly causing significant amount of irritation.. She has no symptoms of urinary tractinfection. 1. Postinfective urethral stricture in female (N35.12: Postinfective urethral stricture, not elsewhere classified, female) S/p Cysto/UD done 07/21/2021 without complications. PVR today is 151mL. Ordered: Measure Post Void residual urine and/or bladder capacity by US- non-imaging 85555 Urnls Dip Stick Auto w/o Microscopy POC 31509 Urology Procedure Order 2. 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 Pt states she wears briefs and changes them about 10x/day. Ordered: Measure Post Void residual urine and/or bladder capacity by US- non-imaging 68811 Urnls Dip Stick Auto w/o Microscopy POC 73950 Urology Procedure Order 3. Asymptomatic microscopic hematuria (R31.21: Asymptomatic microscopic hematuria) UA today shows moderate blood. Ordered: Measure Post Void residual urine and/or bladder capacity by US- non-imaging 03158 Urnls Dip Stick Auto w/o Microscopy POC 77963 Urology Procedure Order 4. Recurrent UTI (N39.0: Urinary tract infection, site not specified) Pt states she is unable to feel if she has dysuria or itching. Pt has been taking her Keflex 250mg qd. UA today shows large leuks. Ordered: Measure Post Void residual urine and/or bladder capacity by US- non-imaging 45855 Urnls Dip Stick Auto w/o Microscopy POC 62244 Urology Procedure Order 5. Urgency incontinence (N39.41: Urge incontinence) Pt c/o daytime freq, urgency, bladder spasms, nocturia x2, changes pads multiple times daily. Discussed w/ pt tx options, such as urodynamics. Will schedule Urodynamics. Ordered: Measure Post Void residual urine and/or bladder capacity by US- non-imaging 42052 Urnls Dip Stick Auto w/o Microscopy POC 81547 Urology Procedure Order (more content not included)...[facility] CenterComment on above: Result Comment: Electronically Signed By: Linden Villarreal MD, Mihir Delgadillo\.br\Date and Time Signed: 09/16/2208:04 EDT\.br\Electronically Co-Signed By: Loren Negro\.br\Date and Time Co-Signed: 09/16/21 08:54 EDTConsent for Procedure/Surgeryon 13-41-4637Zzwzbjh for Procedure/Surgery [id number]#1.00CD:127NoPremier HealthUrology Office/Clinic Noteon 41-65-1088Dupkper Office/Clinic NoteChief Complaint Patient in office for Cysto/UD HPI [...] urine The Urethra was dilated to: 28 [place] Islander with sounds. Specimens Removed: None Removal: Cystoscope [...] We will discuss treatment options on her nextvisit. These may include sling type bladder suspension and/or the possible use of Botox. Hopefully she will have some relief after the urethral dilation. We will reassess on her next visit. 1. Postinfective urethral stricture in female (N35.12: Postinfective urethral stricture, not elsewhere classified, female) cysto/ud done today Ordered: 35875 Cystourethroscop w/ calib and/or dilat of structure/stenosis w/w/o meatotomy / inj Dilation of urethral stricture, female, Initial 51263 2. 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 3. Asymptomatic microscopic hematuria (R31.21: Asymptomatic microscopic hematuria) previous UA showed large Ordered: 95468 Cystourethroscop w/ calib and/or dilat of structure/stenosis w/w/o meatotomy / inj Dilation of urethral stricture, female, Initial 48718 4. Recurrent UTI (N39.0: Urinary tract infection, site not specified) Pt stated she feels as if she currently has a UTI. Stated that her urine is a dark color and a little cloudy. Denies burning. no odor noted. has been taking her suppressive Keflex. Previous UA showed large blood and small AGUSTIN. Ordered: 67994 Cystourethroscop w/ calib and/or dilat of structure/stenosis w/w/o meatotomy / inj Dilation of urethral stricture, female, Initial 33418 5. Urgency incontinence (N39.41: Urge incontinence) c/o daytime freq, urgency, bladder spasms, nocturia x2, changes pads multiple times daily Tried oxybutynin 5mg but stopped it because she felt it made it difficult to void. Ordered: 00663 Cystourethroscop w/ calib and/or dilat of structure/stenosis w/w/o meatotomy / inj Dilation of urethral stri (more content not included)...[facility] CenterComment on above:Result Comment: Electronically Signed By: Mihir Cheatham Jr., MD\.br\Date and Time Signed: 07/23/2207:18 EDT\.br\Electronically Co-Signed By: Shirley Guevara MA\.br\Date and Time Co-Signed: 07/21/21 15:13 EDTAmbulatory Visit Summaryon 70-29-1464Zswglwywre Visit Summary 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1970 Visit Date:07/21/2021 [...] multivitamin (Multi Vitamin+) omega-3 polyunsaturated fatty acids (Marion-3) Procedures Performed Cystourethroscopy and dilation of bladder [...] Cheatham Jr., MD [facility] CenterPatient Educationon 98-62-2620Nloykre EducationObstetrics and Gynecology Overactive Bladder, Adult Overactive bladder [...] as stroke, dementia, Parkinson's disease, or multiple sclerosis(MS). ? Eat or drink things that irritate [...] pelvic floor muscles, which support your bladder. Toningthese muscles can help you control urination, even [...] weight loss methods that would work best foryou. ? Diet changes. This may include reducing [...] instructions ? Take ove (more content not included)...[facility] Urineon 48-94-0076Qehjxqjh identified Cx Nom (U)Microbiology PROCEDURE: Urine Culture [R1] SOURCE: U CleanCatch [...] or tested, I=Intermediate, ESBL=Extended spectrum beta-lactamase, R=Resistant, TFG=Thymidine-dependent strain, LUISA=Beta-lactamase positive, JAVIER=mcg/m;(mg/L), S*=Predicted susceptible interp, [...] Locations R1: This test was performed at: [facility], [address] [place] [address], [address] , , ZochfiQqxqgyOhioHealth Nelsonville Health CenterComment on above:Performed By: #### [id number] ####[facility] [address] [place], [place] [address]Sradyh Summary.on 36-43-8947Wmdvxa Summary. CD:[id number] PQ9BKwhX1TvhvRz [file] c2U6 (more content not included)...[facility] 37-83-9650Ljqutritx From: Kelly Dominguez MA To: EU - Clinical; Sent: 07/09/2021 13:51:55 EDT Show up: 07/11/2021 13:51:00 EDT Subject: Urine Culture Reminder/Recall Urine Culture addressed. JPNormBluffton HospitalAmbulatory Visit Summaryon 23-31-8492Pwildnbsao Visit Summary 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1970 Visit Date:07/09/2021 Ambulatory Visit Instructions Your Diagnosis Recurrent UTI Weak urine stream Urgency incontinence Microhematuria Tests Performed Urnls Dip Stick Auto w/o Microscopy POC 29651 Your Care Team Attending Physician - ANGELITA [...] multivitamin (Multi Vitamin+) omega-3 polyunsaturated fatty acids (Marion-3) [Image Removed: STOP]Stop taking these medications oxybutynin [...] ANGELITA PAEZ PA-C, URL When: Where: [address] [facility] [place] [address] Medications What How Much When Why Instructions New ciprofloxacin (Cipro 500 mg Tab) 1 Tablets By Mouth As Directed Take 1 tablet day before procedure, then 1 tablet day of procedure after procedure. Pickup at [facility]/pharmacy #6303 Unchanged acetaminophen Contact prescribing physician if questions [...] or concerns Unchanged omega-3 polyunsaturated fatty acids (Marion-3) Contact prescribing physician if questions or concerns Pharmacy Information [facility]/pharmacy #[id number]: [address] [place], [place] [id number] [phone] What How Much When Why Comments Stop Taking oxybutynin (oxybutynin 5 mg ER Tab) 1 Tablets By Mouth Every day Urge incontinence Urine frequency Recurrent UTI Microscopic hematuria Test Results Urnls Dip Stick Auto w/o Microscopy POC 02853 (07/09/2021) Bilirubin Urine Dipstick - Negative Blood Urine Dipstick - 3+ Large Glucose Urine Dipstick - Negative Ketones Urine Dipstick - Negative Leukocytes Urine Dipstick - 1+ Small Nitrite Urine Dipstick - Negative Protein Urine Dipstick - 1+ (30 mg/dl) Specific [place] Urine Dipstick - 1.015 Urine Appearance Urine [...] staph aureus) culture (more content not included)... [facility] CenterPatient Educationon 71-28-4785Cxewgek Education Obstetrics and Gynecology Overactive Bladder, Adult [...] as stroke, dementia, Parkinson's disease, or multiple sclerosis(MS). ? Eat or drink things that irritate [...] pelvic floor muscles, which support your bladder. Toningthese muscles can help you control urination, even [...] weight loss methods that would work best foryou. ? Diet changes. This may include reducing [...] instructions ? Take ove (more content not included)...[facility] Urology Office/Clinic Noteon 44-78-2387Xeorhdo Office/Clinic NoteChief Complaint 3 month f/u HPI Staff Carrie [...] Urnls Dip Stick Auto w/o Microscopy POC 49256 2. Weak urine stream (R39.12: Poor urinary [...] Contact Information MARYJANE PEARSON, ANGELITA Meade, URL [address] [place] [place] [address] Additional Instructions: Patient Education Overactive Bladder, Adult I, Janina Rosa, personally scribed for Angelita Paez PA-C on 07/09/2021 13:34:14. Electronicallysigned by marcelino Rosa on 07/09/2021 13:34:14. Documentation recorded by the marcelino Rosa accurately reflects the services(s) I performedand decisions made by me. Authenticated by Angelita [...] mg ER Tab, Oral, Daily Multi Vitamin+ Marion-3 oxybutynin 5 mg ER Tab, 5 mg= [...] History Cardiac arrhythmia: Mot (more content not included)...[facility] CenterComment on above:Result Comment: Electronically Signed By: ANGELITA PAEZ PA-C\.br\Date and Time Signed: 07/09/2212:49 EDT\.br\Electronically Co- Signed By: Janina Rosa\.br\Date and Time Co-Signed: 07/09/21 13:34 EDT Operative Reporton [id number] ReportMR#: [id number] # [facility] Pt. Name: Carrie Fletcher Room #: D5 [...] cholecystitis. The patient had clearance from the filter cloth maker and she was scheduled for DaVinci assisted [...] position and the right side up. The KissMyAdsinci robot was docked. The gallbladder was found [...] A Rehan Brown M.D. Date Dict: 03/14/2020/10:46 Hannah/Rehan Brown M.D. Date Trans: 03/14/2020 09:53 P/patriziao [id number]_[id number] cc: Lon Ibrahim M.D. [address] [address]JdxhvwLbzOhio Valley HospitalOperative Report MR#: [id number] 2 [facility] Pt. Name: Carrie Fletcher Room #: 4AB [id number] Discharge 03/13/2020 Date: Birthdate: 1970 OPERATIVE REPORT [...] cholecystitis. The patient had clearance from the filter cloth maker and she was scheduled for DaVinci assisted [...] position and the right side up. The KissMyAdsinci robot was docked. The gallbladder was found [...] Brown M.D. Date Trans: 03/14/2020 09:53 P/mmo [id number] cc: Lon Ibrahim M.D. [address] [address]PulfwmZlzOhio Valley HospitalBASIC METABOLIC PANELon 77-80-1347Abwevrq [Mass/Vol]9.0 mg/dLNormal8.6-10.3The [facility] TownshipComment on above:Order Comment: No: Do not add to previous drawPerformed By: #### 96413, 23156, 65190 #### [facility] [address] [place] [address], USAChloride [Moles/Vol]100 mmol/XGtyxal35-371Hmj [facility] TownshipComment on above:Order Comment: No: Do not add to previous drawPerformed By: #### 19446, 96671, 13639 #### [facility] [address] [place] [address], USACO2 [Moles/Vol]30 mmol/GTsqoya43-97Mhc [facility] TownshipComment on above:Order Comment: No: Do not add to previous draw Performed By: #### 68429, 86025, 70496 #### [facility] [address] [place] [address], USACreatinine [Mass/Vol]0.57 mg/dLLow0.60-1.20The [facility] TownshipComment on above:Order Comment: No: Do not add to previous drawPerformed By: #### 96634, 87042, 61910 #### [facility] [address] [place] [address], USAGFR/1.73 sq M.predicted among blacks MDRD (S/P/Bld) [Vol rate/Area]mL/min/{1.73_m2}Normal>60The [facility] Comment on above:Order Comment: No: Do not add to previous drawPerformed By: #### 92498, 29586, 17111 #### [facility] [address] [place] [address], USAGFR/1.73 sq M.predicted among non-blacks MDRD (S/P/Bld) [Vol rate/Area]mL/min/{1.73_m2}Normal>60The [facility] Comment on above:Order Comment: No: Do not add to previous drawPerformed By: #### 72003, 85254, 59452 #### [facility] [address] [place] [place] [address], USAGlucose [Mass/Vol]120 mg/yAAanu84-135Wlc [facility] TownshipComment on above:Order Comment: No: Do not add to previous drawPerformed By: #### 16792, 55435, 76646 #### [facility] [address] [place] [address], USAPotassium [Moles/Vol]3.8 mmol/LNormal3.5-5.1The [facility] TownshipComment on above:Order Comment: No: Do not add to previous drawPerformed By: #### 41254, 96664, 61746 #### [facility] [address] [place] [address], USASodium [Moles/Vol]134 mmol/UVne470-700Cxw [facility] TownshipComment on above:Order Comment: No: Do not add to previous drawPerformed By: #### 42015, 03732, 17779 #### [facility] [address] [place] [address], [facility]STITUTE AT LAS VEGASUrea nitrogen [Mass/Vol]15 mg/dLNormal7-25The [facility] TownshipComment on above:Order Comment: No: Do not add to previous drawPerformed By: #### 73172, 22402, 43941 #### [facility] [address] [place] [address], [place] [facility] INSTITUTE AT LAS VEGASCBC COMPLETE BLOOD COUNTon 40-90-0147Mfcscgbxboc distribution width (RBC) [Ratio]13.9 %Bsgaag58.5-15.0The [facility] TownshipComment on above:Order Comment: EvaluatePerformed By: #### 25796 ####[facility] [place] [address], [facility] Hematocrit (Bld) [Volume fraction]36.9 %Unhgep37.0-45.0The [facility] TownshipComment on above:Order Comment: EvaluatePerformed By: #### 78779 ####[facility] [place] [address], [facility] Hemoglobin (Bld) [Mass/Vol]11.7 g/dLLow12.0-15.0The [facility] TownshipComment on above:Order Comment: EvaluatePerformed By: #### 96617 ####[facility] [place] [address], [facility] MCH (RBC) [Entitic mass]29.8 seQnsohb18.0-33.0The [facility] TownshipComment on above:Order Comment: EvaluatePerformed By: #### 99366 ####[facility] [facility] [place] [address], [facility] MCHC (RBC) [Mass/Vol]31.7 g/dLLow32.0-35.0The [facility] TownshipComment on above:Order Comment: EvaluatePerformed By: #### 96644 ####[facility] [place] [address], [facility] MCV (RBC) [Entitic vol]94.1 kACkipib22.0-98.0The [facility] TownshipComment on above:Order Comment: EvaluatePerformed By: #### 62853 ####[facility] [place] [address], [facility] Nucleated RBC/100 WBC (Bld) [Ratio]0 %Normal0-0The [facility] TownshipComment on above:Order Comment: EvaluatePerformed By: #### 68420 ####[facility] [place] [address], [facility] PLAT CQP611 10*3/uNNpxjkz079-095Yfh [facility] TownshipComment on above:Order Comment: EvaluatePerformed By: #### 97195 ####[facility] [place] [address], [facility] INSTITUTE AT LAS VEGASRBC (Bld) [#/Vol] 3.92 10*6/uLNormal3.80-5.00The [facility] TownshipComment on above:Order Comment: EvaluatePerformed By: #### 31994 ####[facility] [place] [address].[place] [address], [facility] INSTITUTE AT LAS VEGASWBC (Bld) [#/Vol]7.94 10*3/uLNormal4.00-10.60The [facility] TownshipComment on above: Order Comment: EvaluatePerformed By: #### 15239 ####[facility] [place] [address].[place] [address], USALIVER BATTERYon 07-52-8066Krkfzvi [Mass/Vol]3.2 g/dLLow3.5-5.7The [facility] TownshipComment on above:Order Comment: No: Do not add to previous drawPerformed By: #### 98809, 54615, 66121 #### [facility] [address] [place] [address], USAALKALINE IBWGSW27 IU/EFtlxvj27-277Wkt [facility] TownshipComment on above:Order Comment: No: Do not add to previous draw Performed By: #### 59583, 99030, 43959 #### [facility] [address] [place] [address], USAALT [Catalytic activity/Vol]8 U/LNormal7-52The [facility] TownshipComment on above:Order Comment: No: Do not add to previous drawPerformed By: #### 78352, 82785, 01983 #### [facility] [address] [place] [address], USAAST [Catalytic activity/Vol]11 U/XJmi48-90Rfo [facility] TownshipComment on above:Order Comment: No: Do not add to previous drawPerformed By: #### 23725, 93370, 02001 #### [facility] [address] [place] [address], USABilirubin [Mass/Vol]0.5 mg/dLNormal0.3-1.0The [facility] TownshipComment on above:Order Comment: No: Do not add to previous drawPerformed By: #### 14715, 20052, 72313 #### [facility] [address] [place] [address], USABilirubin.direct [Mass/Vol]0.1 mg/dLNormal0.0-0.2The [facility] TownshipComment on above:Order Comment: No: Do not add to previous drawPerformed By: #### 86331, 20377, 00100 #### [facility] [address] [place] [address], USAProtein [Mass/Vol]6.1 g/dLNormal6.0-8.3The [facility] TownshipComment on above:Order Comment: No: Do not add to previous drawPerformed By: #### 94082, 74272, 42025 #### [facility] [address] [place] [address], USAMAGNESIUM BLOODon 38-50-1225Ydpmgyirk [Mass/Vol]1.4 mg/dL Low1.9-2.7The [facility] TownshipComment on above:Order Comment: No: Do not add to previous drawPerformed By: #### 04241, 96350, 95912 #### [facility] [address] [place] [address], USAPOC GLUCOSE LABon 42-00-1035Bxncvxj [Mass/Vol]81 mg/dL Vsehob51-736Lle [facility] TownshipComment on above:Performed By: #### 50874 #### [facility] [address] [facility] [place] [address], [facility]*SARS-CoV-2 COVID-19on 77-90-8613Osfvcmhe ReportNormMagruder HospitalComment on above:Result Comment: Specimen: OROPHARYNGEAL Collected: 03/09/2020 09:30 Status: Final Last Updated: 03/09/2020 14:46 COVID-19 (Final) Not Detected The [employer] SARS-CoV-2 assay is a real-time (rt) reverse transcriptase (RT) polymerase chain reaction (PCR) test intended for the [employer] system. The SARS-CoV-2 primer and probe sets are designed to detect RNA from SARS-CoV-2 in a nasopharyngeal ([employer]) or oropharyngeal (OP) swab from patients with signs and symptoms of infection who are suspected of COVID-19. Results are for the identification of SARS-CoV-2 RNA. The SARS-CoV-2 RNA is generally detectable in a nasopharyngeal or oropharyngeal swab during the acute phase of infection. The App[employer] SARS-CoV-2 assay is intended for use by qualified and trained clinical laboratory personnel specifically instructed and trained in the techniques of real-time PCR and in vitro diagnostic procedures. The [employer] SARS-CoV-2 assay is only for use under the Food and Drug Administration Emergency Use Authorization. Testing is limited to laboratories certified under the Clinical Laboratory Improvement Amendments of 1988 (CLIA), 42 U.S.C. 263a, to perform high complexity tests.Performed By: #### [id number] #### [facility] [address] [place] [address], [facility]*MRSA/MSSA DNA NASALon 02-23-2020*MRSA/MSSA DNA NASAL Clinical Report: (D) Specimen: NASAL SWAB Collected: 02/23/2020 11:12 Status: Final Last Updated: 02/23/2020 15:43 MSSA DNA (Final) Negative MRSA DNA (Final) Methicillin Resistant Staphylococcus aureus DNA DetectedNoUC HealthComment on above:Performed By: #### [id number] ####[facility] [place] [address], [facility] VE[facility]ASAPTTon 02-23-2020 aPTT Coag (Bld) [Time]27.7 yCxawpl71.0-35.0The [facility] TownshipComment on above:Result Comment: ALL RESULTS MUST BE INTERPRETED WITH RESPECT TO BLOOD DRAWING ARTIFACT OR DILUTION ERROR OF ANTICOAGULANT AT THE TIME OF SAMPLING. THE APTT SHOULD NOT BE USED TO MONITOR UNFRACTIONATED HEPARIN THERAPY, THIS LABORATORY NO LONGER HAS AN ESTABLISHED THERAPEUTIC RANGE BASED ON THE APTT. IT IS RECOMMENDED THAT THE UFH - HEPARIN ASSAY (ANTI-XA ACTIVITY) BE USED FOR THIS PURPOSE.Performed By: #### 72225, 22802 #### [facility] [address] [place] [address], USABASIC METABOLIC PANELon [id number] [Mass/Vol]9.8 mg/dLNormal8.6-10.3The [facility] TownshipComment on above: Performed By: #### 75620 #### [facility] [address] [place] [address], USAChloride [Moles/Vol]104 mmol/WMnncbw06-161Vcg [facility] TownshipComment on above:Performed By: #### 56393 #### [facility] [address] [place] [address], USACO2 [Moles/Vol]31 mmol/DTuzhsr91-26Kng [facility] TownshipComment on above:Performed By: #### 32403 #### [facility] [address] [place] [address], USACreatinine [Mass/Vol]0.62 mg/dLNormal0.60-1.20The [facility] TownshipComment on above:Performed By: #### 99572 #### [facility] [address] [place] [address], USAGFR/1.73 sq M.predicted among blacks MDRD (S/P/Bld) [Vol rate/Area]mL/min/{1.73_m2}Normal>60The [facility] Comment on above:Performed By: #### [id number] #### [facility] [address] [place] [address], USAGFR/1.73 sq M.predicted among non-blacks MDRD (S/P/Bld) [Vol rate/Area]mL/min/{1.73_m2}Normal>60The [facility] Comment on above:Performed By: #### 90541 #### [facility] [address] [place] [address], USAGlucose [Mass/Vol]88 mg/rICnjwpo55-315Fws [facility] TownshipComment on above:Performed By: #### 24670 #### [facility] [address] [place] [place] [address], USAPotassium [Moles/Vol]3.9 mmol/LNormal3.5-5.1The [facility] TownshipComment on above:Performed By: #### 82486 #### [facility] [address] [place] [address], USASodium [Moles/Vol]140 mmol/TQfnxlj392-870Gsx [facility] TownshipComment on above:Performed By: #### 55819 #### [facility] [address] [place] [address], USAUrea nitrogen [Mass/Vol]21 mg/dLNormal7-25The [facility] TownshipComment on above:Performed By: #### 69620 #### [facility] [address] [place] [address], [facility] L[facility] VEGASCBC W/DIFFon 62-07-9620WIH IMM GRANS0.0 10*3/uLNormal 0.0-0.2The [facility] TownshipComment on above:Performed By: #### 65729 ####[facility] [place] [address], [facility] AT L[facility]ASABS NEUTROPHILS3.5 10*3/uLNormal1.6-7.6The [facility] TownshipComment on above:Performed By: #### 62959 ####[facility] [place] [address], [facility] L[facility]ASBasophils (Bld) [#/Vol] 0.0 10*3/uLNormal0.0-0.2The [facility] TownshipComment on above: Performed By: #### 93391 ####[facility] [place] [address], [facility] L[facility] VE[facility]ASBasophils/100 WBC (Bld)0.3 %Normal0.0-1.0The [facility] TownshipComment on above:Performed By: #### 84110 ####[facility] [place] [address], [place] Eosinophils (Bld) [#/Vol]0.1 10*3/uLNormal0.0-0.5The [facility] TownshipComment on above:Performed By: #### 35086 ####[facility] [place] [address], USAEosinophils/100 WBC (Bld) 1.9 %Normal0.0-6.0The [facility] TownshipComment on above: Performed By: #### 82260 ####[facility] [place] [address], [facility] AT L[facility] VEGASErythrocyte distribution width (RBC) [Ratio]14.1 % Kwmhib48.5-15.0The [facility] TownshipComment on above:Performed By: #### [id number] ####[facility] [facility] [place] [address], [facility] AT L[facility] VEGASHematocrit (Bld) [Volume fraction]41.2 %Zoqyms82.0-45.0 The [facility] TownshipComment on above:Performed By: #### 35040 ####[facility] [place] [address], [facility] Hemoglobin (Bld) [Mass/Vol]12.9 g/kCOcztmf60.0-15.0The [facility] TownshipComment on above:Performed By: #### 54678 ####[facility] [facility] [place] [address], [facility] VE[facility]ASIMMATURE GRANS0.3 %Normal 0.0-1.0The [facility] TownshipComment on above:Performed By: #### 81390 ####[facility] [facility] [place] [address], [facility] L[facility] VE[facility]ASLymphocytes (Bld) [#/Vol]2.7 10*3/uLNormal1.2-4.0The [facility] TownshipComment on above:Performed By: #### 34334 ####[facility] [place] [address], [facility] L[facility] VE[facility]ASLymphocytes/100 WBC (Bld)40.1 %Iwtktw22.0-45.0The [facility] TownshipComment on above:Performed By: #### 87895 ####[facility] [facility] [place] [address], [facility] AT L[facility] VEGASMCH (RBC) [Entitic mass]29.3 pgNormal 27.0-33.0The [facility] TownshipComment on above:Performed By: #### 84148 ####[facility] [place] [address].[place] [address], [facility] OKLAHOMA CITYHC (RBC) [Mass/Vol]31.3 g/dLLow32.0-35.0The [facility] TownshipComment on above:Performed By: #### 68038 ####[facility] [place] [address].[place] [address], [facility] AT L[facility] VEGASMCV (RBC) [Entitic vol] 93.6 vFBdtdnq68.0-98.0The [facility] TownshipComment on above: Performed By: #### 36914 ####[address] [place] [address], [facility] AT L[facility] VE[facility]ASMonocytes (Bld) [#/Vol]0.4 10*3/uLNormal0.1-1.0The [facility] TownshipComment on above:Performed By: #### 32820 ####[address] MONOS5.3 %Normal5.0-12.0The [facility] TownshipComment on above: Performed By: #### 31532 ####[address] StreetNeutrophils/100 WBC (Bld)52.1 %Krwvwd60.0-72.0The [facility] TownshipComment on above:Performed By: #### 75070 ####[address] [place] [address], [facility] Nucleated RBC/100 WBC (Bld) [Ratio]0 %Normal0-0The [facility] TownshipComment on above:Performed By: #### 85816 ####[address] [place] [address], [facility]STITUTE AT L[facility] VEGASPLAT [id number] 10*3/hUVykucg354-971 The [facility] TownshipComment on above:Performed By: #### 84737 ####[facility] [place] [address], [facility] RBC (Bld) [#/Vol]4.40 10*6/uLNormal3.80-5.00The [facility] TownshipComment on above:Performed By: #### 15369 ####[facility] [place] [address], [facility] AT L[facility] VEGASWBC (Bld) [#/Vol]6.78 10*3/uL Normal4.00-10.60The [facility] TownshipComment on above: Performed By: #### 18917 ####[facility] [place] [address], [facility] VEGASPROTHROMBIN TIMEon 06-88-6923RGX Coag (PPP) [Relative time]1.10 {INR}Normal0.91-1.16The [facility] TownshipComment on above:Result Comment: ACCCP RECOMMENDED INR FOR WARFARIN THERAPY ------- CONDITION INR PROPHYLAXIS OF VENOUS THROMBOSIS 2-3 (HIGH-RISK SURGERY) TREATMENT OF VENOUS THROMBOSIS 2-3 TREATMENT OF PULMONARY EMBOLISM 2-3 PREVENTION OF SYSTEMIC EMBOLISM: 2-3 ACUTE MYOCARDIAL INFARCTION TISSUE HEART VALVES VALVULAR HEART DISEASE ATRIAL FIBRILLATION RECURRENT SYSTEMIC EMBOLISM MECHANICAL HEART VALVE 2.5-3.5 FROM: ORAL ANTICOAGULANTS. MECHANISM OF ACTION, CLINICAL EFFECTIVENESS, AND OPTIMAL THERAPEUTIC RANGE. CHEST 1995;108:231S-246S.Performed By: #### 96896, 90815 #### [facility] [address] [facility] [place] [address], USAPT Coag (PPP) [Time]14.3 qGyvvbv82.3-14.8The [facility] TownshipComment on above:Result Comment: ALL RESULTS MUST BE INTERPRETED WITH RESPECT TO BLOOD DRAWING ARTIFACT OR DILUTION ERROR OF ANTICOAGULANT AT THE TIME OF SAMPLING.Performed By: #### 89893, 28983 #### [facility] [address] [facility] [place] [address], USAT TUBE CHOLANGIOGRAMon 01-16-2020T TUBE CHOLANGIOGRAM [facility] Department of Radiology [address] [place] [address] Patient Name: 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 1970 [...] duodenum. Electronically signed: Nicole Jackson. Transcribed by: [email or web address], User Resident: Electronically Signed by: NICOLE JACKSON @ 01/16/2020 01:36 PMNSumma Health Akron CampusComment on above:Order Comment: EvaluateXR CERVICAL SPINE (2-3 VIEWS)on 19-24-3234JL CERVICAL SPINE (2-3 VIEWS)EXAMINATION: 3 XRAY VIEWS OF THE CERVICAL SPINE [...] Signed by: Anurag Mcqueen MD 12/28/18 Final resultNoAvita Health SystemExpected postoperative findings status post C4-5 ACDF.SocialEngineMADISON MEDICAL CENTERMAILEEXAMINATION: 3 XRAY VIEWS OF THE CERVICAL SPINE 12/28/2018 10:01 am COMPARISON: August 31, 2018 HISTORY: ORDERING SYSTEM PROVIDED HISTORY: S/P cervical spinal fusion TECHNOLOGIST PROVIDED HISTORY: s/p ACDF 08/30/18 Reason for Exam: Pt states cervical fusion August 2018, f/u Acuity: Unknown Type of Exam:Subsequent/Follow-up FINDINGS: Status post anterior discectomy and fusion at C4-5, unchanged in appearance. No acute osseous abnormality identified. Minimal anterolisthesis of C2. Advanced lower cervical facet arthropathy and mild multilevel disc space narrowing. No prevertebral soft tissue abnormality identified. Hardware fixation overlying the maxillary region and mandible again demonstrated. The lung apices are clear. SocialEngineMADISON MEDICAL CENTERAngelina Mhpn Incoming Radiant Results From [employer] - 12/28/2018 10:11 AM EST EXAMINATION: 3 [...] Expected postoperative findings status post C4-5 ACDF. [place], KYBacterial susceptibility panel by FRESNO HEART & SURGICAL HOSPITALyadiel 21-30-0714Jfcvkfcum susceptibility panel by Minimum inhibitory concentration (JAVIER) ORDERED BY: DR. SRIDHAR SOURCE: Urine Clean Catch COLLECTED: 11/27/18 08:42 ANTIBIOTICS AT MELISSA.: RECEIVED : 11/27/18 08:42 CALL doctor [id number] tel. , Culture, Urine FINAL 11/29/18 08:27 >100,000 CFU/ml Escherichia coli E. coli ANTIBIOTICS JAVIER Interp Amoxicillin/Clavulanate 4 S Ampicillin >=32 R Cefazolin <=4 S Ciprofloxacin >=4 R Gentamicin >=16 R Levofloxacin >=8 R Nitrofurantoin <=16 S Tobramycin 8 I Trimethoprim/Sulfamethoxazole <=20 S S=SUSCEPTIBLE I=INTERMEDIATE R=RESISTANT NormalCedar Springs Behavioral HospitalComment on above:Performed By: #### 82130-2 #### [facility] [address] [place] [address] Sgegdem, Urineon [id number], UrineORDER#: [id number] ORDERED BY: DR. SRIDHAR SOURCE: Urine Clean Catch COLLECTED: 11/27/18 08:42 ANTIBIOTICS AT MELISSA.: RECEIVED : 11/27/18 08:42 CALL doctor [id number] tel. , Culture, Urine INTERIM 11/28/18 08:05 >100,000 CFU/ml Escherichia coli Sensitivity to [facility] Memorial HospitalComment on above: Performed By: #### CXURN #### [facility] [address] [place] [address] Szwbpdjvrb, reflex to cultureon 98-93-8400Jfzquglvv Ql (U)Negative NormalNegativeCedar Springs Behavioral HospitalComment on above:Order Comment: CALL doctor [id number] tel. ,Performed By: #### UAR #### [facility] [address] [facility] [place] [address] Mxycwtc (U)TURBIDAbnormalClearMercEncompass Health Rehabilitation Hospital of GadsdenComment on above:Order Comment: CALL doctor L2725 tel. ,Performed By: #### UAR #### [facility] [address] [place] [address] Olutf (U)YellowNormalStraw/YellMerEating Recovery Center a Behavioral HospitalComment on above:Order Comment: CALL doctor L2725 tel. ,Performed By: #### UAR #### [facility] [address] [place] [address] Qznoain Ql (U)[facility] Comment on above:Order Comment: CALL doctor L2725 tel. ,Performed By: #### UAR #### [facility] [address] [place] [address] Gqvtcwtrxo Ql (U)[facility] Comment on above:Order Comment: CALL doctor L2725 tel. ,Performed By: #### UAR #### [facility] [address] [place] [address] Jxscbpi Ql (U)[facility] Comment on above:Order Comment: CALL doctor L2725 tel. ,Performed By: #### UAR #### [facility] [address] [place] [address] Zyojxuklp esterase Test strip Ql (U)[facility] CenterComment on above:Order Comment: CALL doctor L2725 tel. , Performed By: #### UAR #### [facility] [address] [place] [address] Yhtmefs Ql (U)[facility] Comment on above:Order Comment: CALL doctor L2725 tel. ,Performed By: #### UAR #### [facility] [address] [place] [address] cO (U)8.0 [pH]Normal5.0-9.0[facility] HospitalComment on above:Order Comment: CALL doctor L2725 tel. ,Performed By: #### UAR #### [facility] [address] [place] [address] Eqwstlm Ql (U)30 mg/dLEastern Niagara Hospital, [facility] Comment on above:Order Comment: CALL doctor L2725 tel. ,Performed By: #### UAR #### [facility] [address] [place] [address] Otulouhp gravity (U) [Rel density]1.489Ovhotc2.005-1.03[facility]al HospitalComment on above:Order Comment: CALL doctor L2725 tel. , Performed By: #### UAR #### [facility] [address] [place] [address] Apngf Reflexed to [facility] Comment on above:Order Comment: CALL doctor L2725 tel. ,Performed By: #### UAR #### [facility] [address] [place] [address] Saexzgfvjqeq Qn (U)1.0 {Marcela'U}/dLNormal< 2.0[facility] HospitalComment on above:Order Comment: CALL doctor L2725 tel. ,Performed By: #### UAR #### [facility] [address] [place] [address] Nubrf Microscopicon 37-24-6227SPO (U) [#/Vol]50-62Cqfumyqc0-4MxmxcBanner Fort Collins Medical CenterComment on above:Order Comment: CALL doctor L2725 tel. , Performed By: #### UMIC #### [facility] [address] [place] [address] Bitdralq LM.HPF (Urine sed) [#/Area][facility] a Behavioral HospitalComment on above:Order Comment: CALL doctor L2725 tel. ,Performed By: #### UMIC #### [facility] [address] [place] [address] Zjcox Epithelial Cells Zeuq8-0Rayyqi2-3Oifmn[address] Comment on above:Order Comment: CALL doctor L2725 tel. ,Performed By: #### UMIC #### [facility] [address] [place] [address] Caefn Hyaline Casts Jvml42-42Kjgdpe3-8Ows[address] [place] [address] Comment on above:Order Comment: CALL doctor L2725 tel. ,Performed By: #### UMIC #### [facility] [address] [place] [address] Heggl WBC Auto>100Critically high0-5[facility] Comment on above:Order Comment: CALL doctor L2725 tel. ,Performed By: #### UMIC #### [facility] [address] [place] [address] Apomr Metab w/rfx MGon 09-06-2018(cont.)NormalOhiohealth Grant Medical CenterComment on above:Result Comment: Average GFR for 40-49 years old: 99 mL/min/1.73sq m Chronic Kidney Disease: <60 mL/min/1.73sq m Kidney failure: <15 mL/min/1.73sq m eGFR calculated using average adult body mass. Additional eGFR calculator available at: http://www.[employer]/multiple_crcl_2012.htmPerformed By: #### BMPX, CDP ####[facility] [address] [place] [address] Lab Director: Felipe Randall MDAnion gap [Moles/Vol]8 mmol/LLow9-17Ohio[facility] Grant Medical CenterComment on above:Performed By: #### BMPX, CDP ####[facility] [address]znvvqjcygi[address] [place], [place] [phone] Director: Felipe Randall MDCalcium [Mass/Vol]8.8 mg/dLNormal8.6-10.4[facility] Grant Medical CenterComment on above:Performed By: #### BMPX, CDP ####[facility] [address] [place] [address] Lab Director: Felipe Randall MDChloride [Moles/Vol]100 mmol/CEwsgpr41-697XubafOhiohealth Grant Medical CenterComment on above:Performed By: #### BMPX, CDP ####[facility] [address]fxrlcjt[address] [place] [phone] Director: Felipe Randall MDCO2 [Moles/Vol]29 mmol/IQeqoxw20-82JbrpkOhiohealth Grant Medical CenterComment on above:Performed By: #### BMPX, CDP ####[facility] [address]wp[address] [place] [address] Lab Director: Felipe Randall MDCreatinine [Mass/Vol]0.54 mg/dLNormal0.50-0.90[facility] Grant Medical CenterComment on above:Performed By: #### BMPX, CDP ####[facility] [address] [place] [address] [phone] Director: Felipe Randall MDGFR, Amer>60Normal>60[facility] Grant Medical CenterComment on above:Performed By: #### BMPX, CDP ####[facility] [address] [place] [address])[phone] Director: RILEY Nails,non Amer>60 Normal>60[facility] Grant Medical CenterComment on above:Performed By: #### BMPX, CDP ####[facility] [address] [place], [place] [phone])[phone] Director: Felipe Randall MDGlucose [Mass/Vol]83 mg/qTOefblf66-10MbshmMonrovia Community HospitalComment on above:Performed By: #### BMPX, CDP ####[facility] [address] [place], [place] [address])[phone] Director: Felipe Randall, MDPotassium [Moles/Vol]3.7 mmol/LNormal3.7-5.3MMonrovia Community HospitalComment on above:Performed By: #### BMPX, CDP ####[facility] [address] [place], [place] [phone] Director: Felipe Randall MDSodium [Moles/Vol]137 mmol/BAvtuug270-307RjtriOhiohealth Grant Medical CenterComment on above:Performed By: #### BMPX, CDP ####[facility] [address] [place], [place] [phone] Director: Felipe Randall MDUrea nitrogen [Mass/Vol]9 mg/dLNormal6-20[facility] Medical CenterComment on above:Performed By: #### BMPX, CDP ####[facility] [address] [place] [phone] Director: GLEN NailsN/CRE RatioNOT REPORTEDNormal9-20[facility] Grant Medical CenterComment on above:Performed By: #### BMPX, CDP ####[facility] [address] [place] [address] Lab Director: MARGO Nailstaging:NOT REPORTEDNormalOhiohealth Grant Medical CenterComment on above:Performed By: #### BMPX, CDP ####[facility] [address] [place] [address] Lab Director: KRYSTAL Nails with Diffon 09-06-2018 Abs. Basophil0.03 k/uLNormal0.00-0.20[facility] Medical CenterComment on above:Performed By: #### BMPX, CDP ####[facility] [address] [place] [address] Lab Director: Maddison Nails.Imm.Granulocyte0.04 k/uLNormal0.00-0.30[facility] Grant Medical CenterComment on above:Performed By: #### BMPX, CDP ####[facility] [address]ezp[address] [place] [address] Lab Director: Maddison Nails.Neutrophil (Seg)3.48 k/uL Normal1.50-8.10[facility] Grant Medical CenterComment on above:Performed By: #### BMPX, CDP ####[facility] [address] [place] [phone] Director: Felipe Randall MDBasophils/100 WBC (Bld)1 %Normal0-2MMonrovia Community HospitalComment on above:Performed By: #### BMPX, CDP ####[facility] [address] [place] [address] [phone] Director: Felipe Randall MDEosinophils (Bld) [#/Vol]0.16 10*3/uLNormal0.00-0.44[facility] Grant Medical CenterComment on above:Performed By: #### BMPX, CDP ####[facility] [address] [place] [address] Lab Director: COLLETTE Nailsosinophils/100 WBC (Bld)3 %Normal1-4[facility] Comment on above:Performed By: #### BMPX, CDP ####[facility] [address] [place] [address] [phone] Director: Felipe Randall MDErythrocyte distribution width (RBC) [Ratio]13.2 %Feilxu73.8-14.4[facility] Grant Medical CenterComment on above:Performed By: #### BMPX, CDP ####[facility] [address] [place] [address] Lab Director: Felipe Randall MD Hematocrit (Bld) [Volume fraction]35.5 %Low36.3-47.1MMonrovia Community HospitalComment on above:Performed By: #### BMPX, CDP ####[facility] [address]wf[address]digsq[address] [place], [place] [phone] Director: Felipe Randall MD Hemoglobin (Bld) [Mass/Vol]11.6 g/dLLow11.9-15.1MMonrovia Community Hospital Comment on above:Performed By: #### BMPX, CDP ####[facility] [address] [place] [address] [phone] Director: Felipe Randall MDImmature granulocytes (Bld) [#/Vol]1 %Uafi3HoeuuOhiohealth Grant Medical CenterComment on above:Performed By: #### BMPX, CDP ####[facility] [address] [place], [place] [phone] Director: Felipe Randall MDLymphocytes (Bld) [#/Vol] 2.34 10*3/uLNormal1.10-3.70Ohio[facility] Grant Medical CenterComment on above: Performed By: #### BMPX, CDP ####[facility] [address] [place], [place] [phone] Director: Linda Nailsmphocytes/100 WBC (Bld)36 % Nazxej37-98WkddrOhiohealth Grant Medical CenterComment on above:Performed By: #### BMPX, CDP ####[facility] [address] [place], [place] [phone] Director: ERIC NailsCH (RBC) [Entitic mass]29.2 oqKcluvi12.2-33.5Ohio[facility] Grant Medical CenterComment on above:Performed By: #### BMPX, CDP ####[facility] [address] [place], [place] [phone] Director: ERIC NailsCHC (RBC) [Mass/Vol]32.7 g/gKIjtylc48.4-34.8[facility] Grant Medical CenterComment on above:Performed By: #### BMPX, CDP ####[facility] [address]sh[address]ju[address] [place], [place] [phone] Director: ERIC NailsCV (RBC) [Entitic vol]89.4 cGNfbodk19.6-102.9[facility] Grant Medical CenterComment on above:Performed By: #### BMPX, CDP ####[facility] Gopykiwblxxf0547 [place], [place] [phone] Director: Felipe Madoff, MDMonocytes (Bld) [#/Vol]0.37 10*3/uLNormal0.10-1.20[facility] CenterComment on above:Performed By: #### BMPX, CDP ####[facility] Ljlfwreomsdb9598 [place] [address] Lab Director: ERIC Nailsonocytes/100 WBC (Bld)6 %Normal3-12[facility] Comment on above:Performed By: #### BMPX, CDP ####[facility] [address] [place] [address] Lab Director: Felipe Randall MDNeutrophil (Seg) 54 %Lzgaep36-37OfbbvOhiohealth Grant Medical CenterComment on above:Performed By: #### BMPX, CDP ####[facility] [place] T[address] [place] [address] [phone] Director: Felipe Randall MDNRBC Automated0.0 per 100 WBCNormal0.0[facility] Grant Medical CenterComment on above:Performed By: #### BMPX, CDP ####[facility] [place] [address] [place] [address] Lab Director: JENNIFER Nailslatelet mean volume (Bld) [Entitic vol]10.5 fLNormal8.1-13.5 [facility] CenterComment on above:Performed By: #### BMPX, CDP ####[facility] [address] [place] [address] Lab Director: Felipe Randall MDPlatelets (Bld) [#/Vol]220 10*3/pXQxfrvq715-353SxfqdMarian Regional Medical CenterComment on above:Performed By: #### BMPX, CDP ####[facility] Oagzfixgmbfj6526 [place] [address] Lab Director: Felipe Randall MDRBC (Bld) [#/Vol]3.97 10*6/uLNormal3.95-5.11[facility] CenterComment on above:Performed By: #### BMPX, CDP ####[facility] Hyqoiccpxkof8627 [place] [address] Lab Director: EVERETTE Nails (Bld) [#/Vol]6.4 10*3/uLNormal3.5-11.3[facility] Medical CenterComment on above:Performed By: #### BMPX, CDP ####[facility] Fnjejwzojwuf0932 [place], [place] [phone] Director: César Nails Diff PerformedNOT [facility] Harbor HospitalComment on above:Performed By: #### BMPX, CDP ####[facility] Wnabijqdkdme9750 [place], [place] [phone] Director: Olvin Nails (Bld) [#/Vol]NOT REPORTEDNoal [facility] Medical CenterComment on above:Performed By: #### BMPX, CDP ####[facility] Luudzbjkohwr0270 [place], [place] [phone] Director: CELESTE Nails morphology finding Nom (Bld)NOT REPORTEDKettering Health MiamisburgComment on above:Performed By: #### BMPX, CDP ####[facility] Lxjripknhrfh6528 [place], [place] [phone] Director: EVERETTE Nails MorphologyNOT REPORTEDKettering Health Miamisburg Comment on above:Performed By: #### BMPX, CDP ####[facility] Imnhtxezlabn6940 [place], [place] [phone])[phone] Director: Jeffy Nails 04-93-2241uHYO Coag (Bld) [Time]56.3 sHigh20.5-30.5[facility] Medical CenterComment on above:Performed By: #### PTT ####[facility] Itynsdgpcihz4253 [place] [address] Lab Director: Corie Nails Coag (Bld) [Time]84.6 sHigh20.5-30.5[facility] Medical CenterComment on above: Performed By: #### PTT ####[facility] Wsptowdihlqb8230 [place] [address] Lab Director: Corie Nails Coag (Bld) [Time]78.1 s High20.5-30.5[facility] Grant Medical CenterComment on above:Performed By: #### PTT ####[facility] Nztppuzcwvsy6271 [place], [place] [address])[phone] Director: Charan Nails Metab w/rfx MGon 09-05-2018(cont.)NormalOhiohealth Grant Medical CenterComment on above:Result Comment: Average GFR for 40-49 years old: 99 mL/min/1.73sq m Chronic Kidney Disease: <60 mL/min/1.73sq m Kidney failure: <15 mL/min/1.73sq m eGFR calculated using average adult body mass. Additional eGFR calculator available at: http://www.ClearCare.com/multiple_crcl_2012.htmPerformed By: #### SINAN, BMPX ####[facility] Bajrllfqprih7791 [place], [place] [address])[phone] Director: Balwinder Nails gap [Moles/Vol]12 mmol/LNormal9-17[facility] Medical CenterComment on above:Performed By: #### CDP, BMPX ####[facility] Rugfmfuhdvzn9531 [place] [address] Lab Director: GREGORY Nailsalcium [Mass/Vol]8.7 mg/dLNormal8.6-10.4[facility] Medical CenterComment on above:Performed By: #### CDP, BMPX ####[facility] Whnlrausilmq4810 [place] [address] Lab Director: Felipe Randall MDChloride [Moles/Vol]104 mmol/SRcjviq16-754DeyioOhiohealth Grant Medical CenterComment on above:Performed By: #### CDP, BMPX ####[facility] Vytxazymkgku2926 [place] [address] Lab Director: Felipe Randall MDCO2 [Moles/Vol]25 mmol/L Nvxlot82-38WkvymOhiohealth Grant Medical CenterComment on above:Performed By: #### CDP, BMPX ####[facility] Afijlurixhfy7858 [place], [place] [phone] Director: GREGORY Nailsreatinine [Mass/Vol]0.47 mg/dLLow0.50-0.90[facility] Medical CenterComment on above:Performed By: #### CDP, BMPX ####[facility] [address]zz[address]rvr[address] [place] [address] [phone] Director: Felipe Randall MDGFR, Amer>60Normal>60[facility] Medical CenterComment on above:Performed By: #### CDP, BMPX ####[facility] Efsgbfrtjvco4232 [place], [place] [phone])[phone] Director: Felipe Randall MDGFR,non Amer>60 Normal>60[facility] Medical CenterComment on above:Performed By: #### CDP, BMPX ####[facility] Ihzjqdydrzun9517 [place], [place] [phone])[phone] Director: Felipe Randall MDGlucose [Mass/Vol]91 mg/fUCsvvnu72-01DdiefMonrovia Community HospitalComment on above:Performed By: #### CDP, BMPX ####[facility] Ubxdswjxhgwg5286 [place], [place] [phone] Director: Felipe Randall MDPotassium [Moles/Vol]3.9 mmol/LNormal3.7-5.3[facility] Medical CenterComment on above:Performed By: #### CDP, BMPX ####[facility] Slvnaayepvem8964 [place], [place] [phone])[phone] Director: MARGO Nailsodium [Moles/Vol]141 mmol/EZjnbfh405-159ChvdaOhiohealth Grant Medical CenterComment on above:Performed By: #### CDP, BMPX ####[facility] Biuoozbcxotz4580 [place], [place] [phone] Director: Felipe Randall MDUrea nitrogen [Mass/Vol]8 mg/dLNormal6-20[facility] CenterComment on above:Performed By: #### CDP, BMPX ####[facility] Kqaupvnocivb9710 [place], [place] [phone] Director: Felipe Randall MDBUN/CRE RatioNOT REPORTEDNormal9-20[facility] CenterComment on above:Performed By: #### CDP, BMPX ####[facility] Wenhxupqcwpb1535 [place], [place] [phone] Director: MARGO Nailstaging:NOT REPORTEDNormalOhiohealth Grant Medical CenterComment on above:Performed By: #### CDP, BMPX ####[facility] Sfrhvcdtiwig2755 [place], [place] [phone])[phone] Director: Felipe Randall [facility] with Diffon 09-05-2018 Abs. Basophil0.03 k/uLNormal0.00-0.20[facility] Medical CenterComment on above:Performed By: #### CDP, BMPX ####[facility] Tesvrjvkgmey2629 [place], [place] [phone] Director: Maddison Nails.Imm.Granulocyte<0.03 Normal0.00-0.30[facility] Medical CenterComment on above:Performed By: #### CDP, BMPX ####[facility] Wpkverpvkugr6813 [place], [place] [phone] Director: Maddison Nails.Neutrophil (Seg)3.98 k/uLNormal1.50-8.10 [facility] CenterComment on above:Performed By: #### CDP, BMPX ####[facility] [place] [address]fx[address]qmhnl[address] [place] [address] [phone] Director: Felipe Randall MDBasophils/100 WBC (Bld)0 %Normal0-2MercFrench Hospital Medical CenterComment on above:Performed By: #### CDP, BMPX ####[facility] [place] [address]fgiljxq[address] [place] [address] [phone] Director: Felipe Randall MD Eosinophils (Bld) [#/Vol]0.25 10*3/uLNormal0.00-0.44[facility] Medical CenterComment on above:Performed By: #### SINAN, BMPX ####[address] [phone] Director: Felipe Randall MD Eosinophils/100 WBC (Bld)3 %Normal1-4[facility] Medical CenterComment on above:Performed By: #### SINAN, BMPX ####[facility] [place] Jurshapcqneb[address] [place] [address] [phone] Director: Felipe Randall MDErythrocyte distribution width (RBC) [Ratio]13.2 %Vskrlo16.8-14.4[facility] Medical CenterComment on above:Performed By: #### CDP, BMPX ####[facility] Qxjhislpzrst6292 [place], [place] [phone] Director: Felipe Randall MDHematocrit (Bld) [Volume fraction]36.9 %Xxwibo24.3-47.1MMonrovia Community HospitalComment on above:Performed By: #### CDP, BMPX ####[facility] [place] Sakdpuddnnxr[address] [place] [address] [phone] Director: Felipe Randall MDHemoglobin (Bld) [Mass/Vol]11.3 g/dLLow11.9-15.1MMonrovia Community HospitalComment on above: Performed By: #### CDP, BMPX ####[facility] Ugnbpslpully[address] [place] [address] [phone] Director: Felipe Randall MDImmature granulocytes (Bld) [#/Vol]0 %Dilxpb8GjpbxOhiohealth Grant Medical CenterComment on above:Performed By: #### CDP, BMPX ####[facility] [address]yzqhllxj[address] [place] [address] [phone] Director: Felipe Randall MDLymphocytes (Bld) [#/Vol]2.62 10*3/uLNormal 1.10-3.70[facility] CenterComment on above:Performed By: #### SINAN, BMPX ####[facility] [place] Ulseyugymldo[address] [place] [address] [phone] Director: Linda Nailsmphocytes/100 WBC (Bld)36 %Sdixvt11-20FebgcOhiohealth Grant Medical CenterComment on above:Performed By: #### CDP, BMPX ####[facility] [address]ssdxlaevzp[address] [place] [address] [phone] Director: ERIC NailsCH (RBC) [Entitic mass]28.6 lrKxkhds73.2-33.5[facility] Medical CenterComment on above:Performed By: #### CDP, BMPX ####[facility] Osqmaxrjbnck4755 [place], [place] [phone] Director: ERIC NailsCHC (RBC) [Mass/Vol]30.6 g/rQKbedzj35.4-34.8[facility] Medical CenterComment on above:Performed By: #### CDP, BMPX ####[facility] [address]zbl[address] [place] [address] [phone] Director: Felipe Madoff, MDMCV (RBC) [Entitic vol]93.4 qRWznhbw93.6-102.9[facility] Medical CenterComment on above:Performed By: #### CDP, BMPX ####[facility] [place] X[address]ymjxj[address] [place], [place] [phone] Director: ERIC Nailsonocytes (Bld) [#/Vol]0.45 10*3/uLNormal0.10-1.20[facility] Medical CenterComment on above: Performed By: #### CDP, BMPX ####[facility] [place] Tfsrvbitoffz[address] [place], [place] [phone])[phone] Director: ERIC Nailsonocytes/100 WBC (Bld)6 % Normal3-12[facility] Medical CenterComment on above:Performed By: #### CDP, BMPX ####[place], [place] [address])[phone] Director: Felipe Randall MDNeutrophil (Seg)55 %Rwtohn36-10HuelmOhiohealth Grant Medical CenterComment on above:Performed By: #### CDP, BMPX ####[facility] [place] Mvujsoydhxkt[address] [place], [place] [phone] Director: Felipe Randall MDNRBC Automated0.0 per 100 WBCNormal0.0[facility] Comment on above:Performed By: #### CDP, BMPX ####[facility] Ewuycqjyegui98[address] [place], [place] [phone])[phone] Director: JENNIFER Nailslatelet mean volume (Bld) [Entitic vol]10.4 fLNormal8.1-13.5[facility] Comment on above:Performed By: #### CDP, BMPX ####[facility] [address]br[address] [place] [address] [phone] Director: JENNIFER Nailslatelets (Bld) [#/Vol]258 10*3/bSKuneqx717-283MbwslOhiohealth Grant Medical CenterComment on above: Performed By: #### CDP, BMPX ####[facility] Fobtcjlmunfl6705 [place] [address] Lab Director: BARRETT NailsBC (Bld) [#/Vol]3.95 10*6/uL Normal3.95-5.11[facility] Medical CenterComment on above:Performed By: #### CDP, BMPX ####[facility] Woiugqmpmywy7772 [place] [phone] Director: EVERETTE Nails (Bld) [#/Vol]7.4 10*3/uLNormal3.5-11.3 [facility] CenterComment on above:Performed By: #### CDP, BMPX ####[facility] Hpmsfezwqutq0592 [place] [address] Lab Director: César Nails Diff PerformedNOT REPORTEDNormalMerMarian Regional Medical CenterComment on above:Performed By: #### CDP, BMPX ####[facility] Xyjyehxabfkq9836 [place] [address] Lab Director: JENNIFER Nailslatelets (Bld) [#/Vol]NOT REPORTEDNormalOhiohealth Grant Medical CenterComment on above:Performed By: #### CDP, BMPX ####[facility] Didfxwugbizj1993 [place] [address] Lab Director: CELESTE Nails morphology finding Nom (Bld)NOT REPORTEDNormalOhiohealth Grant Medical CenterComment on above: Performed By: #### CDP, BMPX ####[facility] Ixxkimzmzrsl3354 [place] [address] Lab Director: EVERETTE Nails MorphologyNOT REPORTED NormalOhiohealth Grant Medical CenterComment on above:Performed By: #### CDP, BMPX ####[facility] Fugcwxuzrfnx9493 [place] [address] Lab D irector: Jeffy Nails 06-28-3812nTJL Coag (Bld) [Time]53.8 sHigh 20.5-30.5[facility] Medical CenterComment on above:Performed By: #### CDP, PTT, BMPX ####[address] [address] Lab Director: Corie Nails Coag (Bld) [Time]66.8 s High20.5-30.5[facility] Medical CenterComment on above:Performed By: #### NIKI UMICAO #### [address] [address] Commodity Buyer: Charan Nails Metab w/rfx MGon 09-04-2018(cont.)Normal [facility] Medical CenterComment on above:Result Comment: Average GFR for 40-49 years old: 99 mL/min/1.73sq m Chronic Kidney Disease: <60 mL/min/1.73sq m Kidney failure: <15 mL/min/1.73sq m eGFR calculated using average adult body mass. Additional eGFR calculator available at: http://www.[employer].Gnzo/multiple_crcl_2012.htmPerformed By: #### CDP, PTT, BMPX ####[facility] [place] [address]zmnt[address] [place] [address] Lab Director: Felipe Randall MDAniyadiel gap [Moles/Vol]11 mmol/LNormal9-17[facility] CenterComment on above:Performed By: #### CDP, PTT, BMPX ####[facility] [place] [address]fsbvnevsphc[address] [place] [address] Lab Director: Felipe Randall MDCalcium [Mass/Vol]8.5 mg/dLLow8.6-10.4[facility] Comment on above:Performed By: #### CDP, PTT, BMPX ####[facility] Birvswikwxcc3141 [place], [place] [phone] Director: GREGORY Nailshloride [Moles/Vol]104 mmol/JXyvuxa21-504XlpyrOhiohealth Grant Medical CenterComment on above:Performed By: #### CDP, PTT, BMPX ####[facility] Jmqgzvzprqsf3660 [place] [address] Lab Director: Felipe Randall MDCO2 [Moles/Vol] 29 mmol/HFtnbpt57-89UqxsaOhiohealth Grant Medical CenterComment on above:Performed By: #### CDP, PTT, BMPX ####[facility] Hspetmyuouhg6076 [place] [address] Lab Director: GREGORY Nailsreatinine [Mass/Vol]0.51 mg/dLNormal0.50-0.90[facility] Medical CenterComment on above:Performed By: #### CDP, PTT, BMPX ####[facility] Taeufajnrysc6756 [place], [place] [phone] Director: Felipe Randall MDGFR, Amer>60Normal>60 [facility] CenterComment on above:Performed By: #### CDP, PTT, BMPX ####[facility] Mctkvcmgokbc9691 [place] [address] Lab Director: Felipe Randall MDGFR,non Amer>60Normal>60[facility] CenterComment on above:Performed By: #### CDP, PTT, BMPX ####[facility] Sjxvioclkqqc7685 [place] [address] Lab Director: Felipe Randall MDGlucose [Mass/Vol]89 mg/eUGqbtzv49-83TbuzvMonrovia Community Hospital Comment on above:Performed By: #### CDP, PTT, BMPX ####[facility] Wvrjclfrhqul3036 [place] [address] Lab Director: JENNIFER Nailsotassium [Moles/Vol]3.6 mmol/LLow3.7-5.3[facility]cla Medical CenterComment on above:Performed By: #### CDP, PTT, BMPX ####[facility] Bgswycshchwg1494 [place], [place] [phone] Director: MARGO Nailsodium [Moles/Vol]144 mmol/LIbsqhm982-060YmeisOhiohealth Grant Medical CenterComment on above:Performed By: #### CDP, PTT, BMPX ####[facility] Fqwcztqpgxzm8492 [place] [address] Lab Director: Tena Nails nitrogen [Mass/Vol]8 mg/dLNormal6-20[facility] CenterComment on above: Performed By: #### CDP, PTT, BMPX ####[facility] Dbrxnfdcetge7432 [place], [place] [phone] Director: GLEN NailsN/CRE RatioNOT REPORTED Normal9-20[facility] CenterComment on above:Performed By: #### CDP, PTT, BMPX ####[facility] Hztfszeyussz8789 [place] [address] Lab Director: MARGO Nailstaging:NOT REPORTEDNormal [facility] CenterComment on above:Performed By: #### CDP, PTT, BMPX ####[facility] Vpkzkgawicxu3915 [place] [address] Lab Director: KRYSTAL Nails with Diffon 02-16-2525Pvq. Basophil0.03 k/uL Normal0.00-0.20[facility] CenterComment on above:Performed By: #### UA UMICAO #### [facility] [address] [place] [address] Commodity Buyer: Maddison Nails.Imm.Granulocyte0.04 k/uLNormal0.00-0.30[facility] Medical CenterComment on above:Performed By: #### TAYLOR PRINCE #### [place] [address] Commodity Buyer: Maddison Nails.Neutrophil (Seg)5.49 k/uLNormal1.50-8.10 [facility] CenterComment on above:Performed By: #### TAYLOR PRINCE #### [place] [address] Commodity Buyer: Felipe Randall MDBasophils/100 WBC (Bld)0 %Normal0-2MMonrovia Community HospitalComment on above:Performed By: #### TAYLOR PRINCE #### [place] [address] Commodity Buyer: Felipe Randall MDEosinophils (Bld) [#/Vol]0.27 10*3/uLNormal 0.00-0.44[facility] CenterComment on above:Performed By: #### TAYLOR PRINCE #### [place] [address] Commodity Buyer: Felipe Randall MDEosinophils/100 WBC (Bld)3 %Normal1-4[facility] CenterComment on above:Performed By: #### TAYLOR PRINCE #### [place] [address] Commodity Buyer: Felipe Randall MDErythrocyte distribution width (RBC) [Ratio]13.2 %Quupnc16.8-14.4[facility] CenterComment on above:Performed By: #### TAYLOR PRINCE #### [address] [address] Commodity Buyer: Felipe Randall MDHematocrit (Bld) [Volume fraction]38.6 %Normal 36.3-47.1MMonrovia Community HospitalComment on above:Performed By: #### TAYLOR PRINCE #### [facility] [address] [place] [address] Commodity Buyer: Felipe Randall MDHemoglobin (Bld) [Mass/Vol]12.3 g/dLNormal 11.9-15.1MMonrovia Community HospitalComment on above:Performed By: #### TAYLOR PRINCE #### [address] [address] Commodity Buyer: Felipe Randall MDImmature granulocytes (Bld) [#/Vol]1 %Mpio8UbdajOhiohealth Grant Medical CenterComment on above:Performed By: #### TAYLOR PRINCE #### [address] [address] Commodity Buyer: Felipe Randall MDLymphocytes (Bld) [#/Vol]2.08 10*3/uLNormal 1.10-3.70[facility] CenterComment on above:Performed By: #### TAYLOR PRINCE #### [address] [address] Commodity Buyer: Linda Nailsmphocytes/100 WBC (Bld)25 %Gzkiib88-88OknuhOhiohealth Grant Medical CenterComment on above:Performed By: #### TAYLOR PRINCE #### [address] [address] Commodity Buyer: ERIC NailsCH (RBC) [Entitic mass]28.9 kyTdybeg42.2-33.5 [facility] CenterComment on above:Performed By: #### NEO PRINCEO #### [address] [address] Commodity Buyer: ERIC NailsCHC (RBC) [Mass/Vol]31.9 g/eGAkfsbm43.4-34.8 [facility] CenterComment on above:Performed By: #### TAYLOR PRINCE #### [address] [address] Commodity Buyer: ERIC NailsCV (RBC) [Entitic vol]90.6 cOZeifvn15.6-102.9 [facility] CenterComment on above:Performed By: #### TAYLOR PRINCE #### [facility] [address] [place] [address] Commodity Buyer: ERIC Nailsonocytes (Bld) [#/Vol]0.42 10*3/uLNormal 0.10-1.20[facility] CenterComment on above:Performed By: #### TAYLOR PRINCE #### [address] [address] Commodity Buyer: ERIC Nailsonocytes/100 WBC (Bld)5 %Normal3-12[facility] CenterComment on above:Performed By: #### TAYLOR PRINCE #### [address] [address] Commodity Buyer: Felipe Randall MDNeutrophil (Seg)66 %Urqk63-45QkzdpOhiohealth Grant Medical CenterComment on above:Performed By: #### TAYLOR PRINCE #### [address] [address] Commodity Buyer: Felipe Randall MDNRBC Automated0.0 per 100 WBCNormal0.0[facility] CenterComment on above:Performed By: #### TAYLOR PRINCE #### [address] [address] Commodity Buyer: JENNIFER Nailslatelet mean volume (Bld) [Entitic vol]10.5 fL Normal8.1-13.5[facility] Medical CenterComment on above:Performed By: #### TAYLOR PRINCE #### [facility] [address] [place] [address] Commodity Buyer: Olvin Nails (Bld) [#/Vol]243 10*3/aLVftxqr298-310 [facility] CenterComment on above:Performed By: #### TAYLOR PRINCE #### [facility] [address] [place] [address] Commodity Buyer: CELESTE Nails (Bld) [#/Vol]4.26 10*6/uLNormal3.95-5.11 [facility] CenterComment on above:Performed By: #### ENID PRINCEICAKamran #### [facility] [address] [place] [address] Commodity Buyer: EVERETTE Nails (Bld) [#/Vol]8.3 10*3/uLNormal3.5-11.3MMonrovia Community HospitalComment on above:Performed By: #### TAYLOR PRINCE #### [facility] [address] [place] [address] Commodity Buyer: César Nails PerformedNOT REPORTEDNormalOhiohealth Grant Medical CenterComment on above:Performed By: #### TAYLOR PRINCE #### [facility] [address] [place] [address] Commodity Buyer: Olvin Nails (Bld) [#/Vol]NOT REPORTEDNormalOhiohealth Grant Medical CenterComment on above:Performed By: #### TAYLOR PRINCE #### [facility] [address] [place] [address] Commodity Buyer: CELESTE Nails morphology finding Nom (Bld)NOT REPORTED NormalOhiohealth Grant Medical CenterComment on above:Performed By: #### TAYLOR PRINCE #### [facility] [place] [address] Commodity Buyer: EVERETTE Nails MorphologyNOT REPORTEDNormalOhiohealth Grant Medical CenterComment on above:Performed By: #### TAYLOR PRINCE #### [facility] [address] [place] [address] Commodity Buyer: Jeffy Nails 95-02-5721aPVG Coag (Bld) [Time]50.3 s High20.5-30.5[facility] CenterComment on above:Performed By: #### TAYLOR PRINCE #### [facility] [address] [place] [address] Commodity Buyer: Vinicio NailsT Coag (Bld) [Time]62.8 sHigh20.5-30.5[facility] CenterComment on above:Performed By: #### TAYLOR PRINCE #### [facility] [address] [place] [address] Commodity Buyer: Vinicio NailsT Coag (Bld) [Time]21.9 eBgdsph66.5-30.5[facility] CenterComment on above:Performed By: #### TAYLOR PRINCE #### [facility] [address] [place] [address] Commodity Buyer: Felipe Randall MDaPTT Coag (Bld) [Time]22.8 kBabacm45.5-30.5[facility] CenterComment on above:Performed By: #### TAYLOR PRINCE #### [facility] [address] [place] [address] Commodity Buyer: Charan Nails Metab w/rfx MGon 74-14-1227Eimtrkhvw [Moles/Vol]3.4 mmol/LLow3.7-5.3[facility]cla Medical CenterComment on above: Performed By: #### NIKI UMICAO #### [facility] [address] [place] [address] Commodity Buyer: Felipe Randall MDAnion gap [Moles/Vol]12 mmol/LNormal9-17[facility] CenterComment on above:Performed By: #### NIKI UMICAO #### [facility] [address] [place] [address] Commodity Buyer: Felipe Randall MDCalcium [Mass/Vol]8.8 mg/dLNormal8.6-10.4[facility] CenterComment on above:Performed By: #### NIKI UMICAO #### [facility] [address] [place] [address] Commodity Buyer: Felipe Randall MDChloride [Moles/Vol]101 mmol/BTducau52-517JnmgpOhiohealth Grant Medical CenterComment on above:Performed By: #### NIKI UMICAO #### [facility] [address] [place] [address] Commodity Buyer: Felipe Randall MDCO2 [Moles/Vol]27 mmol/JZjxcuv13-90RogicOhiohealth Grant Medical CenterComment on above:Performed By: #### NIKI UMICAO #### [facility] [address] [place] [address] Commodity Buyer: Felipe Randall MDCreatinine [Mass/Vol]0.64 mg/dLNormal0.50-0.90 [facility] CenterComment on above:Performed By: #### NIKI UMICAO #### [facility] [address] [place] [address] Commodity Buyer: RILYE Nails, Amer>60Normal>60MerMarian Regional Medical CenterComment on above:Performed By: #### NIKI UMICAO #### [facility] [address] [place] [address]71 Commodity Buyer: Felipe Randall MDGFR,non Amer>60Normal>60[facility] Medical CenterComment on above:Performed By: #### NIKI, UMICAO #### [facility] [address] [place] [address] 78371 Commodity Buyer: Felipe Randall MDGlucose [Mass/Vol]89 mg/rHAohfzw84-74HuivxFrench Hospital Medical CenterComment on above:Performed By: #### NIKI, UMICAO #### [facility] [address] [place] [address] 43579 Commodity Buyer: MARGO Nailsodium [Moles/Vol]140 mmol/UHvgfuy151-577HkgiuOhiohealth Grant Medical CenterComment on above:Performed By: #### ENID PRINCEICAO #### [facility] [address] [place] [address] 44568 Commodity Buyer: Felipe Randall MDUrea nitrogen [Mass/Vol]11 mg/dLNormal6-20[facility] CenterComment on above:Performed By: #### NIKI, UMICAO #### [facility] [address] [place] [address] 8[address] Commodity Buyer: Felipe Randall MD(cont.)[facility] Comment on above:Result Comment: Average GFR for 40-49 years old: 99 mL/min/1.73sq m Chronic Kidney Disease: <60 mL/min/1.73sq m Kidney failure: <15 mL/min/1.73sq m eGFR calculated using average adult body mass. Additional eGFR calculator available at: http://www.ClearCare.com/multiple_crcl_2012.htmPerformed By: #### NIKI, UMICAO #### [facility] [address] [place] [address]807 Commodity Buyer: Felipe Randall MDBUN/CRE RatioNOT REPORTEDNormal9-20[facility] CenterComment on above:Performed By: #### NIKI U[place]ON[place] #### [facility] [address] [place] [address] 58685 Commodity Buyer: MARGO Nailstaging:NOT REPORTEDNormalMerMarian Regional Medical CenterComment on above:Performed By: #### TAYLOR PRINCE #### [facility] [address] [place] [address] 07414 Commodity Buyer: Charan Nails Metabolic Profon 36-70-6416Qxhmz gap [Moles/Vol]10 mmol/LNormal9-17[facility] CenterComment on above: Performed By: #### TAYLOR PRINCE #### [facility] [address] [place] [address] 82680 Commodity Buyer: GREGORY Nailsalcium [Mass/Vol]8.7 mg/dLNormal8.6-10.4[facility] Medical CenterComment on above:Performed By: #### TAYLOR PRINCE #### [facility] [address] [place] [address] 46479 Commodity Buyer: Felipe Randall MDChloride [Moles/Vol]100 mmol/ZTuoxqg42-495XetqsOhiohealth Grant Medical CenterComment on above:Performed By: #### TAYLOR PRINCE #### [facility] [address] [place] [address] 37540 Commodity Buyer: Felipe Randall MDCO2 [Moles/Vol]26 mmol/CVtjawq28-86WwxhdOhiohealth Grant Medical CenterComment on above:Performed By: #### NEO PRINCEO #### [facility] [address] [place] [address] 72600 Commodity Buyer: Felipe Randall MDCreatinine [Mass/Vol]0.57 mg/dLNormal0.50-0.90 [facility] CenterComment on above:Performed By: #### UA, UMICAO #### [facility] [address] [place] [address] Commodity Buyer: Felipe Randall MDGFR, Amer>60Normal>60[facility] Medical CenterComment on above:Performed By: #### UA, UMICAO #### [facility] [address] [place] [address] 92881 Commodity Buyer: Felipe Randall MDGFR,non Amer>60Normal>60[facility] Medical CenterComment on above:Performed By: #### NIKI, UMICAO #### [facility] [address] [place] [address] 62364 Commodity Buyer: Felipe Randall MDGlucose [Mass/Vol]102 mg/iDFbok19-86Mldml [facility] Medical CenterComment on above:Performed By: #### NIKI UMICAO #### [facility] [address] [place] [address] 34722 Commodity Buyer: JENNIFER Nailsotassium [Moles/Vol]3.5 mmol/LLow3.7-5.3[facility] Medical CenterComment on above:Performed By: #### NIKI, UMICAO #### [facility] [address] [place] [address] 53759 Commodity Buyer: MARGO Nailsodium [Moles/Vol]136 mmol/RXidyxb504-804XrdzzMarian Regional Medical CenterComment on above:Performed By: #### NIKI, UMICAO #### [facility] [address] [place] [address] 75641 Commodity Buyer: Felipe Randall MDUrea nitrogen [Mass/Vol]11 mg/dLNormal6-20MerMarian Regional Medical CenterComment on above:Performed By: #### UA, UMICAO #### [facility] [address] [place] [address] 18485 Commodity Buyer: Felipe Randall MD(cont.)[facility] Comment on above:Result Comment: Average GFR for 40-49 years old: 99 mL/min/1.73sq m Chronic Kidney Disease: <60 mL/min/1.73sq m Kidney failure: <15 mL/min/1.73sq m eGFR calculated using average adult body mass. Additional eGFR calculator available at: http://www.ClearCare.Gnzo/multiple_crcl_2012.htmPerformed By: #### UA, UMICAO #### [facility] [address] [place] [address] Commodity Buyer: SUHAS Nails/TOLU Salazar REPORTEDNoal9-20[facility] CenterComment on above:Performed By: #### UA, UMICAO #### [facility] [address] [place] [address] 71633 Commodity Buyer: MARGO Nailstaging:NOT REPORTEDNormalOhiohealth Grant Medical CenterComment on above:Performed By: #### UA, UMICAO #### [facility] [address] [place] [address] Commodity Buyer: Felipe Randall MDBrain Natri. Peptideon 48-17-7395Mcfsqeazxgh peptide B (Bld) [Mass/Vol]2284 pg/mLHigh<300[facility] Comment on above:Result Comment: Pro-BNP results cannot be compared to BNP results.Performed By: #### CDP, BNP, TROPI, BMP, PT, PTT #### [facility] [address] [place] [address] 75452 Commodity Buyer: Felipe Randall MDNatriuretic peptide B (Bld) [Mass/Vol]Pro-BNP Reference Range:[facility] MiamisburgComment on above:Result Comment: Rule Out: <300 [place] Zone: Age <50 300-450 Age 50-75 300-900 Age >75 300-1800 Usually represents mild to moderate HF but other cardiopulmonary causes cannot be ruled out. Rule In: Age <50 >450 Age 50-75 >900 Age >75 >1800Performed By: #### CDP, BNP, TROPI, BMP, PT, PTT #### [address] [address] Commodity Buyer: Nakia Nails 62-78-0072Lxslmiyhnbd distribution width (RBC) [Ratio]13.4 %Hltqss85.8-14.4[facility] Medical CenterComment on above:Performed By: #### TAYLOR PRINCE #### [facility] [address] [place] [address] 57313 Commodity Buyer: Felipe Randall MDHematocrit (Bld) [Volume fraction]36.7 %Normal 36.3-47.1MMonrovia Community HospitalComment on above:Performed By: #### TAYLOR PRINCE #### [address] [address] Commodity Buyer: Felipe Randall MDHemoglobin (Bld) [Mass/Vol]11.7 g/dLLow11.9-15.1 [facility] CenterComment on above:Performed By: #### TAYLOR PRINCE #### [facility] [address] [place] [address] 71810 Commodity Buyer: ERIC NailsCH (RBC) [Entitic mass]28.4 bgWrifnl52.2-33.5 [facility] CenterComment on above:Performed By: #### ENID PRINCEICAKamran #### [facility] [address] [place] [address] 12150 Commodity Buyer: ERIC NailsCHC (RBC) [Mass/Vol]31.9 g/sZZfvouj37.4-34.8 [facility] CenterComment on above:Performed By: #### ENID PRINCEICAKamran #### [facility] [address] [place] [address] 66616 Commodity Buyer: ERIC NailsCV (RBC) [Entitic vol]89.1 uCWxclfi17.6-102.9 [facility] CenterComment on above:Performed By: #### NEO PRINCEO #### [facility] [address] [place] [address] 89498 Commodity Buyer: JOSE Nails Automated0.0 per 100 WBCNormal0.0[facility] Medical CenterComment on above:Performed By: #### NIKI UMICAO #### [facility] [address] [place] [address] 79813 Commodity Buyer: Jennifer Nails mean volume (Bld) [Entitic vol]10.9 fL Normal8.1-13.5[facility] Medical CenterComment on above:Performed By: #### NIKI UMICAO #### [address] [address] Commodity Buyer: Olvin Nails (Bld) [#/Vol]232 10*3/vAMbynew709-539 [facility] CenterComment on above:Performed By: #### NIKI UMICAO #### [address] [address] Commodity Buyer: CELESTE Nails (Bld) [#/Vol]4.12 10*6/uLNormal3.95-5.11 [facility] CenterComment on above:Performed By: #### NIKI, UMICAO #### [facility] [address] [place] [address] 92045 Commodity Buyer: EVERETTE Nails (Bld) [#/Vol]8.9 10*3/uLNormal3.5-11.3MMonrovia Community HospitalComment on above:Performed By: #### NIKI UMICAO #### [facility] [address] [place] [address] 20974 Commodity Buyer: GREGORY Nails with Diffon 16-87-3875Bgc. Basophil0.04 k/uL Normal0.00-0.20[facility] Medical CenterComment on above:Performed By: #### TAYLOR PRINCE #### [facility] [address] [place] [address] 22127 Commodity Buyer: MDAbs. JesuImm.Granulocyte0.03 k/uLNormal0.00-0.30[facility] CenterComment on above:Performed By: #### TAYLOR PRINCE #### [facility] [address] [place] [address] 73949 Commodity Buyer: Maddison Nails.Neutrophil (Seg)5.69 k/uLNormal1.50-8.10 [facility] CenterComment on above:Performed By: #### TAYLOR PRINCE #### [facility] [address] [place] [address] 26801 Commodity Buyer: Felipe Randall MDBasophils/100 WBC (Bld)0 %Normal0-2MMonrovia Community HospitalComment on above:Performed By: #### TAYLOR PRINCE #### [facility] [address] [place] [address] 59890 Commodity Buyer: Felipe Randall MDEosinophils (Bld) [#/Vol]0.15 10*3/uLNormal 0.00-0.44[facility] CenterComment on above:Performed By: #### TAYLOR PRINCE #### [facility] [address] [place] [address] 49573 Commodity Buyer: Felipe Randall MDEosinophils/100 WBC (Bld)2 %Normal1-4[facility] Medical CenterComment on above:Performed By: #### TAYLOR PRINCE #### [facility] [address] [place] [address] 69850 Commodity Buyer: Felipe Randall MDErythrocyte distribution width (RBC) [Ratio]13.4 %Nkqvfe73.8-14.4[facility] Medical CenterComment on above:Performed By: #### TAYLOR PRINCE #### [address] [address] Commodity Buyer: Felipe Randall MDHematocrit (Bld) [Volume fraction]37.7 %Normal 36.3-47.1MMonrovia Community HospitalComment on above:Performed By: #### TAYLOR PRINCE #### [address] [address] Commodity Buyer: Felipe Randall MDHemoglobin (Bld) [Mass/Vol]11.6 g/dLLow11.9-15.1 [facility] CenterComment on above:Performed By: #### TAYLOR PRINCE #### [address] [address] Commodity Buyer: Felipe Randall MDImmature granulocytes (Bld) [#/Vol]0 %Normal0 [facility] CenterComment on above:Performed By: #### TAYLOR PRINCE #### [address] [address] Commodity Buyer: Felipe Randall MDLymphocytes (Bld) [#/Vol]3.06 10*3/uLNormal 1.10-3.70[facility] Medical CenterComment on above:Performed By: #### TAYLOR PRINCE #### [address] [address] Commodity Buyer: Linda Nailsmphocytes/100 WBC (Bld)32 %Shziit85-99XzjrcOhiohealth Grant Medical CenterComment on above:Performed By: #### TAYLOR PRINCE #### [address] [address] Commodity Buyer: ERIC NailsCH (RBC) [Entitic mass]29.1 kbOgvcjc84.2-33.5 [facility] CenterComment on above:Performed By: #### NIKI, UMICAO #### [facility] [address] [place] [address] 35088 Commodity Buyer: ERIC NailsCHC (RBC) [Mass/Vol]30.8 g/nJOfjogj85.4-34.8 [facility] CenterComment on above:Performed By: #### NIKI, UMICAO #### [address] [address] Commodity Buyer: ERIC NailsCV (RBC) [Entitic vol]94.7 eKJsqcka75.6-102.9 [facility] CenterComment on above:Performed By: #### NIKI UMICAO #### [facility] [address] [place] [address] 22952 Commodity Buyer: ERIC Nailsonocytes (Bld) [#/Vol]0.56 10*3/uLNormal 0.10-1.20[facility] CenterComment on above:Performed By: #### NIKI, UMICAO #### [facility] [address] [place] [address] 62025 Commodity Buyer: ERIC Nailsonocytes/100 WBC (Bld)6 %Normal3-12[facility] CenterComment on above:Performed By: #### NIKI, UMICAO #### [address] [address] Commodity Buyer: Felipe Randall MDNeutrophil (Seg)60 %Ovdpny61-57UeppmOhiohealth Grant Medical CenterComment on above:Performed By: #### NIKI, UMICAO #### [facility] [address] [place] [address] 55685 Commodity Buyer: JOSE Nails Automated0.0 per 100 WBCNormal0.0[facility] CenterComment on above:Performed By: #### TAYLOR PRINCE #### [facility] [address] [place] [address] 57311 Commodity Buyer: Kailey Nailstepamela mean volume (Bld) [Entitic vol]10.7 fL Normal8.1-13.5[facility] Medical CenterComment on above:Performed By: #### TAYLOR PRINCE #### [facility] [address] [place] [address] 63677 Commodity Buyer: Kailey Nailstevanesa (Bld) [#/Vol]283 10*3/gLUgccaf966-020 [facility] CenterComment on above:Performed By: #### TAYLOR PRINCE #### [facility] [address] [place] [address] 20791 Commodity Buyer: CELESTE Nails (Bld) [#/Vol]3.98 10*6/uLNormal3.95-5.11 [facility] CenterComment on above:Performed By: #### NIKI UMICAO #### [facility] [address] [place] [address] 19484 Commodity Buyer: EVERETTE Nails (Bld) [#/Vol]9.5 10*3/uLNormal3.5-11.3MMonrovia Community HospitalComment on above:Performed By: #### NIKI UMICAO #### [facility] [address] [place] [address] 17007 Commodity Buyer: César Nails PerformedNOT REPORTEDI-70 Community HospitalalOhiohealth Grant Medical CenterComment on above:Performed By: #### NIKI UMICAO #### [facility] [address] [place] [address] 87283 Commodity Buyer: JENNIFER Nailslatelets (Bld) [#/Vol]NOT REPORTEDNormalOhiohealth Grant Medical CenterComment on above:Performed By: #### TAYLOR PRINCE #### [address] [address] Commodity Buyer: BARRETT NailsBC morphology finding Nom (Bld)NOT REPORTED NormalOhiohealth Grant Medical CenterComment on above:Performed By: #### TAYLOR PRINCE #### [address] [address] Commodity Buyer: EVERETTE Nails MorphologyNOT REPORTEDKettering Health MiamisburgComment on above:Performed By: #### TAYLOR PRINCE #### [address] [address] Commodity Buyer: MDAbs. Jesu Basophil0.03 k/uLNormal0.00-0.20[facility] CenterComment on above:Performed By: #### CDP, BNP, TROPI, BMP, PT, PTT #### [address] [address] Commodity Buyer: MDAbs. JesuImm.Granulocyte0.03 k/uLNormal0.00-0.30[facility] CenterComment on above:Performed By: #### CDP, BNP, TROPI, BMP, PT, PTT #### [address] [address] Commodity Buyer: MDAbs. JesuNeutrophil (Seg)5.21 k/uLNormal1.50-8.10 [facility] CenterComment on above:Performed By: #### CDP, BNP, TROPI, BMP, PT, PTT #### [address] [address] Commodity Buyer: Felipe Randall MDBasophils/100 WBC (Bld)0 %Normal0-2MMonrovia Community HospitalComment on above:Performed By: #### CDP, BNP, TROPI, BMP, PT, PTT #### [place] [address] Commodity Buyer: Felipe Randall MDEosinophils (Bld) [#/Vol]0.13 10*3/uLNormal 0.00-0.44[facility] CenterComment on above:Performed By: #### CDP, BNP, TROPI, BMP, PT, PTT #### [place] [address] Commodity Buyer: Felipe Randall MDEosinophils/100 WBC (Bld)1 %Normal1-4[facility] CenterComment on above:Performed By: #### CDP, BNP, TROPI, BMP, PT, PTT #### [facility] [address] [place] [address] Commodity Buyer: Felipe Randall MDErythrocyte distribution width (RBC) [Ratio]13.5 %Hpwjvx86.8-14.4[facility] CenterComment on above:Performed By: #### CDP, BNP, TROPI, BMP, PT, PTT #### [facility] [address] [place] [address] Commodity Buyer: Felipe Randall MDHematocrit (Bld) [Volume fraction]35.2 %Low 36.3-47.1MMonrovia Community HospitalComment on above:Performed By: #### CDP, BNP, TROPI, BMP, PT, PTT #### [facility] [address] [place] [address] Commodity Buyer: Felipe Randall MDHemoglobin (Bld) [Mass/Vol]11.1 g/dLLow11.9-15.1 [facility] CenterComment on above:Performed By: #### CDP, BNP, TROPI, BMP, PT, PTT #### [facility] [address] [place] [address] Commodity Buyer: Felipe Randall MDImmature granulocytes (Bld) [#/Vol]0 %Normal0 [facility] CenterComment on above:Performed By: #### CDP, BNP, TROPI, BMP, PT, PTT #### [address] [address] Commodity Buyer: Felipe Randall MDLymphocytes (Bld) [#/Vol]3.12 10*3/uLNormal 1.10-3.70[facility] CenterComment on above:Performed By: #### CDP, BNP, TROPI, BMP, PT, PTT #### [address] [address] Commodity Buyer: Linda Nailsmphocytes/100 WBC (Bld)34 %Xzqhxp88-75GnbssOhiohealth Grant Medical CenterComment on above:Performed By: #### CDP, BNP, TROPI, BMP, PT, PTT #### [address] [address] Commodity Buyer: ERIC NailsCH (RBC) [Entitic mass]29.1 mpRobnim04.2-33.5 [facility] CenterComment on above:Performed By: #### CDP, BNP, TROPI, BMP, PT, PTT #### [place] [address] Commodity Buyer: ERIC NailsCHC (RBC) [Mass/Vol]31.5 g/iTSoewjt21.4-34.8 [facility] CenterComment on above:Performed By: #### CDP, BNP, TROPI, BMP, PT, PTT #### [address] [address] Commodity Buyer: ERIC NailsCV (RBC) [Entitic vol]92.1 nOVcktoa03.6-102.9 [facility] CenterComment on above:Performed By: #### CDP, BNP, TROPI, BMP, PT, PTT #### [address] [address] Commodity Buyer: Felipe Randall MDMonocytes (Bld) [#/Vol]0.62 10*3/uLNormal 0.10-1.20[facility] CenterComment on above:Performed By: #### CDP, BNP, TROPI, BMP, PT, PTT #### [address] [address] Commodity Buyer: ERIC Nailsonocytes/100 WBC (Bld)7 %Normal3-12[facility] CenterComment on above:Performed By: #### CDP, BNP, TROPI, BMP, PT, PTT #### [place] [address] Commodity Buyer: Yonis Nailsutrophil (Seg)57 %Gaotwv77-02LlqrwOhiohealth Grant Medical CenterComment on above:Performed By: #### CDP, BNP, TROPI, BMP, PT, PTT #### [facility] [address] [place] [address] Commodity Buyer: Felipe Randall MDNRBC Automated0.0 per 100 WBCNormal0.0[facility] CenterComment on above:Performed By: #### CDP, BNP, TROPI, BMP, PT, PTT #### [facility] [address] [place] [address] Commodity Buyer: JENNIFER Nailslatelet mean volume (Bld) [Entitic vol]10.4 fL Normal8.1-13.5[facility] CenterComment on above:Performed By: #### CDP, BNP, TROPI, BMP, PT, PTT #### [facility] [address] [place] [address] Commodity Buyer: Olvin Nails (Bld) [#/Vol]278 10*3/kIIocxpk938-378 [facility] CenterComment on above:Performed By: #### CDP, BNP, TROPI, BMP, PT, PTT #### [address] [address] Commodity Buyer: CELESTE Nails (Bld) [#/Vol]3.82 10*6/uLLow3.95-5.11[facility] CenterComment on above:Performed By: #### CDP, BNP, TROPI, BMP, PT, PTT #### [address] [address] Commodity Buyer: EVERETTE Nails (d) [#/Vol]9.1 10*3/uLNormal3.5-11.3MMonrovia Community HospitalComment on above:Performed By: #### CDP, BNP, TROPI, BMP, PT, PTT #### [address] [address] Commodity Buyer: César Nails PerformedNOT REPORTEDNormalOhiohealth Grant Medical CenterComment on above:Performed By: #### CDP, BNP, TROPI, BMP, PT, PTT #### [address] [address] Commodity Buyer: Olvin Nails (d) [#/Vol]NOT REPORTEDNormalOhiohealth Grant Medical CenterComment on above:Performed By: #### CDP, BNP, TROPI, BMP, PT, PTT #### [facility] [address] [place] [address] Commodity Buyer: CELESTE Nails morphology finding Nom (Bld)NOT REPORTED NormalOhiohealth Grant Medical CenterComment on above:Performed By: #### CDP, BNP, TROPI, BMP, PT, PTT #### [facility] [place] [address] Commodity Buyer: EVERETTE Nails MorphologyNOT REPORTEDKettering Health MiamisburgComment on above:Performed By: #### CDP, BNP, TROPI, BMP, PT, PTT #### [facility] [address] [place] [address] Commodity Buyer: Agnes Nails Acidon [id number] [Moles/Vol]1.0 mmol/LNormal0.7-2.1[facility]cla Medical CenterComment on above:Performed By: ###TAYLOR BURNS #### [facility] [address] [place] [address] Commodity Buyer: Felipe Randall MDLactate [Moles/Vol]NOT REPORTEDKettering Health MiamisburgComment on above:Performed By: #### TAYLOR PRINCE #### [facility] [address] [place] [address] Commodity Buyer: Elijah Nailsver Profileon 33-43-6438Wofobpi [Mass/Vol]2.9 g/dLLow3.5-5.2[facility]cla Medical CenterComment on above:Performed By: ###TAYLOR BURNS #### [facility] [address] [place] [address] Commodity Buyer: Felipe Randall MDAlbumin/Globulin [Mass ratio]0.7 {ratio}Low 1.0-2.5[facility] CenterComment on above:Performed By: ###TAYLOR BURNS #### [facility] [address] [place] [address] Commodity Buyer: Hope Nailskaline Phos50 U/SYpsfky08-879QautkOhiohealth Grant Medical CenterComment on above:Performed By: #### TAYLOR PRINCE #### [facility] [place] [address] Commodity Buyer: Felipe Randall MDALT [Catalytic activity/Vol]6 U/LNormal5-33[facility] CenterComment on above:Performed By: #### NIKI UMICAO #### [facility] [address] [place] [address] Commodity Buyer: Felipe Randall MDAST [Catalytic activity/Vol]16 U/LNormal<32[facility] CenterComment on above:Performed By: #### NIKI UMICAO #### [facility] [address] [place] [address] Commodity Buyer: Felipe Randall MDBilirubin Ql (U)0.32 mg/dLNormal0.3-1.2MMonrovia Community HospitalComment on above:Performed By: #### ENID PRINCEICAO #### [facility] [address] [place] [address] Commodity Buyer: Óscar Nailsirubin, Indirect0.22 mg/dLNormal0.00-1.00 [facility] CenterComment on above:Performed By: #### NIKI UMICAO #### [facility] [address] [place] [address] Commodity Buyer: Óscar Nailsirubin.direct [Mass/Vol]0.10 mg/dLNormal<0.31 [facility] CenterComment on above:Performed By: #### NIKI UMICAO #### [facility] [address] [place] [address] Commodity Buyer: Felipe Randall MDProtein [Mass/Vol]7.0 g/dLNormal6.4-8.3MMonrovia Community HospitalComment on above:Performed By: #### NIKI UMICAO #### [facility] [address] [place] [address] Commodity Buyer: Felipe Randall MDGlobulin (S) [Mass/Vol]NOT REPORTEDNormal1.5-3.8 [facility] CenterComment on above:Performed By: #### TAYLOR PRINCE #### [facility] [address] [place] [address] Commodity Buyer: ERIC NailsRSA, DNA, Nasalon [id number], DNA, Nasal POSITIVE: MRSA DNA detected by nucleic acid amplification.AbnormalNMRSAAMerMarian Regional Medical CenterComment on above:Result Comment: Results should be used as an adjunct to nosocomial control efforts to identify patients needing enhanced precautions. The test is not intended to identify patients with staphylococcal infections. Results should not be used to guide or monitor treatment for MRSA infections. Performed By: ###TAYLOR BURNS #### [facility] [address] [place] [address] Commodity Buyer: Rachael Nails Description.NASAL SWABNormalMerMarian Regional Medical CenterComment on above:Performed By: ###TAYLOR BURNS #### [facility] [address] [place] [address] Commodity Buyer: Tala Nailsgnesiumon 80-81-8581Rzbhknrbu [Mass/Vol]1.5 mg/dLLow1.6-2.6[facility]cla Medical CenterComment on above:Performed By: #### NEO PRINCEO #### [facility] [address] [place] [address] Commodity Buyer: Mireya Nails 40-31-4121PYI Coag (PPP) [Relative time]1.0 {INR}[facility] Health MiamisburgComment on above:Result Comment: Therapeutic Range: Moderate Anticoagulant Intensity: INR = 2.0-3.0 High Anticoagulant Intensity: INR = 2.5-3.5Performed By: #### TAYLOR PRINCE #### [facility] [address] [place] [address] Commodity Buyer: DANIELA Nails Coag (PPP) [Time]10.6 sNormal9.0-12.0[facility] Medical CenterComment on above:Performed By: #### TAYLOR PRINCE #### [employer] [address] [place] [address] Commodity Buyer: GANESH Nails Coag (PPP) [Relative time]1.0 {INR}Normal [facility] CenterComment on above:Result Comment: Therapeutic Range: Moderate Anticoagulant Intensity: INR = 2.0-3.0 High Anticoagulant Intensity: INR = 2.5-3.5Performed By: #### TAYLOR PRINCE #### [facility] [address] [place] [address] 36545 Commodity Buyer: DANIELA Nails Coag (PPP) [Time]10.8 sNormal9.0-12.0[facility] Grant Medical CenterComment on above:Performed By: #### TAYLOR PRINCE #### [facility] [address] [place] [address] Commodity Buyer: HALINA Nails w/reflex to FT4on 27-10-8652BXD Qn1.30 m[IU]/LNormal0.30-5.00[facility] Medical CenterComment on above:Performed By: #### TAYLOR PRINCE #### [facility] [address] [place] [address]338 Commodity Buyer: Naty Nails 73-58-8860Hqzjgdxu I.cardiac [Mass/Vol]96 ng/LCritically high0-14Ohio[facility] Grant Medical CenterComment on above:Result Comment: High Sensitivity Troponin values cannot be compared with other Troponin methodologies. Patients with high levels of Biotin oral intake (i.e >5mg/day) may have falsely decreased Troponin levels. Samples collected within 8 hours of biotin intake may require additional information for diagnosis. Previous Alert Value ReportedPerformed By: #### UA, UMICAO #### [facility] [address] [place] [address] 10495 Commodity Buyer: Becky Nails I.cardiac [Mass/Vol]NOT REPORTEDNormal [facility] Medical CenterComment on above:Performed By: #### NIKI, UMICAO #### [facility] [address] [place] [address] 51394 Commodity Buyer: Becky Nails I.cardiac [Mass/Vol]133 ng/LCritically high0-14[facility] Grant Medical CenterComment on above:Result Comment: High Sensitivity Troponin values cannot be compared with other Troponin methodologies. Patients with high levels of Biotin oral intake (i.e >5mg/day) may have falsely decreased Troponin levels. Samples collected within 8 hours of biotin intake may require additional information for diagnosis. Previous Alert Value ReportedPerformed By: #### TAYLOR PRINCE #### [facility] [address] [place] [address] 35282 Commodity Buyer: Becky Nails I.cardiac [Mass/Vol]NOT REPORTEDNormal <0.03[facility] Grant Medical CenterComment on above:Performed By: #### NIKI, NEOO #### [facility] [address] [place] [address] 33897 Commodity Buyer: Becky Nails I.cardiac [Mass/Vol]132 ng/LCritically high0-14[facility] Grant Medical CenterComment on above:Result Comment: High Sensitivity Troponin values cannot be compared with other Troponin methodologies. Patients with high levels of Biotin oral intake (i.e >5mg/day) may have falsely decreased Troponin levels. Samples collected within 8 hours of biotin intake may require additional information for diagnosis.Performed By: #### CDP, BNP, TROPI, BMP, PT, PTT #### [facility] [address] [place] [address] 64141 Commodity Buyer: Felipe Madoff, MDTroponin I.cardiac [Mass/Vol]NOT REPORTEDNoSelect Medical Specialty Hospital - Columbus SouthComment on above:Performed By: #### CDP, BNP, TROPI, BMP, PT, PTT #### [address] [id number] Commodity Buyer: Felipe Randall MDVitamin D 25 OHon 85-84-6132Ckpxfiq D 25 OH34.6 ng/yMAaasju30.0-100.0[facility] Grant Medical CenterComment on above:Result Comment: Reference Range: Vitamin D status Range Deficiency <20 ng/mL Mild Deficiency 20-30 ng/mL Sufficiency 30-100 ng/mL Toxicity >100 ng/mLPerformed By: #### UA, UMICAO #### [address] [id number] Commodity Buyer: Santino Nails,Urine 44-98-3259Anns,UrineSpecimen Description .URINE Special Requests 1ST INSERTION Culture AEROCOCCUS URINAE >[id number] CFU/ML There are no CLSI interpretive guidelines for routine susceptibility testing. Aerococcus species are reported to be susceptible to penicillin. A. urinae has also been described as susceptible to amoxicillin and nitrofurantoin (for treatment of urinary tract infections only). Report Status FINAL 08/31/2018NormOhioHealth Grant Medical CenterComment on above:Performed By: #### URC #### [address] [phone] Commodity Buyer: GREGORY NailsBC 39-11-3708Dfuxkeepswl distribution width (RBC) [Ratio]13.4 %Ozcmqt06.8-14.4[facility] Grant Medical CenterComment on above:Performed By: #### CBC #### [place] [address] Commodity Buyer: Felipe Randall MDHematocrit (Bld) [Volume fraction]39.8 %Normal 36.3-47.1MercFrench Hospital Medical CenterComment on above:Performed By: #### CBC #### [address] [place] [address] Commodity Buyer: Felipe Randall MDHemoglobin (Bld) [Mass/Vol]11.6 g/dLLow11.9-15.1 [facility] CenterComment on above:Performed By: #### CBC #### [address] [address] Commodity Buyer: ERIC NailsCH (RBC) [Entitic mass]28.9 kvQqtlkm53.2-33.5 [facility] Medical CenterComment on above:Performed By: #### CBC #### [address] [address] Commodity Buyer: ERIC NailsCHC (RBC) [Mass/Vol]29.1 g/tBEksrkd52.4-34.8 [facility] CenterComment on above:Performed By: #### CBC #### [address] [address] Commodity Buyer: ERIC NailsCV (RBC) [Entitic vol]99.0 yWXicrac79.6-102.9 [facility] CenterComment on above:Performed By: #### CBC #### [address] [address] Commodity Buyer: Felipe Randall MDNRBC Automated0.0 per 100 WBCNormal0.0[facility] Grant Medical CenterComment on above:Performed By: #### CBC #### [address] [address] Commodity Buyer: Kailey Nailstelet mean volume (Bld) [Entitic vol]11.2 fL Normal8.1-13.5[facility] Grant Medical CenterComment on above:Performed By: #### CBC #### [address] [address] Commodity Buyer: Olvin Nails (d) [#/Vol]239 10*3/aAJbmdar517-640 [facility] Medical CenterComment on above:Performed By: #### CBC #### [facility] [place] [address] Commodity Buyer: BARRETT Nails (d) [#/Vol]4.02 10*6/uLNormal3.95-5.11 [facility] Medical CenterComment on above:Performed By: #### CBC #### [facility] [address] [place] [address]279 Commodity Buyer: INGA Nails ([facility]) [#/Vol]10.1 10*3/uLNormal3.5-11.3MMonrovia Community HospitalComment on above:Performed By: #### CBC #### [address] [address] Commodity Buyer: FREDERIC NailsR CERVICAL SPINE (2-3 VIEWS)on 39-39-3527AY CERVICAL SPINE (2-3 VIEWS)EXAMINATION: TWO XRAY VIEWS OF THE CERVICAL SPINE [...] Signed by: Sanaz Mullins MD 08/31/18 Final resultNormalOhiohealth Grant Medical CenterXR CERVICAL SPINE (2-3 VIEWS) EXAMINATION: 2 XRAY [...] Signed by: Pepe Mckeon MD 08/31/18 Final resultKettering Health MiamisburgType + Screenon 39-57-4193Rfvt + ScreenSample Expiration 09/02/2018 Arm Band Number BE [id number] ABO/Rh(D) AB POSITIVE Antibody Screen NEGATIVEKettering Health MiamisburgComment on above: Performed By: #### TYS #### [facility] [address] [place] [address] 6[address]99 Commodity Buyer: Felipe Randall MDUrinalysis, Routineon 59-45-7547Wwryhdpvqav Acid,UrNegativeNoalNEGOhiohealth Grant Medical CenterComment on above: Performed By: #### UA, UMICAO #### [facility] [address] [place] [address] Commodity Buyer: Felipe Randall MDBilirubin, SemiQt,UrNegativeI-70 Community HospitalalNEGOhiohealth Grant Medical CenterComment on above:Performed By: #### UA, UMICAO #### [facility] [address] [place] [address] 34081 Commodity Buyer: GREGORY Nailsolor (U)YELLOWNormalYELMerMarian Regional Medical CenterComment on above:Performed By: #### UA, UMICAO #### [facility] [address] [place] [address] 02265 Commodity Buyer: Felipe Randall MDGlucose Ql (U)NegativeNoalNEGOhiohealth Grant Medical CenterComment on above:Performed By: #### UA, UMICAO #### [facility] [address] [place] [address] 04237 Commodity Buyer: Felipe Randall MDHemoglobin, UrSMALLAbnormalNEGOhiohealth Grant Medical CenterComment on above:Performed By: #### TAYLOR PRINCE #### [facility] [address] [place] [address]013 Commodity Buyer: Felipe Randall MDLeukocyte esterase Test strip Ql (U)LARGE AbnormalNEGOhiohealth Grant Medical CenterComment on above:Performed By: #### TAYLOR PRINCE #### [facility] [address] [place] [address] 83164 Commodity Buyer: Felipe Randall MDNitrite,UrNegativeNormalNEGOhiohealth Grant Medical CenterComment on above:Performed By: #### TAYLOR PRINCE #### [facility] [address] [place] [address] Commodity Buyer: Jennifer NailsH (U)6.0 [pH]Normal5.0-8.0[facility] Medical CenterComment on above:Performed By: #### TAYLOR PRINCE #### [facility] [address] [place] [address] 25759 Commodity Buyer: JENNIFER Nailsrotein Ql (U)TRACEAbnormalNEGOhiohealth Grant Medical CenterComment on above:Performed By: #### TAYLOR PRINCE #### [facility] [address] [place] [address] 53152 Commodity Buyer: MARGO Nailspecific gravity (U) [Rel density]1.008Normal 1.005-1.030Ohio[facility] Grant Medical CenterComment on above:Performed By: #### TAYLOR PRINCE #### [facility] [address] [place] [address] 29677 Commodity Buyer: Felipe Randall MDTurbidityTURBIDAbnormalCLEARMercFrench Hospital Medical CenterComment on above:Performed By: #### TAYLOR PRINCE #### [facility] [address] [place] [address] 07767 Commodity Buyer: Laverne Nailsbilinogen,UrNormalNormalNORMOhiohealth Grant Medical CenterComment on above:Performed By: #### UA, UMICAO #### [facility] [address] [place] [address]11 Commodity Buyer: Wesly NailsNOT REPORTEDNormalOhiohealth Grant Medical CenterComment on above:Performed By: #### UA, UMICAO #### [facility] [address] [place] [address] 19087 Commodity Buyer: Felipe Randall MDUrinalysis,Microon 08-30-2018-----NormalOhiohealth Grant Medical CenterComment on above:Performed By: #### NIKI, UMICAO #### [address] [address] Commodity Buyer: Felipe Randall MDBacteria LM.HPF (Urine sed) [#/Area]MANYAbnormal NONEOhiohealth Grant Medical CenterComment on above:Performed By: #### NIKI, UMICAO #### [address] [address] Commodity Buyer: GREGORY Nailsasts LM.LPF (Urine sed) [#/Area]2 TO 5 HYALINE Normal0-8[facility] Grant Medical CenterComment on above:Result Comment: Reference range defined for non-centrifuged specimen.Performed By: #### UA, UMICAO #### [facility] [address] [place] [address] 22988 Commodity Buyer: Felipe Randall MDEpithelial cells LM.HPF (Urine sed) [#/Area]0 TO 8Evhfft1-4Kpmxf [facility]cla Medical CenterComment on above:Performed By: #### UA, UMICAO #### [facility] [address] [place] [address] 14622 Commodity Buyer: BARRETT NailsBC (U) [#/Vol]5 TO 85Vwjddl4-4RfwzgOhiohealth Grant Medical CenterComment on above:Result Comment: Reference range defined for non- centrifuged specimen.Performed By: #### TAYLOR PRINCE #### [facility] [address] [address] Commodity Buyer: Felipe Randall MDWBC (U) [#/Vol]TOO NUMEROUS TO COUNTNormal0-5 [facility] CenterComment on above:Performed By: #### NIKI, UMICAO #### [facility] [address] [place] [address]503 Commodity Buyer: Nicholas Nails sediment LM Ql (Urine sed)NOT REPORTED NormalNONEMeJohn F. Kennedy Memorial HospitalComment on above:Performed By: #### NIKI UMICAO #### [facility] [address] [place] [address] 24869 Commodity Buyer: Betsy Nailsstjessica LM Nom (Urine sed)NOT REPORTEDNormal NONEOhiohealth Grant Medical CenterComment on above:Performed By: #### NIKI, UMICAO #### [facility] [address] [place] [address]36 Commodity Buyer: Felipe Randall MDEpithelial, RenalNOT RLSSCFCBFjcyih6RwkzxOhiohealth Grant Medical CenterComment on above:Performed By: #### NIKI, UMICAO #### [facility] [address] [place] [address] Commodity Buyer: ERIC Nailsucus StrandsNOT REPORTEDNormalNONEMeJohn F. Kennedy Memorial HospitalComment on above:Performed By: #### NIKI, UMICAO #### [facility] [address] [place] [address] 40009 Commodity Buyer: Felipe Randall MDOther ObservationsNOT REPORTEDNormalNREQOhiohealth Grant Medical CenterComment on above:Performed By: #### UA, UMICAO #### [facility] [address] [place], [place] [phone] Commodity Buyer: Adela NalisonasNOT REPORTEDNormalNONEMeJohn F. Kennedy Memorial HospitalComment on above:Performed By: #### UA, UMICAO #### [facility] [address] [place], [place] 5169208 Commodity Buyer: Hemant Nailsast LM Ql (Urine sed)NOT REPORTEDNormalNONE [facility] Medical CenterComment on above:Performed By: #### UA, UMICAO #### [facility] [address] [place], [place] 8029408 Commodity Buyer: SKYE Nails CERVICAL SPINE WO CONTRASTon 10-49-9651DFR CERVICAL SPINE WO CONTRASTEXAMINATION: MRI OF THE CERVICAL SPINE WITHOUT CONTRAST [...] Signed by: Ilsa Finch MD 07/14/18 Final resultNormalMercy [facility] Vital Signs Date TimeVital SignValuePerforming PkydtwbfrOlpkuwkl59-30-9005 13:19-0500Body nznjam595.96 cmLon [employer] DO Work Phone: [facility]11-05-2025 13:19-0500 Body mass index (BMI) [Ratio]50.2 kg/s0Dgycf [employer] DO Work Phone: [facility]11-05-2025 13:19-0500 Body teubroxvifn953.4 [degF]Lon Morejons DO Work Phone: [facility]11-05-2025 13:19-0500 Body .35 kgLon [employer] DO Work Phone: [facility]11-05-2025 13:19-0500 Diastolic blood vahebvoy38 mm[Hg]Lon [employer] DO Work Phone: [facility]11-05-2025 13:19-0500 Heart rate61 /minLon MorejonMaps [employer] DO Work Phone: [facility]11-05-2025 13:19-0500 SaO2% (BldA) [Mass fraction]94 %Lon [employer] DO Work Phone: [facility]11-05-2025 13:19-0500 Systolic blood dxtnezyf229 mm[Hg]Lon Kuns DO Work Phone: [facility]08-28-2024 15:02-0400 Body mefkxx832.96 cmDO Lon Kuns Work Phone: [facility]08-28-2024 15:02-0400 Body mass index (BMI) [Ratio]45.1 kg/m2DO Lon Kuns Work Phone: [facility]08-28-2024 15:02-0400 Body knsicd083.66 kgDO Lon Kuns Work Phone: [phone]47[facility]08-28-2024 15:02-0400 Diastolic blood mm[Hg]DO Lon Kuns Work Phone: [facility]08-28-2024 15:02-0400 Heart rate92 /minDO Lon Kuns Work Phone: [facility]08-28-2024 15:02-0400 Respiratory rate18 /minDO Lon Kuns Work Phone: [facility]08-28-2024 15:02-0400 SaO2% (BldA) [Mass fraction]95 %DO Lon Kuns Work Phone: [facility]08-28-2024 15:02-0400 Systolic blood qxofymdp984 mm[Hg]DO Lon Kuns Work Phone: [facility]06-25-2024 07:48-0400 Body xdlhov971.96 cmDO Lon Kuns Work Phone: [facility]06-25-2024 07:42-0400 Body mass index (BMI) [Ratio]45.3 kg/m2DO Lon Kuns Work Phone: [address] [place], [place] [address]-25-2024 07:42-0400 Body jrumoq870.11 kgDO Lonalondra Ibrahim Work Phone: [facility]06-25-2024 07:42-0400 Diastolic blood ibeqgyur67 mm[Hg]DO Lon Kuns Work Phone: [facility]06-25-2024 07:42-0400 Heart rate81 /minDO Lon Ibrahim Work Phone: [facility]06-25-2024 07:42-0400 Respiratory rate18 /minDO Lon Ibrahim Work Phone: [facility]06-25-2024 07:42-0400 SaO2% (BldA) [Mass fraction]94 %DO Lno Evelia Work Phone: [facility]06-25-2024 07:42-0400 Systolic blood kwsznusy070 mm[Hg]DO Lon Kuns Work Phone: [facility]06-05-2024 15:29-0400 Body mass index (BMI) [Ratio]44.94 kg/b1Ocejenaman Fernandes APRN.CNP Work Phone: [facility]06-05-2024 15:29-0400Body jurrgs923.76 kgTernaman Fernandes APRN.CNP Work Phone: [facility]06-05-2024 15:29-0400Diastolic blood wspayhpk84 mm[Hg]Heather Fernandes APRN.ACETYLENE TORCH BURNER Work Phone: [facility]06-05-2024 15:29-0400Heart rate88 /min Heather Fernandes APRN.ACETYLENE TORCH BURNER Work Phone: [facility]06-05-2024 15:29-0400Systolic blood cyxrvowq509 mm[Hg]Heather Fernandes APRN.ACETYLENE TORCH BURNER Work Phone: [facility]04-26-2024 13:09-0400Body mass index (BMI) [Ratio]44.94 kg/l4Ebsqa Dena [employer] [employer].ACETYLENE TORCH BURNER Work Phone: [facility]04-26-2024 13:09-0400Body bdmujj199.[address] [employer].ACETYLENE TORCH BURNER Work Phone: [facility]04-26-2024 13:09-0400Diastolic blood idxwurpy007 mm[Hg]Heather Dena [employer].ACETYLENE TORCH BURNER Work Phone: [facility]04-26-2024 13:09-0400Heart rate75 /min Heather Lathrop [employer].ACETYLENE TORCH BURNER Work Phone: [facility]04-26-2024 13:09-0400Systolic blood wgympyaw071 mm[Hg]Heather Lathrop [employer].[facility] Work Phone: [facility]03-11-2024 14:07-0400Body .76 kgApurva Campa MD Work Phone: [facility]03-11-2024 14:07-0400Diastolic blood mzphbpou89 mm[Hg]Apurva Camap MD Work Phone: [facility]03-11-2024 14:07-0400Heart rate80 /min Apurva Campa MD Work Phone: [facility]03-11-2024 14:07-0400Systolic blood zhhamyar157 mm[Hg]Apurva Campa MD Work Phone: [facility]01-09-2024 10:00-0500Body diwggo327.96 cmLon Ibrahim Other [employer] Other [id number] 10:00-0500Body mass index (BMI) [Ratio] 45.32 kg/l9FrpszLon Ibrahim Other [employer] Other 01-09-2024 10:00-0500Body tmyxvf906.12 kgLon Ibrahim Other [employer] Other 01-09-2024 10:00-0500Diastolic blood qqojuizd60 mm[Hg] Lon Ibrahim Other [employer] Other 01-09-2024 10:00-0500Respiratory rate18 /minBrealondra Ibrahim Other [employer] Other 01-09-2024 10:00-0515YmT9% (BldA) [Mass fraction]93 % Lno Ibrahim Other [employer] Other 01-09-2024 10:00-0500Systolic blood bysnsgjq505 mm[Hg] Lon Ibrahim Other [employer] Other 12-05-2023 17:40-0500Body xjifcn338.96 cmAmbjose Mcdowell Other [employer] Other 12-05-2023 17:40-0500Body mass index (BMI) [Ratio] 38.51 kg/j7DfherKelly Mcdowell Other [employer] Other 12-05-2023 17:40-0500Body .9 [degF]Kelly Mcdowell Other [employer] Other 12-05-2023 17:40-0500Body .08 kgKelly Mcdowell Other [employer] Other 12-05-2023 17:40-0500Respiratory rate18 /minKelly Mcdowell Other [employer] Other 12-05-2023 17:40-0864EkF2% (BldA) [Mass fraction]93 % Kelly Mcdowell Other [employer] Other 11-13-2023 11:56-0500Body vjkpza309 cmMoises Willis MD Work Phone: [facility]11-13-2023 11:56-0500Body lenwpq147.08 kgMoises Willis MD Work Phone: [facility]11-13-2023 11:56-0500Diastolic blood mm[Hg]Moises Willis MD Work Phone: [place] [address]-13-2023 11:56-0500Heart rate87 /min Moises Willis MD Work Phone: [facility]11-13-2023 11:56-0500Respiratory rate 16 /Melida Willis MD Work Phone: [place] [address]-13-2023 11:56-7557CaT5% (BldA) [Mass fraction]98 %Moises Willis MD Work Phone: [facility]11-13-2023 11:56-0500Systolic blood jvoxojts587 mm[Hg]Moises Willis MD Work Phone: [facility]08-14-2023 09:26-0400Body cm Moises Willis MD Work Phone: [place] [address]-14-2023 09:26-0400Body .08 kgMoises Willis MD Work Phone: [place] [address]-14-2023 09:26-0400Diastolic blood ylvtbgwy13 mm[Hg]Moises Willis MD Work Phone: [facility]08-14-2023 09:26-0400Heart rate77 /min Moises Willis MD Work Phone: [place] [address]-14-2023 09:26-0400Respiratory rate 18 /Melida Willis MD Work Phone: [facility]08-14-2023 09:26-9070OyA7% (BldA) [Mass fraction]96 %Moises Willis MD Work Phone: [facility]08-14-2023 09:26-0400Systolic blood mcuqixwr764 mm[Hg]Moises Willis MD Work Phone: [facility]02-16-2023 11:15-0500Body iwgenz641.96 cmBrealondra Ibrahim Other [employer] Other 02-16-2023 11:15-0500Body mass index (BMI) [Ratio] 42.83 kg/h8ObibkLon Ibrahim Other [employer] Other 02-16-2023 11:15-0500Body nksqyc325.32 kgBrealondra Ibrahim Other [employer] Other 02-16-2023 11:15-0500Diastolic blood pmseativ57 mm[Hg] Lonalondra Ibrahim Other [employer] Other 02-16-2023 11:15-0500Respiratory rate16 /minBrealondra Ibrahim Other [employer] Other 02-16-2023 11:15-4452GwZ5% (BldA) [Mass fraction]95 % Lonalondra Ibrahim Other [employer] Other 02-16-2023 11:15-0500Systolic blood odyidfgp200 mm[Hg] Lonalondra Morejons Other [employer] Other 01-19-2023 11:15-0500Body momctv339.96 cmBrett Evelia Other [employer] Other 01-19-2023 11:15-0500Body mass index (BMI) [Ratio] 43.65 kg/h1Vhnhr Kuns Other [employer] Other 01-19-2023 11:15-0500Body lhqgni684.22 kgBrealondra Ibrahim Other [employer] Other 01-19-2023 11:15-0500Diastolic blood cewusrao67 mm[Hg] Lonalondra Ibrahim Other [employer] Other 01-19-2023 11:15-0500Respiratory rate16 /minBrealondra Ibrahim Other [employer] Other 01-19-2023 11:15-1232SxF9% (BldA) [Mass fraction]95 % Lonalondra Ibrahim Other [employer] Other 01-19-2023 11:15-0500Systolic blood agdaclwh930 mm[Hg] Lonalondra Ibrahim Other [employer] Other 09-16-2022 14:30-0400Body .96 cmBrealondra Ibrahim Other [employer] Other 08-09-2022 08:20-0400Blood Pressure Cecil Cheatham Jr. executive [facility] 08-09-2022 08:20-0400Respiratory rate16 /Manny Cheatham Jr. executive [facility] 06-01-2022 13:05-0400Blood Pressure LocationJENNIFER MARYJANE Executive [facility] 06-01-2022 13:05-0400Diastolic blood zknhzjah29 mm[Hg] ANGELITA PAEZ [facility] 06-01-2022 13:05-0400Heart rate79 /minJENNIFER MARYJANE [facility] 06-01-2022 13:05-0400Systolic blood wptejwxe917 mm[Hg] ANGELITA PAEZ [facility] Encounters Encounter DateEncounter [facility] ProviderFacilityStart: 12-13-2024 End: 67-68-6711kcgdxdrintHzlqi Kuns DO Work Phone: -[facility] [place]: 12-13-2024 End: 96-00-1668Vpifnnx encounter procedureLon Ibrahim DO-[facility] [place] Work Phone: Start: 12-13-2024 End: 48-88-4058lzwbznrpkyAizzc Kuns DO Work Phone: [facility] [place]: 12-13-2024 End: 47-16-5676Zavdsdu encounter procedureLon Ibrahim DO-[facility] [place] Work Phone: Start: 12-28-2023 End: 79-16-6329Drqmpzcuckqg consultation with García Willis MD Work Phone: [facility]: 12-28-2023 End: 23-45-5074yxsdsiozouBnywngz Pelle MD Work Phone: [facility] InstituteComment on above:Spinal stenosis, lumbar region with neurogenic claudication (Primary Dx); Spinal stenosis of cervical region; S/P cervical spinal fusionStart: 10-06-2023 End: 68-42-4609zkitqdkpdyWX Brett Kuns Work Phone: [facility] Work Phone: Start: 10-06-2023 End: 99-55-4617Nzrxqcp encounter procedureDO Lon Ibrahim Work Phone: [facility] Work Phone: Start: 08-03-2023 End: 27-92-7383Kmesnzo encounter procedureDO Lon Ibrahim Work Phone: [facility] Work Phone: Start: 08-03-2023 End: 64-03-1756tfdhqutoenBD Brett Kuns Work Phone: [facility] Work Phone: Start: 08-03-2023 End: 09-22-0631stsuxpymckNS Brett Kuns Work Phone: [facility] Work Phone: Start: 08-03-2023 End: 29-42-2117Febtwbu encounter procedureDO Lon Ibrahim Work Phone: [facility] Work Phone: Start: 07-14-2023 End: 85-54-7487vzwlxwafvoOTKTG ROGER KUNSFacility:[facility] Start: 07-14-2023 End: 01-74-3285Galnzmb encounter Walt Fernandes APRN.ACETYLENE TORCH BURNER Work Phone: UrologyComment on above:Hydronephrosis, unspecified hydronephrosis type (Primary Dx); Bladder wall thickening; Neurogenic bladderStart: 07-06-2023 End: 77-53-8693fehobtrefjYUCDC ROGER KUNSFacility:[facility] Start: 07-06-2023 End: 84-23-5196Oprcpqourg hospital visit by physicianUs [facility] UltrasoundComment on above:Hydronephrosis, unspecified hydronephrosis type [N13.30]Start: 87-69-5551lfgsrxdchzEebacj Radha KEENEFacility:JANAE Kingtart: 06-04-2023 End: 34-20-4324hchaodzvrcOYQUI ROGER KUNSFacility:[facility] Start: 06-04-2023 End: 08-64-5141Bywgxlk encounter aWlt Fernandes APRN.CNP Work Phone: UrologyComment on above:Hydronephrosis, unspecified hydronephrosis type (Primary Dx); Urinary tract infection without hematuria, site unspecifiedStart: 06-01-2023 End: 60-58-4960lokggulcziJIXJ SUSANFacility:[facility]: 06-01-2023 End: 01-24-7616Slbexrvoga hospital [facility] physicianUs [facility] UltrasoundComment on above:Hydronephrosis, unspecified hydronephrosis type [N13.30]Start: 36-26-3836Azqpsbhwl Derrick Campa MD Work Phone: UrologyStart: 51-19-3179Edqspwaas Derrick Campa MD Work Phone: [facility] AdultStart: 05-04-2023 End: 15-92-0044ngzzmalaurWXIO SUSANFacility:[facility] Hospitaltart: 59-16-4949Oexsf abstractHadley Campa MD Work Phone: UrologyStart: 86-29-2571Seilpyixl Derrick Campa MD Work Phone: UrologyStart: 04-19-2023 End: 66-28-2765csnjykjlzvMRKGN ROGER KUNSFacility:[facility] Start: 04-19-2023 End: 15-03-3440Zbeotnj encounter procedureApurva Campa MD Work Phone: UrologyComment on above:Bilateral hydronephrosis (Primary Dx); Bladder mass; Hydronephrosis, unspecified hydronephrosis type; Mild protein-calorie malnutrition (HCC); Morbid (severe) obesity due to excess calories (HCC)Start: 04-15-2023 End: 93-27-8895Cemlizbozoys consultation with patientActionable Findings Clinic Work Phone: c[facility] MAINStart: 04-15-2023 End: 03-37-5007khplyqaxehDWJMV ROGER KUNSRadiologyComment on above:Other hydronephrosis (Primary Dx); Bladder massStart: 04-15-2023 End: 83-85-0265Pwdvrzfkfn hospital visit by physicianUs [facility] UltrasoundComment on above:Abnormal finding of diagnostic imaging [R93.89]Start: 03-30-2023 End: 75-40-7202ybypmscjceSQCCW ROGER KUNSFacility:[facility] Start: 20-90-4990Xgjaneakb encounterAnna Dwayne PULLIAM Work Phone: RadiologyStart: 63-50-9204D-mail encounter from caregiverNicole HAWKINS-C Work Phone: c[facility] MAINStart: 40-28-9628Uduown-up encounterNicole Engle PA-C Work Phone: RadiologyComment on above:Actionable Findings Follow-UpStart: 02-16-2023 End: 09-10-1305oirhhzwrgtJjdlh Kuns Other [employer] Other Start: 42-04-1256Xdskyfx encounter Angela Ibrahim [facility] [place]Start: 01-15-2023 End: 63-31-4893Uuuhcsl encounter procedureDO Lon Ibrahim Work Phone: [facility] [place] Work Phone: Start: 01-15-2023 End: 18-69-6759nyqfjgifyqES Brett Kuns Work Phone: [facility] Work Phone: Start: 01-13-2023 End: 54-00-7697syavwwtxafSivij Kunana Other [employer] Other Start: 46-44-4652Fdvwuznyy encounterBrett LindaNortheastern Health System [facility] [place]Start: 01-12-2023 End: 96-97-4235Vhnsaqun ReferredDO Lon Ibrahim Work Phone: [facility] [place] Work Phone: Start: 01-12-2023 End: 53-08-9300levhylurouXNLEUHQAU [facility] [employer] Other Start: 85-14-7396Ziehpg outpatient visit 15 minutes Kelly [facility] ClydeStart: 01-08-2023 End: 24-97-2740mfrucczwooUzsrd Kuns Other [employer] Other Start: 18-05-1505Xfndutdky encounterBrealondra EveliaG Family Medicine [place]Start: 12-21-2022 End: 54-46-5382Fbusidt encounter Herbie Willis MD Work Phone: Spvqd InstituteComment on above:Spinal stenosis, lumbar region with neurogenic claudication (Primary Dx)Start: 12-21-2022 End: 58-61-3131Ezynspkawp hospital visit by physician Main J1-4 Work Phone: RadiologyComment on above:Spinal stenosis, lumbar region with neurogenic claudication [M48.062]Start: 11-30-2022 End: 80-34-1740pqseqfhbpzHjmyi Kuns Other [employer] Other Start: 23-79-1979Edznxgbjs encounterBrealondra Vargas [facility] [place]Start: 11-27-2022 End: 51-73-7174ofibofchwxEpltbhx Bonus PA-C Work Phone: spine InstituteComment on above:Spinal stenosis, lumbar region with neurogenic claudication (Primary Dx); Spinal stenosis of lumbar region with neurogenic claudicationStart: 11-27-2022 End: 10-82-6715Olwzdnywknlo consultation with Dagoberto Patel PA-C Work Phone: ccf [facility] MAINStart: 11-16-2022 End: 63-01-2306Vlxebaseng hospital visit by physiciani [facility] Susanne (Lg Bore/1.5t)Radiology MRIComment on above:Spinal stenosis of lumbar region, unspecified whether neurogenic claudication present [M48.061]Start: 10-16-2022 Jose Willis MD Work Phone: spine InstituteComment on above:mri dvdStart: 10-09-2022 End: 98-18-3742wjdlpbiwswIbfux Kuns Other [employer] Other Start: 94-63-1692Fmmurssea encounterBrealondra IbrahimG [facility] [place]Start: 09-24-2022 End: 64-51-0837wjrppeolupFvujs Kuns Other [employer] Other Start: 78-64-2732Lqhvdmtkt encounterBrealondra IbrahimG [facility] [place]Start: 09-21-2022 End: 69-90-8617Rxqlmzbjva hospital visit by physicianXr Main Rz0RnhfwskkqKoljjwp on above:Spinal stenosis of lumbar region, unspecified whether neurogenic claudication present [M48.061]Start: 09-21-2022 End: 06-70-6465Pdoeukd encounter Herbie Willis MD Work Phone: spine InstituteComment on above:Spinal stenosis of lumbar region, unspecified whether neurogenic claudication present (Primary Dx); Spinal stenosis in cervical region; Arm weaknessStart: 09-10-2022 End: 92-25-4098kzopkuroakSkddc Lindaana Other [employer] Other Start: 61-07-8594Ilzdsevsb encounterBrett LindaTruongRito [facility] [place]Start: 09-03-2022 End: 53-77-2539nyirqhulsfBpvnl Evelia Other [facility] [employer] Other Start: 79-46-1383Mlsbphinb encounterBrett Sam [facility] [place]Start: 07-28-2022 End: 47-49-1186jkesefboheFklbg Lynch APRN.ACETYLENE TORCH BURNER Work Phone: Spine InstituteComment on above:EmgStart: 07-28-2022 Telephone encounterBryce Lara APRN.ACETYLENE TORCH BURNER Work Phone: Spine InstituteComment on above:Patient UpdateStart: 34-26-8594Xbrszprzx encounterBryce Lara APRN.ACETYLENE TORCH BURNER Work Phone: NeurologyComment on above:MRI ReportStart: 07-16-2022 Telephone encounterBryce Lara APRN.ACETYLENE TORCH BURNER Work Phone: NeurologyComment on above:ScansStart: 07-13-2022 End: 83-41-4478tmkkwnzgasIZEYA [facility] HospitalStart: 07-13-2022 End: 91-56-8494Bjnntatznm hospital visit by [facility] CT ScanComment on above:Spinal stenosis, cervical regionStart: 41-31-6018Tkcvz abstractingUnk Pcp (Historical)NeurologyStart: 06-16-2022 End: 50-19-5956ryuuiwxlspGgjstp W RICEFacility:EU [place]walkStart: 05-18-2022 End: 32-47-2343tsvlzetjzhUMGAGMSRZKR M AGUSTÍNMer[facility] HospitalStart: 05-18-2022 End: 82-49-3423Rpwgovsxkk hospital visit by physicianMth Mri [facility] MRIComment on above:Cervical myelopathy (HCC)Start: 04-07-2022 End: 19-48-7329xyorkkmvyeMjfar Kuns Other [employer] Other Start: 98-67-9526Opvsomodx encounterBrett KunsFPG [facility] [place]Start: 03-31-2022 End: 57-88-1247sxzspzytjtZjdmg Kuns Other [employer] Other Start: 54-04-2526Ufcwrhujv encounterBrett KunsFPG [facility] [place]Start: 03-26-2022 End: 52-61-2991mywrltlysdNgesf Kuns Other [employer] Other Start: 02-65-2087Zoapcz outpatient visit 25 minutes Lonalondra MorejonanaPADDYG [facility] [place]Start: 03-13-2022 End: 75-19-6199tssshbnuddAX LON KUNSFacility:R8Ijmtc: 03-09-2022 End: 78-08-3285wpztyzsupcMjldz Kuns Other [employer] Other Start: 05-23-2242Oekcsjstu encounterBrett KunsFPG [facility] [place]Start: 02-26-2022 End: 19-90-3763kpwfaraepoHqnyo Kuns Other [employer] Other Start: 95-70-8872Ablnwt outpatient visit 25 minutes Lon LindasFPG [facility] [place]Start: 02-24-2022 End: 16-61-5335ikkmlistmaKxgeen W RICEFacility:FTMCStart: 02-24-2022 End: 94-22-1841klriwchcmuBlapuu W RICEFacility:EU [place]walkStart: 02-24-2022 End: 95-08-6741Mqj Drop offRobert W RICE [facility] Start: 02-24-2022 End: 36-90-9873Oyqwnff encounter procedureRobert W RICE [facility] Start: 02-16-2022 End: 81-47-0235xockdusuypBfybj Kuns Other [employer] Other Start: 10-72-6283Xuurkzjde encounterBrealondra Vargas [facility] [place]Start: 02-12-2022 End: 17-63-7522gitdihsikmLdilu Kuns Other [employer] Other Start: 00-20-5054Guuojyber encounterBrealondra Vargas [facility] [place]Start: 12-30-2021 End: 37-11-9585ihcloxlctfPusbqx W RICEFacility:EU [place]walkStart: 12-22-2021 End: 28-86-7300wallbhvtxpBdvqjq W RICEFacility:FTMCStart: 12-22-2021 End: 84-03-5700wgkpjbvfucUpemto W RICEFacility:EU [place]Start: 12-10-2021 End: 27-03-3137azirbyqpqzOhzkqe W RICEFacility:FTMCStart: 10-24-2021 End: 59-98-5346smgtwgjgxyKrwft Kuns Other [employer] Other Start: 80-54-8931Ngewsg outpatient visit 15 minutes Lon Vargas [facility] [place]Start: 10-16-2021 End: 32-16-5753Udxfvpa encounter procedureDO Lon Ibrahim Work Phone: [facility] [place]Start: 10-14-2021 End: 95-86-6278tayygenyouYlyut Lindas Other [facility] [employer] Other Start: 71-91-5860Xodadfamv encounterBrett EveliaFPG [facility] [place]Start: 10-10-2021 End: 62-68-4971xjzmutcacgLiduo Kuns Other [facility] [employer] Other Start: 20-14-5112Pvjlinklq encounterBrett EveliaG [facility] [place]Start: 09-17-2021 End: 64-96-9985Zgb-admission Antonio Cheatham Jr. [facility] Start: 09-16-2021 End: 07-75-1312rkzwakkbdvGhfkpu L SmithFacility:EU [place]vueStart: 09-16-2021 End: 98-55-7779Xfznbxo encounter Boom Cheatham Jr. [facility] Qasim start: 00-72-4898ebgewivgudFkajfn RICEFacility:FM [place] Start: 07-21-2021 End: 17-47-9920iiwxrswpwbVjkbot L SmithFacility:EU [place]kyStart: 07-09-2021 End: 63-25-5634zgdoobypuoMJAOBYTM E PERRYFacility:FTMCStart: 07-09-2021 End: 82-99-2827amrowhtrjcBCMJJWEZ E PERRYFacility:EU [place]vueStart: 07-09-2021 End: 93-13-7449Pcg Drop offJENNIFER E MARYJANE [facility] Start: 07-09-2021 End: 51-48-6759Qaxnqsu encounter procedureJENNIFER E MARYJANE [facility] Qasim start: 07-01-2021 End: 83-44-5421uoekbiyzxwPpbcd Kuns Other [facility] [employer] Other Start: 49-79-4020Xkokvrkxe encounterBrett KunsFPG [facility] [place]Start: 05-12-2021 End: 48-98-3678kerugbhygcLakvs Kuns Other [facility] [employer] Other Start: 71-74-1811Lzskssetm encounterBrett KunsFPG [facility] [place]Start: 04-10-2021 End: 41-64-9520dnlhwlbcudGkoaq Kuns Other [facility] [employer] Other Start: 85-06-2711Dxdllfcmm encounterBrett KunsFPG [facility] [place]Start: 02-24-2021 End: 30-16-9206czxfqlneblEdhdy Kuns Other [facility] [employer] Other Start: 18-06-4931Navmvsfhc encounterBrett KunsFPG [facility] [place]Start: 01-23-2021 End: 84-73-7823rscqxtqlneEwwaw Kuns Other [facility] [employer] Other Start: 39-55-3600Vsobjilme encounterBrett KunsFPG [facility] [place]Start: 25-13-8076Gqrigcghz encounterBrett KunsFPG [facility] [place]Start: 03-12-2020 End: 62-92-3317dkyenramgvSNBbhxxsne:UTMCStart: 12-28-2018 End: 49-27-2102Jwexeut encounter Julianne Escobar [facility]: 12-28-2018 End: 11-07-4943Odwgfqjjlu hospital visit by physicianSrudy C-Arm [address] [place] [address] RadiologyComment on above:S/P cervical spinal fusion; 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)Start: 09-03-2018 End: 75-68-8701Yooioqckbt and management of inpatientTUSHAR [facility]: 08-30-2018 End: 61-47-6736Youqkvfhvp and management of inpatientDayton VA Medical Centertart: 07-14-2018 End: 90-09-8752Mtwcpjk encounter procedureZURiverview Health Institute Procedures DateProcedureProcedure DetailPerforming ClinicianStart: 33-39-9328XY PELVIS BLADDER-NBTerri Cookie Fernandes PLACE CHANGE ROOF BOLTER.ACETYLENE TORCH BURNER Work Phone: Start: 67-39-4642Sl retroperitoneal real time w/image completeHoperi Cookie Fernandes PLACE CHANGE ROOF BOLTER.ACETYLENE TORCH BURNER Work Phone: Start: 66-73-6157Qp retroperitoneal real time w/image completeLuay Katheryn FOLEY Work Phone: Start: 03-10-0343Uc retroperitoneal real time w/image completeJanina Hadley PLACE CHANGE ROOF BOLTER.ACETYLENE TORCH BURNER Work Phone: Start: 30-18-6998Vnmrt spine lumbosacral minimum 4 viewsCarissa Amanda PEARSON Work Phone: Start: 64-41-3748Zcy spinal canal thoracic w/o contrast tailTbrenda Keith MD Work Phone: Start: 03-85-5736Bzimg entir thrc lmbr crv sac spi w/skull 2/3 vwThegaby Keith MD Work Phone: Start: 15-27-7145Yuf spinal canal cervical w/o contrast Phillip Antonio DO Work Phone: Start: 76-43-5044Dneidunyoy studiesRobert RICE Start: 79-50-6603Ugvhouwvebhubdtsc and dilation of bladderMihir Cheatham Jr. start: 34-92-2730Aomc intraperitoneal upper abdomen w/laps nosStart: 65-00-6912Hyqidjkjfwkg cholecystectomyARUNKUMAR BASKARAStart: 65-97-6736Zkknrlbobiixb resection of bladder neoplasmANGELITA PAEZ Start: 34-40-3976Obira spine cervical 2 or 3 views KAELYN AHAMMADStart: 68-24-4659Kpifl spine cervical 2 or 3 viewsJanina M Cygnor Start: 30-27-5507EGHSRAKCOL AHAMMADStart: 48-81-3837Fukoy count complete auto&auto difrntl wbcZUBAIR AHAMMADStart: 43-18-3713Gdbawoglkoqhb metabolic panelZUBAIR AHAMMADStart: 72-36-8324EZFKUUFHLE AHAMMADStart: 93-77-1259SSENPKGWB PATIENTZUBAIR AHAMMADStart: 10-53-9922JEBACIKMZT AHAMMADStart: 95-51-2794LBGB KAELYN AHAMMADStart: 83-60-4882HEFNCVSJ OXYGEN THERAPY PROTOCOLZUBAIR AHAMMAD Start: 68-64-3967KOOYE CANNULA OXYGENZUBAIR AHAMMADStart: 74-68-1657Naxpc count complete auto&auto difrntl wbcZUBAIR AHAMMADStart: 41-35-2880Enxcxmkfmtyhv metabolic panelZUBAIR AHAMMADStart: 35-71-4605ZMTVICEBBH AHAMMADStart: 62-14-8382HNQDOP AND OUTPUTZUBAIR AHAMMADStart: 18-98-0580PMCPEEOJVM AHAMMAD Start: 83-05-3658HVLPNRNLVY AHAMMADStart: 35-11-9715XWSCBROYXI AHAMMADStart: 91-38-9760LAWBMOJBSV AHAMMADStart: 72-59-4412Kpacnpguzilkmz time partial plasma/whole bloodZUBAIR AHAMMADStart: 14-37-9341Ske-scan xtr veins complete bilateral studyZUBAIR AHAMMADStart: 45-43-8070TEYHFUDNOM AHAMMADStart: 04-13-1022LHDLTYCD OXYGEN THERAPY PROTOCOLZUBAIR AHAMMADStart: 05-75-6370JFOOSL STRIP REPORTZUBAIR AHAMMADStart: 76-33-9056Xeblk count complete auto&auto difrntl wbcZUBAIR AHAMMADStart: 14-32-1908Pdwhckaikkwod metabolic panelZUBAIR AHAMMADStart: 87-45-4075APVPVEJDYI AHAMMADStart: 34-08-9363Xqnfghkmoptqgj time partial plasma/whole bloodZUBAIR AHAMMADStart: 64-63-7718JBMMXK AND OUTPUTZUBAIR AHAMMADStart: 63-31-3462SEOVITWYVY AHAMMADStart: 43-09-9082Bdtlkoiidehpyv time partial plasma/whole bloodZUBAIR AHAMMADStart: 21-74-4817SMVQXHGGXN AHAMMAD Start: 43-65-1489GTLLKHEMCP AHAMMADStart: 64-99-1151FEWUMCTCSU AHAMMADStart: 11-27-5699Sljtc count complete auto&auto difrntl wbcZUBAIR AHAMMADStart: 37-75-3933Fcewhygxvatca metabolic panelZUBAIR AHAMMADStart: 09-04-2018 Thromboplastin time partial plasma/whole bloodZUBAIR AHAMMADStart: 09-04-2018 Culture bacterial quanttative colony count urineZUBAIR AHAMMADStart: 09-04-2018 INITIATE OXYGEN THERAPY PROTOCOLZUBAIR AHAMMADStart: 92-99-9294EKEKXT AND OUTPUT KAELYN AHAMMADStart: 43-21-8327Uxmhtsfwcstzgk time partial plasma/whole blood KAELYN AHAMMADStart: 89-96-8765Axbvg dip stick/tablet reagent auto microscopy KAELYN AHAMMADStart: 51-47-0450SDAZILI ISOLATIONZUBAIR AHAMMADStart: 09-03-2018 Urnls dip stick/tablet rgnt auto w/o microscopyZUBAIR AHAMMADStart: 09-03-2018 DIET GENERALZUBAIR AHAMMADStart: 33-17-8336Eekucsiloutsrg time partial plasma/whole bloodZUBAIR AHAMMADStart: 62-05-5859PAVBAXQS PATIENTZUBAIR AHAMMAD Start: 16-77-7351Mnk-scan xtr veins complete bilateral studyZUBAIR AHAMMADStart: 81-24-1324Epvsv of troponin quantitativeZUBAIR AHAMMADStart: 12-18-8372Zgupj count complete automatedZUBAIR AHAMMADStart: 58-89-2428UIWKJVXT SPECIMENZUBAIR AHAMMADStart: 11-63-8201Xqibvlzumtihgs time partial plasma/whole bloodZUBAIR AHAMMADStart: 97-10-4631TY EVAL AND TREATZUBAIR AHAMMADStart: 81-89-1126VB EVAL AND TREATZUBAIR AHAMMADStart: 99-66-1652WKTTVPP HEELS OFF OF BEDZUBAIR AHAMMAD Start: 79-21-7387IWIQ OF BED 60 DEGREES OR LESSZUBAIR AHAMMADStart: 09-03-2018 NURSING COMMUNICATIONZUBAIR AHAMMADStart: 45-54-2706ITDK PATIENTZUBAIR AHAMMAD Start: 92-83-8140Dhdj tthrc r-t 2d w/wom-mode compl spec&colr dZUBAIR AHAMMAD Start: 64-66-1812XPEPBPRA OXYGEN THERAPY PROTOCOLZUBAIR AHAMMADStart: 09-03-2018 Iadna s aureus methicillin resist amp probe tqZUBAIR AHAMMADStart: 90-93-241915 hydroxy includes fractions if performedZUBAIR AHAMMADStart: 02-59-9064Ivvrd of lactateZUBAIR AHAMMADStart: 16-09-7670Rwxcw of magnesiumZUBAIR AHAMMADStart: 83-15-1552Jmoit of thyroid stimulating hormone tshZUBAIR AHAMMADStart: 00-54-5894Vhgrp of troponin quantitativeZUBAIR AHAMMADStart: 23-21-8620Pmxru count complete auto&auto difrntl wbcZUBAIR AHAMMADStart: 28-93-2903Yziqyolgudvtq metabolic panelZUBAIR AHAMMADStart: 46-70-1907Pwkobgr function panelZUBAIR AHAMMADStart: 59-21-7745Rjagn gases any combination ph pco2 po2 co2 xvr1BCRODV AHAMMADStart: 41-18-4428VJCN CODEZUBAIR AHAMMADStart: 14-85-6971AKJCJ INTERMITTENT PNEUMATIC COMPRESSION DEVICEZUBAIR AHAMMADStart: 00-82-0992BJPWMX FOR NO CHEMICAL VTE PROPHYLAXISZUBAIR AHAMMADStart: 91-23-4277VMWQBZXKD MONITORINGZUBAIR AHAMMADStart: 64-49-2594CEXNB WEIGHTSZUBAIR AHAMMADStart: 40-36-2040FEKXFXI HOBZUBAIR AHAMMADStart: 36-04-0350LAOYCFMR OXYGEN THERAPY PROTOCOLZUBAIR AHAMMADStart: 76-10-2777DXZFRD AND OUTPUTZUBAIR AHAMMADStart: 93-55-2430OH CONSULT TO CASE MANAGEMENTZUBAIR AHAMMADStart: 09-03-2018 NEURO/VASCULAR CHECKSZUBAIR AHAMMADStart: 49-08-2832NDOVAA PHYSICIAN (SPECIFY) KAELYN AHAMMADStart: 96-68-0850MODFD SIGNSZUBAIR AHAMMADStart: 83-26-5180IP CONSULT TO CARDIOLOGYZUBAIR AHAMMADStart: 69-64-5639WNOPHT AND WEIGHTZUBAIR AHAMMADStart: 57-27-4181EJFEEAP STATUS (FROM ED OR OR/PROCEDURAL)KAELYN AHAMMAD Start: 57-12-3126Teq routine ecg w/least 12 lds w/i&rZUBAIR AHAMMADStart: 00-28-4755QGZ REPORTZUBAIR AHAMMADStart: 17-62-2811Jpygq of troponin quantitativeZUBAIR AHAMMADStart: 13-52-0544Grukd metabolic panel calcium total KAELYN AHAMMADStart: 56-46-0826Xylgy count complete auto&auto difrntl wbcZUBAIR AHAMMADStart: 55-82-8553WRZQR NATRIURETIC PEPTIDEZUBAIR AHAMMADStart: 09-03-2018 Prothrombin timeZUBAIR AHAMMADStart: 29-85-9667Qdvfnfemzshodk time partial plasma/whole bloodZUBAIR AHAMMADStart: 37-74-9110QL CONSULT TO CRITICAL CARE KAELYN AHAMMADStart: 09-88-4915EE CONSULT TO NEUROSURGERYZUBAIR AHAMMADStart: 57-55-3601Glpmmtg-Feil sequence (disorder)ANGELITA PAEZ Start: 77-83-4092ABHSREEKP SPIROMETRY RTZUBAIR AHAMMAD Start: 81-02-1755RVJYCOLWA SPIROMETRY RTZUBAIR AHAMMADStart: 01-86-3779AMEOEHYZM SPIROMETRY RTZUBAIR AHAMMADStart: 21-86-5733FXPDAAADL PATIENTZUBAIR AHAMMAD Start: 38-25-4502UBOORPEKO SPIROMETRY RTZUBAIR AHAMMADStart: 24-21-2072Omnxv spine cervical 2 or 3 viewsZUBAIR AHAMMADStart: 64-05-0434YAJTQESJU SPIROMETRY RTZUBAIR AHAMMADStart: 85-35-9053TH CONSULT TO PSYCHIATRYZUBAIR AHAMMADStart: 76-35-4216XWZMVPNXR SPIROMETRY RTZUBAIR AHAMMADStart: 68-88-0193NKRTVPQH OXYGEN THERAPY PROTOCOLZUBAIR AHAMMADStart: 14-02-0254BCARWFLWU SPIROMETRY RTZUBAIR AHAMMADStart: 00-20-8406Znkcs count complete automatedZUBAIR AHAMMADStart: 28-62-2382KZFOBQZ HEELS OFF OF BEDZUBAIR AHAMMADStart: 51-92-1158ACXE OF BED 60 DEGREES OR LESSZUBAIR AHAMMADStart: 10-18-8318TRYFAOI COMMUNICATIONZUBAIR AHAMMADStart: 11-33-9300TWIM PATIENTZUBAIR AHAMMADStart: 81-60-3136IATCZJEA REMOVALZUBAIR AHAMMADStart: 96-78-1994WNJLAG AND OUTPUTZUBAIR AHAMMADStart: 58-35-7325AJKIT SIGNSZUBAIR AHAMMADStart: 55-13-1220NVIDVGN COMMUNICATIONZUBAIR AHAMMADStart: 13-53-0239XRPXIYP DIET TOLERATED (NURSING COMMUNICATION)KAELYN AHAMMADStart: 22-20-6512VXVS CLEAR LIQUIDZUBAIR AHAMMADStart: 08-31-2018 ENCOURAGE DEEP BREATHING AND COUGHINGZUBAIR AHAMMADStart: 76-83-3982ON EVAL AND TREATZUBAIR AHAMMADStart: 03-55-3792QO EVAL AND TREATZUBAIR AHAMMADStart: 15-84-3874XZYVIEBMA MONITORINGZUBAIR AHAMMADStart: 21-59-3157JJLVZEXP TOLERATEDZUBAIR AHAMMADStart: 43-74-6810YLZMGSUP PATIENTZUBAIR AHAMMADStart: 51-54-6124ZVWS CODEZUBAIR AHAMMADStart: 86-15-8245RBFQULTWR SPIROMETRY RTZUBAIR AHAMMADStart: 95-04-6319BWCGPTCC OXYGEN THERAPY PROTOCOLZUBAIR AHAMMADStart: 38-57-7685YDDLW CAREZUBAIR AHAMMADStart: 72-71-7823YYWUXA AND OUTPUTZUBAIR AHAMMADStart: 56-77-9414IBVCV/VASCULAR CHECKSZUBAIR AHAMMADStart: 08-31-[address] INTERMITTENT PNEUMATIC COMPRESSION DEVICEZUBAIR AHAMMADStart: 08-31-2018 NOTIFY PHYSICIAN (SPECIFY)KAELYN AHAMMADStart: 39-39-0509IFFFV SIGNSZUBAIR AHAMMADStart: 46-39-6281VVXBA CERVICAL COLLARZUBAIR AHAMMADStart: 08-30-2018 PATIENT STATUS (FROM ED OR OR/PROCEDURAL)KAELYN AHAMMADStart: 82-53-8939QCTFNTFH PATIENTZUBAIR AHAMMADStart: 99-34-4804Fuczs spine cervical 2 or 3 viewsZUBAIR AHAMMADStart: 40-44-0566Bqimshdcnu microscopic onlyZUBAIR AHAMMADStart: 35-29-7662Tbkaq dip stick/tablet rgnt auto w/o microscopyZUBAIR AHAMMADStart: 90-22-7210Ivirxyv bacterial quanttative colony count urineZUBAIR AHAMMADStart: 38-38-6842VJMZ AND SCREENZUBAIR AHAMMADStart: 20-67-7741Fxq spinal canal cervical w/o contrast matrlZUBAIR AHAMMADBariatric surgery service (qualifier value)ANGELITA PAEZ CystoscopyANGELITA MARYJANE History of cholecystectomyS/P cholecystectomyDO [facility] Work Phone: Pericardial effusion (disorder)ANGELITA PAEZ Pulmonary embolism (disorder)ANGELITA PAEZ Comment on above:[facility]nsillectomy and adenoidectomyTAMMIEDZIL[facility] Plan of Treatment DateCare ActivityDetailAuthorStart: 02-95-1758Zyfhs panelLipidsBON SECOURS MARY IMMACULATE HOSPITALStart: 23-73-6487Xaeekdmi ScreeningDiabetes ScreeningSt. Rita'S Hospital Start: 73-64-4825Elqrxhxisjmto metabolic 2000 panel - Serum or PlasmaAshtabula General Hospitaltart: 38-42-4117FbttmefqjAshtabula General Hospitaltart: 01-18-2024 End: 87-50-9347Ohmbvpi encounter qclguowvc35/10/2024 3:00 PM EST Office Visit Urology [address] [place] [address] Heather Fernandes, [employer] [address] [place] [address] Return in about 6 months (around 01/13/2024) for rto for evalution of neurogenic bladderr, hydro, with US UA, culture, cytology prior.UrologyComment on above:Return in about 6 months (around 01/13/2024) for rto for evalution of neurogenic bladderr, hydro, with US UA, culture, cytology prior.Start: 01-10-2024 End: 03-65-3244Zsbunha encounter fdsdardtp62/02/2024 3:15 PM EST Appointment Radiology [address] [place] [address] US kidney/BladderRadiologyComment on above:US kidney/BladderStart: 01-10-2024 End: 43-72-0780vfipnepnvd70/02/2024 3:00 PM EST Results Only [facility] Laboratory [address] [place] [address] labsLorain [facility] LaboratoryComment on above:labsStart: 01-09-2024 End: 44-34-8271Ryjoecpk identified in Urine by CultureURINE CULTURE Microbiology Routine Bladder wall thickening Expected: 01/09/2024, Expires: 04/09/2024 [facility] HospitalComment on above:Expected: 01/09/2024, Expires: 04/09/2024Start: 01-09-2024 End: 46-41-1466VGISHUVU NON-GYNCYTOLOGY NON-CLERICAL INVESTIGATOR Lab Routine Bladder wall thickening Expected: 01/09/2024, Expires: 04/09/2024[facility] ClinicComment on above:Expected: 01/09/2024, Expires: 04/09/2024Start: 01-09-2024 End: 78-95-0358Ovqeaeurvq complete panel - UrineURINALYSIS, WITH MICROSCOPIC Lab Routine Bladder wall thickening Expected: 01/09/2024, Expires: 04/09/2024 [facility] Work Phone: Comment on above:Expected: 01/09/2024, Expires: 04/09/2024Start: 01-09-2024 End: 64-89-3151GQ Kidney - bilateral and Urinary bladderUS KIDNEY/BLADDER Radiology Routine Hydronephrosis, unspecified hydronephrosis type Expected: 01/09/2024, Expires: 08/12/2024[facility] ClinicComment on above:Expected: 01/09/2024, Expires: 08/12/2024Start: 12-28-2023 End: 51-29-5645Oggasd-up rpznafkcu58/19/2024 3:00 PM [facility] [address] [place] [address] Moises Willis MD [address] [id number] 1 year follow upSmontgomery InstituteComment on above:1 year follow upStart: 10-10-2023 Covid-19 Vaccine ( season)Covid-19 Vaccine ( season) [facility]: 64-15-4011Iehzirotu vaccinationInfluenza Vaccine (#1) [facility]: 07-14-2023 End: 07-69-7833Taabhro encounter azojjnqct92/05/2024 3:30 PM EDT Office Visit Urology [address] [place], [place] [id number] Heather Fernandes, PL[address] [employer].ACETYLENE TORCH BURNER [address] [place] [address] f/u after USUrologyComment on above:f/u after USStart: 07-06-2023 End: 09-78-7583Mxxqset encounter obfqnehqn21/28/2024 1:00 PM EDT Appointment Ultrasound [address] [place] [address] Mzwitxnnaadwek, unspecified hydronephrosis type [N13.30]UltrasoundComment on above: Hydronephrosis, unspecified hydronephrosis type [N13.30]Start: 07-04-2023 End: 11-97-2915TB Kidney - bilateral and Urinary bladderUS KIDNEY/BLADDER Radiology Routine Hydronephrosis, unspecified hydronephrosis type Expected: 07/04/2023, Expires: 07/03/2024[facility] Work Phone: Comment on above:Expected: 07/04/2023, Expires: 07/03/2024Start: 07-04-2023 End: 08-98-4464NR Urinary bladderUS PELVIS BLADDER Radiology Routine Hydronephrosis, unspecified hydronephrosis type Expected: 07/04/2023, Expires: 07/03/2024[facility] CenterComment [facility]:Expected: 07/04/2023, Expires: 07/03/2024Start: 06-04-2023 End: 08-85-5443Nucwkpg encounter nwsbqjucp87/26/2024 1:00 PM EDT Office Visit Urology [address] [place] [address] Heather Fernandes, PL[address] [employer].ACETYLENE TORCH [address]URNER [address] [place] [address] Schedule follow-up office visit with nurse practitioner in 1 month.Urology Comment on above:Schedule follow-up office visit with nurse practitioner in 1 month.Start: 04-19-2023 End: 03-17-9563Bfvdnccr identified in Urine by CultureOhio Valley Hospital Work Phone: Comment on above:Expected: 04/19/2023 (Approximate), Expires: 07/19/2023Start: 04-19-2023 End: 16-45-2398QW Kidney WO and W contrast IVCT UROGRAM WO/W IVCON Radiology Routine Hydronephrosis, unspecified hydronephrosis type Expected: 04/19/2023 (Approximate), Expires: 05/18/2024[facility] Work Phone: Comment on above:Expected: 04/19/2023 (Approximate), Expires: 05/18/2024Start: 04-19-2023 End: 45-39-8175NOZWQARK NON-GYNOhio Valley Hospital Work Phone: Comment on above:Expected: 04/19/2023 (Approximate), Expires: 07/19/2023Start: 04-19-2023 End: 14-63-0197KRWJLTGBHG, REFLEX MICROSCOPICOhio Valley Hospital Work Phone: Comment on above:Expected: 04/19/2023 (Approximate), Expires: 07/19/2023Start: 21-74-6277Rzsbb screenLipid screenCoshocton Regional [facility], [place] Start: 25-01-7403Ykfvyalokq Health ScreeningBehavioral Health ScreeningKettering Health [facility] Memorialtart: 91-50-9639Ldjxqyaqmy AssessmentDepression AssessmentK[facility]tering Health [facility] Memorialtart: 38-23-5918NQdH/Tdap/Td vaccine (2 - Td or Tdap)DTaP/Tdap/Td vaccine (2 - Td or Tdap)[facility]Start: 50-24-0875UTpV/Tdap/Td vaccine (2 - Td)DTaP/Tdap/Td vaccine (2 - Td)[place], [place]: 13-56-5801Bteyg microalbumin profileDTaP,Tdap,Td Vaccine (2 - Td or Tdap)[facility]: 06-79-7466Aknpf cultureUrine CultureAshtabula General Hospitaltart: 49-08-1257Gnoln-19 Vaccine ( season)Covid-19 Vaccine ( season)[facility]: 55-91-9373Gssbcarto vaccinationSt. Rita'S Hospital Start: 31-31-8292EGPHQELBOI ASSESSMENTDEPRESSION ASSESSMENTSt. Rita'S Hospital Start: 69-59-0817Jqtjnaff ScreeningDiabetes ScreeningK[facility]tering Health [facility] Memorialtart: 66-22-7961CVWJW-19 VACCINE (4 - Booster for Moderna series)COVID-19 VACCINE (4 - Booster for Moderna series)[facility]: 04-75-7533KWKPO-19 VACCINE (4 - Moderna series)COVID-19 VACCINE (4 - Moderna series)[facility]: 96-29-8662Hdfhqolnfxrn Vaccine: 50+ (2 of 2 - PCV)Pneumococcal Vaccine: 50+ (2 of 2 - PCV)[facility]: 81-38-7226Ldwtrqiex for malignant neoplasm of breastBreast cancer screenBON K[facility]DRED [facility]OSPITAL DAYTONStart: 61-15-8081Qnuvwahg vaccine (1 of 2)Shingles vaccine (1 of 2)[facility]TONStart: 47-95-5786QCUBHGNP VACCINE (1 of 2)SHINGRIX VACCINE (1 of 2)[facility] Start: 02-23-2019 End: 48-85-6502Mnrrte VisitMercy Min Invasive Bariatric SurgStart: 10-09-2018 Influenza vaccinationFlu vaccine (#1)[facility], [place]Start: 10-27-8252Yabwll Wellness Visit (AWV)Annual Wellness Visit (AWV)[facility]ITALStart: 49-51-2523SWSOUYUST (FIT-DNA)COLOGUARD (FIT-DNA)[facility]: 88-53-2621UdxuizgexdlKDGQHKOIGCLUvcyyvrks ClinicStart: 20-18-5630JSWFTMHIDH CANCER SCREENINGCOLORECTAL CANCER SCREENINGK[facility] Memorialtart: 67-46-1564WU COLONOGRAPHYCT COLONOGRAPHYK[facility]tering Health [facility] Memorialtart: 93-49-0116MUIAIBVK SCREEN DIABETES SCREENKettering Health Greene Memorialtart: 80-24-9419Dnfiplcr ScreeningDiabetes ScreeningK[facility]tering Health [facility] Memorialtart: 12-11-1067RGZTZ OCCULT BLOODFECAL OCCULT BLOOD [facility]: 11-09-6554Mhuqu 1996 panel - Serum or PlasmaLipid ScreeningK[facility]tering Health [facility] Memorialtart: 17-45-2333Murbo panelLipid ScreeningK[facility]tering Health [facility] Memorialtart: 21-10-6352XWGNB SCREENLIPID SCREENK[facility]tering Health [facility] Memorialtart: 2014 Screening for malignant neoplasm of colonSentara Northern Virginia Medical Centerart: 66-38-1106KDNMROWAKHLFDQKBMVFFOOJJJAYdplhwpmg ClinicStart: 50-48-0169Spkjwgjiojk [facility]: 23-01-7306Sygtsudgt for malignant neoplasm of breast Mammogram ScreeningK[facility]tering Health [facility] Memorialtart: 81-71-9050BYW TESTINGHPV TESTING [facility]: 48-21-9504Dypxdaqbo for malignant neoplasm of cervixBON SECOURS [facility]ARY [facility] HOSPITALStart: 57-93-7462Rtxjdcdc cancer screenCervical cancer screenAdena Fayette Medical Centerart: 29-42-4870AEI TESTINGPAP TESTINGK[facility] Health [facility] Memorialtart: 65-98-3651Tsfnaojnh for malignant neoplasm of cervixSentara Northern Virginia Medical Centerart: 00-17-7680Ircmbmqbj B Vaccine (1 of 3 - 19+ 3-dose series) Hepatitis B Vaccine (1 of 3 - + 3-dose series)[facility]: 15-78-0042Imhdc microalbumin profileDTAP,TDAP,TD (1 - Tdap)[facility] Start: 44-38-6588Xwyublc ScreeningAnxiety ScreeningK[facility]tering Health [facility] Memorialtart: 75-68-6149Fikdheeanr ScreeningDepression ScreeningK[facility] Health [facility] Memorialtart: 67-60-8031Tzaknvmkn C screeningBON SECOURS [facility] HOSPITALStart: 07-28-1987 HEPATITIS C SCREENINGHEPATITIS C SCREENINGK[facility]tering Health [facility] Memorialtart: 73-12-1978NPL SCREENINGHIV SCREENINGK[facility]tering Health [facility] Memorialtart: 17-12-4019DQR screeningHIV ScreeningK[facility]tering Health [facility] Memorialtart: 89-76-5907TNV screenHIV screenAdena Fayette Medical Centerart: 45-89-3903TYW screeningHIV screenBON [facility]OURS [facility] HOSPITALStart: 70-86-4483Bxrfvnxooh MonitoringDepression MonitoringBON [facility]OURS [facility] Start: 90-34-8081QAJULCHTH B (1 of 3 - 3-dose series)HEPATITIS B (1 of 3 - 3- dose series)[facility]: 07-54-5482Mkmfnyron B Vaccine (1 of 3 - 3- dose series)Hepatitis B Vaccine (1 of 3 - 3-dose series)[facility] Albumin/Globulin ratioAdena Regional Medical CenterAnion gap measurement [facility] End: 69-85-8533Dgfsiheh identified in Urine by CultureURINE CULTURE Microbiology Routine Urinary tract infection without hematuria, site unspecified 5 Occ urrences starting 06/04/2023 until 5C[facility]sw[facility] ClinicComment on above:5 Occurrences starting 06/04/2023 until 06/03/2024asophils [#/volume] in Blood by Automated [facility] HospitalBasophils/100 leukocytes in Blood by Automated [facility] HospitalCalculated LDL cholesterol levelAdena Regional Medical CenterCholesterol.total/Cholesterol in HDL [Mass Ratio] in Serum or PlasmaAdena Regional Medical Center Comprehensive metabolic 1999 panel - Serum or PlasmaAdena Regional Medical CenterComprehensive metabolic 2000 panel - Serum or [facility] End: 15-87-4580CG CERVICAL SPINE WO CONTRASTBON K[facility]DRED [facility] Work Phone: Comment on above:1 Occurrences starting 07/13/2022 until 07/13/2022 End: 01-97-5953He lumbar spine w/o contrast materialCT LUMBAR SPINE WO IVCON Radiology Routine Spinal stenosis of lumbar region with neurogenic claudication 1 Occurrences starting 11/27/2022 until 12/27/2023[facility] Work Phone: Comment on above:1 Occurrences starting 11/27/2022 until 12/27/2023 End: 39-70-6250HYQ(NEURO/NI)EMG(NEURO/NI) EMG Routine Cervical disc disorder with radiculopathy Right arm weakness 1 Occurrences starting 07/22/2022 until 07/23/2023[facility] Work Phone: Comment on above:1 Occurrences starting 07/22/2022 until 07/23/2023Eosinophils/100 leukocytes in Blood by Automated [facility] HospitalErythrocyte distribution width [Ratio] by Automated count [facility] CenterErythrocytes [#/volume] in BloodAdena Regional Medical CenterGlobulin [Mass/volume] in SerumAdena Regional Medical CenterGlomerular filtration rate [Volume Rate/Area] in Serum, Plasma or Blood by CreatinineAdena Regional Medical CenterGlucose measurement estimated from glycated hemoglobinAdena Regional Medical CenterGlucose measurement estimated from glycated hemoglobinAdena Regional Medical CenterHematocrit [Volume Fraction] of BloodAdena Regional Medical CenterHemoglobin [Mass/volume] in BloodAdena Regional Medical CenterHemoglobin A1c/Hemoglobin.total in [facility] HospitalLeukocytes [#/volume] corrected for nucleated erythrocytes in Blood by Automated coun [facility] CenterLeukocytes [#/volume] in BloodAdena Regional Medical CenterLymphocytes [#/volume] in Blood by Automated count [facility] CenterLymphocytes/100 leukocytes in Blood by Automated [facility] HospitalMCH [Entitic mass] by Automated countAdena Regional Medical CenterMCHC [Mass/volume] by Automated count [facility] CenterMCV [Entitic volume] by Automated count [facility] CenterMonocytes [#/volume] in Blood by Automated countAdena Regional Medical CenterMonocytes/100 leukocytes in Blood by Automated countAdena Regional Medical Center End: 94-35-9742Ozh spinal canal lumbar w/o contrast materialMRI LUMBAR SPINE WO IVCON Radiology Routine Spinal stenosis of lumbar region, unspecified whether ne urogenic claudication present 1 Occurrences starting 09/21/2022 until 10/21/2023 [facility] Work Phone: Comment on above:1 Occurrences starting 09/21/2022 until 10/21/2023 End: 94-18-0450Xqa spinal canal thoracic w/o contrast matrlMRI THORACIC SPINE WO IVCON Radiology Routine Spinal stenosis of lumbar region, unspecified whether neurogenic claudication present 1 Occurrences starting 09/21/2022 until 10/21/2023[facility] Work Phone: Comment on above:1 Occurrences starting 09/21/2022 until 10/21/2023Neutrophils [#/volume] in Blood by Automated countAdena Regional Medical CenterNeutrophils/100 leukocytes in Blood by Automated count [facility] CenterNucleated erythrocytes [Presence] in Blood by Automated countAdena Regional Medical CenterPlatelet mean volume [Entitic volume] in Blood by Automated [facility] HospitalPlatelets [#/volume] in BloodAdena Regional Medical Center End: 50-11-0391Wtrta spine lumbosacral minimum 4 viewsXR LUMBAR MOTION 4V AP/LAT/ FLEX/EXT Radiology Routine Spinal stenosis, lumbar region with neurogeni c claudication 1 Occurrences starting 11/27/2022 until 4CMagruder Memorial Hospital Work Phone: Comment on above:1 Occurrences starting 11/27/2022 until 12/27/2023 End: 58-45-6604Vgqkkcqbsl complete panel - UrineURINALYSIS, WITH MICROSCOPIC Lab Routine Urinary tract infection without hematuria, site unspecified 5 Occurrences starting 06/04/2023 until 5CUpper Valley Medical CenterComment on above:5 Occurrences starting 06/04/2023 until 05/09/2024Urine [facility] CenterVLDL cholesterol measurementVanderbilt University Bill [facility]AINAd[facility]Health [facility] Immunizations Immunization DateImmunizationNotesCare TkbeufdxYoetddkt94-54-7293Apg Shot - Documentation Purposes OnlyLon Ibrahim Other [facility]10-23-2023COVID-19 Vaccine Pfizer - Documentation Purposes OnlyLon Ibrahim Other [facility]10-23-2023Influenza, injectable, [place]in [place] Canine Kidney, preservative free, quadrivalentDO Lon Ibrahim Work Phone: [facility]10-23-2023influenza virus vaccine, unspecified formulationMoises Willis MD Work Phone: [facility]S HospitalZtuamt13-21-3138cswgzyeuh virus vaccine, unspecified formulationRobert YECENIA [facility] [place] 859080-14-2022influenza, injectable, quadrivalent, preservative freeDO Lon Ibrahim Work Phone: [facility]10-14-2022SARS-CoV-2 (COVID-19) mRNAMUL.ORD!r95976Gobrcb YECENIA [facility] [place] 859082-15-2021SARS-CoV-2 (COVID-19) mRNA-1273 vaccineRobert YECENIA [facility]04-17-2021COVID-19 Vaccine Moderna - Documentation Purposes OnlyBrett Kuns Other [facility]03-20-2021COVID-19 Vaccine Moderna - Documentation Purposes OnlyBrett Kuns Other [facility]01-01-2021SARS-CoV-2 (COVID-19) mRNA-1273 vaccineJENATI PAEZ [facility] comment on above:Result Comment: pt is fully vaccinated but does not know the datesResult Comment: pt is fully vaccinated but does not know the elxni41-13-0684oonjqrdtu virus vaccine, unspecified formulationJENATI PAEZ [facility] 10433087-91-5551zzsawnzhc, injectable, quadrivalent, contains preservativeBrett Kuns Other [facility]10-13-2020influenza virus vaccine, unspecified formulationRobert Spins.FM [facility] [place] 859080-13-2020influenza, injectable, quadrivalent, preservative freeDO Lon Kuns Work Phone: [facility]10-06-2019influenza virus vaccine, unspecified formulationRobert Spins.FM [facility] [place] 859080-06-2019influenza, injectable, quadrivalent, contains preservativeDO Lon Kuns Work Phone: [facility]04-04-2018Toradol per 15 mgBrett Kuns Other [employer] Other 368090-57-2591Wwrmvww per 15 mgBrett Kuns Other [place] [employer] Other 10610492-39-4665piuqdcgkj virus vaccine, unspecified formulationRobert RICE [facility] [place] 859080-05-2017influenza, injectable, quadrivalent, preservative freeDO Lon Kuns Work Phone: [facility]10-05-2017influenza, injectable, quadrivalent, contains preservativeBrett Kuns Other [facility]10-05-2017Toradol per 15 mgBrett Kuns Other [place] [employer] Other 11247524-52-5877calsbbnlj virus vaccine, unspecified formulationRobert RICE [facility] [place] 859081-09-2016influenza, injectable, quadrivalent, preservative freeDO Lon Kuns Work Phone: [facility]09-24-2015Toradol per 15 mgBrett Kuns Other [place] [employer] Other 11776036-83-3179vqvxuebll virus vaccine, unspecified formulationRobert RICE [facility] [place] 859081-13-2014influenza, seasonal, injectableDO Lon Kuns Work Phone: [facility]01-01-2014tetanus toxoid, reduced diphtheria toxoid, and acellular pertussis vaccine, adsorbedStv 2[facility] HospitalyComment on above: Result Comment: 2021-12-22: EXTERNAL ADMIN: PT ELH70-81-0881lsebxdhof virus vaccine, unspecified formulationRobert RICE [facility]y10-23-2013influenza, seasonal, injectableDO Lon Kuns Work Phone: [facility]11-14-2012influenza virus vaccine, unspecified formulationRobert RICE [facility] [place] 859081-14-2012influenza, seasonal, injectableDO Lon Kuns Work Phone: [facility]10-18-2011influenza virus vaccine, unspecified formulationRobert RICE [facility]y10-18-2011influenza, seasonal, injectableDO Lon Kuns Work Phone: [facility]01-20-2010novel vtsfiuxfg-D2Z0-83, preservative-free, injectableDO Lon Kuns Work Phone: [facility]11-05-2008 pneumococcal polysaccharide vaccine, 23 valentRobert RICE [facility]y11-04-2008influenza, wholeRobert RICE [facility] HospitalyNEGATED: Highlighted row has not occurred!84-47-9646QZIV-CoV-2 mRNA (tozinameran 5y-11y) vaccineJENNIFER MARYJANE [facility] NEGATED: Highlighted row has not occurred!10-27-2016 Toradol per 15 mgBrett Kuns Other [facility] [employer] Other Payers DatePayer CategoryPayerPolicy [id number] 2023Medicare [id number] 2019MedicaidMEDICAID [place] MEDICAID [facility] DEPT OF JOB xxxxxxxxxxxx 2018-Present [phone] [address] [place], [place] [id number] [id number] 2019MedicareMEDICARE MEDICARE PART A AND B xxxxxxxxxxx 2018-Present [phone] [address] [address] [place], [place]ub[place]nlk [id number] [id number] 2015 [id number] 2.0.1.512753.[id number] 2.0.1.548157.3.57[id number] 2.0.1.136489.3.57[id number] 2.0.1.982240.3.57[id number] 2.16.840.1.276008.3.57[id number] 2.16.840.1.994758.3.57[id number] 2.16.840.1.021627.3.57[id number] 2.16840.1.045004.3.57[id number] 2.16840.1.428810.3.57[id number] 2.840.1.383019.3.57[id number] 2.840.1.628512.3.57[id number] 2.0.1.735470.3.57[id number] 2.0.1.200553.3.57[id number] 2.840.1.066638.3.57[id number] 2.0.1.146425.3.57[id number] 2.840.1.694693.3.57[id number] 2.840.1.904821.3.57[id number] 2.840.1.071735.3.57[id number] 2.840.1.004357.3.57[id number] 2.16840.1.698718.3.57[id number] 2.16.840.1.449990.3.57[id number] 2.16.840.1.665029.3.57[id number] 2.16840.1.356569.3.579.2.173 [id number] 2.16.840.1.162763.19 Private Health [id number]-[id number] pj50dovi-m468-2325-[id number] 2.840.1.1[id number] 2.16840.1.028578.3.579.2.531 [id number] 2.16840.1.315184.3.579.2.531 Social History DateTypeDetailFacilityStart: 12-28-2018 End: 80-21-2933Yszndzh smoking status NHISNever smokerSt. [facility]: 12-28-2018 End: 79-09-8743Dlaivpj intakeCurrent non-drinker of alcohol (finding)[facility]: 77-85-6133Lhh Assigned At BirthNot on [facility]: 09-21-2022 End: 21-84-4798OhiiliBbrbk [employer] Other Start: 88-70-1956Rak Assigned At BirthFeHolzer Medical Center – JacksonTobacco smoking statusNeverExecutive [facility] of [facility]: 07-02-2016 End: 26-36-8082Invidhe use and exposureSmokeless tobacco non-userBON SECWILSON [facility]ALTH Work Phone: Tobacco smoking status NHISTobacco smoking consumption unknownKettering Health Greene Memorialtart: 06-29-2022 End: 49-93-8459Qcyxatk intakeLifetime non-drinker (finding)[facility] Start: 09-21-2022 End: 54-19-9897Pmjawyq of Social functionKettering Health Greene Memorialtart: 28-28-1716Uepyeu identityIdentifies as female gender (finding)[facility] MemorialexFemale (finding)[facility] Medical Equipment Procedure CodeEquipment CodeEquipment Original TextEquipment IdentifierDates Bailey-Putty Progenix Plus [id number]: 12-63-7598Jeewoi Stapler [address] [id number]_cybKnvnr: 41-66-3645Yvobxx Stapler [address] [id number]_xzp Start: 58-27-8190Dsftcc Stapler [address] [id number]_aseLqjuo: 06-21-2017 Reload Stapler [address] [id number]_hrsGfrwq: 67-01-6914Qodjvl [place] Blk [id number]_impStart: 43-99-8296Dyxibs [place] Blk [id number]_impStart: 70-67-8387Raes Spine Cage Spacr Bengal Lg 7deg [id number]_impStart: 08-30-2018 Plate Cerv Ant Ti [id number]_impStart: 63-49-0531Rvtla Cerv [facility] Selftap Ti 16mm [id number]_impStart: 08-30-2018 Functional Status JlqxSefjkbxsmjBgdhjgSgpvqstu25-38-5345Mxqkjdgrjy StatusN/AExecutive [facility] of [facility]08-09-2022Functional StatusN/AExec[facility] Clinical Notes 08-08-2016 to 12-13-2024 Note Date & VidyNaldXollgsrl92-52-5481 Evaluation note* Diagnosis Onset Date Resolution Status Admit Date BMI 50.0-59.9, adult acuteNovember 2024 1:07pmChronic UTIacuteNovember 2024 1:07pmDecreased mobilityacuteNovember 2024 1:07pmLumbar radiculopathyacuteNovember 2024 1:07pmSkin breakdownacuteNov2024 1:07pm [facility] Work Phone: 1(401) 533-589811-19-2024 NoteHNO ID: [id number] Author: MOISES WILLIS MD Service: ? Author Type: Physician Type: Progress Notes Filed: 01/24/2024 08:28 Note Text: Staff note: Doing well, stable, did have fall October but otherwise doing well Had some soreness on left side Is having increasing burning pain in feet Associate with weather Gabapentin does provide relief at times Plan Continue current care Not interested in surgery Continue gabapentin Is walking with walker--> continue with progressive mobility All questions answered to stated satisfaction I have communicated my name and active licensure. The patient's identity and physical location were verified at the time of this visit. Either the patient or their legal commercial sales representative has been informed of the risks and benefits of -- and alternatives to -- treatment through a remote evaluation and consents to proceed with the evaluation remotely. 10 minutes Moises Willis [facility]11-19-2024 History of Present illness Narrative* Moises Willis MD - 12/28/2023 8:41 AM EST Staff note: Doing well, stable, did have fall October but otherwise doing well Had some soreness on left side Is having increasing burning pain in feet Associate with weather Gabapentin does provide relief at times Plan Continue current care Not interested in surgery Continue gabapentin Is walking with walker--> continue with progressive mobility All questions answered to stated satisfaction I have communicated my name and active licensure. The patient's identity and physical location wereverified at the time of this visit. Either the patient or their legal commercial sales representative has been informed of the risks and benefits of -- and alternatives to -- treatment through a remote evaluation andconsents to proceed with the evaluation remotely. 10 minutes Moises Willis MD documented in this encounterSt. Rita'S [facility]06-05-[facility]24 History of Present illness Narrative* Heather Fernandes, PL[employer] ROOF BOLTER.ACETYLENE TORCH BURNER - 07/14/2023 3:30 PM EDT Carrie Luz Fletcher [address] [place] [address] [place] [address] HISTORY OF PRESENT ILLNESS: Seen 06/04/23 for bladder mass and B/L moderate-marded hydronephrosis Pt stated that was urinating prior to catheter placement, pt stated that have desire to urinate. Jansen catheter removed with ease Urine in bag was yellow slightly cloudy Pt stated that have HST of constipation Renal US 04/15/23: Irregular echogenic material within the urinary bladder and probable wall thickening, suspicious for urothelial neoplasm. Urology consultation and potentially further assessment with cystoscopy is suggested. Bilateral moderate-marked hydronephrosis, right greater than left. Findings are likely secondary todistal ureteral obstruction in light of urinary bladder findings. If warranted, this can be furtherassessed with CT Urogram. US of kidney 06/01/23= IMPRESSION: Limited exam due to poor acoustic penetration. Mild bilateral hydronephrosis is suggested. Decompressed urinary bladder surrounding a Jansen catheter. cysto 05/04/23= DIAGNOSIS: Acute cystitis with pyuria, debris and multiple small diverticuli CT abdomen pelvis wo/w 04/28/23= Chronic marded hydronephrosis and hydroureter B/L secondary to irregular urinary bladder wall thickening most suggestive of neoplasm No appreciable lymphadenopathy or metastatic disease. L5-S1 marked degenerative disc disease Coming bladder mass, hydro, neurogenic bladder (new finding today 07/14/23) Denies gross hematuria Denies burning with urination Pt stated is doing well will cont with present regiment PUG=625 ML US kidney/pelvic w PVR 07/06/23= IMPRESSION: 1. Marked thickening of the wall of the urinary bladder with bladder wall trabeculation. This was also present on a prior outside CT scan from 04/28/2023. This could be secondary to bladder outlet obstruction, neurogenic bladder, or urothelial malignancy. This is not adequately evaluated on ultrasound can be further evaluated with cystoscopy if not already performed. Prevoid bladder volume measures 259 mL and the post void bladder volume measures 138 mL. 2. Mild right hydronephrosis and hydroureter and trace left hydronephrosis. This appears improved when compared to the prior exams. Location: bladder mass, hydro Pain Character: none Severity Scale: see lab, see X-rays Duration: few weeks PAST MEDICAL HISTORY Diagnosis Date A-fib (HCC) Foot drop, left foot Nerve damage Sleep apnea PAST SURGICAL HISTORY Procedure Laterality Date BACK SURGERY HX GASTRIC BYPASS HX No family history on file. Social History [...] 1 TABLET BY MOUTH TWICE A DAY Docusate Sodium 250 mg capsule Stool Softener [...] mouth. sennosides (SENOKOT ORAL) Take by mouth. solifenacin (VESICARE) 5 mg tablet Take 15 mg by mouth as directed. TAKE 2 TABLETS BY MOUTH IN THE MORNING, AND 1 TABLET IN THE EVENING (Patient not taking: Reported on 07/14/2023) No current facility-administered medications for this visit. [...] no bleeding from the gums. PHYSICAL EXAM: VITALS: BP 130/78 Pulse 88 Wt (!) 158.8 kg (350 lb) LMP (LMP Unknown) BMI 44.94 kg/m GENERAL: Alert, oriented and in no distress. HEAD: Conjuctiva: no palor Sclera: no jaundice NECK: No enlarged thyroid, no palpable lymph nodes, and no engorged neck veins. CHEST: Bilateral symetrical, resp easy non labored ABDOMEN: Soft, non tender with no masses or organomegaly. No CVA tenderness. EXTREMITIES: +3 lower extremity edema and pt use walker for short distance and wheel chair for longdistances. GENITALIA: Deferred IMPRESSION: (Diagnostic Possibilities): -Enuresis pt uses wick at HS -Neurogenic bladder -Irregular echogenic material within the urinary bladder and probable wall thickening, suspicious for urothelial neoplasm. (Neg cysto noted 05/04/23) -Mild bilateral hydronephrosis improved (noted on recent US) -Paralysis s/p gastric bypass surgery 2018 Able to walk with a walker after neck surgery 2019 -On Eliquis PLAN: (Management Options): PVR today Standing order for urine placed will use only if symptomatic Encourage to maintained better BM pt stated that take senokot if no BM in 2 day Cont with stool softener Rto 6 months for evaluation of hydronephrosis, enuresis, neurogenic bladder, PVR, culture, cytology, UA PRN if symptomatic Medical Decision Making: Problems: Moderate: 2+ stable chronic illnesses Data: Unique test result(s) reviewed: 2 Unique test(s) ordered: 3+ Medical Decision Making Level: 4 - Moderate Heather Fernandes APRN.MERLYN documented in this encounterSt. Rita'S Hospital06-05-2024 NoteHNO ID: [id number] Author: HEATHER FERNANDES APRN.CNP Service: ? Author Type: Nurse Practitioner Type: Progress Notes Filed: 07/14/2023 18:52 Note Text: Carrie Escobar Chance [address] [place] [address] HISTORY OF PRESENT ILLNESS: Seen 06/04/23 for bladder mass and B/L moderate-marded hydronephrosis Pt stated that was urinating prior to catheter placement, pt stated that have desire to urinate. Jansen catheter removed with ease Urine in bag was yellow slightly cloudy Pt stated that have HST of constipation Renal US 04/15/23: Irregular echogenic material within the urinary bladder and probable wall thickening, suspicious for urothelial neoplasm. Urology consultation and potentially further assessment with cystoscopy is suggested. Bilateral moderate-marked hydronephrosis, right greater than left. Findings are likely secondary to distal ureteral obstruction in light of urinary bladder findings. If warranted, this can be further assessed with CT Urogram. US of kidney 06/01/23= IMPRESSION: Limited exam due to poor acoustic penetration. Mild bilateral hydronephrosis is suggested. Decompressed urinary bladder surrounding a Jansen catheter. cysto 05/04/23= DIAGNOSIS: Acute cystitis with pyuria, debris and multiple small diverticuli CT abdomen pelvis wo/w 04/28/23= Chronic marded hydronephrosis and hydroureter B/L secondary to irregular urinary bladder wall thickening most suggestive of neoplasm No appreciable lymphadenopathy or metastatic disease. L5-S1 marked degenerative disc disease Coming bladder mass, hydro, neurogenic bladder (new finding today 07/14/23) Denies gross hematuria Denies burning with urination Pt stated is doing well will cont with present regiment UFF=352 ML US kidney/pelvic w PVR 07/06/23= IMPRESSION: 1. Marked thickening of the wall of the urinary bladder with bladder wall trabeculation. This was also present on a prior outside CT scan from 04/28/2023. This could be secondary to bladder outlet obstruction, neurogenic bladder, or urothelial malignancy. This is not adequately evaluated on ultrasound can be further evaluated with cystoscopy if not already performed. Prevoid bladder volume measures 259 mL and the post void bladder volume measures 138 mL. 2. Mild right hydronephrosis and hydroureter and trace left hydronephrosis. This appears improved when compared to the prior exams. Location: bladder mass, hydro Pain Character: none Severity Scale: see lab, see X-rays Duration: few weeks PAST MEDICAL HISTORY Diagnosis Date A-fib (HCC) Foot drop, left foot Nerve damage Sleep apnea PAST SURGICAL HISTORY Procedure Laterality Date BACK SURGERY HX GASTRIC BYPASS HX No family history on file. Social History [...] 1 TABLET BY MOUTH TWICE A DAY Docusate Sodium 250 mg capsule Stool Softener [...] mouth. sennosides (SENOKOT ORAL) Take by mouth. solifenacin (VESICARE) 5 mg tablet Take 15 mg by mouth as directed. TAKE 2 TABLETS BY MOUTH IN THE MORNING, AND 1 TABLET IN THE EVENING (Patient not taking: Reported on 07/14/2023) No current facility-administered medications for this visit. [...] and no tremor. BLOOD: No ekimosis, no (more content not included)...[facility] 07-06-2023 NoteHNO ID: [id number] Author: DANIELLE PARIS RT(R) Service: ? Author Type: Bagging Machine Operator Type: Progress Notes Filed: 07/06/2023 13:29 Note Text: Radiology Service Progress Note PATIENT NAME: Carrie Fletcher DATE OF SERVICE: July 06, 2023 TIME: 1:28 PM PATIENT IDENTITY VERIFICATION COMPLETED USING TWO [...] falls during this visit? Offered Assistance with Transfers/Clothing, Increased Observations by Caregivers, and Escorted to/from Restroom PATIENT GENDER DATA: Female. status: : No status: N/A PATIENT RELEVANT IMPLANT DATA REVIEWED: Not Applicable PATIENT PRESENTS WITH AN IMPLANTABLE OR ATTACHED TRAFFIC REPRESENTATIVE: No RADIOLOGY DEPARTMENT: Ultrasound PERIPHERAL IV DATA: Not applicable SIGNED BY: RT Byron(R) July 06, 2023 1:28 [facility]04-26-2024 History of Present illness Narrative* Heather Fernandes, [employer] ROOF BOLTER.ACETYLENE TORCH BURNER - 06/04/2023 1:00 PM EDT Carriehannah Fletcher [address] [facility] [place] [address] HISTORY OF PRESENT ILLNESS: Seen 04/19/[address] Campa here today for bladder mass and bilateral moderate-marked hydronephrosis. Renal US 04/15/23: Irregular echogenic material within the urinary bladder and probable wall thickening, suspicious for urothelial neoplasm. Urology consultation and potentially further assessment with cystoscopy is suggested. Bilateral moderate-marked hydronephrosis, right greater than left. Findings are likely secondary todistal ureteral obstruction in light of urinary bladder findings. If warranted, this can be furtherassessed with CT Urogram. Coming for bladder mass and B/L moderate-marded hydronephrosis (new finding today 06/04/23) Pt stated that was urinating prior to catheter placement, pt stated that have desire to urinate. Jansen catheter removed with ease Urine in bag was yellow slightly cloudy Pt stated that have HST of constipation UA 04/09/23=+2 hemoglobin, +2 protein, +nitrites, +3 leuk esterase, >20 wbc Culture 04/19/23=contaminated Cytology 04/19/23=neg BUN/crea 03/30/23=23/1.01 GFR=67 US of kidney 06/01/23= IMPRESSION: Limited exam due to poor acoustic penetration. Mild bilateral hydronephrosis is suggested. Decompressed urinary bladder surrounding a Jansen catheter. cysto 05/04/23= DIAGNOSIS: Acute cystitis with pyuria, debris and multiple small diverticuli CT abdomen pelvis wo/w 04/28/23= Chronic marded hydronephrosis and hydroureter B/L secondary to irregular urinary bladder wall thickening most suggestive of neoplasm No appreciable lymphadenopathy or metastatic disease. L5-S1 marked degenerative disc disease Location: bladder mass, hydro Pain Character: none Severity Scale: see lab, see X-rays Duration: few weeks PAST MEDICAL HISTORY Diagnosis Date A-fib (HCC) Foot drop, left foot Nerve damage Sleep apnea PAST SURGICAL HISTORY Procedure Laterality Date BACK SURGERY HX GASTRIC BYPASS HX No family history on file. Social History [...] mouth. sennosides (SENOKOT ORAL) Take by mouth. ciprofloxacin HCl (CIPRO) 500 mg tablet Take 1 tablet by mouth two times a day for 3 days. No current facility-administered medications for this visit. [...] no bleeding from the gums. PHYSICAL EXAM: VITALS: BP 149/102 Pulse 75 Wt (!) 158.8 kg (350 lb) LMP (LMP Unknown) BMI 44.94 kg/m GENERAL: Alert, oriented and in no distress. HEAD: Conjuctiva: no palor Sclera: no jaundice NECK: No enlarged thyroid, no palpable lymph nodes, and no engorged neck veins. CHEST: Bilateral symetrical, resp easy non labored ABDOMEN: Soft, non tender with no masses or organomegaly. No CVA tenderness. EXTREMITIES: +3 lower extremity edema and pt use walker for short distance and wheel chair for longdistances, vaginal area yeast drainage noted GENITALIA: Deferred IMPRESSION: (Diagnostic Possibilities): -Irregular echogenic material within the urinary bladder and probable wall thickening, suspicious for urothelial neoplasm. -Mild bilateral hydronephrosis is suggested. -Paralysis s/p gastric bypass surgery 2018 Able to walk with a walker after neck surgery 2019 -On Eliquis PLAN: (Management Options): Remove jansen Cipro script sent to Pharmacy on file Standing order for urine placed will use only if symptomatic Encourage to maintained better BM pt stated that take senokot if no BM in 2 day Cont with stool softener UA/culture/cytology result given Pt instructed that if unable to urinate to go to ER to have cath replaced Repeat US w PVR in 1 month with ov post for results and plan Medical Decision Making: Problems: Moderate: 2+ stable chronic illnesses Data: Unique test result(s) reviewed: 3+ Unique test(s) ordered: 1 Risk: Low: Low risk from testing/treatment Medical Decision Making Level: 4 - Moderate Heather Fernandes APRN.ACETYLENE TORCH BURNER documented in this encounterSt. Rita'[facility] Hospital04-26-2024 NoteHNO ID: [id number] Author: HEATHER FERNANDES APRN.ACETYLENE TORCH BURNER Service: ? Author Type: Nurse Practitioner Type: Progress Notes Filed: 06/04/2023 15:10 Note Text: Carrie Fletcher [address] [facility] [place] [address] HISTORY OF PRESENT ILLNESS: Seen 04/19/[address] Campa here today for bladder mass and bilateral [...] can be further assessed with CT Urogram. Coming for bladder mass and B/L moderate-marded hydronephrosis (new finding today 06/04/23) Pt stated that was urinating prior to catheter placement, pt stated that have desire to urinate. Jansen catheter removed with ease Urine in bag was yellow slightly cloudy Pt stated that have HST of constipation UA 04/09/23=+2 hemoglobin, +2 protein, +nitrites, +3 leuk esterase, >20 wbc Culture 04/19/23=contaminated Cytology 04/19/23=neg BUN/crea 03/30/23=23/1.01 GFR=67 US of kidney 06/01/23= IMPRESSION: Limited exam due to poor acoustic penetration. Mild bilateral hydronephrosis is suggested. Decompressed urinary bladder surrounding a Jansen catheter. cysto 05/04/23= DIAGNOSIS: Acute cystitis with pyuria, debris and multiple small diverticuli CT abdomen pelvis wo/w 04/28/23= Chronic marded hydronephrosis and hydroureter B/L secondary to irregular urinary bladder wall thickening most suggestive of neoplasm No appreciable lymphadenopathy or metastatic disease. L5-S1 marked degenerative disc disease Location: bladder mass, hydro Pain Character: none Severity Scale: see lab, see X-rays Duration: few weeks PAST MEDICAL HISTORY Diagnosis Date A-fib (HCC) Foot drop, left foot Nerve damage Sleep apnea PAST SURGICAL HISTORY Procedure Laterality Date BACK SURGERY HX GASTRIC BYPASS HX No family history on file. Social History [...] mouth. sennosides (SENOKOT ORAL) Take by mouth. ciprofloxacin HCl (CIPRO) 500 mg tablet Take 1 tablet by mouth two times a day for 3 days. No current facility-administered medications for this visit. [...] no bleeding from the gums. PHYSICAL EXAM: VITALS: BP 149/102 Pulse 75 Wt (!) 158.8 kg (350 lb) LMP (LMP Unknown) BMI 44.94 kg/m? GENERAL: Alert, oriented and in no distress. HEAD: Conjuctiva: no palor Sclera: no jaundice NECK: No enlarged thyroid, no palpable lymph nodes, and no engorged neck veins. CHEST: Bilateral symetrical, resp easy non labored ABDOMEN: Soft, non tender with no masses or organomegaly. (more content not included)...[facility]04-23-2024 NoteHNO ID: [id number] Author: DANIELLE PARIS RT(R) Service: ? Author Type: Bagging Machine Operator Type: Progress Notes Filed: 06/01/2023 14:07 Note Text: Radiology Service Progress Note PATIENT NAME: Carrie Fletcher DATE OF SERVICE: June 01, 2023 TIME: 2:06 PM PATIENT IDENTITY VERIFICATION COMPLETED USING TWO [...] PATIENT PRESENTS WITH AN IMPLANTABLE OR ATTACHED TRAFFIC REPRESENTATIVE: No RADIOLOGY DEPARTMENT: Ultrasound PERIPHERAL IV DATA: Not applicable SIGNED BY: RT Byron(R) June 01, 2023 2:06 [facility]04-09-2024 NoteOccupational Therapy [facility] Discharge Summary 05/18/2023. 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 I discussed with her that she is a candidate to pursue adaptive driving using hand controls with instruction. There are a number of items that need to be addressed before commencing training. I discussed with her that with her manual wheelchair, she does not demonstrate enough strength, endurance, and balance to be able to enter and exit a modified vehicle with a ramp or store the mobility device by herself. We discussed obtaining a power wheelchair which will help with ingress and egress to a modified vehicle. She plans to drive from a power wheelchair due to limitations with performing several transfers using her walker. We discussed financial options as well, such as the cost of a modified vehicle, adaptive devices, and training. I provided her with several resources to look into first to determine financial assistance with her goal to be able to resume driving using adaptive devices. These included: Opportunities for [place] with disabilities, Medicare, and Medicaid waiver. Recommendations: 1. Follow-up after Ms Fletcher explores community resources such as opportunities for [place] with disabilities, Medicare, Medicaid waiver to begin process regarding financial assistance for adaptive driving. 2. Follow-up with Ms. Fletcher regarding qualification for power wheelchair. She may follow-up at [facility] wheelchair seating clinic which is completed in the physical medicine and rehab department twice a month. 3. If financial aspects are in place, further discuss vehicle selection and then undergo training with [employer], Training with [employer]. Other: I will plan to follow-up with Ms. Fletcher via phone and email throughout this process. I provided her with information to contact myself as well as email. Follow up calls on 08/27/22 and 11/13/2022 were made. She has been dealing with a LE fx and pending further MRI. 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 Ilsa Peralta OTR/L [facility]RSUnivers[facility] Miscellaneous Notes* Telephone Encounter - Apurva Campa MD - 05/11/2023 1:41 PM EDT PLEASE CALL PATIENT AND SEE HOW IS SHE IS DOING WITH THE CATHETER IN INFORM HER NEEDS TO KEEP THE CATHETER TILL SHE SEE HEATHER 06-04-23 She need to schedule the renal US needed about a week prior her office visit with Heather Campa MD documented in this encounterSt. Rita'S Hospital03-31-2024 NoteHNO ID: [id number] Author: APURVA CAMPA MD Service: ? Author Type: Physician Type: Progress Notes Filed: 05/09/2023 10:08 Note Text: CT A/P WO/W IV C 04/28/2023 at [facility]: 1-chronic marked hydronephrosis and hydroureter bilateral secondary to irregular bladder wall thickening most suggestive of neoplasm. 2-no appreciable lymphadenopathy or metastatic disease 3-L5-S1 marked degenerative disc diseaseOhiohealth [facility]03-26-2024 Miscellaneous Notes* Telephone Encounter - Tiffanie Bucio - 05/04/2023 4:01 PM EDT Called and spoke with patient. Patient is scheduled ov in 1 month with Heather Fernandes CNP on 06/04/23 * Telephone Encounter - Apurva Campa MD - 05/04/2023 12:46 PM EDT Patient has cystoscopy under local at [facility]. Schedule follow-up office visit with nurse practitioner in 1 month. Plan to remove catheter at the office visit at the office visit. APURVA CAMPA M.D. documented in this encounterSt. Rita'S Hospital03-26-2024 Miscellaneous Notes* Telephone Encounter - Apurva Campa MD - 05/04/2023 2:31 PM EDT Please get me the report of CT scan of the patient that was done at [facility] APURVA CAMPA M.D. documented in this encounterSt. Rita'S Hospital03-18-2024 NoteHNO ID: [id number] Author: APURVA CAMPA MD Service: ? Author [...] +ve, wbc and RBC Culture =-ve cytology= bloodOhiohealth [facility]03-18-2024 History of Present illness Narrative* Apurva Campa MD - 04/26/2023 9:29 PM EDT local cysto 05-04-23 lumbar steosis, obesity, unsteady [...] right > left. secondary to distal ureteral obstructionin light of urinary bladder findings. UA 04-19-23 = nitrite +ve, wbc and RBC Culture =-ve cytology= blood documented in this encounterSt. Rita'S Hospital03-12-2024 Miscellaneous Notes* Telephone Encounter - Macy Simon - 04/20/2023 4:14 PM EDT Patient called back and confirmed date * Telephone Encounter - Macy Simon - 04/20/2023 4:07 PM EDT Left VM confirming date. * Telephone Encounter - Apurva Campa MD - 04/20/2023 12:21 AM EDT Please schedule patient for local flexible cystoscopy at [facility] on Wednesday05-04-23 Apurva Campa MD documented in this encounterSt. Rita'S Hospital03-11-2024 History of Present illness Narrative* Tioga Negrita - 04/19/2023 2:40 PM EDT Carrie Fletcher [address] [facility] [place] [address] is a 52 year old female and is here today for hydronephrosis, bladder mass at the request of Janina Hadley [address] [facility] [address] My final recommendation will be communicated back to the requesting physician by way of shared medical record or letter. 52 year old female with degenerative disc disease, lumbar steosis, obesity, unsteady gait, on Eliquis here today for bladder mass and bilateral moderate- marked hydronephrosis. Renal US 04/15/23: Irregular echogenic material within the urinary bladder and probable wall thickening, suspicious for urothelial neoplasm. Urology consultation and potentially further assessment with cystoscopy is suggested. Bilateral moderate-marked hydronephrosis, right greater than left. Findings are likely secondary todistal ureteral obstruction in light of urinary bladder findings. If warranted, this can be furtherassessed with CT Urogram. Creatinine Date Value Ref [...] On Eliquis PLAN: (Management Options): UA/culture/cytology at [facility] lab CTU, GFR 03/31/23: 67 [...] and in the presence of Dr. Campa. Consuelo Phelpsibhalina Provider Attestation: Apurva Haji M.D., personally performed the services described in this documentation. All medicalrecord entries made by the scribe were at my direction and in my presence. I have reviewed the chart and discharge instructions (if applicable) and agree that the record reflects my personal performance and is accurate and complete. Apurva Campa M.D. documented in this encounterSt. Rita'S Hospital03-11-2024 NoteHNO ID: [id number] Author: ?, ?, ? Service: ? Author Type: ? Type: Progress Notes Filed: 04/19/2023 14:41 Note Text: Carrie Fletcher [id number] [facility] [place] [address] is a 52 year old female and is here today for hydronephrosis, bladder mass at the request of Janina Hadley [address] [facility] [address] My final recommendation will be communicated back [...] On Eliquis PLAN: (Management Options): UA/culture/cytology at [facility] lab CTU, GFR 03/31/23: 66 [...] and in the presence of Dr. Campa. Consuelo Phelpsibhalina Provider Attestation: Apurva Haji M.D., personally performed the services described in this documentation. All medical record entries m (more content not included)... [facility]03-11-2024 Instructions* Patient Instructions* Apurva Campa MD - 04/19/2023 2:38 PM EDT UA/culture/cytology at [facility] lab Schedule CTU Surgical schedulers will call for cystoscopy under local 05/04/23 office visit post op 05-12-23 in post op slot 9:20 AM documented in this encounterSt. Rita'S Hospital03-07-2024 NoteHNO ID: [id number] Author: JANINA HADLEY APRN.ACETYLENE TORCH BURNER Service: ? Author Type: Nurse Practitioner Type: Progress Notes Filed: 04/15/2023 16:54 Note Text: Called pt to discussed results after receiving phone call from radiologist Anton Engle to cover this matter if needed tomorrow Message sent to Brittany Cheatham RN Consult placed Phone number sent to pt to call if she doesn't hear anything by Wednesday next week All questions answered Other hydronephrosis - CONSULT TO UROLOGY; Future Bladder mass - CONSULT TO UROLOGY; Future Janina Hadley APRN.CNP Actionable Findings Diagnostic [place] Impression IMPRESSION: 1. Irregular echogenic material within [...] NP on 04/15/2023 4:27 PM via verbal communication.[facility]03-07-2024 History of Present illness Narrative* Janina Hadley APRN.CNP - 04/15/2023 4:47 PM EST Called pt to discussed results after receiving phone call from radiologist Anton Engle to cover this matter if needed tomorrow Message sent to Brittany Cheatham RN Consult placed Phone number sent to pt to call if she doesn't hear anything by Wednesday next week All questions answered Other hydronephrosis - CONSULT TO UROLOGY; Future Bladder mass - CONSULT TO UROLOGY; Future Janina Hadley APRN.CNP Actionable Findings Diagnostic [place] Impression IMPRESSION: 1. Irregular echogenic material within [...] PM via verbal communication. documented in this encounterSt. Rita'S Hospital03-07-2024 NoteHNO ID: [id number] Author: DANIELLE PARIS RT(R) Service: ? 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 Feb,Hyperlipidemia (ICD-10 - E78.5)Review of patients laboratory results and therefore they are to continue watching her diet and increase their exercise regimen and we will continue to monitor. Feb,Morbid obesity (ICD-10 - E66.01) Feb,hronic UTI (ICD-10 - N39.0) Urine collection kit was provided to her she will drop a sample off at [facility]. If positive will call her and initiate treatemtn Feb,Neurogenic bladder (ICD-10 - N31.9) Encouraged patient to call for f/u with urologist. Feb,S/P bariatric surgery (ICD-10 - Z98.84) Patient has gained weight back since her gastric bipass surgery. She has not seen surgeon in quite a while. Feb,Encounter for screening mammogram for malignant neoplasm of breast (ICD-10 - Z12.31) Mammogram ordered today Feb,egenerative lumbar disc (ICD-10 - M51.36) I have reviewed her recent progress note and recent MRIs. I would recommend that she follow up withlocal neurolgist in addition to [facility]. Feb,Spinal stenosis of thoracolumbar region (ICD-10 - M48.05) Feb,ost-menopausal (ICD-10 - Z78.0) [employer] Other 12-05-2023 Evaluation note* Encounter Date Diagnosis Assessment Notes Treatment Notes Treatment Clinical Notes Jan, Hematuria (ICD-10 - R31.9) Jan,cute cystitis with hematuria (ICD-10 - N30.01) Discussed [...] to push fluids. Patient symptoms should improve inthe next 48 hours, if symptoms persist follow up with PCP or UC. Immediate eval by ER if back or flank pain, fever, chills, N/V, or any other concerning symptoms arise. Advised to call PCPin morning to make follow up appointment. Patient verbalizes understanding and is agreeable to treatment plan. Jan,OtherUrinary tract infection (UTI) home care material was printed [employer] Other 11-13-2023 History of Present illness Narrative* Moises Willis [...] the legs, progressing since 2021. Last saw Carolin Patel on 11/27 during a virtual visit, [...] TIME: 12:18 PM PAGER: documented in this encounterSt. Rita'S Hospital11-13-2023 History of Present illness Narrative* Bree [...] 21, 2022 11:48 AM documented in this encounterSt. Rita'S Hospital10-23-2023 Evaluation note* Encounter Date Diagnosis Assessment Notes Treatment Notes Treatment Clinical Notes Nov, History of pulmonary embolism (I CD-10 - Z86.711) [employer] Other [id number] History of Present illness Narrative* Carolin Patel PA-C - 11/27/2022 6:56 AM EDT SPINE SURGERY ESTABLISHED This is a virtual visit using [facility] [employer] Video Visit. It required patient- provider interaction for the medical decision making as documented below. I have communicated my name and active licensure. The patient's identity and physical location wereverified at the time of this visit. Either the patient or their legal commercial sales representative has been informed of the risks [...] faceto face time was 30 minutes. SIGNATURE: Carolin Patel PA-C PATIENT NAME: Carrie Fletcher DATE: November 27, 2022 TIME: 6:59 AM PAGER: documented in this encounterSt. Rita'S Hospital10-09-2023 History of Present illness Narrative* Alexis [...] 16, 2022 4:04 PM documented in this encounterSt. Rita'S Hospital10-06-2023 NoteOccupational Therapy [facility] 11/13. Spoke with Carrie regarding follow up with surgeon. She is pending further MRI's at this time. 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 Ilsa Peralta OTR/L CDRSUniversity of Citizens Medical Center09-01-2023 Evaluation note* Encounter Date Diagnosis Assessment Notes Treatment Notes Treatment Clinical Notes Oct, Left foot pain (ICD-10 - M79.672 ) [employer] Other 08-17-2023 Evaluation note* Encounter Date Diagnosis Assessment Notes Treatment Notes Treatment Clinical Notes Sep, Spinal stenosis of l umbar region with neurogenic claudication (ICD- 10 - M48.062) [employer] Other 08-14-2023 History of Present illness Narrative* Moises Willis [...] PCP: Lon Ibrahim REFERRING PROVIDER: Bryce Lara APRN.ACETYLENE TORCH BURNER SUBJECTIVE HISTORY OF PRESENT ILLNESS: Carrie Fletcher [...] TIME: 9:31 AM PAGER: documented in this encounterSt. Rita'S Hospital08-03-2023 Evaluation note* Encounter Date Diagnosis Assessment Notes Treatment Notes Treatment Clinical Notes Sep, Supraventricular tachycardia (IC D-10 - I47.1) [employer] Other 2023 Evaluation note* Encounter Date Diagnosis Assessment Notes Treatment Notes Treatment Clinical Notes Aug, Left foot pain (ICD-10 - M79.672 ) Aug,Fall, initial encounter (ICD-10 - W19.XXXA) [employer] Other 07-20-2023 NoteOccupational Therapy [facility] Spoke with Mrs. Fletcher today. States she has a LE fx and follows up with a surgeon in October. 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 Mailbox stated full, will re attempt at a later time. Ilsa Peralta OTR/L CDRSUniversHolzer Medical Center [facility]06-21-2023 Miscellaneous Notes* Telephone Encounter - Bryce Lara [...] answered. Bryce Lara APRN.CNP documented in this encounterSt. Rita'S Hospital06-20-2023 Evaluation note* Encounter Date Diagnosis Assessment Notes Treatment Notes Treatment Clinical Notes Jul, Fall, subsequent encounter (ICD- 10 - W19.XXXD) [employer] Other [id number] Miscellaneous Notes* Telephone Encounter - Meaghan Yeungvibha [facility] - 07/28/2022 9:49 AM EDT Pt called; states she had EMG completed on 06/06/22 at an external facility; she will notify them tofax it to [phone]. documented in this encounterSt. Rita'S Hospital06-14-2023 Miscellaneous Notes* Telephone Encounter - Bryce [...] for review. Donna Pal documented in this encounterSt. Rita'S Hospital06-09-2023 Miscellaneous Notes* Telephone Encounter - Donna Pal - 07/17/2022 12:53 PM EDT Received the following record(s) via Fax. -MRI Cervical Spine WO Contrast Date 05/18/22 Sending images over through PACS. Record(s) scanned into pt's chart. Donna Pal documented in this encounterSt. Rita'S Hospital05-15-2023 History of Present illness Narrative* Danielle [...] 2nd opinion: no Prior spine surgery: yes [address] [address] CMT: PT Gabapentin Tylenol Studies (Reports unless [...] Health Provider or Pain Management Provider at [facility]? No If answer is YES [...] the facility where the MRI/CT/myelogram was completed: [address] [place] [address] MRI/CT/myelogram viewable in Epic: No If not, please provide [phone] to fax in imaging reports for review. [...] and/or physical therapy was completed PT: [facility] [address] [place] [address] Have you tried any other kinds of [...] facility/address of where the surgery was completed: [facility] [address] [place] [address] Additional Comments [phone] documented in this encounterSt. Rita'S Hospital02-16-2023 Evaluation note* Encounter Date Diagnosis Assessment Notes Treatment Notes Treatment Clinical Notes Mar, Spinal stenosis of l umbar region with neurogenic claudication (ICD- 10 - M48.062) Functional community mobility evaluation by occupational therapist Ilsa Peralta performed in regardto her driving capacities. In my medical opinion due to her righ upper and bilateral lower extremity weakness .The patient advised I am not comfortable releasing her to operate a motor vehicle even with adaptive driving. I recommend she consults with a neurosurgeon for a neurological evaluation and recommendation. Neurosurgeon Dr.Deborah Eubanks recommended. Mar, cervical spinal fusion (ICD-10 - Z98.1) The patient continues to have right armed weakness, she has not noticed any improvement since starting occupational therapy. Discussion was had an MRI of the cervical spine will likely be needed. We will let the neurosurgeon make this decision. Mar,Left foot drop (ICD-10 - M21.372) The patient encouraged following through with Kavya as scheduled today in regard to her broken left foot brace. Left foot drop continues to be evident Mar,Hyperlipidemia (ICD-10 - E78.5) Blood work ordered. Mar,/P bariatric surgery (ICD-10 - Z98.84) Mar,Hyperglycemia (ICD-10 - R73.9) Mar,Neurogenic bladder (ICD-10 - N31.9) Per patient the above medication seems to have made an improvement in regards to better bladder control. The patient encouraged to continue following with urology as scheduled. Mar,rm weakness (ICD-10 - R29.898) [employer] Other 01-19-2023 Evaluation note* Encounter Date Diagnosis Assessment Notes Treatment Notes Treatment Clinical Notes Feb, Depression (ICD-10 - F32.9) Patient declined treatment. I encouraged her to call if she changes her mind and or if depression becomes worse. Patient states that she can be a little emotional but mainly due to her health conditions. Feb,MI 45.0-49.9, adult (ICD-10 - Z68.42) Patient reports a poor diet over the last several months due to the holidays and eating more carbohydrates. Feb,Spinal stenosis of lumbar region with neurogenic claudication (ICD- 10 - M48.062) Patient has an appt at a special rehabilitation center to determine if she would be a candidate to learn to drive again with modifications. I am concerned with her increased weakness and increased neuropathy symptoms. Prevous surgery and followed by [facility]. I encouraged her tohave rehab dept fax us a report after her consultation and will determine further work up / diagnost ic imaging following report. Continue with gabapentin for the time being. Feb,S/P cervical spinal fusion (ICD-10 - Z98.1) Patient reports left sided neck pain, with arm weakness however worse in right upper extremity vs left. Feb,Upper extremity weakness (ICD-10 - R29.898) Patient does report worsening upper extremity weakness. I am concerned this is related to her cevical spine therefore we discussed further work up once she has consult with rehab. Feb,Neurogenic bladder (ICD-10 - N31.9) Patient is to continue with the above regimen and urologists plan of care. [employer] Other 01-17-2023 Hospital Discharge instructions Patient Education [...] Treatment for this condition includes: Antibiotic medicine. Jylr-luy-twgfwju medicines to treat discomfort. Drinking enough water [...] Follow these instructions at home: Medicines Take abks-qjn-ahxrwig and prescription medicines only as told by [...] 11/04/2005 Document Revised: 01/12/2019 Document Reviewed: 08/04/2018 [employer] Patient Education 2020 [employer]. Follow Up Care 12/30/2021 09:59:20 With:YECENIA FOLEY, Nicole Garcia, URL Address: [address] [place] [address]- When: Unknown [facility] 11-02-2022 Note [id number]:127[facility] 10-24-2021 Evaluation note* Encounter Date Diagnosis Assessment Notes Treatment Notes Treatment Clinical Notes Oct, Neuropathic pain (ICD-10 - M79.2 ) Patient is to continue with the above medications. Oct,ariatric surgery status (ICD-10 - Z98.84) Blood work appears to be satisfactory upon review, we will fax results to Dr. Camacho. Oct,Vitamin D deficiency (ICD-10 - E55.9) Vitamin D level is WNL upon review of blood work results, I advised the patient to continue with the above medication. Oct,Hyperlipidemia (ICD-10 - E78.5) [employer] Other 09-06-2022 Evaluation note* Encounter Date Diagnosis Assessment Notes Treatment Notes Treatment Clinical Notes Oct, S/P bariatric surgery (ICD-10 - Z98.84) Oct,ietary counseling and surveillance (ICD-10 - Z71.3) [employer] Other 09-02-2022 Evaluation note* Encounter Date Diagnosis Assessment Notes Treatment Notes Treatment Clinical Notes Oct, Vitamin D deficiency (ICD-10 - E 55.9) Oct,Hyperlipidemia (ICD-10 - E78.5) Oct,Hyperglycemia (ICD-10 - R73.9) [employer] Other 08-09-2022 Hospital Discharge instructions Patient Education 09/16/2021 08:40:56 Urinary Tract Infection, Adult, Nwiu-rx-Cwff Urinary Tract Infection, Adult A urinary tract [...] Follow these instructions at home: Medicines Take enwz-obf-thtssze and prescription medicines only as told by [...] 07/13/2008 Document Revised: 01/12/2019 Document Reviewed: 08/04/2018 [employer] Patient Education 2020 [employer]. Follow Up Care 07/21/2021 15:16:53 With:Linden Villarreal MD, Mihir Delgadillo URO Address: [facility] [address], [place] [address] [phone] When: Unknown Comments:schedule [employer] [facility] Qasim 06-01-2022 Hospital Discharge instructions Patient Education 07/09/2021 [...] fried and sweet foods. General instructions Take swvc-dyk-txtsrjk and prescription medicines only as told by [...] 11/21/2009 Document Revised: 05/18/2019 Document Reviewed: 02/10/2018 [employer] Patient Education 2020 [employer] Follow Up Care 03/20/2021 09:54:04 With:ANGELITA PAEZ PA-C, URL Address: [address] [place] [address] When: Unknown [facility] 06-01-2022 Evaluation + Plan note Diagnostic Tests Pending * Urine Culture 07/09/21 [facility]05-24-2022 Evaluation note* Encounter Date Diagnosis Assessment Notes Treatment Notes Treatment Clinical Notes June, Supraventricular tachycardia (IC D-10 - I47.1) [employer] Other 04-04-2022 Evaluation note* Encounter Date Diagnosis Assessment Notes Treatment Notes Treatment Clinical Notes May, History of pulmonary embolus (PE ) (ICD-10 - Z86.711) [employer] Other 03-03-2022 Evaluation note* Encounter Date Diagnosis Assessment Notes Treatment Notes Treatment Clinical Notes Apr, Neuropathic pain (ICD-10 - M79.2 ) [employer] Other 01-17-2022 Evaluation note* Encounter Date Diagnosis Assessment Notes Treatment Notes Treatment Clinical Notes Feb, Neuropathic pain (ICD-10 - M79.2 ) [employer] Other 02-04-2021 NoteMR#: [id number] [facility] Pt. Name: Carrie Fletcher Admitted: 03/12/2020 Discharged: [...] status post gastric bypass surgery, transferred from [facility] on 12/06/2019 for management of septic [...] Piedra MD Date Trans: 03/14/2020 09:42 A/adi [id number] cc: Lon Ibrahim M.D. [facility] [address] [facility] [address] History general Narrative - Reported* Type Description Date Medical History mammogram at age 34 Medical HistoryFractured left armMedical HistoryFracture of footMedical History Fracture of footMedical HistoryEGDMedical Dhyfxme91/2017 MammogramMedical HistoryosteoarthritisMedical Historyspinal stenosisMedical Historylymphadema Medical HistorysepsisMedical HistoryobesityMedical HistorydiverticulitisMedical Historygastric bipass 06/2017Medical HistoryPulmonary embolism 08/2018Medical HistoryLexiscan 02/29/20 NormalSurgical HistoryJawSurgical Historytonsillectomy and adenoidectomySurgical Historygastric bipass06/2017Surgical Historycervical fusion08/2018Surgical Historylipectomy w/ Dr. Smallwood08/24/19urgical History Cholecystecomy03/2019 [employer] Other 07-01-2017 History general Narrative - Reported* Type Description Date Medical History mammogram at age 34 Medical HistoryFractured left armMedical HistoryFracture of footMedical History Fracture of footMedical HistoryEGDMedical Mgpvsif39/2017 MammogramMedical HistoryosteoarthritisMedical Historyspinal stenosisMedical Historylymphadema Medical HistorysepsisMedical HistoryobesityMedical HistorydiverticulitisMedical Historygastric bipass 06/2017Medical HistoryPulmonary embolism 08/2018Medical HistoryLexiscan 02/29/20 NormalSurgical HistoryJawSurgical Historytonsillectomy and adenoidectomySurgical Historygastric bipass06/2017Surgical Historycervical fusion08/2018Surgical Historylipectomy w/ Dr. Smallwood08/24/19urgical History Cholecystecomy03/2019Hospitalization HistorySee Above [employer] Other Evaluation + Plan note No data available for this section [facility] evaluation + Plan note Future Appointments Appointment Date:05/26/2022 09:15:00 AM Scheduled Provider:Nicole KEENE MD Location:[facility] Appointment Type:URO Office Visit [facility] Evaluation + Plan note Future Appointments Appointment Date:05/26/2022 09:15:00 AM Scheduled Provider:Nicole KEENE MD Location: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) [facility] Diagnosis Spinal stenosis, cervical region documented in this encounter [employer] Phone: evaluation note* Diagnosis Cervical disc disorder with radiculopathy- Primary Brachial neuritis or radiculitis nos Right arm weakness Other musculoskeletal symptoms referable to limbs [facility] Spinal stenosis in cervical region- Primary Arm weakness Other musculoskeletal symptoms referable to limbs [facility] Diagnosis Spinal stenosis of lumbar region, unspecified whether neurogenic claudication present- Primary Spinal stenosis in cervical region Arm weakness Other musculoskeletal symptoms referable to limbs [facility] Diagnosis Spinal stenosis of lumbar region, unspecified whether neurogenic claudication present [facility] Diagnosis Spinal stenosis, lumbar region with neurogenic claudication- Primary Spinal stenosis of lumbar region with neurogenic claudication Spinal stenosis, lumbar region, with neurogenic claudication [facility] Diagnosis Spinal stenosis of lumbar region, unspecified whether neurogenic claudication present [facility] Diagnosis Spinal stenosis, lumbar region with neurogenic claudication- Primary [facility] Diagnosis Spinal stenosis, lumbar region with neurogenic claudication [facility] Diagnosis Abnormal finding of diagnostic imaging- Primary Other nonspecific (abnormal) findings on radiological and other examinations of body structure [facility] Diagnosis Abnormal finding of diagnostic imaging- Primary Other nonspecific (abnormal) findings on radiological and other examinations of body structure [facility] Diagnosis Other hydronephrosis- Primary Bladder mass Other specified disorders of bladder [facility] Diagnosis Abnormal finding of diagnostic imaging Other nonspecific (abnormal) findings on radiological and other examinations of body structure Hydronephrosis, unspecified hydronephrosis type [facility]* Diagnosis Bilateral hydronephrosis- Primary Hydronephrosis Bladder mass Other specified disorders of bladder Hydronephrosis, unspecified hydronephrosis type Mild protein-calorie malnutrition (HCC) Malnutrition of mild degree Morbid (severe) obesity due to excess calories (HCC) documented [facility] encounter [facility]* Diagnosis 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 of unspecified nature of bladder [facility]* Diagnosis Hydronephrosis, unspecified hydronephrosis type [facility]* Diagnosis Hydronephrosis, unspecified hydronephrosis type- Primary Urinary tract infection without hematuria, site unspecified [facility]* Diagnosis Hydronephrosis, unspecified hydronephrosis type [facility]* Diagnosis Hydronephrosis, unspecified hydronephrosis type- Primary Bladder wall thickening Other specified disorders of bladder Neurogenic bladder Neurogenic bladder, NOS documented [facility] encounter [facility]* Diagnosis Onset Date Resolution Status Cervical myelopathy acuteDecreased activities of daily living (ADL)acuteDegenerative lumbar disc acuteHyperlipidemiaacuteLeft foot dropacuteLumbar radiculopathyacuteObesity chronic [facility] Work Phone: Evaluation note* Diagnosis Onset Date Resolution Status Cervical myelopathy acuteDecreased activities of daily living (ADL)acuteDegenerative lumbar disc acuteHyperlipidemiaacuteLeft foot dropacuteLumbar radiculopathyacuteShakiness acuteObesitychronic [facility] Work Phone: Evaluation note* Diagnosis Onset Date Resolution Status Cervical myelopathy acuteDecreased activities of daily living (ADL)acuteDegenerative lumbar disc acuteHyperlipidemiaacuteLeft foot dropacuteLumbar radiculopathyacuteShakiness acuteObesitychronicImpaired mobilityacute [facility] Work Phone: Evaluation note* Diagnosis Spinal stenosis, lumbar region with neurogenic claudication- Primary Spinal stenosis of cervical region Spinal stenosis in cervical region S/P cervical spinal fusion Arthrodesis status documented in this encounter [facility] note* Diagnosis Onset Date Resolution Status Admit Date Chronic UTI acuteNovember 2024 1:07pmDecreased mobilityacuteNovember 2024 1:07pm Lumbar radiculopathyacuteNovember 2024 1:07pmSkin breakdownacuteNovember 2024 1:07pm [facility] Work Phone: Hospital Discharge instructions No data available for this section [facility] No data available for this section [facility] Qasim reason for referral (narrative)* Outpatient Procedure (Routine) - Pending ReviewSpecialtyDiagnoses / ProceduresReferred By Contact Referred To [facility]NE[facility]OLOGICAL INSTITUTE Diagnoses Cervical disc disorder with radiculopathy Right arm weakness Procedures EMG(NEURO/NI) NERVE CONDUCTION STUDIES 9-10 STUDIES Bryce Lara APRN.CNP [address] [place] [address] Neurological [place] [address] [place] [address] Ref[address] [facility] DateExpiration DateVisits RequestedVisits [id number] Review Auto-Generated Referral / [facility] for referral (narrative)* Diagnostic Procedure Only (Routine) - ClosedSpecialtyDiagnoses / ProceduresReferred By ContactReferred To ContactXR IMAGING Diagnoses Spinal stenosis of lumbar region, unspecified whether neurogenic claudication present Procedures XR SCOLIOSIS PA STAND/LAT 2V RADEX ENTIR THRC LMBR CRV SAC SPI W/SKULL 2/3 Moises Snyder MD [address] [place] [address] Xr Imaging Referral IDStatusReasonStart DateExpiration DateVisits RequestedVisits [id number] Auto-Generated Referral * MRI/CT (Routine) - AuthorizedSpecialtyDiagnoses / ProceduresReferred By ContactReferred To ContactMR IMAGING Diagnoses Spinal stenosis of lumbar region, unspecified whether neurogenic claudication present Procedures MRI LUMBAR SPINE WO IVCON MRI SPINAL CANAL LUMBAR W/O CONTRAST MATERIAL Moises Willis MD [address] [facility] [place] [address] Mr Imaging Referral IDStatusReasonStart DateExpiration DateVisits RequestedVisits [id number] Auto-Generated Referral * MRI/CT (Routine) - AuthorizedSpecialtyDiagnoses / ProceduresReferred By ContactReferred To ContactMR IMAGING Diagnoses Spinal stenosis of lumbar region, unspecified whether neurogenic claudication present Procedures MRI THORACIC SPINE WO IVCON MRI SPINAL CANAL THORACIC W/O CONTRAST MATRL Moises Willis MD [address] [place] [address] Mr Imaging Referral IDStatusReasonPratt[place] DateExpiration DateVisits RequestedVisits [id number] Auto-Generated Referral [facility] for referral (narrative)* Diagnostic Procedure Only (Routine) - ClosedSpecialtyDiagnoses / ProceduresReferred By ContactReferred To ContactXR IMAGING Diagnoses Spinal stenosis of lumbar region, unspecified whether neurogenic claudication present Procedures XR SCOLIOSIS PA STAND/LAT 2V RADEX ENTIR THRC LMBR CRV SAC SPI W/SKULL 2/3 VW Moises Willis MD [address] [place] [address] Xr Imaging Referral IDStatusReasonStramer DateExpiration DateVisits RequestedVisits [id number] Auto-Generated Referral / [facility] for referral (narrative)* Diagnostic Procedure Only (Routine) - ClosedSpecialtyDiagnoses / ProceduresReferred By ContactReferred To ContactXR IMAGING Diagnoses Spinal stenosis, lumbar region with neurogenic claudication Procedures XR LUMBAR MOTION 4V AP/LAT/ FLEX/EXT RADEX SPINE LUMBOSACRAL MINIMUM 4 VIEWS Carolin Patel PA-C [address] [place] [address] Xr Imaging [place] [address] Referral IDStatReasonPrattville DateExpiration DateVisits RequestedVisits [id number] Auto-Generated Referral / [facility] for referral (narrative)* Diagnostic Procedure Only (Routine) - ClosedSpecialtyDiagnoses / ProceduresReferred By ContactReferred To ContactUS IMAGING Diagnoses Abnormal finding of diagnostic imaging Hydronephrosis, unspecified hydronephrosis type Procedures US KIDNEY/BLADDER US RETROPERITONEAL REAL TIME W/IMAGE COMPLETE Janina Hadley APRN.ACETYLENE TORCH BURNER [address] [place] [id number] Us Imaging [place] [address] Referral IDStausReasonPrattville DateExpiration DateVisits RequestedVisits [id number] Auto-Generated Referral / [facility] for referral (narrative)* Diagnostic Procedure Only (Routine) - ClosedSpecialtyDiagnoses / ProceduresReferred By ContactReferred To ContactUS IMAGING Diagnoses Hydronephrosis, unspecified hydronephrosis type Procedures US KIDNEY/BLADDER US RETROPERITONEAL REAL TIME W/IMAGE COMPLETE Apurva Campa MD [address] [place] [address] Us Imaging [place] [address] Referral IDStatusReasonStart DateExpiration DateVisits RequestedVisits [id number] Auto-Generated Referral [facility] for referral (narrative)* Diagnostic Procedure Only (Routine) - AuthorizedSpecialtyDiagnoses / ProceduresReferred By Contact Referred To ContactUS IMAGING Diagnoses Hydronephrosis, unspecified hydronephrosis type Procedures US PELVIS BLADDER US PELVIC NONOBSTETRIC IMAGE DCMTN LIMITED/F/U Heather Fernandes APRN.ACETYLENE TORCH BURNER [address] [place] [address] Us Imaging [place] [address] Referral IDStatusReasonStart DateExpiration DateVisits RequestedVisits [id number] Auto-Generated Referral * Diagnostic Procedure Only (Routine) - AuthorizedSpecialtyDiagnoses / ProceduresReferred By ContactReferred To ContactUS IMAGING Diagnoses Hydronephrosis, unspecified hydronephrosis type Procedures US KIDNEY/BLADDER US RETROPERITONEAL REAL TIME W/IMAGE COMPLETE Heather Fernandes APRN.ACETYLENE TORCH BURNER [address] [place] [phone] Us Imaging [place] [address] Referral IDStatusReasonStart DateExpiration DateVisits RequestedVisits [id number] Auto-Generated Referral [facility] for referral (narrative)* Diagnostic Procedure Only (Routine) - ClosedSpecialtyDiagnoses / ProceduresReferred By ContactReferred To ContactUS IMAGING Diagnoses Hydronephrosis, unspecified hydronephrosis type Procedures US KIDNEY/BLADDER US RETROPERITONEAL REAL TIME W/IMAGE COMPLETE Heather Fernandes APRN.ACETYLENE TORCH BURNER [address] [place] [address] Us Imaging [place] [address] Referral IDStatusReasonStart DateExpiration DateVisits RequestedVisits [id number] Auto-Generated Referral / [facility] for referral (narrative)* Diagnostic Procedure Only (Routine) - AuthorizedSpecialtyDiagnoses / ProceduresReferred By Contact Referred To ContactUS IMAGING Diagnoses Hydronephrosis, unspecified hydronephrosis type Procedures US KIDNEY/BLADDER US RETROPERITONEAL REAL TIME W/IMAGE COMPLETE Heather Fernandes APRN.MERLYN [address] [place] [address] Us Imaging [place] [address] Referral IDStatusReasonStramer DateExpiration DateVisits RequestedVisits [id number] Auto-Generated Referral / [facility] for referral (narrative)No reason for referral information availableC[facility] Work Phone: [facility] Narrative* Diagnostic Procedure Only (Routine) - ClosedSpecialtyDiagnoses / ProceduresReferred By ContactReferred To ContactXR IMAGING Diagnoses Spinal stenosis of lumbar region, unspecified whether neurogenic claudication present Procedures XR SCOLIOSIS PA STAND/LAT 2V RADEX ENTIR THRC LMBR CRV SAC SPI W/SKULL 2/3 Moises Snyder MD [address] [place] [id number] Xr Imaging Referral IDStatusReasonStart DateExpiration DateVisits RequestedVisits [id number] Auto-Generated Referral / [facility] for visit Narrative* Diagnostic Procedure Only (Routine) - ClosedSpecialtyDiagnoses / ProceduresReferred By ContactReferred To Contact US IMAGING Diagnoses Abnormal finding of diagnostic imaging Hydronephrosis, unspecified hydronephrosis type Procedures US KIDNEY/BLADDER US RETROPERITONEAL REAL TIME W/IMAGE COMPLETE Janina Hadley, PLACE CHANGE ROOF BOLTER.ACETYLENE TORCH BURNER [address] [place] [phone] Us Imaging [place] [address] Referral IDStatusReasonStart DateExpiration DateVisits RequestedVisits [id number] Auto-Generated Referral / [facility] for visit Narrative* Diagnostic Procedure Only (Routine) - ClosedSpecialtyDiagnoses / ProceduresReferred By ContactReferred To Contact US IMAGING Diagnoses Hydronephrosis, unspecified hydronephrosis type Procedures US KIDNEY/BLADDER US RETROPERITONEAL REAL TIME W/IMAGE COMPLETE Apurva Campa MD [address] [place] [address] Us Imaging [place] [address] Referral IDStatusReasonPr[place] DateExpiration DateVisits RequestedVisits [id number] Auto-Generated Referral / [facility] for visit Narrative* Diagnostic Procedure Only (Routine) - ClosedSpecialtyDiagnoses / ProceduresReferred By ContactReferred To Contact US IMAGING Diagnoses Hydronephrosis, unspecified hydronephrosis type Procedures US KIDNEY/BLADDER US RETROPERITONEAL REAL TIME W/IMAGE COMPLETE Heather Fernandes, PLACE CHANGE ROOF BOLTER.ACETYLENE TORCH BURNER [address] [place] [phone] Us Imaging [facility] Referral IDStatusReasonStramer DateExpiration DateVisits RequestedVisits [id number] Auto-Generated Referral / [facility] Summary Purpose Family History Relationship Condition Age at Onset Recorded Date/T steven Not Specified Presence of cardiac pacemaker Unknown HypertensionUnknownHyperlipidemiaUnknownfatherMalignant neoplasm of liverUnknown brotherHyperlipidemiaUnknown Relationship Condition Age at Onset Recorded Date/T steven Not Specified Presence of cardiac pacemaker Unknown HypertensionUnknownHyperlipidemiaUnknownfatherMalignant neoplasm of liverUnknown brotherHyperlipidemiaUnknownfatherMalignant neoplasmUnknownDeceasedUnknown grandparentHeart diseaseUnknowngrandparentDiabetes mellitusUnknowngrandparent DeceasedUnknownDiabetes mellitusUnknownNot SpecifiedHypertensionUnknown Relationship Condition Age at Onset Recorded Date/T steven mother Presence of cardiac pacemaker Unknown HypertensionUnknownHyperlipidemiaUnknownfatherMalignant neoplasm of liverUnknown brotherHyperlipidemiaUnknownfatherMalignant neoplasmUnknownDeceasedUnknown grandparentHeart diseaseUnknowngrandparentDiabetes mellitusUnknowngrandparent DeceasedUnknownDiabetes mellitusUnknownmotherHypertensionUnknown Advance Directives TypeDate RecordedPatient RepresentativeExplanationAdvance Directives and Living WillPower of AttorneyCode StatusDate ActivatedDate InactivatedCommentsFull Code 09/03/2018 3:56 AM09/07/2018 2:02 AMFull Code09/03/2018 3:56 AM09/03/2018 3:56 AM Full Code08/30/2018 10:15 PM08/31/2018 8:47 PMFull Code08/30/2018 10:07 PM08/30/2018 10:15 PMFull Code06/21/2017 2:09 PM06/25/2017 12:45 AM Advance Directive Response Recorded Date/ Time Advance Directives No October 9:10am Code StatusDate ActivatedDate InactivatedCommentsFull Code09/03/2018 3:56 AM 09/07/2018 2:02 AMCode StatusDate ActivatedDate InactivatedCommentsFull Code 09/03/2018 3:56 AM09/03/2018 3:56 AMFull Code08/30/2018 10:15 PM08/31/2018 8:47 PM Full Code08/30/2018 10:07 PM08/30/2018 10:15 PMFull Code06/21/2017 2:09 PM06/25/2017 12:45 AM Advance Directive Response Recorded Date/ [...] Skin breakdown December 13, 2024 1 :07pm Chief Complaint E55.9 E78.5 R73.9 Chief Complaint n31.9 e78.5 i47.1 z8 6.711 z98.84 Chief Complaint Wants scooter Reason for Visit Cervical myelopathy Decreased activities of daily living (ADL) Degenerative lumbar disc Hyperlipidemia Left foot drop Lumbar radiculopathy Obesity Chief Complaint Wants scooter Reason for Visit Cervical myelopathy Decreased activities of daily living (ADL) Degenerative lumbar disc Hyperlipidemia Left foot drop Lumbar radiculopathy Shakiness Obesity Chief Complaint Wants scooter E11.9 E78.5 power wheelchairReason for VisitCervical myelopathy Decreased activities of daily living (ADL) Degenerative lumbar disc Hyperlipidemia Left foot drop Lumbar radiculopathy Shakiness Obesity Impaired mobility Chief Complaint Admit Date follow up December 13, 2024 1 :07pm Reason for Visit Admit Date Chronic UTI December 13, 2024 1 :07pm Decreased mobility December 13, 2024 1 :07pm Lumbar radiculopathy December 13, 2024 1:07pm Skin breakdown December 13, 2024 1 :07pm Reason for Visit Admit Date BMI 50.0-59.9, adult December 13, 2024 1:07pm Chronic UTI December 13, 2024 1 :07pm Decreased mobility December 13, 2024 1 :07pm Lumbar radiculopathy December 13, 2024 1:07pm Skin breakdown December 13, 2024 1 :07pm Reason for Referral SpecialtyDiagnoses / ProceduresReferred By ContactReferred To ContactCT IMAGING Diagnoses Hydronephrosis, unspecified hydronephrosis type Procedures CT UROGRAM WO/W IVCON CT ABD & PELVIS W/WO CONTRST 1+ BODY REGNS Katheryn, Apurva, MD [address] [place] [address] Ct Imaging [place] [address] Referral IDStatusReasonStart DateExpiration DateVisits RequestedVisits [id number] Review Auto-Generated Referral [id number] / ProceduresReferred By ContactReferred To ContactUrology Diagnoses Other hydronephrosis Bladder mass Procedures CONSULT TO UROLOGY OFFICE/OUTPATIENT [facility] 60 MINUTES Janina Hadley, PLACE CHANGE ROOF BOLTER.ACETYLENE TORCH BURNER [address] [place] [address] Referral IDStatusReasonStart DateExpiration DateVisits RequestedVisits [id number] PCP Requested Referral /[id number] / ProceduresReferred By ContactReferred To ContactMR IMAGING Diagnoses Spinal stenosis of lumbar region, unspecified whether neurogenic claudication present Procedures MRI LUMBAR SPINE WO IVCON MRI SPINAL CANAL LUMBAR W/O CONTRAST MATERIAL Moises Willis MD [address] [place] [address] Mr Imaging [place] [address] Referral IDStatusReasonPrattville DateExpiration DateVisits RequestedVisits [id number] Auto-Generated Referral /[id number] / ProceduresReferred By ContactReferred To ContactMR IMAGING Diagnoses Spinal stenosis of lumbar region, unspecified whether neurogenic claudication present Procedures MRI THORACIC SPINE WO IVCON MRI SPINAL CANAL THORACIC W/O CONTRAST MATRL Moises Willis MD [address] [place] [address] Mr Imaging [place] [address] Referral IDStatusReasonStramer DateExpiration DateVisits RequestedVisits [id number] Auto-Generated Referral /[id number] / ProceduresReferred By ContactReferred To ContactCT IMAGING Diagnoses Spinal stenosis of lumbar region with neurogenic claudication Procedures CT LUMBAR SPINE WO IVCON CT LUMBAR SPINE W/O CONTRAST MATERIAL Carolin Patel PA-C [address] [place] [address] Ct Imaging [place] [address] Referral IDStatusReasonStart DateExpiration DateVisits RequestedVisits [id number] Review Auto-Generated Referral /[id number] / ProceduresReferred By ContactReferred To ContactXR IMAGING Diagnoses Spinal stenosis, lumbar region with neurogenic claudication Procedures XR LUMBAR MOTION 4V AP/LAT/ FLEX/EXT RADEX SPINE LUMBOSACRAL MINIMUM 4 VIEWS Carolin Patel PA-C [address] [place] [address] Xr Imaging [place] [address] Referral IDStatusReasonStart DateExpiration DateVisits RequestedVisits [id number] Review Auto-Generated Referral /[id number] / ProceduresReferred By ContactReferred To Contact Diagnoses Spinal stenosis in cervical region Arm weakness Procedures CONSULT TO SPINE SURGERY OFFICE/OUTPATIENT [facility] 60-74 MINUTES Bryce Lara APRN.ACETYLENE TORCH BURNER [facility] [place] [address] Referral IDStatusReasonStart DateExpiration DateVisits RequestedVisits [id number] PCP Requested Referral /[id number] / ProceduresReferred By ContactReferred To ContactRadiology Diagnoses Spinal stenosis, cervical region Procedures CT CERVICAL SPINE WO CONTRAST Bryce Lara APRN - [facility] [address] [place] [address], [place] [address] [place] [address] Referral IDStatusReasonStart DateExpiration DateVisits RequestedVisits [id number]/5/20236/[id number] / ProceduresReferred By ContactReferred To ContactRadiology Diagnoses Cervical myelopathy (HCC) Procedures MRI CERVICAL SPINE WO CONTRAST Lon Antonio, DO [address] [place] [address] Referral IDStatusReasonStart DateExpiration DateVisits RequestedVisits [id number]/ Reason consult and treat Diagnosis 1 Spinal stenosis of l umbar region with neurogenic claudication (M48.062) Referral Organization [facility] [place] Referring Provider First Name Lon Referring Provider Last Name Evelia Referring Provider Specialty Family Prac cleo Referred Organization [facility] Referred Provider Caprice Eubanks Referred Address [address] [facility],[address],[address] Referred Provider Specialty Neurological Surgery Referral Priority [...] section and content) DATE CREATED AUTHOR 07/17/2018 [facility] DATE CREATED AUTHOR AUTHOR'S ORGANIZ ATION 12/30/2018 [facility] DATE CREATED AUTHOR AUTHOR'S ORGANIZ ATION 12/31/2018 [facility] DATE CREATED AUTHOR AUTHOR'S ORGANIZ ATION 12/29/2020 [facility] DATE CREATED AUTHOR AUTHOR'S ORGANIZ ATION 04/10/2022 [facility] DATE CREATED AUTHOR AUTHOR'S ORGANIZ ATION 06/24/2022 [facility] DATE CREATED AUTHOR AUTHOR'S ORGANIZ ATION 07/20/2022 [facility] DATE CREATED AUTHOR AUTHOR'S ORGANIZ ATION 05/19/2023 [facility] DATE CREATED AUTHOR AUTHOR'S ORGANIZ ATION 08/05/2023 [facility] DATE CREATED AUTHOR AUTHOR'S ORGANIZ ATION 01/25/2024 [facility] REASON FOR VISIT (unrecogniz ed section and content) SpecialtyDiagnoses / ProceduresReferred By ContactReferred To ContactRadiology Diagnoses Cervical myelopathy (HCC) Procedures MRI CERVICAL SPINE WO CONTRAST Lon Antonio DO [address] [place] [address] Referral IDStatusReasonStart DateExpiration DateVisits RequestedVisits [id number]/27/20233/[id number] / Procedures Referred By ContactReferred To ContactRadiology Diagnoses Spinal stenosis, cervical region M48.02 (ICD-10-CM) - Spinal stenosis, cervical region Procedures CT CERVICAL SPINE WO CONTRAST CHG CT CERVICAL SPINE W/O CONTRAST MATERIAL [address]94 - CHG CT CERVICAL SPINE W/O CONTRAST MATERIAL Lon I[facility], [facility] [address] [place] [address] Referral IDStatusReasonStart DateExpiration DateVisits RequestedVisits [id number] Review/[id number]ubexc CommentsMRI ReportReasonCommentsPatient UpdateReasonCommentsNew PatientSpecialty Diagnoses / ProceduresReferred By ContactReferred To Contact Diagnoses Spinal stenosis in cervical region Arm weakness Procedures CONSULT TO SPINE SURGERY OFFICE/OUTPATIENT [facility] 60-74 MINUTES Bryce Lara, LEATHA.ACETYLENE TORCH BURNER [address] [place] [address] Referral IDStatusReasonStart DateExpiration DateVisits RequestedVisits [id number] PCP Requested Referral /[id number]k PatientSpecialtyDiagnoses / ProceduresReferred By ContactReferred To ContactMR IMAGING Diagnoses Spinal stenosis of lumbar region, unspecified whether neurogenic claudication present Procedures MRI THORACIC SPINE WO IVCON MRI SPINAL CANAL THORACIC W/O CONTRAST Moises Lynch MD [address] [place] [address] Mr Imaging [place] [address] Referral IDStatusReasonStart DateExpiration DateVisits RequestedVisits [id number] Auto-Generated Referral /[id number]e PatientFollow UpSpecialtyDiagnoses / ProceduresReferred By ContactReferred To ContactNeurosurgery / SPINE SURGERY Diagnoses Spinal stenosis of lumbar region with neurogenic claudication Procedures EST NI PATIENT Moises Willis MD [address] [place] [address] Moises Willis MD [address] [place] [address] Referral IDStatusReasonStart DateExpiration DateVisits RequestedVisits [id number]/13/202312/730529YyxuwhWwzkjaozUksng [address] SpecialtyDiagnoses / ProceduresReferred By ContactReferred To ContactXR IMAGING Diagnoses Spinal stenosis, lumbar region with neurogenic claudication Procedures XR LUMBAR MOTION 4V AP/LAT/ FLEX/EXT RADEX SPINE LUMBOSACRAL MINIMUM 4 VIEWS Carolin Patel PA-C [address] [place] [address] Xr Imaging [place] [address] Referral IDStatusReasonStart DateExpiration DateVisits RequestedVisits [id number] Auto-Generated Referral /[id number] ReviewReasonCommentsConsult SpecialtyDiagnoses / ProceduresReferred By ContactReferred To ContactUrology Diagnoses Other hydronephrosis Bladder mass Procedures CONSULT TO UROLOGY OFFICE/OUTPATIENT [facility] [address] MINUTES Janina Hadley, PLACE CHANGE ROOF BOLTER.ACETYLENE TORCH BURNER [address] [place] [address] Referral IDStatusReasonStart DateExpiration DateVisits RequestedVisits [id number] PCP Requested Referral /[id number] UpReasonCommentsFollow UpSpecialty Diagnoses / ProceduresReferred By ContactReferred To ContactUrology / UROLOGY Diagnoses Unspecified hydronephrosis f/u after US Return in about 1 month (around 07/04/2023) for rto for evaluation of hydro with US prior . Procedures OFFICE/OUTPATIENT NEW HIGH MDM 60 MINUTES OFFICE/OUTPATIENT ESTABLISHED HIGH MDM 40 MIN EST UROL Lon Ibrahim [address] [place] [address] Heather Fernandes, PLACE CHANGE ROOF BOLTER.ACETYLENE TORCH BURNER [address] [place] [address] Referral IDStatusReasonStart DateExpiration DateVisits RequestedVisits [id number]/1/202412/31/[id number] Up Care Team (unrecognized sect ion and content) Team Status: Active Member Role Status Dates Lon Ibrahim DO Primary Care Provider Active Team Status: Inactive Member Role Status Dates Kelly Mcdowell APRN Attending Provider Active Team Status: Inactive Member Role Status Dates Lon Ibrahim DO Primary Care Provider, Attending Provi kenneth Active Team MemberRelationshipSpecialtyStart DateEnd Date Lon Ibrahim DO PCP - GeneralFamily Medicine02/23/19Team MemberRelationshipSpecialtyStart DateEnd Date Lon Ibrahim [address] [place] [address] PCP - GeneralFamily Medicine06/05/22 Ann Marie Mccord, ACETYLENE TORCH BURNER [address] [place] [address] ReferringFamily Medicine06/19/22Team MemberRelationshipSpecialtyStart DateEnd Date Lon Ibrahim DO PCP - GeneralFamily Medicine02/23/19Team MemberRelationshipSpecialtyStart DateEnd Date Lon Ibrahim [address] [place] [phone] PCP - GeneralFamily Medicine06/05/22 Ann Marie Mccord, ACETYLENE TORCH BURNER [address] [place] [address] ReferringFamily Medicine06/19/22Team MemberRelationshipSpecialtyStart DateEnd Date Lon Ibrahim [address] [place] [phone] PCP - GeneralFamily Medicine06/05/22 Ann Marie Mccord, ACETYLENE TORCH BURNER [address] [place] [address] ReferringFamily Medicine06/19/22Team MemberRelationshipSpecialtyStart DateEnd Date Lon Ibrahim [address] [place] [phone] PCP - GeneralFamily Medicine06/05/22 Ann Marie Mccord, ACETYLENE TORCH BURNER [address] [place] [address] ReferringFamily Medicine06/19/22Team MemberRelationshipSpecialtyStart DateEnd Date Lon Irbahim [address] [place] [phone] PCP - GeneralFamily Medicine06/05/22 Ann Marie Mccord, ACETYLENE TORCH BURNER [address] [place] [address] ReferringFamily Medicine06/19/22Team MemberRelationshipSpecialtyStart DateEnd Date Lon Ibrahim [address] [place] [address] PCP - GeneralFamily Medicine06/05/22 Ann Marie Mccord, MERLYN [address] [place], [place] [address] ReferringFamily Medicine06/19/22Team MemberRelationshipSpecialtyStart DateEnd Date Lon Ibrahim [address] [place] [phone] PCP - GeneralFamily Medicine06/05/22 Ann Marie Mccord CNP [address] [place] [address] ReferringFamily Medicine06/19/22Team MemberRelationshipSpecialtyStart DateEnd Date Lon Ibrahim [address] [place] [phone] PCP - GeneralFamily Medicine06/05/22 Ann Marie Mccord, MERLYN [address] [place] [address] ReferringFamily Medicine06/19/22Team MemberRelationshipSpecialtyStart DateEnd Date Lno Ibrahim [address] [place] [place] [phone] PCP - GeneralFamily Medicine06/05/22 Ann Marie Mccord CNP [address] [place] [address] ReferringFamily Medicine06/19/22Team MemberRelationshipSpecialtyStart DateEnd Date Lon Ibrahim [address] [place] [phone] PCP - GeneralFamily Medicine06/05/22 Ann Marie Mccord, MERLYN [address] [place] [address] ReferringFamily Medicine06/19/22Team MemberRelationshipSpecialtyStart DateEnd Date Lon Ibrahim [address] [place] [phone] PCP - GeneralFamily Medicine06/05/22 Ann Marie Mccord, MERLYN [address] [address] ReferringFamily Medicine06/19/22Team MemberRelationshipSpecialtyStart DateEnd Date Lon Ibrahim [address] [place] [phone] PCP - GeneralFamily Medicine06/05/22 Ann Marie Mccord, MERLYN [address] [place] [id number] ReferringFamily Medicine06/19/22Team MemberRelationshipSpecialtyStart DateEnd Date Lon Ibrahim [address] [place] [phone] PCP - GeneralFamily Medicine06/05/22 Ann Marie Mccord, MERLYN [address] [address] ReferringFamily Medicine06/19/22Team MemberRelationshipSpecialtyStart DateEnd Date Lon Ibrahim [address] [place] [phone] PCP - GeneralFamily Medicine06/05/22 Ann Marie Mccord, MERLYN [address] [facility] [address] [place] [address] ReferringFamily Medicine06/19/22Team MemberRelationshipSpecialtyStart DateEnd Date Lon Ibrahim [address] [place] [phone] PCP - GeneralFamily Medicine06/05/22 Ann Marie Mccrod, ACETYLENE TORCH BURNER [address] [place], [place] [phone] ReferringFamily Medicine06/19/22Team MemberRelationshipSpecialtyStart DateEnd Date Lon Ibrahim [address] [place] [phone] PCP - GeneralFamily Medicine06/05/22 Ann Marie Mccord, ACETYLENE TORCH BURNER [address] [facility] [address] [place], [place] [phone] ReferringFamily Medicine06/19/22Team MemberRelationshipSpecialtyStart DateEnd Date Lon Ibrahim [address] [place] [address] PCP - GeneralFamily Medicine06/05/22 Ann Marie Mcocrd, ACETYLENE TORCH BURNER [address] [facility] [address] [place], [place] [phone] ReferringFamily Medicine06/19/22Team MemberRelationshipSpecialtyStart DateEnd Date Lon Ibrahim [address] [place] [phone] PCP - GeneralFamily Medicine06/05/22 Ann Marie Mccord, ACETYLENE TORCH BURNER [address] [place] [address] ReferringFamily Medicine06/19/22Team MemberRelationshipSpecialtyStart DateEnd Date LindaLon perez Bc [address] [facility] [place] [phone] PCP - [facility]06/05/22 Ann Marie Mccord CNP [address] [place] [phone] [facility]erring[facility] Team Status: Inactive Member Role Status Dates Lon Ibrahim DO Primary Care Provide r, Attending Provider Active Start: August 03, 2023 End: August 03, 2023 Team Status: Active Member Role Status Dates Lon Ibrahim DO Primary Care Provide r, Attending Provider Active Start: August 03, 2023 Team Status: Inactive Member Role Status Dates Lon Ibrahim DO Primary Care Provide r, Attending Provider Active Start: October 06, 2023 End: October 06, 2023Team MemberRelationshipSpecialtyStart DateEnd Date Lindaana Lon Camara [address] [facility] [place] [phone] PCP - [facility]06/05/22 Ann Marie Mccord CNP [address] [facility] [address] [place] [address] Referring[facility]06/19/22 Team Status: Active Member Role/Relationship Status Dates Lon Ibrahim DO Primary Care Provider Active Team Status: Inactive Member Role/Relationship Status Dates Lon Ibrahim DO Primary Care Provider Active Sta rt: December 13, 2024 End: December 13rose Ibrahim DOAttending ProviderActiveStart: December 13, 2024 End: December 13, 2024 Team Status: Active Member Role/Relationship Status Dates Lon Ibrahim DO Primary Care Provider Active Sta rt: December 13, 2024 Lon Ibrahim DOAttending ProviderActiveStart: December 13, 2024 Team Status: Inactive Member Role/Relationship Status Dates Lon Ibrahim DO Primary Care Provider Active Sta rt: December 13, 2024 End: December 13rett Evelia , DOAttending ProviderActiveStart: December 13, 2024 End: December 13, 2024 Goals (unrecognized section and content) Goals may be documented in a n alternate section Source Comments (unrecognize d section and content) In the event this informatio n is protected by the Federal Confidentiality of Alcohol and Drug Abuse Patient Records regulations: The Federal rules restrict any use of the information to criminally investigate or prosecute any alcohol or drug abuse patient.[facility] the event this information is protected by the Federal Confidentiality of Alcohol and Drug Abuse Patient Records regulations: The Federal rules restrict any use of the information to criminally investigate or prosecute any alcohol or drug abuse patient.[facility] HospitalIn the event this information is protected by the Federal Confidentiality of Alcohol and Drug Abuse Patient Records regulations: The Federal rules restrict any use of the information to criminally investigate or prosecute any alcohol or drug abuse patient.[facility] HospitalIn the event this information is protected by the Federal Confidentiality of Alcohol and Drug Abuse Patient Records regulations: The Federal rules restrict any use of the information to criminally investigate or prosecute any alcohol or drug abuse patient.[facility] HospitalIn the event this information is protected by the Federal Confidentiality of Alcohol and Drug Abuse Patient Records regulations: The Federal rules restrict any use of the information to criminally investigate or prosecute any alcohol or drug abuse patient.[facility] HospitalIn the event this information is protected by the Federal Confidentiality of Alcohol and Drug Abuse Patient Records regulations: The Federal rules restrict any use of the information to criminally investigate or prosecute any alcohol or drug abuse patient.[facility] HospitalIn the event this information is protected by the Federal Confidentiality of Alcohol and Drug Abuse Patient Records regulations: The Federal rules restrict any use of the information to criminally investigate or prosecute any alcohol or drug abuse patient.[facility] HospitalIn the event this information is protected by the Federal Confidentiality of Alcohol and Drug Abuse Patient Records regulations: The Federal rules restrict any use of the information to criminally investigate or prosecute any alcohol or drug abuse patient.[facility] HospitalIn the event this information is protected by the Federal Confidentiality of Alcohol and Drug Abuse Patient Records regulations: The Federal rules restrict any use of the information to criminally investigate or prosecute any alcohol or drug abuse patient.[facility] HospitalIn the event this information is protected by the Federal Confidentiality of Alcohol and Drug Abuse Patient Records regulations: The Federal rules restrict any use of the information to criminally investigate or prosecute any alcohol or drug abuse patient.[facility] HospitalIn the event this information is protected by the Federal Confidentiality of Alcohol and Drug Abuse Patient Records regulations: The Federal rules restrict any use of the information to criminally investigate or prosecute any alcohol or drug abuse patient.[facility] HospitalIn the event this information is protected by the Federal Confidentiality of Alcohol and Drug Abuse Patient Records regulations: The Federal rules restrict any use of the information to criminally investigate or prosecute any alcohol or drug abuse patient.[facility] HospitalIn the event this information is protected by the Federal Confidentiality of Alcohol and Drug Abuse Patient Records regulations: The Federal rules restrict any use of the information to criminally investigate or prosecute any alcohol or drug abuse patient.[facility] HospitalIn the event this information is protected by the Federal Confidentiality of Alcohol and Drug Abuse Patient Records regulations: The Federal rules restrict any use of the information to criminally investigate or prosecute any alcohol or drug abuse patient.[facility] HospitalIn the event this information is protected by the Federal Confidentiality of Alcohol and Drug Abuse Patient Records regulations: The Federal rules restrict any use of the information to criminally investigate or prosecute any alcohol or drug abuse patient.[facility] HospitalIn the event this information is protected by the Federal Confidentiality of Alcohol and Drug Abuse Patient Records regulations: The Federal rules restrict any use of the information to criminally investigate or prosecute any alcohol or drug abuse patient.[facility] HospitalIn the event this information is protected by the Federal Confidentiality of Alcohol and Drug Abuse Patient Records regulations: The Federal rules restrict any use of the information to criminally investigate or prosecute any alcohol or drug abuse patient.[facility] HospitalIn the event this information is protected by the Federal Confidentiality of Alcohol and Drug Abuse Patient Records regulations: The Federal rules restrict any use of the information to criminally investigate or prosecute any alcohol or drug abuse patient.[facility] HospitalIn the event this information is protected by the Federal Confidentiality of Alcohol and Drug Abuse Patient Records regulations: The Federal rules restrict any use of the information to criminally investigate or prosecute any alcohol or drug abuse patient.[facility] HospitalIn the event this information is protected by the Federal Confidentiality of Alcohol and Drug Abuse Patient Records regulations: The Federal rules restrict any use of the information to criminally investigate or prosecute any alcohol or drug abuse patient.[facility] HospitalIn the event this information is protected by the Federal Confidentiality of Alcohol and Drug Abuse Patient Records regulations: The Federal rules restrict any use of the information to criminally investigate or prosecute any alcohol or drug abuse patient.[facility] HospitalIn the event this information is protected by the Federal Confidentiality of Alcohol and Drug Abuse Patient Records regulations: The Federal rules restrict any use of the information to criminally investigate or prosecute any alcohol or drug abuse patient.[facility] HospitalIn the event this information is protected by the Federal Confidentiality of Alcohol and Drug Abuse Patient Records regulations: The Federal rules restrict any use of the information to criminally investigate or prosecute any alcohol or drug abuse patient.[facility] HospitalIn the event this information is protected by the Federal Confidentiality of Alcohol and Drug Abuse Patient Records regulations: The Federal rules restrict any use of the information to criminally investigate or prosecute any alcohol or drug abuse patient.[facility] HospitalIn the event this information is protected by the Federal Confidentiality of Alcohol and Drug Abuse Patient Records regulations: The Federal rules restrict any use of the information to criminally investigate or prosecute any alcohol or drug abuse patient.[facility] HospitalIn the event this information is protected by the Federal Confidentiality of Alcohol and Drug Abuse Patient Records regulations: The Federal rules restrict any use of the information to criminally investigate or prosecute any alcohol or drug abuse patient.[facility] HospitalIn the event this information is protected by the Federal Confidentiality of Alcohol and Drug Abuse Patient Records regulations: The Federal rules restrict any use of the information to criminally investigate or prosecute any alcohol or drug abuse patient.[facility] FOR RECORDS PERTAINING TO PATIENTS WHO [...] PRIMARY CLINICAL RECORDS. [facility] [employer] [facility]. provides no warranty or guarantee of the accuracy or completeness of information in this document.
[2024-12-14 10:37] LABS: Glucose Urine UA NEGATIVE (NEGATIVE)
== END 2024-12-14 10:02 | disposition home or self-care (01) ==
LOC: LAB 10:03
PROVIDERS: PCP Family Medicine; Visit Provider Family Medicine
DX: R30.0 Dysuria (principal)
CPT/HCPCS: 81003; 87086; 87088; 87186

== ENCOUNTER 2025-01-07 20:12 | Emergency (ER) | payer MEDICARE, SELFPAY ==
[2025-01-07 20:15] VITALS: BP 141/90; PULSE 116; TEMP 36.6; O2SAT 96; BMI 48.8
--- NOTE | 2025-01-07 20:20 | XR_ITS ---
The [address] [address] Patient Name: LUIS DANIEL SMITH MRN: [id number] date: 1970 Sex: F Assigned Patient Location: ER Current Patient Location: Accession/Order Number: [id number] Exam Date: 01/07/2025 20:30 Report Date: 01/08/2025 07:40 At the request of: MARY HAWKINS Procedure: XR ankle RT min 3V CLINICAL HISTORY: Patient fell and has pain from the knee down to the ankle. RIGHT TIBIA AND FIBULA - 2 views COMPARISON: 04/02/2019 AP and lateral views of the right tibia and fibula were obtained. There is osteopenia. There is no acute fracture, dislocation or bony destruction. Mild degenerative changes are present at the knee. The soft tissues are diffusely prominent and there is also subcutaneous edema. XR/XR tibia fibula RT 2V IMPRESSION: NO ACUTE BONY INJURY. RIGHT ANKLE - 3 views COMPARISON: 05/01/2019 AP, lateral and oblique views were obtained. There is osteopenia. There is no acute fracture or dislocation. There may be old fracture deformity at the distal fibula. The talar dome is intact. The soft tissues are diffusely prominent and there is also subcutaneous edema. IMPRESSION: NO ACUTE BONY INJURY. Impression dictated by: Megan Fernandez M.D. 01/08/2025 7:40 AM Dictation Location: [place] [address] Electronically authenticated by: [id number] Y Date: 01/08/2025 07:40
--- NOTE | 2025-01-07 20:20 | XR_ITS ---
The [address] [address] Patient Name: LUIS DANIEL SMITH MRN: [id number] date: 1970 Sex: F Assigned Patient Location: ER Current Patient Location: Accession/Order Number: [id number] Exam Date: 01/07/2025 20:30 Report Date: 01/08/2025 07:40 At the request of: MARY HAWKINS Procedure: XR ankle RT min 3V CLINICAL HISTORY: Patient fell and has pain from the knee down to the ankle. RIGHT TIBIA AND FIBULA - 2 views COMPARISON: 04/02/2019 AP and lateral views of the right tibia and fibula were obtained. There is osteopenia. There is no acute fracture, dislocation or bony destruction. Mild degenerative changes are present at the knee. The soft tissues are diffusely prominent and there is also subcutaneous edema. XR/XR ankle RT min 3V IMPRESSION: NO ACUTE BONY INJURY. RIGHT ANKLE - 3 views COMPARISON: 05/01/2019 AP, lateral and oblique views were obtained. There is osteopenia. There is no acute fracture or dislocation. There may be old fracture deformity at the distal fibula. The talar dome is intact. The soft tissues are diffusely prominent and there is also subcutaneous edema. IMPRESSION: NO ACUTE BONY INJURY. Impression dictated by: Megan Fernandez M.D. 01/08/2025 7:40 AM Dictation Location: [place] [address] Electronically authenticated by: [id number] Y Date: 01/08/2025 07:40
--- NOTE | 2025-01-07 20:23 | ED.LOWEXI1 ---
HPI HPI - Extremity Injury (Lower) General Chief Complaint: Extremity Injury, Lower Stated Complaint: FALL Time Seen by Provider: 01/07/25 20:15 Source: patient Mode of arrival: ambulance Limitations: physical limitation History of Present Illness HPI Narrative: Patient is a 54-year-old female presents to the ER for evaluation of right ankle and lower leg pain. Patient states she was at home using her walker when the walker broke causing her leg to bend forward and then subsequently go back. She denies hitting her head or neck. She required assistance to get up and EMS and local fire department were called and after further discussion of symptoms felt it would be best to get checked out given her history of neuropathy and blood thinner use. Patient is on Eliquis twice daily for history of blood clot in her lung remotely and has not been taken off. 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 Patient states she typically uses a wheelchair but has been able to use a walker in her home as the hallways are more narrow and her brother does live with her. She notes pain being 5 out of 10 just below the right knee involving the philip down to the ankle. She does report a prior history of a fibular fracture. She denies pain to the knee joint or hip region. She denies any low back pain. She denies any loss of consciousness. Patient states she has broken 2 walkers at home in the similar manner but does have a wheelchair. She wears a AFO brace on the left leg with an ongoing history of dropfoot. Patient agreeable to an ice pack but declines the need for any oral pain medication or Tylenol. Patient is alert and oriented x 4 GCS of 15. Denies any loss of consciousness, denies head or neck injury. complaint: Reports leg injury and ankle injury Injury: Right: ankle Place: Reports home Severity: moderate Relieving factors: Reports nothing Exacerbating factors: Reports weight bearing Context: Reports fall Related Data Home Medications ?Medication ?Instructions ?Recorded ?Confirmed apixaban 5 mg tablet (Eliquis) 5 mg PO DAILY 07/25/22 01/07/25 gabapentin 300 mg capsule 300 mg PO BID 07/25/22 01/07/25 metoprolol tartrate 25 mg tablet 25 mg PO DAILY 07/25/22 01/07/25 solifenacin 5 mg tablet 5 mg PO DAILY 07/25/22 01/07/25 gabapentin 600 mg tablet 600 mg PO DAILY 05/26/23 01/07/25 Previous Rx's ?Medication ?Instructions ?Recorded methocarbamol 750 mg tablet 750 mg PO Q8H #20 tabs 05/26/23 Allergies Allergy/AdvReac Type Severity Reaction Status Date / Time adhesive tape AdvReac Intermediate Rash Verified 01/07/25 20:19 Opioid HPI Opioid Management Most Recent Pain and Opioid Data: Last Pain Scale 5 Today, 20:25 Review of Systems ROS Constitutional Denies: fever or chills Eyes Denies: blurry vision Ears, nose, mouth, and throat Denies: throat pain or neck pain Cardiovascular Denies: chest pain, palpitations or edema Gastrointestinal Denies: abdominal pain or nausea Genitourinary Denies: painful urination Musculoskeletal Reports: extremity pain (right ankle. philip s/p fall); Denies: back pain or neck pain Integumentary/Breast Denies: rash Neurological Denies: headache Psychiatric Denies: anxiety PFSH PFSH Social History Smoking status: Never smoker Little interest or pleasure in doing things: not at all Feeling down, depressed, or hopeless: not at all Exam Narrative Exam Narrative: Vital signs reviewed and nurse's notes. The patient is not hypoxic. General: Alert, no acute distress, patient resting comfortably Skin: warm, intact, no pallor noted, no evidence of rash, minimal bruising to the anterior philip without evidence of hematoma formation. Head: Normocephalic, atraumatic Eye: Normal conjunctiva, no exudates Respiratory: No acute distress, lungs CTA Musculoskeletal: No evidence of deformity to the right knee. There is no joint effusion at the knee. No acute swelling to the right lower leg or ankle.. There is no dependent ecchymosis. No erythema or warmth noted. DP and PT pulses are intact 2+. Normal sensation, normal capillary refill less than 2 seconds. There is no cyanosis or mottling noted. The patient has tenderness to Right ankle over lateral malleolus. No pain to patella. Mild soreness to proximal fibula but no chris pain on syndesmotic compression. The patient has no pain or laxity with varus or valgus stressing of knee and no pain to right hip on range of motion. The patient has negative anterior drawer at knee The patient was able to flex and extend although weakness is noted which patient states is baseline from her prior back and neck conditions. Patient was able to hold a gentle SLR. and had no radicular symptoms with SLR. No tenderness noted to the 5th MT, midfoot,. There is no pain with calcaneal squeeze, achilles tendon appears is intact with bowling test and no defect is palpated. The patient has no pelvic instability. The patient has no shortening or rotation noted to the bilateral lower extremities. Neurological: alert and orient x4, Chronic neuropathy in lower legs. Drop foot with AFO on left and pt's right ankle has weakness with dorsiflexion and plantar flexion / Psychiatric: Cooperative Constitutional Vital Signs, click to edit/add: Last Vital Signs Temp 97.8 F 01/07/25 20:15 Pulse 116 H 01/07/25 20:15 Resp 18 01/07/25 20:15 BP 141/90 01/07/25 20:15 Pulse Ox 96 01/07/25 20:15 O2 Del Method Room Air 01/07/25 20:15 Course Vital Signs Vital signs: Vital Signs Temperature 97.8 F 01/07/25 20:15 Pulse Rate 116 H 01/07/25 20:15 Respiratory Rate 18 01/07/25 20:15 Blood Pressure 141/90 01/07/25 20:15 Pulse Oximetry 96 01/07/25 20:15 Oxygen Delivery Method Room Air 01/07/25 20:15 Temperature 97.8 F 01/07/25 20:15 Pulse Rate 116 H 01/07/25 20:15 Respiratory Rate 18 01/07/25 20:15 Blood Pressure 141/90 01/07/25 20:15 Pulse Oximetry 96 01/07/25 20:15 Oxygen Delivery Method Room Air 01/07/25 20:15 MDM - Extremity Injury (Lower) MDM Narrative Medical decision making narrative: Patient presents via EMS for evaluation of right lower leg injury status post fall. She is on Eliquis. She denies any head or neck injury. Ice pack was applied to the right ankle. She has no pain with examination of her knee or hip and symptoms appear to be localized to the anterior philip and right ankle. No foot pain. X-rays were performed and discussed with patient at bedside. The weakness noted on exam appears to be baseline per patient, we discussed the need for follow-up to reevaluate this as she may require further splinting with her history of AFOs on the left. Patient states she could not walk prior to her neck surgery that was performed several years ago and she has been on a slow rehab process since that time with slow improvements. X-rays three-view right ankle preliminary review shows osteopenia and remote changes from her prior distal fibular fracture there is no acute fracture ankle mortise generally preserved with some artifact from overlying soft tissue densities. The tib-fib x-ray 2 view shows no acute fracture and some degenerative changes that appear tricompartmental at the knee. Grossly normal alignment. Discussed patient's x-rays, formal reports will be pending. Given her osteopenia and history of peripheral neuropathy with limited mobility I strongly encouraged her to follow-up with orthopedics or podiatry for reevaluation and possible repeat x-rays to rule out occult fracture. At this time given her exam and x-rays do not feel she warrants any type of splint. She may use her wheelchair at home until she can get a replacement for her walker. She is likely a high fall risk regardless given her past history but appears to be able to navigate her home. We discussed the importance of mitigating falls given her blood thinner use and the potential for injury. She is encouraged to get bone health studies done with her PCP if she has not done this as well in the past such as a DEXA scan and a prior history of right ankle fracture. The patient is to followup with primary care physician in next 2-3 days or to return to the emergency department should any of the signs or symptoms worsen or new symptoms develop. Patient had questions answered. The patient agrees with the following Diagnosis and Treatment plan and the patient will be discharged home. We did discuss the process to obtain a new walker as she has broken two recently at home. The patient states she is supposed to have an appointment with physical therapy at her PCPs office for evaluation of this. Differential Diagnosis Differential diagnosis: Likely ankle sprain and strain and other (Fibula fracture, contusion) Discharge Plan Discharge Chief Complaint: Extremity Injury, Lower Clinical Impression: Ankle pain, right, Acute pain of right lower extremity, Contusion of lower leg, right Patient Disposition: Home, Self-Care Time of Disposition Decision: 20:58 Condition: Good Prescriptions / Home Meds: No Action Eliquis 5 mg tablet 5 mg PO DAILY gabapentin 300 mg capsule 300 mg PO BID metoprolol tartrate 25 mg tablet 25 mg PO DAILY solifenacin 5 mg tablet 5 mg PO DAILY gabapentin 600 mg tablet 600 mg PO DAILY methocarbamol 750 mg tablet 750 mg PO Q8H Qty: 20 0RF Print Language: Yoruba Instructions: Contusion in Adults (ED) Referrals: LON IBRAHIM [Primary Care Provider, Family Practice] - 1 week Aryan Fragoso DPM [Physician, Podiatry] - As needed CARI LEAL [Physician, Family Practice] - 1 week Discharge Date/Time: 01/07/25 21:31
--- NOTE | 2025-01-07 20:26 | PC.NURSE ---
this patient complains of right ankle pain onset 1 hour ago, while walking at home with her walker. while using this walker, it broke and patient fall backwards on her butt and twisted her right ankle. this patient denies hitting my head and no loc. this patient vooices no other complaints, needs and shows no signs of distress
--- OUTSIDE RECORDS SUMMARY | 2025-01-07 20:35 | XMS_ITS | CCD ---
Author Organization [facility] Care Team Providers Care Vegetable Vendor Name Role Phone KAELYN ZAIDI Referring Unavailable TUSHAR YOUNG Primary Care Unavailable Tushar Young Primary Care Provider KAELYN ZAIDI Admitting Unavailable KAELYN ZAIDI Attending Unavailable TUSHAR YOUNG M Primary Care Unavailable GROUP, PSYCH COVERAGE Consulting Unavailabl e TUSHAR YOUNG Primary Care Unavailable TIM KIM Consulting Unavailable FIDEL GUERRERO Admitting Unavailable IONA VANG Attending Unavailable YOLANDA FIDEL Consulting Unavailable ARLINE, MOHAMMED S Consulting Unavailable JANINA GORDON Referring Unavailable TUSHAR YOUNG Primary Care Unavailable JANINA GORDON Referring Unavailable TUSHAR YOUNG M Primary Care Unavailable ME Procedure Practitioner Unavailab LON Arceo Primary Care [...] Provider Unavailab Lon Arceo Primary Care Provider [phone] Ann Marie Mccord CNP Unavailable [phone] Nicole KEENE Attending Unavailable Nicole KEENE Attending Unavailable Nicole KEENE Attending Unavailable RICE, Nicole W Attending Unavailable RICE, Nicole W Referring Unavailable RICE, Nicole W Attending Unavailable Cheatham, Mihir Delgadillo Attending Unavailable RICE, Nicole W Attending Unavailable RICE, Nicole W Referring Unavailable Cheatham, Mihir L Attending Unavailable MARYJANE, ANGELITA Meade Attending Unavailable RICE, Nicole W Admitting Unavailable RICE, Nicole W Attending Unavailable RICE, Nicole W Referring Unavailable RICE, Nicole W Attending Unavailable RICE, Nicole W Admitting Unavailable MARYJANE, ANGELITA E Admitting Unavailable MARYJANE, ANGELITA Meade Attending Unavailable RICE, Nicole W Admitting Unavailable RICE, Nicole W Attending Unavailable Kuns DO, Lon R Primary Care Provider Unavailab LON Davis Referring Unavailab le KUNS, LON R Primary Care Unavailable BRYCE LARA Referring Unavailable KUNS, LON R Primary Care Unavailable Kelly Mcdowell Unavailable LEATHA Mcdowell Attending Provider Jean-Pierres, DO Lon Primary Care Provider Kuns, DO Lon Attending Provider [phone] Rosana Ibrahimtt Bc Primary Care Provider Kuns, DO Lon Primary Care Provider Kuns, DO Lon Attending Provider Ann Marie Mccord CNP Unavailable KUNS, LON BC Primary Care Unavailable WORTHAMS, JANINA Referring Unavailable KATHERYN, APURVA Referring Unavailable KUNS, LON BC Primary Care Unavailable KUNS, LON BC Primary Care Unavailable DENAFORESTI D Referring Unavailable KUNS, LON BC Primary Care Unavailable PELLEMARITAMOISES Attending Unavailable PELLE, MOISES Referring Unavailable KUNS, LON BC Referring Unavailable KUNS, LNO BC Primary Care Unavailable DENA, HEATHER D [...] Primary Care Unavailable WORTHAMS, JANINA Referring Unavailable KATHERYN, APURVA Attending Unavailable KATHERYN, APURVA Referring Unavailable KATHERYN, APURVA Admitting Unavailable LON IBRAHIM Primary Care Unavailable Lon Ibrahim DO Primary Care Provider [phone] Lon Ibrahim DO Attending Provider Lon Ibrahim Attending Unavailable Lon Ibrahim Admitting Unavailable Lon Ibrahim Admitting Unavailable Lon Ibrahim Primary Care Unavailable Lon Ibrahim Attending Unavailable Allergies Allergy ClassificationReported Allergen(s)Allergy TypeDate of OnsetReaction(s) FacilityAdhesive Tape (1 source)Adhesive TapeSubstance Leoohce13-46-8206vpfaoMercy Health Fairfield HospitalAmoxicillin / Clavulanate (1 source)Amoxicillin / ClavulanateDrug Opxdhdf00-34-8324LdnqtjtqFyrpietcc ClinicClavulanate (1 source)ClavulanateDrug Qnyolpf47-38-5252dfgngporCleveland ClinicOpioid Agonists (2 sources)oxyCODONEDrug Rgnxwvh62-24-5283TwbaxqmOadfqjwkd ClinicPenicillins (antibiotic) (1 source)AmoxicillinDrug Nibfjwz15-35-1024qelraeuwMetroHealth Main [facility] (7 sources)Adhesive Tape; Translations: [Tape]Drug allergyEruption (morphologic abnormality)[facility] (20 sources)Amoxicillin / ClavulanateDrug Allergydiarrhea, vomitingNorth Button Brew [facility] Other (20 sources)oxyCODONE; Translations: [OXYCODONE]Drug Lnkztch02-13-0484Zqxhbug [facility] (8 sources)Adhesive Tape; Translations: [adhesive tape]Propensity to adverse bgwnatopa36-99-7887dpuztMercy Health Fairfield Hospital (20 sources)Amoxicillin / Clavulanate; Translations: [AMOXICILLIN-POT CLAVULANATE]Drug Kehivbk20-12-0919PhlxbqhvXtcwpiyfe Clinic (20 sources)Adhesive Tape-Silicones; Translations: [ADHESIVE TAPE-SILICONES]Drug Hlupjpm29-73-7107PwarUekvhvthl Clinic (6 sources)Amoxicillin; Translations: [amoxicillin]Drug Zyilxei29-85-0306 diarrhea, vomitingSelect [facility] (6 sources)Clavulanate; Translations: [clavulanic acid]Drug Owoixxp19-15-9619 diarrhea, vomitingSelect [facility]ty [facility] (1 source)oxyCODONEDrug Yatadix69-28-5750UyxibtuolSelect Medical [facility]ty [facility] [place] Repository Medications Current Medications MedicationDrug Class(es)DatesSig (Normalized)Sig (Original)acetaminophen 500 mg oral capsule (20 sources)Start: 31-10-1676usrf 1 capsule by mouth every six hours as needed Start: 20-13-1277umkvrzkanwrpc Refills(s) 0 Start Date: 11/16/18 Status: Ordered Start: 47-48-1033unhl 2 tablets by mouth every six hours [...] Orally every 6 hrs ActiveCranberry Conc-Ascorbic Acid (8 sources)Non-Standardized Food Allergenic Extract, Non-Standardized Plant Allergenic Extract, Vitamin CStart: 20-75-5630grvo 1 tablet by mouth once daily Start: 00-53-4062hvqg 1 tablet by mouth once dailyCranberry Conc-Ascorbic Acid (Cranberry Plus Vitamin C) 140-100 mg Capsule Active 1 TAB PO Daily March 21, 2019 12:00amStart: 86-33-8344nyda 1 tablet by mouth once dailyCranberry Conc-Ascorbic Acid (Cranberry Plus Vitamin C) 140-100 mg Capsule Active 1 TAB PO Daily March 21, 2019 1:00amazithromycin 250 mg oral tablet (8 sources)Macrolide AntimicrobialStart: 26-47-5937Bfapjxala Z-Qasim 250 MG 2 tablet on the [...] Activebiotin 5 mg oral capsule (20 sources)Start: 65-17-0139owbg 1 capsule by mouth once dailyStart: 07-25-2020 biotin Oral, Bedtime, Refills(s) 0 Start Date: 07/25/20 Status: OrderedStart: 03-21-2019 End: 43-17-9196moer 1 capsule by mouth once dailyBiotin 1 mg Capsule Discontinued 1 CAP PO Daily March 21, 2019 12:00am April 22, 2023 10:00am supplementtake 1 capsule by mouth every twenty-four hoursBiotin 5000 MCG 1 capsule Orally Once a day Activetake 1 capsule by mouth once dailyBiotin 5000 MCG 1 capsule Orally Once a day ActiveBisacodyl (8 sources)Stimulant LaxativeStart: 49-16-4387xzsxlrera Refills(s) 0 Start Date: 11/16/18 Status: OrderedStart: 09-67-5437mpps 1 tablet by mouth once daily as needed for constipationbisacodyl (DULCOLAX) 5 MG EC tablet Take 1 tablet by mouth daily as needed for Constipation 5 tablet 0 08/31/2018 Activecalcium carbonate 750 mg chewable tablet (20 sources)Start: 32-18-2406qqoh 2 tablets by mouth twice dailyStart: 27-61-8438hcgenib carbonate Refills(s) 0 Start Date: 11/16/18 Status: [...] 500 mg oral capsule (6 sources)Cephalosporin AntibacterialStart: 53-31-1911nwsa 1 capsule by mouth every eight hoursCephalexin 500 MG 1 capsule Orally every 8 hrs for 7 Jan, ActiveStart: 46-99-8915ineh 1 capsule by mouth once dailyKeflex 250 mg Cap 250 mg = 1 cap(s), Oral, Daily, # 30 cap(s), Refills(s) 11, Pharmacy: [facility]/pharmacy #[id number], 187, cm, 07/09/21 13:05:00 EDT, Height/Length Dosing, 110, kg, 07/21/21 14:28:00 EDT, Weight Dosing Start Date: 09/11/21 Status: Ordered Start: 12-18-2616zdgw 1 capsule by mouth once dailyKeflex 250 mg Cap 250 mg = 1 cap(s), Oral, Daily, # 30 cap(s), Refills(s) 3, Pharmacy: [facility]/pharmacy#[id number], 187, cm, 03/20/21 9:31:00 EST, Height/Length Dosing, 110, kg, 03/20/21 9:31:00 EST, Weight Dosing Start Date: 04/29/21 Status: Orderedcholecalciferol 0.05 mg oral capsule (20 sources)Vitamin DStart: 78-52-0735kqai 1 capsule by mouth once dailyStart: 03-19-2020 End: 08-40-2356pxmf 1 tablet by mouth once dailyCholecalciferol (Vitamin D3) (Vitamin D3) 125 mcg (5,000 unit) Tablet Discontinued 125 MCG PO DailyFebruary 2020 12:00am April 22, 2023 10:01amStart: 72-37-3837sbyt 1 capsule by mouth every twenty-four hoursVitamin D (Cholecalciferol) 50 MCG (2000 UT) 1 capsule Orally Once a day 5000 IU OTC Nov, Activecholecalciferol (VITAMIN D3) 5,000 unit tab Vitamin D3 1000 IU daily ActiveComment on above: Vitamin D3 1000 IU dailyciprofloxacin 500 mg oral tablet (11 sources)Quinolone AntimicrobialStart: 03-08-4681qljp 1 tablet by mouth twice dailyStart: 06-04-2023 End: 79-00-1644ulxf 1 tablet by mouth twice dailyciprofloxacin HCl (CIPRO) 500 mg tablet Take 1 tablet by mouth two times a day for 3 days. 6 tablet0 06/04/2023 06/07/2023 ActiveStart: 05-04-2023 End: 38-62-4063bcfy 1 tablet by mouth twice dailyciprofloxacin HCl (CIPRO) 500 mg tablet Take 1 tablet by mouth two times a day for 10 days. 20 tablet 0 05/04/2023 05/14/2023 ActiveStart: 28-30-7916uvrt 1 tablet by mouth twice daily Cipro 500 mg Tab 500 mg = 1 tab(s), Oral, BID, # 14 tab(s), Refills(s) 0, Pharmacy: [facility]/pharmacy #[id number], 187, cm, 12/22/21 15:10:00 EST, Height/Length Dosing, 110, kg, 12/22/21 15:10:00 EST, Weight Dosing Start Date: 12/22/21 Status: OrderedStart: 79-27-8217tsnx 1 tablet by mouth once dailyCipro 500 mg Tab 500 mg = 1 tab(s), Oral, As Directed, Take 1 tablet day before procedure, then 1 tablet day of procedure after procedure., # 2 tab(s), Refills(s) 0, Pharmacy: [facility]/pharmacy #[id number], 187, cm, 07/09/21 13:05:00 EDT, Height/Length Dosing, 110, kg, 07/09/21... Start Date: 07/09/21 Status: OrderedComment on above: Take 1 tablet by mouth two times a day for 10 days.Compression stockings, 20- 30mmHg, calf 20-30mmHg (20 sources)Start: 74-36-5704Ofulhezfhhi stockings, 20-30mmHg, calf 20-30mmHg as directed externally daily as directed June, ActiveCranberry preparation (20 sources)Non-Standardized Food Allergenic Extract, Non-Standardized Plant Allergenic ExtractStart: 84-01-8490Oyaqdaapd Refill(s) 0 Start Date: 11/16/18 Status: Orderedtake [...] mouth daily LAST DOSE 08/16/2018 0 ActiveOmega 9-Ilg-Ism-Fish Oil (8 sources)Start: 40-04-2890Sewol: 47-24-5249lcpm 1000 mg by mouth once daily [place] 7-Phk-Qia-Fish Oil Active 1000 MG PO Daily March 21, 2019 12:00am Start: 90-21-7609cbbv 1000 mg by mouth once dailyOmega 9-Flg-Gai-Fish Oil Active 1000 MG PO Daily March 21, 2019 1:00amdocusate sodium 100 mg oral capsule (20 sources)Start: 23-86-7181izvl 1 capsule by mouth three times dailyStart: 26-96-8682naynnlme sodium Refills(s) 0 Start Date: 11/16/18 Status: OrderedStart: 93-81-3473rvli 1 capsule by mouth twice dailydocusate sodium (COLACE, DULCOLAX) 100 MG CAPS Take 100 mg by mouth 2 times daily 30 capsule 0 08/31/2018 Active Docusate Sodium 250 mg capsule Stool Softener Active ActiveComment on above: Stool Softener Ewsdtz65 hr guaiFENesin 600 mg extended release oral [...] medicated patch (2 sources)Antiarrhythmic, Amide Local AnestheticStart: 78-64-5795akkwe 1 dose transdermal route once dailylidocaine 4 % external patch Place 1 patch onto the skin daily 15 patch 0 09/01/2018 Activemagnesium hydroxide 80 mg/ml oral suspension (2 sources)Start: 91-25-5233kfby 30 mL by mouth once daily as needed for constipationmagnesium hydroxide (MILK OF MAGNESIA) 400 MG/5ML suspension Take 30 mLs by mouth daily as needed for Constipation 1 Bottle 0 08/31/2018 Active menthol 3 mg oral lozenge (2 sources)menthol-cetylpyridinium (CEPACOL) 3 MG lozenge Take 1 lozenge by mouth every 2 hours as needed for Sore Throat 0 Activemethocarbamol 750 mg oral tablet (6 sources)Muscle RelaxantStart: 28-95-2416wytgeeWUGKCGCvljxl 4 mg oral tablet (8 sources)CorticosteroidStart: 52-71-8889wwhudyLPTHHTSwdcnc 4 MG as directed Orally Feb, ActiveMulti Vitamin+ (6 sources)Start: 89-82-5604Qvyhn Vitamin+ Refill(s) 0 Start Date: 11/16/18 Status: [...] above:Take by mouth.Multivitamin Adult - (20 sources)Start: 58-81-7531sltu 1 tablet by mouth once dailyMultivitamin Adult - 1 tablet Orally QD 14 Oct, 2016 ActiveMultivitamin preparation (5 sources)Start: 27-75-3653ssei 1 tablet by mouth once dailyMultivitamin Active 1 TAB PO Daily March 21, 2019 12:00amStart: 16-92-4303dhct 1 tablet by mouth once dailyMultivitamin Active 1 TAB PO Daily March 21, 2019 1:00am Multivitamin Tablet (3 sources)Start: 36-85-2182fxsw 1 tablet by mouth once dailyOmega 3 1000 MG (20 sources)take 1 capsule by mouth once dailyOmega 3 1000 MG 1 capsule Orally Once a day for 90 days ActiveOmega-3 (6 sources)Start: 96-35-5918Zemgh-3 Refill(s) 0 Start Date: 11/16/18 Status: Orderedomega-3 acid ethyl esters ([facility]) 1000 mg oral capsule (2 sources)take 1 [...] as needed forPain. 0 Activepolyethylene glycol 3350 90948 mg powder for oral solution (2 sources)Osmotic Laxativetake 17 g by mouth once daily as neededpolyethylene glycol (GLYCOLAX) powder Take 17 g by mouth daily as needed 0 Activesennosides (SENOKOT ORAL) (20 sources)sennosides (SENOKOT ORAL) Take by mouth. Activesennosides (SENOKOT ORAL) Take by mouth. 0 ActiveComment on above:Take by mouth.sennosides, [facility] 8.6 mg oral tablet (2 sources)take 2 tablets by mouth once dailysenna (SENOKOT) 8.6 MG tablet Take 2 tablets by mouth nightly 0 Activesertraline 25 mg oral tablet (2 sources)Serotonin Reuptake InhibitorStart: 14-79-3550cauk 1 tablet by mouth once dailysertraline (ZOLOFT) 25 MG tablet Take 1 tablet by mouth daily 30 tablet 0 08/31/2018 Kscxdc2212 ml sodium chloride 9 mg/ml injection (1 [...] Softener ActiveTespo Womens Bariatric Complete Vitamin Formula (8 sources)Start: 72-47-8446aoem 1 capsule by mouth twice dailyStart: 03-21-2019 [...] iron- 1,000 mcg tab tablet (20 sources)Start: 01-85-0613fpkhuso b complex - vitamin C - ferrous fumarate - folic acid (NEPHRON FA) 66 mg iron- 1,000 mcg tab tablet B Complex 100 sacod, Refill(s) 0 Start Date: 11/16/18 Status: Ordered 11/16/2018 ActiveStart: 43-93-5493rgzquor b complex - vitamin C - ferrous fumarate - folic acid (NEPHRON FA) 66 mg iron- 1,000 mcg tab tablet B Complex 100 sacod, Refill(s) 0 Start Date: 11/16/18 Status: Ordered 0 11/16/2018 ActiveComment on above:B Complex 100 sacod, Refill(s) 0 Start Date: 11/16/18 Status: OrderedVitamin B Complex-Folic Acid (5 sources)Start: 22-05-8848smny 1 tablet by mouth once dailyVitamin B Complex- Folic Acid Active 1 TAB PO Daily March 21, 2019 12:00amStart: 03-21-2019 take 1 tablet by mouth once dailyVitamin B Complex-Folic Acid Active 1 TAB PO Daily March 21, 2019 1:00amVitamin B Complex-Folic Acid 400 mcg tablet extended release (3 sources)Start: 89-57-0324mjqo 1 tablet by mouth once dailyVitamin D (Cholecalciferol) 50 MCG (1999 UT) (20 sources)Start: 65-88-2691xxaa 1 capsule by mouth once dailyVitamin D (Cholecalciferol) 50 MCG (2000 UT) 1 capsule Orally Once a day 5000 IU OTC Nov, ActiveWalker misc (2 sources)Start: 95-20-2489Ocardn misc Active 0 .Route 1 0 December 13, 2024 12:00am Decreased activities of daily living (ADL) Impaired mobility Other specified health status Other reduced mobility As directed Completed/Discontinued Medications MedicationDrug Class(es)DatesSig (Normalized)Sig (Original)acetaminophen 325 mg / HYDROcodone bitartrate 5 mg oral tablet (20 sources)Opioid AgonistStart: 08-24-2019 End: 10-52-5718boro 1 tablet by mouth every four to six hours as needed for pain Hydrocodone-Acetaminophen ([place]) 5-325 mg tablet Discontinued 1 TAB PO EVERY 4- 6 HOURS as needed for pain 7 7 0 August 30, 2019 March 19, 2020 1:17pm Encounter for cosmetic surgery Encounter forcosmetic surgeryapixaban 5 mg oral tablet (20 sources)Factor Xa InhibitorStart: 09-13-2018 End: 95-07-6115jllh 1 tablet by mouth twice dailyApixaban (Eliquis) 5 mg tablet Discontinued 5 MG PO Twice daily August 16, 2019 11:00pm May 18, 2023 2:30pm Comment on above:Eliquis 5 mg tablet TAKE 1 TABLET BY MOUTH TWICE A DAYatorvastatin 40 mg oral tablet (8 sources)HMG-CoA Reductase InhibitorStart: 08-30-2019 End: 39-15-8362zyza 1 tablet by mouth once daily in the eveningAtorvastatin 40 mg Tablet Discontinued 40 MG PO Every evening 0 0 August 29, 2019 11:00pm March 19, 2020 1:17pm0.4 ml enoxaparin sodium 100 mg/ml prefilled syringe (8 sources)Low Molecular Weight HeparinStart: 08-27-2019 End: 35-30-5936tmcrmk 40 mg by subcutaneous injection once dailyEnoxaparin 40 mg/0.4 mL syringe Discontinued 40 MG SUBCUT Daily August 26, 2019 11:00pm August 30, 2019 10:20amgabapentin 300 mg oral capsule (20 sources)Anti-epileptic AgentStart: 06-23-2022 End: 85-56-9830hrsz 1 tablet by mouth once dailyGabapentin 600 mg tablet Discontinued 600 MG PO Daily 90 1 September 18, 2024 1:50pm December 13, 2024 2:18pmStart: 03-21-2019 End: 40-33-4256alvu 2 capsules by mouth twice dailyGabapentin 100 mg capsule Discontinued 200 MG PO Twice daily March 21, 2019 12:00am September 23, 2020 8:16am nerve painStart: 03-21-2019 End: 56-87-9211exnr 200 mg by mouth twice dailyGabapentin Discontinued 200 MG PO Twice daily March 21, 2019 1:00am September 23, 2020 9:16amStart: 11-16-2018 End: 74-80-9774xnwn 1 capsule by mouth twice daily in the morningGabapentin 300 mg capsule Discontinued 300 MG PO Twice daily 180 90 1 April 22, 2023 1:54pm October 01, 2023 1:15pm FreeTextSi capsule orally in the morning and in the afternoon Provider: Kristy RStart: 04-19-2018 End: 24-63-6460jcxy 1 capsule by mouth once daily at bedtimeGabapentin 400 mg capsule Discontinued 400 MG PO Daily at bedtime March 21, 2019 12:00am March 29, 2023 10:56am nerve painComment on above:Take 600 mg by mouth daily at bedtime.TAKE 1 CAPSULE BY MOUTH IN THE MORNING AND IN THE AFTERNOONiv contrast (will be provided with radiology test) (2 sources)Start: 04-19-2023 End: 37-93-4870tz contrast (will be provided with radiology test) [...] Each 0 04/19/2023 04/20/2023 ExpiredStart: 04-19-2023 End: 52-88-0129rl contrast (will be provided with radiology test) [...] Ketorolac (20 sources)Nonsteroidal Anti-inflammatory Drug, Cyclooxygenase InhibitorStart: 27-18-2253Kcaouja per 15 mg May, 2 ccStart: 13-14-0507Fuwlvoa per 15 mg Apr, 2 ccStart: 91-85-5364Yfcdnnp per 15 mg Nov, 2 ccStart: 13-11-9069Arehfjh per 15 mg Oct, 2 ccStart: 22-46-5925Tffhkjq per 15 mg Oct, 2 mLmetoprolol tartrate 25 mg oral tablet (20 sources)beta-Adrenergic BlockerStart: 08-03-2023 End: 97-69-1681Hbcijemyvw Tartrate 25 mg tablet Discontinued 12.5 MG PO Twice daily 180 1 October 01, 2023 1:14pmAugust 2024 1:50pmStart: 04-22-2023 End: 59-08-9907wawg 0.5 tablet by mouth twice daily at mealtimeMetoprolol Tartrate 25 mg tablet Discontinued 0.5 TAB PO Twice daily April 21, 2023 11:00pm August 03, 2023 7:00am FreeTextSi/2 tablet with food Orally Twice a day; Note: Source Status: Taking;Refills: 3; Provider: Evelia Liang RStart: 37-19-9459xgyp 1 mg by mouth once dailymetoprolol 25 mg ER Tab mg tab(s), Oral, Daily, Refills(s) 0 Start Date: 04/09/20 Status: OrderedStart: 03-19-2020 End: 67-36-1718yjov 1 tablet by mouth twice dailymetoprolol tartrate, short acting, (LOPRESSOR) 25 mg tablet metoprolol tartrate 25 mg tablet TAKE 1/2 TABLET BY MOUTH TWICE DAILY 03/19/2020 ActiveStart: 03-19-2020 End: 19-80-3261Udcyoraljr Tartrate 25 mg tablet Discontinued 12.5 MG PO Twice daily March 19, 2020 12:00am April 22, 2023 9:58amStart: 03-19-2020 End: 76-93-5866hjgh 12.5 mg by mouth twice dailyMetoprolol Tartrate [...] / nitrofurantoin, monohydrate 75 mg oral capsule (8 sources)Nitrofuran AntibacterialStart: 06-17-2020 End: 74-62-2494jvvq 1 capsule by mouth twice dailyNitrofurantoin Monohyd/M-Cryst 100 mg capsule Discontinued 100 MG PO Twice daily June 16, 2020 11:00pm September 23, 2020 8:17amsolifenacin succinate 5 mg oral tablet (20 sources)Cholinergic Muscarinic AntagonistStart: 04-22-2023 End: 58-32-6810frhf 2 tablets by mouth in the morning, then take 1 tablet by mouth twice daily in the eveningSolifenacin 5 mg tablet Discontinued MG PO April 21, 2023 11:00pm August 03, 2023 6:59am FreeTextSi tablets in the AM, 1 tablet in the PM Orally twice a day as directed; Note: Source Status: Taking; Provider: Evelia Liang ( )Start: 06-25-2022 End: 93-03-7363zbgk 1 tablet by mouth in the eveningsolifenacin (VESICARE) 5 mg tablet Take 15 mg by mouth as directed. TAKE 2 TABLETS BY MOUTH IN THE MORNING, AND 1 TABLET IN THE EVENING 06/25/2022 ActiveStart: 21-06-7083dlyg 1 tablet by mouth twice dailyVesicare 5 mg Tab 5 mg = 1 tab(s), Oral, BID, # 60 tab(s), Refills(s) 5, Pharmacy: [id number], 187, cm, 12/30/21 9:14:00 [...] mg / trimethoprim 160 mg oral tablet (16 sources)Dihydrofolate Reductase Inhibitor Antibacterial, Sulfonamide AntimicrobialStart: 05-31-2020 End: 68-28-9927uyjp 1 tablet by mouth twice dailySulfamethoxazole-Trimethoprim (Sulfamethoprim Ds) 800-160 mg Tablet Discontinued 1 TAB PO Twice daily May 30, 2020 11:00pm June 17, 2020 7:08amStart: 03-21-2019 End: 96-22-1213fulh 2 tablets by mouth twice dailySulfamethoxazole-Trimethoprim 400-80 mg tablet Discontinued 2 TAB PO Twice daily March 21, 2019 12:00am August 24, 2019 5:19am utiVitamin D 1000 intl units Tab (6 sources)Start: 91-60-4396amrp 1 tablet by mouth once dailyVitamin D [...] myocardial infarction; Translations: [Non-ST elevation (NSTEMI) myocardial infarction]59-26-9331VojciurBywcozw on above:Problem List clean-up per request of Phys. EHR CmteAdministrative/social admission (14 sources)Dietary counseling and surveillance; Translations: [Reduced mobility]Onset: 10-14-2021 Resolved: 55-18-6943IdtsbtqeWwapfus disorders (20 sources)Mixed anxiety and depressive disorder; Translations: [Anxiety disorder]49-76-5485GxoybshMhysxabbp infection; unspecified site (20 sources)Actinomycotic infection; Translations: [Actinomycosis, unspecified] 82-93-8908BxwblgdkDouyrvq on above:Problem List clean-up per request of Phys. EHR CmteBiliary tract disease (20 sources)Cholecystitis; Translations: [Cholecystitis, unspecified]Episodic Cardiac dysrhythmias (20 sources)Supraventricular tachycardia; Translations: [Supraventricular tachycardia]Onset: 07-01-2021 Resolved: 33-79-2044UdzmvpjDrboeyl dysrhythmias (6 sources)Escnhyjqrro06-49-8886SkjnegwsOollmwa ulcer of skin (20 sources)Pressure ulcer of unspecified site, unspecified stage; Translations: [Non-pressure chronic ulcer ofother part of left foot with unspecified severity] 88-32-2577HgwvwzwHmvzrwlaeo associated with dizziness or vertigo (8 sources)Dizziness; Translations: [Dizziness and giddiness]18-95-4633Dlvaapjl Comment on above:Problem List clean-up per request of Phys. EHR CmteCongestive heart failure; nonhypertensive (20 sources)Diastolic heart failure; Translations: [Unspecified diastolic (congestive) heart failure]77-95-4608EjbiookEzomunm on above:Problem List clean- up per request of Phys. EHR CmteDeficiency and other anemia (8 sources)Anemia; Translations: [Anemia, unspecified]20-16-5038NgezxrkxHixprjo on above:Problem List clean-up per request of Phys. EHR CmteDiabetes mellitus without complication (9 sources)Type 2 diabetes mellitus; Translations: [Type 2 diabetes mellitus without complications]Onset: 417578-45-4403AarsyufSfjvcdvk mellitus without complication (20 sources)Hyperglycemia, unspecified; Translations: [Hyperglycemia]Onset: 10-10-2021 Resolved: 21-45-2098GfjlpixpYbhgxmsxr of lipid metabolism (20 sources)Hypertriglyceridemia; Translations: [Hyperlipidemia]Onset: 08-05-2016 Resolved: 641327-61-3824YxdbsufZulsphqlweozjf and diverticulitis (8 sources)Diverticular disease; Translations: [Diverticulum of duodenum]Onset: 898095-66-2401BuhxbwgRkyorpiqrugwtt and diverticulitis (2 sources)Diverticulum of duodenum; Translations: [Duodenal diverticulum]Onset: E Codes: Fall (2 sources)Unspecified fall, subsequent encounter; Translations: [Unspecified fall, initial encounter]EpisodicEsophageal disorders (20 sources)Gastroesophageal reflux disease without esophagitis; Translations: [Gastroesophageal reflux disease] Resolved: 073005-01-5317HieqxhvUpycbpqelw disorders (4 sources)Esophageal mass; Translations: [Esophageal mass]09-01-7651Istpyscq Essential hypertension (8 sources)Hypertensive disorder; Translations: [Essential (primary) hypertension]90-30-7423PpzktpqOmesxhw on above:Problem List clean-up per request of Phys. EHR CmteGastroduodenal ulcer (except hemorrhage) (20 sources)Gastric ulcer; Translations: [Gastric ulcer, unspecified as acute or chronic, without hemorrhage orperforation]ChronicGenitourinary congenital anomalies (20 sources)Cyst of kidney; Translations: [Congenital renal cyst, unspecified] ChronicGenitourinary symptoms and ill-defined conditions (20 sources)Urge incontinence; Translations: [Genuine stress incontinence]Onset: 93-27-4226TbuedkpBqwgrlrqmhcuo symptoms and ill-defined conditions (20 sources)Microscopic hematuria; Translations: [Other microscopic hematuria] Onset: 23-22-5038NesmnhrdRtzmqyd on above:Problem List clean-up per request of Phys. 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 EHR CmteMalaise and fatigue (8 sources)Decline in functional status; Translations: [Other malaise]03-29-2019 EpisodicComment on above:Problem List clean-up per request of Phys. EHR CmteMood disorders (20 sources)Depressive disorder; Translations: [Major depressive disorder, single episode, unspecified]02-54-8301FpkehtyQmkw disorders (20 sources)Mood swings; Translations: [Emotional lability]EpisodicNutritional deficiencies (20 sources)Vitamin D deficiency; Translations: [Vitamin D deficiency, unspecified]Onset: 10-10-2021 Resolved: 04-58-3411HtxhgpoOronxwvoohmkhb (6 sources)Osteoarthritis; Translations: [Unspecified osteoarthritis, unspecified site]31-47-8319CrpitboWljwx aftercare (2 sources)Long-term current use of anticoagulant; Translations: [FPC (current) use of anticoagulants]Onset: 73-37-7813CegehtzlEqgke connective tissue disease (3 sources)Arthrodesis status; Translations: [S/P cervical spinal fusion]Onset: 67-83-8551EvjuofqiDmdpi connective tissue disease (3 sources)Other symptoms and [...] left footEpisodicOther diseases of bladder and urethra (14 sources)Detrusor and sphincter dyssynergia; Translations: [Muscular disorders of urethra]81-36-4568XncxygaBedpcvc on above:Problem List clean-up per request of Phys. EHR CmteOther diseases of bladder and urethra (16 sources)Mass of urinary bladder; Translations: [Other specified disorders of bladder]21-24-4375MgxtigoIedapqb on above:Problem List clean-up per request of Phys. EHR CmteOther diseases of bladder and urethra (20 sources)Neurogenic bladder; Translations: [Neuromuscular dysfunction of bladder, unspecified]50-72-3204UwhzgagGzdmr diseases of bladder and urethra (3 sources)Neuromuscular dysfunction of bladder, unspecifiedChronicOther diseases of bladder and urethra (1 source)Hypertrophy of bladder; Translations: [Other specified disorders of bladder]74-58-5992SoebtdvItadd diseases of bladder and urethra (1 source)Other specified disorders of bladder; Translations: [Bladder mass] Onset: 60-22-1854IrxnmbyDmqgh diseases of kidney and ureters (13 sources)Hydronephrosis; Translations: [Other hydronephrosis]04-12-2019 EpisodicOther diseases of kidney and ureters (1 source)Bilateral hydronephrosis ; Translations: [Unspecified hydronephrosis] 25-78-9916IgqwjfcxEnuto diseases of kidney and ureters (6 sources)Cyst of kidney; Translations: [Cyst of kidney, acquired]05-20-2023 EpisodicOther diseases of veins and lymphatics (10 sources)Lymphedema; Translations: [Lymphedema, not elsewhere classified] Onset: 548829-78-6657OujfmhiMvloh diseases of veins and lymphatics (20 sources)Disorder of vein; Translations: [Venous insufficiency (chronic) (peripheral)]EpisodicOther diseases of veins and lymphatics (6 sources)Vascular insufficiency; Translations: [Venous insufficiency (chronic) (peripheral)]55-31-6456ZvjdhkygUydmk ear and sense organ disorders (10 sources)Bilateral tinnitus; Translations: [Tinnitus, bilateral]EpisodicOther gastrointestinal disorders (20 sources)Constipation; Translations: [Constipation, unspecified]EpisodicOther gastrointestinal disorders (20 sources)History of bariatric surgical procedure; Translations: [Bariatric surgery status]62-89-6194VsfgwjjaCbkuw gastrointestinal disorders (4 sources)Bariatric surgery statusOnset: 10-14-2021 Resolved: 62-35-8040KhcdsnijNxxna gastrointestinal disorders (8 sources)History of bypass of stomach; Translations: [Bariatric surgery status]17-68-6036RugybmvoHrkrb hematologic conditions (1 source)High troponin I level; Translations: [Other specified abnormalities of plasma proteins]10-71-3603SmkoxcxnArwsr hematologic conditions (1 source)Raised cardiac enzyme or marker; Translations: [Other specified abnormalities of plasma proteins]73-91-9494OzdtgkwhAyaja liver diseases (4 sources)Steatosis of liver; Translations: [Fatty (change of) liver, not elsewhere classified]64-40-7668QuflnwaQlqam nervous system disorders (17 sources)Cervical myelopathy; Translations: [Disease of spinal cord, unspecified]ChronicOther nervous system disorders (4 sources)Disease of spinal cord, unspecified; Translations: [Cervical spondylosis with myelopathy]Onset: 318794-12-3470MqcioadSqlhm nervous system disorders (20 sources)Paresthesia; Translations: [Paresthesia of skin]EpisodicOther nervous system disorders (6 sources)Paresthesia of right lower limb; Translations: [Paresthesia of skin] 81-29-4746YyldjvcuEghwz nervous system disorders (9 sources)Reduced mobility; Translations: [Other abnormalities of gait and mobility]47-17-2429WavecnztEfdjg nervous system disorders (5 sources)Tremor; Translations: [Tremor, unspecified]18-62-5711GnigzgndTajrr nervous system disorders (2 sources)Tremor, unspecified; Translations: [Abnormal involuntary movements] 29-78-4188NpgukpmiFzhxt non-traumatic joint disorders (20 sources)Arthralgia of the pelvic region and thigh; Translations: [Pain in left hip]EpisodicOther nutritional; endocrine; and metabolic disorders (4 sources)Body mass index 30+ - obesity; Translations: [Obesity, unspecified] Onset: 613228-63-7279AkfifquXdjwq nutritional; endocrine; and metabolic disorders (20 sources)Morbid obesity; Translations: [Morbid (severe) obesity due to excess calories]Onset: 08-05-2016 Resolved: 654813-42-3049PqmrbqyRchzvdy on above:Problem List clean-up per request of Phys. EHR CmteOther nutritional; endocrine; and metabolic disorders (14 sources)Obesity; Translations: [Obesity, unspecified]46-53-6042VakbzdgDerxt nutritional; endocrine; and metabolic disorders (20 sources)Body mass index 40+ - severely obese; Translations: [Body mass index (BMI) 45.0-49.9, adult]Onset: 08-05-2016 Resolved: 978875-00-9206PsljqbkRdnat nutritional; endocrine; and metabolic disorders (1 source)Body mass index (BMI) 45.0-49.9, adultChronicOther nutritional; endocrine; and metabolic disorders (1 source)Morbid (severe) obesity due to excess caloriesChronicOther nutritional; endocrine; and metabolic disorders (12 sources)Obesity caused by energy imbalance; Translations: [Morbid (severe) obesity due to excess calories]Onset: 657560-39-0620SyjvxcuItitl nutritional; endocrine; and metabolic disorders (3 sources)Obesity, unspecified; Translations: [Obesity, unspecified]08-03-2023 ChronicOther screening for suspected conditions (not mental disorders or infectious disease) (4 sources)Imaging result abnormal; Translations: [Abnormal findings on diagnostic imaging of other specified body structures]Onset: 03-30-2023 76-74-7738MawmrjdMmuxq screening for suspected conditions (not mental disorders or infectious disease) (20 sources)Culture positive for methicillin resistant Staphylococcus aureus; Translations: [Mammography abnormal]Onset: 103364-25-3998LgvixvaeIzprsgd on above:MRSA urine 03/07/2019MRSA urine 03/07/2019Problem List clean-up per request of Phys. EHR CmteOther skin disorders (20 sources)Epidermoid cyst of skin; Translations: [Sebaceous cyst]EpisodicOther skin disorders (6 sources)Broken skin; Translations: [Other skin changes]90-07-0645Ybevocqm Paralysis (4 sources)Paraplegia, unspecified; Translations: [PARAPLEGIA UNSPECIFIED]Onset: 77-69-7390XwcqzzwWoft-; endo-; and myocarditis; cardiomyopathy (except that caused by tuberculosis or sexually transmitted disease) (4 sources)Pericardial effusion; Translations: [Pericardial effusion]09-04-2018 EpisodicPulmonary heart disease (20 sources)Pulmonary embolism; Translations: [H/O: pulmonary embolus]Onset: 09-03-2018 Resolved: 802416-45-8313LazqgjqaLtlvpgm on above:Problem List clean-up per request of Phys. EHR CmteResidual codes; unclassified (10 sources)Obstructive sleep apnea syndrome; Translations: [Obstructive sleep apnea (adult) (pediatric)]Onset: 331311-53-0616QobcsleSrgehdul codes; unclassified (6 sources)Sleep aulhx35-51-3770HygvzrcIbjupwmd codes; unclassified (20 sources)Obstructive sleep apnea of adult; Translations: [Obstructive sleep apnea (adult) (pediatric)]ChronicResidual codes; unclassified (20 sources)Edema; Translations: [Edema, unspecified]EpisodicResidual codes; unclassified (20 sources)History of excision of intestinal structure; Translations: [Acquired absence of other specified parts of digestive tract]EpisodicResidual codes; unclassified (8 sources)Postoperative state; Translations: [Other specified postprocedural states]75-88-9326HziwgujjDxaqgfw on above:Problem List clean-up per request of Phys. EHR CmteResidual codes; unclassified (16 sources)Postprocedural state finding; Translations: [Other specified postprocedural states]60-34-5999CsynhkkgOczddoen codes; unclassified (1 source)Asymptomatic menopausal stateEpisodicResidual codes; unclassified (6 sources)Activity of daily living (ADL) alteration; Translations: [Other specified health status]31-03-6293FcnfzfkrCdftsptk codes; unclassified (3 sources)Other specified health status; Translations: [Other specified conditions influencing health status]05-42-3298RrxhcbrxDmzmmaegpqv; intervertebral disc disorders; other back problems (11 sources)Degeneration of lumbar intervertebral disc; Translations: [Other intervertebral disc degeneration, lumbar region]ChronicSpondylosis; intervertebral disc disorders; other back problems (20 sources)Lumbosacral radiculopathy; Translations: [Spinal stenosis in cervical region]Onset: 181860-50-1688EjvaysdyGtpdiin on above:Problem List clean-up per request of Phys. EHR CmteThyroid disorders (20 sources)Thyroid nodule; Translations: [Nontoxic single thyroid nodule] ChronicUnclassified (1 source)History of cervical spine fusion; Translations: [S/P cervical spinal fusion]Unclassified (6 sources)Drug therapy hlavoux43-10-1337Ikxxshkhmepl (4 sources)Asymptomatic microscopic jwkubxzyn29-58-3797Oxfbndr tract infections (20 sources)Urinary tract infectious disease; Translations: [Urinary tract infection, site not specified]Onset: 76-30-7937PomjraudRbvwrmi on above:Problem List clean-up per request of Phys. EHR Cmte Past or Other Problems Problem ClassificationProblemDateDocumented DateEpisodic/ChronicNeoplasms of unspecified nature or uncertain behavior (10 sources)Neoplasm of bladder; Translations: [Neoplasm of unspecified behavior of bladder]Onset: 716606-55-4023IthrtzxiCehpq connective tissue disease (3 sources)Neuralgia and neuritis, unspecifiedOnset: 02-24-2021 Resolved: 46-17-1615XxciagviVrgjl diseases of kidney and ureters (2 sources)Unspecified hydronephrosis; Translations: [Bilateral hydronephrosis] Onset: 61-44-8662OlhezqylHpihv diseases of kidney and ureters (1 source)Other hydronephrosis; Translations: [Other hydronephrosis]Onset: 10-03-5530TtrcknecLmyfh gastrointestinal disorders (2 sources)History of sleeve gastrectomy; Translations: [Bariatric surgery status]Onset: 324072-71-5994NvafmagnHvugl nervous system disorders (4 sources)Numbness of foot ; Translations: [Anesthesia of skin]Onset: 335580-44-5607PhkaxsarWbrnlzwl codes; unclassified (4 sources)History of surgical procedure on cervical spine; Translations: [Other specified postprocedural states]Onset: 845243-65-4081VofcostvXgdfeuiv codes; unclassified (2 sources)H/O: surgery; Translations: [Status post laparoscopic sleeve gastrectomy]Onset: 544000-77-3511Sirppkcn Results Test NameValueInterpretationReference RangeFacilityLaboratory - Chemistry and Chemistry - challengeOrdered By: Lon Ibrahim on 39-46-3841Asrupwnhl Ql (U) NegativeNEGATIVESelect Medical Specialty Hospital - CincinnatiGlucose (U) [Mass/Vol]Negative NEGATIVESelect Medical Specialty Hospital - CincinnatiKetones Ql (U)NegativeNEGATIVESelect Medical Specialty Hospital - CincinnatipH (U)6.0 [pH]5.0-9.0[facility] Specific gravity (U) [Rel density]1.0251.005-1.025[facility] CincinnatiUrobilinogen Qn (U)0.2 {Marcela'U}/dL0.2-1.0[facility] CincinnatiLaboratory - Specimen informationOrdered By: Lon Ibrahim on 12-14-2024 Appearance (U)TURBIDAbnormalCLEARFOur Lady of Mercy HospitalColor (U)DK. YELLOWYELLOWSelect Medical Specialty Hospital - CincinnatiLaboratory - UrinalysisOrdered By: Lon Ibrahim on 84-72-7480Maklztjhm esterase Test strip Ql (U)LARGEAbnormal NEGATIVESelect Medical Specialty Hospital - CincinnatiNitrite Ql (U)PositiveAbnormalNEGATIVE [facility] CincinnatiProtein Ql (U)100 mg/dLAbnormalNEG/TRACE [facility] CincinnatiNo Panel InformationOrdered By: Lon Ibrahim on 18-17-2916Yfptk Occult BloodLARGEAbnormalNEGATIVESelect Medical Specialty Hospital - CincinnatiUrine Cultureon 65-05-9399Nwaksmlj identified Cx Nom (U)ORGANISM: Escherichia coli (O:ESCCOL) [place] Count >100,000 Aerobic JAVIER Charge (NMIC56) SUSCEPTIBILITY ORGANISM: O:ESCCOL ANTIBIOTIC INTERPRETATION JAVIER Amikacin S <16 Amoxacillin/K Clavulanate S <8 Ampicillin S <8 Ampicillin/Sulbactam S <4 Aztreonam S <4 Cefazolin S <2 Cefepime S <2 Ceftazidime S <1 Ceftazidime/Avibactam S <4 Ceftolozane/Tazobactam S <2 Ceftriaxone S <1 Cefuroxime S <4 Ciprofloxacin R >2 Ertapenem S <0.5 Gentamicin S <2 Levofloxacin R 4 Meropenem S <1 Meropenem/Vaborbactam S <2 Nitrofurantoin S <32 Piperacillin/Tazobactam S <8 Tetracycline S <4 Tigecycline S <2 Tobramycin S <2 Trimethoprim/Sulfamethoxazole S S = SUSCEPTIBLE I = INTERMEDIATE R [...] RESISTANT TO ALL B-LACTAM DRUGS. PERFORMED BY: [place] [address] PATHOLOGIST CELL MAKER FANY MACK M.D.[facility] Physician GroupComment on above: Performed By: #### CUU #### [place] [address] USAA1C with Estimated Average Gluon 04-58-4693Chodpis [Mass/Vol]108 mg/dLNoFirstHealth Physician GroupComment on above:Result Comment: PERFORMED BY: [place] [address] PATHOLOGIST CELL MAKER FANY MACK M.D.Performed By: #### CMP, A1C WTH eA, LIPID, CBC, TSH3 #### [place] [id number] USAAlanine aminotransferase [Enzymatic activity/volume] in Serum or PlasmaOrdered By: Lon Ibrahim on 53-96-3743RKL [Catalytic activity/Vol] 18 U/LNormal7-52[facility] - CincinnatiComment on above:Performed By: #### CMP, A1C WTH eA, LIPID, CBC, TSH3 #### [place] [id number] USAAlbumin [Mass/volume] in Serum or Plasma by Bromocresol green (BCG) dye binding methoOrdered By: Lon Ibrahim on 53-07-3733Zecyhvc BCG dye [Mass/Vol]3.8 g/dL3.5-5.7FOur Lady of Mercy HospitalAlkaline phosphatase [Enzymatic activity/volume] in Serum or PlasmaOrdered By: Lon Ibrahim on 55-36-9236EPX [Catalytic activity/Vol]55 U/VSxbejm24-924WoclgofjwSelect Medical Specialty Hospital - CincinnatiComment on above:Performed By: #### CMP, A1C WTH eA, LIPID, CBC, TSH3 #### [facility] [address] [place] [address] USAAspartate aminotransferase [Enzymatic activity/volume] in Serum or PlasmaOrdered By: Lon Ibrahim on 09-83-2689BXY [Catalytic activity/Vol] 18 U/KEwsgzd59-08VoudqhqzlSelect Medical Specialty Hospital - CincinnatiComment on above:Performed By: #### CMP, A1C WTH eA, LIPID, CBC, TSH3 #### [facility] [address] [place] [address] USABasophils [#/volume] in Blood by Automated countOrdered By: Lon Ibrahim on 48-56-0042Bsjobpvlc (Bld) [#/Vol]0.1 10*3/uLNormal0.0-0.2 [facility] - CincinnatiComment on above:Result Comment: PERFORMED BY: [place] [address] PATHOLOGIST CELL MAKER FANY MACK M.D.Performed By: #### CMP, A1C WTH eA, LIPID, CBC, TSH3 #### [place] [address] USABasophils/100 leukocytes in Blood by Automated count Ordered By: Lon Ibrahim on 10-71-0016Bszhivpkf/100 WBC (Bld)0.6 %Normal.[facility] - CincinnatiComment on above:Performed By: #### CMP, A1C WTH eA, LIPID, CBC, TSH3 #### [facility] [address] [place] [address] USABilirubin.total [Mass/volume] in Serum or PlasmaOrdered By: Lon Ibrahim on 36-84-7330Jnuvkjisw [Mass/Vol]0.3 mg/dLNormal0.3-1.0[facility] - CincinnatiComment on above:Performed By: #### CMP, A1C WTH eA, LIPID, CBC, TSH3 #### [facility] [address] [place] [id number] USABlood estimated average glucose determination by estimation from glycated hemoglobinOrdered By: Lon Ibrahim on 82-27-3759Ljpdahu glucose Estimated from glycated hemoglobin (Bld) [Mass/Vol]108 mg/dLSelect Medical Specialty Hospital - CincinnatiCalcium [Mass/volume] in Serum or PlasmaOrdered By: Lon Ibrahim on 50-32-6728Ddljvsc [Mass/Vol]9.4 mg/dLNormal8.6-10.3FOur Lady of Mercy HospitalComment on above:Performed By: #### CMP, A1C WTH eA, LIPID, CBC, TSH3 #### [facility] [address] [place] [id number] USACarbon dioxide, total [Moles/volume] in Serum or Plasma Ordered By: Lon Ibrahim on 74-29-9454CC1 [Moles/Vol]24.6 mmol/UZnohlk03.0-31.0 [facility] - CincinnatiComment on above:Performed By: #### CMP, A1C WTH eA, LIPID, CBC, TSH3 #### [facility] [address] [place] [id number] USAChloride [Moles/volume] in Serum or PlasmaOrdered By: Lon Ibrahim on 08-36-7882Ciqydujf [Moles/Vol]109 mmol/ZPakb53-366NiioyfgebSelect Medical Specialty Hospital - CincinnatiComment on above:Performed By: #### CMP, A1C WTH eA, LIPID, CBC, TSH3 #### [facility] [address] [place] [id number] USACholesterol [Mass/volume] in Serum or PlasmaOrdered By: Lon Ibrahim on 77-08-3563Kwzszggokjm [Mass/Vol]170 mg/uMXunllz218-490BzhphpwteSelect Medical Specialty Hospital - CincinnatiComment on above:Chol less than 200 mg/dl low riskChol 201-239 mg/dl borderline riskChol 240 mg/dl and greater high riskResult Comment: Chol less than 200 mg/dl low risk Chol 201-239 mg/dl borderline risk Chol 240 mg/dl and greater high riskPerformed By: #### CMP, A1C WTH eA, LIPID, CBC, TSH3 #### [facility] [address] [place] [address] USACholesterol in HDL [Mass/volume] in Serum or PlasmaOrdered By: Lon Ibrahim on 52-37-7227Chmmnkccwai in HDL [Mass/Vol]49 mg/lOOxsvci75-98 [facility] - CincinnatiComment on above:HDL CHOL ATP-III CLASSIFICATION Cardiovascular RiskHDL > or equal to 60 mg/dL LOWHDL < 40 mg/dL HIGHResult Comment: HDL CHOL ATP-III CLASSIFICATION Cardiovascular Risk HDL > or equal to 60 mg/dL LOW HDL < 40 mg/dL HIGHPerformed By: #### CMP, A1C WTH eA, LIPID, CBC, TSH3 #### [facility] [address] [place] [address] USACholesterol in LDL Calc [Mass/Vol]Ordered By: Lon Ibrahim on 10-68-7457Cihzjeymopu in LDL [Mass/Vol]73 mg/dL0-100[facility] - CincinnatiComment on above:LDL ATP III CLASSIFICATIONLDL less than 100 mg/dL OptimalLDL 100-129 mg/dL Near or above rjgvpvoSCA958-124 mg/dL Borderline highLDL 160-189 mg/dL HighLDL greater than 189 mg/dL Very highCholesterol in VLDL Calc [Mass/Vol]Ordered By: Lon Ibrahim on 51-89-5804Vgkhuehjbqk in VLDL [Mass/Vol]48 mg/dLSelect Medical Specialty Hospital - CincinnatiComplete Blood Count Auto Diffon 01-67-2590Zsow Corpuscular HGB Conc32.6 g/jJOmscqs88.0-35.0[facility] Physician GroupComment on above:Performed By: #### CMP, A1C WTH eA, LIPID, CBC, TSH3 #### [facility] [address] [place] [address] USANRBC%0.1 /100{WBC}Normal0-0.5[facility] Comment on above:Performed By: #### CMP, A1C WTH eA, LIPID, CBC, TSH3 #### [facility] [address] [place] [address] USAWhite Blood Count8.7 [CFU]/mLNormal3.8-11.6[facility] Physician GroupComment on above:Performed By: #### CMP, A1C WTH eA, LIPID, CBC, TSH3 #### [facility] [address] [place] [address] USAComprehensive Metabolic Panelon 72-49-9031Cjquojh [Mass/Vol]3.8 g/dLNormal3.5-5.7[facility] Physician GroupComment on above: Performed By: #### CMP, A1C WTH eA, LIPID, CBC, TSH3 #### [place] [address] USAGFR/1.73 sq M.predicted MDRD (S/P/Bld) [Vol rate/Area] 59.995 mL/min/{1.73_m2}NormalThe [facility] Physician [facility] River GulfportComment on above: Performed By: #### CMP, A1C WTH eA, LIPID, CBC, TSH3 #### [place] [address] USACreatinine [Mass/volume] in Serum or PlasmaOrdered By: Lon Ibrahim on 53-92-2139Denzmonuko [Mass/Vol]1.09 mg/dLNormal0.60-1.20[facility] - CincinnatiComment on above:Performed By: #### CMP, A1C WTH eA, LIPID, CBC, TSH3 #### [place] [address] USAEosinophils [#/volume] in Blood by Automated countOrdered By: Lon Ibrahim on 13-43-7453Bztlolscvsz (Bld) [#/Vol]0.2 10*3/uLNormal0.0-0.45 [facility] - CincinnatiComment on above:Performed By: #### CMP, A1C WTH eA, LIPID, CBC, TSH3 #### [place] [address] USAEosinophils/100 leukocytes in Blood by Automated count Ordered By: Lon Ibrahim on 06-38-0496Cgepkjublds/100 WBC (Bld)2.1 %Normal. [facility] - CincinnatiComment on above:Performed By: #### CMP, A1C WTH eA, LIPID, CBC, TSH3 #### [facility] [address] [place] [address] USAErythrocyte distribution width [Ratio] by Automated count Ordered By: Lon Ibrahim on 44-04-9876Ofpxayuzfvy distribution width (RBC) [Ratio] 14.3 %Abnrmf54.9-15.3FOur Lady of Mercy HospitalComment on above:Performed By: #### CMP, A1C WTH eA, LIPID, CBC, TSH3 #### [facility] [address] [place] [id number] USAErythrocytes [#/volume] in Blood by Automated countOrdered By: Lon Ibrahim on 60-84-8790DGT (Bld) [#/Vol]4.65 10*6/uLNormal3.60-5.00 [facility] - CincinnatiComment on above:Performed By: #### CMP, A1C WTH eA, LIPID, CBC, TSH3 #### [facility] [address] [place] [address] USAGlomerular filtration rate [Volume Rate/Area] in Serum, Plasma or Blood by CreatinineOrdered By: Lon Ibrahim on 39-96-9326Xklpgqidef filtration rate [Volume Rate/Area] in Serum, Plasma or Blood by Jhfygiionx59.995 mL/MinSelect Medical Specialty Hospital - CincinnatiGlucose [Mass/volume] in Serum or Plasma Ordered By: Lon Ibrahim on 08-59-4642Cdydiyv [Mass/Vol]94 mg/rBUznypm45-746 [facility] - CincinnatiComment on above:ADA recommended reference rangeRandom Glucose Reference [...] ADA recommended reference rangePerformed By: #### CMP, A1C WTH eA, LIPID, CBC, TSH3 #### [facility] [address] [place] [id number] USAHematocrit [Volume Fraction] of Blood by Automated count Ordered By: Lon Ibrahim on 57-73-7836Reiuprlwgz (Bld) [Volume fraction]44.1 % Gpfbky82.0-46.4FOur Lady of Mercy HospitalComment on above:Performed By: #### CMP, A1C WTH eA, LIPID, CBC, TSH3 #### [facility] [address] [place] [address] USAHemoglobin A1c/Hemoglobin.total in BloodOrdered By: Lon Ibrahim on 58-79-3041WyJ4y (Bld) [Mass fraction]5.4 %Normal4.3-5.6FOur Lady of Mercy HospitalComment on above:Increased risk for diabetes: 5.7 - 6.4diabetes: >6.4glycemic control for adults with diabetes: <7.0Result Comment: Increased risk for diabetes: 5.7 - 6.4 diabetes: >6.4 glycemic control for adults with diabetes: <7.0Performed By: #### CMP, A1C WTH eA, LIPID, CBC, TSH3 #### [facility] [address] [place] [address] USAHemoglobin [Mass/volume] in BloodOrdered By: Lon Ibrahim on 33-18-1832Gwxbwyanfp (Bld) [Mass/Vol]14.4 g/eOIwvgfh35.8-15.4FOur Lady of Mercy HospitalComment on above:Performed By: #### CMP, A1C WTH eA, LIPID, CBC, TSH3 #### [place] [id number] USALeukocytes [#/volume] corrected for nucleated erythrocytes in Blood by Automated counOrdered By: Lon Ibrahim on 16-02-8457PLU corrected for nucl RBC Auto (Bld) [#/Vol]8.7 10*3/uL3.8-11.[facility] Leukocytes [#/volume] in Blood by Automated countOrdered By: Lon Ibrahim on 75-94-8386KQO (Bld) [#/Vol]8.7 10*3/uLNormal3.8-11.6FOur Lady of Mercy HospitalComment on above:Performed By: #### CMP, A1C WTH eA, LIPID, CBC, TSH3 #### [facility] [address] [place] [address] USALipid Panelon 25-73-7675FYR Cholesterol,Nhwupxoqam88 mg/dL Normal0-100The [facility] Physician [facility]ing River GulfportComment on above:Result Comment: LDL ATP III CLASSIFICATION LDL less than 100 mg/dL Optimal LDL 100-129 mg/dL Near or above optimal LDL 130-159 mg/dL Borderline high LDL 160-189 mg/dL High LDL greater than 189 mg/dL Very highPerformed By: #### CMP, A1C WTH eA, LIPID, CBC, TSH3 #### [facility] [address] [place] [address] USATriglyceride w/Axnwmh309 mg/dLHigh0-149[facility] Physician GroupComment on above:Result Comment: TRIG ATP III CLASSIFICATION TRIG less than 150 mg/dL Normal TRIG 150-199 mg/dL Borderline high TRIG 200-500 mg/dL High TRIG greater than 500 mg/dL Very high Standard traceable to the Center for Disease Conrtrol and Prevention (CDC) test method.Performed By: #### CMP, A1C WTH eA, LIPID, CBC, TSH3 #### [facility] [address] [place] [address] USAVLDL QZWDQMPPKMP10 mg/dLNormalThe [facility] Physician GroupComment on above:Performed By: #### CMP, A1C WTH eA, LIPID, CBC, TSH3 #### [facility] [address] [place] [address] USALymphocytes [#/volume] in Blood by Automated countOrdered By: Lon Ibrahim on 76-21-3117Anpscyjqpsg (Bld) [#/Vol]1.6 10*3/uLNormal1.00-4.8 [facility] - CincinnatiComment on above:Performed By: #### CMP, A1C WTH eA, LIPID, CBC, TSH3 #### [facility] [address] [place] [address] USALymphocytes/100 leukocytes in Blood by Automated count Ordered By: Lon Ibrahim on 29-88-2761Taunhruycqj/100 WBC (Bld)18.8 %Normal. [facility] - CincinnatiComment on above:Performed By: #### CMP, A1C WTH eA, LIPID, CBC, TSH3 #### [facility] [address] [Entitic mass] by Automated countOrdered By: Lon Ibrahim on 10-08-2138CJB (RBC) [Entitic mass]30.9 ixRvbvqg01.7-34.3FOur Lady of Mercy HospitalComment on above:Performed By: #### CMP, A1C WTH eA, LIPID, CBC, TSH3 #### [facility] [address] Auto (RBC) [Mass/Vol]Ordered By: Lon Ibrahim on 19-46-5407VDRK (RBC) [Mass/Vol]32.6 g/dL32.0-35.0[facility] HospitalV [Entitic volume] by Automated countOrdered By: Lon Ibrahim on 52-78-4761PAJ (RBC) [Entitic vol]94.9 yDWkotns25-689LadrilkqtSelect Medical Specialty Hospital - CincinnatiComment on above:Performed By: #### CMP, A1C WTH eA, LIPID, CBC, TSH3 #### [facility] [address] [place] [address] USAMonocytes [#/volume] in Blood by Automated countOrdered By: Lon Ibrahim on 81-39-2568Kreauzbtb (Bld) [#/Vol]0.5 10*3/uLNormal0.0-0.8 [facility] - CincinnatiComment on above:Performed By: #### CMP, A1C WTH eA, LIPID, CBC, TSH3 #### [facility] [address] [place] [address] USAMonocytes/100 leukocytes in Blood by Automated count Ordered By: Lon Ibrahim on 15-85-9473Owpdcunst/100 WBC (Bld)5.7 %Normal.[facility] - CincinnatiComment on above:Performed By: #### CMP, A1C WTH eA, LIPID, CBC, TSH3 #### [facility] [address] [place] [address] USANeutrophils [#/volume] in Blood by Automated countOrdered By: Lon Ibrahim on 17-74-0418Omadpgxounx (Bld) [#/Vol]6.3 10*3/uLNormal1.8-7.7 [facility] - CincinnatiComment on above:Performed By: #### CMP, A1C WTH eA, LIPID, CBC, TSH3 #### [facility] [address] [place] [id number] USANeutrophils/100 leukocytes in Blood by Automated count Ordered By: Lon Ibrahim on 12-08-4813Znbkvgwshgr/100 WBC (Bld)72.8 %Normal. [facility] - CincinnatiComment on above:Performed By: #### CMP, A1C WTH eA, LIPID, CBC, TSH3 #### [facility] [address] [place] [address] USANo Panel InformationOrdered By: Lon Ibrahim on 12-13-2024 Pharmacy Creatinine Clearance (ChemN/[facility] HospitalNucleated erythrocytes [Presence] in Blood by Automated countOrdered By: Lon Ibrahim on 14-94-0435Njjbhkuoy RBC Auto Ql (Bld)0.1 /100{WBC}0-0.5FOur Lady of Mercy HospitalPlatelet mean volume [Entitic volume] in Blood by Automated count Ordered By: Lon Ibrahim on 42-28-1881Llsiotcv mean volume (Bld) [Entitic vol]8.1 fLNormal6.3-10.7FOur Lady of Mercy HospitalComment on above:Performed By: #### CMP, A1C WTH eA, LIPID, CBC, TSH3 #### [facility] [address] [place] [id number] USAPlatelets [#/volume] in Blood by Automated countOrdered By: Lon Ibrahim on 58-40-6538Oidtogsvg (Bld) [#/Vol]298 10*3/wGUbtlfy844-351 [facility] - CincinnatiComment on above:Performed By: #### CMP, A1C WTH eA, LIPID, CBC, TSH3 #### [facility] [address] [place] [address] USAPotassium [Moles/volume] in Serum or PlasmaOrdered By: Lon Ibrahim on 53-62-3937Zmlnxhmfs [Moles/Vol]4.1 mmol/LNormal3.5-5.1FOur Lady of Mercy HospitalComment on above:Performed By: #### CMP, A1C WTH eA, LIPID, CBC, TSH3 #### [facility] [address] [place] [address] USAProtein [Mass/volume] in Serum or PlasmaOrdered By: Lon Ibrahim on 72-88-0406Epiljsh [Mass/Vol]7.4 g/dLNormal6.4-8.9[facility] - CincinnatiComment on above:Performed By: #### CMP, A1C WTH eA, LIPID, CBC, TSH3 #### [facility] [address] [place] [id number] USASerum globulin measurement by calculation (mass/volume) Ordered By: Lon Ibrahim on 63-37-1299Kzzfwlfy (S) [Mass/Vol]3.6 g/dLNormal [facility] CincinnatiComment on above:Performed By: #### CMP, A1C WTH eA, LIPID, CBC, TSH3 #### [facility] [address] [place] [phone] USASerum or plasma albumin/globulin mass ratioOrdered By: Lon Ibrahim on 41-76-4006Itiupea/Globulin [Mass ratio]1.1 {ratio}NormalSelect Medical Specialty Hospital - CincinnatiComment on above:Performed By: #### CMP, A1C WTH eA, LIPID, CBC, TSH3 #### [facility] [address] [place] [phone] USASerum or plasma anion gap determinationOrdered By: Lon Ibrahim on 42-99-7334Zgtcg gap [Moles/Vol]11.5 mmol/LNormal6.0-15.0[facility] - CincinnatiComment on above:Performed By: #### CMP, A1C WTH eA, LIPID, CBC, TSH3 #### [place] [id number] USASerum or plasma total cholesterol/high density lipoprotein (HDL) cholesterol mass ratOrdered By: Lon Ibrahim on 12-13-2024 Cholesterol.total/Cholesterol in HDL [Mass ratio]3.5 {ratio}Normal<5.0[facility] - CincinnatiComment on above:Performed By: #### CMP, A1C WTH eA, LIPID, CBC, TSH3 #### [place] [address] USASodium [Moles/volume] in Serum or PlasmaOrdered By: Lon Ibrahim on 42-13-9954Vktxln [Moles/Vol]141 mmol/YNqaler335-457HqyybrgooSelect Medical Specialty Hospital - CincinnatiComment on above:Performed By: #### CMP, A1C WTH eA, LIPID, CBC, TSH3 #### [place] [id number] USAThyrotropin [Units/volume] in Serum or PlasmaOrdered By: Lon Ibrahim on 90-22-9544IOY Qn1.33 m[IU]/LNormal0.45-5.33[facility] - CincinnatiComment on above:Result Comment: PERFORMED BY: [place] [address] PATHOLOGIST CELL MAKER FANY MACK M.D.Performed By: #### CMP, A1C WTH eA, LIPID, CBC, TSH3 #### [place] [id number] USATriglyceride [Mass/volume] in Serum or PlasmaOrdered By: Lon Ibrahim on 84-99-4165Vzdlkcwnfnpl [Mass/Vol]242 mg/dLHigh0-149[facility] - CincinnatiComment on above:TRIG ATP III CLASSIFICATIONTRIG less than 150 mg/dL NormalTRIG 150-199 mg/dL Borderline highTRIG 200-500 mg/dL High TRIG greater than 500 mg/dL Very highStandard traceable to the Center for Disease Conrtrol and Prevention (CDC) test method.Urea nitrogen [Mass/volume] in Serum or PlasmaOrdered By: Lon Ibrahim on 49-33-7361Etzm nitrogen [Mass/Vol]16 mg/dLNormal7-25[facility] - CincinnatiComment on above:Performed By: #### CMP, A1C WTH eA, LIPID, CBC, TSH3 #### [facility] [address] StreetAlanine aminotransferase [Enzymatic activity/volume] in Serum or PlasmaOrdered By: Lon Ibrahim on 99-74-8233ADE [Catalytic activity/Vol] 15 U/L7-52[facility] - CincinnatiAlbumin [Mass/volume] in Serum or Plasma by Bromocresol green (BCG) dye binding methoOrdered By: Lon Ibrahim on 04-23-6505Irjyfwu BCG dye [Mass/Vol]3.9 g/dL3.5-5.7FOur Lady of Mercy HospitalAlkaline phosphatase [Enzymatic activity/volume] in Serum or PlasmaOrdered By: Lon Ibrahim on 12-05-1347TXV [Catalytic activity/Vol]47 U/L93-754KdvbtvtzuSelect Medical Specialty Hospital - CincinnatiAspartate aminotransferase [Enzymatic activity/volume] in Serum or PlasmaOrdered By: Lon Ibrahim on 56-46-0477LHZ [Catalytic activity/Vol] 14 U/O98-35ZyveogovhSelect Medical Specialty Hospital - CincinnatiBasophils Auto (Bld) [#/Vol]Ordered By: Lon Ibrahim on 28-05-7034Ydqrzluke (Bld) [#/Vol]0.0 10*3/uL0.0-0.2FOur Lady of Mercy HospitalBasophils/100 WBC Auto (Bld)Ordered By: Lon Ibrahim on 70-25-3708Szkkagsrd/100 WBC (Bld)0.4 %.[facility] Bilirubin.total [Mass/volume] in Serum or PlasmaOrdered By: Lon Ibrahim on 40-07-3990Mmnpkneoi [Mass/Vol]0.5 mg/dL0.3-1.0[facility] Calcium [Mass/volume] in Serum or PlasmaOrdered By: Lon Ibrahim on 08-03-2023 Calcium [Mass/Vol]9.1 mg/dL8.6-10.3FOur Lady of Mercy HospitalCarbon dioxide, total [Moles/volume] in Serum or PlasmaOrdered By: Lon Ibrahim on 28-36-7851DZ2 [Moles/Vol]26.2 mmol/L21.0-31.0[facility] Chloride [Moles/volume] in Serum or PlasmaOrdered By: Lon Ibrahim on 08-03-2023 Chloride [Moles/Vol]109 mmol/GJyxr77-264TixnedztnSelect Medical Specialty Hospital - Cincinnati Cholesterol [Mass/volume] in Serum or PlasmaOrdered By: Lon Ibrahim on 08-03-2023 Cholesterol [Mass/Vol]201 mg/iLAcwp333-040BjbfehtuxSelect Medical Specialty Hospital - Cincinnati Comment on above:Chol less than 200 mg/dl low riskChol 201-239 mg/dl borderline riskChol 240 mg/dl and greater high riskCholesterol in LDL Calc [Mass/Vol] Ordered By: Lon Ibrahim on 98-40-4112Dnggotkiyvr in LDL [Mass/Vol]107 mg/dLHigh 0-100[facility] - CincinnatiComment on above:LDL ATP III CLASSIFICATIONLDL less than 100 mg/dL OptimalLDL 100-129 mg/dL Near or above yimxbrpWXN089-968 mg/dL Borderline highLDL 160-189 mg/dL HighLDL greater than 189 mg/dL Very highCholesterol in VLDL Calc [Mass/Vol]Ordered By: Lon Ibrahim on 64-17-2556Fmijcmaltgl in VLDL [Mass/Vol]39 mg/dLSelect Medical Specialty Hospital - CincinnatiCreatinine [Mass/volume] in Serum or PlasmaOrdered By: Lon Ibrahim on 94-87-9146Mrfcwpuftj [Mass/Vol]1.02 mg/dL0.60-1.20[facility] - CincinnatiEosinophils Auto (Bld) [#/Vol]Ordered By: Lon Ibrahim on 08-03-2023 Eosinophils (Bld) [#/Vol]0.1 10*3/uL0.0-0.45[facility] Eosinophils/100 WBC Auto (Bld)Ordered By: Lon Ibrahim on 08-03-2023 Eosinophils/100 WBC (Bld)2.0 %.[facility] Hospital - CincinnatiErythrocyte distribution width Auto (RBC) [Ratio]Ordered By: Lon Ibrahim on 08-03-2023 Erythrocyte distribution width (RBC) [Ratio]14.7 %11.9-15.3FOur Lady of Mercy HospitalGlobulin Calc (S) [Mass/Vol]Ordered By: Lon Ibrahim on 08-03-2023 Globulin (S) [Mass/Vol]3.3 g/dLSelect Medical Specialty Hospital - CincinnatiGlucose [Mass/volume] in Serum or PlasmaOrdered By: Lon Ibrahim on 95-48-5144Zngjqsq [Mass/Vol]86 mg/sA05-797XjxvixmgeSelect Medical Specialty Hospital - CincinnatiComment on above:ADA recommended reference rangeRandom Glucose Reference Range is dependent on time and content of last meal. Glucose of more than 200 mg/dL in a nonstressed, ambulatory subject supports the diagnosisof Diabetes Mellitus.Glucose mean value [Mass/volume] in Blood Estimated from glycated hemoglobinOrdered By: Lon Ibrahim on 27-81-3929Hyumgxa glucose Estimated from glycated hemoglobin (Bld) [Mass/Vol]103 mg/dLSelect Medical Specialty Hospital - CincinnatiHematocrit Auto (Bld) [Volume fraction]Ordered By: Lon Ibrahim on 16-77-1265Ojsdowioqm (Bld) [Volume fraction]41.8 %34.0-46.4FOur Lady of Mercy HospitalHemoglobin A1c percentageOrdered By: Lon Ibrahim on 77-06-0612MqP5y (Bld) [Mass fraction]5.2 % 4.3-5.6FOur Lady of Mercy HospitalComment on above:Increased risk for diabetes: 5.7 - 6.4diabetes: >6.4glycemic control for adults with diabetes: &l t;7.0Hemoglobin [Mass/volume] in BloodOrdered By: Lon Ibrahim on 08-03-2023 Hemoglobin (Bld) [Mass/Vol]13.9 g/dL11.8-15.4FOur Lady of Mercy Hospital Leukocytes [#/volume] corrected for nucleated erythrocytes in Blood by Automated counOrdered By: Lon Ibrahim on 16-88-4110WWG corrected for nucl RBC Auto (Bld) [#/Vol]6.4 10*3/uL3.8-11.6FOur Lady of Mercy HospitalLymphocytes Auto (Bld) [#/Vol]Ordered By: Lon Ibrahim on 19-59-1622Iheckxhqyze (Bld) [#/Vol]2.0 10*3/uL1.00-4.8[facility] Medical CenterLymphocytes/100 WBC Auto (Bld) Ordered By: Lon Ibrahim on 40-81-1489Kslzvhjdboa/100 WBC (Bld)30.8 %.[facility] HospitalH Auto (RBC) [Entitic mass]Ordered By: Lon Ibrahim on 58-29-1383QAX (RBC) [Entitic mass]30.8 pg24.7-34.3FOur Lady of Mercy HospitalMCHC Auto (RBC) [Mass/Vol]Ordered By: Lon Ibrahim on 03-08-7739SEYL (RBC) [Mass/Vol]33.2 g/dL32.0-35.0[facility] - CincinnatiMCV Auto (RBC) [Entitic vol]Ordered By: Lon Ibrahim on 15-93-4692VAB (RBC) [Entitic vol]93.0 fL 80-100[facility] Hospital - CincinnatiMonocytes Auto (Bld) [#/Vol]Ordered By: Lon Ibrahim on 10-18-1142Neandedif (Bld) [#/Vol]0.4 10*3/uL0.0-0.8[facility] - CincinnatiMonocytes/100 WBC Auto (Bld)Ordered By: Lon Ibrahim on 69-26-1035Cxklyqpgs/100 WBC (Bld)6.0 %.[facility] Neutrophils Auto (Bld) [#/Vol]Ordered By: Lon Ibrahim on 77-57-7320Nrqatooemlg (Bld) [#/Vol]3.9 10*3/uL1.8-7.7FOur Lady of Mercy HospitalNeutrophils/100 WBC Auto (Bld)Ordered By: Lon Ibrahim on 30-02-3861Hihoxlbjsus/100 WBC (Bld)60.8 %.[facility] - CincinnatiNo Panel InformationOrdered By: Lon Ibrahim on 35-49-8132Xleeujbng GFR (CKD-EPI)> 60.0 mL/MinSelect Medical Specialty Hospital - Cincinnati Pharmacy Creatinine Clearance (ChemN/[facility] HospitalNucleated erythrocytes [Presence] in Blood by Automated countOrdered By: Lon Ibrahim on 70-82-0706Iuqsjjdgc RBC Auto Ql (Bld)0.1 /100{WBC}0-0.5Firelands Regional Medical CenterPlatelet mean volume Auto (Bld) [Entitic vol]Ordered By: Lon Ibrahim on 88-06-1758Ubscalbj mean volume (Bld) [Entitic vol]8.7 fL6.3-10.7 [facility] Hospital - CincinnatiPlatelets Auto (Bld) [#/Vol]Ordered By: Lon Ibrahim on 02-52-5156Yuxdzhdey (Bld) [#/Vol]235 10*3/sM996-804PfnbqxmplSelect Medical Specialty Hospital - CincinnatiPotassium [Moles/volume] in Serum or PlasmaOrdered By: Lon Ibrahim on 59-77-0720Gteujwsnv [Moles/Vol]4.3 mmol/L3.5-5.1FOur Lady of Mercy HospitalProtein [Mass/volume] in Serum or PlasmaOrdered By: Lon Ibrahim on 63-73-8633Iqymgoi [Mass/Vol]7.2 g/dL6.4-8.9[facility] Hospital - CincinnatiRBC Auto (Bld) [#/Vol]Ordered By: Lon Ibrahim on 01-20-2534DHJ (Bld) [#/Vol]4.50 10*6/uL3.60-5.00[facility] Medical Centererum or plasma albumin/globulin mass ratioOrdered By: Lon Ibrahim on 02-00-9639Ziguuyy/Globulin [Mass ratio]1.2 {ratio}[facility] Medical Centererum or plasma anion gap determinationOrdered By: Lon Ibrahim on 43-35-8678Daqxk gap [Moles/Vol]12.1 mmol/L6.0-15.0[facility] Medical Centererum or plasma high density lipoprotein (HDL) cholesterol measurementOrdered By: Lon Ibrahim on 08-03-2023 Cholesterol in HDL [Mass/Vol]55 mg/tP41-03TomoymczySelect Medical Specialty Hospital - Cincinnati Comment on above:HDL CHOL ATP-III CLASSIFICATION Cardiovascular RiskHDL > or equal to 60 mg/dL LOWHDL < 40 mg/dL HIGHSerum or plasma total cholesterol/high density lipoprotein (HDL) cholesterol mass ratOrdered By: Lon Ibrahim on 90-61-3835Pdxqjedykke.total/Cholesterol in HDL [Mass ratio]3.7 {ratio}<5.0 [facility] Medical Centerodium [Moles/volume] in Serum or PlasmaOrdered By: Lon Ibrahim on 67-27-6455Pneahj [Moles/Vol]143 mmol/Y514-668UyxcqkyfrSelect Medical Specialty Hospital - CincinnatiThyrotropin [Units/volume] in Serum or PlasmaOrdered By: Lon Ibrahim on 60-46-0185FDA Qn1.60 m[IU]/L0.45-5.33[facility] Hospital - CincinnatiTriglyceride [Mass/volume] in Serum or PlasmaOrdered By: Lon Ibrahim on 64-15-0954Qlrteylaaebl [Mass/Vol]197 mg/dLHigh0-149[facility] - CincinnatiComment on above:TRIG ATP III CLASSIFICATIONTRIG less than 150 mg/dL NormalTRIG 150-199 mg/dL Borderline highTRIG 200-500 mg/dL High TRIG greater than 500 mg/dL Very highStandard traceable to the Center for Disease Conrtrol and Prevention (CDC) test method.Urea nitrogen [Mass/volume] in Serum or Plasma Ordered By: Lon Ibrahim on 82-02-5991Jogd nitrogen [Mass/Vol]30 mg/dLHigh7-25 [facility] - CincinnatiWBC Auto (Bld) [#/Vol]Ordered By: Lon Ibrahim on 78-22-8815JJC (Bld) [#/Vol]6.4 10*3/uL3.8-11.6FOur Lady of Mercy Hospital CNOVon 74-12-2999FAQESiycoq Visit (UROLLN) CARRIE FLETCHER ([id number]) 1970 F Date Time Provider Department 07/14/23 3:30 PM HEATHER FERNANDES During your visit today, we recorded the following information about you: Pulse Blood pressure Weight 88/minute 130/78 158.8 kg Heather Fernandes, AUTOMOTIVE FINANCE MANAGER.BLACK TOP ROLLER 07/14/2023 6:52 PM Signed Carrie Escobar Chance [address] [facility] [place] [address] HISTORY OF PRESENT ILLNESS: Seen 06/04/23 for [...] doing well will cont with present regiment JNO=276 ML US kidney/pelvic w PVR 07/06/23= IMPRESSION: [...] blood in stoo (more content not included)... NormalGre[facility] Informationon 48-16-6122HNUNKOIHCI: 1. Marked thickening of the wall of [...] improved when compared to the prior exams. Risk Officer: BEBETO Transcribe Date/Time: Jul 06 2023 9:38P Dictated by : MARIBEL ROSADO MD This examination was interpreted and the report reviewed and electronically signed by: MARIBEL ROSADO MD on Jul 06 2023 9:48PM [facility] DIVISION OF RADIOLOGYRadiology Study observation (narrative)[facility] InformationOrdered By: Ccf Provider on 53-49-4433Zawexauuc ClinicUS KIDNEY/BLADDERon 06-50-7618JU KIDNEY/BLADDER* * *Final Report* * * DATE OF EXAM: Jul 06 2023 1:40PM [address] KIDNEY/BLADDER / PROCEDURE REASON: Hydronephrosis, unspecified [...] improved when compared to the prior exams. Risk Officer: LOURDES HOSPITALChang Transcribe Date/Time: Jul 06 2023 9:38P Dictated by : MARIBEL ROSADO MD This examination was interpreted and the report reviewed and electronically signed by: MARIBEL ROSADO MD on Jul 06 2023 9:48PM EST [id number] Medical Center Kidney - bilateral and Urinary bladderon 07-06-2023* * *Final Report* * * DATE OF EXAM: Jul 06 2023 1:40PM [place] [address] - KIDNEY/BLADDER / PROCEDURE REASON: Hydronephrosis, unspecified [...] volume measures 138 mL. DIVISION OF RADIOLOGYProvider, [facility] Imaging [place] - 07/06/2023 * * *Final Report* * * DATE OF EXAM: Jul 06 2023 1:40PM [facility] 1055 - US KIDNEY/BLADDER / PROCEDURE REASON: [...] improved when compared to the prior exams. Risk Officer: BEBETO Transcribe Date/Time: Jul 06 2023 9:38P Dictated by : MARIBEL ROSADO MD This examination was interpreted and the report reviewed and electronically signed by: MARIBEL ROSADO MD on Jul 06 2023 9:48PM EST [facility] CenterUS PELVIS BLADDER -NBon 18-81-6471NU PELVIS BLADDER -NB* * *Final Report* * * DATE OF EXAM: Jul 06 2023 1:40PM [facility] 1042 - US PELVIS BLADDER -NB / [...] improved when compared to the prior exams. Risk Officer: PSCB Transcribe Date/Time: Jul 06 2023 9:38P Dictated by : MARIBEL ROSADO MD This examination was interpreted and the report reviewed and electronically signed by: MARIBEL ROSADO MD on Jul 06 2023 9:48PM EST [id number] Medical Center Urinary bladderon 07-06-2023* * *Final Report* * [...] volume measures 138 mL. DIVISION OF RADIOLOGYProvider, f Imaging [place] - 07/06/2023 * * *Final Report* * * DATE OF EXAM: Jul 06 2023 1:40PM [facility] 1042 - US PELVIS BLADDER -NB / [...] improved when compared to the prior exams. Risk Officer: BEBETO Transcribe Date/Time: Jul 06 2023 9:38P Dictated by : MARIBEL ROSADO MD This examination was interpreted and the report reviewed and electronically signed by: MARIBEL ROSADO MD on Jul 06 2023 9:48PM [facility] 87-06-5509YZUZWelbdp Visit (UROLLN) CARRIE FLETCHER ([id number]) 1970 F Date Time Provider Department 06/04/23 1:00 PM HEATHER FERNANDES UROMAYDAN During your visit today, we recorded the following information about you: Pulse Blood pressure Weight 75/minute 149/102 158.8 kg Heather Fernandes, AUTOMOTIVE FINANCE MANAGER.BLACK TOP ROLLER 06/04/2023 3:10 PM Signed Carrie Fletcher [id number] [facility] [address] HISTORY OF PRESENT ILLNESS: Seen 04/19/23 by [...] in no distress. HEAD (more content not included)...NormalWexner Medical Center KIDNEY/BLADDERon 52-09-1990RV KIDNEY/BLADDER* * *Final Report* * * DATE OF EXAM: Jun 01 2023 11:46AM [address] KIDNEY/BLADDER / PROCEDURE REASON: Hydronephrosis, unspecified [...] Decompressed urinary bladder surrounding a Jansen catheter. Risk Officer: Comuto Transcribe Date/Time: Jun 01 2023 4:47P Dictated by : LUIS DANIEL SANZ MD This examination was interpreted and the report reviewed and electronically signed by: LUIS DANIEL SANZ MD on Jun 01 2023 4:50PM EST [id number] HospitalUS Kidney - bilateral and Urinary bladderon 29-35-1618RHASELJPZS: Limited exam due to poor acoustic penetration. Mild bilateral hydronephrosis is suggested. Decompressed urinary bladder surrounding a Jansen catheter. Risk Officer: Comuto Transcribe Date/Time: Jun 01 2023 4:47P Dictated by : LUIS DANIEL SANZ MD This examination was interpreted and the report reviewed and electronically signed by: LUIS DANIEL SANZ MD on Jun 01 2023 4:50PM [facility] DIVISION OF RADIOLOGY* * *Final Report* * * DATE OF EXAM: Jun 01 2023 11:46AM [facility] 1055 - US KIDNEY/BLADDER / PROCEDURE REASON: [...] a Jansen catheter balloon. DIVISION OF RADIOLOGYProvider, [facility] [place] - 06/01/2023 * * *Final Report* * * DATE OF EXAM: Jun 01 2023 11:46AM [facility] 1055 - US KIDNEY/BLADDER / PROCEDURE REASON: [...] Decompressed urinary bladder surrounding a Jansen catheter. Risk Officer: PSCB Transcribe Date/Time: Jun 01 2023 4:47P Dictated by : LUIS DANIEL SANZ MD This examination was interpreted and the report reviewed and electronically signed by: LUIS DANIEL SANZ MD on Jun 01 2023 4:50PM EST [facility] ClinicRadiology Study observation (narrative)[facility] Kidney - bilateral and Urinary bladderOrdered By: Ccf Provider on 94-25-9303Gwjvdefql ClinicDocumentationon [id number] Carrie Fletcher 1970 F Date Provider Department Center 05/18/2023 1007-ILSA PERALTA MP OT Medical Pavi No family history on fileNormalUniversity of Cook Children'S Medical CenterCNPNon 99-85-5508YNOYDrbkfmgqi (UROLLN) CARRIE FLETCHER ([id number]) 1970 F Date Time Provider Department 05/11/23 [...] 05/04/2023 Encounter Status:Closed by APURVA CAMPA on 05/11/23[facility] Rina 02-55-2936CNUSIwwckigvd (UROLLN) CARRIE FLETCHER ([id number]) 1970 F Date Time Provider Department 05/09/23 [...] ordered on 04-19-23 MD Shreyas Griffith Kamille, RN 05/10/2023 11:[address] imaging available in [employer]. Called patient and left detailed message regarding message below for scheduling US prior to office visit with heather. Will fax order. Notified patient we received images through [employer] but not radiology impression, if they caqn fax to us. Our fax number was provided. Luiza Pritchett R.N. Allergies As of Date: 05/09/2023 Noted Allergy Reaction AMOXICILLIN-POT CLAVULANATE 06/29/2022 6 - Diarrhea OXYCODONE 06/29/2022 16 - Unknown ADHESIVE TAPE-SILICONES 11/08/2018 2 - Rash Date Reviewed: 05/04/2023 Reviewed by: Shelbie Betancourt RN - Fully Assessed Primary Visit Diagnosis:Hydronephrosis, unspecified hydronephrosis type [N13.30] Order(s): KIDNEY/BLADDER [[id number]] Order #: [id number] FUTURE Prescriptions as of 05/10/2023 - ciprofloxacin [...] 05/04/2023 Encounter Status:Closed by APURVA CAMPA on 05/09/23[facility] [id number] (LOPROV) CARRIE FLETCHER ([id number]) 1970 F Date Time Provider Department 05/04/23 APURVA CAMPA During your visit today, we recorded the following information about you: Apurva Campa MD 05/04/2023 12:48 PM Signed Patient has cystoscopy under local at [facility] today. Schedule follow-up office visit with nurse [...] Betancourt RN - Fully Assessed Order(s):Order #: [id number] Prescriptions as of 05/04/2023 - ciprofloxacin HCl [...] days. Encounter Status:Closed by APURVA CAMPA on 05/04/23NoSelect Medical [facility] Hospital, BeachwoodCNPNTelephone (UROLLN) CARRIE FLETCHER ([id number]) 1970 F Date Time Provider Department 05/04/23 APURVA CAMPA During your visit today, we recorded the following information about you: Apurva Campa MD 05/04/2023 2:32 PM Signed Please get me the report of CT scan of the patient that was done at [facility] APURVA CAMPA M.D. Barabra Marie MA 05/05/2023 10:38 AM Signed I left a detailed voicemail and playnikhart message in regards to message below. If patient were to call back, please read over messages to patient. Thank you Barbara Marie MA 05/05/2023 1:50 PM Signed Received fax of results. Placed in Dr. Campa's box for further review. Hoda Costello 05/05/2023 1:52 PM Signed Patient returning call. She states she spoke with [facility] and they indicate they will upload the imaging today. It may take 24-48 hours to appear in her chart. Care everywhere utilized to pull report and imaging date. Please call to advise when everything has been received. Hoda Costello [facility] (Patient Operations Support Team) Please note: Please do not re-route encounters back to this agent, please send to appropriate office pool. Agent works in operations center and cannot complete patient specific tasks. Barbara Marie MA 05/05/2023 2:04 PM Signed Tried to call patient, MINESH to return call or send [facility] message back. On Voicemail I explained that [...] 05/04/2023 Encounter Status:Closed by APURVA CAMPA on 05/04/23[facility] HospitalT[facility] PHYSICALon [id number] PHYSICALHNO ID: [id number] Author: BRYCE MON APRN.BLACK TOP ROLLER Service: ? Author Type: Nurse Practitioner Type: [...] DATE: May 04, 2023 TIME: 11:43 AM [facility] PHYSICALH[facility] ID: [id number] Author: APURVA CAMPA MD Service: Urology Author [...] Fletcher DATE: May 04, 2023 TIME: 11:40 AMNormalNewark HospitalOPERATIVE NOon [id number] NOHNO ID: [id number] Author: APURVA CAMPA MD Service: Urology Author [...] verified with patient:: Yes Procedure confirmed with business support administrator:Yes Audible time out was performed: Yes PATIENT [...] TRIGONE: Yes TUMOR: no Jansen catheter 18 Tajik was inserted into the bladder and attached [...] Close/Procedure End Time: 12:31 PM May 04, 2023NormalCMcKitrick HospitalCNPNon [id number] (UROLLN) CARRIE FLETCHER ([id number]) 1970 F Date Time Provider Department 04/20/23 APURVA CAMPA During your visit today, we recorded the following information about you: Apurva Campa MD 04/20/2023 12:28 AM Signed Please schedule patient for local flexible cystoscopy at [facility] on Wednesday05-04-23 MD Angela Griffith Heather A [...] 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 Mixed microbiota can be due to???urine???contamination with skin bacteria at time of collection or presence of a long-term urinary catheter. If a new culture is needed, please consider re-education of the patient on proper midstream collection technique or straight catheterization for???urine???collection.NormalNewark HospitalComment on above: Performed By: #### 630-4 ####[facility] LABCLIA [id number] [address] STATES OF AMERICACNOVon [id number] Visit (UROLLN) CARRIE FLETCHER ([id number]) 1970 F Date Time Provider Department 04/19/23 2:40 PM APURVA CAMPA During your visit today, we recorded the following information about you: Pulse Blood pressure Weight 80/minute 131/87 158.8 kg Apurva Campa MD 04/19/2023 2:43 PM Addendum UA/culture/cytology at [facility] lab Schedule CTU Surgical schedulers will call for cystoscopy under local 05/04/23 office visit post op -05-01 in post op slot 9:20 AM Negrita Da Silva 04/19/2023 2:41 PM Signed Carrie Fletcher [id number] [facility] [id number] is a 52 year old female and is here today for hydronephrosis, bladder mass at the request of Janina Hadley [address] [facility] [address] My final recommendation will be communicated back [...] On Eliquis PLAN: (Management Options): UA/culture/cytology at [facility] lab CTU, GFR 03/31/23: 66 Cystoscopy under local in the operating room 05/04/23. Medical Decision Making: Data: Unique test (more content not included)...NormalNewark Hospital CYTOLOGY NON-GYNon 37-41-3678NCHR REPORTNormalCMcKitrick HospitalComment on above:Order Comment: Specimen Type: FLUID SPECIMENOrdering Facility: [facility] Address:[address] [place], [place] [address]Result Comment: Medical Cytology Report Case: [id number] Authorizing Provider: Apurva Campa MD Collected: 04/19/2023 02:58 PM Ordering Location: Urology Received: 04/19/2023 03:19 PM Pathologist: Ruy Díaz MD Specimen: URINE VOIDEDPerformed By: #### CYTONON ####[facility] LABCLIA [id number] [place] [address] [place] OF AMERICACLINICAL HISTORYbladder mass, hydronephrosisNormalCMercy Health St. [facility] Hospital on above:Order Comment: Specimen Type: FLUID SPECIMENOrdering Facility: [facility] Address:[address] [place], [place] [address]Performed By: #### CYTONON ####[facility] LABCLIA [id number] [place] [id number] [facility] HOSPITALFINAL DIAGNOSISNormalCMercy Health St[facility] on above:Order Comment: Specimen Type: FLUID SPECIMENOrdering Facility: [facility] Address:[address] [place], [place] [address]Result Comment: A - URINE VOIDED Negative for high-grade urothelial carcinoma. Acute inflammation Performed By: #### CYTONON ####[facility] LABCLIA [id number] [address]ETFINAL PERFORMING LAB NormalChillicothe Hospital on above:Order Comment: Specimen Type: FLUID SPECIMENOrdering Facility: [facility] Address:[address] [place], [place] [address]Result Comment: Technical component, ranch helper screening performed at [facility], [address] [place], [place] [id number] CLIA# [id number] Diagnostic interpretation performed at [facility], [address] [place], [place] [address] CLIA# [id number] Manager Of Organizational Development: Sha Boswell M.D.Performed By: #### CYTONON ####[facility] LABCLIA [id number] [place] [id number] [facility]ARYMOUNT HOSPITALGROSS DESCRIPTIONA. URINE VOIDED [facility] on above:Order Comment: Specimen Type: FLUID SPECIMENOrdering Facility: [facility] Address:[address] [place], [place] [address]Result Comment: 10 cc cloudy light yellow fluid . ThinPrep prepared.Performed By: #### CYTONON ####[facility] LABCLIA [id number] [place] [address] [place] OF AMERICAURINALYSIS, REFLEX MICROSCOPICon 02-17-2232ZFCKPELJ UL>9821HighNegative [facility] on above:Order Comment: Specimen Type: URINE SPECIMENOrdering Facility: [facility] Address:[address] [place], [place] [address]Performed By: #### [id number] ####[facility] LABCLIA [id number] [place] [address] [place] OF AMERICABilirubin Ql (U)NegativeNormalNegativeChillicothe Hospital on above:Order Comment: Specimen Type: URINE SPECIMENOrdering Facility: [facility] Address:[address] [place] [address] Performed By: #### [id number] ####[facility] LABCLIA [id number] [place] [address] [place] Clarity (Unsp spec)TurbidAbnormalClePremier Health [facility] Hospital North on above:Order Comment: Specimen Type: URINE SPECIMENOrdering Facility: [facility] Address:[address] [place], [place] [address]Performed By: #### [id number] ####[facility] LABCLIA [id number] [place] [address] [place] AMERICAColor (U)YellowNormal YellowChillicothe Hospital on above:Order Comment: Specimen Type: URINE SPECIMENOrdering Facility: [facility] Address:[address] [place], [place] [address]Performed By: #### [id number] ####[facility] LABCLIA [id number] [place] [address] [place] AMERICAEpithelial cells LM.HPF (Urine sed) [#/Area]ModerateNormal [facility] on above:Order Comment: Specimen Type: URINE SPECIMENOrdering Facility: [facility] Address:[address] [place], [place] [address]Performed By: #### [id number] ####[facility] LABCLIA [id number] [place] [address] [place] AMERICAGlucose Test strip (U) [Mass/Vol]NegativeNormalNegativeChillicothe Hospital on above:Order Comment: Specimen Type: URINE SPECIMENOrdering Facility: [facility] Address:[address] [place], [place] [address]Performed By: #### [id number] ####[facility] LABCLIA [id number] [place] [address] [place] Hemoglobin Ql (U)2+AbnormalNegativeChillicothe Hospital on above: Order Comment: Specimen Type: URINE SPECIMENOrdering Facility: [facility] Address:[address] [place], [place] [address]Performed By: #### [id number] ####[facility] LABCLIA [id number] [place] [address] [place] AMERICAHyaline casts (Urine sed) [#/Area]/[LPF]Abnormal0 /LPFCMercy Health St. [facility] Hospital on above: Order Comment: Specimen Type: URINE SPECIMENOrdering Facility: [facility] Address:[address] [place], [place] [address]Performed By: #### [id number] ####[facility] LABCLIA [id number] [place] [address] [place] AMERICAKetones Ql (U)Negative NormalNegativeChillicothe Hospital on above:Order Comment: Specimen Type: URINE SPECIMENOrdering Facility: [facility] Address:[address] [place], [place] [address]Performed By: #### [id number] ####[facility] LABCLIA [id number] [place] [address] [place] AMERICALeukocyte esterase Test strip Ql (U)3+AbnormalNegative [facility] on above:Order Comment: Specimen Type: URINE SPECIMENOrdering Facility: [facility] Address:[address] [place], [place] [address]Performed By: #### [id number] ####[facility] LABCLIA [id number] [place] [address] [place] AMERICANitrite Ql (U)PositiveAbnormalNegativeChillicothe Hospital on above:Order Comment: Specimen Type: URINE SPECIMENOrdering Facility: [facility] Address:[address] [place] [address] Performed By: #### [id number] ####[facility] LABCLIA [id number] [place] [address] [place] pH (U)7.0 [pH]Normal<8.5CMercy Health St. [facility] Hospital on above:Order Comment: Specimen Type: URINE SPECIMENOrdering Facility: [facility] Address:[address] [place], [place] [address]Performed By: #### [id number] ####[facility] LABCLIA [id number] [place] [address] [place] OF [facility]ARY[facility] HOSPITALProtein (U) [Mass/Vol] 2+AbnormalNegativeChillicothe Hospital on above:Order Comment: Specimen Type: URINE SPECIMENOrdering Facility: [facility] Address:[address] [place], [place] [address]Performed By: #### [id number] ####[facility] LABCLIA [id number] [place] [address] [place] [facility] MARYMOUNT HOSPITALRBC LM.HPF (Urine sed) [#/Area]0- 2 /HPFNormal0-2 /HPFChillicothe Hospital on above:Order Comment: Specimen Type: URINE SPECIMENOrdering Facility: [facility] Address:[address] [place], [place] [address]Performed By: #### [id number] ####[facility] LABCLIA [id number] [place] [address] [place] AMERICASpecific gravity (U) [Rel density]1.454Ekqgca0.005-1.030[facility] on above:Order Comment: Specimen Type: URINE SPECIMENOrdering Facility: [facility] Address:[address] [place], [place] [address]Performed By: #### [id number] ####[facility] [id number] [address]ETUrobilinogen Ql (U)0.2 EU/dLNormal0.2-1.0 EU/dLChillicothe Hospital on above:Order Comment: Specimen Type: URINE SPECIMENOrdering Facility: [facility] Address:[address] [place], [place] [address]Performed By: #### [id number] ####[facility] [id number] [address] STATES [facility] NURSING FACILITYWBC LM.HPF (Urine sed) [#/Area]/[HPF]Abnormal0-5 /HPFChillicothe Hospital on above:Order Comment: Specimen Type: URINE SPECIMENOrdering Facility: [facility] Address:[address] [place], [place] [address]Performed By: #### [id number] ####[facility] [id number] [place] [address] [place] AMERICAUS KIDNEY/BLADDERon 67-76-4065BL KIDNEY/BLADDER* * *Final Report* * * DATE OF EXAM: Apr 15 2023 1:52PM [address] KIDNEY/BLADDER / PROCEDURE REASON: multiple diagnoses [...] be communicated with the ordering provider via [employer] staff message or phone message by [employer] Services within 2 business days of report finalization. --END OF FINDING-- Acuity: Actionable Findings: Kidneys/Ureters/Bladder Routing Code: GU_1 Recommendation: CT UROGRAM WO/W IVCON TimeFrame: at the discretion of the clinical team. --END OF FINDING-- Risk Officer: BEBETO Transcribe Date/Time: Apr 15 2023 4:17P Dictated by : LUIS DANIEL SANZ MD This examination was interpreted and the report reviewed and electronically signed by: LUIS DANIEL SANZ MD on Apr 15 2023 4:28PM EST [id number] ACTIONABLEInvalid Interpretation CodeNewark HospitalUS Kidney - bilateral and Urinary bladderon 13-46-0510Npzrervwo ResultACTIONABLEAbnormal [facility] CenterComprehensive metabolic 2000 panelon 12-38-0375Mexdynh [Mass/Vol]3.6 g/dLLow3.9-4.9CMercy Health St. [facility] on above:Order Comment: Specimen Type: BLOOD SPECIMENOrdering Facility: [facility] Address:[address] [place], [place] [address]Performed By: #### 89024- 8 ####[facility] LABCLIA [id number] [address] [address] [place] OF AMERICAALP [Catalytic activity/Vol]53 U/YJcojqa73-042ElxzyjytpChillicothe Hospital on above:Order Comment: Specimen Type: BLOOD SPECIMENOrdering Facility: [facility] Address:[address] [place], [place] [address]Performed By: #### 84527-2 ####[facility] LABCLIA [id number] [place] [address] [place] AMERICAALT [Catalytic activity/Vol]11 U/LNormal7-38[facility] on above:Order Comment: Specimen Type: BLOOD SPECIMENOrdering Facility: [facility] Address:[address] [place], [place] [address]Performed By: #### 08357-3 ####[facility] LABCLIA [id number] [place] [id number] [place] AMERICAAnion gap [Moles/Vol]12 mmol/LNormal9-18[facility] on above:Order Comment: Specimen Type: BLOOD SPECIMENOrdering Facility: [facility] Address:[address] [place], [place] [address]Performed By: #### 49628-2 ####[facility] LABCLIA [id number] [address] [address] [place] AST [Catalytic activity/Vol]9 U/DMrt35-79CgrmuqwlsChillicothe Hospital on above:Order Comment: Specimen Type: BLOOD SPECIMENOrdering Facility: [facility] Address:[address] [place], [place] [address]Performed By: #### 37328-0 ####[facility] LABCLIA [id number] [place] [id number] [place] OF AMERICABilirubin [Mass/Vol] 0.2 mg/dLNormal0.2-1.3CMercy Health St. [facility] on above:Order Comment: Specimen Type: BLOOD SPECIMENOrdering Facility: [facility] Address:[address] [place], [place] [address]Performed By: #### 84489-4 ####[facility] LABCLIA [id number] [place] [address] [place] AMERICACalcium [Mass/Vol]10.0 mg/dL Normal8.5-10.2CMercy Health St. [facility] on above:Order Comment: Specimen Type: BLOOD SPECIMENOrdering Facility: [facility] Address:[address] [place], [place] [address]Performed By: #### 42478-1 ####[facility] LABCLIA [id number] [place] [address] [place] AMERICAChloride [Moles/Vol]106 mmol/ZBvno31-131NntsmqenuChillicothe Hospital on above:Order Comment: Specimen Type: BLOOD SPECIMENOrdering Facility: [facility] Address:[address] [place], [place] [address]Performed By: #### 36673-8 ####[facility] LABCLIA [id number] [place] [address] [place] CO2 [Moles/Vol]26 mmol/ERuyxwg14-59EygatohmdChillicothe Hospital on above: Order Comment: Specimen Type: BLOOD SPECIMENOrdering Facility: [facility] Address:[address] [place], [place] [address]Performed By: #### 14471- 8 ####[facility] LABCLIA [id number] [place] [address] [place] AMERICACreatinine [Mass/Vol]1.01 mg/dL High0.58-0.96[facility] on above:Order Comment: Specimen Type: BLOOD SPECIMENOrdering Facility: [facility] Address:[address] [place], [place] [address]Performed By: #### 56959-8 ####[facility] LABCLIA [id number] [place] [address] [place] AMERICACreatinine and Glomerular filtration rate.predicted panel (S/P/Bld)67 mL/min/1.73m???Normal>=60[facility] on above:Order Comment: Specimen Type: BLOOD SPECIMENOrdering Facility: [facility] Address:[address] [place], [place] [address]Result Comment: Estimated Glomerular Filtration Rate (eGFR) is [...] not accurately reflect actual GFR.Performed By: #### 29791-2 ####[facility] LABIA [id number] [place] [address] [place] AMERICAGlucose [Mass/Vol]84 mg/dLNormal 74-99[facility] on above:Order Comment: Specimen Type: BLOOD SPECIMENOrdering Facility: [facility] Address:[address] [place], [place] [address]Result Comment: The [place] Diabetes Association (ADA) provides guidance for cutoff [...] Standards of Medical Care in Diabetes 2016, [place] [employer] Association. Diabetes Care. 2016.39(Suppl 1).Performed By: #### 88029-1 ####[facility] LABCLIA [id number] [place] [address] [place] AMERICAPotassium [Moles/Vol]4.7 mmol/L Normal3.7-5.1CMercy Health St. [facility] on above:Order Comment: Specimen Type: BLOOD SPECIMENOrdering Facility: [facility] Address:[address] [place], [place] [address]Performed By: #### 13337-9 ####[facility] LABIA [id number] [place] [address] [place] AMERICAProtein [Mass/Vol]7.6 g/dLNormal6.3-8.0[facility] on above:Order Comment: Specimen Type: BLOOD SPECIMENOrdering Facility: [facility] Address:[address] [place], [place] [address]Performed By: #### 24633-9 ####[facility] LABIA [id number] [place] [address] [place] Sodium [Moles/Vol]144 mmol/TFuonja434-020AprwoquxoChillicothe Hospital on above:Order Comment: Specimen Type: BLOOD SPECIMENOrdering Facility: [facility] Address:[address] [place], [place] [address]Performed By: #### 01427-8 ####[facility] SYSTEMIA [id number] [place] [address] [place] AMERICAUrea nitrogen [Mass/Vol]23 mg/dLHigh7-21[facility] on above:Order Comment: Specimen Type: BLOOD SPECIMENOrdering Facility: [facility] Address:[address] [place], [place] [address]Performed By: #### 08114- 8 ####[facility] LABIA [id number] [place] [address] [place] [facility]ARY[facility]OUNT HOSPITALCNPNon 42-60-9396WJWYOurwdmfql (ANGMNQ) CHNACECARRIE Hector ([id number]) 1970 F Date Time Provider Department 03/25/23 [...] (None) Encounter Status:Closed by TIFFANY GRUBER on 04/01/23NoSelect Medical Cleveland Clinic Rehabilitation Hospital, BeachwoodAlanine aminotransferase [Enzymatic activity/volume] in Serum or Plasma Ordered By: Lon Ibrahim on 61-50-5593SDK [Catalytic activity/Vol]12 U/L7-52 [facility] CincinnatiAlbumin [Mass/volume] in Serum or Plasma by Bromocresol green (BCG) dye binding methoOrdered By: Lon Ibrahim on 01-15-2023 Albumin BCG dye [Mass/Vol]3.7 g/dL3.5-5.7FOur Lady of Mercy Hospital Alkaline phosphatase [Enzymatic activity/volume] in Serum or PlasmaOrdered By: Lon Ibrahim on 31-42-2680SGM [Catalytic activity/Vol]44 U/V07-864RxxrzvbtsSelect Medical Specialty Hospital - CincinnatiAspartate aminotransferase [Enzymatic activity/volume] in Serum or PlasmaOrdered By: Lon Ibrahim on 16-51-7324TUQ [Catalytic activity/Vol] 13 U/L02-58PefhyimczSelect Medical Specialty Hospital - CincinnatiBasophils Auto (Bld) [#/Vol]Ordered By: Lon Ibrahim on 65-97-3657Byzkkqyzz (Bld) [#/Vol]0.0 10*3/uL0.0-0.2FOur Lady of Mercy HospitalBasophils/100 WBC Auto (Bld)Ordered By: Lon Ibrahim on 40-22-5532Ibwiitizf/100 WBC (Bld)0.3 %.[facility] Bilirubin.total [Mass/volume] in Serum or PlasmaOrdered By: Lon Ibrahim on 96-55-9818Rlvekehhm [Mass/Vol]0.3 mg/dL0.3-1.0[facility] Calcium [Mass/volume] in Serum or PlasmaOrdered By: Lon Ibrahim on 01-15-2023 Calcium [Mass/Vol]9.2 mg/dL8.6-10.3FOur Lady of Mercy HospitalCarbon dioxide, total [Moles/volume] in Serum or PlasmaOrdered By: Lon Ibrahim on 39-06-4144YP2 [Moles/Vol]28.4 mmol/L21.0-31.0[facility] Chloride [Moles/volume] in Serum or PlasmaOrdered By: Lon Ibrahim on 01-15-2023 Chloride [Moles/Vol]107 mmol/Y39-525DckxvfrzrSelect Medical Specialty Hospital - CincinnatiCholesterol [Mass/volume] in Serum or PlasmaOrdered By: Lon Ibrahim on 12-82-6309Yfolskloimt [Mass/Vol]193 mg/qZ500-073ZlsnaxrdpSelect Medical Specialty Hospital - CincinnatiComment on above: Chol less than 200 mg/dl low riskChol 201-239 mg/dl borderline riskChol 240 mg/dl and greater high riskCholesterol in LDL Calc [Mass/Vol]Ordered By: Lon Ibrahim on 50-78-6052Vncgnojotxi in LDL [Mass/Vol]104 mg/dL0-100[facility] Hospital - CincinnatiComment on above:LDL ATP III CLASSIFICATIONLDL less than 100 mg/dL OptimalLDL 100-129 mg/dL Near or above youlncqNBT588-603 mg/dL Borderline highLDL 160-189 mg/dL HighLDL greater than 189 mg/dL Very highCholesterol in VLDL Calc [Mass/Vol]Ordered By: Lon Ibrahim on 09-74-1954Thkxehojxru in VLDL [Mass/Vol]39 mg/dLSelect Medical Specialty Hospital - CincinnatiCreatinine [Mass/volume] in Serum or PlasmaOrdered By: Lon Ibrahim on 73-24-4300Rxaoxdfkve [Mass/Vol]0.83 mg/dL0.60-1.20[facility] - CincinnatiEosinophils Auto (Bld) [#/Vol] Ordered By: Lon Ibrahim on 84-68-3448Itgmpbelgse (Bld) [#/Vol]0.1 10*3/uL0.0-0.45 [facility] CincinnatiEosinophils/100 WBC Auto (Bld)Ordered By: Lon Ibrahim on 72-33-3912Zwoqshwilhc/100 WBC (Bld)1.6 %.[facility] CincinnatiErythrocyte distribution width Auto (RBC) [Ratio]Ordered By: Lon Ibrahim on 92-07-6305Jrwjhcnbtvw distribution width (RBC) [Ratio]14.1 %11.9-15.3FOur Lady of Mercy HospitalGlobulin Calc (S) [Mass/Vol]Ordered By: Lon Ibrahim on 91-88-0052Ljypudcb (S) [Mass/Vol]3.3 g/dLSelect Medical Specialty Hospital - Cincinnati Glucose [Mass/volume] in Serum or PlasmaOrdered By: Lon Ibrahim on 01-15-2023 Glucose [Mass/Vol]84 mg/dG57-521WtpowvripSelect Medical Specialty Hospital - CincinnatiComment on above:ADA recommended reference rangeRandom Glucose Reference Range is dependent on time and content of last meal. Glucose of more than 200 mg/dL in a nonstressed, ambulatory subject supports the diagnosisof Diabetes Mellitus. Hematocrit Auto (Bld) [Volume fraction]Ordered By: Lon Ibrahim on 01-15-2023 Hematocrit (Bld) [Volume fraction]39.8 %34.0-46.4FOur Lady of Mercy HospitalHemoglobin [Mass/volume] in BloodOrdered By: Lon Ibrahim on 01-15-2023 Hemoglobin (Bld) [Mass/Vol]13.0 g/dL11.8-15.4FOur Lady of Mercy Hospital Leukocytes [#/volume] corrected for nucleated erythrocytes in Blood by Automated counOrdered By: Lon Ibrahim on 79-98-9002NTM corrected for nucl RBC Auto (Bld) [#/Vol]6.8 10*3/uL3.8-11.6FOur Lady of Mercy HospitalLymphocytes Auto (Bld) [#/Vol]Ordered By: Lon Ibrahim on 78-29-3428Bjinlmstwxz (Bld) [#/Vol]2.5 10*3/uL1.00-4.8[facility] CincinnatiLymphocytes/100 WBC Auto (Bld) Ordered By: Lon Ibrahim on 43-58-9254Swmszvonhyf/100 WBC (Bld)37.2 %.[facility] Auto (RBC) [Entitic mass]Ordered By: Lon Ibrahim on 00-79-0334JTN (RBC) [Entitic mass]30.3 pg24.7-34.3FNewark Hospital Auto (RBC) [Mass/Vol]Ordered By: Lon Ibrahim on 46-30-4039AKTU (RBC) [Mass/Vol]32.5 g/dL32.0-35.0[facility] CincinnatiMCV Auto (RBC) [Entitic vol]Ordered By: Lon Ibrahim on 12-03-6817GAJ (RBC) [Entitic vol]93.2 fL 80-100[facility] - CincinnatiMonocytes Auto (Bld) [#/Vol]Ordered By: Lon Ibrahim on 78-75-7927Qynpizumh (Bld) [#/Vol]0.4 10*3/uL0.0-0.8[facility] CincinnatiMonocytes/100 WBC Auto (Bld)Ordered By: Lon Ibrahim on 81-55-3118Oykwvvizx/100 WBC (Bld)6.4 %.[facility] Neutrophils Auto (Bld) [#/Vol]Ordered By: Lon Ibrahim on 69-43-9684Hzzfuqtljud (Bld) [#/Vol]3.7 10*3/uL1.8-7.7FOur Lady of Mercy HospitalNeutrophils/100 WBC Auto (Bld)Ordered By: Lon Ibrahim on 14-46-3248Igtsxfaclae/100 WBC (Bld)54.5 %.[facility] CincinnatiNo Panel InformationOrdered By: Lon Ibrahim on 62-20-1819Lmfqotshc GFR (CKD-EPI)> 60.0 mL/MinSelect Medical Specialty [facility] - [facility] Creatinine Clearance (ChemN/AFOur Lady of Mercy HospitalNucleated erythrocytes [Presence] in Blood by Automated countOrdered By: Lon Ibrahim on 66-86-4854Byjmjiefw RBC Auto Ql (Bld)0.1 /100{WBC}0-0.5FOur Lady of Mercy HospitalPlatelet mean volume Auto (Bld) [Entitic vol]Ordered By: Lon Ibrahim on 40-95-0324Fpspusos mean volume (Bld) [Entitic vol]8.7 fL6.3-10.7 [facility] - CincinnatiPlatelets Auto (Bld) [#/Vol]Ordered By: Lon Ibrahim on 12-09-0732Pcgsewzrd (Bld) [#/Vol]234 10*3/fB924-703XeksrdubuSelect Medical Specialty Hospital - CincinnatiPotassium [Moles/volume] in Serum or PlasmaOrdered By: Lon Ibrahim on 37-28-1593Ktjjwgobk [Moles/Vol]4.1 mmol/L3.5-5.1FOur Lady of Mercy HospitalProtein [Mass/volume] in Serum or PlasmaOrdered By: Lon Ibrahim on 82-49-7434Iahmlqz [Mass/Vol]7.0 g/dL6.4-8.9[facility] - CincinnatiRBC Auto (Bld) [#/Vol]Ordered By: Lon Ibrahim on 90-34-3042RYQ (Bld) [#/Vol]4.27 10*6/uL3.60-5.00[facility] Centererum or plasma albumin/globulin mass ratioOrdered By: Lon Ibrahim on 51-54-3211Arqecuh/Globulin [Mass ratio]1.1 {ratio}[facility] Centererum or plasma anion gap determinationOrdered By: Lon Ibrahim on 55-73-6475Usoym gap [Moles/Vol]9.7 mmol/L6.0-15.0[facility] Centererum or plasma high density lipoprotein (HDL) cholesterol measurementOrdered By: Lon Ibrahim on 01-15-2023 Cholesterol in HDL [Mass/Vol]50 mg/gS88-06StvfghawgSelect Medical Specialty Hospital - Cincinnati Comment on above:HDL CHOL ATP-III CLASSIFICATION Cardiovascular RiskHDL > or equal to 60 mg/dL LOWHDL < 40 mg/dL HIGHSerum or plasma total cholesterol/high density lipoprotein (HDL) cholesterol mass ratOrdered By: Lon Ibrahim on 44-96-4193Ftvswdqqclz.total/Cholesterol in HDL [Mass ratio]3.9 {ratio}<5.0 [facility] Centerodium [Moles/volume] in Serum or PlasmaOrdered By: Lon Ibrahim on 17-15-2246Scacug [Moles/Vol]141 mmol/Y747-201SbgxnbdghSelect Medical Specialty Hospital - CincinnatiThyrotropin [Units/volume] in Serum or PlasmaOrdered By: Lon Ibrahim on 29-03-7434ABV Qn1.78 m[IU]/L0.45-5.33[facility] Hospital - CincinnatiTriglyceride [Mass/volume] in Serum or PlasmaOrdered By: Lon Ibrahim on 11-03-9356Gyvdtpbqothp [Mass/Vol]196 mg/dL0-149[facility] Comment on above:TRIG ATP III CLASSIFICATIONTRIG less than 150 mg/dL NormalTRIG 150-199 mg/dL Borderline highTRIG 200-500 mg/dL High TRIG greater than 500 mg/dL Very highStandard traceable to the Center for Disease Conrtrol and Prevention (CDC) test method.Urea nitrogen [Mass/volume] in Serum or PlasmaOrdered By: Lon Ibrahim on 58-17-6266Kzur nitrogen [Mass/Vol]22 mg/dL7-25[facility] - CincinnatiWBC Auto (Bld) [#/Vol]Ordered By: Lon Ibrahim on 14-83-2088LQP (Bld) [#/Vol]6.8 10*3/uL3.8-11.6FOur Lady of Mercy HospitalUrinalysis - AUTOMATEDon 83-67-7266Ngdgtpeczf (U)cloudyNInStream Media Other Bilirubin Ql (U)NegativeVaporWire Other Color (U)brownVaporWire Other Glucose Ql (U)NegativeVaporWire Other Hemoglobin Ql (U)Yassets Other Ketones Ql (U)TraceMetaforic [employer] Other Leukocyte esterase Test strip Ql (U)[employer]assets Other Nitrite Ql (U)PositiveTopanga Technologies Other pH (U)6.0 [pH][employer] Other Protein Ql (U)30+VaporWire Other Specific gravity (U) [Rel density]1.015[facility]. LouisAdama Innovations Other Urobilinogen (U) [Mass/Vol]0.2 mg/dLNort Button Brew House Other Urinalysis - AUTOMATEDNortAdama Innovations Other XR LUMBAR MOTION 4V AP/LAT/ FLEX/EXTon 12-21-2022 [facility] Panel Informationon 46-31-9236Hcbeupedi ResultACTIONABLE AbnormalFairfield Medical CenterTelephoneon [phone] Chance,Carrie 1970 F Date Provider Department Center 11/13/2022 ILSA MÁRQUEZ MP OT [facility] No family history on fileNormalUniversity of Cook Children'S Medical CenterNo Panel Informationon 06-50-4346Elovirhsx ClinicTelephoneon [phone] Chance,Carrie 1970 F Date Provider Department Center 08/27/2022 ILSA MÁRQUEZ OT [facility] No family history on fileNormalUniversity of Cook Children'S Medical CenterTelephoneon [phone] Chance,Carrie 1970 F Date Provider Department Center 08/24/2022 ILSA MÁRQUEZ OT [facility] No family history on fileNormalUniversity of Cook Children'S Medical CenterCT CERVICAL SPINE WO CONTRASTon 87-60-5658GT CERVICAL SPINE WO CONTRASTEXAMINATION: CT OF THE [...] at C5-C6 and mild elsewhere. There is yait-cf-trvknpvr multilevel facet arthropathy in the spine. Central canal narrowing appears at least moderate and possibly severe at C5-C6 and is mild at C3-C4 and C6-C7. Multilevel osseous foraminal narrowing is mild bilaterally at C3-C4, mild on the left at C4-C5 and tlrz-xd-uohyomex bilaterally at C5-C6. SOFT TISSUES: There is no prevertebral soft tissue swelling. IMPRESSION: 1. Prior anterior metallic fusion discectomy at C4-C5 out evident hardware complication. 2. Spinal degenerative changes as described. Multilevel central canal narrowing is most prominent at least moderate and possibly severe at C5-C6. Multilevel osseous neural foraminal narrowing is most prominent and obzp-bh-ejlyvlmf bilaterally at C5-C6. Interpreted by: Ilsa Whitley MD Signed by: Ilsa Whitley MD 07/17/22 Final resultNormalMercy Veterans Administration Medical Centerulatory Visit Summaryon 06-16-2022 Ambulatory Visit Summary CARRIE [...] multivitamin (Multi Vitamin+) omega-3 polyunsaturated fatty acids (Richland-3) Procedures Performed Urodynamics (12/10/2021), Cystourethroscopy and dilation [...] Nicole KEENE MD Where: [facility] Educationon 80-42-1336Rjdcrcs EducationObstetrics and Gynecology Urinary Tract Infection, Adult [...] this condition includes: ? Antibiotic medicine. ? Gjsr-zca-sayzjos medicines to treat discomfort. ? Drinking enough [...] these instructions at home: Medicines ? Take cqtm-yzz-mqcllza and prescription medicines only as told by [...] Document Revie (more content not included)...Normal [facility] CenterUrology Office/Clinic Noteon 17-46-4629Jsrxuru Office/Clinic NoteChief Complaint 3 month HPI Staff This is a 51 year old female here for 3 month F/U. Previous DX: recurrent UTI, incontinence withoutsensory awareness, asymptomatic micro hematuria and postinfective urethral stricture in female. S/PCysto/UD done 07/21/21. Pt. is not able to give a urine sample today. Pt. states VESIcare is workinga little. Pt. states she has [...] report. Patient also experiencing urge incontinence. Continues LGRCtqyp0cc daily, states it is somewhat working. Patient [...] Information YECENIA FOLEY, Nicole Garcia, URL [address] [id number]- Additional Instructions: 1 year Patient Education Urinary [...] History Urodynamics (12/10/2021), Cystourethr (more content not included)...[facility] HospitalComment on above:Result Comment: Electronically Signed By: Nicole KEENE MD\.br\Date and Time Signed: 06/16/22 10:23 EDT\.br\Electronically Co-Signed By: Peyton Bond\.br\Date and Time Co- Signed: 06/16/22 10:19 EDTMRI CERVICAL SPINE WO CONTRASTon 76-19-1043IWV CERVICAL SPINE WO CONTRASTEXAMINATION: MRI OF THE [...] Signed by: Ramsey Trammell MD 05/19/22 Final resultNormalMerThe Institute of Living1. Anterior cervical discectomy and fusion of C4-C5. 2. Multilevel cervical spondylosis, most notable at C5-C6 (severe spinal canal stenosis, suspected severe bilateral foraminal narrowing). 3. Chronic C4-C5 myelomalacia. [facility] RIS CONSOLIDATEDEXAMINATION: MRI OF THE CERVICAL SPINE [...] bilateral foraminal narrowing). 3. Chronic C4-C5 myelomalacia. [facility] Swogo Phone: MRI CERVICAL SPINE WO CONTRASTOrdered By: Ramsey Trammell on 77-66-1795NDH Swogo Phone: MRI CERVICAL SPINE WO CONTRASTon 76-29-9686Qyueevapj Study observation (narrative)[facility] Swogo Phone: coding Summary.on 57-67-0977Urebgk Summary. CD:[id number]+PGhlYWQ+RG1QZSAkI36fdDBydW3AV3kMXO2ZAPJWBYKPFU5XIS2tw KZ5KJlxG1BaavHs [file] c2U6 (more content not included)...[facility] HospitalLab Reports on 06-82-2980Xuz [id number]#1.00CD:127 [facility] Urineon 66-69-3252Mlmpkbtb identified Cx Nom (U)Microbiology PROCEDURE: Urine Culture [...] Locations R1: This test was performed at: [facility], [address] [place] [address], [address] [place] [address], AndkqvCbwesvMercy Health Allen HospitalComment on above:Performed By: #### [id number] ####[facility] [address] [place], [place] [address]Ambulatory Visit Summaryon 48-28-4225Fgwcadfsti Visit Summary 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1970 Visit Date:02/24/2022 Ambulatory Visit Instructions Your Diagnosis Recurrent UTI Incontinence without sensory awareness Asymptomatic microscopic hematuria Postinfective urethral stricture in female Anticoagulated Tests Performed Urnls Dip Stick Auto w/o Microscopy POC 73259 Your Care Team Attending Physician - Nicole [...] multivitamin (Multi Vitamin+) omega-3 polyunsaturated fatty acids (Richland-3) Procedures Performed Urodynamics (12/10/2021), Cystourethroscopy and dilation [...] [facility] Educationon 07-82-0915Tmvjczy EducationObstetrics and Gynecology Urinary Tract Infection, Adult [...] this condition includes: ? Antibiotic medicine. ? Lnhn-poe-ehegrko medicines to treat discomfort. ? Drinking enough [...] these instructions at home: Medicines ? Take rtcz-csl-lghnfgq and prescription medicines only as told by [...] is important. This in (more content not included)...[facility] HospitalUrology Office/Clinic Noteon 13-37-9768Gtrjppp Office/Clinic NoteChief Complaint 2 month F/U HPI [...] When Contact Information YECENIA FOLEY, Nicole Garcia, URDavie [address] [phone]- Additional Instructions: 3 mos Patient Education Urinary [...] Incontinence without sensory aw (more content not included)...[facility] HospitalComment on above:Result Comment: Electronically Signed By: Nicole KEENE MD\.br\Date and Time Signed: 02/24/22 13:22 EST\.br\Electronically Co- Signed By: Peyton Bond\.br\Date and Time Co-Signed: 02/24/22 12:57 EST IntraOperative Documentson 34-71-6303FnflcNrjimxrdd Documents [id number]:127[facility] HospitalIntraOperative Documents [id number]:127[facility] HospitalAmbulatory Visit Summaryon 40-49-4586Xpziwoukkx Visit Summary 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1970 Visit Date:12/30/2021 Ambulatory Visit Instructions Your Diagnosis Recurrent UTI Incontinence without sensory awareness Asymptomatic microscopic hematuria Postinfective urethral stricture in female Anticoagulated Tests Performed Urnls Dip Stick Auto w/o Microscopy POC 01126 Your Care Team Attending Physician - Nicole [...] multivitamin (Multi Vitamin+) omega-3 polyunsaturated fatty acids (Rich[place]-3) Procedures Performed Urodynamics (12/10/2021), Cystourethroscopy and dilation [...] [facility] HospitalPatient Educationon 84-36-2601Asqxrhf EducationObstetrics and Gynecology Urinary Tract Infection, Adult [...] this condition includes: ? Antibiotic medicine. ? Tmoh-tiv-nnkohnr medicines to treat discomfort. ? Drinking enough [...] these instructions at home: Medicines ? Take cldi-muk-deotogn and prescription medicines only as told by [...] is important. This in (more content not included)...[facility] HospitalUrology Office/Clinic Noteon 19-01-1864Nfpzvyh Office/Clinic NoteChief Complaint 2 week F/U HPI [...] than what it was. 5. 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 Patient [...] Information YECENIA FOLEY, Nicole Garcia, URL [address] [place] [address]- Additional Instructions: 2 mos f/up to [facility] Patient Education Urinary Tract Infection, Adult I, Peyton Bond, personally scribed for Dr. Keene on 12/30/2021 09:57:23. Electronically signedby marcelino Bond on 12/30/2021 Documentation recorded by the scribePeyton, accurately reflects [...] aureus) culture positive Neurogeni (more content not included)...[facility] HospitalComment on above:Result Comment: Electronically Signed By: Nicole KEENE MD\.br\Date and Time Signed: 12/30/21 10:01 EST\.br\Electronically Co-Signed By: Peyton Bond\.br\Date and Time Co-Signed: 12/30/21 09:57 ESTPhysician Orderon 83-59-0384Wugcpydlj [id number]#1.00CD:127 [facility] HospitalCoding Summary.on 47-99-5826Virxkd Summary. CD:[id number]+PGhlYWQ+CB4DFMJaW53rlHAljF5FY0fZBB7DQHWYFPRBJC5KIK1ry NB4YOjzU3TiwyEr [file] c2U6 (more content not included)...[facility] Urineon 11-42-1803Frfxoweg identified Cx Nom (U)Microbiology PROCEDURE: Urine Culture [...] I=Intermediate, ESBL=Extended spectrum beta-lactamase, R=Resistant, TFG=Thymidine-dependent strain, LUSIA=Beta-lactamase positive, JAVIER=mcg/m;(mg/L), S*=Predicted susceptible interp, R*=Predicted resistant [...] Locations R1: This test was performed at: [facility], [address] [place] [address], [address] , , QzecqvNhszaaMercy Health Allen HospitalComment on above:Performed By: #### [id number] ####[facility] [address] [place], [place] [address]Sktbzrwde Orderon 20-55-7094Gzilnlmlj Order [id number]#1.00CD:127[facility] HospitalAmbulatory Visit Summaryon 74-69-5837Rczzixpqgb Visit Summary CHANCECARRIE Luz :1970 Visit Date:12/22/2021 Ambulatory Visit Instructions Your Diagnosis Recurrent UTI 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 Asymptomatic microscopic hematuria Urgency incontinence Anticoagulated Tests Performed Urnls Dip Stick Auto w/o Microscopy POC 49949 Your Care Team Attending Physician - Nicole [...] multivitamin (Multi Vitamin+) omega-3 polyunsaturated fatty acids (Rich[place]-3) Procedures Performed Urodynamics (12/10/2021), Cystourethroscopy and dilation [...] FOLEY, Nicole Garcia Where: [facility] Educationon 79-56-3391Emegdla EducationUrology Urodynamic Testing What is urodynamic testing? [...] including vitamins, herbs, eye drops, creams, and fpjb-wfi-hwviwxy medicines. ? Whether you are or may [...] ? Nervous system diseases. (more content not included)...[facility] HospitalUrology Office/Clinic Noteon 72-89-1798Dkxlnsh Office/Clinic NoteChief Complaint follow up to Urodynamics [...] pt experiencing urgency, frequency. 6. 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 It [...] Contact Information YECENIA FOLEY, Nicole Garcia, URL [facility] [id number]- Additional Instructions: F/u 2 weeks Patient Education Urodynamic Testing I, Sheeba Gunn, personally scribed for Dr. Keene on 12/22/2021 15:46:36. . Documentation recorded by the scribe, Kelly Craft, accurately reflects the services(s) I performed and decisions made by me. Authenticated by Dr. Keene on 12/22/2021 15:54:15. Problem List/Past Medical History Ongoing Anticoagulated (more content not included)...[facility] HospitalComment on above: Result Comment: Electronically Signed By: Nicole KEENE MD\.br\Date and Time Signed: 12/22/21 15:54 EST\.br\Electronically Co-Signed By: Sheeba Gunn\.br\Date and Time Co-Signed: 12/22/21 15:47ESTCoding Summary.on 12-11-2021 Coding Summary. CD:[id number]+PGhlYWQ+GE9ZIRGsS88qaCGjaB2CP0xXNH1AUURYRCDIEZ0PCA3fd EI0XSfnR6FdycAf [file] OiBj (more content not included)...NormalParkview Health Montpelier HospitalConsent for Procedure/Surgeryon 22-96-4816Pmkqxir for Procedure/Surgery [id number]#1.00CD:127NormCleveland Clinic Mercy HospitalConsent for Treatmenton 44-29-8799Vphoehk for Treatment [id number]#1.00CD:127[facility] HospitalAlbumin [Mass/volume] in Serum or PlasmaOrdered By: Lon Ibrahim on 70-31-3915Rmdxpsk [Mass/Vol]3.3 g/dL3.2-5.5FOur Lady of Mercy Hospital Basophils Auto (Bld) [#/Vol]Ordered By: Lon Ibrahim on 34-28-7800Shhsnbtwr (Bld) [#/Vol]0.0 10*3/uL0.0-0.2FOur Lady of Mercy HospitalBasophils/100 WBC Auto (Bld)Ordered By: Lon Ibrahim on 61-08-2177Bvzhbehrd/100 WBC (Bld)0.5 %.[facility] CincinnatiBlood hemoglobin measurement (mass/volume)Ordered By: Lon Ibrahim on 39-51-6841Xqoowvadmi (Bld) [Mass/Vol]12.8 g/dL11.8-15.4FOur Lady of Mercy HospitalBlood leukocytes automated count (number/volume)Ordered By: Lon Ibrahim on 72-24-3578XCM (Bld) [#/Vol]6.2 10*3/uL4.5-11.0[facility] - CincinnatiCholesterol [Mass/volume] in Serum or PlasmaOrdered By: Lon Ibrahim on 36-74-3033Hgdccahqion [Mass/Vol]206 mg/wI195-965ObrbbqnmnSelect Medical Specialty Hospital - CincinnatiComment on above:Chol less than 200 mg/dl low risk Chol 201-239 mg/dl borderline risk Chol 240 mg/dl and greater high riskCholesterol in LDL Calc [Mass/Vol]Ordered By: Lon Ibrahim on 09-99-2252Qvhmsdgfuwe in LDL [Mass/Vol]118 mg/dL0-100[facility] - CincinnatiComment on above:LDL ATP III CLASSIFICATION LDL less than 100 mg/dL Optimal LDL 100-129 mg/dL Near or above optimal LDL 130-159 mg/dL Borderline high LDL 160-189 mg/dL High LDL greater than 189 mg/dL Very highCholesterol in VLDL Calc [Mass/Vol]Ordered By: Lon Ibrahim on 28-48-1126Dldhvegunri in VLDL [Mass/Vol]38 mg/dLSelect Medical Specialty Hospital - CincinnatiCreatinine and Glomerular filtration rate.predicted panel (S/P/Bld)Ordered By: Lon Ibrahim on 59-80-3985Pjvjnophgb [Mass/Vol]0.90 mg/dL 0.44-1.03[facility] - CincinnatiEosinophils Auto (Bld) [#/Vol]Ordered By: Lon Ibrahim on 36-66-9008Zboqacyjqyj (Bld) [#/Vol]0.1 10*3/uL0.0-0.45 [facility] - CincinnatiEosinophils/100 WBC Auto (Bld)Ordered By: Lon Ibrahim on 63-80-5761Uuumxmhbpis/100 WBC (Bld)1.7 %.[facility] Hospital - CincinnatiErythrocyte distribution width Auto (RBC) [Ratio]Ordered By: Lon Ibrahim on 35-70-8382Yyrebmqmtwi distribution width (RBC) [Ratio]13.4 %11.9-15.3FOur Lady of Mercy HospitalEstimated glomerular filtration rate (GFR) non- AmericanOrdered By: Lon Ibrahim on 28-43-8190NBU/1.73 sq M.predicted among non- blacks MDRD (S/P/Bld) [Vol rate/Area]> 60 mL/MinSelect Medical Specialty Hospital - CincinnatiFerritin [Mass/volume] in Serum or PlasmaOrdered By: Lon Ibrahim on 96-98-3317Xyfcooeo [Mass/Vol]46.6 ng/aN62-936.8[facility] Folate [Mass/volume] in Serum or PlasmaOrdered By: Lon Ibrahim on 10-16-2021 Folate [Mass/Vol]ng/mL>5.9[facility] Hospital - CincinnatiComment on above: Folate reference range: >5.9 ng/ml The WHO technical consultation on folate and vitamin b12 deficiencies has determined that folate concentrations less than 4 ng/ml are considered deficient.Globulin Calc (S) [Mass/Vol]Ordered By: Lon Ibrahim on 68-93-9437Xiqmrgeh (S) [Mass/Vol]3.3 g/dLSelect Medical Specialty Hospital - CincinnatiGlucose mean value [Mass/volume] in Blood Estimated from glycated hemoglobinOrdered By: Lon Ibrahim on 44-05-9487Rsajbje glucose Estimated from glycated hemoglobin (Bld) [Mass/Vol]105 mg/dLSelect Medical Specialty Hospital - Cincinnati Hematocrit Auto (Bld) [Volume fraction]Ordered By: Lon Ibrahim on 10-16-2021 Hematocrit (Bld) [Volume fraction]39.1 %34.0-46.4FOur Lady of Mercy HospitalHemoglobin A1c percentageOrdered By: Lon Ibrahim on 66-34-1789AuV0m (Bld) [Mass fraction]5.3 %4.3-5.6FOur Lady of Mercy HospitalComment on above: Increased risk for diabetes: 5.7 - 6.4 diabetes: >6.4 glycemic control for adults with diabetes: <7.0Laboratory - Chemistry and Chemistry - challengeOrdered By: Lon Ibrahim on 51-29-0860Wikjxyfyj (Vitamin B12) [Mass/Vol]432 pg/tW192-999BehqrpbcgSelect Medical Specialty Hospital - CincinnatiLaboratory - Hematology and Cell countsOrdered By: Lon Ibrahim on 59-20-2869Dqfzypinc RBC/100 WBC (Bld) [Ratio]0.2 %0-0.5FOur Lady of Mercy HospitalLymphocytes Auto (Bld) [#/Vol]Ordered By: Lon Ibrahim on 28-24-1744Vtgijiaixis (Bld) [#/Vol]2.3 10*3/uL1.00-4.8[facility] Special[facility] Hospital - CincinnatiLymphocytes/100 WBC Auto (Bld) Ordered By: Lon Ibrahim on 86-96-0760Uorkuyrrska/100 WBC (Bld)37.6 %.[facility] Hospital - CincinnatiMCH Auto (RBC) [Entitic mass]Ordered By: Lon Ibrahim on 16-42-1856KCE (RBC) [Entitic mass]30.6 pg24.7-34.3FOur Lady of Mercy HospitalMCHC Auto (RBC) [Mass/Vol]Ordered By: Lon Ibrahim on 42-25-5688EMQU (RBC) [Mass/Vol]32.7 g/dL32.0-35.0[facility] - CincinnatiMCV Auto (RBC) [Entitic vol]Ordered By: Lon Ibrahim on 49-40-8176DRA (RBC) [Entitic vol]93.5 fL 80-100[facility] Hospital - CincinnatiMonocytes Auto (Bld) [#/Vol]Ordered By: Lon Ibrahim on 58-27-6849Gypkdxcxo (Bld) [#/Vol]0.4 10*3/uL0.0-0.8[facility] Hospital - CincinnatiMonocytes/100 WBC Auto (Bld)Ordered By: Lon Ibrahim on 85-36-4269Deqqtuoet/100 WBC (Bld)6.9 %.[facility] [facility] Neutrophils Auto (Bld) [#/Vol]Ordered By: Lon Ibrahim on 57-64-7553Ojoqmbafgex (Bld) [#/Vol]3.3 10*3/uL1.8-7.7FOur Lady of Mercy HospitalNeutrophils/100 WBC Auto (Bld)Ordered By: Lon Ibrahim on 04-86-0529Lhrztxexexd/100 WBC (Bld)53.3 %.[facility]No Panel InformationOrdered By: Lon Ibrahim on 48-85-873423784381-Hdfnwbs Vitamin D Total47.4 ng/iW88-928HdmwrmshzSelect Medical Specialty Hospital - CincinnatiComment on above:VITAMIN D STATUS 25(OH)VITAMIN D RANGE (ng/mL) Deficient <20 Insufficient 20 to <30 Sufficient 30 to 100 Reference: Neema MF,Tico NC, Cindi ANGULO, et al. Evaluation,treatment, and prevention of vitamin D deficiency; an Endocrine Society clinical practice guideline. JCEM. 2010; 96(7):1911-30.Estimated GFR ()> 60 mL/MinSelect Medical Specialty Hospital - CincinnatiComment on above: GFR estimated reference range: According to KDOQI guidelines, <60 ml/min/1.73m2 is sufficient todiagnose a patient with chronic kidney disease.Pharmacy Creatinine Clearance (ChemN/[facility] HospitalPlatelet mean volume Auto (Bld) [Entitic vol]Ordered By: Lon Ibrahim on 98-35-4009Bqfneldc mean volume (Bld) [Entitic vol]8.6 fL6.3-10.7FOur Lady of Mercy Hospital Platelets Auto (Bld) [#/Vol]Ordered By: Lon Ibrahim on 31-36-8899Jyvayazqt (Bld) [#/Vol]237 10*3/pV026-969AvxcquwwcSelect Medical Specialty Hospital - CincinnatiProtein [Mass/volume] in Serum or PlasmaOrdered By: Lon Ibrahim on 55-16-2933Onzmxpp [Mass/Vol]6.6 g/dL 6.1-7.9[facility] CincinnatiRBC Auto (Bld) [#/Vol]Ordered By: Lon Ibrahim on 93-98-0296VYD (Bld) [#/Vol]4.18 10*6/uL3.60-5.00[facility] Medical Centererum or plasma alanine aminotransferase measurement without P-5'-P (enzymatic activiOrdered By: Lon Ibrahim on 89-92-0081EXY No additional P-5'-P [Catalytic activity/Vol]16 U/P69-28QrutlbzbbMetroHealth Cleveland Heights Medical Centererum or plasma albumin/globulin mass ratioOrdered By: Lon Ibrahim on 10-16-2021 Albumin/Globulin [Mass ratio]1.0 {ratio}[facility] Centererum or plasma alkaline phosphatase measurement (enzymatic activity/volume)Ordered By: Lon Ibrahim on 84-75-3467EYI [Catalytic activity/Vol]56 U/N89-42GkaulkdwlMetroHealth Cleveland Heights Medical Centererum or plasma anion gap determinationOrdered By: Lon Ibrahim on 04-47-0210Amafm gap [Moles/Vol]12.5 mmol/L6.0-15.0[facility] Centererum or plasma aspartate aminotransferase measurement (enzymatic activity/volume)Ordered By: Lon Ibrahim on 36-18-1867JZW [Catalytic activity/Vol] 15 U/E40-62IxedbicbhMetroHealth Cleveland Heights Medical Centererum or plasma calcium measurement (mass/volume)Ordered By: Lon Ibrahim on 70-38-5371Mxzaiwp [Mass/Vol]9.3 mg/dL 8.2-10.2FDunlap Memorial Hospitalerum or plasma chloride measurement (moles/volume)Ordered By: Lon Ibrahim on 66-29-0396Lywipwuv [Moles/Vol]103 mmol/L 95-114[facility] Centererum or plasma glucose measurement (mass/volume)Ordered By: Lon Ibrahim on 40-79-0168Kfvuolu [Mass/Vol]80 mg/dL 70-100[facility] - CincinnatiComment on above:ADA recommended reference range Random Glucose Reference Range is dependent on time and content of last meal. Glucose of more than 200 mg/dL in a nonstressed, ambulatory subject supports the diagnosis of Diabetes Mellitus.Serum or plasma high density lipoprotein (HDL) cholesterol measurementOrdered By: Lon Ibrahim on 63-08-0726Bodhoptxtdc in HDL [Mass/Vol]50 mg/fR97-62QklgxwatfSelect Medical Specialty Hospital - CincinnatiComment on above:HDL CHOL ATP-III CLASSIFICATION Cardiovascular Risk HDL > or equal to 60 mg/dL LOW HDL < 40 mg/dL HIGHSerum or plasma potassium measurement (moles/volume)Ordered By: Lon Ibrahim on 73-34-8758Vwbybywhj [Moles/Vol]4.2 mmol/L3.5-5.1FDunlap Memorial Hospitalerum or plasma sodium measurement (moles/volume)Ordered By: Lon Ibrahim on 43-23-0470Kybpyh [Moles/Vol]139 mmol/F807-337PbvoddmvmMetroHealth Cleveland Heights Medical Centererum or plasma total bilirubin measurement (mass/volume) Ordered By: Lon Ibrahim on 65-96-6917Ozgwfcrpa [Mass/Vol]0.5 mg/dL0.3-1.2 [facility] Centererum or plasma total carbon dioxide measurement (moles/volume)Ordered By: Lon Ibrahim on 40-48-8522OL2 [Moles/Vol] 27.7 mmol/L22.0-30.0[facility] Centererum or plasma total cholesterol/high density lipoprotein (HDL) cholesterol mass ratOrdered By: Lon Ibrahim on 29-25-7568Hxkktqxudqx.total/Cholesterol in HDL [Mass ratio]4.1 {ratio} <5.0[facility] Centererum or plasma urea nitrogen measurement (mass/volume)Ordered By: Lon Ibrahim on 71-64-7556Qanf nitrogen [Mass/Vol]21 mg/dL9-23[facility] CincinnatiTS DL <= 0.005 mIU/L QnOrdered By: Lon Ibrahim on 21-96-5588KJX Qn1.34 m[IU]/L0.45-5.33[facility] - CincinnatiTriglyceride [Mass/volume] in Serum or PlasmaOrdered By: Lon Ibrahim on 27-46-3581Jwqhurepantx [Mass/Vol]192 mg/xA87-539UrplpyzucSelect Medical Specialty Hospital - CincinnatiComment on above:TRIG ATP III CLASSIFICATION TRIG less than 150 mg/dL Normal TRIG 150-199 mg/dL Borderline high TRIG 200-500 mg/dL High TRIG greater than 500 mg/dL Very high Standard traceable to the Center for Disease Conrtrol and Prevention (CDC) test method.Ambulatory Visit Summaryon 71-21-1777Qfikmcqcbp Visit Summary CARRIE FLETHCER :1970 Visit Date:09/16/2021 Ambulatory Visit Instructions Your Diagnosis 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 Asymptomatic microscopic hematuria Recurrent UTI Urgency incontinence Anticoagulated Tests Performed Urnls Dip Stick Auto w/o Microscopy POC 68701 Your Care Team Attending Physician - Mihir [...] multivitamin (Multi Vitamin+) omega-3 polyunsaturated fatty acids (Richland-3) Procedures Performed Cystourethroscopy and dilation of bladder [...] [facility] [address], [place] [id number] Medications What How Much When Why Instructions [...] or concerns Unchanged omega-3 polyunsaturated fatty acids (Richland-3) Contact prescribing physician if questions or concerns Test Results Urnls Dip Stick Auto w/o Microscopy POC 64018 (09/16/2021) Bilirubin Urine Dipstick - Negative Blood Urine Dipstick - 2+ Moderate Glucose Urine Dipstick - Negative Ketones Urine Dipstick - Negative Leukocytes Urine Dipstick - 3+ Large Nitrite Urine Dipstick - Negative Protein Urine Dipstick - Negative Specific Weston Urine Dipstick - 1.015 Urine Appearance Urine [...] make, store, and get (more content not included)...[facility] HospitalPatient Educationon 48-84-5426Ajfcknt EducationObstetrics and Gynecology Urinary Tract Infection, Adult [...] these instructions at home: Medicines ? Take ophw-qoh-pwxfavy and prescription medicines only as told by [...] 07/13/2008 Document Revised: 01/12/2019 Document Reviewed: 08/04/2018 [employer] Patient Education ? 2019 [employer].[facility] Office/Clinic Noteon 26-63-8792Wcmcpod Office/Clinic NoteChief Complaint 2 month follow up with Cysto/UD This 51-year-old female urinary incontinence. Status post Patient on 07/21/2021. Since that time her symptoms are well since improved significantly. She stillhas urgency and stress incontinence with the use of 10 incontinence garments per day. He is here todiscuss treatment options. HPI Staff Carrie is here [...] urine and/or bladder capacity by US- non-imaging 58415 Urnls Dip Stick Auto w/o Microscopy POC 66129 Urology Procedure Order 2. 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 Pt states she wears briefs and changes them about 10x/day. Ordered: Measure Post Void residual urine and/or bladder capacity by US- non-imaging 24053 Urnls Dip Stick Auto w/o Microscopy POC 83578 Urology Procedure Order 3. Asymptomatic microscopic hematuria (R31.21: Asymptomatic microscopic hematuria) UA today shows moderate blood. Ordered: Measure Post Void residual urine and/or bladder capacity by US- non-imaging 49926 Urnls Dip Stick Auto w/o Microscopy POC 73385 Urology Procedure Order 4. Recurrent UTI (N39.0: Urinary tract infection, site not specified) Pt states she is unable to feel if she has dysuria or itching. Pt has been taking her Keflex 250mg qd. UA today shows large leuks. Ordered: Measure Post Void residual urine and/or bladder capacity by US- non-imaging 18462 Urnls Dip Stick Auto w/o Microscopy POC 91902 Urology Procedure Order 5. Urgency incontinence (N39.41: Urge incontinence) Pt c/o daytime freq, urgency, bladder spasms, nocturia x2, changes pads multiple times daily. Discussed w/ pt tx options, such as urodynamics. Will schedule Urodynamics. Ordered: Measure Post Void residual urine and/or bladder capacity by US- non-imaging 37720 Urnls Dip Stick Auto w/o Microscopy POC 61317 Urology Procedure Order (more content not included)...[facility] HospitalComment on above: Result Comment: Electronically Signed By: Linden Villarreal MD, Mihir Delgadillo\.br\Date and Time Signed: 09/16/2208:04 EDT\.br\Electronically Co-Signed By: Loren Negro\.br\Date and Time Co-Signed: 09/16/21 08:54 EDTConsent for Procedure/Surgeryon 86-39-9935Rjuposl for Procedure/Surgery [id number]#1.00CD:127NoParkwood HospitalUrology Office/Clinic Noteon 44-47-1802Thgcqhv Office/Clinic NoteChief Complaint Patient in office for [...] urine The Urethra was dilated to: 28 Tajik with sounds. Specimens Removed: None Removal: Cystoscope [...] elsewhere classified, female) cysto/ud done today Ordered: 03216 Cystourethroscop w/ calib and/or dilat of structure/stenosis w/w/o meatotomy / inj Dilation of urethral stricture, female, Initial 86408 2. 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 3. Asymptomatic microscopic hematuria (R31.21: Asymptomatic microscopic hematuria) previous UA showed large Ordered: 21182 Cystourethroscop w/ calib and/or dilat of structure/stenosis w/w/o meatotomy / inj Dilation of urethral stricture, female, Initial 36438 4. Recurrent UTI (N39.0: Urinary tract infection, site not specified) Pt stated she feels as if she currently has a UTI. Stated that her urine is a dark color and a little cloudy. Denies burning. no odor noted. has been taking her suppressive Keflex. Previous UA showed large blood and small AGUSTIN. Ordered: 07379 Cystourethroscop w/ calib and/or dilat of structure/stenosis w/w/o meatotomy / inj Dilation of urethral stricture, female, Initial 62174 5. Urgency incontinence (N39.41: Urge incontinence) c/o daytime freq, urgency, bladder spasms, nocturia x2, changes pads multiple times daily Tried oxybutynin 5mg but stopped it because she felt it made it difficult to void. Ordered: 90737 Cystourethroscop w/ calib and/or dilat of structure/stenosis w/w/o meatotomy / inj Dilation of urethral stri (more content not included)...[facility] HospitalComment on above:Result Comment: Electronically Signed By: Mihir Cheatham Jr., MD\.br\Date and Time Signed: 07/23/2207:18 EDT\.br\Electronically Co-Signed By: Shirley Guevara MA\.br\Date and Time Co-Signed: 07/21/21 15:13 EDTAmbulatory Visit Summaryon 24-20-4133Qtnnocyeaa Visit Summary 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1970 Visit Date:07/21/2021 [...] multivitamin (Multi Vitamin+) omega-3 polyunsaturated fatty acids (Rich[place]-3) Procedures Performed Cystourethroscopy and dilation of bladder [...] Cheatham Jr., MD [facility] HospitalPatient Educationon 98-66-1091Czhoopm EducationObstetrics and Gynecology Overactive Bladder, Adult Overactive [...] instructions ? Take ove (more content not included)...[facility] Urineon 69-79-0078Hpghmhtk identified Cx Nom (U)Microbiology PROCEDURE: Urine Culture [R1] SOURCE: U CleanCatch BODY SITE: COLLECTED DATE/TIME: 07/09/2021 13:50 EDT RECEIVED DATE/TIME: 07/09/2021 18:01 EDT START DATE/TIME: 07/09/2021 18:01 EDT FREE TEXT SOURCE: ANGELITA PAEZ PA-C, PA-C, JENNIFER E FINAL REPORTS Final Report [] Verified Date/Time: [...] Locations R1: This test was performed at: [facility], [address] [place] [address], [address]- , , GddhrtWwxnyzMercy Health Allen HospitalComment on above:Performed By: #### [id number] ####[facility] [address] [place], [place] [address]Pteamt Summary.on 62-91-6923Xddziu Summary. CD:[id number] [id number] [file] c2U6 (more content not included)...[facility] 21-62-7630Xbnvamsgf From: Kelly Dominguez MA To: [facility] - Clinical; Sent: 07/09/2021 13:51:55 EDT Show up: 07/11/2021 13:51:00 EDT Subject: Urine Culture Reminder/Recall Urine Culture addressed. JPNormCleveland Clinic Mercy HospitalAmbulatory Visit Summaryon 50-60-5511Kiktlgipsp Visit Summary 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1970 Visit Date:07/09/2021 Ambulatory Visit Instructions Your Diagnosis Recurrent UTI Weak urine stream Urgency incontinence Microhematuria Tests Performed Urnls Dip Stick Auto w/o Microscopy POC 05981 Your Care Team Attending Physician - ANGELITA [...] multivitamin (Multi Vitamin+) omega-3 polyunsaturated fatty acids (Rich[place]-3) [Image Removed: STOP]Stop taking these medications oxybutynin [...] ANGELITA PAEZ PA-C, URL When: Where: [address] [place] [address] Medications What How Much When Why Instructions New ciprofloxacin (Cipro 500 mg Tab) 1 Tablets By Mouth As Directed Take 1 tablet day before procedure, then 1 tablet day of procedure after procedure. Pickup at [facility]/pharmacy #5659 Unchanged acetaminophen Contact prescribing physician if questions [...] or concerns Unchanged omega-3 polyunsaturated fatty acids (Richland-3) Contact prescribing physician if questions or concerns Pharmacy Information [facility]/pharmacy #[id number]: [address], [place] [id number] [phone] What How Much When Why Comments Stop Taking oxybutynin (oxybutynin 5 mg ER Tab) 1 Tablets By Mouth Every day Urge incontinence Urine frequency Recurrent UTI Microscopic hematuria Test Results Urnls Dip Stick Auto w/o Microscopy POC 19212 (07/09/2021) Bilirubin Urine Dipstick - Negative Blood Urine Dipstick - 3+ Large Glucose Urine Dipstick - Negative Ketones Urine Dipstick - Negative Leukocytes Urine Dipstick - 1+ Small Nitrite Urine Dipstick - Negative Protein Urine Dipstick - 1+ (30 mg/dl) Specific Weston Urine Dipstick - 1.015 Urine Appearance Urine [...] staph aureus) culture (more content not included)... [facility] HospitalPatient Educationon 41-61-8130Ludlari Education Obstetrics and Gynecology Overactive Bladder, Adult [...] instructions ? Take ove (more content not included)...[facility] Urology Office/Clinic Noteon 43-18-3539Nnfrtwd Office/Clinic NoteChief Complaint 3 month f/u HPI [...] Urnls Dip Stick Auto w/o Microscopy POC 93848 2. Weak urine stream (R39.12: Poor urinary [...] Contact Information MARYJANE PEARSON, ANGELITA Meade, URL [address] [place] [address] Additional Instructions: Patient Education Overactive Bladder, Adult [...] mg ER Tab, Oral, Daily Multi Vitamin+ Richland-3 oxybutynin 5 mg ER Tab, 5 mg= [...] History Cardiac arrhythmia: Mot (more content not included)...[facility] HospitalComment on above:Result Comment: Electronically Signed By: ANGELITA PAEZ PA-C\.br\Date and Time Signed: 07/09/2212:49 EDT\.br\Electronically Co- Signed By: Janina Rosa\.br\Date and Time Co-Signed: 07/09/21 13:34 EDT Operative Reporton [id number] ReportMR#: [id number] # [facility] Pt. Name: Carrie Fletcher Room #: D5 [...] cholecystitis. The patient had clearance from the work and family life consultant and she was scheduled for DaVinci assisted [...] position and the right side up. The [employer] Systems[employer]i robot was docked. The gallbladder was found [...] Brown M.D. Date Trans: 03/14/2020 09:53 P/mmo [id number] cc: Lon Ibrahim M.D. [place] [address] [address] [facility] [address]YkyohiWssMansfield HospitalOperative Report MR#: [id number] 2 [facility] Pt. Name: Carrie Fletcher Room #: 4AB [id number] Discharge 03/13/2020 Date: Birthdate: 1970 OPERATIVE REPORT [...] cholecystitis. The patient had clearance from the work and family life consultant and she was scheduled for DaVinci assisted [...] position and the right side up. The [employer] robot was docked. The gallbladder was found [...] A Rehan Brown M.D. Date Dict: 03/14/2020/10:46 A/eRhan Brown M.D. Date Trans: 03/14/2020 09:53 P/mmo [id number] cc: Lon Ibrahim M.D. [address] [facility] [address]UrllfeKisGood Samaritan HospitalBASIC METABOLIC PANELon 30-27-8405Vdwkqcb [Mass/Vol]9.0 mg/dLNormal8.6-10.3The [facility] CampusComment on above:Order Comment: No: Do not add to previous drawPerformed By: #### 86063, 07919, 30623 #### [facility] [address] [place] [address], USAChloride [Moles/Vol]100 mmol/WVrlbec34-227Nuh [facility] CampusComment on above:Order Comment: No: Do not add to previous drawPerformed By: #### 34216, 61075, 21166 #### [facility] [address] [place] [address], USACO2 [Moles/Vol]30 mmol/MZolddn24-26Tbp [facility] CampusComment on above:Order Comment: No: Do not add to previous draw Performed By: #### 75309, 60212, 40180 #### [facility] [address] [place] [address], USACreatinine [Mass/Vol]0.57 mg/dLLow0.60-1.20The [facility] CampusComment on above:Order Comment: No: Do not add to previous drawPerformed By: #### 11794, 70182, 03881 #### [facility] [address] [place] [address], USAGFR/1.73 sq M.predicted among blacks MDRD (S/P/Bld) [Vol rate/Area]mL/min/{1.73_m2}Normal>60The [facility] Comment on above:Order Comment: No: Do not add to previous drawPerformed By: #### 08712, 10296, 21140 #### [facility] [address] [place] [address], USAGFR/1.73 sq M.predicted among non-blacks MDRD (S/P/Bld) [Vol rate/Area]mL/min/{1.73_m2}Normal>60The [facility] Comment on above:Order Comment: No: Do not add to previous drawPerformed By: #### 73565, 81526, 72926 #### [facility] [address] [place] [address], USAGlucose [Mass/Vol]120 mg/gQNfqf30-767Uaf [facility] CampusComment on above:Order Comment: No: Do not add to previous drawPerformed By: #### 60680, 52909, 58840 #### [facility] [address] [place] [address], USAPotassium [Moles/Vol]3.8 mmol/LNormal3.5-5.1The [facility] CampusComment on above:Order Comment: No: Do not add to previous drawPerformed By: #### 77021, 92228, 97023 #### [facility] [address] [place] [address], USASodium [Moles/Vol]134 mmol/AVhs075-717Fmw [facility] CampusComment on above:Order Comment: No: Do not add to previous drawPerformed By: #### 51673, 67522, 06726 #### [facility] [address] [place] [address], USAUrea nitrogen [Mass/Vol]15 mg/dLNormal7-25The [facility] CampusComment on above:Order Comment: No: Do not add to previous drawPerformed By: #### 98668, 70877, 14415 #### [facility] [address]CBC COMPLETE BLOOD COUNTon 09-44-9286Wnkpajdbdup distribution width (RBC) [Ratio]13.9 %Peayjz66.5-15.0The [facility] CampusComment on above:Order Comment: EvaluatePerformed By: #### 37477 ####[facility] Hematocrit (Bld) [Volume fraction]36.9 %Ouitah60.0-45.0The [facility] CampusComment on above:Order Comment: EvaluatePerformed By: #### 35475 ####[facility] Hemoglobin (Bld) [Mass/Vol]11.7 g/dLLow12.0-15.0The [facility] CampusComment on above:Order Comment: EvaluatePerformed By: #### 73455 ####[facility] MCH (RBC) [Entitic mass]29.8 ttChnenq26.0-33.0The [facility] CampusComment on above:Order Comment: EvaluatePerformed By: #### 75549 ####[facility] [place] [address], [facility] MCHC (RBC) [Mass/Vol]31.7 g/dLLow32.0-35.0The [facility] CampusComment on above:Order Comment: EvaluatePerformed By: #### 81565 ####[facility] [place] [address], [facility] MCV (RBC) [Entitic vol]94.1 bSLjhrpj79.0-98.0The [facility] CampusComment on above:Order Comment: EvaluatePerformed By: #### 47218 ####[facility] [place] [address], [facility] Nucleated RBC/100 WBC (Bld) [Ratio]0 %Normal0-0The [facility] CampusComment on above:Order Comment: EvaluatePerformed By: #### 49102 ####[facility] [facility] [place] [place] [address], [place] PLAT [id number] 10*3/rGHcpczk147-964Aup [facility] CampusComment on above:Order Comment: EvaluatePerformed By: #### 85107 ####[facility] [facility] [address], PRESBYTERIAN HOSPITALRBC (Bld) [#/Vol] 3.92 10*6/uLNormal3.80-5.00The [facility] CampusComment on above:Order Comment: EvaluatePerformed By: #### 91346 ####[facility] [facility] [place] [address], PRESBYTERIAN HOSPITALWBC (Bld) [#/Vol]7.94 10*3/uLNormal4.00-10.60The [facility] CampusComment on above: Order Comment: EvaluatePerformed By: #### 62714 ####[facility] [facility] [address], USALIVER BATTERYon 71-74-6602Yeqwdjk [Mass/Vol]3.2 g/dLLow3.5-5.7The [facility] CampusComment on above:Order Comment: No: Do not add to previous drawPerformed By: #### 91807, 56115, 72517 #### [facility] [address] [place] [address], USAALKALINE ESHCWF62 IU/ZCbxboq00-981Gbf [facility] CampusComment on above:Order Comment: No: Do not add to previous draw Performed By: #### 05515, 32271, 25961 #### [facility] [address] [place] [address], USAALT [Catalytic activity/Vol]8 U/LNormal7-52The [facility] CampusComment on above:Order Comment: No: Do not add to previous drawPerformed By: #### 92611, 03729, 53178 #### [facility] [address] [place] [address], USAAST [Catalytic activity/Vol]11 U/HLra43-30Lhz [facility] CampusComment on above:Order Comment: No: Do not add to previous drawPerformed By: #### 19722, 78780, 75726 #### [facility] [address] [place] [address], USABilirubin [Mass/Vol]0.5 mg/dLNormal0.3-1.0The [facility] CampusComment on above:Order Comment: No: Do not add to previous drawPerformed By: #### 81107, 67247, 52223 #### [facility] [address] [place] [address], USABilirubin.direct [Mass/Vol]0.1 mg/dLNormal0.0-0.2The [facility] CampusComment on above:Order Comment: No: Do not add to previous drawPerformed By: #### 68997, 69181, 35987 #### [facility] [address] [place] [address], USAProtein [Mass/Vol]6.1 g/dLNormal6.0-8.3The [facility] CampusComment on above:Order Comment: No: Do not add to previous drawPerformed By: #### 61437, 94403, 15234 #### [facility] [address] [place] [address], USAMAGNESIUM BLOODon 84-86-2140Qaraqdllq [Mass/Vol]1.4 mg/dL Low1.9-2.7The [facility]tering Health Main CampusComment on above:Order Comment: No: Do not add to previous drawPerformed By: #### 13831, 50021, 08582 #### [facility] [address] [place] [address], [facility]ITALPOC GLUCOSE LABon 00-03-4833Beoukhy [Mass/Vol]81 mg/dL Jatmrm89-406Jwy [facility] CampusComment on above:Performed By: #### 40921 #### [facility] [address] [facility] [address], [facility]*SARS-CoV-2 COVID-19on 69-64-5761Gppiycje ReportNormJoint Township District Memorial HospitalComment on above:Result Comment: Specimen: OROPHARYNGEAL Collected: 03/09/2020 09:30 Status: Final Last Updated: 03/09/2020 14:46 COVID-19 (Final) Not Detected The FangtekGX SARS-CoV-2 assay is a real-time (rt) reverse transcriptase (RT) polymerase chain reaction (PCR) test intended for the [employer] system. The SARS-CoV-2 primer and probe sets are designed to detect RNA from SARS-CoV-2 in a nasopharyngeal (WALL WASHER) or oropharyngeal (OP) swab from patients with signs and symptoms of infection who are suspected of COVID-19. Results are for the identification of SARS-CoV-2 RNA. The SARS-CoV-2 RNA is generally detectable in a nasopharyngeal or oropharyngeal swab during the acute phase of infection. The NeuroMetrixX SARS-CoV-2 assay is intended for use by qualified and trained clinical laboratory personnel specifically instructed and trained in the techniques of real-time PCR and in vitro diagnostic procedures. The BD Mecox LaneGX SARS-CoV-2 assay is only for use under the Food and Drug Administration Emergency Use Authorization. Testing is limited to laboratories certified under the Clinical Laboratory Improvement Amendments of 1988 (CLIA), 42 U.S.C. 263a, to perform high complexity tests.Performed By: #### [id number] #### [facility] [address] [facility] [place] [address], [facility]*MRSA/MSSA DNA NASALon 02-23-2020*MRSA/MSSA DNA NASAL Clinical Report: (D) Specimen: NASAL SWAB Collected: 02/23/2020 11:12 Status: Final Last Updated: 02/23/2020 15:43 MSSA DNA (Final) Negative MRSA DNA (Final) Methicillin Resistant Staphylococcus aureus DNA DetectedNoGood Samaritan HospitalComment on above:Performed By: #### [id number] ####[facility] [place] [address], PRESBYTERIAN HOSPITALAPTTon 02-23-2020 aPTT Coag (Bld) [Time]27.7 vHhlzvf80.0-35.0The [facility] CampusComment on above:Result Comment: ALL RESULTS MUST BE [...] BE USED FOR THIS PURPOSE.Performed By: #### [id number], 83408 #### [facility] [address] [place] [address], USABASIC METABOLIC PANELon 85-88-8288Zwzqvve [Mass/Vol]9.8 mg/dLNormal8.6-10.3The [facility] CampusComment on above: Performed By: #### 09113 #### [facility] [address] [place] [address], USAChloride [Moles/Vol]104 mmol/SVxfsov55-099Zrc [facility] CampusComment on above:Performed By: #### 83605 #### [facility] [address] [place] [place] [address], USACO2 [Moles/Vol]31 mmol/KMduzgr36-79Rye [facility] CampusComment on above:Performed By: #### 62772 #### [facility] [address] [place] [address], USACreatinine [Mass/Vol]0.62 mg/dLNormal0.60-1.20The [facility] CampusComment on above:Performed By: #### 98537 #### [facility] [address] [place] [address], USAGFR/1.73 sq M.predicted among blacks MDRD (S/P/Bld) [Vol rate/Area]mL/min/{1.73_m2}Normal>60The [facility] Comment on above:Performed By: #### 00024 #### [facility] [address] [place] [address], USAGFR/1.73 sq M.predicted among non-blacks MDRD (S/P/Bld) [Vol rate/Area]mL/min/{1.73_m2}Normal>60The [facility] Comment on above:Performed By: #### 11794 #### [facility] [address] [facility] [place] [address], USAGlucose [Mass/Vol]88 mg/rSRhegae46-458Qwl [facility] CampusComment on above:Performed By: #### 11046 #### [facility] [address] [facility] [facility] [place] [address], USAPotassium [Moles/Vol]3.9 mmol/LNormal3.5-5.1The [facility] CampusComment on above:Performed By: #### 52161 #### [facility] [address] [facility] [facility] [place] [address], USASodium [Moles/Vol]140 mmol/FRyvyvt681-702Mjo [facility] CampusComment on above:Performed By: #### 55846 #### [facility] [address] [facility] [facility] [place] [address], USAUrea nitrogen [Mass/Vol]21 mg/dLNormal7-25The [facility] CampusComment on above:Performed By: #### 12955 #### [facility] [address] [place] [address], [facility]OSPITALCBC W/DIFFon 55-51-1562SOW IMM GRANS0.0 10*3/uLNormal 0.0-0.2The [facility] CampusComment on above:Performed By: #### 73181 ####[facility] [facility] [facility] [address], PRESBYTERIAN HOSPITALABS NEUTROPHILS3.5 10*3/uLNormal1.6-7.6The [facility] CampusComment on above:Performed By: #### 70612 ####[facility] [facility] [place] [address], PRES[facility]TERIAN HOSPITALBasophils (Bld) [#/Vol] 0.0 10*3/uLNormal0.0-0.2The [facility] CampusComment on above: Performed By: #### 33525 ####[facility] [facility] [place] [address], PRESBYTERIAN HOSPITALBasophils/100 WBC (Bld)0.3 %Normal0.0-1.0The [facility] CampusComment on above:Performed By: #### 03714 ####[facility] [facility] [address], [facility] Eosinophils (Bld) [#/Vol]0.1 10*3/uLNormal0.0-0.5The [facility] CampusComment on above:Performed By: #### 80278 ####[facility] [facility] [place] [address], PRESBYTERIAN HOSPITALEosinophils/100 WBC (Bld) 1.9 %Normal0.0-6.0The [facility] CampusComment on above: Performed By: #### 32742 ####[facility] [place] [address], PRESBYTERIAN HOSPITALErythrocyte distribution width (RBC) [Ratio]14.1 % Nislgb95.5-15.0The [facility] CampusComment on above:Performed By: #### 21220 ####[facility] [place] [address], PRESBYTERIAN HOSPITALHematocrit (Bld) [Volume fraction]41.2 %Wjsgkg13.0-45.0 The [facility] CampusComment on above:Performed By: #### 07992 ####[facility] [place] [address], [facility] Hemoglobin (Bld) [Mass/Vol]12.9 g/bPHbrcct04.0-15.0The [facility] CampusComment on above:Performed By: #### 65809 ####[facility] [place] [address].[place] [address], PRESBY[facility]IAN HOSPITALIMMATURE GRANS0.3 %Normal 0.0-1.0The [facility] CampusComment on above:Performed By: #### 84711 ####[facility] [place] [address].[place] [address], PRESBYTERIAN HOSPITALLymphocytes (Bld) [#/Vol]2.7 10*3/uLNormal1.2-4.0The [facility] CampusComment on above:Performed By: #### 41983 ####[facility] [facility] [place] [address], PRESBYTERIAN HOSPITALLymphocytes/100 WBC (Bld)40.1 %Nuwmmp58.0-45.0The [facility] CampusComment on above:Performed By: #### 00301 ####[facility] [place] [address].[place] [address], PRESBYTERIAN HOSPITALMCH (RBC) [Entitic mass]29.3 pgNormal 27.0-33.0The [facility] CampusComment on above:Performed By: #### 83438 ####[facility] [place], [place] [address] [address], PRESBYTERIAN HOSPITALMCHC (RBC) [Mass/Vol]31.3 g/dLLow32.0-35.0The [facility] CampusComment on above:Performed By: #### 51846 ####[facility] [facility] [place] [address], PRES[facility]IAN HOSPITALMCV (RBC) [Entitic vol] 93.6 cJEwraed79.0-98.0The [facility] CampusComment on above: Performed By: #### 91806 ####[facility] [place] [address].[place] [address], [facility] HOSPITALMonocytes (Bld) [#/Vol]0.4 10*3/uLNormal0.1-1.0The [facility] CampusComment on above:Performed By: #### 17209 ####[address] [place] [address], [facility] MONOS5.3 %Normal5.0-12.0The [facility] CampusComment on above: Performed By: #### 83297 ####[address] [place] [address], PRESBYTERIAN HOSPITALNeutrophils/100 WBC (Bld)52.1 %Nlzmnb32.0-72.0The [facility] CampusComment on above:Performed By: #### 17054 ####[address] [place] [address], [facility] Nucleated RBC/100 WBC (Bld) [Ratio]0 %Normal0-0The [facility] CampusComment on above:Performed By: #### 80331 ####[address] [place] [address], PRESBYTERIAN HOSPITALPLAT MCC413 10*3/yYQibjyi642-498 The [facility] CampusComment on above:Performed By: #### 76358 ####[address] [place] [address], [facility] RBC (Bld) [#/Vol]4.40 10*6/uLNormal3.80-5.00The [facility] CampusComment on above:Performed By: #### 14436 ####[facility] [facility] [place] [address], PRESBYTERIAN HOSPITALWBC (Bld) [#/Vol]6.78 10*3/uL Normal4.00-10.60The [facility] CampusComment on above: Performed By: #### 56769 ####[facility] [facility] [place] [place] [address], USAPROTHROMBIN TIMEon 41-87-7605BMY Coag (PPP) [Relative time]1.10 {INR}Normal0.91-1.16The [facility] Main CampusComment on above:Result Comment: ACCCP RECOMMENDED INR FOR [...] OPTIMAL THERAPEUTIC RANGE. CHEST 1995;108:231S-246S.Performed By: #### 68099, 87923 #### [facility] [address] [facility] [address], USAPT Coag (PPP) [Time]14.3 rTsnati53.3-14.8The [facility] CampusComment on above:Result Comment: ALL RESULTS MUST BE INTERPRETED WITH RESPECT TO BLOOD DRAWING ARTIFACT OR DILUTION ERROR OF ANTICOAGULANT AT THE TIME OF SAMPLING.Performed By: #### 05863, 01240 #### [facility] [address] [facility] [place] [address], USAT TUBE CHOLANGIOGRAMon 01-16-2020T TUBE CHOLANGIOGRAM [facility] Department of Radiology [address] [place] [id number] Patient Name: 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 1970 [...] duodenum. Electronically signed: Nicole Jackson. Transcribed by: [id number], User Resident: Electronically Signed by: NICOLE JACKSON @ 01/16/2020 01:36 PMNormalThe [facility] Main CampusComment on above:Order Comment: EvaluateXR CERVICAL SPINE (2-3 VIEWS)on 78-75-2430HH CERVICAL SPINE (2-3 VIEWS)EXAMINATION: 3 XRAY VIEWS [...] Signed by: Anurag Mcqueen MD 12/28/18 Final resultNoalOhio State Health SystemExpected postoperative findings status post C4-5 ACDF.[employer]EM[facility] ORTHOPAEDICS & SPORTS MEDICINEMAILEEXAMINATION: 3 XRAY VIEWS OF THE CERVICAL SPINE [...] again demonstrated. The lung apices are clear. [employer] SPORTS MEDICINEAngelina Mhpn Incoming Radiant Results From [employer]acs - 12/28/2018 10:11 AM EST EXAMINATION: 3 [...] Expected postoperative findings status post C4-5 ACDF. [facility], ARBacterial susceptibility panel by Aleksandr 79-03-7864Grzhtldvk susceptibility panel by Minimum inhibitory concentration (JAVIER) [...] I Trimethoprim/Sulfamethoxazole <=20 S S=SUSCEPTIBLE I=INTERMEDIATE R=RESISTANT [facility] View Behavioral HealthComment on above:Performed By: #### 88498-3 #### [facility] [address] [place] [address] Lrjtdej, Urineon 89-61-8875Ftkqyxp, UrineORDER#: [id number] ORDERED BY: DR. SRIDHAR SOURCE: Urine Clean Catch COLLECTED: 11/27/18 08:42 ANTIBIOTICS AT MELISSA.: RECEIVED : 11/27/18 08:42 CALL doctor [id number] tel. , Culture, Urine INTERIM 11/28/18 08:05 >100,000 CFU/ml Escherichia coli Sensitivity to [facility] Chester Medical CenterComment on above: Performed By: #### CXURN #### [facility] [address] [place] [address] Trppywztzx, reflex to cultureon 24-94-2038Vxowwyscc Ql (U)Negative NormalAdventHealth ParkerComment on above:Order Comment: CALL doctor [id number] tel. ,Performed By: #### UAR #### [facility] [address] [place] [address] Faloyxw (U)TURBIDAbnormalClearMercy The Jewish HospitalComment on above:Order Comment: CALL doctor [id number] tel. ,Performed By: #### UAR #### [facility] [address] [place] [address] Yjaku (U)YellowNormalStraw/YellMerCommunity HospitalComment on above:Order Comment: CALL doctor [id number] tel. ,Performed By: #### UAR #### [facility] [address] [place] [address] Mdyabet Ql (U)NegativeNormalAdventHealth Parker Comment on above:Order Comment: CALL doctor [id number] tel. ,Performed By: #### UAR #### [facility] [address] [place] [address] Xnyokiaika Ql (U)[facility] Comment on above:Order Comment: CALL doctor [id number] tel. ,Performed By: #### UAR #### [facility] [address] [place] [address] Cvlaskc Ql (U)NegativeEastern Niagara Hospital, [facility] Comment on above:Order Comment: CALL doctor [id number] tel. ,Performed By: #### UAR #### [facility] [address] [place] [address] Jmhrhokju esterase Test strip Ql (U)ECU HealthComment on above:Order Comment: CALL doctor [id number] tel. , Performed By: #### UAR #### [facility] [address] [place] [address] Wlozkcq Ql (U)[facility] Comment on above:Order Comment: CALL doctor [id number] tel. ,Performed By: #### UAR #### [facility] [address] [place] [address] kK (U)8.0 [pH]Normal5.0-9.0[facility] CenterComment on above:Order Comment: CALL doctor L2725 tel. ,Performed By: #### UAR #### [facility] [address] [place] [address] Ggjndtu Ql (U)30 mg/dLAbMohawk Valley General Hospital Comment on above:Order Comment: CALL doctor L2725 tel. ,Performed By: #### UAR #### [facility] [address] [place] [address] Kuwuwefu gravity (U) [Rel density]1.971Mrfili4.005-1.03[facility] CenterComment on above:Order Comment: CALL doctor [id number] tel. , Performed By: #### UAR #### [facility] [address] [place] [address] Zbffe Reflexed to [facility] Comment on above:Order Comment: CALL doctor L2725 tel. ,Performed By: #### UAR #### [facility] [address] [place] [address] Qderrddktxmc Qn (U)1.0 {Marcela'U}/dLNormal< 2.0[facility] CenterComment on above:Order Comment: CALL doctor L2725 tel. ,Performed By: #### UAR #### [facility] [address] [place] [address] Iwitn Microscopicon 89-42-0239EMM (U) [#/Vol]46-67Piqopdyl5-6EuifeNorthern Colorado Rehabilitation HospitalComment on above:Order Comment: CALL doctor L2725 tel. , Performed By: #### UMIC #### [facility] [address] [place] [address] Lvoibjtd LM.HPF (Urine sed) [#/Area][facility] Springs Medical CenterComment on above:Order Comment: CALL doctor L2725 tel. ,Performed By: #### UMIC #### [facility] [address] [place] [address] Vjdwf Epithelial Cells Uvzq5-3Kylbpr4-4Yffjx[address] Comment on above:Order Comment: CALL doctor L2725 tel. ,Performed By: #### UMIC #### [facility] [address] [place] [address] Pwxwy Hyaline Casts Vufk01-36Sudrzt9-6Fhzps[address] [place] [address] Comment on above:Order Comment: CALL doctor L2725 tel. ,Performed By: #### UMIC #### [facility] [address] [place] [address] Iiwup WBC Auto>100Critically high0-[address] [place] [address] Comment on above:Order Comment: CALL doctor L2725 tel. ,Performed By: #### UMIC #### [facility] [address] [place] [address] Wrgwl Metab w/rfx MGon 09-06-2018(cont.)NormalOhio State Health SystemComment on above:Result Comment: Average GFR for 40-49 years old: 99 mL/min/1.73sq m Chronic Kidney Disease: <60 mL/min/1.73sq m Kidney failure: <15 mL/min/1.73sq m eGFR calculated using average adult body mass. Additional eGFR calculator available at: http://www.Nexthink/multiple_crcl_2012.htmPerformed By: #### BMPX, CDP ####[facility] [address] [place], [place] [phone] Director: Felipe Randall MDAnion gap [Moles/Vol]8 mmol/LLow9-17Ohio State Health SystemComment on above:Performed By: #### BMPX, CDP ####[facility] [address] [place], [place] [phone] Director: Felipe Randall MDCalcium [Mass/Vol]8.8 mg/dLNormal8.6-10.4[facility] State Health SystemComment on above:Performed By: #### BMPX, CDP ####[facility] [address] [place], [place] [phone] Director: Felipe Randall MDChloride [Moles/Vol]100 mmol/JZvornf70-579KkjgxOhio State Health SystemComment on above:Performed By: #### BMPX, CDP ####[facility] [address] [place], [place] [phone] Director: Felipe Randall MDCO2 [Moles/Vol]29 mmol/YYljwve13-05XgpreOhio State Health SystemComment on above:Performed By: #### BMPX, CDP ####[facility] [address] [place], [place] [phone] Director: Felipe Randall MDCreatinine [Mass/Vol]0.54 mg/dLNormal0.50-0.90Ohio State Health SystemComment on above:Performed By: #### BMPX, CDP ####[facility] [address] [place] [address] Lab Director: Felipe Randall MDGFR, Amer>60Normal>60MerMenlo Park Surgical HospitalComment on above:Performed By: #### BMPX, CDP ####[facility] [address] [place] [address] Lab Director: Felipe Randall MDGFR,non Amer>60 Normal>60Ohio State Health SystemComment on above:Performed By: #### BMPX, CDP ####[facility] [address] [place] [address] Lab Director: Felipe Randall MDGlucose [Mass/Vol]83 mg/xCOpealr48-08Ekofc [facility] Francisco General HospitalComment on above:Performed By: #### BMPX, CDP ####[facility] [address] [place] [address] Lab Director: Felipe Randall MDPotassium [Moles/Vol]3.7 mmol/LNormal3.7-5.3[facility] HospitalComment on above:Performed By: #### BMPX, CDP ####[facility] [address] [place] [address] Lab Director: Felipe Randall, MDSodium [Moles/Vol]137 mmol/VBhaecc136-934IkghnOhio State Health SystemComment on above:Performed By: #### BMPX, CDP ####[facility] [address] [place] [address] Lab Director: Felipe Randall MDUrea nitrogen [Mass/Vol]9 mg/dLNormal6-20MerMenlo Park Surgical HospitalComment on above:Performed By: #### BMPX, CDP ####[facility] [address] [place], [place] [phone] Director: SUHAS Nails/TOLU Salazar REPORTEDNormal9-20Ohio State Health SystemComment on above:Performed By: #### BMPX, CDP ####[facility] [address] [place], [place] [address])[phone] Director: MARGO Nailstaging:NOT REPORTEDNormalOhio State Health SystemComment on above:Performed By: #### BMPX, CDP ####[facility] [address] [place], [place] [address])[phone] Director: KRYSTAL Nails with Diffon 09-06-2018 Abs. Basophil0.03 k/uLNormal0.00-0.20[facility] State Health SystemComment on above:Performed By: #### BMPX, CDP ####[facility] [address] [place], [place] [address])[phone] Director: Maddison Nails.Imm.Granulocyte0.04 k/uLNormal0.00-0.30[facility] State Health SystemComment on above:Performed By: #### BMPX, CDP ####[facility] [address] [place], [place] [address])[phone] Director: Maddison Nails.Neutrophil (Seg)3.48 k/uL Normal1.50-8.10Ohio State Health SystemComment on above:Performed By: #### BMPX, CDP ####[facility] [address] [place], [place] [phone] Director: Melina Nailsphils/100 WBC (Bld)1 %Normal0-2MercHammond General HospitalComment on above:Performed By: #### BMPX, CDP ####[facility] [address] [place], [place] [address])[phone] Director: Felipe Randall MDEosinophils (Bld) [#/Vol]0.16 10*3/uLNormal0.00-0.44[facility] State Health SystemComment on above:Performed By: #### BMPX, CDP ####[facility] [address] [place] [address] [phone] Director: Felipe Randall MDEosinophils/100 WBC (Bld)3 %Normal1-4[facility] Comment on above:Performed By: #### BMPX, CDP ####[facility] [address] [place], [place] [address])[phone] Director: Felipe Randall MDErythrocyte distribution width (RBC) [Ratio]13.2 %Vzkdge74.8-14.4[facility] State Health SystemComment on above:Performed By: #### BMPX, CDP ####[facility] [address] [place], [place] [address])[phone] Director: Felipe Randall MD Hematocrit (Bld) [Volume fraction]35.5 %Low36.3-47.1MLucile [facility] Children's Hospital at StanfordComment on above:Performed By: #### BMPX, CDP ####[facility] [address] [place] [address] [phone] Director: Felipe Randall MD Hemoglobin (Bld) [Mass/Vol]11.6 g/dLLow11.9-15.1MLucile [facility] Comment on above:Performed By: #### BMPX, CDP ####[facility] [address] [place], [place] [phone] Director: Felipe Randall MDImmature granulocytes (Bld) [#/Vol]1 %Whuq3HxboxOhio State Health SystemComment on above:Performed By: #### BMPX, CDP ####[facility] [address] [place] [address] [phone] Director: Felipe Randall MDLymphocytes (Bld) [#/Vol] 2.34 10*3/uLNormal1.10-3.70Ohio State Health SystemComment on above: Performed By: #### BMPX, CDP ####[facility] [address] [place], [place] [phone] Director: Felipe Randall MDLymphocytes/100 WBC (Bld)36 % Zukzmr90-49TgtllOhio State Health SystemComment on above:Performed By: #### BMPX, CDP ####[facility] [address] [place], [place] [phone] Director: ERIC NailsCH (RBC) [Entitic mass]29.2 yxOeoqaq37.2-33.5Ohio State Health SystemComment on above:Performed By: #### BMPX, CDP ####[facility] [address] [place] [address] [phone] Director: ERIC NailsCHC (RBC) [Mass/Vol]32.7 g/tOIpgjll79.4-34.8[facility] State Health SystemComment on above:Performed By: #### BMPX, CDP ####[facility] [address] [place] [address] [phone] Director: ERIC NailsCV (RBC) [Entitic vol]89.4 rISmcelw62.6-102.9Ohio State Health SystemComment on above:Performed By: #### BMPX, CDP ####[facility] [address]zz[address] [place], [place] [phone] Director: ERIC Nailsonocytes (Bld) [#/Vol]0.37 10*3/uLNormal0.10-1.20[facility] State Health SystemComment on above:Performed By: #### BMPX, CDP ####[facility] [address] [place] [address] Lab Director: Felipe Randall MDMonocytes/100 WBC (Bld)6 %Normal3-12[facility] Comment on above:Performed By: #### BMPX, CDP ####[facility] [address]wl[address] [place] [address] Lab Director: Felipe Randall MDNeutrophil (Seg) 54 %Iibjgb01-23BhrirOhio State Health SystemComment on above:Performed By: #### BMPX, CDP ####[facility] [address] [place], [place] [phone] Director: JOSE Nails Automated0.0 per 100 WBCNormal0.0Ohio State Health SystemComment on above:Performed By: #### BMPX, CDP ####[facility] Dgynnlmutmvo[address] [place] [address] Lab Director: Kailey Nailstelet mean volume (Bld) [Entitic vol]10.5 fLNormal8.1-13.5 [facility] SystemComment on above:Performed By: #### BMPX, CDP ####[facility] Ctsfvpivwste1499 [place] [address] Lab Director: JENNIFER Nailslatelets (Bld) [#/Vol]220 10*3/kXGujfrh212-245BmpgbMenlo Park Surgical HospitalComment on above:Performed By: #### BMPX, CDP ####[facility] Ynuunaqikyuq7182 [place] [address] Lab Director: Felipe Randall MDRBC (Bld) [#/Vol]3.97 10*6/uLNormal3.95-5.11[facility] Health SystemComment on above:Performed By: #### BMPX, CDP ####[facility] Jnhokypyasxa9463 [place] [address] Lab Director: INGA NailsBC (Bld) [#/Vol]6.4 10*3/uLNormal3.5-11.3[facility] HospitalComment on above:Performed By: #### BMPX, CDP ####[facility] Hyaxlakvvkgq2183 [place], [place] [phone] Director: César Nails Diff PerformedNOT REPORTEDSumma HealthComment on above:Performed By: #### BMPX, CDP ####[facility] [address] [place] [address] [phone] Director: Olvin Nails (Bld) [#/Vol]NOT REPORTEDNoal [facility] SystemComment on above:Performed By: #### BMPX, CDP ####[facility] [address] [place] [address] [phone] Director: CELESTE Nails morphology finding Nom (Bld)NOT REPORTEDSumma HealthComment on above:Performed By: #### BMPX, CDP ####[facility] [address] [place] [address] [phone] Director: EVERETTE Nails MorphologyNOT REPORTEDSumma Health Comment on above:Performed By: #### BMPX, CDP ####[facility] [address] [place] [address] [phone] Director: Jeffy Nails 20-04-2938fSBN Coag (Bld) [Time]56.3 sHigh20.5-30.5[facility] Health SystemComment on above:Performed By: #### PTT ####[facility] [address] [place] [address] Lab Director: Corie Nails Coag (Bld) [Time]84.6 sHigh20.5-30.5[facility] Health SystemComment on above: Performed By: #### PTT ####[facility] Pzqyxgkknocq1778 [place] [address] Lab Director: Corie Nails Coag (Bld) [Time]78.1 s High20.5-30.5[facility] Health SystemComment on above:Performed By: #### PTT ####[facility] Wtftnumbsrcr5642 [place] [address] Lab Director: Charan Nails Metab w/rfx MGon 09-05-2018(cont.)NormalOhio State Health SystemComment on above:Result Comment: Average GFR for 40-49 years old: 99 mL/min/1.73sq m Chronic Kidney Disease: <60 mL/min/1.73sq m Kidney failure: <15 mL/min/1.73sq m eGFR calculated using average adult body mass. Additional eGFR calculator available at: http://www.VivaSmart.[employer] Systems/multiple_crcl_2012.htmPerformed By: #### SINAN, BMPX ####[facility] Fjxxchlsikkr4826 [place], [place] [phone] Director: Balwinder Nails gap [Moles/Vol]12 mmol/LNormal9-17[facility] Health SystemComment on above:Performed By: #### CDP, BMPX ####[facility] Drkhevzdotiu7967 [place] [address] Lab Director: Felipe Randall MDCalcium [Mass/Vol]8.7 mg/dLNormal8.6-10.4[facility] Health SystemComment on above:Performed By: #### CDP, BMPX ####[facility] Lpdgpmzaiojy1927 [place] [address] Lab Director: Felipe Randall MDChloride [Moles/Vol]104 mmol/LUvmonm35-101UpcnaOhio State Health SystemComment on above:Performed By: #### CDP, BMPX ####[facility] Ykzndqwteqmm3832 [place] [address] Lab Director: Felipe Randall MDCO2 [Moles/Vol]25 mmol/L Xlamvh28-22HabilOhio State Health SystemComment on above:Performed By: #### CDP, BMPX ####[facility] [address]ir[address] [place] [address] [phone] Director: GREGORY Nailsreatinine [Mass/Vol]0.47 mg/dLLow0.50-0.90[facility] Health SystemComment on above:Performed By: #### CDP, BMPX ####[facility] [address] [place] [address] [phone] Director: Felipe Randall MDGFR, Amer>60Normal>60[facility] Health SystemComment on above:Performed By: #### CDP, BMPX ####[facility] Gngofrbgpcjk[address] [place] [address] Lab Director: Felipe Randall MDGFR,non Amer>60 Normal>60[facility] Health SystemComment on above:Performed By: #### CDP, BMPX ####[facility] Fbhhflnvupep[address] [place] [address] [phone] Director: Felipe Randall MDGlucose [Mass/Vol]91 mg/sALkmjla62-18Qhcia [facility] General HospitalComment on above:Performed By: #### CDP, BMPX ####[facility] [address] [place] [address] [phone] Director: Felipe Randall MDPotassium [Moles/Vol]3.9 mmol/LNormal3.7-5.3MercHammond General HospitalComment on above:Performed By: #### CDP, BMPX ####[facility] Cgmqtevsiogu9325 [place], [place] [phone] Director: Felipe Randall MDSodium [Moles/Vol]141 mmol/FSkchcz934-250Jgzwy [facility]bury Medical CenterComment on above:Performed By: #### CDP, BMPX ####[facility] Qtwiibfwefxq4464 [place], [place] [phone] Director: Tena Nails nitrogen [Mass/Vol]8 mg/dLNormal6-20[facility] Health SystemComment on above:Performed By: #### CDP, BMPX ####[facility] [address] [place] [address] [phone] Director: GLEN NailsN/CRE RatioNOT REPORTEDNormal9-20[facility] Health SystemComment on above:Performed By: #### CDP, BMPX ####[facility] [address] [place] [address] [phone] Director: MARGO Nailstaging:NOT REPORTEDNormalOhio State Health SystemComment on above:Performed By: #### CDP, BMPX ####[facility] [address]xhnjuwx[address] [place] [address] [phone] Director: GREGORY Nails with Diffon 09-05-2018 Abs. Basophil0.03 k/uLNormal0.00-0.20[facility] Health SystemComment on above:Performed By: #### CDP, BMPX ####[facility] [address] [place] [address])[phone] Director: Maddison Nails.Imm.Granulocyte<0.03 Normal0.00-0.30[facility] Health SystemComment on above:Performed By: #### CDP, BMPX ####[facility] Wpbkmgsmupmt3291 [place], [place] [phone] Director: Maddison Nails.Neutrophil (Seg)3.98 k/uLNormal1.50-8.10 [facility] Health SystemComment on above:Performed By: #### CDP, BMPX ####[facility] [address] [place], [place] [address], [place] [address] Lab Director: Felipe Randall MDBasophils/100 WBC (Bld)0 %Normal0-2MLucile [facility] Pack[facility] Children's Hospital at StanfordComment on above:Performed By: #### CDP, BMPX ####[address] [phone] Director: Felipe Randall MD Eosinophils (Bld) [#/Vol]0.25 10*3/uLNormal0.00-0.44[facility] Health SystemComment on above:Performed By: #### CDP, BMPX ####[place], [place] [address])[phone] Director: Felipe Randall MD Eosinophils/100 WBC (Bld)3 %Normal1-4[facility] Health SystemComment on above:Performed By: #### SINAN, BMPX ####[place], [place] [address])[phone] Director: Felipe Randall MDErythrocyte distribution width (RBC) [Ratio]13.2 %Musnjk30.8-14.4[facility] Health SystemComment on above:Performed By: #### SINAN, BMPX ####[place], [place] [address])[phone] Director: Felipe Randall MDHematocrit (Bld) [Volume fraction]36.9 %Ptmtma46.3-47.1MLucile [facility] Children's Hospital at StanfordComment on above:Performed By: #### SINAN, BMPX ####[place], [place] [phone] Director: Felipe Randall MDHemoglobin (Bld) [Mass/Vol]11.3 g/dLLow11.9-15.1MLucile [facility] Children's Hospital at StanfordComment on above: Performed By: #### CDP, BMPX ####[place] [address] Lab Director: Felipe Randall MDImmature granulocytes (Bld) [#/Vol]0 %Gqryqh0GqvxuOhio State Health SystemComment on above:Performed By: #### CDP, BMPX ####[facility] [address] [place] [address] [phone] Director: Felipe Randall MDLymphocytes (Bld) [#/Vol]2.62 10*3/uLNormal 1.10-3.70[facility] Health SystemComment on above:Performed By: #### CDP, BMPX ####[facility] [address] [place], [place] [address])[phone] Director: Linda Nailsmphocytes/100 WBC (Bld)36 %Bojtms45-33SsirtOhio State Health SystemComment on above:Performed By: #### SINAN, BMPX ####[facility] [address] [place], [place] [address])[phone] Director: ERIC NailsCH (RBC) [Entitic mass]28.6 acVrlbxj63.2-33.5[facility] Health SystemComment on above:Performed By: #### CDP, BMPX ####[facility] [address] [place] [address] Lab Director: ERIC NailsCHC (RBC) [Mass/Vol]30.6 g/pNXkakvu79.4-34.8[facility] Health SystemComment on above:Performed By: #### CDP, BMPX ####[facility] Mmphudtazomj3311 [place] [address] Lab Director: ERIC NailsCV (RBC) [Entitic vol]93.4 dATafyjk60.6-102.9[facility] Health SystemComment on above:Performed By: #### CDP, BMPX ####[facility] [address] [place], [place] [phone] Director: ERIC Nailsonocytes (Bld) [#/Vol]0.45 10*3/uLNormal0.10-1.20[facility] Health SystemComment on above: Performed By: #### CDP, BMPX ####[facility] Alugipoesehc2038 [place], [place] [phone] Director: ERIC Nailsonocytes/100 WBC (Bld)6 % Normal3-12[facility] Health SystemComment on above:Performed By: #### CDP, BMPX ####[facility] Mzjohppdfzqh0528 [place], [place] [phone] Director: Yonis Nailsutrophil (Seg)55 %Wqtehe70-27OuqbyOhio State Health SystemComment on above:Performed By: #### CDP, BMPX ####[facility] Imwjgzzgofxj0426 [place], [place] [phone] Director: Felipe Randall MDNRBC Automated0.0 per 100 WBCNormal0.0[facility] Comment on above:Performed By: #### CDP, BMPX ####[facility] Rytiblgjaxhe[address]6 [place], [place] [phone] Director: JENNIFER Nailslatelet mean volume (Bld) [Entitic vol]10.4 fLNormal8.1-13.5[facility] Comment on above:Performed By: #### CDP, BMPX ####[facility] Xsrqoibwuqoe7563 [place], [place] [phone] Director: Felipe Randall MDPlatelets (Bld) [#/Vol]258 10*3/vUFtkpys978-216ScdqiOhio State Health SystemComment on above: Performed By: #### CDP, BMPX ####[facility] Isezoujhmngf9422 [place], [place] [phone] Director: Felipe Randall MDRBC (Bld) [#/Vol]3.95 10*6/uL Normal3.95-5.11[facility] Health SystemComment on above:Performed By: #### CDP, BMPX ####[facility] Vvvethyqgiuh8722 [place], [place] [phone] Director: EVERETTE Nails (Bld) [#/Vol]7.4 10*3/uLNormal3.5-11.3 [facility] SystemComment on above:Performed By: #### CDP, BMPX ####[facility] Foufpebqnvvq[address] [place], [place] [phone] Director: César Nails Diff PerformedNOT REPORTEDNormalOhio State Health SystemComment on above:Performed By: #### CDP, BMPX ####[facility] Dauospbtynuh5312 [place], [place] [phone] Director: Olvin Nails (Bld) [#/Vol]NOT REPORTEDNormalOhio State Health SystemComment on above:Performed By: #### CDP, BMPX ####[facility] Gycttuaxloig4997 [place], [place] [phone] Director: CELESTE Nails morphology finding Nom (Bld)NOT REPORTEDNormalOhio State Health SystemComment on above: Performed By: #### CDP, BMPX ####[facility] Frfhiozthiel5543 [place], [place] [phone] Director: EVERETTE Nails MorphologyNOT REPORTED NormalOhio State Health SystemComment on above:Performed By: #### CDP, BMPX ####[facility] Exixzpwjhrik9860 [place], [place] [phone] D irector: Jeffy Nails 22-85-0563rEOE Coag (Bld) [Time]53.8 sHigh 20.5-30.5[facility] Health SystemComment on above:Performed By: #### CDP, PTT, BMPX ####[facility] Ktygqojrgzdh[address]278 [place] [address] Lab Director: Corie Nailsg (Bld) [Time]66.8 s High20.5-30.5[facility] Health SystemComment on above:Performed By: #### TAYLOR PRINCE #### [place] [address] Software Quality Specialist: Charan Nails Metab w/rfx MGon 09-04-2018(cont.)Normal [facility] Health SystemComment on above:Result Comment: Average GFR for 40-49 years old: 99 mL/min/1.73sq m Chronic Kidney Disease: <60 mL/min/1.73sq m Kidney failure: <15 mL/min/1.73sq m eGFR calculated using average adult body mass. Additional eGFR calculator available at: http://www.Nexthink/multiple_crcl_2012.htmPerformed By: #### CDP, PTT, BMPX ####[facility] W[address]trxaoux[address]82 [place] [address] Lab Director: Balwinder Nails gap [Moles/Vol]11 mmol/LNormal9-17[facility] Health SystemComment on above:Performed By: #### CDP, PTT, BMPX ####[facility] Pphdyehbrfuc7816 [place] [address] Lab Director: Felipe Randall MDCalcium [Mass/Vol]8.5 mg/dLLow8.6-10.4[facility] Comment on above:Performed By: #### CDP, PTT, BMPX ####[facility] Ptbcljsxmoqt4006 [place] [address] Lab Director: Felipe Randall MDChloride [Moles/Vol]104 mmol/OMcfsds81-654RpgzyOhio State Health SystemComment on above:Performed By: #### CDP, PTT, BMPX ####[facility] Jtsptlinorsp2372 [place] [address] Lab Director: Felipe Randall MDCO2 [Moles/Vol] 29 mmol/EKmmrvs28-61OmzwrOhio State Health SystemComment on above:Performed By: #### CDP, PTT, BMPX ####[facility] Qwimnpxxejab0979 [place] [address] Lab Director: GREGORY Nailsreatinine [Mass/Vol]0.51 mg/dLNormal0.50-0.90[facility] SystemComment on above:Performed By: #### CDP, PTT, BMPX ####[facility] [address] [place] [address] [phone] Director: Felipe Randall MDGFR, Amer>60Normal>60 [facility] SystemComment on above:Performed By: #### CDP, PTT, BMPX ####[facility] [address] [place] [address] Lab Director: Felipe Randall MDGFR,non Amer>60Normal>60[facility] SystemComment on above:Performed By: #### CDP, PTT, BMPX ####[facility] [address] [place] [address] Lab Director: Felipe Randall MDGlucose [Mass/Vol]89 mg/vNInvrwz50-83KatnlLucile [facility]ter [facility] Comment on above:Performed By: #### CDP, PTT, BMPX ####[facility] Xyxzqucswihn2753 [place], [place] [phone] Director: Felipe Randall MDPotassium [Moles/Vol]3.6 mmol/LLow3.7-5.3MLucile Salter Pack[facility] Children's Hospital at StanfordComment on above:Performed By: #### CDP, PTT, BMPX ####[facility] Hjyzmvthoqho3287 [place], [place] [phone] Director: MARGO Nailsodium [Moles/Vol]144 mmol/HTnexio450-722ZnhrkOhio State Health SystemComment on above:Performed By: #### CDP, PTT, BMPX ####[facility] Uydrwewriiig2282 [place], [place] [phone] Director: Tena Nails nitrogen [Mass/Vol]8 mg/dLNormal6-20[facility] SystemComment on above: Performed By: #### CDP, PTT, BMPX ####[facility] Vsyvujagbdeb7055 [place], [place] [phone] Director: GLEN NailsN/CRE RatioNOT REPORTED Normal9-20[facility] SystemComment on above:Performed By: #### CDP, PTT, BMPX ####[facility] Mbgteoxgbbiv9482 [place], [place] [phone] Director: MARGO Nailstaging:NOT REPORTEDNormal [facility] SystemComment on above:Performed By: #### CDP, PTT, BMPX ####[facility] Ryntisgisrqr4741 [place], [place] [phone] Director: KRYSTAL Nails with Diffon 47-77-4054Hzu. Basophil0.03 k/uL Normal0.00-0.20[facility] SystemComment on above:Performed By: ###TAYLOR BURNS #### [facility] [address] [place] [address] Software Quality Specialist: Maddison Nails.Imm.Granulocyte0.04 k/uLNormal0.00-0.30[facility] Health SystemComment on above:Performed By: #### TAYLOR PRINCE #### [facility] [address] [place] [address] Software Quality Specialist: Maddison Nails.Neutrophil (Seg)5.49 k/uLNormal1.50-8.10 [facility] SystemComment on above:Performed By: #### TAYLOR PRINCE #### [facility] [address] [place] [address] Software Quality Specialist: Felipe Randall MDBasophils/100 WBC (Bld)0 %Normal0-2MLucile Salter Pack[facility] Children's Hospital at StanfordComment on above:Performed By: #### TAYLOR PRINCE #### [facility] [address] [place] [address] Software Quality Specialist: Felipe Randall MDEosinophils (Bld) [#/Vol]0.27 10*3/uLNormal 0.00-0.44[facility] Health SystemComment on above:Performed By: #### TAYLOR PRINCE #### [address] [address] Software Quality Specialist: COLLETTE Nailsosinophils/100 WBC (Bld)3 %Normal1-4[facility] Health SystemComment on above:Performed By: #### TAYLOR PRINCE #### [address] [address] Software Quality Specialist: Felipe Randall MDErythrocyte distribution width (RBC) [Ratio]13.2 %Pabcpe90.8-14.4[facility] Health SystemComment on above:Performed By: #### TAYLOR PRINCE #### [address] [address] Software Quality Specialist: Felipe Randall MDHematocrit (Bld) [Volume fraction]38.6 %Normal 36.3-47.1MLucile Salter Pack[facility] Children's Hospital at StanfordComment on above:Performed By: #### TAYLOR PRINCE #### [address] [address] Software Quality Specialist: Felipe Randall MDHemoglobin (Bld) [Mass/Vol]12.3 g/dLNormal 11.9-15.1MLucile [facility] Children's Hospital at StanfordComment on above:Performed By: #### TAYLOR PRINCE #### [facility] [address] [place] [address] Software Quality Specialist: Felipe Randall MDImmature granulocytes (Bld) [#/Vol]1 %Dzzs6PeamuOhio State Health SystemComment on above:Performed By: #### TAYLOR PRINCE #### [facility] [address] [place] [address] Software Quality Specialist: Felipe Randall MDLymphocytes (Bld) [#/Vol]2.08 10*3/uLNormal 1.10-3.70[facility] Health SystemComment on above:Performed By: #### TAYLOR PRINCE #### [address] [address] Software Quality Specialist: Linda Nailsmphocytes/100 WBC (Bld)25 %Txcnkm85-84WtaxvOhio State Health SystemComment on above:Performed By: #### TAYLOR PRINCE #### [facility] [address] [place] [address] Software Quality Specialist: ERIC NailsCH (RBC) [Entitic mass]28.9 qqXguwqm60.2-33.5 [facility] SystemComment on above:Performed By: #### TAYLOR PRINCE #### [facility] [address] [place] [address] Software Quality Specialist: ERIC NailsCHC (RBC) [Mass/Vol]31.9 g/pKVhwlvd36.4-34.8 [facility] SystemComment on above:Performed By: #### TAYLOR PRINCE #### [facility] [address] [place] [address] Software Quality Specialist: ERIC NailsCV (RBC) [Entitic vol]90.6 oOBfnyke20.6-102.9 [facility] SystemComment on above:Performed By: #### TAYLOR PRINCE #### [address] [address] Software Quality Specialist: Felipe Randall MDMonocytes (Bld) [#/Vol]0.42 10*3/uLNormal 0.10-1.20[facility] SystemComment on above:Performed By: #### TAYLOR PRINCE #### [address] [address] Software Quality Specialist: ERIC Nailsonocytes/100 WBC (Bld)5 %Normal3-12[facility] SystemComment on above:Performed By: #### TAYLOR PRINCE #### [place] [address] Software Quality Specialist: Felipe Randall MDNeutrophil (Seg)66 %Eszy24-81RdcsfOhio State Health SystemComment on above:Performed By: ###TAYLOR BURNS #### [address] [address] Software Quality Specialist: Felipe Randall MDNRBC Automated0.0 per 100 WBCNormal0.0[facility] Health SystemComment on above:Performed By: #### TAYLOR PRINCE #### [address] [address] Software Quality Specialist: Felipe Randall MDPlatelet mean volume (Bld) [Entitic vol]10.5 fL Normal8.1-13.5[facility] SystemComment on above:Performed By: #### NEO PRINCEO #### [address] [address] Software Quality Specialist: JENNIFER Nailslatelets (Bld) [#/Vol]243 10*3/vEAcemfp387-340 [facility] SystemComment on above:Performed By: #### NEO PRINCEO #### [facility] [address] [place] [address] Software Quality Specialist: CELESTE Nails (Bld) [#/Vol]4.26 10*6/uLNormal3.95-5.11 [facility] SystemComment on above:Performed By: #### NIKI UMICAO #### [facility] [address] [place] [address] Software Quality Specialist: EVERETTE Nails (Bld) [#/Vol]8.3 10*3/uLNormal3.5-11.3MLucile Sal[facility] Children's Hospital at StanfordComment on above:Performed By: #### ENID PRINCEICAO #### [facility] [address] [place] [address] Software Quality Specialist: César Nails Diff PerformedNOT REPORTEDNormalMerMenlo Park Surgical HospitalComment on above:Performed By: #### NIKI UMICAO #### [facility] [address] [place] [address] Software Quality Specialist: Kailey Nailstelets (Bld) [#/Vol]NOT REPORTEDNormalMercy San Francisco General HospitalComment on above:Performed By: #### NIKI UMICAO #### [facility] [address] [place] [address] Software Quality Specialist: CELESTE Nails morphology finding Nom (Bld)NOT REPORTED NormalOhio State Health SystemComment on above:Performed By: #### NIKI UMICAO #### [facility] [address] [place] [address] Software Quality Specialist: EVERETTE Nails MorphologyNOT REPORTEDrmalMerMenlo Park Surgical HospitalComment on above:Performed By: #### TAYLOR PRINCE #### [facility] [place] [address] Software Quality Specialist: Jeffy Nails 62-74-9053cGLG Coag (Bld) [Time]50.3 s High20.5-30.5[facility] SystemComment on above:Performed By: #### TAYLOR PRINCE #### [facility] [address] [place] [address] Software Quality Specialist: Felipe Randall MDaPTT Coag (Bld) [Time]62.8 sHigh20.5-30.5[facility] SystemComment on above:Performed By: #### TAYLOR PRINCE #### [facility] [address] [place] [address] Software Quality Specialist: Vinicio NailsT Coag (Bld) [Time]21.9 xUjqkor23.5-30.5[facility] SystemComment on above:Performed By: #### TAYLOR PRINCE #### [facility] [address] [place] [address] Software Quality Specialist: Felipe Randall MDaPTT Coag (Bld) [Time]22.8 fMwbnwv60.5-30.5[facility] SystemComment on above:Performed By: #### TAYLOR PRINCE #### [facility] [address] [place] [address] Software Quality Specialist: Charan Nails Metab w/rfx MGon 89-88-4023Eeiomjjwh [Moles/Vol]3.4 mmol/LLow3.7-5.3[facility] HospitalComment on above: Performed By: #### TAYLOR PRINCE #### [facility] [address] [place] [address] Software Quality Specialist: Balwinder Nails gap [Moles/Vol]12 mmol/LNormal9-17[facility] SystemComment on above:Performed By: #### NIKI UMICAO #### [facility] [address] [place] [address] Software Quality Specialist: Felipe Randall MDCalcium [Mass/Vol]8.8 mg/dLNormal8.6-10.4[facility] SystemComment on above:Performed By: #### NIKI UMICAO #### [facility] [address] [place] [address] Software Quality Specialist: Felipe Randall MDChloride [Moles/Vol]101 mmol/UGefncl63-377UszsdOhio State Health SystemComment on above:Performed By: #### NIKI UMICAO #### [facility] [address] [place] [address] Software Quality Specialist: Felipe Randall MDCO2 [Moles/Vol]27 mmol/AQkmgol11-89IwodmOhio State Health SystemComment on above:Performed By: #### NIKI UMICAO #### [facility] [address] [place] [address] Software Quality Specialist: GREGORY Nailsreatinine [Mass/Vol]0.64 mg/dLNormal0.50-0.90 [facility] SystemComment on above:Performed By: #### ENID PRINCEICAO #### [facility] [address] [place] [address] Software Quality Specialist: Felipe Randall MDGFR, Amer>60Normal>60[facility] SystemComment on above:Performed By: #### NIKI UMICAO #### [facility] [address] [place] [address] Software Quality Specialist: Felipe Ranadll MDGFR,non Amer>60Normal>60[facility] SystemComment on above:Performed By: #### NIKI UMICAO #### [facility] [address] [place] [address] Software Quality Specialist: Felipe Randall MDGlucose [Mass/Vol]89 mg/qYDvpxri26-74OmmtyLucile Salter Packard [facility] Hospital at StanfordComment on above:Performed By: #### UA, UMICAO #### [facility] [address] [place] [address] Software Quality Specialist: MARGO Nailsodium [Moles/Vol]140 mmol/SVlvefw747-501KwphrOhio State Health SystemComment on above:Performed By: #### NIKI, UMICAO #### [facility] [address] [place] [address] Software Quality Specialist: Felipe Randall MDUrea nitrogen [Mass/Vol]11 mg/dLNormal6-20[facility] State Health SystemComment on above:Performed By: #### NIKI UMICAO #### [facility] [address] [place] [address] Software Quality Specialist: Felipe Randall MD(cont.)[facility] Comment on above:Result Comment: Average GFR for 40-49 years old: 99 mL/min/1.73sq m Chronic Kidney Disease: <60 mL/min/1.73sq m Kidney failure: <15 mL/min/1.73sq m eGFR calculated using average adult body mass. Additional eGFR calculator available at: http://www.VivaSmart.[employer]/multiple_crcl_2012.htmPerformed By: #### NIKI, UMICAO #### [facility] [address] [place] [address]70 Software Quality Specialist: SUHAS Nails/TOLU Salazar REPORTEDNormal9-20[facility] State Health SystemComment on above:Performed By: #### UA, UMICAO #### [facility] [address] [place] [address] 7[address]83 Software Quality Specialist: MARGO Nailstaging:NOT REPORTEDNormalOhio State Health SystemComment on above:Performed By: #### UA, UMICAO #### [facility] [address] [place] [address] Software Quality Specialist: Charan Nails Metabolic Profon 27-57-5209Lvxkf gap [Moles/Vol]10 mmol/LNormal9-17[facility] State Health SystemComment on above: Performed By: #### NIKI UMICAO #### [facility] [address] [place] [address]2443 Software Quality Specialist: Felipe Randall MDCalcium [Mass/Vol]8.7 mg/dLNormal8.6-10.4[facility] State Health SystemComment on above:Performed By: #### NIKI UMICAO #### [facility] [address] [place] [address]858 Software Quality Specialist: Felipe Randall MDChloride [Moles/Vol]100 mmol/RMirmsd77-418TueboOhio State Health SystemComment on above:Performed By: #### NIKI UMICAO #### [facility] [address] [place] [address] Software Quality Specialist: Felipe Randall MDCO2 [Moles/Vol]26 mmol/ROyyusv17-67MszxrOhio State Health SystemComment on above:Performed By: #### NIKI UMICAO #### [facility] [address] [place] [address]04 Software Quality Specialist: GREGORY Nailsreatinine [Mass/Vol]0.57 mg/dLNormal0.50-0.90 [facility] Health SystemComment on above:Performed By: #### NIKI, UMICAO #### [facility] [address] [place] [address] 8[address]12 Software Quality Specialist: Felipe Randall MDGFR, Amer>60Normal>60[facility] State Health SystemComment on above:Performed By: #### UA, UMICAO #### [facility] [address] [place] [address] Software Quality Specialist: Felipe Randall MDGFR,non Amer>60Normal>60[facility] State Health SystemComment on above:Performed By: #### UA, UMICAO #### [facility] [address] [place] [address]12 Software Quality Specialist: Felipe Randall MDGlucose [Mass/Vol]102 mg/uAUzja32-41UahajLucile Salter Packard Children's Hospital at StanfordComment on above:Performed By: #### UA, UMICAO #### [facility] [address] [place] [address]956 Software Quality Specialist: JENNIFER Nailsotassium [Moles/Vol]3.5 mmol/LLow3.7-5.3Mmercy health [facility]rys[facility] hospitaly [facility] Francisco General HospitalComment on above:Performed By: #### NIKI, UMICAO #### [facility] [address] [place] [address] 01617 Software Quality Specialist: MARGO Nailsodium [Moles/Vol]136 mmol/LHfdyas408-627QywwsOhio State Health SystemComment on above:Performed By: #### UA, UMICAO #### [facility] [address] [place] [address] 32513 Software Quality Specialist: Felipe Randall MDUrea nitrogen [Mass/Vol]11 mg/dLNormal6-20[facility] Health SystemComment on above:Performed By: #### UA, UMICAO #### [facility] [address] [place] [address] 5[address]23 Software Quality Specialist: Felipe Randall MD(cont.)[facility] Comment on above:Result Comment: Average GFR for 40-49 years old: 99 mL/min/1.73sq m Chronic Kidney Disease: <60 mL/min/1.73sq m Kidney failure: <15 mL/min/1.73sq m eGFR calculated using average adult body mass. Additional eGFR calculator available at: http://www.VivaSmart.com/multiple_crcl_2012.htmPerformed By: #### TAYLOR PRINCE #### [facility] [address] [place] [address] Software Quality Specialist: SUHAS Nails/TOLU DiamondOT REPORTEDNormal9-20[facility] State Health SystemComment on above:Performed By: #### TAYLOR PRINCE #### [facility] [address] [place] [address] 70665 Software Quality Specialist: MARGO Nailstaging:NOT REPORTEDNormalOhio State Health SystemComment on above:Performed By: #### TAYLOR PRINCE #### [facility] [address] [place] [address] 16168 Software Quality Specialist: Mac Nails Natri. Peptideon 57-19-8452Jobfjvuublr peptide B (Bld) [Mass/Vol]2284 pg/mLHigh<300[facility] Comment on above:Result Comment: Pro-BNP results cannot be compared to BNP results.Performed By: #### CDP, BNP, TROPI, BMP, PT, PTT #### [facility] [address] [place] [address] 68576 Software Quality Specialist: Felipe Randall MDNatnamanuretic peptide B (Bld) [Mass/Vol]Pro-BNP Reference Range:NormalOhio State Health SystemComment on above:Result Comment: Rule Out: <300 [place] Zone: Age <50 300-450 Age 50-75 300-900 Age >75 300-1800 Usually represents mild to moderate HF but other cardiopulmonary causes cannot be ruled out. Rule In: Age <50 >450 Age 50-75 >900 Age >75 >1800Performed By: #### CDP, BNP, TROPI, BMP, PT, PTT #### [facility] [address] [address] Software Quality Specialist: GREGORY Nailsyadiel 36-88-3978Tljldlyvepm distribution width (RBC) [Ratio]13.4 %Noqrya85.8-14.4[facility] State Health SystemComment on above:Performed By: #### TAYLOR PRINCE #### [address] [address] Software Quality Specialist: Felipe Randall MDHematocrit (Bld) [Volume fraction]36.7 %Normal 36.3-47.1MLucile Salter Packard Children's Hospital at StanfordComment on above:Performed By: #### TAYLOR PRINCE #### [address] [address] Software Quality Specialist: Felipe Randall MDHemoglobin (Bld) [Mass/Vol]11.7 g/dLLow11.9-15.1 [facility] Health SystemComment on above:Performed By: #### TAYLOR PRINCE #### [address] [address] Software Quality Specialist: ERIC NailsCH (RBC) [Entitic mass]28.4 ihCydhoo24.2-33.5 [facility] Health SystemComment on above:Performed By: #### TAYLOR PRINCE #### [address] [address] Software Quality Specialist: ERIC NailsCHC (RBC) [Mass/Vol]31.9 g/gXMinqrs34.4-34.8 [facility] Health SystemComment on above:Performed By: #### NIKI UMICAO #### [address] [address] Software Quality Specialist: ERIC NailsCV (RBC) [Entitic vol]89.1 sNGmqgis10.6-102.9 [facility] SystemComment on above:Performed By: #### ENID PRINCEICAO #### [address] [address] Software Quality Specialist: JOSE Nails Automated0.0 per 100 WBCNormal0.0[facility] State Health SystemComment on above:Performed By: #### TAYLOR PRINCE #### [facility] [address] [place] [address]83 Software Quality Specialist: Kailey Nailstepamela mean volume (Bld) [Entitic vol]10.9 fL Normal8.1-13.5[facility] State Health SystemComment on above:Performed By: #### TAYLOR PRINCE #### [facility] [address] [place] [address] 8[address]80 Software Quality Specialist: Kailey Nailstelets (Bld) [#/Vol]232 10*3/wTIskhbo067-426 [facility] SystemComment on above:Performed By: #### TAYLOR PRINCE #### [facility] [address] [place] [address] 16044 Software Quality Specialist: CELESTE Nails (Bld) [#/Vol]4.12 10*6/uLNormal3.95-5.11 [facility] Health SystemComment on above:Performed By: #### TAYLOR PRINCE #### [facility] [address] [place] [address] Software Quality Specialist: EVERETTE Nails (Bld) [#/Vol]8.9 10*3/uLNormal3.5-11.3MLucile Salter Packard [facility] Hospital at StanfordComment on above:Performed By: #### ENID PRINCEICAO #### [facility] [address] [place] [address] 85807 Software Quality Specialist: KRYSTAL Nails with Diffon 56-58-9285Cyt. Basophil0.04 k/uL Normal0.00-0.20[facility] Health SystemComment on above:Performed By: #### TAYLOR PRINCE #### [facility] [address] [place] [address] 10985 Software Quality Specialist: MDAbs. JesuImm.Granulocyte0.03 k/uLNormal0.00-0.30[facility] Health SystemComment on above:Performed By: #### ATYLOR PRINCE #### [address] [address] Software Quality Specialist: Maddison Nails.Neutrophil (Seg)5.69 k/uLNormal1.50-8.10 [facility] SystemComment on above:Performed By: #### ENID PRINCEICAO #### [address] [address] Software Quality Specialist: Felipe Randall MDBasophils/100 WBC (Bld)0 %Normal0-2MLucile Salter Packard Children's Hospital at StanfordComment on above:Performed By: #### TAYLOR PRINCE #### [address] [address] Software Quality Specialist: Felipe Randall MDEosinophils (Bld) [#/Vol]0.15 10*3/uLNormal 0.00-0.44[facility] Health SystemComment on above:Performed By: #### ENID PRINCEICAKamran #### [address] [address] Software Quality Specialist: Felipe Randall MDEosinophils/100 WBC (Bld)2 %Normal1-4[facility] State Health SystemComment on above:Performed By: #### NIKI UMICAO #### [address] [address] Software Quality Specialist: Felipe Randall MDErythrocyte distribution width (RBC) [Ratio]13.4 %Pvzryr61.8-14.4[facility] Health SystemComment on above:Performed By: #### NIKI UMICAO #### [address] [address] Software Quality Specialist: Felipe Randall MDHematocrit (Bld) [Volume fraction]37.7 %Normal 36.3-47.1MLucile Salter Packard Children's Hospital at StanfordComment on above:Performed By: #### NIKI, UMICAO #### [address] [address] Software Quality Specialist: Felipe Randall MDHemoglobin (Bld) [Mass/Vol]11.6 g/dLLow11.9-15.1 [facility] SystemComment on above:Performed By: #### NIKI UMICAO #### [place] [address] Software Quality Specialist: Felipe Randall MDImmature granulocytes (Bld) [#/Vol]0 %Normal0 [facility] SystemComment on above:Performed By: #### ENID PRINCEICAO #### [place] [address] Software Quality Specialist: Felipe Randall MDLymphocytes (Bld) [#/Vol]3.06 10*3/uLNormal 1.10-3.70[facility] SystemComment on above:Performed By: #### NIKI UMICAO #### [address] [address] Software Quality Specialist: Linda Nailsmphocytes/100 WBC (Bld)32 %Kibjlq83-82ZmqykOhio State Health SystemComment on above:Performed By: #### NIKI, UMICAO #### [address] [address] Software Quality Specialist: ERIC NailsCH (RBC) [Entitic mass]29.1 kiOcyren03.2-33.5 [facility] SystemComment on above:Performed By: #### NIKI UMICAO #### [address] [place] [address] Software Quality Specialist: ERIC NailsCHC (RBC) [Mass/Vol]30.8 g/sSNsvqgk43.4-34.8 [facility] SystemComment on above:Performed By: #### NIKI UMICAO #### [facility] [address] [place] [address]658 Software Quality Specialist: ERIC NailsCV (RBC) [Entitic vol]94.7 dWFyllaz77.6-102.9 [facility] SystemComment on above:Performed By: #### NIKI UMICAO #### [facility] [address] [place] [address]32 Software Quality Specialist: ERIC Nailsonocytes (Bld) [#/Vol]0.56 10*3/uLNormal 0.10-1.20[facility] SystemComment on above:Performed By: #### NIKI UMICAO #### [facility] [address] [place] [address]67 Software Quality Specialist: ERIC Nailsonocytes/100 WBC (Bld)6 %Normal3-12[facility] SystemComment on above:Performed By: #### NIKI UMICAO #### [facility] [address] [place] [address]605 Software Quality Specialist: Felipe Randall MDNeutrophil (Seg)60 %Qvxaxr75-55AydwmOhio State Health SystemComment on above:Performed By: #### NIKI, UMICAO #### [facility] [address] [place] [address]64 Software Quality Specialist: Felipe Randall MDNRBC Automated0.0 per 100 WBCNormal0.0[facility] SystemComment on above:Performed By: #### NIKI, UMICAO #### [facility] [address] [place] [address]79 Software Quality Specialist: Jennifer Nails mean volume (Bld) [Entitic vol]10.7 fL Normal8.1-13.5[facility] Health SystemComment on above:Performed By: #### TAYLOR PRINCE #### [facility] [address] [place] [address]66 Software Quality Specialist: Olvin Nails (Bld) [#/Vol]283 10*3/yIDeioyy118-471 [facility] SystemComment on above:Performed By: #### NIKI, UMICAKamran #### [facility] [address] [place] [address] Software Quality Specialist: BARRETT NailsBC (Bld) [#/Vol]3.98 10*6/uLNormal3.95-5.11 [facility] SystemComment on above:Performed By: #### TAYLOR PRINCE #### [facility] [address] [place] [address] Software Quality Specialist: EVERETTE Nails (Bld) [#/Vol]9.5 10*3/uLNormal3.5-11.3MLucile Salter Packard [facility]'s Hospital at StanfordComment on above:Performed By: #### NIKI UMJOSETTE #### [facility] [address] [place] [address] Software Quality Specialist: César Nails PerformedNOT REPORTEDSumma HealthComment on above:Performed By: #### NIKI UMICAO #### [facility] [address] [place] [address]24 Software Quality Specialist: Olvin Nails (Bld) [#/Vol]NOT REPORTEDSumma HealthComment on above:Performed By: #### NIKI, UMICAO #### [facility] [address] [place] [address]31 Software Quality Specialist: CELESTE Nails morphology finding Nom (Bld)NOT REPORTED NormalOhio State Health SystemComment on above:Performed By: #### TAYLOR PRINCE #### [address] [address] Software Quality Specialist: EVERETTE Nails MorphologyNOT REPORTEDNormalOhio State Health SystemComment on above:Performed By: #### TAYLOR PRINCE #### [address] [address] Software Quality Specialist: Maddison Nails. Basophil0.03 k/uLNormal0.00-0.20[facility] Health SystemComment on above:Performed By: #### CDP, BNP, TROPI, BMP, PT, PTT #### [address] [address] Software Quality Specialist: MDAbs. JesuImm.Granulocyte0.03 k/uLNormal0.00-0.30[facility] SystemComment on above:Performed By: #### CDP, BNP, TROPI, BMP, PT, PTT #### [address] [address] Software Quality Specialist: Maddison Nails.Neutrophil (Seg)5.21 k/uLNormal1.50-8.10 [facility] SystemComment on above:Performed By: #### CDP, BNP, TROPI, BMP, PT, PTT #### [address] [address] Software Quality Specialist: Felipe Randall MDBasophils/100 WBC (Bld)0 %Normal0-2MLucile Salter Packard Children's Hospital at StanfordComment on above:Performed By: #### CDP, BNP, TROPI, BMP, PT, PTT #### [address] [address] Software Quality Specialist: Felipe Madoff, MDEosinophils (Bld) [#/Vol]0.13 10*3/uLNormal 0.00-0.44[facility] SystemComment on above:Performed By: #### CDP, BNP, TROPI, BMP, PT, PTT #### [place] [address] Software Quality Specialist: Felipe Randall MDEosinophils/100 WBC (Bld)1 %Normal1-4[facility] Health SystemComment on above:Performed By: #### CDP, BNP, TROPI, BMP, PT, PTT #### [place] [address] Software Quality Specialist: Felipe Randall MDErythrocyte distribution width (RBC) [Ratio]13.5 %Scztmg38.8-14.4[facility] Health SystemComment on above:Performed By: #### CDP, BNP, TROPI, BMP, PT, PTT #### [place] [address] Software Quality Specialist: Felipe Randall MDHematocrit (Bld) [Volume fraction]35.2 %Low 36.3-47.1MLucile [facility] Pack[facility]'s Hospital at StanfordComment on above:Performed By: #### CDP, BNP, TROPI, BMP, PT, PTT #### [place] [address] Software Quality Specialist: Felipe Randall MDHemoglobin (Bld) [Mass/Vol]11.1 g/dLLow11.9-15.1 [facility] SystemComment on above:Performed By: #### CDP, BNP, TROPI, BMP, PT, PTT #### [place] [address] Software Quality Specialist: Felipe Randall MDImmature granulocytes (Bld) [#/Vol]0 %Normal0 [facility] SystemComment on above:Performed By: #### CDP, BNP, TROPI, BMP, PT, PTT #### [facility] [address] [place] [address] Software Quality Specialist: Linda Nailsmphocytes (Bld) [#/Vol]3.12 10*3/uLNormal 1.10-3.70[facility] SystemComment on above:Performed By: #### CDP, BNP, TROPI, BMP, PT, PTT #### [facility] [address] [place] [address] Software Quality Specialist: Linda Nailsmphocytes/100 WBC (Bld)34 %Cubgsg04-13BuaipOhio State Health SystemComment on above:Performed By: #### CDP, BNP, TROPI, BMP, PT, PTT #### [facility] [address] [place] [address] Software Quality Specialist: DEBBIE Nails (RBC) [Entitic mass]29.1 tuIcnjin88.2-33.5 [facility] SystemComment on above:Performed By: #### CDP, BNP, TROPI, BMP, PT, PTT #### [facility] [address] [place] [address] Software Quality Specialist: DEBBIE NailsC (RBC) [Mass/Vol]31.5 g/dQWtjynz48.4-34.8 [facility] SystemComment on above:Performed By: #### CDP, BNP, TROPI, BMP, PT, PTT #### [facility] [address] [place] [address] Software Quality Specialist: ERIC NailsCV (RBC) [Entitic vol]92.1 vEBegpwl75.6-102.9 [facility] SystemComment on above:Performed By: #### CDP, BNP, TROPI, BMP, PT, PTT #### [facility] [address] [place] [address] Software Quality Specialist: ERIC Nailsonocytes (Bld) [#/Vol]0.62 10*3/uLNormal 0.10-1.20[facility] SystemComment on above:Performed By: #### CDP, BNP, TROPI, BMP, PT, PTT #### [address] [address] Software Quality Specialist: ERIC Nailsonocytes/100 WBC (Bld)7 %Normal3-12[facility] SystemComment on above:Performed By: #### CDP, BNP, TROPI, BMP, PT, PTT #### [facility] [address] [place] [address] Software Quality Specialist: Kesha Nailsophil (Seg)57 %Syoqzp72-18TwencOhio State Health SystemComment on above:Performed By: #### CDP, BNP, TROPI, BMP, PT, PTT #### [facility] [address] [place] [address] Software Quality Specialist: Felipe Randall MDNRBC Automated0.0 per 100 WBCNormal0.0[facility] SystemComment on above:Performed By: #### CDP, BNP, TROPI, BMP, PT, PTT #### [facility] [address] [place] [address] Software Quality Specialist: Jennifer Nails mean volume (Bld) [Entitic vol]10.4 fL Normal8.1-13.5[facility] SystemComment on above:Performed By: #### CDP, BNP, TROPI, BMP, PT, PTT #### [facility] [address] [place] [address] Software Quality Specialist: Kailey Nailstevanesa (Bld) [#/Vol]278 10*3/gTZxxnwr964-767 [facility] SystemComment on above:Performed By: #### CDP, BNP, TROPI, BMP, PT, PTT #### [facility] [address] [place] [address] Software Quality Specialist: CELESTE Nails (Bld) [#/Vol]3.82 10*6/uLLow3.95-5.11[facility] HospitalComment on above:Performed By: #### CDP, BNP, TROPI, BMP, PT, PTT #### [facility] [address] [place] [address] Software Quality Specialist: EVERETTE Nails (Bld) [#/Vol]9.1 10*3/uLNormal3.5-11.3[facility] HospitalComment on above:Performed By: #### CDP, BNP, TROPI, BMP, PT, PTT #### [facility] [address] [place] [address] Software Quality Specialist: César Nails Diff PerformedNOT REPORTEDNormalOhio State Health SystemComment on above:Performed By: #### CDP, BNP, TROPI, BMP, PT, PTT #### [facility] [address] [place] [address] Software Quality Specialist: Olvin Nails (Bld) [#/Vol]NOT REPORTEDNormalOhio State Health SystemComment on above:Performed By: #### CDP, BNP, TROPI, BMP, PT, PTT #### [facility] [address] [place] [address] Software Quality Specialist: CELESTE Nails morphology finding Nom (Bld)NOT REPORTED NormalOhio State Health SystemComment on above:Performed By: #### CDP, BNP, TROPI, BMP, PT, PTT #### [facility] [address] [place] [address] Software Quality Specialist: EVERETTE Nails MorphologyNOT REPORTEDrmalOhio State Health SystemComment on above:Performed By: #### CDP, BNP, TROPI, BMP, PT, PTT #### [facility] [address] [place] [address] Software Quality Specialist: Mehrdad Nailsctic Acidon 36-81-2841Icsyigq [Moles/Vol]1.0 mmol/LNormal0.7-2.1MLucile [facility]'s Hospital at StanfordComment on above:Performed By: ###TAYLOR BURNS #### [facility] [address] [place] [address] Software Quality Specialist: Felipe Randall MDLactate [Moles/Vol]NOT REPORTEDNormalOhio State Health SystemComment on above:Performed By: ###TAYLOR BURNS #### [facility] [address] [place] [address] Software Quality Specialist: Felipe Randall MDLiver Profileon 01-85-3103Oyofutk [Mass/Vol]2.9 g/dLLow3.5-5.2MLucile [facility] Hospital at StanfordComment on above:Performed By: ###TAYLOR BURNS #### [place] [address] Software Quality Specialist: Felipe Randall MDAlbumin/Globulin [Mass ratio]0.7 {ratio}Low 1.0-2.5[facility] SystemComment on above:Performed By: ###TAYLOR BURNS #### [facility] [address] [place] [address] Software Quality Specialist: Felipe Randall MDAlkaline Phos50 U/UCdokhz62-540EpbvwOhio State Health SystemComment on above:Performed By: ###TAYLOR BURNS #### [facility] [address] [place] [address] Software Quality Specialist: Felipe Randall MDALT [Catalytic activity/Vol]6 U/LNormal5-33[facility] SystemComment on above:Performed By: #### TAYLOR PRINCE #### [facility] [address] [place] [address] Software Quality Specialist: Felipe Randall MDAST [Catalytic activity/Vol]16 U/LNormal<32[facility] SystemComment on above:Performed By: #### INKI UMICAO #### [address] [address] Software Quality Specialist: Felipe Randall MDBilirubin Ql (U)0.32 mg/dLNormal0.3-1.2MLucile [facility] Hospital at StanfordComment on above:Performed By: #### TAYLOR PRINCE #### [address] [address] Software Quality Specialist: Felipe Randall MDBilirubin, Indirect0.22 mg/dLNormal0.00-1.00 [facility] SystemComment on above:Performed By: #### TAYLOR PRINCE #### [address] [address] Software Quality Specialist: Óscar Nailsirubin.direct [Mass/Vol]0.10 mg/dLNormal<0.31 [facility] SystemComment on above:Performed By: #### ENID PRINCEICAO #### [address] [address] Software Quality Specialist: JENNIFER Nailsrotein [Mass/Vol]7.0 g/dLNormal6.4-8.3MLucile [facility] Hospital at StanfordComment on above:Performed By: #### NIKI UMICAO #### [address] [address] Software Quality Specialist: Felipe Randall MDGlobulin (S) [Mass/Vol]NOT REPORTEDNormal1.5-3.8 [facility] SystemComment on above:Performed By: #### NIKI UMICAO #### [facility] [address] [place] [address] Software Quality Specialist: JOSE NailsA, DNA, Nasalon 10-31-8185HFNY, DNA, Nasal POSITIVE: MRSA DNA detected by nucleic acid amplification.AbnormalNMRSAAOhio State Health SystemComment on above:Result Comment: Results should be used as an adjunct to nosocomial control efforts to identify patients needing enhanced precautions. The test is not intended to identify patients with staphylococcal infections. Results should not be used to guide or monitor treatment for MRSA infections. Performed By: #### TAYLOR PRINCE #### [facility] [address] [place] [address] Software Quality Specialist: Rachael Nails Description.NASAL SWABNormalOhio State Health SystemComment on above:Performed By: #### TAYLOR PRINCE #### [facility] [address] [place] [address] Software Quality Specialist: Tala Nailsgnesiumon 52-40-2107Vzcqqufcw [Mass/Vol]1.5 mg/dLLow1.6-2.6[facility] HospitalComment on above:Performed By: #### TAYLOR PRINCE #### [facility] [address] [place] [address] Software Quality Specialist: Mireya Nails 39-58-3637HMS Coag (PPP) [Relative time]1.0 {INR}NormalOhio State Health SystemComment on above:Result Comment: Therapeutic Range: Moderate Anticoagulant Intensity: INR = 2.0-3.0 High Anticoagulant Intensity: INR = 2.5-3.5Performed By: #### NIKI, UMICAO #### [facility] [address] [place] [address] Software Quality Specialist: DANIELA Nails Coag (PPP) [Time]10.6 sNormal9.0-12.0[facility] State Health SystemComment on above:Performed By: #### TAYLOR PRINCE #### [address] [address] Software Quality Specialist: GANESH Nails Coag (PPP) [Relative time]1.0 {INR}Normal [facility] Health SystemComment on above:Result Comment: Therapeutic Range: Moderate Anticoagulant Intensity: INR = 2.0-3.0 High Anticoagulant Intensity: INR = 2.5-3.5Performed By: #### TAYLOR PRINCE #### [address] [address] Software Quality Specialist: DANIELA Nails Coag (PPP) [Time]10.8 sNormal9.0-12.0[facility] State Health SystemComment on above:Performed By: #### TAYLOR PRINCE #### [address] [address] Software Quality Specialist: HALINA Nails w/reflex to FT4on 02-18-4348NAB Qn1.30 m[IU]/LNormal0.30-5.00[facility] State Health SystemComment on above:Performed By: ###TAYLOR BURNS #### [address] [address] Software Quality Specialist: Naty Nails 07-21-9888Jqswhqjw I.cardiac [Mass/Vol]96 ng/LCritically high0-14[facility] State Health SystemComment on above:Result Comment: High Sensitivity Troponin values cannot be compared with other Troponin methodologies. Patients with high levels of Biotin oral intake (i.e >5mg/day) may have falsely decreased Troponin levels. Samples collected within 8 hours of biotin intake may require additional information for diagnosis. Previous Alert Value ReportedPerformed By: #### TAYLOR PRINCE #### [facility] [address] [place] [address] Software Quality Specialist: Becky Nails I.cardiac [Mass/Vol]NOT REPORTEDNormal [facility] Health SystemComment on above:Performed By: #### UA UMICAO #### [facility] [address] [place] [address] Software Quality Specialist: Becky Nails I.cardiac [Mass/Vol]133 ng/LCritically high0-14[facility] State Health SystemComment on above:Result Comment: High Sensitivity Troponin values cannot be compared with other Troponin methodologies. Patients with high levels of Biotin oral intake (i.e >5mg/day) may have falsely decreased Troponin levels. Samples collected within 8 hours of biotin intake may require additional information for diagnosis. Previous Alert Value ReportedPerformed By: #### NIKI UMICAO #### [facility] [address] [place] [address] Software Quality Specialist: Becky Nails I.cardiac [Mass/Vol]NOT REPORTEDNormal <0.03[facility] State Health SystemComment on above:Performed By: #### ENID PRINCEICAO #### [facility] [address] [place] [address] Software Quality Specialist: Becky Nails I.cardiac [Mass/Vol]132 ng/LCritically high0-14[facility] State Health SystemComment on above:Result Comment: High Sensitivity Troponin values cannot be compared with other Troponin methodologies. Patients with high levels of Biotin oral intake (i.e >5mg/day) may have falsely decreased Troponin levels. Samples collected within 8 hours of biotin intake may require additional information for diagnosis.Performed By: #### CDP, BNP, TROPI, BMP, PT, PTT #### [facility] [address] [place] [address] Software Quality Specialist: Becky Nails I.cardiac [Mass/Vol]NOT REPORTEDNormal [facility] Health SystemComment on above:Performed By: #### CDP, BNP, TROPI, BMP, PT, PTT #### [facility] [address] [place] [address] Software Quality Specialist: Meghana Nails D 25 OHon 71-01-6694Htcltqm D 25 OH34.6 ng/tCEllutd27.0-100.0[facility] State Health SystemComment on above:Result Comment: Reference Range: Vitamin D status Range Deficiency <20 ng/mL Mild Deficiency 20-30 ng/mL Sufficiency 30-100 ng/mL Toxicity >100 ng/mLPerformed By: #### TAYLOR PRINCE #### [address] [address] Software Quality Specialist: GREGORY Nailsult,Urineon 63-65-7773Ekgo,UrineSpecimen Description .URINE Special Requests 1ST INSERTION Culture AEROCOCCUS URINAE >221636 CFU/ML There are no CLSI interpretive guidelines for routine susceptibility testing. Aerococcus species are reported to be susceptible to penicillin. A. urinae has also been described as susceptible to amoxicillin and nitrofurantoin (for treatment of urinary tract infections only). Report Status FINAL 08/31/2018NormalOhio State Health SystemComment on above:Performed By: #### UR #### [address] [address] Software Quality Specialist: GREGORY NailsReynolds County General [facility] 49-53-8874Olxrbuqbjhp distribution width (RBC) [Ratio]13.4 %Ckwufj77.8-14.4[facility] State Health SystemComment on above:Performed By: #### CBC #### [address] [address] Software Quality Specialist: Felipe Randall MDHematocrit (Bld) [Volume fraction]39.8 %Normal 36.3-47.1MLucile [facility]'s Hospital at StanfordComment on above:Performed By: #### CBC #### [facility] [address] [place] [address] Software Quality Specialist: Felipe Randall MDHemoglobin (Bld) [Mass/Vol]11.6 g/dLLow11.9-15.1 [facility] Health SystemComment on above:Performed By: #### CBC #### [address] [address] Software Quality Specialist: ERIC NailsCH (RBC) [Entitic mass]28.9 tePgrfuv20.2-33.5 [facility] Health SystemComment on above:Performed By: #### CBC #### [address] [address] Software Quality Specialist: ERIC NailsCHC (RBC) [Mass/Vol]29.1 g/aMIqxold65.4-34.8 [facility] Health SystemComment on above:Performed By: #### CBC #### [address] [address] Software Quality Specialist: ERIC NailsCV (RBC) [Entitic vol]99.0 kFPfwits26.6-102.9 [facility] Health SystemComment on above:Performed By: #### CBC #### [address] [address] Software Quality Specialist: JOSE Nails Automated0.0 per 100 WBCNormal0.0[facility] State Health SystemComment on above:Performed By: #### CBC #### [address] [address] Software Quality Specialist: Jennifer Nails mean volume (Bld) [Entitic vol]11.2 fL Normal8.1-13.5[facility] State Health SystemComment on above:Performed By: #### CBC #### [address] [address] Software Quality Specialist: Olvin Nails (Bld) [#/Vol]239 10*3/yHBbwwno069-486 [facility] Health SystemComment on above:Performed By: #### CBC #### [address] [id number] Software Quality Specialist: BARRETT Nails (Bld) [#/Vol]4.02 10*6/uLNormal3.95-5.11 [facility] Health SystemComment on above:Performed By: #### CBC #### [facility] [address] [place], [place] [address] Software Quality Specialist: Felipe Randall MDW (d) [#/Vol]10.1 10*3/uLNormal3.5-11.3MLucile [facility]'s Hospital at StanfordComment on above:Performed By: #### CBC #### [facility] [address], [place] [id number] Software Quality Specialist: FREDERIC NailsR CERVICAL SPINE (2-3 VIEWS)on 47-25-6907NS CERVICAL SPINE (2-3 VIEWS)EXAMINATION: TWO XRAY VIEWS [...] Signed by: Sanaz Mullins MD 08/31/18 Final resultNormalMerMenlo Park Surgical HospitalXR CERVICAL SPINE (2-3 VIEWS) EXAMINATION: 2 XRAY [...] Signed by: Pepe Mckeon MD 08/31/18 Final resultSumma HealthType + Screenon 45-44-2719Qvue + ScreenSample Expiration 09/02/2018 Arm Band Number BE [id number] ABO/Rh(D) AB POSITIVE Antibody Screen NEGATIVESumma HealthComment on above: Performed By: #### TYS #### [facility] [address] [place] [address] Software Quality Specialist: Felipe Randall MDUrinalysis, Routineon 97-93-8584Ptgxjilbvun Acid,UrNegativeNoTriHealth McCullough-Hyde Memorial HospitalComment on above: Performed By: #### UA, UMICAO #### [facility] [address] [place] [address] Software Quality Specialist: Felipe Randall MDBilirubin, SemiQt,UrNegativeSelect Medical TriHealth Rehabilitation HospitalComment on above:Performed By: #### UA, UMICAO #### [facility] [address] [place] [address] Software Quality Specialist: GREGORY Nailsolor (U)YELLOWNormalYELMerMenlo Park Surgical HospitalComment on above:Performed By: #### UA, UMICAO #### [facility] [address] [place] [address] Software Quality Specialist: Felipe aRndall MDGlucose Ql (U)NegativeNormalNEGOhio State Health SystemComment on above:Performed By: #### UA, UMICAO #### [facility] [address] [place] [address] Software Quality Specialist: Felipe Randall MDHemoglobin, UrSMALLAbnormalNEGOhio State Health SystemComment on above:Performed By: #### UA, UMICAO #### [facility] [address] [place] [address] Software Quality Specialist: Felipe Randall MDLeukocyte esterase Test strip Ql (U)LARGE AbnormalNEGOhio State Health SystemComment on above:Performed By: ###TAYLOR BURNS #### [facility] [address] [place] [address] Software Quality Specialist: Helen Nailstrite,UrNegativeNormalNEGOhio State Health SystemComment on above:Performed By: #### TAYLOR PRINCE #### [facility] [address] [place] [address] Software Quality Specialist: Jennifer NailsH (U)6.0 [pH]Normal5.0-8.0[facility] State Health SystemComment on above:Performed By: #### TAYLOR PRINCE #### [facility] [address] [place] [address] Software Quality Specialist: JENNIFER Nailsrotein Ql (U)TRACEAbnormalNEGOhio State Health SystemComment on above:Performed By: ###TAYLOR BURNS #### [facility] [address] [place] [address] Software Quality Specialist: MARGO Nailspecific gravity (U) [Rel density]1.008Normal 1.005-1.030[facility] State Health SystemComment on above:Performed By: ###TAYLOR BURNS #### [facility] [address] [place] [address] Software Quality Specialist: Felipe Randall MDTurbidityTURBIDAbnormalCLEARMercHammond General HospitalComment on above:Performed By: #### TAYLOR PRINCE #### [facility] [address] [place] [address] Software Quality Specialist: Felipe Randall MDUrobilinogen,UrNormalNormalNORMOhio State Health SystemComment on above:Performed By: #### UA, UMICAO #### [facility] [address] [place] [address] Software Quality Specialist: GREGORY NailsommentNOT REPORTEDNormalOhio State Health SystemComment on above:Performed By: #### UA, UMICAO #### [facility] [address] [place] [address] Software Quality Specialist: Felipe Randall MDUrinalysis,Microon 08-30-2018-----NormalOhio State Health SystemComment on above:Performed By: #### UA, UMICAO #### [facility] [address] [place] [address] Software Quality Specialist: Felipe Randall MDBacteria LM.HPF (Urine sed) [#/Area]MANYAbnormal NONEOhio State Health SystemComment on above:Performed By: #### UA, UMICAO #### [facility] [address] [place] [address] Software Quality Specialist: GREGORY Nailsasts LM.LPF (Urine sed) [#/Area]2 TO 5 HYALINE Normal0-8[facility] State Health SystemComment on above:Result Comment: Reference range defined for non-centrifuged specimen.Performed By: #### UA, UMICAO #### [facility] [address] [place] [address] Software Quality Specialist: Felipe Randall MDEpithelial cells LM.HPF (Urine sed) [#/Area]0 TO 4Jdbkqk7-2HbpxtOhio State Health SystemComment on above:Performed By: #### UA, UMICAO #### [facility] [address] [place] [address] Software Quality Specialist: Felipe Randall MDRBC (U) [#/Vol]5 TO 94Lifvsl9-2RhhmoOhio State Health SystemComment on above:Result Comment: Reference range defined for non- centrifuged specimen.Performed By: #### UA, UMICAO #### [facility] [address] [place] [address] Software Quality Specialist: Felipe Randall MDWBC (U) [#/Vol]TOO NUMEROUS TO COUNTNormal0-5 [facility] Health SystemComment on above:Performed By: #### NIKI, UMICAO #### [facility] [address] [place] [address] Software Quality Specialist: Nicholas Nails sediment LM Ql (Urine sed)NOT REPORTED NormalNONEMercy San Francisco General HospitalComment on above:Performed By: #### NIKI, UMICAO #### [facility] [address] [place] [address] Software Quality Specialist: Lavinia Nails LM Nom (Urine sed)NOT REPORTEDNormal NONEMerMenlo Park Surgical HospitalComment on above:Performed By: #### NIKI, UMICAO #### [facility] [address] [place] [address] Software Quality Specialist: Felipe Randall MDEpithelial, RenalNOT ZVMBDUYLZfzpmd3KkbpuOhio State Health SystemComment on above:Performed By: #### NIKI UMICAO #### [facility] [address] [place] [address] Software Quality Specialist: ERIC Nailsucus StrandsNOT REPORTEDNormalNONEMeVencor HospitalComment on above:Performed By: #### NIKI, UMICAO #### [facility] [address] [place] [address] Software Quality Specialist: Felipe Randall MDOther ObservationsNOT REPORTEDNormalNREQOhio State Health SystemComment on above:Performed By: #### NIKI, UMICAO #### [facility] [address] [place] [address] Software Quality Specialist: Felipe Randall MDTrichomonasNOT REPORTEDNormalNONEMeVencor HospitalComment on above:Performed By: #### NIKI UMICAO #### [facility] [address] [place] [address] Software Quality Specialist: Srinath Nails LM Ql (Urine sed)NOT REPORTEDNormalOhioHealth Van Wert HospitalComment on above:Performed By: #### UA, UMICAO #### [facility] [address] [place] [address] Software Quality Specialist: SKYE Nails CERVICAL SPINE WO CONTRASTon 84-80-4024OLG CERVICAL SPINE WO CONTRASTEXAMINATION: MRI OF THE [...] by: Ilsa Finch MD 07/14/18 Final resultNormalMercy [facility] Vital Signs Date TimeVital SignValuePerforming QtkswmhoiYsdfqhha30-77-8248 13:19-0500Body ulnbwa325.96 cmBrett Kuns DO Work Phone: [facility]11-05-2025 13:19-0500 Body mass index (BMI) [Ratio]50.2 kg/o5Pufbu Kuns DO Work Phone: [facility]11-05-2025 13:19-0500 Body jfbpraoflwr928.4 [degF]Lon Kuns DO Work Phone: [facility]11-05-2025 13:19-0500 Body zvyhql968.35 kgBrett Kuns DO Work Phone: [facility]11-05-2025 13:19-0500 Diastolic blood mm[Hg]Lno Kuns DO Work Phone: [facility]11-05-2025 13:19-0500 Heart rate61 /minBrett Kuns DO Work Phone: [phone]11-05-2025 13:19-0500 SaO2% (BldA) [Mass fraction]94 %Lon Kuns DO Work Phone: [phone]11-05-2025 13:19-0500 Systolic blood tkhzevvu072 mm[Hg]Lon Kuns DO Work Phone: [facility]08-28-2024 15:02-0400 Body uokixn061.96 cmDO Lon Kuns Work Phone: [facility]08-28-2024 15:02-0400 Body mass index (BMI) [Ratio]45.1 kg/m2DO Lon Kuns Work Phone: [facility]08-28-2024 15:02-0400 Body spblyn105.66 kgDO Lon Kuns Work Phone: [facility]08-28-2024 15:02-0400 Diastolic blood ivqlijym88 mm[Hg]DO Lon Kuns Work Phone: [facility]08-28-2024 15:02-0400 Heart rate92 /minDO Lon Kuns Work Phone: [phone] [place], [place] [address]1608-28-2024 15:02-0400 Respiratory rate18 /minDO Lon Kuns Work Phone: [address] [place], [place] [address]08-28-2024 15:02-0400 SaO2% (BldA) [Mass fraction]95 %DO Lon Kuns Work Phone: [facility]08-28-2024 15:02-0400 Systolic blood bdlvtyva771 mm[Hg]DO Lon Kuns Work Phone: [facility]06-25-2024 07:48-0400 Body aofebw007.96 cmDO Lon Kuns Work Phone: [facility]06-25-2024 07:42-0400 Body mass index (BMI) [Ratio]45.3 kg/m2DO Lon Kuns Work Phone: [facility]06-25-2024 07:42-0400 Body utxrty201.11 kgDO Lon Kuns Work Phone: [facility]06-25-2024 07:42-0400 Diastolic blood bgyassiw38 mm[Hg]DO Lon Kuns Work Phone: [facility]06-25-2024 07:42-0400 Heart rate81 /Milton Ibrahim Work Phone: [facility]06-25-2024 07:42-0400 Respiratory rate18 /Milton Ibrahim Work Phone: [facility]06-25-2024 07:42-0400 SaO2% (BldA) [Mass fraction]94 %DO Lon Ibrahim Work Phone: [facility]06-25-2024 07:42-0400 Systolic blood yyuphcft115 mm[Hg]DO Lon Ibrahim Work Phone: [facility]06-05-2024 15:29-0400 Body mass index (BMI) [Ratio]44.94 kg/c3Uivsp Dena GRAMAJON.BLACK TOP ROLLER Work Phone: [facility]06-05-2024 15:29-0400Body zewone805.76 kgTerri Dena AUTOMOTIVE FINANCE MANAGER.[employer]ACK [employer] ROLLER Work Phone: [facility]06-05-2024 15:29-0400Diastolic blood ugfjckri65 mm[Hg]Heather Dena GRAMAJON.BLACK TOP ROLLER Work Phone: [facility]06-05-2024 15:29-0400Heart rate88 /min Heatherrizwana Fernandes APRN.BLACK TOP ROLLER Work Phone: [facility]06-05-2024 15:29-0400Systolic blood xcaniakx072 mm[Hg]Heather Dena AUTOMOTIVE FINANCE MANAGER.BLACK TOP ROLLER Work Phone: [facility]04-26-2024 13:09-0400Body mass index (BMI) [Ratio]44.94 kg/b4Afglw Dena AUTOMOTIVE FINANCE MANAGER.BLACK TOP ROLLER Work Phone: [facility]04-26-2024 13:09-0400Body uelhsh337.76 kgTerri Trona AUTOMOTIVE FINANCE MANAGER.BLACK TOP ROLLER Work Phone: [facility]04-26-2024 13:09-0400Diastolic blood ostyzagc198 mm[Hg]Heathre Fernandes AUTOMOTIVE FINANCE MANAGER.BLACK TOP ROLLER Work Phone: [facility]04-26-2024 13:09-0400Heart rate75 /min Heather Dena AUTOMOTIVE FINANCE MANAGER.BLACK TOP ROLLER Work Phone: [facility]04-26-2024 13:09-0400Systolic blood mm[Hg]Heatherrizwana Fernandes AUTOMOTIVE FINANCE MANAGER.BLACK TOP ROLLER Work Phone: [facility]03-11-2024 14:07-0400Body .76 kgApurva Campa MD Work Phone: [facility]03-11-2024 14:07-0400Diastolic blood nqwmppux31 mm[Hg]Apurva Campa MD Work Phone: [facility]03-11-2024 14:07-0400Heart rate80 /min Apurva Campa MD Work Phone: [facility]03-11-2024 14:07-0400Systolic blood mm[Hg]Apurva Campa MD Work Phone: [facility]01-09-2024 10:00-0500Body qgyblp732.96 cmLon Ibrahim Other [employer] Other [id number] 10:00-0500Body mass index (BMI) [Ratio] 45.32 kg/y5ZsdfuLon Ibrahim Other [employer] Other 01-09-2024 10:00-0500Body fpqdyi865.12 kgLon Ibrahim Other [employer] Other 01-09-2024 10:00-0500Diastolic blood bxohslgd52 mm[Hg] Lon Ibrahim Other [employer] Other 01-09-2024 10:00-0500Respiratory rate18 /minRosanaalondra Ibrahim Other [employer] Other 01-09-2024 10:00-8250SrF1% (BldA) [Mass fraction]93 % Lon Ibrahim Other [employer] Other 01-09-2024 10:00-0500Systolic blood fewfiysp289 mm[Hg] Lon Ibrahim Other [employer] Other 12-05-2023 17:40-0500Body fwytui642.96 cmAmber Jeremias Other [employer] Other 12-05-2023 17:40-0500Body mass index (BMI) [Ratio] 38.51 kg/x8VkhtlKelly Mcdowell Other [employer] Other 12-05-2023 17:40-0500Body rfvqxbyhwdg07.9 [degF]Kelly Mcdowell Other [employer] Other 12-05-2023 17:40-0500Body gaqdxz743.08 kgKelly Mcdowell Other [employer] Other 12-05-2023 17:40-0500Respiratory rate18 /minKelly Mcdowell Other [employer] Other 12-05-2023 17:40-2814UnV0% (BldA) [Mass fraction]93 % Kelly Mcdowell Other [employer] Other 11-13-2023 11:56-0500Body wvyrsz271 cmMoises Willis MD Work Phone: [place] [address]-13-2023 11:56-0500Body rxyilw819.08 kgMoises Willis MD Work Phone: [place] [address]-13-2023 11:56-0500Diastolic blood vgalyjfw89 mm[Hg]Moises Willis MD Work Phone: [facility]11-13-2023 11:56-0500Heart rate87 /min Moises Willis MD Work Phone: [facility]11-13-2023 11:56-0500Respiratory rate 16 /Melida Willis MD Work Phone: [place] [address]-13-2023 11:56-4591RbG8% (BldA) [Mass fraction]98 %Moises Willis MD Work Phone: [place] [address]-13-2023 11:56-0500Systolic blood yojeugie983 mm[Hg]Moises Willis MD Work Phone: [facility]08-14-2023 09:26-0400Body ykckia473 cm Moises Willis MD Work Phone: [facility]08-14-2023 09:26-0400Body jqnihj036.08 kgMoises Willis MD Work Phone: [facility]08-14-2023 09:26-0400Diastolic blood sdglurco09 mm[Hg]Moises Willis MD Work Phone: [place] [address]-14-2023 09:26-0400Heart rate77 /min Moises Willis MD Work Phone: [place] [address]-14-2023 09:26-0400Respiratory rate 18 /Melida Willis MD Work Phone: [place] [address]-14-2023 09:26-4940LoV4% (BldA) [Mass fraction]96 %Moises Willis MD Work Phone: [facility]08-14-2023 09:26-0400Systolic blood mtowydrb621 mm[Hg]Moises Willis MD Work Phone: [facility]02-16-2023 11:15-0500Body ojfxel417.96 cmBrett Kuns Other [employer] Other 02-16-2023 11:15-0500Body mass index (BMI) [Ratio] 42.83 kg/k9Thcdy Kuns Other [employer] Other 02-16-2023 11:15-0500Body qmjsaw303.32 kgBrett Kuns Other [employer] Other 02-16-2023 11:15-0500Diastolic blood xouasdps42 mm[Hg] Lon Kuns Other [employer] Other 02-16-2023 11:15-0500Respiratory rate16 /minBrett Evelia Other [employer] Other 02-16-2023 11:15-0809YiP5% (BldA) [Mass fraction]95 % Lon Kuns Other [employer] Other 02-16-2023 11:15-0500Systolic blood qcjptooq287 mm[Hg] Lon Kuns Other [employer] Other 01-19-2023 11:15-0500Body usaphe910.96 cmBrett Kuns Other [employer] Other 01-19-2023 11:15-0500Body mass index (BMI) [Ratio] 43.65 kg/w0Oecul Kuns Other [employer] Other 01-19-2023 11:15-0500Body uoehvv321.22 kgBrett Evelia Other [employer] Other 01-19-2023 11:15-0500Diastolic blood dvdladjm06 mm[Hg] Lon Jean-Pierres Other [employer] Other 01-19-2023 11:15-0500Respiratory rate16 /minBrett Kuns Other [employer] Other 01-19-2023 11:15-5657OeB8% (BldA) [Mass fraction]95 % Lonalondra Morejons Other [facility] [employer] Other 01-19-2023 11:15-0500Systolic blood mm[Hg] Lon Kuns [facility] [employer] Other 09-16-2022 14:30-0400Body .96 cmBrett Jean-Pierres Other [employer] Other 08-09-2022 08:20-0400Blood Pressure LocationMihir Cheatham Jr. executive [facility] 08-09-2022 08:20-0400Respiratory rate16 /Manny Cheatham Jr. executive [facility] 06-01-2022 13:05-0400Blood Pressure LocationJENNIFER MARYJANE Executive [facility] 06-01-2022 13:05-0400Diastolic blood qxlwhhad19 mm[Hg] AN[facility]ELITA PAEZ [facility] 06-01-2022 13:05-0400Heart rate79 /minANGELITA PAEZ Executive [facility] 06-01-2022 13:05-0400Systolic blood wkwbozaz931 mm[Hg] ANGELITA PAEZ Executive [facility] Encounters Encounter DateEncounter TypeCare ProviderFacilityStart: 12-14-2024 End: 92-37-0445ylvszzizhuNjnws KunsFacility:[facility] Start: 84-70-4906Qgo-patient / Non-visitLon Ibrahim DO-[facility] Work Phone: Start: 12-13-2024 End: 38-19-0227Jmvstdo encounter procedureLon Ibrahim DO-[facility] Work Phone: Start: 12-13-2024 End: 53-34-6680oziylersoaFekec Kuns DO Work Phone: -Lab CastaliaStart: 12-13-2024 End: 92-58-6425mesviqqvdvQcbnj Kuns DO Work Phone: -[facility] CastaliaStart: 12-13-2024 End: 55-47-7339Oytvyuu encounter procedureLon Ibrahim DO-[facility] [place] Work Phone: Start: 12-28-2023 End: 36-67-2986Zluccuxpmhnl consultation with García Willis MD Work Phone: Spine InstituteStart: 12-28-2023 End: 19-89-4585mwsfznfwopXmgyrye Pelle MD Work Phone: [facility] InstituteComment on above:Spinal stenosis, lumbar region with neurogenic claudication (Primary Dx); Spinal stenosis of cervical region; S/P cervical spinal fusionStart: 10-06-2023 End: 71-46-3846epqnngbaciLD Brett Kuns Work Phone: [facility] Work Phone: Start: 10-06-2023 End: 60-60-8337Ennsxxl encounter procedureDO Lon Ibrahim Work Phone: [facility] Work Phone: Start: 08-03-2023 End: 27-56-2284ajrxpjwbusCR Brett Kuns Work Phone: [facility] Work Phone: Start: 08-03-2023 End: 21-42-0622Lydvgvv encounter procedureDO Lon Ibrahim Work Phone: [facility] [place] Work Phone: Start: 08-03-2023 End: 76-42-2926oujtxsjrjgEC Brett Kuns Work Phone: [facility] Work Phone: Start: 08-03-2023 End: 37-19-8001Bjzznks encounter procedureDO Lon Ibrahim Work Phone: [facility] Work Phone: Start: 07-14-2023 End: 46-52-9013gzdkjlfwlhYRTZZWero Williamsoncility:[facility] Start: 07-14-2023 End: 26-30-7841Pnlzugm encounter Walt Fernnades APRN.[facility] Work Phone: UrologyComment on above:Hydronephrosis, unspecified hydronephrosis type (Primary Dx); Bladder wall thickening; Neurogenic bladderStart: 07-06-2023 End: 08-59-6469rrlofywbuhAHYAG ROGER KUNSFacility:[facility] Start: 07-06-2023 End: 30-67-3588Ozjcakhdrm hospital visit by physicianUs [facility] UltrasoundComment on above:Hydronephrosis, unspecified hydronephrosis type [N13.30]Start: 19-45-8236thoscdhujdQbeoai W RICEFacility:JANAE MaynardkStart: 06-04-2023 End: 59-50-9427wopnlpqgkvYEGZB ROGER KUNSFacility:[facility] Start: 06-04-2023 End: 71-73-9776Wedxnfj encounter Walt Fernandes APRN.CNP Work Phone: UrologyComment on above:Hydronephrosis, unspecified hydronephrosis type (Primary Dx); Urinary tract infection without hematuria, site unspecifiedStart: 06-01-2023 End: 32-70-5789cvcjemqynhWNIX SUSANFacility:[facility]tart: 06-01-2023 End: 42-49-3848Ozxzxgvucc hospital visit by physicianUs [facility] nuMVC UltrasoundComment on above:Hydronephrosis, unspecified hydronephrosis type [N13.30]Start: 55-87-1076Xlfjsfpcr Derrick Campa MD Work Phone: UrologyStart: 91-31-7958Udznrufhh Derrick Campa MD Work Phone: [facility] AdultStart: 05-04-2023 End: 01-89-8907xmozuttrmbEOOD SUSANFacility:[facility] Hospitaltart: 13-91-2727Plrgk abstractingApurva Campa MD Work Phone: UrologyStart: 02-79-2647Ilcpmovld Derrick Campa MD Work Phone: UrologyStart: 04-19-2023 End: 57-70-4112snmbbzkmobYVGRW ROGER KUNSFacility:[facility] Start: 04-19-2023 End: 25-53-8919Vhygpst encounter procedureApurva Campa MD Work Phone: UrologyComment on above:Bilateral hydronephrosis (Primary Dx); Bladder mass; Hydronephrosis, unspecified hydronephrosis type; Mild protein-calorie malnutrition (HCC); Morbid (severe) obesity due to excess calories (HCC)Start: 04-15-2023 End: 16-90-5550Nvngfhfqchkl consultation with patientActionable Findings Clinic Work Phone: [facility]Start: 04-15-2023 End: 94-26-5974yxxdxbwcnwEPTXG ROGER KUNSRadiologyComment on above:Other hydronephrosis (Primary Dx); Bladder massStart: 04-15-2023 End: 14-01-9841Meriwpanjm hospital visit by physicianUs [facility] UltrasoundComment on above:Abnormal finding of diagnostic imaging [R93.89]Start: 03-30-2023 End: 28-88-4789idxfucilqmMBITE ROGER KUNSFacility:[facility] Start: 63-33-7582Eenpuscgg encounterAnna Dwayne PULLIAM Work Phone: RadiologyStart: 47-65-9585Q-mail encounter from caregiverNicole HAWKINS-Elvira Work Phone: ccf [facility] MAINStart: 61-56-2748Aryoko-up encounterNicole Engle PA-C Work Phone: RadiologyComment on above:Actionable Findings Follow-UpStart: 02-16-2023 End: 05-28-4612ewamdatjifWxzet Kuns Other [employer] Other Start: 41-66-6906Lffnxmy encounter Angela Ibrahim [facility] [place]Start: 01-15-2023 End: 67-21-5024phvndfleopHP Brett Kuns Work Phone: [facility] Work Phone: Start: 01-15-2023 End: 43-82-6622Arbsive encounter procedureDO Lon Ibrahim Work Phone: [facility] [place] Work Phone: Start: 01-13-2023 End: 08-75-9847kzqlxbjjhgTguxs Kuns Other [employer] Other Start: 18-54-3370Ylkipjfhi encounterBrett NonaG [facility] CastaliaStart: 01-12-2023 End: 78-54-7774Cbnrrujn ReferredDO Lon Ibrahim Work Phone: [facility] Work Phone: Start: 01-12-2023 End: 67-35-7054dryllqhvzuCbiqr Keller Other [facility] [employer] Other Start: 20-55-0137Ipyllr outpatient visit 15 minutes Kelly JeremiasB[facility] ClydeStart: 01-08-2023 End: 39-84-7434usrclvopccAomoo Kuns Other [facility] [employer] Other Start: 76-53-8053Mvktetfku encounterBrealondra MorejonanaFPG [facility] Castbeaumont hospitalaStart: 12-21-2022 End: 41-99-5074Njvxxug encounter Herbie Willis MD Work Phone: Spmbq InstituteComment on above:Spinal stenosis, lumbar region with neurogenic claudication (Primary Dx)Start: 12-21-2022 End: 16-29-9255Nkchylgfhw hospital visit by physicianMagdaleno Sheikh J1-4 Work Phone: RadiologyComment on above:Spinal stenosis, lumbar region with neurogenic claudication [M48.062]Start: 11-30-2022 End: 93-07-7279vkwoltlcnaHhlil Kuns Other [facility] [employer] Other Start: 63-57-0326Gudnmdhoo encounterBrealondra Vargas [facility] CastaliaStart: 11-27-2022 End: 01-89-3226utkvobiejhQdkknyf Bonus PA-C Work Phone: spine InstituteComment on above:Spinal stenosis, lumbar region with neurogenic claudication (Primary Dx); Spinal stenosis of lumbar region with neurogenic claudicationStart: 11-27-2022 End: 14-63-7092Sfrqcalwrjho consultation with Dagoberto Patel PA-C Work Phone: ccf [facility]INStart: 11-16-2022 End: 17-85-5444Umdpvoxagl hospital visit by physiciani [facility] (Lg Bore/1.5t)Radiology MRIComment on above:Spinal stenosis of lumbar region, unspecified whether neurogenic claudication present [M48.061]Start: 10-16-2022 Jose Willis MD Work Phone: spine InstituteComment on above:mri dvdStart: 10-09-2022 End: 72-57-7213ngkezqldpoFxpev Kuns Other [employer] Other Start: 50-58-6741Wetrgcril encounterBrett EveliaG [facility] CastaliaStart: 09-24-2022 End: 08-71-9379stwucgavfqYtuwb Kuns Other [employer] Other Start: 84-74-0932Khhazyqnh encounterBrett EveliaWest [facility] CastaliaStart: 09-21-2022 End: 59-35-6699Brceypktuy hospital visit by physicianXr Main Og0KrkplukckOtuxccf on above:Spinal stenosis of lumbar region, unspecified whether neurogenic claudication present [M48.061]Start: 09-21-2022 End: 59-00-4634Ulptuxf encounter Herbie Willis MD Work Phone: spine InstituteComment on above:Spinal stenosis of lumbar region, unspecified whether neurogenic claudication present (Primary Dx); Spinal stenosis in cervical region; Arm weaknessStart: 09-10-2022 End: 22-59-1374vggbtauchzIogko Jean-Pierreana Other [facility] [employer] Other Start: 66-11-8893Pizsccspy encounterBrealondra MorejonanaRito [facility] CastaliaStart: 09-03-2022 End: 27-59-3681ifcccbgpvrKaamt Kunana Other [employer] Other Start: 68-41-3883Rscimczch encounterBrealondra Vargas [facility] CastaliaStart: 07-28-2022 End: 88-71-1340jnzbeqnlejWajlz Lynch APRN.[employer] Work Phone: Spine InstituteComment on above:EmgStart: 07-28-2022 Telephone encounterBryce Lara APRN.[employer] Work Phone: Spine InstituteComment on above:Patient UpdateStart: 42-54-2608Pauancego encounterBryce Lara APRN.[employer] Work Phone: NeurologyComment on above:MRI ReportStart: 07-16-2022 Telephone encounterBryce Lara APRN.[employer] Work Phone: NeurologyComment on above:ScansStart: 07-13-2022 End: 25-43-8665eurinahnwvJVZDC [facility] HospitalStart: 07-13-2022 End: 69-97-5105Oipchttsva hospital visit by [facility] CT ScanComment on above:Spinal stenosis, cervical regionStart: 63-06-0724Wligb abstractingUnk Pcp (Historical)NeurologyStart: 06-16-2022 End: 75-70-3376abxfczbsapQawrct W RICEFacility:JANAE NorwalkStart: 05-18-2022 End: 71-19-8316amrevxovulJBMXZFIPRDD M HASSETTTrinity Health System HospitalStart: 05-18-2022 End: 12-13-0627Wvnjtnjgeq hospital visit by [facility] Mri [facility] MRIComment on above:Cervical myelopathy (HCC)Start: 04-07-2022 End: 29-17-7901cnhufwxfnnSgtmx Kuns Other [employer] Other Start: 40-53-7224Hkivbsghz encounterBrett Jean-PierresFPG [facility] CastaliaStart: 03-31-2022 End: 99-65-5895shzofyzefdIgocr Kuns Other [employer] Other Start: 70-90-8859Qlrpousgd encounterBrett KunsFPG [facility] CastaliaStart: 03-26-2022 End: 96-24-6605kodtlbrrbtNbnje Kuns Other [employer] Other Start: 77-49-7136Gmlwki outpatient visit 25 minutes Lon Jean-PierresFPG [facility] CastaliaStart: 03-13-2022 End: 47-11-9226puurssvmrsYL LON KUNSFacility:N0Qiunx: 03-09-2022 End: 00-97-9347cdyxmnapdaKcwca Kuns Other [employer] Other Start: 97-92-0056Zsetfwmle encounterBrett KunsFP[facility] CastaliaStart: 02-26-2022 End: 24-18-9537ridxbxiibiSfhas Kuns Other [employer] Other Start: 37-19-2222Vkbnka outpatient visit 25 minutes Lon Jean-PierresFPG [facility] CastaliaStart: 02-24-2022 End: 50-88-6146klyqqycmktJprpcn W RICEFacility:FTMCStart: 02-24-2022 End: 52-61-8685wqxgdkiiiaMisokl W RICEFacility:EU [place]walkStart: 02-24-2022 End: 48-95-3242Tei Drop offRobert W YECENIA [facility] Start: 02-24-2022 End: 48-11-6070Vhrhtjh encounter procedureRobert W YECENIA [facility] Start: 02-16-2022 End: 94-63-5247dgtrpmfhhjNsoyh Kuns Other [employer] Other Start: 96-64-6556Phcfxcmbd encounterBrett Sam [facility] CastaliaStart: 02-12-2022 End: 60-75-2323rdtricimbvMbcqj Kuns Other [place] [employer] Other Start: 26-05-1656Vnhrnpczd encounterBrealondra Vargas [facility] CastaliaStart: 12-30-2021 End: 65-79-3674jobvsudmoaPkfdpg W RICEFacility:EU [place]walkStart: 12-22-2021 End: 07-35-1038zzrlncfdwlDcrelk W RICEFacility:FTMCStart: 12-22-2021 End: 34-02-9372zssntllpdnCzvtmo W RICEFacility:EU [place]kyStart: 12-10-2021 End: 94-21-5446fbiedksmrgOmxruw W RICEFacility:FTMCStart: 10-24-2021 End: 02-29-5169hanibbycglHdpmt Kuns Other [place] [employer] Other Start: 38-44-9652Rezxra outpatient visit 15 minutes Lon Vargas [facility] CastaliaStart: 10-16-2021 End: 69-96-5659Mibctsd encounter procedureDO Lon Ibrahim Work Phone: [facility] CastaliaStart: 10-14-2021 End: 03-70-8336utpybljljtOlwec Jean-Pierreana Other [facility] [employer] Other start: 07-75-1134Eqlvapfwf encounterBrett KunanaFPG [facility] CastaliaStart: 10-10-2021 End: 45-04-6120gaysufivgqQvkfi Kuns Other [facility] [employer] Other Start: 63-92-0180Miqmhgpig encounterBrett Jean-PierrePoplar Springs HospitalG [facility] CastaliaStart: 09-17-2021 End: 78-44-9854Xbv-admission Antonio Cheatham Jr. [facility] Start: 09-16-2021 End: 60-76-3439hfqdlwuoboNbhzjq L SmithFacility:EU BellueStart: 09-16-2021 End: 73-58-9511Cgljjaw encounter Boom Cheatham Jr. [facility] start: 56-34-5587hwzvmsgkvhNcsuia RICEFacility:FM [place] Start: 07-21-2021 End: 12-50-3480fpczslxamdJbxvxa L SmithFacility:EU [place]kyStart: 07-09-2021 End: 23-92-0500cbcnqajksgOIPCXBHE E PERRYFacility:FTMCStart: 07-09-2021 End: 02-34-8667uzwxjwppjfKTEUKNZY E PERRYFacility:EU [place]vueStart: 07-09-2021 End: 06-06-1925Kbr Drop offJENNIFER E MARYJANE [facility] Start: 07-09-2021 End: 81-13-9002Luligor encounter procedureJENNIFER E MARYJANE [facility]im start: 07-01-2021 End: 70-30-7372nnpzzvmobzTjfid Kuns Other [facility] [employer] Other Start: 34-81-3589Juvpjrnlq encounterBrett KunsFP[facility] CastaliaStart: 05-12-2021 End: 92-42-7283qmfvmkbdomXnwko Kuns Other [facility] [employer] Other Start: 11-67-6976Ptxzxpwdv encounterBrett KunsFP[facility] [place]aliaStart: 04-10-2021 End: 90-38-6720vktbscmuimNwzwa Kuns Other [facility] [employer] Other Start: 05-03-9149Imzmuwvbc encounterBrett KunsFP[facility] CastaliaStart: 02-24-2021 End: 41-92-8817iekvxkawusRsyvq Kuns Other [facility] [employer] Other Start: 47-25-3651Iphrnxjmr encounterBrett KunsFP[facility] CastaliaStart: 01-23-2021 End: 09-04-1688dhrhvtgxtgUrlec Kuns Other [facility] [employer] Other Start: 65-26-1976Nchnunrmg encounterBrett KunsFPG [facility] CastaliaStart: 85-08-0048Wnytaxrao encounterBrett KunsFPG [facility] CastaliaStart: 03-12-2020 End: 46-38-7075nullivqqykRZMskfwwfp:OKMCStart: 12-28-2018 End: 89-05-4758Zxcwrls encounter [facility] End: 38-17-6136Irwcvsfpqw hospital visit by physicianStv C-Arm [address] [place] [address] RadiologyComment on above:S/P cervical spinal fusion; 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)Start: 09-03-2018 End: 69-58-4309Iqogrkmgsj and management of inpatientTUSHAR Valencia [facility] Hospitaltart: 08-30-2018 End: 92-92-9071Zmnsmchqez and management of inpatientZUCherrington Hospitaltart: 07-14-2018 End: 09-04-6448Qvumoew encounter procedureZUHarrison Community Hospital Procedures DateProcedureProcedure DetailPerforming ClinicianStart: 07-43-0394JS PELVIS BLADDER-NBTerri Cookie Fernandes AUTOMOTIVE FINANCE MANAGER.[employer] Work Phone: Start: 24-85-8963Be retroperitoneal real time w/image completeHoperi Cookie Fernandes AUTOMOTIVE FINANCE MANAGER.[employer] Work Phone: Start: 94-12-5855Qf retroperitoneal real time w/image completeLuay Katheryn FOLEY Work Phone: Start: 03-64-6420Rj retroperitoneal real time w/image completeJanina Hadley AUTOMOTIVE FINANCE MANAGER.[employer] Work Phone: Start: 23-37-9776Konkf spine lumbosacral minimum 4 viewsJuliusissa Amanda PEARSON Work Phone: Start: 96-90-6975Bmx spinal canal thoracic w/o contrast Dai Keith MD Work Phone: Start: 83-79-9626Pyydn entir thrc lmbr crv sac spi w/skull 2/3 vwThegaby Keith MD Work Phone: Start: 41-24-4339Wit spinal canal cervical w/o contrast Phillip Antonio DO Work Phone: Start: 58-87-7490Jitvjqznjj studiesRobert RICE Start: 23-09-0926Rgcilqjvfliegpjxc and dilation of bladderMihir Cheatham Jr. start: 16-59-4081Oxvf intraperitoneal upper abdomen w/laps nosStart: 18-90-0871Teujnlbifiab cholecystectomyARUNKUMAR BASKARAStart: 90-32-5798Bfgwjrkjnllcf resection of bladder neoplasmANGELITA PAEZ Start: 48-26-5853Ptvxf spine cervical 2 or 3 views KAELYN AHAMMADStart: 80-13-8424Zmvtt spine cervical 2 or 3 viewsJanina Escobar Alexandrochetnico Start: 01-76-7433XIXZLRCUDY AHAMMADStart: 41-27-4478Gtvys count complete auto&auto difrntl wbcZUBAIR AHAMMADStart: 17-48-4524Wlzyjrrbxlyed metabolic panelZUBAIR AHAMMADStart: 34-15-8506HPVQAUCDDB AHAMMADStart: 08-44-0620QCHVZYPBW PATIENTZUBAIR AHAMMADStart: 07-21-5995SEUBIOZDZA AHAMMADStart: 03-76-3098ARZN KAELYN AHAMMADStart: 53-59-2646IRQRBZVX OXYGEN THERAPY PROTOCOLZUBAIR AHAMMAD Start: 44-17-1733GWVPY CANNULA OXYGENZUBAIR AHAMMADStart: 74-07-4252Yqplb count complete auto&auto difrntl wbcZUBAIR AHAMMADStart: 34-72-9877Kndedlfehqstb metabolic panelZUBAIR AHAMMADStart: 15-95-0842KAWYPKSQHO AHAMMADStart: 58-14-8346VCMFTT AND OUTPUTZUBAIR AHAMMADStart: 82-35-3923AXJVLFGYYR AHAMMAD Start: 33-96-1422JYNDYHQLWW AHAMMADStart: 73-79-9306UUBUFSYCXV AHAMMADStart: 23-09-2850YCQUQQZHMO AHAMMADStart: 30-42-6680Htaqsaqavgxgwj time partial plasma/whole bloodZUBAIR AHAMMADStart: 92-50-2454Uwz-scan xtr veins complete bilateral studyZUBAIR AHAMMADStart: 14-95-5524NPVCEJOZUD AHAMMADStart: 92-48-3547WCJKKYLP OXYGEN THERAPY PROTOCOLZUBAIR AHAMMADStart: 34-91-9194LRRYIJ STRIP REPORTZUBAIR AHAMMADStart: 37-25-2438Kfhdg count complete auto&auto difrntl wbcZUBAIR AHAMMADStart: 01-96-3413Izumixskziwlq metabolic panelZUBAIR AHAMMADStart: 86-09-7410MOQDCLMJOK AHAMMADStart: 81-88-8918Nbpgdqwshyhmqt time partial plasma/whole bloodZUBAIR AHAMMADStart: 95-15-0944VNDDON AND OUTPUTZUBAIR AHAMMADStart: 50-13-1725RHQFDREVRP AHAMMADStart: 57-34-6541Qnsidmrmpvauoy time partial plasma/whole bloodZUBAIR AHAMMADStart: 51-97-2855RNCXBOHZSK AHAMMAD Start: 83-77-4532FBEGHREOTE AHAMMADStart: 15-22-2389IXFIDQZPPR AHAMMADStart: 85-87-9563Yehdf count complete auto&auto difrntl wbcZUBAIR AHAMMADStart: 52-78-4954Bnhnvnljzxmev metabolic panelZUBAIR AHAMMADStart: 09-04-2018 Thromboplastin time partial plasma/whole bloodZUBAIR AHAMMADStart: 09-04-2018 Culture bacterial quanttative colony count urineZUBAIR AHAMMADStart: 09-04-2018 INITIATE OXYGEN THERAPY PROTOCOLZUBAIR AHAMMADStart: 18-86-3650DVBIYH AND OUTPUT KAELYN AHAMMADStart: 19-52-9072Gsvygiapczowfw time partial plasma/whole blood KAELYN AHAMMADStart: 81-66-6723Xwnou dip stick/tablet reagent auto microscopy KAELYN AHAMMADStart: 40-46-4200MZXOPNS ISOLATIONZUBAIR AHAMMADStart: 09-03-2018 Urnls dip stick/tablet rgnt auto w/o microscopyZUBAIR AHAMMADStart: 09-03-2018 DIET GENERALZUBAIR AHAMMADStart: 40-34-6989Inlehcswhdeiod time partial plasma/whole bloodZUBAIR AHAMMADStart: 42-41-7363NKNFFLGK PATIENTZUBAIR AHAMMAD Start: 55-23-0469Zse-scan xtr veins complete bilateral studyZUBAIR AHAMMADStart: 51-74-8508Ytwwv of troponin quantitativeZUBAIR AHAMMADStart: 86-84-5038Vpccw count complete automatedZUBAIR AHAMMADStart: 59-98-7828PBANZCUP SPECIMENZUBAIR AHAMMADStart: 50-79-3509Gganrlmazzlawq time partial plasma/whole bloodZUBAIR AHAMMADStart: 95-40-2741IW EVAL AND TREATZUBAIR AHAMMADStart: 50-11-6419BA EVAL AND TREATZUBAIR AHAMMADStart: 30-12-7392BVLTIYW HEELS OFF OF BEDZUBAIR AHAMMAD Start: 50-15-2534IOJA OF BED 60 DEGREES OR LESSZUBAIR AHAMMADStart: 09-03-2018 NURSING COMMUNICATIONZUBAIR AHAMMADStart: 48-41-4508OUCT PATIENTZUBAIR AHAMMAD Start: 47-51-5485Bomg tthrc r-t 2d w/wom-mode compl spec&colr dZUBAIR AHAMMAD Start: 57-03-2730GLZAYDXW OXYGEN THERAPY PROTOCOLZUBAIR AHAMMADStart: 09-03-2018 Iadna s aureus methicillin resist amp probe tqZUBAIR AHAMMADStart: 66-67-815753 hydroxy includes fractions if performedZUBAIR AHAMMADStart: 54-53-9080Ifrsp of lactateZUBAIR AHAMMADStart: 20-88-7097Wcrov of magnesiumZUBAIR AHAMMADStart: 43-56-0324Mkfxp of thyroid stimulating hormone tshZUBAIR AHAMMADStart: 78-66-1975Gywih of troponin quantitativeZUBAIR AHAMMADStart: 49-61-2844Ofwle count complete auto&auto difrntl wbcZUBAIR AHAMMADStart: 26-45-3809Jylautlysdyqf metabolic panelZUBAIR AHAMMADStart: 09-63-6582Kpxgjal function panelZUBAIR AHAMMADStart: 02-17-7462Zsyce gases any combination ph pco2 po2 co2 urh8DDUBIO AHAMMADStart: 18-27-0562AHOP CODEZUBAIR AHAMMADStart: 62-58-9270HJZJL INTERMITTENT PNEUMATIC COMPRESSION DEVICEZUBAIR AHAMMADStart: 34-03-1919HIXCTF FOR NO CHEMICAL VTE PROPHYLAXISZUBAIR AHAMMADStart: 20-97-3518SGEXOYLKN MONITORINGZUBAIR AHAMMADStart: 28-57-8537UAKLC WEIGHTSZUBAIR AHAMMADStart: 71-94-4416JHAQVUU HOBZUBAIR AHAMMADStart: 88-39-1910IDKHBXAL OXYGEN THERAPY PROTOCOLZUBAIR AHAMMADStart: 57-15-2705WYFYMR AND OUTPUTZUBAIR AHAMMADStart: 63-19-6907MY CONSULT TO CASE MANAGEMENTZUBAIR AHAMMADStart: 09-03-2018 NEURO/VASCULAR CHECKSZUBAIR AHAMMADStart: 02-53-7221TMQXZA PHYSICIAN (SPECIFY) KAELYN AHAMMADStart: 04-44-9926JHMSS SIGNSZUBAIR AHAMMADStart: 12-14-9246EN CONSULT TO CARDIOLOGYZUBAIR AHAMMADStart: 33-93-8608VDRWEE AND WEIGHTZUBAIR AHAMMADStart: 10-43-3185YEBYDPQ STATUS (FROM ED OR OR/PROCEDURAL)KAELYN AHAMMAD Start: 45-99-8674Ohg routine ecg w/least 12 lds w/i&rZUBAIR AHAMMADStart: 01-16-1356COY REPORTZUBAIR AHAMMADStart: 45-35-8566Relsl of troponin quantitativeZUBAIR AHAMMADStart: 06-73-2211Vlmtd metabolic panel calcium total KAELYN AHAMMADStart: 79-37-2263Qzomv count complete auto&auto difrntl wbcZUBAIR AHAMMADStart: 32-50-1168WZPFX NATRIURETIC PEPTIDEZUBAIR AHAMMADStart: 09-03-2018 Prothrombin timeZUBAIR AHAMMADStart: 93-16-5695Deqbospyyzvjns time partial plasma/whole bloodZUBAIR AHAMMADStart: 88-82-6687TA CONSULT TO CRITICAL CARE KAELYN AHAMMADStart: 48-86-3261PW CONSULT TO NEUROSURGERYZUBAIR AHAMMADStart: 90-89-1706Xlxictg-Feidavie sequence (disorder)ANGELITABRAIN PAEZ Start: 19-33-4652AEKIVZVWU SPIROMETRY RTZUBAIR AHAMMAD Start: 07-12-5951BUJFSNTJH SPIROMETRY RTZUBAIR AHAMMADStart: 41-28-5346SOYDCNHIP SPIROMETRY RTZUBAIR AHAMMADStart: 16-16-3728CLHQVOXGI PATIENTZUBAIR AHAMMAD Start: 97-22-1030KTZWOWHFU SPIROMETRY RTZUBAIR AHAMMADStart: 05-92-6512Jxlno spine cervical 2 or 3 viewsZUBAIR AHAMMADStart: 63-83-5286ZHAKIRECO SPIROMETRY RTZUBAIR AHAMMADStart: 67-40-5190BN CONSULT TO PSYCHIATRYZUBAIR AHAMMADStart: 97-42-8402UZJQAMEPT SPIROMETRY RTZUBAIR AHAMMADStart: 51-81-0434SFQRRTBT OXYGEN THERAPY PROTOCOLZUBAIR AHAMMADStart: 97-72-8412XRDMRTQQA SPIROMETRY RTZUBAIR AHAMMADStart: 86-20-3748Lqggz count complete automatedZUBAIR AHAMMADStart: 72-24-2522MWQKLZI HEELS OFF OF BEDZUBAIR AHAMMADStart: 32-92-8442NWEI OF BED 60 DEGREES OR LESSZUBAIR AHAMMADStart: 37-84-5280YVKCZZQ COMMUNICATIONZUBAIR AHAMMADStart: 44-67-8403ZBFG PATIENTZUBAIR AHAMMADStart: 34-53-9148NQRNGXRI REMOVALZUBAIR AHAMMADStart: 63-97-8497JFREFC AND OUTPUTZUBAIR AHAMMADStart: 74-16-2276KKVDH SIGNSZUBAIR AHAMMADStart: 93-28-1473LDCLUYM COMMUNICATIONZUBAIR AHAMMADStart: 38-92-3190IMKOXCJ DIET TOLERATED (NURSING COMMUNICATION)KAELYN AHAMMADStart: 48-58-9746LQBG CLEAR LIQUIDZUBAIR AHAMMADStart: 08-31-2018 ENCOURAGE DEEP BREATHING AND COUGHINGZUBAIR AHAMMADStart: 69-58-9995MJ EVAL AND TREATZUBAIR AHAMMADStart: 55-25-4484XF EVAL AND TREATZUBAIR AHAMMADStart: 54-46-3781YMYQHVPRU MONITORINGZUBAIR AHAMMADStart: 62-66-2507KOZYQCNB TOLERATEDZUBAIR AHAMMADStart: 11-45-3552IRWHKTYA PATIENTZUBAIR AHAMMADStart: 44-98-4375PWAN CODEZUBAIR AHAMMADStart: 35-11-2751JMVCPYUVK SPIROMETRY RTZUBAIR AHAMMADStart: 14-45-1013ZJVTKXVC OXYGEN THERAPY PROTOCOLZUBAIR AHAMMADStart: 07-24-8817SYVSM CAREZUBAIR AHAMMADStart: 09-59-6346ATYXIB AND OUTPUTZUBAIR AHAMMADStart: 70-49-6252YWHNQ/VASCULAR CHECKSZUBAIR AHAMMADStart: 08-31-[address] INTERMITTENT PNEUMATIC COMPRESSION DEVICEZUBAIR AHAMMADStart: 08-31-2018 NOTIFY PHYSICIAN (SPECIFY)KAELYN AHAMMADStart: 80-04-0023VVBYN SIGNSZUBAIR AHAMMADStart: 72-29-9950RHJKT CERVICAL COLLARZUBAIR AHAMMADStart: 08-30-2018 PATIENT STATUS (FROM ED OR OR/PROCEDURAL)KAELYN AHAMMADStart: 55-06-6110RRZLEIGH PATIENTZUBAIR AHAMMADStart: 56-60-1394Pxdpp spine cervical 2 or 3 viewsZUBAIR AHAMMADStart: 69-26-9528Zjhckxheod microscopic onlyZUBAIR AHAMMADStart: 92-42-5123Tlxjr dip stick/tablet rgnt auto w/o microscopyZUBAIR AHAMMADStart: 89-75-7463Fabfibq bacterial quanttative colony count urineZUBAIR AHAMMADStart: 36-04-9185RKTY AND SCREENZUBAIR AHAMMADStart: 26-26-3025Htn spinal canal cervical w/o contrast matrlZUBAIR AHAMMADBariatric surgery service (qualifier value)ANGELITA PAEZ CystoscopyANGELITA MARYJANE History of cholecystectomyS/P cholecystectomyDO Lon Ibrahim Work Phone: Pericardial effusion (disorder)ANGELITA PAEZ Pulmonary embolism (disorder)ANGELITA PAEZ Comment on above:treated at [facility] at [facility] Hospitalnsillectomy and adenoidectomyDANICAED PAEZ Plan of Treatment DateCare ActivityDetailAuthorStart: 96-73-0474Cuvzv panelLipidsBON [facility]OSPITALStart: 50-23-1356Hthrqtwj ScreeningDiabetes ScreeningFairfield Medical Center Start: 33-75-7040Ktjzu cultureMetroHealth Cleveland Heights Medical Centertart: 12-13-2024 Comprehensive metabolic 2000 panel - Serum or PlasmaMetroHealth Cleveland Heights Medical Centertart: 82-70-4563QppbyekyrMetroHealth Cleveland Heights Medical Centertart: 01-18-2024 End: 64-89-9411Rnzbrpm encounter ccqytnwrn31/10/2024 3:00 PM EST Office Visit Urology [address] [place] [address] Heather Fernandes, AUTOMOTIVE FINANCE MANAGER.BLACK TOP ROLLER [address] [place] [address] Return in about 6 months (around 01/13/2024) for rto for evalution of neurogenic bladderr, hydro, with US UA, culture, cytology prior.UrologyComment on above:Return in about 6 months (around 01/13/2024) for rto for evalution of neurogenic bladderr, hydro, with US UA, culture, cytology prior.Start: 01-10-2024 End: 73-42-5340Rcckfqp encounter sxbhiimcx14/02/2024 3:15 PM EST Appointment Radiology [address] [place] [address] US kidney/BladderRadiologyComment on above:US kidney/BladderStart: 01-10-2024 End: 39-43-7698htibvylvko63/02/2024 3:00 PM EST Results Only [facility] [address] [place] [address] labsLorain [facility] LaboratoryComment on above:labsStart: 01-09-2024 End: 75-37-2010Pcailmkf identified in Urine by CultureURINE CULTURE Microbiology Routine Bladder wall thickening Expected: 01/09/2024, Expires: 04/09/2024 [facility] CenterComment on above:Expected: 01/09/2024, Expires: 04/09/2024Start: 01-09-2024 End: 08-58-0032WWIGRMSB NON-GYNCYTOLOGY NON-TELETYPEWRITER INSTALLER Lab Routine Bladder wall thickening Expected: 01/09/2024, Expires: 04/09/2024leveland ClinicComment on above:Expected: 01/09/2024, Expires: 04/09/2024Start: 01-09-2024 End: 52-96-9741Geuiwmdcql complete panel - UrineURINALYSIS, WITH MICROSCOPIC Lab Routine Bladder wall thickening Expected: 01/09/2024, Expires: 04/09/2024 [facility] Work Phone: Comment on above:Expected: 01/09/2024, Expires: 04/09/2024Start: 01-09-2024 End: 08-54-0331XY Kidney - bilateral and Urinary bladderUS KIDNEY/BLADDER Radiology Routine Hydronephrosis, unspecified hydronephrosis type Expected: 01/09/2024, Expires: 08/12/2024leveland ClinicComment on above:Expected: 01/09/2024, Expires: 08/12/2024Start: 12-28-2023 End: 67-35-0455Jcebda-up nprhamyga86/19/2024 3:[address] [facility] [address] [id number] Moises Willis MD [address] [place] [address] 1 year follow upScoulterville InstituteComment on above:1 year follow upStart: 10-10-2023 Covid-19 Vaccine ( season)Covid-19 Vaccine ( season) [facility]: 90-55-7618Mnmbwvqaj vaccinationInfluenza Vaccine (#1) [facility]: 07-14-2023 End: 07-67-7629Fsgospn encounter drdifmvty19/05/2024 3:30 PM EDT Office Visit Urology [address] [id number] Heather Fernandes, AUTOMOTIVE FINANCE MANAGER.BLACK TOP ROLLER [address] [place] [address] f/u after USUrologyComment on above:f/u after USStart: 07-06-2023 End: 94-10-3185Dfzqbjx encounter ezrjqatud84/28/2024 1:00 PM EDT Appointment Ultrasound [address] [place] [address] [phone], unspecified hydronephrosis type [N13.30]UltrasoundComment on above: Hydronephrosis, unspecified hydronephrosis type [N13.30]Start: 07-04-2023 End: 30-29-6088FN Kidney - bilateral and Urinary bladderUS KIDNEY/BLADDER Radiology Routine Hydronephrosis, unspecified hydronephrosis type Expected: 07/04/2023, Expires: 07/03/2024[facility] Work Phone: Comment on above:Expected: 07/04/2023, Expires: 07/03/2024Start: 07-04-2023 End: 22-38-4503IG Urinary bladderUS PELVIS BLADDER Radiology Routine Hydronephrosis, unspecified hydronephrosis type Expected: 07/04/2023, Expires: 5CTrinity Health System Twin City Medical CenterComment on above:Expected: 07/04/2023, Expires: 07/03/2024Start: 06-04-2023 End: 68-68-2844Vkxbqsi encounter qjrumgslt90/26/2024 1:00 PM EDT Office Visit Urology [address] [place] [address] Heather Fernandes, AUTOMOTIVE FINANCE MANAGER.BLACK TOP ROLLER [address] [place] [address] Schedule follow-up office visit with nurse practitioner in 1 month.Urology Comment on above:Schedule follow-up office visit with nurse practitioner in 1 month.Start: 04-19-2023 End: 88-16-3482Bgqtkctd identified in Urine by CultureMercy Health Defiance Hospital Work Phone: Comment on above:Expected: 04/19/2023 (Approximate), Expires: 07/19/2023Start: 04-19-2023 End: 71-45-3632MZ Kidney WO and W contrast IVCT UROGRAM WO/W IVCON Radiology Routine Hydronephrosis, unspecified hydronephrosis type Expected: 04/19/2023 (Approximate), Expires: 05/18/2024[facility] Work Phone: Comment on above:Expected: 04/19/2023 (Approximate), Expires: 05/18/2024Start: 04-19-2023 End: 43-27-0446FWSTTWSQ NON-GYNMercy Health Defiance Hospital Work Phone: Comment on above:Expected: 04/19/2023 (Approximate), Expires: 07/19/2023Start: 04-19-2023 End: 11-86-5038SVQHDHITMD, REFLEX MICROSCOPICMercy Health Defiance Hospital Work Phone: Comment on above:Expected: 04/19/2023 (Approximate), Expires: 07/19/2023Start: 54-02-7465Livwb screenLipid screenUniversity Hospitals Beachwood [facility], [place] Start: 20-90-6792Ifqcoqqvts Health ScreeningBehavioral Health ScreeningProtestant Hospitaltart: 91-46-6339Ymwrgxnmub AssessmentDepression AssessmentProtestant Hospitaltart: 82-27-7627WUuX/Tdap/Td vaccine (2 - Td or Tdap)DTaP/Tdap/Td vaccine (2 - Td or Tdap)[facility]ITALStart: 40-16-4324SOsI/Tdap/Td vaccine (2 - Td)DTaP/Tdap/Td vaccine (2 - Td)[facility], [place]Start: 76-01-6518Tusif microalbumin profileDTaP,Tdap,Td Vaccine (2 - Td or Tdap)[facility]: 18-16-5060Mgzfx cultureUrine CultureMetroHealth Cleveland Heights Medical Centertart: 29-46-2998Eyxzg-19 Vaccine ()Covid-19 Vaccine ()[facility]: 89-84-3173Rktimrjzw vaccinationFairfield Medical Center Start: 12-58-9684FBUZCHCSGB ASSESSMENTDEPRESSION ASSESSMENTFairfield Medical Center Start: 36-90-8311Wpyyqcbh ScreeningDiabetes ScreeningProtestant Hospitaltart: 23-80-8222REZZB-19 VACCINE (4 - Booster for Moderna series)COVID-19 VACCINE (4 - Booster for Moderna series)[facility]: 27-01-7901TPCJY-19 VACCINE (4 - Moderna series)COVID-19 VACCINE (4 - Moderna series)[facility]: 70-46-8736Bmbzcbshrwdn Vaccine: 50+ (2 of 2 - PCV)Pneumococcal Vaccine: 50+ (2 of 2 - PCV)[facility]: 45-56-3797Fyvivteng for malignant neoplasm of breastBreast cancer screenBON [facility]ITALStart: 24-45-0454Jssykjlk vaccine (1 of 2)Shingles vaccine (1 of 2)[facility] [facility] Campusart: 57-09-5406WYUEPOUI VACCINE (1 of 2)SHINGRIX VACCINE (1 of 2)[facility] Start: 02-23-2019 End: 83-28-7583Nwrcoo VisitMercy Min Invasive Bariatric SurgStart: 10-09-2018 Influenza vaccinationFlu vaccine (#1)[place], [place]Start: 88-94-6648Unixyy Wellness Visit (AWV)Annual Wellness Visit (AWV)[facility]ITALStart: 89-15-5988SYIPEFHYV (FIT-DNA)COLOGUARD (FIT-DNA)[facility]: 73-36-1974DruvnbyooayYDOCXZDSUFPPgquhatry ClinicStart: 61-16-9694RIUIXGOYLS CANCER SCREENINGCOLORECTAL CANCER SCREENINGProtestant Hospitaltart: 26-43-1621QW COLONOGRAPHYCT COLONOGRAPHYProtestant Hospitaltart: 70-00-5762BBCQTYSW SCREEN DIABETES SCREENProtestant Hospitaltart: 72-23-4086Zosvukpb ScreeningDiabetes ScreeningProtestant Hospitaltart: 15-82-4843WUEBM OCCULT BLOODFECAL OCCULT BLOOD [facility]: 31-75-3738Augbr 1996 panel - Serum or PlasmaLipid ScreeningProtestant Hospitaltart: 16-61-5952Aqorg panelLipid ScreeningProtestant Hospitaltart: 16-12-8212DPJKX SCREENLIPID SCREENProtestant Hospitaltart: 2014 Screening for malignant neoplasm of colonRETREAT DOCTORS' HOSPITALStart: 99-65-0310DFYWHOZGISADTVNAHXUCEUOFQLFjfovphkc ClinicStart: 17-51-6319Ydbqpfwalup [facility]: 63-63-9448Nmtdrrdap for malignant neoplasm of breast Mammogram ScreeningProtestant Hospitaltart: 59-06-3828NKV TESTINGHPV TESTING [facility]: 03-17-6952Tpbnsckxk for malignant neoplasm of cervixRETREAT DOCTORS' HOSPITALStart: 34-69-9591Xplnzrrz cancer screenCervical cancer screenHolzer Medical Center – [facility]: 07-55-7972AFP TESTINGPAP TESTINGProtestant Hospitaltart: 87-46-2397Qtlrpwwoe for malignant neoplasm of cervixRETREAT DOCTORS' HOSPITALStart: 01-72-0718Ccmukxpvh B Vaccine (1 of 3 - 19+ 3-dose series) Hepatitis B Vaccine (1 of 3 - 19+ 3-dose series)[facility]: 16-78-6887Lvfkh microalbumin profileDTAP,TDAP,TD (1 - Tdap)[facility] Start: 55-32-7079Udputcp ScreeningAnxiety ScreeningProtestant Hospitaltart: 82-88-7236Wknoaepjoz ScreeningDepression ScreeningProtestant Hospitaltart: 77-09-6218Ciwfffydw C screeningRETREAT DOCTORS' HOSPITALStart: 07-28-1987 HEPATITIS C SCREENINGHEPATITIS C SCREENINGProtestant Hospitaltart: 66-03-7859SFF SCREENINGHIV SCREENINGProtestant Hospitaltart: 50-23-7789NWF screeningHIV ScreeningProtestant Hospitaltart: 73-34-8927DUL screenHIV screenFl[place], [place]Start: 60-91-1741BHK screeningHIV screenRETREAT DOCTORS' HOSPITALStart: 23-08-0372Lfcziyhzca MonitoringDepression MonitoringRETREAT DOCTORS' HOSPITAL Start: 92-33-4780BJXFVVEFB B (1 of 3 - 3-dose series)HEPATITIS B (1 of 3 - 3- dose series)[facility]: 01-52-1880Rsjlsawdr B Vaccine (1 of 3 - 3- dose series)Hepatitis B Vaccine (1 of 3 - 3-dose series)[facility] Albumin/Globulin ratioSelect Medical Specialty Hospital - CincinnatiAnion gap measurement [facility] End: 82-66-0094Rdrdhryl identified in Urine by CultureURINE CULTURE Microbiology Routine Urinary tract infection without hematuria, site unspecified 5 Occ urrences starting 06/04/2023 until 5C[facility] ClinicComment on above:5 Occurrences starting 06/04/2023 until 06/03/2024asophils [#/volume] in Blood by Automated countSelect Medical Specialty Hospital - CincinnatiBasophils/100 leukocytes in Blood by Automated [facility] Cross HospitalCalculated LDL cholesterol levelSelect Medical Specialty Hospital - CincinnatiCholesterol.total/Cholesterol in HDL [Mass Ratio] in Serum or PlasmaSelect Medical Specialty Hospital - Cincinnati Comprehensive metabolic 1999 panel - Serum or [facility] CenterComprehensive metabolic 2000 panel - [facility] or [facility] End: 14-40-6871RA CERVICAL SPINE WO CONTRASTBON [facility] Work Phone: Comment on above:1 Occurrences starting 07/13/2022 until 07/13/2022 End: 17-35-5814Vy lumbar spine w/o contrast materialCT LUMBAR SPINE WO IVCON Radiology Routine Spinal stenosis of lumbar region with neurogenic claudication 1 Occurrences starting 11/27/2022 until 4[facility] Work Phone: Comment on above:1 Occurrences starting 11/27/2022 until 12/27/2023 End: 96-97-1067CGE(NEURO/NI)EMG(NEURO/NI) EMG Routine Cervical disc disorder with radiculopathy Right arm weakness 1 Occurrences starting 07/22/2022 until 4CC[facility] Work Phone: Comment on above:1 Occurrences starting 07/22/2022 until 07/23/2023Eosinophils/100 leukocytes in Blood by Automated countSelect Medical Specialty Hospital - CincinnatiErythrocyte distribution width [Ratio] by Automated count [facility] CincinnatiErythrocytes [#/volume] in BloodSelect Medical Specialty Hospital - CincinnatiGlobulin [Mass/volume] in SerumSelect Medical Specialty Hospital - CincinnatiGlomerular filtration rate [Volume Rate/Area] in Serum, Plasma or Blood by CreatinineSelect Medical Specialty Hospital - CincinnatiGlucose measurement estimated from glycated hemoglobinSelect Medical Specialty Hospital - CincinnatiGlucose measurement estimated from glycated hemoglobinSelect Medical Specialty Hospital - CincinnatiHematocrit [Volume Fraction] of BloodSelect Medical Specialty Hospital - CincinnatiHemoglobin [Mass/volume] in BloodSelect Medical Specialty Hospital - CincinnatiHemoglobin A1c/Hemoglobin.total in BloodSelect Medical Specialty Hospital - CincinnatiLeukocytes [#/volume] corrected for nucleated erythrocytes in Blood by Automated coun [facility] CincinnatiLeukocytes [#/volume] in BloodSelect Medical Specialty Hospital - CincinnatiLymphocytes [#/volume] in Blood by Automated count [facility] CincinnatiLymphocytes/100 leukocytes in Blood by Automated [facility] Cross HospitalMCH [Entitic mass] by Automated countSelect Medical Specialty Hospital - CincinnatiMCHC [Mass/volume] by Automated count [facility] CincinnatiMCV [Entitic volume] by Automated count [facility] CincinnatiMonocytes [#/volume] in Blood by Automated countSelect Medical Specialty Hospital - CincinnatiMonocytes/100 leukocytes in Blood by Automated countSelect Medical Specialty Hospital - Cincinnati End: 15-08-4237Nfo spinal canal lumbar w/o contrast materialMRI LUMBAR SPINE WO IVCON Radiology Routine Spinal stenosis of lumbar region, unspecified whether ne urogenic claudication present 1 Occurrences starting 09/21/2022 until 10/21/2023 [facility] Work Phone: Comment on above:1 Occurrences starting 09/21/2022 until 10/21/2023 End: 45-13-0001Fhg spinal canal thoracic w/o contrast matrlMRI THORACIC SPINE WO IVCON Radiology Routine Spinal stenosis of lumbar region, unspecified whether neurogenic claudication present 1 Occurrences starting 09/21/2022 until 10/21/2023[facility] Work Phone: Comment on above:1 Occurrences starting 09/21/2022 until 10/21/2023Neutrophils [#/volume] in Blood by Automated countSelect Medical Specialty Hospital - CincinnatiNeutrophils/100 leukocytes in Blood by Automated count [facility] CincinnatiNucleated erythrocytes [Presence] in Blood by Automated countSelect Medical Specialty Hospital - CincinnatiPlatelet mean volume [Entitic volume] in Blood by Automated countSelect Medical Specialty Hospital - CincinnatiPlatelets [#/volume] in BloodSelect Medical Specialty Hospital - [place] End: 47-36-1637Mjdpe spine lumbosacral minimum 4 viewsXR LUMBAR MOTION 4V AP/LAT/ FLEX/EXT Radiology Routine Spinal stenosis, lumbar region with neurogeni c claudication 1 Occurrences starting 11/27/2022 until 4[facility] Work Phone: Comment on above:1 Occurrences starting 11/27/2022 until 12/27/2023 End: 30-37-5843Svuwurjisj complete panel - UrineURINALYSIS, WITH MICROSCOPIC Lab Routine Urinary tract infection without hematuria, site unspecified 5 Occurrences starting 06/04/2023 until 5CTrinity Health System Twin City Medical CenterComment on above:5 Occurrences starting 06/04/2023 until 05/09/2024Urine [facility] AdministrationVLDL cholesterol measurementGateway Medical Center ASC [facility]AINAdventHealth [facility] Immunizations Immunization DateImmunizationNotesCare WnujeikvJqqdebmg12-13-9321Ofr Shot - Documentation Purposes OnlyLon Ibrahim Other [facility]10-23-2023COVID-19 Vaccine Pfizer - Documentation Purposes OnlyLon Ibrahim Other [facility]10-23-2023Influenza, injectable, Madin Tressa Canine Kidney, preservative free, quadrivalentDO Lon Ibrahim Work Phone: [facility]10-23-2023influenza virus vaccine, unspecified formulationMoises Willis MD Work Phone: [facility] CenterLjxnbo48-56-7818fptnnjmbn virus vaccine, unspecified formulationRobert YECENIA [facility] [place] 658950-14-2022influenza, injectable, quadrivalent, preservative freeDO Lon Ibrahim Work Phone: [facility]10-14-2022SARS-CoV-2 (COVID-19) mRNAMUL.ORD![id number] RICE [facility] [place] 658952-15-2021SARS-CoV-2 (COVID-19) mRNA-1273 vaccineRobert RICE [facility]04-17-2021COVID-19 Vaccine Moderna - Documentation Purposes OnlyBrett Kuns Other [facility]03-20-2021COVID-19 Vaccine Moderna - Documentation Purposes OnlyBrett Kuns Other [facility]01-01-2021SARS-CoV-2 (COVID-19) mRNA-1273 vaccineJENNIFER MARYJANE [facility] comment on above:Result Comment: pt is fully vaccinated but does not know the datesResult Comment: pt is fully vaccinated but does not know the -45-3436ixmeujihr virus vaccine, unspecified formulationJENNIFER MARYJANE [facility] 10857486-71-0810jayxbdhcy, injectable, quadrivalent, contains preservativeBrett Kuns Other [facility]10-13-2020influenza virus vaccine, unspecified formulationRobert RICE [facility] [place] 658950-13-2020influenza, injectable, quadrivalent, preservative freeDO Lon Kuns Work Phone: [facility]10-06-2019influenza virus vaccine, unspecified formulationRobert RICE [facility] [place] 658950-06-2019influenza, injectable, quadrivalent, contains preservativeDO Lon Kuns Work Phone: [facility]04-04-2018Toradol per 15 mgBrett Kuns Other [place] [facility] [employer] Other 982407-00-9747Zletlbl per 15 mgBrett Kuns Other [place] [facility] [employer] Other 10697558-20-1644szfggvrjm virus vaccine, unspecified formulationRobert RICE [facility] [place] 658950-05-2017influenza, injectable, quadrivalent, preservative freeDO Lon Kuns Work Phone: [facility]10-05-2017influenza, injectable, quadrivalent, contains preservativeBrett Kuns Other [facility]10-05-2017Toradol per 15 mgBrett Kuns Other [place] [facility] [employer] [facility] Other 865562-99-3588rycksdtcv virus vaccine, unspecified formulationRobert RICE [facility] [place] 658951-09-2016influenza, injectable, quadrivalent, preservative freeDO Lon Kuns Work Phone: [facility]09-24-2015Toradol per 15 mgBrett Kuns Other [place] [facility] [employer] [facility] Other 11184992-82-0822krmqjjfps virus vaccine, unspecified formulationRobert RICE [facility] [place] 658951-13-2014influenza, seasonal, injectableDO Lon Kuns Work Phone: [facility]01-01-2014tetanus toxoid, reduced diphtheria toxoid, and acellular pertussis vaccine, adsorbedStv 2Exec[facility] Hospitalomment on above: Result Comment: 2021-12-22: EXTERNAL ADMIN: PT SLJ29-62-3048heoyjjnnz virus vaccine, unspecified formulationRobert RICE [facility]10-23-2013influenza, seasonal, injectableDO Lon Kuns Work Phone: [facility]11-14-2012influenza virus vaccine, unspecified formulationRobert RICE [facility]ery11-14-2012influenza, seasonal, injectableDO Lon Kuns Work Phone: [facility]10-18-2011influenza virus vaccine, unspecified formulationRobert RICE [facility]ery10-18-2011influenza, seasonal, injectableDO Lon Kuns Work Phone: [facility]01-20-2010novel tgxdgqnou-B1R1-40, preservative-free, injectableDO Lon Kuns Work Phone: [facility]11-05-2008 pneumococcal polysaccharide vaccine, 23 valentRobert RICE [facility]11-04-2008influenza, wholeRobert RICE [facility] CenteryNEGATED: Highlighted row has not occurred!60-58-7742CXJK-CoV-2 mRNA (tozinameran 5y-11y) vaccineJENNIFER MARYJANE [facility] [place] NEGATED: Highlighted row has not occurred!10-27-2016 Toradol per 15 Rickey Ibrahim Other [facility] [employer] Other Payers DatePayer CategoryPayerPolicy [id number] Health [id number] 2023Medicare [id number] 2019MedicaidMEDICAID [place] MEDICAID [facility] DEPT OF JOB xxxxxxxxxxxx 2018-Present [phone] [address] [place], [place] [address]ncwgkduxcpzl [id number] [id number] 2019MedicareMEDICARE MEDICARE PART A AND B xxxxxxxxxxx 2018-Present [phone] [address] [address] [place], [id number] [id number] 2015 [id number] 2.0.1.479540.3.579.2.176 [id number] 2.0.1.153829.3.57[id number] 2..1.437072.3.57[id number] 2.0.1.681668.3.57[id number] 2.16.840.1.948164.3.579.2.287 [id number] 2.16.840.1.866399.3.57[id number] 2.16.840.1.289439.3.57[id number] 2.16.840.1.762872.3.57[id number] 2.16.840.1.571782.3.57[id number] 2.840.1.197334.3.57[id number] 2.840.1.307868.3.57[id number] 2.840.1.372243.3.57[id number] 2.840.1.304920.3.57[id number] 2.840.1.303430.3.57[id number] 2.840.1.956148.3.57[id number] 2.840.1.225509.3.57[id number] 2.840.1.856433.3.57[id number] 2.840.1.357913.3.57[id number] 2.840.1.801725.3.57[id number] 2.16.840.1.863730.3.57[id number] 2.16.840.1.697537.3.579.2.65002-55-0822Ubjmrrs73603062 2.16.840.1.998226.3.57[id number] 2.16.840.1.703013.3.579.2.173 [id number] 2.16.840.1.555320.19 Self-[id number] rh46oefz-v327-7719-06l4-68123n6640e3Egdqdbx [id number] 78g94159-0dho-2d72-1z09-[id number] 2.16.840.1.8[id number] 2.16.840.1.626588.3.579.2.531 Social History DateTypeDetailFacilityStart: 12-28-2018 End: 77-77-6064Xbaidhf smoking status NHISNever smokerHolzer Medical Center – [facility]: 12-28-2018 End: 41-67-7902Xptjwcy intakeCurrent non-drinker of alcohol (finding)[facility]: 08-65-0625Isr Assigned At BirthNot on [facility]: 09-21-2022 End: 47-32-6957JfqebdVwqgq [employer] Other Start: 83-48-3975Zob Assigned At BirthFeSamaritan HospitalTobacco smoking statusNeverExecutive Urology of [facility] Hospitalart: 07-02-2016 End: 63-68-8093Cxwtdks use and exposureSmokeless tobacco non-userBON [facility] Work Phone: Tobacco smoking status NHISTobacco smoking consumption unknownProtestant Hospitaltart: 06-29-2022 End: 79-02-9716Xrojnwm intakeLifetime non-drinker (finding)[facility] Start: 09-21-2022 End: 91-62-6696Mqzpfnj of Social functionProtestant Hospitaltart: 56-85-2662Mjbaiv identityIdentifies as female gender (finding)[facility]testant HospitalexFemale (finding)[facility] Medical Equipment Procedure CodeEquipment CodeEquipment Original TextEquipment IdentifierDates Bailey-Putty Progenix Plus [id number]: 76-42-5743Dmzybg Stapler [address] [id number]: 87-03-9382Okmqyw Stapler [address] [id number]_dln Start: 22-09-9944Foupvg Stapler [address] [id number]: 06-21-2017 Reload Stapler [address] [id number]: 58-44-8593Wkcaac Nenana Blk [id number]_impStart: 51-78-3545Aiwwxc Nenana Blk [id number]_impStart: 70-61-2610Krwn Spine Cage Spacr Bengal Lg 7deg [id number]_impStart: 08-30-2018 Plate Cerv Ant Ti [id number]_impStart: 28-52-9533Bohwq Cerv [facility] Selftap Ti 16mm [id number]_impStart: 08-30-2018 Functional Status LyosZbjfrltmpkUmwmorBmgxrsuv84-80-2799Jceruklmbs StatusN/AExecutive [facility] of [facility] [facility]08-09-2022Functional StatusN/AExec[facility] Clinical [facility] 08-08-2016 to 12-13-2024 Note Date & [id number] Evaluation note* Diagnosis Onset Date Resolution Status Admit Date BMI 50.0-59.9, adult acuteNovember 2024 1:07pmChronic UTIacuteNovember 2024 1:07pmDecreased mobilityacuteNovember 2024 1:07pmLumbar radiculopathyacuteNovember 2024 1:07pmSkin breakdownacuteNovember 2024 1:07pm [facility] Work Phone: [phone] NoteHNO ID: [id number] Author: MOISES WILLIS MD Service: ? Author [...] visit. Either the patient or their legal outbound sales representative has been informed of the risks and benefits of -- and alternatives to -- treatment through a remote evaluation and consents to proceed with the evaluation remotely. 10 minutes Moises Willis [facility]11-19-2024 History of Present illness Narrative* Moises [...] visit. Either the patient or their legal outbound sales representative has been informed of the risks and benefits of -- and alternatives to -- treatment through a remote evaluation andconsents to proceed with the evaluation remotely. 10 minutes Moises Willis MD documented in this encounterFairfield Medical Center06-05-2024 History of Present illness Narrative* Heather Fernandes, AUTOMOTIVE FINANCE MANAGER.BLACK TOP ROLLER - 07/14/2023 3:30 PM EDT Carrie Luz Fletcher [address] [facility] [place] [address] HISTORY OF PRESENT ILLNESS: Seen 06/04/23 for [...] doing well will cont with present regiment YCF=727 ML US kidney/pelvic w PVR 07/06/23= IMPRESSION: [...] Making Level: 4 - Moderate Heather Fernandes APRN.BLACK TOP ROLLER documented in this encounterFairfield Medical Center06-05-2024 NoteHNO ID: [id number] Author: HEATHER FERNANDES APRN.MERLYN Service: ? Author Type: Nurse Practitioner Type: Progress Notes Filed: 07/14/2023 18:52 Note Text: Carrie Luz Fletcher [address] [place] [address] [place] [address] HISTORY OF PRESENT ILLNESS: Seen 06/04/23 for [...] doing well will cont with present regiment ZUZ=047 ML US kidney/pelvic w PVR 07/06/23= IMPRESSION: [...] BLOOD: No ekimosis, no (more content not included)...[facility] 07-06-2023 NoteHNO ID: [id number] Author: DANIELLE PARIS RT(R) Service: ? Author Type: Kiln Head House Operator Type: Progress Notes Filed: 07/06/2023 13:29 [...] PATIENT PRESENTS WITH AN IMPLANTABLE OR ATTACHED DRY TRANSFER MAN: No RADIOLOGY DEPARTMENT: Ultrasound PERIPHERAL IV DATA: Not applicable SIGNED BY: RT Byron(R) July 06, 2023 1:28 [place] [address]-26-2024 History of Present illness Narrative* Forest Fernandesrizwana Gary, AUTOMOTIVE FINANCE MANAGER.BLACK TOP ROLLER - 06/04/2023 1:00 PM EDT Carrie Fletcher [id number] [facility] [place] [address] HISTORY OF PRESENT ILLNESS: Seen 04/19/23 by [...] Making Level: 4 - Moderate Heather Fernandes APRN.BLACK TOP ROLLER documented in this encounterFairfield Medical Center04-26-2024 NoteHNO ID: [id number] Author: HEATHER FERNANDES APRN.BLACK TOP ROLLER Service: ? Author Type: Nurse Practitioner Type: Progress Notes Filed: 06/04/2023 15:10 Note Text: Carrie Fletcher [address] [place] [place] [address] HISTORY OF PRESENT ILLNESS: Seen 04/19/23 by [...] no masses or organomegaly. (more content not included)...[facility]04-23-2024 NoteHNO ID: [id number] Author: DANIELLE PARIS RT(R) Service: ? Author Type: Kiln Head House Operator Type: Progress Notes Filed: 06/01/2023 14:07 [...] PATIENT PRESENTS WITH AN IMPLANTABLE OR ATTACHED DRY TRANSFER MAN: No RADIOLOGY DEPARTMENT: Ultrasound PERIPHERAL IV DATA: Not applicable SIGNED BY: RT Byron(R) June 01, 2023 2:[address] [facility]04-09-2024 NoteOccupational Therapy Adult Health Clinical Nurse Specialist Rehab Discharge Summary 05/18/2023. Ms Fletcher was evaluated in the [facility] on 03/06/2022 which suggested [...] for power wheelchair. She may follow-up at [facility] wheelchair seating clinic which is completed in [...] She has not followed back with the [facility] and will be discharged at this time. Ilsa Peralta OTR/L CDRSUniversTriHealth [facility]04-02-2024 Miscellaneous Notes* Telephone Encounter - Apurva Campa MD - 05/11/2023 1:41 PM EDT PLEASE CALL PATIENT AND SEE HOW IS SHE IS DOING WITH THE CATHETER IN INFORM HER NEEDS TO KEEP THE CATHETER TILL SHE SEE HEATHER 06-04-23 She need to schedule the renal US needed about a week prior her office visit with Heather Campa MD documented in this encounterFairfield Medical Center03-31-2024 NoteHNO ID: [id number] Author: APURVA CAMPA MD Service: ? Author Type: Physician Type: Progress Notes Filed: 05/09/2023 10:08 Note Text: CT A/P WO/W IV C 04/28/[address] [facility]: 1-chronic marked hydronephrosis and hydroureter bilateral secondary to irregular bladder wall thickening most suggestive of neoplasm. 2-no appreciable lymphadenopathy or metastatic disease 3-L5-S1 marked degenerative disc diseaseNewark Hospital03-26-2024 Miscellaneous Notes* Telephone Encounter - Tiffanie Bucio - 05/04/2023 4:01 PM EDT Called and spoke with patient. Patient is scheduled ov in 1 month with Heather Fernandes CNP on 06/04/23 * Telephone Encounter - Apurva Campa MD - 05/04/2023 12:46 PM EDT Patient has cystoscopy under local at [facility]. Schedule follow-up office visit with nurse practitioner in 1 month. Plan to remove catheter at the office visit at the office visit. APURVA CAMPA M.D. documented in this encounterFairfield Medical Center03-26-2024 Miscellaneous Notes* Telephone Encounter - Apurva Campa MD - 05/04/2023 2:31 PM EDT Please get me the report of CT scan of the patient that was done at [facility] APURVA CAMPA M.D. documented in this encounterFairfield Medical Center03-18-2024 NoteHNO ID: [id number] Author: APURVA CAMPA MD Service: ? Author [...] +ve, wbc and RBC Culture =-ve cytology= bloodNewark [facility]03-18-2024 History of Present illness Narrative* Apurva [...] Culture =-ve cytology= blood documented in this encounterFairfield Medical Center03-12-2024 Miscellaneous Notes* Telephone Encounter - Macy Simon - 04/20/2023 4:14 PM EDT Patient called back and confirmed date * Telephone Encounter - Macy Simon - 04/20/2023 4:07 PM EDT Left VM confirming date. * Telephone Encounter - Apurva Campa MD - 04/20/2023 12:21 AM EDT Please schedule patient for local flexible cystoscopy at [facility] on Wednesday05-04-23 Apurva Campa MD documented in this encounterFairfield Medical Center03-11-2024 History of Present illness Narrative* BlackshearaCndelaria verdinNegrita - 04/19/2023 2:40 PM EDT Carrie Fletcher [address] [facility] [address] is a 52 year old female and is here today for hydronephrosis, bladder mass at the request of Janina Hadley [address] [address] My final recommendation will be communicated back [...] On Eliquis PLAN: (Management Options): UA/culture/cytology at [facility] lab CTU, GFR 03/31/23: 66 Cystoscopy under [...] complete. Apurva Campa M.D. documented in this encounterFairfield Medical Center03-11-2024 NoteHNO ID: [id number] Author: ?, ?, ? Service: ? Author Type: ? Type: Progress Notes Filed: 04/19/2023 14:41 Note Text: Carrie Fletcher [address] [facility] [address] is a 52 year old female and is here today for hydronephrosis, bladder mass at the request of Janina Hadley [address] [facility] [address] My final recommendation will be communicated back [...] On Eliquis PLAN: (Management Options): UA/culture/cytology at [facility] lab CTU, GFR 03/31/23: 66 Cystoscopy under local in the operating room 05/04/23. Medical Decision Making: Data: Unique test result(s) reviewed: 3+ Unique test(s) ordered: 1 Risk: Moderate: Moderate risk from testing/treatment Medical Decision Making Level: 4 - Moderate By signing my name below, Negrita Haji, attest that this documentation has been prepared under the direction and in the presence of Dr. Campa. Kenisha Phelpsibhalina Provider Attestation: Apurva Haji M.D., personally performed the services described in this documentation. All medical record entries m (more content not included)... [facility]03-11-2024 Instructions* Patient Instructions* Apurva Campa MD - 04/19/2023 2:38 PM EDT UA/culture/cytology at [facility] lab Schedule CTU Surgical schedulers will call for cystoscopy under local 05/04/23 office visit post op 05-12-23 in post op slot 9:20 AM documented in this encounterFairfield Medical Center03-07-2024 NoteHNO ID: [id number] Author: JANINA HADLEY APRN.BLACK TOP ROLLER Service: ? Author Type: Nurse Practitioner Type: [...] Future Janina Hadley APRN.CNP Actionable Findings Diagnostic [place] Impression IMPRESSION: 1. Irregular echogenic material within [...] NP on 04/15/2023 4:27 PM via verbal communication.[facility]03-07-2024 History of Present illness Narrative* Janina [...] Future Janina Hadley APRN.CNP Actionable Findings Diagnostic [place] Impression IMPRESSION: 1. Irregular echogenic material within [...] PM via verbal communication. documented in this encounterFairfield Medical Center03-07-2024 NoteHNO ID: [id number] Author: DANIELLE PARIS RT(R) Service: ? Author Type: Kiln Head House Operator Type: Progress Notes Filed: 04/15/2023 13:39 [...] PATIENT PRESENTS WITH AN IMPLANTABLE OR ATTACHED DRY TRANSFER MAN: No RADIOLOGY DEPARTMENT: Ultrasound PERIPHERAL IV DATA: Not applicable SIGNED BY: RT Byron(R) April 15, 2023 1:[address] [facility]01-09-2024 Evaluation note* Encounter Date Diagnosis Assessment [...] she will drop a sample off at [facility]. If positive will call her and [...] follow up withlocal neurolgist in addition to [facility]. Feb,Spinal stenosis of thoracolumbar region (ICD-10 - M48.05) Feb,ost-menopausal (ICD-10 - Z78.0) [facility] Other 12-05-2023 Evaluation note* Encounter Date Diagnosis [...] infection (UTI) home care material was printed [facility] Other 11-13-2023 History of Present illness Narrative* [...] TIME: 12:18 PM PAGER: documented in this encounterFairfield Medical Center11-13-2023 History of Present illness Narrative* Bree Sharma [...] 21, 2022 11:48 AM documented in this encounterFairfield Medical Center10-23-2023 Evaluation note* Encounter Date Diagnosis Assessment Notes Treatment Notes Treatment Clinical Notes Nov, History of pulmonary embolism (I CD-10 - Z86.711) [facility] Other [id number] History of Present illness Narrative* Carolin Patel PA-C - 11/27/2022 6:56 AM EDT SPINE SURGERY ESTABLISHED This is a virtual visit using [employer] Zoom Video Visit. It required patient- provider interaction for the medical decision making as documented below. I have communicated my name and active licensure. The patient's identity and physical location wereverified at the time of this visit. Either the patient or their legal outbound sales representative has been informed of the [...] TIME: 6:59 AM PAGER: documented in this encounterFairfield Medical Center10-09-2023 History of Present illness Narrative* Alexis Ramos [...] 16, 2022 4:04 PM documented in this encounterFairfield Medical Center10-06-2023 NoteOccupational Therapy Adult Health Clinical Nurse Specialist Rehab 11/13. Spoke with Carrie regarding follow up with surgeon. She is pending further MRI's at this time. Will follow up to determine plan of action for [facility] goals/services. Ilsa Peralta OTR/L CDRSUniversity of Cook [facility]09-01-2023 Evaluation note* Encounter Date Diagnosis Assessment Notes Treatment Notes Treatment Clinical Notes Oct, Left foot pain (ICD-10 - M79.672 ) [facility] Other 08-17-2023 Evaluation note* Encounter Date Diagnosis Assessment Notes Treatment Notes Treatment Clinical Notes Sep, Spinal stenosis of l umbar region with neurogenic claudication (ICD- 10 - M48.062) [facility] Other 08-14-2023 History of Present illness Narrative* [...] PCP: Lon Ibrahim REFERRING PROVIDER: Bryce Lara APRN.BLACK TOP ROLLER SUBJECTIVE HISTORY OF PRESENT ILLNESS: Carrie Fletcher [...] TIME: 9:31 AM PAGER: documented in this encounterFairfield Medical Center08-03-2023 Evaluation note* Encounter Date Diagnosis Assessment Notes Treatment Notes Treatment Clinical Notes Sep, Supraventricular tachycardia (IC D-10 - I47.1) [facility] Other 2023 Evaluation note* Encounter Date Diagnosis Assessment Notes Treatment Notes Treatment Clinical Notes Aug, Left foot pain (ICD-10 - M79.672 ) Aug,Fall, initial encounter (ICD-10 - W19.XXXA) [facility] Other 07-20-2023 NoteOccupational Therapy Adult Health Clinical Nurse Specialist Rehab Spoke with Mrs. Fletcher today. States she has a LE fx and follows up with a surgeon in October. Pt is on hold at this time regarding [facility]. Advised to follow up after appointment with surgeon to determine advancement with [facility]. Ilsa Peralta OTR/L CDRSUniversity Martins [facility]erry [facility]07-17-2023 Note Occupational Therapy Adult Health Clinical Nurse Specialist Rehab Attempted to call pt 08/24 to follow up on process regarding return to [facility]. Mailbox stated full, will re attempt at a later time. Ilsa Peralta OTR/L CDRSUniversTriHealth [facility]06-21-2023 Miscellaneous Notes* Telephone Encounter - Bryce [...] answered. Bryce Lara APRN.CNP documented in this encounterFairfield Medical Center06-20-2023 Evaluation note* Encounter Date Diagnosis Assessment Notes Treatment Notes Treatment Clinical Notes Jul, Fall, subsequent encounter (ICD- 10 - W19.XXXD) [facility] Other [id number] Miscellaneous Notes* Telephone Encounter - [facility] - 07/28/2022 9:49 AM EDT Pt called; states she had EMG completed on 06/06/22 at an external facility; she will notify them tofax it to [phone]. documented in this encounterFairfield Medical Center06-14-2023 Miscellaneous Notes* Telephone Encounter - Bryce Lara [...] for review. Donna Pal documented in this encounterFairfield Medical Center06-09-2023 Miscellaneous Notes* Telephone Encounter - Donna Pal - 07/17/2022 12:53 PM EDT Received the following record(s) via Fax. -MRI Cervical Spine WO Contrast Date 05/18/22 Sending images over through PACS. Record(s) scanned into pt's chart. Donna Pal documented in this encounterFairfield Medical Center05-15-2023 History of Present illness Narrative* Danielle Alarcon [...] 2nd opinion: no Prior spine [place]: [place] [id number] CMT: PT Gabapentin Tylenol Studies (Reports unless [...] Health Provider or Pain Management Provider at [facility]? No If answer is YES please schedule [...] the facility where the MRI/CT/myelogram was completed: [address] , [place] [address] MRI/CT/myelogram viewable in Epic: No If not, please provide [phone] to fax in imaging reports for review. [...] and/or physical therapy was completed PT: [facility] [address] [place] [address] Have you tried any other kinds of [...] facility/address of where the surgery was completed: [facility] [address] [place] [address] Additional Comments [phone] documented in this encounterFairfield Medical Center02-16-2023 Evaluation note* Encounter Date Diagnosis Assessment Notes [...] evaluation and recommendation. Neurosurgeon Dr.Deborah Eubanks recommended. Mar,/P cervical spinal fusion (ICD-10 - Z98.1) The [...] as scheduled. Mar,rm weakness (ICD-10 - R29.898) [facility] Other 01-19-2023 Evaluation note* Encounter Date Diagnosis [...] neuropathy symptoms. Prevous surgery and followed by [facility]. I encouraged her tohave rehab [...] above regimen and urologists plan of care. [facility] Other 01-17-2023 Hospital Discharge instructions Patient Education [...] Treatment for this condition includes: Antibiotic medicine. Ohxf-pzn-zmjdkco medicines to treat discomfort. Drinking enough water [...] Follow these instructions at home: Medicines Take wxcw-lax-xvmnung and prescription medicines only as told by [...] 11/04/2005 Document Revised: 01/12/2019 Document Reviewed: 08/04/2018 [employer] Patient Education 2020 [employer]. Follow Up Care 12/30/2021 09:59:20 With:YECENIA FOLEY, Nicole Garcia, URL Address: [address] [place] [address]- When: Unknown [facility] 11-02-2022 Note [id number] 10-24-2021 Evaluation note* Encounter Date Diagnosis [...] the above medication. Oct,Hyperlipidemia (ICD-10 - E78.5) [facility] Other 09-06-2022 Evaluation note* Encounter Date Diagnosis Assessment Notes Treatment Notes Treatment Clinical Notes Oct, S/P bariatric surgery (ICD-10 - Z98.84) Oct,ietary counseling and surveillance (ICD-10 - Z71.3) [facility] Other 09-02-2022 Evaluation note* Encounter Date Diagnosis Assessment Notes Treatment Notes Treatment Clinical Notes Oct, Vitamin D deficiency (ICD-10 - E 55.9) Oct,Hyperlipidemia (ICD-10 - E78.5) Oct,Hyperglycemia (ICD-10 - R73.9) [facility] Other 08-09-2022 Hospital Discharge instructions Patient Education 09/16/2021 08:40:56 Urinary Tract Infection, Adult, Tlif-yq-Yiio Urinary Tract Infection, Adult A urinary tract [...] Follow these instructions at home: Medicines Take bzqs-llt-galniez and prescription medicines only as told by [...] 07/13/2008 Document Revised: 01/12/2019 Document Reviewed: 08/04/2018 [employer] Patient Education 2020 [employer]. Follow Up Care 07/21/2021 15:16:53 With:Linden Villarreal MD, Mihir Delgadillo, URO Address: [facility] [address] [place] [address]- [phone] When: Unknown Comments:schedule [employer] [facility] [place] 06-01-2022 Hospital Discharge instructions Patient Education [...] fried and sweet foods. General instructions Take xoal-hxq-zzdtjdp and prescription medicines only as told by [...] 11/21/2009 Document Revised: 05/18/2019 Document Reviewed: 02/10/2018 [employer] Patient Education 2020 [employer] Follow Up Care 03/20/2021 09:54:04 With:ANGELITA PAEZ PA-C, URL Address: [address] [place] [address] When: Unknown [facility] 06-01-2022 Evaluation + Plan note Diagnostic Tests Pending * Urine Culture 07/09/21 [facility]05-24-2022 Evaluation note* Encounter Date Diagnosis Assessment Notes Treatment Notes Treatment Clinical Notes June, Supraventricular tachycardia (IC D-10 - I47.1) [facility] Other 04-04-2022 Evaluation note* Encounter Date Diagnosis Assessment Notes Treatment Notes Treatment Clinical Notes May, History of pulmonary embolus (PE ) (ICD-10 - Z86.711) [facility] Other 03-03-2022 Evaluation note* Encounter Date Diagnosis Assessment Notes Treatment Notes Treatment Clinical Notes Apr, Neuropathic pain (ICD-10 - M79.2 ) [facility] Other 01-17-2022 Evaluation note* Encounter Date Diagnosis Assessment Notes Treatment Notes Treatment Clinical Notes Feb, Neuropathic pain (ICD-10 - M79.2 ) [facility] Other 02-04-2021 NoteMR#: [id number] [facility] Pt. Name: Carrie Fletcher Admitted: 03/12/2020 Discharged: [...] status post gastric bypass surgery, transferred from [facility] on 12/06/2019 for management of septic [...] Piedra MD Date Trans: 03/14/2020 09:42 A/adi [id number] cc: Lon Ibrahim M.D. [place] [address] [address] [facility] [address] History general Narrative - Reported* Type Description Date Medical History mammogram at age 34 Medical HistoryFractured left armMedical HistoryFracture of footMedical History Fracture of footMedical HistoryEGDMedical Jvrwywg36/2017 MammogramMedical HistoryosteoarthritisMedical Historyspinal stenosisMedical Historylymphadema Medical HistorysepsisMedical HistoryobesityMedical HistorydiverticulitisMedical Historygastric bipass 06/2017Medical HistoryPulmonary embolism 08/2018Medical HistoryLexiscan 02/29/20 NormalSurgical HistoryJawSurgical Historytonsillectomy and adenoidectomySurgical Historygastric bipass06/2017Surgical Historycervical fusion08/2018Surgical Historylipectomy w/ Dr. Smallwood/urgical History Cholecystecomy03/2019 [facility] Other 07-01-2017 History general Narrative - Reported* Type Description Date Medical History mammogram at age 34 Medical HistoryFractured left armMedical HistoryFracture of footMedical History Fracture of footMedical HistoryEGDMedical Bwztyeo90/2017 MammogramMedical HistoryosteoarthritisMedical Historyspinal stenosisMedical Historylymphadema Medical HistorysepsisMedical HistoryobesityMedical HistorydiverticulitisMedical Historygastric bipass 06/2017Medical HistoryPulmonary embolism 08/2018Medical HistoryLexiscan 02/29/20 NormalSurgical HistoryJawSurgical Historytonsillectomy and adenoidectomySurgical Historygastric bipass06/2017Surgical Historycervical fusion08/2018Surgical Historylipectomy w/ Dr. Smallwood/urgical History Cholecystecomy03/2019Hospitalization HistorySee Above [employer] Other Evaluation + Plan note No data available for this section [facility] evaluation + Plan note Future Appointments Appointment Date:05/26/2022 09:15:00 AM Scheduled Provider:Nicole KEENE MD Location:[facility] Appointment Type:URO Office Visit [facility] Evaluation + Plan note Future Appointments Appointment Date:05/26/2022 09:15:00 AM Scheduled Provider:Nicole KEENE MD Location:[facility] Appointment Type:URO Office Visit Diagnostic Tests Pending * Urine Culture 02/24/22 [facility] noteNo [facility] [employer] Other Evaluation noteNo assessment information available [facility] Work Phone: Evaluation note* Diagnosis Cervical myelopathy (HCC) Cervical spondylosis with myelopathy documented in this encounter [facility] [employer] Phone: evaluation note* Diagnosis S/P cervical spinal fusion- Primary Arthrodesis status 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) documented [facility] encounter [facility] Diagnosis Spinal stenosis, cervical region documented in this encounter [facility] Phone: evaluation note* Diagnosis Cervical disc disorder [...] unspecified hydronephrosis type documented [facility] encounter [facility]* Diagnosis Bilateral hydronephrosis- Primary Hydronephrosis Bladder mass Other specified disorders of bladder Hydronephrosis, unspecified hydronephrosis type Mild protein-calorie malnutrition (HCC) Malnutrition of mild degree Morbid (severe) obesity due to excess calories (HCC) documented in this encounter [facility]* Diagnosis 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 of unspecified nature of bladder documented in this encounter [facility]* Diagnosis Hydronephrosis, unspecified hydronephrosis type documented in this encounter [facility]* Diagnosis Hydronephrosis, unspecified hydronephrosis type- Primary Urinary tract infection without hematuria, site unspecified documented in this encounter [facility]* Diagnosis Hydronephrosis, unspecified hydronephrosis type documented in this encounter [facility]* Diagnosis Hydronephrosis, unspecified hydronephrosis type- Primary Bladder wall thickening Other specified disorders of bladder Neurogenic bladder Neurogenic bladder, NOS documented in this encounter [facility] note* Diagnosis Onset Date Resolution Status Cervical myelopathy acuteDecreased activities of daily living (ADL)acuteDegenerative lumbar disc acuteHyperlipidemiaacuteLeft foot dropacuteLumbar radiculopathyacuteObesity chronic [facility] Work Phone: Evaluation note* Diagnosis Onset Date Resolution Status Cervical myelopathy acuteDecreased activities of daily living (ADL)acuteDegenerative lumbar disc acuteHyperlipidemiaacuteLeft foot dropacuteLumbar radiculopathyacuteShakiness acuteObesitychronic [facility] Work Phone: Evaluation note* Diagnosis Onset Date Resolution Status Cervical myelopathy acuteDecreased activities of daily living (ADL)acuteDegenerative lumbar disc acuteHyperlipidemiaacuteLeft foot dropacuteLumbar radiculopathyacuteShakiness acuteObesitychronicImpaired mobilityacute [facility] Work Phone: Evaluation note* Diagnosis Spinal stenosis, lumbar region with neurogenic claudication- Primary Spinal stenosis of cervical region Spinal stenosis in cervical region S/P cervical spinal fusion Arthrodesis status documented in this encounter [facility]* Diagnosis Onset Date Resolution Status Admit Date Chronic UTI acuteNovember 2024 1:07pmDecreased mobilityacuteNovember 2024 1:07pm Lumbar radiculopathyacuteNovember 2024 1:07pmSkin breakdownacuteNovember 2024 1:07pm [facility] Work Phone: Hospital Discharge instructions No data available for this section [facility] No data available for this section [facility] reason for referral (narrative)* Outpatient Procedure (Routine) - Pending ReviewSpecialtyDiagnoses / ProceduresReferred By Contact Referred To [facility]NE[facility] Diagnoses Cervical disc disorder with radiculopathy Right arm weakness Procedures EMG(NEURO/NI) NERVE CONDUCTION STUDIES 9-10 STUDIES Bryce Lara APRN.CNP [address] [place] [address] Neu[facility] [place] [address] [place] [address] Referral IDStatMer[facility] DateExpiration DateVisits RequestedVisits [id number] Review Auto-Generated Referral [facility] for referral (narrative)* Diagnostic Procedure Only (Routine) - ClosedSpecialtyDiagnoses / ProceduresReferred By ContactReferred To ContactXR IMAGING Diagnoses Spinal stenosis of lumbar region, unspecified whether neurogenic claudication present Procedures XR SCOLIOSIS PA STAND/LAT 2V RADEX ENTIR THRC LMBR CRV SAC SPI W/SKULL 2/3 VW Moises Willis MD [address] [place] [address] Xr Imaging Referral IDStatusReasonStart DateExpiration DateVisits RequestedVisits [id number] Auto-Generated Referral * MRI/CT (Routine) - AuthorizedSpecialtyDiagnoses / ProceduresReferred By ContactReferred To ContactMR IMAGING Diagnoses Spinal stenosis of lumbar region, unspecified whether neurogenic claudication present Procedures MRI LUMBAR SPINE WO IVCON MRI SPINAL CANAL LUMBAR W/O CONTRAST MATERIAL Moises Willis MD [address] [place] [address] Mr Imaging Referral IDStatusReasonStart DateExpiration DateVisits RequestedVisits [id number] Auto-Generated Referral * MRI/CT (Routine) - AuthorizedSpecialtyDiagnoses / ProceduresReferred By ContactReferred To ContactMR IMAGING Diagnoses Spinal stenosis of lumbar region, unspecified whether neurogenic claudication present Procedures MRI THORACIC SPINE WO IVCON MRI SPINAL CANAL THORACIC W/O CONTRAST MATRL Moises Willis MD [address] [place] [address] Mr Imaging Referral IDStatusReasonStratton DateExpiration DateVisits RequestedVisits [id number] Auto-Generated Referral [facility] for referral (narrative)* Diagnostic Procedure Only (Routine) - ClosedSpecialtyDiagnoses / ProceduresReferred By ContactReferred To ContactXR IMAGING Diagnoses Spinal stenosis of lumbar region, unspecified whether neurogenic claudication present Procedures XR SCOLIOSIS PA STAND/LAT 2V RADEX ENTIR THRC LMBR CRV SAC SPI W/SKULL 2/3 VW Moises Willis MD [address] [place] [address] Xr Imaging Referral IDStatusReasonStwinston DateExpiration DateVisits RequestedVisits [id number] Auto-Generated Referral / [facility] (narrative)* Diagnostic Procedure Only (Routine) - ClosedSpecialtyDiagnoses / ProceduresReferred By ContactReferred To ContactXR IMAGING Diagnoses Spinal stenosis, lumbar region with neurogenic claudication Procedures XR LUMBAR MOTION 4V AP/LAT/ FLEX/EXT RADEX SPINE LUMBOSACRAL MINIMUM 4 VIEWS Carolin Patel PA-C [address] [phone] Xr Imaging [place] [address] Referral IDStatusReasonStratton DateExpiration DateVisits RequestedVisits [id number] Auto-Generated Referral / [facility] for referral (narrative)* Diagnostic Procedure Only (Routine) - ClosedSpecialtyDiagnoses / ProceduresReferred By ContactReferred To ContactUS IMAGING Diagnoses Abnormal finding of diagnostic imaging Hydronephrosis, unspecified hydronephrosis type Procedures US KIDNEY/BLADDER US RETROPERITONEAL REAL TIME W/IMAGE COMPLETE aJnina Hadley APRN.BLACK TOP ROLLER [address] [place] [address] Us Imaging [place] [address] Referral IDStausCentra Health DateExpiration DateVisits RequestedVisits [id number] Auto-Generated Referral / [facility] for referral (narrative)* Diagnostic Procedure Only (Routine) - ClosedSpecialtyDiagnoses / ProceduresReferred By ContactReferred To ContactUS IMAGING Diagnoses Hydronephrosis, unspecified hydronephrosis type Procedures US KIDNEY/BLADDER US RETROPERITONEAL REAL TIME W/IMAGE COMPLETE Apurva Campa MD [address] [place] [address] Us Imaging [place] [address] Referral IDStatusReasonStart DateExpiration DateVisits RequestedVisits [id number] Auto-Generated Referral [facility] for referral (narrative)* Diagnostic Procedure Only (Routine) - AuthorizedSpecialtyDiagnoses / ProceduresReferred By Contact Referred To ContactUS IMAGING Diagnoses Hydronephrosis, unspecified hydronephrosis type Procedures US PELVIS BLADDER US PELVIC NONOBSTETRIC IMAGE DCMTN LIMITED/F/U Heather Fernandes APRN.BLACK TOP ROLLER [address] [place] [address] Us Imaging [place] [address] Referral IDStatusReasonStart DateExpiration DateVisits RequestedVisits [id number] Auto-Generated Referral * Diagnostic Procedure Only (Routine) - AuthorizedSpecialtyDiagnoses / ProceduresReferred By ContactReferred To ContactUS IMAGING Diagnoses Hydronephrosis, unspecified hydronephrosis type Procedures US KIDNEY/BLADDER US RETROPERITONEAL REAL TIME W/IMAGE COMPLETE Heather Fernandes APRN.BLACK TOP ROLLER [address] [place] [phone] Us Imaging [place] [address] Referral IDStatusReasonStart DateExpiration DateVisits RequestedVisits [id number] Auto-Generated Referral [facility] for referral (narrative)* Diagnostic Procedure Only (Routine) - ClosedSpecialtyDiagnoses / ProceduresReferred By ContactReferred To ContactUS IMAGING Diagnoses Hydronephrosis, unspecified hydronephrosis type Procedures US KIDNEY/BLADDER US RETROPERITONEAL REAL TIME W/IMAGE COMPLETE Heather Fernandes APRN.BLACK TOP ROLLER [address] [place] [phone] Us Imaging [place] [address] Referral IDStatusReasonStart DateExpiration DateVisits RequestedVisits [id number] Auto-Generated Referral / [facility] for referral (narrative)* Diagnostic Procedure Only (Routine) - AuthorizedSpecialtyDiagnoses / ProceduresReferred By Contact Referred To ContactUS IMAGING Diagnoses Hydronephrosis, unspecified hydronephrosis type Procedures US KIDNEY/BLADDER US RETROPERITONEAL REAL TIME W/IMAGE COMPLETE Heather Fernandes APRN.MERLYN [address] [place] [address] Us Imaging [place] [address] Referral IDStatusReasonStwinston DateExpiration DateVisits RequestedVisits [id number] Auto-Generated Referral / [facility] for referral (narrative)No reason for referral information availableDay[facility] Work Phone[facility] Narrative* Diagnostic Procedure Only (Routine) - ClosedSpecialtyDiagnoses / ProceduresReferred By ContactReferred To ContactXR IMAGING Diagnoses Spinal stenosis of lumbar region, unspecified whether neurogenic claudication present Procedures XR SCOLIOSIS PA STAND/LAT 2V RADEX ENTIR THRC LMBR CRV SAC SPI W/SKULL 2/3 Moises Snyder MD [address] [place] [place] [phone] Xr Imaging Referral IDStatusReasonStart DateExpiration DateVisits RequestedVisits [id number] Auto-Generated Referral / [facility] for visit Narrative* Diagnostic Procedure Only (Routine) - ClosedSpecialtyDiagnoses / ProceduresReferred By ContactReferred To Contact US IMAGING Diagnoses Abnormal finding of diagnostic imaging Hydronephrosis, unspecified hydronephrosis type Procedures US KIDNEY/BLADDER US RETROPERITONEAL REAL TIME W/IMAGE COMPLETE Janina Hadley, AUTOMOTIVE FINANCE MANAGER.BLACK TOP ROLLER [address] [place] [phone] Us Imaging [place] [address] Referral IDStatusReasonStart DateExpiration DateVisits RequestedVisits [id number] Auto-Generated Referral / [facility] for visit Narrative* Diagnostic Procedure Only (Routine) - ClosedSpecialtyDiagnoses / ProceduresReferred By ContactReferred To Contact US IMAGING Diagnoses Hydronephrosis, unspecified hydronephrosis type Procedures US KIDNEY/BLADDER US RETROPERITONEAL REAL TIME W/IMAGE COMPLETE Apurva Campa MD [address] [place] [address] Us Imaging [place] [address] Referral IDStatusReasonStwinston DateExpiration DateVisits RequestedVisits [id number] Auto-Generated Referral [facility] for visit Narrative* Diagnostic Procedure Only (Routine) - ClosedSpecialtyDiagnoses / ProceduresReferred By ContactReferred To Contact US IMAGING Diagnoses Hydronephrosis, unspecified hydronephrosis type Procedures US KIDNEY/BLADDER US RETROPERITONEAL REAL TIME W/IMAGE COMPLETE Heather Fernandes, AUTOMOTIVE FINANCE MANAGER.BLACK TOP ROLLER [address] [place] [place] [phone] Us Imaging [place] [address] Referral IDStatusReasonStart DateExpiration DateVisits RequestedVisits [id number] Auto-Generated Referral / [facility] Summary Purpose Family History No Family History [...] grandparentHeart diseaseUnknowngrandparentDiabetes mellitusUnknowngrandparent DeceasedUnknownDiabetes mellitusUnknownmotherHypertensionUnknown Advance Directives No Advanced Directives Records FoundDocuments on File TypeDate RecordedPatient RepresentativeExplanationAdvance Directives and Living WillPower of AttorneyCode StatusDate ActivatedDate InactivatedCommentsFull Code 09/03/2018 3:56 AM09/07/2018 2:02 AMFull Code09/03/2018 3:56 AM09/03/2018 3:56 AM Full Code08/30/2018 10:15 PM08/31/2018 8:47 PMFull Code08/30/2018 10:07 PM08/30/2018 10:15 PMFull Code06/21/2017 2:09 PM06/25/2017 12:45 AM Advance Directive Response Recorded Date/ Time Advance Directives No October, 2016 9:10am Code StatusDate ActivatedDate InactivatedCommentsFull Code09/03/2018 3:56 [...] drop Lumbar radiculopathy Shakiness Obesity Impaired mobility Reason for Visit Admit Date Chronic UTI December 13, 2024 1 :07pm Decreased mobility December 13, 2024 1 :07pm Lumbar radiculopathy December 13, 2024 1:07pm Skin breakdown December 13, 2024 1 :07pm Reason for Referral SpecialtyDiagnoses / ProceduresReferred By ContactReferred To ContactCT IMAGING Diagnoses Hydronephrosis, unspecified hydronephrosis type Procedures CT UROGRAM WO/W IVCON CT ABD & PELVIS W/WO CONTRST 1+ BODY REGApurva Mccain MD [address] [place] [address] [place] [address] Referral IDStatusReasonStart DateExpiration DateVisits RequestedVisits [id number] Review Auto-Generated Referral [id number] / ProceduresReferred By ContactReferred To ContactUrology Diagnoses Other hydronephrosis Bladder mass Procedures CONSULT TO UROLOGY OFFICE/OUTPATIENT [facility] 60 MINUTES Janina Hadley APRN.BLACK TOP ROLLER [address] [place] [phone] Referral IDStatusReasonStart DateExpiration DateVisits RequestedVisits [id number] PCP Requested Referral /[id number] / ProceduresReferred By ContactReferred To ContactMR IMAGING Diagnoses Spinal stenosis of lumbar region, unspecified whether neurogenic claudication present Procedures MRI LUMBAR SPINE WO IVCON MRI SPINAL CANAL LUMBAR W/O CONTRAST MATERIAL Moises Willis MD [address] [place] [address] Mr Imaging [place] [address] Referral IDStatusReasonStart DateExpiration DateVisits RequestedVisits [id number] Auto-Generated Referral /[id number] / ProceduresReferred By ContactReferred To ContactMR IMAGING Diagnoses Spinal stenosis of lumbar region, unspecified whether neurogenic claudication present Procedures MRI THORACIC SPINE WO IVCON MRI SPINAL CANAL THORACIC W/O CONTRAST MATRL Moises Willis MD [address] [place] [address] Mr Imaging [place] [address] Referral IDStatusReasonStart DateExpiration DateVisits RequestedVisits [id number] Auto-Generated Referral /[id number] / ProceduresReferred By ContactReferred To ContactCT IMAGING Diagnoses Spinal stenosis of lumbar region with neurogenic claudication Procedures CT LUMBAR SPINE WO IVCON CT LUMBAR SPINE W/O CONTRAST MATERIAL Carolin Patel PA-C [address] [place] [address] Ct Imaging [place] [address] Referral IDStatusReasonStart DateExpiration DateVisits RequestedVisits [id number] Review Auto-Generated Referral /[id number] / ProceduresReferred By ContactReferred To ContactXR IMAGING Diagnoses Spinal stenosis, lumbar region with neurogenic claudication Procedures XR LUMBAR MOTION 4V AP/LAT/ FLEX/EXT RADEX SPINE LUMBOSACRAL MINIMUM 4 VIEWS Carolin Patel PA-C [address] [place] [address] Xr Imaging [place] [address] Referral IDStatusReasonStart DateExpiration DateVisits RequestedVisits [id number] Review Auto-Generated Referral /[id number] / ProceduresReferred By ContactReferred To Contact Diagnoses Spinal stenosis in cervical region Arm weakness Procedures CONSULT TO SPINE SURGERY OFFICE/OUTPATIENT [facility] 60-74 MINUTES Bryce Lara APRN.MERLYN [facility] [place] [address] Referral IDStatusReasonStart DateExpiration DateVisits RequestedVisits [id number] PCP Requested Referral /[id number] / ProceduresReferred By ContactReferred To ContactRadiology Diagnoses Spinal stenosis, cervical region Procedures CT CERVICAL SPINE WO CONTRAST Bryce Lara APRN - [facility] [address] [facility], [address] [place] [address] Referral IDStatusReasonStart DateExpiration DateVisits RequestedVisits [id number]/5/20236/313629LampsdfdvCvxkazjcc / ProceduresReferred By ContactReferred To ContactRadiology Diagnoses Cervical myelopathy (HCC) Procedures MRI CERVICAL SPINE WO CONTRAST Lon Antonio, DO [address] [place] [address] Referral IDStatusReasonStart DateExpiration DateVisits RequestedVisits [id number]/27/20233/ Reason consult and treat Diagnosis 1 Spinal stenosis of l umbar region with neurogenic claudication (M48.062) Referral Organization [facility] Family Medicbroderick e Spiro Referring Provider First Name Lon Referring Provider Last Name Evelia Referring Provider Specialty Family Prac cleo Referred Organization [facility] urosurgery Referred Provider Caprice Eubanks Referred Address [address] [address] ,[place], [place],[address] Referred Provider Specialty Neurological Surgery Referral Priority [...] section and content) DATE CREATED AUTHOR 07/17/2018 [facility] DATE CREATED AUTHOR AUTHOR'S ORGANIZ ATION 12/30/2018 [facility] DATE CREATED AUTHOR AUTHOR'S ORGANIZ ATION 12/31/2018 [facility] DATE CREATED AUTHOR AUTHOR'S ORGANIZ ATION 12/29/2020 [facility] DATE CREATED AUTHOR AUTHOR'S ORGANIZ ATION 04/10/2022 [facility] DATE CREATED AUTHOR AUTHOR'S ORGANIZ ATION 06/24/2022 [facility] DATE CREATED AUTHOR AUTHOR'S ORGANIZ ATION 07/20/2022 [facility] DATE CREATED AUTHOR AUTHOR'S ORGANIZ ATION 05/19/2023 [facility] DATE CREATED AUTHOR AUTHOR'S ORGANIZ ATION 01/25/2024 [facility] DATE CREATED AUTHOR AUTHOR'S ORGANIZ ATION 12/22/2024 [facility] REASON FOR VISIT (unrecogniz ed section and content) SpecialtyDiagnoses / ProceduresReferred By ContactReferred To ContactRadiology Diagnoses Cervical myelopathy (HCC) Procedures MRI CERVICAL SPINE WO CONTRAST Lon Antonio DO [address] [place] [address] Referral IDStatusReasonStart DateExpiration DateVisits RequestedVisits [id number]//[id number] / Procedures Referred By ContactReferred To ContactRadiology Diagnoses Spinal stenosis, cervical region M48.02 (ICD-10-CM) - Spinal stenosis, cervical region Procedures CT CERVICAL SPINE WO CONTRAST CHG CT CERVICAL SPINE W/O CONTRAST MATERIAL 91027 - CHG CT CERVICAL SPINE W/O CONTRAST MATERIAL Lon Ibrahim, Mthz [address] [place] [address] Referral IDStatusReasonStart DateExpiration DateVisits RequestedVisits [id number] Review/[id number]l CommentsMRI ReportReasonCommentsPatient UpdateReasonCommentsNew PatientSpecialty Diagnoses / ProceduresReferred By ContactReferred To Contact Diagnoses Spinal stenosis in cervical region Arm weakness Procedures CONSULT TO SPINE SURGERY OFFICE/OUTPATIENT [facility] 60-74 MINUTES Bryce Lara APRN.MERLYN [address] [place] [phone] Referral IDStatusReasonStratton DateExpiration DateVisits RequestedVisits [id number] PCP Requested Referral /[id number]r PatientSpecialtyDiagnoses / ProceduresReferred By ContactReferred To ContactMR IMAGING Diagnoses Spinal stenosis of lumbar region, unspecified whether neurogenic claudication present Procedures MRI THORACIC SPINE WO IVCON MRI SPINAL CANAL THORACIC W/O CONTRAST Moises Lynch MD [address] [place] [address] Mr Imaging [place] [address] Referral IDStatusReasonStart DateExpiration DateVisits RequestedVisits [id number] Auto-Generated Referral /[id number]i PatientFollow UpSpecialtyDiagnoses / ProceduresReferred By ContactReferred To ContactNeurosurgery / SPINE SURGERY Diagnoses Spinal stenosis of lumbar region with neurogenic claudication Procedures EST NI PATIENT Moises Willis MD [address] [place] [address] Moises Willis MD [address] [place] [address] Referral IDStatusReasonStart DateExpiration DateVisits RequestedVisits [id number]/13/202312/343126IgmtbtGhwaqnbpDyebd [address] SpecialtyDiagnoses / ProceduresReferred By ContactReferred To ContactXR IMAGING Diagnoses Spinal stenosis, lumbar region with neurogenic claudication Procedures XR LUMBAR MOTION 4V AP/LAT/ FLEX/EXT RADEX SPINE LUMBOSACRAL MINIMUM 4 VIEWS Carolin Patel PA-C [address] [place] [address] Xr Imaging [place] [address] Referral IDStatusReasonStwinston DateExpiration DateVisits RequestedVisits [id number] Auto-Generated Referral /[id number] ReviewReasonCommentsConsult SpecialtyDiagnoses / ProceduresReferred By ContactReferred To ContactUrology Diagnoses Other hydronephrosis Bladder mass Procedures CONSULT TO UROLOGY OFFICE/OUTPATIENT [facility] 60 MINUTES Janina Hadley, AUTOMOTIVE FINANCE MANAGER.BLACK TOP ROLLER [address] [place] [address] Referral IDStatusReasonStwinston DateExpiration DateVisits RequestedVisits [id number] PCP Requested Referral /[id number] UpReasonCommentsFollow UpSpecialty Diagnoses / ProceduresReferred By ContactReferred To ContactUrology / UROLOGY Diagnoses Unspecified hydronephrosis f/u after US Return in about 1 month (around 07/04/2023) for rto for evaluation of hydro with US prior . Procedures OFFICE/OUTPATIENT NEW HIGH MDM 60 MINUTES OFFICE/OUTPATIENT ESTABLISHED HIGH MDM 40 MIN Lon Manrique [address] [place] [address] Heather Fernandes, AUTOMOTIVE FINANCE MANAGER.BLACK TOP ROLLER [address] [place] [address] Referral IDStatusReasonStart DateExpiration DateVisits RequestedVisits [id number]/1/202412/31/29630982SwkpscJsifiadrUcmsss Up Care Team (unrecognized sect ion and content) Team Status: Active Member Role Status Dates Lon Ibrahim DO Primary Care Provider Active Team Status: Inactive Member Role Status Dates Kelly Mcdowell APRN Attending Provider Active Team Status: Inactive Member Role Status Dates Lon Ibrahim DO Primary Care Provider, Attending Provi kenneth Active Team MemberRelationshipSpecialtyStart DateEnd Date Lon Ibrahim, DO PCP - GeneralFamily Medicine02/23/19Team MemberRelationshipSpecialtyStart DateEnd Date Lon Ibrahim [address] [facility] [place] [address] PCP - GeneralFamily Medicine06/05/22 Ann Marie Mccord, BLACK TOP ROLLER [address] [place] [address] ReferringFamily Medicine06/19/22Team MemberRelationshipSpecialtyStart DateEnd Date Lon Ibrahim DO PCP - GeneralFamily Medicine02/23/19Team MemberRelationshipSpecialtyStart DateEnd Date Lon Ibrahim [address] [facility] [place] [address] PCP - GeneralFamily Medicine06/05/22 Ann Marie Mccord, BLACK TOP ROLLER [address] [place] [address] ReferringFamily Medicine06/19/22Team MemberRelationshipSpecialtyStart DateEnd Date Lon Ibrahim [address] [place] [address] PCP - GeneralFamily Medicine06/05/22 Ann Marie Mccord, BLACK TOP ROLLER [address] [place] [address] ReferringFamily Medicine06/19/22Team MemberRelationshipSpecialtyStart DateEnd Date Lon Ibrahim [address] [place] [address] PCP - GeneralFamily Medicine06/05/22 Ann Marie Mccord, BLACK TOP ROLLER [address] [place] [address] ReferringFamily Medicine06/19/22Team MemberRelationshipSpecialtyStart DateEnd Date Lon Ibrahim [address] [place] [address] PCP - GeneralFamily Medicine06/05/22 Ann Marie Mccord, MERLYN [address] [place] [address] ReferringFamily Medicine06/19/22Team MemberRelationshipSpecialtyStart DateEnd Date Lon Ibrahim [address] [place] [address] PCP - GeneralFamily Medicine06/05/22 Ann Marie Mccord, MERLYN [address] [place] [address] ReferringFamily Medicine06/19/22Team MemberRelationshipSpecialtyStart DateEnd Date Lon Ibrahim [address] [place] [phone] PCP - GeneralFamily Medicine06/05/22 Ann Marie Mccord CNP [address] [address] [place] [address] ReferringFamily Medicine06/19/22Team MemberRelationshipSpecialtyStart DateEnd Date Lon Ibrahim [address] [place] [phone] PCP - GeneralFamily Medicine06/05/22 Ann Marie Mccord CNP [address] [place] [address] [place], [place] [phone] ReferringFamily Medicine06/19/22Team MemberRelationshipSpecialtyStart DateEnd Date Lon Ibrahim [address] [place] [address] PCP - GeneralFamily Medicine06/05/22 Ann Marie Mccord CNP [address] [place] [address] ReferringFamily Medicine06/19/22Team MemberRelationshipSpecialtyStart DateEnd Date Lon Ibrahim [address] [place] [address] PCP - GeneralFamily Medicine06/05/22 Ann Marie Mccord, MERLYN [address] [facility] [address] [place] [address] ReferringFamily Medicine06/19/22Team MemberRelationshipSpecialtyStart DateEnd Date Lon Ibrahim [address] [place] [address] PCP - GeneralFamily Medicine06/05/22 Ann Marie Mccord, MERLYN [address] [phone] ReferringFamily Medicine06/19/22Team MemberRelationshipSpecialtyStart DateEnd Date Lon Ibrahim [address] [place] [address] PCP - GeneralFamily Medicine06/05/22 Ann Marie Mccord, BLACK TOP ROLLER [address] [place] [phone] ReferringFamily Medicine06/19/22Team MemberRelationshipSpecialtyStart DateEnd Date Lon Ibrahim [address] [place] [address] PCP - GeneralFamily Medicine06/05/22 Ann Marie Mccord, BLACK TOP ROLLER [address] [place] [phone] ReferringFamily Medicine06/19/22Team MemberRelationshipSpecialtyStart DateEnd Date Lon Ibrahim [address] [place] [address] PCP - GeneralFamily Medicine06/05/22 Ann Marie Mccord, MERLYN [address] [facility] [address] [place], [place] [phone] ReferringFamily Medicine06/19/22Team MemberRelationshipSpecialtyStart DateEnd Date Lon Ibrahim [address] [place] [address] PCP - GeneralFamily Medicine06/05/22 Ann Marie Mccord, MERLYN [address] [facility] [address] [place] [address] ReferringFamily Medicine06/19/22Team MemberRelationshipSpecialtyStart DateEnd Date Lon Ibrahim [address] [place] [address] PCP - GeneralFamily Medicine06/05/22 Ann Marie Mccord, MERLYN [address] [facility] [address] [place] [address] ReferringFamily Medicine06/19/22Team MemberRelationshipSpecialtyStart DateEnd Date Lon Ibrahim [address] [place] [address] PCP - GeneralFamily Medicine06/05/22 Ann Marie Mccord, MERLYN [address] [facility] [address] [place] [address] ReferringFamily Medicine06/19/22Team MemberRelationshipSpecialtyStart DateEnd Date Lon Ibrahim [address] [place] [address] PCP - GeneralFamily Medicine06/05/22 Ann Marie Mccord, MERLYN [address] [place] [address] ReferringFamily Medicine06/19/22Team MemberRelationshipSpecialtyStart DateEnd Date Lon Ibrahim [address] [place] [phone] PCP - GeneralFamily Medicine06/05/22 Ann Marie Mccord, MERLYN [address] [facility] [address] [place] [address] [facility] Team Status: Inactive Member Role Status [...] End: October 06, 2023Team MemberRelationshipSpecialtyStart DateEnd Date Lon Ibrahim [address] [facility] [place] [place] [address] PCP - [facility] Medicine06/05/22 Ann Marie Mccord CNP [address] [facility] [address] [place] [address] [facility]06/19/22 Team Status: Active Member Role/Relationship Status [...] 2024 End: December 13, 2024 Team Status: Inactive Member Role/Relationship Status Dates Lon Ibrahim DO Primary Care Provider Active Sta rt: December 13, 2024 End: December 13rose Ibrahim DOAttending ProviderActiveStart: December 13, 2024 End: December 13, 2024 Team Status: Active Member Role/Relationship Status Dates Lon Ibrahim DO Primary Care Provider Active Sta rt: December 14, 2024 Lon Ibrahim DOAttending ProviderActiveStart: December 14, 2024 Goals (unrecognized section and content) Goals may be documented in a n alternate section Source Comments (unrecognize d section and content) In the event this informatio n is protected by the Federal Confidentiality of Alcohol and Drug Abuse Patient Records regulations: The Federal rules restrict any use of the information to criminally investigate or prosecute any alcohol or drug abuse patient.[facility] Center[facility] the event this information is protected by the Federal Confidentiality of Alcohol and Drug Abuse Patient Records regulations: The Federal rules restrict any use of the information to criminally investigate or prosecute any alcohol or drug abuse patient.[facility] CenterIn the event this information is protected by the Federal Confidentiality of Alcohol and Drug Abuse Patient Records regulations: The Federal rules restrict any use of the information to criminally investigate or prosecute any alcohol or drug abuse patient.[facility] CenterIn the event this information is protected by the Federal Confidentiality of Alcohol and Drug Abuse Patient Records regulations: The Federal rules restrict any use of the information to criminally investigate or prosecute any alcohol or drug abuse patient.[facility] CenterIn the event this information is protected by the Federal Confidentiality of Alcohol and Drug Abuse Patient Records regulations: The Federal rules restrict any use of the information to criminally investigate or prosecute any alcohol or drug abuse patient.[facility] CenterIn the event this information is protected by the Federal Confidentiality of Alcohol and Drug Abuse Patient Records regulations: The Federal rules restrict any use of the information to criminally investigate or prosecute any alcohol or drug abuse patient.[facility] CenterIn the event this information is protected by the Federal Confidentiality of Alcohol and Drug Abuse Patient Records regulations: The Federal rules restrict any use of the information to criminally investigate or prosecute any alcohol or drug abuse patient.[facility] CenterIn the event this information is protected by the Federal Confidentiality of Alcohol and Drug Abuse Patient Records regulations: The Federal rules restrict any use of the information to criminally investigate or prosecute any alcohol or drug abuse patient.[facility] CenterIn the event this information is protected by the Federal Confidentiality of Alcohol and Drug Abuse Patient Records regulations: The Federal rules restrict any use of the information to criminally investigate or prosecute any alcohol or drug abuse patient.[facility] CenterIn the event this information is protected by the Federal Confidentiality of Alcohol and Drug Abuse Patient Records regulations: The Federal rules restrict any use of the information to criminally investigate or prosecute any alcohol or drug abuse patient.[facility] CenterIn the event this information is protected by the Federal Confidentiality of Alcohol and Drug Abuse Patient Records regulations: The Federal rules restrict any use of the information to criminally investigate or prosecute any alcohol or drug abuse patient.[facility] CenterIn the event this information is protected by the Federal Confidentiality of Alcohol and Drug Abuse Patient Records regulations: The Federal rules restrict any use of the information to criminally investigate or prosecute any alcohol or drug abuse patient.[facility] CenterIn the event this information is protected by the Federal Confidentiality of Alcohol and Drug Abuse Patient Records regulations: The Federal rules restrict any use of the information to criminally investigate or prosecute any alcohol or drug abuse patient.[facility] CenterIn the event this information is protected by the Federal Confidentiality of Alcohol and Drug Abuse Patient Records regulations: The Federal rules restrict any use of the information to criminally investigate or prosecute any alcohol or drug abuse patient.[facility] CenterIn the event this information is protected by the Federal Confidentiality of Alcohol and Drug Abuse Patient Records regulations: The Federal rules restrict any use of the information to criminally investigate or prosecute any alcohol or drug abuse patient.[facility] CenterIn the event this information is protected by the Federal Confidentiality of Alcohol and Drug Abuse Patient Records regulations: The Federal rules restrict any use of the information to criminally investigate or prosecute any alcohol or drug abuse patient.[facility] CenterIn the event this information is protected by the Federal Confidentiality of Alcohol and Drug Abuse Patient Records regulations: The Federal rules restrict any use of the information to criminally investigate or prosecute any alcohol or drug abuse patient.[facility] CenterIn the event this information is protected by the Federal Confidentiality of Alcohol and Drug Abuse Patient Records regulations: The Federal rules restrict any use of the information to criminally investigate or prosecute any alcohol or drug abuse patient.[facility] CenterIn the event this information is protected by the Federal Confidentiality of Alcohol and Drug Abuse Patient Records regulations: The Federal rules restrict any use of the information to criminally investigate or prosecute any alcohol or drug abuse patient.[facility] CenterIn the event this information is protected by the Federal Confidentiality of Alcohol and Drug Abuse Patient Records regulations: The Federal rules restrict any use of the information to criminally investigate or prosecute any alcohol or drug abuse patient.[facility] CenterIn the event this information is protected by the Federal Confidentiality of Alcohol and Drug Abuse Patient Records regulations: The Federal rules restrict any use of the information to criminally investigate or prosecute any alcohol or drug abuse patient.[facility] CenterIn the event this information is protected by the Federal Confidentiality of Alcohol and Drug Abuse Patient Records regulations: The Federal rules restrict any use of the information to criminally investigate or prosecute any alcohol or drug abuse patient.[facility] CenterIn the event this information is protected by the Federal Confidentiality of Alcohol and Drug Abuse Patient Records regulations: The Federal rules restrict any use of the information to criminally investigate or prosecute any alcohol or drug abuse patient.[facility] CenterIn the event this information is protected by the Federal Confidentiality of Alcohol and Drug Abuse Patient Records regulations: The Federal rules restrict any use of the information to criminally investigate or prosecute any alcohol or drug abuse patient.[facility] CenterIn the event this information is protected by the Federal Confidentiality of Alcohol and Drug Abuse Patient Records regulations: The Federal rules restrict any use of the information to criminally investigate or prosecute any alcohol or drug abuse patient.[facility] CenterIn the event this information is protected by the Federal Confidentiality of Alcohol and Drug Abuse Patient Records regulations: The Federal rules restrict any use of the information to criminally investigate or prosecute any alcohol or drug abuse patient.[facility] CenterIn the event this information is protected by the Federal Confidentiality of Alcohol and Drug Abuse Patient Records regulations: The Federal rules restrict any use of the information to criminally investigate or prosecute any alcohol or drug abuse patient.[facility] FOR RECORDS PERTAINING TO PATIENTS WHO ARE [...] PRIMARY CLINICAL RECORDS. [facility] [employer] [facility]. provides no warranty or guarantee of the accuracy or completeness of information in this document.
--- OUTSIDE RECORDS SUMMARY | 2025-01-07 20:35 | XMS_ITS | Clinical Summary ---
Author Organization [facility] Address [address] [facility] [place] [address] Care Team Providers Care Public Bath Attendant Name Role Phone Unavailable Primary Care Provider Unavailabl e Source Comments The following information is NOT included in Care Everywhere downloads:Psychiatric notes, ECG results, Cardiac Rehab notes, Pulmonary Function notes, data from [employer] (includes but not limited toPregnancy data,audiograms, eye exams, pre-surgical evaluation notes, well-child exam data).[facility] Immunizations ImmunizationAdministration DatesNext DueInfluenza, injectable, quadrivalent, preservative (SIJ=832)11/21/2019,11/13/2018,11/12/2016Influenza, injectable, quadrivalent, preservative free (OKX=617)12/18/2015Influenza, injectable, trivalent, preservative (IUM=210)12/21/2013,11/30/2012,12/23/2011,11/25/2010 Influenza, novel V9I9-38, injectable, preservative-free (YOA=681)02/27/2009 Influenza, whole virus (CVX=16)12/13/2007Pneumococcal polysaccharide 23 Valent (PPSV23) (CVX=33)12/14/2007Tdap (NWL=832)02/08/2013 Social History Tobacco UseTypesPacks/DayYears UsedDateSmoking Tobacco: Never Assessed CommentsUnknownSex and Gender InformationValueDate RecordedSex Assigned at Not on fileLegal CqjFhfzus69/28/2020 8:31 PM EDTGender IdentityNot on fileSexual OrientationNot on file Plan of Treatment Health MaintenanceDue DateLast QzswDjuwmkjpEuftsscyxnr51/19/1970HIV Test 1984Hepatitis C Plnmdlnk01/19/1988Hepatitis A (HAV) Vaccine (optional start 19+ years)1988Hepatitis B (HBV) Vaccine (1 of 3 - 19+ 3-dose series) 1988Pap Smear07/27/19904545Iewnvndfgeq64/19/2010CRC Duiyylqxw54/19/2015 Bfztvanqlhz41/19/2015Cologuard (Stool DNA)2014FIT2014Pneumococcal Vaccine(s) (50+ yrs) (2 of 2 - PCV)/06/2007Shingles (RZV) Vaccine (1 of 2)07/28/2019Annual Wellness Visit (G0438)08/09/2019Tetanus (Td or Tdap) Roaturj41/01/03283302/08/2013COVID-19 Vaccine (2024- season)2024 01/22/2021, 05/25/2020, 04/27/2020Influenza Vaccine (#1)/, 11/13/2018, 11/12/2016, Additional history existsTdap XkekfzqHolmdmksi68/01/2014 Insurance
--- OUTSIDE RECORDS SUMMARY | 2025-01-07 20:36 | XMS_ITS | Clinical Summary ---
Author Organization [facility] Address [address] [place] [address] Phone Care Team Providers Care Senior Technical Project Manager Name Role Phone Unavailable Primary Care Provider Unavailabl e Social History Tobacco UseTypesPacks/DayYears UsedDateSmoking Tobacco: Never Assessed CommentsUnknownSex and Gender InformationValueDate RecordedSex Assigned at Not on fileLegal VrvPrmhlz07/26/2022 1:59 PM ESTGender IdentityNot on fileSexual OrientationNot on file Plan of Treatment Not on file
--- OUTSIDE RECORDS SUMMARY | 2025-01-07 20:36 | XMS_ITS | Continuity of Care Document ---
Author Organization [facility] Address [address], [address] [place] [address] Care Team Providers Care Dope Dry House Operator Name Role Phone Jean-PierreanaGarth DO Primary Care Provider [phone] Encounters DateTypeDepartmentCare YzrhQqusjpdhyaj16/27/2024bstract Hitchcock Lean Engineer - [place] [address], [address] [place] [address] Sara Aburto MD 06/24/2023Telephone [facility] Invasive Bariatric Surg [address] [facility] [address] [place], [place] [phone] Trent Camacho DO Annual post op cuqftshnqfl37/05/2023 2:18 PM EDT - 07/15/2022 11:59 PM EDT Hospital Encounter [facility] CT Scan [address] [place], [place] [id number] Spinal stenosis, cervical region Discharge Disposition: Home or Self Care07/08/2022Orders Only [facility] CT Scan [address] [place] [address] [phone] Suzie Lara APRN - MERLYN 06/30/2022Transcribe Orders [facility] Pre Access [address] [place] [address] [phone] Suzie Lara APRN - MERLYN Spinal stenosis in cervical region (Primary Dx)05/18/2022 2:41 PM EDT - 05/20/2022 11:59 PM EDTHospital Encounter [facility] MRI [address] [place] [address] Cervical myelopathy (HCC) Discharge Disposition: Home or Self Care05/04/2022Transcribe Orders [facility]i Pre Access [address] [place] [address] Eliezer Antonio DO Cervical myelopathy (HCC) (Primary Dx)2Orders Only [facility] [address] [facility] [address] [place] [address] Provider, MD Adela 05/07/2020Orders Only [facility] [address] [place] [address] Shirley Bill MA Status post bariatric hsegsan8004/03/20208637Fywwjo69/24/2021 9:[address] [facility] [address] [place] [address] Trent Camacho DO Gastroesophageal reflux disease without esophagitis (Primary Dx); Status post bariatric uerpcni9610/27/2019Orders Only [facility] [address] [place] [address] Provider, MD Adela 04/20/2019Telephone [address] - Ground Floor, [address]2 [place] [address] Naye Zaidi, DO Other (address progress note in media)04/13/2019[facility]phone [facility] [address] [place] [address] Trent Camacho DO Other (Diarrhea )02/23/2019 9:[address] 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) Discharge Disposition: Home or Self Care12/28/2018 9:48 AM EST - 12/30/2018 11:59 PM ESTHospital Encounter [facility] Radiology [address] [place] [address] Discharge Disposition: Home or Self Care12/28/2018 11:10 AM ESTOffice Visit [facility] [address] [facility] [address] - Ground Floor, [address] [place] [address] Naye Zaidi DO 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) (Primary Dx)11/27/2018Orders Only [facility] Department Result, Unknown Provider 11/27/2018Orders Only [facility] Regional Department Result, Unknown Provider 10/06/2018 9:20 AM EDTOffice Visit [facility] Neurology Specialist [address] [place] [address] Elvin Reagan MD Cervical myelopathy (HCC) (Primary Dx)09/22/2018Telephone [facility] Invasive Bariatric Surg [address] [place] [address] Trent Camacho DO Other (other)09/12/2018 10:30 AM EDTOffice Visit [place] [address] [facility] [address] - Ground Floor, [address] [place] [phone] Gena Qureshi PA S/P cervical spinal fusion (Primary Dx); 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)09/03/2018 1:05 AM EDT - 09/06/2018 10:45 PM EDTHospital Encounter [facility]- [facility] [address] [place] [address] Cal Ham MD Sauber, MD Tal Marroquin Rawan, MD Jamal, MD Fidel Other acute pulmonary embolism without acute cor pulmonale (HCC) (Primary Dx) Discharge Disposition: Jail Ztiuwfve64/27/5135Stslcw17/26/2019Direct Admit Orders [facility] INT MED [address] [place] [address] Guerita Cabrera, CUSTOMER ACCOUNT TECHNICIAN - TRUCK DRIVER FLATBED 09/02/2018Telephone [facility] [address] [facility] [address] - Ground Floor, [address] [place] [address] Naye Zaidi DO Other (discharge orders )09/01/2018Telephone [facility] [address] [facility] [address] - Ground Floor, [address] [place] [address] Naye Zaidi DO Nutrition Ikpjvrpebh53/23/2019 6:01 AM EDT - 08/31/2018 6:30 PM EDTHospital Encounter [facility] 5C Stepdown [address] [place] [address] Naye Zaidi DO H/O cervical spine surgery (Primary Dx) Discharge Disposition: Jail Nptlxkcw71/23/2019 8:32 AM EDTAnesthesia Event [facility] OR [facility] [place]note 2][address] [place] [address] Aryan Ortiz MD 08/30/2018 8:30 AM EDT - 08/30/2018 11:[address] OR [address] [place] [address] Naye Zaidi DO ANTERIOR CERVICAL DISCECTOMY WITH FUSION C4, C5, (SYNTHES, SUPINE, C-ARM, [place] CONF# [id number] - [facility])08/26/2018 2:45 PM EDTOffice Visit [facility] Invasive [facility]ric Surg [address] [place] [phone] Trent Camacho DO Obstructive sleep apnea (Primary Dx); Status post bariatric jqypbhi4508/01/2018Telephone [facility] Invasive Bariatric Surg [address] [place] [phone] Kate Dixon, CUSTOMER ACCOUNT TECHNICIAN - TRUCK DRIVER FLATBED Other (odr )07/18/2018 10:30 AM EDTOffice Visit [facility] [address] [facility] [address] - Ground Floor, [address] [place] [address] Naye Zaidi DO 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) (Primary Dx); Chronic incomplete quadriplegia (HCC)07/14/2018 12:05 PM EDT - 07/16/2018 11:59 PM EDTHospital Encounter [facility] [address] [place] [address] Chronic incomplete quadriplegia (HCC) Discharge Disposition: Home or Self Care07/06/2018 10:20 AM EDTOffice Visit [facility] Neurology Specialist [address] [facility] [address] [place] [phone] Elvin Reagan MD Lumbar radiculopathy (Primary Dx)06/29/2018 9:30 AM EDTOffice Visit [facility] [address] [facility] [address] - Ground Floor, [place] [place] [address] Naye Zaidi DO Chronic incomplete quadriplegia (HCC) (Primary Dx)06/21/2018 8:40 AM EDTOffice Visit [facility] Neurology Specialist [address] [facility] [address] [place] [address] Elvin Reagan MD Spinal stenosis of lumbar region, unspecified whether neurogenic claudication present; Weakness of both lower limbs06/01/2018 9:31 AM EDT - 06/03/2018 11:59 PM EDT Hospital Encounter [facility] MRI [address] [place] [address] Spinal stenosis of lumbar region, unspecified whether neurogenic claudication present; Weakness of both lower limbs Discharge Disposition: Home or Self Care05/31/2018 11:00 AM EDTOffice Visit [facility] [address] [facility] [address] [place] [address] Kate Dixon, CUSTOMER ACCOUNT TECHNICIAN - TRUCK DRIVER FLATBED JOLANTA (obstructive sleep apnea) (Primary Dx); Lymphedema; Status post laparoscopic sleeve gastrectomy; Chronic midline low back pain with bilateral sciatica; Obesity (BMI 30-39.9)05/24/2018Telephone [facility] Neurology Specialist [address] [facility] [address] [place] [phone] Elvin Reagan MD Results (on MRI lumbar spine/ hydronephrosis)05/24/2018 10:00 AM EDTOffice Visit [facility] Neurology Specialist [address] [facility] [address] [place] [address] Elvin Reagan MD Lumbar radiculitis (Primary Dx)05/10/2018 11:59 AM EDT - 05/12/2018 11:59 PM EDT Hospital Encounter [address] [address] Spinal stenosis of lumbar region, unspecified whether neurogenic claudication present; Weakness of both lower limbs Discharge Disposition: Home or Self Care04/26/2018 2:00 PM EDTOffice Visit [facility] Neurosurgery [facility] [address] [facility] [address] - Ground Floor, [address] [place] [address] Gena Qureshi PA Spinal stenosis of lumbar region, unspecified whether neurogenic claudication present (Primary Dx); Weakness of both lower limbs03/24/2018Telephone [facility] Min Invasive Bariatric Surg [address] [facility] [address] [place] [address] Trent Camacho DO Medication Problem (d/c lovenox )03/15/2018 9:40 AM ESTOffice Visit [facility] Neurology Specialist [address] [facility] [address] [place] [address] Elvin Reagan MD Lumbar radiculopathy (Primary Dx)03/10/2018Orders Only [facility] Weight Management [facility] [address] [facility] [address] [place] [address] Kate Dixon, CUSTOMER ACCOUNT TECHNICIAN - TRUCK DRIVER FLATBED JOLANTA (obstructive sleep apnea); Status post laparoscopic sleeve gastrectomy; Chronic midline low back pain with sciatica, sciatica laterality unspecified; Lumbosacral radiculopathy; High triglycerides; Lymphedema; Hepatic steatosis; Morbid obesity with body mass index (BMI) of 40.0 to 49.9 (HCC)03/08/2018 11:00 AM ESTOffice Visit [facility] Weight Management [place] [address] [facility] [address] [place] [address] Kate Dixon APRN - CNP JOLANTA (obstructive sleep apnea) (Primary Dx); Hepatic steatosis; Chronic midline low back pain with sciatica, sciatica laterality unspecified; Status post laparoscopic sleeve gastrectomy; Lymphedema; Obesity (BMI 30-39.9)12/01/2017Telephone [facility] Neurology Specialist [address] [facility] [address] [place] [address] Elvin Reagan MD Other11/11/2017 12:20 PM EDTOffice Visit [facility] Neurology Specialist [address] [facility] [address] [place] [address] Elvin Reagan MD Weakness of both lower extremities (Primary Dx)10/25/2017Orders Only [facility] Invasive Bariatric Surg [address] [facility] [address] [place] [address] Shirley Bill MA JOLANTA (obstructive sleep apnea); Status post laparoscopic sleeve gastrectomy; Chronic midline low back pain with sciatica, sciatica laterality unspecified; Lumbosacral radiculopathy; High triglycerides; Lymphedema; Hepatic steatosis; Morbid obesity with body mass index (BMI) of 40.0 to 49.9 (HCC); Obstructive sleep apnea; Status post bariatric [id number]/25/2017 9:30 AM EDTOffice Visit [facility] [address] [facility] [address] [place] [address] Kate Dixon APRN - CNP JOLANTA (obstructive sleep apnea) (Primary Dx); Status post laparoscopic sleeve gastrectomy; Chronic midline low back pain with sciatica, sciatica laterality unspecified; Lumbosacral radiculopathy; High triglycerides; Lymphedema; Hepatic steatosis; Morbid obesity with body mass index (BMI) of 40.0 to 49.9 ([facility])09/28/2017Orders Only [facility] 2C Ortho/Med Surg [address] [place] [address] Sharmin Burden, CUSTOMER ACCOUNT TECHNICIAN - TRUCK DRIVER FLATBED Chronic midline low back pain with sciatica, sciatica laterality unspecified; Lumbosacral radiculopathy; Numbness of right foot09/27/2017 11:00 AM EDTOffice Visit [facility] Neurology Specialist [address] [place] [address] [address] [place] [address] Elvin Reagan MD Lumbar spondylolysis (Primary Dx)09/10/2017 9:10 AM EDTOffice Visit [address] [place] [address] Ronn Little MD Urinary retention (Primary Dx)08/19/2017 2:00 PM EDTOffice Visit [facility] Invasive Bariatric Surg [address] [place] [address] Trent Camacho DO Obstructive sleep apnea (Primary Dx); Status post bariatric lxxdijn8808/16/2017 2:40 PM EDTOffice Visit [facility] Neurology Specialist [address] [place] [address] [address] [place] [address] Elvin Reagan MD Numbness (Primary Dx)08/06/2017 8:40 AM EDTOffice Visit [address] [place] [address] cShuyler Avina MD Urinary retention (Primary Dx); Acute cystitis without wdxezhzon45/31/2018 11:[address] [facility] [address] [place] [address] Trent Camacho DO Status post bariatric surgery (Primary Dx)07/01/2017Telephone [facility] [address] [facility] [address] [place] [address] Kirsty Alicia RN Other (question from care center)06/25/2017Telephone [facility] [address] [facility] [address] [place] [address] Kirsty Alicia RN Other (routine post op call)06/21/2017 7:10 AM EDT - 06/24/2017 10:30 PM EDT Hospital Encounter [facility] 2[facility] Ortho/Med Surg [address] [place] [address] Trent Camacho DO Status post laparoscopic sleeve gastrectomy (Primary Dx); Chronic midline low back pain with sciatica, sciatica laterality unspecified; Lumbosacral radiculopathy; Numbness of right foot Discharge Disposition: Jail Oakfdtbr22/14/2018 9:50 AM EDT - 06/21/2017 12:00 [address] EDTSurgery ST[facility] OR [address] [place] [address] Trent Camacho DO XI ROBOTIC GASTRECTOMY SLEEVE LAPAROSCOPIC, LIVER BIOPSY, EGD - GI UNIT SCHEDULED.06/21/2017 9:51 AM EDTAnesthesia Event [facility] OR [address] [place] [address] Miya Graham MD Waldman, Brian A, CUSTOMER ACCOUNT TECHNICIAN - REAL ESTATE AGENCY PRINCIPAL 05/20/2017Telephone [facility] [address] [facility] [address] [place] [address] Trent Camacho DO Surgery Scheduling (reschedule bariatric surgery )05/20/2017 3:00 PM EDTOffice Visit [facility] [address] [place] [address] Trent Camacho DO Obstructive sleep apnea (Primary Dx); Gastroesophageal reflux disease without esophagitis; Morbid obesity (HCC)05/11/2017 11:30 AM EDTNurse Only [facility] [address] [facility] [facility] [address] [place] [address] 05/06/2017 1:47 PM EDT - 05/10/2017 11:59 PM EDTHospital Encounter [facility] Pre-Admit Testing [address] [place] [address] Discharge Disposition: Home or Self Care05/06/2017 2:38 PM EDT - 05/08/2017 11:59 PM EDTHospital Encounter [facility] Radiology [address] [place] [address] Discharge Disposition: Home or Self Care04/21/2017Telephone [facility] Min Invasive Bariatric Surg [address] [place] [address] Trent Camacho DO Other (insurance denial)03/17/2017Telephone [facility] Min Invasive Bariatric Surg [address] [place] [address] Trent Camacho, Other (Submitted to insurance [facility])03/12/2017 11:30 AM ESTOffice Visit [facility] Weight Management [facility] [address] [facility] [address] [place] [address] Kate Dixon, CUSTOMER ACCOUNT TECHNICIAN - TRUCK DRIVER FLATBED JOLANTA (obstructive sleep apnea) (Primary Dx); High triglycerides; Lymphedema; Gastroesophageal reflux disease without esophagitis; Duodenal xyxzuozclpqm16/10/2018 3:15 PM ESTOffice Visit [facility] Respiratory Specialists, [facility]. [address] [facility] [address] [place] [address] Fidel Guerrero MD JOLANTA on CPAP (Primary Dx)02/17/2017 12:00 PM ESTOffice Visit [facility] Bariatric [address] [place] [address] Unruly Pleitez MD JOLANTA (obstructive sleep apnea) (Primary Dx); Lymphedema; High wxujrlobxbbfv58/13/2017 1:30 PM ESTOffice Visit [facility] Bariatric [address] [place], [place] [phone] Trnet Camacho DO Obstructive sleep apnea (Primary Dx); Morbid obesity (HCC)12/16/2016 1:15 PM ESTOffice Visit [address] [place], [place] [phone] Unruly Pleitez MD JOLANTA (obstructive sleep apnea) (Primary Dx); Lymphedema; Gastroesophageal reflux disease without qseycdujtjs94/11/2017 12:15 PM EDTOffice Visit [address] [place] [address] Unruly Pleitez MD JOLANTA (obstructive sleep apnea) (Primary Dx); Lymphedema; Gastroesophageal reflux disease without nhvtoisdvyw86/09/2017 9:24 AM EDT Anesthesia Event [facility] Endoscopy [address] [place] [address] Rory Delong MD 11/16/2016 8:30 AM EDT - 11/16/2016 9:00 AM EDTSurgery [facility] Endoscopy [address] [place] [address] Carlton Guerra, EGD COYIQO8211/16/2016 8:01 AM EDT - 11/16/2016 11:15 AM EDTHospital Encounter [facility] Endoscopy [address] [place] [address] Carlton Guerra DO Discharge Disposition: Home or Self Care10/21/2016 2:00 PM EDTOffice Visit [address] [facility] [place] [address] Trent Camacho DO Obstructive sleep apnea (Primary Dx); Morbid obesity due to excess calories (HCC)10/07/2016 1:30 PM EDTOffice Visit [facility] [address] [place] [address] [address] [place] [address] Fidel Guerrero MD JOLANTA (obstructive sleep apnea) (Primary Dx); Pre-op [id number]/07/2016 2:15 PM EDTOffice Visit [facility] [address] [facility] [address] [place] [address] Fidel Guerrero MD JOLANTA (obstructive sleep apnea) (Primary Dx); Morbid obesity with body mass index (BMI) of 60.0 to 69.9 in adult (HCC) 09/17/2016Telephone [facility] Invasive Bariatric Surg [address] [facility] [address] [place] [address], LD Other (review of nutrition goals)09/16/2016 2:45 PM EDTOffice Visit [facility] Bariatric [address] [place] [address] Trent Camacho DO Obstructive sleep apnea (Primary Dx); Congenital duplication cyst of esophagus; Morbid obesity due to excess calories ([facility])09/10/2016Orders Only [facility] Invasive Bariatric Surg [address] [facility] [address] [place] [address] Shirley Bill MA Gastroesophageal reflux disease without esophagitis; Snoring; Primary osteoarthritis involving multiple joints; Morbid obesity due to excess calories ([facility])08/19/2016 1:30 PM EDTOffice Visit [address] [place] [address] Unruly Pleitez MD JOLANTA (obstructive sleep apnea) (Primary Dx); Lymphedema; Duodenal diverticulum; Gastroesophageal reflux disease without esophagitis; Morbid obesity with BMI of 60.0-69.9, adult ([facility])08/12/2016 8:01 AM EDT Anesthesia Event [facility] OR [address] [place] [address] Mary Welch MD 08/12/2016 7:30 AM EDT - 08/12/2016 9:00 AM EDTSurgery [facility] OR [address] [place] [address] Steven Shanks MD ENDOSCOPIC ULTRASOUND WITH PATHOLOGY (PATHOLOGY AVAIJANN CHESTER) - GI BDMBDAVAV69/05/2017 6:14 AM EDT - 08/12/2016 9:52 AM EDTHospital Encounter [facility] OR [address] [place] [address] Steven Shanks MD Discharge Disposition: Home or Self Care08/05/2016 3:15 PM EDTOffice Visit [facility] [address] [facility] [address] [place] [address] Kate Dixon, CUSTOMER ACCOUNT TECHNICIAN - TRUCK DRIVER FLATBED Gastroesophageal reflux disease without esophagitis (Primary Dx); Esophageal mass; Morbid obesity with BMI of 60.0-69.9, adult (HCC); JOLANTA (obstructive sleep apnea); Numbness of right foot; Lymphedema; Duodenal diverticulum; High ikbmnzcupinjc99/28/2017 5:30 PM EDTNurse Only [facility] [address] [facility] [address] [place] [address] 07/31/2016 6:44 PM EDT - 07/31/2016 11:59 PM EDTHospital Encounter [facility] Sleep [address] [address] Discharge Disposition: Home or Self Care07/25/2016 7:05 PM EDT - 07/25/2016 11:59 PM EDTHospital Encounter [address] [address] Discharge Disposition: Home or Self Care07/23/2016Orders Only [facility] [place] [address] [facility] [address] [place] [address] Trent Camacho DO Esophageal mass (Primary Dx)07/22/2016 5:30 PM EDTNurse Only [facility] [address] [facility] [address] [place] [phone] Morbid obesity due to excess calories (HCC) (Primary Dx)07/21/2016Orders Only [facility] [address] [facility] [address] [place] [address] Trent Camacho DO Gastroesophageal reflux disease without esophagitis; Snoring; Primary osteoarthritis involving multiple joints; Morbid obesity due to excess calories (HCC)07/17/2016 8:42 AM EDT - 07/17/2016 11:59 PM EDTHospital Encounter [facility] Radiology [address] [place], [place] [phone] Radiologist, [facility] Gastroesophageal reflux disease without esophagitis; Morbid obesity due to excess calories (HCC) Discharge Disposition: Home or Self Care07/10/2016 10:33 AM EDTAnesthesia Event [facility] Endoscopy [address] [place] [address] Stanley Tijerina MD 07/10/2016 9:50 AM EDT - 07/10/2016 10:10 AM EDTSurgery [facility] Endoscopy [address] [place] [address] Trent Camacho DO EGD BYOKSX5307/10/2016 8:20 AM EDT - 07/10/2016 12:15 PM EDTHospital Encounter [facility] Endoscopy [address] [place] [address] Trent Camacho DO Discharge Disposition: Home or Self Care07/08/2016 12:30 PM EDTNurse Only [facility] [address] [facility] [address] [place] [address] 07/02/2016 8:30 AM EDTOffice Visit [facility] [address] [facility] [address] [place] [address] Trent Camacho DO Gastroesophageal reflux disease without esophagitis (Primary Dx); Snoring; Primary osteoarthritis involving multiple joints; Morbid obesity due to excess calories (HCC)06/10/2016Telephone [facility] [address] [facility] [address] [place] [address] Trent Camacho DO Other (online surgical seminar- can schedule MICA MINER BLASTING appt) Allergies No known active allergies Medications MedicationSigDispense QuantityRefillsLast FilledStart DateEnd DateStatus b complex vitamins capsule Take 1 capsule by mouth dailyActive gabapentin (NEURONTIN) 400 MG capsule Indications:pt. states taking 200 mg AM; 200 in afternoon; 400mg at nightTake 400 mg by mouth every evening. Indications: pt. states taking 200 mg AM; 200 in afternoon; 400mg at night04/19/2018Active Jakin-3 Fatty Acids (FISH OIL) 1000 MG CAPS [...] Wk Post-op ??07-08-17 396 ? Weighed at [facility] 5 Wk Post-op 08-19-17 363 Y ?? Weighed at [facility] 3 Mon Post-op 10/25/17?? 342lb y 10-11-[address] dent 6 Mon Post-op ? 9 Mon Post-op ??05/31/18 ??287 y ? 1 Year Post-op ??08/26/18 280? Annual ? Starting at 1 Wk Post-op: Bariatric Multivitamin with iron and Calcium Citrate ProblemNoted DateDiagnosed DatePulmonary embolism on right09/03/2018 Overview (11/08/2024): Replacing diagnoses that were inactivated after the 11/08 regulatory import H/O cervical spine egtjkhw1508/30/2018Obesity (BMI 30-39.9)03/08/2018Status post laparoscopic sleeve hwhtbhrvjyw83/14/2018OSA (obstructive sleep apnea)08/05/2016 Numbness of right foot08/05/20163321Eauufivbmp79/28/2017Duodenal diverticulum 08/05/2016High ixiruuzwiznpd61/28/2017Esophageal massChronic midline low back pain with sciaticaLumbosacral radiculopathyHepatic steatosisAnxiety and depressionPericardial effusion Resolved Problems ProblemNoted DateDiagnosed DateResolved DateMorbid obesity with body mass index (BMI) of 40.0 to 49.90Gastroesophageal reflux disease without kejvfsgxczz10/17/2018 Immunizations ImmunizationAdministration DatesNext DueTDaP, ADACEL (age 10y-64y), BOOSTRIX (age 10y+), IM, 0.5mL02/08/2013 Family History Medical HistoryRelationNameCommentsHigh Blood PressureBrother 1JONHigh CholesterolBrother 1JONCancerFatherLIVERHeart DiseaseMaternal Grandfather DiabetesMaternal GrandmotherCancerMaternal UncleDiabetesMaternal UncleHeart DiseaseMotherHigh Blood PressureMotherHigh CholesterolMotherOtherMotherPACEMAKER DiabetesPaternal GrandfatherRelationNameStatusCommentsBrother 1JONAliveBrother 2 ALLENAliveBrother 3BENAliveFatherDeceasedMaternal GrandfatherDeceasedMaternal GrandmotherDeceasedMaternal UncleMotherAlivePaternal GrandfatherDeceasedPaternal GrandmotherDeceased Social History Tobacco UseTypesPacks/DayYears UsedDateSmoking Tobacco: Never AssessedSex and Gender InformationValueDate RecordedSex Assigned at BirthNot on fileLegal Sex Qhxxsm3603/20/2012 6:41 PM ESTGender IdentityNot on fileSexual OrientationNot on file Last Filed Vital Signs Vital SignReadingTime TakenCommentsBlood Lmzbtcrm680/72004/03/2020 8:39 AM EST Pyqbl468402/23/2019 9:11 AM UYJOhffccqjelu05.9 ??C (96.6 ??F)04/03/2020 8:39 AM ESTRespiratory Qhdi343802/23/2019 9:11 AM ESTOxygen Goiiudkstg73%12/28/2018 11:23 AM ESTInhaled Oxygen Concentration--Ekowex962.9 kg (271 lb)04/03/2020 8:39 AM ZSFPzqoim542 cm (6' 2 )04/03/2020 8:39 AM ESTBody Mass Index34.7904/03/2020 8:39 AM EST Plan of Treatment Not on file Medical Devices ImplantedTypeAreaManufacturerDevice IdentifierShelf Expiration DateModel / Serial / LotTims-Putty Progenix Plus 1cc Implanted:Qty: 1 on 08/30/2018 [facility]issue/Human/SynthN/A: Spine CervicalMEDTRONIC USA INC-PMM 02/28/[id number] / / [id number] Stapler 45 Bl Davinci Xi Implanted:Qty: 1 on 06/21/2017 by Trent Camacho DO at [facility] SURGICAL INC-[id number] / / Reload Stapler 45 Bl Davinci Xi Implanted:Qty: 1 on 06/21/2017 by Trent Camacho DO at [facility] SURGICAL INC-[id number] / / Reload Stapler 45 Bl Davinci Xi Implanted:Qty: 1 on 06/21/2017 by Trent Camacho DO at [facility] SURGICAL INC-[id number] / / Reload Stapler 45 Bl Davinci Xi Implanted:Qty: 1 on 06/21/2017 [facility]-[id number] / / Reload Sehili Blk 60mm Implanted:Qty: 1 on 06/21/2017 [facility] DEPUY ORTHOPAEDICS-[id number] / / Reload Sehili Blk 60mm Implanted:Qty: 1 on 06/21/2017 [facility] DEPUY ORTHOPAEDICS-[id number] / / Screw Cerv Mercy Selftap Ti 16mm Implanted:Qty: 4 on 08/30/2018 [facility]: Spine CervicalJN[place]: DEPUY ORTHOPAEDICS-[id number] / / Impl Spine Cage Spacr Bengal Lg 7deg 6mm Implanted:Qty: 1 on 08/30/2018 by Naye Zaidi DO at [facility]/A: Spine CervicalJN[place]: DEPUY ORTHOPAEDICS-[id number] / / Plate Cerv Ant Ti 12mm Implanted:Qty: 1 on 08/30/2018 by Naye Zaidi DO at [facility]/A: Spine CervicalJNJ: DEPUY ORTHOPAEDICS-[id number] / / Procedures Procedure NamePriorityDate/TimeAssociated DiagnosisCommentsCT CERVICAL SPINE WO CPHCEFXANugqyru06/05/2023 2:32 PM EDT Spinal stenosis, cervical region MRI CERVICAL SPINE WO UQQOIKBHDnclhfo51/10/2023 3:26 PM EDT Cervical myelopathy (HCC) VKHEGGOsiokry07/08/2022 BGRGIUTEKymcdpx30/08/2022 VITAMIN D 1,25 DOPHDRIFQAytghgy04/08/2022 VITAMIN O39Pxpcsss79/08/2022 CBC WITH AUTO GSHSPEZQDHXYYtanmxq68/08/2022 TSH REFLEX TO FT4, W8Ynudjil64/08/2022 LIPID VOZHCCnanjah24/08/2022 COMPREHENSIVE METABOLIC RUTLUMyneoih79/08/2022 HEMOGLOBIN F5WFgoxned22/08/2022 VITAMIN T0Wbdcyrd16/18/2021 Status post bariatric surgery OUMALipbjnl66/18/2021 Status post bariatric surgery VITAMIN OPsbgepz99/18/2021 Status post bariatric surgery PTH, AZIZDPQggpcac38/18/2021 Status post bariatric surgery HEMOGLOBIN P6VOytatas57/18/2021 Status post bariatric surgery VITAMIN D 25 PRMMHSULbwvgvw84/18/2021 Status post bariatric surgery FHYXdvysol81/ Status post bariatric surgery VITAMIN B12 & OTIPSLSqtjwfw09/18/2021 Status post bariatric surgery KIOCMUFWYSselxld12 Status post bariatric surgery IRON AND DBWOLbszfzg88/18/2021 Status post bariatric surgery LIPID HXDYTWdmgqwj93/18/2021 Status post bariatric surgery COMPREHENSIVE METABOLIC VJCIKQstbcuo03/18/2021 Status post bariatric surgery CBC WITH AUTO SGTMUIFNWLRGTbvqpci91/18/2021 Status post bariatric surgery IGZZYBBQVAkinchn53/18/2020 PTH, EBMMMWZsrbysd80/18/2020 VITAMIN D 1,25 HWTGLIKBPOytganb24/18/2020 COMPREHENSIVE METABOLIC XPNEIXjfeahj40/18/2020 XR CERVICAL SPINE (2-3 VIEWS)Eiinfnd7012/28/2018 10:01 AM EST S/P cervical spinal fusion 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) MICROSCOPIC HRNVGRZEGDDiewwtp08/20/2019 8:42 AM EDT URINALYSIS WITH REFLEX TO HZUMONXOlfholf90/20/2019 8:42 AM EDT CULTURE, XBJSCDihxotk85/20/2019 8:42 AM EDT RHYTHM STRIP LHBSGQ5409/07/2018 3:13 PM EDTCBC WITH AUTO DIFFERENTIALSTAT 09/06/2018 5:50 AM EDT BASIC METABOLIC PANEL W/ REFLEX TO MG FOR LOW KSTAT09/06/2018 5:50 AM EDT VFJCUkrskvu56/29/2019 11:30 AM EDT VASCULAR ELKGLD2009/05/2018 10:57 AM EDTCBC WITH AUTO RNYBPDKHTUMOKWZE69/29/2019 5:31 AM EDT BASIC METABOLIC PANEL W/ REFLEX TO MG FOR LOW KSTAT09/05/2018 5:31 AM EDT PXZMJuifljm78/29/2019 3:20 AM EDT OWFHOyxac59/28/2019 10:05 PM EDT KOAVWeqbb26/28/2019 10:24 AM EDT CBC WITH AUTO FSSDFEHPXKUFVNBC63/28/2019 10:24 AM EDT BASIC METABOLIC PANEL W/ REFLEX TO MG FOR LOW KSTAT09/04/2018 10:24 AM EDT UIEOQbzia55/27/2019 11:25 PM EDT SIGCXyezo61/27/2019 5:11 PM EDT VL DUP LOWER EXTREMITY VENOUS FUXGFGTZSNxqvzpc21/27/2019 2:08 PM EDT HYXMSJWIHfkde50/27/2019 10:10 AM EDT HHXQIgqya52/27/2019 10:10 AM EDT TDORumnmrs41/27/2019 10:10 AM EDT ECHOCARDIOGRAM COMPLETE 2D W DOPPLER W RWKWAKiflqdc89/27/2019 8:15 AM EDT PROTIME-YRAGulprun22/27/2019 5:00 AM EDT HCMXWjrto25/27/2019 5:00 AM EDT MRSA DNA PROBE, NASALSunquest Label Print09/03/2018 4:55 AM EDT VITAMIN D 25 AFRLPMLVitmmna13/27/2019 4:54 AM EDT TSH REFLEX TO WN0Yltihky38/27/2019 4:54 AM EDT HVPPOOJQBLoaqesj31/27/2019 4:54 AM EDT CBC WITH AUTO GRBYZZWGGMANDDDL60/27/2019 4:54 AM EDT UAYQGBUNDpnjd41/27/2019 4:54 AM EDT LACTIC VNFOLVHZ23/27/2019 4:54 AM EDT BASIC METABOLIC PANEL W/ REFLEX TO MG FOR LOW KSTAT09/03/2018 4:54 AM EDT HEPATIC FUNCTION WHCUZOXNR03/27/2019 4:54 AM EDT EKG NRCVDM3509/03/2018 2:49 AM EDTEKG 12-PSQKKgiymhi30/27/2019 2:49 AM EDT ROSKKYIQCvhoj50/27/2019 2:23 AM EDT BRAIN NATRIURETIC PEPTIDEStat Sunquest Label 09/03/2018 2:23 AM EDT APTTStat Sunquest Label 09/03/2018 2:23 AM EDT PROTIME-INRStat Sunquest Label print09/03/2018 2:23 AM EDT BASIC METABOLIC PANELStat Sunquest Label print09/03/2018 2:23 AM EDT CBC WITH AUTO DIFFERENTIALStat Sunquest Label print09/03/2018 2:23 AM EDT RHYTHM STRIP DJDOYN5409/01/2018 3:02 PM EDTXR CERVICAL SPINE (2-3 VIEWS)Routine 08/31/2018 10:36 AM EDT CGDFigatvd92/24/2019 5:29 AM EDT XR CERVICAL SPINE (2-3 VIEWS)Iigpibl6608/30/2018 10:35 AM EDT MICROSCOPIC TGFSFVZXIJOgbqset19/23/2019 10:20 AM EDT HLAXIWMIROZvlwyre94/23/2019 10:20 AM EDT CULTURE, GSPKXGodzbiw10/23/2019 10:19 AM EDT CERVICAL LAMINECTOMY FUSION HINFWKPC23/23/2019 8:32 AM EDT CERVICAL STENOSIS Special Needs PAT OFFSITE, PT IN NURSING FACILITY, NICOLA TYPE AND SCREENStat Sunquest Label 08/30/2018 7:00 AM EDT MRI CERVICAL SPINE WO EOHWMQQGHhncwjx83/06/2019 4:33 PM EDT Chronic incomplete quadriplegia (HCC) MRI THORACIC SPINE WO LTWNORWZDxbbcua61/24/2019 10:54 AM EDT Spinal stenosis of lumbar region, unspecified whether neurogenic claudication present Weakness of both lower limbs MRI LUMBAR SPINE WO BYYGHRGKWpmnbtb43/02/2019 1:09 PM EDT Spinal stenosis of lumbar region, unspecified whether neurogenic claudication present Weakness of both lower limbs SIMYonhcmb18/27/2019 JOLANTA (obstructive sleep apnea) Status post laparoscopic sleeve gastrectomy Chronic midline low back pain with sciatica, sciatica laterality unspecified Lumbosacral radiculopathy High triglycerides Lymphedema Hepatic steatosis Morbid obesity with body mass index (BMI) of 40.0 to 49.9 (HCC) SZSXFYTLXIfgvpbi92/30/2019 JOLANTA (obstructive sleep apnea) Status post laparoscopic sleeve gastrectomy Chronic midline low back pain with sciatica, sciatica laterality unspecified Lumbosacral radiculopathy High triglycerides Lymphedema Hepatic steatosis Morbid obesity with body mass index (BMI) of 40.0 to 49.9 (HCC) LIPID FIUKDLirdunn10/30/2019 JOLANTA (obstructive sleep apnea) Status post laparoscopic sleeve gastrectomy Chronic midline low back pain with sciatica, sciatica laterality unspecified Lumbosacral radiculopathy High triglycerides Lymphedema Hepatic steatosis Morbid obesity with body mass index (BMI) of 40.0 to 49.9 (HCC) VITAMIN B12 & BJVYCHLxzttkz88/30/2019 JOLANTA (obstructive sleep apnea) Status post laparoscopic sleeve gastrectomy Chronic midline low back pain with sciatica, sciatica laterality unspecified Lumbosacral radiculopathy High triglycerides Lymphedema Hepatic steatosis Morbid obesity with body mass index (BMI) of 40.0 to 49.9 (HCC) IRON AND KJOTQkmabqa62/30/2019 JOLANTA (obstructive sleep apnea) Status post laparoscopic sleeve gastrectomy Chronic midline low back pain with sciatica, sciatica laterality unspecified Lumbosacral radiculopathy High triglycerides Lymphedema Hepatic steatosis Morbid obesity with body mass index (BMI) of 40.0 to 49.9 (HCC) JKLWMPCZJsnevob36/30/2019 JOLANTA (obstructive sleep apnea) Status post laparoscopic sleeve gastrectomy Chronic midline low back pain with sciatica, sciatica laterality unspecified Lumbosacral radiculopathy High triglycerides Lymphedema Hepatic steatosis Morbid obesity with body mass index (BMI) of 40.0 to 49.9 (HCC) T4, QIELAjwbphz24/30/2019 JOLANTA (obstructive sleep apnea) Status post laparoscopic sleeve gastrectomy Chronic midline low back pain with sciatica, sciatica laterality unspecified Lumbosacral radiculopathy High triglycerides Lymphedema Hepatic steatosis Morbid obesity with body mass index (BMI) of 40.0 to 49.9 (HCC) COMPREHENSIVE METABOLIC NZMLASbnntjz75/30/2019 JOLANTA (obstructive sleep apnea) Status post laparoscopic sleeve gastrectomy Chronic midline low back pain with sciatica, sciatica laterality unspecified Lumbosacral radiculopathy High triglycerides Lymphedema Hepatic steatosis Morbid obesity with body mass index (BMI) of 40.0 to 49.9 (HCC) CBC WITH AUTO CSLRVSIHQCIFOjbqahz92/30/2019 JOLANTA (obstructive sleep apnea) Status post laparoscopic sleeve gastrectomy Chronic midline low back pain with sciatica, sciatica laterality unspecified Lumbosacral radiculopathy High triglycerides Lymphedema Hepatic steatosis Morbid obesity with body mass index (BMI) of 40.0 to 49.9 (HCC) HEMOGLOBIN E5OZjpaibw71/03/2018 Obstructive sleep apnea Status post bariatric surgery VITAMIN D 25 BBRSYYJMughbye07/03/2018 Obstructive sleep apnea Status post bariatric surgery RUECPVDUERoldiez09/03/2018 Obstructive sleep apnea Status post bariatric surgery HEMOGLOBIN Q1NDmtdnzd77/03/2018 JOLANTA (obstructive sleep apnea) Status post laparoscopic sleeve gastrectomy Chronic midline low back pain with sciatica, sciatica laterality unspecified Lumbosacral radiculopathy High triglycerides Lymphedema Hepatic steatosis Morbid obesity with body mass index (BMI) of 40.0 to 49.9 (HCC) HHARvqjqnk50/03/2018 Obstructive sleep apnea Status post bariatric surgery COMPREHENSIVE METABOLIC IIOANSvzitpu73/03/2018 Obstructive sleep apnea Status post bariatric surgery IRON AND EOCWViqczid13/03/2018 Obstructive sleep apnea Status post bariatric surgery PTH, VRWOBNRdpqkyf87/03/2018 Obstructive sleep apnea Status post bariatric surgery TSH REFLEX TO VA6Wlfnird21/03/2018 Obstructive sleep apnea Status post bariatric surgery VITAMIN B12 & LXXVXHMdulpfd51/03/2018 Obstructive sleep apnea Status post bariatric surgery VITAMIN D 25 ESVDSZVZkbynrc17/03/2018 JOLANTA (obstructive sleep apnea) Status post laparoscopic sleeve gastrectomy Chronic midline low back pain with sciatica, sciatica laterality unspecified Lumbosacral radiculopathy High triglycerides Lymphedema Hepatic steatosis Morbid obesity with body mass index (BMI) of 40.0 to 49.9 (HCC) MRI LUMBAR SPINE WO ZIXFPMRQUgvysqe66/21/2018 Chronic midline low back pain with sciatica, sciatica laterality unspecified Lumbosacral radiculopathy Numbness of right foot RHYTHM STRIP LFKWLF5606/28/2017 2:23 PM EDTCULTURE, URINESunquest Label Print 06/24/2017 7:39 PM EDT MICROSCOPIC TFUTUJZKINNwlslgq99/17/2018 2:30 PM EDT URINALYSISSunquest Label Print06/24/2017 2:30 PM EDT VITAMIN S9Bcjwljf52/16/2018 5:40 PM EDT TSH REFLEX TO SX7Giwionv87/16/2018 5:40 PM EDT BASIC METABOLIC FLJPOBsitqgj14/16/2018 5:40 PM EDT SEDIMENTATION IDVZQzufpgd17/16/2018 5:40 PM EDT ELECTROPHORESIS PROTEIN, TLRNAQxhpmea82/16/2018 5:40 PM EDT C4 RXCUGUDXPNYerzcyb35/16/2018 5:40 PM EDT C3 GRTTXZJLDJCqbwiqe05/16/2018 5:40 PM EDT VITAMIN LGdjqlqb96/16/2018 5:40 PM EDT SUSY SCREEN WITH LYHRWTAaigjxj86/16/2018 5:40 PM EDT HEAVY METALS SCREEN, URINESunquest Label 06/23/2017 2:50 PM EDT KAPPA / LAMBDA LIGHT CHAINS, URINE, 24 HOURSunquest Label 06/23/2017 2:00 PM EDT XR KNEE LEFT (3 VIEWS)STAT06/22/2017 5:40 PM EDT XR LUMBAR SPINE (2-3 VIEWS)STAT06/22/2017 5:40 PM EDT XR HIP LEFT (2-3 VIEWS)STAT06/22/2017 5:40 PM EDT FL XATIDZRAMQDfuaesi98/15/2018 9:05 AM EDT BASIC METABOLIC HEIAFQgoidgc24/14/2018 4:01 PM EDT CBC WITH AUTO NCRUYAAMWNBHBktevlk37/14/2018 4:01 PM EDT SURGICAL BLMUBYREVPafsiwj15/14/2018 2:42 PM EDT GASTRECTOMY SLEEVE LAPAROSCOPIC KRFULXM0106/21/2017 9:52 AM EDT MORBID OBESITY, OBSTRUCTIVE SLEEP APNEA, LYMPHEDEMA, GERD Special Needs PAT (MICHELE) HCG, SERUM, QUALITATIVESunquest Label 06/21/2017 9:00 AM EDT XR CHEST (2 VW)Xyzuoax6905/06/2017 3:50 PM EDT UCSKjhwshs62/29/2018 3:37 PM EDT ALKALINE IWRHMEXFFMYXffxxfx15/29/2018 3:37 PM EDT NICOTINE, BTSWWPbtjnbg45/29/2018 3:37 PM EDT PROTIME-GTCUlhpbke91/29/2018 3:37 PM EDT VXMIShscpic47/29/2018 3:37 PM EDT BASIC METABOLIC TAJGPWjoxjha44/29/2018 3:37 PM EDT UPZBucuubb86/29/2018 3:37 PM EDT EKG 12-LMMUFwwiout94/29/2018 1:49 PM EDT SURGICAL NAVXVWGEODwyxtzi68/09/2017 12:03 PM EDT ESOPHAGOGASTRODUODENOSCOPY JOMXHH1811/16/2016 9:25 AM EDT GASTRIC ULCER FOLLOW UP Special Needs GARRICK Duenas IYFUCTTTKsppidt49/02/2017 Gastroesophageal reflux disease without esophagitis Snoring Primary osteoarthritis involving multiple joints Morbid obesity due to excess calories (HCC) BPLIBLAWAZsfuyfz74/02/2017 Gastroesophageal reflux disease without esophagitis Snoring Primary osteoarthritis involving multiple joints Morbid obesity due to excess calories (HCC) AMB EXTERNAL REFERRAL TO GZUOVXZACHLhithah43/17/2017 Gastroesophageal reflux disease without esophagitis Primary osteoarthritis involving multiple joints Morbid obesity due to excess calories (HCC) AMB EXTERNAL REFERRAL TO LSFGFBQXLCQzeqnda23/10/2017 Morbid obesity due to excess calories (HCC) RHYTHM STRIP VQCCGK9908/14/2016 1:17 PM EDTSURGICAL WDYKZDYWIQyagyml80/05/2017 10:06 AM EDT US GI ENDOSCOPIC S&POynuzbc99/05/2017 9:43 AM EDT ENDOSCOPIC WMEXCDVLTB83/05/2017 7:58 AM EDT ESOPHAGEAL MASS POCT URINE BRWJMGDKVNppvpdm87/05/2017 6:35 AM EDT AMB REFERRAL TO SLEEP WHDEIEEYMrbpulk56/17/2017 Snoring Morbid obesity due to excess calories (HCC) FL QEDUzqfxid82/09/2017 9:18 AM EDT Gastroesophageal reflux disease without esophagitis Morbid obesity due to excess calories (HCC) HEMOGLOBIN C7DOtqbktz84/07/2017 Gastroesophageal reflux disease without esophagitis Snoring Primary osteoarthritis involving multiple joints Morbid obesity due to excess calories (HCC) NICOTINE, GCYEZFydpgaj98/07/2017 Gastroesophageal reflux disease without esophagitis [place]oring Primary osteoarthritis involving multiple joints Morbid obesity due to excess calories (HCC) VITAMIN K8Wzoaqwc79/07/2017 Gastroesophageal reflux disease without esophagitis [place]oring Primary osteoarthritis involving multiple joints Morbid obesity due to excess calories (HCC) SKOLJfjuhjd36/07/2017 Gastroesophageal reflux disease without esophagitis [place]oring Primary osteoarthritis involving multiple joints Morbid obesity due to excess calories (HCC) PTH, IJSAGPTbigohc63/07/2017 Gastroesophageal reflux disease without esophagitis Snoring Primary osteoarthritis involving multiple joints Morbid obesity due to excess calories (HCC) VITAMIN FBcgazhy32/07/2017 Gastroesophageal reflux disease without esophagitis Snoring Primary osteoarthritis involving multiple joints Morbid obesity due to excess calories (HCC) VITAMIN D 25 GMEVUHQTydmlkl26/07/2017 Gastroesophageal reflux disease without esophagitis Snoring Primary osteoarthritis involving multiple joints Morbid obesity due to excess calories (HCC) URINE DRUG TPJEYHMkjfgbz13/07/2017 Gastroesophageal reflux disease without esophagitis [place]oring Primary osteoarthritis involving multiple joints Morbid obesity due to excess calories (HCC) IRON AND CUESAdtkano89/07/2017 Gastroesophageal reflux disease without esophagitis [place]oring Primary osteoarthritis involving multiple joints Morbid obesity due to excess calories (HCC) VITAMIN B12 & CGHCYDIdkorof38/07/2017 Gastroesophageal reflux disease without esophagitis [place]oring Primary osteoarthritis involving multiple joints Morbid obesity due to excess calories (HCC) T4, LENPWzlljqd95/07/2017 Gastroesophageal reflux disease without esophagitis [place]oring Primary osteoarthritis involving multiple joints Morbid obesity due to excess calories (HCC) IGOYpaqoxx94/07/2017 Gastroesophageal reflux disease without esophagitis [place]oring Primary osteoarthritis involving multiple joints Morbid obesity due to excess calories (HCC) LIPID EQMRKUdwlufw31/07/2017 Gastroesophageal reflux disease without esophagitis Snoring Primary osteoarthritis involving multiple joints Morbid obesity due to excess calories (HCC) COMPREHENSIVE METABOLIC ZPKJPHqhdupp07/07/2017 Gastroesophageal reflux disease without esophagitis Snoring Primary osteoarthritis involving multiple joints Morbid obesity due to excess calories (HCC) CBC WITH AUTO ZEOWQBICUBATGkiaaao48/07/2017 Gastroesophageal reflux disease without esophagitis [place]oring Primary osteoarthritis involving multiple joints Morbid obesity due to excess calories (HCC) SURGICAL KWDZZDTIELchcdpx98/02/2017 2:17 PM EDT H. PYLORI KJFSAZQNPXrxyzru53/02/2017 10:40 AM EDT ESOPHAGOGASTRODUODENOSCOPY XYXIKG4607/10/2016 10:33 AM EDT GERD, OBESITY Special Needs (FAX) POCT URINE BEPMHBUMPTxnlqlk75/02/2017 9:10 AM EDT Results * CT CERVICAL [...] neural foraminal narrowing is most prominent and vrou-kp-jflcfsfc bilaterally at C5-C6. Narrative 07/17/2022 11:00 PM [...] at C5-C6 and mild elsewhere. ??There is vcqd-qt-pkvtatay multilevel facet arthropathy in the spine. ??Central canal narrowing appears at least moderate and possibly severe at C5-C6 and is mild at C3-C4 and C6-C7. ??Multilevel osseous foraminal narrowing is mild bilaterally at C3-C4, mild on the left at C4-C5 and vrmo-un-xcwpqxbq bilaterally at C5-C6. SOFT TISSUES: There is [...] moderate at C5-C6 andmild elsewhere. There is hips-ff-ttjidwbp multilevel facet arthropathy inthe spine. Central canal narrowing appears at least moderate and possiblysevere at C5-C6 and is mild at C3-C4 and C6-C7. Multilevel osseous foraminal narrowing is mild bilaterally at C3-C4, mild on the left at C4-C5 and mzlq-rb-fueyuegz bilaterally at C5-C6. SOFT TISSUES: There is no prevertebral soft tissue swelling. IMPRESSION: 1. Prior anterior metallic fusion discectomy at C4-C5 out evidenthardware complication. 2. Spinal degenerative changes as described. Multilevel central canal narrowing is most prominent at least moderate and possibly severe atC5-C6. Multilevel osseous neural foraminal narrowing is most prominent and qcge-pr-inhtrtxb bilaterally at C5-C6. Authorizing ProviderResult TypeResult StatusMegan Lara CUSTOMER ACCOUNT TECHNICIAN - CNPGRADY MEMOR[facility] CT ORDERABLESFinal Result * MRI CERVICAL SPINE [...] myelomalacia. Authorizing ProviderResult TypeResult StatusChristopher Luz [facility] MRI ORDERABLESFinal Result * TSH with Reflex [...] included. ComponentValueRef RangeTest MethodAnalysis TimePerformed AtPathologist Signature WBC6.210^3/mLRBC4.1810^6/??XIzyblxfmyr42.812.0 - 16.0 g/wVYhqilphrtc58.136 - 46 %MCV93.8sCZJC36.2drZIQQ57.7g/xYJxycywlun979B/??LRDW13.4%MPV8.6fLNeutrophils % 53.3%Lymphocytes %37.6%Monocytes %6.9%Eosinophils %1.7%Basophils %0.5% Neutrophils [...] MethodAnalysis TimePerformed AtPathologist Signature Hemoglobin A1C5.3%Estimated Avg Burrurg989Zljhntxn (Source)Anatomical Location / LateralityCollection Method / VolumeCollection [...] included. ComponentValueRef RangeTest MethodAnalysis TimePerformed AtPathologist Signature Xiztueef44.69.0 - 150.0 ng/mLComment:reference range 11-306.8ng/mLSpecimen (Source)Anatomical Location / LateralityCollection Method / VolumeCollection TimeReceived TimeBLOOD SPECIMEN / Unknown Narrative Authorizing ProviderResult TypeResult StatusHistorical Provider MDCHEMISTRY ORDERABLESEdited Result - Final * Vitamin B12 (10/16/2021)ComponentValueRef RangeTest MethodAnalysis Time Performed AtPathologist SignatureVitamin B-09704Uykmixh:refrence range 180-914 pg/mlSpecimen (Source)Anatomical Location / LateralityCollection Method / VolumeCollection TimeReceived TimeBLOOD SPECIMEN / Unknown Narrative Authorizing ProviderResult TypeResult StatusHistorical Provider MDCHEMISTRY ORDERABLESEdited Result - Final * Lipid Panel (10/16/2021) Only the most recent of4 resultswithin the time period is included. ComponentValueRef RangeTest MethodAnalysis TimePerformed AtPathologist Signature Cholesterol, Qtvaz904sd/zTQOU2599 - 70 mg/dLLDL Kuahbvmlqu4680 - 160 mg/dL Kvnbzzzkkccck839yv/dLChol/HDL Ratio4.4ILVS56cm/dLCholesterol non HDLSpecimen (Source)Anatomical Location / LateralityCollection Method / VolumeCollection TimeReceived TimeBLOOD SPECIMEN / Unknown Narrative Authorizing ProviderResult TypeResult StatusHistorical Provider MDCHEMISTRY ORDERABLESEdited Result - Final * Comprehensive Metabolic Panel (10/16/2021) Only the most recent of6 resultswithin the time period is included. ComponentValueRef RangeTest MethodAnalysis TimePerformed AtPathologist Signature Nhannf804hgqh/ZLvvhyhbb126rqii/LPotassium4.2mmol/LZGJ84pl/dLCreatinine0.90 Pufwqqb45he/tIBCA85W/PQPN19Q/LCalcium9.3mg/dLTotal Protein6.3QG580.7mmol/L Albumin3.2Alkaline Cjrtlulbwno51C/LTotal Bilirubin0.50.1 - 1.4 mg/dLEst, Glom Filt Rate>60Anion GapSpecimen (Source)Anatomical Location / LateralityCollection Method / VolumeCollection TimeReceived TimeBLOOD SPECIMEN / Unknown Narrative Authorizing ProviderResult TypeResult StatusHistorical Provider MDCHEMISTRY ORDERABLESEdited Result - Final * Vitamin B12 & Folate (04/25/2020) Only the most recent of4 resultswithin the time period is included. ComponentValueRef RangeTest MethodAnalysis TimePerformed AtPathologist Signature Vitamin B-04208Lxhkqz>20.0Specimen (Source)Anatomical Location / Laterality Collection Method / VolumeCollection TimeReceived TimeBLOOD SPECIMEN / Unknown 04/25/2020 Narrative Authorizing ProviderResult TypeResult StatusCritical [facility] Hospital DOCHEMISTRY ORDERABLESFinal Result * Iron and TIBC (04/25/2020) Only the most recent of4 resultswithin the time period is included. ComponentValueRef RangeTest MethodAnalysis TimePerformed AtPathologist Signature Xcwm613UJPH899Wkictjyc (Source)Anatomical Location / LateralityCollection Method / VolumeCollection TimeReceived TimeBLOOD SPECIMEN / Gnghgqw4704/25/2020 Narrative Authorizing ProviderResult TypeResult [facility] [place] DOCHEMISTRY ORDERABLESFinal Result * Zinc (04/25/2020) Only the most recent of2 resultswithin the time period is included. Specimen (Source)Anatomical Location / LateralityCollection Method / Volume Collection TimeReceived TimeBLOOD SPECIMEN / Zaldage7604/25/2020 Impressions RankShirley MA - 04/25/2020 100 Narrative Authorizing ProviderResult TypeResult [facility] HuStreamHEMISTRY ORDERABLESFinal Result * Vitamin A (04/25/2020) Only the most recent of2 resultswithin the time period is included. Specimen (Source)Anatomical Location / LateralityCollection Method / Volume Collection TimeReceived TimeBLOOD SPECIMEN / Gfsowxz8904/25/2020 Impressions Rank, Shirley Delgadillo MA - 04/25/2020 53.9 Narrative Authorizing ProviderResult TypeResult StatusCritical [facility] Hospital HuStreamHEMISTRY ORDERABLESFinal Result * Vitamin D 25 Hydroxy (04/25/2020) Only the most recent of5 resultswithin the time period is included. ComponentValueRef RangeTest MethodAnalysis TimePerformed AtPathologist Signature Vit D, 25-Nfdtmnm78.2Vitamin D3,25 HydroxyVitamin D2, 25 HydroxySpecimen (Source)Anatomical Location / LateralityCollection Method / VolumeCollection TimeReceived TimeBLOOD SPECIMEN / Vvxuxdq2504/25/2020 Narrative Authorizing ProviderResult TypeResult [facility] [place] HuStreamHEMISTRY ORDERABLESFinal Result * TSH without Reflex (04/25/2020) Only the most recent of3 resultswithin the time period is included. ComponentValueRef RangeTest MethodAnalysis TimePerformed AtPathologist Signature TSH1.622uIU/mLSpecimen (Source)Anatomical Location / LateralityCollection Method / VolumeCollection TimeReceived TimeBLOOD SPECIMEN / Rrfwzap5204/25/2020 Narrative Authorizing ProviderResult TypeResult Status[facility] LIQVID ORDERABLESFinal Result * Vitamin B1 (04/25/2020) Only the most recent of3 resultswithin the time period is included. Specimen (Source)Anatomical Location / LateralityCollection Method / Volume Collection TimeReceived TimeBloodBLOOD SPECIMEN / Qbkyqat4704/25/2020 Impressions Rank, Shirley DelgadilloELVIS - 04/25/2020 215.1 Narrative Authorizing ProviderResult TypeResult Status[facility] LIQVID ORDERABLESEdited Result - Final * PTH, Intact (04/25/2020) Only the most recent of4 resultswithin the time period is included. ComponentValueRef RangeTest MethodAnalysis TimePerformed AtPathologist Signature Pth Qjddup82Wcywhznj (Source)Anatomical Location / LateralityCollection Method / VolumeCollection TimeReceived TimeBLOOD SPECIMEN / Fjcglct0904/25/2020 Narrative Authorizing ProviderResult TypeResult Status[facility] LIQVID ORDERABLESFinal Result * Magnesium (04/25/2020) Only the most recent of6 resultswithin the time period is included. ComponentValueRef RangeTest MethodAnalysis TimePerformed AtPathologist Signature Magnesium1.9mg/dLSpecimen (Source)Anatomical Location / LateralityCollection Method / VolumeCollection TimeReceived TimeBLOOD SPECIMEN / Gyposwb8104/25/2020 Narrative Authorizing ProviderResult TypeResult Status[facility] LIQVID ORDERABLESFinal Result * XR CERVICAL SPINE (2-3 [...] C4-5 ACDF. Authorizing ProviderResult TypeResult StatusGena Escobar [facility] DIAGNOSTIC IMAGING ORDERABLESFinal Result * (ABNORMAL) Urinalysis Reflex to Culture (11/27/2018 8:42 AM EDT)ComponentValue Ref RangeTest MethodAnalysis TimePerformed AtPathologist SignatureColor, UA YellowStraw/Kulqxc1511/27/2018 8:22 AM [facility] LABClarity, UA TURBID(A)Clear11/27/2018 8:22 AM [facility] LABGlucose, Ur NegativeNegative mg/dL11/27/2018 8:22 AM [facility] LABBilirubin MsqkbBeelwiwrTftpbsmw47/20/2019 8:22 AM [facility] LABKetones, UrineNegativeNegative mg/dL11/27/2018 8:22 AM [facility] Specific [place], UA1.0161.005 - 1.1236011/27/2018 8:22 AM [facility] LABBlood, UrineLARGE(A)Rudhlcyf90/20/2019 8:22 AM [facility] LABpH, UA8.05.0 - 9.010 8:22 AM [facility] Protein, UA30(A)Negative mg/dL11/27/2018 8:22 AM [facility] Urobilinogen, Urine1.0<2.0 E.U./dL11/27/2018 8:22 AM [facility] LABNitrite, IvwdcEzmtsqwlWolsxttk38/20/2019 8:22 AM [facility] LABLeukocyte Esterase, UrineLARGE(A)Gjcejyfe90/20/2019 8:22 AM [facility] LABUrine Reflex to ZzigjggUQS01/20/2019 8:22 AM [facility] LABSpecimen (Source)Anatomical Location / LateralityCollection Method / VolumeCollection TimeReceived TimeURINE SPECIMEN / Fjroswa3811/27/2018 8:42 AM EDT1 8:42 AM EDT Narrative [facility] - 11/27/2018 9:34 AM EDT CALL doctor [phone] tel. , Authorizing ProviderResult TypeResult StatusYousuf Lady Harris MDURINE ORDERABLESEdited Result - FinalPerforming OrganizationAddressCity/State/ZIP Code Phone Number [facility] [address] [place] [address], [facility] [phone] * (ABNORMAL) Microscopic Urinalysis (11/27/2018 8:42 AM EDT) Only the most recent of3 resultswithin the time period is included. ComponentValueRef RangeTest MethodAnalysis TimePerformed AtPathologist Signature RBC, UA10-20(A)0 - 2 /HPF11/27/2018 9:34 AM [facility] Bacteria, UAMANY(A)/HPF11/27/2018 8:25 AM [facility] LABHyaline Casts, YG99-351 - 5 /HPF11/27/2018 8:25 AM [facility] LABWBC, UA >100(H)0 - 5 /HPF11/27/2018 8:25 AM [facility] LABEpithelial Cells, UA0-20 - 5 /HPF11/27/2018 8:25 AM [facility] LABSpecimen (Source)Anatomical Location / LateralityCollection Method / VolumeCollection TimeReceived Time11/27/2018 8:42 AM EDT1 8:42 AM EDT [facility] - 11/27/2018 9:34 AM EDT CALL doctor [phone] tel. , Authorizing ProviderResult TypeResult StatusIla SALGADO ORDERABLES Edited Result - FinalPerforming OrganizationAddressCity/State/ZIP CodePhone Number [facility] [address] [place] [address], [facility] [phone] * (ABNORMAL) Urine Culture (11/27/2018 8:42 AM EDT) Only the most recent of3 resultswithin the time period is included. ComponentValueRef RangeTest MethodAnalysis TimePerformed AtPathologist Signature OrganismEscherichia coli(A)[facility] LABUrine Culture, Routine >100,000 CFU/mlHANNIBAL REGIONAL [facility]OSPITAL LABSpecimen (Source)Anatomical Location / LateralityCollection Method / VolumeCollection TimeReceived TimeURINE SPECIMEN / Woqixgi3111/27/2018 8:42 AM EDT1 8:42 AM EDT [facility] - 11/29/2018 8:27 AM EDT ORDERED [...] - GENERAL ORDERABLESFinal ResultPerforming OrganizationAddressCity/State/ZIP CodePhone Number [facility] [address] [facility] [place] [address], [facility] [phone] * RHYTHM STRIP REPORT (09/07/2018 3:13 PM EDT) Only the most recent of4 resultswithin the time period is included. Narrative Authorizing ProviderResult TypeResult StatusHpf ScanningECG ORDERABLESFinal Result * (ABNORMAL) Basic Metabolic Panel w/ Reflex to MG (09/06/2018 5:50 AM EDT) Only the most recent of4 resultswithin the time period is included. ComponentValueRef RangeTest MethodAnalysis TimePerformed AtPathologist Signature Efudnjp3494 - 99 mg/dL09/06/2018 5:50 AM EDTMERCY TVULPFGBLXUXKUI02 - 20 mg/dL 09/06/2018 5:50 AM EDTMERCY LABORATORIESCreatinine0.540.50 - 0.90 mg/dL 09/06/2018 5:50 AM EDTMERCY LABORATORIESBUN/Creatinine RatioNOT REPORTED9 - 20 09/06/2018 5:50 AM EDTMERCY LABORATORIESCalcium8.88.6 - 10.4 mg/dL09/06/2018 5:50 AM EDTMERCY OXPHMELRDCBYLszpjz209338 - 144 mmol/L09/06/2018 5:50 AM EDT [facility] LABORATORIESPotassium3.73.7 - 5.3 mmol/L09/06/2018 5:50 AM EDTMERCY YKLYMSCZHOGBRtainkyk31232 - 107 mmol/L09/06/2018 5:50 AM EDTMERCY LABORATORIES MK39218 - 31 mmol/L09/06/2018 5:50 AM EDTMERCY LABORATORIESAnion Gap8(L)9 - 17 mmol/L09/06/2018 5:50 AM EDTMERCY LABORATORIESGFR Non->60>60 mL/min09/06/2018 5:50 AM EDTMERCY LABORATORIESGFR >60>60 mL/min 09/06/2018 5:50 AM EDTMERCY LABORATORIESGFR Irqcqsi2409/06/2018 5:50 AM EDTMERCY LABORATORIESComment: Average GFR for 40-49 years old: 99 mL/min/1.73sq m Chronic Kidney Disease: <60 mL/min/1.73sq m Kidney failure: <15 mL/min/1.73sq m ? eGFR calculated using average adult body mass. Additional eGFR calculator available at: ? http://www.[employer]/multiple_crcl_2012.htm ? GFR StagingNOT GZNSGUJJ18/30/2019 5:50 AM EDTMERCY LABORATORIESSpecimen (Source) Anatomical Location / LateralityCollection Method / VolumeCollection Time Received TimeBLOOD SPECIMEN / Gzvcden7609/06/2018 5:50 AM EDT09/06/2018 5:57 AM EDT Narrative Authorizing ProviderResult TypeResult StatusYousuf Lady Harris MDCHEMISTRY ORDERABLESFinal ResultPerforming OrganizationAddressCity/State/ZIP CodePhone Number KATIE BOWER [address] [place] [address], [facility] [phone] * (ABNORMAL) APTT (09/05/2018 11:30 AM EDT) Only the most recent of10 resultswithin the time period is included. ComponentValueRef RangeTest MethodAnalysis TimePerformed AtPathologist Signature APTT56.3(H)20.5 - 30.5 sec09/05/2018 11:30 AM EDTMERCSylvia LABORATORIESSpecimen (Source)Anatomical Location / LateralityCollection Method / VolumeCollection TimeReceived TimeBLOOD SPECIMEN / Unwcozb5809/05/2018 11:30 AM EDT09/05/2018 11:53 AM EDT Narrative Authorizing ProviderResult TypeResult StatusRadaniel Parada MDHEMATOLOGY ORDERABLES Final ResultPerforming OrganizationAddressCity/State/ZIP CodePhone Number [facility] [address] [place] [address], [facility] [phone] * VASCULAR REPORT (09/05/2018 10:57 AM EDT)Anatomical RegionLateralityModality Other Narrative Authorizing ProviderResult TypeResult StatusHpf ScanningIMG VASCULAR ORDERABLES Final Result * VL DUP LOWER EXTREMITY VENOUS BILATERAL (09/03/2018 2:08 PM EDT)Anatomical RegionLateralityModalityOtherSpecimen (Source)Anatomical Location / Laterality Collection Method / VolumeCollection TimeReceived Time09/03/2018 2:08 PM EDT Narrative 09/04/2018 2:[address] [facility] Vascular Lower Extremities DVT Study Procedure Patient Name ?? LUIS Escobar Date of Study ? 09/03/2018 Date of ??1970 ??Gender ?Female Age ?48 year(s) ??Race ? Room Number ?0121 ?Height: ? 74 inch, 187.96 cm Corporate ID # [id number] ?Weight: ? 280 pounds, 127 kg Patient ?? BSA: ?2.51 m^2 ?BMI: ?35.95 kg/m^2 MR # ? [id number] ? Security Checker ? Kandis Mcqueen RVT Accession # ?[id number] ?? Interpreting Physician ??Harjinder Levy Referring ?Referring [...] Procedure Note Harjinder Levy MD - 09/04/[address] [facility] Vascular Lower Extremities DVT Study Procedure Patient Name LUIS Escobar Date of Study 09/03/2018 Date of 1970 Gender Female Age 48 year(s) Race Room Number 0121 Height: 74 inch, 187.96 cm Corporate ID # [id number] Weight: 280 pounds, 127 kg Patient BSA: 2.51 m^2 BMI: 35.95kg/m^2 MR # [id number] Security Checker Kandis Mcqueen RVT Interpreting Physician Harjinder Levy [...] RangeTest MethodAnalysis TimePerformed AtPathologist Signature Troponin, High Oixgeselkjw00(HH)0 - 14 ng/L09/03/2018 10:10 AM EDXenomeComment: ? High Sensitivity Troponin values cannot be compared with other Troponin methodologies. ? Patients with high levels of Biotin oral intake (i.e >5mg/day) may have falsely decreased Troponin levels. Samples collected within 8 hours of biotin intake may require additional information for diagnosis. Previous Alert Value Reported Troponin TNOT REPORTED<0.03 ng/mL09/03/2018 10:10 AM [facility] Troponin InterpNOT THMBPZBA66/27/2019 10:10 AM [facility] LABORATORIESSpecimen (Source)Anatomical Location / LateralityCollection Method / VolumeCollection TimeReceived Time09/03/2018 10:10 AM EDT09/03/2018 10:15 AM EDT Narrative Authorizing ProviderResult TypeResult StatusRaheel Tarun MDCHEMISTRY ORDERABLES Final ResultPerforming OrganizationAddressCity/State/ZIP CodePhone Number [facility] [place] [address], [facility] [phone] * (ABNORMAL) CBC (09/03/2018 10:10 AM EDT) Only the most recent of4 resultswithin the time period is included. ComponentValueRef RangeTest MethodAnalysis TimePerformed AtPathologist Signature WBC8.93.5 - 11.3 k/uL09/03/2018 10:10 AM EDTMERCY LABORATORIESRBC4.123.95 - 5.11 m/uL09/03/2018 10:10 AM EDTMERCY ASCUYJAMIDRLYleomiyjky33.7(L)11.9 - 15.1 g/dL 09/03/2018 10:10 AM EDTMERCY MQLYKSUVHCYCDnbnrlcwje76.736.3 - 47.1 %09/03/2018 10:10 AM EDTMERCY QXFVJWDMBLVXIYJ34.182.6 - 102.9 fL09/03/2018 10:10 AM EDTMERCY DMUTTESAMPWJHQT17.425.2 - 33.5 pg09/03/2018 10:10 AM EDTMERCY LABORATORIESMCHC 31.928.4 - 34.8 g/dL09/03/2018 10:10 AM EDTMERCY MGRRRSVIEEFNBVH69.411.8 - 14.4 %09/03/2018 10:10 AM EDTMERCY FKFEPDVSKLNCZbcradpzv940834 - 453 k/uL09/03/2018 10:10 AM EDTMERCY FSUENVWLQXRZJFU53.98.1 - 13.5 fL09/03/2018 10:10 AM EDTMERCY LABORATORIESNRBC Automated0.00.0 per 100 WBC09/03/2018 10:10 AM EDTMERCY LABORATORIESSpecimen (Source)Anatomical Location / LateralityCollection Method / VolumeCollection TimeReceived Time09/03/2018 10:10 AM EDT09/03/2018 10:15 AM EDT Narrative Authorizing ProviderResult TypeResult StatusRaheel Tarun MDHEMATOLOGY ORDERABLES Final ResultPerforming OrganizationAddressCity/State/[place] [address], [facility] [phone] * ECHO Complete 2D W Doppler W Color (09/03/2018 8:15 AM EDT)ComponentValueRef RangeTest MethodAnalysis TimePerformed AtPathologist SignatureLeft Ventricular Ejection Ttcrtsda35YI LVEFLVEF MODALITYECHOMH LVEFSpecimen (Source)Anatomical Location / LateralityCollection Method / VolumeCollection TimeReceived Time 09/03/2018 8:15 AM EDT Narrative [facility] LVEF - 09/03/2018 3:01 PM EDT Transthoracic Echocardiography Report (TTE) Patient Name LUIS Escobar Date of Study ? 09/03/2018 Date of ?1970 ??Gender ?Female Age ?48 year(s) ??Race ? Room Number ??0121 ?Height: ? 74 inch, 187.96 cm Corporate ID [id number] ?Weight: ? 280 pounds, 127 kg # Patient Acct [id number] ?? BSA: ? 2.51 m^2 ? BMI: ? 35.95 kg/m^2 # MR # ? [id number] ? Security Checker ? Suzie Rodriguez ?? Interpreting Physician ?Sara Garrison Fellow ? Referring Nurse ?Practitioner Interpreting ? Referring Physician ? Daniel Harris MD Fellow Additional Comments Technically difficult study, patient body habitus. Patient supine and unable to be adequately repositioned. Type of Study TTE procedure:2D Echocardiogram, M-Mode, Doppler, Color Doppler. Procedure Date Date: 09/03/2018 Start: 08:15 AM Study Location: [facility] Technical Quality: Adequate visualization Indications:LV Function [...] Height: 74 inch, 187.96 cm Corporate ID [id number] Weight: 280 pounds, 127 kg # Patient Acct [id number] BSA: 2.51 m^2 BMI: 35.95kg/m^2 # MR # [id number] Security Checker Suzie Rodriguez Interpreting Physician Sara Garrison Fellow Referring Nurse Practitioner Interpreting Referring Physician Daniel Harris MD Fellow Additional Comments Technically difficult study, patient body habitus. Patient supine and unable to be adequately repositioned. Type of Study TTE procedure:2D Echocardiogram, M-Mode, Doppler, Color Doppler. Procedure Date Date: 09/03/2018 Start: 08:15 AM Study Location: [facility] Technical Quality: Adequate visualization Indications:LV Function [...] included. ComponentValueRef RangeTest MethodAnalysis TimePerformed AtPathologist Signature Nwzkcpu94.69.0 - 12.0 sec09/03/2018 5:00 AM EDTMERCY LABORATORIESINR1.0 09/03/2018 5:00 AM EDTMERCY LABORATORIESComment: ? Therapeutic Range: Moderate Anticoagulant Intensity: ?? INR = 2.0-3.0 High Anticoagulant Intensity: ?? INR = 2.5-3.5 ? Specimen (Source)Anatomical Location / LateralityCollection Method / Volume Collection TimeReceived Time09/03/2018 5:00 AM EDT09/03/2018 5:04 AM EDT Narrative Authorizing ProviderResult TypeResult StatusYousmahsa Harris MDHEMATOLOGY ORDERABLESFinal ResultPerforming OrganizationAddressty/State/ZIP CodePhone Number [address] [phone] * (ABNORMAL) MRSA DNA Probe, Nasal (09/03/2018 4:55 AM EDT)ComponentValueRef RangeTest MethodAnalysis TimePerformed AtPathologist SignatureSpecimen Description.NASAL SWAB09/03/2018 4:55 AM EDTMERCY LABORATORIESMRSA, DNA, Nasal POSITIVE: MRSA DNA detected by nucleic acid amplification.(A)NEGATIVE: MRSA DNA not detected by nucleic acid doykfmhspvk52/27/2019 4:55 AM EDTMERCY LABORATORIESComment: ? Results should be used as an adjunct to nosocomial control efforts to identify patients needing enhanced precautions. ?? The test is not intended to identify patients with staphylococcal infections. ??Results should not be used to guide or monitor treatment for MRSA infections. Specimen (Source)Anatomical Location / LateralityCollection Method / Volume Collection TimeReceived RsitGdmdx43/27/2019 4:55 AM EDT09/03/2018 4:56 AM EDT Narrative Authorizing ProviderResult TypeResult StatusLuis Halina Lee MDMICROBIOLOGY - GENERAL ORDERABLESFinal ResultPerforming OrganizationAddressty/State/ZIP Code Phone Number [address] [phone] * TSH with Reflex (09/03/2018 4:54 AM EDT) Only the most recent of3 resultswithin the time period is included. ComponentValueRef RangeTest MethodAnalysis TimePerformed AtPathologist Signature TSH1.300.30 - 5.00 mIU/L09/03/2018 4:54 AM EDTMERCY LABORATORIESSpecimen (Source)Anatomical Location / LateralityCollection Method / VolumeCollection TimeReceived Time09/03/2018 4:54 AM EDT09/03/2018 4:59 AM EDT Narrative Authorizing ProviderResult TypeResult StatusDaniel Harris MDCHEMISTRY ORDERABLESFinal ResultPerforming OrganizationAddressCity/State/[place] [address], [facility] [phone] * Lactic acid, plasma (09/03/2018 4:54 AM EDT)ComponentValueRef RangeTest Method Analysis TimePerformed AtPathologist SignatureLactic AcidNOT REPORTEDmmol/L 09/03/2018 4:54 AM EDTMERCY LABORATORIESLactic Acid, Whole Blood1.00.7 - 2.1 mmol/L09/03/2018 4:54 AM EDTMERCY LABORATORIESSpecimen (Source)Anatomical Location / LateralityCollection Method / VolumeCollection TimeReceived Time BLOOD SPECIMEN / Hehnesg2709/03/2018 4:54 AM EDT09/03/2018 4:59 AM EDT Narrative Authorizing ProviderResult TypeResult StatusDaniel Harris MDCHEMISTRY ORDERABLESFinal ResultPerforming OrganizationAddressCity/State/ZIP CodePhone Number [facility] [employer] [address] [place] [address], [facility] [phone] * (ABNORMAL) Hepatic function panel (09/03/2018 4:54 AM EDT)ComponentValueRef RangeTest MethodAnalysis TimePerformed AtPathologist SignatureAlbumin2.9(L)3.5 - 5.2 g/dL09/03/2018 4:54 AM EDTMERCY LABORATORIESAlkaline Zbizjrkhtyz2833 - 104 U/L09/03/2018 4:54 AM EDTMERCY PJGNFBPVUPFIAYU36 - 33 U/L09/03/2018 4:54 AM EDTMERCY TNHVVTPOYODVEUL03<32 U/L09/03/2018 4:54 AM EDTMERCY LABORATORIES Total Bilirubin0.320.3 [...] Method / VolumeCollection TimeReceived TimeBLOOD SPECIMEN / Lurrvhn6109/03/2018 4:54 AM EDT09/03/2018 4:59 AM EDT Narrative Authorizing ProviderResult TypeResult StatusYousuf Narayanan Steven MDCHEMISTRY ORDERABLESFinal ResultPerforming OrganizationAddressCity/State/ZIP CodePhone Number [facility] [address] [place] [address], [facility] [phone] * EKG REPORT (09/03/2018 2:49 AM EDT) Narrative Authorizing ProviderResult TypeResult StatusHpf ScanningECG ORDERABLESFinal Result * EKG 12 Lead (09/03/2018 2:49 AM EDT) Only the most recent of2 resultswithin the time period is included. ComponentValueRef RangeTest MethodAnalysis TimePerformed AtPathologist Signature Ventricular Ueyx34UURPQHN STV MUSEAtrial Fkry33LLMOCUG STV MUSEP-R Hrcnfejt698lr MHPN STV MUSEQRS Pwcujrto68ewVUAP STV MUSEQ-T Xhbkaimq146izLYNU STV MUSEQTc Calculation (Bazett)459msMHPN STV MUSEP Swny08biiypbzUHYX STV MUSER Elberta-7 degreesMHPN STV MUSET Mzxb64hzgezgkHNWW STV MUSESpecimen (Source)Anatomical Location / LateralityCollection Method [...] / Volume Collection TimeReceived TimeBLOOD SPECIMEN / Rohzkuo4209/03/2018 2:23 AM EDT 09/03/2018 2:28 AM EDT Narrative Authorizing ProviderResult TypeResult Jai Powell MDCHEMISTRY ORDERABLESFinal ResultPerforming OrganizationAddressCity/State/ZIP [place] [address], [facility] [phone] * (ABNORMAL) Basic Metabolic Panel (09/03/2018 2:23 AM EDT) Only the most recent of4 resultswithin the time period is included. ComponentValueRef RangeTest MethodAnalysis TimePerformed AtPathologist Signature Ttdslkn767(H)70 - 99 mg/dL09/03/2018 2:23 AM EDTMERCY GADYZLUHWUYZAGK010 - 20 mg/dL09/03/2018 2:23 AM EDTMERCY LABORATORIESCreatinine0.570.50 - 0.90 mg/dL 09/03/2018 2:23 AM EDTMERCY LABORATORIESBUN/Creatinine RatioNOT REPORTED9 - 20 09/03/2018 2:23 AM EDTMERCY LABORATORIESCalcium8.78.6 - 10.4 mg/dL09/03/2018 2:23 AM EDTMERCY MXWTDLIQCPNWMtpowa464311 - 144 mmol/L09/03/2018 2:23 AM EDT [facility] LABORATORIESPotassium3.5(L)3.7 - 5.3 mmol/L09/03/2018 2:23 AM EDTMERCY QLOIANSKJXKIFkqrhajl80271 - 107 mmol/L09/03/2018 2:23 AM EDTMERCY LABORATORIES BD51617 - 31 mmol/L09/03/2018 2:23 AM EDTMERCY LABORATORIESAnion Ajh321 - 17 mmol/L09/03/2018 2:23 AM EDTMERCY LABORATORIESGFR Non->60>60 mL/min09/03/2018 2:23 AM EDTMERCY LABORATORIESGFR >60>60 mL/min 09/03/2018 2:23 AM EDTMERCY LABORATORIESGFR Fmnojco3009/03/2018 2:23 AM EDTMERCY LABORATORIESComment: Average GFR for 40-49 years old: 99 mL/min/1.73sq m Chronic Kidney Disease: <60 mL/min/1.73sq m Kidney failure: <15 mL/min/1.73sq m ? eGFR calculated using average adult body mass. Additional eGFR calculator available at: ? http://www.[employer]/multiple_crcl_2012.htm ? GFR StagingNOT FGCRUFOW96/27/2019 2:23 AM EDTMERCY LABORATORIESSpecimen (Source) Anatomical Location / LateralityCollection Method / VolumeCollection Time Received TimeBLOOD SPECIMEN / Ycrquxl7409/03/2018 2:23 AM EDT09/03/2018 2:28 AM EDT Narrative Authorizing ProviderResult TypeResult StatusMichael Powell MDCHEMISTRY ORDERABLESFinal ResultPerforming OrganizationAddressCity/State/ZIP CodePhone Number [facility] [address] [place] [address], [facility] [phone] * (ABNORMAL) Urinalysis (08/30/2018 10:20 AM EDT) Only the most recent of2 resultswithin the time period is included. ComponentValueRef RangeTest MethodAnalysis TimePerformed AtPathologist Signature Color, YURTXAXYYNUKDW69/23/2019 10:20 AM EDTMERCY LABORATORIESTurbidity UATURBID (A)CLEAR08/30/2018 10:20 AM EDTMERCY LABORATORIESGlucose, UrNEGATIVENEGATIVE 08/30/2018 10:20 AM EDTMERCY LABORATORIESBilirubin UrineNEGATIVENEGATIVE 08/30/2018 10:20 AM EDTMERCY LABORATORIESKetones, UrineNEGATIVENEGATIVE 08/30/2018 10:20 AM EDTMERCY LABORATORIESSpecific [place], UA1.0081.005 - 1.030 08/30/2018 10:20 AM EDTMERCY LABORATORIESUrine HgbSMALL(A)USGFCJAI16/23/2019 10:20 AM EDTMERCY LABORATORIESpH, UA6.05.0 - 8. 10:20 AM EDTMERCY LABORATORIESProtein, UATRACE(A)YXGYRZKU20/23/2019 10:20 AM EDTMERCY LABORATORIES Urobilinogen, DjicaVqojluIuvllz01/23/2019 10:20 AM EDTMERCY LABORATORIESNitrite, EesdfSQIQBWBZTWGVIYFC56/23/2019 10:20 AM EDTMERCY LABORATORIESLeukocyte Esterase, UrineLARGE(A)XGPCDNWW71/23/2019 10:20 AM EDTMERCY LABORATORIES Urinalysis CommentsNOT XQNQXCFH80/23/2019 10:20 AM EDTMERCY LABORATORIESSpecimen (Source)Anatomical Location / LateralityCollection Method / VolumeCollection TimeReceived TimeUrine (substance) (Urine)08/30/2018 9:40 AM EDTComment:URINE - HART INSERTION Pre-op diagnosis: CERVICAL STENOSIS Narrative Authorizing ProviderResult TypeResult StatusZubair Ahammad DOURINE ORDERABLES Edited Result - FinalPerforming OrganizationAddressCity/State/ZIP CodePhone Number Jam[employer] Java [address] [place] [address], [facility] [phone] * TYPE AND SCREEN (08/30/2018 7:00 AM EDT)ComponentValueRef RangeTest Method Analysis TimePerformed AtPathologist SignatureExpiration Date09/02/2018 08/30/2018 7:00 AM EDTMERCY LABORATORIESArm Band NumberBE [id number] 7:00 AM EDTMERCY LABORATORIESABO/RhAB SOTOINZO91/23/2019 7:00 AM EDTMERCY LABORATORIESAntibody XfdtymNTQYHBSG87/23/2019 7:00 AM EDTMERCY LABORATORIES Specimen (Source)Anatomical Location / LateralityCollection Method / Volume Collection TimeReceived TimeBLOOD SPECIMEN / Jzlmkbh4508/30/2018 7:00 AM EDT 08/30/2018 7:46 AM EDT Narrative Authorizing ProviderResult TypeResult StatusZubair Ahammad DOBLOOD BANK TEST ORDERABLESFinal ResultPerforming OrganizationAddressCity/State/ZIP CodePhone Number Jammin Java [address] [place] [address], [facility] [phone] * MRI THORACIC SPINE WO CONTRAST (06/01/2018 [...] pleural effusions. Authorizing ProviderResult TypeResult StatusGena Qureshi [facility] MRI ORDERABLES Final Result * MRI Lumbar [...] licensed caregiver. Authorizing ProviderResult TypeResult StatusGena Qureshi [facility] MRI ORDERABLES Final Result * T4, Free (03/09/2018) Only the most recent of2 resultswithin the time period is included. ComponentValueRef RangeTest MethodAnalysis TimePerformed AtPathologist Signature T4 FreeSpecimen (Source)Anatomical Location / LateralityCollection Method / VolumeCollection TimeReceived TimeBLOOD SPECIMEN / Lzpfkpb4603/09/2018 Narrative Authorizing ProviderResult TypeResult StatusKate Dixon CUSTOMER ACCOUNT TECHNICIAN - CNPCHEMISTRY ORDERABLESFinal Result * SUSY Screen with Reflex (06/23/2017 5:40 PM EDT)ComponentValueRef RangeTest MethodAnalysis TimePerformed AtPathologist RbudjadnwDZWHGEJAFWRGLY50/17/2018 1:12 PM EDTMERCY LABORATORIESComment: This test was run on the [employer] SUSY test system. ??The system provides ten test results (HEp-2NA, dsDNA, SSA, SSB, Sm, SENIOR STAFF ACCOUNTANT, Scl-70, Inez-1, Centromere and Histone analytes) from a single patient sample. ??A negative SUSY screen indicates that the specimen was negative for all ten markers. [employer] [address] [place] [address] ([phone] Specimen (Source)Anatomical Location / LateralityCollection Method / Volume Collection TimeReceived Time06/23/2017 5:40 PM EDT06/23/2017 5:40 PM EDT Narrative Authorizing ProviderResult TypeResult StatusTrent Camacho DOCHEMISTRY ORDERABLESFinal ResultPerforming OrganizationAddressCity/State/ZIP CodePhone Number [phone] [place] [address] * (ABNORMAL) Sedimentation Rate (06/23/2017 5:40 PM EDT)ComponentValueRef Range Test MethodAnalysis TimePerformed AtPathologist SignatureSed Rate, Quvwccger10 (H)0 - 20 mm06/23/2017 6:52 PM EDTMERCY LABORATORIESComment:[address] [address] ([phone] (Source)Anatomical Location / LateralityCollection Method / VolumeCollection TimeReceived Time 06/23/2017 5:40 PM EDT06/23/2017 5:40 PM EDT Narrative Authorizing ProviderResult TypeResult Status[facility] DOHEMATOLOGY ORDERABLESFinal ResultPerforming OrganizationAddressty/State/[place] [address], [facility] [phone] * C3 Complement (06/23/2017 5:40 PM EDT)ComponentValueRef RangeTest Method Analysis TimePerformed AtPathologist SignatureComplement [id number] - 180 mg/dL 06/23/2017 6:22 PM EDTMERCY LABORATORIESComment:[address] [address] ([phone] (Source)Anatomical Location / LateralityCollection Method / VolumeCollection TimeReceived Time06/23/2017 5:40 PM EDT06/23/2017 5:40 PM EDT Narrative Authorizing ProviderResult TypeResult StatusGregWake [facility] DOCHEMISTRY ORDERABLESFinal ResultPerforming OrganizationAddCrichton Rehabilitation Centerty/State/ZIP CodePhone Number [address] [address], [facility] [phone] * C4 Complement (06/23/2017 5:40 PM EDT)ComponentValueRef RangeTest Method Analysis TimePerformed AtPathologist SignatureComplement F41255 - 40 mg/dL 06/23/2017 6:22 PM EDTMERCY LABORATORIESComment:[address] [address] ([phone] (Source)Anatomical Location / LateralityCollection Method / VolumeCollection TimeReceived Time06/23/2017 5:40 PM EDT06/23/2017 5:40 PM EDT Narrative Authorizing ProviderResult TypeResult StatusGregnancy Walden [place] DOCHEMISTRY ORDERABLESFinal ResultPerforming OrganizationAddressty/State/[place] [address], [facility] [phone] * Vitamin E (06/23/2017 5:40 PM EDT)ComponentValueRef RangeTest MethodAnalysis TimePerformed AtPathologist SignatureAlpha-Tocopherol6.85.5 - 18.0 mg/L 06/26/2017 11:28 AM EDTARUP LABORATORYComment: (NOTE) Test developed and characteristics determined by [facility]. See Compliance Statement B: [employer]/ Gamma-Tocopherol1.10.0 - 6.0 mg/L06/26/2017 11:28 AM EDTARUP LABORATORYComment: (NOTE) Performed by [facility], [address] [place] [address] [email or web address], Papo Bradley MD, [place] [address] Specimen (Source)Anatomical Location / LateralityCollection Method / Volume Collection TimeReceived Time06/23/2017 5:40 PM EDT06/23/2017 5:40 PM EDT Narrative Authorizing ProviderResult TypeResult StatusGregashtabula county medical center Iram [place] DOCHEMISTRY ORDERABLESFinal ResultPerforming OrganizationAddressty/State/ZIP CodePhone Number [address] [phone] [phone] * (ABNORMAL) Electrophoresis Protein, Serum without Reflex to Immunofixation (06/23/2017 5:40 PM EDT)ComponentValueRef RangeTest MethodAnalysis Time Performed AtPathologist SignatureTotal Protein5.8(L)6.4 - 8.3 g/dL06/23/2017 6:22 PM EDTMERCY LABORATORIESAlbumin (calculated)3.53.2 - 5.2 g/dL06/24/2017 4:43 PM EDTMERCY LABORATORIESAlbumin %6045 - 65 %06/24/2017 4:43 PM EDTMERCY YLPRDUBXMTPJPoubi-7-Oztxctfr7.20.1 - 0.4 g/dL06/24/2017 4:43 PM EDTMERCY LABORATORIESAlpha 1 %43 - 6 %06/24/2017 4:43 PM EDTMERCY LABORATORIES Qvksg-1-Rjamepwb0.70.5 - 0.9 g/dL06/24/2017 4:43 PM EDTMERCY LABORATORIESAlpha 2 %126 - 13 %06/24/2017 4:43 PM EDTMERCY LABORATORIESBeta Globulin0.80.5 - 1.1 g/dL06/24/2017 4:43 PM EDTMERCY LABORATORIESBeta Ofmowpp0465 - 19 %06/24/2017 4:43 PM EDTMERCY LABORATORIESGamma Globulin0.70.5 - 1.5 g/dL06/24/2017 4:43 PM EDTMERCY LABORATORIESGamma Globulin %129 - 20 %06/24/2017 4:43 PM EDTMERCY LABORATORIESTotal Prot. Sum5.9(L)6.3 - 8.2 g/dL06/24/2017 4:43 PM EDTMERCY LABORATORIESTotal Prot. Sum,%28485 - 102 %06/24/2017 4:43 PM EDTMERCY LABORATORIESProtein Electrophoresis, SerumSLIGHTLY DECREASED TOTAL PROTEIN WITH A NORMAL ELECTROPHORETIC PATTERN.06/25/2017 7:43 AM EDTMERCY LABORATORIES PathologistELECTRONICALLY SIGNED. DAVID HENNING M.D.06/25/2017 7:43 AM EDTMERCY LABORATORIESComment:[employer] [address] [place] [address] [phone] ([phone] (Source)Anatomical Location / LateralityCollection Method / VolumeCollection TimeReceived Time06/23/2017 5:40 PM EDT06/23/2017 5:40 PM EDT Narrative Authorizing ProviderResult TypeResult StatusTrent Camacho DOIMMUNOLOGY ORDERABLESFinal ResultPerforming OrganizationAddressCity/State/ZIP CodePhone Number Jammin Java [address] [place] [address], [facility] [phone] * (ABNORMAL) HEAVY METALS SCREEN, URINE (06/23/2017 2:50 PM EDT)ComponentValue Ref RangeTest MethodAnalysis TimePerformed AtPathologist SignatureHours KrjdjbqkdFKEWQCS14/16/2018 2:50 PM EDTMERCY LABORATORIESUrine Volume.Random Urine06/23/2017 3:17 PM EDTMERCY LABORATORIESArsenic, Urine /volume<10.00.0 - 34.9 ug/L06/27/2017 8:19 AM EDTARUP LABORATORYComment: (NOTE) INTERPRETIVE INFORMATION: Arsenic, Urine w/ Reflex to Fractionated The ACGIH Biological Exposure Index (JEFFERY) for arsenic in urine is 35 ug/L. The ACGIH JEFFERY is based on the sum of inorganic [...] concentration. Test developed and characteristics determined by [facility]. See Compliance Statement B: [employer] Arsenic, Urine /24 HrNot Applicable0.0 - 49.9 ug/d006/27/2017 8:19 AM EDTARUP LABORATORYArsenic, Urine ratio CreatinineNot Applicable0.0 - 29.9 ug/g HELP DESK AGENT 06/27/2017 8:19 AM EDTARUP LABORATORYComment: (NOTE) Unable [...] and abdominal pain. See Compliance Statement B: [employer] Cadmium, Urine /24 HrNot Applicable0.0 - 3.2 ug/d006/27/2017 8:19 AM EDTARUP LABORATORYCadmium, Urine ratio CreatinineNot Applicable0.0 - 3.2 ug/g HELP DESK AGENT 06/27/2017 8:19 AM EDTARUP LABORATORYComment: (NOTE) Unable [...] copper. Test developed and characteristics determined by [facility]. See Compliance Statement B: [employer] Copper, Urine /24 HrNot Applicable3.0 - 45.0 ug/d006/27/2017 8:19 AM EDTARUP LABORATORYCopper, Urine ratio Ugoqrlajbi70.610.0 - 45.0 ug/g CRT06/27/2017 8:19 AM EDTARUP LABORATORYLead, Urine /volume<5.00.0 - 1.4 ug/L06/27/2017 8:19 AM EDT [facility] LABORATORYComment: (NOTE) INTERPRETIVE INFORMATION: Lead, Urine Quantification of urine excretion rates before or after chelation therapy has been used as an indicator of lead exposure. Urinary excretion of >125 mg of lead per 24 hours is usually associated with related evidence of lead toxicity. See Compliance Statement B: [employer] Lead, Urine /24 HrNot Applicable0.0 - 8.1 [...] therapy. Test developed and characteristics determined by [facility]. See Compliance Statement B: [employer] Mercury, Urine /24 HrNot Applicable0.0 - 2.9 ug/d006/27/2017 8:19 AM EDTARUP LABORATORYMercury, Urine /G CRTNot Applicable0.0 - 20.0 ug/g CRT06/27/2017 8:19 AM EDTARUP LABORATORYComment: (NOTE) Unable to accurately calculate the creatinine normalized result due to a low per volume result. Zinc, Urine /tzaqug68.415.0 - 120.0 ug/dL06/27/2017 8:19 AM EDTARUP LABORATORY Zinc, Urine /24 HrNot Ocokgqpxpc704.0 - 1200.0 ug/d006/27/2017 8:19 AM EDTARUP LABORATORYZinc, Urine ratio Creatinine1,039.5(H)110.0 - 750.0 ug/g CRT06/27/2017 8:19 AM EDTARUP LABORATORYComment: (NOTE) INTERPRETIVE INFORMATION: Zinc, Urine Zinc is predominantly eliminated in the feces. Elevated urine zinc may suggest excessive zinc supplementation but should be interpreted with a corresponding serum zinc concentration. Test developed and characteristics determined by [facility]. See Compliance Statement B: [employer] Creatinine Urine /cyyewp40lh/dL06/27/2017 8:19 AM EDTARUP LABORATORYCreatinine Urine /24 HrNot Zgzoxrfrau898 - 1600 mg/d006/27/2017 8:19 AM EDTARUP LABORATORY Comment: (NOTE) Performed by [facility], [address] [place] [address] [email or web address], Papo Bradley MD, Lab. Director [employer] [address] [place] [address] ([phone] Specimen (Source)Anatomical Location / LateralityCollection Method / Volume Collection TimeReceived TimeURINE SPECIMEN OBTAINED BY SINGLE CATHETERIZATION OF URINARY BLADDER / Mzrhzxt3106/23/2017 2:50 PM EDT06/23/2017 2:50 PM EDT Narrative Authorizing ProviderResult TypeResult StatusBrana SALGADO ORDERABLESFinal ResultPerforming OrganizationAddressCity/State/ZIP CodePhone Number KATIE BOWER [address] [place] [address], [facility] [phone] [facility] [address] [place] [address], [facility] [phone] * (ABNORMAL) Axis / lambda light chains, urine, 24 hour (06/23/2017 2:00 PM EDT)ComponentValueRef RangeTest MethodAnalysis TimePerformed AtPathologist SignatureHours Jmlnsvryo7410/17/2018 4:38 PM EDTMERCY LABORATORIESUrine Volume 2,7617306/24/2017 4:43 PM EDTMERCY LABORATORIESProtein, Total Fodis3798 - 140 mg/d006/27/2017 3:01 AM EDTARUP LABORATORYComment: (NOTE) INTERPRETIVE INFORMATION: Total Protein Total urinary protein is determined nephelometrically by adding the albumin and Axis and/or Lambda light chains. This value may not agree with the total protein as determined by chemical methods, which characteristically underestimate urinary light chains. Albumin, UTlzqekaoJzlfqgys26/20/2018 3:01 AM EDTARUP LABORATORYAlpha 1, Urine DetectedNone Oyuhebya49/20/2018 3:01 AM EDTARUP LABORATORYAlpha 2, UrineDetected None Mjivqqeo63/20/2018 3:01 AM EDTARUP LABORATORYBeta, UrineDetectedNone Tduxtubn24/20/2018 3:01 AM EDTARUP LABORATORYGamma Globulin, UrineDetectedNone Lpzxjvfy48/20/2018 3:01 AM EDTARUP LABORATORYKappa Lambda Urine InterpSee Note 06/27/2017 3:01 AM EDTARUP LABORATORYComment: (NOTE) Urine MO[place]STO shows a polyclonal increase in free kappa and/or free lambda light chains. No monoclonal free light chains (Bence Angel Protein) are detected. Free Axis Lt Chains,Ur2.78(H)0.14 - 2.42 mg/dL06/27/2017 3:01 AM EDTARUP LABORATORYUrine Free Axis EXCRETION/Day58.82mg/d006/27/2017 3:01 AM EDTARUP LABORATORYFree Lambda Lt Chains,Ur0.170.02 - 0.67 mg/dL06/27/2017 3:01 AM EDT ARUP LABORATORYFree Ur Lambda Excretion/Day3.60mg/d006/27/2017 3:01 AM EDTARUP LABORATORYKappa/Lambda Ratio,U16.35(H)2.04 - 10.37 ratio06/27/2017 3:01 AM EDT [facility] LABORATORYComment: (NOTE) Performed by [facility], [address] [place] [address] [email or web address], Papo Bradley MD, [place] [address] Specimen (Source)Anatomical Location / LateralityCollection Method / Volume Collection TimeReceived TimeUrine (substance)URINE SPECIMEN OBTAINED BY SINGLE CATHETERIZATION OF URINARY BLADDER / Maqcqld9806/23/2017 2:00 PM EDT06/24/2017 4:37 PM EDT Narrative Authorizing ProviderResult TypeResult StatusBruce Ila SALGADO ORDERABLESFinal ResultPerforming OrganizationAddressCity/State/[place] [address], [facility] [phone] [phone] * XR KNEE LEFT (3 VIEWS) (06/22/2017 [...] acute trauma. Authorizing ProviderResult TypeResult StatusJerrod Strickland [facility] ORDERABLESFinal Result * XR HIP [...] theleft hip. Authorizing ProviderResult TypeResult StatusJerrod Strickland [facility] ORDERABLESFinal Result * XR LUMBAR [...] Authorizing ProviderResult TypeResult StatusJerrod Saritha Marco A [facility] ORDERABLESFinal Result * [place] ESOPHAGRAM [...] MethodAnalysis TimePerformed AtPathologist Signature Surgical Pathology Report(NOTE) [id number] [facility] ??LABORATORIES CONSULTING PATHOLOGISTS [facility] ANATOMIC PATHOLOGY [address] [place] [address]. ??[place], [place] [address] SURGICAL PATHOLOGY CONSULTATION Patient Name: CAR[facility]E [facility] Rec: [id number] Path Number: [id number] Collected: 06/21/2017 Received: 06/21/2017 Reported: 06/22/2017 12:18 [...] intestinal metaplasia, dysplasia or malignancy.06/22/2017 12:00 AM EDTMLocaModa LABORATORIESSpecimen (Source)Anatomical Location / LateralityCollection Method / VolumeCollection TimeReceived Time06/21/2017 2:42 PM EDT06/21/2017 2:42 PM EDT Narrative Authorizing ProviderResult TypeResult StatusTrent Camacho DO PATHOLOGY/CYTOLOGY ORDERABLESFinal ResultPerforming OrganizationAddress City/State/ZIP CodePhone Number [employer] Java [address] [place] [address], [facility] [phone] * HCG, SERUM, QUALITATIVE (06/21/2017 9:00 AM EDT)ComponentValueRef RangeTest MethodAnalysis TimePerformed AtPathologist SignaturePreg, SerumNEGATIVENEG 06/21/2017 9:35 AM EDNovia CareClinics LABORATORIESComment: Specimens with hCG levels near the threshold of the test (25 mIU/mL) may give a negative or indeterminate result. ??In such cases, another test should be performed with a new specimen in 48-72 hours. ??If early is suspected clinically in this setting, correlation with quantitative serum b-hCG level is suggested. ? [employer] has confirmed the use of plasma for this test. This has not been cleared or approved by the U.S. Food and Drug Administration. ??The FDA has determined that such clearance is not necessary. [employer] [address] [place] [address] Specimen (Source)Anatomical Location / LateralityCollection Method / Volume Collection TimeReceived TimeBLOOD SPECIMEN / Nwdqdzk5106/21/2017 9:00 AM EDT 06/21/2017 9:08 AM EDT Narrative Authorizing ProviderResult TypeResult StatusAbdalst. john of god hospitalan Hannah Rosenbergpamellasylvia MDCHEMISTRY ORDERABLESFinal ResultPerforming OrganizationAddressCity/State/ZIP CodePhone Number [facility] [place] [place] [address], [facility] [phone] * XR CHEST STANDARD (2 VW) (05/06/2017 [...] silhouette enlargement. Authorizing ProviderResult TypeResult StatusTrent Camacho [facility] ORDERABLESFinal Result * Nicotine, Blood [...] positive. Test developed and characteristics determined by [facility]. See Compliance Statement B: [employer]/CS Performed by [facility], [address] [place] [address] [email or web address], Papo Bradley MD, Lab. Director Cotinine<2ng/mL05/11/2017 1:11 AM EDTARUP MSEADBWAFD7-OI-Fmaaxpsj<2ng/mL 05/11/2017 1:11 AM EDTAP LABORATORYComment:[facility] [employer] [address] [place] [address] ([phone] (Source)Anatomical Location / Laterality Collection Method / VolumeCollection TimeReceived Time05/06/2017 3:37 PM EDT 05/06/2017 3:50 PM EDT Narrative Authorizing ProviderResult TypeResult StatusTrent Camacho DOCHEMISTRY ORDERABLESFinal ResultPerforming OrganizationAddressCity/State/ZIP CodePhone Number [address] [address], [facility] [phone] [address], [facility] [phone] * ALT (05/06/2017 3:37 PM EDT)ComponentValueRef RangeTest MethodAnalysis Time Performed AtPathologist KnyyulibhZCF480 - 33 U/L05/06/2017 4:24 PM EDTMERCY LABORATORIESComment:[address] [address] ([phone] (Source)Anatomical Location / LateralityCollection Method / VolumeCollection TimeReceived Time05/06/2017 3:37 PM EDT05/06/2017 3:51 PM EDT Narrative Authorizing ProviderResult TypeResult StatusMary Welch MDCHEMISTRY ORDERABLESFinal ResultPerforming OrganizationAddressCity/State/ZIP CodePhone Number [address] [phone] * Alkaline Phosphatase (05/06/2017 3:37 PM EDT)ComponentValueRef RangeTest MethodAnalysis TimePerformed AtPathologist SignatureAlkaline Wcvyvkfapmm8888 - 104 U/L05/06/2017 4:24 PM EDTMERCY LABORATORIESComment:[address] [address] ([phone] (Source)Anatomical Location / LateralityCollection Method / VolumeCollection TimeReceived Time05/06/2017 3:37 PM EDT05/06/2017 3:51 PM EDT Narrative Authorizing ProviderResult TypeResult StatusMary Welch MDCHEMISTRY ORDERABLESFinal ResultPerforming OrganizationAddressCity/State/ZIP CodePhone Number [address] [phone] * Amb External Referral To Psychology (08/24/2016) Narrative Authorizing ProviderResult TypeResult StatusGregnancy Walden [facility] AMB EXT REFERRALSFinal Result * Amb External Referral To Cardiology (08/17/2016) Narrative Authorizing ProviderResult TypeResult StatusGregnancy [facility] AM[facility] EXT REFERRALSEdited Result - Final * US GI ENDOSCOPIC (08/12/2016 9:43 AM EDT)Specimen (Source)Anatomical Location / LateralityCollection Method / VolumeCollection TimeReceived Time08/12/2016 10:38 AM EDT Narrative [facility] - 08/12/2016 11:19 AM EDT Radiology exam is complete. No Radiologist dictation. Please follow up with ordering provider. Authorizing ProviderResult TypeResult StatusSyed Danny Shanks [facility] ORDERABLESFinal ResultPerforming OrganizationAddressCity/State/ZIP CodePhone Number [facility] * POCT urine (08/12/2016 6:35 AM EDT) Only the most recent of2 resultswithin the time period is included. ComponentValueRef RangeTest MethodAnalysis TimePerformed AtPathologist Signature HCG, Urine (POC)YKVSMBSYRZR01/05/2017 10:00 AM EDTMERCY LABORATORIES Comment: Specimens with [...] Narrative Authorizing ProviderResult TypeResult StatusSyed Danny Shanks [facility] TEST ORDERABLESFinal ResultPerforming OrganizationAddressCity/State/ZIP Code Phone Number [employer] [address] [place] [address], [facility] [phone] * Ambulatory referral to Sleep Medicine (07/25/2016) Narrative Authorizing ProviderResult TypeResult StatusGregory R [facility] HospitalPAT[facility] REFERRAL ORDERABLESFinal Result * [place] UGI [...] MethodAnalysis TimePerformed AtPathologist SignatureSpecimen Description .TISSUE, STOMACH OIXSAC8307/10/2016 10:40 AM EDTMHPN LABSpecial RequestsNOT KLJMBTBG81/02/2017 10:40 AM EDTMHPN LABDirect ZtntXRWXEZNU21/03/2017 11:35 AM EDTMHPN LABDirect [facility]amMer[facility] [address] [place] [address] [phone]/11/2016 11:35 AM EDTMHPN LABStatusFINAL 11:35 AM EDTMHPN LABSpecimen (Source)Anatomical Location / Laterality Collection Method / VolumeCollection TimeReceived TimeBody tissue structure (body structure)SPECIMEN FROM STOMACH / Ztewxqi4407/10/2016 10:40 AM EDTComment: Gastric Bx Clotest Pre-op diagnosis: GERD, OBESITY Narrative Authorizing ProviderResult TypeResult StatusGregory R Camacho DOBODY FLUIDS AND STOOLS ORDERABLESFinal ResultPerforming OrganizationAddressCity/State/ZIP Code Phone Number [employer] [address] [place] [address], [facility] [phone] [facility] Visit Diagnoses DiagnosisStart Date Gastroesophageal reflux [...] (BMI) of 60.0 to 69.9 in adult ([facility]) 10/07/2016 Obstructive sleep apnea Obstructive sleep apnea (adult) (pediatric) 10/21/2016 Morbid obesity due to excess calories ([facility]) 10/21/2016 [place] (obstructive sleep apnea) Obstructive sleep apnea (adult) (pediatric) 11/18/2016 Lymphedema Other lymphedema 11/18/2016 Gastroesophageal reflux disease without esophagitis Esophageal reflux 11/18/2016 [place] (obstructive sleep apnea) Obstructive sleep apnea (adult) (pediatric) 12/16/2016 Lymphedema Other lymphedema 12/16/2016 Gastroesophageal reflux disease without esophagitis Esophageal reflux 12/16/2016 Obstructive sleep apnea Obstructive sleep apnea (adult) (pediatric) 01/20/2017 Morbid obesity ([facility]) Morbid obesity 01/20/2017 [place] on CPAP Obstructive [...]
--- OUTSIDE RECORDS SUMMARY | 2025-01-07 20:36 | XMS_ITS | Clinical Summary ---
Author Organization [facility] Address [address] [place] [address] Care Team Providers Care Vocational Education Teacher Name Role Phone Unallocated, [facility] Provider Primary Care Provi kenneth Social History Tobacco UseTypesPacks/DayYears UsedDateSmoking Tobacco: Never Assessed CommentsUnknownSex and Gender InformationValueDate RecordedSex Assigned at Not on fileLegal KjxTqbnyi48/15/2023 7:14 PM EDTGender IdentityNot on fileSexual OrientationNot on file Plan of Treatment Health MaintenanceDue DateLast DoneCommentsCT Orpmbobflbcj77/19/1970Colonoscopy 1969Colorectal Cancer Tvokzaxqk32/19/1970FIT-DNA1969FIT1969 FOBT1969Medicare Annual Wellness (AWV)1969 4327Gisouszslfgkg53/19/1970Pap Smear1990Cervical Cancer Kvjitfjce82/19/2000HPV/Uypjvj0707/28/1999Mammogram 2009COVID-19 Vaccine ( season)2024Influenza Vaccine (#1) , 11/13/2018, 11/12/2016, Additional history exists Pneumococcal Vaccine: Pediatrics (0 to 5 Years) and At-Risk Patients (6 to 64 Years)Aged OutNo longer eligible based on patient's age to complete this topic Insurance * Guarantor: Carrie Fletchercount TypeRelation to PatientDate of BirthPhone Billing AddressPersonal/BqkwnaYobd85/[birth year]/[address] [address] Care Teams Team MemberRelationshipSpecialtyStart DateEnd Date Unallocated, Noms Hom[place], [address] [place] [address] PCP - GeneralFamily Afjrgfoa91/18/24
--- OUTSIDE RECORDS SUMMARY | 2025-01-07 20:36 | XMS_ITS | Clinical Summary ---
Author Organization [facility] Address [address] [place] [address] Care Team Providers Care Glue Specialty Supervisor Name Role Phone Garth Altamirano Primary Care Provider [phone] Ann Marie Mccord MAIL INSERTER Unavailable [phone] Allergies Active AllergyReactionsCriticalityNoted DateCommentsAdhesive Tape-SiliconesRash Low11/08/2018Amoxicillin-Pot CoeszybflphAktyawzx91/22/2023OxycodoneUnknown 06/29/2022 Medications MedicationSigDispense QuantityRefillsLast FilledStart DateEnd DateStatus gabapentin (NEURONTIN) 600 mg tablet Take 600 mg by mouth daily at bedtime.06/23/2022ctive gabapentin (NEURONTIN) 300 mg capsule TAKE 1 CAPSULE BY MOUTH IN THE MORNING AND IN THE BBMCJNQGL46/26/2023ctive metoprolol tartrate, short acting, (LOPRESSOR) 25 mg tablet metoprolol tartrate 25 mg tablet TAKE 1/2 TABLET BY MOUTH TWICE DAILY03/19/2020ctive apixaban (ELIQUIS) 5 mg tab(s) Eliquis 5 mg tablet TAKE 1 TABLET BY MOUTH TWICE A DAY09/13/2018Active solifenacin (VESICARE) 5 mg tablet Take 15 mg by mouth as directed. TAKE 2 TABLETS BY MOUTH IN THE MORNING, AND 1 TABLET IN THE MGSOWSA2006/25/2022ctive Docusate Sodium 250 mg capsule Stool Softener ActiveActive cholecalciferol (VITAMIN D3) 5,000 unit tab Vitamin D3 1000 IU dailyActive omega-3 fatty acids 1,000 mg cap Take by mouth q 24 HR.Active viatmin b complex - vitamin C - ferrous fumarate - folic acid (NEPHRON FA) 66 mg iron- 1,000 mcg tab tablet B Complex 100 sacod, Refill(s) 0 Start Date: 11/16/18 Status: Jpwdvum7611/16/2018 Active calcium carbonate (TUMS ULTRA) 400 mg (1,000 mg) chew Take 1,000 mg by mouth three times daily.Active multivit-minerals/folic acid (ONE-A-DAY WOMEN VITACRAVES ORAL) Take by mouth.Active sennosides (SENOKOT ORAL) Take by mouth.Active Active Problems ProblemNoted DateDiagnosed DateObesity, Class III, BMI >= 40005/04/2023ladder tumor05/04/2023Mild protein-calorie amtggoejhtoc80/11/2024Morbid (severe) obesity due to excess sujgkrkl94/11/2024 Social History Tobacco UseTypesPacks/DayYears UsedDateSmoking Tobacco: NeverSmokeless Tobacco: Never Tobacco Cessation:Counseling Given: Not Answered Alcohol UseStandard Drinks/WeekCommentsNever0 (1 standard drink = 0.6 oz pure alcohol)PHQ-2AnswerDate RecordedPHQ-2 dqzen287/17/2023CommentsNoSex and Gender InformationValueDate RecordedSex Assigned at AfizrAnljsn37/13/2023 2:09 AM EDTLegal FzzNljivk29/28/2023 9:48 AM EDTGender VrzfdqsjSwmmar78/13/2023 2:09 AM EDTSexual OrientationNot on file Last Filed Vital Signs Vital SignReadingTime TakenCommentsBlood Gzkxjzvu628/7806 3:29 PM EDT Qdigl0459 3:29 PM WPEMfbenrfrcmx40.1 ??C (97 ??F)05/04/2023 12:41 PM EDT Respiratory Owta245705/04/2023 12:41 PM EDTOxygen Vmfttemywj07%05/04/2023 12:41 PM EDTInhaled Oxygen Concentration--Rzuwjn826.8 kg (350 lb)07/14/2023 3:29 PM EDT Giuzhe414 cm (6' 2 )12/21/2022 11:56 AM ESTBody Mass Index44.9412/21/2022 11:56 AM EST Plan of Treatment Health MaintenanceDue DateLast DoneCommentsAnxiety Ywlielgvz18/19/1988Depression Ddgbuijbb72/19/1988HIV Nqyjldzaq69/19/1988Hepatitis C Bmnxkesna79/19/1988 Hepatitis B Vaccine (1 of 3 - 19+ 3-dose series)1988Cervical Cancer Uqlimfscq96/19/1991Mammogram Hsusmzlgo07/19/2010CT Enrbbbllsuzl93/19/2015 Cologuard (FIT-DNA)07/27/20140649Hkpwozznlfl24/19/2015Colorectal Cancer Screening 2014Fecal Occult Blood2014Lipid Qzspzhgua45/19/2015Sigmoidoscopy 2014Pneumococcal Vaccine: 50+ (2 of 2 - PCV)Shingrix Vaccine (1 of 2)07/28/2019DTaP,Tdap,Td Vaccine (2 - Td or Tdap)02/08/2023 02/08/2013Medicare Advantage Annual Wellness Visit5Covid-19 Vaccine ( season), 11/21/2021, 01/22/2021, Additional history existsInfluenza Vaccine (#1)/, 11/21/2021, 11/21/2019, Additional history existsDiabetes Eflfllvzs59, 09/06/2018, 09/05/2018, Additional history exists Procedures Procedure NamePriorityDate/TimeAssociated DiagnosisCommentsCOMPREHENSIVE METABOLIC EKZGYYyymcca84/20/2024 10:18 AM EST Abnormal finding of diagnostic imaging Hydronephrosis, unspecified hydronephrosis type from Last 3 Months or Most Recently Relevant to Health Maintenance Results * (ABNORMAL) COMP METABOLIC PANEL (03/30/2023 10:18 AM EST)ComponentValueRef RangeTest MethodAnalysis TimePerformed AtPathologist SignatureProtein, Total 7.66.3 - 8.0 g/dL03/31/2023 12:46 AM ESTPRE[facility] Albumin3.6(L)3.9 - 4.9 g/dL03/31/2023 12:46 AM [facility] LABCalcium, Total10.08.5 - 10.2 mg/dL03/31/2023 12:46 AM [facility] LABBilirubin, Total0.20.2 - 1.3 mg/dL03/31/2023 12:46 AM [facility] LABAlkaline Ldyooweejwl7680 - 123 U/L03/31/2023 12:46 AM [facility] LABAST9(L)13 - 35 U/L03/31/2023 12:46 AM [facility] LJEKDF057 - 38 U/L03/31/2023 12:46 AM [facility] ZQTPxmwyyt5478 - 99 mg/dL03/31/2023 12:46 AM [facility] LABComment: The [place] Diabetes Association (ADA) provides guidance for cutoff [...] Standards of Medical Care in Diabetes 2016, [place] Diabetes Association. Diabetes Care. 2016.39(Suppl 1). BUN23(H)7 - 21 mg/dL03/31/2023 12:46 AM [facility] Creatinine1.01(H)0.58 - 0.96 mg/dL03/31/2023 12:46 AM [facility] KGVTmkuwx156456 - 144 mmol/L03/31/2023 12:46 AM [facility] LABPotassium4.73.7 - 5.1 mmol/L03/31/2023 12:46 AM [facility] JOTOawskarf322(H)97 - 105 mmol/L03/31/2023 12:46 AM [facility] ZRHCG38013 - 30 mmol/L03/31/2023 12:46 AM [facility] LABAnion Kxh232 - 18 mmol/L03/31/2023 12:46 AM [facility] LABEstimated Glomerular Filtration Rate67>=60 mL/min/1.73m 03/31/2023 12:46 AM [facility] LABComment:Estimated Glomerular Filtration Rate (eGFR) is calculated [...] VolumeCollection TimeReceived TimeBloodBLOOD SPECIMEN / UnknownVenipuncture / Kdbceli1303/30/2023 10:18 AM EST03/30/2023 10:18 AM EST Narrative Authorizing ProviderResult TypeResult StatusAnna [facility] DRUGLESS PHYSICIAN.CNPLABORATORY Final ResultPerforming OrganizationAddressCity/State/ZIP CodePhone Number [facility] [address] [place] [address], from Last 3 Months or Most Recently Relevant to Health Maintenance Insurance Care Teams Team MemberRelationshipSpecialtyStart DateEnd Date Garth Altamirano [address] [place] [address] PCP - [facility]06/05/22 Ann Marie Mccord CNP [address] [place] [place] [address] [facility]06/19/22
--- OUTSIDE RECORDS SUMMARY | 2025-01-07 20:36 | XMS_ITS | Clinical Summary ---
Author Organization [facility] Address [address] [address] Care Team Providers Care Prism Measurer Name Role Phone Unavailable Primary Care Provider Unavailabl e Active Problems ProblemNoted DateDiagnosed DateParaplegia, pimntvqmnnz40/27/2023 Social History Tobacco UseTypesPacks/DayYears UsedDateSmoking Tobacco: Never AssessedUT Safety & EnvironmentAnswerDate RecordedFear of Current or Ex-PartnerNot on file 04/01/2023Emotionally AbusedNot on file04/01/2023hysically AbusedNot on file 04/01/2023Sexually AbusedNot on file04/01/2023hysically or Sexually AbusedNot on file04/01/2023CommentsUnknownSex and Gender InformationValueDate RecordedSex Assigned at BirthNot on fileLegal QmoXypzjs85/29/2022 11:35 PM EDT Gender IdentityNot on fileSexual OrientationNot on file Last Filed Vital Signs Vital SignReadingTime TakenCommentsBlood Ogdsxgrw673/67003/25/2020 8:42 AM EST Kezoy191103/25/2020 8:42 AM QWBKochvkxglug89.5 ??C (97.7 ??F)01/29/2020 9:17 AM ESTRespiratory Rate--Oxygen Saturation--Inhaled Oxygen Concentration--Alnlqk739 kg (276 lb)03/25/2020 8:41 AM KJBMmparn851 cm (6' 2 )03/25/2020 8:41 AM ESTBody Mass Index35.44003/25/2020 8:41 AM EST Plan of Treatment Health MaintenanceDue DateLast DoneCommentsCT Iajvotbsceve18/19/1970Colonoscopy 1969Colorectal Cancer Tprleevhc89/19/1970FIT-DNA1969FIT1969 FOBT1969Medicare Annual Wellness (AWV)1969 6792Xavqtwtwgglmz80/19/1970 Depression Kvyawjkyv80/19/1982Hepatitis B Vaccines (1 of 3 - 19+ 3-dose series) 1988Pap Smear1990Cervical Cancer Aojqkmxnw11/19/2000HPV/Cotest 07/28/19998223Ocvjjsxsr24/19/2010Zoster Vaccines (1 of 2)07/28/2019Adult Tetanus /02/2013COVID-19 Vaccine [...] Lenora Fletcher TypeRelation to PatientDate of BirthPhoneBilling AddressPersonal/WetokhQrjc22/[birth year][address] [address]
--- OUTSIDE RECORDS SUMMARY | 2025-01-07 20:36 | XMS_ITS | Patient Health Record ---
Author Organization [facility] Address [address] [place], [place] [address] [place], [place] [address] Care Team Providers Care Plunger Scoop Operator Name Role Phone Camacho Trent DODGE Primary Care Provider Stone [place] MD Steven Unavailable [phone] Reason For Referral No Information Plan Of Treatment No Information Insurance Providers Payer Name Payer Address Payer Phone Subscriber Number Group Number Insured Name Patient Relationship to Insured Coverage Start Date Coverage End Date [facility] [address] [place] [id number] Sharri Fletcher - patient is the insured
--- NOTE | 2025-01-07 21:31 | PC.NURSE ---
i gave this patient verbal and written discharge orders and this patient voices yes to understanding these. at time of discharge this patient voices no concerns, needs and shows no signs of distress
== END 2025-01-07 21:31 | disposition home or self-care (01) ==
PROVIDERS: Emergency Provider Student in an Organized Health Care Education/Training Program; PCP Family Medicine
DX: S80.11XA Contusion of right lower leg, initial encounter (principal); M25.571 Pain in right ankle and joints of right foot; M79.661 Pain in right lower leg; Z79.01 Long term (current) use of anticoagulants; X50.1XXA Overexertion from prolonged static or awkward postures, initial encounter
CPT/HCPCS: 73590; 73610; 99283

== ENCOUNTER 2025-01-26 11:33 | Outpatient (REF) | payer MEDICARE, SELFPAY ==
--- OUTSIDE RECORDS SUMMARY | 2025-01-26 11:37 | XMS_ITS | Clinical Summary ---
Author Organization [facility] Address [address] [facility] [place] [address] Care Team Providers Care Yarn Twister Name Role Phone Unavailable Primary Care Provider Unavailabl e Source Comments The following information is NOT included in Care Everywhere downloads:Psychiatric notes, ECG results, Cardiac Rehab notes, Pulmonary Function notes, data from SmartForms (includes but not limited toPregnancy data,audiograms, eye exams, pre-surgical evaluation notes, well-child exam data).[facility] Immunizations ImmunizationAdministration DatesNext DueInfluenza, injectable, quadrivalent, preservative (PYD=740)11/21/2019,11/13/2018,11/12/2016Influenza, injectable, quadrivalent, preservative free (FJV=993)12/18/2015Influenza, injectable, trivalent, preservative (XGX=479)12/21/2013,11/30/2012,12/23/2011,11/25/2010 Influenza, novel Q2V0-74, injectable, preservative-free (YGA=511)02/27/2009 Influenza, whole virus (CVX=16)12/13/2007Pneumococcal polysaccharide 23 Valent (PPSV23) (CVX=33)12/14/2007Tdap (JEV=305)02/08/2013 Social History Tobacco UseTypesPacks/DayYears UsedDateSmoking Tobacco: Never Assessed CommentsUnknownSex and Gender InformationValueDate RecordedSex Assigned at Not on fileLegal YfhHyevlu30/28/2020 8:31 PM EDTGender IdentityNot on fileSexual OrientationNot on file Plan of Treatment Health MaintenanceDue DateLast BksfUaddvlhiMmngnzwameg31/19/1970HIV Test 1984Hepatitis C Gzswwegr45/19/1988Hepatitis A (HAV) Vaccine (optional start 19+ years)1988Hepatitis B (HBV) Vaccine (1 of 3 - 19+ 3-dose series) 1988Pap Smear07/27/19901330Ymfhymhwvzu08/19/2010CRC Jnkiocdyu83/19/2015 Bssyswhczxf22/19/2015Cologuard (Stool DNA)2014FIT2014Pneumococcal Vaccine(s) (50+ yrs) (2 of 2 - PCV)/06/2007Shingles (RZV) Vaccine (1 of 2)07/28/2019Annual Wellness Visit (G0438)08/09/2019Tetanus (Td or Tdap) Kakkiic81/01/00768902/08/2013COVID-19 Vaccine (2024- season)2024 01/22/2021, 05/25/2020, 04/27/2020Influenza Vaccine (#1)/, 11/13/2018, 11/12/2016, Additional history existsTdap SapbmywWwjjbojbq03/01/2014 Insurance
--- OUTSIDE RECORDS SUMMARY | 2025-01-26 11:37 | XMS_ITS | Clinical Summary ---
Author Organization [facility] Address [address] [place] [address] Care Team Providers Care Director Of Coding Name Role Phone Garth Altamirano Primary Care Provider [phone] Ann Marie Mccord ROLL INSPECTOR Unavailable [phone] Allergies Active AllergyReactionsCriticalityNoted DateCommentsAdhesive Tape-SiliconesRash Low11/08/2018Amoxicillin-Pot QixftqresbvCvrfebul70/22/2023OxycodoneUnknown 06/29/2022 Medications MedicationSigDispense QuantityRefillsLast FilledStart DateEnd DateStatus gabapentin (NEURONTIN) 600 mg tablet Take 600 mg by mouth daily at bedtime.06/23/2022ctive gabapentin (NEURONTIN) 300 mg capsule TAKE 1 CAPSULE BY MOUTH IN THE MORNING AND IN THE DAXLGMSZB69/26/2023ctive metoprolol tartrate, short acting, (LOPRESSOR) 25 mg tablet metoprolol tartrate 25 mg tablet TAKE 1/2 TABLET BY MOUTH TWICE DAILY03/19/2020ctive apixaban (ELIQUIS) 5 mg tab(s) Eliquis 5 mg tablet TAKE 1 TABLET BY MOUTH TWICE A DAY09/13/2018Active solifenacin (VESICARE) 5 mg tablet Take 15 mg by mouth as directed. TAKE 2 TABLETS BY MOUTH IN THE MORNING, AND 1 TABLET IN THE MWKUQWH5906/25/2022ctive Docusate Sodium 250 mg capsule Stool Softener ActiveActive cholecalciferol (VITAMIN D3) 5,000 unit tab Vitamin D3 1000 IU dailyActive omega-3 fatty acids 1,000 mg cap Take by mouth q 24 HR.Active viatmin b complex - vitamin C - ferrous fumarate - folic acid (NEPHRON FA) 66 mg iron- 1,000 mcg tab tablet B Complex 100 sacod, Refill(s) 0 Start Date: 11/16/18 Status: Qyvnzzh6511/16/2018 Active calcium carbonate (TUMS ULTRA) 400 mg (1,000 mg) chew Take 1,000 mg by mouth three times daily.Active multivit-minerals/folic acid (ONE-A-DAY WOMEN VITACRAVES ORAL) Take by mouth.Active sennosides (SENOKOT ORAL) Take by mouth.Active Active Problems ProblemNoted DateDiagnosed DateObesity, Class III, BMI >= 40005/04/2023ladder tumor05/04/2023Mild protein-calorie lclywsywikdo09/11/2024Morbid (severe) obesity due to excess lpaajjkv31/11/2024 Social History Tobacco UseTypesPacks/DayYears UsedDateSmoking Tobacco: NeverSmokeless Tobacco: Never Tobacco Cessation:Counseling Given: Not Answered Alcohol UseStandard Drinks/WeekCommentsNever0 (1 standard drink = 0.6 oz pure alcohol)PHQ-2AnswerDate RecordedPHQ-2 lqfxe936/17/2023CommentsNoSex and Gender InformationValueDate RecordedSex Assigned at MahmtRamliy16/13/2023 2:09 AM EDTLegal YnlYxbiiy93/28/2023 9:48 AM EDTGender XutdoaxmDyncwf41/13/2023 2:09 AM EDTSexual OrientationNot on file Last Filed Vital Signs Vital SignReadingTime TakenCommentsBlood Qkuezqoh540/7806 3:29 PM EDT Pdjut3465 3:29 PM GAGDcswzrqdqau89.1 ??C (97 ??F)05/04/2023 12:41 PM EDT Respiratory Fkgf308905/04/2023 12:41 PM EDTOxygen Suvgmqtqry70%05/04/2023 12:41 PM EDTInhaled Oxygen Concentration--Inyeav989.8 kg (350 lb)07/14/2023 3:29 PM EDT Fhdypm697 cm (6' 2 )12/21/2022 11:56 AM ESTBody Mass Index44.9412/21/2022 11:56 AM EST Plan of Treatment Health MaintenanceDue DateLast DoneCommentsAnxiety Vpnpklhrl42/19/1988Depression Onepepnbd53/19/1988HIV Lnsdkgnmm86/19/1988Hepatitis C Qbhqrzqtz54/19/1988 Hepatitis B Vaccine (1 of 3 - 19+ 3-dose series)1988Cervical Cancer Lzjmqsdsm64/19/1991Mammogram Ufxughoeq67/19/2010CT Lvfbeabhggob95/19/2015 Cologuard (FIT-DNA)07/27/20142956Rhuhwfjicpo50/19/2015Colorectal Cancer Screening 2014Fecal Occult Blood2014Lipid Fzqbhltvi24/19/2015Sigmoidoscopy 2014Pneumococcal Vaccine: 50+ (2 of 2 - PCV)RSV Vaccine (1 - Risk 50-74 years 1-dose series)07/28/2019Shingrix Vaccine (1 of 2) 07/28/2019DTaP,Tdap,Td Vaccine (2 - Td or Tdap)/02/2013Medicare Advantage Annual Wellness Visit5Covid-19 Vaccine ( season) , 11/21/2021, 01/22/2021, Additional history existsInfluenza Vaccine (#1)/, 11/21/2021, 11/21/2019, Additional history existsDiabetes Evwtiqjkg53, 09/06/2018, 09/05/2018, Additional history exists Procedures Procedure NamePriorityDate/TimeAssociated DiagnosisCommentsCOMPREHENSIVE METABOLIC OCLYLYxxrcts72/20/2024 10:18 AM EST Abnormal finding of diagnostic imaging Hydronephrosis, unspecified hydronephrosis type from Last 3 Months or Most Recently Relevant to Health Maintenance Results * (ABNORMAL) COMP METABOLIC PANEL (03/30/2023 10:18 AM EST)ComponentValueRef RangeTest MethodAnalysis TimePerformed AtPathologist SignatureProtein, Total 7.66.3 - 8.0 g/dL03/31/2023 12:46 AM [facility] Albumin3.6(L)3.9 - 4.9 g/dL03/31/2023 12:46 AM [facility] LABCalcium, Total10.08.5 - 10.2 mg/dL03/31/2023 12:46 AM [facility] LABBilirubin, Total0.20.2 - 1.3 mg/dL03/31/2023 12:46 AM [facility] LABAlkaline Adeglcwaedy1005 - 123 U/L03/31/2023 12:46 AM [facility] LABAST9(L)13 - 35 U/L03/31/2023 12:46 AM [facility] WXJFNW667 - 38 U/L03/31/2023 12:46 AM [facility] FPWUqepusp7586 - 99 mg/dL03/31/2023 12:46 AM [facility] LABComment: The [place] Diabetes Association (ADA) provides guidance for cutoff [...] Standards of Medical Care in Diabetes 2016, [place] Diabetes Association. Diabetes Care. 2016.39(Suppl 1). BUN23(H)7 - 21 mg/dL03/31/2023 12:46 AM [facility] Creatinine1.01(H)0.58 - 0.96 mg/dL03/31/2023 12:46 AM [facility] DCKNwmhcu686355 - 144 mmol/L03/31/2023 12:46 AM [facility] LABPotassium4.73.7 - 5.1 mmol/L03/31/2023 12:46 AM [facility] WLTHpnlaabq322(H)97 - 105 mmol/L03/31/2023 12:46 AM [facility] HZROO82379 - 30 mmol/L03/31/2023 12:46 AM [facility] LABAnion Fhb648 - 18 mmol/L03/31/2023 12:46 AM [facility] LABEstimated Glomerular Filtration Rate67>=60 mL/min/1.73m 03/31/2023 12:46 AM [facility] LABComment:Estimated Glomerular Filtration Rate (eGFR) is calculated [...] VolumeCollection TimeReceived TimeBloodBLOOD SPECIMEN / UnknownVenipuncture / Vcslacq4203/30/2023 10:18 AM EST03/30/2023 10:18 AM EST Narrative Authorizing ProviderResult TypeResult StatusAnna Worthams CHARGE ENTRY CLERK.CNPLABORATORY Final ResultPerforming OrganizationAddressCity/State/ZIP CodePhone Number [facility] [address] [place] [address], from Last 3 Months or Most Recently Relevant to Health Maintenance Insurance Care Teams Team MemberRelationshipSpecialtyStart DateEnd Garth Altamirano [address] [place] [phone] PCP - [facility]06/05/22 Ann Marie Mccord CNP [address] [place] [address] [facility]06/19/22
--- OUTSIDE RECORDS SUMMARY | 2025-01-26 11:37 | XMS_ITS | Clinical Summary ---
Author Organization [facility] Address [address] [place] [address] Care Team Providers Care Silo Man Name Role Phone Unavailable Primary Care Provider Unavailabl e Active Problems ProblemNoted DateDiagnosed DateParaplegia, vgevuroljtv00/27/2023 Social History Tobacco UseTypesPacks/DayYears UsedDateSmoking Tobacco: Never AssessedUT Safety & EnvironmentAnswerDate RecordedFear of Current or Ex-PartnerNot on file 04/01/2023Emotionally AbusedNot on file04/01/2023hysically AbusedNot on file 04/01/2023Sexually AbusedNot on file04/01/2023hysically or Sexually AbusedNot on file04/01/2023CommentsUnknownSex and Gender InformationValueDate RecordedSex Assigned at BirthNot on fileLegal NkwHlqqar80/29/2022 11:35 PM EDT Gender IdentityNot on fileSexual OrientationNot on file Last Filed Vital Signs Vital SignReadingTime TakenCommentsBlood Omnfbnws898/67003/25/2020 8:42 AM EST Kfycv918503/25/2020 8:42 AM TJDXmazgleubhs62.5 ??C (97.7 ??F)01/29/2020 9:17 AM ESTRespiratory Rate--Oxygen Saturation--Inhaled Oxygen Concentration--Hmbxqj233 kg (276 lb)03/25/2020 8:41 AM UKVXfiyvo807 cm (6' 2 )03/25/2020 8:41 AM ESTBody Mass Index35.44003/25/2020 8:41 AM EST Plan of Treatment Health MaintenanceDue DateLast DoneCommentsCT Bsdtdzytrrir45/19/1970Colonoscopy 1969Colorectal Cancer Cmexwijim41/19/1970FIT-DNA1969FIT1969 FOBT1969Medicare Annual Wellness (AWV)1969 7628Qmbcpfvjcownh78/19/1970 Depression Lchftooos78/19/1982Hepatitis B Vaccines (1 of 3 - 19+ 3-dose series) 1988Pap Smear1990Cervical Cancer Qqdnqqial84/19/2000HPV/Cotest 07/28/19997595Xhzaewrog98/19/2010Zoster Vaccines (1 of 2)07/28/2019Adult Tetanus /02/2013COVID-19 Vaccine [...] Lenora Fletcher TypeRelation to PatientDate of BirthPhoneBilling AddressPersonal/KxyzvvXdha73[birth year][address] [address]
--- OUTSIDE RECORDS SUMMARY | 2025-01-26 11:37 | XMS_ITS | Patient Health Record ---
Author Organization [facility] Address [address] [place], [place] [address] [place], [place] [address] Care Team Providers Care Camp Dining Room Attendant Name Role Phone Camacho Trent DODGE Primary Care Provider Stone Shanks MD Steven Unavailable [phone] Reason For Referral No Information Plan Of Treatment No Information Insurance Providers Payer Name Payer Address Payer Phone Subscriber Number Group Number Insured Name Patient Relationship to Insured Coverage Start Date Coverage End Date [facility] [address] [place] [id number] Sharri Fletcher - patient is the insured
--- OUTSIDE RECORDS SUMMARY | 2025-01-26 11:37 | XMS_ITS | Clinical Summary ---
Author Organization [facility] Address [address] [place] [address] Care Team Providers Care Manager Collection Name Role Phone Unallocated, [facility] Provider Primary Care Provi kenneth Social History Tobacco UseTypesPacks/DayYears UsedDateSmoking Tobacco: Never Assessed CommentsUnknownSex and Gender InformationValueDate RecordedSex Assigned at Not on fileLegal RreCbsqwd23/15/2023 7:14 PM EDTGender IdentityNot on fileSexual OrientationNot on file Plan of Treatment Health MaintenanceDue DateLast DoneCommentsCT Hzopkvtwbcig86/19/1970Colonoscopy 1969Colorectal Cancer Zoferwapa79/19/1970FIT-DNA1969FIT1969 FOBT1969Medicare Annual Wellness (AWV)1969 1893Akdvfdnvpesvf92/19/1970Pap Smear1990Cervical Cancer Tcifbinvk94/19/2000HPV/Rhvouh6907/28/1999Mammogram 2009COVID-19 Vaccine ( season)2024Influenza Vaccine (#1) , 11/13/2018, 11/12/2016, Additional history exists Pneumococcal Vaccine: Pediatrics (0 to 5 Years) and At-Risk Patients (6 to 64 Years)Aged OutNo longer eligible based on patient's age to complete this topic Insurance * Guarantor: Carrie Fletchercount TypeRelation to PatientDate of BirthPhone Billing AddressPersonal/XrtdngHthf10/19/[address] [address] Care Teams Team MemberRelationshipSpecialtyStart DateEnd Date Unallocated, [facility] [place], [address] [place] [address] PCP - GeneralFamily Awoagmlf41/18/24
--- OUTSIDE RECORDS SUMMARY | 2025-01-26 11:37 | XMS_ITS | Clinical Summary ---
Author Organization [facility] Address [address] [place] [address] Phone Care Team Providers Care Transition Advisor Name Role Phone Unavailable Primary Care Provider Unavailabl e Social History Tobacco UseTypesPacks/DayYears UsedDateSmoking Tobacco: Never Assessed CommentsUnknownSex and Gender InformationValueDate RecordedSex Assigned at Not on fileLegal EyjQgythe41/26/2022 1:59 PM ESTGender IdentityNot on fileSexual OrientationNot on file Plan of Treatment Not on file
[2025-01-26 11:47] LABS: Glucose Urine UA NEGATIVE (NEGATIVE)
[2025-01-26 15:13] LABS: C. Difficile PCR NEGATIVE
[2025-01-29 11:08] LABS: Rotavirus Ag, EIA Negative (Negative)
== END 2025-01-26 11:34 | disposition home or self-care (01) ==
LOC: LAB 11:33
PROVIDERS: PCP Family Medicine; Visit Provider Family Medicine
DX: N39.0 Urinary tract infection, site not specified (principal); R19.7 Diarrhea, unspecified
CPT/HCPCS: 36415; 81003; 83631; 87086; 87088; 87186; 87425; 87493; G0328